=== PATIENT | male | born 1960 | race Caucasian/White ===

== ENCOUNTER → 2017-09-11 10:12 | Outpatient (CLI) | payer OTHER, SELFPAY ==
[2017-09-11 13:06] LABS: Absolute Lymphocyte Count 1.93 X10^3/ul (0.83-4.51); Absolute Neutrophil Count 3.1 X10^3/uL (2.0-7.7); Basophil# 0.01 X10^3/uL; Basophil% 0.2 % (0-1); Eosinophil# 0.12 X10^3/uL; Eosinophils% 2.1 % (0-5); Hematocrit 45.5 % (40-54); Hemoglobin 15.2 g/dl (13.0-16.5); Lymphocyte # 1.93 X10^3/ul (4.0); Lymphocyte % 33.2 % (19-41); Mean Corp Hgb Conc 33.4 g/gl (32-36); Mean Corpuscular Hgb 31.4 pg (27.0-32.0); Mean Platelet Vol. 9.8 fl (6.2-12.0); Monocyte# 0.65 X10^3/uL; Monocyte% 11.2 % (0-10); Neutrophil % 53.1 % (47-70); Platelet Count 218 K/mm3 (150-450); RBC Distribution Width CV 13.9 % (11.6-14.6); RBC Distribution Width SD 46.4 fl (35.1-43.9); Red Blood Count 4.84 M/mm3 (4.6-6.2); White Blood Count 5.8 K/mm3 (4.4-11.0)
[2017-09-11 13:10] LABS: POSITIVE COUNT NO; POSITIVE DIFFERENTIAL NO; POSITIVE MORPHOLOGY NO
[2017-09-11 13:28] LABS: ALB/GLOB Ratio 1.1 RATIO (0.9-2.4); AST(SGOT) 15 U/L (15-37); Alanine Aminotransfer ALT/SGPT 32 U/L (16-61); Albumin, Serum 3.8 g/dL (3.2-5.0); Alkaline Phosphatase 111 U/L (45-117); Anion Gap 7 (5-15); BUN 14 mg/dL (7-18); Calcium,Total 8.7 mg/dL (8.5-10.1); Chloride 107 mmol/L (98-107); Creatinine, Serum 0.88 mg/dL (0.70-1.30); EST Glomerular Filtration Rate 95 mL/min (>60); Est Glom Filt Rate - Afr Amer 115 mL/min (>60); Globulin 3.6 g/dL (2.2-4.2); Glucose 85 mg/dL (74-106); Potassium 4.2 mmol/L (3.5-5.1); Protein, Total 7.4 g/dL (6.4-8.2); Sodium Level 141 mmol/L (136-145); Thyroid Stim Hormone (TSH) 2.11 uIU/mL (0.358-3.74)
== END ==
LOC: POLAB3 10:13
PROVIDERS: Family Provider Family Medicine Geriatric Medicine; PCP Family Medicine Geriatric Medicine; Visit Provider Family Medicine Geriatric Medicine
DX: R53.83 Other fatigue (principal)
CPT/HCPCS: 36415; 80053; 84443; 85025

== ENCOUNTER 2017-12-03 11:10 | Emergency (ER) | payer OTHER, SELFPAY ==
[2017-12-03 11:11] VITALS: BP 141/70; PULSE 116; RESP 16; TEMP 36.7; O2SAT 96; BMI 33.0
--- NOTE | 2017-12-03 11:20 | CT_ITS ---
STUDY: CT ABDOMEN AND PELVIS WITH CONTRAST - REASON FOR EXAM: Male, 57 years old. Diarrhea. RADIATION DOSAGE (If Supplied By Facility): CTDIvol = ( 17.29 ) mGy, DLP = ( 1143.79 ) mGycm TECHNIQUE: Transaxial images were obtained from the dome of the diaphragm to the symphysis pubis without oral contrast. 100ml ml of Isovue 300 contrast was administered. Multiplanar coronal and sagittal images were reformatted. CT venogram protocol utilized, with delayed images performed during venous phase. Individualized Dose Optimization Techniques Were Used For This CT. COMPARISON: Comparison is made with prior study dated January 22, 2017. FINDINGS: Minimal degree of dependent bibasilar atelectasis. The visualized portions of the heart are within normal limits. Normal liver. There are surgical clips in the gallbladder fossa consistent with a prior cholecystectomy. Pneumobilia seen in the left intrahepatic biliary ducts. This is a normal post cholecystectomy finding. There are multiple benign calcified granulomata of the spleen. Normal pancreas. There is a small, circumscribed, smooth, low attenuation left adrenal mass, consistent with an adrenal adenoma. This measures 2.1 cm. This is unchanged. Normal right adrenal gland. Normal right kidney. 1.8 cm cyst in the posterior superior aspect of the left kidney. There is a small hiatal hernia. Normal small intestine. Diffuse circumferential wall thickening of the colon. This is suggestive of colitis. Fluid filled nondistended small bowel loops are seen more prominent in the region of the terminal ileum. Scattered sigmoid diverticula. The appendix is visualized and appears normal. There is scattered atherosclerotic calcification of the abdominal aorta, without a demonstrated aneurysm. No retroperitoneal adenopathy. IVC is patent. Normal urinary bladder. There is a left-sided inguinal hernia containing adipose tissue. There are diffuse degenerative changes of the visualized lumbar spine. CT/Abdomen/Pelvis W IV Cont ONLY IMPRESSION: Findings suggestive of diffuse colitis. Electronically Signed: Dorian Chauhan MD at 12:39 EDT Tel [phone], Service support ,
--- NOTE | 2017-12-03 11:28 | ED.DCSUM_ITS ---
- ER Visit Summary Date of Service: 12/03/17 Chief Complaint: Abdominal cramping, diarrhea History of Present Illness: The patient is a 57 M E of sick sinus syndrome status post permanent pacemaker placement presents with abdominal cramping. Patient states he began to have loose watery diarrhea 4 days ago. He states he had some chills and myalgias. He is unsure if he had a fever, but has felt hot and cold. Over the past 2 days, he has had some worsening pain into his left lower quadrant. He states it feels similar to when he had diverticulitis before. He states that he was just having increasing discomfort and cannot get the diarrhea stopped. He has no history of C. difficile. He denies any recent antibiotic use. Denies any recent travel. Only past surgical history is inguinal hernia with mesh repair. He is not on anticoagulants. He denies any blood in his bowel movements. Physical Examination: Vital signs reviewed General: Well-nourished, well-developed Head: Normocephalic, atraumatic Eyes: Pupils equal and reactive, extraocular muscles intact Neck, supple, no lymphadenopathy Heart: Regular rate and rhythm Respiratory: No distress, clear bilaterally Abdomen: Soft, mildly tender in the left lower quadrant without rebound or guarding, nondistended, no peritoneal signs Back: Nontender Extremities: Nontender, no edema, no cords Skin: Normal color no rash Neuro: Alert and oriented, no focal or lateralizing deficits Test Results: [] Emergency Department Course and Treatment: The patient has had no rectal bleeding. IV was established. He was given fluids and antiemetics. He declined analgesics. He did have improvement with Toradol. Screening labs do show volume contraction and a mild leukocytosis. Lactate was normal. Patient underwent CT which does show colitis. I did discuss options with the patient. He wants to attempt outpatient therapy. He has not had vomiting. He has been nauseated but is tolerating oral here. He will be started on Cipro and Flagyl given his first dose here. I do feel that he is safe for outpatient therapy. I did day camp counselor him that if things change, his pain worsens, he starts to vomit, he has fever, or is not improving in the next 24-48 hours needs to return immediately. He is comfortable with this plan of care. Treatment Plan: [] Disposition: Charge Impression: 1. Infectious colitis This note was generated with Dragon dictation software. It may contain incorrect words, spelling, and punctuation that were not noted in review of the chart prior to signing ED Disposition - Plan for ED Patient: Chief Complaint: Diarrhea Instructions: ED Gastroenteritis Bacterial Prescriptions: Ondansetron [Zofran Odt] 4 mg PO Q8H PRN PRN #10 tab PRN Reason: Nausea Dicyclomine HCl [Bentyl] 20 mg PO TIDAC #20 cap Metronidazole [Flagyl] 500 mg PO Q8H #21 tab Ciprofloxacin [Cipro] 500 mg PO BID #14 tab Referrals: Josef Garcia Chi, MD [Primary Care Provider] -
[2017-12-03] MEDS: 0.9% Normal Saline 1,000 ML 1000 ML IV (11:35)
[2017-12-03] MEDS: Dicyclomine 20 MG/2 ML Vial IM (11:35)
[2017-12-03] MEDS: Ketorolac 30 MG/ML Syringe IV (11:35)
[2017-12-03] MEDS: Ondansetron 4 MG/2 ML Vial IV (11:38)
[2017-12-03 11:43] LABS: Absolute Lymphocyte Count 2.48 X10^3/ul (0.83-4.51); Absolute Neutrophil Count 10.4 X10^3/uL (2.0-7.7); Basophil# 0.01 X10^3/uL; Basophil% 0.1 % (0-1); Eosinophil# 0.07 X10^3/uL; Eosinophils% 0.5 % (0-5); Lymphocyte # 2.48 X10^3/ul (4.0); Lymphocyte % 18.5 % (19-41); Mean Corp Hgb Conc 35.1 g/gl (32-36); Mean Corpuscular Hgb 31.7 pg (27.0-32.0); Mean Corpuscular Volume 90.4 fL (80-94); Mean Platelet Vol. 9.4 fl (6.2-12.0); Monocyte# 0.35 X10^3/uL; Monocyte% 2.6 % (0-10); Neutrophil % 77.9 % (47-70); Platelet Count 184 K/mm3 (150-450); RBC Distribution Width CV 13.7 % (11.6-14.6); RBC Distribution Width SD 45.1 fl (35.1-43.9); Red Blood Count 5.86 M/mm3 (4.6-6.2); White Blood Count 13.4 K/mm3 (4.4-11.0)
[2017-12-03 11:44] LABS: Hemoglobin 18.6 g/dl (13.0-16.5); POSITIVE COUNT NO; POSITIVE DIFFERENTIAL NO; POSITIVE MORPHOLOGY NO
[2017-12-03 11:55] LABS: AST(SGOT) 19 U/L (15-37); Alanine Aminotransfer ALT/SGPT 37 U/L (16-61); Albumin, Serum 4.4 g/dL (3.2-5.0); Alkaline Phosphatase 161 U/L (45-117); Anion Gap 12 (5-15); BUN 18 mg/dL (7-18); BUN/Creat Ratio 14.9 RATIO (10-20); Calcium,Total 9.1 mg/dL (8.5-10.1); Chloride 104 mmol/L (98-107); Creatinine, Serum 1.21 mg/dL (0.70-1.30); EST Glomerular Filtration Rate 66 mL/min (>60); Est Glom Filt Rate - Afr Amer 79 mL/min (>60); Estimated Creatinine Clearance 52.02 ml/min; Globulin 4.3 g/dL (2.2-4.2); Glucose 136 mg/dL (74-106); Potassium 3.3 mmol/L (3.5-5.1); Protein, Total 8.7 g/dL (6.4-8.2); Sodium Level 135 mmol/L (136-145)
--- NOTE | 2017-12-03 12:36 | ED.RN ---
lactic 2.[address] lab[address] dr mandel aware
[2017-12-03] MEDS: Ciprofloxacin 400 MG/200 ML BAG 200 MG IV (13:02)
[2017-12-03] MEDS: LORazepam 2 MG/ML Syringe 0.5 MG IV (13:02)
[2017-12-03 14:10] VITALS: BP 125/82; PULSE 96; RESP 16; O2SAT 93
[2017-12-03 16:06] LABS: Reflex Lactate? Y
== END 2017-12-03 14:42 | disposition home or self-care (01) ==
LOC: ED 12:21
PROVIDERS: Emergency Provider Emergency Medicine; Family Provider Family Medicine Geriatric Medicine; PCP Family Medicine Geriatric Medicine
DX: A09 Infectious gastroenteritis and colitis, unspecified (principal); K21.9 Gastro-esophageal reflux disease without esophagitis; Z95.0 Presence of cardiac pacemaker; Z87.891 Personal history of nicotine dependence; Z79.891 Long term (current) use of opiate analgesic; Z79.899 Other long term (current) drug therapy
CPT/HCPCS: 74177; 80053; 83605; 85025; 96361; 96365; 96372; 96375; 99283; J7030; Q9967; J0744; J2405

== ENCOUNTER → 2017-12-08 15:55 | Outpatient (CLI) | payer OTHER, SELFPAY ==
[2017-12-08 16:45] LABS: Absolute Lymphocyte Count 1.96 X10^3/ul (0.83-4.51); Absolute Neutrophil Count 3.4 X10^3/uL (2.0-7.7); Basophil# 0.01 X10^3/uL; Basophil% 0.2 % (0-1); Eosinophil# 0.09 X10^3/uL; Eosinophils% 1.5 % (0-5); Hematocrit 40.9 % (40-54); Hemoglobin 13.7 g/dl (13.0-16.5); Lymphocyte # 1.96 X10^3/ul (4.0); Lymphocyte % 32.5 % (19-41); Mean Corp Hgb Conc 33.5 g/gl (32-36); Mean Corpuscular Hgb 30.6 pg (27.0-32.0); Mean Corpuscular Volume 91.3 fL (80-94); Mean Platelet Vol. 9.3 fl (6.2-12.0); Monocyte# 0.58 X10^3/uL; Monocyte% 9.6 % (0-10); Neutrophil # 3.39 X10^3/uL (2.7-7.7); Platelet Count 186 K/mm3 (150-450); RBC Distribution Width CV 13.8 % (11.6-14.6); RBC Distribution Width SD 45.7 fl (35.1-43.9); Red Blood Count 4.48 M/mm3 (4.6-6.2)
[2017-12-08 16:51] LABS: POSITIVE COUNT NO; POSITIVE DIFFERENTIAL NO; POSITIVE MORPHOLOGY NO
[2017-12-08 17:08] LABS: ALB/GLOB Ratio 1.2 RATIO (0.9-2.4); AST(SGOT) 22 U/L (15-37); Alanine Aminotransfer ALT/SGPT 44 U/L (16-61); Albumin, Serum 3.6 g/dL (3.2-5.0); Alkaline Phosphatase 121 U/L (45-117); Anion Gap 9 (5-15); BUN 12 mg/dL (7-18); BUN/Creat Ratio 15.4 RATIO (10-20); Calcium,Total 8.5 mg/dL (8.5-10.1); Chloride 107 mmol/L (98-107); Creatinine, Serum 0.78 mg/dL (0.70-1.30); EST Glomerular Filtration Rate 109 mL/min (>60); Est Glom Filt Rate - Afr Amer 132 mL/min (>60); Glucose 90 mg/dL (74-106); PSA,Total - Annual Screen 0.76 ng/mL (0.00-4.00); Potassium 3.7 mmol/L (3.5-5.1); Protein, Total 6.6 g/dL (6.4-8.2); Sodium Level 142 mmol/L (136-145); Thyroid Stim Hormone (TSH) 1.28 uIU/mL (0.358-3.74)
== END ==
LOC: POLAB3 15:56
PROVIDERS: Family Provider Family Medicine Geriatric Medicine; PCP Family Medicine Geriatric Medicine; Visit Provider Family Medicine Geriatric Medicine
DX: R53.83 Other fatigue (principal); Z12.5 Encounter for screening for malignant neoplasm of prostate
CPT/HCPCS: 36415; 80053; 84153; 84443; 85025; G0103

== ENCOUNTER → 2017-12-18 12:58 | Outpatient (CLI) | payer OTHER, SELFPAY ==
--- NOTE | 2017-12-18 13:04 | CT_ITS ---
STUDY: LOW DOSE CT LUNG CANCER SCREENING REASON FOR EXAM: Male, 57 years old. Smoker for 40 years. Positive PPD. RADIATION DOSAGE (If Supplied By Facility): CTDIvol = ( 3.02 ) mGy, DLP = ( 97.04 ) mGycm TECHNIQUE: No contrast was administered. Low dose technique was utilized (average mAS-38 and kVp 120). 1.25 mm axial source images with a slice interval of 1.25-mm were reconstructed in lung windows. 2.5 mm axial source images with a slice interval of 2.5-mm were reconstructed in lung windows. 5.0 mm axial source images with a slice interval of 5.0-mm were reconstructed in soft tissue windows. Nodule measured using lung windows on PACS and/or independent workstation with automated measurement of minimum and maximum diameter. Nodule measurement reported as average diameter rounded to the nearest whole number. Growth is defined as an increase ins size of greater than 1.5 mm. COMPARISON: None. NODULES: Nodule: No worrisome lung nodule or mass identified. A 6.6 mm calcified nodule/granuloma is present peripherally in the right upper lobe. Emphysema: Probably there is mild emphysema. Medially mild basilar atelectasis demonstrated left side more than the right. Endobronchial lesion: None. Aorta: Within normal limits. Coronary arteries: Atherosclerotic calcification of the LAD. Heart: There is no cardiomegaly. Left subclavian intracardiac pacemaker leads are seen in place. Pulmonary artery: Within normal limits. Mediastinal nodes: Calcified right paratracheal and multiple right hilar lymph nodes are present from old granulomatous process. Other chest and abdominal findings: There is mid/lower thoracic disc/endplate degenerative spondylosis. Increased thoracic kyphosis. Small left renal calculus. Calcified granuloma of the spleen. Fatty liver. CT/Low Dose CT Lung Screening IMPRESSION: Lung-RADS category 2 - Continue annual screening with LDCT in 12 months. IMPORTANT NOTES FOR USE: ACR Lung-RADS Version 1.0 Assessment Categories Release Date: November 14, 2013 Category: Coded 0-4 bases on nodule(s) with highest degree of suspicion. Negative screen is defined as categories 1 and 2; a positive screen is defined as categories 3 and 4. Category 3 and 4A nodules that are unchanged on interval CT should be coded as category 2, and individuals returned to screening in 12 months. Category 4X: Category 3 or 4 nodules with additional imaging findings that increase the suspicion of lung cancer, such as spiculation, GGN that doubles in size in 1 year, enlarged lymph notes, etc. Category Modifiers: S (significant finding unrelated to lung cancer) and C (prior history of treated lung cancer) may be added to the 0-4 Lung-RADS Electronically Signed: Luis Grace MD at 9:51 EDT Tel , Service support ,
--- NOTE | 2017-12-18 13:10 | RAD_ITS ---
STUDY: X-RAY - LUMBAR SPINE REASON FOR EXAM: Male, 57 years old. Pain across the lower back and hips TECHNIQUE: 5 view(s) of the lumbar spine were obtained. COMPARISON: 09/11/2015 FINDINGS: Normal lumbar lordosis. There is no substantial scoliosis. There is a normal alignment of the vertebrae. There is multilevel endplate spondylosis of the lumbar vertebrae. There is loss of disc space at essentially all lumbar levels but particularly at L2-L3, L3-L4, L4-L5 and L5-S1. Moderate facet arthropathy at L4-L5 and L5-S1. There is no demonstrated fracture. There is no demonstrated spondylolysis of the pars interarticulares. There is atherosclerotic calcification of the abdominal aorta without a demonstrated aneurysm. RAD/L/S Spine Min 4 Views IMPRESSION: 1. Multilevel degenerative disc disease and facet arthropathy, similar since 2015 Electronically Signed: Denton Lassiter MD at 8:43 EDT , Service support ,
== END ==
PROVIDERS: Family Provider Family Medicine Geriatric Medicine; PCP Family Medicine Geriatric Medicine; Visit Provider Family Medicine Geriatric Medicine
DX: M54.5 Low back pain (principal); Z87.891 Personal history of nicotine dependence; Z12.2 Encounter for screening for malignant neoplasm of respiratory organs
CPT/HCPCS: 72110; G0297

== ENCOUNTER → 2018-01-08 13:50 | Outpatient (CLI) | payer OTHER, SELFPAY ==
[2018-01-11 15:08] LABS: Alternaria alternata <0.10 kU/L (Class 0); Bermuda Grass <0.10 kU/L (Class 0); Bluegrass, Kentucky <0.10 kU/L (Class 0); Cat Hair/Dander, Standard <0.10 kU/L (Class 0); D farinae Mite 0.15 kU/L (Class 0/I); D pteronyssinus 0.13 kU/L (Class 0/I); Dog Epithelia <0.10 kU/L (Class 0); Elm, American White <0.10 kU/L (Class 0); Immunoglobulin A 165 mg/dL (90-386); Immunoglobulin G 800 mg/dL (700-1600); Immunoglobulin M 72 mg/dL (20-172); Oak, White <0.10 kU/L (Class 0); Plantain, English <0.10 kU/L (Class 0); Ragweed, Short/Common <0.10 kU/L (Class 0)
[2018-01-11 17:43] LABS: Immunoglobulin E 185 IU/mL (0-100)
[2018-01-12 11:59] LABS: Mouse Urine <0.10 kU/L (Class 0)
== END ==
PROVIDERS: Family Provider Family Medicine Geriatric Medicine; PCP Family Medicine Geriatric Medicine; Visit Provider Family Medicine Geriatric Medicine
DX: L20.89 Other atopic dermatitis (principal)
CPT/HCPCS: 36415; 82784; 82785; 86003

== ENCOUNTER → 2018-02-04 20:26 | Outpatient (CLI) | payer MEDICARE, SELFPAY | PROVIDERS: Family Provider Family Medicine Geriatric Medicine; PCP Family Medicine Geriatric Medicine; Visit Provider Family Medicine Geriatric Medicine | DX: G47.30 Sleep apnea, unspecified (principal) | CPT/HCPCS: 95810 ==

== ENCOUNTER → 2018-04-06 16:36 | Outpatient (CLI) | payer MEDICARE, SELFPAY ==
--- NOTE | 2018-04-06 16:40 | RAD_ITS ---
STUDY: X-RAY - LEFT ANKLE REASON FOR EXAM: Male, 57 years old. Trauma TECHNIQUE: 3 view(s) of the ankle. COMPARISON: None. FINDINGS: Normal visualized distal tibia There appears to be very tiny hairline or cortical avulsion fracture of the fibular plafond. Normal medial and lateral malleoli. Normal tibiotalar articulation and ankle mortise. Normal visualized talus. Small plantar calcaneal spur. The visualized subtalar, talonavicular, calcaneocuboid and tarsal articulations are normal. There is soft tissue swelling overlying the lateral malleolus. RAD/Ankle min 3 Views IMPRESSION: Lateral malleolus soft tissue swelling and tiny fracture of the distal fibular plafond Electronically Signed: Jak Gomez MD at 17:41 EDT , Service support ,
== END ==
LOC: RAD 16:38
PROVIDERS: Family Provider Family Medicine Geriatric Medicine; PCP Family Medicine Geriatric Medicine; Visit Provider Family Medicine Geriatric Medicine
DX: M25.572 Pain in left ankle and joints of left foot (principal)
CPT/HCPCS: 73610

== ENCOUNTER → 2018-05-25 17:24 | Outpatient (CLI) | payer MEDICARE, SELFPAY | PROVIDERS: Family Provider Family Medicine Geriatric Medicine; PCP Family Medicine Geriatric Medicine; Referring Provider Family Medicine Geriatric Medicine; Visit Provider Family Medicine Geriatric Medicine | DX: R68.83 Chills (without fever) (principal) | CPT/HCPCS: 87633 ==

== ENCOUNTER → 2018-05-31 10:44 | Outpatient (CLI) | payer MEDICARE, SELFPAY ==
[2018-05-31 12:42] LABS: Absolute Lymphocyte Count 1.52 X10^3/ul (0.83-4.51); Eosinophil# 0.08 X10^3/uL; Eosinophils% 1.3 % (0-5); Hematocrit 43.9 % (40-54); Hemoglobin 14.5 g/dl (13.0-16.5); Lymphocyte # 1.52 X10^3/ul (4.0); Lymphocyte % 24.8 % (19-41); Mean Platelet Vol. 9.7 fl (6.2-12.0); Monocyte# 0.55 X10^3/uL; Neutrophil # 3.97 X10^3/uL (2.7-7.7); Neutrophil % 64.7 % (47-70); Platelet Count 271 K/mm3 (150-450); RBC Distribution Width CV 13.3 % (11.6-14.6); RBC Distribution Width SD 44.1 fl (35.1-43.9); Red Blood Count 4.67 M/mm3 (4.6-6.2); White Blood Count 6.1 K/mm3 (4.4-11.0)
[2018-05-31 12:43] LABS: POSITIVE COUNT NO; POSITIVE DIFFERENTIAL NO; POSITIVE MORPHOLOGY NO
[2018-05-31 13:05] LABS: AST(SGOT) 17 U/L (15-37); Alanine Aminotransfer ALT/SGPT 31 U/L (16-61); Albumin, Serum 3.8 g/dL (3.2-5.0); Alkaline Phosphatase 112 U/L (45-117); Anion Gap 6 (5-15); BUN 15 mg/dL (7-18); BUN/Creat Ratio 16.4 RATIO (10-20); Calcium,Total 8.9 mg/dL (8.5-10.1); Chloride 104 mmol/L (98-107); Creatinine, Serum 0.91 mg/dL (0.70-1.30); EST Glomerular Filtration Rate 91 mL/min (>60); Est Glom Filt Rate - Afr Amer 110 mL/min (>60); Globulin 3.7 g/dL (2.2-4.2); Glucose 104 mg/dL (74-106); Potassium 3.9 mmol/L (3.5-5.1); Protein, Total 7.5 g/dL (6.4-8.2); Sodium Level 139 mmol/L (136-145); Thyroid Stim Hormone (TSH) 1.05 uIU/mL (0.358-3.74)
[2018-05-31 14:51] LABS: Vitamin D,25 Hydroxy 20.8 ng/mL (29.95-100.01)
== END ==
PROVIDERS: Family Provider Family Medicine Geriatric Medicine; PCP Family Medicine Geriatric Medicine; Visit Provider Family Medicine Geriatric Medicine
DX: E55.9 Vitamin D deficiency, unspecified (principal); R53.83 Other fatigue
CPT/HCPCS: 36415; 80053; 82306; 84443; 85025

== ENCOUNTER → 2018-09-16 10:12 | Outpatient (CLI) | payer MEDICARE, SELFPAY ==
[2018-09-16 12:45] LABS: Erythrocyte Sedimentation Rate 33 mm/hr (0-20)
[2018-09-16 12:57] LABS: Absolute Lymphocyte Count 1.49 X10^3/ul (0.83-4.51); Absolute Neutrophil Count 4.3 X10^3/uL (2.0-7.7); Basophil# 0.01 X10^3/uL; Basophil% 0.2 % (0-1); Eosinophil# 0.09 X10^3/uL; Eosinophils% 1.4 % (0-5); Hematocrit 46.8 % (40-54); Hemoglobin 15.1 g/dl (13.0-16.5); Lymphocyte # 1.49 X10^3/ul (4.0); Lymphocyte % 22.4 % (19-41); Mean Corp Hgb Conc 32.3 g/gl (32-36); Mean Corpuscular Hgb 30.1 pg (27.0-32.0); Mean Corpuscular Volume 93.2 fL (80-94); Mean Platelet Vol. 10.2 fl (6.2-12.0); Monocyte# 0.76 X10^3/uL; Monocyte% 11.4 % (0-10); Neutrophil # 4.28 X10^3/uL (2.7-7.7); Neutrophil % 64.4 % (47-70); Platelet Count 252 K/mm3 (150-450); RBC Distribution Width CV 14.4 % (11.6-14.6); RBC Distribution Width SD 48.7 fl (35.1-43.9); Red Blood Count 5.02 M/mm3 (4.6-6.2); White Blood Count 6.6 K/mm3 (4.4-11.0)
[2018-09-16 12:58] LABS: POSITIVE COUNT NO; POSITIVE DIFFERENTIAL NO; POSITIVE MORPHOLOGY NO
[2018-09-16 13:09] LABS: Anion Gap 8 (5-15); BUN 15 mg/dL (7-18); BUN/Creat Ratio 17.3 RATIO (10-20); Calcium,Total 9.1 mg/dL (8.5-10.1); Chloride 105 mmol/L (98-107); Creatinine, Serum 0.87 mg/dL (0.70-1.30); EST Glomerular Filtration Rate 96 mL/min (>60); Est Glom Filt Rate - Afr Amer 117 mL/min (>60); Glucose 100 mg/dL (74-106); Potassium 4.4 mmol/L (3.5-5.1); Rheumatoid Factor < 10.0 IU/mL (<15); Sodium Level 139 mmol/L (136-145)
== END ==
PROVIDERS: Family Provider Family Medicine Geriatric Medicine; PCP Family Medicine Geriatric Medicine; Visit Provider Family Medicine Geriatric Medicine
DX: M10.9 Gout, unspecified (principal)
CPT/HCPCS: 36415; 80048; 85025; 85652; 86140; 86431

== ENCOUNTER 2018-11-18 03:52 | Emergency (ER) | payer MEDICARE, SELFPAY ==
[2018-11-18 03:53] VITALS: BP 155/79; PULSE 90; RESP 18; TEMP 37.1; O2SAT 97; BMI 34.2
--- NOTE | 2018-11-18 04:05 | EKG12_ITS ---
Test Reason : EDEMA Blood Pressure : / mmHG Vent. Rate : 080 BPM Atrial Rate : 080 BPM P-R Int : 128 ms QRS Dur : 086 ms QT Int : 358 ms P-R-T Axes : 032 000 017 degrees QTc Int : 412 ms Normal sinus rhythm Normal ECG Confirmed by VLADISLAV COLEMAN ([id number]), editor department HERVE TRINIDAD ([id number]) on 11/22/2018 1:56:07 PM Referred By: KRISTEN Confirmed By:HUBERT COLEMAN
[2018-11-18] MEDS: HYDROcodone Bitartrate/Apap 5/325 Tablet PO ×2 (04:08→05:01)
[2018-11-18] MEDS: 0.9% Normal Saline 1,000 ML 1000 ML IV (04:14)
[2018-11-18] MEDS: Ketorolac 30 MG/ML Syringe IV (04:14)
[2018-11-18] MEDS: Ondansetron 4 MG/2 ML Vial IV (04:14)
[2018-11-18 04:18] VITALS: BP 107/71; PULSE 79; RESP 17; O2SAT 96
[2018-11-18 04:28] LABS: Absolute Lymphocyte Count 1.69 X10^3/ul (0.83-4.51); Basophil# 0.01 X10^3/uL; Basophil% 0.1 % (0-1); Eosinophil# 0.09 X10^3/uL; Eosinophils% 1.2 % (0-5); Hematocrit 42.5 % (40-54); Hemoglobin 14.2 g/dl (13.0-16.5); Lymphocyte # 1.69 X10^3/ul (4.0); Lymphocyte % 21.7 % (19-41); Mean Corp Hgb Conc 33.4 g/gl (32-36); Mean Corpuscular Hgb 31.2 pg (27.0-32.0); Mean Corpuscular Volume 93.4 fL (80-94); Mean Platelet Vol. 9.2 fl (6.2-12.0); Monocyte# 0.99 X10^3/uL; Monocyte% 12.7 % (0-10); Neutrophil # 4.99 X10^3/uL (2.7-7.7); Neutrophil % 64.2 % (47-70); Platelet Count 217 K/mm3 (150-450); RBC Distribution Width CV 14.9 % (11.6-14.6); RBC Distribution Width SD 49.7 fl (35.1-43.9); Red Blood Count 4.55 M/mm3 (4.6-6.2); White Blood Count 7.8 K/mm3 (4.4-11.0)
[2018-11-18 04:30] LABS: POSITIVE COUNT NO; POSITIVE DIFFERENTIAL NO; POSITIVE MORPHOLOGY NO
[2018-11-18 04:36] LABS: D-Dimer Quantitative (DVT/PE) 0.36 FEU/ug/m (0.27-0.49)
[2018-11-18 04:39] LABS: Anion Gap 8 (5-15); BUN 14 mg/dL (7-18); BUN/Creat Ratio 15.9 RATIO (10-20); Calcium,Total 8.7 mg/dL (8.5-10.1); Chloride 108 mmol/L (98-107); Creatinine, Serum 0.88 mg/dL (0.70-1.30); EST Glomerular Filtration Rate 94 mL/min (>60); Est Glom Filt Rate - Afr Amer 114 mL/min (>60); Estimated Creatinine Clearance 70.66 ml/min; Glucose 116 mg/dL (74-106); Potassium 3.8 mmol/L (3.5-5.1); Sodium Level 143 mmol/L (136-145)
--- NOTE | 2018-11-18 04:57 | ED.DCSUM_ITS ---
- ER Visit Summary Date of Service: 11/18/18 Chief Complaint: Left leg and arm pain History of Present Illness: The patient is a 58 M who presents with intermittent sharp pain to his left lower leg since 4 PM yesterday afternoon. When he was lying in bed tonight he had 3 episodes of similar pain in the left upper arm. He states it feels different than his restless legs. He has not had any recent injury or change in activity. Past history significant for sick sinus syndrome, kidney stones, restless legs. Patient does note recent history of hand pain and swelling. He states his primary care physician thinks it may be some form of a bone cancer from chronic exposure to motor oil on his hands. Physical Examination: Blood pressure is 155/79, otherwise vitals normal. Patient sitting upright in bed no acute distress. Head and neck examination unremarkable. Heart is regular rate and rhythm. Lung sounds are clear. Abdomen is soft nontender. Lower extremity examination was no reproducible tenderness. There is no calf edema or erythema. He has strong distal pulses. Normal range of motion is noted. Upper extremity examination was no reproducible tenderness in the left upper arm. Test Results: CBC and chemistry studies unremarkable. D-dimer is normal at 0.36. EKG is sinus 80 with no sign of acute ischemia. Left tib-fib x-rays are unremarkable. Emergency Department Course and Treatment: Patient is given Toradol, IV fluids, [place]. On repeat evaluation he is resting more comfortably. He states he still has pain. He will follow-up with his primary care physician later today. Treatment Plan: [] Disposition: Discharge Impression: Arthralgias This note was generated with [employer] dictation software. It may contain incorrect words, spelling, and punctuation that were not noted in review of the chart prior to signing ED Disposition - Plan for ED Patient: Disposition: Home or Assisted Living Instructions: ED Joint Pain Prescriptions: Naproxen [Naprosyn] 500 mg PO BID PRN #20 tablet Referrals: Josef Garcia Chi, MD [Primary Care Provider] - As soon as possible
--- NOTE | 2018-11-18 05:00 | RAD_ITS ---
STUDY: X-RAY - LEFT TIBIA AND FIBULA REASON FOR EXAM: Male, 58 years old. Left lower leg pain. No trauma. TECHNIQUE: 2 view(s) of the tibia and fibula were obtained. COMPARISON: Left ankle April 06, 2018. FINDINGS: Normal visualized tibia. Normal visualized fibula. The soft tissue structures are unremarkable. RAD/Tibia & Fibula 2 Views IMPRESSION: Normal x-ray examination of the tibia and fibula. Electronically Signed: Dayron Swift MD at 5:15 EDT , Service support ,
[2018-11-18 05:33] VITALS: BP 111/66; PULSE 68; RESP 18; O2SAT 96
== END 2018-11-18 05:39 | disposition home or self-care (01) ==
PROVIDERS: Emergency Provider Emergency Medicine; Family Provider Family Medicine Geriatric Medicine; PCP Family Medicine Geriatric Medicine
DX: M25.50 Pain in unspecified joint (principal); G25.81 Restless legs syndrome; Z87.442 Personal history of urinary calculi; Z72.0 Tobacco use; Z79.52 Long term (current) use of systemic steroids; Z79.899 Other long term (current) drug therapy
CPT/HCPCS: 73590; 80048; 85025; 85379; 93005; 96361; 96374; 96375; 99284; J7030; J2405

== ENCOUNTER → 2018-12-09 | Outpatient (CLI) | payer MEDICARE, SELFPAY ==
[2018-11-18 03:53] VITALS: BMI 34.2
[2018-12-09 12:39] LABS: Absolute Lymphocyte Count 1.64 X10^3/ul (0.83-4.51); Absolute Neutrophil Count 4.1 X10^3/uL (2.0-7.7); Eosinophils% 1.5 % (0-5); Hematocrit 44.7 % (40-54); Hemoglobin 14.7 g/dl (13.0-16.5); Lymphocyte # 1.64 X10^3/ul (4.0); Lymphocyte % 24.7 % (19-41); Mean Corp Hgb Conc 32.9 g/gl (32-36); Mean Corpuscular Hgb 30.2 pg (27.0-32.0); Mean Platelet Vol. 9.5 fl (6.2-12.0); Monocyte# 0.76 X10^3/uL; Monocyte% 11.4 % (0-10); Neutrophil # 4.14 X10^3/uL (2.7-7.7); Neutrophil % 62.2 % (47-70); Platelet Count 255 K/mm3 (150-450); RBC Distribution Width CV 14.5 % (11.6-14.6); RBC Distribution Width SD 47.4 fl (35.1-43.9); Red Blood Count 4.86 M/mm3 (4.6-6.2); White Blood Count 6.7 K/mm3 (4.4-11.0)
[2018-12-09 12:43] LABS: POSITIVE COUNT NO; POSITIVE DIFFERENTIAL NO; POSITIVE MORPHOLOGY NO
[2018-12-09 13:37] LABS: ALB/GLOB Ratio 1.1 RATIO (0.9-2.4); AST(SGOT) 16 U/L (15-37); Alanine Aminotransfer ALT/SGPT 27 U/L (16-61); Albumin, Serum 3.8 g/dL (3.2-5.0); Alkaline Phosphatase 112 U/L (45-117); Anion Gap 4 (5-15); BUN 11 mg/dL (7-18); BUN/Creat Ratio 11.8 RATIO (10-20); Calcium,Total 9.1 mg/dL (8.5-10.1); Chloride 106 mmol/L (98-107); Cholesterol 199 mg/dL (200); Creatinine, Serum 0.93 mg/dL (0.70-1.30); EST Glomerular Filtration Rate 88 mL/min (>60); Est Glom Filt Rate - Afr Amer 107 mL/min (>60); Globulin 3.6 g/dL (2.2-4.2); Glucose 96 mg/dL (74-106); High Density Lipoprotein 45 mg/dL; PSA,Total - Annual Screen 0.94 ng/mL (0.00-4.00); Protein, Total 7.4 g/dL (6.4-8.2); Sodium Level 137 mmol/L (136-145); Thyroid Stim Hormone (TSH) 1.41 uIU/mL (0.358-3.74); Triglycerides 77 mg/dL; Very Low Density Lipoprotein 15 mg/dL (5-40)
== END | disposition home or self-care (01) ==
LOC: POLAB3 10:49
PROVIDERS: Family Provider Family Medicine Geriatric Medicine; PCP Family Medicine Geriatric Medicine; Visit Provider Family Medicine Geriatric Medicine
DX: E78.5 Hyperlipidemia, unspecified (principal); Z12.5 Encounter for screening for malignant neoplasm of prostate; R53.83 Other fatigue
CPT/HCPCS: 36415; 80053; 80061; 84153; 84443; 85025; G0103

== ENCOUNTER → 2019-01-04 | Outpatient (CLI) | payer MEDICARE, SELFPAY ==
--- NOTE | 2019-01-04 14:31 | RAD_ITS ---
STUDY: X-RAY - RIGHT HAND REASON FOR EXAM: Male, 58 years old. Inflammatory polyarthropathy TECHNIQUE: 3 view(s) of the hand. COMPARISON: Left hand January 04, 2019 and x-ray FINDINGS: Normal radiocarpal articulation. Normal distal radioulnar joint. Normal visualized carpal bones. Normal carpal articulations Normal carpometacarpal articulation of the thumb. Normal second through fifth carpometacarpal joints. There is a hook like osteophyte within the third metacarpal with osteophyte formation at the base of the second and third and fifth metacarpals. There is narrowing and cyst at the fifth digit proximal phalanx. Normal metacarpophalangeal joint of the thumb. Normal interphalangeal joint of the thumb. There is mild degenerative change of the distal interphalangeal joint of the right hand. There is a punctate metallic foreign body within the soft tissues of the distal first digit. There is degenerative change in the metacarpal phalangeal joints as detailed above. There is slight peripheral erosions at the proximal interphalangeal joints and a sclerotic appearance of the joint spaces of the interphalangeal joints. There is second third and fifth primarily small osteophyte formation narrowing of the distal interphalangeal joints. Normal phalanges of the second through fifth fingers. There is slight angulation at the distal interphalangeal joint of the third digit much like the left hand. RAD/Hand Min 3 Views IMPRESSION: As detailed on the left hand impression there is a predominant metacarpophalangeal joint degenerative change with involvement of the interphalangeal joints and incomplete involvement of the distal interphalangeal joints. There is almost no arthritic involvement radiographically visualized of the wrist. Consider psoriatic arthritis, potentially erosive arthritis or possible rheumatoid arthritis in the appropriate laboratory setting. Electronically Signed: Cari Yee MD at 15:08 EDT Tel , Service support ,
--- NOTE | 2019-01-04 14:31 | RAD_ITS ---
STUDY: X-RAY - LEFT HAND REASON FOR EXAM: Male, 58 years old. Inflammatory polyarthropathy TECHNIQUE: 3 view(s) of the hand. COMPARISON: Right hand January 04, 2019 FINDINGS: Normal radiocarpal articulation. Normal distal radioulnar joint. Normal visualized carpal bones. Normal carpal articulations Normal carpometacarpal articulation of the thumb. Normal second through fifth carpometacarpal joints. There is degenerative change in the metacarpophalangeal joints with small osteophyte formation within the metacarpal joint of the third digit. There is a hook like osteophyte within the third digit in the metacarpal. There is minimal degenerative change at the base of the fifth proximal phalanx at the metacarpal. Normal metacarpophalangeal joint of the thumb. There is degenerative change osteophyte formation in the distal interphalangeal joint of the first digit. Normal proximal and distal phalanges of the thumb. Normal metacarpophalangeal joints of the second through fifth fingers. There is disc space narrowing and endplate sclerosis and osteophyte formation at the second third and fifth digits and to a lesser degree the fourth digit. Within the proximal interphalangeal joints there is some central narrowing and sclerosis. Normal phalanges of the second through fifth fingers. There is a sliver of metallic density within the soft tissues of the first digit. RAD/Hand Min 3 Views IMPRESSION: There is a right greater than left metacarpophalangeal joint degenerative appearance. The left hand, Includes metacarpal phalangeal joint degenerative change and distal interphalangeal joint degenerative change. As well as sclerosis and mild narrowing of the interphalangeal joints. There is slight subluxation at the distal interphalangeal joint of the third digit. Differential diagnosis includes psoriatic arthritis, seronegative arthritis, potentially erosive osteoarthritis could have this appearance, although the hallmark of osteoarthritis such is first carpometacarpal joint degenerative change is nearly absent. Could also consider rheumatoid arthritis. Electronically Signed: Cari Yee MD at 15:05 EDT Tel , Service support ,
--- NOTE | 2019-01-04 14:31 | RAD_ITS ---
STUDY: X-RAY - PELVIS REASON FOR EXAM: Male, 58 years old. Inflammatory polyarthropathy TECHNIQUE: One view of the pelvis was obtained. COMPARISON: None. FINDINGS: There is a non-specific bowel gas pattern. Normal visualized soft tissue structures. Normal bilateral iliac wings, sacroiliac joints and visualized sacrum. Normal visualized bilateral superior and inferior pubic rami. Normal pubic symphysis. Normal ischial tuberosities. Normal visualized right femoral head. Normal right acetabulum. Normal right hip joint. There is minimal enthesopathy at the level of the greater trochanter. Normal visualized left femoral head. Normal left acetabulum. Normal left hip joint. There is visualized degenerative change L4-L5 L5-S1. RAD/Pelvis 1 or 2 Views IMPRESSION: Degenerative change of the visualized lumbar spine, otherwise, Normal x-ray examination of the pelvis. Electronically Signed: Cari Yee MD at 14:51 EDT Tel , Service support ,
[2019-01-04 17:52] LABS: Erythrocyte Sedimentation Rate 6 mm/hr (0-20)
[2019-01-04 17:56] LABS: Absolute Lymphocyte Count 2.33 X10^3/ul (0.83-4.51); Absolute Neutrophil Count 4.8 X10^3/uL (2.0-7.7); Basophil# 0.01 X10^3/uL; Basophil% 0.1 % (0-1); Eosinophil# 0.27 X10^3/uL; Eosinophils% 3.3 % (0-5); Hematocrit 43.4 % (40-54); Hemoglobin 14.2 g/dl (13.0-16.5); Lymphocyte # 2.33 X10^3/ul (4.0); Lymphocyte % 28.8 % (19-41); Mean Corp Hgb Conc 32.7 g/gl (32-36); Mean Corpuscular Hgb 31.1 pg (27.0-32.0); Mean Corpuscular Volume 95.2 fL (80-94); Mean Platelet Vol. 9.6 fl (6.2-12.0); Monocyte# 0.62 X10^3/uL; Monocyte% 7.7 % (0-10); Neutrophil # 4.82 X10^3/uL (2.7-7.7); Neutrophil % 59.7 % (47-70); Platelet Count 243 K/mm3 (150-450); RBC Distribution Width CV 14.7 % (11.6-14.6); RBC Distribution Width SD 51.3 fl (35.1-43.9); Red Blood Count 4.56 M/mm3 (4.6-6.2); White Blood Count 8.1 K/mm3 (4.4-11.0)
[2019-01-04 18:06] LABS: POSITIVE COUNT NO; POSITIVE DIFFERENTIAL NO; POSITIVE MORPHOLOGY NO
[2019-01-04 18:11] LABS: ALB/GLOB Ratio 1.1 RATIO (0.9-2.4); AST(SGOT) 16 U/L (15-37); Alanine Aminotransfer ALT/SGPT 36 U/L (16-61); Albumin, Serum 3.6 g/dL (3.2-5.0); Alkaline Phosphatase 136 U/L (45-117); Anion Gap 9 (5-15); BUN 20 mg/dL (7-18); BUN/Creat Ratio 19.6 RATIO (10-20); CRP < 2.90 mg/L (0.0-3.0); Chloride 106 mmol/L (98-107); Creatinine, Serum 1.02 mg/dL (0.70-1.30); EST Glomerular Filtration Rate 80 mL/min (>60); Est Glom Filt Rate - Afr Amer 96 mL/min (>60); Globulin 3.4 g/dL (2.2-4.2); Glucose 103 mg/dL (74-106); Potassium 4.1 mmol/L (3.5-5.1); Rheumatoid Factor < 10.0 IU/mL (<15); Sodium Level 143 mmol/L (136-145)
[2019-01-06 15:10] LABS: ANTINUCLEAR ANTIBODIES DIRECT Negative (Negative)
[2019-01-10 14:09] LABS: HEPATITIS B SURFACE AG Negative (Negative); Hepatitis B Core AB IgM Negative (Negative)
[2019-01-10 15:01] LABS: CCP IgG Antibodies 3 units (0-19); HLA B27 Negative (.); Hep B Surface Antibodies Non Reactive (.)
== END | disposition home or self-care (01) ==
PROVIDERS: Family Provider Family Medicine Geriatric Medicine; PCP Family Medicine Geriatric Medicine; Referring Provider Internal Medicine Rheumatology; Visit Provider Internal Medicine Rheumatology
DX: M06.4 Inflammatory polyarthropathy (principal); M15.9 Polyosteoarthritis, unspecified
CPT/HCPCS: 36415; 72170; 73130; 80053; 81374; 85025; 86038; 86140; 86200; 86431; 86705; 86706; 86803; 87340

== ENCOUNTER → 2019-03-02 | Outpatient (CLI) | payer MEDICARE, SELFPAY ==
--- NOTE | 2019-03-02 16:00 | RAD_ITS ---
STUDY: X-RAY - UNILATERAL RIBS ( RIGHT ) WITH CHEST REASON FOR EXAM: Male, 58 years old. Pain TECHNIQUE - RIBS: 5 view(s) of the ribs. TECHNIQUE - CHEST: PA COMPARISON: None. FINDINGS - RIBS: On the oblique views, there appears to be a hairline fracture through the inferior cortex of the ninth rib proximal to the costochondral junction. FINDINGS - CHEST: The lungs are clear and expanded. Tiny calcified granuloma in right upper lobe. There is no demonstrated pleural abnormality. Normal size heart. Normal mediastinum and manda. Normal visualized pulmonary arteries. Normal visualized aortic arch and descending thoracic aorta. Pacer noted on the left with electrodes in satisfactory position Normal visualized thoracic spine. Normal visualized ribs, clavicles, and shoulders. There is no demonstrated abnormality of the visualized soft tissue structures of the upper abdomen. RAD/Ribs Uni Min 3V w/PA Chest IMPRESSION: RIBS: Hairline fracture of the right ninth rib proximal to the costochondral junction. CHEST: No acute cardiopulmonary pathology. Electronically Signed: Jak Gomez MD at 20:18 EDT , Service support ,
== END | disposition home or self-care (01) ==
LOC: RAD 15:52
PROVIDERS: Family Provider Family Medicine Geriatric Medicine; PCP Family Medicine Geriatric Medicine; Referring Provider Family Medicine Geriatric Medicine; Visit Provider Family Medicine Geriatric Medicine
DX: R07.89 Other chest pain (principal)
CPT/HCPCS: 71101

== ENCOUNTER → 2019-06-14 12:02 | Outpatient (CLI) | payer MEDICARE, SELFPAY ==
[2019-06-14 12:25] LABS: Absolute Lymphocyte Count 1.69 X10^3/uL (0.83-4.51); Absolute Neutrophil Count 4.6 X10^3/uL (2.0-7.7); Basophil# 0.01 X10^3/uL; Basophil% 0.1 % (0-1); Eosinophil# 0.06 X10^3/uL; Eosinophils% 0.8 % (0-5); Hematocrit 46.6 % (40-54); Lymphocyte # 1.69 X10^3/ul (4.0); Lymphocyte % 23.4 % (19-41); Mean Corp Hgb Conc 32.2 g/dL (32-36); Mean Corpuscular Hgb 30.7 pg (27.0-32.0); Mean Corpuscular Volume 95.5 fL (80-94); Mean Platelet Vol. 9.1 fl (6.2-12.0); Monocyte# 0.83 X10^3/uL; Monocyte% 11.5 % (0-10); NRBC Flagged by Analyzer 0 % (0-5); Neutrophil % 63.9 % (47-70); Platelet Count 242 K/mm3 (150-450); RBC Distribution Width CV 13.7 % (11.6-14.6); RBC Distribution Width SD 48.3 fl (35.1-43.9); Red Blood Count 4.88 M/mm3 (4.6-6.2); White Blood Count 7.2 K/mm3 (4.4-11.0)
[2019-06-14 12:52] LABS: ALB/GLOB Ratio 1.1 RATIO (0.9-2.4); AST(SGOT) 12 U/L (15-37); Alanine Aminotransfer ALT/SGPT 27 U/L (16-61); Alkaline Phosphatase 105 U/L (45-117); Anion Gap 5 (5-15); BUN 13 mg/dL (7-18); BUN/Creat Ratio 12.9 RATIO (10-20); Calcium,Total 9.2 mg/dL (8.5-10.1); Chloride 105 mmol/L (98-107); Cholesterol 200 mg/dL (200); Creatinine, Serum 1.01 mg/dL (0.70-1.30); EST Glomerular Filtration Rate 80 mL/min (>60); Est Glom Filt Rate - Afr Amer 97 mL/min (>60); Globulin 3.5 g/dL (2.2-4.2); Glucose 83 mg/dL (74-106); High Density Lipoprotein 49 mg/dL; Protein, Total 7.5 g/dL (6.4-8.2); Sodium Level 140 mmol/L (136-145); Thyroid Stim Hormone (TSH) 1.18 uIU/mL (0.358-3.74); Triglycerides 113 mg/dL; Very Low Density Lipoprotein 23 mg/dL (5-40)
== END ==
LOC: POLAB3 12:03
PROVIDERS: Family Provider Family Medicine Geriatric Medicine; PCP Family Medicine Geriatric Medicine; Visit Provider Family Medicine Geriatric Medicine
DX: E78.5 Hyperlipidemia, unspecified (principal); R53.83 Other fatigue
CPT/HCPCS: 36415; 80053; 80061; 84443; 85025

== ENCOUNTER 2019-07-06 10:51 | Day surgery (SDC) | payer MEDICARE, SELFPAY ==
--- NOTE | 2019-07-05 18:39 | HP.PCM_ITS ---
History and Physical Date of Admission: 07/06/19 HISTORY AND PHYSICAL ? Kenny Estrada 1960 ? REFERRING PHYSICIAN: ??Josef Garcia Chi, MD ? CHIEF COMPLAINT: ??EGD/colon consult ? HPI: The patient is a 58 year old male referred for endoscopy. ?Kenny notes a family history of colon cancer, and personal history of Johnson's esophagus.?M ost recent upper and lower endoscopy were performed 06/26/[address] Argueta. ?Patient was found to have long-segment Johnson's with no dysplasia and a small hiatal hernia. ?Repeat EGD was recommended in 2-3 years and repeat colonoscopy recommended in 5 years. ? Patient currently notes multiple abdominal complaints, including worsening acid reflux and belching, as well as some intermittent lower abdominal discomfort. ?He has also noted some loose stools and urgency/incontinence of stools. ?He has noted aggravation of symptoms with certain seasonings. ?Notes some temporary relief of symptoms after a bowel movement. ? Patient's past medical and surgical history is significant for cholecystectomy, pacemaker placement in 2012, fistulectomy. ?He denies any chest pain or shortness of breath currently. ?Denies problems with sedation in the past. ? PAST MEDICAL HISTORY PAST MEDICAL HISTORY Diagnosis Date ? Abdominal pain, left lower quadrant ? ? Arrhythmia ? ? Diarrhea ? ? Diverticulosis of colon (without mention of hemorrhage) ? ? ? PAST SURGICAL HISTORY PAST SURGICAL HISTORY Procedure Laterality Date ? ANTERIOR INTERBODY FUSION, CERVICAL ? 2007 ? C4-C5 ? COLONOSCOP W/ OR W/O BRSH SPEC ? 08/20/05 ? FISTULECT/FISTULOT, SUBMUSCULAR ? 09/01/2008 ? anterior fistula ? PACEMAKER IMPLANT ? 2012 ? [place] ANESTH,REPAIR LO ABD HERNIA NOS ? ? Umbilical hernia ? REMOVAL GALLBLADDER ? 2007 ? ? CURRENT MEDICATIONS Current Outpatient Medications Medication Sig ? Omeprazole Magnesium 20 mg tablet Take 1 tablet by mouth once daily. ? omeprazole (PRILOSEC) 20 mg capsule Take 1 capsule by mouth once daily. ? meloxicam (MOBIC) 7.5 mg tablet Take 7.5 mg by mouth once daily. ? gabapentin (NEURONTIN) 300 mg capsule Take 300 mg by mouth three times daily. ? traMADol (ULTRAM) 50 mg tablet Take 50 mg by mouth twice daily. ? temazepam (RESTORIL) 15 mg ORAL Cap Take one(1) tablet daily at bedtime. ? No current facility-administered medications for this visit.? ? ALLERGIES:?Morphine; Percocet [Oxycodone-Acetaminophen] ? PERSONAL HISTORY:? SOCIAL HISTORY Social History ? Tobacco Use ? Smoking status: Current Every Day Smoker ? ? Packs/day: 1.00 ? ? Years: 40.00 ? ? Pack years: 40.00 ? ? Types: Cigarettes ? ? Start date: 07/20/1974 ? Smokeless tobacco: Never Used Substance Use Topics ? Alcohol use: Yes ? ? Comment: a few times a year ? Drug use: No ? FAMILY HISTORY:? FAMILY HISTORY FAMILY HISTORY Problem Relation Age of Onset ? Colon Cancer Mother 80 ? Hypertension Mother ? ? Breast Cancer Sister ? ? REVIEW OF SYMPTOMS: ??The review of systems data was entered by the nurse and reviewed by me ? Nursing Notes: Kelley Carter LPN ?06/15/2019 ?3:35 PM ?Signed REVIEW OF SYSTEMS: ?General:???The patient denies fatigue, denies weight loss, denies weight gain, denies feeling hot, and denies feelings of cold. ?Eyes: ?The patient denies glaucoma, denies eye injury/surgery, wears glasses or contacts. ?Ear/Nose/Throat: ?The patient denies allergies, denies hayfever, denies ear infections, and denies bloody noses. ?Cardiovascular: ?The patient NOTES chest pain, NOTES heart disease, denies high blood pressure,denies cardiac stent, denies prior heart attack, denies irregular heart beat, denies high cholesterol, ?denies poor circulation, denies heart failure, other cardiac issues, NOTES claudication, denies cold feet, denies peripheral arterial stent. ?Respiratory: ?The patient denies tuberculosis, NOTES pneumonia, denies frequent cough, denies pulmonary embolism, NOTES shortness of breath, and denies coughing up blood. ?Gastrointestinal: ?The patient denies difficulty swallowing, NOTES acid reflux, denies ulcers, denies vomiting, denies jaundice/hepatitis, denies gallbladder problems, NOTES black or tarry stools, denies hemorrhoids, denies bleeding from rectum, denies diverticulitis, denies constipation, denies diarrhea, NOTES loss of stool control, and denies hernias. ?Kidney/Bladder: ?The patient denies kidney stones, denies urine infections, and denies bloody urine. ?Skin: ?The patient denies a history of skin cancer, denies bleeding/changing moles, and denies a history of skin rash. ?Neurologic: ?The patient denies a history of epilepsy/convulsions, denies headaches, NOTES head/spinal injuries, and denies stroke/TIA. ?Psychiatric: ?The patient denies psychiatric medications, denies depression, and denies voices, denies substance abuse. ?Endocrine: ?The patient denies thyroid disorders, denies diabetes, and denies hormonal problems. ?Hematologic: ?The patient denies a history of bruising, denies bleeding, and denies anemia, denies blood clots. ?Infections: ?The patient denies a history of measles and mumps, denies rheumatic fever, and denies sexually transmitted diseases. ?Musculoskeletal: ?The patient NOTES back pain/injury, NOTES back problems, denies sciatica, NOTES knee/foot trouble, NOTES arthritis, or denies gout. ? ? When was patient's last Mammogram screening? N/A ? ?Last Colonoscopy: ?2014 ? Kelley Carter LPN? I have confirmed and edited as necessary, the PFSH and ROS obtained by others. ? ? PHYSICAL EXAMINATION: ? General: ?The patient is 58 year old male, well nourished, well hydrated in no acute distress. ?The patient is oriented to time, place, and person. ? VITALS:?Blood pressure 124/62, pulse 94, temperature 36.6 ?C (97.9 ?F), temperature source Temporal, resp. rate 20, weight 86.6 kg (191 lb), SpO2 96 %.?There is no height or weight on file to calculate BMI.? ? HEENT: ?Normal cephalic, ataumatic, pupils are equally round, sclera are anicteric, mucous membranes are moist, oropharynx is clear. ?Neck has no masses, asymmetry or lymphadenopathy. ? ? Respiratory: ?Clear to auscultation and percussion. ?Normal respiratory excursion and pattern. ? Cardiac: ?Examination is regular rate and rhythm. ?Normal S1/S2 ? Abdominal exam: ?Soft, nontender, ?with no palpable masses. ?No hepatosplenomegaly. ?No palpable hernias. ? Extremities: ?no clubbing, cyanosis or edema. ?No adenopathy. ? LABORATORY VALUES: As Noted ? RADIOLOGIC STUDIES: ?As Noted ? ? Assessment ? IMPRESSION:?abdominal pain, acid reflux, belching, history of tobacco use- recommend EGD and colonoscopy. ?Pacemaker in place, will need MAC in hospital setting ? PLAN: ?I have reviewed my findings with the surgeon. ?Will plan for upper and lower?endoscopy. ??We discussed the risks and benefits of the planned endoscopy. ?I have informed the patient that complications can occur including failure to complete the endoscopy and perforation. ?The patient had the opportunity to ask questions concerning the planned endoscopy. ?My staff has also explained the procedure to the patient in understandable terms and has given the patient printed material concerning the procedure. ?The patient freely consents to surgery. ? I plan to use?Golytely?bowel preparation ? The patient has medical comorbidities for which we will plan for the procedure to be performed under Monitored Anesthetic Care. ? ? Diagnoses:?(R10.84) Generalized abdominal pain ?(primary encounter diagnosis) (R19.4) Change in bowel habits (R19.5) Loose stools (R14.2) Belching (K22.70) 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 (Z95.0) Pacemaker ? ? Joyce Carpenter PA-C
[2019-07-06 11:23] VITALS: BP 118/91; PULSE 76; RESP 15; TEMP 36.3; O2SAT 98; BMI 33.8
[2019-07-06] MEDS: Lactated Ringers 1,000 ML 100 ML IV (11:35)
--- NOTE | 2019-07-06 12:00 | IMM_PTH ---
PATIENT: BILL LICEA LOC: EN U#:[id number] AGE/SX: 58/M ROOM: RE07/06/[address]: Dr. Humza Argueta MD : 1960 BED: DIS: 07/06/2019 SPEC #: [id number] RECD: 07/07/19 09:32 STATUS: YUMIKO RESamy #: [id number] TERRY: 07/06/19 12:[address]: Humza Argueta DEPT: IMMUNOHISTOCHEMISTRY RECD BY: Tammi Schwartz ENTERED: 07/07/19 09:33 SP TYPE: IMMUNO OTHR DR: MD Josef eD La Paz Chi, Chi, MD Tissues: A - Stomach, NOS Procedures: H Pylori (initial) PHYSICIAN & INSTITUTION [address] [address] SPECIMEN INFORMATION: Tissue Source: A - Antrum biopsy Clinical Info: Johnson's esophagitis; history colon polyps Specimen Number: [id number] CPT code: 13129 METHODOLOGY: Deparaffinized sections of prefer/formalin-fixed tissue or PAP/DQ stained slides are incubated with monoclonal/polyclonal antibodies/oligonucleotide probes. Localization is made via biotin free immunoperoxidase method. Appropriate controls are performed and reacted as expected. Results on target cell population are indicated in the following table: RESULTS: ANTIBODY / CLONE RESULT Block A H Pylori (polyclonal) negative These tests were developed and their performance characteristics determined by [facility]. They may not have been cleared or approved by the U.S. Food and Drug Administration. The FDA has determined that such clearance or approval is not necessary. INTERPRETATION: A. Antrum biopsy: Negative for Helicobacter pylori organisms. SJ:catrachita 07/08/19
--- NOTE | 2019-07-06 12:00 | EGD_PTH ---
PATIENT: BILL LICEA LOC: EN U#:[id number] AGE/SX: 58/M ROOM: RE07/06/[address]: Dr. Humza Argueta MD : 1960 BED: DIS: 07/06/2019 SPEC #: [id number] RECD: 07/06/19 15:37 STATUS: YUMIKO KETURAH #: [id number] TERRY: 07/06/19 12:[address]: Humza Argueta DEPT: SURGICAL PATHOLOGY RECD BY: Loc Soares ENTERED: 07/07/19 09:09 SP TYPE: EGD BIOPSY OTHR DR: MD Josef De La Paz Chi, Chi, MD Tissues: A - Gastric mucous membrane B - Esophageal mucous membrane C - Esophageal mucous membrane D - Cecum, NOS E - Transverse colon F - Descending colon Procedures: Special Stain Group II Surgery Specimen Level IV Alcian Blue/PAS (control) HEADER OPERATION: Colonoscopy, [place] [place] PRE-OP DIAGNOSIS: Johnosn's esophagitis, history colon polyps TISSUE SUBMITTED: A - Antrum biopsy for H. pylori and path, B - Distal esophagus biopsy, C - 2 cm over distal esophagus biopsy, D - Cecum polyp, E - Transverse polyp, F - Descending colon polyp MICROSCOPIC DIAGNOSIS A. Antrum biopsy: Mild gastritis. See microscopic description and comment. B. Distal esophagus, biopsy: Fragments of gastroesophageal mucosa with intestinal metaplasia (goblet cell metaplasia), consistent with Johnson's esophagus. Mild chronic inflammation. See comment. C. 2 cm over distal esophagus, biopsy: Fragments of gastroesophageal mucosa with intestinal metaplasia (goblet cell metaplasia), consistent with Johnson's esophagus. Mild chronic inflammation. See comment. D. Cecum polyp, biopsy: Fragments of tubular adenoma. E. Transverse colon polyp, biopsy: Tubular adenoma. F. Descending colon polyp, biopsy Tubular adenoma. SJ:catrachita 07/08/19 COMMENT A. The results of immunohistochemistry for Helicobacter pylori will be reported separately ([id number]). B & C. Alcian blue/PAS stain with matched control is used in the evaluation of the specimen. MICROSCOPIC DESCRIPTION Slides are reviewed. A. The specimen shows fragments of gastric mucosa with chronic inflammatory cell infiltrates in the lamina propria consisting of lymphocytes and plasma cells, consistent with mild chronic gastritis. GROSS DESCRIPTION A - Received in fixative is one container labeled with the patient's name and designated antrum biopsy. The specimen consists of one irregular fragment of light edwards soft tissue that measures 0.3 x 0.3 x 0.1 cm. The specimen is totally submitted in one cassette. B - Received in fixative is one container labeled with the patient's name and designated distal esophagus biopsy. The specimen consists of two irregular fragments of light edwards soft tissue that in aggregate measure 0.6 x 0.3 x 0.1 cm. The specimen is totally submitted in one cassette. C - Received in fixative is one container labeled with the patient's name and designated 2 cm over distal esophagus biopsy. The specimen consists of multiple irregular fragments of light edwards soft tissue that in aggregate measure 1 x 0.3 x 0.1 cm. The specimen is totally submitted in one cassette. D - Received in fixative is one container labeled with the patient's name and designated cecum polyp. The specimen consists of multiple irregular fragments of light edwards soft tissue that in aggregate measure 1.2 x 0.2 x 0.1 cm. The specimen is totally submitted in one cassette. E - Received in fixative is one container labeled with the patient's name and designated transverse polyp. The specimen consists of a piece of edwards-pink polyp measuring 0.5 x 0.2 x 0.2 cm. The specimen is totally submitted in one cassette. F - Received in fixative is one container labeled with the patient's name and designated descending colon polyp. The specimen consists of two irregular fragments of light edwards soft tissue that in aggregate measure 0.4 x 0.2 x 0.1 cm. The specimen is totally submitted in one cassette. / SJ:rg 07/07/19 TC:1 CPT: 68941 x6, 96128 x2
--- NOTE | 2019-07-06 12:41 | OP.EGD_ITS ---
Patient Name: Kenny Estrada Procedure Date: 07/06/2019 11:58 AM Date of : 1960 Age: 58 Procedure: Upper GI endoscopy Indications: Follow-up of Johnson's esophagus Providers: Humza Argueta MD Referring MD: Josef Garcia MD Medicines: Monitored Anesthesia Care Patient Profile: This is a 58 year old male. Refer to note in patient chart for documentation of history and physical. Complications: No immediate complications. Procedure: Pre-Anesthesia Assessment: - Prior to the procedure, a History and Physical was performed, and patient medications and allergies were reviewed. The patient is competent. The risks and benefits of the procedure and the sedation options and risks were discussed with the patient. All questions were answered and informed consent was obtained. Patient identification and proposed procedure were verified by the physician, the nurse and the fisher swordfish in the procedure room. Mental Status Examination: alert and oriented. Airway Examination: normal oropharyngeal airway and neck mobility. Respiratory Examination: clear to auscultation. CV Examination: normal. Prophylactic Antibiotics: The patient does not require prophylactic antibiotics. Prior Anticoagulants: The patient has taken Xarelto (rivaroxaban), last dose was 1 day prior to procedure. ASA Grade Assessment: III - A patient with severe systemic disease. After reviewing the risks and benefits, the patient was deemed in satisfactory condition to undergo the procedure. The anesthesia plan was to use monitored anesthesia care (MAC). Immediately prior to administration of medications, the patient was re-assessed for adequacy to receive sedatives. The heart rate, respiratory rate, oxygen saturations, blood pressure, adequacy of pulmonary ventilation, and response to care were monitored throughout the procedure. The physical status of the patient was re-assessed after the procedure. After obtaining informed consent, the endoscope was passed under direct vision. Throughout the procedure, the patient's blood pressure, pulse, and oxygen saturations were monitored continuously. The gastroscope was introduced through the mouth, and advanced to the jejunum. The upper GI endoscopy was accomplished without difficulty. The patient tolerated the procedure well. Scope In: 12:10:46 PM Scope Out: 12:16:24 PM Total Procedure Duration Time 0 hours 5 minutes 38 seconds Findings: The examined jejunum was normal. The second portion of the duodenum was normal. The duodenal bulb was normal. The gastric antrum was normal. Biopsies were taken with a cold forceps for histology. The gastroesophageal junction was normal. There were esophageal mucosal changes consistent with short-segment Johnson's esophagus present in the lower third of the esophagus. The maximum longitudinal extent of these mucosal changes was 2 cm in length. Mucosa was biopsied with a cold forceps for histology randomly at intervals of 1.5 cm in the lower third of the esophagus. A total of 2 specimen bottles were sent to pathology. Impression: - Normal examined jejunum. - Normal second portion of the duodenum. - Normal duodenal bulb. - Normal antrum. Biopsied. - Normal gastroesophageal junction. - Esophageal mucosal changes consistent with short-segment Johnson's esophagus. Biopsied. Recommendation: - Discharge patient to home. - Resume previous diet. - Continue present medications. - Return to physician acute care nursing assistant in 1 week. Procedure Code(s): --- Professional --- 00674, Esophagogastroduodenoscopy, flexible, transoral; with biopsy, single or multiple CPT copyright 2017 [employer]. All rights reserved. The codes documented in this report are preliminary and upon ore trimmer review may be revised to meet current compliance requirements. Humza Argueta MD 07/06/2019 12:41:25 PM This report has been signed electronically. Number of Addenda: 0 Note Initiated On: 07/06/2019 11:58 AM
[2019-07-06 12:43] VITALS: BP 107/72; BP 118/91; PULSE 84; RESP 16; TEMP 36.9; O2SAT 98
--- NOTE | 2019-07-06 12:43 | OP.COLON_ITS ---
Patient Name: Kenny Estrada Procedure Date: 07/06/2019 12:16 PM Date of : 1960 Age: 58 Procedure: Colonoscopy Indications: High risk colon cancer surveillance: Personal history of colonic polyps Providers: Humza Argueta MD Referring MD: Josef Garcia MD Medicines: Monitored Anesthesia Care Patient Profile: This is a 58 year old male. Refer to note in patient chart for documentation of history and physical. Last Colonoscopy: 5 years ago. Complications: No immediate complications. Procedure: Pre-Anesthesia Assessment: - Prior to the procedure, a History and Physical was performed, and patient medications and allergies were reviewed. The patient is competent. The risks and benefits of the procedure and the sedation options and risks were discussed with the patient. All questions were answered and informed consent was obtained. Patient identification and proposed procedure were verified by the physician, the nurse and the picture copyist in the procedure room. Mental Status Examination: alert and oriented. Airway Examination: normal oropharyngeal airway and neck mobility. Respiratory Examination: clear to auscultation. CV Examination: normal. Prophylactic Antibiotics: The patient does not require prophylactic antibiotics. Prior Anticoagulants: The patient has taken Xarelto (rivaroxaban), last dose was 1 day prior to procedure. ASA Grade Assessment: III - A patient with severe systemic disease. After reviewing the risks and benefits, the patient was deemed in satisfactory condition to undergo the procedure. The anesthesia plan was to use monitored anesthesia care (MAC). Immediately prior to administration of medications, the patient was re-assessed for adequacy to receive sedatives. The heart rate, respiratory rate, oxygen saturations, blood pressure, adequacy of pulmonary ventilation, and response to care were monitored throughout the procedure. The physical status of the patient was re-assessed after the procedure. After I obtained informed consent, the scope was passed under direct vision. Throughout the procedure, the patient's blood pressure, pulse, and oxygen saturations were monitored continuously. The pediatric colonoscope was introduced through the anus and advanced to the cecum, identified by the appendiceal orifice, ileocecal valve and palpation. The colonoscopy was performed without difficulty. The patient tolerated the procedure well. The quality of the bowel preparation was good. Scope In: 12:18:34 PM Scope Withdrawal Time 0 hours 17 minutes 36 seconds Scope Out: 12:37:53 PM Total Procedure Duration Time 0 hours 19 minutes 19 seconds Findings: The perianal and digital rectal examinations were normal. Six sessile polyps were found in the descending colon, transverse colon and cecum. The polyps were medium in size. These polyps were removed with a cold snare. Resection and retrieval were complete. A few small-mouthed diverticula were found in the entire colon. The exam was otherwise without abnormality. The retroflexed view of the distal rectum and anal verge was normal and showed no anal or rectal abnormalities. Impression: - Six medium polyps in the descending colon, in the transverse colon and in the cecum, removed with a cold snare. Resected and retrieved. - Diverticulosis in the entire examined colon. - The examination was otherwise normal. - The distal rectum and anal verge are normal on retroflexion view. Recommendation: - Discharge patient to home. - Resume previous diet. - Continue present medications. - Repeat colonoscopy in 3 years for surveillance. - Return to physician assistant manager retail in 1 week. Procedure Code(s): --- Professional --- 39520, Colonoscopy, flexible; with removal of tumor(s), polyp(s), or other lesion(s) by snare technique CPT copyright 2017 [employer]. All rights reserved. The codes documented in this report are preliminary and upon corporate attorney review may be revised to meet current compliance requirements. Humza Argueta MD 07/06/2019 12:43:20 PM This report has been signed electronically. Number of Addenda: 0 Note Initiated On: 07/06/2019 12:16 PM
[2019-07-06 12:45] VITALS: BP 118/91; BP 119/67; PULSE 77; RESP 16; O2SAT 97
[2019-07-06 12:50] VITALS: BP 115/78; BP 118/91; PULSE 73; RESP 16; O2SAT 97
[2019-07-06 12:55] VITALS: BP 118/75; BP 118/91; PULSE 70; RESP 16; TEMP 36.2; O2SAT 98
[2019-07-06 13:24] VITALS: BP 118/91
== END 2019-07-06 13:27 | disposition home or self-care (01) ==
LOC: EN 10:51 → AC 10:52
PROVIDERS: Family Provider Family Medicine Geriatric Medicine; PCP Family Medicine Geriatric Medicine; Referring Provider Family Medicine Geriatric Medicine; Visit Provider Surgery
PROC: 0DJD8ZZ Inspection of Lower Intestinal Tract, Via Natural or Artificial Opening Endoscopic (ICD-10-PCS; CPT 45378; principal; 2019-07-06 11:55)
DX: K29.70 Gastritis, unspecified, without bleeding (principal); K22.70 Barrett's esophagus without dysplasia; D12.0 Benign neoplasm of cecum; D12.4 Benign neoplasm of descending colon; D12.3 Benign neoplasm of transverse colon; K57.30 Diverticulosis of large intestine without perforation or abscess without bleeding; Z86.010 Personal history of colon polyps; K21.9 Gastro-esophageal reflux disease without esophagitis; G47.30 Sleep apnea, unspecified; J44.9 Chronic obstructive pulmonary disease, unspecified; G25.81 Restless legs syndrome; K58.9 Irritable bowel syndrome, unspecified; M06.9 Rheumatoid arthritis, unspecified; Z87.19 Personal history of other diseases of the digestive system; Z90.49 Acquired absence of other specified parts of digestive tract; Z79.899 Other long term (current) drug therapy; F17.210 Nicotine dependence, cigarettes, uncomplicated
CPT/HCPCS: 43239; 45385; 88305; 88313; 88342; J7120; J2405

== ENCOUNTER → 2019-12-14 11:07 | Outpatient (CLI) | payer MEDICARE, SELFPAY ==
[2019-12-14 12:46] LABS: Absolute Lymphocyte Count 1.37 X10^3/uL (0.83-4.51); Basophil# 0.01 X10^3/uL; Basophil% 0.2 % (0-1); Eosinophil# 0.08 X10^3/uL; Eosinophils% 1.3 % (0-5); Hematocrit 43.7 % (40-54); Hemoglobin 14.1 g/dL (13.0-16.5); Lymphocyte # 1.37 X10^3/ul (4.0); Lymphocyte % 22.5 % (19-41); Mean Corp Hgb Conc 32.3 g/dL (32-36); Mean Corpuscular Hgb 31.2 pg (27.0-32.0); Mean Corpuscular Volume 96.7 fL (80-94); Mean Platelet Vol. 9.8 fl (6.2-12.0); Monocyte% 9.9 % (0-10); NRBC Flagged by Analyzer 0 % (0-5); Neutrophil # 3.99 X10^3/uL (2.7-7.7); Neutrophil % 65.6 % (47-70); Platelet Count 240 K/mm3 (150-450); RBC Distribution Width CV 14.4 % (11.6-14.6); Red Blood Count 4.52 M/mm3 (4.6-6.2); White Blood Count 6.1 K/mm3 (4.4-11.0)
[2019-12-14 13:21] LABS: ALB/GLOB Ratio 0.9 RATIO (0.9-2.4); AST(SGOT) 19 U/L (15-37); Alanine Aminotransfer ALT/SGPT 38 U/L (16-61); Albumin, Serum 3.4 g/dL (3.2-5.0); Alkaline Phosphatase 107 U/L (45-117); Anion Gap 7 (5-15); BUN 14 mg/dL (7-18); BUN/Creat Ratio 13.6 RATIO (10-20); Chloride 107 mmol/L (98-107); Creatinine, Serum 1.03 mg/dL (0.70-1.30); EST Glomerular Filtration Rate 79 mL/min (>60); Est Glom Filt Rate - Afr Amer 95 mL/min (>60); Globulin 3.6 g/dL (2.2-4.2); Glucose 115 mg/dL (74-106); PSA,Total - Annual Screen 1.19 ng/mL (0.00-4.00); Potassium 3.6 mmol/L (3.5-5.1); Sodium Level 142 mmol/L (136-145); Thyroid Stim Hormone (TSH) 1.85 uIU/mL (0.358-3.74)
== END ==
PROVIDERS: PCP Family Medicine Geriatric Medicine; Visit Provider Family Medicine Geriatric Medicine
DX: R53.83 Other fatigue (principal); Z12.5 Encounter for screening for malignant neoplasm of prostate
CPT/HCPCS: 36415; 80053; 84153; 84443; 85025; G0103

== ENCOUNTER → 2019-12-20 07:55 | Outpatient (CLI) | payer MEDICARE, SELFPAY ==
--- NOTE | 2019-12-20 08:05 | CT_ITS ---
STUDY: LOW DOSE CT LUNG CANCER SCREENING REASON FOR EXAM: Male, 59 years old. 1PPD X 45 YEARS, SHORT OF BREATH RADIATION DOSAGE (If Supplied By Facility): CTDIvol = ( 3.02 ) mGy, DLP = ( 105.71 ) mGycm TECHNIQUE: No contrast was administered. Low dose technique was utilized (average mAS-38 and kVp 120). 1.25 mm axial source images with a slice interval of 1.25-mm were reconstructed in lung windows. 2.5 mm axial source images with a slice interval of 2.5-mm were reconstructed in lung windows. 5.0 mm axial source images with a slice interval of 5.0-mm were reconstructed in soft tissue windows. Nodule measured using lung windows on PACS and/or independent workstation with automated measurement of minimum and maximum diameter. Nodule measurement reported as average diameter rounded to the nearest whole number. Growth is defined as an increase ins size of greater than 1.5 mm. COMPARISON: Comparison is made with prior examination dated December 18, 2017. NODULES: Once again, there is a 6.6 mm calcified granuloma in the peripheral posterior aspect of the right upper lobe. No other nodules are seen. Emphysema: Stable mild degree of emphysematous changes. Mild degree of the increased linear markings at the lung bases suggestive of scarring. Aorta: Atherosclerotic calcification of the aortic arch. Coronary arteries: Coronary artery calcification. Heart: A left-sided dual-chamber pacemaker is seen. Pulmonary artery: Unremarkable. Mediastinal nodes: Stable calcified right hilar and precarinal lymph nodes. Other chest and abdominal findings: Degenerative changes of the visualized dorsal spine. Stable calcified splenic granulomas. CT/Low Dose CT Lung Screening IMPRESSION: Lung-RADS category 2 - Continue annual screening with LDCT in 12 months. IMPORTANT NOTES FOR USE: ACR Lung-RADS Version 1.0 Assessment Categories Release Date: November 14, 2013 Category: Coded 0-4 bases on nodule(s) with highest degree of suspicion. Negative screen is defined as categories 1 and 2; a positive screen is defined as categories 3 and 4. Category 3 and 4A nodules that are unchanged on interval CT should be coded as category 2, and individuals returned to screening in 12 months. Category 4X: Category 3 or 4 nodules with additional imaging findings that increase the suspicion of lung cancer, such as spiculation, GGN that doubles in size in 1 year, enlarged lymph notes, etc. Category Modifiers: S (significant finding unrelated to lung cancer) and C (prior history of treated lung cancer) may be added to the 0-4 Lung-RADS Electronically Signed: Dorian Chauhan, at 9:26 EDT , Service support ,
== END ==
PROVIDERS: PCP Family Medicine Geriatric Medicine; Referring Provider Family Medicine Geriatric Medicine; Visit Provider Family Medicine Geriatric Medicine
DX: Z87.891 Personal history of nicotine dependence (principal)
CPT/HCPCS: G0297

== ENCOUNTER 2020-05-07 12:17 | Emergency (ER) | payer MEDICARE, SELFPAY ==
[2020-05-07] VITALS (7 sets, daily range): BP systolic 110–132; BP diastolic 61–82; PULSE 72–79; RESP 15–19; TEMP 36.7; O2SAT 97–98; BMI 34.9
--- NOTE | 2020-05-07 13:00 | EKG12_ITS ---
Test Reason : Blood Pressure : / mmHG Vent. Rate : 074 BPM Atrial Rate : 074 BPM P-R Int : 130 ms QRS Dur : 088 ms QT Int : 380 ms P-R-T Axes : 047 -02 008 degrees QTc Int : 421 ms Somatic/Motion Artifact Normal sinus rhythm Confirmed by ASTRID MORTENSEN, ROSELINE ([id number]), editor in chief newspaper FAUSTINA BINGHAM ([id number]) on 05/18/2020 10:00:19 AM Referred By: HARMAN Confirmed By:ROSELINE RESENDIZ MD
[2020-05-07 13:08] LABS: Absolute Lymphocyte Count 1.38 X10^3/uL (0.83-4.51); Absolute Neutrophil Count 4.2 X10^3/uL (2.0-7.7); Basophil# 0.01 X10^3/uL; Basophil% 0.2 % (0-1); Eosinophil# 0.08 X10^3/uL; Eosinophils% 1.3 % (0-5); Hematocrit 43.6 % (40-54); Hemoglobin 14.2 g/dL (13.0-16.5); Lymphocyte # 1.38 X10^3/ul (4.0); Lymphocyte % 22.2 % (19-41); Mean Corp Hgb Conc 32.6 g/dL (32-36); Mean Corpuscular Hgb 30.7 pg (27.0-32.0); Mean Corpuscular Volume 94.4 fL (80-94); Mean Platelet Vol. 9.5 fl (6.2-12.0); Monocyte# 0.48 X10^3/uL; Monocyte% 7.7 % (0-10); NRBC Flagged by Analyzer 0 % (0-5); Neutrophil # 4.23 X10^3/uL (2.7-7.7); Neutrophil % 68.1 % (47-70); Platelet Count 235 K/mm3 (150-450); RBC Distribution Width CV 13.3 % (11.6-14.6); RBC Distribution Width SD 45.9 fl (35.1-43.9); Red Blood Count 4.62 M/mm3 (4.6-6.2); White Blood Count 6.2 K/mm3 (4.4-11.0)
[2020-05-07] MEDS: Aspirin 81 MG TAB.CHEW 324 MG PO (13:21)
--- NOTE | 2020-05-07 13:22 | RAD_ITS ---
STUDY: X-RAY CHEST REASON FOR EXAM: Male, 59 years old. Chest pain x 3 days TECHNIQUE: Single AP portable view of the chest. COMPARISON: Comparison is made with prior study dated 03/02/2019. FINDINGS: EKG electrodes are seen. The lungs are clear and expanded. Stable calcified granulomas. There is no demonstrated pleural abnormality. A left-sided dual-chamber pacemaker is seen. Normal mediastinum and manda. Normal visualized pulmonary arteries. Normal visualized aortic arch and descending thoracic aorta. Normal visualized thoracic spine. Normal visualized ribs, clavicles, and shoulders. There is no demonstrated abnormality of the visualized soft tissue structures of the upper abdomen. RAD/Chest 1 View (Portable) IMPRESSION: No acute abnormality is seen. Electronically Signed: Dorian Chauhan, at 13:48 EDT , Service support ,
[2020-05-07 13:25] LABS: Anion Gap 7 (5-15); BUN 15 mg/dL (7-18); BUN/Creat Ratio 17.9 RATIO (10-20); Calcium,Total 8.9 mg/dL (8.5-10.1); Chloride 105 mmol/L (98-107); Creatinine, Serum 0.84 mg/dL (0.70-1.30); EST Glomerular Filtration Rate 99 mL/min (>60); Est Glom Filt Rate - Afr Amer 120 mL/min (>60); Estimated Creatinine Clearance 73.13 ml/min; Glucose 121 mg/dL (74-106); Potassium 3.9 mmol/L (3.5-5.1); Sodium Level 138 mmol/L (136-145)
--- NOTE | 2020-05-07 14:42 | ED.DCSUM_ITS ---
History of Present Illness Chief Complaint: Chest Pain Narrative: Patient presenting for evaluation secondary to generalized illness and chest pain. Patient reports that he has household contacts the tested positive for coronavirus. He has had about a week of illness that is been associated with a sore throat headache cough generalized malaise weakness and nausea. Patient states that that he was progressing through the illness, but in the last 2 to 3 days he has developed chest pain. This been a persistent chest pain that does not come and go. Patient also endorses that he has some shortness of breath on exertion. Patient has been tolerating p.o. He denies any underlying history of lung disease. No underlying history of heart disease. Review of systems otherwise negative. Past Medical History - Allergies and Home Meds Allergies/Adverse Reactions: Allergies morphine Adverse Reaction (Verified 05/07/20 12:17) MAKES ME MAD Primary Care Physician: Josef Garcia Chi, MD [Primary Care Provider] - Past Medical History: - - Pacemaker Surgical History: cholecystectomy, herniorrhaphy, - - cervical fusion C4-C5 Smoking Status: Heavy Smoker (>10/day) Review of Systems All systems negative except as indicated General: Reports: Malaise Eyes: Denies: Visual changes - bilaterally, Diplopia ENT: Denies: Rhinorrhea, Sore throat Cardiovascular: Reports: Chest pain Respiratory: Reports: Cough Gastrointestinal: Reports: Nausea Genitourinary: Denies: Dysuria, Hematuria, Frequency Musculoskeletal: Denies: Back pain, Extremity Pain Skin: Denies: Rash, Wounds Neurological: Denies: Headache, Weakness, Numbness Physical Exam Vital Signs/Narrative: Vital Signs Temp Pulse Resp BP Pulse Ox 05/07/20 14:18 72 19 H 112/69 98 05/07/20 13:22 79 17 116/70 98 05/07/20 13:16 97 05/07/20 12:26 98.1 F 75 15 110/61 98 05/07/20 12:21 75 15 110/61 98 05/07/20 12:18 98.1 F 74 15 110/61 98 Inital Vital Signs reviewed: Yes General: Well nourished, Well developed, Obese, No Acute Distress Head: Normocephalic, Atraumatic Eyes: Perrl, EOMI ENT: Moist mucous membranes, No rhinorrhea Neck: Supple, Nontender Cardiovascular: Regular rate, Regular rhythm, No murmurs Respiratory: No distress, CTA bilaterally, Chest nontender Abdomen: Soft, Nontender, Nondistended, Normal bowel sounds Back: Nontender, Normal Inspection Extremities: Nontender, No edema Skin: Normal color, No rash Neurological: Alert, Oriented x3, Cranial nerves II-XII grossly intact, Normal Strength, Normal Sensation Psychological: Normal affect, Normal Mood Diagnostic/Tx/Re-eval Chest X-Ray - ED: Read by ED Physician, Read by Radiologist, Chronic Changes Clinical Impression(s) from Imaging Studies Chest X-Ray 05/07/20 13:22 IMPRESSION: No acute abnormality is seen. Electronically Signed: Dorian Chauhan, at 13:48 EDT , Service support , Laboratory Data 05/07/20 05/07/20 12:31 12:31 WBC 6.2 RBC 4.62 Hgb 14.2 Hct 43.6 MCV 94.4 H MCH 30.7 MCHC 32.6 RDW Std Deviation 45.9 H RDW Coeff of Reinier 13.3 Plt Count 235 MPV 9.5 Immature Gran % (Auto) 0.500 Neut % (Auto) 68.1 Lymph % (Auto) 22.2 Moore % (Auto) 7.7 Eos % (Auto) 1.3 Baso % (Auto) 0.2 Absolute Neuts (auto) 4.2 Absolute Lymphs (auto) 1.38 Nucleated RBC % 0 Sodium 138 Potassium 3.9 Chloride 105 Carbon Dioxide 26.0 Anion Gap 7 BUN 15 Creatinine 0.84 Estim Creat Clear Calc 73.13 Est GFR (MDRD) Af Amer 120 Est GFR (MDRD) Non-Af 99 BUN/Creatinine Ratio 17.9 Glucose 121 H Calcium 8.9 Troponin I < 0.015 - EKG Initial EKG Interpretation: - - Sinus rhythm at 74 with some underlying artifact, but no evidence of acute ST changes or T changes no evidence of acute ischemia or arrhythmia. Normal VT and QTc intervals. - Medical Decision Making Patient presented secondary to chest pain and generalized illness in the setting of sick contacts with coronavirus. Send out coronavirus test was sent. Chest x-ray per radiology shows no acute pathology. CBC chemistry and troponin found to be unremarkable, EKG also shows no signs of ischemia. Patient is well- appearing, has had persistent chest pain for 3 days with a negative cardiac enzyme I do not feel that he requires admission at this point. Patient's heart score is low risk. Patient symptoms likely are stemming from a coronavirus infection. He was recommended conservative management and signs and symptoms which to return. Patient was discharged in stable condition. ED Disposition - Plan for ED Patient: Disposition: Home or Assisted Living Diagnosis: Suspected COVID-19 virus infection Instructions: ED Chest Pain NonCardiac Referrals: Josef Garcia Chi, MD [Primary Care Provider] - 3-5 Days if not improving
== END 2020-05-07 15:05 | disposition home or self-care (01) ==
LOC: ED 12:52
PROVIDERS: Emergency Provider Emergency Medicine; PCP Family Medicine Geriatric Medicine
DX: Z20.828 Contact with and (suspected) exposure to other viral communicable diseases (principal); E66.9 Obesity, unspecified; F17.200 Nicotine dependence, unspecified, uncomplicated
CPT/HCPCS: 71045; 80048; 84484; 85025; 87635; 93005; 99284; A4216; U0003

== ENCOUNTER → 2020-06-06 10:10 | Outpatient (CLI) | payer MEDICARE, SELFPAY ==
[2020-05-07 12:18] VITALS: BMI 34.9
[2020-06-06 12:04] LABS: Absolute Lymphocyte Count 1.49 X10^3/uL (0.83-4.51); Absolute Neutrophil Count 3.2 X10^3/uL (2.0-7.7); Basophil# 0.01 X10^3/uL; Basophil% 0.2 % (0-1); Eosinophil# 0.09 X10^3/uL; Eosinophils% 1.7 % (0-5); Hematocrit 45.7 % (40-54); Hemoglobin 14.3 g/dL (13.0-16.5); Lymphocyte # 1.49 X10^3/ul (4.0); Lymphocyte % 27.5 % (19-41); Mean Corp Hgb Conc 31.3 g/dL (32-36); Mean Corpuscular Hgb 29.6 pg (27.0-32.0); Mean Corpuscular Volume 94.6 fL (80-94); Mean Platelet Vol. 9.6 fl (6.2-12.0); Monocyte# 0.63 X10^3/uL; Monocyte% 11.6 % (0-10); NRBC Flagged by Analyzer 0 % (0-5); Neutrophil # 3.18 X10^3/uL (2.7-7.7); Neutrophil % 58.6 % (47-70); Platelet Count 254 K/mm3 (150-450); RBC Distribution Width CV 13.7 % (11.6-14.6); RBC Distribution Width SD 48.5 fl (35.1-43.9); Red Blood Count 4.83 M/mm3 (4.6-6.2); White Blood Count 5.4 K/mm3 (4.4-11.0)
[2020-06-06 12:34] LABS: ALB/GLOB Ratio 1.2 RATIO (0.9-2.4); AST(SGOT) 17 U/L (15-37); Alanine Aminotransfer ALT/SGPT 28 U/L (16-61); Albumin, Serum 4.1 g/dL (3.2-5.0); Alkaline Phosphatase 138 U/L (45-117); Anion Gap 3 (5-15); BUN 12 mg/dL (7-18); BUN/Creat Ratio 12.1 RATIO (10-20); Calcium,Total 9.5 mg/dL (8.5-10.1); Chloride 107 mmol/L (98-107); Creatinine, Serum 0.99 mg/dL (0.70-1.30); EST Glomerular Filtration Rate 82 mL/min (>60); Est Glom Filt Rate - Afr Amer 99 mL/min (>60); Globulin 3.5 g/dL (2.2-4.2); Glucose 113 mg/dL (74-106); Potassium 4.2 mmol/L (3.5-5.1); Protein, Total 7.6 g/dL (6.4-8.2); Sodium Level 139 mmol/L (136-145); Thyroid Stim Hormone (TSH) 1.52 uIU/mL (0.358-3.74)
== END ==
PROVIDERS: PCP Family Medicine Geriatric Medicine; Visit Provider Family Medicine Geriatric Medicine
DX: R53.83 Other fatigue (principal)
CPT/HCPCS: 36415; 80053; 84443; 85025

== ENCOUNTER → 2020-06-26 09:36 | Outpatient (CLI) | payer MEDICARE, SELFPAY ==
[2020-05-07 12:18] VITALS: BMI 34.9
--- NOTE | 2020-06-26 09:43 | VDLE_ITS ---
Reason For Study: Edema RIGHT GSV is normal. CFV is compressible, spontaneous, phasic, competent and demonstrates normal augmentation. FV is compressible, spontaneous, phasic, competent and demonstrates normal augmentation. POP V is compressible, spontaneous, phasic, competent and demonstrates normal augmentation. T/P Trunk is compressible. PTV is compressible. RT PerV is compressible. Procedure This is a venous duplex using B-mode, color flow and spectral Doppler. Exam performed in department. A preliminary report was called and/or faxed to Jose. Interpretation Summary Deep veins of the right lower extremity are patent and compressible segmentally. There is no evidence of right lower extremity deep vein thrombosis. Valvular competence appears intact within the proximal deep venous system on the right . The right great saphenous vein appears patent and compressible segmentally. Ordering Physician: Josef Garcia Referring Physician: Josef Garcia Chi Performed By: Rina Car RVT
--- NOTE | 2020-06-26 09:51 | RAD_ITS ---
STUDY: X-RAY - RIGHT KNEE REASON FOR EXAM: Male, 59 years old. Pain, edema since 06-21-20 -- NKI TECHNIQUE: 4 view(s) of the knee. COMPARISON: None. FINDINGS: Normal visualized distal femur. Normal visualized proximal tibia and fibula. Normal proximal tibiofibular articulation. Normal medial femorotibial compartment. Normal lateral femorotibial compartment. Normal patellofemoral articulation. Calcification of the medial and lateral menisci in keeping with chondrocalcinosis. Small joint effusion. Soft tissue swelling. RAD/Knee 4 or More Views IMPRESSION: Calcification of the medial and lateral menisci in keeping with chondrocalcinosis. Small joint effusion. Soft tissue swelling. Electronically Signed: Dorian Chauhan, at 10:49 EST , Service support ,
== END ==
PROVIDERS: PCP Family Medicine Geriatric Medicine; Visit Provider Family Medicine Geriatric Medicine
DX: R60.0 Localized edema (principal); M25.561 Pain in right knee; L98.9 Disorder of the skin and subcutaneous tissue, unspecified
CPT/HCPCS: 73564; 88305; 88341; 88342; 93971

== ENCOUNTER → 2020-06-26 11:43 | Outpatient (CLI) | payer MEDICARE, SELFPAY ==
[2020-05-07 12:18] VITALS: BMI 34.9
--- NOTE | 2020-06-26 | IMM_PTH ---
PATIENT: BILL LICEA LOC: [facility] U#:[id number] AGE/SX: 64/M ROOM: RE06/26/[address]: Dr. Josef Garcia MD : 1960 BED: DIS: SPEC #: [id number] RECD: 06/27/20 12:56 STATUS: YUMIKO REQ #: [id number] TERRY: 06/26/20 00:[address]: Josef Garcia Chi DEPT: IMMUNOHISTOCHEMISTRY RECD BY: Tammi Schwartz Tissues: Skin of chest Procedures: SMA (add) CD34 (add) DESMIN (add) SMM (add) MELAN-A (add) Vimentin (initial) S-100 (add) PHYSICIAN & INSTITUTION [place] [id number] SPECIMEN INFORMATION: Tissue Source: Skin lesion of chest, shave biopsy Clinical Info: L98.9 Specimen Number: [id number] CPT code: 83483, 32724 x6 METHODOLOGY: Deparaffinized sections of prefer/formalin-fixed tissue or PAP/DQ stained slides are incubated with monoclonal/polyclonal antibodies/oligonucleotide probes. Localization is made via biotin free immunoperoxidase method. Appropriate controls are performed and reacted as expected. Results on target cell population are indicated in the following table: RESULTS: ANTIBODY / CLONE RESULT Vimentin (V9) positive CD34 (QBEnd-10) negative Actin (1A4) negative Myosin (simms1) negative Desmin (CE-R-11) negative S-100 (4C4.9) negative Melan A (A103) negative These tests were developed and their performance characteristics determined by [facility]. They may not have been cleared or approved by the U.S. Food and Drug Administration. The FDA has determined that such clearance or approval is not necessary. The above immunohistochemical/dualISH markers are ordered and reviewed by the Pathologist. INTERPRETATION: Skin lesion of chest, shave biopsy: Consistent with dermatofibroma. AM:catrachita 06/28/20
--- NOTE | 2020-06-26 08:51 | LES_PTH ---
PATIENT: BILL LICEA LOC: [facility] U#:[id number] AGE/SX: 64/M ROOM: RE06/26/[address]: Dr. Josef Garcia MD : 1960 BED: DIS: SPEC #: [id number] RECD: 06/26/20 12:56 STATUS: YUMIKO KETURAH #: [id number] TERRY: 06/26/20 08:[address]: Josef Garcia Chi DEPT: SURGICAL PATHOLOGY RECD BY: Gypsy Ron Tissues: Skin of chest Procedures: Surgery Specimen Level IV HEADER OPERATION: Chest PRE-OP DIAGNOSIS: L98.9 TISSUE SUBMITTED: Chest MICROSCOPIC DIAGNOSIS Skin lesion of chest, shave biopsy: Consistent with dermatofibroma, transected at base. See comment. AM:catrachita 06/27/20 COMMENT Immunohistochemistry ([id number]) supports the above diagnosis. MICROSCOPIC DESCRIPTION Slides are reviewed. GROSS DESCRIPTION Received in fixative is one container labeled with the patient's name and designated chest. The specimen consists of a light edwards shave biopsy of skin measuring 1 x 0.6 x <0.1 cm. The specimen is submitted in its entirety in one cassette for postfixation serial sectioning. / AM:catrachita 06/26/20 TC:5 [facility]: [id number]
== END ==
PROVIDERS: PCP Family Medicine Geriatric Medicine; Visit Provider Family Medicine Geriatric Medicine
DX: L98.9 Disorder of the skin and subcutaneous tissue, unspecified (principal)
CPT/HCPCS: 88305

== ENCOUNTER → 2020-07-04 12:42 | Outpatient (CLI) | payer MEDICARE, SELFPAY ==
[2020-07-04 10:25] VITALS: BMI 33.8
[2020-07-04 13:37] LABS: CRYSTALS, BODY FLUID See PATH REV; Source- Body Fluid SYNOVIAL
[2020-07-04 13:38] LABS: Body Fluid QC Type(s) BF1Q
[2020-07-05 13:47] LABS: Pathologist Review Reviewed
== END ==
PROVIDERS: PCP Family Medicine Geriatric Medicine; Visit Provider Orthopaedic Surgery
DX: M25.561 Pain in right knee (principal)
CPT/HCPCS: 89060

== ENCOUNTER 2020-09-27 13:50 | Emergency (ER) | payer MEDICARE, SELFPAY ==
[2020-07-04 10:25] VITALS: BMI 33.8
[2020-09-27 13:51] VITALS: BP 128/59; PULSE 80; RESP 20; TEMP 36.8; O2SAT 100; BMI 33.8
--- NOTE | 2020-09-27 14:46 | CT_ITS ---
STUDY: CT ABDOMEN AND PELVIS WITH CONTRAST REASON FOR EXAM: Male, 60 years old. Pelvic and rectal pain -- IV PO Contrast RADIATION DOSAGE (If Supplied By Facility): CTDIvol = ( 14.52 ) mGy, DLP = ( 1088.85 ) mGycm TECHNIQUE: Transaxial images were obtained from the dome of the diaphragm to the symphysis pubis without oral contrast. Oral and amp; IV Gastrografin and amp; 100mL Isovue-300 was administered. Sagittal and coronal images were reconstructed. Individualized dose optimization techniques were used for this CT. COMPARISON: None. FINDINGS: The visualized lung bases demonstrate incompletely visualized density at the right base. The visualized portions of the heart are within normal limits. Normal liver. There is non-visualization of the gallbladder, which may be secondary to either contraction or a prior cholecystectomy. There are multiple benign calcified granulomata of the spleen. Normal pancreas. There is a small, circumscribed, smooth, low attenuation left adrenal mass, consistent with an adrenal adenoma. Normal right adrenal gland. Several small nonobstructing renal stones bilaterally. Small left simple cysts. No obstruction. Normal visualized stomach. Normal small intestine. Diffuse diverticulosis. Very minimal stranding at the sigmoid colon proximally may indicate early diverticulitis in the appropriate clinical setting. The appendix is visualized and appears normal. Normal abdominal aorta. Normal inferior vena cava. Normal retroperitoneum. Normal urinary bladder. Normal visualized prostate gland. Normal abdominal wall. There are diffuse degenerative changes of the visualized lumbar spine. CT/Abdomen/Pelvis WITH Contrast IMPRESSION: Diffuse diverticulosis. Very minimal stranding at the sigmoid colon proximally may indicate early diverticulitis in the appropriate clinical setting. Incompletely characterized density at the right lung base may represent pneumonia should be further assessed with dedicated thoracic imaging. Electronically Signed: Juancarlos Martin MD at 18:00 EST Tel , Service support ,
--- NOTE | 2020-09-27 14:57 | ED.VISSUMM ---
- ER Visit Summary Date of Service: 09/27/20 Chief Complaint: Muscle pain History of Present Illness: The patient is a 60 M who presents with muscle pain. He said the pain is mainly in his rectal area but also in his groin bilaterally. This is the third day, and it was so severe today that he was unable to walk because of the pain. He has been dealing with a rash to his groin recently which he thought might be yeast. Otherwise no new symptoms. No incontinence. No urinary symptoms. No GI symptoms or abdominal pain. No saddle anesthesias. No history of lumbar surgery, trauma, cancer, blood thinner use. No history of prostate issues, diabetes. Physical Examination: Afebrile and vital signs unremarkable. Alert and oriented. Appears uncomfortable. Abdomen is soft and nontender. exam shows normal penis and scrotum. No necrosis, but he does have an intertriginous rash with erythema and weeping. Rectal exam is unremarkable except for some tenderness over his perineum at the 6 o'clock position. There are no lesions, hemorrhoids, or other abnormalities. No necrosis, masses, drainage. Legs show good pulses. Good strength and sensation, symmetric. Test Results: Labs and imaging pending. Emergency Department Course and Treatment: Patient treated with fluids, pain medicine, nausea medicine while awaiting imaging and labs. Treatment Plan: [] Disposition: [] Impression: [] This note was generated with [employer] dictation software. It may contain incorrect words, spelling, and punctuation that were not noted in review of the chart prior to signing ED Disposition - Plan for ED Patient: Referrals: Josef Garcia Chi, MD [Primary Care Provider] -
[2020-09-27 15:03] VITALS: BP 125/52; PULSE 85; RESP 18; O2SAT 98
[2020-09-27] MEDS: fentaNYL 100 MCG/2 ML Ampul 50 MCG IV ×2 (15:19→17:44)
[2020-09-27] MEDS: Ondansetron 4 MG/2 ML Vial IV (15:19)
[2020-09-27 15:31] LABS: Absolute Lymphocyte Count 1.52 X10^3/uL (0.83-4.51); Basophil# 0.01 X10^3/uL; Basophil% 0.1 % (0-1); Eosinophil# 0.11 X10^3/uL; Hemoglobin 13.6 g/dL (13.0-16.5); Lymphocyte # 1.52 X10^3/ul (4.0); Mean Corp Hgb Conc 32.4 g/dL (32-36); Mean Corpuscular Hgb 30.1 pg (27.0-32.0); Mean Corpuscular Volume 92.9 fL (80-94); Mean Platelet Vol. 9.1 fl (6.2-12.0); Monocyte# 1.21 X10^3/uL; Monocyte% 11.1 % (0-10); NRBC Flagged by Analyzer 0 % (0-5); Neutrophil # 7.98 X10^3/uL (2.7-7.7); Neutrophil % 73.4 % (47-70); Platelet Count 177 K/mm3 (150-450); RBC Distribution Width SD 47.6 fl (35.1-43.9); Red Blood Count 4.52 M/mm3 (4.6-6.2); White Blood Count 10.9 K/mm3 (4.4-11.0)
[2020-09-27 15:46] LABS: Anion Gap 5 (5-15); BUN 12 mg/dL (7-18); BUN/Creat Ratio 13.8 RATIO (10-20); Calcium,Total 9.1 mg/dL (8.5-10.1); Chloride 104 mmol/L (98-107); Creatinine, Serum 0.87 mg/dL (0.70-1.30); EST Glomerular Filtration Rate 95 mL/min (>60); Est Glom Filt Rate - Afr Amer 115 mL/min (>60); Estimated Creatinine Clearance 69.73 ml/min; Glucose 91 mg/dL (74-106); Potassium 3.8 mmol/L (3.5-5.1); Sodium Level 138 mmol/L (136-145)
[2020-09-27 16:06] LABS: Bacteria 0 SEEN /hpf (None Seen); Mucous, Urine 0 SEEN /hpf (<or=2+); Red Blood Cells-Urine 0 SEEN /hpf (0-5); Squamous Epithelial Cells - UA 0 SEEN /hpf (0-5); White Blood Cells 0 SEEN /hpf (0-5)
[2020-09-27 16:09] LABS: Color, Urine Yellow (Yellow); Glucose, Dipstick Normal (Normal); Ketone-Dipstick Negative (Negative); Leukocyte Esterase-Dipstick 25 /ul (Negative); Nitrite-Dipstick Negative (Negative); Occult Blood-Urine 10 /ul (Negative); Protein-Dipstick Negative (Negative); Urine Bilirubin Dipstick Negative (Negative); Urine Clarity Clear (Clear); Urine Urobilinogen 1 mg/dl (Normal)
[2020-09-27 17:03] VITALS: BP 120/60; PULSE 71; RESP 18; O2SAT 98
--- NOTE | 2020-09-27 18:20 | RAD_ITS ---
STUDY: X-RAY CHEST REASON FOR EXAM: Male, 60 years old[address] Abnorm[address] on [address] TECHNIQUE: Frontal radiograph COMPARISON: Same day CT scan FINDINGS: Cardiac silhouette borderline enlarged. Pulmonary vascularity unremarkable. Aorta unremarkable. Left cardiac device. Cervical spinal hardware. Stable right upper lobe granuloma. Upper abdomen unremarkable. Osseous structures intact. No pneumothorax. RAD/Chest 1 View (Portable) IMPRESSION: No acute cardiopulmonary process or focal consolidation identified. Electronically Signed: Juancarlos Martin MD at 19:02 EST Tel , Service support ,
[2020-09-27] MEDS: metroNIDAZOLE 500 MG Tablet PO (18:21)
[2020-09-27] MEDS: Ciprofloxacin 500 MG Tablet PO (18:22)
[2020-09-27 19:36] VITALS: BP 133/68; PULSE 86; RESP 16
--- NOTE | 2020-09-27 19:40 | ED.DEP ---
ED Disposition - Plan for ED Patient: Instructions: ED Diverticulitis Prescriptions: Ciprofloxacin [Cipro] 500 mg PO BID #20 tab Prescription Printed metroNIDAZOLE [Flagyl] 500 mg PO Q8H #30 tab Prescription Printed Oxycodone HCl/Acetaminophen [Percocet 5/325] 1 tab PO Q6H PRN PRN 3 Days #12 tab PRN Reason: Pain Prescription Printed Ondansetron [Zofran Odt] 4 mg PO Q8H PRN PRN #10 tab PRN Reason: Nausea Prescription Printed Referrals: Josef Garcia Chi, MD [Primary Care Provider] -
== END 2020-09-27 19:47 | disposition home or self-care (01) ==
LOC: ED 15:05
PROVIDERS: Emergency Provider Emergency Medicine; PCP Family Medicine Geriatric Medicine
DX: K57.32 Diverticulitis of large intestine without perforation or abscess without bleeding (principal); F17.200 Nicotine dependence, unspecified, uncomplicated; J44.9 Chronic obstructive pulmonary disease, unspecified
CPT/HCPCS: 71045; 74177; 80048; 81001; 85025; 96374; 96375; 96376; 99283; J7030; Q9967; A4216

== ENCOUNTER 2020-09-30 14:01 | Emergency (ER) | payer MEDICARE, SELFPAY ==
[2020-09-30 14:02] VITALS: BP 112/70; PULSE 88; RESP 18; TEMP 36.1; O2SAT 95; BMI 33.8
--- NOTE | 2020-09-30 14:25 | CT_ITS ---
EXAM: CT ABDOMEN AND PELVIS WITH INTRAVENOUS CONTRAST CLINICAL INDICATION: Diverticulitis follow up TECHNIQUE: Helically acquired images were obtained of the abdomen and pelvis with intravenous contrast. This CT exam was performed using one or more of the following dose reduction techniques: automated exposure control, adjustment of the mA and/or kV according to patient size, and/or use of iterative reconstruction technique. This report was created using [employer] report generation technology. CONTRAST: IV 100mL Isovue-300 COMPARISON: 09/27/2020 FINDINGS: LOWER THORAX: Visualized lung bases are unchanged (less visualized as compared to the prior study). No cardiomegaly. No significant pericardial effusion. ABDOMEN: LIVER: Unremarkable. Homogeneous. No focal mass. GALLBLADDER AND BILE DUCTS: Cholecystectomy with expected biliary distention, stable. No intra- or extrahepatic biliary ductal dilation. PANCREAS: Unremarkable. No focal cystic or solid mass. SPLEEN: Calcified granulomata of the spleen stable. ADRENALS: Low-density nodule (1.8 cm) of the left adrenal gland is compatible with a lipid rich adenoma. Benign, no imaging follow-up needed. Right adrenal gland is normal. KIDNEYS AND URETERS: Nonobstructing calculus of the left kidney, stable. Left renal cyst is stable. Normal renal size and position. STOMACH AND BOWEL: Diverticulosis with trace stranding adjacent to the proximal sigmoid colon is unchanged. No stomach or bowel distention. No focal inflammatory change. PELVIS: APPENDIX: No evidence of acute appendicitis. BLADDER: Slight wall thickening of the anterior urinary bladder wall with mild degree of pericystic induration (image 75 series 602, image 95 series 2) suggest mild cystitis. Correlation with urinalysis recommended. REPRODUCTIVE: Unremarkable as visualized. No mass. ABDOMEN and PELVIS: INTRAPERITONEAL SPACE: Unremarkable. No ascites or other fluid collection. No free air. BONES/JOINTS: Degenerative changes of the lumbar spine. No suspicious lytic or blastic abnormality. SOFT TISSUES: There is injection granuloma or sequela of previous injury of the left gluteal subcutaneous fat, stable. No discrete abdominal or pelvic wall hernia. VASCULATURE: There is atherosclerosis of the abdominal aorta and iliac arteries. Abdominal aorta is non-dilated. LYMPH NODES: Unremarkable. No enlarged lymph nodes. CT/Abdomen/Pelvis W IV Cont ONLY IMPRESSION: Diverticulosis with trace stranding adjacent to the proximal sigmoid colon is unchanged. Minimal acute proximal sigmoid diverticulitis. No focal abscess or pneumoperitoneum. Electronically Signed: Denton Lassiter MD (Brooks) at 15:54 EDT , Service support ,
[2020-09-30] MEDS: 0.9% Normal Saline 1,000 ML 1000 ML IV (14:53)
[2020-09-30] MEDS: HYDROmorphone 1 MG/ML Syringe IV (14:53)
[2020-09-30] MEDS: Ondansetron 4 MG/2 ML Vial IV (14:53)
[2020-09-30 15:11] LABS: Bacteria 0 SEEN /hpf (None Seen); Mucous, Urine 0 SEEN /hpf (<or=2+)
[2020-09-30 15:17] LABS: Color, Urine Yellow (Yellow); Glucose, Dipstick Normal (Normal); Ketone-Dipstick Negative (Negative); Leukocyte Esterase-Dipstick 25 /ul (Negative); Nitrite-Dipstick Negative (Negative); Occult Blood-Urine 10 /ul (Negative); Protein-Dipstick Negative (Negative); Urine Bilirubin Dipstick Negative (Negative); Urine Clarity Sl. Cloudy (Clear); Urine Urobilinogen 1 mg/dl (Normal)
[2020-09-30 15:19] LABS: Absolute Lymphocyte Count 1.26 X10^3/uL (0.83-4.51); Absolute Neutrophil Count 5.3 X10^3/uL (2.0-7.7); Basophil# 0.01 X10^3/uL; Basophil% 0.1 % (0-1); Eosinophil# 0.07 X10^3/uL; Eosinophils% 0.9 % (0-5); Hematocrit 45.1 % (40-54); Hemoglobin 14.6 g/dL (13.0-16.5); Lymphocyte # 1.26 X10^3/ul (4.0); Lymphocyte % 16.8 % (19-41); Mean Corp Hgb Conc 32.4 g/dL (32-36); Mean Corpuscular Hgb 30.1 pg (27.0-32.0); Mean Platelet Vol. 9.2 fl (6.2-12.0); Monocyte# 0.79 X10^3/uL; Monocyte% 10.5 % (0-10); NRBC Flagged by Analyzer 0 % (0-5); Neutrophil # 5.34 X10^3/uL (2.7-7.7); Neutrophil % 71.2 % (47-70); Platelet Count 261 K/mm3 (150-450); RBC Distribution Width CV 13.8 % (11.6-14.6); RBC Distribution Width SD 47.3 fl (35.1-43.9); Red Blood Count 4.85 M/mm3 (4.6-6.2); White Blood Count 7.5 K/mm3 (4.4-11.0)
[2020-09-30 15:29] LABS: Anion Gap 5 (5-15); BUN 19 mg/dL (7-18); BUN/Creat Ratio 20.6 RATIO (10-20); Calcium,Total 9.8 mg/dL (8.5-10.1); Chloride 103 mmol/L (98-107); Creatinine, Serum 0.92 mg/dL (0.70-1.30); EST Glomerular Filtration Rate 89 mL/min (>60); Est Glom Filt Rate - Afr Amer 108 mL/min (>60); Estimated Creatinine Clearance 65.94 ml/min; Glucose 102 mg/dL (74-106); Potassium 4.2 mmol/L (3.5-5.1); Sodium Level 138 mmol/L (136-145)
[2020-09-30 15:40] LABS: Amorphous Sediment 1+ PHOS; Red Blood Cells-Urine 0-5 SEEN /hpf (0-5); Squamous Epithelial Cells - UA 0-5 SEEN /hpf (0-5); White Blood Cells 0-5 SEEN /hpf (0-5)
[2020-09-30] MEDS: Mag Hydrox/Al Hydrox/Simeth 30 ML UDC PO (15:54)
--- NOTE | 2020-09-30 15:56 | ED.VISSUMM ---
- ER Visit Summary Date of Service: 09/30/20 Chief Complaint: Abdominal pain History of Present Illness: The patient is a [address] Garcia. He reports he has abdominal pain began 5 days ago. Is a sharp pain is 1010 at worst and 6 out of 10 currently. Is worsened by movement and relieved by remaining still. Is taking oxycodone 5 mg every 6 hours as well. He denies any nausea, vomiting, or diarrhea. His last bowel movements today. He denies any melena or hematochezia. He does complain of dysuria. He denies frequency. Patient was seen in the emergency department 3 days ago and diagnosed with diverticulitis. He was discharged on Cipro and Flagyl. He reports he has had subjective fever and chills today. Physical Examination: Vitals: Stable. Afebrile. General: Well-nourished and well-developed. Head: Normocephalic atraumatic. Neck: Supple, no lymphadenopathy. No JVD. Nontender. Cardiovascular: Regular rate and rhythm. No murmurs. Respiratory: No respiratory distress. Clear to auscultation bilaterally. Abdominal: Soft, mild left lower quadrant tenderness to palpation, nondistended, normal bowel sounds. No guarding, rebound, or peritoneal signs. : Normal circumcised male. No testicular tenderness to palpation or swelling. Back: Nontender. Extremities: Nontender, no edema. Skin: Normal color, no rash. Neurologic: Alert and oriented ?3. Cranial nerves II through XII are intact. Normal strength and sensation. Psych: Normal affect. Test Results: CBC shows segmented neutrophils 71 lymphocytes 17 and monocytes of 11. Chem-7 shows a BUN of 19. UA is negative. Clinical Impression(s) from Imaging Studies Abdomen/Pelvis CT 09/30/20 14:25 IMPRESSION: Diverticulosis with trace stranding adjacent to the proximal sigmoid colon is unchanged. Minimal acute proximal sigmoid diverticulitis. No focal abscess or pneumoperitoneum. Electronically Signed: Denton Lassiter MD (Brooks) at 15:54 EDT , Service support , Emergency Department Course and Treatment: Patient was given a dose of Dilaudid and Zofran IV. He is given a GI cocktail. He is resting more comfortably. Treatment Plan: CT does not show any evidence of an abscess or a perforated diverticulum. He is instructed to continue the Cipro and Flagyl. To be given a prescription for 12 more Percocet. Instructed to follow-up Dr. Garcia in 1 to 2 days if not improving. Return to the emergency department for any worsening symptoms. Disposition: To home in improved and stable condition. Impression: 1. Diverticulitis. This note was generated with [employer] dictation software. It may contain incorrect words, spelling, and punctuation that were not noted in review of the chart prior to signing ED Disposition - Plan for ED Patient: Instructions: ED Diverticulitis Prescriptions: Oxycodone HCl/Acetaminophen [Percocet 5/325] 1 tablet PO Q6H PRN PRN 3 Days #12 tablet PRN Reason: Pain Referrals: Josef Garcia Chi, MD [Primary Care Provider] - 1-2 Days if not improving
[2020-09-30 16:15] VITALS: RESP 18
== END 2020-09-30 16:16 | disposition home or self-care (01) ==
PROVIDERS: Emergency Provider Emergency Medicine; PCP Family Medicine Geriatric Medicine
DX: K57.92 Diverticulitis of intestine, part unspecified, without perforation or abscess without bleeding (principal); F17.200 Nicotine dependence, unspecified, uncomplicated; J44.9 Chronic obstructive pulmonary disease, unspecified
CPT/HCPCS: 74177; 80048; 81001; 85025; 96374; 96375; 99284; J7030; Q9967; A4216; J2405

== ENCOUNTER → 2020-10-03 10:59 | Outpatient (CLI) | payer MEDICARE, SELFPAY ==
[2020-09-30 14:02] VITALS: BMI 33.8
--- NOTE | 2020-10-03 11:07 | RAD_ITS ---
STUDY: X-RAY - LUMBAR SPINE REASON FOR EXAM: Male, 60 years old. LOW BACK PAIN TECHNIQUE: 2 view(s) of the lumbar spine were obtained. COMPARISON: 12/18/2017 FINDINGS: Normal lumbar lordosis. There is a levoscoliosis of the lumbar spine has increased since prior study. There is a normal alignment of the vertebrae. There is diffuse demineralization with multi-level endplate spondylosis. There is multi-level degenerative disc disease with multi-level disc space narrowing, worsening at multiple levels since 2018. Multilevel facet arthropathy. There is no demonstrated fracture. There is atherosclerotic calcification of the abdominal aorta without a demonstrated aneurysm. RAD/Lumbar Spine 2 or 3 Views IMPRESSION: No compression fracture. Overall worse multilevel degenerative disc disease since 2018. Increased scoliosis. Electronically Signed: Denton Lassiter MD (Brooks) at 7:39 EDT , Service support ,
== END ==
LOC: RAD 11:01
PROVIDERS: PCP Family Medicine Geriatric Medicine; Referring Provider Family Medicine Geriatric Medicine; Visit Provider Family Medicine Geriatric Medicine
DX: M54.5 Low back pain (principal)
CPT/HCPCS: 72100

== ENCOUNTER → 2020-10-23 14:44 | Outpatient (CLI) | payer MEDICARE, SELFPAY ==
[2020-09-30 14:02] VITALS: BMI 33.8
--- NOTE | 2020-10-23 14:51 | CT_ITS ---
INDICATION: LOW BACK PAIN EXAMINATION: CT Spine Lumbar W/O Contrast Injection TECHNIQUE: Helically acquired images were obtained of the lumbar spine. 2D reformats were reviewed. A radiation dose optimization technique was used for this scan. IV Contrast dosage and agent: None. COMPARISON: None. FINDINGS: VERTEBRAE: No fracture or traumatic subluxation. No discrete lytic or blastic abnormality observed. Mild left convex curvature of the lower lumbar spine. Preservation of lumbar lordosis. Mild multilevel facet arthropathy. DISCS and SPINAL CANAL: Severe multilevel disc space narrowing and osteophytosis, most notable at T12-L1, L2-L3, L3-L4, L4-L5 and L5-S1. No critical stenosis of the spinal canal. Moderate stenosis of the right L3-4 foramina due to bulging disc. VISUALIZED ABDOMEN: Visualized abdominal aorta is not dilated. Atherosclerotic calcifications of the abdominal aorta. 3 mm nonobstructing stone in the left kidney. CT/Spine Lumbar without Contrast IMPRESSION: Severe multilevel lumbar spondylosis. Moderate stenosis of the right L3-4 foramina due to bulging disc. 3 mm nonobstructing stone in the left kidney. Electronically Signed: Joce Harmon MD at 21:08 EDT Tel , Service support ,
== END ==
PROVIDERS: PCP Family Medicine Geriatric Medicine; Referring Provider Family Medicine Geriatric Medicine; Visit Provider Family Medicine Geriatric Medicine
DX: M54.5 Low back pain (principal)
CPT/HCPCS: 72131

== ENCOUNTER → 2020-11-26 17:30 | Outpatient (CLI) | payer MEDICARE, SELFPAY ==
--- NOTE | 2020-11-26 17:45 | RAD_ITS ---
STUDY: X-RAY - PELVIS AND LEFT HIP REASON FOR EXAM: Male, 60 years old. HIP PAIN TECHNIQUE: 3 views of the pelvis and hip. COMPARISON: 01/04/2019. FINDINGS: No acute fracture, dislocation or osseous destruction. Mild bilateral hip osteoarthritis. Mild pubic symphysis arthrosis with minimal widening. Normal sacral joints. Mild to moderate lumbar spine arthrosis. No significant soft tissue swelling. Vascular calcifications. 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
== END ==
LOC: RAD 17:31
PROVIDERS: PCP Family Medicine Geriatric Medicine; Referring Provider Anesthesiology Pain Medicine; Visit Provider Anesthesiology Pain Medicine
DX: M25.559 Pain in unspecified hip (principal)
CPT/HCPCS: 73502

== ENCOUNTER → 2020-12-19 10:32 | Outpatient (CLI) | payer MEDICARE, SELFPAY ==
[2020-12-19 12:13] LABS: Absolute Lymphocyte Count 1.69 X10^3/uL (0.83-4.51); Absolute Neutrophil Count 4.8 X10^3/uL (2.0-7.7); Basophil# 0.01 X10^3/uL; Basophil% 0.1 % (0-1); Eosinophil# 0.08 X10^3/uL; Eosinophils% 1.1 % (0-5); Hematocrit 41.9 % (40-54); Hemoglobin 13.6 g/dL (13.0-16.5); Lymphocyte # 1.69 X10^3/ul (0.83-4.51); Lymphocyte % 22.8 % (19-41); Mean Corp Hgb Conc 32.5 g/dL (32-36); Mean Corpuscular Hgb 30.6 pg (27.0-32.0); Mean Corpuscular Volume 94.2 fL (80-94); Monocyte# 0.82 X10^3/uL; Monocyte% 11.1 % (0-10); NRBC Flagged by Analyzer 0 % (0-5); Neutrophil # 4.77 X10^3/uL (2.7-7.7); Neutrophil % 64.4 % (47-70); Platelet Count 239 K/mm3 (150-450); RBC Distribution Width CV 15.1 % (11.6-14.6); Red Blood Count 4.45 M/mm3 (4.6-6.2); White Blood Count 7.4 K/mm3 (4.4-11.0)
[2020-12-19 12:45] LABS: ALB/GLOB Ratio 1.1 RATIO (0.9-2.4); AST(SGOT) 13 U/L (15-37); Alanine Aminotransfer ALT/SGPT 32 U/L (16-61); Albumin, Serum 3.7 g/dL (3.2-5.0); Alkaline Phosphatase 131 U/L (45-117); Anion Gap 5 (5-15); BUN 17 mg/dL (7-18); BUN/Creat Ratio 19.6 RATIO (10-20); Calcium,Total 9.2 mg/dL (8.5-10.1); Chloride 107 mmol/L (98-107); Creatinine, Serum 0.87 mg/dL (0.70-1.30); EST Glomerular Filtration Rate 95 mL/min (>60); Est Glom Filt Rate - Afr Amer 115 mL/min (>60); Globulin 3.5 g/dL (2.2-4.2); Glucose 102 mg/dL (74-106); Potassium 3.8 mmol/L (3.5-5.1); Protein, Total 7.2 g/dL (6.4-8.2); Sodium Level 142 mmol/L (136-145); Thyroid Stim Hormone (TSH) 0.98 uIU/mL (0.358-3.74)
== END ==
PROVIDERS: PCP Family Medicine Geriatric Medicine; Visit Provider Family Medicine Geriatric Medicine
DX: R53.83 Other fatigue (principal); Z12.5 Encounter for screening for malignant neoplasm of prostate
CPT/HCPCS: 36415; 80053; 84153; 84443; 85025; G0103

== ENCOUNTER → 2020-12-21 16:58 | Outpatient (CLI) | payer MEDICARE, SELFPAY ==
--- NOTE | 2020-12-21 17:05 | RAD_ITS ---
STUDY: X-RAY - LUMBAR SPINE REASON FOR EXAM: Male, 60 years old. back pain TECHNIQUE: 3 view(s) of the lumbar spine were obtained. COMPARISON: 23 October 2020 FINDINGS: Please refer to recent CT lumbar spine with full description of canal and other structures. There is mild scoliosis with preserved lateral alignment there is diffuse spondylosis in the endplates discs and facets. SI joints are normal. Mineralization is normal. Appearance is stable since prior. RAD/Lumbar Spine 2 or 3 Views IMPRESSION: Stable appearance since prior. Spondylosis. Electronically Signed: Payton Wilkerson MD at 20:21 EDT Tel , Service support ,
== END ==
LOC: RAD 17:00
PROVIDERS: PCP Family Medicine Geriatric Medicine; Referring Provider Anesthesiology Pain Medicine; Visit Provider Anesthesiology Pain Medicine
DX: M54.9 Dorsalgia, unspecified (principal)
CPT/HCPCS: 72100

== ENCOUNTER 2021-01-01 13:18 | Emergency (ER) | payer MEDICARE, SELFPAY ==
[2021-01-01 13:20] VITALS: BP 118/65; PULSE 79; RESP 15; TEMP 36.1; O2SAT 97; BMI 34.7
--- NOTE | 2021-01-01 13:59 | EDS_ITS ---
HPI History of Present Illness Chief Complaint: Flank Pain Narrative Narrative: Patient reports sudden onset of right-sided flank pain that began about a half an hour to arrival he states sharp stabbing pain, he states he was not ill in any way before this started, he has had no fever no cough normal bowel bladder habits, he has had prior cholecystectomy eating and drinking well no trauma no fever cough he points to the right flank is a discomfort [facility] Medical History (Updated 01/01/21 @ 14:[address] Lefty Franco MD) Back problem GERD (gastroesophageal reflux disease) Kidney stones Presence of cardiac pacemaker Sick sinus syndrome Sinus arrest Syncope and collapse Home Medications omeprazole 20 mg PO DAILY 11/25/13 [History Last Taken 07/06/19 08:00] gabapentin 400 mg PO BIDCM 09/17/15 [History Last Taken Unknown] pramipexole 1 mg PO QHS 11/18/18 [History Last Taken Unknown] budesonide-formoterol HFA 160 mcg-4.5 mcg/actuation aerosol inhaler 2 puff INHALATION BID PRN 07/04/20 [History Last Taken Unknown] indomethacin 25 mg capsule 25 mg PO TID #60 cap 07/04/20 [Rx Last Taken Unknown] ciprofloxacin HCl 500 mg PO BID #20 tab 09/27/20 [Rx Last Taken Unknown] metronidazole 500 mg PO Q8H #30 tab 09/27/20 [Rx Last Taken Unknown] ondansetron 4 mg PO Q8H PRN PRN #10 tab 09/27/20 [Rx Last Taken Unknown] hydrocodone-acetaminophen 1 tab PO Q4H PRN PRN 2 Days #10 tablet 01/01/21 [Rx Last Taken Unknown] naproxen 500 mg PO BID #14 tab 01/01/21 [Rx Last Taken Unknown] ondansetron 4 mg PO Q8H PRN PRN #10 tab 01/01/21 [Rx Last Taken Unknown] tamsulosin 0.4 mg PO DAILY #7 capsule 01/01/21 [Rx Last Taken Unknown] Allergy/AdvReac Type Severity Reaction Status Date / Time morphine AdvReac MAKES ME Verified 01/01/21 13:19 MAD Family History (Updated 12/28/20 @ 14:45 by Krystyna Ibarra) Mother Colon cancer Social History (Updated 07/04/20 @ 11:[address] Willem Bal DO) Smoking Status: Current every day smoker tobacco type: cigarettes ROS ROS ED ROS Narrative Right flank pain only Constitutional Constitutional ED: Reports subjective, sweats and other; Denies chills, fever(s) or weight loss Eyes Eyes: Denies blurry vision or change in vision ENT ENT ED: Denies ear pain Cardiovascular Cardiovascular: Denies chest pain or palpitations Respiratory/Chest Respiratory/Chest: Denies dyspnea Gastrointestinal Gastrointestinal: Denies abdominal pain, nausea or vomiting Genitourinary Genitourinary ED: Denies dysuria or hematuria Musculoskeletal Musculoskeletal: Denies arthralgias or myalgias Integumentary Reports rash; Denies abscess Neurologic Neurologic: Denies weakness Psychiatric Psychiatric: Denies anxiety or depression Endocrine Endocrinology: Denies polydipsia or polyuria Allergic/Immunologic Allergic/Immunologic ED: Denies urticaria EXAM Physical Exam Narrative Exam Narrative: He is a vague pain to the right flank radiates to the right middle quadrant his chest wall is not tender his right flank is not tender there is no skin lesions he is moving all 4 extremities midline back is nontender the abdomen soft and nontender Const Vital Signs: 01/01/21 13:20 Temperature 96.9 F L Temperature Source Temporal Pulse Rate 79 Respiratory Rate 15 Blood Pressure 118/65 Blood Pressure Mean 82 Pulse Ox 97 Oxygen Delivery Method Room Air Positive well developed General Appearance ED: well developed HEENT Reports normocephalic Negative for trauma Eyes EOMs intact bilaterally Neck supple Chest Wall inspection of chest normal Resp normal respiratory effort Cardio regular rate GI non-tender and non-distended Back/Spine Back/Spine Narrative: unremarkable Extremity normal to inspection Neuro oriented x3 and CN's II-XII intact bilaterally Sensorium / Orientation: alert Psych mental status grossly normal Skin no rashes or lesions noted MDM MDM MDM Narrative Medical decision making narrative: Differentials rather extensive see the test results below ED screening evaluation he is able to take Dilaudid, he indicates his bowel bladder habits unremarkable CT abdomen pelvis Patient's ED screening labs are generally unremarkable the UA shows signs of microscopic hematuria 100 red cells, no white cells, CT abdomen pelvis shows nothing acute there retained kidney stones nothing obstructive, see those reports, on reevaluation the patient is resting more comfortably palpation of the flank reveals pain is resolved he is feeling better he wants to go home I explained the findings to him the likelihood this is related to kidney stone that was passed, he does report he has a history now remembers of kidney stones last 1 was 20 years ago he will be referred to urology Janes Argueta and return for change in symptoms Home stable Right flank pain resolved speculate the past kidney stone Lab Data Labs: Laboratory Results - last 24 hr 01/01/21 01/01/21 01/01/21 14:05 14:05 14:05 WBC 8.7 RBC 4.84 Hgb 14.8 Hct 45.6 MCV 94.2 H MCH 30.6 MCHC 32.5 RDW Std Deviation 50.8 H RDW Coeff of Reinier 14.6 Plt Count 222 MPV 9.1 Immature Gran % (Auto) 0.600 Neut % (Auto) 75.8 H Lymph % (Auto) 14.6 L [place] % (Auto) 7.9 Eos % (Auto) 0.9 Baso % (Auto) 0.2 Absolute Neuts (auto) 6.6 Absolute Lymphs (auto) 1.27 Nucleated RBC % 0 Sodium 142 Potassium 3.6 Chloride 106 Carbon Dioxide 29.0 Anion Gap 7 BUN 15 Creatinine 1.06 Estim Creat Clear Calc 57.23 Est GFR (MDRD) Af Amer 92 Est GFR (MDRD) Non-Af 76 BUN/Creatinine Ratio 14.2 Glucose 94 Calcium 9.5 Total Bilirubin 1.00 AST 16 ALT 32 Alkaline Phosphatase 126 H Total Protein 7.7 Albumin 4.1 Globulin 3.6 Albumin/Globulin Ratio 1.1 Lipase 72 L Urine Color Yellow Urine Clarity Clear Urine pH 5.0 Ur Specific [place] 1.025 Urine Protein 30 H Urine Glucose (UA) Normal Urine Ketones 5 H Urine Occult Blood 250 H Urine Nitrite Negative Urine Bilirubin Negative Urine Urobilinogen Normal Ur Leukocyte Esterase 25 H Urine RBC 50-100 SEEN Urine WBC 0-5 SEEN Ur Squamous Epith Cells 0 SEEN Urine Bacteria 0 SEEN Urine Mucus 0 SEEN Radiography Diagnostic Testing: Radiology Impression Abdomen/Pelvis CT 01/01/21 14:08 IMPRESSION: Nonobstructive bilateral intrarenal calculi. Left adrenal fat-containing nodule. Sigmoid diverticulosis. Electronically Signed: Dorian Chauhan MD at 14:23 EDT , Service support , Discharge Plan Triage Chief Complaint: Flank Pain ED Provider: Lefty Franco Dx/Rx/DC Orders Clinical Impression: Acute right flank pain Prescriptions: New hydrocodone-acetaminophen [hydrocodone-acetaminophen] 1 TABLET tablet 1 tab PO Q4H PRN PRN (Reason: Pain) 2 Days Qty: 10 RF: 0 tamsulosin [tamsulosin] 0.4 MG capsule 0.4 mg PO DAILY Qty: 7 RF: 0 ondansetron [ondansetron] 4 MG tablet 4 mg PO Q8H PRN PRN (Reason: Nausea) Qty: 10 RF: 0 naproxen 500 MG tablet 500 mg PO BID Qty: 14 RF: 0 No Action budesonide-formoterol [Symbicort] 160-4.5 mcg/actuation HFA aerosol inhaler 2 puff INHALATION BID PRN (Reason: Wheezing) RF: 0 indomethacin 25 mg capsule 25 mg PO TID Qty: 60 RF: 1 omeprazole 20 MG capsule 20 mg PO DAILY RF: 0 gabapentin 400 MG capsule 400 mg PO BIDCM RF: 0 pramipexole 0.5 MG tablet 1 mg PO QHS RF: 0 metronidazole 500 MG tablet 500 mg PO Q8H Qty: 30 RF: 0 ciprofloxacin HCl 500 MG tablet 500 mg PO BID Qty: 20 RF: 0 ondansetron 4 MG tablet 4 mg PO Q8H PRN PRN (Reason: Nausea) Qty: 10 RF: 0 Primary Care Provider: Josef Garcia Chi Referrals: Josef Garcia Chi, MD [Primary Care Provider] -
--- NOTE | 2021-01-01 14:08 | CT_ITS ---
STUDY: CT ABDOMEN AND PELVIS WITHOUT CONTRAST REASON FOR EXAM: Male, 60 years old. Flank pain RADIATION DOSAGE (If Supplied By Facility): CTDIvol = ( 14.93 ) mGy, DLP = ( 753.43 ) mGycm TECHNIQUE: Transaxial images were obtained from the dome of the diaphragm to the symphysis pubis without oral contrast, and without intravenous contrast. Sagittal and coronal images were reconstructed. Individualized dose optimization techniques were used for this CT. COMPARISON: Comparison is made with prior study dated 09/30/2020. FINDINGS: The visualized lung bases are unremarkable. A dual-chamber pacemaker is seen. Normal liver. The patient is status post cholecystectomy. There are multiple benign calcified granulomata of the spleen. Normal pancreas. There is a small, circumscribed, smooth, low attenuation left adrenal mass, consistent with an adrenal adenoma. This measures 2.3 cm. Normal right adrenal gland. Punctate calculus in the upper pole of the right kidney. 3 mm nonobstructive calculus in the upper pole of the left kidney. 4 mm nonobstructive calculus in the lower pole of the left kidney. There is a 1.87 m cyst in the posterior upper aspect of the left kidney. Normal visualized stomach. Normal small intestine. There are scattered colonic diverticula consistent with diverticulosis. The appendix is visualized and appears normal. There is diffuse atherosclerotic calcification of the abdominal aorta, without a demonstrated aneurysm. Normal inferior vena cava. Normal retroperitoneum. The bladder is empty at the time of the examination. Normal abdominal wall. There are diffuse degenerative changes of the visualized lumbar spine. CT/Abdomen/Pelvis without Cont IMPRESSION: Nonobstructive bilateral intrarenal calculi. Left adrenal fat-containing nodule. Sigmoid diverticulosis. Electronically Signed: Dorian Chauhan MD at 14:23 EDT , Service support ,
[2021-01-01 14:12] LABS: Bacteria 0 SEEN /hpf (None Seen); Mucous, Urine 0 SEEN /hpf (<or=2+); Squamous Epithelial Cells - UA 0 SEEN /hpf (0-5)
[2021-01-01 14:14] LABS: Absolute Lymphocyte Count 1.27 X10^3/uL (0.83-4.51); Absolute Neutrophil Count 6.6 X10^3/uL (2.0-7.7); Basophil# 0.02 X10^3/uL; Basophil% 0.2 % (0-1); Eosinophil# 0.08 X10^3/uL; Eosinophils% 0.9 % (0-5); Hematocrit 45.6 % (40-54); Hemoglobin 14.8 g/dL (13.0-16.5); Lymphocyte # 1.27 X10^3/ul (0.83-4.51); Lymphocyte % 14.6 % (19-41); Mean Corp Hgb Conc 32.5 g/dL (32-36); Mean Corpuscular Hgb 30.6 pg (27.0-32.0); Mean Corpuscular Volume 94.2 fL (80-94); Mean Platelet Vol. 9.1 fl (6.2-12.0); Monocyte# 0.69 X10^3/uL; Monocyte% 7.9 % (0-10); NRBC Flagged by Analyzer 0 % (0-5); Neutrophil # 6.61 X10^3/uL (2.7-7.7); Neutrophil % 75.8 % (47-70); Platelet Count 222 K/mm3 (150-450); RBC Distribution Width CV 14.6 % (11.6-14.6); RBC Distribution Width SD 50.8 fl (35.1-43.9); Red Blood Count 4.84 M/mm3 (4.6-6.2); White Blood Count 8.7 K/mm3 (4.4-11.0)
[2021-01-01 14:18] LABS: Color, Urine Yellow (Yellow); Glucose, Dipstick Normal (Normal); Ketone-Dipstick 5 mg/dl (Negative); Leukocyte Esterase-Dipstick 25 /ul (Negative); Nitrite-Dipstick Negative (Negative); Occult Blood-Urine 250 /ul (Negative); Protein-Dipstick 30 mg/dl (Negative); Specific Gravity, Urine 1.025 (1.002-1.030); Urine Bilirubin Dipstick Negative (Negative); Urine Clarity Clear (Clear); Urine Urobilinogen Normal (Normal)
[2021-01-01] MEDS: Ondansetron 4 MG/2 ML Vial IV (14:19)
[2021-01-01] MEDS: HYDROmorphone 1 MG/ML Syringe IV (14:19)
[2021-01-01] MEDS: 0.9% Normal Saline 1,000 ML 1000 ML IV (14:20)
[2021-01-01 14:24] LABS: Red Blood Cells-Urine 50-100 SEEN /hpf (0-5); White Blood Cells 0-5 SEEN /hpf (0-5)
[2021-01-01 14:30] LABS: ALB/GLOB Ratio 1.1 RATIO (0.9-2.4); AST(SGOT) 16 U/L (15-37); Alanine Aminotransfer ALT/SGPT 32 U/L (16-61); Albumin, Serum 4.1 g/dL (3.2-5.0); Alkaline Phosphatase 126 U/L (45-117); Anion Gap 7 (5-15); BUN 15 mg/dL (7-18); BUN/Creat Ratio 14.2 RATIO (10-20); Calcium,Total 9.5 mg/dL (8.5-10.1); Chloride 106 mmol/L (98-107); Creatinine, Serum 1.06 mg/dL (0.70-1.30); EST Glomerular Filtration Rate 76 mL/min (>60); Est Glom Filt Rate - Afr Amer 92 mL/min (>60); Estimated Creatinine Clearance 57.23 ml/min; Globulin 3.6 g/dL (2.2-4.2); Glucose 94 mg/dL (74-106); Lipase 72 U/L (73-393); Potassium 3.6 mmol/L (3.5-5.1); Protein, Total 7.7 g/dL (6.4-8.2); Sodium Level 142 mmol/L (136-145)
[2021-01-01] MEDS: 0.9% Normal Saline 1,000 ML 150 ML IV (14:36)
[2021-01-01 15:41] VITALS: BP 124/70; PULSE 78; RESP 19; O2SAT 97
== END 2021-01-01 15:43 | disposition home or self-care (01) ==
PROVIDERS: Emergency Provider Emergency Medicine; PCP Family Medicine Geriatric Medicine
DX: R10.9 Unspecified abdominal pain (principal); F17.210 Nicotine dependence, cigarettes, uncomplicated; Z95.0 Presence of cardiac pacemaker
CPT/HCPCS: 74176; 80053; 81001; 83690; 85025; 96374; 96375; 99283; J7030; J2405

== ENCOUNTER → 2021-01-10 16:42 | Outpatient (CLI) | payer MEDICARE, SELFPAY ==
[2021-01-09 09:26] VITALS: BMI 34.7
[2021-01-10 16:58] LABS: Bacteria 0 SEEN /hpf (None Seen); Red Blood Cells-Urine 0 SEEN /hpf (0-5); Squamous Epithelial Cells - UA 0 SEEN /hpf (0-5); White Blood Cells 0 SEEN /hpf (0-5)
[2021-01-10 17:14] LABS: Color, Urine Yellow (Yellow); Glucose, Dipstick Normal (Normal); Ketone-Dipstick Negative (Negative); Leukocyte Esterase-Dipstick Negative /ul (Negative); Nitrite-Dipstick Negative (Negative); Occult Blood-Urine 25 /ul (Negative); Protein-Dipstick Negative (Negative); Specific Gravity, Urine 1.025 (1.002-1.030); Urine Bilirubin Dipstick Negative (Negative); Urine Clarity Clear (Clear); Urine Urobilinogen Normal (Normal)
[2021-01-10 17:35] LABS: Calcium Oxalate Crystals Ur 1+ /hpf (<or=2+); Mucous, Urine 1+ /hpf (<or=2+)
== END ==
PROVIDERS: PCP Family Medicine Geriatric Medicine; Referring Provider Nurse Practitioner Adult Health; Visit Provider Nurse Practitioner Adult Health
DX: R31.21 Asymptomatic microscopic hematuria (principal)
CPT/HCPCS: 81001

== ENCOUNTER 2021-03-27 08:02 | Day surgery (SDC) | payer MEDICARE, SELFPAY ==
--- NOTE | 2021-03-26 23:56 | HP.PCM_ITS ---
History and Physical Date of Admission: 03/27/21 HISTORY OF PRESENT ILLNESS 60 year old man presents with a lesion right lateral chest wall that was shave biopsied on 06/26/20. Pathology showed a dermatofibroma. Over the last several months, the residual scar has become raised in configuration and nodular. The scar is still erythematous. He denies fever. He denies trauma. He presents at this time for further evaluation and treatment. PAST MEDICAL HISTORY Back problem Bone fracture Dermatofibroma of chest GERD (gastroesophageal reflux disease) Kidney stones Presence of cardiac pacemaker Sick sinus syndrome Sinus arrest Smoker Syncope and collapse PAST SURGICAL HISTORY cervical spine surgery inguinal hernia repair ALLERGIES morphine MEDICATIONS omeprazole gabapentin pramipexole budesonide-formoterol HFA -actuation aerosol inhaler indomethacin ciprofloxacin HCl metronidazole ondansetron hydrocodone-acetaminophen naproxen ondansetron tamsulosin FAMILY HISTORY Mother - Colon cancer Sister - Breast cancer Sister - Breast cancer Other - CVA (cerebral vascular accident) SOCIAL HISTORY Smoking Status: Current some day smoker alcohol intake: current alcohol intake frequency: holidays/special occasions only substance use type: does not use REVIEW OF SYSTEMS General - Denies fever and weight loss. Has fatigue. Eyes - Denies cataracts and glaucoma. ENT - Denies nasal congestion and sore throat. Endocrine - Denies excessive thirst and urination. Skin - Denies skin cancer. Has recurrent dermatofibroma right lateral chest wall. Musculoskeletal - Has joint pain, joint stiffness, weakness of muscles and joints, back pain. Denies arthritis. Neuro - Denies headaches. Has lightheadedness. Cardiovascular - Has chest pain, fatigue, and lightheadedness. Denies shortness of breath with exertion. Psych - Denies anxiety and depression. Respiratory - Denies chronic cough. Has shortness of breath and sleep apnea. Patient is a smoker. Gastrointestinal - Denies nausea, vomiting, diarrhea, and constipation. Hematologic - Denies abnormal bruising and bleeding. Genitourinary - Denies hematuria and urinary frequency. PHYSICAL EXAMINATION General - Alert and Oriented HEENT - PERRL. EOMI. Throat is clear. No suspicious lesions noted. Neck - Supple and nontender. No cervical adenopathy. No suspicious lesions noted. Chest wall - On the right lateral chest wall is a 1 cm erythematous lesion within a healing scar from previous shave biopsy in June,. It is nodu lar. No ulceration. Lesion is nontender. No other suspicious lesions noted. Lungs - Clear to auscultation. Heart - Regular rate and rhythm. Abdomen - Soft and nondistended. No suspicious lesions noted. No suspicious lesions noted. Extremities - FROM. No axillary adenopathy. Radial pulses are palpable. Neuro - CN II-XII grossly intact. Psych - Normal mood and affect. ASSESSMENT 1. 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 2. Smoker. PLAN Reviewed the Pathology report from 06/26/20. It was a shave biopsy and showed a dermatofibroma. A dermatofibroma is benign. However, if there is a recurrence, then there is the possibility of becoming a dermatofibrosarcoma protuberans. Recommend excision of this recurrent dermatofibroma and send it to Pathology for analysis to rule out carcinoma. The initial biopsy was a shave biopsy so the base of the lesion still persisted, which in this case turned into a recurrent dermatofibroma. If carcinoma is present, then further excision will be necessary with possible skin flap reconstruction. Surgery will be done on an outpatient basis under local anesthesia and IV sedation. Patient was informed of the risks and complications of the procedure including alternatives to surgery. These were discussed with the patient personally. Patient voices understanding and wishes to proceed. Some of the risks and complications were included in a form from the [place] [employer]. Encouraged patient to stop smoking as it may have deleterious effects on wound healing. We discussed the current risks associated with COVID-19. While it is understood that there is a community spread of COVID-19, the risk of christy COVID-19 while at [facility] ([facility]) is very low; however, the risk cannot be completely mitigated because of the community spread of the disease. We discussed in detail the risk of exposure to and/or potential harm posed by the COVID-19 virus with having a surgery/procedure at this time versus the risk of delaying the surgery/procedure. It is not possible to know either the risk of delaying the surgery or procedure or chance of getting an infection with perfect accuracy, but a joint decision was made to proceed at this time with the scheduled surgery/procedure as indicated on the consent form. Patient was notified that we will need to comply with any screening or testing [facility] wishes to perform or that surgery may be delayed for any positive results. Procedure Criteria Procedure Type:?Elective COVID Risk Discussion: The surgeon/proceduralist and patient have discussed in detail the risk of exposure to and/or potential harm posed by the COVID-19 virus with having a surgery/procedure at this time versus the risk of delaying the surgery/procedure.? It is not possible to know either the risk of delaying the surgery or procedure or chance of getting an infection with perfect accuracy, but a joint decision was made between the patient and the surgeon/proceduralist to proceed at this time with the scheduled surgery/procedure as indicated on the consent form.
[2021-03-27] VITALS (8 sets, daily range): BP systolic 111–135; BP diastolic 7–76; PULSE 67–77; RESP 16–18; TEMP 35.9–36.6; O2SAT 92–97; BMI 36.6
--- NOTE | 2021-03-27 | IMM_PTH ---
PATIENT: BILL LICEA [place] [facility] [place][id number] AGE/SX: 60/M ROOM: RE03/27/[address]: Dr. Jarvis Fernandez MD : 1960 BED: DIS: 03/27/2021 SPEC #: [id number] RECD: 03/29/21 11:20 STATUS: YUMIKO REQ #: [id number] TERRY: 03/27/21 00:[address]: Jarvis Fernandez DEPT: IMMUNOHISTOCHEMISTRY RECD BY: Brijesh Blackwood ENTERED: 03/29/21 11:21 SP TYPE: IMMUNO OTHR DR: Dr. Josef Garcia MD Tissues: Chest wall, NOS Procedures: SMA (add) CD34 (add) MACRO (add) Vimentin (add) NEUROFIL (add) Pankeratin (initial) MELAN-A (add) S-100 (add) PHYSICIAN & INSTITUTION [place] [id number] SPECIMEN INFORMATION: Tissue Source: Lesion, lateral chest wall Clinical Info: Recurrent dermatofibroma, right lateral chest wall Specimen Number: [id number] CPT code: 23248, 38544 x7 METHODOLOGY: Deparaffinized sections of prefer/formalin-fixed tissue or PAP/DQ stained slides are incubated with monoclonal/polyclonal antibodies/oligonucleotide probes. Localization is made via biotin free immunoperoxidase method. Appropriate controls are performed and reacted as expected. Results on target cell population are indicated in the following table: RESULTS: ANTIBODY / CLONE RESULT AE1-3 (AE1/AE3/PCK26) negative Vimentin (V9) positive CD34 (QBEnd-10) negative Macro (HAM-56) negative Actin (1A4) negative Melan A (A103) negative S-100 (4C4.9) negative Neurofil (2F11) negative These tests were developed and their performance characteristics determined by [facility]. They may not have been cleared or approved by the U.S. Food and Drug Administration. The FDA has determined that such clearance or approval is not necessary. The above immunohistochemical/dualISH markers are ordered and reviewed by the Pathologist. INTERPRETATION: Skin lesion, right lateral chest, biopsy: Consistent with dermatofibroma, completely excised. AM:catrachita 04/01/2021
[2021-03-27] MEDS: Lactated Ringers 1,000 ML 100 ML IV (08:25)
--- NOTE | 2021-03-27 09:35 | LES_PTH ---
PATIENT: BILL LICEA LOC: [facility] [place] U#:[id number] AGE/SX: 60/M ROOM: RE03/27/[address]: Dr. Jarvis Fernandez MD : 1960 BED: DIS: 03/27/2021 SPEC #: [id number] RECD: 03/27/21 11:36 STATUS: YUMIKO RESamy #: [id number] TERRY: 03/27/21 09:[address]: Jarvis Fernandez DEPT: SURGICAL PATHOLOGY RECD BY: Gypsy Ron ENTERED: 03/27/21 12:55 SP TYPE: Lesion OTHR DR: Dr. Josef Garcia MD Tissues: Skin of chest Procedures: Surgery Specimen Level IV HEADER OPERATION: Excision, lesion, lateral chest wall PRE-OP DIAGNOSIS: Recurrent dermatofibroma right lateral chest wall, 1 cm TISSUE SUBMITTED: Recurrent dermatofibroma right lateral chest wall MICROSCOPIC DIAGNOSIS Skin and tissue of right lateral chest, excisional biopsy: Consistent with dermatofibroma, completely excised. See Comment. AM:am 03/29/21 COMMENT Immunohistochemistry ([id number]) supports the diagnosis. Reference is made to the patient?s previous biopsy of same site with diagnosis of dermatofibroma, incompletely excised. MICROSCOPIC DESCRIPTION Slides are reviewed. GROSS DESCRIPTION Received in fixative is one container labeled with the patient's name and designated right lateral chest wall. The specimen consists of an ellipse of edwards skin measuring 6 x 2.2 x 1.0cms. the specimen is oriented and differentially inked as follows: 12 o?clock - black, 3 o?clock - green, 6 o?clock ? blue, and 9 o?clock ? yellow. The specimen is serially sectioned and totally submitted in two cassettes after additional fixation. /AM:am 03/28/21 TC:1 CPT:56455
[2021-03-27] MEDS: Cefazolin 2 GM in 0.9% Normal Saline 100 ML IV (10:09)
[2021-03-27] MEDS: Lidocaine 1% /Epi 1:100 (20ml) 20 ML Vial (10:25)
--- NOTE | 2021-03-27 10:40 | PCM.OPRPT ---
Problems Associated Problem List Diagnoses (1) Dermatofibroma of chest: (2) Smoker: Report of Operation Date of Procedure: 03/27/21 Pre-Operative Diagnosis: 1. 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 2. Smoker. Post-Operative Diagnosis: Same. Surgery/Procedure Performed:: Excision 1 cm recurrent dermatofibroma right lateral chest wall with 9 cm layered closure. Description of Surgical Findings:: 60 year old man presents with a lesion right lateral chest wall that was shave biopsied on 06/26/20. Pathology showed a dermatofibroma. Over the last several months, the residual scar has become raised in configuration and nodular. The scar is still erythematous. He denies fever. He denies trauma. Patient was informed of the risks and complications of the procedure including alternatives to surgery. These were discussed with the patient personally. Patient voices understanding and wishes to proceed. Some of the risks and complications were included in a form from the [employer] [place] [employer]. Encouraged patient to stop smoking as it may have deleterious effects on wound healing. Surgeon: Jarvis Fernandez art psychotherapist or therapist: Barrington Olivas Type of Anesthesia: Local MAC (xylocaine with epinephrine and IV sedation.) Specimen's removed: Recurrent dermatofibroma right lateral chest wall to Patholo Drains: None. Estimated Blood Loss (mL): 10. Description of Procedure: Patient was taken to OR in supine position and was given IV sedation. The right lateral chest wall area was prepped and draped in the usual fashion. SCD's were placed for DVT prophylaxis. Perioperative antibiotics were given intravenously. The lesion right lateral chest wall was infiltrated with xylocaine and epinephrine. After waiting 5 minutes for the anesthetic to take effect, I proceeded with a full thickness excision in an elliptical fashion into the subcutaneous tissue. I excised the recurrent dermatofibroma with a 1 cm margin in all directions thus fashioning a 3 cm excision and a 9 cm layered closure. A suture was marked at 12 oclock position for pathology orientation. It was then sent to Pathology for analysis to rule out carcinoma. For the wound defect, hemostasis was obtained using electrocautery. The wound was closed in a layered fashion with 4-0 Monocryl interrupted sutures for the deep and dermis and subcutaneous tissue. The skin was approximated with 4-0 Prolene simple interrupted sutures. Antibiotic ointment was appliec to the suture line followed by an Op-site dressing. Patient tolerated the procedure well and was sent to PACU in satisfactory condition. Patient will be sent home on antibiotics and pain medication. Patient will followup in a week for a wound check and for discussion of the pathology report. The sutures will be removed in 10-14 days. Grafts/Implants Used: None. Complications None. Admit VTE Documentation VTE Present on Admission: No VTE Mechan Device Prophylaxis: SCD's VTE Pharm Prophylaxis ordered?: No Addendum Addendum: Surgery Charges CPT - 27758 ICD-10 - D23.5, F17.200 93766 D23.5, F17.200
--- NOTE | 2021-03-27 10:45 | PCM.DC ---
Discharge Instructions Diet Discharge Diet: No restrictions Activity Discharge Activity: May Not Drive (if taking narcotics for pain.) and May Shower (in two days.) May shower in (days): 2 May resume sexual activity in: No Restrictions Weight Bearing Status: Weight bearing as tolerated Dressing / Incision Call your doctor if your incision/area has: Continuous Slow Oozing, Sudden Increased Bleeding, Increased Pain/ Swelling, Increased Redness, Foul Smelling Discharge and Swelling at the incision site Call your doctor if you observe: Fever of 101 or Higher, Coldness, Increased Pain, Shortness of breath, Chest pain, Calf discomfort and Uncontrolled pain Suture Line Care: - (after operative dressing removed in two days, apply antibiotic ointment to suture line daily.) Remove Dressing in: 2 days Cleanse incision/area with: - (may get incision wet in the shower in two days.) Follow Up Care Please Follow Up With: Jarvis Fernandez MD When: one week. call [phone] for appt. Test Results: Test results from this visit will be discussed in further detail at your follow-up appointment, if applicable. Discharge Plan Admission Primary Reason for Your Visit: recurrent dermatofibroma Attending Provider: Jarvis Fernandez Primary Care Provider: Josef Garcia Chi Discharge Orders/Prescriptions Prescriptions: New cefadroxil 500 mg capsule 500 mg PO BID Qty: 10 RF: 0 oxycodone-acetaminophen [Percocet] 5-325 mg tablet 1 tab PO Q6H PRN (Reason: pain (scale score 7-10)) 5 Days Qty: 20 RF: 0 L.acidoph,saliva-B.bif-S.therm [Acidophilus Probiotic Blend] 175 mg capsule 1 cap PO DAILY Qty: 10 RF: 0 Continued budesonide-formoterol [Symbicort] 160-4.5 mcg/actuation HFA aerosol inhaler 2 puff INHALATION BID PRN (Reason: Wheezing) RF: 0 omeprazole 20 MG capsule 20 mg PO DAILY RF: 0 gabapentin 400 MG capsule 400 mg PO BIDCM RF: 0 pramipexole 0.5 MG tablet 1 mg PO QHS RF: 0 Referrals / Follow Up: Josef Garcai Chi, MD [Primary Care Provider] - Disposition Disposition (needs filled in before D/C Order can be placed): Home, Self Care
[2021-03-27] MEDS: Mupirocin Ointment 22gm Tube 1 APPLIC (10:56)
[2021-03-27] MEDS: Acetaminophen 325 MG Tablet PO (11:45)
[2021-03-27] MEDS: oxyCODONE 5 MG Tablet PO (11:45)
== END 2021-03-27 12:35 | disposition home or self-care (01) ==
LOC: SDC 08:02 → AC 08:02
PROVIDERS: PCP Family Medicine Geriatric Medicine; Referring Provider Surgery; Visit Provider Surgery
PROC: (CPT 11403; principal; 2021-03-27 09:25)
DX: D23.5 Other benign neoplasm of skin of trunk (principal); F17.200 Nicotine dependence, unspecified, uncomplicated; K21.9 Gastro-esophageal reflux disease without esophagitis; L90.5 Scar conditions and fibrosis of skin; Z95.0 Presence of cardiac pacemaker; Z79.899 Other long term (current) drug therapy; L53.8 Other specified erythematous conditions; J44.9 Chronic obstructive pulmonary disease, unspecified; G25.81 Restless legs syndrome
CPT/HCPCS: 00400; 11403; 12034; 87426; 88305; 88341; 88342; C9803; J7120; J2405

== ENCOUNTER → 2021-06-05 12:11 | Outpatient (CLI) | payer MEDICARE, SELFPAY ==
[2021-06-05 15:18] LABS: Amphetamine Urine VISTA NEGATIVE (<1000 ng/mL); Barbiturate Urine VISTA NEGATIVE (< 200 ng/mL); Benzodiazepine Urine VISTA NEGATIVE (< 200 ng/mL); Cocaine Urine VISTA NEGATIVE (< 300 ng/mL); Ecstacy Urine VISTA NEGATIVE (< 500 ng/mL); Methadone Urine VISTA NEGATIVE (< 300 ng/mL); PCP Urine VISTA NEGATIVE (< 25 ng/mL); THC Urine VISTA NEGATIVE (< 50 ng/mL); Vista UDS pH Range 5
== END ==
PROVIDERS: PCP Family Medicine Geriatric Medicine; Referring Provider Anesthesiology Pain Medicine; Visit Provider Anesthesiology Pain Medicine
DX: F11.20 Opioid dependence, uncomplicated (principal)
CPT/HCPCS: 80307

== ENCOUNTER → 2021-06-19 09:49 | Outpatient (CLI) | payer MEDICARE, SELFPAY ==
[2021-06-19 11:36] LABS: Absolute Lymphocyte Count 1.56 X10^3/uL (0.83-4.51); Absolute Neutrophil Count 3.6 X10^3/uL (2.0-7.7); Basophil# 0.01 X10^3/uL; Basophil% 0.2 % (0-1); Eosinophil# 0.09 X10^3/uL; Eosinophils% 1.5 % (0-5); Hematocrit 42.8 % (40-54); Hemoglobin 14.1 g/dL (13.0-16.5); Lymphocyte # 1.56 X10^3/ul (0.83-4.51); Lymphocyte % 26.1 % (19-41); Mean Corp Hgb Conc 32.9 g/dL (32-36); Mean Corpuscular Hgb 30.2 pg (27.0-32.0); Mean Corpuscular Volume 91.6 fL (80-94); Mean Platelet Vol. 9.9 fl (6.2-12.0); Monocyte% 11.7 % (0-10); NRBC Flagged by Analyzer 0 % (0-5); Neutrophil # 3.59 X10^3/uL (2.7-7.7); Neutrophil % 60.2 % (47-70); Platelet Count 237 K/mm3 (150-450); RBC Distribution Width CV 14.4 % (11.6-14.6); RBC Distribution Width SD 48.3 fl (35.1-43.9); Red Blood Count 4.67 M/mm3 (4.6-6.2)
[2021-06-19 12:01] LABS: ALB/GLOB Ratio 1.1 RATIO (0.9-2.4); AST(SGOT) 16 U/L (15-37); Alanine Aminotransfer ALT/SGPT 31 U/L (16-61); Albumin, Serum 3.8 g/dL (3.2-5.0); Alkaline Phosphatase 126 U/L (45-117); Anion Gap 8 (5-15); BUN 18 mg/dL (7-18); BUN/Creat Ratio 18.3 RATIO (10-20); Calcium,Total 9.1 mg/dL (8.5-10.1); Chloride 107 mmol/L (98-107); Creatinine, Serum 0.98 mg/dL (0.70-1.30); EST Glomerular Filtration Rate 82 mL/min (>60); Est Glom Filt Rate - Afr Amer 99 mL/min (>60); Globulin 3.6 g/dL (2.2-4.2); Glucose 100 mg/dL (74-106); Protein, Total 7.4 g/dL (6.4-8.2); Sodium Level 142 mmol/L (136-145); Thyroid Stim Hormone (TSH) 1.26 uIU/mL (0.358-3.74)
== END ==
PROVIDERS: PCP Family Medicine Geriatric Medicine; Visit Provider Family Medicine Geriatric Medicine
DX: E55.9 Vitamin D deficiency, unspecified (principal); R53.83 Other fatigue
CPT/HCPCS: 36415; 80053; 82306; 84443; 85025

== ENCOUNTER → 2021-12-23 | Outpatient (CLI) | payer MEDICARE, SELFPAY ==
[2021-12-23 12:33] LABS: Eosinophils% 1.9 % (0-5); Hematocrit 42.4 % (40-54); Lymphocyte % 26.6 % (19-41); Mean Corpuscular Hgb 30.1 pg (27.0-32.0); Mean Corpuscular Volume 91.2 fL (80-94); Mean Platelet Vol. 9.8 fl (6.2-12.0); Monocyte% 11.6 % (0-10); Neutrophil % 59.4 % (47-70); Platelet Count 225 K/mm3 (150-450); RBC Distribution Width CV 13.8 % (11.6-14.6); RBC Distribution Width SD 46.9 fl (35.1-43.9); Red Blood Count 4.65 M/mm3 (4.6-6.2); White Blood Count 5.8 K/mm3 (4.4-11.0)
[2021-12-23 12:34] LABS: Absolute Lymphocyte Count 1.54 X10^3/uL (0.83-4.51); Absolute Neutrophil Count 3.5 X10^3/uL (2.0-7.7); Basophil# 0.01 X10^3/uL; Basophil% 0.2 % (0-1); Eosinophil# 0.11 X10^3/uL; Lymphocyte # 1.54 X10^3/ul (0.83-4.51); Monocyte# 0.67 X10^3/uL; NRBC Flagged by Analyzer 0 % (0-5); Neutrophil # 3.45 X10^3/uL (2.7-7.7)
[2021-12-23 13:41] LABS: ALB/GLOB Ratio 1.1 RATIO (0.9-2.4); AST(SGOT) 18 U/L (15-37); Alanine Aminotransfer ALT/SGPT 27 U/L (16-61); Albumin, Serum 3.8 g/dL (3.2-5.0); Alkaline Phosphatase 143 U/L (45-117); Anion Gap 6 (5-15); BUN 14 mg/dL (7-18); BUN/Creat Ratio 15.4 RATIO (10-20); Calcium,Total 9.5 mg/dL (8.5-10.1); Chloride 108 mmol/L (98-107); Creatinine, Serum 0.91 mg/dL (0.70-1.30); EST Glomerular Filtration Rate 90 mL/min (>60); Est Glom Filt Rate - Afr Amer 109 mL/min (>60); Globulin 3.4 g/dL (2.2-4.2); Glucose 93 mg/dL (74-106); PSA,Total - Annual Screen 0.98 ng/mL (0.00-4.00); Potassium 3.8 mmol/L (3.5-5.1); Protein, Total 7.2 g/dL (6.4-8.2); Sodium Level 140 mmol/L (136-145)
== END | disposition home or self-care (01) ==
LOC: LAB 11:37
PROVIDERS: PCP Family Medicine Geriatric Medicine; Referring Provider Family Medicine Geriatric Medicine; Visit Provider Family Medicine Geriatric Medicine
DX: R53.83 Other fatigue (principal); Z12.5 Encounter for screening for malignant neoplasm of prostate
CPT/HCPCS: 36415; 80053; 84153; 84443; 85025; G0103

== ENCOUNTER → 2021-12-26 | Outpatient (CLI) | payer MEDICARE, SELFPAY ==
--- NOTE | 2021-12-26 08:01 | CT_ITS ---
STUDY: LOW DOSE CT LUNG CANCER SCREENING REASON FOR EXAM: Male, 61 years old. CIGARETTE SMOKER. Patient smoked 1 pack per day for 50 years. RADIATION DOSAGE (If Supplied By Facility): CTDIvol = ( 4.02 ) mGy, DLP = ( 115.82 ) mGycm TECHNIQUE: No contrast was administered. Low dose technique was utilized (average mAS-38 and kVp 120). 1.25 mm axial source images with a slice interval of 1.25-mm were reconstructed in lung windows. 2.5 mm axial source images with a slice interval of 2.5-mm were reconstructed in lung windows. 5.0 mm axial source images with a slice interval of 5.0-mm were reconstructed in soft tissue windows. COMPARISON: Comparison is made with prior study dated 12/20/2019. NODULES: Stable 6.6 mm calcified granuloma in the peripheral posterior aspect of the right upper lobe as seen on axial image #69. Emphysema: Mild degree of emphysematous changes. Mildly is scarring at the lung bases. Endobronchial lesion: None Aorta: Minimal degree of atherosclerotic plaque formation of the aortic arch. CORONARY ARTERIES: Coronary artery calcification is seen. Heart: Unremarkable Pulmonary artery: Unremarkable Mediastinal nodes: Calcified right hilar lymph nodes. Other chest and abdominal findings: CT/Low Dose CT Lung Screening IMPRESSION: Lung-RADS category 2 - Continue annual screening with LDCT in 12 months. IMPORTANT NOTES FOR USE: ACR Lung-RADS Version 1.1 Assessment Categories Release Date: 2018 Category: Coded 0-4 bases on nodule(s) with highest degree of suspicion. Negative screen is defined as categories 1 and 2; a positive screen is defined as categories 3 and 4. Category 3 and 4A nodules that are unchanged on interval CT should be coded as category 2, and individuals returned to screening in 12 months. Category 4X: Category 3 or 4 nodules with additional imaging findings that increase the suspicion of lung cancer, such as spiculation, GGN that doubles in size in 1 year, enlarged lymph notes, etc. Category Modifiers: S (significant finding unrelated to lung cancer) Electronically Signed: Dorian Chauhan MD at 10:14 EDT ,
== END | disposition home or self-care (01) ==
LOC: CT 07:58
PROVIDERS: PCP Family Medicine Geriatric Medicine; Referring Provider Family Medicine Geriatric Medicine; Visit Provider Family Medicine Geriatric Medicine
DX: F17.210 Nicotine dependence, cigarettes, uncomplicated (principal)
CPT/HCPCS: 71271

== ENCOUNTER → 2022-03-12 | Outpatient (CLI) | payer MEDICARE, SELFPAY ==
[2022-03-12 15:30] LABS: Absolute Lymphocyte Count 1.99 X10^3/uL (0.83-4.51); Absolute Neutrophil Count 6.8 X10^3/uL (2.0-7.7); Basophil# 0.01 X10^3/uL; Basophil% 0.1 % (0-1); Eosinophil# 0.06 X10^3/uL; Eosinophils% 0.6 % (0-5); Hematocrit 44.3 % (40-54); Hemoglobin 14.4 g/dL (13.0-16.5); Lymphocyte # 1.99 X10^3/ul (0.83-4.51); Lymphocyte % 20.6 % (19-41); Mean Corp Hgb Conc 32.5 g/dL (32-36); Mean Corpuscular Hgb 30.4 pg (27.0-32.0); Mean Corpuscular Volume 93.5 fL (80-94); Mean Platelet Vol. 9.6 fl (6.2-12.0); Monocyte% 8.3 % (0-10); NRBC Flagged by Analyzer 0 % (0-5); Neutrophil # 6.76 X10^3/uL (2.7-7.7); Neutrophil % 70.1 % (47-70); Platelet Count 229 K/mm3 (150-450); RBC Distribution Width CV 14.4 % (11.6-14.6); Red Blood Count 4.74 M/mm3 (4.6-6.2); White Blood Count 9.7 K/mm3 (4.4-11.0)
[2022-03-12 15:53] LABS: ALB/GLOB Ratio 1.1 RATIO (0.9-2.4); AST(SGOT) 18 U/L (15-37); Alanine Aminotransfer ALT/SGPT 36 U/L (16-61); Alkaline Phosphatase 130 U/L (45-117); Anion Gap 5 (5-15); BUN 14 mg/dL (7-18); BUN/Creat Ratio 14.5 RATIO (10-20); Calcium,Total 9.2 mg/dL (8.5-10.1); Chloride 107 mmol/L (98-107); Creatinine, Serum 0.97 mg/dL (0.70-1.30); EST Glomerular Filtration Rate 84 mL/min (>60); Est Glom Filt Rate - Afr Amer 101 mL/min (>60); Globulin 3.5 g/dL (2.2-4.2); Glucose 89 mg/dL (74-106); Protein, Total 7.5 g/dL (6.4-8.2); Sodium Level 140 mmol/L (136-145); Thyroid Stim Hormone (TSH) 1.42 uIU/mL (0.358-3.74)
== END | disposition home or self-care (01) ==
LOC: POLAB3 14:30
PROVIDERS: PCP Family Medicine Geriatric Medicine; Visit Provider Family Medicine Geriatric Medicine
DX: R53.83 Other fatigue (principal)
CPT/HCPCS: 36415; 80053; 84443; 85025

== ENCOUNTER → 2022-03-13 | Outpatient (CLI) | payer MEDICARE, SELFPAY | END | disposition home or self-care (01) | LOC: PSN 09:19 | PROVIDERS: PCP Family Medicine Geriatric Medicine; Referring Provider Family Medicine Geriatric Medicine; Visit Provider Family Medicine Geriatric Medicine | DX: R68.83 Chills (without fever) (principal) | CPT/HCPCS: 87428; C9803 ==

== ENCOUNTER 2022-03-26 15:28 | Emergency (ER) | payer MEDICARE, SELFPAY ==
[2022-03-26] VITALS (7 sets, daily range): BP systolic 115–198; BP diastolic 65–176; PULSE 75–83; RESP 13–25; TEMP 35.8–37.2; O2SAT 85–99; BMI 36.6
--- NOTE | 2022-03-26 16:04 | CT_ITS ---
EXAM: CT ABDOMEN AND PELVIS WITHOUT INTRAVENOUS CONTRAST CLINICAL INDICATION: Pain: Left flank pain with his kidney stone history with prior dwight TECHNIQUE: Helically acquired images were obtained of the abdomen and pelvis without intravenous contrast. This CT exam was performed using one or more of the following dose reduction techniques: automated exposure control, adjustment of the mA and/or kV according to patient size, and/or use of iterative reconstruction technique. This report was created using [employer] report generation technology. COMPARISON: 01/01/2021, 09/27/2020.. FINDINGS: LOWER THORAX: Unremarkable. Lung bases are clear. No cardiomegaly. No significant pericardial effusion. ABDOMEN: LIVER: Unremarkable. Homogeneous. GALLBLADDER AND BILE DUCTS: Gallbladder is surgically absent. No intra- or extrahepatic biliary ductal dilation. PANCREAS: Unremarkable. No focal cystic mass. SPLEEN: Granulomatous calcifications in the spleen. ADRENALS: 2.1 cm left adrenal nodule with CT density of 6 Hounsfield units, consistent with adenoma. No significant change in size compared to prior studies. Normal right adrenal gland. KIDNEYS AND URETERS: Bilateral renal calcifications measure up to 6 mm. Trace left hydronephrosis. 5 x 4 mm stone in the left ureteropelvic junction. 2.1 cm low-attenuation lesion in the left kidney not characterized without contrast. No significant change compared to prior studies. This lesion is cystic based on the prior study. STOMACH AND BOWEL: Diverticulosis, no acute diverticulitis. No stomach or bowel distention. PELVIS: APPENDIX: No evidence of acute appendicitis. Normal visualized appendix. BLADDER: Unremarkable. REPRODUCTIVE: Unremarkable as visualized. No mass. ABDOMEN and PELVIS: INTRAPERITONEAL SPACE: Unremarkable. No ascites or other fluid collection. No free air. BONES/JOINTS: Unremarkable. No suspicious lytic or blastic abnormality. SOFT TISSUES: Unremarkable. No discrete abdominal or pelvic wall hernia. VASCULATURE: Unremarkable. Abdominal aorta is normal in caliber. LYMPH NODES: Unremarkable. No enlarged lymph nodes. CT/Abdomen/Pelvis without Cont IMPRESSION: 1. Stone in the left UPJ with trace proximal hydronephrosis. 2. Additional nonobstructing renal stones bilaterally. 3. Stable left adrenal adenoma. 4. Old granulomatous disease. 5. Left renal cyst. Follow-up is not indicated per ACR guidelines. Electronically Signed: Tran Roque MD at 17:36 EDT Reading Location ID and State: [id number] / Tel , Service support ,
--- NOTE | 2022-03-26 16:05 | EDS_ITS ---
HPI History of Present Illness Chief Complaint: Flank Pain Detail of Chief Complaint: Left flank pain. Kidney stone history. Began 2 and half hours ago. Informant: patient Pain Onset: Today and Hours Context: Sudden Onset Timing: Continuous Current Severity: Moderate Maximum Severity: Moderate Narrative Narrative: 61-year-old male has had multiple kidney stones in the past also history of COPD. States about 2 and half hour ago he developed sudden onset left flank pain. Primarily in his back. Associated nausea vomiting. No fever or chills. No dysuria or hematuria. Prior similar symptoms: Yes Recent Illness/Hospitalization: No PFSH PFSH Medical History Allergies Ambulates with cane Arthritis Back pain Back problem Blackout Bone fracture Cardiology follow-up encounter COPD (chronic obstructive pulmonary disease) CPAP (continuous positive airway pressure) dependence Dermatofibroma of chest Easy bruising Gastric reflux GERD (gastroesophageal reflux disease) History of diverticulitis History of echocardiogram History of edema History of pacemaker History of pain when walking History of stress test Injury of head and neck Kidney stones Leg cramps Presence of cardiac pacemaker Restless legs Shortness of breath on exertion Sick sinus syndrome Sinus arrest Smoker Smoker Syncope Syncope and collapse Wears dentures Wears glasses Home Medications omeprazole 20 mg capsule,delayed release 20 mg PO DAILY 11/25/13 [History Last Taken 07/06/19 08:00] gabapentin 400 mg capsule 400 mg PO BIDCM 09/17/15 [History Last Taken Unknown] pramipexole 0.5 mg tablet 1 mg PO QHS 11/18/18 [History Last Taken Unknown] budesonide-formoterol HFA 160 mcg-4.5 mcg/actuation aerosol inhaler (Symbicort) 2 puff inhalation BID PRN Wheezing 07/04/20 [History Last Taken Unknown] L.acidophil,salivari-Bifido bifidum-Strep thermoph 175 mg capsule (Acidophilus Probiotic Blend) 1 cap PO DAILY #10 caps 03/27/21 [Rx Last Taken Unknown] cefadroxil 500 mg capsule 500 mg PO BID #10 caps 03/27/21 [Rx Last Taken Unknown] oxycodone-acetaminophen 5 mg-325 mg tablet (Percocet) 1 tab PO Q6H PRN pain (scale score 7-10) 5 days #20 tabs 09/08/21 [Rx Last Taken Unknown] ciprofloxacin HCl 500 mg tablet (Cipro) 500 mg PO BID 7 days #14 tabs 03/26/22 [Rx Last Taken Unknown] ondansetron 4 mg disintegrating tablet 4 mg PO Q8H PRN nausea and vomiting #7 tabs 03/26/22 [Rx Last Taken Unknown] oxycodone-acetaminophen 5 mg-325 mg tablet (Percocet) 1 tab PO Q4H PRN pain 4 days #20 tabs 03/26/22 [Rx Last Taken Unknown] Allergy/AdvReac Type Severity Reaction Status Date / Time morphine AdvReac MAKES ME Verified 03/26/22 15:50 MAD Family History Mother Colon cancer Sister Breast cancer Sister Breast cancer Other CVA (cerebral vascular accident) Surgical History H/O cervical spine surgery H/O inguinal hernia repair History of esophagogastroduodenoscopy (EGD) History of heart surgery Hx of cholecystectomy Hx of colonoscopy Social History household members: spouse, children and other details: grandchildren housing: house current occupational status: unemployed pets and animals: No Smoking Status: Current every day smoker tobacco type: cigarettes alcohol intake: current alcohol intake frequency: holidays/special occasions only substance use type: does not use what type of physical activity do you participate in: none seatbelt use: never do you feel safe at home: Yes additional social history: Does Take Ibuprofen As Needed Does Not Take Aspirin ROS ROS ED ROS Narrative Left flank pain Review of Systems ROS Unobtainable: Denies due to encephalopathy Constitutional Constitutional ED: Denies anorexia Eyes Eyes: Denies burning ENT ENT ED: Denies dental pain Cardiovascular Cardiovascular: Reports abdominal pain Respiratory/Chest Respiratory/Chest: Denies chest congestion Genitourinary Genitourinary ED: Denies hematuria Musculoskeletal Musculoskeletal: Denies deformity Integumentary Denies bleeding lesions or jaundice Neurologic Neurologic: Denies abnormal speech Allergic/Immunologic Allergic/Immunologic ED: Denies lip swelling or mouth swelling EXAM Physical Exam Narrative Exam Narrative: 61-year-old male with mild left flank pain. Vital signs stable initial blood pressure elevated repeat 127/65. He does not look septic or toxic. He is in no distress. ENT exam unremarkable. Lungs are clear. Heart regular rhythm no murmur. Abdomen soft nontender. Back no reproducible pain. Plan left flank pain. Moving all 4 extremities. Nontender no edema. Neurologically awake and alert. Const Vital Signs: 03/26/22 15:29 03/26/22 15:37 03/26/22 15:37 Temperature 98.9 F 98.0 F 97.0 F L Temperature Source Temporal Oral Oral Pulse Rate 83 77 77 Respiratory Rate 25 H 13 13 Blood Pressure 198/176 H 127/65 H 127/65 H Blood Pressure Mean 183 85 85 Pulse Ox 93 94 94 Oxygen Delivery Method Room Air Room Air Room Air Oxygen Flow Rate (L/min) 03/26/22 16:26 03/26/22 16:27 03/26/22 16:55 Temperature 96.5 F L Temperature Source Temporal Pulse Rate 82 Respiratory Rate 24 H Blood Pressure 137/82 H Blood Pressure Mean 100 Pulse Ox 85 93 98 Oxygen Delivery Method Room Air Nasal Cannula Nasal Cannula Oxygen Flow Rate (L/min) 2.5 3 03/26/22 18:12 Temperature Temperature Source Pulse Rate 81 Respiratory Rate 16 Blood Pressure Blood Pressure Mean Pulse Ox 97 Oxygen Delivery Method Nasal Cannula Oxygen Flow Rate (L/min) 2 Positive well nourished, well developed, obese, alert, oriented x3, no apparent distress, average body habitus, no limitations and healthy appearing; Negative for cachectic, contractures or unkempt General Appearance ED: active, cooperative and well developed; Negative for unkempt, cachectic or contractures Exam Limitations: no limitations Nutritional Appearance: obese; Negative for cachectic HEENT Reports normocephalic and head/scalp atraumatic normocephalic, normal to inspection and atraumatic; Negative for trauma Face and Sinus: normal facial exam General Ear: No hearing grossly impaired Mouth ED: Yes oral and palatal mucosa normal Mouth: oral and palatal mucosa normal Throat: posterior oropharynx normal Eyes PERRL, EOMs intact bilaterally, conjunctivae normal and no scleral icterus General Eye ED: Yes normal appearance of both eyes Periorbital: periorbital findings normal Conjunctiva: conjunctiva normal Sclera: sclera normal Neck General: normal visual inspection; Negative for tracheal deviation Thyroid: thyroid normal Lymph Lymphatic: no lymphadenopathy noted and no lymphedema noted; Negative for lymphe candida or lymphadenopathy Chest Wall inspection of chest normal and palpation of chest normal Resp normal respiratory effort, normal air movement, no retractions, no use of accessory muscles, clear to auscultation bilaterally and percussion normal Effort and Inspection: able to speak in complete sentences Auscultation: clear to auscultation bilaterally Cardio regular rate, regular rhythm, S1 normal heart sound, S2 normal heart sound, no murmurs, no rub, no gallops, no clicks and no JVD; Negative for diaphoretic Jugular Venous Distention: Negative for JVD Rate: regular rate; Negative for bradycardia or tachycardic Rhythm: regular rhythm; Negative for abnormal rhythm GI normal to inspection, nondistended, normoactive bowel sounds, soft to palpation, non-tender, non-distended, no masses and no bruits; Negative for hepatosplenomegaly no CVA tenderness Back/Spine no CVA tenderness, normal ROM, normal to inspection and no thoracic nor lumbar tenderness General Back: Negative for CVA tenderness Extremity normal to inspection, full ROM, no joint enlargement, no clubbing, cyanosis or edema, no calf tenderness and no pedal edema Neuro oriented x3, moves all extremities and no focal motor deficits Sensorium / Orientation: awake, alert, oriented to person, oriented to place and oriented to time Meningeal Signs: no meningeal signs Speech: speech normal Motor Exam: strength 5/5 throughout Psych mental status grossly normal, thought process normal, cooperative, affect normal, speech normal and activity/motor behavior normal Appearance: grossly normal, appropriate and well kempt; Negative for unkempt Attitude: calm and engaged Speech: normal speech Mood & Affect: euthymic mood Thought Process: normal thought process Skin no rashes or lesions noted, no wounds, skin turgor normal, no jaundice, no petechiae and no mottling General Skin Exam: no breakdown Lesions: no lesions Rashes: no rashes Trauma: no lacerations or abrasions Hair: normal MDM MDM MDM Narrative Medical decision making narrative: 61-year-old left flank pain and history of kidney stones. Concerned this may be a kidney stone. Treated IV fluids, IV Dilaudid and IV Zofran. CAT scan labs pending. Repeat exam patient doing well at 6:55 PM. He was given a second dose of Dilaudid and his pain is very good at this time. We went over his labs and CAT scan. A urine culture be sent. He will be started on Cipro for 7 days the possibility might have an infection also. He will be placed on oxycodone for his kidney stone pain. Strain his urine. Follow-up with urology as needed. Return if intractable pain, fever or intractable vomiting. Lab Data Attestation: I reviewed the patient's lab results. Lab results narrative: Electrolytes show a gap of 5 normal BUN and creatinine are 15 and 1.0. Glucose 115. Urinalysis shows no nitrites. 250 occult blood. CAT scan shows a ureteral calculi in the left UPJ with hydronephrosis. There is also nonobstructing renal stones. Urinalysis shows 250 occult blood. No nitrates. 5800 red cells. 5-10 white cells. 3+ bacteria. Urine culture be sent. He will be started on antibiotics due to the stone white cells and bacteria. Labs: Laboratory Results - last 24 hr 03/26/22 03/26/22 15:45 17:30 Sodium 139 Potassium 4.2 Chloride 105 Carbon Dioxide 29.0 Anion Gap 5 BUN 15 Creatinine 1.07 Estim Creat Clear Calc 55.99 Est GFR (MDRD) Af Amer 90 Est GFR (MDRD) Non-Af 75 BUN/Creatinine Ratio 14.0 Glucose 115 H Calcium 10.1 Urine Color Yellow Urine Clarity Sl. Cloudy Urine pH 5.0 Ur Specific Solen 1.020 Urine Protein 30 H Urine Glucose (UA) Normal Urine Ketones 5 H Urine Occult Blood 250 H Urine Nitrite Negative Urine Bilirubin Negative Urine Urobilinogen Normal Ur Leukocyte Esterase 25 H Urine RBC 50-100 SEEN Urine WBC 5-10 SEEN Ur Squamous Epith Cells 0-5 SEEN Urine Bacteria 3+ Fine Granular Casts 5-10 SEEN WBC Casts 0-5 SEEN Urine Mucus 2+ Radiography Diagnostic Testing: Clinical Impression(s) from Imaging Studies Abdomen/Pelvis CT 03/26/22 16:04 IMPRESSION: 1. Stone in the left UPJ with trace proximal hydronephrosis. 2. Additional nonobstructing renal stones bilaterally. 3. Stable left adrenal adenoma. 4. Old granulomatous disease. 5. Left renal cyst. Follow-up is not indicated per ACR guidelines. Electronically Signed: Tran Roque MD at 17:36 EDT Reading Location ID and State: [id number] / Tel , Service support , Discharge Plan Triage Chief Complaint: Flank Pain ED Provider: Barrington Berry Dx/Rx/DC Orders Clinical Impression: Kidney stone on left side, Acute UTI Instructions: Urinary Tract Infections in Men, ED Kidney Stone w/ Colic Prescriptions: New ciprofloxacin HCl [Cipro] 500 mg tablet 500 mg PO BID 7 Days Qty: 14 0RF oxycodone-acetaminophen [Percocet] 5-325 mg tablet 1 tab PO Q4H MDD 6 PRN (Reason: pain) 4 Days Qty: 20 0RF ondansetron 4 mg tablet,disintegrating 4 mg PO Q8H PRN (Reason: nausea and vomiting) Qty: 7 0RF No Action budesonide-formoterol [Symbicort] 160-4.5 mcg/actuation HFA aerosol inhaler 2 puff INHALATION BID PRN (Reason: Wheezing) omeprazole 20 MG capsule 20 mg PO DAILY gabapentin 400 MG capsule 400 mg PO BIDCM pramipexole 0.5 MG tablet 1 mg PO QHS cefadroxil 500 mg capsule 500 mg PO BID Qty: 10 0RF oxycodone-acetaminophen [Percocet] 5-325 mg tablet 1 tab PO Q6H PRN (Reason: pain (scale score 7-10)) 5 Days Qty: 20 0RF Rx Instructions: 20 tabs (twenty) L.acidoph,saliva-B.bif-S.therm [Acidophilus Probiotic Blend] 175 mg capsule 1 cap PO DAILY Qty: 10 0RF Primary Care Provider: Josef Garcia Chi Referrals: Claudio Pena MD [Med Staff - Active Staff] - 3-5 Days if not improving Josef Garcia Chi, MD [Primary Care Provider] - Activity Restrictions/Additional Instructions: You have a left-sided kidney stone about 5 mm in size. This should pass. Typically an 8 mm or larger is when to get stuck. Oxycodone which is Percocet for pain. You may alternate Motrin in between. Plenty of fluids to help the stone pass. Strain your urine for the past stone. The antibiotic ciprofloxacin also noticed Cipro twice a day because you may also have a urinary tract infection. A urine culture will was sent and should return in about 2 days. Follow-up with the urologist if not improving. Return if intractable pain you cannot control, fever or intractable vomiting. I also wrote you for nausea medication called Teodoro. It will be at the pharmacy with your other 2 prescriptions. Disposition Disposition: Home, Self Care
[2022-03-26] MEDS: HYDROmorphone 1 MG/ML Syringe IV ×2 (16:11→17:26)
[2022-03-26] MEDS: 0.9% Normal Saline 1,000 ML 1000 ML IV (16:11)
[2022-03-26] MEDS: Ondansetron 4 MG/2 ML Vial IV (16:12)
[2022-03-26 16:45] LABS: Anion Gap 5 (5-15); BUN 15 mg/dL (7-18); Calcium,Total 10.1 mg/dL (8.5-10.1); Chloride 105 mmol/L (98-107); Creatinine, Serum 1.07 mg/dL (0.70-1.30); EST Glomerular Filtration Rate 75 mL/min (>60); Est Glom Filt Rate - Afr Amer 90 mL/min (>60); Estimated Creatinine Clearance 55.99 ml/min; Glucose 115 mg/dL (74-106); Potassium 4.2 mmol/L (3.5-5.1); Sodium Level 139 mmol/L (136-145)
[2022-03-26 17:42] LABS: Color, Urine Yellow (Yellow); Glucose, Dipstick Normal (Normal); Ketone-Dipstick 5 mg/dl (Negative); Leukocyte Esterase-Dipstick 25 /ul (Negative); Nitrite-Dipstick Negative (Negative); Occult Blood-Urine 250 /ul (Negative); Protein-Dipstick 30 mg/dl (Negative); Urine Bilirubin Dipstick Negative (Negative); Urine Clarity Sl. Cloudy (Clear); Urine Urobilinogen Normal (Normal)
[2022-03-26 18:06] LABS: Red Blood Cells-Urine 50-100 SEEN /hpf (0-5); Squamous Epithelial Cells - UA 0-5 SEEN /hpf (0-5); White Blood Cells 5-10 SEEN /hpf (0-5)
[2022-03-26 18:07] LABS: Bacteria 3+ /hpf (None Seen); Fine Granular Cast- Urine 5-10 SEEN /lpf (0-5); Mucous, Urine 2+ /hpf (<or=2+); White Cell Cast 0-5 SEEN /lpf (None Seen)
[2022-03-26] MEDS: Ciprofloxacin 500 MG Tablet PO (19:09)
== END 2022-03-26 19:11 | disposition home or self-care (01) ==
PROVIDERS: Emergency Provider Emergency Medicine; PCP Family Medicine Geriatric Medicine; Visit Provider Emergency Medicine
DX: N20.0 Calculus of kidney (principal); N39.0 Urinary tract infection, site not specified; F17.210 Nicotine dependence, cigarettes, uncomplicated
CPT/HCPCS: 74176; 80048; 81001; 87086; 96361; 96374; 96375; 96376; 99284; J7030; A4216; J2405

== ENCOUNTER 2022-03-27 22:49 | Emergency (ER) | payer MEDICARE, SELFPAY ==
[2022-03-27 22:50] VITALS: BP 166/87; PULSE 80; RESP 16; TEMP 36.1; O2SAT 93; BMI 36.6
[2022-03-27] MEDS: HYDROmorphone 0.5 MG/0.5 ML SYRINGE IV (23:22)
[2022-03-27] MEDS: Ondansetron 4 MG/2 ML Vial IV (23:22)
[2022-03-27] MEDS: 0.9% Normal Saline 1,000 ML 250 ML IV (23:25)
[2022-03-27 23:49] LABS: Absolute Lymphocyte Count 1.58 X10^3/uL (0.83-4.51); Absolute Neutrophil Count 10.5 X10^3/uL (2.0-7.7); Basophil# 0.02 X10^3/uL; Basophil% 0.1 % (0-1); Eosinophils% 0.7 % (0-5); Hematocrit 44.3 % (40-54); Hemoglobin 14.7 g/dL (13.0-16.5); Lymphocyte # 1.58 X10^3/ul (0.83-4.51); Lymphocyte % 11.6 % (19-41); Mean Corp Hgb Conc 33.2 g/dL (32-36); Mean Corpuscular Hgb 30.6 pg (27.0-32.0); Mean Corpuscular Volume 92.1 fL (80-94); Mean Platelet Vol. 9.1 fl (6.2-12.0); Monocyte# 1.34 X10^3/uL; Monocyte% 9.9 % (0-10); NRBC Flagged by Analyzer 0 % (0-5); Neutrophil # 10.51 X10^3/uL (2.7-7.7); Neutrophil % 77.3 % (47-70); Platelet Count 199 K/mm3 (150-450); RBC Distribution Width CV 14.3 % (11.6-14.6); RBC Distribution Width SD 48.5 fl (35.1-43.9); Red Blood Count 4.81 M/mm3 (4.6-6.2); White Blood Count 13.6 K/mm3 (4.4-11.0)
[2022-03-27 23:50] LABS: Color, Urine Yellow (Yellow); Glucose, Dipstick Normal (Normal); Ketone-Dipstick Negative (Negative); Leukocyte Esterase-Dipstick 25 /ul (Negative); Nitrite-Dipstick Negative (Negative); Occult Blood-Urine 250 /ul (Negative); Protein-Dipstick 30 mg/dl (Negative); Urine Bilirubin Dipstick Negative (Negative); Urine Clarity Clear (Clear); Urine Urobilinogen Normal (Normal)
--- NOTE | 2022-03-27 23:54 | EX.ED.DYSGE1 ---
HPI History of Present Illness Chief Complaint: Nausea/Vomiting Informant: patient Narrative Narrative: Patient is a 61-year-old male present with worsening left flank pain. Patient was seen in our ER yesterday for left flank pain and diagnosed with a 4 x 5 5 mm stone at the left UPJ with trace left hydronephrosis. He states he was doing fine until the afternoon when he developed nausea and vomiting. He states he cannot keep down his pain medicine. Continues to have left-sided abdominal pain in the same spot as yesterday. Is urinating. States he feels very hot and sweaty. No other complaints at this time. Does not have a urologist. Does have a history of prior kidney stones these passed on his own. [facility] Medical History Allergies Ambulates with cane Arthritis Back pain Back problem Blackout Bone fracture Cardiology follow-up encounter COPD (chronic obstructive pulmonary disease) CPAP (continuous positive airway pressure) dependence Dermatofibroma of chest Easy bruising Gastric reflux GERD (gastroesophageal reflux disease) History of diverticulitis History of echocardiogram History of edema History of pacemaker History of pain when walking History of stress test Injury of head and neck Kidney stones Leg cramps Presence of cardiac pacemaker Restless legs Shortness of breath on exertion Sick sinus syndrome Sinus arrest Smoker Smoker Syncope Syncope and collapse Wears dentures Wears glasses Home Medications omeprazole 20 mg capsule,delayed release 20 mg PO DAILY 11/25/13 [History Last Taken 07/06/19 08:00] gabapentin 400 mg capsule 400 mg PO BIDCM 09/17/15 [History Last Taken Unknown] pramipexole 0.5 mg tablet 1 mg PO QHS 11/18/18 [History Last Taken Unknown] budesonide-formoterol HFA 160 mcg-4.5 mcg/actuation aerosol inhaler (Symbicort) 2 puff inhalation BID PRN Wheezing 07/04/20 [History Last Taken Unknown] L.acidophil,salivari-Bifido bifidum-Strep thermoph 175 mg capsule (Acidophilus Probiotic Blend) 1 cap PO DAILY #10 caps 03/27/21 [Rx Last Taken Unknown] cefadroxil 500 mg capsule 500 mg PO BID #10 caps 03/27/21 [Rx Last Taken Unknown] oxycodone-acetaminophen 5 mg-325 mg tablet (Percocet) 1 tab PO Q6H PRN pain (scale score 7-10) 5 days #20 tabs 03/27/21 [Rx Last Taken Unknown] ciprofloxacin HCl 500 mg tablet (Cipro) 500 mg PO BID 7 days #14 tabs 03/26/22 [Rx Last Taken Unknown] ondansetron 4 mg disintegrating tablet 4 mg PO Q8H PRN nausea and vomiting #7 tabs 03/26/22 [Rx Last Taken Unknown] oxycodone-acetaminophen 5 mg-325 mg tablet (Percocet) 1 tab PO Q4H PRN pain 4 days #20 tabs 03/26/22 [Rx Last Taken Unknown] Allergy/AdvReac Type Severity Reaction Status Date / Time morphine AdvReac MAKES ME Verified 03/27/22 22:53 MAD Family History Mother Colon cancer Sister Breast cancer Sister Breast cancer Other CVA (cerebral vascular accident) Surgical History H/O cervical spine surgery H/O inguinal hernia repair History of esophagogastroduodenoscopy (EGD) History of heart surgery Hx of cholecystectomy Hx of colonoscopy Social History household members: spouse, children and other details: grandchildren housing: house current occupational status: unemployed pets and animals: No Smoking Status: Current every day smoker tobacco type: cigarettes alcohol intake: current alcohol intake frequency: holidays/special occasions only substance use type: does not use what type of physical activity do you participate in: none seatbelt use: never do you feel safe at home: Yes additional social history: Does Take Ibuprofen As Needed Does Not Take Aspirin ROS ROS ED Constitutional Constitutional ED: Denies chills or fever(s) Eyes Eyes: Denies change in vision ENT ENT ED: Denies sore throat Cardiovascular Cardiovascular: Denies chest pain Respiratory/Chest Respiratory/Chest: Denies cough Gastrointestinal Gastrointestinal: Reports abdominal pain, nausea and vomiting; Denies constipation or diarrhea Genitourinary Genitourinary ED: Denies dysuria or hematuria Musculoskeletal Musculoskeletal: Reports back pain; Denies arthralgias Integumentary Denies rash Neurologic Neurologic: Denies headache(s) or paresthesias Psychiatric Psychiatric: Denies anxiety EXAM Physical Exam Const Vital Signs: 03/27/22 22:50 03/28/22 01:55 Temperature 97.0 F L Temperature Source Temporal Pulse Rate 80 80 Respiratory Rate 16 17 Blood Pressure 166/87 H 130/74 H Blood Pressure Mean 113 92 Pulse Ox 93 97 Oxygen Delivery Method Room Air Room Air Positive well nourished and well developed Constitutional Narrative: uncomfortable appearing General Appearance ED: well developed HEENT Reports dry mucous membranes Mouth ED: Yes dry mucous membranes Mouth: dry mucous membranes Eyes PERRL and EOMs intact bilaterally Neck supple and no JVD Chest Wall inspection of chest normal Resp normal respiratory effort and clear to auscultation bilaterally Cardio regular rate, regular rhythm and no murmurs GI GI Narrative: Protuberant abdomen. Diffuse nonreproducible left abdominal pain Back/Spine no CVA tenderness Neuro oriented x3 Motor Exam: Negative for general weakness Psych mental status grossly normal Mood & Affect: anxious Skin no rashes or lesions noted MDM MDM MDM Narrative Medical decision making narrative: Patient is evaluated for recurrent left flank pain. Was diagnosed with an obstructing kidney stone yesterday. Given IV fluids, 0.5 mg IV Dilaudid and IV Zofran. On repeat evaluation he still having pain and has another episode of vomiting. Patient is given 1 mg IV Dilaudid with improvement of symptoms. He has a mild leukocytosis of 13.6 as well as a creatinine of 1.38. This is an elevation compared to yesterday where he was 1.07. Urinalysis does not show any pyuria at this time but does show 1+ bacteria with 0-5 squamous epithelial cells and 0-5 white blood cells. There is 10-25 red blood cells. Given intractable pain and worsening kidney function I think patient require admission. We do not currently have urology on so patient will be transferred to a facility that does have urology. In the meantime he is given IV fluids and further pain control. Patient is accepted at [facility] by Dr. Garcia. Case is also discussed with urology on-call there. COVID swab is pending. Patient hellen hemodynamically stable. He does require intermittently dosing of IV Dilaudid. Lab Data Labs: Laboratory Results - last 24 hr 03/27/22 03/27/22 03/27/22 23:40 23:40 23:40 WBC 13.6 H RBC 4.81 Hgb 14.7 Hct 44.3 MCV 92.1 MCH 30.6 MCHC 33.2 RDW Std Deviation 48.5 H RDW Coeff of Reinier 14.3 Plt Count 199 MPV 9.1 Immature Gran % (Auto) 0.400 Neut % (Auto) 77.3 H Lymph % (Auto) 11.6 L [place] % (Auto) 9.9 Eos % (Auto) 0.7 Baso % (Auto) 0.1 Absolute Neuts (auto) 10.5 H Absolute Lymphs (auto) 1.58 Nucleated RBC % 0 Sodium 141 Potassium 4.0 Chloride 106 Carbon Dioxide 28.0 Anion Gap 7 BUN 17 Creatinine 1.38 H Estim Creat Clear Calc 43.41 Est GFR (MDRD) Af Amer 67 Est GFR (MDRD) Non-Af 56 L BUN/Creatinine Ratio 12.3 Glucose 113 H Calcium 9.6 Urine Color Yellow Urine Clarity Clear Urine pH 5.0 Ur Specific [place] 1.030 Urine Protein 30 H Urine Glucose (UA) Normal Urine Ketones Negative Urine Occult Blood 250 H Urine Nitrite Negative Urine Bilirubin Negative Urine Urobilinogen Normal Ur Leukocyte Esterase 25 H Urine RBC 10-25 SEEN Urine WBC 0-5 SEEN Ur Squamous Epith Cells 0-5 SEEN Amorphous Sediment 1+ Urine Bacteria 1+ Hyaline Casts 0-5 SEEN Urine Mucus 2+ Urine Yeast RARE Discharge Plan Triage Chief Complaint: Nausea/Vomiting ED Provider: Lindsey Nazario Dx/Rx/DC Orders Clinical Impression: BERNARD (acute kidney injury), Kidney stone on left side, Acute left flank pain, Nausea & vomiting, Renal colic on left side Prescriptions: No Action budesonide-formoterol [Symbicort] 160-4.5 mcg/actuation HFA aerosol inhaler 2 puff INHALATION BID PRN (Reason: Wheezing) omeprazole 20 MG capsule 20 mg PO DAILY gabapentin 400 MG capsule 400 mg PO BIDCM pramipexole 0.5 MG tablet 1 mg PO QHS cefadroxil 500 mg capsule 500 mg PO BID Qty: 10 0RF oxycodone-acetaminophen [Percocet] 5-325 mg tablet 1 tab PO Q6H PRN (Reason: pain (scale score 7-10)) 5 Days Qty: 20 0RF Rx Instructions: 20 tabs (twenty) L.acidoph,saliva-B.bif-S.therm [Acidophilus Probiotic Blend] 175 mg capsule 1 cap PO DAILY Qty: 10 0RF ciprofloxacin HCl [Cipro] 500 mg tablet 500 mg PO BID 7 Days Qty: 14 0RF oxycodone-acetaminophen [Percocet] 5-325 mg tablet 1 tab PO Q4H MDD 6 PRN (Reason: pain) 4 Days Qty: 20 0RF ondansetron 4 mg tablet,disintegrating 4 mg PO Q8H PRN (Reason: nausea and vomiting) Qty: 7 0RF Primary Care Provider: Josef Garcia Chi Referrals: Josef Garcia Chi, MD [Primary Care Provider] - Disposition Disposition: Acute Care Hospital Discharge Location: [facility]
[2022-03-27 23:56] LABS: Red Blood Cells-Urine 10-25 SEEN /hpf (0-5); Squamous Epithelial Cells - UA 0-5 SEEN /hpf (0-5); White Blood Cells 0-5 SEEN /hpf (0-5)
[2022-03-27 23:57] LABS: Amorphous Sediment 1+; Bacteria 1+ /hpf (None Seen); Hyaline Cast 0-5 SEEN /lpf (0-5); Mucous, Urine 2+ /hpf (<or=2+); Yeast-Urine RARE /hpf (None Seen)
[2022-03-28 00:05] LABS: Anion Gap 7 (5-15); BUN 17 mg/dL (7-18); BUN/Creat Ratio 12.3 RATIO (10-20); Calcium,Total 9.6 mg/dL (8.5-10.1); Chloride 106 mmol/L (98-107); Creatinine, Serum 1.38 mg/dL (0.70-1.30); EST Glomerular Filtration Rate 56 mL/min (>60); Est Glom Filt Rate - Afr Amer 67 mL/min (>60); Estimated Creatinine Clearance 43.41 ml/min; Glucose 113 mg/dL (74-106); Sodium Level 141 mmol/L (136-145)
[2022-03-28] MEDS: HYDROmorphone 1 MG/ML Syringe IV (00:26)
[2022-03-28] MEDS: HYDROmorphone 0.5 MG/0.5 ML SYRINGE IV ×2 (01:54→06:47)
[2022-03-28] MEDS: 0.9% Normal Saline 1,000 ML 150 ML IV (01:54)
[2022-03-28 01:55] VITALS: BP 130/74; PULSE 80; RESP 17; O2SAT 97
[2022-03-28 04:39] VITALS: BP 122/66; PULSE 83; TEMP 35.8; O2SAT 95
--- NOTE | 2022-03-28 05:22 | NURSING ---
CALLED PHYSICIANS 0515 ETA 90MIN TO 2 HRS.
== END 2022-03-28 07:03 | disposition short-term general hospital (02) ==
PROVIDERS: Emergency Provider Emergency Medicine; PCP Family Medicine Geriatric Medicine; Visit Provider Emergency Medicine
DX: N17.9 Acute kidney failure, unspecified (principal); N20.0 Calculus of kidney; F17.210 Nicotine dependence, cigarettes, uncomplicated; R11.2 Nausea with vomiting, unspecified; Z95.0 Presence of cardiac pacemaker
CPT/HCPCS: 80048; 81001; 85025; 87811; 96374; 96375; 96376; 99284; J7030; A4216; J2405

== ENCOUNTER → 2022-04-09 | Outpatient (CLI) | payer MEDICARE, SELFPAY | END | disposition home or self-care (01) | LOC: POLAB3 16:20 | PROVIDERS: PCP Family Medicine Geriatric Medicine; Visit Provider Family Medicine Geriatric Medicine | DX: N39.0 Urinary tract infection, site not specified (principal) | CPT/HCPCS: 87086; 87088 ==

== ENCOUNTER → 2022-06-18 | Outpatient (CLI) | payer MEDICARE, SELFPAY | END | disposition home or self-care (01) | PROVIDERS: PCP Family Medicine Geriatric Medicine; Visit Provider Family Medicine Geriatric Medicine | DX: R68.83 Chills (without fever) (principal) | CPT/HCPCS: 87635; 87804; 87807; C9803; U0003; U0005 ==

== ENCOUNTER → 2022-09-09 | Outpatient (CLI) | payer MEDICARE, SELFPAY ==
--- NOTE | 2022-09-09 15:25 | RAD_ITS ---
INDICATION: SOB EXAMINATION/TECHNIQUE: X-RAY - XR Chest 2 Views COMPARISON: 09/27/2020. FINDINGS: Stable scattered small calcified granulomas. Tortuous and calcified thoracic aorta. The heart is not enlarged. Left-sided cardiac device. No pleural effusion or pneumothorax. No acute osseous abnormalities. RAD/Chest PA and Lateral IMPRESSION: No acute radiographic abnormalities. Electronically Signed: Joce Harmon MD at 18:24 EST ,
[2022-09-09 17:40] LABS: Absolute Lymphocyte Count 1.92 X10^3/uL (0.83-4.51); Absolute Neutrophil Count 3.9 X10^3/uL (2.0-7.7); Basophil# 0.02 X10^3/uL; Basophil% 0.3 % (0-1); Eosinophil# 0.15 X10^3/uL; Eosinophils% 2.2 % (0-5); Hematocrit 41.5 % (40-54); Hemoglobin 13.8 g/dL (13.0-16.5); Lymphocyte # 1.92 X10^3/ul (0.83-4.51); Mean Corp Hgb Conc 33.3 g/dL (32-36); Mean Corpuscular Hgb 30.2 pg (27.0-32.0); Mean Corpuscular Volume 90.8 fL (80-94); Monocyte# 0.82 X10^3/uL; NRBC Flagged by Analyzer 0 % (0-5); Neutrophil # 3.94 X10^3/uL (2.7-7.7); Neutrophil % 57.4 % (47-70); Platelet Count 242 K/mm3 (150-450); RBC Distribution Width CV 13.5 % (11.6-14.6); RBC Distribution Width SD 45.3 fl (35.1-43.9); Red Blood Count 4.57 M/mm3 (4.6-6.2); White Blood Count 6.9 K/mm3 (4.4-11.0)
[2022-09-09 18:03] LABS: ALB/GLOB Ratio 1.1 RATIO (0.9-2.4); AST(SGOT) 27 U/L (15-37); Alanine Aminotransfer ALT/SGPT 30 U/L (16-61); Albumin, Serum 3.8 g/dL (3.2-5.0); Alkaline Phosphatase 127 U/L (45-117); Anion Gap 7 (5-15); BUN 9 mg/dL (7-18); BUN/Creat Ratio 10.3 RATIO (10-20); Calcium,Total 9.5 mg/dL (8.5-10.1); Chloride 107 mmol/L (98-107); Creatinine, Serum 0.87 mg/dL (0.70-1.30); EST Glomerular Filtration Rate 94 mL/min (>60); Est Glom Filt Rate - Afr Amer 114 mL/min (>60); Globulin 3.4 g/dL (2.2-4.2); Glucose 84 mg/dL (74-106); Potassium 3.9 mmol/L (3.5-5.1); Protein, Total 7.2 g/dL (6.4-8.2); Sodium Level 142 mmol/L (136-145)
[2022-09-09 19:42] LABS: BNP,B-Type NATRIURETIC PEPTIDE 18.2 pg/mL (0-100)
== END | disposition home or self-care (01) ==
PROVIDERS: PCP Family Medicine Geriatric Medicine; Referring Provider Family Medicine Geriatric Medicine; Visit Provider Family Medicine Geriatric Medicine
DX: R06.02 Shortness of breath (principal)
CPT/HCPCS: 36415; 71046; 80053; 83880; 85025

== ENCOUNTER → 2022-09-15 | Outpatient (CLI) | payer MEDICARE, SELFPAY ==
[2022-09-15 13:12] LABS: Erythrocyte Sedimentation Rate 18 mm/hr (0-20)
[2022-09-15 13:15] LABS: CRP 4.84 mg/L (0.0-3.0); Uric Acid 7.1 mg/dL (3.5-7.2)
== END | disposition home or self-care (01) ==
LOC: POLAB3 11:21
PROVIDERS: PCP Family Medicine Geriatric Medicine; Visit Provider Family Medicine Geriatric Medicine
DX: R60.9 Edema, unspecified (principal)
CPT/HCPCS: 36415; 84550; 85652; 86140

== ENCOUNTER → 2022-10-14 | Outpatient (CLI) | payer MEDICARE, SELFPAY ==
--- NOTE | 2022-10-14 16:12 | RAD_ITS ---
INDICATION: ankle pain EXAMINATION/TECHNIQUE: X-RAY - RIGHT XR Ankle Min 3 Views 6 VIEWS COMPARISON: No previous relevant examinations available for comparison. FINDINGS: SOFT TISSUES: No soft tissue swelling or gas. No radiopaque foreign body. BONES/JOINTS: No acute fracture or subluxation.. Normal alignment. Preservation of the joint space.. No sclerotic or destructive changes observed. RAD/Ankle min 3 Views IMPRESSION: 1. No evidence fracture malalignment or focal bony or joint space abnormality. Electronically Signed: Humza Maldonado MD at 1:10 EDT ,
--- NOTE | 2022-10-14 16:30 | RAD_ITS ---
INDICATION: PAIN EXAMINATION/TECHNIQUE: X-RAY - RIGHT XR Hip Unilateral with Pelvis when performed; 2-3 Views 3 VIEWS COMPARISON: 11/26/2020 FINDINGS: SOFT TISSUES: No soft tissue swelling or gas. No radiopaque foreign body. BONES/JOINTS: No acute fracture or subluxation.. Normal alignment. Joint spaces are maintained. No dislocation. Visualized pelvic ring is intact. There is irregular chronic appearing appearance of the pubic symphysis.. Early degenerative changes noted involving the acetabular roof bilaterally greater on LEFT than RIGHT. Findings are stable. RAD/HIP, UNI W/ Pelvis 2-3 Views IMPRESSION: 1. Stable exam. 2. No evidence fracture dislocation or malalignment. Early degenerative changes involving the acetabular roof bilaterally. Joint space is maintained. 3. Irregular appearance of the pubis which may represent sequelae of remote osteitis pubis. Electronically Signed: Humza Maldonado MD at 1:16 EDT ,
== END | disposition home or self-care (01) ==
LOC: RAD 16:10
PROVIDERS: PCP Family Medicine Geriatric Medicine; Visit Provider Family Medicine Geriatric Medicine
DX: M25.551 Pain in right hip (principal); M25.571 Pain in right ankle and joints of right foot
CPT/HCPCS: 73502; 73610

== ENCOUNTER → 2022-10-15 | Outpatient (CLI) | payer MEDICARE, SELFPAY ==
--- NOTE | 2022-10-15 13:05 | VDLE_ITS ---
Reason For Study: Edema RIGHT LEFT GSV is normal. CFV is compressible, spontaneous, phasic, CFV is compressible, spontaneous, phasic, competent, and demonstrates normal competent and demonstrates normal augmentation. augmentation. FV is compressible, spontaneous, phasic, competent and demonstrates normal augmentation. POP V is compressible, spontaneous, phasic, competent and demonstrates normal augmentation. T/P Trunk is compressible. PTV is compressible. RT PerV is compressible. Incidental Finding Rt SFA Prox PSV - 36.5 cm/s Drumbeat doppler waveform noted. Rt Profunda Femoral Artery Prox PSV - 263.9 cm/s. Procedure This is a venous duplex using B-mode, color flow and spectral Doppler. Exam performed in department. The exam was diagnostic. A preliminary report was called and/or faxed to Dr. Garcia's office. VL/Venous Duplex US, Unilateral Interpretation Summary Deep veins of the right lower extremity are patent and compressible segmentally . There is no evidence of right lower extremity deep vein thrombosis. The right great sapheno us vein appears patent and compressible segmentally. Proximal right SFA with high resistance/pre-occlusive waveform morphology Ordering Physician: Josef Garcia Chi Referring Physician: Josef Garcia Chi Performed By: Jarrell Richard, RVT
== END | disposition home or self-care (01) ==
LOC: CVS 13:04
PROVIDERS: PCP Family Medicine Geriatric Medicine; Referring Provider Family Medicine Geriatric Medicine; Visit Provider Family Medicine Geriatric Medicine
DX: R60.0 Localized edema (principal)
CPT/HCPCS: 93971

== ENCOUNTER → 2022-10-28 | Outpatient (CLI) | payer MEDICARE, SELFPAY ==
[2022-10-28 13:55] LABS: Anion Gap 0 (5-15); BUN 11 mg/dL (7-18); BUN/Creat Ratio 11.8 RATIO (10-20); Calcium,Total 9.2 mg/dL (8.5-10.1); Chloride 108 mmol/L (98-107); Creatinine, Serum 0.93 mg/dL (0.70-1.30); EST Glomerular Filtration Rate 87 mL/min (>60); Est Glom Filt Rate - Afr Amer 106 mL/min (>60); Glucose 113 mg/dL (74-106); Potassium 3.8 mmol/L (3.5-5.1); Sodium Level 136 mmol/L (136-145)
== END | disposition home or self-care (01) ==
LOC: LAB 12:53
PROVIDERS: PCP Family Medicine Geriatric Medicine; Referring Provider Internal Medicine Pulmonary Disease; Visit Provider Internal Medicine Pulmonary Disease
DX: J44.9 Chronic obstructive pulmonary disease, unspecified (principal); R06.02 Shortness of breath
CPT/HCPCS: 36415; 80048

== ENCOUNTER 2022-11-28 21:21 | Emergency (ER) | payer MEDICARE, SELFPAY ==
[2022-11-28 21:21] VITALS: BP 100/57; PULSE 89; RESP 16; TEMP 36.7; O2SAT 94; BMI 36.3
[2022-11-28 21:23] VITALS: O2SAT 96
--- NOTE | 2022-11-28 21:41 | EDS_ITS ---
HPI History of Present Illness Chief Complaint: Shortness of Breath PFSH PFSH Medical History Allergies Ambulates with cane Arthritis Back pain Back problem Blackout Bone fracture Cardiology follow-up encounter COPD (chronic obstructive pulmonary disease) CPAP (continuous positive airway pressure) dependence Dermatofibroma of chest Easy bruising Gastric reflux GERD (gastroesophageal reflux disease) History of diverticulitis History of echocardiogram History of edema History of pacemaker History of pain when walking History of stress test Injury of head and neck Kidney stones Leg cramps Presence of cardiac pacemaker Restless legs Shortness of breath on exertion Sick sinus syndrome Sinus arrest Smoker Smoker Syncope Syncope and collapse Wears dentures Wears glasses Home Medications omeprazole 20 mg capsule,delayed release 20 mg PO DAILY 11/25/13 [History Last Taken 07/06/19 08:00] budesonide-formoterol HFA 160 mcg-4.5 mcg/actuation aerosol inhaler (Symbicort) 2 puff inhalation BID PRN Wheezing 07/04/20 [History Last Taken Unknown] bupropion HCl (smoking deter) 150 mg tablet,12 hr sustained-release(smoking deterrent) 150 mg PO BID 04/11/22 [History Last Taken Unknown] pramipexole 0.5 mg tablet 0.5 mg PO QHS 04/11/22 [History Last Taken Unknown] albuterol sulfate 90 mcg/actuation aerosol inhaler 2 puff inhalation Q4H PRN shortness of breath or wheezing 06/26/22 [History Last Taken Unknown] gabapentin 400 mg capsule 400 mg PO BID 06/26/22 [History Last Taken Unknown] Allergy/AdvReac Type Severity Reaction Status Date / Time morphine AdvReac MAKES ME Verified 11/28/22 21:23 MAD Family History Mother Colon cancer Sister Breast cancer Sister Breast cancer Other CVA (cerebral vascular accident) Surgical History H/O cervical spine surgery H/O inguinal hernia repair History of esophagogastroduodenoscopy (EGD) History of heart surgery Hx of cholecystectomy Hx of colonoscopy Social History household members: spouse, children and other details: grandchildren housing: house current occupational status: unemployed pets and animals: No Smoking Status: Current every day smoker tobacco type: cigarettes alcohol intake: current alcohol intake frequency: holidays/special occasions only substance use type: does not use caffeine: Yes Type: carbonated beverages Number of servings: 3 and coffee Number of servings: 1 what type of physical activity do you participate in: none seatbelt use: never do you feel safe at home: Yes additional social history: Does Take Ibuprofen As Needed Does Not Take Aspirin EXAM Physical Exam Const Vital Signs: 11/28/22 21:21 11/28/22 21:23 11/28/22 23:27 Temperature 98.1 F Temperature Source Temporal Pulse Rate 89 85 Respiratory Rate 16 18 Respiratory Effort Normal Non-Labored Respiratory Depth Normal Respiratory Pattern Tachypnea Blood Pressure 100/57 L 142/69 H Blood Pressure Mean 71 93 Pulse Ox 94 96 Oxygen Delivery Method Room Air Room Air Room Air MDM MDM MDM Narrative Medical decision making narrative: HISTORY OF PRESENT ILLNESS: 62-year-old male here with shortness of breath. The patient states this began over the last 24 hours. He notes diffuse weakness. Denies chest pain but notes shortness of breath. Notes coughing yesterday. Notes feeling warm but denies fever. The patient denies recent surgery in the last 4 weeks or immobilization in the last 3 days, denies previous diagnosis of DVT or PE, hemoptysis, unilateral leg swelling or malignancy with treatment the last 6 months. No estrogen use noted. He denies lower extremity edema, orthopnea or paroxysmal nocturnal dyspnea. He endorses history of COPD but states he is never had any issues with it. He denies being vaccinated against COVID or flu REVIEW OF SYSTEMS: Pertinent positives: Shortness of breath, weakness, diarrhea, Pertinent negatives: Chest pain, syncope, focal weakness, abdominal pain PHYSICAL EXAM: Nursing triage notes reviewed, Vital signs reviewed Constitutional: please see mdm HENT: MMM Eyes: Pupils equal round and reactive to light, Extraocular muscles intact Neck: No stridor, no JVD, full neck ROM Lungs: Clear to auscultation, No wheezing or rales. No increased work of breathing, no conversational dyspnea, no accessory muscle use, no nasal flaring. No respiratory distress noted Heart: Regular rate and rhythm, No murmurs, No rubs and No gallops, 2+ distal pulses (radial, femoral, posterior tibial) in all extremities Abdomen: Soft, there is no tenderness, rigidity, rebound or guarding, no obvious peritoneal signs, no palpable pulsatile abdominal masses, no auscultated abdominal bruit : No CVAT Extremities: No edema Neuro: No focal neurological deficits, cranial nerves II through XII intact, 5/5 strength in all extremities. Intact sensation to light touch in all extremities, 2+ reflexes bilateral patella tendons. Normal gait. No ataxia. Skin: No rash or lesions noted MEDICAL DECISION MAKING: Chief Complaint: Shortness of breath External records reviewed: Echocardiogram from 2013 shows ejection fraction of 65% MDM Narrative: The patient initially had soft blood pressures, otherwise he was hemodynamically stable afebrile and saturating well on room air. No increased work of breathing, no focal lung findings, consolidation, wheezing or rales. He had no lower extremity edema or signs of volume overload. I considered the following differential diagnosis: Pneumonia, COPD exacerbation, ACS, arrhythmia, anemia, electrolyte abnormalities, COVID, flu, PE I considered PE as a potential etiology however the patient low risk Wells score and as such have a low suspicion for PE. I considered obtaining a CT of the chest however things unnecessary likely counterproductive at this time. CT scan likely confers more risk than misdiagnosis given low risk Wells score and 1.3% risk of PE in this population. I obtained a broad lab and imaging work-up to further elucidate the etiology of the patient's complaints. EKG without evidence of arrhythmia or myocardial ischemia. Labs without evidence of myocardial ischemia, severe electrolyte abnormality, severe anemia, volume overload, COVID or flu. No clear life-limiting etiology could be ascertained. The patient's initial soft blood pressure improved without intervention. He was ambulated without evidence of hypoxia. No clear life-limiting etiology could be ascertained. The patient may be suffering from a viral illness causing fatigue and shortness of breath. There is no signs of viral pneumonia on chest x-ray. Given the patient's unremarkable labs, images and stable vitals I think is appropriate for discharge home with close outpatient follow-up for further treatment and evaluation. I discussed the plan of care with the patient and and they agreed. Factors affecting care: History of sick sinus syndrome, GERD, syncope, status post cardiac pacemaker, Social determinants of health: Current everyday smoker History obtained from others: The patient's Shared decision making: I will have a discussion with the patient and or visitors regarding risk/benefits of further testing or admission. They will be made aware of of the risk/benefits inherent in this decision they will be given the opportunity to voice understanding. Consults: Trini Lab Data Attestation: I reviewed the patient's lab results. Lab results narrative: EKG with normal sinus rhythm, left axis deviation, normal intervals, no STEMI, no ischemic changes. Appears similar to prior EKG from April 2020 CBC without leukocytosis, severe anemia, no thrombocytopenia. BMP without evidence of significant electrolyte abnormalities, no anion gap, no acute kidney injury. Troponin is negative, no evidence of myocardial ischemia BNP within normal limits, this indicates no increased ventricular stretch, no volume overload, no increased transmural wall pressure COVID flu negative Labs: Laboratory Results - last 24 hr 11/28/22 11/28/22 11/28/22 22:13 22:13 22:13 WBC 9.7 RBC 4.96 Hgb 14.7 Hct 45.3 MCV 91.3 MCH 29.6 MCHC 32.5 RDW Std Deviation 48.7 H RDW Coeff of Reinier 14.5 Plt Count 240 MPV 9.0 Immature Gran % (Auto) 0.300 Neut % (Auto) 70.4 H Lymph % (Auto) 18.3 L [place] % (Auto) 9.8 Eos % (Auto) 1.1 Baso % (Auto) 0.1 Absolute Neuts (auto) 6.8 Absolute Lymphs (auto) 1.77 Nucleated RBC % 0 Sodium 138 Potassium 4.3 Chloride 103 Carbon Dioxide 26.0 Anion Gap 9 BUN 18 Creatinine 1.12 Estim Creat Clear Calc 52.81 Est GFR (MDRD) Af Amer 85 Est GFR (MDRD) Non-Af 71 BUN/Creatinine Ratio 16.1 Glucose 103 Calcium 9.6 Troponin I High Sens 4 B-Natriuretic Peptide 10.4 Radiography Diagnostic Testing: Clinical Impression(s) from Imaging Studies Chest X-Ray 11/28/22 22:15 IMPRESSION: No definite acute or significant abnormality seen. Electronically Signed: Emeka Richardson MD at 22:39 EDT , Discharge Plan Triage Chief Complaint: Shortness of Breath ED Provider: Bernardo Linton Dx/Rx/DC Orders Clinical Impression: SOB (shortness of breath) Instructions: ED Dyspnea Prescriptions: No Action budesonide-formoterol [Symbicort] 160-4.5 mcg/actuation HFA aerosol inhaler 2 puff INHALATION BID PRN (Reason: Wheezing) bupropion HCl (smoking deter) 150 mg tablet extended release 12 hr 150 mg PO BID gabapentin 400 mg capsule 400 mg PO BID albuterol sulfate 90 mcg/actuation HFA aerosol inhaler 2 puff inhalation Q4H PRN (Reason: shortness of breath or wheezing) Label Comments: INHALE 2 PUFFS BY MOUTH EVERY 4 HOURS NEEDED omeprazole 20 MG capsule 20 mg PO DAILY pramipexole 0.5 mg tablet 0.5 mg PO QHS Primary Care Provider: Josef Garcia Chi Referrals: Josef Garcia Chi, MD [Primary Care Provider] - Activity Restrictions/Additional Instructions: Thank you for trusting us with your care today! Please take Tylenol (2 pills, 650 mg), ibuprofen (2 pills, 400 mg) every 6 hours as needed for pain and fever control. Please return to the emergency department if your symptoms change or worsen. Please follow with your primary care physician for further outpatient evaluation and management. Disposition Disposition: Home, Self Care
--- NOTE | 2022-11-28 21:59 | EKG12_ITS ---
Test Reason : DYSRHYTHMIA Blood Pressure : / mmHG Vent. Rate : 082 BPM Atrial Rate : 082 BPM P-R Int : 134 ms QRS Dur : 086 ms QT Int : 378 ms P-R-T Axes : 039 000 007 degrees QTc Int : 441 ms Normal sinus rhythm Nonspecific ST abnormality Abnormal ECG Confirmed by ESTEFANY MORTENSEN, CATERINA ([id number]), editor in chief FAUSTINA BINGHAM ([id number]) on 12/01/2022 11:36:25 AM Referred By: GEORGETTE Confirmed By:CATERINA ALLISON MD
--- NOTE | 2022-11-28 22:15 | RAD_ITS ---
STUDY: X-RAY CHEST REASON FOR EXAM: Male, 62 years old. Shortness of breath, cough TECHNIQUE: Frontal and lateral views of the chest. COMPARISON: 09/09/2022 FINDINGS: The lungs are clear and expanded. Stable small calcified granuloma right upper lobe. There is no demonstrated pleural abnormality. Normal size heart. Pacemaker is seen with leads terminating in the right atrium and right ventricle. Normal mediastinum and manda. Normal visualized pulmonary arteries. Normal visualized aortic arch and descending thoracic aorta. Normal visualized thoracic spine. Normal visualized ribs, clavicles, and shoulders. There is no demonstrated abnormality of the visualized soft tissue structures of the upper abdomen. RAD/Chest PA and Lateral IMPRESSION: No definite acute or significant abnormality seen. Electronically Signed: Emeka Richardson MD at 22:39 EDT ,
[2022-11-28 22:21] LABS: Absolute Lymphocyte Count 1.77 X10^3/uL (0.83-4.51); Absolute Neutrophil Count 6.8 X10^3/uL (2.0-7.7); Basophil# 0.01 X10^3/uL; Basophil% 0.1 % (0-1); Eosinophil# 0.11 X10^3/uL; Eosinophils% 1.1 % (0-5); Hematocrit 45.3 % (40-54); Hemoglobin 14.7 g/dL (13.0-16.5); Lymphocyte # 1.77 X10^3/ul (0.83-4.51); Lymphocyte % 18.3 % (19-41); Mean Corp Hgb Conc 32.5 g/dL (32-36); Mean Corpuscular Hgb 29.6 pg (27.0-32.0); Mean Corpuscular Volume 91.3 fL (80-94); Monocyte# 0.95 X10^3/uL; Monocyte% 9.8 % (0-10); NRBC Flagged by Analyzer 0 % (0-5); Neutrophil # 6.81 X10^3/uL (2.7-7.7); Neutrophil % 70.4 % (47-70); Platelet Count 240 K/mm3 (150-450); RBC Distribution Width CV 14.5 % (11.6-14.6); RBC Distribution Width SD 48.7 fl (35.1-43.9); Red Blood Count 4.96 M/mm3 (4.6-6.2); White Blood Count 9.7 K/mm3 (4.4-11.0)
[2022-11-28 22:40] LABS: Anion Gap 9 (5-15); BUN 18 mg/dL (7-18); BUN/Creat Ratio 16.1 RATIO (10-20); Calcium,Total 9.6 mg/dL (8.5-10.1); Chloride 103 mmol/L (98-107); Creatinine, Serum 1.12 mg/dL (0.70-1.30); EST Glomerular Filtration Rate 71 mL/min (>60); Est Glom Filt Rate - Afr Amer 85 mL/min (>60); Estimated Creatinine Clearance 52.81 ml/min; Glucose 103 mg/dL (74-106); Potassium 4.3 mmol/L (3.5-5.1); Sodium Level 138 mmol/L (136-145); Troponin-I HS 4 pg/mL (3.0-78.0)
[2022-11-28 22:49] LABS: BNP,B-Type NATRIURETIC PEPTIDE 10.4 pg/mL (0-100)
[2022-11-28 23:27] VITALS: BP 142/69; PULSE 85; RESP 18; O2SAT 95; O2SAT 96
[2022-11-29] MEDS: Calcium Carbonate 500 MG Tablet PO
[2022-11-29 00:06] VITALS: BP 125/64
== END 2022-11-29 00:07 | disposition home or self-care (01) ==
PROVIDERS: Emergency Provider Emergency Medicine; PCP Family Medicine Geriatric Medicine; Visit Provider Emergency Medicine
DX: R06.02 Shortness of breath (principal); F17.210 Nicotine dependence, cigarettes, uncomplicated; Z95.0 Presence of cardiac pacemaker
CPT/HCPCS: 71046; 80048; 83880; 84484; 85025; 87428; 93005; 99284

== ENCOUNTER → 2022-12-01 | Outpatient (CLI) | payer MEDICARE, SELFPAY ==
[2022-12-01 16:57] LABS: Squamous Epithelial Cells - UA 0 SEEN /hpf (0-5); White Blood Cells 0 SEEN /hpf (0-5)
[2022-12-01 17:23] LABS: Color, Urine Yellow (Yellow); Glucose, Dipstick Normal (Normal); Ketone-Dipstick 5 mg/dl (Negative); Leukocyte Esterase-Dipstick Negative /ul (Negative); Nitrite-Dipstick Negative (Negative); Occult Blood-Urine 10 /ul (Negative); Protein-Dipstick 15 mg/dl (Negative); Specific Gravity, Urine 1.025 (1.002-1.030); Urine Bilirubin Dipstick Negative (Negative); Urine Clarity Clear (Clear); Urine Urobilinogen Normal (Normal)
[2022-12-01 17:31] LABS: Bacteria RARE /hpf (None Seen); Mucous, Urine 1+ /hpf (<or=2+); Red Blood Cells-Urine 0-5 SEEN /hpf (0-5)
== END | disposition home or self-care (01) ==
LOC: LAB 16:55
PROVIDERS: PCP Family Medicine Geriatric Medicine; Referring Provider Family Medicine Geriatric Medicine; Visit Provider Family Medicine Geriatric Medicine
DX: R30.0 Dysuria (principal)
CPT/HCPCS: 81001

== ENCOUNTER → 2023-01-01 | Outpatient (CLI) | payer MEDICARE, SELFPAY ==
[2023-01-01 11:01] LABS: Absolute Lymphocyte Count 1.89 X10^3/uL (0.83-4.51); Absolute Neutrophil Count 4.3 X10^3/uL (2.0-7.7); Basophil# 0.01 X10^3/uL; Basophil% 0.1 % (0-1); Eosinophil# 0.12 X10^3/uL; Eosinophils% 1.7 % (0-5); Hemoglobin 14.3 g/dL (13.0-16.5); Lymphocyte # 1.89 X10^3/ul (0.83-4.51); Lymphocyte % 26.5 % (19-41); Mean Corp Hgb Conc 31.8 g/dL (32-36); Mean Corpuscular Hgb 29.6 pg (27.0-32.0); Mean Corpuscular Volume 93.2 fL (80-94); Mean Platelet Vol. 9.3 fl (6.2-12.0); Monocyte% 11.2 % (0-10); NRBC Flagged by Analyzer 0 % (0-5); Neutrophil # 4.29 X10^3/uL (2.7-7.7); Neutrophil % 60.1 % (47-70); Platelet Count 240 K/mm3 (150-450); RBC Distribution Width CV 14.6 % (11.6-14.6); RBC Distribution Width SD 49.7 fl (35.1-43.9); Red Blood Count 4.83 M/mm3 (4.6-6.2); White Blood Count 7.1 K/mm3 (4.4-11.0)
[2023-01-01 12:14] LABS: AST(SGOT) 11 U/L (15-37); Alanine Aminotransfer ALT/SGPT 22 U/L (16-61); Albumin, Serum 3.6 g/dL (3.2-5.0); Alkaline Phosphatase 141 U/L (45-117); Anion Gap 6 (5-15); BUN 15 mg/dL (7-18); BUN/Creat Ratio 17.7 RATIO (10-20); Calcium,Total 9.4 mg/dL (8.5-10.1); Chloride 105 mmol/L (98-107); Creatinine, Serum 0.85 mg/dL (0.70-1.30); EST Glomerular Filtration Rate 97 mL/min (>60); Est Glom Filt Rate - Afr Amer 118 mL/min (>60); Globulin 3.6 g/dL (2.2-4.2); Glucose 95 mg/dL (74-106); PSA,Total - Annual Screen 0.76 ng/mL (0.00-4.00); Protein, Total 7.2 g/dL (6.4-8.2); Sodium Level 137 mmol/L (136-145); Thyroid Stim Hormone (TSH) 1.55 uIU/mL (0.358-3.74)
== END | disposition home or self-care (01) ==
LOC: LAB 10:30
PROVIDERS: PCP Family Medicine Geriatric Medicine; Referring Provider Family Medicine Geriatric Medicine; Visit Provider Family Medicine Geriatric Medicine
DX: R53.83 Other fatigue (principal); Z12.5 Encounter for screening for malignant neoplasm of prostate
CPT/HCPCS: 36415; 80053; 84153; 84443; 85025; G0103

== ENCOUNTER → 2023-02-25 | Outpatient (CLI) | payer MEDICARE, SELFPAY ==
--- NOTE | 2023-02-25 11:15 | RAD_ITS ---
INDICATION: R KNEE PAIN EXAMINATION/TECHNIQUE: X-RAY - RIGHT XR Knee 3 Views COMPARISON: None. FINDINGS: SOFT TISSUES: Infrapatellar soft tissue swelling. No evidence of a significant effusion. BONES/JOINTS: No fracture or dislocation. Chondrocalcinosis of the medial and lateral compartments. No erosive changes. RAD/Knee 3 Views IMPRESSION: Chondrocalcinosis. Electronically Signed: Jak Perez DO at 23:43 EDT ,
== END | disposition home or self-care (01) ==
LOC: RAD 11:11
PROVIDERS: PCP Family Medicine Geriatric Medicine; Referring Provider Family Medicine Geriatric Medicine; Visit Provider Family Medicine Geriatric Medicine
DX: M25.561 Pain in right knee (principal)
CPT/HCPCS: 73562

== ENCOUNTER → 2023-04-09 | Outpatient (CLI) | payer MEDICARE, SELFPAY ==
--- NOTE | 2023-04-09 07:57 | CT_ITS ---
STUDY: LOW DOSE CT LUNG CANCER SCREENING REASON FOR EXAM: Male, 62 years old. HX OF SMOKING. The patient smoked 1 pack per day for 50 years. RADIATION DOSAGE (If Supplied By Facility): CTDIvol = ( 3.02 ) mGy, DLP = ( 98.92 ) mGycm TECHNIQUE: No contrast was administered. Low dose technique was utilized (average mAS-38 and kVp 120). 1.25 mm axial source images with a slice interval of 1.25-mm were reconstructed in lung windows. 2.5 mm axial source images with a slice interval of 2.5-mm were reconstructed in lung windows. 5.0 mm axial source images with a slice interval of 5.0-mm were reconstructed in soft tissue windows. COMPARISON: Comparison is made with prior study dated December 26, 2021. NODULES: Stable 6.6 mm calcified granuloma in the posterior aspect of the right upper lobe as seen on axial image #67. Emphysema: Minimal linear scarring at the lung bases. Endobronchial lesion: None Aorta: Mild atherosclerotic plaque formation of the aortic arch. CORONARY ARTERIES: Coronary artery calcification is seen. A left-sided dual-chamber pacemaker is seen. Heart: Unremarkable Pulmonary artery: Unremarkable Mediastinal nodes: Calcified right hilar lymph nodes. Other chest and abdominal findings: CT/Low Dose CT Lung Screening IMPRESSION: Lung-RADS category 2 - Continue annual screening with LDCT in 12 months. IMPORTANT NOTES FOR USE: ACR Lung-RADS Version 1.1 Assessment Categories Release Date: 2018 Category: Coded 0-4 bases on nodule(s) with highest degree of suspicion. Negative screen is defined as categories 1 and 2; a positive screen is defined as categories 3 and 4. Category 3 and 4A nodules that are unchanged on interval CT should be coded as category 2, and individuals returned to screening in 12 months. Category 4X: Category 3 or 4 nodules with additional imaging findings that increase the suspicion of lung cancer, such as spiculation, GGN that doubles in size in 1 year, enlarged lymph notes, etc. Category Modifiers: S (significant finding unrelated to lung cancer) Electronically Signed: Dorian Chauhan MD at 14:51 EDT ,
== END | disposition home or self-care (01) ==
LOC: CT 07:57
PROVIDERS: PCP Family Medicine Geriatric Medicine; Referring Provider Internal Medicine Pulmonary Disease; Visit Provider Internal Medicine Pulmonary Disease
DX: Z12.2 Encounter for screening for malignant neoplasm of respiratory organs (principal); Z87.891 Personal history of nicotine dependence
CPT/HCPCS: 71271

== ENCOUNTER → 2023-05-27 | Outpatient (CLI) | payer MEDICARE, SELFPAY ==
--- NOTE | 2023-05-27 15:00 | RAD_ITS ---
EXAM: XR ABDOMEN, 2 VIEWS CLINICAL INDICATION: FECAL IMPACTION TECHNIQUE: Frontal view of the abdomen/pelvis with upright view of the abdomen. COMPARISON: CT abdomen and pelvis, 03/26/2022 FINDINGS: LOWER THORAX: Cardiac pacer leads partially visualized. INTRAPERITONEAL SPACE: No free air. GASTROINTESTINAL TRACT: Mild diffuse colonic stool and minimal gas. No evidence of ileus or obstruction. ORGANS: Normal as visualized. No organomegaly. No abnormal calcifications. BONES/JOINTS: Degenerative changes in the spine, SI joints, and hips. SOFT TISSUES: No acute pathology. RAD/Abd Inc Decub and/or Erect IMPRESSION: Mild diffuse colonic stool and minimal gas. No evidence of ileus or obstruction. Electronically Signed: Mohsen Mann DO at 21:00 EST ,
[2023-05-27 16:18] LABS: Absolute Lymphocyte Count 1.95 X10^3/uL (0.83-4.51); Absolute Neutrophil Count 3.9 X10^3/uL (2.0-7.7); Basophil# 0.02 X10^3/uL; Basophil% 0.3 % (0-1); Eosinophil# 0.11 X10^3/uL; Eosinophils% 1.6 % (0-5); Hematocrit 45.6 % (40-54); Hemoglobin 14.4 g/dL (13.0-16.5); Lymphocyte # 1.95 X10^3/ul (0.83-4.51); Lymphocyte % 28.9 % (19-41); Mean Corp Hgb Conc 31.6 g/dL (32-36); Mean Corpuscular Hgb 29.6 pg (27.0-32.0); Mean Corpuscular Volume 93.8 fL (80-94); Mean Platelet Vol. 9.7 fl (6.2-12.0); Monocyte# 0.79 X10^3/uL; Monocyte% 11.7 % (0-10); NRBC Flagged by Analyzer 0 % (0-5); Neutrophil # 3.85 X10^3/uL (2.7-7.7); Neutrophil % 57.2 % (47-70); Platelet Count 243 K/mm3 (150-450); RBC Distribution Width CV 14.2 % (11.6-14.6); RBC Distribution Width SD 48.6 fl (35.1-43.9); Red Blood Count 4.86 M/mm3 (4.6-6.2); White Blood Count 6.7 K/mm3 (4.4-11.0)
[2023-05-27 16:19] LABS: Color, Urine Yellow (Yellow); Glucose, Dipstick Normal (Normal); Ketone-Dipstick Negative (Negative); Leukocyte Esterase-Dipstick 25 /ul (Negative); Nitrite-Dipstick Negative (Negative); Occult Blood-Urine 10 /ul (Negative); Protein-Dipstick 15 mg/dl (Negative); Urine Bilirubin Dipstick Negative (Negative); Urine Clarity Clear (Clear); Urine Urobilinogen Normal (Normal)
[2023-05-27 16:35] LABS: ALB/GLOB Ratio 1.1 RATIO (0.9-2.4); AST(SGOT) 13 U/L (15-37); Alanine Aminotransfer ALT/SGPT 26 U/L (16-61); Albumin, Serum 3.8 g/dL (3.2-5.0); Alkaline Phosphatase 122 U/L (45-117); Anion Gap 5 (5-15); BUN 13 mg/dL (7-18); Calcium,Total 9.4 mg/dL (8.5-10.1); Chloride 106 mmol/L (98-107); Creatinine, Serum 0.93 mg/dL (0.70-1.30); EST Glomerular Filtration Rate 87 mL/min (>60); Est Glom Filt Rate - Afr Amer 106 mL/min (>60); Globulin 3.6 g/dL (2.2-4.2); Glucose 93 mg/dL (74-106); Protein, Total 7.4 g/dL (6.4-8.2); Sodium Level 140 mmol/L (136-145)
== END | disposition home or self-care (01) ==
PROVIDERS: PCP Family Medicine Geriatric Medicine; Referring Provider Family Medicine Geriatric Medicine; Visit Provider Family Medicine Geriatric Medicine
DX: R10.9 Unspecified abdominal pain (principal); K56.41 Fecal impaction; R11.2 Nausea with vomiting, unspecified
CPT/HCPCS: 36415; 74019; 80053; 81002; 85025

== ENCOUNTER 2023-06-21 09:37 | Emergency (ER) | payer MEDICARE, SELFPAY ==
[2023-06-21 09:38] VITALS: BP 135/66; PULSE 70; RESP 20; TEMP 35.6; O2SAT 100
[2023-06-21 10:13] LABS: Absolute Lymphocyte Count 3.13 X10^3/uL (0.83-4.51); Absolute Neutrophil Count 4.6 X10^3/uL (2.0-7.7); Basophil# 0.01 X10^3/uL; Basophil% 0.1 % (0-1); Eosinophil# 0.17 X10^3/uL; Eosinophils% 1.9 % (0-5); Hemoglobin 15.1 g/dL (13.0-16.5); Lymphocyte # 3.13 X10^3/ul (0.83-4.51); Lymphocyte % 35.4 % (19-41); Mean Corp Hgb Conc 32.8 g/dL (32-36); Mean Corpuscular Hgb 30.6 pg (27.0-32.0); Mean Corpuscular Volume 93.1 fL (80-94); Mean Platelet Vol. 9.5 fl (6.2-12.0); Monocyte# 0.91 X10^3/uL; Monocyte% 10.3 % (0-10); NRBC Flagged by Analyzer 0 % (0-5); Neutrophil # 4.57 X10^3/uL (2.7-7.7); Neutrophil % 51.8 % (47-70); Platelet Count 271 K/mm3 (150-450); RBC Distribution Width CV 13.5 % (11.6-14.6); RBC Distribution Width SD 46.4 fl (35.1-43.9); Red Blood Count 4.94 M/mm3 (4.6-6.2); White Blood Count 8.8 K/mm3 (4.4-11.0)
[2023-06-21 10:26] LABS: Anion Gap 5 (5-15); BUN 16 mg/dL (7-18); BUN/Creat Ratio 16.3 RATIO (10-20); Calcium,Total 9.2 mg/dL (8.5-10.1); Chloride 110 mmol/L (98-107); Creatinine, Serum 0.98 mg/dL (0.70-1.30); EST Glomerular Filtration Rate 82 mL/min (>60); Est Glom Filt Rate - Afr Amer 99 mL/min (>60); Glucose 143 mg/dL (74-106); Potassium 3.9 mmol/L (3.5-5.1); Sodium Level 140 mmol/L (136-145)
--- NOTE | 2023-06-21 10:26 | EKG12_ITS ---
Test Reason : RIGHT SIDE PAIN Blood Pressure : / mmHG Vent. Rate : 061 BPM Atrial Rate : 061 BPM P-R Int : 134 ms QRS Dur : 086 ms QT Int : 410 ms P-R-T Axes : 000 002 003 degrees QTc Int : 412 ms Atrial-paced rhythm Abnormal ECG Confirmed by ESTEFANY MORTENSEN, CATERINA ([id number]), editor & co founder FREDDY LADD ([id number]) on 06/22/2023 10:55:05 AM Referred By: Confirmed By:CATERINA ALLISON MD
--- NOTE | 2023-06-21 10:28 | EDS_ITS ---
HPI History of Present Illness Chief Complaint: Abd Pain Narrative Narrative: 62-year-old male past medical history of previous cholecystectomy, coronary artery disease, presents with right-sided rib pain that he has had since 630 this morning. States that the pain awoke him from sleep. He has pain in his right ribs, but denies any trauma. No fevers or chills, no nausea or vomiting. He states he has had kidney stones but the pain is usually lower. He has pain worse with movement at times. No other symptoms. [facility] Medical History Acute right flank pain (~03/26/22) Allergies Ambulates with cane Arthritis Back pain Back problem Blackout Bone fracture Cardiology follow-up encounter COPD (chronic obstructive pulmonary disease) CPAP (continuous positive airway pressure) dependence Dermatofibroma of chest Easy bruising Gastric reflux GERD (gastroesophageal reflux disease) History of diverticulitis History of echocardiogram History of edema History of pacemaker History of pain when walking History of stress test Injury of head and neck Kidney stones Leg cramps Lumbar spondylosis Other acute postprocedural pain Presence of cardiac pacemaker Renal stones Restless leg syndrome Restless legs Shortness of breath on exertion Sick sinus syndrome Sinus arrest Sinus bradycardia Smoker Smoker Syncope Syncope and collapse Wears dentures Wears glasses Home Medications omeprazole 20 mg capsule,delayed release 20 mg PO DAILY 11/25/13 [History Last Taken 07/06/19 08:00] albuterol sulfate 90 mcg/actuation aerosol inhaler 2 puff inhalation Q4H PRN shortness of breath or wheezing 06/26/22 [History Last Taken Unknown] gabapentin 400 mg capsule 400 mg PO BID 06/26/22 [History Last Taken Unknown] hydrocodone-acetaminophen 5-325mg 5mg-325mg 1 tab PO Q6H PRN PRN Pain 3 days #12 TABLETS 06/21/23 [Rx Last Taken Unknown] ketorolac 10 mg tablet 10 mg PO Q8H PRN pain 5 days #15 tabs 06/21/23 [Rx Last T aken Unknown] tamsulosin 0.4 mg capsule (Flomax) 0.4 mg PO DAILY #10 caps 06/21/23 [Rx Last Taken Unknown] Allergy/AdvReac Type Severity Reaction Status Date / Time morphine AdvReac MAKES ME Verified 06/21/23 09:38 MAD Family History Mother Colon cancer Sister Breast cancer Sister Breast cancer Other CVA (cerebral vascular accident) Surgical History H/O cervical spine surgery H/O inguinal hernia repair History of esophagogastroduodenoscopy (EGD) History of heart surgery Hx of cholecystectomy Hx of colonoscopy Social History household members: spouse, children and other details: grandchildren housing: house current occupational status: unemployed pets and animals: No Smoking Status: Current every day smoker tobacco type: cigarettes alcohol intake: current alcohol intake frequency: holidays/special occasions only substance use type: does not use caffeine: Yes Type: carbonated beverages Number of servings: 3 and coffee Number of servings: 1 what type of physical activity do you participate in: none seatbelt use: never do you feel safe at home: Yes additional social history: Does Take Ibuprofen As Needed Does Not Take Aspirin ROS ROS ED ROS Narrative Constitutional: No fever, no chills. HEENT: No sore throat. No neck pain. No loss of vision. No rhinorrhea. Cardiovascular: Right-sided rib and chest pain. No palpitations. No pedal edema. Respiratory: No cough, no shortness of breath. Abdominal: No abdominal pain. No nausea. No vomiting. Genitourinary: No dysuria. No hematuria. Positive right flank pain. Musculoskeletal: No myalgias. No arthralgias. Neurologic: No headaches. No dizziness. No lightheadedness. Skin: No rash. No change in color. Psychiatric: No depression. No anxiety. EXAM Physical Exam Narrative Exam Narrative: Afebrile. Vital signs noted. HEENT: Normocephalic. Atraumatic. PERRL, EOMI. Neck soft and supple. No point tenderness or step off. Cardiovascular: Regular rate and rhythm. No murmurs, rubs, or gallops appreciated. Mild tenderness to palpation right-sided ribs, no crepitance. Respiratory: No tachypnea. Lungs clear to auscultation bilaterally. Gastrointestinal: Abdomen soft, nontender, with normoactive bowel sounds. No rebound or guarding. Negative Ruvalcaba sign. No CVA tenderness to percussion. Neurological: Awake. Alert. Nonfocal, nonlateralizing. Skin: No rash. Normal color. No pallor. Musculoskeletal: No pedal edema. Full range of motion extremities. Const Vital Signs: 06/21/23 09:38 Temperature 96.0 F L Temperature Source Temporal Pulse Rate 70 Respiratory Rate 20 H Blood Pressure 135/66 H Blood Pressure Mean 89 Pulse Ox 100 Oxygen Delivery Method Room Air MDM MDM MDM Narrative Medical decision making narrative: In the differential diagnosis is ureterolithiasis, I have low suspicion for cholelithiasis as examined cholecystectomy. He may also have pneumothorax or pneumonia, but these are not necessarily supported by his history and physical. Initially he was given Toradol for analgesia which controlled his pain. I reviewed his laboratory work and he has normal white count at 8.8, hemoglobin normal at 15.1, hematocrit 46.0, platelet count normal at 271. I reviewed his D-dimer as well and it is 0.61, but acceptable given the age cutoff and taking into account that he is 62 years of age, so I do not feel that CTA of the chest is indicated. Review of his electrolyte panel shows chloride elevated at 110 which I think is nonspecific, BUN normal at 16 with creatinine normal at 0.98. High-sensitivity troponin is 3. EKG obtained to help rule out coronary artery disease and ischemia which does show an atrial paced rhythm at [address] changes. No STEMI. Right-sided rib x-rays and 3 views interpreted by myself shows no evidence of pneumothorax, pneumonia, or acute rib fracture. I reviewed the radiology report which confirms my independent interpretation. With the suspicion of ureterolithiasis, I did obtain a CT of the abdomen pelvis without contrast which shows a 4 mm stone in the mid ureter with hydronephrosis. This is on the right side. I do feel that a lot of his pain may be referred pain. He was given a dose of Dilaudid 0.5 mg and ondansetron for additional analgesia. At this point in time, he states that he has an outpatient neurologist with whom to follow-up with at [place] because he had kidney stones in the past. He was also referred to Dr. Pena here in [place]. I reviewed his urinalysis and see no evidence of infection which I feel would require antibiotics. He was written prescriptions for Flomax, Toradol, and for 3 days of [place]. Return instructions to the emergency department were reviewed. I do not feel he requires admission at this time as upon repeat examination he is resting comfortably. Disposition is discharged home in stable condition. History & Record Review Discussion w/independent historian: Patient Additional record(s) reviewed:: Prior ED visit and Prior labs Lab Data Attestation: I reviewed the patient's lab results. Labs: Laboratory Results - last 24 hr 06/21/23 06/21/23 10:00 11:42 WBC 8.8 RBC 4.94 Hgb 15.1 Hct 46.0 MCV 93.1 MCH 30.6 MCHC 32.8 RDW Std Deviation 46.4 H RDW Coeff of Reinier 13.5 Plt Count 271 MPV 9.5 Immature Gran % (Auto) 0.500 Neut % (Auto) 51.8 Lymph % (Auto) 35.4 [place] % (Auto) 10.3 H Eos % (Auto) 1.9 Baso % (Auto) 0.1 Absolute Neuts (auto) 4.6 Absolute Lymphs (auto) 3.13 Nucleated RBC % 0 D-Dimer Quant (PE/DVT) 0.61 H* Sodium 140 Potassium 3.9 Chloride 110 H Carbon Dioxide 25.0 Anion Gap 5 BUN 16 Creatinine 0.98 Est GFR (MDRD) Af Amer 99 Est GFR (MDRD) Non-Af 82 BUN/Creatinine Ratio 16.3 Glucose 143 H Calcium 9.2 Troponin I High Sens 3 Urine Color Yellow Urine Clarity Clear Urine pH 5.0 Ur Specific Rowdy 1.030 Urine Protein 30 H Urine Glucose (UA) Normal Urine Ketones 5 H Urine Occult Blood 50 H Urine Nitrite Negative Urine Bilirubin 1 H Urine Urobilinogen 1 H Ur Leukocyte Esterase 25 H Urine RBC 0-5 SEEN Urine WBC 0-5 SEEN Ur Squamous Epith Cells 0-5 SEEN Urine Bacteria 1+ Urine Mucus 0 SEEN Radiography Diagnostic Testing: Clinical Impression(s) from Imaging Studies Abdomen/Pelvis CT 06/21/23 10:30 IMPRESSION: 1. Mild right hydronephrosis due to 4 mm stone in the mid right ureter. 2. Small bilateral nonobstructing renal stones. 3. Diffuse thickening of the colon likely due to underdistention. Colitis is less likely but possible. 4. Small hiatal hernia. 5. Stable left adrenal adenoma unchanged. Electronically Signed: Nasim Cook MD at 11:34 EST , Ribs w/Chest X-Ray 06/21/23 10:46 IMPRESSION: No evidence of displaced rib fracture. Electronically Signed: Nasim Cook MD at 11:12 EST , Discharge Plan Triage Chief Complaint: Abd Pain ED Provider: Jayesh Crystal Dx/Rx/DC Orders Clinical Impression: Acute flank pain, Hydronephrosis, Ureterolithiasis Instructions: ED Kidney Stone w/ Colic Prescriptions: New ketorolac 10 mg tablet 10 mg PO Q8H PRN (Reason: pain) 5 Days Qty: 15 0RF tamsulosin [Flomax] 0.4 mg capsule 0.4 mg PO DAILY Qty: 10 0RF hydrocodone-acetaminophen 5-325 mg tablet 1 tab PO Q6H PRN PRN (Reason: Pain) 3 Days Qty: 12 0RF No Action gabapentin 400 mg capsule 400 mg PO BID albuterol sulfate 90 mcg/actuation HFA aerosol inhaler 2 puff inhalation Q4H PRN (Reason: shortness of breath or wheezing) Patient Comments: INHALE 2 PUFFS BY MOUTH EVERY 4 HOURS NEEDED omeprazole 20 MG capsule 20 mg PO DAILY Primary Care Provider: Josef Garcia Chi Referrals: Claudio Pena MD [Med Staff - Active Staff] - 3-5 Days if not improving Josef Garcia Chi, MD [Primary Care Provider] - 3-5 Days if not improving Activity Restrictions/Additional Instructions: Follow-up with your urologist or Dr. Pena in the next 3 to 5 days. Return with fever, intractable pain, new or worsening symptoms. Disposition Disposition: Home, Self Care
--- NOTE | 2023-06-21 10:30 | CT_ITS ---
INDICATION: Right flank pain EXAMINATION: CT ABDOMEN AND PELVIS WITHOUT CONTRAST - CT Abdomen And Pelvis W/O Contrast Injection TECHNIQUE: Helically acquired images were obtained of the abdomen and pelvis without oral or IV contrast. A radiation dose optimization technique was used for this scan. IV Contrast dosage and agent: None. Oral contrast: None. RADIATION DOSAGE (If Supplied By Facility): CTDIvol = ( 14.96 ) mGy, DLP = ( 740.12 ) mGycm COMPARISON: Prior study dated: 03/26/2022 FINDINGS: LOWER CHEST: Lung bases are clear. No cardiomegaly or pericardial effusion. Cardiac pacer is wires. LIVER: Homogeneous. No focal mass. GALLBLADDER AND BILIARY TREE: Absent gallbladder likely surgically removed. No intra- or extrahepatic biliary ductal dilation. PANCREAS: No focal cystic or solid mass. SPLEEN: Calcified granulomata. ADRENAL GLANDS: Stable 2 cm left adrenal adenoma. KIDNEYS AND URETERS: Few small bilateral nonobstructing stones. Mild right hydronephrosis. 4 mm stone in the mid right ureter. Previously noted stone in the left UPJ has resolved. 0.9 cm simple cyst in the left kidney unchanged for which no further follow-up exam is needed. No left hydronephrosis. PERITONEUM: No ascites or free air. No other fluid collection. BOWEL: Small hiatal hernia. Normal in caliber small bowel loops. Diffuse thickening of the colon extending from the ascending colon to the rectosigmoid junction likely due to underdistention. Colitis is less likely but possible. No evidence of acute appendicitis. LYMPH NODES: No enlarged mesenteric or retroperitoneal lymph nodes. VESSELS: Atherosclerotic calcifications of the abdominal aorta without evidence of aneurysm. URINARY BLADDER: Unremarkable. REPRODUCTIVE ORGANS: No pelvic masses. ABDOMINAL WALL: No definite hernia. BONES: Multilevel degenerative changes of the spine. CT/Abdomen/Pelvis without Cont IMPRESSION: 1. Mild right hydronephrosis due to 4 mm stone in the mid right ureter. 2. Small bilateral nonobstructing renal stones. 3. Diffuse thickening of the colon likely due to underdistention. Colitis is less likely but possible. 4. Small hiatal hernia. 5. Stable left adrenal adenoma unchanged. Electronically Signed: Nasim Cook MD at 11:34 EST ,
[2023-06-21 10:37] VITALS: BMI 35.7
[2023-06-21] MEDS: Ketorolac 30 MG/ML Syringe IV (10:43)
--- NOTE | 2023-06-21 10:46 | RAD_ITS ---
INDICATION: Pain EXAMINATION/TECHNIQUE: X-RAY - XR Ribs Unilateral W/ PA Chest Min 3 Views COMPARISON: Prior study dated: 12/06/2022. FINDINGS: SOFT TISSUES: No soft tissue swelling or gas. BONES: No displaced fracture. The lower lobes are suboptimally visualized.. No sclerotic or destructive changes observed. VISUALIZED LUNGS: Calcified granuloma in the right upper lobe. No pneumothorax. RAD/Ribs Uni Min 3V w/PA Chest IMPRESSION: No evidence of displaced rib fracture. Electronically Signed: Nasim Cook MD at 11:12 [facility] ,
[2023-06-21 10:52] LABS: Troponin-I HS 3 pg/mL (3.0-78.0)
[2023-06-21 10:59] LABS: D-Dimer Quantitative (DVT/PE) 0.61 FEU/ug/m (0.27-0.49)
[2023-06-21] MEDS: 0.9% Normal Saline (1000mL) 1,000 ML 999 ML IV (11:49)
[2023-06-21] MEDS: HYDROmorphone 0.5 MG/0.5 ML SYRINGE IV (11:49)
[2023-06-21 11:57] LABS: Mucous, Urine 0 SEEN /hpf (<or=2+)
[2023-06-21] MEDS: Ondansetron 4 MG/2 ML Vial IV (11:57)
[2023-06-21 12:00] LABS: Color, Urine Yellow (Yellow); Glucose, Dipstick Normal (Normal); Ketone-Dipstick 5 mg/dl (Negative); Leukocyte Esterase-Dipstick 25 /ul (Negative); Nitrite-Dipstick Negative (Negative); Occult Blood-Urine 50 /ul (Negative); Protein-Dipstick 30 mg/dl (Negative); Urine Bilirubin Dipstick 1 mg/dL (Negative); Urine Clarity Clear (Clear); Urine Urobilinogen 1 mg/dl (Normal)
[2023-06-21 12:11] LABS: Bacteria 1+ /hpf (None Seen); Red Blood Cells-Urine 0-5 SEEN /hpf (0-5); Squamous Epithelial Cells - UA 0-5 SEEN /hpf (0-5); White Blood Cells 0-5 SEEN /hpf (0-5)
== END 2023-06-21 13:06 | disposition home or self-care (01) ==
PROVIDERS: Emergency Provider Emergency Medicine; PCP Family Medicine Geriatric Medicine; Visit Provider Emergency Medicine
DX: R10.9 Unspecified abdominal pain (principal); N13.2 Hydronephrosis with renal and ureteral calculous obstruction; F17.210 Nicotine dependence, cigarettes, uncomplicated; I25.10 Atherosclerotic heart disease of native coronary artery without angina pectoris; Z95.0 Presence of cardiac pacemaker
CPT/HCPCS: 71101; 74176; 80048; 81001; 84484; 85025; 85379; 93005; 96374; 96375; 99283; J7030; A4216; J2405

== ENCOUNTER → 2023-07-02 | Outpatient (CLI) | payer MEDICARE, SELFPAY ==
[2023-07-02 13:14] LABS: Absolute Lymphocyte Count 1.84 X10^3/uL (0.83-4.51); Absolute Neutrophil Count 4.1 X10^3/uL (2.0-7.7); Basophil# 0.02 X10^3/uL; Basophil% 0.3 % (0-1); Eosinophil# 0.13 X10^3/uL; Eosinophils% 1.9 % (0-5); Hematocrit 46.3 % (40-54); Hemoglobin 14.8 g/dL (13.0-16.5); Lymphocyte # 1.84 X10^3/ul (0.83-4.51); Lymphocyte % 27.4 % (19-41); Mean Corpuscular Hgb 29.8 pg (27.0-32.0); Mean Corpuscular Volume 93.3 fL (80-94); Mean Platelet Vol. 9.5 fl (6.2-12.0); Monocyte# 0.62 X10^3/uL; Monocyte% 9.2 % (0-10); NRBC Flagged by Analyzer 0 % (0-5); Neutrophil # 4.07 X10^3/uL (2.7-7.7); Neutrophil % 60.8 % (47-70); Platelet Count 313 K/mm3 (150-450); RBC Distribution Width CV 13.3 % (11.6-14.6); RBC Distribution Width SD 45.2 fl (35.1-43.9); Red Blood Count 4.96 M/mm3 (4.6-6.2); White Blood Count 6.7 K/mm3 (4.4-11.0)
[2023-07-02 13:29] LABS: ALB/GLOB Ratio 0.9 RATIO (0.9-2.4); AST(SGOT) 15 U/L (15-37); Alanine Aminotransfer ALT/SGPT 35 U/L (16-61); Albumin, Serum 3.7 g/dL (3.2-5.0); Alkaline Phosphatase 119 U/L (45-117); Anion Gap 4 (5-15); BUN 15 mg/dL (7-18); BUN/Creat Ratio 14.9 RATIO (10-20); Calcium,Total 9.8 mg/dL (8.5-10.1); Chloride 105 mmol/L (98-107); Creatinine, Serum 1.01 mg/dL (0.70-1.30); EST Glomerular Filtration Rate 79 mL/min (>60); Est Glom Filt Rate - Afr Amer 96 mL/min (>60); Globulin 4.1 g/dL (2.2-4.2); Glucose 96 mg/dL (74-106); Potassium 4.1 mmol/L (3.5-5.1); Protein, Total 7.8 g/dL (6.4-8.2); Sodium Level 138 mmol/L (136-145); Thyroid Stim Hormone (TSH) 0.84 uIU/mL (0.358-3.74)
== END | disposition home or self-care (01) ==
LOC: POLAB3 09:29
PROVIDERS: PCP Family Medicine Geriatric Medicine; Visit Provider Family Medicine Geriatric Medicine
DX: R53.83 Other fatigue (principal)
CPT/HCPCS: 36415; 80053; 84443; 85025

== ENCOUNTER 2023-10-14 11:32 | Outpatient (CLI) | payer MEDICARE, SELFPAY ==
[2023-10-14 12:03] LABS: Absolute Lymphocyte Count 1.72 X10^3/uL (0.83-4.51); Basophil# 0.02 X10^3/uL; Basophil% 0.3 % (0-1); Eosinophil# 0.04 X10^3/uL; Eosinophils% 0.6 % (0-5); Hematocrit 45.8 % (40-54); Hemoglobin 15.1 g/dL (13.0-16.5); Lymphocyte # 1.72 X10^3/ul (0.83-4.51); Lymphocyte % 26.5 % (19-41); Mean Corpuscular Hgb 30.3 pg (27.0-32.0); Mean Corpuscular Volume 91.8 fL (80-94); Monocyte# 0.68 X10^3/uL; Monocyte% 10.5 % (0-10); NRBC Flagged by Analyzer 0 % (0-5); Neutrophil % 61.8 % (47-70); Platelet Count 203 K/mm3 (150-450); RBC Distribution Width CV 13.9 % (11.6-14.6); RBC Distribution Width SD 47.1 fl (35.1-43.9); Red Blood Count 4.99 M/mm3 (4.6-6.2); White Blood Count 6.5 K/mm3 (4.4-11.0)
[2023-10-14 13:41] LABS: Anion Gap 4 (5-15); BUN 13 mg/dL (7-18); BUN/Creat Ratio 11.9 RATIO (10-20); Calcium,Total 9.6 mg/dL (8.5-10.1); Chloride 106 mmol/L (98-107); Creatinine, Serum 1.09 mg/dL (0.70-1.30); EST Glomerular Filtration Rate 73 mL/min (>60); Est Glom Filt Rate - Afr Amer 88 mL/min (>60); Glucose 112 mg/dL (74-106); Potassium 4.4 mmol/L (3.5-5.1); Sodium Level 138 mmol/L (136-145); T4 Free Direct 1.03 ng/dL (0.76-1.46); Thyroid Stim Hormone (TSH) 1.74 uIU/mL (0.358-3.74)
== END 2023-10-14 23:59 | disposition home or self-care (01) ==
LOC: LAB 11:34
PROVIDERS: PCP Family Medicine Geriatric Medicine; Referring Provider Nurse Practitioner Family; Visit Provider Nurse Practitioner Family
DX: I47.29 Other ventricular tachycardia (principal); R53.83 Other fatigue
CPT/HCPCS: 36415; 80048; 83735; 84439; 84443; 85025

== ENCOUNTER → 2023-11-11 | Outpatient (CLI) | payer MEDICARE, SELFPAY ==
--- NOTE | 2023-11-11 06:24 | ECHOD_ITS ---
Reason For Study: Nonsustained Vtach Procedure This was a 2D Doppler, Color Flow transthoracic echocardiogram. The study was technically difficult. Exam performed in department. Left Ventricle Normal LV size. Mild concentric left ventricular hypertrophy. The left ventricular ejection fraction is 65 %. Normal diastololic function. Right Ventricle Normal right ventricle. ICD or pacer leads identified within the right ventricle. Atria The left atrium is mildly enlarged. ICD or pacer leads identified within the right atrium. Mitral Valve Trivial mitral valve insufficiency. Tricuspid Valve Trivial tricuspid valve insufficiency. Normal pulmonary artery pressure. Aortic Valve Aortic sclerosis, no stenosis. Mild diffuse aortic valve thickening. Pulmonic Valve The pulmonic valve is not well visualized. Great Vessels Normal sized aortic root. Pericardium/Pleural No pericardial effusion. MMode/2D Measurements & Calculations LVIDd: 4.8 cm IVSd: 1.3 cm Ao root diam: 3.1 cm LVIDs: 2.8 cm LVPWd: 1.3 cm RVDd: 3.5 cm FS: 41.2 % LAV(MOD-bp): 41.4 ml LVAd ap4: 23.4 cm2 SV(MOD-sp4): 41.8 ml LAV(MOD-bp) Indexed: 21.2 ml/m2 LVLd ap4: 7.2 cm LAV(MOD-sp2): 27.8 ml EDV(MOD-sp4): 62.4 ml LAV(MOD-sp4): 49.7 ml EDV(sp4-el): 63.9 ml LVAs ap4: 11.6 cm2 LVLs ap4: 5.8 cm ESV(MOD-sp4): 20.6 ml ESV(sp4-el): 19.5 ml EF(MOD-sp4): 67.0 % EF(sp4-el): 69.5 % SV(sp4-el): 44.4 ml LA A4 area: 18.7 cm2 LA dimension(2D): 4.2 cm RA A4 area: 12.2 cm2 TAPSE: 2.8 cm Time Measurements MV dec time: 0.22 sec Doppler Measurements & Calculations MV E max jorge: 97.2 cm/sec Lat Peak E' Jorge: 10.9 cm/sec Med Peak E' Jorge: 9.6 cm/sec MV A max jorge: 59.7 cm/sec E/E' lat: 8.9 E/E' med: 10.1 MV E/A: 1.6 Ao V2 max: 146.6 cm/sec LV V1 max: 117.3 cm/sec MV dec slope: 435.0 cm/sec2 Ao max P.6 mmHg LV V1 max P.5 mmHg Ao V2 mean: 92.0 cm/sec LV V1 mean P.3 mmHg Ao mean P.1 mmHg LV V1 mean: 68.8 cm/sec Ao V2 VTI: 22.4 cm LV V1 VTI: 21.5 cm AV (velocity ratio): 0.96 PA V2 max: 116.8 cm/sec TR max jorge: 248.8 cm/sec TR max P.8 mmHg ECHO/Echo Complete Interpretation Summary Mild concentric left ventricular hypertrophy. The left ventricular ejection fraction is 65 %. The left atrium is mildly enlarged. Aortic sclerosis, no stenosis. The study was technically difficult. Ordering Physician: Vinnie Garcia Referring Physician: Josef Garcia Chi Performed By: Yudith Garcia RVT, RDCS and Student
--- NOTE | 2023-11-12 11:37 | STRESSREP ---
Stress Test Report Date: 11/11/2023 Procedure: Pharmacologic stress nuclear imaging study Indications: NSVT Consent: Per the patient Procedure: The patient underwent pharmacologic (Regadenoson 0.4mg ) evaluation with a peak heart rate of 101 beats per minute (64% predicted maximal heart rate) and a peak blood pressure of 126/84 mmHg. The baseline ECG demonstrated sinus rhythm. The peak pharmacologic ECG demonstrated no ischemic changes. There were no cardiac dysrhythmias pretest, during pharmacologic infusion, or recovery. There was no complaint of chest discomfort during pharmacologic infusion or recovery. The patient was injected with 14.1 millicuries of technetium 99m Cardiolite and subsequently rest SPECT Cardiolite nuclear imaging was obtained in the horizontal long, vertical long, and short axis views. The patient underwent pharmacologic (Regadenoson) evaluation. The patient was injected with 44.5 millicuries of technetium 99m Cardiolite and subsequently stress SPECT Cardiolite nuclear imaging was obtained in the horizontal long, vertical long, and short axis views. A gated Cardiolite study at peak stress was obtained. The examination was stopped secondary to completion of protocol. Rest and stress SPECT Cardiolite nuclear imaging status post realignment, normalization, and attenuation correction demonstrate no fixed or reversible perfusion defects. There is end systolic thickening and brightening. The gated Cardiolite study demonstrates myocardial thickening and inward wall motion. The reported LVEF is 69%. Impression: 1. Pharmacologic (Regadenoson) evaluation 2. Peak pharmacologic ECG with no ischemic changes. 3. There were no cardiac dysrhythmias pretest, during pharmacologic infusion, or recovery. 5. Rest and stress SPECT Cardiolite nuclear imaging demonstrate relative uniform tracer uptake and myocardial perfusion appearing within normal limits. 6. The gated Cardiolite study reports an LVEF of 69%. This note was generated with [employer] software. It may contain incorrect words, spelling, and punctuation that were not noted in checking the note before signing.
== END | disposition home or self-care (01) ==
LOC: CVS 06:22
PROVIDERS: PCP Family Medicine Geriatric Medicine; Referring Provider Nurse Practitioner Family; Visit Provider Nurse Practitioner Family
DX: I47.29 Other ventricular tachycardia (principal); R94.31 Abnormal electrocardiogram [ECG] [EKG]
CPT/HCPCS: 78452; 93017; 93306; A9500; A4216; J2785

== ENCOUNTER → 2023-11-19 | Outpatient (CLI) | payer MEDICARE, SELFPAY ==
--- NOTE | 2023-11-19 12:30 | RAD_ITS ---
STUDY: X-RAY CHEST REASON FOR EXAM: Male, 63 years old. Chest pain. TECHNIQUE: Frontal and lateral views of the chest. COMPARISON: None. FINDINGS: Cardiomegaly, dual lead cardiac pacer, aortic tortuosity with calcification, prominent central pulmonary arteries, mild hyperinflation with scattered healed parenchymal granulomatous calcifications, calcified hilar nodes and diffuse thoracic osteopenia with spondylosis and increased kyphosis. No active or acute cardiopulmonary disease. Posterior fusion in the lower cervical spine. No abnormality of the visualized soft tissue structures of the upper abdomen. RAD/Chest PA and Lateral IMPRESSION: Cardiomegaly with no acute or active cardiopulmonary disease. Electronically Signed: Tristin Marr MD at 14:29 EDT ,
--- NOTE | 2023-11-19 12:30 | RAD_ITS ---
STUDY: X-RAY - UNILATERAL RIBS ( LEFT ) REASON FOR EXAM: Male, 63 years old. Pleurodynia. TECHNIQUE: 4 view(s) of the ribs. COMPARISON: Chest x-ray performed today. FINDINGS: Generalized osteopenia of the osseous structures. No displaced rib fracture identified. Cardiomegaly with dual lead cardiac pacer, hyperinflation and aortic tortuosity unchanged from prior comparison study today. RAD/Ribs Unil 2V No CXR IMPRESSION: Osteopenia with no displaced rib fracture identified. Electronically Signed: Tristin Marr MD at 16:03 EDT ,
== END | disposition home or self-care (01) ==
LOC: RAD 12:19
PROVIDERS: PCP Family Medicine Geriatric Medicine; Referring Provider Family Medicine Geriatric Medicine; Visit Provider Family Medicine Geriatric Medicine
DX: R07.9 Chest pain, unspecified (principal); R07.81 Pleurodynia
CPT/HCPCS: 71046; 71100

== ENCOUNTER → 2024-01-06 | Outpatient (CLI) | payer MEDICARE, SELFPAY ==
[2024-01-06 10:55] LABS: Absolute Lymphocyte Count 1.71 X10^3/uL (0.83-4.51); Absolute Neutrophil Count 4.1 X10^3/uL (2.0-7.7); Basophil# 0.03 X10^3/uL; Basophil% 0.5 % (0-1); Eosinophil# 0.08 X10^3/uL; Eosinophils% 1.2 % (0-5); Hematocrit 43.1 % (40-54); Hemoglobin 14.3 g/dL (13.0-16.5); Lymphocyte # 1.71 X10^3/ul (0.83-4.51); Lymphocyte % 26.2 % (19-41); Mean Corp Hgb Conc 33.2 g/dL (32-36); Mean Corpuscular Hgb 30.9 pg (27.0-32.0); Mean Corpuscular Volume 93.1 fL (80-94); Mean Platelet Vol. 9.2 fl (6.2-12.0); Monocyte# 0.64 X10^3/uL; Monocyte% 9.8 % (0-10); NRBC Flagged by Analyzer 0 % (0-5); Neutrophil # 4.05 X10^3/uL (2.7-7.7); Platelet Count 221 K/mm3 (150-450); RBC Distribution Width CV 13.2 % (11.6-14.6); RBC Distribution Width SD 45.1 fl (35.1-43.9); Red Blood Count 4.63 M/mm3 (4.6-6.2); White Blood Count 6.5 K/mm3 (4.4-11.0)
[2024-01-06 11:51] LABS: ALB/GLOB Ratio 1.1 RATIO (0.9-2.4); AST(SGOT) 17 U/L (15-37); Alanine Aminotransfer ALT/SGPT 28 U/L (16-61); Albumin, Serum 3.7 g/dL (3.2-5.0); Alkaline Phosphatase 121 U/L (45-117); Anion Gap 5 (5-15); BUN 15 mg/dL (7-18); BUN/Creat Ratio 15.2 RATIO (10-20); Calcium,Total 9.5 mg/dL (8.5-10.1); Chloride 105 mmol/L (98-107); Creatinine, Serum 0.98 mg/dL (0.70-1.30); EST Glomerular Filtration Rate 82 mL/min (>60); Est Glom Filt Rate - Afr Amer 99 mL/min (>60); Globulin 3.4 g/dL (2.2-4.2); Glucose 105 mg/dL (74-106); PSA,Total - Annual Screen 0.62 ng/mL (0.00-4.00); Protein, Total 7.1 g/dL (6.4-8.2); Sodium Level 137 mmol/L (136-145); Thyroid Stim Hormone (TSH) 1.96 uIU/mL (0.358-3.74)
== END | disposition home or self-care (01) ==
PROVIDERS: PCP Family Medicine Geriatric Medicine; Referring Provider Family Medicine Geriatric Medicine; Visit Provider Family Medicine Geriatric Medicine
DX: Z12.5 Encounter for screening for malignant neoplasm of prostate (principal); R53.83 Other fatigue
CPT/HCPCS: 36415; 80053; 84153; 84443; 85025; G0103

== ENCOUNTER 2024-01-29 11:11 | Emergency (ER) | payer MEDICARE, SELFPAY ==
[2024-01-29 11:11] VITALS: BP 137/73; PULSE 89; RESP 16; TEMP 35.9; O2SAT 94; BMI 38.6
--- NOTE | 2024-01-29 11:23 | EX.ED.DYSGE1 ---
HPI History of Present Illness Chief Complaint: Allergic Reaction Detail of Chief Complaint: Concern for allergic reaction Informant: patient Narrative Narrative: Patient presents to the emergency department with concern for allergic reaction. Patient states that he was working on his lawnmower 4 days ago. Patient subsequently developed what he thought was hives over his entire body and the following day was seen by his primary care physician Dr. Garcia. Patient apparently was given steroid shots as well as antihistamines and sent home with prescription for prednisone which she took 1 day of prednisone. He has not taken the prednisone today. Patient states that after his visit with his primary care physician his hives resolved for about 24 hours and then came back yesterday. Patient complains of some throat tightness and he just feels swollen everywhere. Patient denies any difficulty breathing. He does have history of COPD. He denies any new medications. He denies recent illness. Denies new soaps or detergents or other allergens [facility] Medical History Acute right flank pain (~03/26/22) Allergies Ambulates with cane Arthritis Back pain Back problem Blackout Bone fracture Cardiology follow-up encounter COPD (chronic obstructive pulmonary disease) CPAP (continuous positive airway pressure) dependence Dermatofibroma of chest Easy bruising Gastric reflux GERD (gastroesophageal reflux disease) History of diverticulitis History of echocardiogram History of edema History of pacemaker History of pain when walking History of stress test Injury of head and neck Kidney stones Leg cramps Lumbar spondylosis Other acute postprocedural pain Presence of cardiac pacemaker Renal stones Restless leg syndrome Restless legs Shortness of breath on exertion Sick sinus syndrome Sinus arrest Sinus bradycardia Smoker Smoker Syncope Syncope and collapse Wears dentures Wears glasses Home Medications ?Medication ?Instructions ?Recorded ?Last Taken ?Type omeprazole 20 mg capsule,delayed 20 mg PO DAILY 11/25/13 07/06/19 08:00 History release albuterol sulfate 90 mcg/actuation 2 puff inhalation Q4H PRN 06/26/22 Unknown History aerosol inhaler shortness of breath or wheezing gabapentin 400 mg capsule 400 mg PO BID 06/26/22 Unknown History tamsulosin 0.4 mg capsule (Flomax) 0.4 mg PO DAILY #10 caps 06/21/23 Unknown Rx famotidine 40 mg tablet 40 mg PO BID 01/29/24 Unknown History hydroxyzine HCl 50 mg tablet 50 mg PO Q6H PRN PRN itch 01/29/24 Unknown History levocetirizine 5 mg tablet 5 mg PO DAILY 01/29/24 Unknown History prednisone 10 mg tablet mg PO 01/29/24 Unknown History umeclidinium 62.5 mcg-vilanterol 1 ea inhalation DAILY 01/29/24 Unknown History 25 mcg/actuation powdr for inhalation (Anoro Ellipta) Allergy/AdvReac Type Severity Reaction Status Date / Time morphine AdvReac MAKES ME Verified 01/29/24 11:14 MAD Family History Mother Colon cancer Sister Breast cancer Sister Breast cancer Other CVA (cerebral vascular accident) Surgical History H/O cervical spine surgery H/O inguinal hernia repair History of esophagogastroduodenoscopy (EGD) History of heart surgery Hx of cholecystectomy Hx of colonoscopy Social History household members: spouse, children and other details: grandchildren housing: house current occupational status: unemployed pets and animals: No Smoking Status: Current every day smoker tobacco type: cigarettes alcohol intake: current alcohol intake frequency: holidays/special occasions only substance use type: does not use caffeine: Yes Type: carbonated beverages Number of servings: 3 and coffee Number of servings: 1 what type of physical activity do you participate in: none seatbelt use: never do you feel safe at home: Yes additional social history: Does Take Ibuprofen As Needed Does Not Take Aspirin ROS ROS ED Review of Systems ROS Unobtainable: other Constitutional Constitutional ED: Reports lethargy; Denies chills, fever(s), sweats or weight loss Eyes Eyes: Denies blurry vision, change in vision or diplopia ENT ENT ED: Denies rhinorrhea or sore throat Cardiovascular Cardiovascular: Denies chest pain, orthopnea or racing heartbeat Respiratory/Chest Respiratory/Chest: Denies cough, dyspnea, dyspnea on exertion, orthopnea or sputum Gastrointestinal Gastrointestinal: Denies abdominal pain, diarrhea, nausea or vomiting Genitourinary Genitourinary ED: Denies dysuria, hematuria or urinary frequency Musculoskeletal Musculoskeletal: Denies arthralgias, back pain, myalgias or neck pain Integumentary Reports rash; Denies abscess or Abrasions Neurologic Neurologic: Denies headache(s) or weakness Psychiatric Psychiatric: Denies anxiety, depression or suicidal thoughts Endocrine Endocrinology: Denies polydipsia, polyphagia or polyuria Hematologic/Lymphatic Hematologic/Lymphatic: Denies easy bleeding, easy bruising or lymphadenopathy Allergic/Immunologic Allergic/Immunologic ED: Denies mouth swelling, tongue swelling or urticaria EXAM Physical Exam Const Vital Signs: 01/29/24 11:11 Temperature 96.7 F L Temperature Source Temporal Pulse Rate 89 Respiratory Rate 16 Blood Pressure 137/73 H Blood Pressure Mean 94 Pulse Ox 94 Oxygen Delivery Method Room Air Positive well nourished and well developed General Appearance ED: well developed and NAD HEENT Reports TM's clear and moist mucous membranes HEENT Narrative: No angioedema of the oropharynx or lips or tongue. normocephalic and atraumatic; Negative for trauma or tenderness Tympanic Membrane ED: Yes TM's clear Eyes PERRL and EOMs intact bilaterally General Eye ED: Negative for pale conjunctiva or scleral icterus Neck no lymphadenopathy, supple and no JVD General: Negative for tenderness Chest Wall inspection of chest normal and palpation of chest normal Chest: Negative for tenderness Resp normal respiratory effort and clear to auscultation bilaterally Effort and Inspection: Negative for respiratory distress or pain with movement Auscultation: Negative for rhonchi, wheezes or diminished lung sounds Cardio regular rate, regular rhythm, S1 normal heart sound, S2 normal heart sound and no murmurs Peripheral Pulses: pulses 2+ throughout GI normal to inspection, nondistended, normoactive bowel sounds, soft to palpation, non-tender, non-distended and no masses Back/Spine no CVA tenderness and no thoracic nor lumbar tenderness Extremity normal to inspection General Extremety ED: Negative for edema General Extremity: Negative for edema Neuro oriented x3, CN's II-XII intact bilaterally, no sensory deficits noted and gait normal Sensorium / Orientation: awake, alert, oriented to person, oriented to place and oriented to time Motor Exam: strength 5/5 throughout and strength abnormal Psych mental status grossly normal Skin no wounds Skin Narrative: Patient has urticaria involving the head and trunk as well as the extremities. Typical erythematous lesion slightly raised and blanchable. MDM MDM MDM Narrative Medical decision making narrative: Patient presents with concern for allergic reaction. Symptoms for at least 3 days. Patient became concerned today because he was having a sensation like his throat was swelling so he comes in for evaluation. Clinically looks well with stable vital signs and no evidence of angioedema. There is no stridor and no wheezing on exam. IV line established. CBC with differential obtained showed a white count of 10.4 with hemoglobin 14.7 and platelet count of 199. Chemistries were essentially normal. While in the department I did give him Solu-Medrol 125 mg IV and Benadryl 25 mg IV. Patient had an observation period. After treatment he states his itching is resolved and that sensation of throat swelling is resolved. Again clinically he seems to be doing well and see no evidence of angioedema. Recommended that he continue with his prednisone starting tomorrow and he can take Benadryl for the itching. Etiology of the urticaria unclear. Patient advised to return if increased difficulty breathing, lip or throat swelling or condition should worsen anyway Lab Data Attestation: I reviewed the patient's lab results. Labs: Laboratory Results - last 24 hr 01/29/24 11:40 WBC 10.4 RBC 4.83 Hgb 14.7 Hct 43.6 MCV 90.3 MCH 30.4 MCHC 33.7 RDW Std Deviation 43.8 RDW Coeff of Reinier 13.3 Plt Count 199 MPV 9.2 Immature Gran % (Auto) 0.600 Neut % (Auto) 69.2 Lymph % (Auto) 21.0 Banks % (Auto) 8.5 Eos % (Auto) 0.5 Baso % (Auto) 0.2 Absolute Neuts (auto) 7.2 Absolute Lymphs (auto) 2.19 Nucleated RBC % 0 Sodium 139 Potassium 3.5 Chloride 107 Carbon Dioxide 26.0 Anion Gap 6 BUN 12 Creatinine 0.93 Estim Creat Clear Calc 81.78 Est GFR (MDRD) Af Amer 105 Est GFR (MDRD) Non-Af 87 BUN/Creatinine Ratio 12.9 Glucose 131 H Calcium 9.0 Discharge Plan Triage Chief Complaint: Allergic Reaction ED Provider: Callie De La Cruz Dx/Rx/DC Orders Clinical Impression: Allergic reaction, Urticaria Instructions: ED General Allergic Reactions, ED Hives (Adult) Prescriptions: No Action gabapentin 400 mg capsule 400 mg PO BID albuterol sulfate 90 mcg/actuation HFA aerosol inhaler 2 puff inhalation Q4H PRN (Reason: shortness of breath or wheezing) Patient Comments: INHALE 2 PUFFS BY MOUTH EVERY 4 HOURS NEEDED omeprazole 20 MG capsule 20 mg PO DAILY tamsulosin [Flomax] 0.4 mg capsule 0.4 mg PO DAILY Qty: 10 0RF prednisone 10 mg tablet PO famotidine 40 mg tablet 40 mg PO BID hydroxyzine HCl 50 mg tablet 50 mg PO Q6H PRN PRN (Reason: itch) levocetirizine 5 mg tablet 5 mg PO DAILY Anoro Ellipta 62.5-25 mcg/actuation blister with device 1 ea INHALATION DAILY Primary Care Provider: Josef Garcia Chi Referrals: Josef Garcia Chi, MD [Primary Care Provider] - 3-5 Days Activity Restrictions/Additional Instructions: Continue with your prednisone starting tomorrow. You may use Benadryl for the itching or one of the antihistamines that your primary care physician ordered for you. Print Language: Irish Disposition Disposition: Home, Self Care
[2024-01-29] MEDS: DiphenhydrAMINE 50 MG/ML Syringe 25 MG IV (11:36)
[2024-01-29] MEDS: MethylPREDNISolone 125 MG/2 ML Vial IV (11:36)
[2024-01-29 11:51] LABS: Absolute Lymphocyte Count 2.19 X10^3/uL (0.83-4.51); Absolute Neutrophil Count 7.2 X10^3/uL (2.0-7.7); Basophil# 0.02 X10^3/uL; Basophil% 0.2 % (0-1); Eosinophil# 0.05 X10^3/uL; Eosinophils% 0.5 % (0-5); Hematocrit 43.6 % (40-54); Hemoglobin 14.7 g/dL (13.0-16.5); Lymphocyte # 2.19 X10^3/ul (0.83-4.51); Mean Corp Hgb Conc 33.7 g/dL (32-36); Mean Corpuscular Hgb 30.4 pg (27.0-32.0); Mean Corpuscular Volume 90.3 fL (80-94); Mean Platelet Vol. 9.2 fl (6.2-12.0); Monocyte# 0.89 X10^3/uL; Monocyte% 8.5 % (0-10); NRBC Flagged by Analyzer 0 % (0-5); Neutrophil % 69.2 % (47-70); Platelet Count 199 K/mm3 (150-450); RBC Distribution Width CV 13.3 % (11.6-14.6); RBC Distribution Width SD 43.8 fl (35.1-43.9); Red Blood Count 4.83 M/mm3 (4.6-6.2); White Blood Count 10.4 K/mm3 (4.4-11.0)
[2024-01-29 12:08] LABS: Anion Gap 6 (5-15); BUN 12 mg/dL (7-18); BUN/Creat Ratio 12.9 RATIO (10-20); Chloride 107 mmol/L (98-107); Creatinine, Serum 0.93 mg/dL (0.70-1.30); EST Glomerular Filtration Rate 87 mL/min (>60); Est Glom Filt Rate - Afr Amer 105 mL/min (>60); Estimated Creatinine Clearance 81.78 ml/min; Glucose 131 mg/dL (74-106); Potassium 3.5 mmol/L (3.5-5.1); Sodium Level 139 mmol/L (136-145)
[2024-01-29 12:48] VITALS: BP 116/60; PULSE 72; RESP 15; TEMP 36.4; O2SAT 99
== END 2024-01-29 12:49 | disposition home or self-care (01) ==
PROVIDERS: Emergency Provider Emergency Medicine; PCP Family Medicine Geriatric Medicine; Visit Provider Emergency Medicine
DX: T78.40XA Allergy, unspecified, initial encounter (principal); J44.9 Chronic obstructive pulmonary disease, unspecified; L50.9 Urticaria, unspecified; F17.210 Nicotine dependence, cigarettes, uncomplicated; X58.XXXA Exposure to other specified factors, initial encounter
CPT/HCPCS: 80048; 85025; 96374; 96375; 99284; A4216

== ENCOUNTER → 2024-06-02 | Outpatient (CLI) | payer MEDICARE, SELFPAY ==
--- NOTE | 2024-06-02 07:02 | CT_ITS ---
INDICATION: Radiculopathy, lumbar region EXAMINATION: CT LUMBAR SPINE - CT Spine Lumbar W/O Contrast Injection TECHNIQUE: Helically acquired images were obtained of the lumbar spine. 2D reformats were reviewed. A radiation dose optimization technique was used for this scan. The protocol utilizes one or more of the following dose reduction techniques: automated exposure control, adjustment of mA and/or kV according to patient size,and/or use of iterative reconstruction technique. IV Contrast dosage and agent: None. RADIATION DOSAGE (If Supplied By Facility): CTDIvol = ( 27.28 ) mGy, DLP = ( 710.7 ) mGycm COMPARISON: CT Lumbar SpineOct 23 2020 3:04pm FINDINGS: VERTEBRAE: No fracture or traumatic subluxation. No discrete lytic or blastic abnormality observed. Mild left convex curvature of the lower lumbar spine. Preservation of lumbar lordosis. Mild multilevel facet arthropathy. DISCS and SPINAL CANAL: Severe multilevel disc space narrowing and osteophytosis, most notable at T12-L1, L2-L3, L3-L4, L4-L5 and L5-S1. Multilevel moderate spinal canal and moderate to severe neural foramina narrowing more prominent at L3-4, L4-5. There has been no significant since the previous study from 10/23/2020. VISUALIZED ABDOMEN: Visualized abdominal aorta is not dilated. Atherosclerotic calcifications of the abdominal aorta. 3 mm nonobstructing stone in the left kidney. CT/Spine Lumbar without Contrast IMPRESSION: Multilevel moderate spinal canal and moderate to severe neural foramina narrowing more prominent at L3-4, L4-5. Electronically Signed: Ag Banegas MD at 1:46 EST ,
== END | disposition home or self-care (01) ==
LOC: CT 07:00
PROVIDERS: PCP Family Medicine Geriatric Medicine; Referring Provider Anesthesiology Pain Medicine; Visit Provider Anesthesiology Pain Medicine
DX: M54.16 Radiculopathy, lumbar region (principal)
CPT/HCPCS: 72131

== ENCOUNTER 2024-06-14 08:06 | Outpatient (RCR) | payer MEDICARE, SELFPAY ==
--- NOTE | 2024-06-14 09:31 | HP.PTEVAL ---
Patient's Visit Information Visit Information Visit Information: BILL LICEA is a 63 year old M referred to Physical Therapy by Dr. Josef Garcia MD with a diagnosis of Dizziness. Date of Evaluation: 06/14/24 Physical Therapist: BRISEIDA Herbert Visit Plan Plan: Pt will see the ENT and follow through with his CATSCAN and will call if his positional dizziness returns. Subjective Subjective: Pt had vertigo a year or so ago and it lasted about a week and it was gone. This episode started about 4 weeks ago. He had his pacemaker and leads changed and he was dizzy and getting up or down in bed 3-4 days after getting them changed. He would lay in bed and move his head and he would get dizzy. But he felt off constantly for about a week. He called his family Dr and he gave him 2 shots, pills and referred here and an ear Dr. He ordered a CATSCAN of his brain but that has not been completed either. Currently sx... feels a little dizzy sitting here. He had trouble laying down and getting back up and that is the room spinning dizziness. Pt did not have the dizziness getting into bed and out of bed this morning but his normal dizziness remains. Objective Objective: -L Hallpike except for some slight dizziness. -R Hallpike for dizziness -Roll test B Questionable + Hallpike on the L for feeling like it could start room spinning and went ahead and treated with L Eply. Re-tested L Hallpike and pt felt the same with no nystagmus and no room spinning dizziness. Pt had some normal dizziness when he was walking out but that is normal for him Balance/Special Test Scores Dizziness Score: 70 Anticipated Interventions Patient/Client Instruction: Educate patient on: Plan of Care For the Purpose of:: To improve gait and locomotor functions, To increase flexibility/ROM, To improve endurance, To improve balance and To improve safety with gait Therapeutic Exercise to Include: Strength training, Balance training and Gait and locomotor training For the Purpose of:: To increase tolerance to activity/condition/position, To improve performance and independence with ADL's, To improve gait and locomotor functions, To improve balance and To improve safety with gait Functional Training to Include: Gait training For the Purpose of:: To improve safety with gait and To improve health and function Manual Therapy Techniques to Include: Other Comment: Eply For the Purpose of:: To increase tolerance to activity/condition/position and To improve gait and locomotor functions Text: Thank you for the opportunity to evaluate your patient. For Medicare and Medicare HMO plans, please review the plan of care and approve it. It will need to be FAXED BACK to us at [phone] for Medicare purposes. For Medicare only, by signing this I certify the plan of care. Please let me know if there are questions or concerns regarding this plan of care. Physician Signature: Date:
--- NOTE | 2024-07-19 08:19 | HP.PT.NRP ---
Patient Information Patient Information: BILL LICEA was seen in my office for initial evaluation on 06/14/24. The following Plan of Care was established for this patient: Anticipated Interventions Patient/Client Instruction: Educate patient on: Plan of Care For the Purpose of:: To improve gait and locomotor functions, To increase flexibility/ROM, To improve endurance, To improve balance and To improve safety with gait Therapeutic Exercise to Include: Strength training, Balance training and Gait and locomotor training For the Purpose of:: To increase tolerance to activity/condition/position, To improve performance and independence with ADL's, To improve gait and locomotor functions, To improve balance and To improve safety with gait Functional Training to Include: Gait training For the Purpose of:: To improve safety with gait and To improve health and function Manual Therapy Techniques to Include: Other Comment: Eply For the Purpose of:: To increase tolerance to activity/condition/position and To improve gait and locomotor functions Last Seen Last Seen: This patient was last seen in our office 06/14/24. Pertinent comments regarding their Physical therapy will appear below: BETTY PT as pt did not schedule more since initial evaluation At this point I will be discontinuing this patient from physical therapy. I would be happy to see this patient again in the future if found appropriate by the physician. Thank you! Ada Coburn, BRISEIDA Balance/Gait/Functional tests Balance/Special Test Scores Dizziness Score: 70
== END 2024-06-14 19:00 | disposition home or self-care (01) ==
LOC: PT 08:06
PROVIDERS: PCP Family Medicine Geriatric Medicine; Referring Provider Family Medicine Geriatric Medicine; Visit Provider Family Medicine Geriatric Medicine
DX: R42 Dizziness and giddiness (principal)
CPT/HCPCS: 97161

== ENCOUNTER → 2024-06-24 | Outpatient (CLI) | payer MEDICARE, SELFPAY ==
--- NOTE | 2024-06-24 08:38 | CDU_ITS ---
Reason For Study: Vertigo Rt. Velocities/BP Lt. Velocities/BP Prox CCA 114.3/32.1 cm/sec. Prox CCA 118.0/34.0 cm/sec. Mid CCA 86.4/27.0 cm/sec. Mid CCA 107.0/30.3 cm/sec. Dist CCA 89.7/30.3 cm/sec. Dist CCA 99.7/26.7 cm/sec. Prox ICA 61.0/24.2 cm/sec. Prox ICA 99.7/32.8 cm/sec. Mid ICA 78.7/25.9 cm/sec. Mid ICA 90.1/24.8 cm/sec. Dist ICA 69.9/30.3 cm/sec. Dist ICA 62.9/24.2 cm/sec. Rt. ICA/CCA = 0.9. Lt. ICA/CCA = 0.9. Prox ECA 119.8/19.4 cm/sec. Prox ECA 130.8/23.0 cm/sec. Rt. Vert. 46.8/16.2 cm/sec. Lt. Vert. 36.7 cm/sec. Right Extracranial There is intimal thickening but no significant atherosclerotic plaque noted in the right common carotid artery. There is heterogeneous, irregular atherosclerotic plaque noted in the right internal carotid artery. There is heterogeneous, irregular atherosclerotic plaque noted in the right external carotid artery. Antegrade flow is noted in the right vertebral artery. Left Extracranial There is homogeneous, smooth atherosclerotic plaque noted in the left common carotid artery. There is heterogeneous, irregular atherosclerotic plaque noted in the left internal carotid artery. There is heterogeneous, irregular atherosclerotic plaque noted in the left external carotid artery. Antegrade flow is noted in the left vertebral artery. Procedure Carotid Duplex [id number]. This is a Carotid Duplex examination using B-mode, color flow and specral Doppler. The exam was diagnostic. Exam performed in department. VL/Carotid Duplex Ultrasound Interpretation Summary Mild (<50%) stenosis right extracranial internal carotid. Mild (<50%) stenosis left extracranial internal carotid. Patent and antegrade vertebrals bilaterally. Ordering Physician: Lorraine Rubio Referring Physician: Josef Garcia Chi Performed By: Jarrell Richard RVT
== END | disposition home or self-care (01) ==
LOC: CVS 08:38
PROVIDERS: PCP Family Medicine Geriatric Medicine; Referring Provider Internal Medicine Cardiovascular Disease; Visit Provider Internal Medicine Cardiovascular Disease
DX: R42 Dizziness and giddiness (principal)
CPT/HCPCS: 93880

== ENCOUNTER → 2024-06-30 | Outpatient (CLI) | payer MEDICARE, SELFPAY ==
[2024-06-30 10:02] LABS: Absolute Lymphocyte Count 2.11 X10^3/uL (0.83-4.51); Absolute Neutrophil Count 4.9 X10^3/uL (2.0-7.7); Basophil# 0.01 X10^3/uL; Basophil% 0.1 % (0-1); Eosinophil# 0.09 X10^3/uL; Eosinophils% 1.1 % (0-5); Hematocrit 45.1 % (40-54); Lymphocyte # 2.11 X10^3/ul (0.83-4.51); Lymphocyte % 26.6 % (19-41); Mean Corp Hgb Conc 33.3 g/dL (32-36); Mean Corpuscular Hgb 30.8 pg (27.0-32.0); Mean Corpuscular Volume 92.6 fL (80-94); Mean Platelet Vol. 9.3 fl (6.2-12.0); Monocyte# 0.83 X10^3/uL; Monocyte% 10.5 % (0-10); NRBC Flagged by Analyzer 0 % (0-5); Neutrophil # 4.86 X10^3/uL (2.7-7.7); Neutrophil % 61.3 % (47-70); Platelet Count 217 K/mm3 (150-450); RBC Distribution Width CV 13.2 % (11.6-14.6); RBC Distribution Width SD 44.4 fl (35.1-43.9); Red Blood Count 4.87 M/mm3 (4.6-6.2); White Blood Count 7.9 K/mm3 (4.4-11.0)
[2024-06-30 10:46] LABS: ALB/GLOB Ratio 1.1 RATIO (0.9-2.4); AST(SGOT) 14 U/L (15-37); Alanine Aminotransfer ALT/SGPT 27 U/L (16-61); Albumin, Serum 3.9 g/dL (3.2-5.0); Alkaline Phosphatase 140 U/L (45-117); Anion Gap 4 (5-15); BUN 12 mg/dL (7-18); BUN/Creat Ratio 11.5 RATIO (10-20); Calcium,Total 9.6 mg/dL (8.5-10.1); Chloride 107 mmol/L (98-107); Creatinine, Serum 1.04 mg/dL (0.70-1.30); EST Glomerular Filtration Rate 76 mL/min (>60); Est Glom Filt Rate - Afr Amer 93 mL/min (>60); Globulin 3.5 g/dL (2.2-4.2); Glucose 102 mg/dL (74-106); Potassium 4.1 mmol/L (3.5-5.1); Protein, Total 7.4 g/dL (6.4-8.2); Sodium Level 139 mmol/L (136-145)
== END | disposition home or self-care (01) ==
LOC: POLAB3 09:37
PROVIDERS: PCP Family Medicine Geriatric Medicine; Visit Provider Family Medicine Geriatric Medicine
DX: R53.83 Other fatigue (principal)
CPT/HCPCS: 36415; 80053; 84443; 85025

== ENCOUNTER → 2024-08-03 | Outpatient (CLI) | payer MEDICARE, SELFPAY ==
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
== END | disposition home or self-care (01) ==
LOC: RAD 12:02
PROVIDERS: PCP Family Medicine Geriatric Medicine; Referring Provider Family Medicine Geriatric Medicine; Visit Provider Family Medicine Geriatric Medicine
DX: R13.10 Dysphagia, unspecified (principal)

== ENCOUNTER → 2024-08-09 | Outpatient (CLI) | payer MEDICARE, SELFPAY ==
--- NOTE | 2024-08-09 09:39 | RAD_ITS ---
STUDY: X-RAY - ESOPHAGUS (BARIUM SWALLOW) WITH FLUOROSCOPY REASON FOR EXAM: Male, 64 years old. DYSPHAGIA TECHNIQUE: 49 fluoroscopic view(s) of the esophagus were obtained following swallowing of barium. FLUOROSCOPY TIME (if supplied): (59 seconds) minutes/seconds COMPARISON: None. FINDINGS: There is no demonstrated esophageal foreign body. Focal eccentric narrowing of the distal esophagus at the level gastroesophageal junction. The patient ingested a 12 mm tablet of barium. The tablet this trapped at that site. Endoscopic correlation recommended. Small hiatal hernia. No evidence of gastroesophageal reflux. There is atherosclerotic calcification of the aortic arch with tortuosity of the descending aorta. Normal visualized pulmonary parenchyma. There are degenerative changes of the visualized thoracic spine. RAD/Esophagus Dual Contrast IMPRESSION: Focal eccentric narrowing of the distal esophagus with trapping of the 12 mm tablet of barium. Endoscopic correlation recommended. Small hiatal hernia. No evidence of gastric esophageal reflux. Electronically Signed: Dorian Chauhan MD at 9:58 EST ,
== END | disposition home or self-care (01) ==
LOC: RAD 09:37
PROVIDERS: PCP Family Medicine Geriatric Medicine; Referring Provider Family Medicine Geriatric Medicine; Visit Provider Family Medicine Geriatric Medicine
DX: R13.10 Dysphagia, unspecified (principal)
CPT/HCPCS: 74221

== ENCOUNTER → 2024-10-11 | Outpatient (CLI) | payer MEDICARE, SELFPAY | END | disposition home or self-care (01) | LOC: POLAB3 10:56 | PROVIDERS: PCP Family Medicine Geriatric Medicine; Referring Provider Family Medicine Geriatric Medicine; Visit Provider Family Medicine Geriatric Medicine | DX: L02.91 Cutaneous abscess, unspecified (principal); L03.113 Cellulitis of right upper limb | CPT/HCPCS: 87070; 87075; 87077; 87186; 87205 ==

== ENCOUNTER → 2024-10-24 | Outpatient (CLI) | payer MEDICARE, SELFPAY ==
[2024-10-24 16:56] LABS: Absolute Lymphocyte Count 1.95 X10^3/uL (0.83-4.51); Basophil# 0.04 X10^3/uL; Basophil% 0.4 % (0-1); Eosinophil# 0.15 X10^3/uL; Eosinophils% 1.6 % (0-5); Hematocrit 39.7 % (40-54); Hemoglobin 13.8 g/dL (13.0-16.5); Lymphocyte # 1.95 X10^3/ul (0.83-4.51); Mean Corp Hgb Conc 34.8 g/dL (32-36); Mean Corpuscular Hgb 31.1 pg (27.0-32.0); Mean Corpuscular Volume 89.4 fL (80-94); Mean Platelet Vol. 10.1 fl (6.2-12.0); Monocyte# 0.99 X10^3/uL; Monocyte% 10.7 % (0-10); NRBC Flagged by Analyzer 0 % (0-5); Neutrophil # 6.03 X10^3/uL (2.7-7.7); Neutrophil % 64.9 % (47-70); Platelet Count 352 K/mm3 (150-450); RBC Distribution Width CV 13.2 % (11.6-14.6); RBC Distribution Width SD 42.5 fl (35.1-43.9); Red Blood Count 4.44 M/mm3 (4.6-6.2); White Blood Count 9.3 K/mm3 (4.4-11.0)
[2024-10-24 17:34] LABS: ALB/GLOB Ratio 1.4 RATIO (0.9-2.4); AST(SGOT) 48 U/L (<=37); Alanine Aminotransfer ALT/SGPT 91 U/L (<=46); Albumin, Serum 3.9 g/dL (3.4-4.8); Alkaline Phosphatase 91 U/L (40-129); Anion Gap 11 (5-15); BUN 17 mg/dL (4-19); BUN/Creat Ratio 19.4 RATIO (10-20); Calcium,Total 9.3 mg/dL (7.6-11.0); Carbon Dioxide 24.9 mmol/L (21.0-32.0); Chloride 101 mmol/L (98-108); Creatinine, Serum 0.88 mg/dL (0.70-1.20); EST Glomerular Filtration Rate 96 (>60); Globulin 2.8 g/dL (2.2-4.2); Glucose 108 mg/dL (70-99); Potassium 3.5 mmol/L (3.3-5.1); Protein, Total 6.6 g/dL (5.9-8.4); Sodium Level 137 mmol/L (133-145); Total Bilirubin 0.94 mg/dL (0.00-1.30)
[2024-10-24 19:29] LABS: Pro- Brain NATRIURETIC PEPTIDE 334 pg/mL (<=900)
== END | disposition home or self-care (01) ==
LOC: LAB 16:09
PROVIDERS: PCP Family Medicine Geriatric Medicine; Referring Provider Family Medicine Geriatric Medicine; Visit Provider Family Medicine Geriatric Medicine
DX: E78.5 Hyperlipidemia, unspecified (principal); R79.89 Other specified abnormal findings of blood chemistry
CPT/HCPCS: 36415; 80053; 83880; 85025

== ENCOUNTER 2025-01-05 16:39 | Emergency (ER) | payer MEDICARE, SELFPAY ==
[2025-01-05 16:39] VITALS: BP 121/65; PULSE 112; RESP 18; TEMP 37.1; O2SAT 98
--- NOTE | 2025-01-05 16:59 | EKG12_ITS ---
Test Reason : Blood Pressure : */* mmHG Vent. Rate : 105 BPM Atrial Rate : 105 BPM P-R Int : 112 ms QRS Dur : 80 ms QT Int : 348 ms P-R-T Axes : 13 -11 134 degrees QTcB Int : 459 ms Sinus tachycardia Left ventricular hypertrophy with repolarization abnormality ( R in aVL ) Abnormal ECG Confirmed by Aron Freeman ([id number]), deputy editor in chief FREDDY LADD ([id number]) on 01/10/2025 11:32:53 AM Referred By: Ash Nelson Confirmed By: Aron Freeman
--- NOTE | 2025-01-05 17:10 | EX.ED.DYSGE1 ---
HPI History of Present Illness Chief Complaint: Weakness Narrative Narrative: Chief complaint and HPI: Weakness. 64-year-old male with past medical history of esophageal cancer on chemotherapy presents for evaluation of weakness. Patient states in August he developed dysphagia in which he was diagnosed with esophageal cancer. He follows with [facility] oncology Dr. Fraga. He states he received his fourth round of chemotherapy 2 weeks ago. He states that he is currently done with chemotherapy at this time as he is scheduled to have esophageal surgery in January at [facility]. Patient states for the past 2 weeks he has had increasing weakness, decreased p.o. intake, and mouth sores. He denies any fever, chills, shortness of breath, chest pain, abdominal pain, nausea, vomiting, dysuria. States he has had some nasal congestion. no known sick contacts that he knows of. Taking antinausea medicine with minimal relief. States he called his oncologist today who told him to present to the emergency department. Review of systems: See HPI Medications: As listed on the chart Allergies: As listed on the chart PFSH: Per chart Vital signs: As listed on the chart. Reviewed. Physical exam: Gen: A&O x3, NAD Head: Normocephalic, atraumatic Eyes: No sclera icterus, conjunctiva clear, PERRL, EOMI ENT: TMs clear BL, dry mucous membranes, posterior oropharynx unremarkable, uvula midline, tonsils not enlarged, no thrush, patient does have a few scattered mouth ulcers that are consistent with canker sore, adentulous Neck: Trachea midline, No JVD, Full ROM, No meningismus CV: Tachycardic, regular rhythm, no murmurs, no peripheral edema Resp: Lungs CTA BL, no w/r/c GI: Abd soft, non-distended, non-tender, no r/r/g Musc: Moves all extremities, no deformity Skin: Warm, dry, no rash Neuro: Alert, oriented, grossly intact, sensation intact Psych: Cooperative, appropriate mood and affect [facility] Medical History Acute right flank pain (~03/26/22) Allergies Ambulates with cane Arthritis Back pain Back problem Blackout Bone fracture Cardiology follow-up encounter COPD (chronic obstructive pulmonary disease) CPAP (continuous positive airway pressure) dependence Dermatofibroma of chest Easy bruising Elective replacement indicated for pacemaker Gastric reflux GERD (gastroesophageal reflux disease) History of diverticulitis History of echocardiogram History of edema History of pacemaker History of pain when walking History of stress test Injury of head and neck Kidney stones Leg cramps Lumbar spondylosis Other acute postprocedural pain Pacemaker lead malfunction Presence of cardiac pacemaker Renal stones Restless leg syndrome Restless legs Shortness of breath on exertion Sick sinus syndrome Sinus arrest Sinus bradycardia Smoker Smoker Syncope Syncope and collapse Wears dentures Wears glasses Home Medications ?Medication ?Instructions ?Recorded ?Last Taken ?Type gabapentin 400 mg capsule 400 mg PO BID 06/26/22 Unknown History BMX 180 mL suspension 10 ml PO Q6H PRN pain #180 mL 01/05/25 Unknown Rx ergocalciferol (vitamin D2) 1,250 1,250 mcg PO QWEEK 01/05/25 01/03/25 History mcg (50,000 unit) capsule levofloxacin 750 mg tablet 750 mg PO DAILY 5 days #5 tabs 01/05/25 Unknown Rx morphine 10 mg/5 mL oral solution 5 mg (2.5 mL) PO Q6H PRN pain 5 01/05/25 Unknown Rx days #50 mL ondansetron HCl 8 mg tablet 8 mg PO Q8H PRN PRN nausea/vomiting 01/05/25 01/05/25 History sucralfate 100 mg/mL oral 10 ml PO 4X/DAY 01/05/25 Unknown History suspension Allergy/AdvReac Type Severity Reaction Status Date / Time morphine AdvReac MAKES ME Verified 01/05/25 16:41 MAD Family History Mother Colon cancer Sister Breast cancer Sister Breast cancer Other CVA (cerebral vascular accident) Surgical History H/O cervical spine surgery H/O inguinal hernia repair History of esophagogastroduodenoscopy (EGD) History of heart surgery Hx of cholecystectomy Hx of colonoscopy Social History household members: spouse, children and other details: grandchildren housing: house current occupational status: unemployed pets and animals: No Smoking Status: Current every day smoker tobacco type: cigarettes alcohol intake: current alcohol intake frequency: holidays/special occasions only substance use type: does not use caffeine: Yes Type: carbonated beverages Number of servings: 3 and coffee Number of servings: 1 what type of physical activity do you participate in: none seatbelt use: never do you feel safe at home: Yes additional social history: Does Take Ibuprofen As Needed Does Not Take Aspirin EXAM Physical Exam Const Vital Signs: 01/05/25 16:39 01/05/25 16:39 01/05/25 18:03 Temperature 98.7 F 98.7 F Temperature Source Oral Oral Pulse Rate 112 H 108 H Respiratory Rate 18 26 H Respiratory Effort Normal Non-Labored Respiratory Pattern Normal Blood Pressure 121/65 H 116/69 Blood Pressure Mean 83 84 Pulse Ox 98 96 Oxygen Delivery Method Room Air Room Air 01/05/25 19:03 01/05/25 20:00 01/05/25 21:18 Temperature 98.2 F 98.7 F Temperature Source Oral Pulse Rate 111 H 108 H 90 Respiratory Rate 25 H 18 18 Respiratory Effort Respiratory Pattern Blood Pressure 113/68 125/70 H 106/77 Blood Pressure Mean 83 88 86 Pulse Ox 94 95 97 Oxygen Delivery Method Room Air MDM MDM MDM Narrative Medical decision making narrative: 64-year-old male with past medical history of esophageal cancer on chemotherapy presents for evaluation of weakness. Patient states that he received chemotherapy 2 weeks ago and since then has had increased weakness, decreased p.o. intake, mouth sores. Talk to his oncologist today Dr. Fraga who told the patient to present to the emergency department. See physical exam findings. On presentation, patient is no acute distress although appears clinically dehydrated. He is tachycardic. Differential diagnosis includes but is not limited to chemotherapy side effect, dehydration, electrolyte abnormality, viral illness, pneumonia, UTI. NS bolus and Zofran ordered for symptoms. Laboratory workup ordered including chest x-ray. On chart review, I do not have any notes from his oncologist. Patient does not know the chemotherapy that he currently receives. There is no update in the chart of which chemotherapy is currently receiving. EKG and chest x-ray reviewed see below. CBC with pancytopenia. WBC 1.7, hemoglobin 9.6, platelet count 107. This is new from previous labs in October. Patient has neutropenia with an absolute neutrophil count at 0.5 x 10^3. CMP without significant electrolyte abnormality or BERNARD. Patient has worsening transaminitis with an AST of 106 and ALT of 143. Currently not having any abdominal pain. Magnesium level unremarkable. Lactic acid unremarkable. Troponin unremarkable. Patient not having any chest pain therefore I do not think delta is needed. UA is positive for ketones which is consistent with mild dehydration. Negative for UTI. At this point in time, no clear etiology to explain patient's symptoms although I think it is likely secondary to chemotherapy and his cancer. His mouth sores may be secondary to his neutropenia. Oncology was consulted and I spoke with Dr. Jiménez. Plan is to start the patient on a 5-day course of Levaquin for his neutropenia as prophylaxis. Patient given the first dose here in the emergency department. Recommended liquid morphine and BMX solution for mild sore pain. Patient is to call the office tomorrow morning for follow-up. Patient was educated of the plan and confirmed understanding. His vitals are stable. Patient is stable to discharge home. Return precautions explained. EKG: Interpreted by me/EM physician: Chest x-ray without pneumonia, large effusion, pneumothorax, cardiomegaly. Radiology in agreement. Diagnostic: Interpreted by me/EM physician: EKG shows sinus tachycardia with left ventricular hypertrophy. No acute ischemic changes. Heart rate 105. Impression: 1. Weakness 2. Mouth sores 3. Mild dehydration 4. Neutropenia from chemotherapy 5. Pancytopenia from chemotherapy Lab Data Labs: Laboratory Results - last 24 hr 01/05/25 01/05/25 17:36 18:50 WBC 1.7 L RBC 3.55 L Hgb 9.6 L Hct 29.6 L MCV 83.4 MCH 27.0 MCHC 32.4 RDW Std Deviation 46.3 H RDW Coeff of Reinier 15.6 H Plt Count 107 L MPV 10.9 Immature Gran % (Auto) 0.600 Neut % (Auto) 29.9 L Lymph % (Auto) 49.4 H Bleckley % (Auto) 19.0 H Eos % (Auto) 0.0 Baso % (Auto) 1.1 H Absolute Neuts (auto) 0.5 L Absolute Lymphs (auto) 0.86 Nucleated RBC % 0 Differential Comment SCANNED Diff Path Review November foll PT 14.2 INR 1.1 APTT 33.3 Sodium 134 Potassium 3.6 Chloride 100 Carbon Dioxide 23.4 Anion Gap 11 BUN 9 Creatinine 0.53 L Est GFR (MDRD) Non-Af 112 BUN/Creatinine Ratio 17.4 Glucose 97 Lactic Acid < 1.0 Calcium 9.1 Magnesium 1.7 Total Bilirubin 1.30 AST 106 H ALT 143 H Alkaline Phosphatase 95 Troponin T High Sens 8 Total Protein 6.5 Albumin 3.5 Globulin 3.0 Albumin/Globulin Ratio 1.2 Urine Color Yellow Urine Clarity Clear Urine pH 6.0 Ur Specific [place] 1.025 Urine Protein 30 H Urine Glucose (UA) Normal Urine Ketones 15 H Urine Occult Blood 10 H Urine Nitrite Negative Urine Bilirubin Negative Urine Urobilinogen Normal Ur Leukocyte Esterase Negative Urine RBC 0-5 SEEN Urine WBC 0-5 SEEN Ur Squamous Epith Cells 25-50 SEEN Urine Bacteria 2+ Hyaline Casts 0-5 SEEN Urine Mucus 3+ Radiography Diagnostic Testing: Clinical Impression(s) from Imaging Studies Chest X-Ray 01/05/25 17:45 IMPRESSION: As above. Reading Location: [place] [address] Discharge Plan Triage Chief Complaint: Weakness ED Provider: Ash Nelson Dx/Rx/DC Orders Clinical Impression: Neutropenia, Weakness Instructions: Neutropenia, Cancer: Managing Fatigue, Neutropenia Risk for Infection, ED Weakness Uncertain Cause Prescriptions: New levofloxacin 750 mg tablet 750 mg PO DAILY 5 Days Qty: 5 0RF BMX 180 mL suspension 10 ml PO Q6H PRN (Reason: pain) Qty: 180 0RF Rx Instructions: Benadryl 12.5 mg/5 mL oral elixir 60 mL; Maalox Maximum Strength 400 mg-400 mg-40 mg/5 mL oral suspension 60 mL; Xylocaine Viscous 2 % mucosal solution 60 mL; Per 180 mL morphine 10 mg/5 mL solution 5 mg PO Q6H PRN (Reason: pain) 5 Days Qty: 50 0RF No Action gabapentin 400 mg capsule 400 mg PO BID sucralfate 100 mg/mL suspension 10 ml PO 4X/DAY Patient Comments: pt states hasn't taken yet ondansetron HCl 8 mg tablet 8 mg PO Q8H PRN PRN (Reason: nausea/vomiting) ergocalciferol (vitamin D2) 1,250 mcg (50,000 unit) capsule 1,250 mcg PO QWEEK Primary Care Provider: Josef Garcia Chi Referrals: Kemal Fraga MD [Med Staff - Active Staff] - 3-5 Days Josef Garcia Chi, MD [Primary Care Provider] - 3-5 Days Activity Restrictions/Additional Instructions: Follow-up with oncology. Call tomorrow to make a follow-up appointment. Return back to the ED if symptoms change or worsen. Take all of your antibiotics. You received your first dose here in emergency department. Print Language: Pakistani Disposition Disposition: Home, Self Care Discharge Date/Time: 01/05/25 21:35
--- NOTE | 2025-01-05 17:45 | RAD_ITS ---
PROCEDURE: CHEST PA AND LATERAL 01/05/2025 REASON FOR EXAM: WEAKNESS, CHEMOTHERAPY TECHNIQUE: CHEST PA AND LATERAL COMPARISON: 11/19/2023. FINDINGS: The heart is enlarged. Mild bibasilar atelectasis. Vascular stent overlies the mediastinum. Left chest pacemaker. No acute osseous abnormalities. RAD/Chest PA and Lateral IMPRESSION: As above. Reading Location: [place] [id number]
[2025-01-05 18:00] LABS: Absolute Lymphocyte Count 0.86 X10^3/uL (0.83-4.51); Absolute Neutrophil Count 0.5 X10^3/uL (2.0-7.7); Basophil# 0.02 X10^3/uL; Basophil% 1.1 % (0-1); Hematocrit 29.6 % (40-54); Hemoglobin 9.6 g/dL (13.0-16.5); Lymphocyte # 0.86 X10^3/ul (0.83-4.51); Lymphocyte % 49.4 % (19-41); Mean Corp Hgb Conc 32.4 g/dL (32-36); Mean Corpuscular Volume 83.4 fL (80-94); Mean Platelet Vol. 10.9 fl (6.2-12.0); Monocyte# 0.33 X10^3/uL; NRBC Flagged by Analyzer 0 % (0-5); Neutrophil # 0.52 X10^3/uL (2.7-7.7); Neutrophil % 29.9 % (47-70); POSITIVE DIFFERENTIAL YES; POSITIVE MORPHOLOGY YES; Platelet Count 107 K/mm3 (150-450); RBC Distribution Width CV 15.6 % (11.6-14.6); RBC Distribution Width SD 46.3 fl (35.1-43.9); Red Blood Count 3.55 M/mm3 (4.6-6.2); White Blood Count 1.7 K/mm3 (4.4-11.0)
[2025-01-05 18:02] LABS: Differential Indicated SCAN CRITERIA MET
[2025-01-05 18:03] VITALS: BP 116/69; PULSE 108; RESP 26; TEMP 37.1; O2SAT 96
[2025-01-05] MEDS: 0.9% Normal Saline (1000mL) 1,000 ML 1000 ML IV (18:15)
[2025-01-05] MEDS: Ondansetron 4 MG/2 ML Vial IV (18:15)
[2025-01-05 18:23] LABS: ALB/GLOB Ratio 1.2 RATIO (0.9-2.4); AST(SGOT) 106 U/L (<=37); Alanine Aminotransfer ALT/SGPT 143 U/L (<=46); Albumin, Serum 3.5 g/dL (3.4-4.8); Alkaline Phosphatase 95 U/L (40-129); Anion Gap 11 (5-15); BUN 9 mg/dL (4-19); BUN/Creat Ratio 17.4 RATIO (10-20); Calcium,Total 9.1 mg/dL (7.6-11.0); Carbon Dioxide 23.4 mmol/L (21.0-32.0); Chloride 100 mmol/L (98-108); Creatinine, Serum 0.53 mg/dL (0.70-1.20); EST Glomerular Filtration Rate 112 (>60); Glucose 97 mg/dL (70-99); Lactic Acid < 1.0 mmol/L (0.0-2.0); Magnesium 1.7 mg/dL (1.5-2.2); Potassium 3.6 mmol/L (3.3-5.1); Protein, Total 6.5 g/dL (5.9-8.4); Sodium Level 134 mmol/L (133-145)
[2025-01-05 18:27] LABS: International Normalized Ratio 1.1; Prothrombin Time (Protime)PT. 14.2 SECONDS (11.7-14.9)
[2025-01-05 18:28] LABS: Differential Comment SCANNED; Partial Thromboplast Time 33.3 Seconds (24.1-36.2)
[2025-01-05 18:29] LABS: Pathologist Review May foll
[2025-01-05 18:43] LABS: Troponin T High Sensitivity 8 ng/L (<=22)
[2025-01-05 19:00] LABS: Color, Urine Yellow (Yellow); Glucose, Dipstick Normal (Normal); Ketone-Dipstick 15 mg/dl (Negative); Leukocyte Esterase-Dipstick Negative /ul (Negative); Nitrite-Dipstick Negative (Negative); Occult Blood-Urine 10 /ul (Negative); Protein-Dipstick 30 mg/dl (Negative); Specific Gravity, Urine 1.025 (1.002-1.030); Urine Bilirubin Dipstick Negative (Negative); Urine Clarity Clear (Clear); Urine Urobilinogen Normal (Normal)
[2025-01-05 19:03] VITALS: BP 113/68; PULSE 111; RESP 25; TEMP 36.8; O2SAT 94
[2025-01-05 19:39] LABS: Red Blood Cells-Urine 0-5 SEEN /hpf (0-5); Squamous Epithelial Cells - UA 25-50 SEEN /hpf (0-5); White Blood Cells 0-5 SEEN /hpf (0-5)
[2025-01-05 19:40] LABS: Bacteria 2+ /hpf (None Seen); Hyaline Cast 0-5 SEEN /lpf (0-5); Mucous, Urine 3+ /hpf (<or=2+)
--- NOTE | 2025-01-05 19:54 | PCA ---
PAGED CC ONC. DR. @ [id number]. THEY WILL REACH OUT AND CALL BACK WITHIN THE HOUR.
[2025-01-05 20:00] VITALS: BP 125/70; PULSE 108; RESP 18; O2SAT 95
[2025-01-05] MEDS: levoFLOXacin 750 MG Tablet PO (21:09)
[2025-01-05 21:18] VITALS: BP 106/77; PULSE 90; RESP 18; TEMP 37.1; O2SAT 97
== END 2025-01-05 21:35 | disposition home or self-care (01) ==
PROVIDERS: Emergency Provider Surgery; PCP Family Medicine Geriatric Medicine; Referring Provider Surgery; Visit Provider Surgery
DX: D70.1 Agranulocytosis secondary to cancer chemotherapy (principal); C15.9 Malignant neoplasm of esophagus, unspecified; J44.9 Chronic obstructive pulmonary disease, unspecified; E86.0 Dehydration; K13.79 Other lesions of oral mucosa; D61.810 Antineoplastic chemotherapy induced pancytopenia; T45.1X5A Adverse effect of antineoplastic and immunosuppressive drugs, initial encounter; K21.9 Gastro-esophageal reflux disease without esophagitis; G25.81 Restless legs syndrome; F17.210 Nicotine dependence, cigarettes, uncomplicated; Z87.19 Personal history of other diseases of the digestive system; Z90.49 Acquired absence of other specified parts of digestive tract; Z79.899 Other long term (current) drug therapy
CPT/HCPCS: 36591; 71046; 80053; 81001; 83605; 83735; 84484; 85025; 85610; 85730; 87631; 93005; 96361; 96374; 99283; A4216; J2405

== ENCOUNTER 2025-05-26 05:51 | Emergency (ER) | payer MEDICARE, SELFPAY ==
[2025-05-26] VITALS (8 sets, daily range): BP systolic 83–149; BP diastolic 50–84; PULSE 60–70; RESP 12–16; TEMP 36.4–36.7; O2SAT 95–100; BMI 25.6
--- NOTE | 2025-05-26 06:04 | CT_ITS ---
PROCEDURE: CHEST WITH CONTRAST 05/26/2025 REASON FOR EXAM: ESOPHAGEAL CANCER S/P ESOPHAGECTOMY AND ASPIRATION TECHNIQUE: Procedure Code: CTCHW Modality: CT Procedure: CHEST WITH CONTRAST Coronal and Sagittal reconstruction series were provided. CONTRAST: Isovue 370 VOLUME: 99 mL One or more dose reduction techniques were used (e.g., Automated exposure control, adjustment of the mA and/or kV according to patient size, use of iterative reconstruction technique). RADIATION DOSE SUMMARY: CTDlvol: 0630 mGy DLP: 350.76 mGycm COMPARISON: Low-dose CT lung April 09, 2023. FINDINGS: Hardware: A left-sided AICD device in place. Mediastinum lymph nodes: No lymphadenopathy. Status post esophagectomy and stomach pull-through procedure. Heart and Vasculature: Mild cardiomegaly. Atherosclerotic calcifications of the coronary arteries. Lungs and Airways: Linear densities in the right lower lobe. Pleura: No pleural effusion or pneumothorax. Upper Abdomen: Left adrenal nodule measures 2 cm is stable. Bones: No acute bony abnormalities. CT/Chest WITH Contrast IMPRESSION: Coronary artery calcification (CAC) is present. Postsurgical changes. No acute or suspicious chest findings. Stable left adrenal nodule measures 2 cm. Reading Location: [facility]
--- NOTE | 2025-05-26 06:05 | EKG12_ITS ---
Test Reason : Blood Pressure : */* mmHG Vent. Rate : 60 BPM Atrial Rate : * BPM P-R Int : * ms QRS Dur : 74 ms QT Int : 400 ms P-R-T Axes : * 30 22 degrees QTcB Int : 400 ms Demand atrial paced rhythm with PAC's Abnormal ECG Confirmed by Aron Freeman ([id number]), commercial production editor FAUSTINA BINGHAM ([id number]) on 05/31/2025 5:49:07 AM Referred By: Confirmed By: Aron Freeman
[2025-05-26 06:13] LABS: Hematocrit 37.6 % (40-54); Hemoglobin 12.0 g/dL (13.0-16.5); Immature Granulocytes Count 0.030 X10^3/uL (0.0-0.0); Mean Corp Hgb Conc 31.9 g/dL (32-36); Mean Corpuscular Volume 93.3 fL (80-94); Mean Platelet Vol. 9.1 fl (6.2-12.0); NRBC Flagged by Analyzer 0 % (0-5); Platelet Count 332 K/mm3 (150-450); RBC Distribution Width CV 15.6 % (11.6-14.6); RBC Distribution Width SD 54.0 fl (35.1-43.9); Red Blood Count 4.03 M/mm3 (4.6-6.2); White Blood Count 9.3 K/mm3 (4.4-11.0)
[2025-05-26] MEDS: 0.9% Normal Saline (1000mL) 1,000 ML 1000 ML IV (06:16)
--- OUTSIDE RECORDS SUMMARY | 2025-05-26 06:29 | XMS RPT_ITS | CCD ---
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 Josef Dixon Primary Care Provider Remedios Arevalo Attending Provider Unavailable Dr. Josef Garcia Chi Referring Provider Jimena Farnsworth Attending Provider Unavailable Dr. Lorraine Rubio Attending Provider Dr. ARACELY COLE Referring Unavailabl e TRINO MARADIAGA, Dr. VALENZUELA Attending Unavailabl e Dr. Josef Garcia Chi Primary Care Provider Remedios Arevalo Attending Provider Unavailable Dr. Josef Garcia Chi Referring Provider Jimena Farnsworth Attending Provider Unavailable Dr. Lorraine Rubio Attending Provider Dr. Josef Garcia Chi Primary Care Provider Dr. Josef Garcia Chi Referring Provider Dr. Lorraine Rubio Attending Provider MD ARACELY COLE Admitting Unavailable MD ARACELY COLE Attending Unavailable MD ARACELY COLE Referring Unavailable MD ARACELY COLE Attending Unavailable MD ARACELY COLE Referring Unavailable Dr. Elgin Alvarado Attending Unavaila Dr. Cynthia Moorewari Admitting Unava ilable Judith, Dr. Jones Referring Unava ilable MD ARACELY COLE Attending Unavailable MD ARACELY COLE Attending Unavailable Jose, Dr. Josef Dixon Primary Care Provider [phone] Jose, Dr. Josef Dixon Referring Provider Jimena Farnsworth Attending Provider Unavailable [place], Dr. Ortiz Attending Provider [phone] King, Dr. Hutchison Attending Provider [phone] King, Dr. Hutchison Referring Provider [phone] Jose, Dr. Josef Dixon Referring Provider Jose, Dr. Josef Dixon Primary Care Provider [phone] King, Dr. Hutchison Attending Provider [phone] King, Dr. Hutchison Referring Provider [phone] Jose, Dr. Josef Dixon Primary Care Provider [phone] Jose, Dr. Josef Dixon Referring Provider Ramiro, Dr. Peters Attending Provider [phone] JOSE MORTENSEN, DR GONZALEZ Primary Care Physician SIMON MORTENSEN, DR ARACELI REICH Attending Jae GARCIA MD, DR GONZALEZ Primary Care Unavailable SIMON MORTENSEN, DR ARACELI REICH Attending Jae GARCIA MD, DR GONZALEZ Primary Care Unavailable Jose, Dr. Josef Dixon Primary Care Provider King, Dr. Hutchison Attending Provider [phone] King, Dr. Hutchison Referring Provider [phone] Ramiro, Dr. Peters Attending Provider Roof QUALITY CONTROL REPRESENTATIVE, QUALITY CONTROL REPRESENTATIVE-C Vinnie H Referring Provider Roof QUALITY CONTROL REPRESENTATIVE, QUALITY CONTROL REPRESENTATIVE-C Vinnie H Other Provider Roof QUALITY CONTROL REPRESENTATIVE, QUALITY CONTROL REPRESENTATIVE-C Vinnie H Attending Provider Jose, Josef Dixon Primary Care Provider [phone] [facility] Unavailable Ramiro MORTENSEN, Lorraine Unavailable [facility], [facility] Unavailable Unavailable Rupali MORTENSEN, Zia A Unavailable Flakito MORTENSEN, Kemal Unavailable Jose MORTENSEN, Dr. Josef Dixon Primary Care Provider [phone] Ramiro MORTENSEN, Dr. Peters Attending Provider Ramiro MORTENSEN, Dr. Peters Referring Provider Catrina MORTENSEN, Dr. Ortiz Attending Provider Jose MORTENSEN, Dr. Josef Dixon Attending Provider Jose MORTENSEN, Dr. Josef Dixon Referring Provider Ricardo Rounding Nurse, Ace Unavailable Jae Garcia MD, Dr. Josef Dixon Primary Care Provider Taz RN, Marlene Unavailable JOSE MORTENSEN, DR GONZALEZ Primary Care Unavailable JOSE MORTENSEN, DR GONZALEZ Consulting Unavailable FALGUNI MOSER MD Attending Unavailable LUIS F MORTENSEN, DR TAMIKO Cortes Admitting Unavailable JACKY FARLEY MD Consulting Unavailable Kay Moore Unavailable Unavailabl e JOSE, JOSEF CHI Primary Care Unavailable KEMAL OBREGON Referring Unavailable KEMAL OBREGON Referring Unavailable JOSE, JOSEF CHI Primary Care Unavailable JOSE, JOSEF CHI Primary Care Unavailable PROVIDER, UNKNOWN Referring Unavailable JOSE, JOSEF CHI Primary Care Unavailable PROVIDER, UNKNOWN Referring Unavailable JOSE, JOSEF CHI Primary Care Unavailable BRYSON STEPHENSON Attending Unavailable BRYSON STEPHENSON Admitting Unavailable Jose MORTENSEN, Dr. Josef Dixon Primary Care Provider Jose MORTENSEN, Dr. Josef Dixon Attending Provider Dr. Josef Garcia MD, Chi Referring Provider King MORTENSEN, Dr. Hutchison Attending Provider Omar CHILDRESS, Dr. Aleman Referring Provider Dr. Ash Nelson DO Emergency Provider [place] RD, Faustina Unavailable Jose MORTENSEN, Dr. Josef Dixon Primary Care Provider Omar CHILDRESS, Dr. Aleman Attending Provider King MORTENSEN, Dr. Hutchsion Attending Provider APRIL MORTENSEN, DR ANDUJAR Consulting Unavailabl e STEVEN RAINES-DANIELA CASTRO Admitting Unavailable STEVEN BLAKE, DANIELA Bustillo Attending Unavailable JOSE MORTENSEN, DR RICHARDS-CHI Primary Care Unavailable APRIL MORTENSEN, DR ANDUJAR Attending Unavailabl e JOSE MORTENSEN, DR GNOZALEZ Primary Care Unavailable HILL, ТАТЬЯНА MELQUIADES Referring Unavailable JOSE, JOSEF CHI Primary Care Unavailable HILL ТАТЬЯНА MELQUIADES Referring Unavailable JOSE, JOSEF CHI Primary Care Unavailable Jose, Josef Chi Referring Unavailable Ramiro, Lorraine Attending Unavailable Jose, Josef Chi Primary Care Unavailable Jimena Farnsworth Attending Unavailable Jose, Josef Chi Primary Care Unavailable Jose, Josef Chi Referring Unavailable Jose, Josef Chi Referring Unavailable Jimmy Morales Attending Unavailable Jose, Josef Chi Primary Care Unavailable Jose, Josef Chi Primary Care Unavailable King [place] Referring Unavailable KingAndreHouston Attending Unavailable Jose, Josef Chi Primary Care Unavailable Ramiro, Lorraine Referring Unavailable Angel Fritz Attending Unavailable Jose, Josef Chi Primary Care Unavailable King [place] Attending Unavailable Jose, Josef Chi Primary Care Unavailable Jose, Josef Chi Referring Unavailable Jose, Josef Chi Attending Unavailable Jose, Josef Chi Primary Care Unavailable Jose, Josef Chi Referring Unavailable Jose, Josef Chi Attending Unavailable Jose, Josef Chi Primary Care Unavailable Jose, Josef Chi Attending Unavailable Jose, Josef Chi Referring Unavailable Jose, Josef Chi Attending Unavailable Jose, Josef Chi Primary Care Unavailable Arnoldousty-Ash Luna Referring Unavailabl e Klusty-JeremyAsh Attending Unavailabl e Jose, Josef Chi Primary Care Unavailable Basali, Ayman Referring Unavailable Basali, Ayman Attending Unavailable Jose, Josef Chi Primary Care Unavailable Jose, Josef Chi Primary Care Unavailable Jose, Josef Chi Referring Unavailable Jose, Josef Chi Attending Unavailable Jose, Josef Chi Primary Care Unavailable Jose, Josef Chi Referring Unavailable Jose, Josef Chi Attending Unavailable Ramiro, Lorraine Referring Unavailable RamiroLorraine marks Attending Unavailable Jose, Josef Chi Primary Care Unavailable Foster Malik Referring Unavailable GENET, FAUSTINA Attending Unavailable JOSE, JOSEF CHI Primary Care Unavailable KEMAL OBREGON Referring Unavailable JOSE, JOSEF CHI Primary Care Unavailable ТАТЬЯНА HILL Referring Unavailable JOSE, JOSEF CHI Primary Care Unavailable JOSE, JOSEF CHI Primary Care Unavailable GENET, FAUSTINA Attending Unavailable JOSE, JOSEF CHI Primary Care Unavailable RENAY CLOUD Referring Unavailable JOSE, JOSEF CHI Primary Care Unavailable GENET, FAUSTINA Attending Unavailable JOSE, JOSEF CHI Primary Care Unavailable DAMIAN ARREGUIN Referring Unavailable JOSE, JOSEF CHI Primary Care Unavailable INGRID ORELLANA Attending Unavailable JOSE, JOSEF CHI Primary Care Unavailable GENET, FAUSTINA Attending Unavailable JOSE, JOSEF CHI Primary Care Unavailable GENET, FAUSTINA Attending Unavailable JOSE, JOSEF CHI Primary Care Unavailable JOSE, JOSEF CHI Primary Care Unavailable JOSE, JOSEF CHI Primary Care Unavailable GENET, FAUSTINA Attending Unavailable JOSE, JOSEF CHI Primary Care Unavailable KEMAL OBREGON Referring Unavailable JOSE, JOSEF CHI Primary Care Unavailable ABRKEMAL CORONADO Referring Unavailable JOSE, JOSEF CHI Primary Care Unavailable ABRIVONNE, KEMAL Referring Unavailable JOSE, OJSEF CHI Primary Care Unavailable JOSE, JOSEF CHI Primary Care Unavailable KEMAL OBREGON Attending Unavailable JOSE, JOSEF CHI Primary Care Unavailable FLAKITO, KEMAL Referring Unavailable ABRAMOVICKEMAL Maria Referring Unavailable JOSE, JOSEF CHI Primary Care Unavailable JOSE, JOSEF CHI Primary Care Unavailable JOSE, JOSEF CHI Primary Care Unavailable WILLEM SANCHEZ Admitting Unavailable WILLEM SANCHEZ Attending Unavailable JOSE, JOSEF CHI Primary Care Unavailable KEMAL OBREGON Attending Unavailable JOSE, JOSEF CHI Primary Care Unavailable KEMAL OBREGON Referring Unavailable JOSE, JOSEF CHI Primary Care Unavailable ABRAMKEMAL CORBIN Referring Unavailable JOSE, JOSEF CHI Primary Care Unavailable AURELIOAMKEMAL CORBIN Attending Unavailable AURELIOAMKEMAL CORBIN Referring Unavailable JOSE, JOSEF CHI Primary Care Unavailable JOSE, JOSEF CHI Primary Care Unavailable RENAY CLOUD Attending Unavailable KEMAL OBREGON Referring Unavailable JOSE, JOSEF CHI Primary Care Unavailable KEMAL OBREGON Referring Unavailable JOSE, JOSEF CHI Primary Care Unavailable ТАТЬЯНА HILL Referring Unavailable JOSE, JOSEF CHI Primary Care Unavailable GENET, FAUSTINA Attending Unavailable JOSE, JOSEF CHI Primary Care Unavailable JOSE, JOSEF CHI Primary Care Unavailable KEMAL OBREGON Referring Unavailable JOSE, JOSEF CHI Primary Care Unavailable GENETFAUSTINA Agrawal Attending Unavailable JOSE, JOSEF CHI Primary Care Unavailable GENETERASMO AgrawalFAUSTINA Attending Unavailable JOSE, JOSEF CHI Primary Care Unavailable BOOZER, DAMIAN Referring Unavailable JOSE, JOSEF CHI Primary Care Unavailable BOOZER, DAMIAN Referring Unavailable JOSE, JOSEF CHI Primary Care Unavailable BOOZER, DAMIAN Referring Unavailable JOSE, JOSEF CHI Primary Care Unavailable INGRID ORELLANA Attending Unavailable BOOZER, DAMIAN Referring Unavailable JOSE, JOSEF CHI Primary Care Unavailable BOOZER, DAMIAN Referring Unavailable JOSE, JOSEF CHI Primary Care Unavailable JOSE, JOSEF CHI Primary Care Unavailable KEMAL OBREGON Referring Unavailable JOSE, JOSEF CHI Primary Care Unavailable INGRID ORELLANA Attending Unavailable JOSE, JOSEF CHI Primary Care Unavailable GENETERASMOFAUSTINA Attending Unavailable JOSE, JOSEF CHI Primary Care Unavailable JOSE, JOSEF CHI Primary Care Unavailable JANNETH WHITE Consulting Unavailable JOSE, JOSEF CHI Primary Care Unavailable VISIONIRENAY Referring Unavailable VISIONI, RENAY Mendez Attending Unavailable VISIONIRENAY Admitting Unavailable VÍCTOR KIDD Consulting Unavailable JOSE, JOSEF CHI Primary Care Unavailable DARCY, EDWIN Referring Unavailable DARCY EDWIN Attending Unavailable DARCY, EDWIN Admitting Unavailable JOSE, JOSEF CHI Primary Care Unavailable KELLIEAKKRZYSZTOF ABDUL Referring Unavaila ble ISSAKKRZYSZTOF Attending Unavaila ble JOSE, JOSEF CHI Primary Care Unavailable VISIONRENAY Dominique Attending Unavailable JOSE, JOSEF CHI Primary Care Unavailable VISIONIRENAY J Referring Unavailable JOSE, JOSEF CHI Primary Care Unavailable VISIONI, RENAY Mendez Referring Unavailable JOSE, JOSEF CHI Primary Care Unavailable VISIONI, RENAY Mendez Referring Unavailable JOSE, JOSEF CHI Primary Care Unavailable VISIONI, RENAY Mendez Referring Unavailable VISIONI, RENAY Mendez Attending Unavailable VISIONI, RENAY J Admitting Unavailable JOSE, JOSEF CHI Primary Care Unavailable VISIONI, RENAY J Referring Unavailable VISIONI, RENAY J Attending Unavailable VISIONI, RENAY J Admitting Unavailable JOSE, JOSEF CHI Primary Care Unavailable VISIONI, RENAY J Referring Unavailable JOSE, JOSEF CHI Primary Care Unavailable VISIONI, RENAY Mendez Referring Unavailable VISIONI, RENAY Mendez Attending Unavailable JOSE, JOSEF CHI Primary Care Unavailable VISIONI, RENAY J Referring Unavailable DAMIAN ARREGUIN Attending Unavailable AMALIA RAGLAND Consulting Unavail able RENAY CLOUD Attending Unavailable RENAY CLOUD Admitting Unavailable JOSEF GARCIA CHI Primary Care Unavailable Allergies Allergy Classification Reported Allergen(s) Allergy Type Date of Onset Reaction(s) Facility (20 sources) morphine; Translations: [morphine] drug allergy 0 Other: See Comments, Mental Status Change [facility] Work Phone: (4 sources) Morphine Derivatives; Translations: [Morphine Derivatives] Allergy to drug (finding) Confusion [facility] Work Phone: (20 sources) Acetaminophen / oxyCODONE; Translations: [OXYCODONE-ACETAMI NOPHEN] Drug Allergy 5 GI Upset [facility] Medications Current Medications Medication Drug Class(es) Dates Sig (Normalized) Sig (Original) Albuterol (Eqv-Proventil HFA) 90 mcg/inh inhalation aerosol (2 sources) Start: 06-24-2023 take 2 puff(s) by inhalation four times daily as needed for wheezing Albuterol (Eqv-Proventil HFA) 90 mcg/inh inhalation aerosol 2 puff(s), Inhalation, QID, PRN Shortness of breath or wheezing, 0 Refill(s) Start Date: 06/24/23 Status: Ordered Repeat number: 1 Start: 06-24-2023 take 2 puff(s) by in halation four times daily as needed for wheezing Albuterol (Eqv-Proventil HFA) 90 mcg/inh inhalation aerosol 2 puff(s), Inhalation, QID, PRN Shortness of breath or wheezing, 0 Refill(s) Start Date: 06/24/23 Status: Ordered amoxicillin 80 mg/ml / clavulanate 11.4 mg/ml oral suspension (4 sources) Penicillin-class Antibacterial Start: 03-29-2025 End: 04-06-2025 amoxicillin-clavulanic acid (AUGMENTIN) 400-57 mg/5 mL suspension Add 11 mL to J-Tube every 12 hours for 7 days. *Discard any remainder* 175 mL 03/29/2025 10:49 AM EDT 03/29/2025 04/06/2025 Active atorvastatin 40 mg oral tablet (20 sources) HMG-CoA Reductase Inhibitor Start: 10-20-2024 take 1 tablet by mouth once daily LIPITOR 40 mg tablet Take 40 mg by mouth once daily. 10/20/2024 Active Bmx 180 mL suspension (3 sources) Start: 01-06-2025 Bmx 180 mL suspension Active 10 mL PO EVERY 6 HOURS NEEDED as needed for pain 180 0 January 06, 2025 1:51pm Benadryl 12.5 mg/5 mL oral elixir 60 mL; Maalox Maximum Strength 400 mg-400 mg-40 mg/5 mL oral suspension 60 mL; Xylocaine Viscous 2 % mucosal solution 60 mL; Per 180 mL Start: 01-05-2025 Bmx 180 mL gurinder pension Active 10 mL PO EVERY 6 HOURS as needed for pain 180 0 January 05, 2025 8:44pm Benadryl 12.5 mg/5 mL oral elixir 60 mL; Maalox Maximum Strength 400 mg-400 mg-40 mg/5 mL oral suspension 60 mL; Xylocaine Viscous 2 % mucosal solution 60 mL; Per 180 mL Start: 01-05-2025 Bmx 180 mL gurinder pension Active 10 mL PO EVERY 6 HOURS as needed for pain 180 January 05, 2025 8:44pm Benadryl 12.5 mg/5 mL oral elixir 60 mL; Maalox Maximum Strength 400 mg-400 mg-40 mg/5 mL oral suspension 60 mL; Xylocaine Viscous 2 % mucosal solution 60 mL; Per 180 mL Budesonide-Formoterol (20 sources) Corticosteroid, beta2-Adrenergic Agonist Start: 07-04-2020 take 1 puff(s) by inhalation twice daily Budesonide-Formoterol (Symbicort) 160-4.5 mcg/actuation HFA aerosol inhaler Active 2 PUFF INHALATION TWICE A DAY July 04, 2020 11:26am Start: 07-04-2020 End: 06-18-2023 Budesonide-Formoterol (Symbi julio c) 160-4.5 mcg/actuation HFA aerosol inhaler Discontinued 2 NMA INHALATION TWICE A DAY as needed for Wheezing July 04, 2020 1:00am June 18, 2023 4:13pm Start: 07-04-2020 End: 06-18-2023 take 1 puff(s) by inhalation twice daily Budesonide-Formoterol (Symbicort) 160-4.5 mcg/actuation HFA aerosol inhaler Discontinued 2 PUFF INHALATION TWICE A DAY July 04, 2020 1:00am June 18, 2023 4:13pm Start: 07-04-2020 End: 06-18-2023 take 1 puff(s) by inhalation twice daily Budesonide-Formoterol (Symbicort) 160-4.5 mcg/actuation HFA aerosol inhaler Discontinued 2 PUFF INHALATION TWICE A DAY July 04, 2020 12:00am June 18, 2023 3:13pm Start: 07-04-2020 take 1 puff(s) by in halation twice daily Budesonide-Formoterol (Symbicort) 160-4.5 mcg/actuation HFA aerosol inhaler Active 2 PUFF INHALATION TWICE A DAY July 04, 2020 12:00am Start: 07-04-2020 take 1 puff(s) by in halation twice daily Budesonide-Formoterol (Symbicort) 160-4.5 mcg/actuation HFA aerosol inhaler Active 2 PUFF INHALATION TWICE A DAY July 04, 2020 1:00am cefdinir 300 mg oral capsule (1 source) Cephalosporin Antibacterial Start: 10-20-2024 End: 10-23-2024 cefdinir 300 mg oral capsule Dose : 300 mg = 1 cap(s), Oral, q12h, X 3 day(s), # 6 cap(s), 0 Refill(s), 10/23/24 5:25:00 PM EDT, Pharmacy: [id number], 165.1, cm, 10/18/24 9:54:00 EDT, Height, 86, kg, 10/18/24 9:54:00 EDT, Dosing Weight Start Date: 10/20/24 Stop Date: 10/23/24 Status: Ordered Quantity: 6.0 Unit: cap(s) Repeat number: 1 ciprofloxacin 500 mg oral tablet (20 sources) Quinolone Antimicrobial Start: 06-26-2023 End: 07-01-2023 Cipro 500 mg oral tablet Dose : 500 mg = 1 tab(s), Oral, q12h, X 5 day(s), # 10 tab(s), 0 Refill(s), 07/01/23 1:31:00 PM EST, Pharmacy: [id number], 157.5, cm, 06/26/23 13:25:00 EST, Height, 93.2, kg, 06/26/23 13:25:00 EST, Dosing Weight Start Date: 06/26/23 Stop Date: 07/01/23 Status: Ordered Start: 05-01-2022 take 1 tablet by dylon th once daily Ciprofloxacin HCl - 250 MG Oral Tablet TAKE 1 TABLET EVERY 12 HOURS DAILY. Quantity: 6 Refills: 0 Ordered: 01-May-2022 Trino Maradiaga MD, MPH, [facility] Start : 01-May-2022 Active Start: 03-26-2022 End: 06-26-2022 take 1 tablet by mouth twice daily Ciprofloxacin Hcl (Cipro) 500 mg tablet Discontinued 500 mg PO TWICE A DAY 14 7 0 March 26, 2022 12:00am June 26, 2022 10:12am dicyclomine hydrochloride 10 mg oral capsule (20 sources) Anticholinergic Start: 11-28-2024 take 1 capsule by mouth three times daily as needed dicyclomine (BENTYL) 10 mg capsule Indications: Malignant neoplasm of lower third of esophagus (HCC) Take 1 capsule by mouth three times a day as needed. 30 capsule 11/28/2024 Active enteric contrast (will be provided with radiology test) (3 sources) Start: 03-29-2025 End: 03-30-2025 enteric contrast (will be provided with radiology test) For CT CHESTABD/PEL W IVCON Routine order Administer, As Directed One Time Only, via Oral, Rectal, both Oral and Rectal, Enteric Tube, Stoma or Indwelling Catheter, Enteric Contrast as designated per enteric contrast guidelines 1 each 03/29/2025 03/30/2025 Active fluconazole 40 mg/ml oral suspension (4 sources) Azole Antifungal Start: 03-30-2025 End: 04-06-2025 fluconazole (DIFLUCAN) 40 mg/mL suspension Add 10 mL by J-Tube once daily for 7 days. 70 mL 03/29/2025 10:36 AM EDT 03/30/2025 04/06/2025 Active gabapentin 400 mg oral capsule (20 sources) Anti-epileptic Agent Start: 06-26-2022 take 1 capsule by mouth twice daily Gabapentin 400 mg capsule Active 400 mg PO TWICE A DAY June 26, 2022 1:00am Start: 09-17-2015 End: 04-15-2022 take 1 capsule by mouth twice daily at mealtime Gabapentin 400 MG capsule Discontinued 400 mg PO TWICE DAILY WITH MEALS September 17, 2015 1:00am April 15, 2022 9:10am take 1 capsule by [facility] three times daily gabapentin (NEURONTIN) 300 mg capsule Take 300 mg by mouth three times daily. Active iv contrast (will be provide d with radiology test) (4 sources) Start: 03-29-2025 End: 03-30-2025 iv contrast (will be provide d with radiology test) CT Chest ABD/PEL-Inject, intravenously, once for 1 dose.No IV access, insert saline lock prior to the beginning of sedation, infusion, injection of imaging exam. Discontinue saline lock post exam. If Pt. has a central line or IVAD, may access for administration according to line specific nursing protocol. Once exam is complete flush line and de-access according to line specific nursing protocol in the CT contrast administration guidelines link. 1 each 03/29/2025 03/30/2025 Active Start: 10-12-2024 End: 10-13-2024 inject 1 dose intravenously once iv contrast (will be provided with radiology test) CT Brain W IVCON-No IV access, insert saline lock prior to the sedation, infusion, injection for imaging exam. Discontinue saline lock post exam. If Pt. has a central line or IVAD, may access for administration according to line specific nursing protocol. Once exam is complete flush line and de-access according to line specific nursing protocol in the CT contrast administration guidelines link. 1 Each 10/12/2024 10/13/2024 Active L.Acidoph,Saliva-B.Bif-S.The rm (Acidophilus Probiotic Blend) 175 mg capsule (20 sources) Start: 03-27-2021 take 1 capsule by mouth once daily L.Acidoph,Saliva-B.Bif-S.Therm (Acidophilus Probiotic Blend) 175 mg capsule Active 1 CAP PO DAILY March 27, 2021 10:50am Start: 03-27-2021 End: 04-15-2022 take 1 capsule by mouth once daily L.Acidoph,Saliva-B.Bif-S.Therm (Acidophi angi Probiotic Blend) 175 mg capsule Discontinued 1 NMA PO DAILY 10 0 March 27, 2021 12:00am April 15, 2022 9:11am Start: 03-27-2021 End: 04-15-2022 take 1 capsule by mouth once daily L.Acidoph,Saliva-B.Bif-S.Therm (Acidophi angi Probiotic Blend) 175 mg capsule Discontinued 1 NMA PO DAILY March 27, 2021 12:00am April 15, 2022 9:11am Start: 03-27-2021 End: 04-15-2022 take 1 capsule by mouth once daily L.Acidoph,Saliva-B.Bif-S.Therm (Acidophi angi Probiotic Blend) 175 mg capsule Discontinued 1 CAP PO DAILY March 26, 2021 11:00pm April 15, 2022 8:11am Start: 03-27-2021 End: 04-15-2022 take 1 capsule by mouth once daily L.Acidoph,Saliva-B.Bif-S.Therm (Acidophi angi Probiotic Blend) 175 mg capsule Discontinued 1 CAP PO DAILY March 27, 2021 12:00am April 15, 2022 9:11am Start: 03-27-2021 take 1 capsule by mouth once daily L.Acidoph,Saliva-B.Bif-S.Therm (Acidophi angi Probiotic Blend) 175 mg capsule Active 1 CAP PO DAILY March 27, 2021 12:00am levoFLOXacin 750 mg oral tablet (16 sources) Quinolone Antimicrobial Start: 01-05-2025 take 1 tablet by mouth once daily Levofloxacin 750 mg tablet Active 750 mg PO DAILY 5 5 0 January 05, 2025 12:00am lidocaine 25 mg/ml / prilocaine 25 mg/ml topical cream (20 sources) Antiarrhythmic, Amide Local Anesthetic Start: 11-07-2024 lidocaine-prilocai ne (EMLA) 2.5-2.5 % cream Apply to affected area as needed. 30 g 2 11/07/2024 Active Start: 11-07-2024 End: 11-16-2025 lidocaine-prilocaine (EMLA) 2.5-2.5 % cream Indications: Malignant neoplasm of lower third of esophagus (HCC) Apply 60 minutes before accessing port. 15 g 3 11/07/2024 12/28/2024 Discontinued 24 hr metoprolol succinate 25 mg extended release oral tablet (20 sources) beta-Adrenergic Issa Start: 10-20-2024 End: 10-20-2024 take 1 tablet by mouth once daily metoprolol succinate ER (TOPROL XL) 25 mg 24 hr tablet Take 25 mg by mouth once daily. 10/20/2024 Active Start: 04-15-2022 End: 06-26-2022 take 1 tablet by mouth once daily Metoprolol Succinate 25 mg tablet extended release 24 hr Discontinued 25 mg PO DAILY 90 April 15, 2022 12:00am June 26, 2022 10:12am morphine sulfate 2 mg/ml oral solution (2 sources) Opioid Agonist Start: 01-05-2025 take 5 mg by mouth every six hours as needed for pain Morphine 10 mg/5 mL solution Active 5 mg PO EVERY 6 HOURS as needed for pain 50 5 0 January 05, 2025 Sore in mouth Other lesions of oral mucosa multivitamin tablet (15 sources) Start: 02-06-2025 take 1 tablet by mouth once daily multivitamin tablet Take 1 tablet by mouth once daily for 14 days. 14 tablet 02/06/2025 Active Start: 02-06-2025 End: 02-20-2025 take 1 tablet by mouth once daily multivitamin tablet Take 1 tablet by mouth once daily for 14 days. 14 tablet 02/06/2025 02/20/2025 Active naloxone hydrochloride 40 mg/ml nasal spray (3 sources) Opioid Antagonist Start: 03-29-2025 naloxone 4 mg/actuation nasal spray (NARCAN) Use 1 spray in one nostril as needed for overdose. May repeat every 2 to 3 min in alternating nostrils until medical assistance is available 2 each 03/29/2025 Active oxyCODONE hydrochloride 1 mg/ml oral solution (16 sources) Opioid Agonist Start: 03-29-2025 End: 04-05-2025 take 5-10 mL by mouth every six hours as needed oxyCODONE (ROXICODONE) 5 mg/5 mL oral solution Indications: Malignant neoplasm of lower third of esophagus (HCC) Add 5-10 mL to J-Tube every 6 hours as needed for up to 7 days. 200 mL 03/29/2025 10:36 AM EDT 03/29/2025 04/05/2025 Active Start: 03-09-2025 End: 03-16-2025 take 1 tablet by mouth every six hours as needed for pain oxyCODONE IR (ROXICODONE) 5 mg immediate release tablet Indications: Malignant neoplasm of lower third of esophagus (HCC) Take 1 tablet by mouth every 6 hours as needed for pain for up to 7 days. 28 tablet 03/09/2025 03/16/2025 Active Start: 02-08-2025 End: 02-15-2025 take 10 mL by mouth every six hours as needed for pain oxyCODONE (ROXICODONE) 5 mg/5 mL oral solution Indications: Malignant neoplasm of lower third of esophagus (HCC) Take 10 mL by mouth every 6 hours as needed for pain for up to 7 days. 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, 157.5, cm, 06/26/23 13:25:00 EST, Height, 93.2, kg, 06/26/23 13:25:00 EST, Dosing Weight Start Date: 06/26/23 Stop Date: 07/03/23 Status: Ordered phenazopyridine hydrochloride 100 mg oral tablet (1 source) Start: 06-26-2023 End: 06-29-2023 Pyridium 100 mg oral tablet Dose : 100 mg = 1 tab(s), Oral, TID, X 3 day(s), # 9 tab(s), 0 Refill(s), 06/29/23 1:30:00 PM EST, Pharmacy: [id number], 157.5, cm, 06/26/23 13:25:00 EST, Height, kg, 06/26/23 13:25:00 EST, Dosing Weight Start Date: 06/26/23 Stop Date: 06/29/23 Status: Ordered Pravastatin (20 sources) HMG-CoA Reductase Inhibitor take 1 tablet by mouth once daily at bedtime pravastatin sodium (PRAVASTATIN ORAL) Take 1 tablet by mouth daily at bedtime. Suspended take 1 tablet by dylon th once daily at bedtime pravastatin sodium (PRAVASTATIN ORAL) Ta ke 1 tablet by mouth daily at bedtime. Active take 1 tablet by dylon th once daily at bedtime pravastatin sodium (PRAVASTATIN ORAL) Ta ke 1 tablet by mouth daily at bedtime. 0 Active sacubitril 24 mg / valsartan 26 mg oral tablet (20 sources) Angiotensin 2 Receptor Issa Start: 10-20-2024 ENTRESTO 24-26 mg tablet 10/20/2024 Active Start: 10-20-2024 take 1 tablet by dylon th twice daily ENTRESTO 24-26 mg tablet Dose = 1 tab(s), Oral, BID, # 60 tab(s), 0 Refill(s), Pharmacy: [id number], 165.1, cm, 10/18/24 9:54:00 EDT, Height, kg, 10/18/24 9:54:00 EDT, Dosing Weight 10/20/2024 Active Thiamine (15 sources) Start: 02-06-2025 take 1 capsule by mouth once daily thiamine HCl, vitamin B1, 100 mg cap Take 1 capsule by mouth once daily. 14 capsule 02/06/2025 Active 7 actuat umeclidinium 0.0625 mg/actuat / vilanterol 0.025 mg/actuat dry powder inhaler (20 sources) Anticholinergic , beta2-Adrenergi c Agonist Start: 01-29-2024 Umeclidinium-Hilda nterol [Umeclidinium 62.5 Mcg-Vilanterol 25 Mcg/Actuation Powdr For Inhalation] (Umeclidinium 62.5 Mcg-Vilanterol 25 Mcg/Actuation Powdr ) 62.5-25 mcg/actuation blister with device Active 1 NMA INHALATION DAILY January 29, 2024 12:00am Start: 01-25-2024 take 1 puff(s) by in halation once daily ANORO ELLIPTA 62.5-25 mcg/actuation inhaler Inhale 1 puff as instructed once daily. 01/25/2024 Active Completed/Discontinued Medications Medication Drug Class(es) Dates Sig (Normalized) Sig (Original) acetaminophen 325 mg / HYDROcodone bitartrate 7.5 mg oral tablet (20 sources) Opioid Agonist Start: 10-17-2024 take 1 tablet by mouth every six hours as needed HYDROcodone-Aceta minophen (NORCO) 7.5-325 mg per tablet Take 1 tablet by mouth every 6 hours as needed. 10/17/2024 Suspended Start: 06-21-2023 End: 01-29-2024 Hydrocodone-Acetaminophen 5- 325 mg tablet Discontinued 1 {tbl} PO EVERY 6 HOURS NEEDED as needed for Pain 12 3 0 June 21, 2023 January 29, 2024 11:13am Calculus of ureter Calculus of ureter Start: 06-21-2023 take 1 tablet by dylon th every six hours as needed Hydrocodone-Acetaminophen Active 1 TABLE T PO EVERY 6 HOURS NEEDED 12 3 June 21, 2023 acetaminophen 325 mg / oxyCODONE hydrochloride 5 mg oral tablet (20 sources) Opioid Agonist Start: 03-26-2022 End: 04-15-2022 Oxycodone-Acetaminophen (Percocet) 5-325 mg tablet Discontinued 1 {tbl} PO Q4H as needed for pain 20 4 0 March 26, 2022 April 15, 2022 9:11am Calculus of left kidney Calculus of kidney Start: 03-27-2021 End: 04-15-2022 Oxycodone-Acetaminophen (Per cocet) 5-325 mg tablet Discontinued 1 {tbl} PO EVERY 6 HOURS as needed for pain (scale score 7-10) 20 5 0 March 27, 2021 April 15, 2022 9:11am Other acute postprocedural pain Other acute postprocedural pain 20 tabs (twenty) Start: 09-27-2020 End: 10-03-2020 Oxycodone-Acetaminophen 1 TA BLET tablet Discontinued 1 {tbl} PO EVERY 6 HOURS NEEDED as needed for Pain 12 3 0 September 30, 2020 October 02, 2020 12:00am October 03, 2020 12:03am Diverticulitis Start: 09-27-2020 End: 10-03-2020 take 1 tablet by mouth every six hours as needed Oxycodone-Acetaminophen Discontinued 1 TABLET PO EVERY 6 HOURS NEEDED 12 3 September 30, 2020 October 03, 2020 12:03am [id number] 200 actuat albuterol 0.09 mg/actuat metered dose inhaler (20 sources) beta2-Adrenergic Agonist Start: 06-26-2022 End: 01-05-2025 Albuterol Sulfate 90 mcg/actuation HFA aerosol inhaler Discontinued 2 NMA INHALATION Q4H as needed for shortness of breath or wheezing June 26, 2022 1:00am January 05, 2025 5:36pm Start: 06-26-2022 take 1 puff(s) by in halation every four hours Albuterol Sulfate Active 2 PUFF INHALATION Q4H June 26, 2022 1:00am ALBUTEROL INHALA TION Inhale as instructed as needed. Suspended ALBUTEROL INHALA TION Inhale as instructed as needed. Active ALBUTEROL INHALA TION Inhale as instructed. Active apixaban 2.5 mg oral tablet (2 sources) Factor Xa Inhibitor Start: 03-08-2025 End: 03-28-2025 take 1 tablet by mouth twice daily in the morning apixaban (ELIQUIS) 2.5 mg tab(s) Take 1 tablet by mouth two times a day for 20 days. Patient should start on March 08, 2025. 40 tablet 03/07/2025 9:44 AM EDT 03/08/2025 03/28/2025 Suspended smoking cessation 12 hr buPROPion hydrochloride 150 mg extended release oral tablet (19 sources) Aminoketone Start: 04-11-2022 End: 06-18-2023 take 1 tablet by mouth twice daily, then take 1 tablet by mouth every twelve hours Bupropion Hcl (Smoking Deter) 150 mg tablet extended release 12 hr Discontinued 150 mg PO TWICE A DAY April 11, 2022 12:00am June 18, 2023 4:12pm calcium carbonate 500 mg chewable tablet (20 sources) Start: 02-03-2025 take 750 mg by mouth every eight hours as needed calcium carbonate (TUMS) 500 mg chew Take 1 1/2 tablet by mouth three times a day as needed. 90 tablet 2 02/03/2025 Suspended cefadroxil 500 mg oral capsule (20 sources) Cephalosporin Antibacterial Start: 03-27-2021 End: 04-15-2022 take 1 capsule by mouth twice daily Cefadroxil 500 mg capsule Discontinued 500 mg PO TWICE A DAY 10 March 27, 2021 12:00am April 15, 2022 9:10am clopidogrel 75 mg oral tablet (20 sources) P2Y12 Platelet Inhibitor Start: 10-20-2024 take 1 tablet by mouth once daily PLAVIX 75 mg tablet Take 75 mg by mouth once daily. 10/20/2024 Suspended 1 ml dexamethasone phosphate 10 mg/ml injection (5 sources) Corticosteroid Start: 01-30-2025 End: 01-30-2025 10 mg, INTRAVENOUS, ONCE, 1 dose, On Thu01/30/25 at 1100, Administer IV doses up to 10 mg over 5 minutes. Administer doses > 10 mg over 15 to 30 minutes. Start: 12-29-2024 End: 12-29-2024 10 mg, INTRAVENOUS, ONCE, 1 dose, On Thu12/29/24 at 0930, Administer over 5 minutes. Start: 12-13-2024 End: 12-13-2024 10 mg, INTRAVENOUS, ONCE, 1 dose, On Thu12/13/24 at 0900, Administer over 5 minutes. Start: 11-22-2024 End: 11-22-2024 10 mg, INTRAVENOUS, ONCE, 1 dose, On Thu11/22/24 at 0800, Administer over 5 minutes. Start: 11-07-2024 End: 11-07-2024 10 mg, INTRAVENOUS, ONCE, 1 dose, On Thu11/07/24 at 0830, Administer over 5 minutes. DOCEtaxel 87.5 mg in NaCl 0. 9% 283.75 mL (TAXOTERE) (1 source) Start: 01-30-2025 End: 01-30-2025 87.5 mg (50 mg/m2 1.75 m2 Treatment Plan BSA from Recorded weight), INTRAVENOUS, Administer over 1 Hours, ONCE, 1 dose, On Thu01/30/25 at 1130, NON-PVC container. Infuse via Non-DEHP set. exp 1100 01/31/25 (room temp) Hazardous Chemotherapy Drug: Use appropriate PPE. Antineoplastic Irritant. DOCEtaxel 98.5 mg in NaCl 0. 9% 284.85 mL (TAXOTERE) (4 sources) Start: 12-29-2024 End: 12-29-2024 98.5 mg (50 mg/m2 1.97 m2 Treatment Plan BSA from Recorded weight), INTRAVENOUS, Administer over 1 Hours, ONCE, 1 dose, On [place]anda 12/29/24 at 1000, NON-PVC container. Infuse via Non-DEHP set. exp 1300 01/02/25 (refrigerated) Hazardous Chemotherapy Drug: Use appropriate PPE. Antineoplastic Irritant. Start: 12-13-2024 End: 12-13-2024 98.5 mg (50 mg/m2 1.97 m2 Tr eatment Plan BSA from Recorded weight), INTRAVENOUS, Administer over 1 Hours, ONCE, 1 dose, On Thu12/13/24 at 0930, Approx Total Volume - Expires: 12/14/24 @ 0850 Hazardous Chemotherapy Drug: Use appropriate PPE. Antineoplastic Irritant. Start: 11-22-2024 End: 11-22-2024 98.5 mg (50 mg/m2 1.97 m2 Tr eatment Plan BSA from Recorded weight), INTRAVENOUS, Administer over 1 Hours, ONCE, 1 dose, On Thu11/22/24 at 0830, Approx Total Volume - Expires: 11/26/24 @ 1330 (refrigerated) Hazardous Chemotherapy Drug: Use appropriate PPE. Antineoplastic Irritant. Start: 11-07-2024 End: 11-07-2024 98.5 mg (50 mg/m2 1.97 m2 Tr eatment Plan BSA from Recorded weight), INTRAVENOUS, Administer over 1 Hours, ONCE, 1 dose, On 11/07/24 at 0900, NON-PVC container. Infuse via Non-DEHP set. exp 0900 11/09/24 (room temp) Hazardous Chemotherapy Drug: Use appropriate PPE. Antineoplastic Irritant. empagliflozin 10 mg oral tablet (20 sources) Sodium-Glucose Cotransporter 2 Inhibitor Start: 10-20-2024 End: 12-28-2024 take 1 tablet by mouth once daily JARDIANCE 10 mg tablet Take 10 mg by mouth once daily. 10/20/2024 12/28/2024 Discontinued (Course of therapy completed) ergocalciferol 1.25 mg oral capsule (20 sources) Provitamin D2 Compound Start: 12-28-2024 End: 03-14-2025 take 1 capsule by mouth every week ergocalciferol 50,000 unit capsule (VITAMIN D2, DRISDOL) Take 1 capsule by mouth one time a week. 8 capsule 12/28/2024 03/14/2025 Discontinued (Erroneous entry) famotidine 40 mg oral tablet (4 sources) Histamine-2 Receptor Antagonist Start: 01-29-2024 End: 06-06-2024 take 1 tablet by mouth twice daily Famotidine 40 mg tablet Discontinued 40 mg PO TWICE A DAY January 29, 2024 12:00am June 06, 2024 9:57am fluorouracil (ADRUCIL) 4,500 mg in NaCl 0.9% 102 mL in empty bag (1 source) Start: 01-30-2025 End: 01-30-2025 4,500 mg (rounded from 4,550 mg = 2,600 mg/m2 1.75 m2 Treatment Plan BSA from Recorded weight), INTRAVENOUS, at 4.3 mL/hr, Administer over 24 Hours, ONCE, 1 dose, On 01/30/25 at 1430, exp 1100 02/09/25 (refrigerated) Hazardous Chemotherapy Drug: Use appropriate PPE. Protect from Light. fluorouracil (ADRUCIL) 5,000 mg in NaCl 0.9% 102 mL in empty bag (3 sources) Start: 12-29-2024 End: 12-29-2024 5,000 mg (rounded from 5,122 mg = 2,600 mg/m2 1.97 m2 Treatment Plan BSA from Recorded weight), INTRAVENOUS, at 4.3 mL/hr, Administer over 24 Hours, ONCE, 1 dose, On [place]anda 12/29/24 at 1300, exp 1300 01/07/25 (refrigerated) Hazardous Chemotherapy Drug: Use appropriate PPE. Protect from Light. Start: 12-13-2024 End: 12-13-2024 5,000 mg (rounded from 5,122 mg = 2,600 mg/m2 1.97 m2 Treatment Plan BSA from Recorded weight), INTRAVENOUS, at 4.3 mL/hr, Administer over 24 Hours, ONCE, 1 dose, On Thu12/13/24 at 1230, Expires: 12/17/24 @ 0930 Hazardous Chemotherapy Drug: Use appropriate PPE. Protect from Light. Start: 11-22-2024 End: 11-22-2024 5,000 mg (rounded from 5,122 mg = 2,600 mg/m2 1.97 m2 Treatment Plan BSA from Recorded weight), INTRAVENOUS, at 4.3 mL/hr, Administer over 24 Hours, ONCE, 1 dose, On Thu11/22/24 at 1130, exp 1430 11/28/24 (refrigerated) Hazardous Chemotherapy Drug: Use appropriate PPE. Protect from Light. fluorouracil (ADRUCIL) 5,000 mg in NaCl 0.9% 104 mL in empty bag (1 source) Start: 11-07-2024 End: 11-07-2024 5,000 mg (rounded from 5,122 mg = 2,600 mg/m2 1.97 m2 Treatment Plan BSA from Recorded weight), INTRAVENOUS, at 4.3 mL/hr, Administer over 24 Hours, ONCE, 1 dose, On Thu11/07/24 at 1200, exp 0900 11/17/24 (refrigerated) Hazardous Chemotherapy Drug: Use appropriate PPE. Protect from Light. hydrOXYzine hydrochloride 50 mg oral tablet (4 sources) Antihistamine Start: 01-29-2024 End: 06-06-2024 take 1 tablet by mouth every six hours as needed Hydroxyzine Hcl 50 mg tablet Discontinued 50 mg PO EVERY 6 HOURS NEEDED as needed for itch January 29, 2024 12:00am June 06, 2024 9:57am hyoscyamine sulfate 0.12 mg / methenamine 81.6 mg / methylene blue 10.8 mg / sodium phosphate, monobasic 40.8 mg oral tablet (4 sources) Oxidation-Reduction Agent Start: 04-07-2022 take 1 tablet by mouth twice daily Urogesic-Blue 81.6 MG Oral Tablet Take 1 tablet twice daily Quantity: 60 Refills: 0 Ordered: 07-Apr-2022 Trino Maradiaga MD, MPH, [place] Start : 07-Apr-2022 Active iron sucrose 300 mg in NaCl 0.9% 250 mL (VENOFER) (3 sources) Start: 01-10-2025 End: 01-10-2025 300 mg, INTRAVENOUS, at 166.67 mL/hr, Administer over 90 Minutes, ONCE, 1 dose, On Thu01/10/25 at 0930, Refrigerate Start: 01-06-2025 End: 01-06-2025 300 mg, INTRAVENOUS, at 166. 67 mL/hr, Administer over 90 Minutes, ONCE, 1 dose, On Thu01/06/25 at 0930, EXP 01/09/25 () Refrigerate Start: 01-03-2025 End: 01-03-2025 300 mg, INTRAVENOUS, at 166. 67 mL/hr, Administer over 90 Minutes, ONCE, 1 dose, On Thu01/03/25 at 1400 ketorolac tromethamine 10 mg oral tablet (9 sources) Nonsteroidal Anti-inflammatory Drug, Cyclooxygenase Inhibitor Start: 06-21-2023 End: 01-29-2024 take 1 tablet by mouth every eight hours as needed for pain Ketorolac 10 mg tablet Discontinued 10 mg PO Q8H as needed for pain 15 5 0 June 21, 2023 1:51pm January 29, 2024 11:13am Leucovorin (5 sources) Folate Analog Start: 01-30-2025 End: 01-30-2025 350 mg (200 mg/m2 1.75 m2 Treatment Plan BSA from Recorded weight), INTRAVENOUS, Administer over 2 Hours, ONCE, 1 dose, On Thu01/30/25 at 1230, PROTECT FROM LIGHT [place] concurrently with oxaliplatin. exp 1100 01/31/25 (room temp) REFRIGERATE Start: 12-29-2024 End: 12-29-2024 394 mg (200 mg/m2 1.97 m2 Tr eatment Plan BSA from Recorded weight), INTRAVENOUS, Administer over 2 Hours, ONCE, 1 dose, On Thu12/29/24 at 1100, PROTECT FROM LIGHT exp 1300 01/01/25 (refrigerated) [place] concurrently with oxaliplatin. REFRIGERATE Start: 12-13-2024 End: 12-13-2024 394 mg (200 mg/m2 1.97 m2 Tr eatment Plan BSA from Recorded weight), INTRAVENOUS, Administer over 2 Hours, ONCE, 1 dose, On Thu12/13/24 at 1030, Approx Total Volume - Expires: 12/14/24 @ 1455 PROTECT FROM LIGHT [place] concurrently with oxaliplatin. REFRIGERATE Start: 11-22-2024 End: 11-22-2024 394 mg (200 mg/m2 1.97 m2 Tr eatment Plan BSA from Recorded weight), INTRAVENOUS, Administer over 2 Hours, ONCE, 1 dose, On Thu11/22/24 at 0930, Approx Total Volume - Expires: 11/25/24 @ (refrigerated) PROTECT FROM LIGHT [place] concurrently with oxaliplatin. REFRIGERATE Start: 11-07-2024 End: 11-07-2024 394 mg (200 mg/m2 1.97 m2 Tr eatment Plan BSA from Recorded weight), INTRAVENOUS, Administer over 2 Hours, ONCE, 1 dose, On Thu11/07/24 at 1000, PROTECT FROM LIGHT exp 0900 11/08/24 (room temp) [place] concurrently with oxaliplatin. REFRIGERATE levocetirizine dihydrochloride 5 mg oral tablet (4 sources) Histamine-1 Receptor Antagonist Start: 01-29-2024 End: 06-06-2024 take 1 tablet by mouth once daily Levocetirizine 5 mg tablet Discontinued 5 mg PO DAILY January 29, 2024 12:00am June 06, 2024 9:58am loperamide hydrochloride 2 mg oral capsule (20 sources) Opioid Agonist Start: 02-03-2025 take 1 capsule by mouth every twelve hours loperamide (IMODIUM) 2 mg cap(s) Take 1 capsule by mouth every 12 hours. 60 capsule 1 02/03/2025 10:59 AM EDT 02/03/2025 Suspended 100 ml magnesium sulfate 40 mg/ml injection (3 sources) Start: 02-20-2025 End: 02-20-2025 take 2 g intravenously every hour 4 g, INTRAVENOUS, at 25-50 mL/hr, Administer over 2-4 Hours, ONCE, 1 dose, On Thu02/20/25 at 1000, Total 6 gm today Magnesium sulfate iv bolus will be infused at a rate of 1 gram/hr The following nursing units may administer 2 g dose over 1 hour if necessary: ICUs/PACU/ED, Adult Hematology/Oncolog y, Labor and Delivery, Cardiac Stepdown, Headache Clinic If necessary, a magnesium sulfate bolus may be administered greater than 2 g/hr for the following indications: Adult and Pediatric Asthma Exacerbations, [place] Pointes, Pediatric BMT and Hematology/Oncolog y, Eclampsia or Preeclampsia Start: 02-08-2025 End: 02-08-2025 take 2 g intravenously every hour 2 g, INTRAVENOUS, at 25-50 mL/hr, Administer over 1-2 Hours, ONCE, 1 dose, On Thu02/08/25 at 1030, Magnesium sulfate iv bolus will be infused at a rate of 1 gram/hr The following nursing units may administer 2 g dose over 1 hour if necessary: ICUs/PACU/ED, Adult Hematology/Oncology, Labor and Delivery, Cardiac Stepdown, Headache Clinic If necessary, a magnesium sulfate bolus may be administered greater than 2 g/hr for the following indications: Adult and Pediatric Asthma Exacerbations, [place] Pointes, Pediatric BMT and Hematology/Oncology, Eclampsia or Preeclampsia Start: 02-08-2025 End: 02-08-2025 take 2 g intravenously every hour 4 g, INTRAVENOUS, at 25-50 mL/hr, Administer over 2-4 Hours, ONCE, 1 dose, On Thu02/08/25 at 1030, Total 6 gm today Magnesium sulfate iv bolus will be infused at a rate of 1 gram/hr The following nursing units may administer 2 g dose over 1 hour if necessary: ICUs/PACU/ED, Adult Hematology/Oncology, Labor and Delivery, Cardiac Stepdown, Headache Clinic If necessary, a magnesium sulfate bolus may be administered greater than 2 g/hr for the following indications: Adult and Pediatric Asthma Exacerbations, [place] Point[place], Pediatric BMT and Hematology/Oncology, Eclampsia or Preeclampsia meloxicam 7.5 mg oral tablet (1 source) Nonsteroidal Anti-inflammatory Drug End: 02-19-2024 take 1 tablet by mouth once daily meloxicam (MOBIC) 7.5 mg tablet Take 7.5 mg by mouth once daily. 0 02/19/2024 Discontinued (Other) methylPREDNISolone acetate 40 mg/ml injectable suspension (2 sources) Corticosteroid Start: 07-04-2020 End: 07-04-2020 Depo-Medrol (methylprednisol one acetate) 40 mg/mL suspension for injection Discontinued 40 MG INTRAARTIC ONCE 1 July 04, 2020 11:18am July 04, 2020 5:33pm omeprazole 20 mg delayed release oral tablet (20 sources) Proton Pump Inhibitor Start: 02-28-2016 End: 02-19-2024 take 1 tablet by mouth once daily Omeprazole Magnesium 20 mg tablet Take 1 tablet by mouth once daily. 30 tablet 12 02/28/2016 02/19/2024 Discontinued (Other) Start: 08-17-2013 End: 01-05-2025 take 1 capsule by mouth once daily Omeprazole 20 MG capsule Discontinued 20 mg PO DAILY November 25, 2013 12:00am January 05, 2025 5:24pm Start: 08-17-2013 take 1 tablet by dylon th once daily PRILOSEC 20 MG CPDR One tablet by mouth daily OMEPRAZOLE [id number] Coni Justin PA-C ondansetron 8 mg oral tablet (20 sources) Serotonin-3 Receptor Antagonist Start: 12-27-2024 take 1 tablet by mouth every eight hours as needed ondansetron (ZOFRAN) 8 mg tablet Take 1 tablet by mouth every 8 hours as needed for nausea/vomiting. 30 tablet 1 12/27/2024 Suspended Start: 03-26-2022 End: 04-15-2022 take 1 tablet by mouth every eight hours as needed for nausea and vomiting Ondansetron 4 mg tablet,disintegrating Discontinued 4 mg PO Q8H as needed for nausea and vomiting 7 0 March 26, 2022 12:00am April 15, 2022 9:11am oxaliplatin (5 sources) [place] Start: 01-30-2025 End: 01-30-2025 148.75 mg (85 mg/m2 1.75 m2 Treatment Plan BSA from Recorded weight), INTRAVENOUS, Administer over 2 Hours, ONCE, 1 dose, On 01/30/25 at 1230, Administer concurrently with leucovorin. exp 1100 01/31/25 (room temp) Hazardous Chemotherapy Drug: Use appropriate PPE. Antineoplastic Irritant with Vesicant Potential. Flush line with D5W before and after administration. Start: 12-29-2024 End: 12-29-2024 167.45 mg (85 mg/m2 1.97 m2 Treatment Plan BSA from Recorded weight), INTRAVENOUS, Administer over 2 Hours, ONCE, 1 dose, On [place]anda 12/29/24 at 1100, Administer concurrently with leucovorin. exp 1300 01/07/25 (refrigerated) Hazardous Chemotherapy Drug: Use appropriate PPE. Antineoplastic Irritant with Vesicant Potential. Flush line with D5W before and after administration. Start: 12-13-2024 End: 12-13-2024 167.45 mg (85 mg/m2 1.97 m2 Treatment Plan BSA from Recorded weight), INTRAVENOUS, Administer over 2 Hours, ONCE, 1 dose, On Thu12/13/24 at 1030, Administer concurrently with leucovorin. exp 142912/19/24 (refrigerated) Hazardous Chemotherapy Drug: Use appropriate PPE. Antineoplastic Irritant with Vesicant Potential. Flush line with D5W before and after administration. Start: 11-22-2024 End: 11-22-2024 167.45 mg (85 mg/m2 1.97 m2 Treatment Plan BSA from Recorded weight), INTRAVENOUS, Administer over 2 Hours, ONCE, 1 dose, On Thu11/22/24 at 0930, Administer concurrently with leucovorin. exp 142911/28/24 (refrigerated) Hazardous Chemotherapy Drug: Use appropriate PPE. Antineoplastic Irritant with Vesicant Potential. Flush line with D5W before and after administration. Start: 11-07-2024 End: 11-07-2024 167.45 mg (85 mg/m2 1.97 m2 Treatment Plan BSA from Recorded weight), INTRAVENOUS, Administer over 2 Hours, ONCE, 1 dose, On Thu11/07/24 at 1000, Administer concurrently with leucovorin. exp 89911/11/24 (refrigerated) Hazardous Chemotherapy Drug: Use appropriate PPE. Antineoplastic Irritant with Vesicant Potential. Flush line with D5W before and after administration. 5 ml palonosetron 0.05 mg/ml injection (5 sources) Serotonin-3 Receptor Antagonist Start: 01-30-2025 End: 01-30-2025 0.25 mg, INTRAVENOUS, ONCE, 1 dose, On Thu01/30/25 at 1100, Flush IV line with NS prior to and following administration. Start: 12-29-2024 End: 12-29-2024 0.25 mg, INTRAVENOUS, ONCE, 1 dose, On Thu12/29/24 at 0930, Flush IV line with NS prior to and following administration. Start: 12-13-2024 End: 12-13-2024 0.25 mg, INTRAVENOUS, ONCE, 1 dose, On Thu12/13/24 at 0900, Flush IV line with NS prior to and following administration. Start: 11-22-2024 End: 11-22-2024 0.25 mg, INTRAVENOUS, ONCE, 1 dose, On Thu11/22/24 at 0800, Flush IV line with NS prior to and following administration. Start: 11-07-2024 End: 11-07-2024 0.25 mg, INTRAVENOUS, ONCE, 1 dose, On Thu11/07/24 at 0830, Flush IV line with NS prior to and following administration. pantoprazole 40 mg delayed release oral tablet (20 sources) Proton Pump Inhibitor Start: 02-03-2025 take 1 tablet by mouth once daily in the morning pantoprazole DR (PROTONIX) 40 mg tablet Take 1 tablet by mouth daily at 6 am. 90 tablet 1 02/03/2025 10:59 AM EDT 02/03/2025 Suspended Start: 10-20-2024 End: 12-28-2024 take 1 tablet by mouth once daily PROTONIX 40 mg tablet Take 40 mg by mouth once daily. 10/20/2024 12/28/2024 Discontinued (Course of therapy completed) 0.6 ml pegfilgrastim-jmdb 10 mg/ml prefilled syringe (1 source) Leukocyte Growth Factor Start: 12-14-2024 End: 12-14-2024 6 mg, SUBCUTANEOUS, ONCE, 1 dose, On Thu12/14/24 at 1400, Refrigerate - Protect From Light - Do Not Shake - Allow prefilled syringe to reach room temperature for at least 30 minutes prior to injection. Start: 12-14-2024 End: 12-14-2024 6 mg, SUBCUTANEOUS, ONCE, 1 dose, On Thu12/14/24 at 1400, Refrigerate - Protect From Light - Do Not Shake - Allow prefilled syringe to reach room temperature for at least 30 minutes prior to injection. potassium chloride 20 meq powder for oral solution (15 sources) Start: 11-22-2024 End: 02-20-2025 take 20 mEq by mouth once daily potassium chloride (KLOR-CON) 20 mEq packet Indications: Malignant neoplasm of lower third of esophagus (HCC) , Hypokalemia Take 20 mEq by mouth once daily. 30 packet 2 11/22/2024 12/28/2024 Discontinued (Course of therapy completed) pramipexole dihydrochloride 0.5 mg oral tablet (20 sources) Nonergot Dopamine Agonist Start: 04-11-2022 End: 06-18-2023 take 1 tablet by mouth at bedtime Pramipexole 0.5 mg tablet Discontinued 0.5 mg PO AT BEDTIME April 11, 2022 4:49pm June 18, 2023 4:12pm Start: 11-18-2018 End: 04-11-2022 take 2 tablets by mouth at bedtime Pramipexole 0.5 MG tablet Discontinued 1 mg PO AT BEDTIME November 18, 2018 12:00am April 11, 2022 4:49pm Start: 11-18-2018 End: 04-11-2022 take 1 mg by mouth at bedtime Pramipexole Discontinued 1 MG PO AT BEDTIME November 18, 2018 12:00am April 11, 2022 4:49pm predniSONE 10 mg oral tablet (4 sources) Start: 01-29-2024 End: 06-06-2024 Prednisone 10 mg tablet Discontinued mg PO January 29, 2024 12:00am June 06, 2024 9:58am prochlorperazine 5 mg/ml injectable solution (20 sources) Phenothiazine Start: 02-08-2025 End: 02-08-2025 10 mg, INTRAVENOUS, ONCE, 1 dose, On Thu02/08/25 at 1000, Protect From Light Start: 01-10-2025 take 1 tablet by dylon th every six hours as needed for nausea prochlorperazine (COMPAZINE) 10 mg tablet Indications: Malignant neoplasm of lower third of esophagus (HCC) Take 1 tablet by mouth every 6 hours as needed for nausea/vomiting. 30 tablet 2 01/10/2025 Suspended Start: 01-10-2025 End: 01-10-2025 10 mg, INTRAVENOUS, ONCE, 1 dose, On Thu01/10/25 at 0930, Protect From Light Start: 10-28-2024 End: 01-10-2025 take 2 tablets by mouth every six hours as needed prochlorperazine (COMPAZINE) 5 mg tablet Indications: Malignant neoplasm of lower third of esophagus (HCC) Take 2 tablets by mouth every 6 hours as needed. 30 tablet 2 10/28/2024 01/10/2025 Discontinued 1000 ml sodium chloride 9 mg/ml injection (7 sources) Start: 02-20-2025 End: 02-20-2025 1,000 mL, INTRAVENOUS, at 99 9 mL/hr, Administer over 1 Hours, ONCE, 1 dose, On Thu02/20/25 at 1000 Start: 02-17-2025 End: 02-17-2025 1,000 mL, INTRAVENOUS, at 99 9 mL/hr, Administer over 1 Hours, ONCE, 1 dose, On Thu02/17/25 at 1130 Start: 02-14-2025 End: 02-14-2025 1,000 mL, INTRAVENOUS, at 99 9 mL/hr, Administer over 1 Hours, ONCE, 1 dose, On Thu02/14/25 at 1330 Start: 02-10-2025 End: 02-10-2025 1,000 mL, INTRAVENOUS, at 99 9 mL/hr, Administer over 1 Hours, ONCE, 1 dose, On Thu02/10/25 at 1100 Start: 02-08-2025 End: 02-08-2025 1,000 mL, INTRAVENOUS, at 99 9 mL/hr, Administer over 1 Hours, ONCE, 1 dose, On Thu02/08/25 at 1000 Start: 01-10-2025 End: 01-10-2025 1,000 mL, INTRAVENOUS, at 99 9 mL/hr, Administer over 1 Hours, ONCE, 1 dose, On Thu01/10/25 at 0930 Start: 01-06-2025 End: 01-06-2025 1,000 mL, INTRAVENOUS, at 99 9 mL/hr, Administer over 1 Hours, ONCE, 1 dose, On Thu01/06/25 at 0930 sucralfate 1000 mg oral tablet (20 sources) Aluminum Complex Start: 02-03-2025 take 1 tablet by mouth four times daily sucralfate (CARAFATE) 1 gram tablet Take 1 tablet by mouth four times daily. 360 tablet 1 02/03/2025 10:59 AM EDT 02/03/2025 Suspended Start: 01-05-2025 take 1 mL by mouth f our times daily Sucralfate 100 mg/mL suspension Active 10 mL PO 4 TIMES DAILY January 05, 2025 12:00am Start: 12-27-2024 End: 12-28-2024 take 10 mL by mouth four times daily sucralfate (CARAFATE) 100 mg/mL suspension Take 10 mL by mouth four times daily. 500 mL 3 12/28/2024 Suspended tamsulosin hydrochloride 0.4 mg oral capsule (15 sources) alpha-Adrenergic Issa Start: 06-21-2023 End: 06-06-2024 take 1 capsule by mouth once daily Tamsulosin (Flomax) 0.4 mg capsule Discontinued 0.4 mg PO DAILY 10 June 21, 2023 1:00am June 06, 2024 9:58am Start: 04-07-2022 take 1 capsule by [facility] at bedtime Tamsulosin HCl - 0.4 MG Oral Capsule TAKE 1 CAPSULE Bedtime Quantity: 30 Refills: 0 Ordered: 07-Apr-2022 Trino Maradiaga MD, MPH, [place] Start : 07-Apr-2022 Active temazepam 15 mg oral capsule (6 sources) Benzodiazepine Start: 08-17-2013 End: 02-19-2024 RESTORIL 15 MG CAPS every night TEMAZEPAM [id number] Foster Malik MD traMADol hydrochloride 50 mg oral tablet (1 source) Opioid Agonist End: 02-19-2024 take 1 tablet by mouth twice daily traMADol (ULTRAM) 50 mg tablet Take 50 mg by mouth twice daily. 0 02/19/2024 Discontinued (Other) Umeclidinium-Vilanter ol [Umeclidinium 62.5 Mcg-Vilanterol 25 Mcg/Actuation Powdr For Inhalation] (Umeclidinium 62.5 Mcg-Vilanterol 25 Mcg/Actuation Powdr ) 62.5-25 mcg/actuation blister with device (2 sources) Start: 01-29-2024 End: 01-05-2025 Umeclidinium-Vilant jason [Umeclidinium 62.5 Mcg-Vilanterol 25 Mcg/Actuation Powdr For Inhalation] (Umeclidinium 62.5 Mcg-Vilanterol 25 Mcg/Actuation Powdr ) 62.5-25 mcg/actuation blister with device Discontinued 1 NMA INHALATION DAILY January 29, 2024 12:00am January 05, 2025 5:37pm Problems Active Problems Problem Classification Problem Date Documented Da te Episodic/Chronic Abdominal pain (20 sources) Right flank pain; Translations: [Unspecified abdominal pain] Onset: 6 04-05-2022 Episodic Acute and unspecified renal failure (19 sources) Injury of kidney; Translations: [Acute kidney failure, unspecified] 04-05-2022 Episodic Acute myocardial infarction (20 sources) Non-ST elevation (NSTEMI) myocardial infarction; Translations: [Myocardial infarction] Onset: 5 Chronic Aspiration pneumonitis; food/vomitus (2 sources) Pneumonitis due to inhalation of regurgitated food; Translations: [Pneumonitis due to inhalation of food and vomit] Onset: 5 Episodic Cancer of esophagus (20 sources) Malignant tumor of lower third of esophagus; Translations: [Malignant neoplasm of lower third of esophagus] Onset: 5 10-12-2024 Chronic Cardiac dysrhythmias (20 sources) Sinus bradycardia; Translations: [Sick sinus syndrome] Onset: 4 08-09-2013 Chronic Comment on above: Per device report on 10/08/2023; Chronic obstructive pulmonary disease and bronchiectasis (20 sources) Chronic obstructive pulmonary disease, unspecified; Translations: [Chronic obstructive lung disease] Onset: 2 Chronic Complications of surgical procedures or medical care (13 sources) Esophageal anastomotic leak; Translations: [Other postprocedural complications and disorders of digestive system] Onset: 5 03-11-2025 Episodic Conduction disorders (20 sources) Other specified heart block; Translations: [Cardiac pacemaker in situ] Onset: 4 08-09-2013 Chronic Comment on above: [facility] [place] [facility] Deficiency and other anemia (2 sources) Anemia; Translations: [Anemia, unspecified] 12-26-2024 Episodic Diseases of mouth; excluding dental (2 sources) Oral lesion; Translations: [Other lesions of oral mucosa] 01-05-2025 Episodic Diseases of white blood cells (3 sources) Elevated white blood cell count, unspecified; Translations: [Neutropenia] Onset: 2 01-05-2025 Chronic Disorders of lipid metabolism (6 sources) Hyperlipidemia; Translations: [Hyperlipidemia, unspecified] Onset: 4 08-09-2013 Chronic Diverticulosis and diverticulitis (20 sources) Diverticulitis of intestine; Translations: [Diverticulitis of intestine, part unspecified, without perforation or abscess without bleeding] 02-10-2016 Chronic Esophageal disorders (20 sources) Gastroesophageal reflux disease; Translations: [Gastro-esophageal reflux disease without esophagitis] Onset: 5 12-28-2020 Chronic Immunizations and screening for infectious disease (20 sources) Suspected disease caused by 2019-nCoV; Translations: [Suspected COVID-19 virus infection] 05-08-2020 Episodic Nausea and vomiting (19 sources) Nausea and vomiting; Translations: [Nausea with vomiting, unspecified] 04-05-2022 Episodic Nutritional deficiencies (20 sources) Malnutrition (calorie); Translations: [Moderate protein-calorie malnutrition] Onset: 5 11-22-2024 Chronic Osteoarthritis (1 source) Unspecified osteoarthritis, unspecified site; Translations: [Unspecified osteoarthritis, unspecified site] Onset: 2 Chronic Other and unspecified benign neoplasm (20 sources) Benign neoplasm of skin of chest; Translations: [Other benign neoplasm of skin of trunk] 02-28-2021 Episodic Comment on above: 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 Other diseases of kidney and ureters (1 source) Other specified disorders of kidney and ureter; Translations: [Other specified disorders of kidney and ureter] Onset: 2 Chronic Other diseases of kidney and ureters (9 sources) Hydronephrosis; Translations: [Unspecified hydronephrosis] 06-21-2023 Episodic Other ear and sense organ disorders (1 source) Hearing loss; Translations: [Unspecified hearing loss, unspecified ear] Onset: 3 Chronic Other gastrointestinal disorders (2 sources) Dysphagia; Translations: [Dysphagia, unspecified] Episodic Other gastrointestinal disorders (2 sources) Disorder of digestive tract; Translations: [Acquired absence of other specified parts of digestive tract] 03-30-2025 Episodic Other hereditary and degenerative nervous system conditions (20 sources) Restless legs; Translations: [Restless legs syndrome (RLS)] 04-15-2022 Chronic Other hereditary and degenerative nervous system conditions (8 sources) Restless legs syndrome; Translations: [Restless legs syndrome (RLS)] Onset: 4 Chronic Other hereditary and degenerative nervous system conditions (20 sources) Carotid sinus hypersensitivity; Translations: [Carotid sinus syncope] Onset: 4 02-24-2024 Chronic Other hereditary and degenerative nervous system conditions (1 source) Carotid sinus syncope; Translations: [Carotid sinus hypersensitivity] Onset: 4 Chronic Other lower respiratory disease (19 sources) Dyspnea; Translations: [Shortness of breath] Onset: 4 08-09-2013 Episodic Other lower respiratory disease (1 source) Hypoxemia; Translations: [Hypoxemia] Episodic Other lower respiratory disease (1 source) Hypoxemia; Translations: [Hypoxemia] Onset: 5 Episodic Other lower respiratory disease (1 source) Shortness of breath; Translations: [Shortness of breath] Onset: 5 Episodic Other nervous system disorders (20 sources) Acute postoperative pain; Translations: [Other acute postprocedural pain] 03-27-2021 Episodic Other nutritional; endocrine; and metabolic disorders (5 sources) Body mass index (BMI) 34.0-34.9, adult; Translations: [Body mass index (BMI) 34.0-34.9, adult] Onset: 4 08-17-2013 Chronic Other nutritional; endocrine; and metabolic disorders (4 sources) Obesity, unspecified; Translations: [Obesity, unspecified] Onset: 2 06-18-2023 Chronic Other nutritional; endocrine; and metabolic disorders (1 source) Body mass index (BMI) 37.0-37.9, adult; Translations: [Body mass index [BMI] 37.0-37.9, adult] Onset: 2 Chronic Other nutritional; endocrine; and metabolic disorders (9 sources) Obesity; Translations: [Obesity, unspecified] 06-18-2023 Chronic Other nutritional; endocrine; and metabolic disorders (20 sources) Hypomagnesemia; Translations: [Hypomagnesemia] Onset: 5 02-07-2025 Chronic Other nutritional; endocrine; and metabolic disorders (4 sources) Obese class I; Translations: [Obesity, Class I, BMI 30-34.9] Onset: 5 03-17-2025 Chronic Other nutritional; endocrine; and metabolic disorders (1 source) Hypomagnesemia; Translations: [Hypomagnesemia] Onset: 5 Chronic Other screening for suspected conditions (not mental disorders or infectious disease) (6 sources) Electrocardiogram abnormal; Translations: [Abnormal electrocardiogram [ECG] [EKG]] 11-09-2023 Episodic Estrella-; endo-; and myocarditis; cardiomyopathy (except that caused by tuberculosis or sexually transmitted disease) (2 sources) Cardiomyopathy; Translations: [Cardiomyopathy, unspecified] Onset: 5 Chronic Pleurisy; pneumothorax; pulmonary collapse (2 sources) Other pneumothorax; Translations: [Pleural effusion, not elsewhere classified] Onset: 5 Episodic Pneumonia (except that caused by tuberculosis or sexually transmitted disease) (5 sources) Infectious disease of lung; Translations: [Pneumonia, unspecified organism] Onset: 5 03-10-2025 Episodic Residual codes; unclassified (2 sources) Obstructive sleep apnea (adult) (pediatric); Translations: [Obstructive sleep apnea (adult) (pediatric)] Onset: 2 Chronic Residual codes; unclassified (1 source) Obstructive sleep apnea syndrome; Translations: [Obstructive sleep apnea (adult) (pediatric)] 12-28-2024 Chronic Residual codes; unclassified (1 source) Sleep apnea, unspecified; Translations: [Sleep apnea, unspecified] Onset: 5 Chronic Residual codes; unclassified (20 sources) History of surgical procedure on cervical spine; Translations: [Other specified postprocedural states] 01-09-2021 Episodic Comment on above: plate in neck Residual codes; unclassified (2 sources) Acquired absence of other specified parts of digestive tract; Translations: [Acquired absence of other specified parts of digestive tract] Onset: 2 Episodic Residual codes; unclassified (5 sources) History of esophagectomy; Translations: [Other specified postprocedural states] Onset: 5 03-11-2025 Episodic Septicemia (except in labor) (1 source) Sepsis, unspecified organism; Translations: [Sepsis (HCC)] Onset: 5 Episodic Spondylosis; intervertebral disc disorders; other back problems (20 sources) Lumbar spondylosis; Translations: [Spondylosis without myelopathy or radiculopathy, lumbar region] 01-09-2021 Chronic Substance-related disorders (20 sources) History of substance abuse; Translations: [Smoker] Onset: 4 08-09-2013 Chronic Syncope (20 sources) Syncope and collapse; Translations: [Syncope and collapse] Onset: 4 08-09-2013 Episodic Unclassified (1 source) Radiology NM Onset: 5 Unclassified (4 sources) Autogenerated Problem Onset: 5 03-28-2025 Unclassified (1 source) Nutrition Telephone Onset: 5 Unclassified (1 source) Established Patient Onset: 5 Urinary tract infections (20 sources) Acute urinary tract infection; Translations: [Urinary tract infection, site not specified] 04-03-2022 Episodic Past or Other Problems Problem Classification Problem Date Documented Da te Episodic/Chronic Administrative/social admission (2 sources) Patient encounter status; Translations: [Counseling, unspecified] Onset: 11-04-2024 11-04-2024 Episodic Allergic reactions (20 sources) Allergic condition; Translations: [Allergy, unspecified, initial encounter] Onset: 10-17-2024 02-26-2021 Episodic Anal and rectal conditions (20 sources) Anal fistula; Translations: [Anal fistula] Onset: 08-07-2008 08-07-2008 Episodic Calculus of urinary tract (20 sources) Ureteric stone; Translations: [Calculus of ureter] Onset: 04-03-2022 Episodic Cardiac dysrhythmias (20 sources) Sinus bradycardia; Translations: [Bradycardia, unspecified] Onset: 03-30-2024 Episodic Complication of device; implant or graft (20 sources) Dysfunction of cardiac pacemaker lead; Translations: [Other mechanical complication of other cardiac electronic device, initial encounter] Onset: 02-16-2024 02-16-2024 Episodic Conditions associated with dizziness or vertigo (20 sources) Dizziness; Translations: [Vertigo of central origin] Onset: 05-22-2010 08-09-2013 Episodic Deficiency and other anemia (20 sources) Iron deficiency anemia secondary to inadequate dietary iron intake; Translations: [Other iron deficiency anemias] Onset: 12-30-2024 12-30-2024 Episodic Deficiency and other anemia (2 sources) Other iron deficiency anemias; Translations: [Iron deficiency anemia secondary to inadequate dietary iron intake] Onset: 12-30-2024 Episodic Deficiency and other anemia (2 sources) Anemia, unspecified; Translations: [Anemia, unspecified type] Onset: 12-28-2024 Episodic Fluid and electrolyte disorders (3 sources) Hypokalemia; Translations: [Hypokalemia] Onset: 11-22-2024 11-22-2024 Episodic Lymphadenitis (2 sources) Hilar lymphadenopathy ; Translations: [Localized enlarged lymph nodes] Onset: 01-19-2025 01-19-2025 Episodic Malaise and fatigue (4 sources) Asthenia; Translations: [Weakness] Onset: 08-02-2024 01-05-2025 Episodic Nonspecific chest pain (5 sources) Tight chest; Translations: [Other chest pain] Onset: 08-09-2013 08-09-2013 Episodic Other aftercare (1 source) Other assisted (current) drug therapy; Translations: [Other tool machine setup operator (current) drug therapy] Onset: 10-17-2024 Episodic Other diseases of kidney and ureters (3 sources) Hydronephrosis with renal and ureteral calculous obstruction; Translations: [Hydronephrosis with renal and ureteral calculous obstruction] Onset: 03-28-2022 Episodic Other gastrointestinal disorders (20 sources) Diarrhea; Translations: [Diarrhea, unspecified] Onset: 08-07-2005 01-28-2024 Episodic Other gastrointestinal disorders (3 sources) Dysphagia, unspecified; Translations: [Dysphagia, unspecified] Onset: 08-30-2024 Episodic Skin and subcutaneous tissue infections (1 source) Cutaneous abscess, unspecified; Translations: [Cutaneous abscess, unspecified] Onset: 10-15-2024 Episodic Spondylosis; intervertebral disc disorders; other back problems (1 source) Radiculopathy, lumbar region; Translations: [Radiculopathy, lumbar region] Onset: 06-09-2024 Episodic Unclassified (1 source) Patient encounter status 01-10-2025 Results Test Name Value Interpretation Reference Range Facility [facility] 05-24-2025 CNPN [facility] ANES POSTPROC EVALon 025 ANES POSTPROC EVAL [facility] ANES PRE-OPon 05-18-2025 ANES PRE-OP [facility] HISTORY PHYSICALon HISTORY PHYSICAL [facility] Upper GI endoscopyon 025 Upper GI endoscopy [facility] CNPNon 05-17-2025 CNPN [facility] NURSING PROGon 05-17-2025 NURSING PROG [facility] Pacemaker Checkon 05-10-2025 Pacemaker Check [facility] [address] [place] [address] Pacemaker Check Date of Service: 05/10/25 1535 MR#: [id number] Acct: [id number] Name: BILL ESTRADA Rep #: [id number] : 1960 From: Jimean Farnsworth Age/Sex: 64/M [place] [facility] [place] Signed Billing Codes PM Device Codes: 63537 PM Dev Prog Eval, Dual Assessment and Plan Assessment and Plan (1) Sick sinus syndrome: Status: Chronic (2) Presence of cardiac pacemaker: Status: Chronic Comment: [facility] Chamber 05/10/25 1536 Date Jimena Marreroignfelipe Signature: Date (if applicable) CC: Normal [facility] CNPNon 05-05-2025 CNPN [facility] CT ABDOMEN W IVCONon 025 CT ABDOMEN W IVCON Normal [facility] CT CHEST W IVCONon 5 CT CHEST W IVCON Normal [facility] CNCNPATEDon 04-25-2025 CNCNPATED [facility] CNCNPATEDon 04-18-2025 CNCNPATED Normal [facility] CNPNon 04-17-2025 CNPN [facility] CNPNon 04-14-2025 CNPN Normal [facility] CNPNon 04-12-2025 CNPN Normal [facility] CNPNon 04-10-2025 CNPN [facility] ANES POSTPROC EVALon 025 ANES POSTPROC EVAL [facility] ANES PRE-OPon 04-06-2025 ANES PRE-OP [facility] CT ABD/PEL W IVCONon 025 CT ABD/PEL W IVCON * * *Final Report* * * DATE OF EXAM: Apr 06 2025 3:56PM [facility] 0530 - CT ABD/PEL W IVCON / PROCEDURE REASON: Esophageal anastomotic leak * * * * Physician Interpretation * * * * EXAMINATION: CT CHEST WITH IV CONTRAST and CT ABDOMEN AND PELVIS WITH IV CONTRAST CLINICAL HISTORY: Esophageal anastomotic leak demonstrated via EGD and recently treated with endovac. TECHNIQUE: CT of the chest from the thoracic inlet to the upper abdomen was performed following IV contrast. CT of the abdomen and pelvis was performed using standard technique, scanning from just above the dome of the diaphragm to the symphysis pubis. MQ: [id number] Contrast: IV: 100 ml of Omnipaque 350 Oral: 12.5 ml of Omni 240 10-25ml diluted with water CT Radiation dose: Integrated Dose-length product (DLP) for this visit = 663.12 mGy*cm. CT Dose Reduction Employed: Automated exposure control(AEC) and iterative recon COMPARISON: CT chest on 03/23/2024. CT chest abdomen pelvis on 03/16/2025. RESULT: Lung parenchyma, pleura and airways: Small volume residual RIGHT pleural effusion with associated mild diffuse RIGHT pleural thickening. The largest loculation is in the dependent inferior RIGHT pleural space on series 2 image 168 measuring 6.3 x 2.0 cm. There is also a loculated pleural fluid collection along the minor fissure best seen on series 2 image 118 along the course of a prior pigtail pleural drain seen on 03/23/2025. Mild to moderate passive atelectasis of the RIGHT lung. Mediastinum and imaged lower neck: Postsurgical changes of esophagectomy and gastric pull-through. No measurable fluid collection adjacent the proximal esophagus or gastric pull-through aside from a small volume residual loculated RIGHT pleural effusion described above. No pneumomediastinum. Multiple calcified mediastinal lymph nodes suggestive of prior granulomatous disease. RIGHT chest port catheter terminates in the RIGHT atrium. Pacemaker leads terminate in the RIGHT atrium and RIGHT ventricle. Coronary artery calcifications are present. Liver/Biliary: Normal. Pancreas and Spleen: Multiple calcified splenic granulomas. Kidneys and Adrenals: Small simple LEFT renal cyst. GI tract/Mesentery/Peritoneum: Percutaneous jejunostomy is present without CT evidence of complication. Colonic diverticulosis. Retroperitoneum and Lymph Nodes: No lymphadenopathy in the abdomen and pelvis. Vasculature: Moderate aortic and branch vessel atherosclerosis without aneurysm or dissection.. Pelvis: Normal. Bones/Soft Tissues: Degenerative changes of the spine and hips. Localizer images: No significant findings. IMPRESSION: 1. Small volume residual loculated RIGHT pleural fluid collections most pronounced in the dependent RIGHT pleural space and along the minor fissure. 2. No other measurable fluid collection adjacent the proximal esophagus or gastric pull-through. No pneumomediastinum. Steward Dishwasher: PSCB Transcribe Date/Time: Apr 11 2025 10:50A Dictated by : HUMBERTO CRAWLEY MD This examination was interpreted and the report reviewed and electronically signed by: HUMBERTO CRAWLEY MD on Apr 11 2025 11:02AM EST [id number] [facility] CT CHEST W IVCONon CT CHEST W IVCON * * *Final Report* * * DATE OF EXAM: Apr 06 2025 3:56PM [facility] 0539 - CT CHEST W IVCON / PROCEDURE REASON: Esophageal anastomotic leak * * * * Physician Interpretation * * * * EXAMINATION: CT CHEST WITH IV CONTRAST and CT ABDOMEN AND PELVIS WITH IV CONTRAST CLINICAL HISTORY: Esophageal anastomotic leak demonstrated via EGD and recently treated with endovac. TECHNIQUE: CT of the chest from the thoracic inlet to the upper abdomen was performed following IV contrast. CT of the abdomen and pelvis was performed using standard technique, scanning from just above the dome of the diaphragm to the symphysis pubis. MQ: [id number] Contrast: IV: 100 ml of Omnipaque 350 Oral: 12.5 ml of Omni 240 10-25ml diluted with water CT Radiation dose: Integrated Dose-length product (DLP) for this visit = 663.12 mGy*cm. CT Dose Reduction Employed: Automated exposure control(AEC) and iterative recon COMPARISON: CT chest on 03/23/2024. CT chest abdomen pelvis on 03/16/2025. RESULT: Lung parenchyma, pleura and airways: Small volume residual RIGHT pleural effusion with associated mild diffuse RIGHT pleural thickening. The largest loculation is in the dependent inferior RIGHT pleural space on series 2 image 168 measuring 6.3 x 2.0 cm. There is also a loculated pleural fluid collection along the minor fissure best seen on series 2 image 118 along the course of a prior pigtail pleural drain seen on 03/23/2025. Mild to moderate passive atelectasis of the RIGHT lung. Mediastinum and imaged lower neck: Postsurgical changes of esophagectomy and gastric pull-through. No measurable fluid collection adjacent the proximal esophagus or gastric pull-through aside from a small volume residual loculated RIGHT pleural effusion described above. No pneumomediastinum. Multiple calcified mediastinal lymph nodes suggestive of prior granulomatous disease. RIGHT chest port catheter terminates in the RIGHT atrium. Pacemaker leads terminate in the RIGHT atrium and RIGHT ventricle. Coronary artery calcifications are present. Liver/Biliary: Normal. Pancreas and Spleen: Multiple calcified splenic granulomas. Kidneys and Adrenals: Small simple LEFT renal cyst. GI tract/Mesentery/Peritoneum: Percutaneous jejunostomy is present without CT evidence of complication. Colonic diverticulosis. Retroperitoneum and Lymph Nodes: No lymphadenopathy in the abdomen and pelvis. Vasculature: Moderate aortic and branch vessel atherosclerosis without aneurysm or dissection.. Pelvis: Normal. Bones/Soft Tissues: Degenerative changes of the spine and hips. Localizer images: No significant findings. IMPRESSION: 1. Small volume residual loculated RIGHT pleural fluid collections most pronounced in the dependent RIGHT pleural space and along the minor fissure. 2. No other measurable fluid collection adjacent the proximal esophagus or gastric pull-through. No pneumomediastinum. Steward Dishwasher: [facility] CENTERDamir Transcribe Date/Time: Apr 11 2025 10:50A Dictated by : HUMBERTO CRAWLEY MD This examination was interpreted and the report reviewed and electronically signed by: HUMBERTO CRAWLEY MD on Apr 11 2025 11:02AM EST [id number] [facility] HISTORY PHYSICALon HISTORY PHYSICAL HNO ID: [id number] Author: IVÁN OMER APRN.MATTHEW Service: Anesthesiology Author Type: Nurse Practitioner Type: H&P Filed: 04/06/2025 08:58 Note Text: HANDP done 03/10/25 by Patricia Figueredo [facility] Upper GI endoscopyon 025 Upper GI endoscopy Normal [facility] CNPLittle [facility] 03-31-2025 CNPN Normal [facility] 03-30-2025 CNPN Normal [facility] Basic metabolic 2000 panelon 03-29-2025 Anion gap [Moles/Vol] 12 mmol/L Normal 8-15 [facility] Comment on above: Order Comment: Speci men Type: BLOOD SPECIMENOrdering Facility: [facility] Address: [address] [place] [address] Performed By: #### 2 4321-2 ####[facility] LABORATORYCLIA [id number] [place] [address] [place] Calcium [Mass/Vol] 9.1 mg/dL Normal 8.5-10.2 [facility] Comment on above: Order Comment: Speci men Type: BLOOD SPECIMENOrdering Facility: [facility] Address: [address] [place] [address] Performed By: #### 2 4321-2 ####[facility] LABORATORYCLIA [id number] [place] [address] [place] Chloride [Moles/Vol] 98 mmol/L Normal 98-107 [facility] Comment on above: Order Comment: Speci men Type: BLOOD SPECIMENOrdering Facility: [facility] Address: [address] [place] [address] Performed By: #### 2 4321-2 ####[facility] LABORATORYCLIA [id number] [place] [address] [place] CO2 [Moles/Vol] 24 mmol/L Normal 22-30 [facility] Comment on above: Order Comment: Speci men Type: BLOOD SPECIMENOrdering Facility: [facility] Address: [address] [place] [address] Performed By: #### 2 4321-2 ####[facility] LABORATORYCLIA [id number] [place] [address] [place] Creatinine [Mass/Vol] 0.37 mg/dL Low 0.73-1.22 [facility] Comment on above: Order Comment: Speci men Type: BLOOD SPECIMENOrdering Facility: [facility] Address: [address] [place] [address] Performed By: #### 2 4321-2 ####[facility]ENTERIA [id number] [address] [place] eGFRcr SerPlBld CKD-EPI 2020 125 mL/min/1.73m??? Normal >=60 [facility] Comment on above: Order Comment: Speci men Type: BLOOD SPECIMENOrdering Facility: [facility] Address: [address] [place] [address] Result Comment: Lisa mated Glomerular Filtration Rate (eGFR) is calculated using the 2020 CKD-EPI creatinine equation. This equation utilizes serum creatinine, sex, and age as parameters. The creatinine assay has traceable calibration to isotope dilution-mass spectrometry. Refer to KDIGO guidelines for clinical interpretation. In patients with unstable renal function, e.g. those with acute kidney injury, the eGFR may not accurately reflect actual GFR. Performed By: #### 2 4321-2 ####[facility]ENTERIA [id number] [place] [address] [place] Glucose [Mass/Vol] 156 mg/dL High 74-99 [facility] Comment on above: Order Comment: Speci men Type: BLOOD SPECIMENOrdering Facility: [facility] Address: [address] [place] [address] Result Comment: The [place] [employer] (ADA) provides guidance for cutoff values for fasting glucose and random glucose. The ADA defines fasting as no caloric intake for at least 8 hours. Fasting plasma glucose results between 100 to 125 mg/dL indicate increased risk for diabetes (prediabetes).Fasting plasma glucose results greater than or equal to 126 mg/dL meet the criteria for diagnosis of diabetes. In the absence of unequivocal hyperglycemia, results should be confirmed by repeat testing. In a patient with classic symptoms of hyperglycemia or hyperglycemic crisis, random plasma glucose results greater than or equal to 200 mg/dL meet the criteria for diagnosis of diabetes.Reference: Standards of Medical Care in Diabetes 2016, [place] [employer]. Diabetes Care. 2016.39(Suppl 1). Performed By: #### 2 4321-2 ####[facility] LABORATORYCLIA [id number] [place] [address] [place] Potassium [Moles/Vol] 4.5 mmol/L Normal 3.7-5.1 [facility] Comment on above: Order Comment: Speci men Type: BLOOD SPECIMENOrdering Facility: [facility] Address: [address] [place] [address] Performed By: #### 2 4321-2 ####[facility] LABORATORYCLIA [id number] [place] [address] [place] Sodium [Moles/Vol] 134 mmol/L Low 136-144 [facility] Comment on above: Order Comment: Speci men Type: BLOOD SPECIMENOrdering Facility: [facility] Address: [address] [place] [address] Performed By: #### 2 4321-2 ####[facility] LABORATORYCLIA [id number] [place] [address] [place] Urea nitrogen [Mass/Vol] 7 mg/dL Low 9-24 [facility] Comment on above: Order Comment: Speci men Type: BLOOD SPECIMENOrdering Facility: [facility] Address: [address] [place] [address] Performed By: #### 2 4321-2 ####[facility]ORATORYCLIA [id number] [address] [place] CASE MANAGEMon 03-29-2025 CASE MANAGEM Normal [facility] CBC panel Auto (Bld)on 03-29 Erythrocyte distribution width (RBC) [Ratio] 19.0 % High 11.5-15.0 [facility] Comment on above: Order Comment: Speci men Type: BLOOD SPECIMENOrdering Facility: [facility] Address: [address] [place] [address] Performed By: #### 5 8410-2 ####[facility] LABORATORYCLIA [id number] [address] [place] Hematocrit (Bld) [Volume fraction] 28.0 % Low 39.0-51.0 [facility] Comment on above: Order Comment: Speci men Type: BLOOD SPECIMENOrdering Facility: [facility] Address: [address] [place] [address] Performed By: #### 5 8410-2 ####[facility] LABORATORYCLIA [id number] [address] Hemoglobin (Bld) [Mass/Vol] 8.9 g/dL Low 13.0-17.0 [facility] Comment on above: Order Comment: Speci men Type: BLOOD SPECIMENOrdering Facility: [facility] Address: [address] [place] [address] Performed By: #### 5 8410-2 ####[facility] LABORATORYCLIA [id number] [address] MCH (RBC) [Entitic mass] 28.6 pg Normal 26.0-34.0 [facility] Comment on above: Order Comment: Speci men Type: BLOOD SPECIMENOrdering Facility: [facility] Address: [address] [place] [address] Performed By: #### 5 8410-2 ####[facility]ORATORYCLIA [id number] [address] MCHC (RBC) [Mass/Vol] 31.8 g/dL Normal 30.5-36.0 [facility] Comment on above: Order Comment: Speci men Type: BLOOD SPECIMENOrdering Facility: [facility] Address: [address] [place] [address] Performed By: #### 5 8410-2 ####[facility]ORATORYCLIA [id number] [address] STATES [facility] MCV (RBC) [Entitic vol] 90.0 fL Normal 80.0-100.0 [facility] Comment on above: Order Comment: Speci men Type: BLOOD SPECIMENOrdering Facility: [facility] Address: [address] [place] [address] Performed By: #### 5 8410-2 ####[facility] LABORATORYCLIA [id number] [place] [address] [place] Nucleated RBC (Bld) [#/Vol] 10*3/uL Normal <0.01 [facility] Comment on above: Order Comment: Speci men Type: BLOOD SPECIMENOrdering Facility: [facility] Address: [address] [place] [address] Performed By: #### 5 8410-2 ####[facility] LABORATORYCLIA [id number] [place] [address] [place] Platelet mean volume (Bld) [Entitic vol] 8.8 fL Low 9.0-12.7 [facility] Comment on above: Order Comment: Speci men Type: BLOOD SPECIMENOrdering Facility: [facility] Address: [address] [place] [address] Performed By: #### 5 8410-2 ####[facility]ORATORYCLIA [id number] [address] [place] Platelets (Bld) [#/Vol] 663 10*3/uL High 150-400 [facility] Comment on above: Order Comment: Speci men Type: BLOOD SPECIMENOrdering Facility: [facility] Address: [address] [place] [address] Performed By: #### 5 8410-2 ####[facility]ORATORYCLIA [id number] [place] [address] [place] RBC (Bld) [#/Vol] 3.11 10*6/uL Low 4.20-6.00 [facility] Comment on above: Order Comment: Speci men Type: BLOOD SPECIMENOrdering Facility: [facility] Address: [address] [place] [address] Performed By: #### 5 8410-2 ####[facility]ORATORYCLIA [id number] [place] [address] [place] WBC (Bld) [#/Vol] 9.64 10*3/uL Normal 3.70-11.00 [facility] Comment on above: Order Comment: Speci men Type: BLOOD SPECIMENOrdering Facility: [facility] Address: [address] [place] [address] Performed By: #### 5 8410-2 ####[facility]ORATORYCLIA [id number] [place] [address] [place] CNDSon 03-29-2025 CNDS Normal [facility] ANES POSTPROC EVALon 025 ANES POSTPROC EVAL Normal [facility] ANES PRE-OPon 03-28-2025 ANES PRE-OP Normal [facility] Basic metabolic 2000 panelon 03-28-2025 Anion gap [Moles/Vol] 9 mmol/L Normal 8-15 [facility] Comment on above: Order Comment: Speci men Type: BLOOD SPECIMENOrdering Facility: [facility] Address: [address] [place] [address] Performed By: #### 2 4321-2 ####[facility]ORATORYCLIA [id number] [place] [address] [place] Calcium [Mass/Vol] 8.7 mg/dL Normal 8.5-10.2 [facility] Comment on above: Order Comment: Speci men Type: BLOOD SPECIMENOrdering Facility: [facility] Address: [address] [place] [address] Performed By: #### 2 4321-2 ####[facility]ORATORYCLIA [id number] [place] [address] [place] Chloride [Moles/Vol] 99 mmol/L Normal 98-107 [facility] Comment on above: Order Comment: Speci men Type: BLOOD SPECIMENOrdering Facility: [facility] Address: [address] [place] [address] Performed By: #### 2 4321-2 ####[facility]ORATORYCLIA [id number] [place] [address] [place] CO2 [Moles/Vol] 26 mmol/L Normal 22-30 [facility] Comment on above: Order Comment: Speci men Type: BLOOD SPECIMENOrdering Facility: [facility] Address: [address] [place] [address] Performed By: #### 2 4321-2 ####[facility]ORATORYCLIA [id number] [address] STATES OF [facility] Creatinine [Mass/Vol] 0.36 mg/dL Low 0.73-1.22 [facility] Comment on above: Order Comment: Katie holman Type: BLOOD SPECIMENOrdering Facility: [facility] Address: [address] [place] [address] Performed By: #### 2 4321-2 ####[facility]IA [id number] [address] eGFRcr SerPlBld CKD-EPI 2020 126 mL/min/1.73m??? Normal >=60 [facility] Comment on above: Order Comment: Katie holman Type: BLOOD SPECIMENOrdering Facility: [facility] Address: [address] [place] [address] Result Comment: Lisa mated Glomerular Filtration Rate (eGFR) is calculated using the 2020 CKD-EPI creatinine equation. This equation utilizes serum creatinine, sex, and age as parameters. The creatinine assay has traceable calibration to isotope dilution-mass spectrometry. Refer to KDIGO guidelines for clinical interpretation. In patients with unstable renal function, e.g. those with acute kidney injury, the eGFR may not accurately reflect actual GFR. Performed By: #### 2 4321-2 ####[facility]IA [id number] [address] STATES [facility] Glucose [Mass/Vol] 121 mg/dL High 74-99 [facility] Comment on above: Order Comment: Katie holman Type: BLOOD SPECIMENOrdering Facility: [facility] Address: [address] [place] [address] Result Comment: The [place] [employer] (ADA) provides guidance for cutoff values for fasting glucose and random glucose. The ADA defines fasting as no caloric intake for at least 8 hours. Fasting plasma glucose results between 100 to 125 mg/dL indicate increased risk for diabetes (prediabetes).Fasting plasma glucose results greater than or equal to 126 mg/dL meet the criteria for diagnosis of diabetes. In the absence of unequivocal hyperglycemia, results should be confirmed by repeat testing. In a patient with classic symptoms of hyperglycemia or hyperglycemic crisis, random plasma glucose results greater than or equal to 200 mg/dL meet the criteria for diagnosis of diabetes.Reference: Standards of Medical Care in Diabetes 2016, [place] [employer]. Diabetes Care. 2016.39(Suppl 1). Performed By: #### 2 4321-2 ####[facility] LABORATORYCLIA [id number] [address] STATES OF [facility] Potassium [Moles/Vol] 4.2 mmol/L Normal 3.7-5.1 [facility] Comment on above: Order Comment: Speci men Type: BLOOD SPECIMENOrdering Facility: [facility] Address: [address] [place] [address] Performed By: #### 2 4321-2 ####[facility]ORATORYCLIA [id number] [address] STATES [facility] Sodium [Moles/Vol] 134 mmol/L Low 136-144 [facility] Comment on above: Order Comment: Speci men Type: BLOOD SPECIMENOrdering Facility: [facility] Address: [address] [place] [address] Performed By: #### 2 4321-2 ####[facility]ORATORYCLIA [id number] [address] STATES [facility] Urea nitrogen [Mass/Vol] 8 mg/dL Low 9-24 [facility] Comment on above: Order Comment: Speci men Type: BLOOD SPECIMENOrdering Facility: [facility] Address: [address] [place] [address] Performed By: #### 2 4321-2 ####[facility] LABORATORYCLIA [id number] [place] [id number] [place] CASE MANAGEMon 03-28-2025 CASE MANAGEM Normal [facility] CBC panel Auto (Bld)on 03-28 Erythrocyte distribution width (RBC) [Ratio] 18.9 % High 11.5-15.0 [facility] Comment on above: Order Comment: Speci men Type: BLOOD SPECIMENOrdering Facility: [facility] Address: [address] [place] [address] Performed By: #### 5 8410-2 ####[facility] LABORATORYCLIA [id number] [address] OF [facility] Hematocrit (Bld) [Volume fraction] 26.2 % Low 39.0-51.0 [facility] Comment on above: Order Comment: Speci men Type: BLOOD SPECIMENOrdering Facility: [facility] Address: [address] [place] [address] Performed By: #### 5 8410-2 ####[facility]ORATORYCLIA [id number] [address] Hemoglobin (Bld) [Mass/Vol] 8.5 g/dL Low 13.0-17.0 [facility] Comment on above: Order Comment: Speci men Type: BLOOD SPECIMENOrdering Facility: [facility] Address: [address] [place] [address] Performed By: #### 5 8410-2 ####[facility]ORATORYCLIA [id number] [address] [place] [facility] MCH (RBC) [Entitic mass] 29.6 pg Normal 26.0-34.0 [facility] Comment on above: Order Comment: Speci men Type: BLOOD SPECIMENOrdering Facility: [facility] Address: [address] [place] [address] Performed By: #### 5 8410-2 ####[facility]ORATORYCLIA [id number] [address] [place] MCHC (RBC) [Mass/Vol] 32.4 g/dL Normal 30.5-36.0 [facility] Comment on above: Order Comment: Speci men Type: BLOOD SPECIMENOrdering Facility: [facility] Address: [address] [place] [address] Performed By: #### 5 8410-2 ####[facility]ORATORYCLIA [id number] [address] MCV (RBC) [Entitic vol] 91.3 fL Normal 80.0-100.0 [facility] Comment on above: Order Comment: Speci men Type: BLOOD SPECIMENOrdering Facility: [facility] Address: [address] [place] [address] Performed By: #### 5 8410-2 ####[facility]ORATORYCLIA [id number] [address] [place] Nucleated RBC (Bld) [#/Vol] 10*3/uL Normal <0.01 [facility] Comment on above: Order Comment: Speci men Type: BLOOD SPECIMENOrdering Facility: [facility] Address: [address] [place] [address] Performed By: #### 5 8410-2 ####[facility]ORATORYCLIA [id number] [address] [place] Platelet mean volume (Bld) [Entitic vol] 9.0 fL Normal 9.0-12.7 [facility] Comment on above: Order Comment: Speci men Type: BLOOD SPECIMENOrdering Facility: [facility] Address: [address] [place] [address] Performed By: #### 5 8410-2 ####[facility]ORATORYCLIA [id number] [address] [place] Platelets (Bld) [#/Vol] 674 10*3/uL High 150-400 [facility] Comment on above: Order Comment: Speci men Type: BLOOD SPECIMENOrdering Facility: [facility] Address: [address] [place] [address] Performed By: #### 5 8410-2 ####[facility]ORATORYCLIA [id number] [address] [place] RBC (Bld) [#/Vol] 2.87 10*6/uL Low 4.20-6.00 [facility] Comment on above: Order Comment: Speci men Type: BLOOD SPECIMENOrdering Facility: [facility] Address: [address] [place] [address] Performed By: #### 5 8410-2 ####[facility]ORATORYCLIA [id number] [address] [place] WBC (Bld) [#/Vol] 14.82 10*3/uL High 3.70-11.00 [facility] Comment on above: Order Comment: Speci men Type: BLOOD SPECIMENOrdering Facility: [facility] Address: [address] [place] [address] Performed By: #### 5 8410-2 ####[facility]ORATORYCLIA [id number] [place] [address] [place] Upper GI endoscopyon 025 Upper GI endoscopy Normal [facility] XR CHEST 1V FRONTALon 2024 XR CHEST 1V FRONTAL Normal [facility] Basic metabolic 2000 panelon 03-27-2025 Anion gap [Moles/Vol] 11 mmol/L Normal 8-15 [facility] Comment on above: Order Comment: Speci men Type: BLOOD SPECIMENOrdering Facility: [facility] Address: [address] [place] [address] Performed By: #### 2 4321-2 ####[facility]ORATORYCLIA [id number] [place] [address] [place] Calcium [Mass/Vol] 8.6 mg/dL Normal 8.5-10.2 [facility] Comment on above: Order Comment: Speci men Type: BLOOD SPECIMENOrdering Facility: [facility] Address: [address] [place] [address] Performed By: #### 2 4321-2 ####[facility]ORATORYCLIA [id number] [place] [address] [place] Chloride [Moles/Vol] 101 mmol/L Normal 98-107 [facility] Comment on above: Order Comment: Speci men Type: BLOOD SPECIMENOrdering Facility: [facility] Address: [address] [place] [address] Performed By: #### 2 4321-2 ####[facility] LABORATORYCLIA [id number] [place] [address] [place] CO2 [Moles/Vol] 26 mmol/L Normal 22-30 [facility] Comment on above: Order Comment: Speci men Type: BLOOD SPECIMENOrdering Facility: [facility] Address: [address] [place] [address] Performed By: #### 2 4321-2 ####[facility] HOSPITALCLIA [id number] [address] STATES [facility] Creatinine [Mass/Vol] 0.41 mg/dL Low 0.73-1.22 [facility] Comment on above: Order Comment: Speci river Type: BLOOD SPECIMENOrdering Facility: [facility] Address: [address] [place] [address] Performed By: #### 2 4321-2 ####[facility] HOSPITALCLIA [id number] [address] eGFRcr SerPlBld CKD-EPI 2020 121 mL/min/1.73m??? Normal >=60 [facility] Comment on above: Order Comment: Spectania holman Type: BLOOD SPECIMENOrdering Facility: [facility] Address: [address] [place] [address] Result Comment: Lisa mated Glomerular Filtration Rate (eGFR) is calculated using the 2020 CKD-EPI creatinine equation. This equation utilizes serum creatinine, sex, and age as parameters. The creatinine assay has traceable calibration to isotope dilution-mass spectrometry. Refer to KDIGO guidelines for clinical interpretation. In patients with unstable renal function, e.g. those with acute kidney injury, the eGFR may not accurately reflect actual GFR. Performed By: #### 2 4321-2 ####[facility] LABORATORYIA [id number] [address] [place] [facility] Glucose [Mass/Vol] 105 mg/dL High 74-99 [facility] Comment on above: Order Comment: Katie holman Type: BLOOD SPECIMENOrdering Facility: [facility] Address: [address] [place] [address] Result Comment: The [place] [employer] (ADA) provides guidance for cutoff values for fasting glucose and random glucose. The ADA defines fasting as no caloric intake for at least 8 hours. Fasting plasma glucose results between 100 to 125 mg/dL indicate increased risk for diabetes (prediabetes).Fasting plasma glucose results greater than or equal to 126 mg/dL meet the criteria for diagnosis of diabetes. In the absence of unequivocal hyperglycemia, results should be confirmed by repeat testing. In a patient with classic symptoms of hyperglycemia or hyperglycemic crisis, random plasma glucose results greater than or equal to 200 mg/dL meet the criteria for diagnosis of diabetes.Reference: Standards of Medical Care in Diabetes 2016, [place] [employer]. Diabetes Care. 2016.39(Suppl 1). Performed By: #### 2 4321-2 ####[facility] LABORATORYCLIA [id number] [address] STATES OF [facility] Potassium [Moles/Vol] 3.5 mmol/L Low 3.7-5.1 [facility] Comment on above: Order Comment: Speci men Type: BLOOD SPECIMENOrdering Facility: [facility] Address: [address] [place] [address] Performed By: #### 2 4321-2 ####[facility]ORATORYCLIA [id number] [address] Sodium [Moles/Vol] 138 mmol/L Normal 136-144 [facility] Comment on above: Order Comment: Speci men Type: BLOOD SPECIMENOrdering Facility: [facility] Address: [address] [place] [address] Performed By: #### 2 4321-2 ####[facility]ORATORYCLIA [id number] [address] [place] [facility] Urea nitrogen [Mass/Vol] 7 mg/dL Low 9-24 [facility] Comment on above: Order Comment: Speci men Type: BLOOD SPECIMENOrdering Facility: [facility] Address: [address] [place] [address] Performed By: #### 2 4321-2 ####[facility]ORATORYCLIA [id number] [place] [id number] [place] CASE MANAGEMon 03-27-2025 CASE MANAGEM Normal [facility] CBC panel Auto (Bld)on 03-27 Erythrocyte distribution width (RBC) [Ratio] 18.7 % High 11.5-15.0 [facility] Comment on above: Order Comment: Speci men Type: BLOOD SPECIMENOrdering Facility: [facility] Address: [address] [place] [address] Performed By: #### 5 8410-2 ####[facility] LABORATORYCLIA [id number] [address] Hematocrit (Bld) [Volume fraction] 26.8 % Low 39.0-51.0 [facility] Comment on above: Order Comment: Speci men Type: BLOOD SPECIMENOrdering Facility: [facility] Address: [address] [place] [address] Performed By: #### 5 8410-2 ####[facility] LABORATORYCLIA [id number] [address] Hemoglobin (Bld) [Mass/Vol] 8.4 g/dL Low 13.0-17.0 [facility] Comment on above: Order Comment: Speci men Type: BLOOD SPECIMENOrdering Facility: [facility] Address: [address] [place] [address] Performed By: #### 5 8410-2 ####[facility] LABORATORYCLIA [id number] [address] MCH (RBC) [Entitic mass] 28.7 pg Normal 26.0-34.0 [facility] Comment on above: Order Comment: Speci men Type: BLOOD SPECIMENOrdering Facility: [facility] Address: [address] [place] [address] Performed By: #### 5 8410-2 ####[facility] LABORATORYCLIA [id number] [address] [place] MCHC (RBC) [Mass/Vol] 31.3 g/dL Normal 30.5-36.0 [facility] Comment on above: Order Comment: Speci men Type: BLOOD SPECIMENOrdering Facility: [facility] Address: [address] [place] [address] Performed By: #### 5 8410-2 ####[facility] LABORATORYCLIA [id number] [place] [address] [place] MCV (RBC) [Entitic vol] 91.5 fL Normal 80.0-100.0 [facility] Comment on above: Order Comment: Speci men Type: BLOOD SPECIMENOrdering Facility: [facility] Address: [address] [place] [address] Performed By: #### 5 8410-2 ####[facility] LABORATORYCLIA [id number] [address] [place] Nucleated RBC (Bld) [#/Vol] 10*3/uL Normal <0.01 [facility] Comment on above: Order Comment: Speci men Type: BLOOD SPECIMENOrdering Facility: [facility] Address: [address] [place] [address] Performed By: #### 5 8410-2 ####[facility] LABORATORYCLIA [id number] [address] [place] Platelet mean volume (Bld) [Entitic vol] 8.9 fL Low 9.0-12.7 [facility] Comment on above: Order Comment: Speci men Type: BLOOD SPECIMENOrdering Facility: [facility] Address: [address] [place] [address] Performed By: #### 5 8410-2 ####[facility] LABORATORYCLIA [id number] [address] [place] Platelets (Bld) [#/Vol] 626 10*3/uL High 150-400 [facility] Comment on above: Order Comment: Speci men Type: BLOOD SPECIMENOrdering Facility: [facility] Address: [address] [place] [address] Performed By: #### 5 8410-2 ####[facility] LABORATORYCLIA [id number] [address] [place] RBC (Bld) [#/Vol] 2.93 10*6/uL Low 4.20-6.00 [facility] Comment on above: Order Comment: Speci men Type: BLOOD SPECIMENOrdering Facility: [facility] Address: [facility] [place] [address] Performed By: #### 5 8410-2 ####[facility] LABORATORYCLIA [id number] [place] [address] [place] WBC (Bld) [#/Vol] 10.26 10*3/uL Normal 3.70-11.00 [facility] Comment on above: Order Comment: Speci men Type: BLOOD SPECIMENOrdering Facility: [facility] Address: [address] [place] [address] Performed By: #### 5 8410-2 ####[facility] LABORATORYCLIA [id number] [address] [place] CONSULT PROGon 03-27-2025 CONSULT PROG Normal [facility] XR CHEST 1V FRONTALon 2024 XR CHEST 1V FRONTAL Normal [facility] BRIEF OP NOTon 03-26-2025 BRIEF OP NOT Normal [facility] Basic metabolic 2000 panelon 03-26-2025 Anion gap [Moles/Vol] 9 mmol/L Normal 8-15 [facility] Comment on above: Order Comment: Speci men Type: BLOOD SPECIMENOrdering Facility: [facility] Address: [address] [place] [address] Performed By: #### 2 4321-2 ####[facility] LABORATORYCLIA [id number] [place] [address] [place] Calcium [Mass/Vol] 8.7 mg/dL Normal 8.5-10.2 [facility] Comment on above: Order Comment: Speci men Type: BLOOD SPECIMENOrdering Facility: [facility] Address: [address] [place] [address] Performed By: #### 2 4321-2 ####[facility] LABORATORYCLIA [id number] [place] [address] [place] Chloride [Moles/Vol] 100 mmol/L Normal 98-107 [facility] Comment on above: Order Comment: Speci men Type: BLOOD SPECIMENOrdering Facility: [facility] Address: [address] [place] [address] Performed By: #### 2 4321-2 ####[facility]ORATORYCLIA [id number] [address] [place] CO2 [Moles/Vol] 27 mmol/L Normal 22-30 [facility] Comment on above: Order Comment: Speci men Type: BLOOD SPECIMENOrdering Facility: [facility] Address: [address] [place] [address] Performed By: #### 2 4321-2 ####[facility] LABORATORYCLIA [id number] [address] STATES OF [facility] Creatinine [Mass/Vol] 0.40 mg/dL Low 0.73-1.22 [facility] Comment on above: Order Comment: Speci men Type: BLOOD SPECIMENOrdering Facility: [facility] Address: [address] [place] [address] Performed By: #### 2 4321-2 ####[facility]PITALCLIA [id number] [address] eGFRcr SerPlBld CKD-EPI 2020 122 mL/min/1.73m??? Normal >=60 [facility] Comment on above: Order Comment: Speci men Type: BLOOD SPECIMENOrdering Facility: [facility] Address: [address] [place] [address] Result Comment: Lisa mated Glomerular Filtration Rate (eGFR) is calculated using the 2020 CKD-EPI creatinine equation. This equation utilizes serum creatinine, sex, and age as parameters. The creatinine assay has traceable calibration to isotope dilution-mass spectrometry. Refer to KDIGO guidelines for clinical interpretation. In patients with unstable renal function, e.g. those with acute kidney injury, the eGFR may not accurately reflect actual GFR. Performed By: #### 2 4321-2 ####[facility]ORATORYCLIA [id number] [address] [place] Glucose [Mass/Vol] 105 mg/dL High 74-99 [facility] Comment on above: Order Comment: Speci men Type: BLOOD SPECIMENOrdering Facility: [facility] Address: [address] [place] [address] Result Comment: The [place] [employer] (ADA) provides guidance for cutoff values for fasting glucose and random glucose. The ADA defines fasting as no caloric intake for at least 8 hours. Fasting plasma glucose results between 100 to 125 mg/dL indicate increased risk for diabetes (prediabetes).Fasting plasma glucose results greater than or equal to 126 mg/dL meet the criteria for diagnosis of diabetes. In the absence of unequivocal hyperglycemia, results should be confirmed by repeat testing. In a patient with classic symptoms of hyperglycemia or hyperglycemic crisis, random plasma glucose results greater than or equal to 200 mg/dL meet the criteria for diagnosis of diabetes.Reference: Standards of Medical Care in Diabetes 2016, [place] [employer]. Diabetes Care. 2016.39(Suppl 1). Performed By: #### 2 4321-2 ####[facility]ORATORYCLIA [id number] [address] STATES OF [facility] Potassium [Moles/Vol] 4.1 mmol/L Normal 3.7-5.1 [facility] Comment on above: Order Comment: Katie holman Type: BLOOD SPECIMENOrdering Facility: [facility] Address: [address] [place] [address] Performed By: #### 2 4321-2 ####[facility] LABORATORYCLIA [id number] [address] STATES [facility] Sodium [Moles/Vol] 136 mmol/L Normal 136-144 [facility] Comment on above: Order Comment: Katie holman Type: BLOOD SPECIMENOrdering Facility: [facility] Address: [address] [place] [address] Performed By: #### 2 4321-2 ####[facility]ORATORYCLIA [id number] [address] STATES OF [facility] Urea nitrogen [Mass/Vol] 6 mg/dL Low 9-24 [facility] Comment on above: Order Comment: Katie holman Type: BLOOD SPECIMENOrdering Facility: [facility] Address: [address] [place] [address] Performed By: #### 2 4321-2 ####[facility]ORATORYCLIA [id number] [address] [place] CBC panel Auto (Bld)on 03-26 Erythrocyte distribution width (RBC) [Ratio] 18.6 % High 11.5-15.0 [facility] Comment on above: Order Comment: Speci men Type: BLOOD SPECIMENOrdering Facility: [facility] Address: [address] [place] [address] Performed By: #### 5 8410-2 ####[facility]ORATORYCLIA [id number] [address] OF [facility] Hematocrit (Bld) [Volume fraction] 26.9 % Low 39.0-51.0 [facility] Comment on above: Order Comment: Speci men Type: BLOOD SPECIMENOrdering Facility: [facility] Address: [address] [place] [address] Performed By: #### 5 8410-2 ####[facility]ORATORYCLIA [id number] [address] OF [facility] Hemoglobin (Bld) [Mass/Vol] 8.4 g/dL Low 13.0-17.0 [facility] Comment on above: Order Comment: Speci men Type: BLOOD SPECIMENOrdering Facility: [facility] Address: [address] [place] [address] Performed By: #### 5 8410-2 ####[facility]ORATORYCLIA [id number] [address] [place] MCH (RBC) [Entitic mass] 28.4 pg Normal 26.0-34.0 [facility] Comment on above: Order Comment: Speci men Type: BLOOD SPECIMENOrdering Facility: [facility] Address: [address] [place] [address] Performed By: #### 5 8410-2 ####[facility]ORATORYCLIA [id number] [address] [place] MCHC (RBC) [Mass/Vol] 31.2 g/dL Normal 30.5-36.0 [facility] Comment on above: Order Comment: Speci men Type: BLOOD SPECIMENOrdering Facility: [facility] Address: [address] [place] [address] Performed By: #### 5 8410-2 ####[facility]ORATORYCLIA [id number] [address] MCV (RBC) [Entitic vol] 90.9 fL Normal 80.0-100.0 [facility] Comment on above: Order Comment: Speci men Type: BLOOD SPECIMENOrdering Facility: [facility] Address: [address] [place] [address] Performed By: #### 5 8410-2 ####[facility]ORATORYCLIA [id number] [address] [place] Nucleated RBC (Bld) [#/Vol] 10*3/uL Normal <0.01 [facility] Comment on above: Order Comment: Speci men Type: BLOOD SPECIMENOrdering Facility: [facility] Address: [address] [place] [address] Performed By: #### 5 8410-2 ####[facility]ORATORYCLIA [id number] [address] [place] Platelet mean volume (Bld) [Entitic vol] 8.7 fL Low 9.0-12.7 [facility] Comment on above: Order Comment: Speci men Type: BLOOD SPECIMENOrdering Facility: [facility] Address: [address] [place] [address] Performed By: #### 5 8410-2 ####[facility]ORATORYCLIA [id number] [address] [place] Platelets (Bld) [#/Vol] 608 10*3/uL High 150-400 [facility] Comment on above: Order Comment: Speci men Type: BLOOD SPECIMENOrdering Facility: [facility] Address: [address] [place] [address] Performed By: #### 5 8410-2 ####[facility]ORATORYCLIA [id number] [address] [place] RBC (Bld) [#/Vol] 2.96 10*6/uL Low 4.20-6.00 [facility] Comment on above: Order Comment: Speci men Type: BLOOD SPECIMENOrdering Facility: [facility] Address: [address] [place] [address] Performed By: #### 5 8410-2 ####[facility]ORATORYCLIA [id number] [place] [address] [place] WBC (Bld) [#/Vol] 13.16 10*3/uL High 3.70-11.00 [facility] Comment on above: Order Comment: Speci men Type: BLOOD SPECIMENOrdering Facility: [facility] Address: [address] [place] [address] Performed By: #### 5 8410-2 ####[facility]ORATORYCLIA [id number] [address] [place] IR RPLC DUODENSTMY/J TUBE PE RCon 03-26-2025 IR RPLC DUODENSTMY/J TUBE PERC Normal [facility] XR CHEST 1V FRONTALon 2024 XR CHEST 1V FRONTAL Normal [facility] XR CHEST 1V FRONTAL Normal [facility] Basic metabolic 2000 panelon 03-25-2025 Anion gap [Moles/Vol] 8 mmol/L Normal 8-15 [facility] Comment on above: Order Comment: Speci men Type: BLOOD SPECIMENOrdering Facility: [facility] Address: [address] [place] [address] Performed By: #### 2 4321-2 ####[facility]ATORYCLIA [id number] [place] [address] [place] Calcium [Mass/Vol] 8.6 mg/dL Normal 8.5-10.2 [facility] Comment on above: Order Comment: Speci men Type: BLOOD SPECIMENOrdering Facility: [facility] Address: [address] [place] [address] Performed By: #### 2 4321-2 ####[facility]ORYCLIA [id number] [place] [address] [place] Chloride [Moles/Vol] 99 mmol/L Normal 98-107 [facility] Comment on above: Order Comment: Speci men Type: BLOOD SPECIMENOrdering Facility: [facility] Address: [address] [place] [address] Performed By: #### 2 4321-2 ####[facility]ORATORYCLIA [id number] [place] [address] [place] CO2 [Moles/Vol] 28 mmol/L Normal 22-30 [facility] Comment on above: Order Comment: Speci men Type: BLOOD SPECIMENOrdering Facility: [facility] Address: [address] [place] [address] Performed By: #### 2 4321-2 ####[facility]ORATORYCLIA [id number] [place] [address] [place] Creatinine [Mass/Vol] 0.39 mg/dL Low 0.73-1.22 [facility] Comment on above: Order Comment: Speci men Type: BLOOD SPECIMENOrdering Facility: [facility] Address: [address] [place] [address] Performed By: #### 2 4321-2 ####[facility]ORATORYCLIA [id number] [address] [place] eGFRcr SerPlBld CKD-EPI 2020 123 mL/min/1.73m??? Normal >=60 [facility] Comment on above: Order Comment: Speci men Type: BLOOD SPECIMENOrdering Facility: [facility] Address: [address] [place] [address] Result Comment: Lisa mated Glomerular Filtration Rate (eGFR) is calculated using the 2020 CKD-EPI creatinine equation. This equation utilizes serum creatinine, sex, and age as parameters. The creatinine assay has traceable calibration to isotope dilution-mass spectrometry. Refer to KDIGO guidelines for clinical interpretation. In patients with unstable renal function, e.g. those with acute kidney injury, the eGFR may not accurately reflect actual GFR. Performed By: #### 2 4321-2 ####[facility]ORATORYCLIA [id number] [address] [place] Glucose [Mass/Vol] 92 mg/dL Normal 74-99 [facility] Comment on above: Order Comment: Speci men Type: BLOOD SPECIMENOrdering Facility: [facility] Address: [address] [place] [address] Result Comment: The [place] [employer] (ADA) provides guidance for cutoff values for fasting glucose and random glucose. The ADA defines fasting as no caloric intake for at least 8 hours. Fasting plasma glucose results between 100 to 125 mg/dL indicate increased risk for diabetes (prediabetes).Fasting plasma glucose results greater than or equal to 126 mg/dL meet the criteria for diagnosis of diabetes. In the absence of unequivocal hyperglycemia, results should be confirmed by repeat testing. In a patient with classic symptoms of hyperglycemia or hyperglycemic crisis, random plasma glucose results greater than or equal to 200 mg/dL meet the criteria for diagnosis of diabetes.Reference: Standards of Medical Care in Diabetes 2016, [place] [employer]. Diabetes Care. 2016.39(Suppl 1). Performed By: #### 2 4321-2 ####[facility] LABORATORYCLIA [id number] [place] [address] [place] Potassium [Moles/Vol] 3.8 mmol/L Normal 3.7-5.1 [facility] Comment on above: Order Comment: Aleshai men Type: BLOOD SPECIMENOrdering Facility: [facility] Address: [address] [place] [address] Performed By: #### 2 4321-2 ####[facility]ORATORYCLIA [id number] [place] [address] [place] Sodium [Moles/Vol] 135 mmol/L Low 136-144 [facility] Comment on above: Order Comment: Speci men Type: BLOOD SPECIMENOrdering Facility: [facility] Address: [address] [place] [id number] Performed By: #### 2 4321-2 ####[facility]ORATORYCLIA [id number] [place] [address] [place] Urea nitrogen [Mass/Vol] 12 mg/dL Normal 9-24 [facility] Comment on above: Order Comment: Speci men Type: BLOOD SPECIMENOrdering Facility: [facility] Address: [address] [place] [address] Performed By: #### 2 4321-2 ####[facility]ORATORYCLIA [id number] [address] CBC panel Auto (Bld)on 03-25 Erythrocyte distribution width (RBC) [Ratio] 18.7 % High 11.5-15.0 [facility] Comment on above: Order Comment: Speci men Type: BLOOD SPECIMENOrdering Facility: [facility] Address: [address] [place] [address] Performed By: #### 5 8410-2 ####[facility]ORATORYCLIA [id number] [address] Hematocrit (Bld) [Volume fraction] 27.8 % Low 39.0-51.0 [facility] Comment on above: Order Comment: Speci men Type: BLOOD SPECIMENOrdering Facility: [facility] Address: [address] [place] [address] Performed By: #### 5 8410-2 ####[facility]ORATORYCLIA [id number] [address] Hemoglobin (Bld) [Mass/Vol] 8.8 g/dL Low 13.0-17.0 [facility] Comment on above: Order Comment: Speci men Type: BLOOD SPECIMENOrdering Facility: [facility] Address: [address] [place] [address] Performed By: #### 5 8410-2 ####[facility]ORATORYCLIA [id number] [address] MCH (RBC) [Entitic mass] 28.8 pg Normal 26.0-34.0 [facility] Comment on above: Order Comment: Speci men Type: BLOOD SPECIMENOrdering Facility: [facility] Address: [address] [place] [address] Performed By: #### 5 8410-2 ####[facility]ORATORYCLIA [id number] [address] MCHC (RBC) [Mass/Vol] 31.7 g/dL Normal 30.5-36.0 [facility] Comment on above: Order Comment: Speci men Type: BLOOD SPECIMENOrdering Facility: [facility] Address: [address] [place] [address] Performed By: #### 5 8410-2 ####[facility]ATORYCLIA [id number] [address] [place] MCV (RBC) [Entitic vol] 90.8 fL Normal 80.0-100.0 [facility] Comment on above: Order Comment: Speci men Type: BLOOD SPECIMENOrdering Facility: [facility] Address: [address] [place] [address] Performed By: #### 5 8410-2 ####[facility]ORATORYCLIA [id number] [address] [place] Nucleated RBC (Bld) [#/Vol] 10*3/uL Normal <0.01 [facility] Comment on above: Order Comment: Speci men Type: BLOOD SPECIMENOrdering Facility: [facility] Address: [address] [place] [address] Performed By: #### 5 8410-2 ####[facility]ORATORYCLIA [id number] [address] [place] Platelet mean volume (Bld) [Entitic vol] 8.8 fL Low 9.0-12.7 [facility] Comment on above: Order Comment: Speci men Type: BLOOD SPECIMENOrdering Facility: [facility] Address: [address] [place] [address] Performed By: #### 5 8410-2 ####[facility]ATORYCLIA [id number] [address] [place] Platelets (Bld) [#/Vol] 571 10*3/uL High 150-400 [facility] Comment on above: Order Comment: Speci men Type: BLOOD SPECIMENOrdering Facility: [facility] Address: [address] [place] [address] Performed By: #### 5 8410-2 ####[facility]ATORYCLIA [id number] [address] [place] RBC (Bld) [#/Vol] 3.06 10*6/uL Low 4.20-6.00 [facility] Comment on above: Order Comment: Speci men Type: BLOOD SPECIMENOrdering Facility: [facility] Address: [address] [place] [address] Performed By: #### 5 8410-2 ####[facility]ATORYCLIA [id number] [address] [place] WBC (Bld) [#/Vol] 12.33 10*3/uL High 3.70-11.00 [facility] Comment on above: Order Comment: Speci men Type: BLOOD SPECIMENOrdering Facility: [facility] Address: [address] [place] [address] Performed By: #### 5 8410-2 ####[facility]ATORYCLIA [id number] [address] [place] NURSING PROGon 03-25-2025 NURSING PROG Normal [facility] XR CHEST 1V FRONTALon 2024 XR CHEST 1V FRONTAL Normal [facility] Basic metabolic 2000 panelon 03-24-2025 Anion gap [Moles/Vol] 7 mmol/L Low 8-15 [facility] Comment on above: Order Comment: Speci men Type: BLOOD SPECIMENOrdering Facility: [facility] Address: [address] [place] [address] Performed By: #### 2 4321-2 ####[facility]ORATORYCLIA [id number] [address] STATES OF [facility] Calcium [Mass/Vol] 8.5 mg/dL Normal 8.5-10.2 [facility] Comment on above: Order Comment: Speci men Type: BLOOD SPECIMENOrdering Facility: [facility] Address: [address] [place] [address] Performed By: #### 2 4321-2 ####[facility]ORATORYCLIA [id number] [address] OF [facility] Chloride [Moles/Vol] 100 mmol/L Normal 98-107 [facility] Comment on above: Order Comment: Speci men Type: BLOOD SPECIMENOrdering Facility: [facility] Address: [address] [place] [address] Performed By: #### 2 4321-2 ####[facility]ATORYCLIA [id number] [address] OF [facility] CO2 [Moles/Vol] 27 mmol/L Normal 22-30 [facility] Comment on above: Order Comment: Speci men Type: BLOOD SPECIMENOrdering Facility: [facility] Address: [address] [place] [address] Performed By: #### 2 4321-2 ####[facility]ITALCLIA [id number] [address] OF [facility] Creatinine [Mass/Vol] 0.39 mg/dL Low 0.73-1.22 [facility] Comment on above: Order Comment: Speci men Type: BLOOD SPECIMENOrdering Facility: [facility] Address: [address] [place] [address] Performed By: #### 2 4321-2 ####[facility]ORATORYCLIA [id number] [address] eGFRcr SerPlBld CKD-EPI 2020 123 mL/min/1.73m??? Normal >=60 [facility] Comment on above: Order Comment: Speci men Type: BLOOD SPECIMENOrdering Facility: [facility] Address: [address] [place] [address] Result Comment: Lisa mated Glomerular Filtration Rate (eGFR) is calculated using the 2020 CKD-EPI creatinine equation. This equation utilizes serum creatinine, sex, and age as parameters. The creatinine assay has traceable calibration to isotope dilution-mass spectrometry. Refer to KDIGO guidelines for clinical interpretation. In patients with unstable renal function, e.g. those with acute kidney injury, the eGFR may not accurately reflect actual GFR. Performed By: #### 2 4321-2 ####[facility]ORATORYCLIA [id number] [place] [address] [place] Glucose [Mass/Vol] 106 mg/dL High 74-99 [facility] Comment on above: Order Comment: Speci men Type: BLOOD SPECIMENOrdering Facility: [facility] Address: [address] [place] [address] Result Comment: The [place] [employer] (ADA) provides guidance for cutoff values for fasting glucose and random glucose. The ADA defines fasting as no caloric intake for at least 8 hours. Fasting plasma glucose results between 100 to 125 mg/dL indicate increased risk for diabetes (prediabetes).Fasting plasma glucose results greater than or equal to 126 mg/dL meet the criteria for diagnosis of diabetes. In the absence of unequivocal hyperglycemia, results should be confirmed by repeat testing. In a patient with classic symptoms of hyperglycemia or hyperglycemic crisis, random plasma glucose results greater than or equal to 200 mg/dL meet the criteria for diagnosis of diabetes.Reference: Standards of Medical Care in Diabetes 2016, [place] [employer]. Diabetes Care. 2016.39(Suppl 1). Performed By: #### 2 4321-2 ####[facility] LABORATORYCLIA [id number] [place] [address] [place] Potassium [Moles/Vol] 4.2 mmol/L Normal 3.7-5.1 [facility] [facility] Comment on above: Order Comment: Speci men Type: BLOOD SPECIMENOrdering Facility: [facility] Address: [address] [place] [address] Performed By: #### 2 4321-2 ####[facility] LABORATORYCLIA [id number] [place] [address] [place] Sodium [Moles/Vol] 134 mmol/L Low 136-144 [facility] Comment on above: Order Comment: Speci men Type: BLOOD SPECIMENOrdering Facility: [facility] Address: [address] [place] [address] Performed By: #### 2 4321-2 ####[facility] LABORATORYCLIA [id number] [place] [address] [place] Urea nitrogen [Mass/Vol] 14 mg/dL Normal 9-24 [facility] Comment on above: Order Comment: Speci men Type: BLOOD SPECIMENOrdering Facility: [facility] Address: [address] [place] [address] Performed By: #### 2 4321-2 ####[facility] LABORATORYCLIA [id number] [address] CASE MANAGEMon 03-24-2025 CASE MANAGEM Normal [facility] CBC panel Auto (Bld)on 03-24 Erythrocyte distribution width (RBC) [Ratio] 18.9 % High 11.5-15.0 [facility] Comment on above: Order Comment: Speci men Type: BLOOD SPECIMENOrdering Facility: [facility] Address: [address] [place] [address] Performed By: #### 5 8410-2 ####[facility] LABORATORYCLIA [id number] [address] [place] [facility] Hematocrit (Bld) [Volume fraction] 28.2 % Low 39.0-51.0 [facility] Comment on above: Order Comment: Speci men Type: BLOOD SPECIMENOrdering Facility: [facility] Address: [address] [place] [address] Performed By: #### 5 8410-2 ####[facility] LABORATORYCLIA [id number] [address] [place] Hemoglobin (Bld) [Mass/Vol] 8.8 g/dL Low 13.0-17.0 [facility] Comment on above: Order Comment: Speci men Type: BLOOD SPECIMENOrdering Facility: [facility] Address: [address] [place] [address] Performed By: #### 5 8410-2 ####[facility] LABORATORYCLIA [id number] [address] [place] [facility] MCH (RBC) [Entitic mass] 28.7 pg Normal 26.0-34.0 [facility] Comment on above: Order Comment: Speci men Type: BLOOD SPECIMENOrdering Facility: [facility] Address: [address] [place] [address] Performed By: #### 5 8410-2 ####[facility] LABORATORYCLIA [id number] [address] [place] MCHC (RBC) [Mass/Vol] 31.2 g/dL Normal 30.5-36.0 [facility] Comment on above: Order Comment: Speci men Type: BLOOD SPECIMENOrdering Facility: [facility] Address: [address] [place] [address] Performed By: #### 5 8410-2 ####[facility] LABORATORYCLIA [id number] [address] [place] MCV (RBC) [Entitic vol] 91.9 fL Normal 80.0-100.0 [facility] Comment on above: Order Comment: Speci men Type: BLOOD SPECIMENOrdering Facility: [facility] Address: [address] [place] [address] Performed By: #### 5 8410-2 ####[facility] LABORATORYCLIA [id number] [address] Nucleated RBC (Bld) [#/Vol] 10*3/uL Normal <0.01 [facility] Comment on above: Order Comment: Speci men Type: BLOOD SPECIMENOrdering Facility: [facility] Address: [address] [place] [address] Performed By: #### 5 8410-2 ####[facility] LABORATORYCLIA [id number] [address] [place] Platelet mean volume (Bld) [Entitic vol] 9.2 fL Normal 9.0-12.7 [facility] Comment on above: Order Comment: Speci men Type: BLOOD SPECIMENOrdering Facility: [facility] Address: [address] [place] [address] Performed By: #### 5 8410-2 ####[facility] LABORATORYCLIA [id number] [address] [place] Platelets (Bld) [#/Vol] 621 10*3/uL High 150-400 [facility] Comment on above: Order Comment: Speci men Type: BLOOD SPECIMENOrdering Facility: [facility] Address: [address] [place] [address] Performed By: #### 5 8410-2 ####[facility] LABORATORYCLIA [id number] [address] STATES OF [facility] RBC (Bld) [#/Vol] 3.07 10*6/uL Low 4.20-6.00 [facility] Comment on above: Order Comment: Speci men Type: BLOOD SPECIMENOrdering Facility: [facility] Address: [address] [place] [address] Performed By: #### 5 8410-2 ####[facility]ORATORYCLIA [id number] [address] STATES OF [facility] WBC (Bld) [#/Vol] 8.98 10*3/uL Normal 3.70-11.00 [facility] Comment on above: Order Comment: Speci men Type: BLOOD SPECIMENOrdering Facility: [facility] Address: [address] [place] [address] Performed By: #### 5 8410-2 ####[facility] LABORATORYCLIA [id number] [place] [id number] [place] NUTRITIONon 03-24-2025 NUTRITION Normal [facility] XR CHEST 1V FRONTALon 2024 XR CHEST 1V FRONTAL Normal [facility] XR CHEST 1V FRONTAL Normal [facility] ALLIED HEALTHon 03-23-2025 ALLIED HEALTH Normal [facility] ALLIED HEALTH Normal [facility] ALLIED HEALTH Normal [facility] Basic metabolic 2000 panelon 03-23-2025 Anion gap [Moles/Vol] 12 mmol/L Normal 8-15 [facility] Comment on above: Order Comment: Speci men Type: BLOOD SPECIMENOrdering Facility: [facility] Address: [address] [place] [address] Performed By: #### 2 4321-2 ####[facility]ORATORYCLIA [id number] [place] [address] [place] Calcium [Mass/Vol] 8.6 mg/dL Normal 8.5-10.2 [facility] Comment on above: Order Comment: Speci men Type: BLOOD SPECIMENOrdering Facility: [facility] Address: [address] [place] [address] Performed By: #### 2 4321-2 ####[facility] LABORATORYCLIA [id number] [address] [place] Chloride [Moles/Vol] 99 mmol/L Normal 98-107 [facility] Comment on above: Order Comment: Speci men Type: BLOOD SPECIMENOrdering Facility: [facility] Address: [address] [place] [address] Performed By: #### 2 4321-2 ####[facility]ORATORYCLIA [id number] [address] [place] CO2 [Moles/Vol] 25 mmol/L Normal 22-30 [facility] Comment on above: Order Comment: Speci men Type: BLOOD SPECIMENOrdering Facility: [facility] Address: [address] [place] [address] Performed By: #### 2 4321-2 ####[facility]ORATORYCLIA [id number] [address] [place] Creatinine [Mass/Vol] 0.35 mg/dL Low 0.73-1.22 [facility] Comment on above: Order Comment: Speci men Type: BLOOD SPECIMENOrdering Facility: [facility] Address: [address] [place] [address] Performed By: #### 2 4321-2 ####[facility] LABORATORYCLIA [id number] [address] [place] eGFRcr SerPlBld CKD-EPI 2020 127 mL/min/1.73m??? Normal >=60 [facility] Comment on above: Order Comment: Speci men Type: BLOOD SPECIMENOrdering Facility: [facility] Address: [address] [place] [address] Result Comment: Lisa mated Glomerular Filtration Rate (eGFR) is calculated using the 2020 CKD-EPI creatinine equation. This equation utilizes serum creatinine, sex, and age as parameters. The creatinine assay has traceable calibration to isotope dilution-mass spectrometry. Refer to KDIGO guidelines for clinical interpretation. In patients with unstable renal function, e.g. those with acute kidney injury, the eGFR may not accurately reflect actual GFR. Performed By: #### 2 4321-2 ####[facility]ORATORYCLIA [id number] [place] [address] [place] Glucose [Mass/Vol] 106 mg/dL High 74-99 [facility] Comment on above: Order Comment: Speci men Type: BLOOD SPECIMENOrdering Facility: [facility] Address: [address] [place] [address] Result Comment: The [place] [employer] (ADA) provides guidance for cutoff values for fasting glucose and random glucose. The ADA defines fasting as no caloric intake for at least 8 hours. Fasting plasma glucose results between 100 to 125 mg/dL indicate increased risk for diabetes (prediabetes).Fasting plasma glucose results greater than or equal to 126 mg/dL meet the criteria for diagnosis of diabetes. In the absence of unequivocal hyperglycemia, results should be confirmed by repeat testing. In a patient with classic symptoms of hyperglycemia or hyperglycemic crisis, random plasma glucose results greater than or equal to 200 mg/dL meet the criteria for diagnosis of diabetes.Reference: Standards of Medical Care in Diabetes 2016, [place] [employer]. Diabetes Care. 2016.39(Suppl 1). Performed By: #### 2 4321-2 ####[facility]ORATORYCLIA [id number] [place] [address] [place] Potassium [Moles/Vol] 4.6 mmol/L Normal 3.7-5.1 [facility] Comment on above: Order Comment: Katie men Type: BLOOD SPECIMENOrdering Facility: [facility] Address: [address] [place] [id number] Performed By: #### 2 4321-2 ####[facility] LABORATORYCLIA [id number] [place] [address] [place] Sodium [Moles/Vol] 136 mmol/L Normal 136-144 [facility] Comment on above: Order Comment: Speci men Type: BLOOD SPECIMENOrdering Facility: [facility] Address: [address] [place] [address] Performed By: #### 2 4321-2 ####[facility]ORATORYCLIA [id number] [address] [place] [facility] Urea nitrogen [Mass/Vol] 8 mg/dL Low 9-24 [facility] Comment on above: Order Comment: Speci men Type: BLOOD SPECIMENOrdering Facility: [facility] Address: [address] [place] [address] Performed By: #### 2 4321-2 ####[facility]ORATORYCLIA [id number] [address] CBC panel Auto (Bld)on 03-23 Erythrocyte distribution width (RBC) [Ratio] 19.2 % High 11.5-15.0 [facility] Comment on above: Order Comment: Speci men Type: BLOOD SPECIMENOrdering Facility: [facility] Address: [address] [place] [address] Performed By: #### 5 8410-2 ####[facility]ORATORYCLIA [id number] [address] Hematocrit (Bld) [Volume fraction] 25.3 % Low 39.0-51.0 [facility] Comment on above: Order Comment: Speci men Type: BLOOD SPECIMENOrdering Facility: [facility] Address: [address] [place] [address] Performed By: #### 5 8410-2 ####[facility]ORATORYCLIA [id number] [address] Hemoglobin (Bld) [Mass/Vol] 8.1 g/dL Low 13.0-17.0 [facility] Comment on above: Order Comment: Speci men Type: BLOOD SPECIMENOrdering Facility: [facility] Address: [address] [place] [address] Performed By: #### 5 8410-2 ####[facility]ORATORYCLIA [id number] [address] MCH (RBC) [Entitic mass] 28.6 pg Normal 26.0-34.0 [facility] Comment on above: Order Comment: Speci men Type: BLOOD SPECIMENOrdering Facility: [facility] Address: [address] [place] [address] Performed By: #### 5 8410-2 ####[facility]ORATORYCLIA [id number] [address] STATES OF [facility] MCHC (RBC) [Mass/Vol] 32.0 g/dL Normal 30.5-36.0 [facility] Comment on above: Order Comment: Speci men Type: BLOOD SPECIMENOrdering Facility: [facility] Address: [address] [place] [address] Performed By: #### 5 8410-2 ####[facility]ORATORYCLIA [id number] [address] [place] MCV (RBC) [Entitic vol] 89.4 fL Normal 80.0-100.0 [facility] Comment on above: Order Comment: Speci men Type: BLOOD SPECIMENOrdering Facility: [facility] Address: [address] [place] [address] Performed By: #### 5 8410-2 ####[facility]ORATORYCLIA [id number] [address] Nucleated RBC (Bld) [#/Vol] 10*3/uL Normal <0.01 [facility] Comment on above: Order Comment: Speci men Type: BLOOD SPECIMENOrdering Facility: [facility] Address: [address] [place] [address] Performed By: #### 5 8410-2 ####[facility]ORATORYCLIA [id number] [address] [place] Platelet mean volume (Bld) [Entitic vol] 9.1 fL Normal 9.0-12.7 [facility] Comment on above: Order Comment: Speci men Type: BLOOD SPECIMENOrdering Facility: [facility] Address: [address] [place] [address] Performed By: #### 5 8410-2 ####[facility]ORATORYCLIA [id number] [address] OF [facility] Platelets (Bld) [#/Vol] 525 10*3/uL High 150-400 [facility] Comment on above: Order Comment: Speci men Type: BLOOD SPECIMENOrdering Facility: [facility] Address: [address] [place] [address] Performed By: #### 5 8410-2 ####[facility]ORATORYCLIA [id number] [address] OF [facility] RBC (Bld) [#/Vol] 2.83 10*6/uL Low 4.20-6.00 [facility] Comment on above: Order Comment: Speci men Type: BLOOD SPECIMENOrdering Facility: [facility] Address: [address] [place] [address] Performed By: #### 5 8410-2 ####[facility]ORATORYCLIA [id number] [address] WBC (Bld) [#/Vol] 7.63 10*3/uL Normal 3.70-11.00 [facility] Comment on above: Order Comment: Speci men Type: BLOOD SPECIMENOrdering Facility: [facility] Address: [address] [place] [address] Performed By: #### 5 8410-2 ####[facility]ORATORYCLIA [id number] [address] OF [facility] CT CHEST W IVCONon CT CHEST W IVCON Normal [facility] XR CHEST 1V FRONTALon 2024 XR CHEST 1V FRONTAL Normal [facility] ALLIED HEALTHon 03-22-2025 ALLIED HEALTH Normal [facility] ANES POSTPROC EVALon 025 ANES POSTPROC EVAL Normal [facility] ANES PRE-OPon 03-22-2025 ANES PRE-OP Normal [facility] Basic metabolic 2000 panelon 03-22-2025 Anion gap [Moles/Vol] 20 mmol/L High 8-15 [facility] Comment on above: Order Comment: Speci men Type: BLOOD SPECIMENOrdering Facility: [facility] Address: [address] [place] [address] Performed By: #### 2 4321-2 ####[facility]ORATORYCLIA [id number] [place] [address] [place] Calcium [Mass/Vol] 8.2 mg/dL Low 8.5-10.2 [facility] Comment on above: Order Comment: Speci men Type: BLOOD SPECIMENOrdering Facility: [facility] Address: [address] [place] [address] Performed By: #### 2 4321-2 ####[facility] LABORATORYCLIA [id number] [place] [address] [place] Chloride [Moles/Vol] 96 mmol/L Low 98-107 [facility] Comment on above: Order Comment: Speci men Type: BLOOD SPECIMENOrdering Facility: [facility] Address: [address] [place] [address] Performed By: #### 2 4321-2 ####[facility]ORATORYCLIA [id number] [place] [address] [place] CO2 [Moles/Vol] 27 mmol/L Normal 22-30 [facility] Comment on above: Order Comment: Speci men Type: BLOOD SPECIMENOrdering Facility: [facility] Address: [address] [place] [address] Performed By: #### 2 4321-2 ####[facility]ORATORYCLIA [id number] [place] [address] [place] Creatinine [Mass/Vol] 0.36 mg/dL Low 0.73-1.22 [facility] Comment on above: Order Comment: Speci men Type: BLOOD SPECIMENOrdering Facility: [facility] Address: [address] [place] [address] Performed By: #### 2 4321-2 ####[facility]ORATORYCLIA [id number] [place] [address] [place] eGFRcr SerPlBld CKD-EPI 2020 126 mL/min/1.73m??? Normal >=60 [facility] Comment on above: Order Comment: Katie holman Type: BLOOD SPECIMENOrdering Facility: [facility] Address: [address] [place] [address] Result Comment: Lisa mated Glomerular Filtration Rate (eGFR) is calculated using the 2020 CKD-EPI creatinine equation. This equation utilizes serum creatinine, sex, and age as parameters. The creatinine assay has traceable calibration to isotope dilution-mass spectrometry. Refer to KDIGO guidelines for clinical interpretation. In patients with unstable renal function, e.g. those with acute kidney injury, the eGFR may not accurately reflect actual GFR. Performed By: #### 2 4321-2 ####[facility]ORATORYCLIA [id number] [place] [address] [place] Glucose [Mass/Vol] 108 mg/dL High 74-99 [facility] Comment on above: Order Comment: Katie holman Type: BLOOD SPECIMENOrdering Facility: [facility] Address: [address] [place] [address] Result Comment: The [place] [employer] (ADA) provides guidance for cutoff values for fasting glucose and random glucose. The ADA defines fasting as no caloric intake for at least 8 hours. Fasting plasma glucose results between 100 to 125 mg/dL indicate increased risk for diabetes (prediabetes).Fasting plasma glucose results greater than or equal to 126 mg/dL meet the criteria for diagnosis of diabetes. In the absence of unequivocal hyperglycemia, results should be confirmed by repeat testing. In a patient with classic symptoms of hyperglycemia or hyperglycemic crisis, random plasma glucose results greater than or equal to 200 mg/dL meet the criteria for diagnosis of diabetes.Reference: Standards of Medical Care in Diabetes 2016, [place] [employer]. Diabetes Care. 2016.39(Suppl 1). Performed By: #### 2 4321-2 ####[facility]ORATORYCLIA [id number] [place] [address] [place] Potassium [Moles/Vol] 3.8 mmol/L Normal 3.7-5.1 [facility] Comment on above: Order Comment: Katie holman Type: BLOOD SPECIMENOrdering Facility: [facility] Address: [address] [place] [address] Performed By: #### 2 4321-2 ####[facility]ORATORYCLIA [id number] [address] STATES [facility] Sodium [Moles/Vol] 143 mmol/L Normal 136-144 [facility] Comment on above: Order Comment: Speci men Type: BLOOD SPECIMENOrdering Facility: [facility] Address: [address] [place] [address] Performed By: #### 2 4321-2 ####[facility]ORATORYCLIA [id number] [address] STATES OF [facility] Urea nitrogen [Mass/Vol] 14 mg/dL Normal 9-24 [facility] Comment on above: Order Comment: Speci men Type: BLOOD SPECIMENOrdering Facility: [facility] Address: [address] [place] [address] Performed By: #### 2 4321-2 ####[facility]ORATORYCLIA [id number] [address] OF [facility] CASE MANAGEMon 03-22-2025 CASE MANAGEM Normal [facility] CBC panel Auto (Bld)on 03-22 Erythrocyte distribution width (RBC) [Ratio] 19.6 % High 11.5-15.0 [facility] Comment on above: Order Comment: Speci men Type: BLOOD SPECIMENOrdering Facility: [facility] Address: [address] [place] [address] Performed By: #### 5 8410-2 ####[facility]ORATORYCLIA [id number] [address] STATES [facility] Hematocrit (Bld) [Volume fraction] 25.4 % Low 39.0-51.0 [facility] Comment on above: Order Comment: Speci men Type: BLOOD SPECIMENOrdering Facility: [facility] Address: [address] [place] [address] Performed By: #### 5 8410-2 ####[facility]ORATORYCLIA [id number] [address] Hemoglobin (Bld) [Mass/Vol] 8.0 g/dL Low 13.0-17.0 [facility] Comment on above: Order Comment: Speci men Type: BLOOD SPECIMENOrdering Facility: [facility] Address: [address] [place] [address] Performed By: #### 5 8410-2 ####[facility]ORATORYCLIA [id number] [address] STATES [facility] MCH (RBC) [Entitic mass] 28.6 pg Normal 26.0-34.0 [facility] Comment on above: Order Comment: Speci men Type: BLOOD SPECIMENOrdering Facility: [facility] Address: [address] [place] [address] Performed By: #### 5 8410-2 ####[facility]ORATORYCLIA [id number] [address] OF [facility] MCHC (RBC) [Mass/Vol] 31.5 g/dL Normal 30.5-36.0 [facility] Comment on above: Order Comment: Speci men Type: BLOOD SPECIMENOrdering Facility: [facility] Address: [address] [place] [address] Performed By: #### 5 8410-2 ####[facility] LABORATORYCLIA [id number] [address] MCV (RBC) [Entitic vol] 90.7 fL Normal 80.0-100.0 [facility] Comment on above: Order Comment: Speci men Type: BLOOD SPECIMENOrdering Facility: [facility] Address: [address] [place] [address] Performed By: #### 5 8410-2 ####[facility] LABORATORYCLIA [id number] [address] Nucleated RBC (Bld) [#/Vol] 10*3/uL Normal <0.01 [facility] Comment on above: Order Comment: Speci men Type: BLOOD SPECIMENOrdering Facility: [facility] Address: [address] [place] [address] Performed By: #### 5 8410-2 ####[facility] LABORATORYCLIA [id number] [place] [address] [place] Platelet mean volume (Bld) [Entitic vol] 9.4 fL Normal 9.0-12.7 [facility] Comment on above: Order Comment: Speci men Type: BLOOD SPECIMENOrdering Facility: [facility] Address: [address] [place] [address] Performed By: #### 5 8410-2 ####[facility] LABORATORYCLIA [id number] [place] [address] [place] Platelets (Bld) [#/Vol] 535 10*3/uL High 150-400 [facility] Comment on above: Order Comment: Speci men Type: BLOOD SPECIMENOrdering Facility: [facility] Address: [address] [place] [address] Performed By: #### 5 8410-2 ####[facility]ORATORYCLIA [id number] [place] [address] [place] RBC (Bld) [#/Vol] 2.80 10*6/uL Low 4.20-6.00 [facility] Comment on above: Order Comment: Speci men Type: BLOOD SPECIMENOrdering Facility: [facility] Address: [address] [place] [address] Performed By: #### 5 8410-2 ####[facility]ORATORYCLIA [id number] [place] [address] [place] WBC (Bld) [#/Vol] 14.64 10*3/uL High 3.70-11.00 [facility] Comment on above: Order Comment: Speci men Type: BLOOD SPECIMENOrdering Facility: [facility] Address: [address] [place] [address] Performed By: #### 5 8410-2 ####[facility] LABORATORYCLIA [id number] [address] [place] NURSING PROGon 03-22-2025 NURSING PROG Normal [facility] Upper GI endoscopyon 025 Upper GI endoscopy Normal [facility] XR CHEST 1V FRONTALon 2024 XR CHEST 1V FRONTAL Normal [facility] ALLIED HEALTHon 03-21-2025 ALLIED HEALTH Normal [facility] Basic metabolic 2000 panelon 03-21-2025 Anion gap [Moles/Vol] 7 mmol/L Low 8-15 [facility] Comment on above: Order Comment: Speci men Type: BLOOD SPECIMENOrdering Facility: [facility] Address: [address] [place] [address] Performed By: #### 2 4321-2 ####[facility]ORATORYCLIA [id number] [place] [address] [place] Calcium [Mass/Vol] 8.4 mg/dL Low 8.5-10.2 [facility] Comment on above: Order Comment: Speci men Type: BLOOD SPECIMENOrdering Facility: [facility] Address: [address] [place] [address] Performed By: #### 2 4321-2 ####[facility]ORATORYCLIA [id number] [place] [address] [place] Chloride [Moles/Vol] 100 mmol/L Normal 98-107 [facility] Comment on above: Order Comment: Speci men Type: BLOOD SPECIMENOrdering Facility: [facility] Address: [address] [place] [address] Performed By: #### 2 4321-2 ####[facility]ORATORYCLIA [id number] [place] [address] [place] CO2 [Moles/Vol] 26 mmol/L Normal 22-30 [facility] Comment on above: Order Comment: Speci men Type: BLOOD SPECIMENOrdering Facility: [facility] Address: [address] [place] [address] Performed By: #### 2 4321-2 ####[facility]ORATORYCLIA [id number] [place] [address] [place] Creatinine [Mass/Vol] 0.33 mg/dL Low 0.73-1.22 [facility] Comment on above: Order Comment: Speci men Type: BLOOD SPECIMENOrdering Facility: [facility] Address: [address] [place] [address] Performed By: #### 2 4321-2 ####[facility] [id number] [address] [place] eGFRcr SerPlBld CKD-EPI 2020 129 mL/min/1.73m??? Normal >=60 [facility] Comment on above: Order Comment: Speci men Type: BLOOD SPECIMENOrdering Facility: [facility] Address: [address] [place] [address] Result Comment: Lisa mated Glomerular Filtration Rate (eGFR) is calculated using the 2020 CKD-EPI creatinine equation. This equation utilizes serum creatinine, sex, and age as parameters. The creatinine assay has traceable calibration to isotope dilution-mass spectrometry. Refer to KDIGO guidelines for clinical interpretation. In patients with unstable renal function, e.g. those with acute kidney injury, the eGFR may not accurately reflect actual GFR. Performed By: #### 2 4321-2 ####[facility] [id number] [place] [address] [place] Glucose [Mass/Vol] 108 mg/dL High 74-99 [facility] Comment on above: Order Comment: Speci men Type: BLOOD SPECIMENOrdering Facility: [facility] Address: [address] [place] [address] Result Comment: The [place] [employer] (ADA) provides guidance for cutoff values for fasting glucose and random glucose. The ADA defines fasting as no caloric intake for at least 8 hours. Fasting plasma glucose results between 100 to 125 mg/dL indicate increased risk for diabetes (prediabetes).Fasting plasma glucose results greater than or equal to 126 mg/dL meet the criteria for diagnosis of diabetes. In the absence of unequivocal hyperglycemia, results should be confirmed by repeat testing. In a patient with classic symptoms of hyperglycemia or hyperglycemic crisis, random plasma glucose results greater than or equal to 200 mg/dL meet the criteria for diagnosis of diabetes.Reference: Standards of Medical Care in Diabetes 2016, [place] [employer]. Diabetes Care. 2016.39(Suppl 1). Performed By: #### 2 4321-2 ####[facility] LABORATORYCLIA [id number] [place] [address] [place] Potassium [Moles/Vol] 3.7 mmol/L Normal 3.7-5.1 [facility] Comment on above: Order Comment: Speci men Type: BLOOD SPECIMENOrdering Facility: [facility] Address: [address] [place] [address] Performed By: #### 2 4321-2 ####[facility] LABORATORYCLIA [id number] [place] [address] [place] Sodium [Moles/Vol] 133 mmol/L Low 136-144 [facility] Comment on above: Order Comment: Speci men Type: BLOOD SPECIMENOrdering Facility: [facility] Address: [address] [place] [address] Performed By: #### 2 4321-2 ####[facility] LABORATORYCLIA [id number] [place] [address] [place] Urea nitrogen [Mass/Vol] 16 mg/dL Normal 9-24 [facility] Comment on above: Order Comment: Speci men Type: BLOOD SPECIMENOrdering Facility: [facility] Address: [address] [place] [address] Performed By: #### 2 4321-2 ####[facility]ATORYCLIA [id number] [address] [place] CASE MANAGEMon 03-21-2025 CASE MANAGEM Normal [facility] CBC panel Auto (Bld)on 03-21 Erythrocyte distribution width (RBC) [Ratio] 19.9 % High 11.5-15.0 [facility] Comment on above: Order Comment: Speci men Type: BLOOD SPECIMENOrdering Facility: [facility] Address: [address] [place] [address] Performed By: #### 5 8410-2 ####[facility]ORATORYCLIA [id number] [address] [place] Hematocrit (Bld) [Volume fraction] 25.2 % Low 39.0-51.0 [facility] Comment on above: Order Comment: Speci men Type: BLOOD SPECIMENOrdering Facility: [facility] Address: [address] [place] [address] Performed By: #### 5 8410-2 ####[facility]ORATORYCLIA [id number] [address] Hemoglobin (Bld) [Mass/Vol] 8.0 g/dL Low 13.0-17.0 [facility] Comment on above: Order Comment: Speci men Type: BLOOD SPECIMENOrdering Facility: [facility] Address: [address] [place] [address] Performed By: #### 5 8410-2 ####[facility] LABORATORYCLIA [id number] [address] OF [facility] MCH (RBC) [Entitic mass] 28.5 pg Normal 26.0-34.0 [facility] Comment on above: Order Comment: Speci men Type: BLOOD SPECIMENOrdering Facility: [facility] Address: [address] [place] [address] Performed By: #### 5 8410-2 ####[facility]ORATORYCLIA [id number] [address] MCHC (RBC) [Mass/Vol] 31.7 g/dL Normal 30.5-36.0 [facility] Comment on above: Order Comment: Speci men Type: BLOOD SPECIMENOrdering Facility: [facility] Address: [address] [place] [address] Performed By: #### 5 8410-2 ####[facility] LABORATORYCLIA [id number] [address] STATES [facility] MCV (RBC) [Entitic vol] 89.7 fL Normal 80.0-100.0 [facility] Comment on above: Order Comment: Speci men Type: BLOOD SPECIMENOrdering Facility: [facility] Address: [address] [place] [address] Performed By: #### 5 8410-2 ####[facility] LABORATORYCLIA [id number] [place] [address] [place] Nucleated RBC (Bld) [#/Vol] 10*3/uL Normal <0.01 [facility] Comment on above: Order Comment: Speci men Type: BLOOD SPECIMENOrdering Facility: [facility] Address: [address] [place] [address] Performed By: #### 5 8410-2 ####[facility]ORATORYCLIA [id number] [place] [address] [place] Platelet mean volume (Bld) [Entitic vol] 9.4 fL Normal 9.0-12.7 [facility] Comment on above: Order Comment: Speci men Type: BLOOD SPECIMENOrdering Facility: [facility] Address: [address] [place] [address] Performed By: #### 5 8410-2 ####[facility]ORATORYCLIA [id number] [address] [place] Platelets (Bld) [#/Vol] 473 10*3/uL High 150-400 [facility] Comment on above: Order Comment: Speci men Type: BLOOD SPECIMENOrdering Facility: [facility] Address: [address] [place] [address] Performed By: #### 5 8410-2 ####[facility]ORATORYCLIA [id number] [place] [address] [place] RBC (Bld) [#/Vol] 2.81 10*6/uL Low 4.20-6.00 [facility] Comment on above: Order Comment: Speci men Type: BLOOD SPECIMENOrdering Facility: [facility] Address: [address] [place] [address] Performed By: #### 5 8410-2 ####[facility]ORATORYCLIA [id number] [address] [place] WBC (Bld) [#/Vol] 22.34 10*3/uL High 3.70-11.00 [facility] Comment on above: Order Comment: Speci men Type: BLOOD SPECIMENOrdering Facility: [facility] Address: [address] [place] [address] Performed By: #### 5 8410-2 ####[facility]ORATORYCLIA [id number] [place] [address] [place] XR CHEST 1V FRONTALon 2024 XR CHEST 1V FRONTAL Normal [facility] ALLIED HEALTHon 03-20-2025 ALLIED HEALTH Normal [facility] Basic metabolic 2000 panelon 03-20-2025 Anion gap [Moles/Vol] 7 mmol/L Low 8-15 [facility] Comment on above: Order Comment: Speci men Type: BLOOD SPECIMENOrdering Facility: [facility] Address: [address] [place] [address] Performed By: #### 2 4321-2 ####[facility]ORATORYCLIA [id number] [place] [address] [place] Calcium [Mass/Vol] 8.2 mg/dL Low 8.5-10.2 [facility] Comment on above: Order Comment: Speci men Type: BLOOD SPECIMENOrdering Facility: [facility] Address: [address] [place] [address] Performed By: #### 2 4321-2 ####[facility]ORATORYCLIA [id number] [place] [address] [place] Chloride [Moles/Vol] 105 mmol/L Normal 98-107 [facility] Comment on above: Order Comment: Speci men Type: BLOOD SPECIMENOrdering Facility: [facility] Address: [address] [place] [address] Performed By: #### 2 4321-2 ####[facility]ORATORYCLIA [id number] [place] [address] [place] CO2 [Moles/Vol] 26 mmol/L Normal 22-30 [facility] Comment on above: Order Comment: Speci men Type: BLOOD SPECIMENOrdering Facility: [facility] Address: [address] [place] [address] Performed By: #### 2 4321-2 ####[facility]ORATORYCLIA [id number] [place] [address] [place] Creatinine [Mass/Vol] 0.36 mg/dL Low 0.73-1.22 [facility] Comment on above: Order Comment: Katie holman Type: BLOOD SPECIMENOrdering Facility: [facility] Address: [address] [place] [address] Performed By: #### 2 4321-2 ####[facility]ORATORYCLIA [id number] [address] eGFRcr SerPlBld CKD-EPI 2020 126 mL/min/1.73m??? Normal >=60 [facility] Comment on above: Order Comment: Katie holman Type: BLOOD SPECIMENOrdering Facility: [facility] Address: [address] [place] [address] Result Comment: Lisa mated Glomerular Filtration Rate (eGFR) is calculated using the 2020 CKD-EPI creatinine equation. This equation utilizes serum creatinine, sex, and age as parameters. The creatinine assay has traceable calibration to isotope dilution-mass spectrometry. Refer to KDIGO guidelines for clinical interpretation. In patients with unstable renal function, e.g. those with acute kidney injury, the eGFR may not accurately reflect actual GFR. Performed By: #### 2 4321-2 ####[facility]ORATORYCLIA [id number] [address] STATES OF [facility] Glucose [Mass/Vol] 118 mg/dL High 74-99 [facility] Comment on above: Order Comment: Katie holman Type: BLOOD SPECIMENOrdering Facility: [facility] Address: [address] [place] [address] Result Comment: The [place] [employer] (ADA) provides guidance for cutoff values for fasting glucose and random glucose. The ADA defines fasting as no caloric intake for at least 8 hours. Fasting plasma glucose results between 100 to 125 mg/dL indicate increased risk for diabetes (prediabetes).Fasting plasma glucose results greater than or equal to 126 mg/dL meet the criteria for diagnosis of diabetes. In the absence of unequivocal hyperglycemia, results should be confirmed by repeat testing. In a patient with classic symptoms of hyperglycemia or hyperglycemic crisis, random plasma glucose results greater than or equal to 200 mg/dL meet the criteria for diagnosis of diabetes.Reference: Standards of Medical Care in Diabetes 2016, [place] [employer]. Diabetes Care. 2016.39(Suppl 1). Performed By: #### 2 4321-2 ####[facility]ATORYCLIA [id number] [address] [place] Potassium [Moles/Vol] 3.5 mmol/L Low 3.7-5.1 [facility] Comment on above: Order Comment: Speci men Type: BLOOD SPECIMENOrdering Facility: [facility] Address: [address] [place] [address] Performed By: #### 2 4321-2 ####[facility]ORATORYCLIA [id number] [address] STATES OF [facility] Sodium [Moles/Vol] 138 mmol/L Normal 136-144 [facility] Comment on above: Order Comment: Speci men Type: BLOOD SPECIMENOrdering Facility: [facility] Address: [address] [place] [address] Performed By: #### 2 4321-2 ####[facility]ORATORYCLIA [id number] [address] STATES [facility] Urea nitrogen [Mass/Vol] 15 mg/dL Normal 9-24 [facility] Comment on above: Order Comment: Speci men Type: BLOOD SPECIMENOrdering Facility: [facility] Address: [address] [place] [address] Performed By: #### 2 4321-2 ####[facility]ORATORYCLIA [id number] [address] CBC panel Auto (Bld)on 03-20 Erythrocyte distribution width (RBC) [Ratio] 19.9 % High 11.5-15.0 [facility] Comment on above: Order Comment: Speci men Type: BLOOD SPECIMENOrdering Facility: [facility] Address: [address] [place] [address] Performed By: #### 5 8410-2 ####[facility]ORATORYCLIA [id number] [address] Hematocrit (Bld) [Volume fraction] 25.4 % Low 39.0-51.0 [facility] Comment on above: Order Comment: Speci men Type: BLOOD SPECIMENOrdering Facility: [facility] Address: [address] [place] [address] Performed By: #### 5 8410-2 ####[facility]ORATORYCLIA [id number] [address] STATES OF [facility] Hemoglobin (Bld) [Mass/Vol] 8.3 g/dL Low 13.0-17.0 [facility] Comment on above: Order Comment: Speci men Type: BLOOD SPECIMENOrdering Facility: [facility] Address: [address] [place] [address] Performed By: #### 5 8410-2 ####[facility]ATORYCLIA [id number] [address] [place] MCH (RBC) [Entitic mass] 29.1 pg Normal 26.0-34.0 [facility] Comment on above: Order Comment: Speci men Type: BLOOD SPECIMENOrdering Facility: [facility] Address: [address] [place] [address] Performed By: #### 5 8410-2 ####[facility]ATORYCLIA [id number] [address] [place] MCHC (RBC) [Mass/Vol] 32.7 g/dL Normal 30.5-36.0 [facility] Comment on above: Order Comment: Speci men Type: BLOOD SPECIMENOrdering Facility: [facility] Address: [address] [place] [address] Performed By: #### 5 8410-2 ####[facility]ATORYCLIA [id number] [address] [place] MCV (RBC) [Entitic vol] 89.1 fL Normal 80.0-100.0 [facility] Comment on above: Order Comment: Speci men Type: BLOOD SPECIMENOrdering Facility: [facility] Address: [address] [place] [address] Performed By: #### 5 8410-2 ####[facility]ORATORYCLIA [id number] [place] [address] [place] Nucleated RBC (Bld) [#/Vol] 10*3/uL Normal <0.01 [facility] Comment on above: Order Comment: Speci men Type: BLOOD SPECIMENOrdering Facility: [facility] Address: [address] [place] [address] Performed By: #### 5 8410-2 ####[facility]ORATORYCLIA [id number] [place] [address] [place] Platelet mean volume (Bld) [Entitic vol] 9.2 fL Normal 9.0-12.7 [facility] Comment on above: Order Comment: Speci men Type: BLOOD SPECIMENOrdering Facility: [facility] Address: [address] [place] [address] Performed By: #### 5 8410-2 ####[facility]ATORYCLIA [id number] [address] [place] Platelets (Bld) [#/Vol] 430 10*3/uL High 150-400 [facility] Comment on above: Order Comment: Speci men Type: BLOOD SPECIMENOrdering Facility: [facility] Address: [address] [place] [address] Performed By: #### 5 8410-2 ####[facility]ATORYCLIA [id number] [place] [address] [place] RBC (Bld) [#/Vol] 2.85 10*6/uL Low 4.20-6.00 [facility] Comment on above: Order Comment: Speci men Type: BLOOD SPECIMENOrdering Facility: [facility] Address: [address] [place] [address] Performed By: #### 5 8410-2 ####[facility]ATORYCLIA [id number] [address] [place] WBC (Bld) [#/Vol] 22.47 10*3/uL High 3.70-11.00 [facility] Comment on above: Order Comment: Speci men Type: BLOOD SPECIMENOrdering Facility: [facility] Address: [address] [place] [address] Performed By: #### 5 8410-2 ####[facility]ATORYCLIA [id number] [place] [address] [place] XR CHEST 1V FRONTALon 2024 XR CHEST 1V FRONTAL Normal [facility] Basic metabolic 2000 panelon 03-19-2025 Anion gap [Moles/Vol] 6 mmol/L Low 8-15 [facility] Comment on above: Order Comment: Speci men Type: BLOOD SPECIMENOrdering Facility: [facility] Address: [address] [place] [address] Performed By: #### 2 4321-2 ####[facility]ATORYCLIA [id number] [place] [address] [place] Calcium [Mass/Vol] 8.3 mg/dL Low 8.5-10.2 [facility] Comment on above: Order Comment: Speci men Type: BLOOD SPECIMENOrdering Facility: [facility] Address: [address] [place] [address] Performed By: #### 2 4321-2 ####[facility]ORATORYCLIA [id number] [place] [address] [place] Chloride [Moles/Vol] 104 mmol/L Normal 98-107 [facility] Comment on above: Order Comment: Speci men Type: BLOOD SPECIMENOrdering Facility: [facility] Address: [address] [place] [address] Performed By: #### 2 4321-2 ####[facility]ORATORYCLIA [id number] [place] [address] [place] CO2 [Moles/Vol] 27 mmol/L Normal 22-30 [facility] Comment on above: Order Comment: Speci men Type: BLOOD SPECIMENOrdering Facility: [facility] Address: [address] [place] [address] Performed By: #### 2 4321-2 ####[facility]ORATORYCLIA [id number] [place] [address] [place] Creatinine [Mass/Vol] 0.44 mg/dL Low 0.73-1.22 [facility] Comment on above: Order Comment: Katie river Type: BLOOD SPECIMENOrdering Facility: [facility] Address: [address] [place] [address] Performed By: #### 2 4321-2 ####[facility] LABORATORYCLIA [id number] [address] eGFRcr SerPlBld CKD-EPI 2020 118 mL/min/1.73m??? Normal >=60 [facility] Comment on above: Order Comment: Katie river Type: BLOOD SPECIMENOrdering Facility: [facility] Address: [address] [place] [address] Result Comment: Lisa mated Glomerular Filtration Rate (eGFR) is calculated using the 2020 CKD-EPI creatinine equation. This equation utilizes serum creatinine, sex, and age as parameters. The creatinine assay has traceable calibration to isotope dilution-mass spectrometry. Refer to KDIGO guidelines for clinical interpretation. In patients with unstable renal function, e.g. those with acute kidney injury, the eGFR may not accurately reflect actual GFR. Performed By: #### 2 4321-2 ####[facility]ORATORYCLIA [id number] [address] STATES OF [facility] Glucose [Mass/Vol] 123 mg/dL High 74-99 [facility] Comment on above: Order Comment: Katie river Type: BLOOD SPECIMENOrdering Facility: [facility] Address: [address] [place] [address] Result Comment: The [place] [employer] (ADA) provides guidance for cutoff values for fasting glucose and random glucose. The ADA defines fasting as no caloric intake for at least 8 hours. Fasting plasma glucose results between 100 to 125 mg/dL indicate increased risk for diabetes (prediabetes).Fasting plasma glucose results greater than or equal to 126 mg/dL meet the criteria for diagnosis of diabetes. In the absence of unequivocal hyperglycemia, results should be confirmed by repeat testing. In a patient with classic symptoms of hyperglycemia or hyperglycemic crisis, random plasma glucose results greater than or equal to 200 mg/dL meet the criteria for diagnosis of diabetes.Reference: Standards of Medical Care in Diabetes 2016, [place] [employer]. Diabetes Care. 2016.39(Suppl 1). Performed By: #### 2 4321-2 ####[facility] LABORATORYCLIA [id number] [address] STATES OF [facility] Potassium [Moles/Vol] 3.6 mmol/L Low 3.7-5.1 [facility] Comment on above: Order Comment: Speci men Type: BLOOD SPECIMENOrdering Facility: [facility] Address: [address] [place] [address] Performed By: #### 2 4321-2 ####[facility]ORATORYCLIA [id number] [address] Sodium [Moles/Vol] 137 mmol/L Normal 136-144 [facility] Comment on above: Order Comment: Aleshai men Type: BLOOD SPECIMENOrdering Facility: [facility] Address: [address] [place] [address] Performed By: #### 2 4321-2 ####[facility]ORATORYCLIA [id number] [address] Urea nitrogen [Mass/Vol] 14 mg/dL Normal 9-24 [facility] Comment on above: Order Comment: Speci men Type: BLOOD SPECIMENOrdering Facility: [facility] Address: [address] [place] [address] Performed By: #### 2 4321-2 ####[facility]ORATORYCLIA [id number] [address] CBC panel Auto (Bld)on 03-19 Erythrocyte distribution width (RBC) [Ratio] 19.8 % High 11.5-15.0 [facility] Comment on above: Order Comment: Speci men Type: BLOOD SPECIMENOrdering Facility: [facility] Address: [address] [place] [address] Performed By: #### 5 8410-2 ####[facility]ORATORYCLIA [id number] [address] Hematocrit (Bld) [Volume fraction] 28.3 % Low 39.0-51.0 [facility] Comment on above: Order Comment: Speci men Type: BLOOD SPECIMENOrdering Facility: [facility] Address: [address] [place] [address] Performed By: #### 5 8410-2 ####[facility]ORATORYCLIA [id number] [address] STATES OF [facility] Hemoglobin (Bld) [Mass/Vol] 9.3 g/dL Low 13.0-17.0 [facility] Comment on above: Order Comment: Speci men Type: BLOOD SPECIMENOrdering Facility: [facility] Address: [address] [place] [address] Performed By: #### 5 8410-2 ####[facility]ORATORYCLIA [id number] [address] [place] MCH (RBC) [Entitic mass] 29.2 pg Normal 26.0-34.0 [facility] Comment on above: Order Comment: Speci men Type: BLOOD SPECIMENOrdering Facility: [facility] Address: [address] [place] [address] Performed By: #### 5 8410-2 ####[facility] LABORATORYCLIA [id number] [address] [place] MCHC (RBC) [Mass/Vol] 32.9 g/dL Normal 30.5-36.0 [facility] Comment on above: Order Comment: Speci men Type: BLOOD SPECIMENOrdering Facility: [facility] Address: [address] [place] [address] Performed By: #### 5 8410-2 ####[facility]ORATORYCLIA [id number] [address] [place] MCV (RBC) [Entitic vol] 89.0 fL Normal 80.0-100.0 [facility] Comment on above: Order Comment: Speci men Type: BLOOD SPECIMENOrdering Facility: [facility] Address: [address] [place] [address] Performed By: #### 5 8410-2 ####[facility] LABORATORYCLIA [id number] [place] [address] [place] Nucleated RBC (Bld) [#/Vol] 10*3/uL Normal <0.01 [facility] Comment on above: Order Comment: Speci men Type: BLOOD SPECIMENOrdering Facility: [facility] Address: [address] [place] [address] Performed By: #### 5 8410-2 ####[facility] LABORATORYCLIA [id number] [address] [place] Platelet mean volume (Bld) [Entitic vol] 9.1 fL Normal 9.0-12.7 [facility] Comment on above: Order Comment: Speci men Type: BLOOD SPECIMENOrdering Facility: [facility] Address: [address] [place] [address] Performed By: #### 5 8410-2 ####[facility] LABORATORYCLIA [id number] [address] [place] Platelets (Bld) [#/Vol] 438 10*3/uL High 150-400 [facility] Comment on above: Order Comment: Speci men Type: BLOOD SPECIMENOrdering Facility: [facility] Address: [address] [place] [address] Performed By: #### 5 8410-2 ####[facility]ATORYCLIA [id number] [address] [place] RBC (Bld) [#/Vol] 3.18 10*6/uL Low 4.20-6.00 [facility] Comment on above: Order Comment: Speci men Type: BLOOD SPECIMENOrdering Facility: [facility] Address: [address] [place] [address] Performed By: #### 5 8410-2 ####[facility]ATORYCLIA [id number] [address] [place] WBC (Bld) [#/Vol] 21.31 10*3/uL High 3.70-11.00 [facility] Comment on above: Order Comment: Speci men Type: BLOOD SPECIMENOrdering Facility: [facility] Address: [address] [place] [address] Performed By: #### 5 8410-2 ####[facility] HEALTH LABORATORYCLIA [id number] [address] STATES OF [facility] XR CHEST 1V FRONTALon 2024 XR CHEST 1V FRONTAL Normal [facility] CBC panel Auto (Bld)on 03-18 Erythrocyte distribution width (RBC) [Ratio] 19.9 % High 11.5-15.0 [facility] Comment on above: Order Comment: Speci men Type: BLOOD SPECIMENOrdering Facility: [facility] Address: [address] [place] [address] Performed By: #### 5 8410-2 ####[facility] LABORATORYCLIA [id number] [address] STATES [facility] Hematocrit (Bld) [Volume fraction] 28.6 % Low 39.0-51.0 [facility] Comment on above: Order Comment: Speci men Type: BLOOD SPECIMENOrdering Facility: [facility] Address: [address] [place] [address] Performed By: #### 5 8410-2 ####[facility] LABORATORYCLIA [id number] [address] STATES [facility] Hemoglobin (Bld) [Mass/Vol] 9.3 g/dL Low 13.0-17.0 [facility] Comment on above: Order Comment: Speci men Type: BLOOD SPECIMENOrdering Facility: [facility] Address: [address] [place] [address] Performed By: #### 5 8410-2 ####[facility] LABORATORYCLIA [id number] [address] STATES [facility] MCH (RBC) [Entitic mass] 28.7 pg Normal 26.0-34.0 [facility] Comment on above: Order Comment: Speci men Type: BLOOD SPECIMENOrdering Facility: [facility] Address: [address] [place] [address] Performed By: #### 5 8410-2 ####[facility] LABORATORYCLIA [id number] [address] STATES OF [facility] MCHC (RBC) [Mass/Vol] 32.5 g/dL Normal 30.5-36.0 [facility] Comment on above: Order Comment: Speci men Type: BLOOD SPECIMENOrdering Facility: [facility] Address: [address] [place] [address] Performed By: #### 5 8410-2 ####[facility] LABORATORYCLIA [id number] [address] [place] MCV (RBC) [Entitic vol] 88.3 fL Normal 80.0-100.0 [facility] Comment on above: Order Comment: Speci men Type: BLOOD SPECIMENOrdering Facility: [facility] Address: [address] [place] [address] Performed By: #### 5 8410-2 ####[facility] LABORATORYCLIA [id number] [address] Nucleated RBC (Bld) [#/Vol] 10*3/uL Normal <0.01 [facility] Comment on above: Order Comment: Speci men Type: BLOOD SPECIMENOrdering Facility: [facility] Address: [address] [place] [address] Performed By: #### 5 8410-2 ####[facility] LABORATORYCLIA [id number] [address] [place] Platelet mean volume (Bld) [Entitic vol] 9.3 fL Normal 9.0-12.7 [facility] Comment on above: Order Comment: Speci men Type: BLOOD SPECIMENOrdering Facility: [facility] Address: [address] [place] [address] Performed By: #### 5 8410-2 ####[facility] LABORATORYCLIA [id number] [address] [place] Platelets (Bld) [#/Vol] 431 10*3/uL High 150-400 [facility] Comment on above: Order Comment: Speci men Type: BLOOD SPECIMENOrdering Facility: [facility] Address: [address] [place] [address] Performed By: #### 5 8410-2 ####[facility] LABORATORYCLIA [id number] [address] RBC (Bld) [#/Vol] 3.24 10*6/uL Low 4.20-6.00 [facility] Comment on above: Order Comment: Speci men Type: BLOOD SPECIMENOrdering Facility: [facility] Address: [address] [place] [address] Performed By: #### 5 8410-2 ####[facility] LABORATORYCLIA [id number] [address] WBC (Bld) [#/Vol] 20.34 10*3/uL High 3.70-11.00 [facility] Comment on above: Order Comment: Speci men Type: BLOOD SPECIMENOrdering Facility: [facility] Address: [address] [place] [address] Performed By: #### 5 8410-2 ####[facility] LABORATORYCLIA [id number] [address] Comprehensive metabolic 2000 panelon 03-18-2025 Albumin [Mass/Vol] 2.1 g/dL Low 3.9-4.9 [facility] Comment on above: Order Comment: Speci men Type: BLOOD SPECIMENOrdering Facility: [facility] Address: [address] [place] [address] Performed By: #### 2 4323-8 ####[facility] LABORATORYCLIA [id number] [address] ALP [Catalytic activity/Vol] 192 U/L High 38-113 [facility] Comment on above: Order Comment: Speci men Type: BLOOD SPECIMENOrdering Facility: [facility] Address: [address] [place] [address] Performed By: #### 2 4323-8 ####[facility] LABORATORYCLIA [id number] [address] [place] ALT With P-5'-P [Catalytic activity/Vol] 10 U/L Normal 10-54 [facility] Comment on above: Order Comment: Speci men Type: BLOOD SPECIMENOrdering Facility: [facility] Address: [address] [place] [address] Performed By: #### 2 4323-8 ####[facility] LABORATORYCLIA [id number] [place] [address] [place] Anion gap [Moles/Vol] 8 mmol/L Normal 8-15 [facility] Comment on above: Order Comment: Speci men Type: BLOOD SPECIMENOrdering Facility: [facility] Address: [address] [place] [address] Performed By: #### 2 4323-8 ####[facility] LABORATORYCLIA [id number] [address] [place] AST With P-5'-P [Catalytic activity/Vol] 17 U/L Normal 14-40 [facility] Comment on above: Order Comment: Speci men Type: BLOOD SPECIMENOrdering Facility: [facility] Address: [address] [place] [address] Performed By: #### 2 4323-8 ####[facility] LABORATORYCLIA [id number] [place] [address] [place] Bilirubin [Mass/Vol] 0.3 mg/dL Normal 0.2-1.3 [facility] Comment on above: Order Comment: Speci men Type: BLOOD SPECIMENOrdering Facility: [facility] Address: [address] [place] [address] Performed By: #### 2 4323-8 ####[facility] LABORATORYCLIA [id number] [address] [place] Calcium [Mass/Vol] 8.3 mg/dL Low 8.5-10.2 [facility] Comment on above: Order Comment: Speci men Type: BLOOD SPECIMENOrdering Facility: [facility] Address: [address] [place] [address] Performed By: #### 2 4323-8 ####[facility] LABORATORYCLIA [id number] [place] [address] [place] Chloride [Moles/Vol] 101 mmol/L Normal 98-107 [facility] Comment on above: Order Comment: Speci men Type: BLOOD SPECIMENOrdering Facility: [facility] Address: [address] [place] [address] Performed By: #### 2 4323-8 ####[facility] LABORATORYCLIA [id number] [address] [place] CO2 [Moles/Vol] 26 mmol/L Normal 22-30 [facility] Comment on above: Order Comment: Speci men Type: BLOOD SPECIMENOrdering Facility: [facility] Address: [address] [place] [address] Performed By: #### 2 4323-8 ####[facility] LABORATORYCLIA [id number] [address] STATES OF [facility] Creatinine [Mass/Vol] 0.39 mg/dL Low 0.73-1.22 [facility] Comment on above: Order Comment: Speci men Type: BLOOD SPECIMENOrdering Facility: [facility] Address: [address] [place] [address] Performed By: #### 2 4323-8 ####[facility] LABORATORYCLIA [id number] [address] [place] eGFRcr SerPlBld CKD-EPI 2020 123 mL/min/1.73m??? Normal >=60 [facility] Comment on above: Order Comment: Speci men Type: BLOOD SPECIMENOrdering Facility: [facility] Address: [address] [place] [address] Result Comment: Lisa mated Glomerular Filtration Rate (eGFR) is calculated using the 2020 CKD-EPI creatinine equation. This equation utilizes serum creatinine, sex, and age as parameters. The creatinine assay has traceable calibration to isotope dilution-mass spectrometry. Refer to KDIGO guidelines for clinical interpretation. In patients with unstable renal function, e.g. those with acute kidney injury, the eGFR may not accurately reflect actual GFR. Performed By: #### 2 4323-8 ####[facility] LABORATORYCLIA [id number] [place] [address] [place] Glucose [Mass/Vol] 120 mg/dL High 74-99 [facility] Comment on above: Order Comment: Speci men Type: BLOOD SPECIMENOrdering Facility: [facility] Address: [address] [place] [address] Result Comment: The [place] [employer] (ADA) provides guidance for cutoff values for fasting glucose and random glucose. The ADA defines fasting as no caloric intake for at least 8 hours. Fasting plasma glucose results between 100 to 125 mg/dL indicate increased risk for diabetes (prediabetes).Fasting plasma glucose results greater than or equal to 126 mg/dL meet the criteria for diagnosis of diabetes. In the absence of unequivocal hyperglycemia, results should be confirmed by repeat testing. In a patient with classic symptoms of hyperglycemia or hyperglycemic crisis, random plasma glucose results greater than or equal to 200 mg/dL meet the criteria for diagnosis of diabetes.Reference: Standards of Medical Care in Diabetes 2016, [place] [employer]. Diabetes Care. 2016.39(Suppl 1). Performed By: #### 2 4323-8 ####[facility] LABORATORYCLIA [id number] [place] [address] [place] Potassium [Moles/Vol] 3.7 mmol/L Normal 3.7-5.1 [facility] Comment on above: Order Comment: Speci men Type: BLOOD SPECIMENOrdering Facility: [facility] Address: [address] [place] [address] Performed By: #### 2 4323-8 ####[facility] LABORATORYCLIA [id number] [place] [id number] [place] Protein [Mass/Vol] 6.0 g/dL Low 6.3-8.0 [facility] Comment on above: Order Comment: Speci men Type: BLOOD SPECIMENOrdering Facility: [facility] Address: [address] [place] [address] Performed By: #### 2 4323-8 ####[facility] LABORATORYCLIA [id number] [place] [address] [place] Sodium [Moles/Vol] 135 mmol/L Low 136-144 [facility] Comment on above: Order Comment: Speci men Type: BLOOD SPECIMENOrdering Facility: [facility] Address: [address] [place] [address] Performed By: #### 2 4323-8 ####[facility] LABORATORYCLIA [id number] [address] [place] Urea nitrogen [Mass/Vol] 10 mg/dL Normal 9- [facility] Comment on above: Order Comment: Speci men Type: BLOOD SPECIMENOrdering Facility: [facility] Address: [address] [place] [address] Performed By: #### 2 4323-8 ####[facility] LABORATORYCLIA [id number] [place] [address] [place] XR CHEST 1V FRONTALon 2024 XR CHEST 1V FRONTAL Normal [facility] ALLIED HEALTHon 03-17-2025 ALLIED HEALTH Normal [facility] BRIEF OP NOTon 03-17-2025 BRIEF OP NOT Normal [facility] Bacteria Fld Culton 03-17-20 25 Bacteria identified Cx Nom (Body fld) Abnormal [facility] Comment on above: Performed By: #### 1 1475-1 ####[facility] LABCLIA [id number] [place] [address] [place]#### 611-4, 635-3 ####[facility] LABORATORYCLIA [id number] [address] [place] Bacteria Spec Anaerobe Culto n 03-17-2025 Bacteria identified Anaer cx Nom (Unsp spec) Negative Normal [facility] Comment on above: Performed By: #### 1 1475-1 ####[facility] LABCLIA [id number] [place] [address] [place]#### 611-4, 635-3 ####[facility] LABORATORYCLIA [id number] [place] [address] [place] Basic metabolic 2000 panelon 03-17-2025 Anion gap [Moles/Vol] 8 mmol/L Normal 8-15 [facility] Comment on above: Order Comment: Speci men Type: BLOOD SPECIMENOrdering Facility: [facility] Address: [address] [place] [address] Performed By: #### 2 4321-2 ####[facility] LABORATORYCLIA [id number] [place] [address] [place] Calcium [Mass/Vol] 8.4 mg/dL Low 8.5-10.2 [facility] Comment on above: Order Comment: Speci men Type: BLOOD SPECIMENOrdering Facility: [facility] Address: [address] [place] [address] Performed By: #### 2 4321-2 ####[facility] LABORATORYCLIA [id number] [place] [address] [place] Chloride [Moles/Vol] 100 mmol/L Normal 98-107 [facility] Comment on above: Order Comment: Speci men Type: BLOOD SPECIMENOrdering Facility: [facility] Address: [address] [place] [address] Performed By: #### 2 4321-2 ####[facility] LABORATORYCLIA [id number] [place] [address] [place] CO2 [Moles/Vol] 27 mmol/L Normal 22-30 [facility] Comment on above: Order Comment: Speci men Type: BLOOD SPECIMENOrdering Facility: [facility] Address: [address] [place] [address] Performed By: #### 2 4321-2 ####[facility] LABORATORYCLIA [id number] [place] [address] [place] Creatinine [Mass/Vol] 0.46 mg/dL Low 0.73-1.22 [facility] Comment on above: Order Comment: Speci men Type: BLOOD SPECIMENOrdering Facility: [facility] Address: [address] [place] [address] Performed By: #### 2 4321-2 ####[facility] LABORATORYCLIA [id number] [place] [address] [place] eGFRcr SerPlBld CKD-EPI 2020 117 mL/min/1.73m??? Normal >=60 [facility] Comment on above: Order Comment: Katie holman Type: BLOOD SPECIMENOrdering Facility: [facility] Address: [address] [place] [address] Result Comment: Lisa mated Glomerular Filtration Rate (eGFR) is calculated using the 2020 CKD-EPI creatinine equation. This equation utilizes serum creatinine, sex, and age as parameters. The creatinine assay has traceable calibration to isotope dilution-mass spectrometry. Refer to KDIGO guidelines for clinical interpretation. In patients with unstable renal function, e.g. those with acute kidney injury, the eGFR may not accurately reflect actual GFR. Performed By: #### 2 4321-2 ####[facility]ENTERIA [id number] [place] [address] [place] Glucose [Mass/Vol] 88 mg/dL Normal 74-99 [facility] Comment on above: Order Comment: Katie holman Type: BLOOD SPECIMENOrdering Facility: [facility] Address: [address] [place] [address] Result Comment: The [place] [employer] (ADA) provides guidance for cutoff values for fasting glucose and random glucose. The ADA defines fasting as no caloric intake for at least 8 hours. Fasting plasma glucose results between 100 to 125 mg/dL indicate increased risk for diabetes (prediabetes).Fasting plasma glucose results greater than or equal to 126 mg/dL meet the criteria for diagnosis of diabetes. In the absence of unequivocal hyperglycemia, results should be confirmed by repeat testing. In a patient with classic symptoms of hyperglycemia or hyperglycemic crisis, random plasma glucose results greater than or equal to 200 mg/dL meet the criteria for diagnosis of diabetes.Reference: Standards of Medical Care in Diabetes 2016, [place] [employer]. Diabetes Care. 2016.39(Suppl 1). Performed By: #### 2 4321-2 ####[facility] LABORATORYCLIA [id number] [place] [id number] [place] Potassium [Moles/Vol] 3.6 mmol/L Low 3.7-5.1 [facility] Comment on above: Order Comment: Speci men Type: BLOOD SPECIMENOrdering Facility: [facility] Address: [address] [place] [address] Performed By: #### 2 4321-2 ####[facility] LABORATORYCLIA [id number] [address] [place] Sodium [Moles/Vol] 135 mmol/L Low 136-144 [facility] Comment on above: Order Comment: Speci men Type: BLOOD SPECIMENOrdering Facility: [facility] Address: [address] [place] [address] Performed By: #### 2 4321-2 ####[facility] LABORATORYCLIA [id number] [address] [place] Urea nitrogen [Mass/Vol] 11 mg/dL Normal 9-24 [facility] Comment on above: Order Comment: Speci men Type: BLOOD SPECIMENOrdering Facility: [facility] Address: [address] [place] [address] Performed By: #### 2 4321-2 ####[facility] LABORATORYCLIA [id number] [address] [place] CASE MANAGEMon 03-17-2025 CASE MANAGEM Normal [facility] CBC panel Auto (Bld)on 03-17 Erythrocyte distribution width (RBC) [Ratio] 20.0 % High 11.5-15.0 [facility] Comment on above: Order Comment: Speci men Type: BLOOD SPECIMENOrdering Facility: [facility] Address: [address] [place] [address] Performed By: #### 5 8410-2 ####[facility] LABORATORYCLIA [id number] [address] STATES [facility] Hematocrit (Bld) [Volume fraction] 28.6 % Low 39.0-51.0 [facility] Comment on above: Order Comment: Speci men Type: BLOOD SPECIMENOrdering Facility: [facility] Address: [address] [place] [address] Performed By: #### 5 8410-2 ####[facility] LABORATORYCLIA [id number] [address] Hemoglobin (Bld) [Mass/Vol] 9.0 g/dL Low 13.0-17.0 [facility] Comment on above: Order Comment: Speci men Type: BLOOD SPECIMENOrdering Facility: [facility] Address: [address] [place] [address] Performed By: #### 5 8410-2 ####[facility] LABORATORYCLIA [id number] [address] MCH (RBC) [Entitic mass] 28.4 pg Normal 26.0-34.0 [facility] Comment on above: Order Comment: Speci men Type: BLOOD SPECIMENOrdering Facility: [facility] Address: [address] [place] [address] Performed By: #### 5 8410-2 ####[facility] LABORATORYCLIA [id number] [address] MCHC (RBC) [Mass/Vol] 31.5 g/dL Normal 30.5-36.0 [facility] Comment on above: Order Comment: Speci men Type: BLOOD SPECIMENOrdering Facility: [facility] Address: [address] [place] [address] Performed By: #### 5 8410-2 ####[facility] LABORATORYCLIA [id number] [address] MCV (RBC) [Entitic vol] 90.2 fL Normal 80.0-100.0 [facility] Comment on above: Order Comment: Speci men Type: BLOOD SPECIMENOrdering Facility: [facility] Address: [address] [place] [address] Performed By: #### 5 8410-2 ####[facility] LABORATORYCLIA [id number] [address] Nucleated RBC (Bld) [#/Vol] 10*3/uL Normal <0.01 [facility] Comment on above: Order Comment: Speci men Type: BLOOD SPECIMENOrdering Facility: [facility] Address: [address] [place] [address] Performed By: #### 5 8410-2 ####[facility] LABORATORYCLIA [id number] [address] [place] Platelet mean volume (Bld) [Entitic vol] 9.4 fL Normal 9.0-12.7 [facility] Comment on above: Order Comment: Speci men Type: BLOOD SPECIMENOrdering Facility: [facility] Address: [address] [place] [address] Performed By: #### 5 8410-2 ####[facility] LABORATORYCLIA [id number] [address] [place] Platelets (Bld) [#/Vol] 399 10*3/uL Normal 150-400 [facility] Comment on above: Order Comment: Speci men Type: BLOOD SPECIMENOrdering Facility: [facility] Address: [address] [place] [address] Performed By: #### 5 8410-2 ####[facility] LABORATORYCLIA [id number] [place] [address] [place] RBC (Bld) [#/Vol] 3.17 10*6/uL Low 4.20-6.00 [facility] Comment on above: Order Comment: Speci men Type: BLOOD SPECIMENOrdering Facility: [facility] Address: [address] [place] [address] Performed By: #### 5 8410-2 ####[facility] LABORATORYCLIA [id number] [address] [place] WBC (Bld) [#/Vol] 18.37 10*3/uL High 3.70-11.00 [facility] Comment on above: Order Comment: Speci men Type: BLOOD SPECIMENOrdering Facility: [facility] Address: [address] [place] [address] Performed By: #### 5 8410-2 ####[facility] LABORATORYCLIA [id number] [place] [id number] [place] CT PLACEMENT CHEST TUBEon CT PLACEMENT CHEST TUBE Normal [facility] HISTORY PHYSICALon HISTORY PHYSICAL Normal [facility] Microorganism Spec Culton Microorganism identified Cx Nom (Unsp spec) ORGANISM ID: 1 Papitoomyces glabratus (also known as Adriane glabrata) Normal [facility] Comment on above: Performed By: #### 1 1475-1 ####[facility] LABCLIA [id number] [place] [address] [place]#### 611-4, 635-3 ####[facility] LABORATORYCLIA [id number] [place] [address] [place] NUTRITIONon 03-17-2025 NUTRITION Normal [facility] XR CHEST 1V FRONTALon 2024 XR CHEST 1V FRONTAL Normal [facility] ALLIED HEALTHon 03-16-2025 ALLIED HEALTH Normal [facility] ALLIED HEALTH Normal [facility] ANES POSTPROC EVALon 025 ANES POSTPROC EVAL Normal [facility] ANES PRE-OPon 03-16-2025 ANES PRE-OP Normal [facility] Basic metabolic 2000 panelon 03-16-2025 Anion gap [Moles/Vol] 10 mmol/L Normal 8-15 [facility] Comment on above: Order Comment: Speci men Type: BLOOD SPECIMENOrdering Facility: [facility] Address: [address] [place] [address] Performed By: #### 2 4321-2 ####[facility] LABORATORYCLIA [id number] [place] [address] [place] Calcium [Mass/Vol] 8.3 mg/dL Low 8.5-10.2 [facility] Comment on above: Order Comment: Speci men Type: BLOOD SPECIMENOrdering Facility: [facility] Address: [address] [place] [address] Performed By: #### 2 4321-2 ####[facility] LABORATORYCLIA [id number] [address] [place] Chloride [Moles/Vol] 99 mmol/L Normal 98-107 [facility] Comment on above: Order Comment: Speci men Type: BLOOD SPECIMENOrdering Facility: [facility] Address: [address] [place] [address] Performed By: #### 2 4321-2 ####[facility] LABORATORYCLIA [id number] [address] [place] CO2 [Moles/Vol] 30 mmol/L Normal 22-30 [facility] Comment on above: Order Comment: Speci men Type: BLOOD SPECIMENOrdering Facility: [facility] Address: [address] [place] [address] Performed By: #### 2 4321-2 ####[facility]ITALCLIA [id number] [address] STATES OF [facility] Creatinine [Mass/Vol] 0.45 mg/dL Low 0.73-1.22 [facility] Comment on above: Order Comment: Speci men Type: BLOOD SPECIMENOrdering Facility: [facility] Address: [address] [place] [address] Performed By: #### 2 4321-2 ####[facility] LABORATORYCLIA [id number] [address] eGFRcr SerPlBld CKD-EPI 2020 118 mL/min/1.73m??? Normal >=60 [facility] Comment on above: Order Comment: Speci men Type: BLOOD SPECIMENOrdering Facility: [facility] Address: [address] [place] [address] Result Comment: Lisa mated Glomerular Filtration Rate (eGFR) is calculated using the 2020 CKD-EPI creatinine equation. This equation utilizes serum creatinine, sex, and age as parameters. The creatinine assay has traceable calibration to isotope dilution-mass spectrometry. Refer to KDIGO guidelines for clinical interpretation. In patients with unstable renal function, e.g. those with acute kidney injury, the eGFR may not accurately reflect actual GFR. Performed By: #### 2 4321-2 ####[facility]ORATORYCLIA [id number] [place] [address] [place] Glucose [Mass/Vol] 93 mg/dL Normal 74-99 [facility] Comment on above: Order Comment: Spectania men Type: BLOOD SPECIMENOrdering Facility: [facility] Address: [address] [place] [address] Result Comment: The [place] [employer] (ADA) provides guidance for cutoff values for fasting glucose and random glucose. The ADA defines fasting as no caloric intake for at least 8 hours. Fasting plasma glucose results between 100 to 125 mg/dL indicate increased risk for diabetes (prediabetes).Fasting plasma glucose results greater than or equal to 126 mg/dL meet the criteria for diagnosis of diabetes. In the absence of unequivocal hyperglycemia, results should be confirmed by repeat testing. In a patient with classic symptoms of hyperglycemia or hyperglycemic crisis, random plasma glucose results greater than or equal to 200 mg/dL meet the criteria for diagnosis of diabetes.Reference: Standards of Medical Care in Diabetes 2016, [place] [employer]. Diabetes Care. 2016.39(Suppl 1). Performed By: #### 2 4321-2 ####[facility] LABORATORYCLIA [id number] [place] [address] [place] Potassium [Moles/Vol] 4.1 mmol/L Normal 3.7-5.1 [facility] Comment on above: Order Comment: Katie holman Type: BLOOD SPECIMENOrdering Facility: [facility] Address: [address] [place] [address] Performed By: #### 2 4321-2 ####[facility] LABORATORYCLIA [id number] [place] [address] [place] Sodium [Moles/Vol] 139 mmol/L Normal 136-144 [facility] Comment on above: Order Comment: Speci men Type: BLOOD SPECIMENOrdering Facility: [facility] Address: [address] [place] [address] Performed By: #### 2 4321-2 ####[facility] LABORATORYCLIA [id number] [place] [address] [place] Urea nitrogen [Mass/Vol] 15 mg/dL Normal 9-24 [facility] Comment on above: Order Comment: Speci men Type: BLOOD SPECIMENOrdering Facility: [facility] Address: [address] [place] [address] Performed By: #### 2 4321-2 ####[facility] LABORATORYCLIA [id number] [address] [place] CASE MANAGEMon 03-16-2025 CASE MANAGEM Normal [facility] CBC panel Auto (Bld)on 03-16 Erythrocyte distribution width (RBC) [Ratio] 20.2 % High 11.5-15.0 [facility] Comment on above: Order Comment: Speci men Type: BLOOD SPECIMENOrdering Facility: [facility] Address: [address] [place] [address] Performed By: #### 5 8410-2 ####[facility] LABORATORYCLIA [id number] [address] [place] Hematocrit (Bld) [Volume fraction] 30.6 % Low 39.0-51.0 [facility] Comment on above: Order Comment: Speci men Type: BLOOD SPECIMENOrdering Facility: [facility] Address: [address] [place] [address] Performed By: #### 5 8410-2 ####[facility] LABORATORYCLIA [id number] [address] [place] Hemoglobin (Bld) [Mass/Vol] 9.7 g/dL Low 13.0-17.0 [facility] Comment on above: Order Comment: Speci men Type: BLOOD SPECIMENOrdering Facility: [facility] Address: [address] [place] [address] Performed By: #### 5 8410-2 ####[facility] LABORATORYCLIA [id number] [address] [place] MCH (RBC) [Entitic mass] 29.3 pg Normal 26.0-34.0 [facility] Comment on above: Order Comment: Speci men Type: BLOOD SPECIMENOrdering Facility: [facility] Address: [address] [place] [address] Performed By: #### 5 8410-2 ####[facility] LABORATORYCLIA [id number] [address] STATES [facility] MCHC (RBC) [Mass/Vol] 31.7 g/dL Normal 30.5-36.0 [facility] Comment on above: Order Comment: Speci men Type: BLOOD SPECIMENOrdering Facility: [facility] Address: [address] [place] [address] Performed By: #### 5 8410-2 ####[facility] LABORATORYCLIA [id number] [address] [place] MCV (RBC) [Entitic vol] 92.4 fL Normal 80.0-100.0 [facility] Comment on above: Order Comment: Speci men Type: BLOOD SPECIMENOrdering Facility: [facility] Address: [address] [place] [address] Performed By: #### 5 8410-2 ####[facility] LABORATORYCLIA [id number] [address] Nucleated RBC (Bld) [#/Vol] 10*3/uL Normal <0.01 [facility] Comment on above: Order Comment: Speci men Type: BLOOD SPECIMENOrdering Facility: [facility] Address: [address] [place] [address] Performed By: #### 5 8410-2 ####[facility]ATORYCLIA [id number] [address] Platelet mean volume (Bld) [Entitic vol] 9.3 fL Normal 9.0-12.7 [facility] Comment on above: Order Comment: Speci men Type: BLOOD SPECIMENOrdering Facility: [facility] Address: [address] [place] [address] Performed By: #### 5 8410-2 ####[facility] LABORATORYCLIA [id number] [address] [place] Platelets (Bld) [#/Vol] 389 10*3/uL Normal 150-400 [facility] Comment on above: Order Comment: Speci men Type: BLOOD SPECIMENOrdering Facility: [facility] Address: [address] [place] [address] Performed By: #### 5 8410-2 ####[facility] LABORATORYCLIA [id number] [address] STATES OF [facility] RBC (Bld) [#/Vol] 3.31 10*6/uL Low 4.20-6.00 [facility] Comment on above: Order Comment: Speci men Type: BLOOD SPECIMENOrdering Facility: [facility] Address: [address] [place] [address] Performed By: #### 5 8410-2 ####[facility]ORATORYCLIA [id number] [address] OF [facility] WBC (Bld) [#/Vol] 19.47 10*3/uL High 3.70-11.00 [facility] Comment on above: Order Comment: Speci men Type: BLOOD SPECIMENOrdering Facility: [facility] Address: [address] [place] [address] Performed By: #### 5 8410-2 ####[facility] LABORATORYCLIA [id number] [address] [place] CT ABD/PEL W IVCONon 025 CT ABD/PEL W IVCON Normal [facility] CT CHEST W IVCONon 5 CT CHEST W IVCON Normal [facility] NURSING PROGon 03-16-2025 NURSING PROG Normal [facility] Upper GI endoscopyon 025 Upper GI endoscopy Normal [facility] XR CHEST 1V FRONTALon 2024 XR CHEST 1V FRONTAL Normal [facility] Basic metabolic 2000 panelon 03-15-2025 Anion gap [Moles/Vol] 7 mmol/L Low 8-15 [facility] Comment on above: Order Comment: Speci men Type: BLOOD SPECIMENOrdering Facility: [facility] Address: [address] [place] [address] Performed By: #### 2 4321-2 ####[facility]ORATORYCLIA [id number] [place] [address] [place] Calcium [Mass/Vol] 8.2 mg/dL Low 8.5-10.2 [facility] Comment on above: Order Comment: Speci men Type: BLOOD SPECIMENOrdering Facility: [facility] Address: [address] [place] [address] Performed By: #### 2 4321-2 ####[facility] LABORATORYCLIA [id number] [place] [address] [place] Chloride [Moles/Vol] 102 mmol/L Normal 98-107 [facility] Comment on above: Order Comment: Speci men Type: BLOOD SPECIMENOrdering Facility: [facility] Address: [address] [place] [address] Performed By: #### 2 4321-2 ####[facility]ORATORYCLIA [id number] [place] [address] [place] CO2 [Moles/Vol] 30 mmol/L Normal 22-30 [facility] Comment on above: Order Comment: Speci men Type: BLOOD SPECIMENOrdering Facility: [facility] Address: [address] [place] [address] Performed By: #### 2 4321-2 ####[facility]ORATORYCLIA [id number] [place] [address] [place] Creatinine [Mass/Vol] 0.40 mg/dL Low 0.73-1.22 [facility] Comment on above: Order Comment: Speci men Type: BLOOD SPECIMENOrdering Facility: [facility] Address: [address] [place] [address] Performed By: #### 2 4321-2 ####[facility]ORATORYCLIA [id number] [place] [address] [place] eGFRcr SerPlBld CKD-EPI 2020 122 mL/min/1.73m??? Normal >=60 [facility] Comment on above: Order Comment: Speci men Type: BLOOD SPECIMENOrdering Facility: [facility] Address: [address] [place] [address] Result Comment: Lisa mated Glomerular Filtration Rate (eGFR) is calculated using the 2020 CKD-EPI creatinine equation. This equation utilizes serum creatinine, sex, and age as parameters. The creatinine assay has traceable calibration to isotope dilution-mass spectrometry. Refer to KDIGO guidelines for clinical interpretation. In patients with unstable renal function, e.g. those with acute kidney injury, the eGFR may not accurately reflect actual GFR. Performed By: #### 2 4321-2 ####[facility]ORATORYCLIA [id number] [place] [address] [place] Glucose [Mass/Vol] 116 mg/dL High 74-99 [facility] Comment on above: Order Comment: Katie holman Type: BLOOD SPECIMENOrdering Facility: [facility] Address: [address] [place] [address] Result Comment: The [place] [employer] (ADA) provides guidance for cutoff values for fasting glucose and random glucose. The ADA defines fasting as no caloric intake for at least 8 hours. Fasting plasma glucose results between 100 to 125 mg/dL indicate increased risk for diabetes (prediabetes).Fasting plasma glucose results greater than or equal to 126 mg/dL meet the criteria for diagnosis of diabetes. In the absence of unequivocal hyperglycemia, results should be confirmed by repeat testing. In a patient with classic symptoms of hyperglycemia or hyperglycemic crisis, random plasma glucose results greater than or equal to 200 mg/dL meet the criteria for diagnosis of diabetes.Reference: Standards of Medical Care in Diabetes 2016, [place] [employer]. Diabetes Care. 2016.39(Suppl 1). Performed By: #### 2 4321-2 ####[facility]ORATORYCLIA [id number] [place] [address] [place] Potassium [Moles/Vol] 3.6 mmol/L Low 3.7-5.1 [facility] Comment on above: Order Comment: Katie holman Type: BLOOD SPECIMENOrdering Facility: [facility] Address: [address] [place] [id number] Performed By: #### 2 4321-2 ####[facility]ORATORYCLIA [id number] [place] [id number] [place] Sodium [Moles/Vol] 139 mmol/L Normal 136-144 [facility] Comment on above: Order Comment: Speci men Type: BLOOD SPECIMENOrdering Facility: [facility] Address: [address] [place] [address] Performed By: #### 2 4321-2 ####[facility]ORATORYCLIA [id number] [address] [place] Urea nitrogen [Mass/Vol] 15 mg/dL Normal 9-24 [facility] Comment on above: Order Comment: Speci men Type: BLOOD SPECIMENOrdering Facility: [facility] Address: [address] [place] [address] Performed By: #### 2 4321-2 ####[facility]ORATORYCLIA [id number] [address] CASE MANAGEMon 03-15-2025 CASE MANAGEM Normal [facility] CASE MANAGEM Normal [facility] CBC panel Auto (Bld)on 03-15 Erythrocyte distribution width (RBC) [Ratio] 20.1 % High 11.5-15.0 [facility] Comment on above: Order Comment: Speci men Type: BLOOD SPECIMENOrdering Facility: [facility] Address: [address] [place] [address] Performed By: #### 5 8410-2 ####[facility]ORATORYCLIA [id number] [address] STATES OF [facility] Hematocrit (Bld) [Volume fraction] 38.4 % Low 39.0-51.0 [facility] Comment on above: Order Comment: Speci men Type: BLOOD SPECIMENOrdering Facility: [facility] Address: [address] [place] [address] Performed By: #### 5 8410-2 ####[facility]ORATORYCLIA [id number] [address] [place] Hemoglobin (Bld) [Mass/Vol] 12.2 g/dL Low 13.0-17.0 [facility] Comment on above: Order Comment: Speci men Type: BLOOD SPECIMENOrdering Facility: [facility] Address: [address] [place] [address] Performed By: #### 5 8410-2 ####[facility]ORATORYCLIA [id number] [address] MCH (RBC) [Entitic mass] 28.8 pg Normal 26.0-34.0 [facility] Comment on above: Order Comment: Speci men Type: BLOOD SPECIMENOrdering Facility: [facility] Address: [address] [place] [address] Performed By: #### 5 8410-2 ####[facility]ORATORYCLIA [id number] [address] MCHC (RBC) [Mass/Vol] 31.8 g/dL Normal 30.5-36.0 [facility] Comment on above: Order Comment: Speci men Type: BLOOD SPECIMENOrdering Facility: [facility] Address: [address] [place] [address] Performed By: #### 5 8410-2 ####[facility]ORATORYCLIA [id number] [address] MCV (RBC) [Entitic vol] 90.6 fL Normal 80.0-100.0 [facility] Comment on above: Order Comment: Speci men Type: BLOOD SPECIMENOrdering Facility: [facility] Address: [address] [place] [address] Performed By: #### 5 8410-2 ####[facility]ATORYCLIA [id number] [address] Nucleated RBC (Bld) [#/Vol] 10*3/uL Normal <0.01 [facility] Comment on above: Order Comment: Speci men Type: BLOOD SPECIMENOrdering Facility: [facility] Address: [address] [place] [address] Performed By: #### 5 8410-2 ####[facility]ATORYCLIA [id number] [address] Platelet mean volume (Bld) [Entitic vol] 8.9 fL Low 9.0-12.7 [facility] Comment on above: Order Comment: Speci men Type: BLOOD SPECIMENOrdering Facility: [facility] Address: [address] [place] [address] Performed By: #### 5 8410-2 ####[facility]ORATORYCLIA [id number] [address] OF [facility] Platelets (Bld) [#/Vol] 290 10*3/uL Normal 150-400 [facility] Comment on above: Order Comment: Speci men Type: BLOOD SPECIMENOrdering Facility: [facility] Address: [address] [place] [address] Performed By: #### 5 8410-2 ####[facility]ORATORYCLIA [id number] [address] [place] RBC (Bld) [#/Vol] 4.24 10*6/uL Normal 4.20-6.00 [facility] Comment on above: Order Comment: Speci men Type: BLOOD SPECIMENOrdering Facility: [facility] Address: [address] [place] [address] Performed By: #### 5 8410-2 ####[facility]ORATORYCLIA [id number] [address] OF [facility] WBC (Bld) [#/Vol] 10.04 10*3/uL Normal 3.70-11.00 [facility] Comment on above: Order Comment: Speci men Type: BLOOD SPECIMENOrdering Facility: [facility] Address: [address] [place] [address] Performed By: #### 5 8410-2 ####[facility]ORATORYCLIA [id number] [address] [place] CONSULT PROGon 03-15-2025 CONSULT PROG Normal [facility] XR CHEST 1V FRONTALon 2024 XR CHEST 1V FRONTAL Normal [facility] Basic metabolic 2000 panelon 03-14-2025 Anion gap [Moles/Vol] 6 mmol/L Low 8-15 [facility] Comment on above: Order Comment: Speci men Type: BLOOD SPECIMENOrdering Facility: [facility] Address: [address] [id number] Performed By: #### 2 4321-2, 2776-07, ####[facility]ORATORYCLIA [id number] [place] [address] [place] Calcium [Mass/Vol] 8.6 mg/dL Normal 8.5-10.2 [facility] Comment on above: Order Comment: Speci men Type: BLOOD SPECIMENOrdering Facility: [facility] Address: [address] [place] [address] Performed By: #### 2 4321-2, 2776-07, ####[facility]ORATORYCLIA [id number] [place] [address] [place] Chloride [Moles/Vol] 102 mmol/L Normal 98-107 [facility] Comment on above: Order Comment: Speci men Type: BLOOD SPECIMENOrdering Facility: [facility] Address: [address] [place] [address] Performed By: #### 2 4321-2, 2776-07, ####[facility]ORATORYCLIA [id number] [place] [address] [place] CO2 [Moles/Vol] 28 mmol/L Normal 22-30 [facility] Comment on above: Order Comment: Speci men Type: BLOOD SPECIMENOrdering Facility: [facility] Address: [address] [place] [address] Performed By: #### 2 4321-2, 2776-07, ####[facility] LABORATORYCLIA [id number] [place] [address] [place] Creatinine [Mass/Vol] 0.51 mg/dL Low 0.73-1.22 [facility] Comment on above: Order Comment: Speci men Type: BLOOD SPECIMENOrdering Facility: [facility] Address: [address] [place] [id number] Performed By: #### 2 4321-2, 2776-07, ####[facility]ENTERIA [id number] [place] [address] [place] eGFRcr SerPlBld CKD-EPI 2020 113 mL/min/1.73m??? Normal >=60 [facility] Comment on above: Order Comment: Katie river Type: BLOOD SPECIMENOrdering Facility: [facility] Address: [address] [place] [address] Result Comment: Lisa mated Glomerular Filtration Rate (eGFR) is calculated using the 2020 CKD-EPI creatinine equation. This equation utilizes serum creatinine, sex, and age as parameters. The creatinine assay has traceable calibration to isotope dilution-mass spectrometry. Refer to KDIGO guidelines for clinical interpretation. In patients with unstable renal function, e.g. those with acute kidney injury, the eGFR may not accurately reflect actual GFR. Performed By: #### 2 4321-2, 2776-07, ####[facility] CENTERIA [id number] [place] [address] [place] [facility] Glucose [Mass/Vol] 122 mg/dL High 74-99 [facility] Comment on above: Order Comment: Katie holman Type: BLOOD SPECIMENOrdering Facility: [facility] Address: [address] [place] [address] Result Comment: The [place] [employer] (ADA) provides guidance for cutoff values for fasting glucose and random glucose. The ADA defines fasting as no caloric intake for at least 8 hours. Fasting plasma glucose results between 100 to 125 mg/dL indicate increased risk for diabetes (prediabetes).Fasting plasma glucose results greater than or equal to 126 mg/dL meet the criteria for diagnosis of diabetes. In the absence of unequivocal hyperglycemia, results should be confirmed by repeat testing. In a patient with classic symptoms of hyperglycemia or hyperglycemic crisis, random plasma glucose results greater than or equal to 200 mg/dL meet the criteria for diagnosis of diabetes.Reference: Standards of Medical Care in Diabetes 2016, [place] [employer]. Diabetes Care. 2016.39(Suppl 1). Performed By: #### 2 4321-2, 27701-17, ####[facility] CENTERIA [id number] [place] [address] [place] Potassium [Moles/Vol] 3.8 mmol/L Normal 3.7-5.1 [facility] Comment on above: Order Comment: Speci men Type: BLOOD SPECIMENOrdering Facility: [facility] Address: [address] [place] [address] Performed By: #### 2 4321-2, 2776-07, ####[facility] LABORATORYCLIA [id number] [address] STATES OF [facility] Sodium [Moles/Vol] 136 mmol/L Normal 136-144 [facility] Comment on above: Order Comment: Speci men Type: BLOOD SPECIMENOrdering Facility: [facility] Address: [address] [place] [address] Performed By: #### 2 4321-2, 2776-07, ####[facility]ORATORYCLIA [id number] [address] STATES OF [facility] Urea nitrogen [Mass/Vol] 16 mg/dL Normal 9-24 [facility] Comment on above: Order Comment: Speci men Type: BLOOD SPECIMENOrdering Facility: [facility] Address: [address] [place] [address] Performed By: #### 2 4321-2, 2776-07, ####[facility]ORATORYCLIA [id number] [address] [place] CBC panel Auto (Bld)on 03-14 Erythrocyte distribution width (RBC) [Ratio] 20.4 % High 11.5-15.0 [facility] Comment on above: Order Comment: Speci men Type: BLOOD SPECIMENOrdering Facility: [facility] Address: [address] [place] [address] Performed By: #### 5 8410-2 ####[facility]ORATORYCLIA [id number] [address] STATES OF [facility] Hematocrit (Bld) [Volume fraction] 30.3 % Low 39.0-51.0 [facility] Comment on above: Order Comment: Speci men Type: BLOOD SPECIMENOrdering Facility: [facility] Address: [address] [place] [address] Performed By: #### 5 8410-2 ####[facility]ORATORYCLIA [id number] [address] Hemoglobin (Bld) [Mass/Vol] 9.5 g/dL Low 13.0-17.0 [facility] Comment on above: Order Comment: Speci men Type: BLOOD SPECIMENOrdering Facility: [facility] Address: [address] [place] [address] Performed By: #### 5 8410-2 ####[facility] LABORATORYCLIA [id number] [address] OF [facility] MCH (RBC) [Entitic mass] 29.1 pg Normal 26.0-34.0 [facility] Comment on above: Order Comment: Speci men Type: BLOOD SPECIMENOrdering Facility: [facility] Address: [address] [place] [address] Performed By: #### 5 8410-2 ####[facility] LABORATORYCLIA [id number] [address] MCHC (RBC) [Mass/Vol] 31.4 g/dL Normal 30.5-36.0 [facility] Comment on above: Order Comment: Speci men Type: BLOOD SPECIMENOrdering Facility: [facility] Address: [address] [place] [address] Performed By: #### 5 8410-2 ####[facility] LABORATORYCLIA [id number] [address] STATES [facility] MCV (RBC) [Entitic vol] 92.7 fL Normal 80.0-100.0 [facility] Comment on above: Order Comment: Speci men Type: BLOOD SPECIMENOrdering Facility: [facility] Address: [address] [place] [address] Performed By: #### 5 8410-2 ####[facility] LABORATORYCLIA [id number] [address] Nucleated RBC (Bld) [#/Vol] 10*3/uL Normal <0.01 [facility] Comment on above: Order Comment: Speci men Type: BLOOD SPECIMENOrdering Facility: [facility] Address: [address] [place] [address] Performed By: #### 5 8410-2 ####[facility] LABORATORYCLIA [id number] [place] [address] [place] Platelet mean volume (Bld) [Entitic vol] 9.3 fL Normal 9.0-12.7 [facility] Comment on above: Order Comment: Speci men Type: BLOOD SPECIMENOrdering Facility: [facility] Address: [address] [place] [address] Performed By: #### 5 8410-2 ####[facility] LABORATORYCLIA [id number] [address] [place] Platelets (Bld) [#/Vol] 391 10*3/uL Normal 150-400 [facility] Comment on above: Order Comment: Speci men Type: BLOOD SPECIMENOrdering Facility: [facility] Address: [address] [place] [address] Performed By: #### 5 8410-2 ####[facility] LABORATORYCLIA [id number] [place] [address] [place] RBC (Bld) [#/Vol] 3.27 10*6/uL Low 4.20-6.00 [facility] Comment on above: Order Comment: Speci men Type: BLOOD SPECIMENOrdering Facility: [facility] Address: [address] [place] [address] Performed By: #### 5 8410-2 ####[facility] LABORATORYCLIA [id number] [place] [address] [place] WBC (Bld) [#/Vol] 12.83 10*3/uL High 3.70-11.00 [facility] Comment on above: Order Comment: Speci men Type: BLOOD SPECIMENOrdering Facility: [facility] Address: [address] [place] [address] Performed By: #### 5 8410-2 ####[facility] LABORATORYCLIA [id number] [place] [id number] [place] CONSULTon 03-14-2025 CONSULT Normal [facility] Calcium.ionized [Moles/Vol]o n 03-14-2025 Calcium.ionized (BldV) [Mass/Vol] 1.16 mmol/L Normal 1.08-1.30 [facility] Comment on above: Order Comment: Speci men Type: BLOOD SPECIMENOrdering Facility: [facility] Address: [address] [place] [address] Performed By: #### 1 995-0 ####[facility] LABORATORYCLIA [id number] [address] [place] Calcium.ionized adjusted to pH 7.4 (Bld) [Moles/Vol] 1.14 mmol/L Normal 1.08-1.30 [facility] Comment on above: Order Comment: Speci men Type: BLOOD SPECIMENOrdering Facility: [facility] Address: [address] [place] [address] Performed By: #### 1 995-0 ####[facility] LABORATORYCLIA [id number] [address] [place] Magnesium SerPl-mCncon 03-14 Magnesium [Mass/Vol] 1.7 mg/dL Normal 1.7-2.3 [facility] Comment on above: Order Comment: Speci men Type: BLOOD SPECIMENOrdering Facility: [facility] Address: [address] [place] [address] Performed By: #### 2 4321-2, 2777-1, 62647-3 ####[facility] LABORATORYCLIA [id number] [place] [address] [place] Phosphate SerPl-mCncon 03-14 Phosphate [Mass/Vol] 2.5 mg/dL Low 2.7-4.8 [facility] Comment on above: Order Comment: Speci men Type: BLOOD SPECIMENOrdering Facility: [facility] Address: [address] [place] [address] Performed By: #### 2 4321-2, 2776-, ####[facility] LABORATORYCLIA [id number] [place] [address] [place] XR CHEST 1V FRONTALon 2024 XR CHEST 1V FRONTAL Normal [facility] Basic metabolic 2000 panelon 03-13-2025 Anion gap [Moles/Vol] 10 mmol/L Normal 8-15 [facility] Comment on above: Order Comment: Speci men Type: BLOOD SPECIMENOrdering Facility: [facility] Address: [address] [place] [address] Performed By: #### 2 4321-2, , 2776-07 ####[facility] LABORATORYCLIA [id number] [place] [address] [place] Calcium [Mass/Vol] 8.6 mg/dL Normal 8.5-10.2 [facility] Comment on above: Order Comment: Speci men Type: BLOOD SPECIMENOrdering Facility: [facility] Address: [address] [place] [address] Performed By: #### 2 4321-2, , 2776-07 ####[facility] LABORATORYCLIA [id number] [place] [address] [place] Chloride [Moles/Vol] 104 mmol/L Normal 98-107 [facility] Comment on above: Order Comment: Speci men Type: BLOOD SPECIMENOrdering Facility: [facility] Address: [address] [place] [address] Performed By: #### 2 4321-2, , 2776-07 ####[facility] LABORATORYCLIA [id number] [place] [address] [place] CO2 [Moles/Vol] 24 mmol/L Normal 22-30 [facility] Comment on above: Order Comment: Speci men Type: BLOOD SPECIMENOrdering Facility: [facility] Address: [address] [place] [address] Performed By: #### 2 4321-2, , 2776-07 ####[facility] HOSPITALCLIA [id number] [place] [address] [place] [facility] Creatinine [Mass/Vol] 0.54 mg/dL Low 0.73-1.22 [facility] Comment on above: Order Comment: Katie holman Type: BLOOD SPECIMENOrdering Facility: [facility] Address: [address] [place] [address] Performed By: #### 2 4321-2, , 2776-07 ####[facility] HOSPITALCLIA [id number] [place] [address] [place] eGFRcr SerPlBld CKD-EPI 2020 111 mL/min/1.73m??? Normal >=60 [facility] Comment on above: Order Comment: Katie holman Type: BLOOD SPECIMENOrdering Facility: [facility] Address: [address] [place] [address] Result Comment: Lisa mated Glomerular Filtration Rate (eGFR) is calculated using the 2020 CKD-EPI creatinine equation. This equation utilizes serum creatinine, sex, and age as parameters. The creatinine assay has traceable calibration to isotope dilution-mass spectrometry. Refer to KDIGO guidelines for clinical interpretation. In patients with unstable renal function, e.g. those with acute kidney injury, the eGFR may not accurately reflect actual GFR. Performed By: #### 2 4321-2, , 2776-07 ####[facility]ENTER[facility] [id number] [place] [address] [place] Glucose [Mass/Vol] 116 mg/dL High 74-99 [facility] Comment on above: Order Comment: Katie river Type: BLOOD SPECIMENOrdering Facility: [facility] Address: [address] [place] [address] Result Comment: The [place] [employer] (ADA) provides guidance for cutoff values for fasting glucose and random glucose. The ADA defines fasting as no caloric intake for at least 8 hours. Fasting plasma glucose results between 100 to 125 mg/dL indicate increased risk for diabetes (prediabetes).Fasting plasma glucose results greater than or equal to 126 mg/dL meet the criteria for diagnosis of diabetes. In the absence of unequivocal hyperglycemia, results should be confirmed by repeat testing. In a patient with classic symptoms of hyperglycemia or hyperglycemic crisis, random plasma glucose results greater than or equal to 200 mg/dL meet the criteria for diagnosis of diabetes.Reference: Standards of Medical Care in Diabetes 2016, [place] [employer]. Diabetes Care. 2016.39(Suppl 1). Performed By: #### 2 4321-2, , 2776-07 ####[facility] LABORATORYCLIA [id number] [place] [address] [place] Potassium [Moles/Vol] 3.8 mmol/L Normal 3.7-5.1 [facility] Comment on above: Order Comment: Katie holman Type: BLOOD SPECIMENOrdering Facility: [facility] Address: [address] [place] [address] Performed By: #### 2 4321-2, , 2776-07 ####[facility] LABORATORYCLIA [id number] [place] [address] [place] Sodium [Moles/Vol] 138 mmol/L Normal 136-144 [facility] Comment on above: Order Comment: Katie holman Type: BLOOD SPECIMENOrdering Facility: [facility] Address: [address] [place] [address] Performed By: #### 2 4321-2, , 2776-07 ####[facility] LABORATORYCLIA [id number] [place] [id number] [place] Urea nitrogen [Mass/Vol] 18 mg/dL Normal 9-24 [facility] Comment on above: Order Comment: Katie holman Type: BLOOD SPECIMENOrdering Facility: [facility] Address: [address] [place] [address] Performed By: #### 2 4321-2, , 2776-07 ####[facility] LABORATORYCLIA [id number] [place] [address] [place] CASE MGT INIT ASSESon 2024 CASE MGT INIT ASSES Normal [facility] CBC panel Auto (Bld)on 03-13 Erythrocyte distribution width (RBC) [Ratio] 20.4 % High 11.5-15.0 [facility] Comment on above: Order Comment: Speci men Type: BLOOD SPECIMENOrdering Facility: [facility] Address: [address] [place] [address] Performed By: #### 5 8410-2 ####[facility] LABORATORYCLIA [id number] [address] OF [facility] Hematocrit (Bld) [Volume fraction] 28.8 % Low 39.0-51.0 [facility] Comment on above: Order Comment: Speci men Type: BLOOD SPECIMENOrdering Facility: [facility] Address: [address] [place] [address] Performed By: #### 5 8410-2 ####[facility]ORATORYCLIA [id number] [address] [place] Hemoglobin (Bld) [Mass/Vol] 9.3 g/dL Low 13.0-17.0 [facility] Comment on above: Order Comment: Speci men Type: BLOOD SPECIMENOrdering Facility: [facility] Address: [address] [place] [address] Performed By: #### 5 8410-2 ####[facility] LABORATORYCLIA [id number] [address] [place] MCH (RBC) [Entitic mass] 28.7 pg Normal 26.0-34.0 [facility] Comment on above: Order Comment: Speci men Type: BLOOD SPECIMENOrdering Facility: [facility] Address: [address] [place] [address] Performed By: #### 5 8410-2 ####[facility]ORATORYCLIA [id number] [address] [place] MCHC (RBC) [Mass/Vol] 32.3 g/dL Normal 30.5-36.0 [facility] Comment on above: Order Comment: Speci men Type: BLOOD SPECIMENOrdering Facility: [facility] Address: [address] [place] [address] Performed By: #### 5 8410-2 ####[facility] LABORATORYCLIA [id number] [address] STATES OF [facility] MCV (RBC) [Entitic vol] 88.9 fL Normal 80.0-100.0 [facility] Comment on above: Order Comment: Speci men Type: BLOOD SPECIMENOrdering Facility: [facility] Address: [address] [place] [address] Performed By: #### 5 8410-2 ####[facility]ORATORYCLIA [id number] [address] [place] Nucleated RBC (Bld) [#/Vol] 10*3/uL Normal <0.01 [facility] Comment on above: Order Comment: Speci men Type: BLOOD SPECIMENOrdering Facility: [facility] Address: [address] [place] [address] Performed By: #### 5 8410-2 ####[facility]ORATORYCLIA [id number] [address] [place] Platelet mean volume (Bld) [Entitic vol] 9.0 fL Normal 9.0-12.7 [facility] Comment on above: Order Comment: Speci men Type: BLOOD SPECIMENOrdering Facility: [facility] Address: [address] [place] [address] Performed By: #### 5 8410-2 ####[facility]ORATORYCLIA [id number] [address] [place] Platelets (Bld) [#/Vol] 369 10*3/uL Normal 150-400 [facility] Comment on above: Order Comment: Speci men Type: BLOOD SPECIMENOrdering Facility: [facility] Address: [address] [place] [address] Performed By: #### 5 8410-2 ####[facility]ORATORYCLIA [id number] [address] [place] RBC (Bld) [#/Vol] 3.24 10*6/uL Low 4.20-6.00 [facility] Comment on above: Order Comment: Speci men Type: BLOOD SPECIMENOrdering Facility: [facility] Address: [address] [place] [address] Performed By: #### 5 8410-2 ####[facility]ORATORYCLIA [id number] [place] [address] [place] WBC (Bld) [#/Vol] 13.90 10*3/uL High 3.70-11.00 [facility] Comment on above: Order Comment: Speci men Type: BLOOD SPECIMENOrdering Facility: [facility] Address: [address] [place] [address] Performed By: #### 5 8410-2 ####[facility]PITALCLIA [id number] [place] [address] [place] Calcium.ionized [Moles/Vol]o n 03-13-2025 Calcium.ionized (BldV) [Mass/Vol] 1.24 mmol/L Normal 1.08-1.30 [facility] Comment on above: Order Comment: Speci men Type: BLOOD SPECIMENOrdering Facility: [facility] Address: [address] [place] [address] Performed By: #### 1 995-0 ####[facility]ITALCLIA [id number] [place] [address] [place] Calcium.ionized adjusted to pH 7.4 (Bld) [Moles/Vol] 1.24 mmol/L Normal 1.08-1.30 [facility] Comment on above: Order Comment: Speci men Type: BLOOD SPECIMENOrdering Facility: [facility] Address: [address] [place] [address] Performed By: #### 1 995-0 ####[facility]ORATORYCLIA [id number] [place] [address] [place] Magnesium SerPl-mCncon 03-13 Magnesium [Mass/Vol] 2.1 mg/dL Normal 1.7-2.3 [facility] Comment on above: Order Comment: Speci men Type: BLOOD SPECIMENOrdering Facility: [facility] Address: [address] [place], [place] [address] Performed By: #### 2 4321-2, , 2776-07 ####[facility]ORATORYCLIA [id number] [place] [address] [place] Phosphate SerPl-mCncon 03-13 Phosphate [Mass/Vol] 3.0 mg/dL Normal 2.7-4.8 [facility] Comment on above: Order Comment: Speci men Type: BLOOD SPECIMENOrdering Facility: [facility] Address: [address] [place] [address] Performed By: #### 2 4321-2, , 2776-07 ####[facility]ORATORYCLIA [id number] [place] [address] [place] XR CHEST 1V FRONTALon 2024 XR CHEST 1V FRONTAL Normal [facility] Basic metabolic 2000 panelon 03-12-2025 Anion gap [Moles/Vol] 8 mmol/L Normal 8-15 [facility] Comment on above: Order Comment: Speci men Type: BLOOD SPECIMENOrdering Facility: [facility] Address: [address] [place] [address] Performed By: #### 2 4321-2, , 2776-07 ####[facility]ORATORYCLIA [id number] [place] [address] [place] Calcium [Mass/Vol] 8.4 mg/dL Low 8.5-10.2 [facility] Comment on above: Order Comment: Speci men Type: BLOOD SPECIMENOrdering Facility: [facility] Address: [address] [place] [address] Performed By: #### 2 4321-2, , 2776-07 ####[facility]ORATORYCLIA [id number] [place] [address] [place] Chloride [Moles/Vol] 104 mmol/L Normal 98-107 [facility] Comment on above: Order Comment: Speci men Type: BLOOD SPECIMENOrdering Facility: [facility] Address: [address] [place], [place] [address] Performed By: #### 2 4321-2, , 2776-07 ####[facility]ITALCLIA [id number] [place] [id number] [place] CO2 [Moles/Vol] 24 mmol/L Normal 22-30 [facility] Comment on above: Order Comment: Speci men Type: BLOOD SPECIMENOrdering Facility: [facility] Address: [address] [place] [address] Performed By: #### 2 4321-2, , 2776-07 ####[facility]ITALCLIA [id number] [place] [id number] [place] Creatinine [Mass/Vol] 0.58 mg/dL Low 0.73-1.22 [facility] Comment on above: Order Comment: Speci men Type: BLOOD SPECIMENOrdering Facility: [facility] Address: [address] [place] [address] Performed By: #### 2 4321-2, , 2776-07 ####[facility]ITALCLIA [id number] [address] eGFRcr SerPlBld CKD-EPI 2020 109 mL/min/1.73m??? Normal >=60 [facility] Comment on above: Order Comment: Speci men Type: BLOOD SPECIMENOrdering Facility: [facility] Address: [address] [place] [address] Result Comment: Lisa mated Glomerular Filtration Rate (eGFR) is calculated using the 2020 CKD-EPI creatinine equation. This equation utilizes serum creatinine, sex, and age as parameters. The creatinine assay has traceable calibration to isotope dilution-mass spectrometry. Refer to KDIGO guidelines for clinical interpretation. In patients with unstable renal function, e.g. those with acute kidney injury, the eGFR may not accurately reflect actual GFR. Performed By: #### 2 4321-2, , 2776-07 ####[facility]ORATORYCLIA [id number] [place] [id number] [place] Glucose [Mass/Vol] 123 mg/dL High 74-99 [facility] Comment on above: Order Comment: Speci men Type: BLOOD SPECIMENOrdering Facility: [facility] Address: [address] [place], [place] [address] Result Comment: The [place] [employer] (ADA) provides guidance for cutoff values for fasting glucose and random glucose. The ADA defines fasting as no caloric intake for at least 8 hours. Fasting plasma glucose results between 100 to 125 mg/dL indicate increased risk for diabetes (prediabetes).Fasting plasma glucose results greater than or equal to 126 mg/dL meet the criteria for diagnosis of diabetes. In the absence of unequivocal hyperglycemia, results should be confirmed by repeat testing. In a patient with classic symptoms of hyperglycemia or hyperglycemic crisis, random plasma glucose results greater than or equal to 200 mg/dL meet the criteria for diagnosis of diabetes.Reference: Standards of Medical Care in Diabetes 2016, [place] [employer]. Diabetes Care. 2016.39(Suppl 1). Performed By: #### 2 4321-2, , 2776-07 ####[facility]ORATORYCLIA [id number] [place] [address] [place] Potassium [Moles/Vol] 3.7 mmol/L Normal 3.7-5.1 [facility] Comment on above: Order Comment: Speci men Type: BLOOD SPECIMENOrdering Facility: [facility] Address: [address] [place] [address] Performed By: #### 2 4321-2, , 2776-07 ####[facility]ORATORYCLIA [id number] [place] [address] [place] Sodium [Moles/Vol] 136 mmol/L Normal 136-144 [facility] Comment on above: Order Comment: Speci men Type: BLOOD SPECIMENOrdering Facility: [facility] Address: [address] [place] [address] Performed By: #### 2 4321-2, , 2776-07 ####[facility]ORATORYCLIA [id number] [place] [id number] [place] Urea nitrogen [Mass/Vol] 22 mg/dL Normal 9-24 [facility] Comment on above: Order Comment: Speci men Type: BLOOD SPECIMENOrdering Facility: [facility] Address: [address] [place] [address] Performed By: #### 2 4321-2, 85924-1, 2777-1 ####[facility]ORATORYCLIA [id number] [address] STATES OF [facility] CBC panel Auto (Bld)on 03-12 Erythrocyte distribution width (RBC) [Ratio] 21.1 % High 11.5-15.0 [facility] Comment on above: Order Comment: Speci men Type: BLOOD SPECIMENOrdering Facility: [facility] Address: [address] [place] [address] Performed By: #### 5 8410-2 ####[facility]ORATORYCLIA [id number] [address] [place] Hematocrit (Bld) [Volume fraction] 28.5 % Low 39.0-51.0 [facility] Comment on above: Order Comment: Speci men Type: BLOOD SPECIMENOrdering Facility: [facility] Address: [address] [place] [address] Performed By: #### 5 8410-2 ####[facility]ATORYCLIA [id number] [address] [place] Hemoglobin (Bld) [Mass/Vol] 9.0 g/dL Low 13.0-17.0 [facility] Comment on above: Order Comment: Speci men Type: BLOOD SPECIMENOrdering Facility: [facility] Address: [address] [place] [address] Performed By: #### 5 8410-2 ####[facility]ORATORYCLIA [id number] [address] [place] MCH (RBC) [Entitic mass] 28.5 pg Normal 26.0-34.0 [facility] Comment on above: Order Comment: Speci men Type: BLOOD SPECIMENOrdering Facility: [facility] Address: [address] [place] [address] Performed By: #### 5 8410-2 ####[facility]ATORYCLIA [id number] [address] STATES [facility] MCHC (RBC) [Mass/Vol] 31.6 g/dL Normal 30.5-36.0 [facility] Comment on above: Order Comment: Speci men Type: BLOOD SPECIMENOrdering Facility: [facility] Address: [address] [place] [address] Performed By: #### 5 8410-2 ####[facility]ATORYCLIA [id number] [address] [place] MCV (RBC) [Entitic vol] 90.2 fL Normal 80.0-100.0 [facility] Comment on above: Order Comment: Speci men Type: BLOOD SPECIMENOrdering Facility: [facility] Address: [address] [place] [address] Performed By: #### 5 8410-2 ####[facility]ATORYCLIA [id number] [address] [place] Nucleated RBC (Bld) [#/Vol] 10*3/uL Normal <0.01 [facility] Comment on above: Order Comment: Speci men Type: BLOOD SPECIMENOrdering Facility: [facility] Address: [address] [place] [address] Performed By: #### 5 8410-2 ####[facility]ATORYCLIA [id number] [address] [place] Platelet mean volume (Bld) [Entitic vol] 8.9 fL Low 9.0-12.7 [facility] Comment on above: Order Comment: Speci men Type: BLOOD SPECIMENOrdering Facility: [facility] Address: [address] [place] [address] Performed By: #### 5 8410-2 ####[facility]ATORYCLIA [id number] [address] [place] Platelets (Bld) [#/Vol] 397 10*3/uL Normal 150-400 [facility] Comment on above: Order Comment: Speci men Type: BLOOD SPECIMENOrdering Facility: [facility] Address: [address] [place] [address] Performed By: #### 5 8410-2 ####[facility]ORATORYCLIA [id number] [address] STATES OF [facility] RBC (Bld) [#/Vol] 3.16 10*6/uL Low 4.20-6.00 [facility] Comment on above: Order Comment: Speci men Type: BLOOD SPECIMENOrdering Facility: [facility] Address: [address] [place] [address] Performed By: #### 5 8410-2 ####[facility]ATORYCLIA [id number] [address] STATES OF [facility] WBC (Bld) [#/Vol] 17.38 10*3/uL High 3.70-11.00 [facility] Comment on above: Order Comment: Speci men Type: BLOOD SPECIMENOrdering Facility: [facility] Address: [address] [place] [address] Performed By: #### 5 8410-2 ####[facility]ORATORYCLIA [id number] [address] OF [facility] Calcium.ionized [Moles/Vol]o n 03-12-2025 Calcium.ionized (BldV) [Mass/Vol] 1.24 mmol/L Normal 1.08-1.30 [facility] Comment on above: Order Comment: Speci men Type: BLOOD SPECIMENOrdering Facility: [facility] Address: [address] [place] [address] Performed By: #### 1 995-0 ####[facility]ORATORYCLIA [id number] [address] Calcium.ionized adjusted to pH 7.4 (Bld) [Moles/Vol] 1.21 mmol/L Normal 1.08-1.30 [facility] Comment on above: Order Comment: Speci men Type: BLOOD SPECIMENOrdering Facility: [facility] Address: [address] [place] [address] Performed By: #### 1 995-0 ####[facility]ORATORYCLIA [id number] [address] OF [facility] Magnesium SerPl-ncon 03-12 Magnesium [Mass/Vol] 2.2 mg/dL Normal 1.7-2.3 [facility] Comment on above: Order Comment: Speci men Type: BLOOD SPECIMENOrdering Facility: [facility] Address: [address] [place] [id number] Performed By: #### 2 4321-2, , 2776-07 ####[facility]ORATORYCLIA [id number] [place] [address] [place] NUTRITIONon 03-12-2025 NUTRITION Normal [facility] Phosphate SerPl[facility]12 Phosphate [Mass/Vol] 3.2 mg/dL Normal 2.7-4.8 [facility] Comment on above: Order Comment: Speci men Type: BLOOD SPECIMENOrdering Facility: [facility] Address: [address] [place] [id number] Performed By: #### 2 4321-2, , 2776-07 ####[facility]ORATORYCLIA [id number] [place] [address] [place] XR CHEST 1V FRONTALon 2024 XR CHEST 1V FRONTAL Normal [facility] Basic metabolic 2000 panelon 03-11-2025 Anion gap [Moles/Vol] 11 mmol/L Normal 8-15 [facility] Comment on above: Order Comment: Speci men Type: BLOOD SPECIMENOrdering Facility: [facility] Address: [address] [place] [id number] Performed By: #### 2 4321-2, 2776-07, ####[facility] LABORATORYCLIA [id number] [place] [address] [place] Calcium [Mass/Vol] 8.3 mg/dL Low 8.5-10.2 [facility] Comment on above: Order Comment: Speci men Type: BLOOD SPECIMENOrdering Facility: [facility] Address: [address] [place] [address] Performed By: #### 2 4321-2, 2776-07, ####[facility] LABORATORYCLIA [id number] [place] [address] [place] Chloride [Moles/Vol] 104 mmol/L Normal 98-107 [facility] Comment on above: Order Comment: Speci men Type: BLOOD SPECIMENOrdering Facility: [facility] Address: [address] [place] [address] Performed By: #### 2 4321-2, 2776-07, ####[facility]ORATORYCLIA [id number] [place] [address] [place] CO2 [Moles/Vol] 21 mmol/L Low 22-30 [facility] Comment on above: Order Comment: Speci men Type: BLOOD SPECIMENOrdering Facility: [facility] Address: [address] [place] [address] Performed By: #### 2 4321-2, 2776-07, ####[facility] LABORATORYCLIA [id number] [place] [address] [place] Creatinine [Mass/Vol] 0.81 mg/dL Normal 0.73-1.22 [facility] Comment on above: Order Comment: Speci men Type: BLOOD SPECIMENOrdering Facility: [facility] Address: [address] [place] [address] Performed By: #### 2 4321-2, 2776-07, ####[facility] LABORATORYCLIA [id number] [place] [address] [place] eGFRcr SerPlBld CKD-EPI 2020 98 mL/min/1.73m??? Normal >=60 [facility] Comment on above: Order Comment: Speci men Type: BLOOD SPECIMENOrdering Facility: [facility] Address: [address] [place] [address] Result Comment: Lisa mated Glomerular Filtration Rate (eGFR) is calculated using the 2020 CKD-EPI creatinine equation. This equation utilizes serum creatinine, sex, and age as parameters. The creatinine assay has traceable calibration to isotope dilution-mass spectrometry. Refer to KDIGO guidelines for clinical interpretation. In patients with unstable renal function, e.g. those with acute kidney injury, the eGFR may not accurately reflect actual GFR. Performed By: #### 2 4321-2, 2777-, ####[facility] LABORATORYCLIA [id number] [place] [address] [place] Glucose [Mass/Vol] 90 mg/dL Normal 74-99 [facility] Comment on above: Order Comment: Katie holman Type: BLOOD SPECIMENOrdering Facility: [facility] Address: [address] [place] [address] Result Comment: The [place] [employer] (ADA) provides guidance for cutoff values for fasting glucose and random glucose. The ADA defines fasting as no caloric intake for at least 8 hours. Fasting plasma glucose results between 100 to 125 mg/dL indicate increased risk for diabetes (prediabetes).Fasting plasma glucose results greater than or equal to 126 mg/dL meet the criteria for diagnosis of diabetes. In the absence of unequivocal hyperglycemia, results should be confirmed by repeat testing. In a patient with classic symptoms of hyperglycemia or hyperglycemic crisis, random plasma glucose results greater than or equal to 200 mg/dL meet the criteria for diagnosis of diabetes.Reference: Standards of Medical Care in Diabetes 2016, [place] [employer]. Diabetes Care. 2016.39(Suppl 1). Performed By: #### 2 4321-2, 2777, ####[facility] LABORATORYIA [id number] [place] [address] [place] Potassium [Moles/Vol] 4.7 mmol/L Normal 3.7-5.1 [facility] Comment on above: Order Comment: Katie holman Type: BLOOD SPECIMENOrdering Facility: [facility] Address: [address] [id number] Performed By: #### 2 4321-2, 2777-, ####[facility] LABORATORYCLIA [id number] [place] [address] [place] Sodium [Moles/Vol] 136 mmol/L Normal 136-144 [facility] Comment on above: Order Comment: Speci men Type: BLOOD SPECIMENOrdering Facility: [facility] Address: [address] [place] [address] Performed By: #### 2 4321-2, 2777-1, ####[facility] LABORATORYCLIA [id number] [address] [place] Urea nitrogen [Mass/Vol] 26 mg/dL High 9-24 [facility] Comment on above: Order Comment: Speci men Type: BLOOD SPECIMENOrdering Facility: [facility] Address: [address] [place] [address] Performed By: #### 2 4321-2, 277-, ####[facility] LABORATORYCLIA [id number] [address] STATES OF [facility] CBC panel Auto (Bld)on 03-11 Erythrocyte distribution width (RBC) [Ratio] 21.1 % High 11.5-15.0 [facility] Comment on above: Order Comment: Speci men Type: BLOOD SPECIMENOrdering Facility: [facility] Address: [address] [place] [address] Performed By: #### 5 8410-2 ####[facility] LABORATORYCLIA [id number] [address] STATES OF [facility] Hematocrit (Bld) [Volume fraction] 33.1 % Low 39.0-51.0 [facility] Comment on above: Order Comment: Speci men Type: BLOOD SPECIMENOrdering Facility: [facility] Address: [address] [place] [address] Performed By: #### 5 8410-2 ####[facility] LABORATORYCLIA [id number] [address] Hemoglobin (Bld) [Mass/Vol] 10.6 g/dL Low 13.0-17.0 [facility] Comment on above: Order Comment: Speci men Type: BLOOD SPECIMENOrdering Facility: [facility] Address: [address] [place] [address] Performed By: #### 5 8410-2 ####[facility] LABORATORYCLIA [id number] [address] MCH (RBC) [Entitic mass] 28.5 pg Normal 26.0-34.0 [facility] Comment on above: Order Comment: Speci men Type: BLOOD SPECIMENOrdering Facility: [facility] Address: [address] [place] [address] Performed By: #### 5 8410-2 ####[facility] LABORATORYCLIA [id number] [address] MCHC (RBC) [Mass/Vol] 32.0 g/dL Normal 30.5-36.0 [facility] Comment on above: Order Comment: Speci men Type: BLOOD SPECIMENOrdering Facility: [facility] Address: [address] [place] [address] Performed By: #### 5 8410-2 ####[facility] LABORATORYCLIA [id number] [address] MCV (RBC) [Entitic vol] 89.0 fL Normal 80.0-100.0 [facility] Comment on above: Order Comment: Speci men Type: BLOOD SPECIMENOrdering Facility: [facility] Address: [address] [place] [address] Performed By: #### 5 8410-2 ####[facility] LABORATORYCLIA [id number] [address] Nucleated RBC (Bld) [#/Vol] 10*3/uL Normal <0.01 [facility] Comment on above: Order Comment: Speci men Type: BLOOD SPECIMENOrdering Facility: [facility] Address: [address] [place] [address] Performed By: #### 5 8410-2 ####[facility] LABORATORYCLIA [id number] [address] Platelet mean volume (Bld) [Entitic vol] 8.9 fL Low 9.0-12.7 [facility] Comment on above: Order Comment: Speci men Type: BLOOD SPECIMENOrdering Facility: [facility] Address: [address] [place] [address] Performed By: #### 5 8410-2 ####[facility] LABORATORYCLIA [id number] [address] [place] Platelets (Bld) [#/Vol] 503 10*3/uL High 150-400 [facility] Comment on above: Order Comment: Speci men Type: BLOOD SPECIMENOrdering Facility: [facility] Address: [address] [place] [address] Performed By: #### 5 8410-2 ####[facility] LABORATORYCLIA [id number] [place] [address] [place] RBC (Bld) [#/Vol] 3.72 10*6/uL Low 4.20-6.00 [facility] Comment on above: Order Comment: Speci men Type: BLOOD SPECIMENOrdering Facility: [facility] Address: [address] [place] [address] Performed By: #### 5 8410-2 ####[facility] LABORATORYCLIA [id number] [address] [place] WBC (Bld) [#/Vol] 37.25 10*3/uL High 3.70-11.00 [facility] Comment on above: Order Comment: Speci men Type: BLOOD SPECIMENOrdering Facility: [facility] Address: [address] [place] [address] Performed By: #### 5 8410-2 ####[facility]ORATORYCLIA [id number] [address] Calcium.ionized [Moles/Vol]o n 03-11-2025 Calcium.ionized (BldV) [Mass/Vol] 1.18 mmol/L Normal 1.08-1.30 [facility] Comment on above: Order Comment: Speci men Type: BLOOD SPECIMENOrdering Facility: [facility] Address: [address] [place] [address] Performed By: #### 1 995-0 ####[facility] LABORATORYCLIA [id number] [place] [address] [place] Calcium.ionized adjusted to pH 7.4 (Bld) [Moles/Vol] 1.15 mmol/L Normal 1.08-1.30 [facility] Comment on above: Order Comment: Speci men Type: BLOOD SPECIMENOrdering Facility: [facility] Address: [address] [place] [address] Performed By: #### 1 995-0 ####[facility] LABORATORYCLIA [id number] [place] [id number] [place] Lactate (Bld) [Moles/Vol]on 03-11-2025 Lactate [Moles/Vol] 2.2 mmol/L Normal 0.5-2.2 [facility] Comment on above: Order Comment: Speci men Type: BLOOD SPECIMENOrdering Facility: [facility] Address: [address] [place] [address] Performed By: #### 3 2693-4 ####[facility] LABORATORYCLIA [id number] [place] [address] [place] Magnesium SerPl-mCncon 03-11 Magnesium [Mass/Vol] 1.4 mg/dL Low 1.7-2.3 [facility] Comment on above: Order Comment: Speci men Type: BLOOD SPECIMENOrdering Facility: [facility] Address: [address] [place] [address] Performed By: #### 2 4321-2, 2777-1, 37244-9 ####[facility]ORATORYCLIA [id number] [place] [id number] [place] Phosphate SerPl-mCncon 03-11 Phosphate [Mass/Vol] 4.5 mg/dL Normal 2.7-4.8 [facility] Comment on above: Order Comment: Speci men Type: BLOOD SPECIMENOrdering Facility: [facility] Address: [address] [place] [address] Performed By: #### 2 4321-2, 2777-1, 02046-5 ####[facility]ORATORYCLIA [id number] [place] [address] [place] XR CHEST 1V FRONTALon 2024 XR CHEST 1V FRONTAL Normal [facility] ARTERIAL BLOOD GASESon 03-10 Base deficit (BldA) [Moles/Vol] -4 mmol/L Low -2-0 [facility] Comment on above: Order Comment: Speci men Type: ARTERIAL BLOOD SPECIMENOrdering Facility: [facility] Address: [address] [place] [address] Performed By: #### A LLBG ####[facility]ORATORYCLIA [id number] [address] STATES [facility] Body temperature 99.32 [degF] Normal [facility] Comment on above: Order Comment: Speci men Type: ARTERIAL BLOOD SPECIMENOrdering Facility: [facility] Address: [address] [place] [address] Performed By: #### A LLBG ####[facility]ORATORYCLIA [id number] [address] [place] Calcium.ionized (BldV) [Mass/Vol] 1.22 mmol/L Normal 1.08-1.30 [facility] Comment on above: Order Comment: Speci men Type: ARTERIAL BLOOD SPECIMENOrdering Facility: [facility] Address: [address] [place] [address] Performed By: #### A LLBG ####[facility]ORATORYCLIA [id number] [address] [place] Calcium.ionized adjusted to pH 7.4 (BldA) [Moles/Vol] 1.20 mmol/L Normal 1.08-1.30 [facility] Comment on above: Order Comment: Speci men Type: ARTERIAL BLOOD SPECIMENOrdering Facility: [facility] Address: [address] [place] [address] Performed By: #### A LLBG ####[facility]ORATORYCLIA [id number] [address] [place] Carboxyhemoglobin (BldA) [Mass fraction] 1.2 % Normal 0.0-2.0 [facility] Comment on above: Order Comment: Speci men Type: ARTERIAL BLOOD SPECIMENOrdering Facility: [facility] Address: [address] [place] [address] Result Comment: Carb oxyhemoglobin Reference Range for Smokers: 2.0-8.0% Performed By: #### A LLBG ####[facility]ORATORYCLIA [id number] [address] [place] Chloride [Moles/Vol] 108 mmol/L High 97-105 [facility] Comment on above: Order Comment: Speci men Type: ARTERIAL BLOOD SPECIMENOrdering Facility: [facility] Address: [address] [place] [address] Performed By: #### A LLBG ####[facility]ORATORYCLIA [id number] [address] [place] CO2 (Bld) [Partial pressure] 36 mm Hg Normal 36-46 [facility] Comment on above: Order Comment: Speci men Type: ARTERIAL BLOOD SPECIMENOrdering Facility: [facility] Address: [address] [place] [address] Performed By: #### A LLBG ####[facility]ORATORYCLIA [id number] [address] [place] CO2 adjusted to patient's actual temperature (Bld) [Partial pressure] 37 mmHg Normal 36-46 [facility] Comment on above: Order Comment: Speci men Type: ARTERIAL BLOOD SPECIMENOrdering Facility: [facility] Address: [address] [place] [address] Performed By: #### A LLBG ####[facility]ORATORYCLIA [id number] [place] [address] [place] Glucose [Mass/Vol] 83 mg/dL Normal 60-105 [facility] Comment on above: Order Comment: Speci men Type: ARTERIAL BLOOD SPECIMENOrdering Facility: [facility] Address: [address] [place] [address] Performed By: #### A LLBG ####[facility]ORATORYCLIA [id number] [address] [place] HCO3 (Bld) [Moles/Vol] 21 mmol/L Low 22-26 [facility] Comment on above: Order Comment: Speci men Type: ARTERIAL BLOOD SPECIMENOrdering Facility: [facility] Address: [address] [place] [address] Performed By: #### A LLBG ####[facility]ORATORYCLIA [id number] [address] [place] Hematocrit (Bld) [Volume fraction] 34.7 % Low 39.0-51.0 [facility] Comment on above: Order Comment: Speci men Type: ARTERIAL BLOOD SPECIMENOrdering Facility: [facility] Address: [address] [place] [address] Performed By: #### A LLBG ####[facility]ORATORYCLIA [id number] [address] Hemoglobin (Bld) [Mass/Vol] 11.2 g/dL Low 13.0-17.0 [facility] Comment on above: Order Comment: Speci men Type: ARTERIAL BLOOD SPECIMENOrdering Facility: [facility] Address: [address] [place] [address] Performed By: #### A LLBG ####[facility]ORATORYCLIA [id number] [address] [place] Lactate [Moles/Vol] 2.4 mmol/L High 0.5-2.2 [facility] Comment on above: Order Comment: Speci men Type: ARTERIAL BLOOD SPECIMENOrdering Facility: [facility] Address: [address] [place] [address] Performed By: #### A LLBG ####[facility]ORATORYCLIA [id number] [address] [place] Methemoglobin (Bld) [Mass fraction] 0.8 % Normal 0.0-1.5 [facility] Comment on above: Order Comment: Speci men Type: ARTERIAL BLOOD SPECIMENOrdering Facility: [facility] Address: [address] [place] [address] Performed By: #### A LLBG ####[facility]ATORYCLIA [id number] [address] O2 THERAPY NC = Nasal Cannula Normal [facility] Comment on above: Order Comment: Speci men Type: ARTERIAL BLOOD SPECIMENOrdering Facility: [facility] Address: [address] [place] [address] Result Comment: 4L Performed By: #### A LLBG ####[facility]ORATORYCLIA [id number] [address] Oxygen (Bld) [Partial pressure] 64 mm Hg Low 85-95 [facility] Comment on above: Order Comment: Speci men Type: ARTERIAL BLOOD SPECIMENOrdering Facility: [facility] Address: [address] [place] [address] Performed By: #### A LLBG ####[facility]ORATORYCLIA [id number] [address] Oxygen adjusted to patient's actual temperature (Bld) [Partial pressure] 66 mmHg Low 85-95 [facility] Comment on above: Order Comment: Speci men Type: ARTERIAL BLOOD SPECIMENOrdering Facility: [facility] Address: [address] [place] [address] Performed By: #### A LLBG ####[facility]ORATORYCLIA [id number] [address] [place] Oxyhemoglobin (BldA) [Mass fraction] 89 % Low 95-98 [facility] Comment on above: Order Comment: Speci men Type: ARTERIAL BLOOD SPECIMENOrdering Facility: [facility] Address: [address] [place] [address] Performed By: #### A LLBG ####[facility]ORATORYCLIA [id number] [address] [place] pH (Bld) 7.38 [pH] Normal 7.35-7.45 [facility] Comment on above: Order Comment: Speci men Type: ARTERIAL BLOOD SPECIMENOrdering Facility: [facility] Address: [address] [place] [address] Performed By: #### A LLBG ####[facility]ORATORYCLIA [id number] [address] pH adjusted to patient's actual temperature (Bld) 7.37 Normal 7.35-7.45 [facility] Comment on above: Order Comment: Speci men Type: ARTERIAL BLOOD SPECIMENOrdering Facility: [facility] Address: [address] [place] [address] Performed By: #### A LLBG ####[facility]ORATORYCLIA [id number] [address] Potassium [Moles/Vol] 4.4 mmol/L Normal 3.5-5.0 [facility] Comment on above: Order Comment: Speci men Type: ARTERIAL BLOOD SPECIMENOrdering Facility: [facility] Address: [address] [place] [address] Performed By: #### A LLBG ####[facility]ORATORYCLIA [id number] [address] Sodium [Moles/Vol] 133 mmol/L Low 136-144 [facility] Comment on above: Order Comment: Speci men Type: ARTERIAL BLOOD SPECIMENOrdering Facility: [facility] Address: [address] [place] [address] Performed By: #### A LLBG ####[facility]ORATORYCLIA [id number] [address] [place] BRIEF OP NOTon 03-10-2025 BRIEF OP NOT Normal [facility] Bacteria Bld Culton 03-10-20 25 Bacteria identified Cx Nom (Bld) CULTURE, BLOOD: No growth 5 days Normal [facility] Comment on above: Performed By: #### 6 00-7 ####[facility]ORATORYCLIA [id number] [address] Bacteria identified Cx Nom (Bld) CULTURE, BLOOD: No growth 5 days Normal [facility] Comment on above: Performed By: #### 6 00-7 ####[facility]ORATORYCLIA [id number] [address] OF [facility] Bacteria Wnd Culton 03-10-20 25 Bacteria identified Cx Nom (Wound) Abnormal [facility] Comment on above: Performed By: #### 6 462-6 ####[facility]ORATORYCLIA [id number] [place] [address] [place] CBC W Auto Differential pane l (Bld)on 03-10-2025 Anisocytosis Ql (Bld) Present Normal [facility] Comment on above: Order Comment: Speci men Type: BLOOD SPECIMENOrdering Facility: [facility] Address: [address] [place] [address] Performed By: #### 5 7021-8 ####[facility]ORATORYCLIA [id number] [address] OF [facility] Basophils (Bld) [#/Vol] 0.00 10*3/uL Normal <0.11 [facility] Comment on above: Order Comment: Speci men Type: BLOOD SPECIMENOrdering Facility: [facility] Address: [address] [place] [address] Performed By: #### 5 7021-8 ####[facility]ORATORYCLIA [id number] [address] Basophils/100 WBC (Bld) 0.0 % Normal [facility] Comment on above: Order Comment: Speci men Type: BLOOD SPECIMENOrdering Facility: [facility] Address: [address] [place] [address] Performed By: #### 5 7021-8 ####[facility]ORATORYCLIA [id number] [address] OF [facility] Differential cell count method Nom (Bld) Manual Normal [facility] Comment on above: Order Comment: Speci men Type: BLOOD SPECIMENOrdering Facility: [facility] Address: [address] [place] [address] Performed By: #### 5 7021-8 ####[facility]ATORYCLIA [id number] [address] [place] Eosinophils (Bld) [#/Vol] 0.00 10*3/uL Normal <0.46 [facility] Comment on above: Order Comment: Speci men Type: BLOOD SPECIMENOrdering Facility: [facility] Address: [address] [place] [address] Performed By: #### 5 7021-8 ####[facility]ORATORYCLIA [id number] [address] [place] Eosinophils/100 WBC (Bld) 0.0 % Normal [facility] Comment on above: Order Comment: Speci men Type: BLOOD SPECIMENOrdering Facility: [facility] Address: [address] [place] [address] Performed By: #### 5 7021-8 ####[facility]ORATORYCLIA [id number] [address] Erythrocyte distribution width (RBC) [Ratio] 21.1 % High 11.5-15.0 [facility] Comment on above: Order Comment: Speci men Type: BLOOD SPECIMENOrdering Facility: [facility] Address: [address] [place] [address] Performed By: #### 5 7021-8 ####[facility]ORATORYCLIA [id number] [address] [place] Hematocrit (Bld) [Volume fraction] 35.9 % Low 39.0-51.0 [facility] Comment on above: Order Comment: Speci men Type: BLOOD SPECIMENOrdering Facility: [facility] Address: [address] [place] [address] Performed By: #### 5 7021-8 ####[facility]ORATORYCLIA [id number] [address] Hemoglobin (Bld) [Mass/Vol] 11.8 g/dL Low 13.0-17.0 [facility] Comment on above: Order Comment: Speci men Type: BLOOD SPECIMENOrdering Facility: [facility] Address: [address] [place] [address] Performed By: #### 5 7021-8 ####[facility]ORATORYCLIA [id number] [address] Lymphocytes (Bld) [#/Vol] 2.59 10*3/uL Normal 1.00-4.00 [facility] Comment on above: Order Comment: Speci men Type: BLOOD SPECIMENOrdering Facility: [facility] Address: [address] [place] [address] Performed By: #### 5 7021-8 ####[facility]ORATORYCLIA [id number] [address] Lymphocytes/100 WBC (Bld) 5.0 % Normal [facility] Comment on above: Order Comment: Speci men Type: BLOOD SPECIMENOrdering Facility: [facility] Address: [address] [place] [address] Performed By: #### 5 7021-8 ####[facility]ORATORYCLIA [id number] [address] MCH (RBC) [Entitic mass] 29.1 pg Normal 26.0-34.0 [facility] Comment on above: Order Comment: Speci men Type: BLOOD SPECIMENOrdering Facility: [facility] Address: [address] [place] [address] Performed By: #### 5 7021-8 ####[facility]ORATORYCLIA [id number] [address] MCHC (RBC) [Mass/Vol] 32.9 g/dL Normal 30.5-36.0 [facility] Comment on above: Order Comment: Speci men Type: BLOOD SPECIMENOrdering Facility: [facility] Address: [address] [place] [address] Performed By: #### 5 7021-8 ####[facility]ORATORYCLIA [id number] [address] MCV (RBC) [Entitic vol] 88.6 fL Normal 80.0-100.0 [facility] Comment on above: Order Comment: Speci men Type: BLOOD SPECIMENOrdering Facility: [facility] Address: [facility] [place] [address] Performed By: #### 5 7021-8 ####[facility]ORATORYCLIA [id number] [place] [address] [place] Monocytes (Bld) [#/Vol] 2.59 10*3/uL High <0.87 [facility] Comment on above: Order Comment: Speci men Type: BLOOD SPECIMENOrdering Facility: [facility] Address: [address] [place] [address] Performed By: #### 5 7021-8 ####[facility]ORATORYCLIA [id number] [address] [place] Monocytes/100 WBC (Bld) 5.0 % Normal [facility] Comment on above: Order Comment: Speci men Type: BLOOD SPECIMENOrdering Facility: [facility] Address: [address] [place] [address] Performed By: #### 5 7021-8 ####[facility] LABORATORYCLIA [id number] [place] [address] [place] Neutrophils (Bld) [#/Vol] 46.69 10*3/uL High 1.45-7.50 [facility] Comment on above: Order Comment: Speci men Type: BLOOD SPECIMENOrdering Facility: [facility] Address: [address] [place] [address] Performed By: #### 5 7021-8 ####[facility]ORATORYCLIA [id number] [place] [address] [place] Neutrophils/100 WBC (Bld) 90.0 % Normal [facility] Comment on above: Order Comment: Speci men Type: BLOOD SPECIMENOrdering Facility: [facility] Address: [address] [place] [address] Performed By: #### 5 7021-8 ####[facility]ATORYCLIA [id number] [address] Nucleated RBC (Bld) [#/Vol] 10*3/uL Normal <0.01 [facility] Comment on above: Order Comment: Speci men Type: BLOOD SPECIMENOrdering Facility: [facility] Address: [facility] [place] [address] Performed By: #### 5 7021-8 ####[facility]ORATORYCLIA [id number] [address] Nucleated RBC/100 WBC (Bld) [Ratio] 0.0 /100 WBC Normal [facility] Comment on above: Order Comment: Speci men Type: BLOOD SPECIMENOrdering Facility: [facility] Address: [address] [place] [address] Performed By: #### 5 7021-8 ####[facility]ORATORYCLIA [id number] [address] Ovalocytes LM Ql (Bld) Few Normal [facility] Comment on above: Order Comment: Speci men Type: BLOOD SPECIMENOrdering Facility: [facility] Address: [address] [place] [address] Performed By: #### 5 7021-8 ####[facility] LABORATORYCLIA [id number] [address] [place] Plate[place] mean volume (Bld) [Entitic vol] 8.8 fL Low 9.0-12.7 [facility] Comment on above: Order Comment: Speci men Type: BLOOD SPECIMENOrdering Facility: [facility] Address: [address] [place] [address] Performed By: #### 5 7021-8 ####[facility]ORATORYCLIA [id number] [address] Platelets (Bld) [#/Vol] 502 10*3/uL High 150-400 [facility] Comment on above: Order Comment: Speci men Type: BLOOD SPECIMENOrdering Facility: [facility] Address: [address] [place] [address] Performed By: #### 5 7021-8 ####[facility] LABORATORYCLIA [id number] [address] STATES [facility] Platelets Estimate (Bld) [#/Vol] Increased Normal [facility] Comment on above: Order Comment: Speci men Type: BLOOD SPECIMENOrdering Facility: [facility] Address: [address] [place] [address] Performed By: #### 5 7021-8 ####[facility] LABORATORYCLIA [id number] [address] RBC (Bld) [#/Vol] 4.05 10*6/uL Low 4.20-6.00 [facility] Comment on above: Order Comment: Speci men Type: BLOOD SPECIMENOrdering Facility: [facility] Address: [address] [place] [address] Performed By: #### 5 7021-8 ####[facility] LABORATORYCLIA [id number] [address] [place]ORPH Reviewed: see result s of individual morphologies Normal [facility] Comment on above: Order Comment: Speci men Type: BLOOD SPECIMENOrdering Facility: [facility] Address: [address] [place] [address] Performed By: #### 5 7021-8 ####[facility] LABORATORYCLIA [id number] [address] [place] WBC (Bld) [#/Vol] 51.88 10*3/uL High 3.70-11.00 [facility] Comment on above: Order Comment: Speci men Type: BLOOD SPECIMENOrdering Facility: [facility] Address: [address] [place] [address] Performed By: #### 5 7021-8 ####[facility] LABORATORYCLIA [id number] [address] CBC panel Auto (Bld)on 03-10 Erythrocyte distribution width (RBC) [Ratio] 21.1 % High 11.5-15.0 [facility] Comment on above: Order Comment: Speci men Type: BLOOD SPECIMENOrdering Facility: [facility] Address: [address] [place] [address] Performed By: #### 5 8410-2 ####[facility] LABORATORYCLIA [id number] [address] Hematocrit (Bld) [Volume fraction] 33.1 % Low 39.0-51.0 [facility] Comment on above: Order Comment: Speci men Type: BLOOD SPECIMENOrdering Facility: [facility] Address: [address] [place] [address] Performed By: #### 5 8410-2 ####[facility] LABORATORYCLIA [id number] [address] OF [facility] Hemoglobin (Bld) [Mass/Vol] 10.9 g/dL Low 13.0-17.0 [facility] Comment on above: Order Comment: Speci men Type: BLOOD SPECIMENOrdering Facility: [facility] Address: [address] [place] [address] Performed By: #### 5 8410-2 ####[facility] LABORATORYCLIA [id number] [address] MCH (RBC) [Entitic mass] 29.5 pg Normal 26.0-34.0 [facility] Comment on above: Order Comment: Speci men Type: BLOOD SPECIMENOrdering Facility: [facility] Address: [address] [place] [address] Performed By: #### 5 8410-2 ####[facility] LABORATORYCLIA [id number] [address] [place] MCHC (RBC) [Mass/Vol] 32.9 g/dL Normal 30.5-36.0 [facility] Comment on above: Order Comment: Speci men Type: BLOOD SPECIMENOrdering Facility: [facility] Address: [address] [place] [address] Performed By: #### 5 8410-2 ####[facility] LABORATORYCLIA [id number] [place] [address] [place] MCV (RBC) [Entitic vol] 89.7 fL Normal 80.0-100.0 [facility] Comment on above: Order Comment: Speci men Type: BLOOD SPECIMENOrdering Facility: [facility] Address: [address] [place] [address] Performed By: #### 5 8410-2 ####[facility] LABORATORYCLIA [id number] [place] [address] [place] Nucleated RBC (Bld) [#/Vol] 10*3/uL Normal <0.01 [facility] Comment on above: Order Comment: Speci men Type: BLOOD SPECIMENOrdering Facility: [facility] Address: [address] [place] [address] Performed By: #### 5 8410-2 ####[facility] LABORATORYCLIA [id number] [address] [place] Platelet mean volume (Bld) [Entitic vol] 8.7 fL Low 9.0-12.7 [facility] Comment on above: Order Comment: Speci men Type: BLOOD SPECIMENOrdering Facility: [facility] Address: [address] [place] [address] Performed By: #### 5 8410-2 ####[facility] LABORATORYCLIA [id number] [address] [place] Platelets (Bld) [#/Vol] 425 10*3/uL High 150-400 [facility] Comment on above: Order Comment: Speci men Type: BLOOD SPECIMENOrdering Facility: [facility] Address: [address] [place] [address] Performed By: #### 5 8410-2 ####[facility] LABORATORYCLIA [id number] [place] [address] [place] RBC (Bld) [#/Vol] 3.69 10*6/uL Low 4.20-6.00 [facility] Comment on above: Order Comment: Speci men Type: BLOOD SPECIMENOrdering Facility: [facility] Address: [address] [place] [address] Performed By: #### 5 8410-2 ####[facility]ORATORYCLIA [id number] [address] STATES OF [facility] WBC (Bld) [#/Vol] 32.74 10*3/uL High 3.70-11.00 [facility] Comment on above: Order Comment: Speci men Type: BLOOD SPECIMENOrdering Facility: [facility] Address: [address] [place] [address] Performed By: #### 5 8410-2 ####[facility] LABORATORYCLIA [id number] [address] CONSULTon 03-10-2025 CONSULT Normal [facility] CT ABD/PEL W IVCONon 025 CT ABD/PEL W IVCON Normal [facility] CT CHEST W IVCONon 5 CT CHEST W IVCON Normal [facility] CT PLACEMENT CHEST TUBEon CT PLACEMENT CHEST TUBE Normal [facility] Calcium.ionized [Moles/Vol]o n 03-10-2025 Calcium.ionized (BldV) [Mass/Vol] 1.23 mmol/L Normal 1.08-1.30 [facility] Comment on above: Order Comment: Speci men Type: BLOOD SPECIMENOrdering Facility: [facility] Address: [address] [place] [address] Performed By: #### 1 995-0 ####[facility]ORATORYCLIA [id number] [address] Calcium.ionized adjusted to pH 7.4 (Bld) [Moles/Vol] 1.18 mmol/L Normal 1.08-1.30 [facility] Comment on above: Order Comment: Speci men Type: BLOOD SPECIMENOrdering Facility: [facility] Address: [address] [place] [address] Performed By: #### 1 995-0 ####[facility] LABORATORYCLIA [id number] [address] Comprehensive metabolic 2000 panelon 03-10-2025 Albumin [Mass/Vol] 2.6 g/dL Low 3.9-4.9 [facility] Comment on above: Order Comment: Speci men Type: BLOOD SPECIMENOrdering Facility: [facility] Address: [address] [place] [address] Performed By: #### 2 4323-8, 2776-07, ####[facility] LABORATORYCLIA [id number] [address] STATES OF [facility] ALP [Catalytic activity/Vol] 184 U/L High 38-113 [facility] Comment on above: Order Comment: Speci men Type: BLOOD SPECIMENOrdering Facility: [facility] Address: [address] [place] [address] Performed By: #### 2 4323-8, 2776-07, ####[facility]ORATORYCLIA [id number] [address] STATES OF [facility] ALT With P-5'-P [Catalytic activity/Vol] 15 U/L Normal 10-54 [facility] Comment on above: Order Comment: Speci men Type: BLOOD SPECIMENOrdering Facility: [facility] Address: [address] [place] [address] Performed By: #### 2 4323-8, 2776-07, ####[facility]ORATORYCLIA [id number] [address] Anion gap [Moles/Vol] 15 mmol/L Normal 8-15 [facility] Comment on above: Order Comment: Speci men Type: BLOOD SPECIMENOrdering Facility: [facility] Address: [address] [place] [address] Performed By: #### 2 4323-8, 2776-07, ####[facility]ORATORYCLIA [id number] [address] [place] AST With P-5'-P [Catalytic activity/Vol] 14 U/L Normal 14-40 [facility] Comment on above: Order Comment: Speci men Type: BLOOD SPECIMENOrdering Facility: [facility] Address: [address] [place] [id number] Performed By: #### 2 4323-8, 2776-07, ####[facility] LABORATORYCLIA [id number] [place] [address] [place] Bilirubin [Mass/Vol] 0.4 mg/dL Normal 0.2-1.3 [facility] Comment on above: Order Comment: Speci men Type: BLOOD SPECIMENOrdering Facility: [facility] Address: [address] [place] [address] Performed By: #### 2 4323-8, 2776-07, ####[facility]ORATORYCLIA [id number] [place] [address] [place] Calcium [Mass/Vol] 9.0 mg/dL Normal 8.5-10.2 [facility] Comment on above: Order Comment: Speci men Type: BLOOD SPECIMENOrdering Facility: [facility] Address: [address] [place] [address] Performed By: #### 2 4323-8, 2776-07, ####[facility]ORATORYCLIA [id number] [place] [address] [place] Chloride [Moles/Vol] 99 mmol/L Normal 98-107 [facility] Comment on above: Order Comment: Speci men Type: BLOOD SPECIMENOrdering Facility: [facility] Address: [address] [place] [address] Performed By: #### 2 4323-8, 2776-07, ####[facility]ORATORYCLIA [id number] [place] [address] [place] CO2 [Moles/Vol] 20 mmol/L Low 22-30 [facility] Comment on above: Order Comment: Speci men Type: BLOOD SPECIMENOrdering Facility: [facility] Address: [address] [place] [address] Performed By: #### 2 4323-8, 2776-07, ####[facility] LABORATORYCLIA [id number] [place] [address] [place] [facility] Creatinine [Mass/Vol] 1.22 mg/dL Normal 0.73-1.22 [facility] Comment on above: Order Comment: Katie holman Type: BLOOD SPECIMENOrdering Facility: [facility] Address: [address] [place] [address] Performed By: #### 2 4323-8, 2777-, ####[facility] LABORATORYCLIA [id number] [address] eGFRcr SerPlBld CKD-EPI 2020 66 mL/min/1.73m??? Normal >=60 [facility] Comment on above: Order Comment: Katie holman Type: BLOOD SPECIMENOrdering Facility: [facility] Address: [address] [place] [address] Result Comment: Lisa mated Glomerular Filtration Rate (eGFR) is calculated using the 2020 CKD-EPI creatinine equation. This equation utilizes serum creatinine, sex, and age as parameters. The creatinine assay has traceable calibration to isotope dilution-mass spectrometry. Refer to KDIGO guidelines for clinical interpretation. In patients with unstable renal function, e.g. those with acute kidney injury, the eGFR may not accurately reflect actual GFR. Performed By: #### 2 4323-8, 2776-07, ####[facility] LABORATORYCLIA [id number] [place] [id number] [place] Glucose [Mass/Vol] 130 mg/dL High 74-99 [facility] Comment on above: Order Comment: Katie holman Type: BLOOD SPECIMENOrdering Facility: [facility] Address: [address] [place] [address] Result Comment: The [place] [employer] (ADA) provides guidance for cutoff values for fasting glucose and random glucose. The ADA defines fasting as no caloric intake for at least 8 hours. Fasting plasma glucose results between 100 to 125 mg/dL indicate increased risk for diabetes (prediabetes).Fasting plasma glucose results greater than or equal to 126 mg/dL meet the criteria for diagnosis of diabetes. In the absence of unequivocal hyperglycemia, results should be confirmed by repeat testing. In a patient with classic symptoms of hyperglycemia or hyperglycemic crisis, random plasma glucose results greater than or equal to 200 mg/dL meet the criteria for diagnosis of diabetes.Reference: Standards of Medical Care in Diabetes 2016, [place] [employer]. Diabetes Care. 2016.39(Suppl 1). Performed By: #### 2 4323-8, 2776-07, ####[facility] LABORATORYCLIA [id number] [place] [address] [place] Potassium [Moles/Vol] 4.3 mmol/L Normal 3.7-5.1 [facility] Comment on above: Order Comment: Speci men Type: BLOOD SPECIMENOrdering Facility: [facility] Address: [address] [place] [address] Performed By: #### 2 4323-8, 2776-07, ####[facility]ORATORYCLIA [id number] [place] [address] [place] Protein [Mass/Vol] 6.5 g/dL Normal 6.3-8.0 [facility] Comment on above: Order Comment: Speci men Type: BLOOD SPECIMENOrdering Facility: [facility] Address: [address] [place] [address] Performed By: #### 2 4323-8, 2776-07, ####[facility]ORATORYCLIA [id number] [place] [address] [place] Sodium [Moles/Vol] 134 mmol/L Low 136-144 [facility] Comment on above: Order Comment: Speci men Type: BLOOD SPECIMENOrdering Facility: [facility] Address: [address] [place] [address] Performed By: #### 2 4323-8, 2776-07, ####[facility]ORATORYCLIA [id number] [place] [address] [place] Urea nitrogen [Mass/Vol] 27 mg/dL High 9-24 [facility] Comment on above: Order Comment: Speci men Type: BLOOD SPECIMENOrdering Facility: [facility] Address: [address] [place] [address] Performed By: #### 2 4323-8, 2777-1, 56855-9 ####[facility]ORATORYCLIA [id number] [address] OF [facility] ED NOTEon 03-10-2025 ED NOTE HNO ID: [id number] Author: ANA LILIA WOOTEN, RN Service: Emergency Medicine Author Type: Registered Nurse Type: ED Notes Filed: 03/10/2025 20:52 Note Text: Verbal report given to MICU RN. Normal [facility] ED NOTE Normal [facility] ED NOTE HNO ID: [id number] Author: DIANE DAVIS, RN Service: Emergency Medicine Author Type: Registered Nurse Type: ED Notes Filed: 03/10/2025 19:00 Note Text: Surg residents at bedside, wanting pt left on -10 for suction, also sats okay above 90 on 4L Normal [facility] ED NOTE HNO ID: [id number] Author: GREGG FREED, ELIU Service: ? Author Type: Registered Nurse Type: ED Notes Filed: 03/10/2025 18:24 Note Text: Bed: 07-ED Expected date: Expected time: Means of arrival: Comments: Pt in IR Normal [facility] ED PROV NOTEon 03-10-2025 ED PROV NOTE Normal [facility] ED PROV NOTE Normal [facility] HISTORY PHYSICALon HISTORY PHYSICAL Normal [facility] Lactate (Bld) [Moles/Vol]on 03-10-2025 Lactate [Moles/Vol] 2.2 mmol/L Normal 0.5-2.2 [facility] Comment on above: Order Comment: Speci men Type: BLOOD SPECIMENOrdering Facility: [facility] Address: [address] [place] [address] Performed By: #### 3 2693-4 ####[facility] LABORATORYCLIA [id number] [address] Magnesium SerPl-mCncon 03-10 Magnesium [Mass/Vol] 1.4 mg/dL Low 1.7-2.3 [facility] Comment on above: Order Comment: Speci men Type: BLOOD SPECIMENOrdering Facility: [facility] Address: [address] [place] [address] Performed By: #### 2 4323-8, 2777-1, 51604-9 ####[facility] LABORATORYCLIA [id number] [place] [id number] [place] PT panel Coag (PPP)on 2024 INR Coag (PPP) [Relative time] 1.4 {INR} High 0.9-1.3 [facility] Comment on above: Order Comment: Katie holman Type: BLOOD SPECIMENOrdering Facility: [facility] Address: [address] [place] [address] Result Comment: Olivia min K Antagonist (VKA) Therapeutic Range: INR 2 to 3 (Target INR of 2.5)Note: For patients treated with VKA drugs, such as warfarin, the [place] [employer] 2012 Guideline recommends a therapeutic INR range of 2 to 3 (target INR of 2.5). This recommendation includes high-risk patients with antiphospholipid syndrome with previous arterial or venous thromboembolism, current-generation mechanical or bioprosthetic aortic heart valve replacement.Note: Patients with mechanical aortic valve replacement and additional risk factors for thromboembolic events (atrial fibrillation, previous thromboembolism, LV dysfunction, hypercoagulable conditions) or an older generation mechanical AVR (i.e., ball in-Cage) or any mechanical MVR should have a INR therapeutic range of 2.5 to 3.5 (target INR of 3).Willow GH, et al. Chest 2012, 141:7S-47SNishimpreethi RA, et al. [facility] 2017, 70: 252-289 Performed By: #### 3 4528-0, 90432-6 ####[facility] LABORATORYCLIA [id number] [place] [address] [place] PT Coag (PPP) [Time] 14.6 s High 9.7-13.0 [facility] Comment on above: Order Comment: Katie holman Type: BLOOD SPECIMENOrdering Facility: [facility] Address: [address] [place] [address] Performed By: #### 3 4528-0, 81472-3 ####[facility] LABORATORYCLIA [id number] [place] [address] [place] Phosphate SerPl-mCncon 03-10 Phosphate [Mass/Vol] 3.8 mg/dL Normal 2.7-4.8 [facility] Comment on above: Order Comment: Speci men Type: BLOOD SPECIMENOrdering Facility: [facility] Address: [address] [place] [address] Performed By: #### 2 4323-8, 2777-1, 72863-1 ####[facility]ORATORYCLIA [id number] [address] OF [place] Urinalysis complete panel (U )on 03-10-2025 Bilirubin Ql (U) Negative Normal Negative [facility] Comment on above: Order Comment: Speci men Type: URINE SPECIMENOrdering Facility: [facility] Address: [address] [place] [address] Performed By: #### 2 4356-8 ####[facility]ENTERIA [id number] [address] [place] Clarity (Unsp spec) Clear Normal Clear [facility] Comment on above: Order Comment: Speci men Type: URINE SPECIMENOrdering Facility: [facility] Address: [address] [place] [address] Performed By: #### 2 4356-8 ####[facility]PITALCLIA [id number] [address] OF [facility] Color (U) Yellow Normal yellow [facility] Comment on above: Order Comment: Speci men Type: URINE SPECIMENOrdering Facility: [facility] Address: [address] [place] [address] Performed By: #### 2 4356-8 ####[facility]ORATORYCLIA [id number] [address] Epithelial cells LM.HPF (Urine sed) [#/Area] Few Normal [facility] Comment on above: Order Comment: Speci men Type: URINE SPECIMENOrdering Facility: [facility] Address: [address] [place] [address] Performed By: #### 2 4356-8 ####[facility]ORATORYCLIA [id number] [address] Glucose Test strip (U) [Mass/Vol] Negative Normal Trace, Negative [facility] Comment on above: Order Comment: Speci men Type: URINE SPECIMENOrdering Facility: [facility] Address: [address] [place] [address] Performed By: #### 2 4356-8 ####[facility]ATORYCLIA [id number] [address] [place] Hemoglobin Ql (U) Negative Normal Negative, Trace [facility] Comment on above: Order Comment: Speci men Type: URINE SPECIMENOrdering Facility: [facility] Address: [address] [place] [address] Performed By: #### 2 4356-8 ####[facility]ORATORYCLIA [id number] [address] Hyaline casts (Urine sed) [#/Area] /[LPF] Abnormal 0 /LPF [facility] Comment on above: Order Comment: Speci men Type: URINE SPECIMENOrdering Facility: [facility] Address: [address] [place] [address] Performed By: #### 2 4356-8 ####[facility]ORATORYCLIA [id number] [address] Ketones Ql (U) Negative Normal Negative, Trace [facility] Comment on above: Order Comment: Speci men Type: URINE SPECIMENOrdering Facility: [facility] Address: [address] [place] [address] Performed By: #### 2 4356-8 ####[facility]ORATORYCLIA [id number] [address] Leukocyte esterase Test strip Ql (U) Negative Normal Negative, 25 Bhaskar/uL [facility] Comment on above: Order Comment: Speci men Type: URINE SPECIMENOrdering Facility: [facility] Address: [address] [place] [address] Performed By: #### 2 4356-8 ####[facility]ORATORYCLIA [id number] [place] [id number] [place] Nitrite Ql (U) Negative Normal Negative [facility] Comment on above: Order Comment: Speci men Type: URINE SPECIMENOrdering Facility: [facility] Address: [address] [place] [address] Performed By: #### 2 4356-8 ####[facility]ORATORYCLIA [id number] [address] [place] pH (U) 6.0 [pH] Normal 5.0-8.0 [facility] Comment on above: Order Comment: Speci men Type: URINE SPECIMENOrdering Facility: [facility] Address: [address] [place] [address] Performed By: #### 2 4356-8 ####[facility]ENTERIA [id number] [address] Protein (U) [Mass/Vol] 1+ Abnormal Trace , Negative [facility] Comment on above: Order Comment: Speci men Type: URINE SPECIMENOrdering Facility: [facility] Address: [address] [place] [address] Performed By: #### 2 4356-8 ####[facility]ENTERIA [id number] [place] [id number] [place] RBC LM.HPF (Urine sed) [#/Area] 3-5 /HPF Abnormal 0-3 /HPF [facility] Comment on above: Order Comment: Speci men Type: URINE SPECIMENOrdering Facility: [facility] Address: [address] [place] [address] Performed By: #### 2 4356-8 ####[facility]ENTERIA [id number] [address] Specific gravity (U) [Rel density] >1.040 High 1.005-1.03 0 [facility] Comment on above: Order Comment: Speci men Type: URINE SPECIMENOrdering Facility: [facility] Address: [address] [place] [address] Performed By: #### 2 4356-8 ####[facility] LABORATORYCLIA [id number] [address] Urobilinogen Ql (U) Normal Normal Normal [facility] Comment on above: Order Comment: Speci men Type: URINE SPECIMENOrdering Facility: [facility] Address: [address] [place] [address] Performed By: #### 2 4356-8 ####[facility]ORATORYCLIA [id number] [address] WBC LM.HPF (Urine sed) [#/Area] 0-5 /HPF Normal 0-5 /HPF [facility] Comment on above: Order Comment: Speci men Type: URINE SPECIMENOrdering Facility: [facility] Address: [address] [place] [address] Performed By: #### 2 4356-8 ####[facility]ORATORYCLIA [id number] [address] [place] XR CHEST 1V FRONTALon 2024 XR CHEST 1V FRONTAL Normal [facility] aPTT PPPon 03-10-2025 aPTT Coag (PPP) [Time] 41.4 s High 23.0-32.4 [facility] Comment on above: Order Comment: Speci men Type: BLOOD SPECIMENOrdering Facility: [facility] Address: [address] [place] [address] Performed By: #### 3 4528-0, 80550-7 ####[facility] LABORATORYCLIA [id number] [place] [address] [place] CNPNon 03-09-2025 CNPN Normal [facility] CNCNPATEDon 03-08-2025 CNCNPATED Normal [facility] Basic metabolic 2000 panelon 03-07-2025 Anion gap [Moles/Vol] 11 mmol/L Normal 8-15 [facility] Comment on above: Order Comment: Speci men Type: BLOOD SPECIMENOrdering Facility: [facility] Address: [address] [place] [address] Performed By: #### 2 4321-2 ####[facility] LABORATORYCLIA [id number] [place] [address] [place] Calcium [Mass/Vol] 8.5 mg/dL Normal 8.5-10.2 [facility] Comment on above: Order Comment: Speci men Type: BLOOD SPECIMENOrdering Facility: [facility] Address: [address] [place] [address] Performed By: #### 2 4321-2 ####[facility] LABORATORYCLIA [id number] [place] [address] [place] Chloride [Moles/Vol] 102 mmol/L Normal 98-107 [facility] Comment on above: Order Comment: Speci men Type: BLOOD SPECIMENOrdering Facility: [facility] Address: [address] [place] [address] Performed By: #### 2 4321-2 ####[facility]ORATORYCLIA [id number] [place] [address] [place] CO2 [Moles/Vol] 21 mmol/L Low 22-30 [facility] Comment on above: Order Comment: Speci men Type: BLOOD SPECIMENOrdering Facility: [facility] Address: [address] [place] [address] Performed By: #### 2 4321-2 ####[facility]ORATORYCLIA [id number] [place] [address] [place] Creatinine [Mass/Vol] 0.43 mg/dL Low 0.73-1.22 [facility] Comment on above: Order Comment: Speci men Type: BLOOD SPECIMENOrdering Facility: [facility] Address: [address] [place] [address] Performed By: #### 2 4321-2 ####[facility]ORATORYCLIA [id number] [place] [address] [place] eGFRcr SerPlBld CKD-EPI 2020 119 mL/min/1.73m??? Normal >=60 [facility] Comment on above: Order Comment: Katie holman Type: BLOOD SPECIMENOrdering Facility: [facility] Address: [address] [place] [address] Result Comment: Lisa mated Glomerular Filtration Rate (eGFR) is calculated using the 2020 CKD-EPI creatinine equation. This equation utilizes serum creatinine, sex, and age as parameters. The creatinine assay has traceable calibration to isotope dilution-mass spectrometry. Refer to KDIGO guidelines for clinical interpretation. In patients with unstable renal function, e.g. those with acute kidney injury, the eGFR may not accurately reflect actual GFR. Performed By: #### 2 4321-2 ####[facility] LABORATORYCLIA [id number] [place] [address] [place] Glucose [Mass/Vol] 124 mg/dL High 74-99 [facility] Comment on above: Order Comment: Katie holman Type: BLOOD SPECIMENOrdering Facility: [facility] Address: [address] [place] [address] Result Comment: The [place] [employer] (ADA) provides guidance for cutoff values for fasting glucose and random glucose. The ADA defines fasting as no caloric intake for at least 8 hours. Fasting plasma glucose results between 100 to 125 mg/dL indicate increased risk for diabetes (prediabetes).Fasting plasma glucose results greater than or equal to 126 mg/dL meet the criteria for diagnosis of diabetes. In the absence of unequivocal hyperglycemia, results should be confirmed by repeat testing. In a patient with classic symptoms of hyperglycemia or hyperglycemic crisis, random plasma glucose results greater than or equal to 200 mg/dL meet the criteria for diagnosis of diabetes.Reference: Standards of Medical Care in Diabetes 2016, [place] [employer]. Diabetes Care. 2016.39(Suppl 1). Performed By: #### 2 4321-2 ####[facility] LABORATORYCLIA [id number] [place] [address] [place] Potassium [Moles/Vol] 3.4 mmol/L Low 3.7-5.1 [facility] Comment on above: Order Comment: Katie holman Type: BLOOD SPECIMENOrdering Facility: [facility] Address: [address] [place] [address] Performed By: #### 2 4321-2 ####[facility] LABORATORYCLIA [id number] [place] [id number] [place] Sodium [Moles/Vol] 134 mmol/L Low 136-144 [facility] Comment on above: Order Comment: Speci men Type: BLOOD SPECIMENOrdering Facility: [facility] Address: [address] [place] [address] Performed By: #### 2 4321-2 ####[facility] LABORATORYCLIA [id number] [address] [place] Urea nitrogen [Mass/Vol] 9 mg/dL Normal 9-24 [facility] Comment on above: Order Comment: Speci men Type: BLOOD SPECIMENOrdering Facility: [facility] Address: [address] [place] [address] Performed By: #### 2 4321-2 ####[facility] LABORATORYCLIA [id number] [address] CASE MANAGEMon 03-07-2025 CASE MANAGEM Normal [facility] CBC panel Auto (Bld)on 03-07 Erythrocyte distribution width (RBC) [Ratio] 20.4 % High 11.5-15.0 [facility] Comment on above: Order Comment: Speci men Type: BLOOD SPECIMENOrdering Facility: [facility] Address: [address] [place] [address] Performed By: #### 5 8410-2 ####[facility] LABORATORYCLIA [id number] [place] [address] [place] Hematocrit (Bld) [Volume fraction] 33.0 % Low 39.0-51.0 [facility] Comment on above: Order Comment: Speci men Type: BLOOD SPECIMENOrdering Facility: [facility] Address: [address] [place] [address] Performed By: #### 5 8410-2 ####[facility] LABORATORYCLIA [id number] [address] [place] Hemoglobin (Bld) [Mass/Vol] 10.5 g/dL Low 13.0-17.0 [facility] Comment on above: Order Comment: Speci men Type: BLOOD SPECIMENOrdering Facility: [facility] Address: [address] [place] [address] Performed By: #### 5 8410-2 ####[facility] LABORATORYCLIA [id number] [address] MCH (RBC) [Entitic mass] 29.1 pg Normal 26.0-34.0 [facility] Comment on above: Order Comment: Speci men Type: BLOOD SPECIMENOrdering Facility: [facility] Address: [address] [place] [address] Performed By: #### 5 8410-2 ####[facility] LABORATORYCLIA [id number] [address] MCHC (RBC) [Mass/Vol] 31.8 g/dL Normal 30.5-36.0 [facility] Comment on above: Order Comment: Speci men Type: BLOOD SPECIMENOrdering Facility: [facility] Address: [address] [place] [address] Performed By: #### 5 8410-2 ####[facility] LABORATORYCLIA [id number] [address] MCV (RBC) [Entitic vol] 91.4 fL Normal 80.0-100.0 [facility] Comment on above: Order Comment: Speci men Type: BLOOD SPECIMENOrdering Facility: [facility] Address: [address] [place] [address] Performed By: #### 5 8410-2 ####[facility] LABORATORYCLIA [id number] [address] Nucleated RBC (Bld) [#/Vol] 10*3/uL Normal <0.01 [facility] Comment on above: Order Comment: Speci men Type: BLOOD SPECIMENOrdering Facility: [facility] Address: [address] [place] [address] Performed By: #### 5 8410-2 ####[facility] LABORATORYCLIA [id number] [address] [place] Platelet mean volume (Bld) [Entitic vol] 8.9 fL Low 9.0-12.7 [facility] Comment on above: Order Comment: Speci men Type: BLOOD SPECIMENOrdering Facility: [facility] Address: [address] [place] [address] Performed By: #### 5 8410-2 ####[facility] LABORATORYCLIA [id number] [place] [address] [place] Platelets (Bld) [#/Vol] 344 10*3/uL Normal 150-400 [facility] Comment on above: Order Comment: Speci men Type: BLOOD SPECIMENOrdering Facility: [facility] Address: [address] [place] [address] Performed By: #### 5 8410-2 ####[facility] LABORATORYCLIA [id number] [place] [address] [place] RBC (Bld) [#/Vol] 3.61 10*6/uL Low 4.20-6.00 [facility] Comment on above: Order Comment: Speci men Type: BLOOD SPECIMENOrdering Facility: [facility] Address: [address] [place] [address] Performed By: #### 5 8410-2 ####[facility]ORATORYCLIA [id number] [address] [place] WBC (Bld) [#/Vol] 13.48 10*3/uL High 3.70-11.00 [facility] Comment on above: Order Comment: Speci men Type: BLOOD SPECIMENOrdering Facility: [facility] Address: [address] [place] [address] Performed By: #### 5 8410-2 ####[facility] LABORATORYCLIA [id number] [address] [place] CNDSon 03-07-2025 CNDS Normal [facility] NURSING PROGon 03-07-2025 NURSING PROG Normal [facility] XR CHEST 1V FRONTALon 2024 XR CHEST 1V FRONTAL Normal [facility] Basic metabolic 2000 panelon 03-06-2025 Anion gap [Moles/Vol] 11 mmol/L Normal 8-15 [facility] Comment on above: Order Comment: Speci men Type: BLOOD SPECIMENOrdering Facility: [facility] Address: [address] [place] [address] Performed By: #### 2 4321-2 ####[facility]ORATORYCLIA [id number] [place] [address] [place] Calcium [Mass/Vol] 8.6 mg/dL Normal 8.5-10.2 [facility] Comment on above: Order Comment: Speci men Type: BLOOD SPECIMENOrdering Facility: [facility] Address: [address] [place] [address] Performed By: #### 2 4321-2 ####[facility]ORATORYCLIA [id number] [place] [address] [place] Chloride [Moles/Vol] 101 mmol/L Normal 98-107 [facility] Comment on above: Order Comment: Speci men Type: BLOOD SPECIMENOrdering Facility: [facility] Address: [address] [place] [address] Performed By: #### 2 4321-2 ####[facility]ORATORYCLIA [id number] [place] [address] [place] CO2 [Moles/Vol] 23 mmol/L Normal 22-30 [facility] Comment on above: Order Comment: Speci men Type: BLOOD SPECIMENOrdering Facility: [facility] Address: [address] [place] [address] Performed By: #### 2 4321-2 ####[facility] LABORATORYCLIA [id number] [place] [address] [place] Creatinine [Mass/Vol] 0.44 mg/dL Low 0.73-1.22 [facility] Comment on above: Order Comment: Speci men Type: BLOOD SPECIMENOrdering Facility: [facility] Address: [address] [place] [address] Performed By: #### 2 4321-2 ####[facility] LABORATORYCLIA [id number] [place] [address] [place] eGFRcr SerPlBld CKD-EPI 2020 118 mL/min/1.73m??? Normal >=60 [facility] Comment on above: Order Comment: Katie holman Type: BLOOD SPECIMENOrdering Facility: [facility] Address: [address] [place] [address] Result Comment: Lisa mated Glomerular Filtration Rate (eGFR) is calculated using the 2020 CKD-EPI creatinine equation. This equation utilizes serum creatinine, sex, and age as parameters. The creatinine assay has traceable calibration to isotope dilution-mass spectrometry. Refer to KDIGO guidelines for clinical interpretation. In patients with unstable renal function, e.g. those with acute kidney injury, the eGFR may not accurately reflect actual GFR. Performed By: #### 2 4321-2 ####[facility]ENTERIA [id number] [place] [address] [place] Glucose [Mass/Vol] 92 mg/dL Normal 74-99 [facility] Comment on above: Order Comment: Katie holman Type: BLOOD SPECIMENOrdering Facility: [facility] Address: [address] [place] [address] Result Comment: The [place] [employer] (ADA) provides guidance for cutoff values for fasting glucose and random glucose. The ADA defines fasting as no caloric intake for at least 8 hours. Fasting plasma glucose results between 100 to 125 mg/dL indicate increased risk for diabetes (prediabetes).Fasting plasma glucose results greater than or equal to 126 mg/dL meet the criteria for diagnosis of diabetes. In the absence of unequivocal hyperglycemia, results should be confirmed by repeat testing. In a patient with classic symptoms of hyperglycemia or hyperglycemic crisis, random plasma glucose results greater than or equal to 200 mg/dL meet the criteria for diagnosis of diabetes.Reference: Standards of Medical Care in Diabetes 2016, [place] [employer]. Diabetes Care. 2016.39(Suppl 1). Performed By: #### 2 4321-2 ####[facility]ORATORYCLIA [id number] [place] [id number] [place] Potassium [Moles/Vol] 3.8 mmol/L Normal 3.7-5.1 [facility] Comment on above: Order Comment: Speci men Type: BLOOD SPECIMENOrdering Facility: [facility] Address: [address] [place] [address] Performed By: #### 2 4321-2 ####[facility]ORATORYCLIA [id number] [address] [place] Sodium [Moles/Vol] 135 mmol/L Low 136-144 [facility] Comment on above: Order Comment: Speci men Type: BLOOD SPECIMENOrdering Facility: [facility] Address: [address] [place] [address] Performed By: #### 2 4321-2 ####[facility]ORATORYCLIA [id number] [address] Urea nitrogen [Mass/Vol] 7 mg/dL Low 9-24 [facility] Comment on above: Order Comment: Speci men Type: BLOOD SPECIMENOrdering Facility: [facility] Address: [address] [place] [address] Performed By: #### 2 4321-2 ####[facility]ORATORYCLIA [id number] [address] OF [facility] CASE MANAGEMon 03-06-2025 CASE MANAGEM Normal [facility] CASE MANAGEM Normal [facility] CBC panel Auto (Bld)on 03-06 Erythrocyte distribution width (RBC) [Ratio] 20.7 % High 11.5-15.0 [facility] Comment on above: Order Comment: Speci men Type: BLOOD SPECIMENOrdering Facility: [facility] Address: [address] [place] [address] Performed By: #### 5 8410-2 ####[facility]ORATORYCLIA [id number] [address] STATES [facility] Hematocrit (Bld) [Volume fraction] 34.0 % Low 39.0-51.0 [facility] Comment on above: Order Comment: Speci men Type: BLOOD SPECIMENOrdering Facility: [facility] Address: [address] [place] [address] Performed By: #### 5 8410-2 ####[facility]ORATORYCLIA [id number] [address] Hemoglobin (Bld) [Mass/Vol] 10.7 g/dL Low 13.0-17.0 [facility] Comment on above: Order Comment: Speci men Type: BLOOD SPECIMENOrdering Facility: [facility] Address: [address] [place] [address] Performed By: #### 5 8410-2 ####[facility]ORATORYCLIA [id number] [address] STATES OF [facility] MCH (RBC) [Entitic mass] 28.5 pg Normal 26.0-34.0 [facility] Comment on above: Order Comment: Speci men Type: BLOOD SPECIMENOrdering Facility: [facility] Address: [address] [place] [address] Performed By: #### 5 8410-2 ####[facility]ORATORYCLIA [id number] [address] MCHC (RBC) [Mass/Vol] 31.5 g/dL Normal 30.5-36.0 [facility] Comment on above: Order Comment: Speci men Type: BLOOD SPECIMENOrdering Facility: [facility] Address: [address] [place] [address] Performed By: #### 5 8410-2 ####[facility]ORATORYCLIA [id number] [address] STATES [facility] MCV (RBC) [Entitic vol] 90.4 fL Normal 80.0-100.0 [facility] Comment on above: Order Comment: Speci men Type: BLOOD SPECIMENOrdering Facility: [facility] Address: [address] [place] [address] Performed By: #### 5 8410-2 ####[facility]ORATORYCLIA [id number] [address] OF [facility] Nucleated RBC (Bld) [#/Vol] 10*3/uL Normal <0.01 [facility] Comment on above: Order Comment: Speci men Type: BLOOD SPECIMENOrdering Facility: [facility] Address: [address] [place] [address] Performed By: #### 5 8410-2 ####[facility]ORATORYCLIA [id number] [address] [place] Platelet mean volume (Bld) [Entitic vol] 9.5 fL Normal 9.0-12.7 [facility] Comment on above: Order Comment: Speci men Type: BLOOD SPECIMENOrdering Facility: [facility] Address: [address] [place] [address] Performed By: #### 5 8410-2 ####[facility]ORATORYCLIA [id number] [address] [place] Platelets (Bld) [#/Vol] 368 10*3/uL Normal 150-400 [facility] Comment on above: Order Comment: Speci men Type: BLOOD SPECIMENOrdering Facility: [facility] Address: [address] [place] [address] Performed By: #### 5 8410-2 ####[facility]ORATORYCLIA [id number] [place] [address] [place] RBC (Bld) [#/Vol] 3.76 10*6/uL Low 4.20-6.00 [facility] Comment on above: Order Comment: Speci men Type: BLOOD SPECIMENOrdering Facility: [facility] Address: [address] [place] [address] Performed By: #### 5 8410-2 ####[facility]ORATORYCLIA [id number] [place] [address] [place] WBC (Bld) [#/Vol] 11.78 10*3/uL High 3.70-11.00 [facility] Comment on above: Order Comment: Speci men Type: BLOOD SPECIMENOrdering Facility: [facility] Address: [address] [place] [address] Performed By: #### 5 8410-2 ####[facility] LABORATORYCLIA [id number] [place] [address] [place] NURSING PROGon 03-06-2025 NURSING PROG Normal [facility] THERAPY NTon 03-06-2025 THERAPY NT Normal [facility] XR CHEST 1V FRONTALon 2024 XR CHEST 1V FRONTAL Normal [facility] ALLIED HEALTHon 03-05-2025 ALLIED HEALTH Normal [facility] Basic metabolic 2000 panelon 03-05-2025 Anion gap [Moles/Vol] 9 mmol/L Normal 8-15 [facility] Comment on above: Order Comment: Speci men Type: BLOOD SPECIMENOrdering Facility: [facility] Address: [address] [place] [address] Performed By: #### 2 4321-2 ####[facility]ORATORYCLIA [id number] [place] [address] [place] Calcium [Mass/Vol] 8.5 mg/dL Normal 8.5-10.2 [facility] Comment on above: Order Comment: Speci men Type: BLOOD SPECIMENOrdering Facility: [facility] Address: [address] [place] [address] Performed By: #### 2 4321-2 ####[facility]ORATORYCLIA [id number] [place] [address] [place] Chloride [Moles/Vol] 103 mmol/L Normal 98-107 [facility] Comment on above: Order Comment: Speci men Type: BLOOD SPECIMENOrdering Facility: [facility] Address: [address] [place] [address] Performed By: #### 2 4321-2 ####[facility]ORATORYCLIA [id number] [place] [address] [place] CO2 [Moles/Vol] 24 mmol/L Normal 22-30 [facility] Comment on above: Order Comment: Speci men Type: BLOOD SPECIMENOrdering Facility: [facility] Address: [address] [place] [address] Performed By: #### 2 4321-2 ####[facility]ORATORYCLIA [id number] [address] STATES OF [facility] Creatinine [Mass/Vol] 0.39 mg/dL Low 0.73-1.22 [facility] Comment on above: Order Comment: Katie holman Type: BLOOD SPECIMENOrdering Facility: [facility] Address: [address] [place] [address] Performed By: #### 2 4321-2 ####[facility]ORATORYCLIA [id number] [address] eGFRcr SerPlBld CKD-EPI 2020 123 mL/min/1.73m??? Normal >=60 [facility] Comment on above: Order Comment: Katie holman Type: BLOOD SPECIMENOrdering Facility: [facility] Address: [address] [place] [address] Result Comment: Lisa mated Glomerular Filtration Rate (eGFR) is calculated using the 2020 CKD-EPI creatinine equation. This equation utilizes serum creatinine, sex, and age as parameters. The creatinine assay has traceable calibration to isotope dilution-mass spectrometry. Refer to KDIGO guidelines for clinical interpretation. In patients with unstable renal function, e.g. those with acute kidney injury, the eGFR may not accurately reflect actual GFR. Performed By: #### 2 4321-2 ####[facility] CENTERIA [id number] [address] STATES OF [facility] Glucose [Mass/Vol] 84 mg/dL Normal 74-99 [facility] Comment on above: Order Comment: Katie holman Type: BLOOD SPECIMENOrdering Facility: [facility] Address: [address] [place] [address] Result Comment: The [place] [employer] (ADA) provides guidance for cutoff values for fasting glucose and random glucose. The ADA defines fasting as no caloric intake for at least 8 hours. Fasting plasma glucose results between 100 to 125 mg/dL indicate increased risk for diabetes (prediabetes).Fasting plasma glucose results greater than or equal to 126 mg/dL meet the criteria for diagnosis of diabetes. In the absence of unequivocal hyperglycemia, results should be confirmed by repeat testing. In a patient with classic symptoms of hyperglycemia or hyperglycemic crisis, random plasma glucose results greater than or equal to 200 mg/dL meet the criteria for diagnosis of diabetes.Reference: Standards of Medical Care in Diabetes 2016, [place] [employer]. Diabetes Care. 2016.39(Suppl 1). Performed By: #### 2 4321-2 ####[facility]ORATORYCLIA [id number] [address] Potassium [Moles/Vol] 3.8 mmol/L Normal 3.7-5.1 [facility] Comment on above: Order Comment: Speci men Type: BLOOD SPECIMENOrdering Facility: [facility] Address: [facility] [place] [address] Performed By: #### 2 4321-2 ####[facility] LABORATORYCLIA [id number] [address] Sodium [Moles/Vol] 136 mmol/L Normal 136-144 [facility] Comment on above: Order Comment: Speci men Type: BLOOD SPECIMENOrdering Facility: [facility] Address: [address] [place] [address] Performed By: #### 2 4321-2 ####[facility]ORATORYCLIA [id number] [address] Urea nitrogen [Mass/Vol] 7 mg/dL Low 9-24 [facility] Comment on above: Order Comment: Speci men Type: BLOOD SPECIMENOrdering Facility: [facility] Address: [address] [place] [address] Performed By: #### 2 4321-2 ####[facility]ORATORYCLIA [id number] [address] CBC panel Auto (Bld)on 03-05 Erythrocyte distribution width (RBC) [Ratio] 21.1 % High 11.5-15.0 [facility] Comment on above: Order Comment: Speci men Type: BLOOD SPECIMENOrdering Facility: [facility] Address: [address] [place] [address] Performed By: #### 5 8410-2 ####[facility] LABORATORYCLIA [id number] [place] [address] [place] Hematocrit (Bld) [Volume fraction] 30.7 % Low 39.0-51.0 [facility] Comment on above: Order Comment: Speci men Type: BLOOD SPECIMENOrdering Facility: [facility] Address: [address] [place] [address] Performed By: #### 5 8410-2 ####[facility]ORATORYCLIA [id number] [address] STATES OF [facility] Hemoglobin (Bld) [Mass/Vol] 9.9 g/dL Low 13.0-17.0 [facility] Comment on above: Order Comment: Speci men Type: BLOOD SPECIMENOrdering Facility: [facility] Address: [address] [place] [address] Performed By: #### 5 8410-2 ####[facility]ORATORYCLIA [id number] [address] [place] MCH (RBC) [Entitic mass] 29.5 pg Normal 26.0-34.0 [facility] Comment on above: Order Comment: Speci men Type: BLOOD SPECIMENOrdering Facility: [facility] Address: [address] [place] [address] Performed By: #### 5 8410-2 ####[facility] LABORATORYCLIA [id number] [address] [place] MCHC (RBC) [Mass/Vol] 32.2 g/dL Normal 30.5-36.0 [facility] Comment on above: Order Comment: Speci men Type: BLOOD SPECIMENOrdering Facility: [facility] Address: [address] [place] [address] Performed By: #### 5 8410-2 ####[facility] LABORATORYCLIA [id number] [address] [place] MCV (RBC) [Entitic vol] 91.4 fL Normal 80.0-100.0 [facility] Comment on above: Order Comment: Speci men Type: BLOOD SPECIMENOrdering Facility: [facility] Address: [address] [place] [address] Performed By: #### 5 8410-2 ####[facility] LABORATORYCLIA [id number] [address] [place] Nucleated RBC (Bld) [#/Vol] 10*3/uL Normal <0.01 [facility] Comment on above: Order Comment: Speci men Type: BLOOD SPECIMENOrdering Facility: [facility] Address: [address] [place] [address] Performed By: #### 5 8410-2 ####[facility]ORATORYCLIA [id number] [address] [place] Platelet mean volume (Bld) [Entitic vol] 9.7 fL Normal 9.0-12.7 [facility] Comment on above: Order Comment: Speci men Type: BLOOD SPECIMENOrdering Facility: [facility] Address: [address] [place] [address] Performed By: #### 5 8410-2 ####[facility]ORATORYCLIA [id number] [address] Platelets (Bld) [#/Vol] 300 10*3/uL Normal 150-400 [facility] Comment on above: Order Comment: Speci men Type: BLOOD SPECIMENOrdering Facility: [facility] Address: [address] [place] [address] Performed By: #### 5 8410-2 ####[facility] LABORATORYCLIA [id number] [address] [place] RBC (Bld) [#/Vol] 3.36 10*6/uL Low 4.20-6.00 [facility] Comment on above: Order Comment: Speci men Type: BLOOD SPECIMENOrdering Facility: [facility] Address: [address] [place] [address] Performed By: #### 5 8410-2 ####[facility] LABORATORYCLIA [id number] [place] [address] [place] WBC (Bld) [#/Vol] 12.93 10*3/uL High 3.70-11.00 [facility] Comment on above: Order Comment: Speci men Type: BLOOD SPECIMENOrdering Facility: [facility] Address: [address] [place] [address] Performed By: #### 5 8410-2 ####[facility] LABORATORYCLIA [id number] [place] [address] [place] XR CHEST 1V FRONTALon 2024 XR CHEST 1V FRONTAL Normal [facility] Basic metabolic 2000 panelon 03-04-2025 Anion gap [Moles/Vol] 10 mmol/L Normal 8-15 [facility] Comment on above: Order Comment: Speci men Type: BLOOD SPECIMENOrdering Facility: [facility] Address: [address] [place] [address] Performed By: #### 2 4321-2 ####[facility] LABORATORYCLIA [id number] [place] [address] [place] Calcium [Mass/Vol] 8.3 mg/dL Low 8.5-10.2 [facility] Comment on above: Order Comment: Speci men Type: BLOOD SPECIMENOrdering Facility: [facility] Address: [address] [place] [address] Performed By: #### 2 4321-2 ####[facility] LABORATORYCLIA [id number] [place] [address] [place] Chloride [Moles/Vol] 100 mmol/L Normal 98-107 [facility] Comment on above: Order Comment: Speci men Type: BLOOD SPECIMENOrdering Facility: [facility] Address: [address] [place] [address] Performed By: #### 2 4321-2 ####[facility] LABORATORYCLIA [id number] [place] [address] [place] CO2 [Moles/Vol] 24 mmol/L Normal 22-30 [facility] Comment on above: Order Comment: Speci men Type: BLOOD SPECIMENOrdering Facility: [facility] Address: [address] [place] [address] Performed By: #### 2 4321-2 ####[facility] LABORATORYCLIA [id number] [place] [address] [place] Creatinine [Mass/Vol] 0.41 mg/dL Low 0.73-1.22 [facility] Comment on above: Order Comment: Katie holman Type: BLOOD SPECIMENOrdering Facility: [facility] Address: [address] [place] [address] Performed By: #### 2 4321-2 ####[facility] LABORATORYCLIA [id number] [address] OF [facility] eGFRcr SerPlBld CKD-EPI 2020 121 mL/min/1.73m??? Normal >=60 [facility] Comment on above: Order Comment: Katie holman Type: BLOOD SPECIMENOrdering Facility: [facility] Address: [address] [place] [address] Result Comment: Lisa mated Glomerular Filtration Rate (eGFR) is calculated using the 2020 CKD-EPI creatinine equation. This equation utilizes serum creatinine, sex, and age as parameters. The creatinine assay has traceable calibration to isotope dilution-mass spectrometry. Refer to KDIGO guidelines for clinical interpretation. In patients with unstable renal function, e.g. those with acute kidney injury, the eGFR may not accurately reflect actual GFR. Performed By: #### 2 4321-2 ####[facility] LABORATORYIA [id number] [address] [place] Glucose [Mass/Vol] 101 mg/dL High 74-99 [facility] Comment on above: Order Comment: Katie holman Type: BLOOD SPECIMENOrdering Facility: [facility] Address: [address] [place] [address] Result Comment: The [place] [employer] (ADA) provides guidance for cutoff values for fasting glucose and random glucose. The ADA defines fasting as no caloric intake for at least 8 hours. Fasting plasma glucose results between 100 to 125 mg/dL indicate increased risk for diabetes (prediabetes).Fasting plasma glucose results greater than or equal to 126 mg/dL meet the criteria for diagnosis of diabetes. In the absence of unequivocal hyperglycemia, results should be confirmed by repeat testing. In a patient with classic symptoms of hyperglycemia or hyperglycemic crisis, random plasma glucose results greater than or equal to 200 mg/dL meet the criteria for diagnosis of diabetes.Reference: Standards of Medical Care in Diabetes 2016, [place] [employer]. Diabetes Care. 2016.39(Suppl 1). Performed By: #### 2 4321-2 ####[facility] LABORATORYCLIA [id number] [address] Potassium [Moles/Vol] 3.8 mmol/L Normal 3.7-5.1 [facility] Comment on above: Order Comment: Speci men Type: BLOOD SPECIMENOrdering Facility: [facility] Address: [address] [place] [address] Performed By: #### 2 4321-2 ####[facility] LABORATORYCLIA [id number] [address] Sodium [Moles/Vol] 134 mmol/L Low 136-144 [facility] Comment on above: Order Comment: Speci men Type: BLOOD SPECIMENOrdering Facility: [facility] Address: [address] [place] [address] Performed By: #### 2 4321-2 ####[facility] LABORATORYCLIA [id number] [address] Urea nitrogen [Mass/Vol] 6 mg/dL Low 9-24 [facility] Comment on above: Order Comment: Speci men Type: BLOOD SPECIMENOrdering Facility: [facility] Address: [address] [place] [address] Performed By: #### 2 4321-2 ####[facility] LABORATORYCLIA [id number] [address] CBC panel Auto (Bld)on 03-04 Erythrocyte distribution width (RBC) [Ratio] 21.1 % High 11.5-15.0 [facility] Comment on above: Order Comment: Speci men Type: BLOOD SPECIMENOrdering Facility: [facility] Address: [address] [place] [address] Performed By: #### 5 8410-2 ####[facility] LABORATORYCLIA [id number] [address] Hematocrit (Bld) [Volume fraction] 31.5 % Low 39.0-51.0 [facility] Comment on above: Order Comment: Speci men Type: BLOOD SPECIMENOrdering Facility: [facility] Address: [address] [place] [address] Performed By: #### 5 8410-2 ####[facility] LABORATORYCLIA [id number] [address] STATES OF [facility] Hemoglobin (Bld) [Mass/Vol] 10.0 g/dL Low 13.0-17.0 [facility] Comment on above: Order Comment: Speci men Type: BLOOD SPECIMENOrdering Facility: [facility] Address: [address] [place] [address] Performed By: #### 5 8410-2 ####[facility] LABORATORYCLIA [id number] [address] [place] MCH (RBC) [Entitic mass] 29.2 pg Normal 26.0-34.0 [facility] Comment on above: Order Comment: Speci men Type: BLOOD SPECIMENOrdering Facility: [facility] Address: [address] [place] [address] Performed By: #### 5 8410-2 ####[facility] LABORATORYCLIA [id number] [address] [place] MCHC (RBC) [Mass/Vol] 31.7 g/dL Normal 30.5-36.0 [facility] Comment on above: Order Comment: Speci men Type: BLOOD SPECIMENOrdering Facility: [facility] Address: [address] [place] [address] Performed By: #### 5 8410-2 ####[facility] LABORATORYCLIA [id number] [address] [place] MCV (RBC) [Entitic vol] 92.1 fL Normal 80.0-100.0 [facility] Comment on above: Order Comment: Speci men Type: BLOOD SPECIMENOrdering Facility: [facility] Address: [address] [place] [address] Performed By: #### 5 8410-2 ####[facility] LABORATORYCLIA [id number] [address] [place] Nucleated RBC (Bld) [#/Vol] 10*3/uL Normal <0.01 [facility] Comment on above: Order Comment: Speci men Type: BLOOD SPECIMENOrdering Facility: [facility] Address: [address] [place] [address] Performed By: #### 5 8410-2 ####[facility]ORATORYCLIA [id number] [address] [place] Platelet mean volume (Bld) [Entitic vol] 9.2 fL Normal 9.0-12.7 [facility] Comment on above: Order Comment: Speci men Type: BLOOD SPECIMENOrdering Facility: [facility] Address: [address] [place] [address] Performed By: #### 5 8410-2 ####[facility]ORATORYCLIA [id number] [address] [place] Platelets (Bld) [#/Vol] 258 10*3/uL Normal 150-400 [facility] Comment on above: Order Comment: Speci men Type: BLOOD SPECIMENOrdering Facility: [facility] Address: [address] [place] [address] Performed By: #### 5 8410-2 ####[facility]ORATORYCLIA [id number] [address] [place] RBC (Bld) [#/Vol] 3.42 10*6/uL Low 4.20-6.00 [facility] Comment on above: Order Comment: Speci men Type: BLOOD SPECIMENOrdering Facility: [facility] Address: [address] [place] [address] Performed By: #### 5 8410-2 ####[facility]ORATORYCLIA [id number] [address] [place] WBC (Bld) [#/Vol] 13.25 10*3/uL High 3.70-11.00 [facility] Comment on above: Order Comment: Katie holman Type: BLOOD SPECIMENOrdering Facility: [facility] Address: [address] [place] [address] Performed By: #### 5 8410-2 ####[facility] LABORATORYCLIA [id number] [place] [id number] [place] XR CHEST 1V FRONTALon 2024 XR CHEST 1V FRONTAL Normal [facility] Amylase (Body fld) [Catalyti c activity/Vol]on 03-03-2025 Fluid Nom (Body fld) Drainage (Specify s ite in comment) Normal [facility] Comment on above: Order Comment: Katie holman Type: FLUID SPECIMENOrdering Facility: [facility] Address: [address] [place] [address] Result Comment: Ches t Tube Performed By: #### 1 795-4 ####[facility] LABORATORYCLIA [id number] [address] [place] Amylase Fld-cCncon Amylase (Body fld) [Catalytic activity/Vol] 17 U/L Normal See Comment [facility] Comment on above: Order Comment: Katie holman Type: FLUID SPECIMENOrdering Facility: [facility] Address: [address] [place] [address] Result Comment: PLEU RAL FLUIDS:Amylase measurement in pleural fluid is considered a useful test for detecting amylase-rich pleural effusions, which may be caused by exudative conditions associated with pancreatitis, esophageal rupture, malignancy, pneumonia, and liver cirrhosis. A ratio of pleural fluid amylase to a concurrent serum amylase >1 is defined asan amylase-rich pleural effusion.PERITONEAL FLUIDS AND DRAINAGE FLUIDS:Pancreatic damage causes extravasation of amylase from the exocrine cells into the peritoneal space. In cases of pancreatitis, fluid amylase should be at least several-fold times higher in fluid of pancreatic origin compared to concurrent serum amylase values.PANCREATIC CYST FLUID:Pancreatic cyst fluid amylase may aid in characterizing tumors and should be interpreted along with other clinical and laboratory information.References:1. Nena GUERRERO, Nehemiah Cortes. Body fluid analysis: clinical utility and applicability of published studies to guide interpretation of todays laboratory testing in serous fluids. Crit Rev Clin Lab Sci, 2013;50(4-5):107-124.2. CLSI. Analysis of Body Fluids in Clinical Chemistry; Approved Guideline. CLSI document C49-A. NATASHA Diallo: Clinical Laboratory Standards [place]; 2007.3. Fior VALLADARES, Kaveh RICE, Allegra DJ. Use of cyst fluid CEA, CA19-9, and amylase for evaluation of pancreatic lesions. Clinical Biochemistry. 2009;42:8501-6679.This test was developed, and its performance characteristics determined by the [facility] Department of Pathology and Laboratory Medicine. It has not been cleared or approved by the FDA. The [facility] Department of Pathology and Laboratory Medicine is regulated under CLIA as qualified to perform high-complexity testing. This test is used for clinical purposes. It should not be regarded as investigational or for research. Performed By: #### 1 795-4 ####[facility] LABORATORYCLIA [id number] [place] [address] [place] Basic metabolic 2000 panelon 03-03-2025 Anion gap [Moles/Vol] 8 mmol/L Normal 8-15 [facility] Comment on above: Order Comment: Speci men Type: BLOOD SPECIMENOrdering Facility: [facility] Address: [address] [place] [address] Performed By: #### 2 4321-2 ####[facility]ORATORYCLIA [id number] [place] [address] [place] Calcium [Mass/Vol] 8.0 mg/dL Low 8.5-10.2 [facility] Comment on above: Order Comment: Speci men Type: BLOOD SPECIMENOrdering Facility: [facility] Address: [address] [place] [address] Performed By: #### 2 4321-2 ####[facility] LABORATORYCLIA [id number] [address] [place] Chloride [Moles/Vol] 104 mmol/L Normal 98-107 [facility] Comment on above: Order Comment: Speci men Type: BLOOD SPECIMENOrdering Facility: [facility] Address: [address] [place] [address] Performed By: #### 2 4321-2 ####[facility]ORATORYCLIA [id number] [address] STATES OF [facility] CO2 [Moles/Vol] 26 mmol/L Normal 22-30 [facility] Comment on above: Order Comment: Speci men Type: BLOOD SPECIMENOrdering Facility: [facility] Address: [address] [place] [address] Performed By: #### 2 4321-2 ####[facility]ORATORYCLIA [id number] [address] STATES OF [facility] Creatinine [Mass/Vol] 0.39 mg/dL Low 0.73-1.22 [facility] Comment on above: Order Comment: Speci men Type: BLOOD SPECIMENOrdering Facility: [facility] Address: [address] [place] [address] Performed By: #### 2 4321-2 ####[facility]ENTERIA [id number] [address] eGFRcr SerPlBld CKD-EPI 2020 123 mL/min/1.73m??? Normal >=60 [facility] Comment on above: Order Comment: Speci men Type: BLOOD SPECIMENOrdering Facility: [facility] Address: [address] [place] [address] Result Comment: Lisa mated Glomerular Filtration Rate (eGFR) is calculated using the 2020 CKD-EPI creatinine equation. This equation utilizes serum creatinine, sex, and age as parameters. The creatinine assay has traceable calibration to isotope dilution-mass spectrometry. Refer to KDIGO guidelines for clinical interpretation. In patients with unstable renal function, e.g. those with acute kidney injury, the eGFR may not accurately reflect actual GFR. Performed By: #### 2 4321-2 ####[facility]ORATORYCLIA [id number] [address] STATES OF [facility] Glucose [Mass/Vol] 104 mg/dL High 74-99 [facility] Comment on above: Order Comment: Speci men Type: BLOOD SPECIMENOrdering Facility: [facility] Address: [address] [place] [address] Result Comment: The [place] [employer] (ADA) provides guidance for cutoff values for fasting glucose and random glucose. The ADA defines fasting as no caloric intake for at least 8 hours. Fasting plasma glucose results between 100 to 125 mg/dL indicate increased risk for diabetes (prediabetes).Fasting plasma glucose results greater than or equal to 126 mg/dL meet the criteria for diagnosis of diabetes. In the absence of unequivocal hyperglycemia, results should be confirmed by repeat testing. In a patient with classic symptoms of hyperglycemia or hyperglycemic crisis, random plasma glucose results greater than or equal to 200 mg/dL meet the criteria for diagnosis of diabetes.Reference: Standards of Medical Care in Diabetes 2016, [place] [employer]. Diabetes Care. 2016.39(Suppl 1). Performed By: #### 2 4321-2 ####[facility] LABORATORYCLIA [id number] [address] STATES OF [facility] Potassium [Moles/Vol] 3.9 mmol/L Normal 3.7-5.1 [facility] Comment on above: Order Comment: Speci men Type: BLOOD SPECIMENOrdering Facility: [facility] Address: [address] [place] [address] Performed By: #### 2 4321-2 ####[facility]ORATORYCLIA [id number] [address] Sodium [Moles/Vol] 138 mmol/L Normal 136-144 [facility] Comment on above: Order Comment: Speci men Type: BLOOD SPECIMENOrdering Facility: [facility] Address: [address] [place] [address] Performed By: #### 2 4321-2 ####[facility]ORATORYCLIA [id number] [address] STATES [facility] Urea nitrogen [Mass/Vol] 7 mg/dL Low 9-24 [facility] Comment on above: Order Comment: Speci men Type: BLOOD SPECIMENOrdering Facility: [facility] Address: [address] [place] [address] Performed By: #### 2 4321-2 ####[facility]ORATORYCLIA [id number] [address] OF [facility] CASE MANAGEMon 03-03-2025 CASE MANAGEM Normal [facility] CASE MANAGEM Normal [facility] CBC panel Auto (Bld)on 03-03 Erythrocyte distribution width (RBC) [Ratio] 20.9 % High 11.5-15.0 [facility] Comment on above: Order Comment: Speci men Type: BLOOD SPECIMENOrdering Facility: [facility] Address: [address] [place] [address] Performed By: #### 5 8410-2 ####[facility]ORATORYCLIA [id number] [address] Hematocrit (Bld) [Volume fraction] 30.8 % Low 39.0-51.0 [facility] Comment on above: Order Comment: Speci men Type: BLOOD SPECIMENOrdering Facility: [facility] Address: [address] [place] [address] Performed By: #### 5 8410-2 ####[facility]ORATORYCLIA [id number] [address] OF [facility] Hemoglobin (Bld) [Mass/Vol] 9.6 g/dL Low 13.0-17.0 [facility] Comment on above: Order Comment: Speci men Type: BLOOD SPECIMENOrdering Facility: [facility] Address: [address] [place] [address] Performed By: #### 5 8410-2 ####[facility]ORATORYCLIA [id number] [address] STATES [facility] MCH (RBC) [Entitic mass] 29.1 pg Normal 26.0-34.0 [facility] Comment on above: Order Comment: Speci men Type: BLOOD SPECIMENOrdering Facility: [facility] Address: [address] [place] [address] Performed By: #### 5 8410-2 ####[facility]ATORYCLIA [id number] [address] [place] MCHC (RBC) [Mass/Vol] 31.2 g/dL Normal 30.5-36.0 [facility] Comment on above: Order Comment: Speci men Type: BLOOD SPECIMENOrdering Facility: [facility] Address: [address] [place] [address] Performed By: #### 5 8410-2 ####[facility]ATORYCLIA [id number] [address] [place] MCV (RBC) [Entitic vol] 93.3 fL Normal 80.0-100.0 [facility] Comment on above: Order Comment: Speci men Type: BLOOD SPECIMENOrdering Facility: [facility] Address: [address] [place] [address] Performed By: #### 5 8410-2 ####[facility]ORATORYCLIA [id number] [address] STATES OF [facility] Nucleated RBC (Bld) [#/Vol] 10*3/uL Normal <0.01 [facility] Comment on above: Order Comment: Speci men Type: BLOOD SPECIMENOrdering Facility: [facility] Address: [address] [place] [address] Performed By: #### 5 8410-2 ####[facility]ORATORYCLIA [id number] [address] Platelet mean volume (Bld) [Entitic vol] 9.0 fL Normal 9.0-12.7 [facility] Comment on above: Order Comment: Speci men Type: BLOOD SPECIMENOrdering Facility: [facility] Address: [address] [place] [address] Performed By: #### 5 8410-2 ####[facility]ORATORYCLIA [id number] [address] [place] Platelets (Bld) [#/Vol] 223 10*3/uL Normal 150-400 [facility] Comment on above: Order Comment: Speci men Type: BLOOD SPECIMENOrdering Facility: [facility] Address: [address] [place] [address] Performed By: #### 5 8410-2 ####[facility] LABORATORYCLIA [id number] [place] [address] [place] RBC (Bld) [#/Vol] 3.30 10*6/uL Low 4.20-6.00 [facility] Comment on above: Order Comment: Speci men Type: BLOOD SPECIMENOrdering Facility: [facility] Address: [address] [place] [address] Performed By: #### 5 8410-2 ####[facility]ORATORYCLIA [id number] [place] [address] [place] WBC (Bld) [#/Vol] 12.05 10*3/uL High 3.70-11.00 [facility] Comment on above: Order Comment: Speci men Type: BLOOD SPECIMENOrdering Facility: [facility] Address: [address] [place] [address] Performed By: #### 5 8410-2 ####[facility]ORATORYCLIA [id number] [address] [place] NURSING PROGon 03-03-2025 NURSING PROG Normal [facility] XR CHEST 1V FRONTALon 2024 XR CHEST 1V FRONTAL Normal [facility] XR UPPER GI SINGLE CONTRASTo n 03-03-2025 XR UPPER GI SINGLE CONTRAST Normal [facility] ALLIED HEALTHon 03-02-2025 ALLIED HEALTH Normal [facility] Basic metabolic 2000 panelon 03-02-2025 Anion gap [Moles/Vol] 8 mmol/L Normal 8-15 [facility] Comment on above: Order Comment: Speci men Type: BLOOD SPECIMENOrdering Facility: [facility] Address: [address] [place] [address] Performed By: #### 2 4321-2 ####[facility]ORATORYCLIA [id number] [address] [place] Calcium [Mass/Vol] 8.1 mg/dL Low 8.5-10.2 [facility] Comment on above: Order Comment: Speci men Type: BLOOD SPECIMENOrdering Facility: [facility] Address: [address] [place] [address] Performed By: #### 2 4321-2 ####[facility]ORATORYCLIA [id number] [address] [place] Chloride [Moles/Vol] 104 mmol/L Normal 98-107 [facility] Comment on above: Order Comment: Speci men Type: BLOOD SPECIMENOrdering Facility: [facility] Address: [address] [place] [address] Performed By: #### 2 4321-2 ####[facility]ORATORYCLIA [id number] [address] OF [facility] CO2 [Moles/Vol] 26 mmol/L Normal 22-30 [facility] Comment on above: Order Comment: Speci men Type: BLOOD SPECIMENOrdering Facility: [facility] Address: [address] [place] [address] Performed By: #### 2 4321-2 ####[facility]ORATORYCLIA [id number] [address] STATES OF [facility] Creatinine [Mass/Vol] 0.47 mg/dL Low 0.73-1.22 [facility] Comment on above: Order Comment: Speci men Type: BLOOD SPECIMENOrdering Facility: [facility] Address: [address] [place] [address] Performed By: #### 2 4321-2 ####[facility] LABORATORYCLIA [id number] [address] [place] eGFRcr SerPlBld CKD-EPI 2020 116 mL/min/1.73m??? Normal >=60 [facility] Comment on above: Order Comment: Speci men Type: BLOOD SPECIMENOrdering Facility: [facility] Address: [address] [place] [address] Result Comment: Lisa mated Glomerular Filtration Rate (eGFR) is calculated using the 2020 CKD-EPI creatinine equation. This equation utilizes serum creatinine, sex, and age as parameters. The creatinine assay has traceable calibration to isotope dilution-mass spectrometry. Refer to KDIGO guidelines for clinical interpretation. In patients with unstable renal function, e.g. those with acute kidney injury, the eGFR may not accurately reflect actual GFR. Performed By: #### 2 4321-2 ####[facility] LABORATORYCLIA [id number] [place] [address] [place] Glucose [Mass/Vol] 92 mg/dL Normal 74-99 [facility] Comment on above: Order Comment: Speci men Type: BLOOD SPECIMENOrdering Facility: [facility] Address: [address] [place] [address] Result Comment: The [place] [employer] (ADA) provides guidance for cutoff values for fasting glucose and random glucose. The ADA defines fasting as no caloric intake for at least 8 hours. Fasting plasma glucose results between 100 to 125 mg/dL indicate increased risk for diabetes (prediabetes).Fasting plasma glucose results greater than or equal to 126 mg/dL meet the criteria for diagnosis of diabetes. In the absence of unequivocal hyperglycemia, results should be confirmed by repeat testing. In a patient with classic symptoms of hyperglycemia or hyperglycemic crisis, random plasma glucose results greater than or equal to 200 mg/dL meet the criteria for diagnosis of diabetes.Reference: Standards of Medical Care in Diabetes 2016, [place] [employer]. Diabetes Care. 2016.39(Suppl 1). Performed By: #### 2 4321-2 ####[facility] LABORATORYCLIA [id number] [place] [address] [place] Potassium [Moles/Vol] 3.7 mmol/L Normal 3.7-5.1 [facility] Comment on above: Order Comment: Aleshai men Type: BLOOD SPECIMENOrdering Facility: [facility] Address: [address] [place] [address] Performed By: #### 2 4321-2 ####[facility] LABORATORYCLIA [id number] [place] [address] [place] Sodium [Moles/Vol] 138 mmol/L Normal 136-144 [facility] Comment on above: Order Comment: Speci men Type: BLOOD SPECIMENOrdering Facility: [facility] Address: [address] [place] [address] Performed By: #### 2 4321-2 ####[facility]ORATORYCLIA [id number] [place] [address] [place] Urea nitrogen [Mass/Vol] 8 mg/dL Low 9-24 [facility] Comment on above: Order Comment: Speci men Type: BLOOD SPECIMENOrdering Facility: [facility] Address: [address] [place] [address] Performed By: #### 2 4321-2 ####[facility] LABORATORYCLIA [id number] [place] [id number] [place] CASE MANAGEMon 03-02-2025 CASE MANAGEM Normal [facility] CBC panel Auto (Bld)on 03-02 Erythrocyte distribution width (RBC) [Ratio] 21.4 % High 11.5-15.0 [facility] Comment on above: Order Comment: Speci men Type: BLOOD SPECIMENOrdering Facility: [facility] Address: [address] [place] [address] Performed By: #### 5 8410-2 ####[facility] LABORATORYCLIA [id number] [address] STATES [facility] Hematocrit (Bld) [Volume fraction] 33.9 % Low 39.0-51.0 [facility] Comment on above: Order Comment: Speci men Type: BLOOD SPECIMENOrdering Facility: [facility] Address: [address] [place] [address] Performed By: #### 5 8410-2 ####[facility] LABORATORYCLIA [id number] [address] [place] Hemoglobin (Bld) [Mass/Vol] 10.4 g/dL Low 13.0-17.0 [facility] Comment on above: Order Comment: Speci men Type: BLOOD SPECIMENOrdering Facility: [facility] Address: [address] [place] [address] Performed By: #### 5 8410-2 ####[facility] LABORATORYCLIA [id number] [address] [place] MCH (RBC) [Entitic mass] 28.9 pg Normal 26.0-34.0 [facility] Comment on above: Order Comment: Speci men Type: BLOOD SPECIMENOrdering Facility: [facility] Address: [address] [place] [address] Performed By: #### 5 8410-2 ####[facility] LABORATORYCLIA [id number] [address] STATES OF [facility] MCHC (RBC) [Mass/Vol] 30.7 g/dL Normal 30.5-36.0 [facility] Comment on above: Order Comment: Speci men Type: BLOOD SPECIMENOrdering Facility: [facility] Address: [address] [place] [address] Performed By: #### 5 8410-2 ####[facility] LABORATORYCLIA [id number] [address] [place] MCV (RBC) [Entitic vol] 94.2 fL Normal 80.0-100.0 [facility] Comment on above: Order Comment: Speci men Type: BLOOD SPECIMENOrdering Facility: [facility] Address: [address] [place] [address] Performed By: #### 5 8410-2 ####[facility] LABORATORYCLIA [id number] [address] [place] Nucleated RBC (Bld) [#/Vol] 10*3/uL Normal <0.01 [facility] Comment on above: Order Comment: Speci men Type: BLOOD SPECIMENOrdering Facility: [facility] Address: [address] [place] [address] Performed By: #### 5 8410-2 ####[facility] LABORATORYCLIA [id number] [address] [place] Platelet mean volume (Bld) [Entitic vol] 9.4 fL Normal 9.0-12.7 [facility] Comment on above: Order Comment: Speci men Type: BLOOD SPECIMENOrdering Facility: [facility] Address: [address] [place] [address] Performed By: #### 5 8410-2 ####[facility] LABORATORYCLIA [id number] [place] [address] [place] Platelets (Bld) [#/Vol] 228 10*3/uL Normal 150-400 [facility] Comment on above: Order Comment: Speci men Type: BLOOD SPECIMENOrdering Facility: [facility] Address: [address] [place] [address] Performed By: #### 5 8410-2 ####[facility] LABORATORYCLIA [id number] [place] [address] [place] RBC (Bld) [#/Vol] 3.60 10*6/uL Low 4.20-6.00 [facility] Comment on above: Order Comment: Speci men Type: BLOOD SPECIMENOrdering Facility: [facility] Address: [address] [place] [address] Performed By: #### 5 8410-2 ####[facility] LABORATORYCLIA [id number] [address] [place] WBC (Bld) [#/Vol] 11.14 10*3/uL High 3.70-11.00 [facility] Comment on above: Order Comment: Speci men Type: BLOOD SPECIMENOrdering Facility: [facility] Address: [address] [place] [address] Performed By: #### 5 8410-2 ####[facility] LABORATORYCLIA [id number] [address] OF [facility] THERAPY NTon 03-02-2025 THERAPY NT Normal [facility] XR ABDOMEN 1V SUPINEon 03-02 XR ABDOMEN 1V SUPINE Normal [facility] XR CHEST 1V FRONTALon 2024 XR CHEST 1V FRONTAL Normal [facility] Amylase (Body fld) [Catalyti c activity/Vol]on 03-01-2025 Fluid Nom (Body fld) Pleural Cavity, Right Normal [facility] Comment on above: Order Comment: Speci men Type: FLUID SPECIMENOrdering Facility: [facility] Address: [address] [place] [address] Result Comment: righ t chest tube Performed By: #### 1 795-4 ####[facility] LABORATORYCLIA [id number] [place] [address] [place] Amylase Fld-cCncon 5 Amylase (Body fld) [Catalytic activity/Vol] 37 U/L Normal See Comment [facility] Comment on above: Order Comment: Speci men Type: FLUID SPECIMENOrdering Facility: [facility] Address: [address] [place] [address] Result Comment: PLEU RAL FLUIDS:Amylase measurement in pleural fluid is considered a useful test for detecting amylase-rich pleural effusions, which may be caused by exudative conditions associated with pancreatitis, esophageal rupture, malignancy, pneumonia, and liver cirrhosis. A ratio of pleural fluid amylase to a concurrent serum amylase >1 is defined asan amylase-rich pleural effusion.PERITONEAL FLUIDS AND DRAINAGE FLUIDS:Pancreatic damage causes extravasation of amylase from the exocrine cells into the peritoneal space. In cases of pancreatitis, fluid amylase should be at least several-fold times higher in fluid of pancreatic origin compared to concurrent serum amylase values.PANCREATIC CYST FLUID:Pancreatic cyst fluid amylase may aid in characterizing tumors and should be interpreted along with other clinical and laboratory information.References:1. Nena GUERRERO, Nehemiah Cortes. Body fluid analysis: clinical utility and applicability of published studies to guide interpretation of todays laboratory testing in serous fluids. Crit Rev Clin Lab Sci, 2013;50(4-5):107-124.2. CLSI. Analysis of Body Fluids in Clinical Chemistry; Approved Guideline. CLSI document C49-A. NATASHA Diallo: Clinical Laboratory Standards [place]; 2007.3. Fior VALLADARES, Kaveh RC, Allegra DJ. Use of cyst fluid CEA, CA19-9, and amylase for evaluation of pancreatic lesions. Clinical Biochemistry. 2009;42:5657-1298.This test was developed, and its performance characteristics determined by the [facility] Department of Pathology and Laboratory Medicine. It has not been cleared or approved by the FDA. The [facility] Department of Pathology and Laboratory Medicine is regulated under CLIA as qualified to perform high-complexity testing. This test is used for clinical purposes. It should not be regarded as investigational or for research. Performed By: #### 1 795-4 ####[facility] LABORATORYCLIA [id number] [place] [id number] [place] Basic metabolic 2000 panelon 03-01-2025 Anion gap [Moles/Vol] 6 mmol/L Low 8-15 [facility] Comment on above: Order Comment: Speci men Type: BLOOD SPECIMENOrdering Facility: [facility] Address: [address] [place] [address] Performed By: #### 2 4321-2, , 2776-07 ####[facility] LABORATORYCLIA [id number] [place] [address] [place] Calcium [Mass/Vol] 8.1 mg/dL Low 8.5-10.2 [facility] Comment on above: Order Comment: Speci men Type: BLOOD SPECIMENOrdering Facility: [facility] Address: [address] [place] [address] Performed By: #### 2 4321-2, , 2776-07 ####[facility] LABORATORYCLIA [id number] [place] [address] [place] Chloride [Moles/Vol] 103 mmol/L Normal 98-107 [facility] Comment on above: Order Comment: Speci men Type: BLOOD SPECIMENOrdering Facility: [facility] Address: [address] [place] [address] Performed By: #### 2 4321-2, , 2776-07 ####[facility] LABORATORYCLIA [id number] [place] [address] [place] CO2 [Moles/Vol] 23 mmol/L Normal 22-30 [facility] Comment on above: Order Comment: Speci men Type: BLOOD SPECIMENOrdering Facility: [facility] Address: [address] [place] [address] Performed By: #### 2 4321-2, , 2776-07 ####[facility] LABORATORYCLIA [id number] [place] [address] [place] Creatinine [Mass/Vol] 0.49 mg/dL Low 0.73-1.22 [facility] Comment on above: Order Comment: Speci men Type: BLOOD SPECIMENOrdering Facility: [facility] Address: [address] [place] [address] Performed By: #### 2 4321-2, 47890-8, 2776-07 ####[facility] CENTERIA [id number] [place] [id number] [place] eGFRcr SerPlBld CKD-EPI 2020 115 mL/min/1.73m??? Normal >=60 [facility] Comment on above: Order Comment: Katie holman Type: BLOOD SPECIMENOrdering Facility: [facility] Address: [address] [place] [address] Result Comment: Lisa mated Glomerular Filtration Rate (eGFR) is calculated using the 2020 CKD-EPI creatinine equation. This equation utilizes serum creatinine, sex, and age as parameters. The creatinine assay has traceable calibration to isotope dilution-mass spectrometry. Refer to KDIGO guidelines for clinical interpretation. In patients with unstable renal function, e.g. those with acute kidney injury, the eGFR may not accurately reflect actual GFR. Performed By: #### 2 4321-2, , 2776-07 ####[facility] CENTERIA [id number] [place] [address] [place] Glucose [Mass/Vol] 93 mg/dL Normal 74-99 [facility] Comment on above: Order Comment: Katie holman Type: BLOOD SPECIMENOrdering Facility: [facility] Address: [address] [place] [address] Result Comment: The [place] [employer] (ADA) provides guidance for cutoff values for fasting glucose and random glucose. The ADA defines fasting as no caloric intake for at least 8 hours. Fasting plasma glucose results between 100 to 125 mg/dL indicate increased risk for diabetes (prediabetes).Fasting plasma glucose results greater than or equal to 126 mg/dL meet the criteria for diagnosis of diabetes. In the absence of unequivocal hyperglycemia, results should be confirmed by repeat testing. In a patient with classic symptoms of hyperglycemia or hyperglycemic crisis, random plasma glucose results greater than or equal to 200 mg/dL meet the criteria for diagnosis of diabetes.Reference: Standards of Medical Care in Diabetes 2016, [place] [employer]. Diabetes Care. 2016.39(Suppl 1). Performed By: #### 2 4321-2, , 2776-07 ####[facility] LABORATORYCLIA [id number] [place] [address] [place] Potassium [Moles/Vol] 4.3 mmol/L Normal 3.7-5.1 [facility] Comment on above: Order Comment: Speci men Type: BLOOD SPECIMENOrdering Facility: [facility] Address: [address] [place] [address] Performed By: #### 2 4321-2, , 2776-07 ####[facility] LABORATORYCLIA [id number] [place] [id number] [place] Sodium [Moles/Vol] 132 mmol/L Low 136-144 [facility] Comment on above: Order Comment: Speci men Type: BLOOD SPECIMENOrdering Facility: [facility] Address: [address] [place] [address] Performed By: #### 2 4321-2, , 2776-07 ####[facility] LABORATORYCLIA [id number] [place] [address] [place] Urea nitrogen [Mass/Vol] 7 mg/dL Low 9-24 [facility] Comment on above: Order Comment: Speci men Type: BLOOD SPECIMENOrdering Facility: [facility] Address: [address] [place] [address] Performed By: #### 2 4321-2, , 2776-07 ####[facility] LABORATORYCLIA [id number] [place] [address] [place] CASE MGT INIT ASSESon 2024 CASE MGT INIT ASSES Normal [facility] CBC panel Auto (Bld)on 03-01 Erythrocyte distribution width (RBC) [Ratio] 21.0 % High 11.5-15.0 [facility] Comment on above: Order Comment: Speci men Type: BLOOD SPECIMENOrdering Facility: [facility] Address: [address] [place] [address] Performed By: #### 5 8410-2 ####[facility] LABORATORYCLIA [id number] [address] OF [facility] Hematocrit (Bld) [Volume fraction] 33.3 % Low 39.0-51.0 [facility] Comment on above: Order Comment: Speci men Type: BLOOD SPECIMENOrdering Facility: [facility] Address: [address] [place] [address] Performed By: #### 5 8410-2 ####[facility] LABORATORYCLIA [id number] [address] Hemoglobin (Bld) [Mass/Vol] 10.4 g/dL Low 13.0-17.0 [facility] Comment on above: Order Comment: Speci men Type: BLOOD SPECIMENOrdering Facility: [facility] Address: [address] [place] [address] Performed By: #### 5 8410-2 ####[facility] LABORATORYCLIA [id number] [address] MCH (RBC) [Entitic mass] 28.9 pg Normal 26.0-34.0 [facility] Comment on above: Order Comment: Speci men Type: BLOOD SPECIMENOrdering Facility: [facility] Address: [address] [place] [address] Performed By: #### 5 8410-2 ####[facility] LABORATORYCLIA [id number] [address] [place] MCHC (RBC) [Mass/Vol] 31.2 g/dL Normal 30.5-36.0 [facility] Comment on above: Order Comment: Speci men Type: BLOOD SPECIMENOrdering Facility: [facility] Address: [address] [place] [address] Performed By: #### 5 8410-2 ####[facility]ORATORYCLIA [id number] [address] MCV (RBC) [Entitic vol] 92.5 fL Normal 80.0-100.0 [facility] Comment on above: Order Comment: Speci men Type: BLOOD SPECIMENOrdering Facility: [facility] Address: [address] [place] [address] Performed By: #### 5 8410-2 ####[facility] LABORATORYCLIA [id number] [address] [place] Nucleated RBC (Bld) [#/Vol] 10*3/uL Normal <0.01 [facility] Comment on above: Order Comment: Speci men Type: BLOOD SPECIMENOrdering Facility: [facility] Address: [address] [place] [address] Performed By: #### 5 8410-2 ####[facility] LABORATORYCLIA [id number] [address] [place] Platelet mean volume (Bld) [Entitic vol] 9.1 fL Normal 9.0-12.7 [facility] Comment on above: Order Comment: Speci men Type: BLOOD SPECIMENOrdering Facility: [facility] Address: [address] [place] [address] Performed By: #### 5 8410-2 ####[facility] LABORATORYCLIA [id number] [address] [place] Platelets (Bld) [#/Vol] 246 10*3/uL Normal 150-400 [facility] Comment on above: Order Comment: Speci men Type: BLOOD SPECIMENOrdering Facility: [facility] Address: [address] [place] [address] Performed By: #### 5 8410-2 ####[facility] LABORATORYCLIA [id number] [address] [place] RBC (Bld) [#/Vol] 3.60 10*6/uL Low 4.20-6.00 [facility] Comment on above: Order Comment: Speci men Type: BLOOD SPECIMENOrdering Facility: [facility] Address: [address] [place] [address] Performed By: #### 5 8410-2 ####[facility] LABORATORYCLIA [id number] [place] [address] [place] WBC (Bld) [#/Vol] 12.70 10*3/uL High 3.70-11.00 [facility] Comment on above: Order Comment: Speci men Type: BLOOD SPECIMENOrdering Facility: [facility] Address: [address] [place] [address] Performed By: #### 5 8410-2 ####[facility] LABORATORYCLIA [id number] [place] [address] [place] Calcium.ionized [Moles/Vol]o n 03-01-2025 Calcium.ionized (BldV) [Mass/Vol] 1.11 mmol/L Normal 1.08-1.30 [facility] Comment on above: Order Comment: Speci men Type: BLOOD SPECIMENOrdering Facility: [facility] Address: [address] [place] [address] Performed By: #### 1 995-0 ####[facility] HOSPITALCLIA [id number] [address] Calcium.ionized adjusted to pH 7.4 (Bld) [Moles/Vol] 1.14 mmol/L Normal 1.08-1.30 [facility] Comment on above: Order Comment: Speci men Type: BLOOD SPECIMENOrdering Facility: [facility] Address: [address] [place] [address] Performed By: #### 1 995-0 ####[facility]ORATORYCLIA [id number] [place] [address] [place] Magnesium SerPl-ncon 03-01 Magnesium [Mass/Vol] 2.0 mg/dL Normal 1.7-2.3 [facility] Comment on above: Order Comment: Speci men Type: BLOOD SPECIMENOrdering Facility: [facility] Address: [address] [place] [address] Performed By: #### 2 4321-2, 77644-7, 2777-1 ####[facility]ORATORYCLIA [id number] [place] [address] [place] NUTRITIONon 03-01-2025 NUTRITION Normal [facility] Phosphate SerPl-mCncon 03-01 Phosphate [Mass/Vol] 3.1 mg/dL Normal 2.7-4.8 [facility] Comment on above: Order Comment: Katie holman Type: BLOOD SPECIMENOrdering Facility: [facility] Address: [address] [place], [place] [address] Performed By: #### 2 4321-2, 84140-9, 2777-1 ####[facility] LABORATORYCLIA [id number] [place] [address] [place] THERAPY NTon 03-01-2025 THERAPY NT Normal [facility] XR CHEST 1V FRONTALon 2024 XR CHEST 1V FRONTAL Normal [facility] ANES POSTPROC EVALon 025 ANES POSTPROC EVAL Normal [facility] ANES PRE-OPon 02-28-2025 ANES PRE-OP Normal [facility] BRIEF OP NOTon 02-28-2025 BRIEF OP NOT Normal [facility] CONSULTon 02-28-2025 CONSULT Normal [facility] HISTORY PHYSICALon HISTORY PHYSICAL Normal [facility] OPERATIVE NOon 02-28-2025 OPERATIVE NO Normal [facility] Pathology biopsy report Talha (Tiss)on 02-28-2025 AP DISCLAIMER Normal [facility] Comment on above: Order Comment: Katie holman Type: TISSUE SPECIMENOrdering Facility: [facility] Address: [address] [place] [address] Result Comment: Milind Fair Test (LDT) Disclaimer:Performance characteristics of immunohistochemical, immunofluorescent, and chromogenic in-situ hybridization tests have been determined by the performing laboratory within [facility]'s [facility]ia N[facility] Pathology and Laboratory Medicine Department ([facility], [facility], [facility], [facility], [facility], [facility], or [facility]) in a manner consistent with CLIA requirements. One or more of these tests may not have been cleared or approved by the FDA. [facility] is regulated under CLIA as qualified to perform high-complexity testing. These tests are used for clinical purposes. These should not be regarded as investigational or for research. Positive and negative controls stain appropriately. Performed By: #### 6 6121-5 ####[facility] LABORATORYCLIA [id number] [address] CASE REPORT Normal [facility] Comment on above: Order Comment: Katie holman Type: TISSUE SPECIMENOrdering Facility: [facility] Address: [address] [place] [address] Result Comment: Surg ical Pathology Report Case: [id number] Provider: Renay Cloud MD Collected: 02/28/2025 03:06 PMOrdering Location: [facility] Received: 03/01/2025 08:43 AMPathologist: Shun Manzo MDSpecimen: Esophagus, Resection, esophegectomy Performed By: #### 6 6121-5 ####[facility] LABORATORYCLIA [id number] [address] CLINICAL HISTORY Normal [facility] Comment on above: Order Comment: Katie holman Type: TISSUE SPECIMENOrdering Facility: [facility] Address: [address] [place] [address] Result Comment: Pre- op diagnosis: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]Malnutrition of moderate degree (HCC) [E44.0] Performed By: #### 6 6121-5 ####[facility]ORATORYCLIA [id number] [address] DIAGNOSIS COMMENT Normal [facility] Comment on above: Order Comment: Katie holman Type: TISSUE SPECIMENOrdering Facility: [facility] Address: [address] [place] [address] Performed By: #### 6 6121-5 ####[facility]ORATORYCLIA [id number] [address] FINAL DIAGNOSIS Normal [facility] Comment on above: Order Comment: Katie holman Type: TISSUE SPECIMENOrdering Facility: [facility] Address: [address] [place] [address] Result Comment: Francisca bautista, esophagectomy:- Segment of esophagus and stomach with areas of ulceration and reactive epithelial changes.- Twenty (20) benign lymph nodes (0/20).- There is no evidence of carcinoma. at 1515 EDT Performed By: #### 6 6121-5 ####[facility] LABORATORYCLIA [id number] [address] FINAL PERFORMING LAB Normal [facility] Comment on above: Order Comment: Speci men Type: TISSUE SPECIMENOrdering Facility: [facility] Address: [address] [place] [address] Result Comment: Diag nostic interpretation performed at: [facility], [address] [place] [address] CLIA# [id number] Director: Angel Luciano MD Performed By: #### 6 6121-5 ####[facility] LABORATORYCLIA [id number] [address] GROSS DESCRIPTION Normal [facility] Comment on above: Order Comment: Speci river Type: TISSUE SPECIMENOrdering Facility: [facility] Address: [address] [place] [address] Result Comment: Francisca bautista, ResectionReceived in formalin labeled esophagectomy is an esophagectomy specimen consisting of a segment of esophagus (measuring 6.6 cm in length and 7.0 cm in circumference with a wall thickness of 0.7 cm) and a portion of proximal stomach (measuring 9.5 cm in length and 12.8 cm in circumference with a wall thickness of 0.6 cm). The proximal esophagus margin is inked orange, the adventitial surface is inked black and the distal gastric margin is inked blue. Upon opening the specimen a mass or lesion is not grossly appreciated. A roughened area of esophageal mucosa is present reflecting a stent pattern measuring 7.0 x 1.8 x 0.5 cm and extending within 0.2 cm of the proximal esophageal margin. Other areas of interest are not grossly appreciated. The entire esophagogastric junction is serially sectioned and totally submitted from one side to the opposing side corresponding to the attached photo.Tissue is submitted as follows:A1-A2 shave of proximal esophageal margin totally submittedA3-A9 shave of distal gastric margin totally pnbpiddhxB78-K76 field service representative sections of roughened esophageal mucosa reflecting stent ehluxfzU57-B93 esophagogastric junction totally submitted corresponding tissue attached pvxqzR27-D71 field service representative sections of qeqosccM98 4 possible lymph mluoqQ22 4 possible lymph kyaojY32 3 possible lymph tjyunE97 2 possible lymph jisbaC12-U17 1 possible lymph node sectioned and totally submitted in each cmrixkqsR32-Q60 1 possible lymph node sectioned and totally submitted Gross examination performed at [facility], [address], [place], [place] [id number] March 02, 2025 9:17 AMThe remainder of the esophagus is totally submitted from proximal to distal aspect in cassettes A37-A54. Gross examination performed at [facility], [address], [place], [place] [address]AQR March 06, 2025 3:43 PM Performed By: #### 6 6121-5 ####[facility] LABORATORYCLIA [id number] [place] [address] [place] STAPHYLOCOCCUS AUREUS AND MR SA SCREEN, PCR, NASALon 02-28-2025 S. aureus and MRSA panel JOHNNY+probe (Nose) Not detected Normal Not Detected [facility] Comment on above: Order Comment: Speci men Type: SWABOrdering Facility: [facility] Address: [address] [place] [address] Performed By: #### S APCR ####[facility] LABORATORYCLIA [id number] [place] [address] [place] TYPE + SCREENon 02-28-2025 ABO O Normal [facility] Comment on above: Order Comment: Speci men Type: BLOOD SPECIMENOrdering Facility: [facility] Address: [address] [place] [address] Performed By: #### T SCR ####[facility] BLOOD BANKCLIA [id number] [place] [address] [place] Rh Nom (Bld) Positive Normal [facility] Comment on above: Order Comment: Speci men Type: BLOOD SPECIMENOrdering Facility: [facility] Address: [address] [place] [address] Performed By: #### T SCR ####[facility] BLOOD BANKCLIA [id number] [place] [address] [place] TYPE AND SCREEN EXPIRATION 03/03/2025 23:59 Normal [facility] Comment on above: Order Comment: Speci men Type: BLOOD SPECIMENOrdering Facility: [facility] Address: [address] [place] [address] [place] [address] Performed By: #### T SCR ####[facility] BLOOD BANKCLIA [id number] [place] [address] [facility] XR CHEST 1V FRONTALon 2024 XR CHEST 1V FRONTAL Normal [facility] NURSING PROGon 02-24-2025 NURSING PROG Normal [facility] CNOVon 02-22-2025 CNOV Normal [facility] CNCNPATEDon 02-21-2025 CNCNPATED Normal [facility] CNPNon 02-17-2025 CNPN Normal [facility] Comprehensive metabolic 2000 panelon 02-17-2025 Albumin [Mass/Vol] 2.9 g/dL Low 3.9 - 4.9 g/dL [facility] ALP [Catalytic activity/Vol] 156 U/L High 38 - 113 U/L [facility] ALT [Catalytic activity/Vol] 18 U/L 10 - 54 U/L [facility] Anion gap [Moles/Vol] 11 mmol/L 8 - 15 mmol/L [facility] AST [Catalytic activity/Vol] 26 U/L 14 - 40 U/L [facility] Bilirubin [Mass/Vol] 0.4 mg/dL 0.2 - 1 .3 mg/dL [facility] Calcium [Mass/Vol] 8.8 mg/dL 8.5 - 10. 2 mg/dL [facility] Chloride [Moles/Vol] 99 mmol/L 98 - 10 7 mmol/L [facility] CO2 [Moles/Vol] 23 mmol/L 22 - 30 mmol/L [facility] Creatinine [Mass/Vol] 0.52 mg/dL Low 0.73 - 1.22 mg/dL [facility] GFR/1.73 sq M.predicted among non-blacks MDRD (S/P/Bld) [Vol rate/Area] 113 mL/min/{1.73_m2} - PINF [facility] Comment on above: Estimated Glomerular Filtration Rate (eGFR) is calculated using the 2020 CKD-EPI creatinine equation. This equation utilizes serum creatinine, sex, and age as parameters. The creatinine assay has traceable calibration to isotope dilution-mass spectrometry. Refer to KDIGO guidelines for clinical interpretation. In patients with unstable renal function, e.g. those with acute kidney injury, the eGFR may not accurately reflect actual GFR. Glucose [Mass/Vol] 89 mg/dL 74 - 99 mg/dL [facility] Comment on above: The [place] Di[employer] [place] Association (ADA) provides guidance for cutoff values for fasting glucose and random glucose. The ADA defines fasting as no caloric intake for at least 8 hours. Fasting plasma glucose results between 100 to 125 mg/dL indicate increased risk for diabetes (prediabetes). Fasting plasma glucose results greater than or equal to 126 mg/dL meet the criteria for diagnosis of diabetes. In the absence of unequivocal hyperglycemia, results should be confirmed by repeat testing. In a patient with classic symptoms of hyperglycemia or hyperglycemic crisis, random plasma glucose results greater than or equal to 200 mg/dL meet the criteria for diagnosis of diabetes. Reference: Standards of Medical Care in Diabetes 2016, [place] [employer]. Diabetes Care. 2016.39(Suppl 1). Interpretation and review of laboratory results Abnormal [facility] Potassium [Moles/Vol] 3.9 mmol/L 3.7 - 5.1 mmol/L [facility] Protein [Mass/Vol] 6.7 g/dL 6.3 - 8.0 g/dL [facility] Sodium [Moles/Vol] 133 mmol/L Low 136 - 144 mmol/L [facility] Urea nitrogen [Mass/Vol] 6 mg/dL Low 9 - 24 mg/dL [facility] Albumin [Mass/Vol] 2.9 g/dL Low 3.9-4.9 [facility] Comment on above: Order Comment: Speci men Type: BLOOD SPECIMENOrdering Facility: [facility] Address: [facility] [place] [address] Performed By: #### 2 777-1, 59416-8, 76466-6 ####[facility] [id number] [place] [address] [place] ALP [Catalytic activity/Vol] 156 U/L High 38-113 [facility] Comment on above: Order Comment: Speci men Type: BLOOD SPECIMENOrdering Facility: [facility] Address: [address] [place] [address] Performed By: #### 2 777-1, 08184-8, ####[facility] MILLTOWNCLIA [id number] [place] [address] [place] ALT [Catalytic activity/Vol] 18 U/L Normal 10-54 [facility] Comment on above: Order Comment: Speci men Type: BLOOD SPECIMENOrdering Facility: [facility] Address: [address] [place] [address] Performed By: #### 2 777-1, 37145-9, ####[facility] CLAY COUNTYNCLIA [id number] [place] [address] [place] Anion gap [Moles/Vol] 11 mmol/L Normal 8-15 [facility] Comment on above: Order Comment: Speci men Type: BLOOD SPECIMENOrdering Facility: [facility] Address: [address] [place] [address] Performed By: #### 2 777-1, , ####[facility] CLAY COUNTYNCLIA [id number] [place] [address] [place] AST [Catalytic activity/Vol] 26 U/L Normal 14-40 [facility] Comment on above: Order Comment: Speci men Type: BLOOD SPECIMENOrdering Facility: [facility] Address: [address] [place] [address] Performed By: #### 2 777-1, , ####[facility] GORDAWNCLIA [id number] [place] [address] [place] Bilirubin [Mass/Vol] 0.4 mg/dL Normal 0.2-1.3 [facility] Comment on above: Order Comment: Speci men Type: BLOOD SPECIMENOrdering Facility: [facility] Address: [address] [place] [address] Performed By: #### 2 777-1, , ####[facility] CLAY COUNTYNCLIA [id number] [place] [address] [place] Calcium [Mass/Vol] 8.8 mg/dL Normal 8.5-10.2 [facility] Comment on above: Order Comment: Speci men Type: BLOOD SPECIMENOrdering Facility: [facility] Address: [address] [place] [address] Performed By: #### 2 777-1, , ####[facility] [id number] [place] [address] [place] Chloride [Moles/Vol] 99 mmol/L Normal 98-107 [facility] Comment on above: Order Comment: Speci men Type: BLOOD SPECIMENOrdering Facility: [facility] Address: [address] [place] [address] Performed By: #### 2 777-1, , ####[facility] [id number] [place] [address] [place] CO2 [Moles/Vol] 23 mmol/L Normal 22-30 [facility] Comment on above: Order Comment: Speci men Type: BLOOD SPECIMENOrdering Facility: [facility] Address: [address] [place] [address] Performed By: #### 2 777-1, , ####[facility] CLAY COUNTYNCLIA [id number] [place] [address] [place] Creatinine [Mass/Vol] 0.52 mg/dL Low 0.73-1.22 [facility] Comment on above: Order Comment: Katie holman Type: BLOOD SPECIMENOrdering Facility: [facility] Address: [address] [place] [address] Performed By: #### 2 777-1, 77292-2, ####[facility] CLAY COUNTYNCLIA [id number] [place] [address] [place] eGFRcr SerPlBld CKD-EPI 2020 113 mL/min/1.73m??? Normal >=60 [facility] Comment on above: Order Comment: Katie holman Type: BLOOD SPECIMENOrdering Facility: [facility] Address: [address] [place] [address] Result Comment: Lisa mated Glomerular Filtration Rate (eGFR) is calculated using the 2020 CKD-EPI creatinine equation. This equation utilizes serum creatinine, sex, and age as parameters. The creatinine assay has traceable calibration to isotope dilution-mass spectrometry. Refer to KDIGO guidelines for clinical interpretation. In patients with unstable renal function, e.g. those with acute kidney injury, the eGFR may not accurately reflect actual GFR. Performed By: #### 2 777-1, 31045-8, 21626-7 ####[facility] CLAY COUNTYNCLIA [id number] [place] [address] [place] Glucose [Mass/Vol] 89 mg/dL Normal 74-99 [facility] Comment on above: Order Comment: Katie holman Type: BLOOD SPECIMENOrdering Facility: [facility] Address: [address] [place] [address] Result Comment: The [place] Diabetes [employer] (ADA) provides guidance for cutoff values for fasting glucose and random glucose. The ADA defines fasting as no caloric intake for at least 8 hours. Fasting plasma glucose results between 100 to 125 mg/dL indicate increased risk for diabetes (prediabetes).Fasting plasma glucose results greater than or equal to 126 mg/dL meet the criteria for diagnosis of diabetes. In the absence of unequivocal hyperglycemia, results should be confirmed by repeat testing. In a patient with classic symptoms of hyperglycemia or hyperglycemic crisis, random plasma glucose results greater than or equal to 200 mg/dL meet the criteria for diagnosis of diabetes.Reference: Standards of Medical Care in Diabetes 2016, [place] [employer]. Diabetes Care. 2016.39(Suppl 1). Performed By: #### 2 777-1, 31562-7, 74010-4 ####[facility] DENNISNCLIA [id number] [place] [address] [place] Potassium [Moles/Vol] 3.9 mmol/L Normal 3.7-5.1 [facility] Comment on above: Order Comment: Speci men Type: BLOOD SPECIMENOrdering Facility: [facility] Address: [address] [place] [address] Performed By: #### 2 777-1, 01052-0, ####[facility] CLAY COUNTYNCA [id number] [place] [address] [place] Protein [Mass/Vol] 6.7 g/dL Normal 6.3-8.0 [facility] Comment on above: Order Comment: Speci men Type: BLOOD SPECIMENOrdering Facility: [facility] Address: [address] [place] [address] Performed By: #### 2 777-1, , ####[facility] [id number] [place] [address] [place] Sodium [Moles/Vol] 133 mmol/L Low 136-144 [facility] Comment on above: Order Comment: Speci men Type: BLOOD SPECIMENOrdering Facility: [facility] Address: [address] [place], [place] [address] Performed By: #### 2 777-1, 79383-0, ####[facility] CLAY COUNTYNCLIA [id number] [place] [address] [place] Urea nitrogen [Mass/Vol] 6 mg/dL Low 9-24 [facility] Comment on above: Order Comment: Speci men Type: BLOOD SPECIMENOrdering Facility: [facility] Address: [address] [place] [address] Performed By: #### 2 777-1, , ####[facility] MILLTOWNCLIA [id number] [place] [address] [place] MAGNESIUMOrdered By: Stephanie hester on 02-17-2025 Magnesium [Mass/Vol] 1.6 mg/dL Low 1.7 - 2 .3 mg/dL [facility] Magnesium SerPl-mCncon 02-17 Magnesium [Mass/Vol] 1.6 mg/dL Low 1.7-2.3 [facility] Comment on above: Order Comment: Speci men Type: BLOOD SPECIMENOrdering Facility: [facility] Address: [address] [place] [address] Performed By: #### 2 777-1, , ####[facility] MILLTOWNCLIA [id number] [place] [address] [place] Magnesium [Mass/Vol]Ordered By: Stephanie Smith on 02-17-2025 Interpretation and review of laboratory results Abnormal [facility] PHOSPHORUS INORGANICon 02-17 Phosphate [Mass/Vol] 3.8 mg/dL 2.7 - 4 .8 mg/dL [facility] Phosphate SerPl-mCncon 02-17 Phosphate [Mass/Vol] 3.8 mg/dL Normal 2.7-4.8 [facility] Comment on above: Order Comment: Speci men Type: BLOOD SPECIMENOrdering Facility: [facility] Address: [address] [place] [address] Performed By: #### 2 777-1, , ####[facility] MILLTOWNCLIA [id number] [place] [address] [place] Phosphate [Mass/Vol]on 02-17 Interpretation and review of laboratory results Normal [facility] CNCNPATEDon 02-16-2025 CNCNPATED Normal [facility] CNCNPATEDon 02-14-2025 CNCNPATED Normal [facility] Comprehensive metabolic 2000 panelOrdered By: Stephanie Smith on 02-14-2025 Albumin [Mass/Vol] 2.6 g/dL Low 3.9 - 4.9 g/dL [facility] ALP [Catalytic activity/Vol] 136 U/L High 38 - 113 U/L [facility] ALT [Catalytic activity/Vol] 19 U/L 10 - 54 U/L [facility] Anion gap [Moles/Vol] 11 mmol/L 8 - 15 mmol/L [facility] AST [Catalytic activity/Vol] 20 U/L 14 - 40 U/L [facility] Bilirubin [Mass/Vol] 0.4 mg/dL 0.2 - 1 .3 mg/dL [facility] Calcium [Mass/Vol] 8.2 mg/dL Low 8.5 - 10. 2 mg/dL [facility] Chloride [Moles/Vol] 101 mmol/L 98 - 10 7 mmol/L [facility] CO2 [Moles/Vol] 21 mmol/L Low 22 - 30 mmol/L [facility] Creatinine [Mass/Vol] 0.51 mg/dL Low 0.73 - 1.22 mg/dL [facility] GFR/1.73 sq M.predicted among non-blacks MDRD (S/P/Bld) [Vol rate/Area] 113 mL/min/{1.73_m2} - PINF [facility] Comment on above: Estimated Glomerular Filtration Rate (eGFR) is calculated using the 2020 CKD-EPI creatinine equation. This equation utilizes serum creatinine, sex, and age as parameters. The creatinine assay has traceable calibration to isotope dilution-mass spectrometry. Refer to KDIGO guidelines for clinical interpretation. In patients with unstable renal function, e.g. those with acute kidney injury, the eGFR may not accurately reflect actual GFR. Glucose [Mass/Vol] 91 mg/dL 74 - 99 mg/dL [facility] Comment on above: The [place] Diab[employer] s Association (ADA) provides guidance for cutoff values for fasting glucose and random glucose. The ADA defines fasting as no caloric intake for at least 8 hours. Fasting plasma glucose results between 100 to 125 mg/dL indicate increased risk for diabetes (prediabetes). Fasting plasma glucose results greater than or equal to 126 mg/dL meet the criteria for diagnosis of diabetes. In the absence of unequivocal hyperglycemia, results should be confirmed by repeat testing. In a patient with classic symptoms of hyperglycemia or hyperglycemic crisis, random plasma glucose results greater than or equal to 200 mg/dL meet the criteria for diagnosis of diabetes. Reference: Standards of Medical Care in Diabetes 2016, [place] [employer]. Diabetes Care. 2016.39(Suppl 1). Interpretation and review of laboratory results Abnormal [facility] Potassium [Moles/Vol] 3.7 mmol/L 3.7 - 5.1 mmol/L [facility] Protein [Mass/Vol] 5.9 g/dL Low 6.3 - 8.0 g/dL [facility] Sodium [Moles/Vol] 133 mmol/L Low 136 - 144 mmol/L [facility] Urea nitrogen [Mass/Vol] 9 mg/dL 9 - 24 mg/dL [facility] Comprehensive metabolic 2000 panelon 02-14-2025 Albumin [Mass/Vol] 2.6 g/dL Low 3.9-4.9 [facility] Comment on above: Order Comment: Katie holman Type: BLOOD SPECIMENOrdering Facility: [facility] Address: [address] [place] [address] Performed By: #### 2 4323-8, 2776-07, ####[facility] [id number] [place] [address] [place] ALP [Catalytic activity/Vol] 136 U/L High 38-113 [facility] Comment on above: Order Comment: Katie holman Type: BLOOD SPECIMENOrdering Facility: [facility] Address: [address] [place] [address] Performed By: #### 2 4323-8, 2777-, ####[facility] [id number] [place] [address] [place] ALT [Catalytic activity/Vol] 19 U/L Normal 10-54 [facility] Comment on above: Order Comment: Katie holman Type: BLOOD SPECIMENOrdering Facility: [facility] Address: [address] [place], [place] [address] Performed By: #### 2 4323-8, 2777-1, 69017-2 ####[facility] DENNISNCMICAA [id number] [place] [address] [place] Anion gap [Moles/Vol] 11 mmol/L Normal 8-15 [facility] Comment on above: Order Comment: Speci men Type: BLOOD SPECIMENOrdering Facility: [facility] Address: [address] [place] [address] Performed By: #### 2 4323-8, 2777-1, 96562-1 ####[facility] NORRISBALATONNCLIA [id number] [place] [address] [place] AST [Catalytic activity/Vol] 20 U/L Normal 14-40 [facility] Comment on above: Order Comment: Speci men Type: BLOOD SPECIMENOrdering Facility: [facility] Address: [address] [place] [address] Performed By: #### 2 4323-8, 2777-1, 36215-5 ####[facility] NORRISBALATONNCLIA [id number] [place] [address] [place] Bilirubin [Mass/Vol] 0.4 mg/dL Normal 0.2-1.3 [facility] Comment on above: Order Comment: Speci men Type: BLOOD SPECIMENOrdering Facility: [facility] Address: [address] [place], [place] [address] Performed By: #### 2 4323-8, 2777-1, 53050-6 ####[facility] CLAY COUNTYNCLIA [id number] [place] [address] [place] Calcium [Mass/Vol] 8.2 mg/dL Low 8.5-10.2 [facility] Comment on above: Order Comment: Speci men Type: BLOOD SPECIMENOrdering Facility: [facility] Address: [address] [place] [address] Performed By: #### 2 4323-8, 2777-1, 03199-2 ####[facility] NORRISBALATONNCLIA [id number] [place] [address] [place] Chloride [Moles/Vol] 101 mmol/L Normal 98-107 [facility] Comment on above: Order Comment: Speci men Type: BLOOD SPECIMENOrdering Facility: [facility] Address: [address] [place] [address] Performed By: #### 2 4323-8, 2777-1, 74382-9 ####[facility] [id number] [place] [address] [place] CO2 [Moles/Vol] 21 mmol/L Low 22-30 [facility] Comment on above: Order Comment: Speci men Type: BLOOD SPECIMENOrdering Facility: [facility] Address: [address] [place] [address] Performed By: #### 2 4323-8, 2777-1, 85362-3 ####[facility] [id number] [place] [address] [place] Creatinine [Mass/Vol] 0.51 mg/dL Low 0.73-1.22 [facility] Comment on above: Order Comment: Speci men Type: BLOOD SPECIMENOrdering Facility: [facility] Address: [address] [place] [address] Performed By: #### 2 4323-8, 2777-1, 29969-0 ####[facility] CLAY COUNTYNCLIA [id number] [place] [address] [place] eGFRcr SerPlBld CKD-EPI 2020 113 mL/min/1.73m??? Normal >=60 [facility] Comment on above: Order Comment: Speci men Type: BLOOD SPECIMENOrdering Facility: [facility] Address: [address] [place] [address], [place] [address] Result Comment: Lisa mated Glomerular Filtration Rate (eGFR) is calculated using the 2020 CKD-EPI creatinine equation. This equation utilizes serum creatinine, sex, and age as parameters. The creatinine assay has traceable calibration to isotope dilution-mass spectrometry. Refer to KDIGO guidelines for clinical interpretation. In patients with unstable renal function, e.g. those with acute kidney injury, the eGFR may not accurately reflect actual GFR. Performed By: #### 2 4323-8, 27701-17, ####[facility] [id number] [place] [address] [place] Glucose [Mass/Vol] 91 mg/dL Normal 74-99 [facility] Comment on above: Order Comment: Spectania holman Type: BLOOD SPECIMENOrdering Facility: [facility] Address: [address] [place] [address] Result Comment: The [place] [employer] (ADA) provides guidance for cutoff values for fasting glucose and random glucose. The ADA defines fasting as no caloric intake for at least 8 hours. Fasting plasma glucose results between 100 to 125 mg/dL indicate increased risk for diabetes (prediabetes).Fasting plasma glucose results greater than or equal to 126 mg/dL meet the criteria for diagnosis of diabetes. In the absence of unequivocal hyperglycemia, results should be confirmed by repeat testing. In a patient with classic symptoms of hyperglycemia or hyperglycemic crisis, random plasma glucose results greater than or equal to 200 mg/dL meet the criteria for diagnosis of diabetes.Reference: Standards of Medical Care in Diabetes 2016, [place] [employer]. Diabetes Care. 2016.39(Suppl 1). Performed By: #### 2 4323-8, 2777, ####[facility] [id number] [place] [address] [place] Potassium [Moles/Vol] 3.7 mmol/L Normal 3.7-5.1 [facility] Comment on above: Order Comment: Speci men Type: BLOOD SPECIMENOrdering Facility: [facility] Address: [address] [place] [id number] Performed By: #### 2 4323-8, 2777-1, 73255-5 ####[facility] MILLTOWNCLIA [id number] [place] [address] [place] Protein [Mass/Vol] 5.9 g/dL Low 6.3-8.0 [facility] Comment on above: Order Comment: Speci men Type: BLOOD SPECIMENOrdering Facility: [facility] Address: [address] [place] [address] Performed By: #### 2 4323-8, 2777, ####[facility] CLAY COUNTYNCLIA [id number] [place] [address] [place] Sodium [Moles/Vol] 133 mmol/L Low 136-144 [facility] Comment on above: Order Comment: Speci men Type: BLOOD SPECIMENOrdering Facility: [facility] Address: [address] [place] [address] Performed By: #### 2 4323-8, 27701-17, ####[facility] [id number] [place] [address] [place] Urea nitrogen [Mass/Vol] 9 mg/dL Normal 9-24 [facility] Comment on above: Order Comment: Speci men Type: BLOOD SPECIMENOrdering Facility: [facility] Address: [address] [place], [place] [address] Performed By: #### 2 4323-8, 27701-17, ####[facility] CLAY COUNTYNCLIA [id number] [place] [address] [place] MAGNESIUMon 02-14-2025 Magnesium [Mass/Vol] 1.5 mg/dL Low 1.7 - 2 .3 mg/dL [facility] Magnesium SerPl-mCncon 02-14 Magnesium [Mass/Vol] 1.5 mg/dL Low 1.7-2.3 [facility] Comment on above: Order Comment: Speci men Type: BLOOD SPECIMENOrdering Facility: [facility] Address: [address] [place] [address] Performed By: #### 2 4323-8, 2777-1, ####[facility] MILLTOWNCLIA [id number] [place] [address] [place] Magnesium [Mass/Vol]on 02-14 Interpretation and review of laboratory results Abnormal [facility] PHOSPHORUS INORGANICon 02-14 Phosphate [Mass/Vol] 2.9 mg/dL 2.7 - 4 .8 mg/dL [facility] Phosphate SerPl-mCncon 02-14 Phosphate [Mass/Vol] 2.9 mg/dL Normal 2.7-4.8 [facility] Comment on above: Order Comment: Speci men Type: BLOOD SPECIMENOrdering Facility: [facility] Address: [address] [place] [address] Performed By: #### 2 4323-8, 2776-07, ####[facility] MILLTOWNCLIA [id number] [place] [address] [place] Phosphate [Mass/Vol]on 02-14 Interpretation and review of laboratory results Normal [facility] Comprehensive metabolic 2000 panelon 02-10-2025 Albumin [Mass/Vol] 2.9 g/dL Low 3.9-4.9 [facility] Comment on above: Order Comment: Speci men Type: BLOOD SPECIMENOrdering Facility: [facility] Address: [address] [place] [address] Performed By: #### 2 777-1, , 17463-8 ####[facility] MILLTOWNCLIA [id number] [place] [address] [place] ALP [Catalytic activity/Vol] 110 U/L Normal 38-113 [facility] Comment on above: Order Comment: Speci men Type: BLOOD SPECIMENOrdering Facility: [facility] Address: [address] [place], [place] [address] Performed By: #### 2 777-1, , 43192-9 ####[facility] CHEMAWNCLIA [id number] [place] [address] [place] ALT [Catalytic activity/Vol] 36 U/L Normal 10-54 [facility] Comment on above: Order Comment: Speci men Type: BLOOD SPECIMENOrdering Facility: [facility] Address: [address] [place], [place] [address] Performed By: #### 2 777-1, , 81268-3 ####[facility] NORRISWNCLIA [id number] [place] [address] [place] Anion gap [Moles/Vol] 10 mmol/L Normal 8-15 [facility] Comment on above: Order Comment: Speci men Type: BLOOD SPECIMENOrdering Facility: [facility] Address: [address] [place] [address] Performed By: #### 2 777-1, , ####[facility] COUNTYNCLIA [id number] [place] [address] [place] AST [Catalytic activity/Vol] 28 U/L Normal 14-40 [facility] Comment on above: Order Comment: Speci men Type: BLOOD SPECIMENOrdering Facility: [facility] Address: [address] [place], [place] [address] Performed By: #### 2 777-1, 33194-9, 35879-6 ####[facility] PUNTA GORDAWNCLIA [id number] [place] [address] [place] Bilirubin [Mass/Vol] 0.5 mg/dL Normal 0.2-1.3 [facility] Comment on above: Order Comment: Speci men Type: BLOOD SPECIMENOrdering Facility: [facility] Address: [address] [place] [address] [place] [address] Performed By: #### 2 777-1, 74143-9, 78322-4 ####[facility] NORRISSHIRA [id number] [place] [address] [place] Calcium [Mass/Vol] 8.5 mg/dL Normal 8.5-10.2 [facility] Comment on above: Order Comment: Speci men Type: BLOOD SPECIMENOrdering Facility: [facility] Address: [address] [place], [place] [address] Performed By: #### 2 777-1, 01616-6, 12211-0 ####[facility] NORRISSHIRA [id number] [place] [address] [place] Chloride [Moles/Vol] 98 mmol/L Normal 98-107 [facility] Comment on above: Order Comment: Speci men Type: BLOOD SPECIMENOrdering Facility: [facility] Address: [address] [place], [place] [address] Performed By: #### 2 777-1, 03427-7, 15633-3 ####[facility] NORRISSHIRA [id number] [place] [address] [place] CO2 [Moles/Vol] 21 mmol/L Low 22-30 [facility] Comment on above: Order Comment: Speci men Type: BLOOD SPECIMENOrdering Facility: [facility] Address: [address] [place], [place] [address] Performed By: #### 2 777-1, 46122-2, 68704-9 ####[facility] DENNISNCLIA [id number] [place] [address] [place] Creatinine [Mass/Vol] 0.60 mg/dL Low 0.73-1.22 [facility] Comment on above: Order Comment: Speci men Type: BLOOD SPECIMENOrdering Facility: [facility] Address: [address] [place] [address] Performed By: #### 2 777-1, 99919-4, 37588-7 ####[facility] C[facility] COUNTYNCLI [id number] [place] [address] [place] eGFRcr SerPlBld CKD-EPI 2020 108 mL/min/1.73m??? Normal >=60 [facility] Comment on above: Order Comment: Katie holman Type: BLOOD SPECIMENOrdering Facility: [facility] Address: [address] [place] [address] Result Comment: Lisa mated Glomerular Filtration Rate (eGFR) is calculated using the 2020 CKD-EPI creatinine equation. This equation utilizes serum creatinine, sex, and age as parameters. The creatinine assay has traceable calibration to isotope dilution-mass spectrometry. Refer to KDIGO guidelines for clinical interpretation. In patients with unstable renal function, e.g. those with acute kidney injury, the eGFR may not accurately reflect actual GFR. Performed By: #### 2 777-1, , ####[facility] CLAY COUNTYNCLIA [id number] [place] [address] [place] Glucose [Mass/Vol] 104 mg/dL High 74-99 [facility] Comment on above: Order Comment: Katie holman Type: BLOOD SPECIMENOrdering Facility: [facility] Address: [address] [place] [address] Result Comment: The [place] [employer] (ADA) provides guidance for cutoff values for fasting glucose and random glucose. The ADA defines fasting as no caloric intake for at least 8 hours. Fasting plasma glucose results between 100 to 125 mg/dL indicate increased risk for diabetes (prediabetes).Fasting plasma glucose results greater than or equal to 126 mg/dL meet the criteria for diagnosis of diabetes. In the absence of unequivocal hyperglycemia, results should be confirmed by repeat testing. In a patient with classic symptoms of hyperglycemia or hyperglycemic crisis, random plasma glucose results greater than or equal to 200 mg/dL meet the criteria for diagnosis of diabetes.Reference: Standards of Medical Care in Diabetes 2016, [place] [employer]. Diabetes Care. 2016.39(Suppl 1). Performed By: #### 2 777-1, , ####[facility] MILLTOWNCLIA [id number] [place] [address] [place] Potassium [Moles/Vol] 4.4 mmol/L Normal 3.7-5.1 [facility] Comment on above: Order Comment: Speci men Type: BLOOD SPECIMENOrdering Facility: [facility] Address: [address] [place], [place] [address] Performed By: #### 2 777-1, , ####[facility] MILLTOWNCLIA [id number] [place] [address] [place] Protein [Mass/Vol] 6.0 g/dL Low 6.3-8.0 [facility] Comment on above: Order Comment: Speci men Type: BLOOD SPECIMENOrdering Facility: [facility] Address: [address] [place] [address] Performed By: #### 2 777-1, , ####[facility] PUN[facility] GORDAWNCLIA [id number] [place] [address] [place] Sodium [Moles/Vol] 129 mmol/L Low 136-144 [facility] Comment on above: Order Comment: Speci men Type: BLOOD SPECIMENOrdering Facility: [facility] Address: [address] [place] [address] Performed By: #### 2 777-1, , ####[facility] MILLTOWNCLIA [id number] [place] [address] [place] Urea nitrogen [Mass/Vol] 8 mg/dL Low 9-24 [facility] Comment on above: Order Comment: Speci men Type: BLOOD SPECIMENOrdering Facility: [facility] Address: [address] [place], [place] [address] Performed By: #### 2 777-1, , ####[facility] MILLWNCLIA [id number] [place] [address] [place] Magnesium SerPl-mCncon 02-10 Magnesium [Mass/Vol] 2.0 mg/dL Normal 1.7-2.3 [facility] Comment on above: Order Comment: Speci men Type: BLOOD SPECIMENOrdering Facility: [facility] Address: [address] [place] [address] Performed By: #### 2 777-1, , ####[facility] NORRISAMANDAA [id number] [place] [address] [place] Phosphate SerPl-mCncon 02-10 Phosphate [Mass/Vol] 2.8 mg/dL Normal 2.7-4.8 [facility] Comment on above: Order Comment: Speci men Type: BLOOD SPECIMENOrdering Facility: [facility] Address: [address] [place] [address] Performed By: #### 2 777-1, , ####[facility] ANGUIANOA [id number] [place] [address] [place] CNCNPATEDon 02-09-2025 CNCNPATED Normal [facility] CNPNon 02-09-2025 CNPN Normal [facility] CNCNPATEDon 02-07-2025 CNCNPATED Normal [facility] CNPNon 02-07-2025 CNPN Normal [facility] Comprehensive metabolic 2000 panelon 02-07-2025 Albumin [Mass/Vol] 3.2 g/dL Low 3.9-4.9 [facility] Comment on above: Order Comment: Speci men Type: BLOOD SPECIMENOrdering Facility: [facility] Address: [address] [place] [address] Performed By: #### 2 777-1, , ####[facility] MILLTOWNCLIA [id number] [place] [address] [place] ALP [Catalytic activity/Vol] 99 U/L Normal 38-113 [facility] Comment on above: Order Comment: Speci men Type: BLOOD SPECIMENOrdering Facility: [facility] Address: [address] [place] [address] Performed By: #### 2 777-1, 39169-3, 61426-2 ####[facility] MILLTOWNCLIA [id number] [place] [address] [place] ALT [Catalytic activity/Vol] 56 U/L High 10-54 [facility] Comment on above: Order Comment: Speci men Type: BLOOD SPECIMENOrdering Facility: [facility] Address: [address] [place] [address] Performed By: #### 2 777-1, 48266-6, ####[facility] MILLTOWNCLIA [id number] [place] [address] [place] Anion gap [Moles/Vol] 12 mmol/L Normal 8-15 [facility] Comment on above: Order Comment: Speci men Type: BLOOD SPECIMENOrdering Facility: [facility] Address: [address] [place] [address] Performed By: #### 2 777-1, 50854-3, ####[facility] PUN[facility] GORDAWNCLIA [id number] [place] [address] [place] AST [Catalytic activity/Vol] 46 U/L High 14-40 [facility] Comment on above: Order Comment: Speci men Type: BLOOD SPECIMENOrdering Facility: [facility] Address: [address] [place] [address] Performed By: #### 2 777-1, 33166-7, ####[facility] MILLTOWNCLIA [id number] [place] [address] [place] Bilirubin [Mass/Vol] 0.6 mg/dL Normal 0.2-1.3 [facility] Comment on above: Order Comment: Speci men Type: BLOOD SPECIMENOrdering Facility: [facility] Address: [address] [place] [address] Performed By: #### 2 777-1, 23206-3, 83875-4 ####[facility] NORRISAMANDAA [id number] [place] [address] [place] Calcium [Mass/Vol] 9.2 mg/dL Normal 8.5-10.2 [facility] Comment on above: Order Comment: Speci men Type: BLOOD SPECIMENOrdering Facility: [facility] Address: [address] [place] [address] Performed By: #### 2 777-1, 41415-7, ####[facility] C[facility] COUNTYLMA [id number] [place] [address] [place] Chloride [Moles/Vol] 97 mmol/L Low 98-107 [facility] Comment on above: Order Comment: Speci men Type: BLOOD SPECIMENOrdering Facility: [facility] Address: [address] [place] [address] Performed By: #### 2 777-1, 68898-5, ####[facility] CHEMAWCARLOSLIA [id number] [place] [address] [place] CO2 [Moles/Vol] 22 mmol/L Normal 22-30 [facility] Comment on above: Order Comment: Speci men Type: BLOOD SPECIMENOrdering Facility: [facility] Address: [address] [place] [address] Performed By: #### 2 777-1, 44502-4, 33161-9 ####[facility] MARIUSZLIA [id number] [place] [address] [place] Creatinine [Mass/Vol] 0.52 mg/dL Low 0.73-1.22 [facility] Comment on above: Order Comment: Katie holman Type: BLOOD SPECIMENOrdering Facility: [facility] Address: [address] [place] [address] Performed By: #### 2 777-1, 67008-6, ####[facility] [id number] [place] [address] [place] eGFRcr SerPlBld CKD-EPI 2020 113 mL/min/1.73m??? Normal >=60 [facility] Comment on above: Order Comment: Katie holman Type: BLOOD SPECIMENOrdering Facility: [facility] Address: [address] [place] [address] Result Comment: Lisa mated Glomerular Filtration Rate (eGFR) is calculated using the 2020 CKD-EPI creatinine equation. This equation utilizes serum creatinine, sex, and age as parameters. The creatinine assay has traceable calibration to isotope dilution-mass spectrometry. Refer to KDIGO guidelines for clinical interpretation. In patients with unstable renal function, e.g. those with acute kidney injury, the eGFR may not accurately reflect actual GFR. Performed By: #### 2 777-1, 85161-6, ####[facility] C[facility] COUNTYNCLIA [id number] [place] [address] [place] Glucose [Mass/Vol] 116 mg/dL High 74-99 [facility] Comment on above: Order Comment: Katie holman Type: BLOOD SPECIMENOrdering Facility: [facility] Address: [address] [place] [address] Result Comment: The [place] [employer] (ADA) provides guidance for cutoff values for fasting glucose and random glucose. The ADA defines fasting as no caloric intake for at least 8 hours. Fasting plasma glucose results between 100 to 125 mg/dL indicate increased risk for diabetes (prediabetes).Fasting plasma glucose results greater than or equal to 126 mg/dL meet the criteria for diagnosis of diabetes. In the absence of unequivocal hyperglycemia, results should be confirmed by repeat testing. In a patient with classic symptoms of hyperglycemia or hyperglycemic crisis, random plasma glucose results greater than or equal to 200 mg/dL meet the criteria for diagnosis of diabetes.Reference: Standards of Medical Care in Diabetes 2016, [place] [employer]. Diabetes Care. 2016.39(Suppl 1). Performed By: #### 2 777-1, 29782-3, ####[facility] NORRISSHIRA [id number] [place] [address] [place] Potassium [Moles/Vol] 3.7 mmol/L Normal 3.7-5.1 [facility] Comment on above: Order Comment: Katie men Type: BLOOD SPECIMENOrdering Facility: [facility] Address: [address] [place] [address] Performed By: #### 2 777-1, 47520-1, ####[facility] CLAY COUNTYPALOMA [id number] [place] [address] [place] Protein [Mass/Vol] 6.4 g/dL Normal 6.3-8.0 [facility] Comment on above: Order Comment: Katie holman Type: BLOOD SPECIMENOrdering Facility: [facility] Address: [address] [place] [address] Performed By: #### 2 777-1, 12777-2, ####[facility] CLAY COUNTYLMA [id number] [place] [address] [place] Sodium [Moles/Vol] 131 mmol/L Low 136-144 [facility] Comment on above: Order Comment: Aleshai men Type: BLOOD SPECIMENOrdering Facility: [facility] Address: [address] [place] [address] Performed By: #### 2 777-1, 73500-3, ####[facility] HOSPITALCLARISSANCLIA [id number] [place] [address] [place] Urea nitrogen [Mass/Vol] 7 mg/dL Low 9-24 [facility] Comment on above: Order Comment: Speci men Type: BLOOD SPECIMENOrdering Facility: [facility] Address: [address] [place], [place] [address] Performed By: #### 2 777-1, 29917-6, ####[facility] MILLTOWNCLIA [id number] [place] [address] [place] Magnesium SerPl-mCncon 02-07 Magnesium [Mass/Vol] 1.3 mg/dL Low 1.7-2.3 [facility] Comment on above: Order Comment: Speci men Type: BLOOD SPECIMENOrdering Facility: [facility] Address: [address] [place] [address] Performed By: #### 2 777-1, 12849-5, ####[facility] MILLWNCLIA [id number] [place] [address] [place] Phosphate SerPl-mCncon 02-07 Phosphate [Mass/Vol] 2.9 mg/dL Normal 2.7-4.8 [facility] Comment on above: Order Comment: Speci men Type: BLOOD SPECIMENOrdering Facility: [facility] Address: [address] [place], [place] [address] Performed By: #### 2 777-1, , ####[facility] MILLWNCLIA [id number] [place] [address] [place] CNPNon 02-06-2025 CNPN Normal [facility] Basic metabolic 2000 panelon 02-03-2025 Anion gap [Moles/Vol] 8 mmol/L Normal 8-15 [facility] Comment on above: Order Comment: Speci men Type: BLOOD SPECIMENOrdering Facility: [facility] Address: [address] [place] [address] Performed By: #### 2 4321-2 ####[facility]ORATORYCLIA [id number] [place] [address] [place] Calcium [Mass/Vol] 9.0 mg/dL Normal 8.5-10.2 [facility] Comment on above: Order Comment: Speci men Type: BLOOD SPECIMENOrdering Facility: [facility] Address: [address] [place] [address] Performed By: #### 2 4321-2 ####[facility] LABORATORYCLIA [id number] [place] [address] [place] Chloride [Moles/Vol] 100 mmol/L Normal 98-107 [facility] Comment on above: Order Comment: Speci men Type: BLOOD SPECIMENOrdering Facility: [facility] Address: [address] [place] [address] Performed By: #### 2 4321-2 ####[facility] LABORATORYCLIA [id number] [address] [place] CO2 [Moles/Vol] 26 mmol/L Normal 22-30 [facility] Comment on above: Order Comment: Speci men Type: BLOOD SPECIMENOrdering Facility: [facility] Address: [address] [place] [address] Performed By: #### 2 4321-2 ####[facility] LABORATORYCLIA [id number] [place] [address] [place] Creatinine [Mass/Vol] 0.47 mg/dL Low 0.73-1.22 [facility] Comment on above: Order Comment: Speci men Type: BLOOD SPECIMENOrdering Facility: [facility] Address: [address] [place] [address] Performed By: #### 2 4321-2 ####[facility] LABORATORYCLIA [id number] [address] [place] eGFRcr SerPlBld CKD-EPI 2020 116 mL/min/1.73m??? Normal >=60 [facility] Comment on above: Order Comment: Speci men Type: BLOOD SPECIMENOrdering Facility: [facility] Address: [address] [place] [address] Result Comment: Lisa mated Glomerular Filtration Rate (eGFR) is calculated using the 2020 CKD-EPI creatinine equation. This equation utilizes serum creatinine, sex, and age as parameters. The creatinine assay has traceable calibration to isotope dilution-mass spectrometry. Refer to KDIGO guidelines for clinical interpretation. In patients with unstable renal function, e.g. those with acute kidney injury, the eGFR may not accurately reflect actual GFR. Performed By: #### 2 4321-2 ####[facility] LABORATORYCLIA [id number] [place] [address] [place] Glucose [Mass/Vol] 109 mg/dL High 74-99 [facility] Comment on above: Order Comment: Katie holman Type: BLOOD SPECIMENOrdering Facility: [facility] Address: [address] [place] [address] Result Comment: The [place] [employer] (ADA) provides guidance for cutoff values for fasting glucose and random glucose. The ADA defines fasting as no caloric intake for at least 8 hours. Fasting plasma glucose results between 100 to 125 mg/dL indicate increased risk for diabetes (prediabetes).Fasting plasma glucose results greater than or equal to 126 mg/dL meet the criteria for diagnosis of diabetes. In the absence of unequivocal hyperglycemia, results should be confirmed by repeat testing. In a patient with classic symptoms of hyperglycemia or hyperglycemic crisis, random plasma glucose results greater than or equal to 200 mg/dL meet the criteria for diagnosis of diabetes.Reference: Standards of Medical Care in Diabetes 2016, [place] [employer]. Diabetes Care. 2016.39(Suppl 1). Performed By: #### 2 4321-2 ####[facility] LABORATORYCLIA [id number] [place] [address] [place] Potassium [Moles/Vol] 3.9 mmol/L Normal 3.7-5.1 [facility] Comment on above: Order Comment: Katie holman Type: BLOOD SPECIMENOrdering Facility: [facility] Address: [address] [place] [id number] Performed By: #### 2 4321-2 ####[facility] LABORATORYCLIA [id number] [place] [address] [place] Sodium [Moles/Vol] 134 mmol/L Low 136-144 [facility] Comment on above: Order Comment: Speci men Type: BLOOD SPECIMENOrdering Facility: [facility] Address: [address] [place] [address] Performed By: #### 2 4321-2 ####[facility] LABORATORYCLIA [id number] [place] [id number] [place] Urea nitrogen [Mass/Vol] 4 mg/dL Low 9-24 [facility] Comment on above: Order Comment: Speci men Type: BLOOD SPECIMENOrdering Facility: [facility] Address: [address] [place] [address] Performed By: #### 2 4321-2 ####[facility] LABORATORYCLIA [id number] [address] [place] CASE MANAGEMon 02-03-2025 CASE MANAGEM Normal [facility] CASE MANAGEM Normal [facility] CBC panel Auto (Bld)on 02-03 Erythrocyte distribution width (RBC) [Ratio] 20.0 % High 11.5-15.0 [facility] Comment on above: Order Comment: Speci men Type: BLOOD SPECIMENOrdering Facility: [facility] Address: [address] [place] [address] Performed By: #### 5 8410-2 ####[facility] LABORATORYCLIA [id number] [place] [address] [place] Hematocrit (Bld) [Volume fraction] 31.8 % Low 39.0-51.0 [facility] Comment on above: Order Comment: Speci men Type: BLOOD SPECIMENOrdering Facility: [facility] Address: [address] [place] [address] Performed By: #### 5 8410-2 ####[facility] LABORATORYCLIA [id number] [place] [address] [place] Hemoglobin (Bld) [Mass/Vol] 10.2 g/dL Low 13.0-17.0 [facility] Comment on above: Order Comment: Speci men Type: BLOOD SPECIMENOrdering Facility: [facility] Address: [address] [place] [address] Performed By: #### 5 8410-2 ####[facility] LABORATORYCLIA [id number] [address] MCH (RBC) [Entitic mass] 28.7 pg Normal 26.0-34.0 [facility] Comment on above: Order Comment: Speci men Type: BLOOD SPECIMENOrdering Facility: [facility] Address: [address] [place] [address] Performed By: #### 5 8410-2 ####[facility] LABORATORYCLIA [id number] [address] MCHC (RBC) [Mass/Vol] 32.1 g/dL Normal 30.5-36.0 [facility] Comment on above: Order Comment: Speci men Type: BLOOD SPECIMENOrdering Facility: [facility] Address: [address] [place] [address] Performed By: #### 5 8410-2 ####[facility] LABORATORYCLIA [id number] [address] MCV (RBC) [Entitic vol] 89.6 fL Normal 80.0-100.0 [facility] Comment on above: Order Comment: Speci men Type: BLOOD SPECIMENOrdering Facility: [facility] Address: [address] [place] [address] Performed By: #### 5 8410-2 ####[facility] LABORATORYCLIA [id number] [address] Nucleated RBC (Bld) [#/Vol] 10*3/uL Normal <0.01 [facility] Comment on above: Order Comment: Speci men Type: BLOOD SPECIMENOrdering Facility: [facility] Address: [address] [place] [address] Performed By: #### 5 8410-2 ####[facility] LABORATORYCLIA [id number] [address] Platelet mean volume (Bld) [Entitic vol] 10.5 fL Normal 9.0-12.7 [facility] Comment on above: Order Comment: Speci men Type: BLOOD SPECIMENOrdering Facility: [facility] Address: [address] [place] [address] Performed By: #### 5 8410-2 ####[facility] LABORATORYCLIA [id number] [place] [address] [place] Platelets (Bld) [#/Vol] 128 10*3/uL Low 150-400 [facility] Comment on above: Order Comment: Speci men Type: BLOOD SPECIMENOrdering Facility: [facility] Address: [address] [place] [address] Result Comment: No c lot detected. Performed By: #### 5 8410-2 ####[facility] LABORATORYCLIA [id number] [place] [address] [place] RBC (Bld) [#/Vol] 3.55 10*6/uL Low 4.20-6.00 [facility] Comment on above: Order Comment: Speci men Type: BLOOD SPECIMENOrdering Facility: [facility] Address: [address] [place] [address] Performed By: #### 5 8410-2 ####[facility] LABORATORYCLIA [id number] [address] STATES OF [facility] WBC (Bld) [#/Vol] 3.28 10*3/uL Low 3.70-11.00 [facility] Comment on above: Order Comment: Speci men Type: BLOOD SPECIMENOrdering Facility: [facility] Address: [address] [place] [address] Performed By: #### 5 8410-2 ####[facility] LABORATORYCLIA [id number] [address] [place] CNDSon 02-03-2025 CNDS Normal [facility] CNPNon 02-03-2025 CNPN Normal [facility] Basic metabolic 2000 panelon 02-02-2025 Anion gap [Moles/Vol] 8 mmol/L Normal 8-15 [facility] Comment on above: Order Comment: Speci men Type: BLOOD SPECIMENOrdering Facility: [facility] Address: [address] [place] [address] Performed By: #### 2 4321-2 ####[facility]ORATORYCLIA [id number] [place] [address] [place] Calcium [Mass/Vol] 8.4 mg/dL Low 8.5-10.2 [facility] Comment on above: Order Comment: Speci men Type: BLOOD SPECIMENOrdering Facility: [facility] Address: [address] [place] [address] Performed By: #### 2 4321-2 ####[facility] LABORATORYCLIA [id number] [place] [address] [place] Chloride [Moles/Vol] 100 mmol/L Normal 98-107 [facility] Comment on above: Order Comment: Speci men Type: BLOOD SPECIMENOrdering Facility: [facility] Address: [address] [place] [address] Performed By: #### 2 4321-2 ####[facility] LABORATORYCLIA [id number] [place] [address] [place] CO2 [Moles/Vol] 27 mmol/L Normal 22-30 [facility] Comment on above: Order Comment: Speci men Type: BLOOD SPECIMENOrdering Facility: [facility] Address: [address] [place] [address] Performed By: #### 2 4321-2 ####[facility] LABORATORYCLIA [id number] [place] [address] [place] Creatinine [Mass/Vol] 0.48 mg/dL Low 0.73-1.22 [facility] Comment on above: Order Comment: Speci men Type: BLOOD SPECIMENOrdering Facility: [facility] Address: [address] [place] [address] Performed By: #### 2 4321-2 ####[facility] LABORATORYCLIA [id number] [place] [address] [place] eGFRcr SerPlBld CKD-EPI 2020 115 mL/min/1.73m??? Normal >=60 [facility] Comment on above: Order Comment: Katie holman Type: BLOOD SPECIMENOrdering Facility: [facility] Address: [address] [place] [address] Result Comment: Lisa mated Glomerular Filtration Rate (eGFR) is calculated using the 2020 CKD-EPI creatinine equation. This equation utilizes serum creatinine, sex, and age as parameters. The creatinine assay has traceable calibration to isotope dilution-mass spectrometry. Refer to KDIGO guidelines for clinical interpretation. In patients with unstable renal function, e.g. those with acute kidney injury, the eGFR may not accurately reflect actual GFR. Performed By: #### 2 4321-2 ####[facility] LABORATORYCLIA [id number] [place] [address] [place] Glucose [Mass/Vol] 110 mg/dL High 74-99 [facility] Comment on above: Order Comment: Katie holman Type: BLOOD SPECIMENOrdering Facility: [facility] Address: [address] [place] [address] Result Comment: The [place] [employer] (ADA) provides guidance for cutoff values for fasting glucose and random glucose. The ADA defines fasting as no caloric intake for at least 8 hours. Fasting plasma glucose results between 100 to 125 mg/dL indicate increased risk for diabetes (prediabetes).Fasting plasma glucose results greater than or equal to 126 mg/dL meet the criteria for diagnosis of diabetes. In the absence of unequivocal hyperglycemia, results should be confirmed by repeat testing. In a patient with classic symptoms of hyperglycemia or hyperglycemic crisis, random plasma glucose results greater than or equal to 200 mg/dL meet the criteria for diagnosis of diabetes.Reference: Standards of Medical Care in Diabetes 2016, [place] [employer]. Diabetes Care. 2016.39(Suppl 1). Performed By: #### 2 4321-2 ####[facility] LABORATORYCLIA [id number] [place] [address] [place] Potassium [Moles/Vol] 3.3 mmol/L Low 3.7-5.1 [facility] Comment on above: Order Comment: Katie holman Type: BLOOD SPECIMENOrdering Facility: [facility] Address: [address] [place] [address] Performed By: #### 2 4321-2 ####[facility] LABORATORYCLIA [id number] [address] Sodium [Moles/Vol] 135 mmol/L Low 136-144 [facility] Comment on above: Order Comment: Speci men Type: BLOOD SPECIMENOrdering Facility: [facility] Address: [address] [place] [address] Performed By: #### 2 4321-2 ####[facility] LABORATORYCLIA [id number] [address] STATES [facility] Urea nitrogen [Mass/Vol] 5 mg/dL Low 9-24 [facility] Comment on above: Order Comment: Speci men Type: BLOOD SPECIMENOrdering Facility: [facility] Address: [address] [place] [address] Performed By: #### 2 4321-2 ####[facility] LABORATORYCLIA [id number] [address] CBC panel Auto (Bld)on 02-02 Erythrocyte distribution width (RBC) [Ratio] 19.9 % High 11.5-15.0 [facility] Comment on above: Order Comment: Speci men Type: BLOOD SPECIMENOrdering Facility: [facility] Address: [address] [place] [address] Performed By: #### 5 8410-2 ####[facility] LABORATORYCLIA [id number] [address] STATES [facility] Hematocrit (Bld) [Volume fraction] 32.7 % Low 39.0-51.0 [facility] Comment on above: Order Comment: Speci men Type: BLOOD SPECIMENOrdering Facility: [facility] Address: [address] [place] [address] Performed By: #### 5 8410-2 ####[facility] LABORATORYCLIA [id number] [address] Hemoglobin (Bld) [Mass/Vol] 10.4 g/dL Low 13.0-17.0 [facility] Comment on above: Order Comment: Speci men Type: BLOOD SPECIMENOrdering Facility: [facility] Address: [address] [place] [address] Performed By: #### 5 8410-2 ####[facility] LABORATORYCLIA [id number] [address] MCH (RBC) [Entitic mass] 28.7 pg Normal 26.0-34.0 [facility] Comment on above: Order Comment: Speci men Type: BLOOD SPECIMENOrdering Facility: [facility] Address: [address] [place] [address] Performed By: #### 5 8410-2 ####[facility]ORATORYCLIA [id number] [address] MCHC (RBC) [Mass/Vol] 31.8 g/dL Normal 30.5-36.0 [facility] Comment on above: Order Comment: Speci men Type: BLOOD SPECIMENOrdering Facility: [facility] Address: [address] [place] [address] Performed By: #### 5 8410-2 ####[facility]ORATORYCLIA [id number] [address] MCV (RBC) [Entitic vol] 90.1 fL Normal 80.0-100.0 [facility] Comment on above: Order Comment: Speci men Type: BLOOD SPECIMENOrdering Facility: [facility] Address: [address] [place] [address] Performed By: #### 5 8410-2 ####[facility] LABORATORYCLIA [id number] [address] Nucleated RBC (Bld) [#/Vol] 10*3/uL Normal <0.01 [facility] Comment on above: Order Comment: Speci men Type: BLOOD SPECIMENOrdering Facility: [facility] Address: [address] [place] [address] Performed By: #### 5 8410-2 ####[facility]ORATORYCLIA [id number] [address] [place] Platelet mean volume (Bld) [Entitic vol] 10.5 fL Normal 9.0-12.7 [facility] Comment on above: Order Comment: Speci men Type: BLOOD SPECIMENOrdering Facility: [facility] Address: [address] [place] [address] Performed By: #### 5 8410-2 ####[facility]ORATORYCLIA [id number] [place] [address] [place] Platelets (Bld) [#/Vol] 151 10*3/uL Normal 150-400 [facility] Comment on above: Order Comment: Speci men Type: BLOOD SPECIMENOrdering Facility: [facility] Address: [address] [place] [address] Performed By: #### 5 8410-2 ####[facility]ORATORYCLIA [id number] [place] [address] [place] RBC (Bld) [#/Vol] 3.63 10*6/uL Low 4.20-6.00 [facility] Comment on above: Order Comment: Speci men Type: BLOOD SPECIMENOrdering Facility: [facility] Address: [address] [place] [address] Performed By: #### 5 8410-2 ####[facility]ORATORYCLIA [id number] [address] [place] WBC (Bld) [#/Vol] 3.71 10*3/uL Normal 3.70-11.00 [facility] Comment on above: Order Comment: Speci men Type: BLOOD SPECIMENOrdering Facility: [facility] Address: [address] [place] [address] Performed By: #### 5 8410-2 ####[facility]ORATORYCLIA [id number] [address] [place] CNPNon 02-02-2025 CNPN Normal [facility] NURSING PROGon 02-02-2025 NURSING PROG Normal [facility] Basic metabolic 2000 panelon 07-16-2025 Anion gap [Moles/Vol] 10 mmol/L Normal 8-15 [facility] Comment on above: Order Comment: Speci men Type: BLOOD SPECIMENOrdering Facility: [facility] Address: [address] [place] [address] Performed By: #### 2 4321-2 ####[facility]ORATORYCLIA [id number] [place] [address] [place] Calcium [Mass/Vol] 8.3 mg/dL Low 8.5-10.2 [facility] Comment on above: Order Comment: Speci men Type: BLOOD SPECIMENOrdering Facility: [facility] Address: [address] [place] [address] Performed By: #### 2 4321-2 ####[facility]ORATORYCLIA [id number] [place] [address] [place] Chloride [Moles/Vol] 100 mmol/L Normal 98-107 [facility] Comment on above: Order Comment: Speci men Type: BLOOD SPECIMENOrdering Facility: [facility] Address: [address] [place] [address] Performed By: #### 2 4321-2 ####[facility]ORATORYCLIA [id number] [place] [address] [place] CO2 [Moles/Vol] 26 mmol/L Normal 22-30 [facility] Comment on above: Order Comment: Speci men Type: BLOOD SPECIMENOrdering Facility: [facility] Address: [address] [place] [address] Performed By: #### 2 4321-2 ####[facility]ORATORYCLIA [id number] [place] [address] [place] Creatinine [Mass/Vol] 0.48 mg/dL Low 0.73-1.22 [facility] Comment on above: Order Comment: Speci men Type: BLOOD SPECIMENOrdering Facility: [facility] Address: [address] [place] [address] Performed By: #### 2 4321-2 ####[facility] LABORATORYCLIA [id number] [place] [address] [place] eGFRcr SerPlBld CKD-EPI 2020 115 mL/min/1.73m??? Normal >=60 [facility] Comment on above: Order Comment: Katie holman Type: BLOOD SPECIMENOrdering Facility: [facility] Address: [address] [place] [address] Result Comment: Lisa mated Glomerular Filtration Rate (eGFR) is calculated using the 2020 CKD-EPI creatinine equation. This equation utilizes serum creatinine, sex, and age as parameters. The creatinine assay has traceable calibration to isotope dilution-mass spectrometry. Refer to KDIGO guidelines for clinical interpretation. In patients with unstable renal function, e.g. those with acute kidney injury, the eGFR may not accurately reflect actual GFR. Performed By: #### 2 4321-2 ####[facility]ORATORYCLIA [id number] [place] [address] [place] Glucose [Mass/Vol] 98 mg/dL Normal 74-99 [facility] Comment on above: Order Comment: Katie holman Type: BLOOD SPECIMENOrdering Facility: [facility] Address: [address] [place] [address] Result Comment: The [place] [employer] (ADA) provides guidance for cutoff values for fasting glucose and random glucose. The ADA defines fasting as no caloric intake for at least 8 hours. Fasting plasma glucose results between 100 to 125 mg/dL indicate increased risk for diabetes (prediabetes).Fasting plasma glucose results greater than or equal to 126 mg/dL meet the criteria for diagnosis of diabetes. In the absence of unequivocal hyperglycemia, results should be confirmed by repeat testing. In a patient with classic symptoms of hyperglycemia or hyperglycemic crisis, random plasma glucose results greater than or equal to 200 mg/dL meet the criteria for diagnosis of diabetes.Reference: Standards of Medical Care in Diabetes 2016, [place] [employer]. Diabetes Care. 2016.39(Suppl 1). Performed By: #### 2 4321-2 ####[facility] LABORATORYCLIA [id number] [place] [id number] [place] Potassium [Moles/Vol] 3.1 mmol/L Low 3.7-5.1 [facility] Comment on above: Order Comment: Speci men Type: BLOOD SPECIMENOrdering Facility: [facility] Address: [address] [place] [address] Performed By: #### 2 4321-2 ####[facility]ORATORYCLIA [id number] [address] Sodium [Moles/Vol] 136 mmol/L Normal 136-144 [facility] Comment on above: Order Comment: Speci men Type: BLOOD SPECIMENOrdering Facility: [facility] Address: [address] [place] [address] Performed By: #### 2 4321-2 ####[facility]ORATORYCLIA [id number] [address] [place] Urea nitrogen [Mass/Vol] 6 mg/dL Low 9-24 [facility] Comment on above: Order Comment: Speci men Type: BLOOD SPECIMENOrdering Facility: [facility] Address: [address] [place] [address] Performed By: #### 2 4321-2 ####[facility]ORATORYCLIA [id number] [address] STATES [place] CASE MANAGEMon 02-01-2025 CASE MANAGEM Normal [facility] CBC panel Auto (Bld)on 02-01 Erythrocyte distribution width (RBC) [Ratio] 20.4 % High 11.5-15.0 [facility] Comment on above: Order Comment: Speci men Type: BLOOD SPECIMENOrdering Facility: [facility] Address: [address] [place] [address] Performed By: #### 5 8410-2 ####[facility]ORATORYCLIA [id number] [address] [place] Hematocrit (Bld) [Volume fraction] 33.5 % Low 39.0-51.0 [facility] Comment on above: Order Comment: Speci men Type: BLOOD SPECIMENOrdering Facility: [facility] Address: [address] [place] [address] Performed By: #### 5 8410-2 ####[facility]ORATORYCLIA [id number] [address] Hemoglobin (Bld) [Mass/Vol] 10.5 g/dL Low 13.0-17.0 [facility] Comment on above: Order Comment: Speci men Type: BLOOD SPECIMENOrdering Facility: [facility] Address: [address] [place] [address] Performed By: #### 5 8410-2 ####[facility]ORATORYCLIA [id number] [address] MCH (RBC) [Entitic mass] 28.6 pg Normal 26.0-34.0 [facility] Comment on above: Order Comment: Speci men Type: BLOOD SPECIMENOrdering Facility: [facility] Address: [address] [place] [address] Performed By: #### 5 8410-2 ####[facility]ORATORYCLIA [id number] [address] MCHC (RBC) [Mass/Vol] 31.3 g/dL Normal 30.5-36.0 [facility] Comment on above: Order Comment: Speci men Type: BLOOD SPECIMENOrdering Facility: [facility] Address: [address] [place] [address] Performed By: #### 5 8410-2 ####[facility]ORATORYCLIA [id number] [address] [place] MCV (RBC) [Entitic vol] 91.3 fL Normal 80.0-100.0 [facility] Comment on above: Order Comment: Speci men Type: BLOOD SPECIMENOrdering Facility: [facility] Address: [address] [place] [address] Performed By: #### 5 8410-2 ####[facility]ORATORYCLIA [id number] [address] Nucleated RBC (Bld) [#/Vol] 10*3/uL Normal <0.01 [facility] Comment on above: Order Comment: Speci men Type: BLOOD SPECIMENOrdering Facility: [facility] Address: [address] [place], [place] [address] Performed By: #### 5 8410-2 ####[facility]ORATORYCLIA [id number] [address] Platelet mean volume (Bld) [Entitic vol] 10.4 fL Normal 9.0-12.7 [facility] Comment on above: Order Comment: Speci men Type: BLOOD SPECIMENOrdering Facility: [facility] Address: [address] [place] [address] Performed By: #### 5 8410-2 ####[facility]ORATORYCLIA [id number] [address] [place] Platelets (Bld) [#/Vol] 174 10*3/uL Normal 150-400 [facility] Comment on above: Order Comment: Speci men Type: BLOOD SPECIMENOrdering Facility: [facility] Address: [address] [place] [address] Performed By: #### 5 8410-2 ####[facility]ORATORYCLIA [id number] [place] [address] [place] RBC (Bld) [#/Vol] 3.67 10*6/uL Low 4.20-6.00 [facility] Comment on above: Order Comment: Speci men Type: BLOOD SPECIMENOrdering Facility: [facility] Address: [address] [place] [address] Performed By: #### 5 8410-2 ####[facility]ATORYCLIA [id number] [place] [address] [place] WBC (Bld) [#/Vol] 4.43 10*3/uL Normal 3.70-11.00 [facility] Comment on above: Order Comment: Speci men Type: BLOOD SPECIMENOrdering Facility: [facility] Address: [address] [place] [address] Performed By: #### 5 8410-2 ####[facility]ORATORYCLIA [id number] [address] [place] NURSING PROGon 02-01-2025 NURSING PROG Normal [facility] Basic metabolic 2000 panelon 01-31-2025 Anion gap [Moles/Vol] 17 mmol/L High 8-15 [facility] Comment on above: Order Comment: Speci men Type: BLOOD SPECIMENOrdering Facility: [facility] Address: [address] [place] [address] Performed By: #### 2 4321-2 ####[facility]ORATORYCLIA [id number] [place] [address] [place] Calcium [Mass/Vol] 8.9 mg/dL Normal 8.5-10.2 [facility] Comment on above: Order Comment: Speci men Type: BLOOD SPECIMENOrdering Facility: [facility] Address: [address] [place] [address] Performed By: #### 2 4321-2 ####[facility]ORATORYCLIA [id number] [place] [address] [place] Chloride [Moles/Vol] 97 mmol/L Low 98-107 [facility] Comment on above: Order Comment: Speci men Type: BLOOD SPECIMENOrdering Facility: [facility] Address: [address] [place] [address] Performed By: #### 2 4321-2 ####[facility]ORYCLIA [id number] [place] [address] [place] CO2 [Moles/Vol] 21 mmol/L Low 22-30 [facility] Comment on above: Order Comment: Speci men Type: BLOOD SPECIMENOrdering Facility: [facility] Address: [address] [place] [address] Performed By: #### 2 4321-2 ####[facility]ATORYCLIA [id number] [place] [address] [place] Creatinine [Mass/Vol] 0.47 mg/dL Low 0.73-1.22 [facility] Comment on above: Order Comment: Speci men Type: BLOOD SPECIMENOrdering Facility: [facility] Address: [address] [place] [address] Performed By: #### 2 4321-2 ####[facility]OSPITALCLIA [id number] [place] [address] [place] Creatinine and Glomerular filtration rate.predicted panel (S/P/Bld) 116 mL/min/1.73m??? Normal >=60 [facility] Comment on above: Order Comment: Katie holman Type: BLOOD SPECIMENOrdering Facility: [facility] Address: [address] [place] [address] Result Comment: Lisa mated Glomerular Filtration Rate (eGFR) is calculated using the 2020 CKD-EPI creatinine equation. This equation utilizes serum creatinine, sex, and age as parameters. The creatinine assay has traceable calibration to isotope dilution-mass spectrometry. Refer to KDIGO guidelines for clinical interpretation. In patients with unstable renal function, e.g. those with acute kidney injury, the eGFR may not accurately reflect actual GFR. Performed By: #### 2 4321-2 ####[facility]ENTERIA [id number] [place] [address] [place] Glucose [Mass/Vol] 131 mg/dL High 74-99 [facility] Comment on above: Order Comment: Katie holman Type: BLOOD SPECIMENOrdering Facility: [facility] Address: [address] [place] [address] Result Comment: The [place] [employer] (ADA) provides guidance for cutoff values for fasting glucose and random glucose. The ADA defines fasting as no caloric intake for at least 8 hours. Fasting plasma glucose results between 100 to 125 mg/dL indicate increased risk for diabetes (prediabetes).Fasting plasma glucose results greater than or equal to 126 mg/dL meet the criteria for diagnosis of diabetes. In the absence of unequivocal hyperglycemia, results should be confirmed by repeat testing. In a patient with classic symptoms of hyperglycemia or hyperglycemic crisis, random plasma glucose results greater than or equal to 200 mg/dL meet the criteria for diagnosis of diabetes.Reference: Standards of Medical Care in Diabetes 2016, [place] [employer]. Diabetes Care. 2016.39(Suppl 1). Performed By: #### 2 4321-2 ####[facility] LABORATORYCLIA [id number] [place] [address] [place] Potassium [Moles/Vol] 3.8 mmol/L Normal 3.7-5.1 [facility] Comment on above: Order Comment: Speci men Type: BLOOD SPECIMENOrdering Facility: [facility] Address: [address] [place] [address] Performed By: #### 2 4321-2 ####[facility]ORATORYCLIA [id number] [address] [place] Sodium [Moles/Vol] 135 mmol/L Low 136-144 [facility] Comment on above: Order Comment: Speci men Type: BLOOD SPECIMENOrdering Facility: [facility] Address: [address] [place] [address] Performed By: #### 2 4321-2 ####[facility]ORATORYCLIA [id number] [address] Urea nitrogen [Mass/Vol] 5 mg/dL Low 9-24 [facility] Comment on above: Order Comment: Speci men Type: BLOOD SPECIMENOrdering Facility: [facility] Address: [address] [place] [address] Performed By: #### 2 4321-2 ####[facility]ORATORYCLIA [id number] [address] [place] CASE MGT INIT ASSESon 2024 CASE MGT INIT ASSES Normal [facility] CBC panel Auto (Bld)on 01-31 Erythrocyte distribution width (RBC) [Ratio] 20.0 % High 11.5-15.0 [facility] Comment on above: Order Comment: Speci men Type: BLOOD SPECIMENOrdering Facility: [facility] Address: [address] [place] [address] Performed By: #### 5 8410-2 ####[facility]ORATORYCLIA [id number] [address] Hematocrit (Bld) [Volume fraction] 38.1 % Low 39.0-51.0 [facility] Comment on above: Order Comment: Speci men Type: BLOOD SPECIMENOrdering Facility: [facility] Address: [address] [place] [address] Performed By: #### 5 8410-2 ####[facility]ORATORYCLIA [id number] [address] Hemoglobin (Bld) [Mass/Vol] 12.1 g/dL Low 13.0-17.0 [facility] Comment on above: Order Comment: Speci men Type: BLOOD SPECIMENOrdering Facility: [facility] Address: [address] [place] [address] Performed By: #### 5 8410-2 ####[facility] LABORATORYCLIA [id number] [address] OF [facility] MCH (RBC) [Entitic mass] 28.3 pg Normal 26.0-34.0 [facility] Comment on above: Order Comment: Speci men Type: BLOOD SPECIMENOrdering Facility: [facility] Address: [address] [place] [address] Performed By: #### 5 8410-2 ####[facility]ORATORYCLIA [id number] [address] MCHC (RBC) [Mass/Vol] 31.8 g/dL Normal 30.5-36.0 [facility] Comment on above: Order Comment: Speci men Type: BLOOD SPECIMENOrdering Facility: [facility] Address: [address] [place] [address] Performed By: #### 5 8410-2 ####[facility] LABORATORYCLIA [id number] [address] STATES [facility] MCV (RBC) [Entitic vol] 89.2 fL Normal 80.0-100.0 [facility] Comment on above: Order Comment: Speci men Type: BLOOD SPECIMENOrdering Facility: [facility] Address: [address] [place] [address] Performed By: #### 5 8410-2 ####[facility] LABORATORYCLIA [id number] [address] OF [facility] Nucleated RBC (Bld) [#/Vol] 10*3/uL Normal <0.01 [facility] Comment on above: Order Comment: Speci men Type: BLOOD SPECIMENOrdering Facility: [facility] Address: [address] [place] [address] Performed By: #### 5 8410-2 ####[facility] LABORATORYCLIA [id number] [place] [address] [place] Platelet mean volume (Bld) [Entitic vol] 9.8 fL Normal 9.0-12.7 [facility] Comment on above: Order Comment: Speci men Type: BLOOD SPECIMENOrdering Facility: [facility] Address: [address] [place] [address] Performed By: #### 5 8410-2 ####[facility] LABORATORYCLIA [id number] [place] [address] [place] Platelets (Bld) [#/Vol] 230 10*3/uL Normal 150-400 [facility] Comment on above: Order Comment: Speci men Type: BLOOD SPECIMENOrdering Facility: [facility] Address: [address] [place] [address] Performed By: #### 5 8410-2 ####[facility] LABORATORYCLIA [id number] [place] [address] [place] RBC (Bld) [#/Vol] 4.27 10*6/uL Normal 4.20-6.00 [facility] Comment on above: Order Comment: Speci men Type: BLOOD SPECIMENOrdering Facility: [facility] Address: [address] [place] [address] Performed By: #### 5 8410-2 ####[facility] LABORATORYCLIA [id number] [place] [address] [place] WBC (Bld) [#/Vol] 9.20 10*3/uL Normal 3.70-11.00 [facility] Comment on above: Order Comment: Speci men Type: BLOOD SPECIMENOrdering Facility: [facility] Address: [address] [place] [address] Performed By: #### 5 8410-2 ####[facility] LABORATORYCLIA [id number] [place] [address] [place] CNPNon 01-31-2025 CNPN Normal [facility] CONSULTon 01-31-2025 CONSULT Normal [facility] CONSULT Normal [facility] CONSULT PROGon 01-31-2025 CONSULT PROG Normal [facility] HISTORY PHYSICALon HISTORY PHYSICAL Normal [facility] NURSING PROGon 01-31-2025 NURSING PROG Normal [facility] NUTRITIONon 01-31-2025 NUTRITION Normal [facility] CBC W Auto Differential pane l (Bld)on 01-30-2025 Basophils (Bld) [#/Vol] [facility] Basophils/100 WBC (Bld) 0.1 % [facility] Differential cell count method Nom (Bld) Auto [facility] Eosinophils (Bld) [#/Vol] 0.03 10*3/uL [facility] Eosinophils/100 WBC (Bld) 0.4 % [facility] Erythrocyte distribution width (RBC) [Ratio] 21 % High 11.5 - 15.0 % [facility] Hematocrit (Bld) [Volume fraction] 37 % Low 39.0 - 51.0 % [facility] Hemoglobin (Bld) [Mass/Vol] 11.9 g/dL Low 13.0 - 17.0 g/dL [facility] Immature granulocytes (Bld) [#/Vol] 0.03 10*3/uL [facility] Immature granulocytes/100 WBC (Bld) 0.4 % [facility] Interpretation and review of laboratory results Abnormal [facility] Lymphocytes (Bld) [#/Vol] 1.23 10*3/uL [facility] Lymphocytes/100 WBC (Bld) 17.7 % [facility] MCH (RBC) [Entitic mass] 28.4 pg 26.0 - 34.0 pg [facility] MCHC (RBC) [Mass/Vol] 32.2 g/dL 30.5 - 36.0 g/dL [facility] MCV (RBC) [Entitic vol] 88.3 fL 80.0 - 100.0 [facility]L [facility] Monocytes (Bld) [#/Vol] 1.11 10*3/uL High [facility] Monocytes/100 WBC (Bld) 16 % [facility] Neutrophils (Bld) [#/Vol] 4.53 10*3/uL [facility] Neutrophils/100 WBC (Bld) 65.4 % [facility] Nucleated RBC (Bld) [#/Vol] NINF [facility] Nucleated RBC/100 WBC (Bld) [Ratio] 0 % /100 WBC [facility] Platelet mean volume (Bld) [Entitic vol] 9.1 fL 9.0 - 12.7 fL [facility] Platelets (Bld) [#/Vol] 233 10*3/uL [facility] RBC (Bld) [#/Vol] 4.19 10*6/uL Low 4.20 - 6.00 m/uL [facility] WBC (Bld) [#/Vol] 6.94 10*3/uL [facility] Basophils (Bld) [#/Vol] 10*3/uL Normal <0.11 [facility] Comment on above: Order Comment: Speci men Type: BLOOD SPECIMENOrdering Facility: [facility] Address: [address] [place] [address] Performed By: #### 5 7021-8 ####[facility] [id number] [place] [address] [place] Basophils/100 WBC (Bld) 0.1 % Normal [facility] Comment on above: Order Comment: Speci men Type: BLOOD SPECIMENOrdering Facility: [facility] Address: [address] [place] [address] Performed By: #### 5 7021-8 ####[facility] [id number] [place] [address] [place] Differential cell count method Nom (Bld) Auto Normal [facility] Comment on above: Order Comment: Speci men Type: BLOOD SPECIMENOrdering Facility: [facility] Address: [address] [place] [address] Performed By: #### 5 7021-8 ####[facility] [id number] [place] [address] [place] Eosinophils (Bld) [#/Vol] 0.03 10*3/uL Normal <0.46 [facility] Comment on above: Order Comment: Speci men Type: BLOOD SPECIMENOrdering Facility: [facility] Address: [address] [place] [address] Performed By: #### 5 7021-8 ####[facility] GORDAWINLIA [id number] [place] [address] [place] Eosinophils/100 WBC (Bld) 0.4 % Normal [facility] Comment on above: Order Comment: Speci men Type: BLOOD SPECIMENOrdering Facility: [facility] Address: [address] [place] [address] Performed By: #### 5 7021-8 ####[facility] [id number] [place] [address] [place] Erythrocyte distribution width (RBC) [Ratio] 21.0 % High 11.5-15.0 [facility] Comment on above: Order Comment: Speci men Type: BLOOD SPECIMENOrdering Facility: [facility] Address: [address] [place] [address] Performed By: #### 5 7021-8 ####[facility] [id number] [place] [address] [place] Hematocrit (Bld) [Volume fraction] 37.0 % Low 39.0-51.0 [facility] Comment on above: Order Comment: Speci men Type: BLOOD SPECIMENOrdering Facility: [facility] Address: [address] [place] [address] Performed By: #### 5 7021-8 ####[facility] [id number] [place] [address] [place] Hemoglobin (Bld) [Mass/Vol] 11.9 g/dL Low 13.0-17.0 [facility] Comment on above: Order Comment: Speci men Type: BLOOD SPECIMENOrdering Facility: [facility] Address: [address] [place] [address] Performed By: #### 5 7021-8 ####[facility] NORRISCOREYA [id number] [place] [address] [place] Immature granulocytes (Bld) [#/Vol] 0.03 10*3/uL Normal <0.10 [facility] Comment on above: Order Comment: Speci men Type: BLOOD SPECIMENOrdering Facility: [facility] Address: [address] [place] [address] Performed By: #### 5 7021-8 ####[facility] [id number] [place] [address] [place] Immature granulocytes/100 WBC (Bld) 0.4 % Normal [facility] Comment on above: Order Comment: Speci men Type: BLOOD SPECIMENOrdering Facility: [facility] Address: [address] [place] [address] Performed By: #### 5 7021-8 ####[facility] [id number] [place] [address] [place] Lymphocytes (Bld) [#/Vol] 1.23 10*3/uL Normal 1.00-4.00 [facility] Comment on above: Order Comment: Speci men Type: BLOOD SPECIMENOrdering Facility: [facility] Address: [address] [place] [address] Performed By: #### 5 7021-8 ####[facility] CENTERLIA [id number] [place] [address] [place] Lymphocytes/100 WBC (Bld) 17.7 % Normal [facility] Comment on above: Order Comment: Speci men Type: BLOOD SPECIMENOrdering Facility: [facility] Address: [address] [place] [address] Performed By: #### 5 7021-8 ####[facility] [id number] [place] [address] [place] MCH (RBC) [Entitic mass] 28.4 pg Normal 26.0-34.0 [facility] Comment on above: Order Comment: Speci men Type: BLOOD SPECIMENOrdering Facility: [facility] Address: [address] [place] [address] Performed By: #### 5 7021-8 ####[facility] [id number] [place] [address] [place] MCHC (RBC) [Mass/Vol] 32.2 g/dL Normal 30.5-36.0 [facility] Comment on above: Order Comment: Speci men Type: BLOOD SPECIMENOrdering Facility: [facility] Address: [address] [place] [address] Performed By: #### 5 7021-8 ####[facility] [id number] [place] [address] [place] MCV (RBC) [Entitic vol] 88.3 fL Normal 80.0-100.0 [facility] Comment on above: Order Comment: Speci men Type: BLOOD SPECIMENOrdering Facility: [facility] Address: [address] [place] [address] Performed By: #### 5 7021-8 ####[facility] [id number] [place] [address] [place] Monocytes (Bld) [#/Vol] 1.11 10*3/uL High <0.87 [facility] Comment on above: Order Comment: Speci men Type: BLOOD SPECIMENOrdering Facility: [facility] Address: [address] [place] [address] Performed By: #### 5 7021-8 ####[facility]YNCMO[facility] [id number] [place] [address] [place] Monocytes/100 WBC (Bld) 16.0 % Normal [facility] Comment on above: Order Comment: Speci men Type: BLOOD SPECIMENOrdering Facility: [facility] Address: [address] [place] [address] Performed By: #### 5 7021-8 ####[facility] C[facility] COUNTYNCA [id number] [place] [address] [place] Neutrophils (Bld) [#/Vol] 4.53 10*3/uL Normal 1.45-7.50 [facility] Comment on above: Order Comment: Speci men Type: BLOOD SPECIMENOrdering Facility: [facility] Address: [address] [place] [address] Performed By: #### 5 7021-8 ####[facility] [id number] [place] [address] [place] Neutrophils/100 WBC (Bld) 65.4 % Normal [facility] Comment on above: Order Comment: Speci men Type: BLOOD SPECIMENOrdering Facility: [facility] Address: [address] [place] [address] Performed By: #### 5 7021-8 ####[facility] [id number] [place] [address] [place] Nucleated RBC (Bld) [#/Vol] 10*3/uL Normal <0.01 [facility] Comment on above: Order Comment: Speci men Type: BLOOD SPECIMENOrdering Facility: [facility] Address: [address] [place] [address] Performed By: #### 5 7021-8 ####[facility] [id number] [place] [address] [place] Nucleated RBC/100 WBC (Bld) [Ratio] 0.0 /100 WBC Normal [facility] Comment on above: Order Comment: Speci men Type: BLOOD SPECIMENOrdering Facility: [facility] Address: [address] [place], [place] [address] Performed By: #### 5 7021-8 ####[facility] DENNISNCJOIE [id number] [place] [address] [place] Platelet mean volume (Bld) [Entitic vol] 9.1 fL Normal 9.0-12.7 [facility] Comment on above: Order Comment: Speci men Type: BLOOD SPECIMENOrdering Facility: [facility] Address: [address] [place] [address] Performed By: #### 5 7021-8 ####[facility] NORRISBALATONNCJOIE [id number] [place] [address] [place] Platelets (Bld) [#/Vol] 233 10*3/uL Normal 150-400 [facility] Comment on above: Order Comment: Speci men Type: BLOOD SPECIMENOrdering Facility: [facility] Address: [address] [place] [address] Performed By: #### 5 7021-8 ####[facility] CLAY COUNTYNCMICAA [id number] [place] [address] [place] RBC (Bld) [#/Vol] 4.19 10*6/uL Low 4.20-6.00 [facility] Comment on above: Order Comment: Speci men Type: BLOOD SPECIMENOrdering Facility: [facility] Address: [address] [place], [place] [address] Performed By: #### 5 7021-8 ####[facility] CLAY COUNTYNCLIA [id number] [place] [address] [place] WBC (Bld) [#/Vol] 6.94 10*3/uL Normal 3.70-11.00 [facility] Comment on above: Order Comment: Speci men Type: BLOOD SPECIMENOrdering Facility: [facility] Address: [address] [place] [address] Performed By: #### 5 7021-8 ####[facility] [id number] [place] [address] [place] Comprehensive metabolic 2000 panelOrdered By: Daisy Luis on 01-30-2025 Albumin [Mass/Vol] 3.3 g/dL Low 3.9 - 4.9 g/dL [facility] ALP [Catalytic activity/Vol] 108 U/L 38 - 113 U/L [facility] ALT [Catalytic activity/Vol] 26 U/L 10 - 54 U/L [facility] Anion gap [Moles/Vol] 13 mmol/L 8 - 15 mmol/L [facility] AST [Catalytic activity/Vol] 26 U/L 14 - 40 U/L [facility] Bilirubin [Mass/Vol] 0.4 mg/dL 0.2 - 1 .3 mg/dL [facility] Calcium [Mass/Vol] 9.5 mg/dL 8.5 - 10. 2 mg/dL [facility] Chloride [Moles/Vol] 100 mmol/L 98 - 10 7 mmol/L [facility] CO2 [Moles/Vol] 21 mmol/L Low 22 - 30 mmol/L [facility] Creatinine [Mass/Vol] 0.46 mg/dL Low 0.73 - 1.22 mg/dL [facility] GFR/1.73 sq M.predicted among non-blacks MDRD (S/P/Bld) [Vol rate/Area] 117 mL/min/{1.73_m2} - PINF [facility] Comment on above: Estimated Glomerular Filtration Rate (eGFR) is calculated using the 2020 CKD-EPI creatinine equation. This equation utilizes serum creatinine, sex, and age as parameters. The creatinine assay has traceable calibration to isotope dilution-mass spectrometry. Refer to KDIGO guidelines for clinical interpretation. In patients with unstable renal function, e.g. those with acute kidney injury, the eGFR may not accurately reflect actual GFR. Glucose [Mass/Vol] 105 mg/dL High 74 - 99 mg/dL [facility] Comment on above: The [place] [employer] Association (ADA) provides guidance for cutoff values for fasting glucose and random glucose. The ADA defines fasting as no caloric intake for at least 8 hours. Fasting plasma glucose results between 100 to 125 mg/dL indicate increased risk for diabetes (prediabetes). Fasting plasma glucose results greater than or equal to 126 mg/dL meet the criteria for diagnosis of diabetes. In the absence of unequivocal hyperglycemia, results should be confirmed by repeat testing. In a patient with classic symptoms of hyperglycemia or hyperglycemic crisis, random plasma glucose results greater than or equal to 200 mg/dL meet the criteria for diagnosis of diabetes. Reference: Standards of Medical Care in Diabetes 2016, [place] [employer]. Diabetes Care. 2016.39(Suppl 1). Interpretation and review of laboratory results Abnormal [facility] Potassium [Moles/Vol] 3.4 mmol/L Low 3.7 - 5.1 mmol/L [facility] Protein [Mass/Vol] 6.3 g/dL 6.3 - 8.0 g/dL [facility] Sodium [Moles/Vol] 134 mmol/L Low 136 - 144 mmol/L [facility] Urea nitrogen [Mass/Vol] 5 mg/dL Low 9 - 24 mg/dL [facility] Comprehensive metabolic 2000 panelon 01-30-2025 Albumin [Mass/Vol] 3.3 g/dL Low 3.9-4.9 [facility] Comment on above: Order Comment: Speci men Type: BLOOD SPECIMENOrdering Facility: [facility] Address: [address] [place] [address] Performed By: #### 2 4323-8 ####[facility] [id number] [place] [address] [place] ALP [Catalytic activity/Vol] 108 U/L Normal 38-113 [facility] Comment on above: Order Comment: Speci men Type: BLOOD SPECIMENOrdering Facility: [facility] Address: [address] [place] [address] Performed By: #### 2 4323-8 ####[facility] [id number] [place] [address] [place] ALT [Catalytic activity/Vol] 26 U/L Normal 10-54 [facility] Comment on above: Order Comment: Speci men Type: BLOOD SPECIMENOrdering Facility: [facility] Address: [address] [place] [id number] Performed By: #### 2 4323-8 ####[facility] MILLTOWNCLIA [id number] [place] [address] [place] Anion gap [Moles/Vol] 13 mmol/L Normal 8-15 [facility] Comment on above: Order Comment: Speci men Type: BLOOD SPECIMENOrdering Facility: [facility] Address: [address] [place] [address] Performed By: #### 2 4323-8 ####[facility] MILLWNCLIA [id number] [place] [address] [place] AST [Catalytic activity/Vol] 26 U/L Normal 14-40 [facility] Comment on above: Order Comment: Speci men Type: BLOOD SPECIMENOrdering Facility: [facility] Address: [address] [place] [address] Performed By: #### 2 4323-8 ####[facility] GORDAWNCLIA [id number] [place] [address] [place] Bilirubin [Mass/Vol] 0.4 mg/dL Normal 0.2-1.3 [facility] Comment on above: Order Comment: Speci men Type: BLOOD SPECIMENOrdering Facility: [facility] Address: [facility] [place] [address] Performed By: #### 2 4323-8 ####[facility] MILLTOWNCLIA [id number] [place] [address] [place] Calcium [Mass/Vol] 9.5 mg/dL Normal 8.5-10.2 [facility] Comment on above: Order Comment: Speci men Type: BLOOD SPECIMENOrdering Facility: [facility] Address: [address] [place] [address] Performed By: #### 2 4323-8 ####[facility] MILLWNCLIA [id number] [place] [address] [place] Chloride [Moles/Vol] 100 mmol/L Normal 98-107 [facility] Comment on above: Order Comment: Speci men Type: BLOOD SPECIMENOrdering Facility: [facility] Address: [address] [place] [address] Performed By: #### 2 4323-8 ####[facility]YNCM[facility] [id number] [place] [address] [place] CO2 [Moles/Vol] 21 mmol/L Low 22-30 [facility] Comment on above: Order Comment: Speci men Type: BLOOD SPECIMENOrdering Facility: [facility] Address: [address] [place] [address] Performed By: #### 2 4323-8 ####[facility] [id number] [place] [address] [place] Creatinine [Mass/Vol] 0.46 mg/dL Low 0.73-1.22 [facility] Comment on above: Order Comment: Speci men Type: BLOOD SPECIMENOrdering Facility: [facility] Address: [address] [place] [address] Performed By: #### 2 4323-8 ####[facility] CLAY COUNTYNCLI [id number] [place] [address] [place] Creatinine and Glomerular filtration rate.predicted panel (S/P/Bld) 117 mL/min/1.73m??? Normal >=60 [facility] Comment on above: Order Comment: Speci men Type: BLOOD SPECIMENOrdering Facility: [facility] Address: [address] [place] [address] Result Comment: Lisa mated Glomerular Filtration Rate (eGFR) is calculated using the 2020 CKD-EPI creatinine equation. This equation utilizes serum creatinine, sex, and age as parameters. The creatinine assay has traceable calibration to isotope dilution-mass spectrometry. Refer to KDIGO guidelines for clinical interpretation. In patients with unstable renal function, e.g. those with acute kidney injury, the eGFR may not accurately reflect actual GFR. Performed By: #### 2 4323-8 ####[facility]DAWNCL[facility] [id number] [place] [address] [place] Glucose [Mass/Vol] 105 mg/dL High 74-99 [facility] Comment on above: Order Comment: Speci men Type: BLOOD SPECIMENOrdering Facility: [facility] Address: [address] [place] [address] Result Comment: The [place] Diabetes [employer] (ADA) provides guidance for cutoff values for fasting glucose and random glucose. The ADA defines fasting as no caloric intake for at least 8 hours. Fasting plasma glucose results between 100 to 125 mg/dL indicate increased risk for diabetes (prediabetes).Fasting plasma glucose results greater than or equal to 126 mg/dL meet the criteria for diagnosis of diabetes. In the absence of unequivocal hyperglycemia, results should be confirmed by repeat testing. In a patient with classic symptoms of hyperglycemia or hyperglycemic crisis, random plasma glucose results greater than or equal to 200 mg/dL meet the criteria for diagnosis of diabetes.Reference: Standards of Medical Care in Diabetes 2016, [place] [employer]. Diabetes Care. 2016.39(Suppl 1). Performed By: #### 2 4323-8 ####[facility] CLAY COUNTYNCLIA [id number] [place] [address] [place] Potassium [Moles/Vol] 3.4 mmol/L Low 3.7-5.1 [facility] Comment on above: Order Comment: Speci men Type: BLOOD SPECIMENOrdering Facility: [facility] Address: [address] [place] [address] Performed By: #### 2 4323-8 ####[facility] CLAY COUNTYNCLIA [id number] [place] [address] [place] Protein [Mass/Vol] 6.3 g/dL Normal 6.3-8.0 [facility] Comment on above: Order Comment: Speci men Type: BLOOD SPECIMENOrdering Facility: [facility] Address: [address] [place] [address] Performed By: #### 2 4323-8 ####[facility] CENTERLIA [id number] [place] [address] [place] Sodium [Moles/Vol] 134 mmol/L Low 136-144 [facility] Comment on above: Order Comment: Speci men Type: BLOOD SPECIMENOrdering Facility: [facility] Address: [address] [place] [address] Performed By: #### 2 4323-8 ####[facility] [id number] [place] [address] [place] Urea nitrogen [Mass/Vol] 5 mg/dL Low 9-24 [facility] Comment on above: Order Comment: Speci men Type: BLOOD SPECIMENOrdering Facility: [facility] Address: [address] [place] [address] Performed By: #### 2 4323-8 ####[facility] [id number] [place] [address] [place] Basic metabolic 2000 panelon 01-29-2025 Anion gap [Moles/Vol] 18 mmol/L High 8-15 [facility] Comment on above: Order Comment: Speci men Type: BLOOD SPECIMENOrdering Facility: [facility] Address: [address] [place] [address] Performed By: #### 2 4321-2 ####[facility]ORATORYCLIA [id number] [place] [address] [place] Calcium [Mass/Vol] 9.3 mg/dL Normal 8.5-10.2 [facility] Comment on above: Order Comment: Speci men Type: BLOOD SPECIMENOrdering [facility] Address: [address] [place] [address] Performed By: #### 2 4321-2 ####[facility] LABORATORYCLIA [id number] [place] [address] [place] Chloride [Moles/Vol] 95 mmol/L Low 98-107 [facility] Comment on above: Order Comment: Speci men Type: BLOOD SPECIMENOrdering Facility: [facility] Address: [address] [place] [address] Performed By: #### 2 4321-2 ####[facility] LABORATORYCLIA [id number] [address] [place] CO2 [Moles/Vol] 19 mmol/L Low 22-30 [facility] Comment on above: Order Comment: Speci men Type: BLOOD SPECIMENOrdering Facility: [facility] Address: [address] [place] [address] Performed By: #### 2 4321-2 ####[facility] H[facility]PITALCLIA [id number] [address] STATES OF [facility] Creatinine [Mass/Vol] 0.40 mg/dL Low 0.73-1.22 [facility] Comment on above: Order Comment: Speci men Type: BLOOD SPECIMENOrdering Facility: [facility] Address: [address] [place] [address] Performed By: #### 2 4321-2 ####[facility] LABORATORYCLIA [id number] [address] Creatinine and Glomerular filtration rate.predicted panel (S/P/Bld) 122 mL/min/1.73m??? Normal >=60 [facility] Comment on above: Order Comment: Speci men Type: BLOOD SPECIMENOrdering Facility: [facility] Address: [address] [place] [address] Result Comment: Lisa mated Glomerular Filtration Rate (eGFR) is calculated using the 2020 CKD-EPI creatinine equation. This equation utilizes serum creatinine, sex, and age as parameters. The creatinine assay has traceable calibration to isotope dilution-mass spectrometry. Refer to KDIGO guidelines for clinical interpretation. In patients with unstable renal function, e.g. those with acute kidney injury, the eGFR may not accurately reflect actual GFR. Performed By: #### 2 4321-2 ####[facility] LABORATORYCLIA [id number] [place] [address] [place] Glucose [Mass/Vol] 93 mg/dL Normal 74-99 [facility] Comment on above: Order Comment: Speci men Type: BLOOD SPECIMENOrdering Facility: [facility] Address: [address] [place] [address] Result Comment: The [place] [employer] (ADA) provides guidance for cutoff values for fasting glucose and random glucose. The ADA defines fasting as no caloric intake for at least 8 hours. Fasting plasma glucose results between 100 to 125 mg/dL indicate increased risk for diabetes (prediabetes).Fasting plasma glucose results greater than or equal to 126 mg/dL meet the criteria for diagnosis of diabetes. In the absence of unequivocal hyperglycemia, results should be confirmed by repeat testing. In a patient with classic symptoms of hyperglycemia or hyperglycemic crisis, random plasma glucose results greater than or equal to 200 mg/dL meet the criteria for diagnosis of diabetes.Reference: Standards of Medical Care in Diabetes 2016, [place] [employer]. Diabetes Care. 2016.39(Suppl 1). Performed By: #### 2 4321-2 ####[facility] LABORATORYCLIA [id number] [place] [address] [place] Potassium [Moles/Vol] 3.5 mmol/L Low 3.7-5.1 [facility] Comment on above: Order Comment: Aleshai men Type: BLOOD SPECIMENOrdering Facility: [facility] Address: [address] [place] [address] Performed By: #### 2 4321-2 ####[facility] LABORATORYCLIA [id number] [place] [address] [place] Sodium [Moles/Vol] 132 mmol/L Low 136-144 [facility] Comment on above: Order Comment: Speci men Type: BLOOD SPECIMENOrdering Facility: [facility] Address: [address] [place] [address] Performed By: #### 2 4321-2 ####[facility] LABORATORYCLIA [id number] [place] [address] [place] Urea nitrogen [Mass/Vol] 5 mg/dL Low 9-24 [facility] Comment on above: Order Comment: Speci men Type: BLOOD SPECIMENOrdering Facility: [facility] Address: [address] [place] [address] Performed By: #### 2 4321-2 ####[facility] LABORATORYCLIA [id number] [address] [place] CASE MGT INIT ASSESon 2024 CASE MGT INIT ASSES Normal [facility] CBC panel Auto (Bld)on 01-29 Erythrocyte distribution width (RBC) [Ratio] 20.1 % High 11.5-15.0 [facility] Comment on above: Order Comment: Speci men Type: BLOOD SPECIMENOrdering Facility: [facility] Address: [address] [place] [address] Performed By: #### 5 8410-2 ####[facility] LABORATORYCLIA [id number] [address] STATES [facility] Hematocrit (Bld) [Volume fraction] 41.1 % Normal 39.0-51.0 [facility] Comment on above: Order Comment: Speci men Type: BLOOD SPECIMENOrdering Facility: [facility] Address: [address] [place] [address] Performed By: #### 5 8410-2 ####[facility] LABORATORYCLIA [id number] [address] [place] Hemoglobin (Bld) [Mass/Vol] 12.9 g/dL Low 13.0-17.0 [facility] Comment on above: Order Comment: Speci men Type: BLOOD SPECIMENOrdering Facility: [facility] Address: [address] [place] [address] Performed By: #### 5 8410-2 ####[facility] LABORATORYCLIA [id number] [address] [place] MCH (RBC) [Entitic mass] 28.4 pg Normal 26.0-34.0 [facility] Comment on above: Order Comment: Speci men Type: BLOOD SPECIMENOrdering Facility: [facility] Address: [address] [place] [address] Performed By: #### 5 8410-2 ####[facility] LABORATORYCLIA [id number] [address] STATES [facility] MCHC (RBC) [Mass/Vol] 31.4 g/dL Normal 30.5-36.0 [facility] Comment on above: Order Comment: Speci men Type: BLOOD SPECIMENOrdering Facility: [facility] Address: [address] [place] [address] Performed By: #### 5 8410-2 ####[facility] LABORATORYCLIA [id number] [address] [place] MCV (RBC) [Entitic vol] 90.5 fL Normal 80.0-100.0 [facility] Comment on above: Order Comment: Speci men Type: BLOOD SPECIMENOrdering Facility: [facility] Address: [address] [place] [address] Performed By: #### 5 8410-2 ####[facility] LABORATORYCLIA [id number] [address] Nucleated RBC (Bld) [#/Vol] 10*3/uL Normal <0.01 [facility] Comment on above: Order Comment: Speci men Type: BLOOD SPECIMENOrdering Facility: [facility] Address: [address] [place] [address] Performed By: #### 5 8410-2 ####[facility] LABORATORYCLIA [id number] [address] Platelet mean volume (Bld) [Entitic vol] 9.4 fL Normal 9.0-12.7 [facility] Comment on above: Order Comment: Speci men Type: BLOOD SPECIMENOrdering Facility: [facility] Address: [address] [place] [address] Performed By: #### 5 8410-2 ####[facility] LABORATORYCLIA [id number] [address] [place] Platelets (Bld) [#/Vol] 231 10*3/uL Normal 150-400 [facility] Comment on above: Order Comment: Speci men Type: BLOOD SPECIMENOrdering Facility: [facility] Address: [address] [place] [address] Performed By: #### 5 8410-2 ####[facility] LABORATORYCLIA [id number] [address] [place] RBC (Bld) [#/Vol] 4.54 10*6/uL Normal 4.20-6.00 [facility] Comment on above: Order Comment: Speci men Type: BLOOD SPECIMENOrdering Facility: [facility] Address: [address] [place] [address] Performed By: #### 5 8410-2 ####[facility] LABORATORYCLIA [id number] [address] [place] WBC (Bld) [#/Vol] 10.72 10*3/uL Normal 3.70-11.00 [facility] Comment on above: Order Comment: Speci men Type: BLOOD SPECIMENOrdering Facility: [facility] Address: [address] [place] [address] Performed By: #### 5 8410-2 ####[facility] LABORATORYCLIA [id number] [place] [address] [place] CNDSon 01-29-2025 CNDS Normal [facility] XR ESOPHAGRAMon 01-29-2025 XR ESOPHAGRAM Normal [facility] Basic metabolic 2000 panelon 01-28-2025 Anion gap [Moles/Vol] 14 mmol/L Normal 8-15 [facility] Comment on above: Order Comment: Speci men Type: BLOOD SPECIMENOrdering Facility: [facility] Address: [address] [place] [address] Performed By: #### 2 4321-2 ####[facility] LABORATORYCLIA [id number] [address] STATES OF [facility] Calcium [Mass/Vol] 8.5 mg/dL Normal 8.5-10.2 [facility] Comment on above: Order Comment: Speci men Type: BLOOD SPECIMENOrdering Facility: [facility] Address: [address] [place] [address] Performed By: #### 2 4321-2 ####[facility] LABORATORYCLIA [id number] [address] [place] Chloride [Moles/Vol] 98 mmol/L Normal 98-107 [facility] Comment on above: Order Comment: Speci men Type: BLOOD SPECIMENOrdering Facility: [facility] Address: [address] [place] [address] Performed By: #### 2 4321-2 ####[facility] LABORATORYCLIA [id number] [address] [place] CO2 [Moles/Vol] 22 mmol/L Normal 22-30 [facility] Comment on above: Order Comment: Speci men Type: BLOOD SPECIMENOrdering Facility: [facility] Address: [address] [place] [address] Performed By: #### 2 4321-2 ####[facility] LABORATORYCLIA [id number] [address] Creatinine [Mass/Vol] 0.44 mg/dL Low 0.73-1.22 [facility] Comment on above: Order Comment: Speci men Type: BLOOD SPECIMENOrdering Facility: [facility] Address: [address] [place] [address] Performed By: #### 2 4321-2 ####[facility] LABORATORYCLIA [id number] [address] Creatinine and Glomerular filtration rate.predicted panel (S/P/Bld) 118 mL/min/1.73m??? Normal >=60 [facility] Comment on above: Order Comment: Speci men Type: BLOOD SPECIMENOrdering Facility: [facility] Address: [address] [place] [address] Result Comment: Lisa mated Glomerular Filtration Rate (eGFR) is calculated using the 2020 CKD-EPI creatinine equation. This equation utilizes serum creatinine, sex, and age as parameters. The creatinine assay has traceable calibration to isotope dilution-mass spectrometry. Refer to KDIGO guidelines for clinical interpretation. In patients with unstable renal function, e.g. those with acute kidney injury, the eGFR may not accurately reflect actual GFR. Performed By: #### 2 4321-2 ####[facility] LABORATORYCLIA [id number] [place] [address] [place] Glucose [Mass/Vol] 65 mg/dL Low 74-99 [facility] Comment on above: Order Comment: Katie river Type: BLOOD SPECIMENOrdering Facility: [facility] Address: [address] [place] [address] Result Comment: The [place] [employer] (ADA) provides guidance for cutoff values for fasting glucose and random glucose. The ADA defines fasting as no caloric intake for at least 8 hours. Fasting plasma glucose results between 100 to 125 mg/dL indicate increased risk for diabetes (prediabetes).Fasting plasma glucose results greater than or equal to 126 mg/dL meet the criteria for diagnosis of diabetes. In the absence of unequivocal hyperglycemia, results should be confirmed by repeat testing. In a patient with classic symptoms of hyperglycemia or hyperglycemic crisis, random plasma glucose results greater than or equal to 200 mg/dL meet the criteria for diagnosis of diabetes.Reference: Standards of Medical Care in Diabetes 2016, [place] [employer]. Diabetes Care. 2016.39(Suppl 1). Performed By: #### 2 4321-2 ####[facility] LABORATORYCLIA [id number] [place] [address] [place] Potassium [Moles/Vol] 3.6 mmol/L Low 3.7-5.1 [facility] Comment on above: Order Comment: Katie holman Type: BLOOD SPECIMENOrdering Facility: [facility] Address: [address] [place] [address] Performed By: #### 2 4321-2 ####[facility] LABORATORYCLIA [id number] [place] [address] [place] Sodium [Moles/Vol] 134 mmol/L Low 136-144 [facility] Comment on above: Order Comment: Katie river Type: BLOOD SPECIMENOrdering Facility: [facility] Address: [address] [place] [id number] Performed By: #### 2 4321-2 ####[facility] LABORATORYCLIA [id number] [address] [place] Urea nitrogen [Mass/Vol] 5 mg/dL Low 9-24 [facility] Comment on above: Order Comment: Speci men Type: BLOOD SPECIMENOrdering Facility: [facility] Address: [address] [place] [address] Performed By: #### 2 4321-2 ####[facility] LABORATORYCLIA [id number] [place] [id number] [place] CBC panel Auto (Bld)on 01-28 Erythrocyte distribution width (RBC) [Ratio] 20.4 % High 11.5-15.0 [facility] Comment on above: Order Comment: Speci men Type: BLOOD SPECIMENOrdering Facility: [facility] Address: [address] [place] [address] Performed By: #### 5 8410-2 ####[facility] LABORATORYCLIA [id number] [address] STATES [facility] Hematocrit (Bld) [Volume fraction] 36.7 % Low 39.0-51.0 [facility] Comment on above: Order Comment: Speci men Type: BLOOD SPECIMENOrdering Facility: [facility] Address: [address] [place] [address] Performed By: #### 5 8410-2 ####[facility] LABORATORYCLIA [id number] [place] [id number] [place] Hemoglobin (Bld) [Mass/Vol] 11.5 g/dL Low 13.0-17.0 [facility] Comment on above: Order Comment: Speci men Type: BLOOD SPECIMENOrdering Facility: [facility] Address: [address] [place] [address] Performed By: #### 5 8410-2 ####[facility] LABORATORYCLIA [id number] [address] MCH (RBC) [Entitic mass] 28.8 pg Normal 26.0-34.0 [facility] Comment on above: Order Comment: Speci men Type: BLOOD SPECIMENOrdering Facility: [facility] Address: [address] [place] [address] Performed By: #### 5 8410-2 ####[facility] LABORATORYCLIA [id number] [address] MCHC (RBC) [Mass/Vol] 31.3 g/dL Normal 30.5-36.0 [facility] Comment on above: Order Comment: Speci men Type: BLOOD SPECIMENOrdering Facility: [facility] Address: [address] [place] [address] Performed By: #### 5 8410-2 ####[facility] LABORATORYCLIA [id number] [address] MCV (RBC) [Entitic vol] 92.0 fL Normal 80.0-100.0 [facility] Comment on above: Order Comment: Speci men Type: BLOOD SPECIMENOrdering Facility: [facility] Address: [address] [place] [address] Performed By: #### 5 8410-2 ####[facility] LABORATORYCLIA [id number] [address] Nucleated RBC (Bld) [#/Vol] 10*3/uL Normal <0.01 [facility] Comment on above: Order Comment: Speci men Type: BLOOD SPECIMENOrdering Facility: [facility] Address: [address] [place] [address] Performed By: #### 5 8410-2 ####[facility] LABORATORYCLIA [id number] [address] Platelet mean volume (Bld) [Entitic vol] 9.6 fL Normal 9.0-12.7 [facility] Comment on above: Order Comment: Speci men Type: BLOOD SPECIMENOrdering Facility: [facility] Address: [address] [place] [address] Performed By: #### 5 8410-2 ####[facility] LABORATORYCLIA [id number] [address] Platelets (Bld) [#/Vol] 208 10*3/uL Normal 150-400 [facility] Comment on above: Order Comment: Speci men Type: BLOOD SPECIMENOrdering Facility: [facility] Address: [address] [place] [address] Performed By: #### 5 8410-2 ####[facility] LABORATORYCLIA [id number] [place] [address] [place] RBC (Bld) [#/Vol] 3.99 10*6/uL Low 4.20-6.00 [facility] Comment on above: Order Comment: Speci men Type: BLOOD SPECIMENOrdering Facility: [facility] Address: [address] [place] [address] Performed By: #### 5 8410-2 ####[facility] LABORATORYCLIA [id number] [address] [place] WBC (Bld) [#/Vol] 7.15 10*3/uL Normal 3.70-11.00 [facility] Comment on above: Order Comment: Speci men Type: BLOOD SPECIMENOrdering Facility: [facility] Address: [address] [place] [address] Performed By: #### 5 8410-2 ####[facility] LABORATORYCLIA [id number] [address] [place] NURSING PROGon 01-28-2025 NURSING PROG Normal [facility] NURSING PROG Normal [facility] NUTRITIONon 01-28-2025 NUTRITION Normal [facility] ANES POSTPROC EVALon 025 ANES POSTPROC EVAL Normal [facility] ANES PRE-OPon 01-27-2025 ANES PRE-OP Normal [facility] CONSULTon 01-27-2025 CONSULT Normal [facility] OPERATIVE NOon 01-27-2025 OPERATIVE NO Normal [facility] CBC W/Diff, Automatedon 01-17 PATH REV Reviewed Normal [facility] Comment on above: Result Comment: SEE REPORT IN PATIENT'S EMR AMENDED REPORT 01/26/25 1149 PATH REV previously reported as: May foll Performed By: #### L 500.4050, L503.6005, L100.0100, L300.4310, L501.5200, L300.3900 #### [facility] [address] [place], [address] CNCOon 01-26-2025 CNCO Letter Text Normal [facility] ANES POSTPROC EVALon 025 ANES POSTPROC EVAL Normal [facility] ANES PRE-OPon 01-19-2025 ANES PRE-OP Normal [facility] Bronchoscopyon 01-19-2025 Bronchoscopy Normal [facility] CNOVon 01-19-2025 CNOV Normal [facility] CNPNon 01-19-2025 CNPN Normal [facility] CYTOLOGY NON-GYNon ADEQUACY INTERPRETATION Normal [facility] Comment on above: Order Comment: Speci men Type: SPECIMEN OBTAINED BY ASPIRATIONOrdering Facility: [facility] Address: [address] [place] [address] Result Comment: A: # 1 Lymphoid sample #2 Non-diagnostic #[address] Ney Prakash // eNy Dowell letter in the above intra-procedural assessment refers to a unique site. The specific site is indicated in the final diagnosis portion of the report. Each number in this assessment references a discrete evaluation episode.Intra-procedural assessment performed at [facility], [address] [place] [address] Performed By: #### C RENAN ####[facility] LABCLIA [id number] [address] [place] AP DISCLAIMER Normal [facility] Comment on above: Order Comment: Speci men Type: SPECIMEN OBTAINED BY ASPIRATIONOrdering Facility: [facility] Address: [address] [place] [address] Result Comment: Milind mejias Developed Test (LDT) Disclaimer:Performance characteristics of immunohistochemical, immunofluorescent, and chromogenic in-situ hybridization tests have been determined by the performing laboratory within [facility]'s [facility] Pathology and Laboratory Medicine Department ([facility], [facility], [facility], [facility], [facility], [facility], or [facility]) in a manner consistent with CLIA requirements. One or more of these tests may not have been cleared or approved by the FDA. [facility] is regulated under CLIA as qualified to perform high-complexity testing. These tests are used for clinical purposes. These should not be regarded as investigational or for research. Positive and negative controls stain appropriately. Performed By: #### C YTONON ####[facility] LABCLIA [id number] [place] [address] [place] CASE REPORT Normal [facility] Comment on above: Order Comment: Speci men Type: SPECIMEN OBTAINED BY ASPIRATIONOrdering Facility: [facility] Address: [address] [place] [address] Result Comment: [facility] Cytology Report Case: [id number] Provider: Ashleigh Everett MD Collected: 01/19/2025 07:47 AMOrdering Location: Admitting Received: 01/19/2025 09:25 AMPathologist: Elise Prakash MDSpecimen: Lymph Node, Transbronchial, 11RS Performed By: #### C YTONON ####[facility] LABCLIA [id number] [address] [place] CLINICAL HISTORY Right hilar lymphadenopathy, history of esophageal adenocarcinoma Normal [facility] Comment on above: Order Comment: Speci men Type: SPECIMEN OBTAINED BY ASPIRATIONOrdering Facility: [facility] Address: [address] [place] [address] Performed By: #### C YTONON ####[facility] LABCLIA [id number] [address] OF [facility] FINAL DIAGNOSIS Normal [facility] Comment on above: Order Comment: Speci men Type: SPECIMEN OBTAINED BY ASPIRATIONOrdering Facility: [facility] Address: [address] [place] [address] Result Comment: A - Lymph Node, Transbronchial, FNA - 11RS Negative for malignant cells. Benign reactive lymphoid sample.The following cell blocks were associated with this case:A1 Cell Block, Alcohol Fixed at 1702 EDT Performed By: #### C YTONON ####[facility] LABCLIA [id number] [place] [address] [place] FINAL PERFORMING LAB Normal [facility] Comment on above: Order Comment: Speci men Type: SPECIMEN OBTAINED BY ASPIRATIONOrdering Facility: [facility] Address: [address] [place] [address] Result Comment: Tech nical component, supervisor labor gang screening performed at: [facility], [address] [place] [address] CLIA: [id number] interpretation performed at: [facility], [address] [place] [address] CLIA# [id number] Director: Anthony Kern MD Performed By: #### C YTONON ####[facility] LABCLIA [id number] [address] [place] GROSS DESCRIPTION Normal [facility] Comment on above: Order Comment: Speci men Type: SPECIMEN OBTAINED BY ASPIRATIONOrdering Facility: [facility] Address: [address] [place] [address] Result Comment: A. L ymph Node, [id number] cc hazy pink CytoLyt with material. ThinPrep and Cell Block prepared and 6 smears (3 air dried and 3 fixed). Performed By: #### C YTONON ####[facility] LABCLIA [id number] [place] [address] [place] [id number] 01-19-2025 ECG01 Normal [facility] Gas and Carbon monoxide pane l (BldV)on 01-19-2025 Base excess Calc (BldV) [Moles/Vol] 4 mmol/L High 0-2 [facility] Comment on above: Order Comment: Speci men Type: VENOUS BLOOD SPECIMENOrdering Facility: [facility] Address: [address] [place] [address] Performed By: #### 2 4344-4 ####[facility] [id number] [place] [address] [place] Body temperature 98.6 [degF] Normal [facility] Comment on above: Order Comment: Speci men Type: VENOUS BLOOD SPECIMENOrdering Facility: [facility] Address: [address] [place] [address] Performed By: #### 2 4344-4 ####[facility] [id number] [place] [address] [place] Calcium.ionized (Bld) [Mass/Vol] 1.19 mmol/L Normal 1.08-1.30 [facility] Comment on above: Order Comment: Speci men Type: VENOUS BLOOD SPECIMENOrdering Facility: [facility] Address: [address] [place] [address] Performed By: #### 2 4344-4 ####[facility] [id number] [place] [address] [place] Calcium.ionized adjusted to pH 7.4 (BldA) [Moles/Vol] 1.20 mmol/L Normal 1.08-1.30 [facility] Comment on above: Order Comment: Speci men Type: VENOUS BLOOD SPECIMENOrdering Facility: [facility] Address: [address] [place] [address] Performed By: #### 2 4344-4 ####[facility] [id number] [place] [address] [place] Carboxyhemoglobin (BldV) [Mass fraction] 4.2 % High 0.0-2.0 [facility] Comment on above: Order Comment: Speci men Type: VENOUS BLOOD SPECIMENOrdering Facility: [facility] Address: [address] [place] [address] Result Comment: Carb oxyhemoglobin Reference Range for Smokers: 2.0-8.0% Performed By: #### 2 4344-4 ####[facility] LABCLIA [id number] [address], [place] [address] [place] CO2 (BldV) [Partial pressure] 46 mm[Hg] Normal 42-55 [facility] Comment on above: Order Comment: Speci men Type: VENOUS BLOOD SPECIMENOrdering Facility: [facility] Address: [address] [place] [address] Performed By: #### 2 4344-4 ####[facility] [id number] [place] [address] [place] Glucose [Mass/Vol] 100 mg/dL Normal 60-105 [facility] Comment on above: Order Comment: Speci men Type: VENOUS BLOOD SPECIMENOrdering Facility: [facility] Address: [address] [place] [address] Performed By: #### 2 4344-4 ####[facility] LABCL[facility] [id number] [place] [id number] [place] HCO3 (Bld) [Moles/Vol] 29 mmol/L High 24-28 [facility] Comment on above: Order Comment: Speci men Type: VENOUS BLOOD SPECIMENOrdering Facility: [facility] Address: [address] [place] [address] Performed By: #### 2 4344-4 ####[facility]CL[facility] [id number] [address], [facility] [place] Hematocrit (Bld) [Volume fraction] 36.0 % Low 39.0-51.0 [facility] Comment on above: Order Comment: Speci men Type: VENOUS BLOOD SPECIMENOrdering Facility: [facility] Address: [address] [place] [address] Performed By: #### 2 4344-4 ####[facility] LAB[facility] [id number] [place] [address] [place] Hemoglobin (Bld) [Mass/Vol] 11.7 g/dL Low 13.0-17.0 [facility] Comment on above: Order Comment: Speci men Type: VENOUS BLOOD SPECIMENOrdering Facility: [facility] Address: [address] [place] [address] Performed By: #### 2 4344-4 ####[facility] LABIA [id number] [place] [address] [place] Lactate [Moles/Vol] 0.8 mmol/L Normal 0.5-2.2 [facility] Comment on above: Order Comment: Speci men Type: VENOUS BLOOD SPECIMENOrdering Facility: [facility] Address: [address] [place] [address] Performed By: #### 2 4344-4 ####[facility] LABIA [id number] [place] [address] [place] Methemoglobin (Bld) [Mass fraction] 1.0 % Normal 0.0-1.5 [facility] Comment on above: Order Comment: Speci men Type: VENOUS BLOOD SPECIMENOrdering Facility: [facility] Address: [address] [place] [address] Performed By: #### 2 4344-4 ####[facility] LABIA [id number] [place] [address] [place] O2 THERAPY RA=Room Air Normal [facility] Comment on above: Order Comment: Speci men Type: VENOUS BLOOD SPECIMENOrdering Facility: [facility] Address: [address] [place], [place] [address] Performed By: #### 2 4344-4 ####[facility] LABIA [id number] [place] [id number] [place] Oxygen (BldV) [Partial pressure] 37 mm[Hg] Normal 35-45 [facility] Comment on above: Order Comment: Speci men Type: VENOUS BLOOD SPECIMENOrdering Facility: [facility] Address: [address] [place] [address] Performed By: #### 2 4344-4 ####[facility]CL[facility] [id number] [address] [address] [place] Oxygen saturation in Venous blood 62 % Normal 60-85 [facility] Comment on above: Order Comment: Speci men Type: VENOUS BLOOD SPECIMENOrdering Facility: [facility] Address: [address] [place] [address] Performed By: #### 2 4344-4 ####[facility] LABIA [id number] [address] [address] [place] Oxyhemoglobin (BldV) [Mass fraction] 59 % Low 60-85 [facility] Comment on above: Order Comment: Speci men Type: VENOUS BLOOD SPECIMENOrdering Facility: [facility] Address: [address] [place] [address] Performed By: #### 2 4344-4 ####[facility] LABIA [id number] [address] [address] [place] pH (BldV) 7.42 [pH] Normal 7.32-7.42 [facility] Comment on above: Order Comment: Speci men Type: VENOUS BLOOD SPECIMENOrdering Facility: [facility] Address: [address] [place], [place] [address] Performed By: #### 2 4344-4 ####[facility] LABIA [id number] [address] [address] [place] Potassium [Moles/Vol] 3.1 mmol/L Low 3.5-5.0 [facility] Comment on above: Order Comment: Speci men Type: VENOUS BLOOD SPECIMENOrdering Facility: [facility] Address: [address] [place], [place] [address] Performed By: #### 2 4344-4 ####[facility] LABCL[facility] [id number] [place] [address] [place] Sodium [Moles/Vol] 138 mmol/L Normal 136-144 [facility] Comment on above: Order Comment: Speci men Type: VENOUS BLOOD SPECIMENOrdering Facility: [facility] Address: [address] [place] [address] Performed By: #### 2 4344-4 ####[facility] LABCL[facility] [id number] [place] [address] [place] HISTORY PHYSICALon HISTORY PHYSICAL Normal [facility] CBC panel Auto (Bld)on 01-13 Erythrocyte distribution width (RBC) [Ratio] 21.3 % High 11.5-15.0 [facility] Comment on above: Order Comment: Speci men Type: BLOOD SPECIMENOrdering Facility: [facility] Address: [address] [place] [address] Performed By: #### 5 8410-2 ####[facility] LABORATORYCLIA [id number] [address] [place] Hematocrit (Bld) [Volume fraction] 36.0 % Low 39.0-51.0 [facility] Comment on above: Order Comment: Speci men Type: BLOOD SPECIMENOrdering Facility: [facility] Address: [address] [place] [address] Performed By: #### 5 8410-2 ####[facility] LABORATORYCLIA [id number] [place] [address] [place] Hemoglobin (Bld) [Mass/Vol] 11.3 g/dL Low 13.0-17.0 [facility] Comment on above: Order Comment: Speci men Type: BLOOD SPECIMENOrdering Facility: [facility] Address: [address] [place] [address] Performed By: #### 5 8410-2 ####[facility] LABORATORYCLIA [id number] [place] [address] [place] MCH (RBC) [Entitic mass] 28.0 pg Normal 26.0-34.0 [facility] Comment on above: Order Comment: Speci men Type: BLOOD SPECIMENOrdering Facility: [facility] Address: [address] [place] [address] Performed By: #### 5 8410-2 ####[facility] LABORATORYCLIA [id number] [address] STATES [facility] MCHC (RBC) [Mass/Vol] 31.4 g/dL Normal 30.5-36.0 [facility] Comment on above: Order Comment: Speci men Type: BLOOD SPECIMENOrdering Facility: [facility] Address: [address] [place] [address] Performed By: #### 5 8410-2 ####[facility] LABORATORYCLIA [id number] [address] [place] MCV (RBC) [Entitic vol] 89.3 fL Normal 80.0-100.0 [facility] Comment on above: Order Comment: Speci men Type: BLOOD SPECIMENOrdering Facility: [facility] Address: [address] [place] [address] Performed By: #### 5 8410-2 ####[facility] LABORATORYCLIA [id number] [address] Nucleated RBC (Bld) [#/Vol] 0.03 10*3/uL High <0.01 [facility] Comment on above: Order Comment: Speci men Type: BLOOD SPECIMENOrdering Facility: [facility] Address: [address] [place] [address] Performed By: #### 5 8410-2 ####[facility] LABORATORYCLIA [id number] [address] [place] Platelet mean volume (Bld) [Entitic vol] 10.0 fL Normal 9.0-12.7 [facility] Comment on above: Order Comment: Speci men Type: BLOOD SPECIMENOrdering Facility: [facility] Address: [address] [place] [address] Performed By: #### 5 8410-2 ####[facility] LABORATORYCLIA [id number] [address] STATES OF [facility] Platelets (Bld) [#/Vol] 297 10*3/uL Normal 150-400 [facility] Comment on above: Order Comment: Speci men Type: BLOOD SPECIMENOrdering Facility: [facility] Address: [address] [place] [address] Performed By: #### 5 8410-2 ####[facility] LABORATORYCLIA [id number] [place] [address] [place] RBC (Bld) [#/Vol] 4.03 10*6/uL Low 4.20-6.00 [facility] Comment on above: Order Comment: Speci men Type: BLOOD SPECIMENOrdering Facility: [facility] Address: [address] [place] [address] Performed By: #### 5 8410-2 ####[facility] LABORATORYCLIA [id number] [address] STATES OF [facility] WBC (Bld) [#/Vol] 9.38 10*3/uL Normal 3.70-11.00 [facility] Comment on above: Order Comment: Speci men Type: BLOOD SPECIMENOrdering Facility: [facility] Address: [address] [place] [address] Performed By: #### 5 8410-2 ####[facility] LABORATORYCLIA [id number] [address] OF [facility] Comprehensive metabolic 2000 panelon 01-13-2025 Albumin [Mass/Vol] 3.2 g/dL Low 3.9-4.9 [facility] Comment on above: Order Comment: Speci men Type: BLOOD SPECIMENOrdering Facility: [facility] Address: [address] [place] [address] Performed By: #### 2 4323-8 ####[facility] LABORATORYCLIA [id number] [address] ALP [Catalytic activity/Vol] 108 U/L Normal 38-113 [facility] Comment on above: Order Comment: Speci men Type: BLOOD SPECIMENOrdering Facility: [facility] Address: [address] [place] [address] Performed By: #### 2 4323-8 ####[facility] LABORATORYCLIA [id number] [place] [address] [place] ALT With P-5'-P [Catalytic activity/Vol] 77 U/L High 10-54 [facility] Comment on above: Order Comment: Speci men Type: BLOOD SPECIMENOrdering Facility: [facility] Address: [address] [place] [address] Performed By: #### 2 4323-8 ####[facility] LABORATORYCLIA [id number] [address] [place] Anion gap [Moles/Vol] 12 mmol/L Normal 8-15 [facility] Comment on above: Order Comment: Speci men Type: BLOOD SPECIMENOrdering Facility: [facility] Address: [address] [place] [address] Performed By: #### 2 4323-8 ####[facility] LABORATORYCLIA [id number] [address] [place] AST With P-5'-P [Catalytic activity/Vol] 72 U/L High 14-40 [facility] Comment on above: Order Comment: Speci men Type: BLOOD SPECIMENOrdering Facility: [facility] Address: [address] [place] [address] Performed By: #### 2 4323-8 ####[facility] LABORATORYCLIA [id number] [place] [address] [place] Bilirubin [Mass/Vol] 0.5 mg/dL Normal 0.2-1.3 [facility] Comment on above: Order Comment: Speci men Type: BLOOD SPECIMENOrdering Facility: [facility] Address: [address] [place] [address] Performed By: #### 2 4323-8 ####[facility] LABORATORYCLIA [id number] [place] [address] [place] Calcium [Mass/Vol] 8.8 mg/dL Normal 8.5-10.2 [facility] Comment on above: Order Comment: Speci men Type: BLOOD SPECIMENOrdering Facility: [facility] Address: [address] [place] [address] Performed By: #### 2 4323-8 ####[facility] LABORATORYCLIA [id number] [place] [address] [place] Chloride [Moles/Vol] 97 mmol/L Low 98-107 [facility] Comment on above: Order Comment: Speci men Type: BLOOD SPECIMENOrdering Facility: [facility] Address: [address] [place] [address] Performed By: #### 2 4323-8 ####[facility] LABORATORYCLIA [id number] [place] [address] [place] CO2 [Moles/Vol] 26 mmol/L Normal 22-30 [facility] Comment on above: Order Comment: Speci men Type: BLOOD SPECIMENOrdering Facility: [facility] Address: [address] [place] [address] Performed By: #### 2 4323-8 ####[facility] LABORATORYCLIA [id number] [place] [address] [place] Creatinine [Mass/Vol] 0.61 mg/dL Low 0.73-1.22 [facility] Comment on above: Order Comment: Speci men Type: BLOOD SPECIMENOrdering Facility: [facility] Address: [address] [place] [address] Performed By: #### 2 4323-8 ####[facility] LABORATORYCLIA [id number] [address] Creatinine and Glomerular filtration rate.predicted panel (S/P/Bld) 107 mL/min/1.73m??? Normal >=60 [facility] Comment on above: Order Comment: Speci men Type: BLOOD SPECIMENOrdering Facility: [facility] Address: [address] [place] [address] Result Comment: Lisa mated Glomerular Filtration Rate (eGFR) is calculated using the 2020 CKD-EPI creatinine equation. This equation utilizes serum creatinine, sex, and age as parameters. The creatinine assay has traceable calibration to isotope dilution-mass spectrometry. Refer to KDIGO guidelines for clinical interpretation. In patients with unstable renal function, e.g. those with acute kidney injury, the eGFR may not accurately reflect actual GFR. Performed By: #### 2 4323-8 ####[facility] LABORATORYCLIA [id number] [place] [address] [place] Glucose [Mass/Vol] 88 mg/dL Normal 74-99 [facility] Comment on above: Order Comment: Aleshai men Type: BLOOD SPECIMENOrdering Facility: [facility] Address: [address] [place] [address] Result Comment: The [place] [employer] (ADA) provides guidance for cutoff values for fasting glucose and random glucose. The ADA defines fasting as no caloric intake for at least 8 hours. Fasting plasma glucose results between 100 to 125 mg/dL indicate increased risk for diabetes (prediabetes).Fasting plasma glucose results greater than or equal to 126 mg/dL meet the criteria for diagnosis of diabetes. In the absence of unequivocal hyperglycemia, results should be confirmed by repeat testing. In a patient with classic symptoms of hyperglycemia or hyperglycemic crisis, random plasma glucose results greater than or equal to 200 mg/dL meet the criteria for diagnosis of diabetes.Reference: Standards of Medical Care in Diabetes 2016, [place] [employer]. Diabetes Care. 2016.39(Suppl 1). Performed By: #### 2 4323-8 ####[facility] LABORATORYCLIA [id number] [place] [address] [place] Potassium [Moles/Vol] 3.5 mmol/L Low 3.7-5.1 [facility] Comment on above: Order Comment: Katie holman Type: BLOOD SPECIMENOrdering Facility: [facility] Address: [address] [place] [id number] Performed By: #### 2 4323-8 ####[facility] LABORATORYCLIA [id number] [place] [address] [place] Protein [Mass/Vol] 6.8 g/dL Normal 6.3-8.0 [facility] Comment on above: Order Comment: Aleshai men Type: BLOOD SPECIMENOrdering Facility: [facility] Address: [address] [place] [address] Performed By: #### 2 4323-8 ####[facility] LABORATORYCLIA [id number] [place] [id number] [place] OF [facility] Sodium [Moles/Vol] 135 mmol/L Low 136-144 [facility] Comment on above: Order Comment: Speci men Type: BLOOD SPECIMENOrdering Facility: [facility] Address: [address] [place] [address] Performed By: #### 2 4323-8 ####[facility] LABORATORYCLIA [id number] [place] [id number] [place] Urea nitrogen [Mass/Vol] 10 mg/dL Normal 9-24 [facility] Comment on above: Order Comment: Katie holman Type: BLOOD SPECIMENOrdering Facility: [facility] Address: [address] [place] [address] Performed By: #### 2 4323-8 ####[facility] LABORATORYCLIA [id number] [address] [place] HISTORY PHYSICALon HISTORY PHYSICAL Normal [facility] NURSING PROGon 01-13-2025 NURSING PROG Normal [facility] PT panel Coag (PPP)on 2024 INR Coag (PPP) [Relative time] 1.1 {INR} Normal 0.9-1.3 [facility] Comment on above: Order Comment: Katie holman Type: BLOOD SPECIMENOrdering Facility: [facility] Address: [address] [place] [address] Result Comment: Olivia min K Antagonist (VKA) Therapeutic Range: INR 2 to 3 (Target INR of 2.5)Note: For patients treated with VKA drugs, such as warfarin, the [place] [employer] 2012 Guideline recommends a therapeutic INR range of 2 to 3 (target INR of 2.5). This recommendation includes high-risk patients with antiphospholipid syndrome with previous arterial or venous thromboembolism, current-generation mechanical or bioprosthetic aortic heart valve replacement.Note: Patients with mechanical aortic valve replacement and additional risk factors for thromboembolic events (atrial fibrillation, previous thromboembolism, LV dysfunction, hypercoagulable conditions) or an older generation mechanical AVR (i.e., ball in-Cage) or any mechanical MVR should have a INR therapeutic range of 2.5 to 3.5 (target INR of 3).Willow GH, et al. Chest 2012, 141:7S-47SMaggie LAAMR, et al. [facility] 2017, 70: 252-289 Performed By: #### 3 4528-0 ####[facility] LABORATORYCLIA [id number] [address] [place] PT Coag (PPP) [Time] 11.8 s Normal 9.7-13.0 [facility] Comment on above: Order Comment: Speci men Type: BLOOD SPECIMENOrdering Facility: [facility] Address: [address] [place] [address] Performed By: #### 3 4528-0 ####[facility] LABORATORYCLIA [id number] [address] [place] TYPE AND SCREEN,30 DAYon ABO group Nom (Bld) O [facility] Blood group antibody screen Ql Negative [facility] Rh Nom (Bld) Positive [facility] ABO O Normal [facility] Comment on above: Order Comment: Speci men Type: BLOOD SPECIMENOrdering Facility: [facility] Address: [address] [place] [address] Performed By: #### T SCR30 ####[facility] BLOOD BANKCLIA [id number] [address] OF [facility] Rh Nom (Bld) Positive Normal [facility] Comment on above: Order Comment: Speci men Type: BLOOD SPECIMENOrdering Facility: [facility] Address: [address] [place] [address] Performed By: #### T SCR30 ####[facility] BLOOD BANKCLIA [id number] [address] [place] CNPNon 01-12-2025 CNPN Normal [facility] CNPNon 01-11-2025 CNPN Normal [facility] NURSING PROGon 01-11-2025 NURSING PROG Normal [facility] CBC W Auto Differential pane l (Bld)on 01-10-2025 Anisocytosis Ql (Bld) Present Normal [facility] Comment on above: Order Comment: Speci men Type: BLOOD SPECIMENOrdering Facility: [facility] Address: [address] [place] [address] Performed By: #### 5 7021-8 ####[facility] MILLTOWNCLIA [id number] [address] LABORATORYCLIA [id number] [place] [address] [place] Basophils (Bld) [#/Vol] 0.00 10*3/uL Normal <0.11 [facility] Comment on above: Order Comment: Speci men Type: BLOOD SPECIMENOrdering Facility: [facility] Address: [address] [place] [address] Performed By: #### 5 7021-8 ####[facility] GORDAWINLIA [id number] [address] LABORATORYCLIA [id number] [place] [address] [place] Basophils/100 WBC (Bld) 0.0 % Normal [facility] Comment on above: Order Comment: Speci men Type: BLOOD SPECIMENOrdering Facility: [facility] Address: [address] [place] [address] Performed By: #### 5 7021-8 ####[facility] [id number] [address] LABORATORYCLIA [id number] [place] [address] [place] Differential cell count method Nom (Bld) Manual Normal [facility] Comment on above: Order Comment: Speci men Type: BLOOD SPECIMENOrdering Facility: [facility] Address: [address] [place] [address] Performed By: #### 5 7021-8 ####[facility] MILLTOWNCLIA [id number] [address] LABORATORYCLIA [id number] [place] [address] [place] Eosinophils (Bld) [#/Vol] 0.00 10*3/uL Normal <0.46 [facility] Comment on above: Order Comment: Speci men Type: BLOOD SPECIMENOrdering Facility: [facility] Address: [address] [place] [address] Performed By: #### 5 7021-8 ####[facility] GORDAWCARLOSLIA [id number] [address] LABORATORYCLIA [id number] [place] [address] [place] Eosinophils/100 WBC (Bld) 0.0 % Normal [facility] Comment on above: Order Comment: Speci men Type: BLOOD SPECIMENOrdering Facility: [facility] Address: [address] [place] [address] Performed By: #### 5 7021-8 ####[facility] GORDAWNCLIA [id number] [address] LABORATORYCLIA [id number] [place] [address] [place] Erythrocyte distribution width (RBC) [Ratio] 19.8 % High 11.5-15.0 [facility] Comment on above: Order Comment: Speci men Type: BLOOD SPECIMENOrdering Facility: [facility] Address: [address] [place], [place] [address] Performed By: #### 5 7021-8 ####[facility] MILLTOWNCLIA [id number] [address] LABORATORYCLIA [id number] [place] [address] [place] Hematocrit (Bld) [Volume fraction] 32.9 % Low 39.0-51.0 [facility] Comment on above: Order Comment: Speci men Type: BLOOD SPECIMENOrdering Facility: [facility] Address: [address] [place] [address] Performed By: #### 5 7021-8 ####[facility] G[facility]DAWINLIA [id number] [address] LABORATORYIA [id number] [place] [address] [place] Hemoglobin (Bld) [Mass/Vol] 10.7 g/dL Low 13.0-17.0 [facility] Comment on above: Order Comment: Speci men Type: BLOOD SPECIMENOrdering Facility: [facility] Address: [address] [place] [address] Performed By: #### 5 7021-8 ####[facility] [id number] [address] LABORATORYIA [id number] [place] [address] [place] Lymphocytes (Bld) [#/Vol] 1.08 10*3/uL Normal 1.00-4.00 [facility] Comment on above: Order Comment: Speci men Type: BLOOD SPECIMENOrdering Facility: [facility] Address: [address] [place] [address] Performed By: #### 5 7021-8 ####[facility] GORDAWNCLIA [id number] [address] LABORATORYCLIA [id number] [place] [address] [place] Lymphocytes/100 WBC (Bld) 31.0 % Normal [facility] Comment on above: Order Comment: Speci men Type: BLOOD SPECIMENOrdering Facility: [facility] Address: [address] [place] [address] Performed By: #### 5 7021-8 ####[facility] NORRISGALWNCLIA [id number] [address] LABORATORYCLIA [id number] [place] [address] [place] [facility] MCH (RBC) [Entitic mass] 27.6 pg Normal 26.0-34.0 [facility] Comment on above: Order Comment: Speci men Type: BLOOD SPECIMENOrdering Facility: [facility] Address: [address] [place] [address] Performed By: #### 5 7021-8 ####[facility] [id number] [address] LABORATORYCLIA [id number] [place] [address] [place] MCHC (RBC) [Mass/Vol] 32.5 g/dL Normal 30.5-36.0 [facility] Comment on above: Order Comment: Speci men Type: BLOOD SPECIMENOrdering Facility: [facility] Address: [address] [place] [address] Performed By: #### 5 7021-8 ####[facility] [id number] [address] LABORATORYCLIA [id number] [place] [address] [place] MCV (RBC) [Entitic vol] 85.0 fL Normal 80.0-100.0 [facility] Comment on above: Order Comment: Speci men Type: BLOOD SPECIMENOrdering Facility: [facility] Address: [address] [place] [address] Performed By: #### 5 7021-8 ####[facility] [id number] [address] LABORATORYCLIA [id number] [place] [address] [place] Metamyelocytes/100 WBC (Bld) 1.0 % Normal [facility] Comment on above: Order Comment: Speci men Type: BLOOD SPECIMENOrdering Facility: [facility] Address: [address] [place] [address] Performed By: #### 5 7021-8 ####[facility] GORDAWNCLIA [id number] [address] LABORATORYCLIA [id number] [place] [address] [place] Monocytes (Bld) [#/Vol] 1.67 10*3/uL High <0.87 [facility] Comment on above: Order Comment: Speci men Type: BLOOD SPECIMENOrdering Facility: [facility] Address: [address] [place] [address] Performed By: #### 5 7021-8 ####[facility] GORDAWINLIA [id number] [address] LABORATORYCLIA [id number] [place] [address] [place] Monocytes/100 WBC (Bld) 48.0 % Normal [facility] Comment on above: Order Comment: Speci men Type: BLOOD SPECIMENOrdering Facility: [facility] Address: [address] [place] [address] Performed By: #### 5 7021-8 ####[facility] GORDAWNCLIA [id number] [address] LABORATORYCLIA [id number] [place] [address] [place] MYELO% 3.0 % Normal [facility] Comment on above: Order Comment: Speci men Type: BLOOD SPECIMENOrdering Facility: [facility] Address: [address] [place] [address] Performed By: #### 5 7021-8 ####[facility] NORRISWNCLIA [id number] [address] LABORATORYCLIA [id number] [place] [address] [place] Neutrophils (Bld) [#/Vol] 0.59 10*3/uL Low 1.45-7.50 [facility] Comment on above: Order Comment: Speci men Type: BLOOD SPECIMENOrdering Facility: [facility] Address: [address] [place] [address] Performed By: #### 5 7021-8 ####[facility] [id number] [address] LABORATORYCLIA [id number] [place] [address] [place] Neutrophils/100 WBC (Bld) 17.0 % Normal [facility] Comment on above: Order Comment: Speci men Type: BLOOD SPECIMENOrdering Facility: [facility] Address: [address] [place] [address] Performed By: #### 5 7021-8 ####[facility] CENTERLIA [id number] [address] LABORATORYCLIA [id number] [place] [address] [place] Nucleated RBC (Bld) [#/Vol] 0.07 10*3/uL High <0.01 [facility] Comment on above: Order Comment: Speci men Type: BLOOD SPECIMENOrdering Facility: [facility] Address: [address] [place] [address] Performed By: #### 5 7021-8 ####[facility] CLAY COUNTYNCLIA [id number] [address] LABORATORYCLIA [id number] [place] [address] [place] Nucleated RBC/100 WBC (Bld) [Ratio] 2.0 /100 WBC Normal [facility] Comment on above: Order Comment: Speci men Type: BLOOD SPECIMENOrdering Facility: [facility] Address: [address] [place] [address] Performed By: #### 5 7021-8 ####[facility] [id number] [address] LABORATORYCLIA [id number] [place] [address] [place] Ovalocytes LM Ql (Bld) Few Normal [facility] Comment on above: Order Comment: Speci men Type: BLOOD SPECIMENOrdering Facility: [facility] Address: [address] [place] [address] Performed By: #### 5 7021-8 ####[facility] [id number] [address] LABORATORYCLIA [id number] [place] [address] [place] Platelet mean volume (Bld) [Entitic vol] 9.7 fL Normal 9.0-12.7 [facility] Comment on above: Order Comment: Speci men Type: BLOOD SPECIMENOrdering Facility: [facility] Address: [address] [place] [address] Performed By: #### 5 7021-8 ####[facility] CENTERLIA [id number] [address] LABORATORYCLIA [id number] [place] [address] [place] Platelets (Bld) [#/Vol] 171 10*3/uL Normal 150-400 [facility] Comment on above: Order Comment: Speci men Type: BLOOD SPECIMENOrdering Facility: [facility] Address: [address] [place] [address] Performed By: #### 5 7021-8 ####[facility]OSPITALTOWNCLIA [id number] [address] LABORATORYCLIA [id number] [place] [address] [place] Platelets Estimate (Bld) [#/Vol] Adequate Normal [facility] Comment on above: Order Comment: Speci men Type: BLOOD SPECIMENOrdering Facility: [facility] Address: [address] [place] [address] Performed By: #### 5 7021-8 ####[facility] [id number] [address] LABORATORYCLIA [id number] [place] [address] [place] Polychromasia LM Ql (Bld) Slight Normal [facility] Comment on above: Order Comment: Speci men Type: BLOOD SPECIMENOrdering Facility: [facility] Address: [address] [place] [address] Performed By: #### 5 7021-8 ####[facility]ENTERLIA [id number] [address] LABORATORYCLIA [id number] [place] [address] [place] RBC (Bld) [#/Vol] 3.87 10*6/uL Low 4.20-6.00 [facility] Comment on above: Order Comment: Speci men Type: BLOOD SPECIMENOrdering Facility: [facility] Address: [address] [place] [address] Performed By: #### 5 7021-8 ####[facility] MILLTOWNCLIA [id number] [address] LABORATORYCLIA [id number] [place] [address] [place] [facility] RBC FRAGMENTS Few Abnormal None Seen [facility] Comment on above: Order Comment: Speci men Type: BLOOD SPECIMENOrdering Facility: [facility] Address: [address] [place] [address] Performed By: #### 5 7021-8 ####[facility] MILLWNCLIA [id number] [address] LABORATORYIA [id number] [place] [address] [place] RED CELL MORPH Reviewed: see result s of individual morphologies Normal [facility] Comment on above: Order Comment: Speci men Type: BLOOD SPECIMENOrdering Facility: [facility] Address: [address] [place] [address] Performed By: #### 5 7021-8 ####[facility]DAWNCLIA [id number] [address] LABORATORYCLIA [id number] [place] [address] [place] WBC (Bld) [#/Vol] 3.48 10*3/uL Low 3.70-11.00 [facility] Comment on above: Order Comment: Speci men Type: BLOOD SPECIMENOrdering Facility: [facility] Address: [address] [place], [place] [address] Performed By: #### 5 7021-8 ####[facility] MILLTOWNCLIA [id number] [address] LABORATORYCLIA [id number] [place] [address] [place] WBC Left Shift Ql (Bld) Present Normal [facility] Comment on above: Order Comment: Speci men Type: BLOOD SPECIMENOrdering Facility: [facility] Address: [address] [place] [address] Performed By: #### 5 7021-8 ####[facility] GORDAWNCLIA [id number] [address] LABORATORYCLIA [id number] [address] OF [facility] CNOVSPon 01-10-2025 CNOVSP Normal [facility] CNPNon 01-10-2025 CNPN Normal [facility] Comprehensive metabolic 2000 panelon 01-10-2025 Albumin [Mass/Vol] 3.2 g/dL Low 3.9-4.9 [facility] Comment on above: Order Comment: Speci men Type: BLOOD SPECIMENOrdering Facility: [facility] Address: [address] [place] [address] Performed By: #### 2 4323-8 ####[facility] CLAY COUNTYNCLIA [id number] [place] [address] [place] ALP [Catalytic activity/Vol] 96 U/L Normal 38-113 [facility] Comment on above: Order Comment: Speci men Type: BLOOD SPECIMENOrdering Facility: [facility] Address: [address] [place] [address] Performed By: #### 2 4323-8 ####[facility]DAWNCLIA [id number] [place] [address] [place] ALT [Catalytic activity/Vol] 87 U/L High 10-54 [facility] Comment on above: Order Comment: Speci men Type: BLOOD SPECIMENOrdering Facility: [facility] Address: [address] [place] [address] Performed By: #### 2 4323-8 ####[facility] CLAY COUNTYNCLIA [id number] [place] [id number] [place] Anion gap [Moles/Vol] 15 mmol/L Normal 8-15 [facility] Comment on above: Order Comment: Speci men Type: BLOOD SPECIMENOrdering Facility: [facility] Address: [address] [place] [address] Performed By: #### 2 4323-8 ####[facility] G[facility]DAWNCLIA [id number] [place] [address] [place] AST [Catalytic activity/Vol] 75 U/L High 14-40 [facility] Comment on above: Order Comment: Speci men Type: BLOOD SPECIMENOrdering Facility: [facility] Address: [address] [place] [address] Performed By: #### 2 4323-8 ####[facility] [id number] [place] [address] [place] Bilirubin [Mass/Vol] 0.7 mg/dL Normal 0.2-1.3 [facility] Comment on above: Order Comment: Speci men Type: BLOOD SPECIMENOrdering Facility: [facility] Address: [address] [place] [address] Performed By: #### 2 4323-8 ####[facility] CLAY COUNTYNCLIA [id number] [place] [address] [place] Calcium [Mass/Vol] 9.1 mg/dL Normal 8.5-10.2 [facility] Comment on above: Order Comment: Speci men Type: BLOOD SPECIMENOrdering Facility: [facility] Address: [address] [place] [address] Performed By: #### 2 4323-8 ####[facility] CLAY COUNTYNCLIA [id number] [place] [address] [place] Chloride [Moles/Vol] 97 mmol/L Low 98-107 [facility] Comment on above: Order Comment: Speci men Type: BLOOD SPECIMENOrdering Facility: [facility] Address: [address] [place] [address] Performed By: #### 2 4323-8 ####[facility]YNCMO[facility] [id number] [place] [address] [place] CO2 [Moles/Vol] 22 mmol/L Normal 22-30 [facility] Comment on above: Order Comment: Speci men Type: BLOOD SPECIMENOrdering Facility: [facility] Address: [address] [place] [address] Performed By: #### 2 4323-8 ####[facility] COUNTYNCMOAB [facility] [id number] [place] [address] [place] Creatinine [Mass/Vol] 0.52 mg/dL Low 0.73-1.22 [facility] Comment on above: Order Comment: Speci men Type: BLOOD SPECIMENOrdering Facility: [facility] Address: [address] [place] [address] Performed By: #### 2 4323-8 ####[facility] [id number] [address] OF [place] Creatinine and Glomerular filtration rate.predicted panel (S/P/Bld) 113 mL/min/1.73m??? Normal >=60 [facility] Comment on above: Order Comment: Speci men Type: BLOOD SPECIMENOrdering Facility: [facility] Address: [address] [place] [address] Result Comment: Lisa mated Glomerular Filtration Rate (eGFR) is calculated using the 2020 CKD-EPI creatinine equation. This equation utilizes serum creatinine, sex, and age as parameters. The creatinine assay has traceable calibration to isotope dilution-mass spectrometry. Refer to KDIGO guidelines for clinical interpretation. In patients with unstable renal function, e.g. those with acute kidney injury, the eGFR may not accurately reflect actual GFR. Performed By: #### 2 4323-8 ####[facility] GORDAWNCLI [id number] [place] [address] [place] Glucose [Mass/Vol] 107 mg/dL High 74-99 [facility] Comment on above: Order Comment: Speci men Type: BLOOD SPECIMENOrdering Facility: [facility] Address: [address] [place], [place] [address] Result Comment: The [place] [employer] (ADA) provides guidance for cutoff values for fasting glucose and random glucose. The ADA defines fasting as no caloric intake for at least 8 hours. Fasting plasma glucose results between 100 to 125 mg/dL indicate increased risk for diabetes (prediabetes).Fasting plasma glucose results greater than or equal to 126 mg/dL meet the criteria for diagnosis of diabetes. In the absence of unequivocal hyperglycemia, results should be confirmed by repeat testing. In a patient with classic symptoms of hyperglycemia or hyperglycemic crisis, random plasma glucose results greater than or equal to 200 mg/dL meet the criteria for diagnosis of diabetes.Reference: Standards of Medical Care in Diabetes 2016, [place] [employer]. Diabetes Care. 2016.39(Suppl 1). Performed By: #### 2 4323-8 ####[facility] GORDAWCARLOSLIA [id number] [place] [address] [place] Potassium [Moles/Vol] 3.3 mmol/L Low 3.7-5.1 [facility] Comment on above: Order Comment: Speci men Type: BLOOD SPECIMENOrdering Facility: [facility] Address: [address] [place], [place] [address] Performed By: #### 2 4323-8 ####[facility] GORDAWNCLIA [id number] [place] [address] [place] Protein [Mass/Vol] 6.4 g/dL Normal 6.3-8.0 [facility] Comment on above: Order Comment: Speci men Type: BLOOD SPECIMENOrdering Facility: [facility] Address: [address] [place], [place] [address] Performed By: #### 2 4323-8 ####[facility] CLAY COUNTYCARLOSLIA [id number] [place] [address] [place] Sodium [Moles/Vol] 134 mmol/L Low 136-144 [facility] Comment on above: Order Comment: Speci men Type: BLOOD SPECIMENOrdering Facility: [facility] Address: [address] [place] [address] Performed By: #### 2 4323-8 ####[facility] [id number] [place] [address] [place] Urea nitrogen [Mass/Vol] 10 mg/dL Normal 9- [facility] Comment on above: Order Comment: Speci men Type: BLOOD SPECIMENOrdering Facility: [facility] Address: [address] [place] [address] Performed By: #### 2 4323-8 ####[facility] [id number] [place] [address] [place] CNPNon 01-09-2025 CNPN Normal [facility] 12 Lead EKGon 01-05-2025 12 Lead EKG [facility] [address] [place] [address] 12 Lead EKG 01/05/25 1754 MR#: [id number] Acct: [id number] Name: BILL ESTRADA Rep #: [id number] : 1960 64 From: Daron Freeman MD Attending Dr: Status: DEP ER Ordering Dr: Ash Nelson DO Date: 5 Location: ED Sex: M C Admitted: Test Reason : Blood Pressure : */* mmHG Vent. Rate : 105 BPM Atrial Rate : 105 BPM P-R Int : 112 ms QRS Dur : 80 ms QT Int : 348 ms P-R-T Axes : 13 -11 134 degrees QTcB Int : 459 ms Sinus tachycardia Left ventricular hypertrophy with repolarization abnormality ( R in aVL ) Abnormal ECG Confirmed by Daron Freeman ([id number]), supervising editor news reel FREDDY LADD ([id number]) on 01/10/2025 11:32:53 AM Referred By: Ash Nelson Confirmed By: Daron Freeman 01/10/25 1132 Date Daron Freeman MD CC: Dr. Ash Nelson, DO; Dr. Josef Garcia MD Signed Normal [facility] Absolute lymphocyte countOrd ered By: Ash Nelson on 01-05-2025 Lymphocytes Auto (Unsp spec) [#/Vol] 0.86 10*3/uL 0.83-4.51 [facility] Absolute neutrophil countOrd ered By: Ash Nelson on 01-05-2025 Neutrophils (Bld) [#/Vol] 0.5 10*3/uL Low 2.0-7.7 [facility] Activated partial thrombopla stin time (aPTT) in platelet poor plasma by coagulation aOrdered By: Ash Nelson on 01-05-2025 aPTT Coag (PPP) [Time] 33.3 s 24.1-36.2 [facility] Anion gap in Serum or Plasma Ordered By: Ash Nelson on 01-05-2025 Anion gap [Moles/Vol] 11 mmol/L 5-15 [facility] Automated lymphocyte count a s percentage of total leukocytesOrdered By: Ash Nelson on 01-05-2025 Lymphocytes/100 WBC Auto (Unsp spec) 49.4 % High 19-41 [facility] BUN/creatinine ratioOrdered By: Ash Nelson on 01-05-2025 Urea nitrogen/Creatinine [Mass ratio] 17.4 mg/mg 10-20 [facility] Basophil percentageOrdered B y: Ash Nelson on 01-05-2025 Basophils/100 WBC (Bld) 1.1 % High 0-1 [facility] Bilirubin Test strip Ql (U)O rdered By: Ash Nelson on 01-05-2025 Bilirubin Ql (U) Negative Negative [facility] Bilirubin, totalOrdered By: Ash Nelson on 01-05-2025 Bilirubin [Mass/Vol] 1.30 mg/dL 0.00-1.30 [facility] Blood manual differential co mment interpretation (narrative result)Ordered By: Ash Nelson on 01-05-2025 Manual differential comment Talha (Bld) [Interp] SCANNED [facility] CNPNon 01-05-2025 CNPN Normal [facility] Carbon dioxide, total [Moles /volume] in Central venous bloodOrdered By: Ash Nelson on 01-05-2025 CO2 [Moles/Vol] 23.4 mmol/L 21.0-32.0 [facility] Chest PA and Lateralon 01-05 Chest PA and Lateral [facility] Imaging Services [address] [place], [place] [address] Chest PA and Lateral MR#: [id number] Acct: [id number] Name: BILL ESTRADA Rep #: [id number] : 1960 M 64 From: Lan Ga MD PCP: Dr. Josef Garcia MD Status: REG ER Study: Chest PA and Lateral Date of Exam: 01/05/25 Exam# [id number] Ordering Dr: Ash Nelson DO PROCEDURE: CHEST PA AND LATERAL 01/05/2025 REASON FOR EXAM: WEAKNESS, CHEMOTHERAPY TECHNIQUE: CHEST PA AND LATERAL COMPARISON: 11/19/2023. FINDINGS: The heart is enlarged. Mild bibasilar atelectasis. Vascular stent overlies the mediastinum. Left chest pacemaker. No acute osseous abnormalities. RAD/Chest PA and Lateral IMPRESSION: As above. Reading Location: [id number] CC: Dr. Ash Nelson DO; Dr. Josef Garcia MD Steward Dishwasher: Signed Normal [facility] Chloride assayOrdered By: Roderick Nelson on 01-05-2025 Chloride [Moles/Vol] 100 mmol/L 98-108 [facility] Comprehensive Metabolic Prof ilon 01-05-2025 Albumin [Mass/Vol] 3.5 g/dL Normal 3.4-4.8 [facility] Comment on above: Performed By: #### L 500.4050, L503.7505, L100.0100 #### [facility] [address] [place], [address] Albumin/Globulin [Mass ratio] 1.2 {ratio} Normal 0.9-2.4 [facility] Comment on above: Performed By: #### L 500.4050, L503.7505, L100.0100 #### [facility] [address] [place], [address] ALK PHOS 95 U/L Normal 40-129 [facility] Comment on above: Performed By: #### L 500.4050, L503.7505, L100.0100 #### [facility] [address] [place], [address] ALT [Catalytic activity/Vol] 143 U/L High <=46 [facility] Comment on above: Performed By: #### L 500.4050, L503.7505, L100.0100 #### [facility] [address] [place], [address] AST [Catalytic activity/Vol] 106 U/L High <=37 [facility] Comment on above: Performed By: #### L 500.4050, L503.7505, L100.0100 #### [facility] [address] [place], [address] Bilirubin [Mass/Vol] 1.30 mg/dL Normal 0.00-1.30 [facility] Comment on above: Performed By: #### L 500.4050, L503.7505, L100.0100 #### [facility] [address] [place], [address] BUN/CRE 17.4 RATIO Normal 10-20 [facility] Comment on above: Performed By: #### L 500.4050, L503.7505, L100.0100 #### [facility] [address] [place], [address] Calcium [Mass/Vol] 9.1 mg/dL Normal 7.6-11.0 [facility] Comment on above: Performed By: #### L 500.4050, L503.7505, L100.0100 #### [facility] [address] [place], [address] Chloride [Moles/Vol] 100 mmol/L Normal 98-108 [facility] Comment on above: Performed By: #### L 500.4050, L503.7505, L100.0100 #### [facility] [address] [place], [address] CO2 [Moles/Vol] 23.4 mmol/L Normal 21.0-32.0 [facility] Comment on above: Performed By: #### L 500.4050, L503.7505, L100.0100 #### [facility] [address] [place], [address] Creatinine [Mass/Vol] 0.53 mg/dL Low 0.70-1.20 [facility] Comment on above: Performed By: #### L 500.4050, L503.7505, L100.0100 #### [facility] [address] [place], [address] GAP 11 Normal 5-15 [facility] Comment on above: Performed By: #### L 500.4050, L503.7505, L100.0100 #### [facility] [address] [place], [address] GFR/1.73 sq M.predicted among non-blacks MDRD (S/P/Bld) [Vol rate/Area] 112 mL/min/{1.73_m2} Normal >60 [facility] Comment on above: Result Comment: mL/m in/1.73m2 CKD-EPI Creatinine Equation (2020) Performed By: #### L 500.4050, L503.7505, L100.0100 #### [facility] [address] [place], [address] Globulin (S) [Mass/Vol] 3.0 g/dL Normal 2.2-4.2 [facility] Comment on above: Performed By: #### L 500.4050, L503.7505, L100.0100 #### [facility] [address] [place], [address] Glucose [Mass/Vol] 97 mg/dL Normal 70-99 [facility] Comment on above: Performed By: #### L 500.4050, L503.7505, L100.0100 #### [facility] [address] [place], [address] Potassium [Moles/Vol] 3.6 mmol/L Normal 3.3-5.1 [facility] Comment on above: Performed By: #### L 500.4050, L503.7505, L100.0100 #### [facility] [address] [place], [address] Sodium [Moles/Vol] 134 mmol/L Normal 133-145 [facility] Comment on above: Performed By: #### L 500.4050, L503.7505, L100.0100 #### [facility] [address] [place], [address] T PROT 6.5 g/dL Normal 5.9-8.4 [facility] Comment on above: Performed By: #### L 500.4050, L503.7505, L100.0100 #### [facility] [address] [place], [address] Urea nitrogen [Mass/Vol] 9 mg/dL Normal 11-05 [facility] Comment on above: Performed By: #### L 500.4050, L503.7505, L100.0100 #### [facility] [address] [place], [address] Emergency Department Summary on 01-05-2025 Emergency Department Summary [facility] Medical Records Department [address] [place] [address] Emergency Department Summary 01/05/25 MR#: [id number] Acct: [id number] Name: BILL ESTRADA Rep #: [id number] : 1960 64 From: Ash Nelson DO PCP: Dr. Josef Garcia MD Status:DEP ER Location: ED HPI History of Present Illness Chief Complaint: Weakness Narrative Narrative: Chief complaint and HPI: Weakness. 64-year-old male with past medical history of esophageal cancer on chemotherapy presents for evaluation of weakness. Patient states in August he developed dysphagia in which he was diagnosed with esophageal cancer. He follows with [facility] oncology Dr. Obregon. He states he received his fourth round of chemotherapy 2 weeks ago. He states that he is currently done with chemotherapy at this time as he is scheduled to have esophageal surgery in January at [facility]. Patient states for the past 2 weeks he has had increasing weakness, decreased p.o. intake, and mouth sores. He denies any fever, chills, shortness of breath, chest pain, abdominal pain, nausea, vomiting, dysuria. States he has had some nasal congestion. no known sick contacts that he knows of. Taking antinausea medicine with minimal relief. States he called his oncologist today who told him to present to the emergency department. Review of systems: See HPI Medications: As listed on the chart Allergies: As listed on the chart PFSH: Per chart Vital signs: As listed on the chart. Reviewed. Physical exam: Gen: A O x3, NAD Head: Normocephalic, atraumatic Eyes: No sclera icterus, conjunctiva clear, PERRL, EOMI ENT: TMs clear BL, dry mucous membranes, posterior oropharynx unremarkable, uvula midline, tonsils not enlarged, no thrush, patient does have a few scattered mouth ulcers that are consistent with canker sore, adentulous Neck: Trachea midline, No JVD, Full ROM, No meningismus CV: Tachycardic, regular rhythm, no murmurs, no peripheral edema Resp: Lungs CTA BL, no w/r/c GI: Abd soft, non-distended, non-tender, no r/r/g Musc: Moves all extremities, no deformity Skin: Warm, dry, no rash Neuro: Alert, oriented, grossly intact, sensation intact Psych: Cooperative, appropriate mood and affect [facility] Medical History Acute right flank pain ( 03/26/22) Allergies Ambulates with cane Arthritis Back pain Back problem Blackout Bone fracture Cardiology follow-up encounter COPD (chronic obstructive pulmonary disease) CPAP (continuous positive airway pressure) dependence Dermatofibroma of chest Easy bruising Elective replacement indicated for pacemaker Gastric reflux GERD (gastroesophageal reflux disease) History of diverticulitis History of echocardiogram History of edema History of pacemaker History of pain when walking History of stress test Injury of head and neck Kidney stones Leg cramps Lumbar spondylosis Other acute postprocedural pain Pacemaker lead malfunction Presence of cardiac pacemaker Renal stones Restless leg syndrome Restless legs Shortness of breath on exertion Sick sinus syndrome Sinus arrest Sinus bradycardia Smoker Smoker Syncope Syncope and collapse Wears dentures Wears glasses Home Medications ???Medication ???Instructions ???Recorded ???Last Taken ???Type gabapentin 400 mg capsule 400 mg PO BID 06/26/22 Unknown His tory BMX 180 mL suspension 10 ml PO Q6H PRN pain #180 mL 12/18 04/13 Unknown Rx ergocalciferol (vitamin D2) 1,250 1,250 mcg PO QWEEK 01/05/2501/03 History mcg (50,000 unit) capsule levofloxacin 750 mg tablet 750 mg PO DAILY 5 days #5 tabs Unknown Rx morphine 10 mg/5 mL oral solution 5 mg (2.5 mL) PO Q6H PRN pain 5 0 01/05/25 Unknown Rx days #50 mL ondansetron HCl 8 mg tablet 8 mg PO Q8H PRN PRN nausea/vomitin g 01/05/25 01/05/25 History sucralfate 100 mg/mL oral 10 ml PO 4X/DAY 01/05/25 Unknown H istory suspension Allergy/AdvReac Type Severity Reaction Status Date / Time morphine AdvReac MAKES ME Verified 01/05/25 16:41 MAD Family History Mother Colon cancer Sister Breast cancer Sister Breast cancer Other CVA (cerebral vascular accident) Surgical History H/O cervical spine surgery H/O inguinal hernia repair History of esophagogastroduodenoscopy (EGD) History of heart surgery Hx of cholecystectomy Hx of colonoscopy Social History household members: spouse, children and other details: grandchildren housing: house current occupational status: unemployed pets and animals: No Smoking Status: Current every day smoker (more content not included)... Normal [facility] Eosinophil percentageOrdered By: Ash Nelson on 01-05-2025 Eosinophils/100 WBC (Bld) 0.0 % 0-5 [facility] Erythrocyte distribution wid th ratioOrdered By: Ash Nelson on 01-05-2025 Erythrocyte distribution width (RBC) [Ratio] 15.6 % High 11.6-14.6 [facility] Erythrocyte distribution wid th standard deviationOrdered By: Ash Luna on 01-05-2025 Erythrocyte distribution width (RBC) [Ratio] 46.3 fl High 35.1-43.9 [facility] Glomerular filtration rate ( GFR) estimation/1.73 sq m using serum, plasma, or whole bOrdered By: Ash Nelson on 01-05-2025 GFR/1.73 sq M.predicted among non-blacks MDRD (S/P/Bld) [Vol rate/Area] 112 mL/min/{1.73_m2} >60 [facility] Comment on above: mL/min/1.73m2 CKD-EP I Creatinine Equation (2020) Hematocrit Auto (Bld) [Volum e fraction]Ordered By: Ash Nelson on 06-19-2025 Hematocrit (Bld) [Volume fraction] 29.6 % Low 40-54 [facility] Hemoglobin measurementOrdere d By: Ash Nelson on 01-05-2025 Hemoglobin (Bld) [Mass/Vol] 9.6 g/dL Low 13.0-16.5 [facility] Hyaline casts LM.LPF (Urine sed) [#/Area]Ordered By: Ashnaima Nelson on 01-05-2025 Hyaline casts (Urine sed) [#/Area] 0 /[LPF] 0-5 [facility] Immature granulocytes/100 WB C Auto (Bld)Ordered By: [facility] RehabilitationJg on 01-05-2025 Immature granulocytes/100 WBC (Bld) 0.600 % 0.0-0.9 [facility] Comment on above: IG% - Immature Granu locytes (promyelocytes, myelocytes and metamyelocytes) > 1% indicates that a LEFT SHIFT is Present. Influenza virus A and B and SARS-CoV-2 (COVID-19) and Respiratory syncytial virus RNAOrdered By: Ash Nelson on 01-05-2025 SARS-CoV-2 (COVID-19) RNA JOHNNY+probe Ql (Unsp spec) [facility] International normalized rat io (INR) calculationOrdered By: Ash Jg on 01-05-2025 INR Coag (Bld) [Relative time] 1.1 {INR} [facility] Ketones Test strip Ql (U)Ord ered By: Ashnaima Nelson on 01-05-2025 Ketones Ql (U) 15 mg/dl High Negative [facility] L499.0042on 01-05-2025 Trop T High Sen Normal <=22 [facility] Comment on above: Result Comment: Justo almaraz via OM: Ordered Performed By: #### L 499.0042 #### [facility] Laboratory [address] [place], [address] L501.4021on 01-05-2025 Trop T High Sen 8 ng/L Normal <=22 [facility] Comment on above: Performed By: #### L 500.4050, L503.7505, L100.0100 #### [facility] [address] [place], [address] Laboratory - Chemistry and C hemistry - challengeOrdered By: Ash Nelson on 01-05-2025 AST [Catalytic activity/Vol] 106 U/L High <38 [facility] Lactic Acidon 01-05-2025 Lactate [Moles/Vol] mmol/L Normal 0.0-2.0 [facility] Comment on above: Order Comment: Y Performed By: #### L 500.4050, L503.7505, L100.0100 #### [facility] [address] [place], [address] Lactic acid measurementOrder ed By: Ash Nelson on 01-05-2025 Lactate [Moles/Vol] mmol/L 0.0-2.0 [facility] M100.678on 01-05-2025 M100.678 SARS-CoV-2 (COVID 19 ) Negative INFLUENZA A Negative INFLUENZA B Negative RSV PCR Negative Normal [facility] Comment on above: Performed By: #### L 500.4050, L503.7505, L100.0100 #### [facility] [address] [place], [address] MCV (mean corpuscular volume ) determinationOrdered By: Ash Nelson on 01-05-2025 MCV (RBC) [Entitic vol] 83.4 fL 80-94 [facility] Magnesiumon 01-05-2025 Magnesium [Mass/Vol] 1.7 mg/dL Normal 1.5-2.2 [facility] Comment on above: Performed By: #### L 500.4050, L503.7505, L100.0100 #### [facility] [address] [place], [address] Magnesium measurement (mass/ volume)Ordered By: Ash Nelson on 01-05-2025 Magnesium (Unsp spec) [Mass/Vol] 1.7 mg/dL 1.5-2.2 [facility] Mean corpuscular hemoglobin (MCH) determinationOrdered By: Ash Nelson on 01-05-2025 MCH (RBC) [Entitic mass] 27.0 pg 27.0-32.0 [facility] Mean corpuscular hemoglobin concentration (MCHC) determinationOrdered By: Ash Nelson on 01-05-2025 MCHC (RBC) [Mass/Vol] 32.4 g/dL 32-36 [facility] Mean platelet volume determi nationOrdered By: Ash Nelson on 01-05-2025 Platelet mean volume (Bld) [Entitic vol] 10.9 fL 6.2-12.0 [facility] Microscopic analysis of urin e for red blood cells (RBC)Ordered By: Ash Nelson on 01-05-2025 Microscopic analysis of urine for red blood cells (RBC) 0-5 SEEN /hpf 0-5 [facility] Monocyte percentageOrdered B y: Ash Nelson on 01-05-2025 Monocytes/100 WBC (Bld) 19.0 % High 0-10 [facility] Mucus LM Ql (Urine sed)Order ed By: Ash Nelson on 01-05-2025 Mucus Ql (Urine sed) 3+ /hpf [facility] Neutrophil percentageOrdered By: Ash Nelson on 01-05-2025 Neutrophils/100 WBC (Bld) 29.9 % Low 47-70 [facility] Nucleated red blood cell per centageOrdered By: Ashnaima Nelson on 01-05-2025 Nucleated RBC/100 WBC (Bld) [Ratio] 0 % 0-5 [facility] Partial Thromboplast Timeon 01-05-2025 aPTT Coag (Bld) [Time] 33.3 s Normal 24.1-36.2 [facility] Comment on above: Performed By: #### L 500.7440, L503.7505, L100.0100 #### [facility] [address] [place], [address] Platelet countOrdered By: Roderick Nelson on 01-05-2025 Platelets (Bld) [#/Vol] 107 10*3/uL Low 150-450 [facility] Potassium measurement (mass/ volume)Ordered By: Ash Nelson on 01-05-2025 Potassium (Unsp spec) [Mass/Vol] 3.6 mmol/L 3.3-5.1 [facility] Protein Test strip Ql (U)Ord ered By: Ash Nelson on 01-05-2025 Protein Ql (U) 30 mg/dl High Negative [facility] Prothrombin Time w/INRon INR Coag (PPP) [Relative time] 1.1 {INR} Normal [facility] Comment on above: Performed By: #### L 500.4050, L503.7505, L100.0100 #### [facility] [address] [place], [address] PT Coag (PPP) [Time] 14.2 s Normal 11.7-14.9 [facility] Comment on above: Performed By: #### L 500.4050, L503.7505, L100.0100 #### [facility] [address] [place], [address] Prothrombin timeOrdered By: Ash Nelson on 01-05-2025 PT Coag (PPP) [Time] 14.2 s 11.7-14.9 [facility] RBC Auto (Bld) [#/Vol]Ordere d By: Ash Nelson on 01-05-2025 RBC (Bld) [#/Vol] 3.55 10*6/uL Low 4.6-6.2 [facility] Review by pathologistOrdered By: Ash Nelson on 01-05-2025 Pathologist review Talha (Unsp spec) [Interp] November foll [facility] Pathologist review Talha (Unsp spec) [Interp] Reviewed [facility] Comment on above: Previous reported re sult: Malou gaytan Edited by: JESUS on 01/26/25:1149SEE REPORT IN PATIENT'S EMR AMENDED REPORT 01/26/25 1149 PATH REV previously reported as: Malou gaytan Serum creatinine measurement (mass/volume)Ordered By: Ash Nelson on 01-05-2025 Creatinine [Mass/Vol] 0.53 mg/dL Low 0.70-1.20 [facility] Serum globulin measurementOr dered By: Ash Nelson on 01-05-2025 Globulin (S) [Mass/Vol] 3.0 g/dL 2.2-4.2 [facility] Serum glucose measurement (m ass/volume)Ordered By: Ash Nelson on 01-05-2025 Glucose [Mass/Vol] 97 mg/dL 70-99 [facility] Serum or plasma alanine menchaca otransferase (ALT) measurementOrdered By: Ash Nelson on 01-05-2025 ALT [Catalytic activity/Vol] 143 U/L High <47 [facility] Serum or plasma albumin devin urement (mass/volume)Ordered By: Ash Luna on 01-05-2025 Albumin [Mass/Vol] 3.5 g/dL 3.4-4.8 [facility] Serum or plasma albumin/glob ulin mass ratioOrdered By: Ash Nelson on 01-05-2025 Albumin/Globulin [Mass ratio] 1.2 {ratio} 0.9-2.4 [facility] Serum or plasma alkaline brice sphatase measurementOrdered By: Ash Nelson on 01-05-2025 ALP [Catalytic activity/Vol] 95 U/L 40-129 [facility] Serum or plasma calcium devin urement (mass/volume)Ordered By: Ash Luna on 01-05-2025 Calcium [Mass/Vol] 9.1 mg/dL 7.6-11.0 [facility] Serum or plasma urea nitroge n measurement (mass/volume)Ordered By: Ash Nelson on 01-05-2025 Urea nitrogen [Mass/Vol] 9 mg/dL 4-19 [facility] Sodium levelOrdered By: Wilder Nelson on 01-05-2025 Sodium [Moles/Vol] 134 mmol/L 133-145 [facility] Squamous epithelial cells de tection in urine sediment by light microscopyOrdered By: Ash Nelson on 01-05-2025 Epithelial cells.squamous LM Ql (Urine sed) 25-50 SEEN /hpf 0-5 [facility] Total proteinOrdered By: Thierry Nelson on 01-05-2025 Protein [Mass/Vol] 6.5 g/dL 5.9-8.4 [facility] Troponin T.cardiac [Mass/vol ume] in Serum or Plasma by High sensitivity methodOrdered By: Ash Nelson on 01-05-2025 Troponin T.cardiac High sensitivity method [Mass/Vol] 8 ng/L <22 [facility] Urinalysis, Completeon 01-05 BACTERIA 2+ /hpf Normal None Seen [facility] Comment on above: Order Comment: CLEAN CATCH Performed By: #### L 400.0001 #### [facility] [address] [place], [place], [id number] CAST,HYALINE 0-5 SEEN Normal 0-5 [facility] Comment on above: Order Comment: CLEAN CATCH Performed By: #### L 400.0001 #### [facility] [address] [place], [place], [id number] Mucus Ql (Urine sed) 3+ /hpf Normal [facility] Comment on above: Order Comment: CLEAN CATCH Performed By: #### L 400.0001 #### [facility] [address] [place], [place], [id number] EPI,SQUAMOUS 25-50 SEEN Normal 0-5 [facility] Comment on above: Order Comment: CLEAN CATCH Performed By: #### L 400.0001 #### [facility] [address] [place], [address] RBC 0-5 SEEN Normal 0-5 [facility] Comment on above: Order Comment: CLEAN CATCH Performed By: #### L 400.0001 #### [facility] [address] [place], [address] WBC 0-5 SEEN Normal 0-5 [facility] Comment on above: Order Comment: CLEAN CATCH Performed By: #### L 400.0001 #### [facility] [address] [place], [address] BILIRUBIN URINE Negative Normal Negative [facility] Comment on above: Order Comment: CLEAN CATCH Performed By: #### L 400.0001 #### [facility] [address] [place], [address] GLUCOSE, UR Normal Normal Normal [facility] Comment on above: Order Comment: CLEAN CATCH Performed By: #### L 400.0001 #### [facility] [address] [place], [address] KETONE UR 15 mg/dl Abnormal Negative [facility] Comment on above: Order Comment: CLEAN CATCH Performed By: #### L 400.0001 #### [facility] [address] [place], [address] LEUK ESTERASE Negative Normal Negative [facility] Comment on above: Order Comment: CLEAN CATCH Performed By: #### L 400.0001 #### [facility] [address] [place], [address] OCCULT BLOOD-UR 10 /ul Abnormal Negative [facility] Comment on above: Order Comment: CLEAN CATCH Performed By: #### L 400.0001 #### [facility] [address] [place], [address] pH UR 6.0 Normal 5.0 - 8.0 [facility] Comment on above: Order Comment: CLEAN CATCH Performed By: #### L 400.0001 #### [facility] [address] [place], [address] PROT DIPSTX 30 mg/dl Abnormal Negative [facility] Comment on above: Order Comment: CLEAN CATCH Performed By: #### L 400.0001 #### [facility] [address] [place], [address] SP.GR. DIPSTX 1.025 Normal 1.002-1.03 0 [facility] Comment on above: Order Comment: CLEAN CATCH Performed By: #### L 400.0001 #### [facility] [address] [place], [address] UROBILI Normal Normal Normal [facility] Comment on above: Order Comment: CLEAN CATCH Performed By: #### L 400.0001 #### [facility] [address] [place], [address] Urine clarityOrdered By: Thierry Nelson on 01-05-2025 Clarity (U) Clear Normal Clear [facility] Comment on above: Order Comment: CLEAN CATCH Performed By: #### L 400.0001 #### [facility] [address] [place], [place], [address] Urine color determinationOrd ered By: Ash Nelson on 01-05-2025 Color (U) Yellow Normal Yellow [facility] Comment on above: Order Comment: CLEAN CATCH Performed By: #### L 400.0001 #### [facility] [address] [place], [address] Urine glucose detectionOrder ed By: Ash Nelson on 01-05-2025 Glucose Ql (U) Normal mg/dl Normal [facility] Urine leukocyte esterase det ection by dipstickOrdered By: Ash Nelson on 01-05-2025 Leukocyte esterase Test strip Ql (U) Negative Negative [facility] Urine nitrite test by dipsti ckOrdered By: Ash Nelson on 01-05-2025 Nitrite Ql (U) Negative Normal Negative [facility] Comment on above: Order Comment: CLEAN CATCH Performed By: #### L 400.0001 #### [facility] [place], [address] Urine pHOrdered By: Ash Gregorio on 01-05-2025 pH (U) 6.0 [pH] 5.0 - 8.0 [facility] Urine sediment bacteria coun t by microscopy (number/high power field)Ordered By: Ash Nelson on 01-05-2025 Bacteria LM.HPF (Urine sed) [#/Area] 2 /[HPF] None Seen [facility] Urine specific gravity measu rementOrdered By: Ash Nelson on 01-05-2025 Specific gravity (U) [Rel density] 1.025 1.002-1.03 0 [facility] Urine urobilinogen measureme ntOrdered By: Ash Nelson on 01-05-2025 Urobilinogen Ql (U) Normal mg/dl Normal [facility] White blood cell (WBC) count Ordered By: Ash Nelson on 01-05-2025 WBC (Bld) [#/Vol] 1.7 10*3/uL Low 4.4-11.0 [facility] White blood cell countOrdere d By: Ash Nelson on 01-05-2025 White blood cell count 0-5 SEEN /hpf 0-5 [facility] LUNG DIFFUSION CAPACITY (SANDI O)on 01-04-2025 LUNG DIFFUSION CAPACITY (DLCO) Normal [facility] LUNG VOLUMESon 01-04-2025 LUNG VOLUMES Normal [facility] SPIROMETRY WITH DILATOR IF O BSTRUCTEDon 01-04-2025 SPIROMETRY WITH DILATOR IF OBSTRUCTED Normal [facility] CNPNon 01-02-2025 CNPN Normal [facility] CNCOon 12-30-2024 CNCO Letter Text Normal [facility] CNPNon 12-30-2024 [facility]-REACTIVE PROTEINon 025 CRP [Mass/Vol] 2.5 mg/dL High NINF - 0.9 mg/dL [facility] CBC panel Auto (Bld)on 12-29 Erythrocyte distribution width (RBC) [Ratio] 15.7 % High 11.5 - 15.0 % [facility] Hematocrit (Bld) [Volume fraction] 32.5 % Low 39.0 - 51.0 % [facility] Hemoglobin (Bld) [Mass/Vol] 10.4 g/dL Low 13.0 - 17.0 g/dL [facility] Interpretation and review of laboratory results Abnormal [facility] MCH (RBC) [Entitic mass] 27.4 pg 26.0 - 34.0 pg [facility] MCHC (RBC) [Mass/Vol] 32 g/dL 30.5 - 36.0 g/dL [facility] MCV (RBC) [Entitic vol] 85.5 fL 80.0 - 100.0 fL [facility] Nucleated RBC (Bld) [#/Vol] NINF [facility] Platelet mean volume (Bld) [Entitic vol] 9.8 fL 9.0 - 12.7 fL [facility] Platelets (Bld) [#/Vol] 192 10*3/uL [facility] RBC (Bld) [#/Vol] 3.8 10*6/uL Low 4.20 - 6.00 m/uL [facility] WBC (Bld) [#/Vol] 8.78 10*3/uL [facility] Erythrocyte distribution width (RBC) [Ratio] 15.7 % High 11.5-15.0 [facility] Comment on above: Order Comment: Speci men Type: BLOOD SPECIMENOrdering Facility: [facility] Address: [address] [place] [address] Performed By: #### 5 8410-2 ####[facility] [id number] [address] [place] Hematocrit (Bld) [Volume fraction] 32.5 % Low 39.0-51.0 [facility] Comment on above: Order Comment: Speci men Type: BLOOD SPECIMENOrdering Facility: [facility] Address: [address] [place] [address] Performed By: #### 5 8410-2 ####[facility] NORRIS[facility]CL[facility] [id number] [place] [address] [place] Hemoglobin (Bld) [Mass/Vol] 10.4 g/dL Low 13.0-17.0 [facility] Comment on above: Order Comment: Speci men Type: BLOOD SPECIMENOrdering Facility: [facility] Address: [address] [place] [address] Performed By: #### 5 8410-2 ####[facility] COUNTYNCL[facility] [id number] [place] [address] [place] MCH (RBC) [Entitic mass] 27.4 pg Normal 26.0-34.0 [facility] Comment on above: Order Comment: Speci men Type: BLOOD SPECIMENOrdering Facility: [facility] Address: [address] [place] [address] Performed By: #### 5 8410-2 ####[facility] COUNTYNCA [id number] [place] [address] [place] MCHC (RBC) [Mass/Vol] 32.0 g/dL Normal 30.5-36.0 [facility] Comment on above: Order Comment: Speci men Type: BLOOD SPECIMENOrdering Facility: [facility] Address: [address] [place] [address] Performed By: #### 5 8410-2 ####[facility] [id number] [place] [address] [place] MCV (RBC) [Entitic vol] 85.5 fL Normal 80.0-100.0 [facility] Comment on above: Order Comment: Speci men Type: BLOOD SPECIMENOrdering Facility: [facility] Address: [address] [place] [address] Performed By: #### 5 8410-2 ####[facility]YNCM[facility] [id number] [place] [address] [place] Nucleated RBC (Bld) [#/Vol] 10*3/uL Normal <0.01 [facility] Comment on above: Order Comment: Speci men Type: BLOOD SPECIMENOrdering Facility: [facility] Address: [address] [place] [address] Performed By: #### 5 8410-2 ####[facility] CLAY COUNTYCARLOSSebastian [id number] [place] [address] [place] Platelet mean volume (Bld) [Entitic vol] 9.8 fL Normal 9.0-12.7 [facility] Comment on above: Order Comment: Speci men Type: BLOOD SPECIMENOrdering Facility: [facility] Address: [address] [place] [address] Performed By: #### 5 8410-2 ####[facility] [id number] [place] [address] [place] Platelets (Bld) [#/Vol] 192 10*3/uL Normal 150-400 [facility] Comment on above: Order Comment: Speci men Type: BLOOD SPECIMENOrdering Facility: [facility] Address: [address] [place] [address] Performed By: #### 5 8410-2 ####[facility] [id number] [place] [address] [place] RBC (Bld) [#/Vol] 3.80 10*6/uL Low 4.20-6.00 [facility] Comment on above: Order Comment: Speci men Type: BLOOD SPECIMENOrdering Facility: [facility] Address: [address] [place] [address] Performed By: #### 5 8410-2 ####[facility] COUNTYNCLIA [id number] [place] [address] [place] WBC (Bld) [#/Vol] 8.78 10*3/uL Normal 3.70-11.00 [facility] Comment on above: Order Comment: Speci men Type: BLOOD SPECIMENOrdering Facility: [facility] Address: [address] [place] [address] Performed By: #### 5 8410-2 ####[facility] [facility] [id number] [place] [address] [place] CNPNon 12-29-2024 CNPN Normal [facility] CRP SerPl-mCncon 12-29-2024 CRP [Mass/Vol] 2.5 mg/dL High <0.9 [facility] Comment on above: Order Comment: Speci men Type: BLOOD SPECIMENOrdering Facility: [facility] Address: [address] [place] [address] Performed By: #### 5 0190-8, 2275-10, 1987-11 ####[facility] LABCLIA [id number] [place] [address] [place] FERRITINon 12-29-2024 Ferritin [Mass/Vol] 72.6 ng/mL 30.3 - 565.7 ng/mL [facility] Ferritin SerPl-mCncon 2024 Ferritin [Mass/Vol] 72.6 ng/mL Normal 30.3-565.7 [facility] Comment on above: Order Comment: Speci men Type: BLOOD SPECIMENOrdering Facility: [facility] Address: [address] [place] [address] Performed By: #### 5 0190-8, 2275-10, 1987-11 ####[facility] LABCLIA [id number] [place] [address] [place] Ferritin [Mass/Vol]on 2024 Interpretation and review of laboratory results Normal [facility] Iron and Iron binding capaci ty panelon 12-29-2024 Iron [Mass/Vol] 35 ug/dL Low 41 - 186 ug/dL [facility] Iron binding capacity [Mass/Vol] 352 ug/dL 232 - 386 ug/dL [facility] Iron/TIBC [Molar ratio] 9.9 % Low 15.0 - 57.0 % [facility] Iron [Mass/Vol] 35 ug/dL Low 41-186 [facility] Comment on above: Order Comment: Speci men Type: BLOOD SPECIMENOrdering Facility: [facility] Address: [address] [place] [address] Performed By: #### 5 0190-8, 2275-10, 1987-11 ####[facility] LABIA [id number] [place] [address] [place] Iron binding capacity [Mass/Vol] 352 ug/dL Normal 232-386 [facility] Comment on above: Order Comment: Speci men Type: BLOOD SPECIMENOrdering Facility: [facility] Address: [address] [place] [address] Performed By: #### 5 019-8, 2275-10, 1987-11 ####[facility] LABIA [id number] [place] [address] [place] Iron/TIBC [Molar ratio] 9.9 % Low 15.0-57.0 [facility] Comment on above: Order Comment: Speci men Type: BLOOD SPECIMENOrdering Facility: [facility] Address: [address] [place] [address] Performed By: #### 5 0190-8, 2275-10, 1987-11 ####[facility] LABIA [id number] [place] [id number] [place] No Panel Informationon 12-29 Interpretation and review of laboratory results Abnormal [facility] CNOVon 12-28-2024 CNOV Normal [facility] CNOV Normal [facility] CBC W Auto Differential pane l (Bld)on 12-27-2024 Anisocytosis Ql (Bld) Present Normal [facility] Comment on above: Order Comment: Speci men Type: BLOOD SPECIMENOrdering Facility: [facility] Address: [address] [place] [address] Performed By: #### 5 7021-8 ####[facility] MILLTOWNCLIA [id number] [address] LABORATORYCLIA [id number] [place] [address] [place] Basophils (Bld) [#/Vol] 0.00 10*3/uL Normal <0.11 [facility] Comment on above: Order Comment: Speci men Type: BLOOD SPECIMENOrdering Facility: [facility] Address: [address] [place] [address] Performed By: #### 5 7021-8 ####[facility] [id number] [address] LABORATORYCLIA [id number] [place] [address] [place] Basophils/100 WBC (Bld) 0.0 % Normal [facility] Comment on above: Order Comment: Speci men Type: BLOOD SPECIMENOrdering Facility: [facility] Address: [address] [place] [address] Performed By: #### 5 7021-8 ####[facility]CL[facility] [id number] [address] LABORATORYCLIA [id number] [place] [address] [place] Dacrocytes LM Ql (Bld) Few Normal [facility] Comment on above: Order Comment: Speci men Type: BLOOD SPECIMENOrdering Facility: [facility] Address: [facility] [place] [address] Performed By: #### 5 7021-8 ####[facility] MILLTOWNCLIA [id number] [address] LABORATORYCLIA [id number] [place] [address] [place] Differential cell count method Nom (Bld) Manual Normal [facility] Comment on above: Order Comment: Speci men Type: BLOOD SPECIMENOrdering Facility: [facility] Address: [address] [place] [address] Performed By: #### 5 7021-8 ####[facility] [id number] [address] LABORATORYCLIA [id number] [place] [address] [place] Eosinophils (Bld) [#/Vol] 0.00 10*3/uL Normal <0.46 [facility] Comment on above: Order Comment: Speci men Type: BLOOD SPECIMENOrdering Facility: [facility] Address: [address] [place] [address] Performed By: #### 5 7021-8 ####[facility] [id number] [address] LABORATORYCLIA [id number] [place] [address] [place] Eosinophils/100 WBC (Bld) 0.0 % Normal [facility] Comment on above: Order Comment: Speci men Type: BLOOD SPECIMENOrdering Facility: [facility] Address: [address] [place] [address] Performed By: #### 5 7021-8 ####[facility]ENTER[facility]IA [id number] [address] LABORATORYCLIA [id number] [place] [address] [place] Erythrocyte distribution width (RBC) [Ratio] 15.3 % High 11.5-15.0 [facility] Comment on above: Order Comment: Speci men Type: BLOOD SPECIMENOrdering Facility: [facility] Address: [address] [place] [address] Performed By: #### 5 7021-8 ####[facility] MILLTOWNCLIA [id number] [address] LABORATORYCLIA [id number] [address] OF [facility] Hematocrit (Bld) [Volume fraction] 34.3 % Low 39.0-51.0 [facility] Comment on above: Order Comment: Speci men Type: BLOOD SPECIMENOrdering Facility: [facility] Address: [address] [place] [address] Performed By: #### 5 7021-8 ####[facility] [id number] [address] LABORATORYCLIA [id number] [place] [address] [place] Hemoglobin (Bld) [Mass/Vol] 11.1 g/dL Low 13.0-17.0 [facility] Comment on above: Order Comment: Speci men Type: BLOOD SPECIMENOrdering Facility: [facility] Address: [address] [place] [address] Performed By: #### 5 7021-8 ####[facility] CLAY COUNTYNCLIA [id number] [address] LABORATORYCLIA [id number] [place] [address] [place] Lymphocytes (Bld) [#/Vol] 2.22 10*3/uL Normal 1.00-4.00 [facility] Comment on above: Order Comment: Speci men Type: BLOOD SPECIMENOrdering Facility: [facility] Address: [address] [place] [address] Performed By: #### 5 7021-8 ####[facility] [id number] [address] LABORATORYCLIA [id number] [place] [address] [place] Lymphocytes/100 WBC (Bld) 19.0 % Normal [facility] Comment on above: Order Comment: Speci men Type: BLOOD SPECIMENOrdering Facility: [facility] Address: [address] [place] [address] Performed By: #### 5 7021-8 ####[facility] MILLTOWNCLIA [id number] [address] LABORATORYCLIA [id number] [place] [address] [place] MCH (RBC) [Entitic mass] 27.5 pg Normal 26.0-34.0 [facility] Comment on above: Order Comment: Speci men Type: BLOOD SPECIMENOrdering Facility: [facility] Address: [address] [place] [address] Performed By: #### 5 7021-8 ####[facility] MILLWINLIA [id number] [address] LABORATORYCLIA [id number] [place] [address] [place] MCHC (RBC) [Mass/Vol] 32.4 g/dL Normal 30.5-36.0 [facility] Comment on above: Order Comment: Speci men Type: BLOOD SPECIMENOrdering Facility: [facility] Address: [address] [place] [address] Performed By: #### 5 7021-8 ####[facility] MILLWNCLIA [id number] [address] LABORATORYCLIA [id number] [address] [place] MCV (RBC) [Entitic vol] 84.9 fL Normal 80.0-100.0 [facility] Comment on above: Order Comment: Speci men Type: BLOOD SPECIMENOrdering Facility: [facility] Address: [address] [place] [address] Performed By: #### 5 7021-8 ####[facility] NORRISTOWNCLIA [id number] [address] LABORATORYCLIA [id number] [place] [address] [place] Monocytes (Bld) [#/Vol] 1.63 10*3/uL High <0.87 [facility] Comment on above: Order Comment: Speci men Type: BLOOD SPECIMENOrdering Facility: [facility] Address: [address] [place] [address] Performed By: #### 5 7021-8 ####[facility] CLAY COUNTYNCLIA [id number] [address] LABORATORYCLIA [id number] [place] [address] [place] Monocytes/100 WBC (Bld) 14.0 % Normal [facility] Comment on above: Order Comment: Speci men Type: BLOOD SPECIMENOrdering Facility: [facility] Address: [address] [place] [address] Performed By: #### 5 7021-8 ####[facility] NORRISTOWNCLIA [id number] [address] LABORATORYCLIA [id number] [place] [address] [place] MYELO% 3.0 % Normal [facility] Comment on above: Order Comment: Speci men Type: BLOOD SPECIMENOrdering Facility: [facility] Address: [address] [place] [address] Performed By: #### 5 7021-8 ####[facility] MILLTOWNCLIA [id number] [address] LABORATORYCLIA [id number] [place] [address] [place] Neutrophils (Bld) [#/Vol] 7.46 10*3/uL Normal 1.45-7.50 [facility] Comment on above: Order Comment: Speci men Type: BLOOD SPECIMENOrdering Facility: [facility] Address: [address] [place] [address] Performed By: #### 5 7021-8 ####[facility] MILLTOWNCLIA [id number] [address] LABORATORYCLIA [id number] [place] [address] [place] Neutrophils/100 WBC (Bld) 64.0 % Normal [facility] Comment on above: Order Comment: Speci men Type: BLOOD SPECIMENOrdering Facility: [facility] Address: [address] [place] [address] Performed By: #### 5 7021-8 ####[facility] MILLTOWNCLIA [id number] [address] LABORATORYCLIA [id number] [place] [address] [place] Nucleated RBC (Bld) [#/Vol] 10*3/uL Normal <0.01 [facility] Comment on above: Order Comment: Speci men Type: BLOOD SPECIMENOrdering Facility: [facility] Address: [address] [place] [address] Performed By: #### 5 7021-8 ####[facility]CL[facility] [id number] [address] LABORATORYCLIA [id number] [place] [address] [place] Nucleated RBC/100 WBC (Bld) [Ratio] 0.0 /100 WBC Normal [facility] Comment on above: Order Comment: Speci men Type: BLOOD SPECIMENOrdering Facility: [facility] Address: [address] [place] [address] Performed By: #### 5 7021-8 ####[facility] MILLTOWNCLIA [id number] [address] LABORATORYCLIA [id number] [place] [address] [place] Ovalocytes LM Ql (Bld) Few Normal [facility] Comment on above: Order Comment: Speci men Type: BLOOD SPECIMENOrdering Facility: [facility] Address: [address] [place] [address] Performed By: #### 5 7021-8 ####[facility]CL[facility] [id number] [address] LABORATORYCLIA [id number] [place] [address] [place] Platelet mean volume (Bld) [Entitic vol] 11.0 fL Normal 9.0-12.7 [facility] Comment on above: Order Comment: Speci men Type: BLOOD SPECIMENOrdering Facility: [facility] Address: [address] [place] [address] Performed By: #### 5 7021-8 ####[facility] MILLTOWNCLIA [id number] [address] LABORATORYCLIA [id number] [place] [address] [place] Platelets (Bld) [#/Vol] 150 10*3/uL Normal 150-400 [facility] Comment on above: Order Comment: Speci men Type: BLOOD SPECIMENOrdering Facility: [facility] Address: [address] [place] [address] Performed By: #### 5 7021-8 ####[facility] MILLTOWNCLIA [id number] [address] LABORATORYCLIA [id number] [place] [address] [place] Platelets Estimate (Bld) [#/Vol] Adequate Normal [facility] Comment on above: Order Comment: Speci men Type: BLOOD SPECIMENOrdering Facility: [facility] Address: [address] [place] [address] Performed By: #### 5 7021-8 ####[facility] MILLTOWNCLIA [id number] [address] LABORATORYCLIA [id number] [place] [address] [place] Polychromasia LM Ql (Bld) Slight Normal [facility] Comment on above: Order Comment: Speci men Type: BLOOD SPECIMENOrdering Facility: [facility] Address: [address] [place] [address] Performed By: #### 5 7021-8 ####[facility] MILLWNCLIA [id number] [address] LABORATORYCLIA [id number] [place] [address] [place] RBC (Bld) [#/Vol] 4.04 10*6/uL Low 4.20-6.00 [facility] Comment on above: Order Comment: Speci men Type: BLOOD SPECIMENOrdering Facility: [facility] Address: [address] [place] [address] Performed By: #### 5 7021-8 ####[facility] MILLWNCLIA [id number] [address] LABORATORYCLIA [id number] [place] [address] [place] RED CELL MORPH Reviewed: see result s of individual morphologies Normal [facility] Comment on above: Order Comment: Speci men Type: BLOOD SPECIMENOrdering Facility: [facility] Address: [address] [place] [address] Performed By: #### 5 7021-8 ####[facility] CHEMAWNCLIA [id number] [address] LABORATORYCLIA [id number] [place] [address] [place] WBC (Bld) [#/Vol] 11.66 10*3/uL High 3.70-11.00 [facility] Comment on above: Order Comment: Speci men Type: BLOOD SPECIMENOrdering Facility: [facility] Address: [address] [place] [address] Performed By: #### 5 7021-8 ####[facility] CLAY COUNTYNCLIA [id number] [address] LABORATORYCLIA [id number] [place] [address] [place] WBC Left Shift Ql (Bld) Present Normal [facility] Comment on above: Order Comment: Speci men Type: BLOOD SPECIMENOrdering Facility: [facility] Address: [address] [place] [address] Performed By: #### 5 7021-8 ####[facility] CLAY COUNTYNCLIA [id number] [address] LABORATORYCLIA [id number] [place] [address] [place] CNOVSPon 12-27-2024 CNOVSP Normal [facility] CNPNon 12-27-2024 CNPN Normal [facility] metabolic 2000 panelOrdered By: Daisy Luis on 12-27-2024 Albumin [Mass/Vol] 4.1 g/dL 3.9 - 4.9 g/dL [facility] ALP [Catalytic activity/Vol] 137 U/L High 38 - 113 U/L [facility] ALT [Catalytic activity/Vol] 76 U/L High 10 - 54 U/L [facility] Anion gap [Moles/Vol] 14 mmol/L 8 - 15 mmol/L [facility] AST [Catalytic activity/Vol] 62 U/L High 14 - 40 U/L [facility] Bilirubin [Mass/Vol] 1 mg/dL 0.2 - 1 .3 mg/dL [facility] Calcium [Mass/Vol] 9.9 mg/dL 8.5 - 10. 2 mg/dL [facility] Chloride [Moles/Vol] 102 mmol/L 98 - 10 7 mmol/L [facility] CO2 [Moles/Vol] 21 mmol/L Low 22 - 30 mmol/L [facility] Creatinine [Mass/Vol] 0.65 mg/dL Low 0.73 - 1.22 mg/dL [facility] GFR/1.73 sq M.predicted among non-blacks MDRD (S/P/Bld) [Vol rate/Area] 105 mL/min/{1.73_m2} - PINF [facility] Comment on above: Estimated Glomerular Filtration Rate (eGFR) is calculated using the 2020 CKD-EPI creatinine equation. This equation utilizes serum creatinine, sex, and age as parameters. The creatinine assay has traceable calibration to isotope dilution-mass spectrometry. Refer to KDIGO guidelines for clinical interpretation. In patients with unstable renal function, e.g. those with acute kidney injury, the eGFR may not accurately reflect actual GFR. Glucose [Mass/Vol] 108 mg/dL High 74 - 99 mg/dL [facility] Comment on above: The [place] Di[employer] [place] Association (ADA) provides guidance for cutoff values for fasting glucose and random glucose. The ADA defines fasting as no caloric intake for at least 8 hours. Fasting plasma glucose results between 100 to 125 mg/dL indicate increased risk for diabetes (prediabetes). Fasting plasma glucose results greater than or equal to 126 mg/dL meet the criteria for diagnosis of diabetes. In the absence of unequivocal hyperglycemia, results should be confirmed by repeat testing. In a patient with classic symptoms of hyperglycemia or hyperglycemic crisis, random plasma glucose results greater than or equal to 200 mg/dL meet the criteria for diagnosis of diabetes. Reference: Standards of Medical Care in Diabetes 2016, [place] [employer]. Diabetes Care. 2016.39(Suppl 1). Interpretation and review of laboratory results Abnormal [facility] Potassium [Moles/Vol] 3.6 mmol/L Low 3.7 - 5.1 mmol/L [facility] Protein [Mass/Vol] 7 g/dL 6.3 - 8.0 g/dL [facility] Sodium [Moles/Vol] 137 mmol/L 136 - 144 mmol/L [facility] Urea nitrogen [Mass/Vol] 6 mg/dL Low 9 - 24 mg/dL [facility] Comprehensive metabolic 2000 panelon 12-27-2024 Albumin [Mass/Vol] 4.1 g/dL Normal 3.9-4.9 [facility] Comment on above: Order Comment: Speci men Type: BLOOD SPECIMENOrdering Facility: [facility] Address: [address] [place] [address] Performed By: #### 2 4323-8 ####[facility] [id number] [place] [address] [place] ALP [Catalytic activity/Vol] 137 U/L High 38-113 [facility] Comment on above: Order Comment: Speci men Type: BLOOD SPECIMENOrdering Facility: [facility] Address: [address] [place] [address] Performed By: #### 2 4323-8 ####[facility] [id number] [place] [address] [place] ALT [Catalytic activity/Vol] 76 U/L High 10-54 [facility] Comment on above: Order Comment: Speci men Type: BLOOD SPECIMENOrdering Facility: [facility] Address: [address] [place] [id number] Performed By: #### 2 4323-8 ####[facility] [id number] [place] [address] [place] Anion gap [Moles/Vol] 14 mmol/L Normal 8-15 [facility] Comment on above: Order Comment: Speci men Type: BLOOD SPECIMENOrdering Facility: [facility] Address: [address] [place], [place] [address] Performed By: #### 2 4323-8 ####[facility] MILLTOWNCLIA [id number] [place] [address] [place] AST [Catalytic activity/Vol] 62 U/L High 14-40 [facility] Comment on above: Order Comment: Speci men Type: BLOOD SPECIMENOrdering Facility: [facility] Address: [address] [place] [address] Performed By: #### 2 4323-8 ####[facility]CL[facility] [id number] [place] [address] [place] Bilirubin [Mass/Vol] 1.0 mg/dL Normal 0.2-1.3 [facility] Comment on above: Order Comment: Speci men Type: BLOOD SPECIMENOrdering Facility: [facility] Address: [address] [place] [address] Performed By: #### 2 4323-8 ####[facility]ENTER[facility] [id number] [place] [address] [place] Calcium [Mass/Vol] 9.9 mg/dL Normal 8.5-10.2 [facility] Comment on above: Order Comment: Speci men Type: BLOOD SPECIMENOrdering Facility: [facility] Address: [address] [place] [address] Performed By: #### 2 4323-8 ####[facility] MILLWNCLIA [id number] [place] [address] [place] Chloride [Moles/Vol] 102 mmol/L Normal 98-107 [facility] Comment on above: Order Comment: Speci men Type: BLOOD SPECIMENOrdering Facility: [facility] Address: [address] [place] [address] Performed By: #### 2 4323-8 ####[facility] CLAY COUNTYNCLIA [id number] [place] [address] [place] CO2 [Moles/Vol] 21 mmol/L Low 22-30 [facility] Comment on above: Order Comment: Speci men Type: BLOOD SPECIMENOrdering Facility: [facility] Address: [address] [place] [address] Performed By: #### 2 4323-8 ####[facility] [id number] [place] [address] [place] Creatinine [Mass/Vol] 0.65 mg/dL Low 0.73-1.22 [facility] Comment on above: Order Comment: Speci men Type: BLOOD SPECIMENOrdering Facility: [facility] Address: [address] [place] [address] Performed By: #### 2 4323-8 ####[facility]YNCM[facility] [id number] [place] [address] [place] Creatinine and Glomerular filtration rate.predicted panel (S/P/Bld) 105 mL/min/1.73m??? Normal >=60 [facility] Comment on above: Order Comment: Speci men Type: BLOOD SPECIMENOrdering Facility: [facility] Address: [address] [place] [address] Result Comment: Lisa mated Glomerular Filtration Rate (eGFR) is calculated using the 2020 CKD-EPI creatinine equation. This equation utilizes serum creatinine, sex, and age as parameters. The creatinine assay has traceable calibration to isotope dilution-mass spectrometry. Refer to KDIGO guidelines for clinical interpretation. In patients with unstable renal function, e.g. those with acute kidney injury, the eGFR may not accurately reflect actual GFR. Performed By: #### 2 4323-8 ####[facility] CLAY COUNTYNCLIA [id number] [place] [address] [place] Glucose [Mass/Vol] 108 mg/dL High 74-99 [facility] Comment on above: Order Comment: Speci men Type: BLOOD SPECIMENOrdering Facility: [facility] Address: [address] [place] [address] Result Comment: The [place] [employer] (ADA) provides guidance for cutoff values for fasting glucose and random glucose. The ADA defines fasting as no caloric intake for at least 8 hours. Fasting plasma glucose results between 100 to 125 mg/dL indicate increased risk for diabetes (prediabetes).Fasting plasma glucose results greater than or equal to 126 mg/dL meet the criteria for diagnosis of diabetes. In the absence of unequivocal hyperglycemia, results should be confirmed by repeat testing. In a patient with classic symptoms of hyperglycemia or hyperglycemic crisis, random plasma glucose results greater than or equal to 200 mg/dL meet the criteria for diagnosis of diabetes.Reference: Standards of Medical Care in Diabetes 2016, [place] [employer]. Diabetes Care. 2016.39(Suppl 1). Performed By: #### 2 4323-8 ####[facility] [id number] [place] [address] [place] Potassium [Moles/Vol] 3.6 mmol/L Low 3.7-5.1 [facility] Comment on above: Order Comment: Speci men Type: BLOOD SPECIMENOrdering Facility: [facility] Address: [address] [place] [address] Performed By: #### 2 4323-8 ####[facility] [id number] [place] [place] [address] [place] Protein [Mass/Vol] 7.0 g/dL Normal 6.3-8.0 [facility] Comment on above: Order Comment: Speci men Type: BLOOD SPECIMENOrdering Facility: [facility] Address: [address] [place] [address] Performed By: #### 2 4323-8 ####[facility] [id number] [place] [address] [place] Sodium [Moles/Vol] 137 mmol/L Normal 136-144 [facility] Comment on above: Order Comment: Speci men Type: BLOOD SPECIMENOrdering Facility: [facility] Address: [address] [place] [address] Performed By: #### 2 4323-8 ####[facility] CHRIS NICOLE [id number] [place] [address] [place] Urea nitrogen [Mass/Vol] 6 mg/dL Low 9-24 [facility] Comment on above: Order Comment: Speci men Type: BLOOD SPECIMENOrdering Facility: [facility] Address: [address] [place] [address] Performed By: #### 2 4323-8 ####[facility] CHRIS NICOLE [id number] [place] [address] [place] GLUCOSE, BLOOD (POC)on 12-26 Glucose [Mass/Vol] 108 mg/dL Abnormal 74 - 99 mg/dL [facility] Comment on above: Location:[facility], [address] [place] [address], [address] The Accu-Chek Inform II glucose meter has not been approved for testing on patients receiving intensive medical intervention or therapy and results from this point of care glucose test should not be used for patient management decisions in these cases. Inaccurate results may also occur from other interfering factors, such as N-acetylcysteine (blood concentrations of greater than 5mg/dL), galactose, extremes of hematocrit (<10 or >65), or high doses of ascorbic acid (vitamin C) greater than 3mg/dL. Consider alternate testing mechanisms (e.g. core lab, blood gas instrument) in the above situations. 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 EXAM CATEGORY: Subsequent treatment strategy. TECHNIQUE: Radiopharmaceutical was administered intravenously followed by PET imaging from the eyes to thighs. Free breathing, low dose CT of the same body region was acquired without IV contrast for attenuation correction and anatomic localization. Unenhanced imaging is limited for the evaluation of some pathology and the acquired CT was not designed to produce diagnostic CT scan quality. Physiologic/non-pathologic uptake in some body regions could confound or obscure some pathology. * CT Dose-Length Product (DLP): 363 mGy*cm * CT Dose Reduction Employed: Yes * Blood glucose: 108 mg/dL * Injection site: Right Forearm-Antecubital * Injected activity: 12.0 mCi * Uptake Time: 50 minutes * Radiopharmaceutical: E34-Msxvqcnydcalhwmjec (FDG) COMPARISON: FDG PET/CT 10/25/2024 CORRELATION: No relevant interval imaging available RESULT: REFERENCES: FDG uptake is used as a surrogate marker for glucose metabolism. All reported standardized uptake values represent maximum SUV (SUVmax) per body weight, unless otherwise specified. SUV reference values, as follows: * Blood Pool (Descending Aorta): SUVmax 2.6 * Background Liver: SUVmax 3.0; SUVmean 2.3 Localizer Images: No additional findings. HEAD AND NECK: Head: No radiotracer avid lesion where imaged. Aerodigestive Tract: No radiotracer avid lesion. Lymph Nodes: No radiotracer avid lymphadenopathy. Neck Soft Tissues: No radiotracer avid thyroid nodule. CHEST: Lungs and Pleura: No radiotracer avid mass, nodule, or consolidation. Calcified granuloma(s). No pleural effusion. Lymph Nodes: New metabolically active right hilar adenopathy. For example: * 1.7 cm right hilar node (SUV 5.0, 3:91) * Additional subcentimeter mediastinal lymph nodes with low level FDG uptake, possibly reactive. Mediastinum: * Esophageal stent traverses the lower third esophagus across the GE junction to terminate in the gastric cardia. * Increasing metabolic active circumferential wall thickening abutting the esophageal stent and increasing soft tissue within the esophageal stent (SUV 9.3, previously 4.9, 3:108). * Similar FDG uptake at the GE junction/gastric cardia the end of the stent (SUV 6.4, previously 6.7, 3:151). Cardiovascular: Blood pool activity. No pericardial effusion. Thoracic aortic and coronary artery calcifications. Chest Wall: No radiotracer avid soft tissue lesion. Right chest wall port with central venous catheter tip in the right atrium. Left chest wall pacemaker with lead tips in right atrial appendage and right ventricle. ABDOMEN AND PELVIS: Hepatobiliary: No radiotracer avid lesion. Spleen: Calcified granulomata. Pancreas: No radiotracer avid lesion. Adrenals: No radiotracer avid nodule. Urinary Tract: Physiologic radiotracer excretion in the renal collecting systems and urinary bladder. GI Tract and Peritoneum: * Esophageal findings discussed above. * Segmentally increased bowel uptake is likely physiologic or secondary to medication effects (e.g. metformin), but does degrade peritoneal assessment. No focal radiotracer avid lesion. * No dilated bowel or ascites. * Colonic diverticulosis. Lymph Nodes: * Metabolically active 1.0 cm short axis precaval node (SUV 3.6, 3:129). * No additional hypermetabolic abdominopelvic lymph nodes. Vasculature: Blood pool activity. Vascular calcifications without an abdominal aortic aneurysm. Pelvic Organs: No radiotracer avid lesion. MUSCULOSKELETAL: Bones: Diffusely increased uptake in the axial and proximal appendicular skeleton. No focal radiotracer avid lytic or sclerotic lesion. Degenerative changes. Soft Tissues: Metabolically active LEFT posterior thigh skin lesion likely related to infected sebaceous cyst. 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 Enlarging soft tissue component within the lower esophageal stent. JORGE LUIS DISEASE: * New metabolically active right hilar and precaval lymphadenopathy. METASTATIC DISEASE: * No metabolically active distant metastases. ADDITIONAL FINDINGS: * Diffusely increased splenic and bone marrow uptake, likely reactive to treatment. Steward Dishwasher: SARAH Transcribe Date/Time: Dec 28 2024 3:27P Dictated by : SANDI DIAZ MD This examination was interpreted and the report reviewed and electronically signed by: ROSA WILLARD MD on Dec 28 2024 5:46PM EST [id number] Normal [facility] CBC W Auto Differential pane l (Bld)on 12-13-2024 Basophils [facility]Bld) [#/Vol] [facility] Basophils/100 WBC (Bld) 0.3 % [facility] Differential cell count method Nom (Bld) Auto [facility] Eosinophils (Bld) [#/Vol] NINF [facility] Eosinophils/100 WBC (Bld) 0.2 % [facility] Erythrocyte distribution width (RBC) [Ratio] 14.1 % 11.5 - 15.0 % [facility] Hematocrit (Bld) [Volume fraction] 31.2 % Low 39.0 - 51.0 % [facility] Hemoglobin (Bld) [Mass/Vol] 10 g/dL Low 13.0 - 17.0 g/dL [facility] Immature granulocytes (Bld) [#/Vol] 0.07 10*3/uL [facility] Immature granulocytes/100 WBC (Bld) 1.2 % [facility] Interpretation and review of laboratory results Abnormal [facility] Lymphocytes (Bld) [#/Vol] 1.81 10*3/uL [facility] Lymphocytes/100 WBC (Bld) 31 % [facility] MCH (RBC) [Entitic mass] 28 pg 26.0 - 34.0 pg [facility] MCHC (RBC) [Mass/Vol] 32.1 g/dL 30.5 - 36.0 g/dL [facility] MCV (RBC) [Entitic vol] 87.4 fL 80.0 - 100.0 fL [facility] Monocytes (Bld) [#/Vol] 0.86 10*3/uL [facility] Monocytes/100 WBC (Bld) 14.7 % [facility] Neutrophils (Bld) [#/Vol] 3.07 10*3/uL [facility] Neutrophils/100 WBC (Bld) 52.6 % [facility] Nucleated RBC (Bld) [#/Vol] [facility] Nucleated RBC/100 WBC (Bld) [Ratio] 0 % /100 WBC [facility] Platelet mean volume (Bld) [Entitic vol] 8.9 fL Low 9.0 - 12.7 fL [facility] Platelets (Bld) [#/Vol] 260 10*3/uL [facility] RBC (Bld) [#/Vol] 3.57 10*6/uL Low 4.20 - 6.00 m/uL [facility] WBC (Bld) [#/Vol] 5.84 10*3/uL [facility] Basophils (Bld) [#/Vol] 10*3/uL Normal <0.11 [facility] Comment on above: Order Comment: Speci men Type: BLOOD SPECIMENOrdering Facility: [facility] Address: [address] [place] [address] Performed By: #### 5 7021-8 ####[facility] MILLWNCLIA [id number] [place] [address] [place] Basophils/100 WBC (Bld) 0.3 % Normal [facility] Comment on above: Order Comment: Speci men Type: BLOOD SPECIMENOrdering Facility: [facility] Address: [address] [place] [address] Performed By: #### 5 7021-8 ####[facility] COUNTYNCLIA [id number] [place] [address] [place] Differential cell count method Nom (Bld) Auto Normal [facility] Comment on above: Order Comment: Speci men Type: BLOOD SPECIMENOrdering Facility: [facility] Address: [address] [place] [address] Performed By: #### 5 7021-8 ####[facility] G[facility]DAWNCL[facility] [id number] [place] [address] [place] Eosinophils (Bld) [#/Vol] 10*3/uL Normal <0.46 [facility] Comment on above: Order Comment: Speci men Type: BLOOD SPECIMENOrdering Facility: [facility] Address: [address] [place] [address] Performed By: #### 5 7021-8 ####[facility]ENTER[facility] [id number] [place] [address] [place] Eosinophils/100 WBC (Bld) 0.2 % Normal [facility] Comment on above: Order Comment: Speci men Type: BLOOD SPECIMENOrdering Facility: [facility] Address: [address] [place] [address] Performed By: #### 5 7021-8 ####[facility]ENTERLIA [id number] [place] [address] [place] Erythrocyte distribution width (RBC) [Ratio] 14.1 % Normal 11.5-15.0 [facility] Comment on above: Order Comment: Speci men Type: BLOOD SPECIMENOrdering Facility: [facility] Address: [address] [place] [address] Performed By: #### 5 7021-8 ####[facility] [id number] [place] [address] [place] Hematocrit (Bld) [Volume fraction] 31.2 % Low 39.0-51.0 [facility] Comment on above: Order Comment: Speci men Type: BLOOD SPECIMENOrdering Facility: [facility] Address: [address] [place] [address] Performed By: #### 5 7021-8 ####[facility] [id number] [place] [address] [place] Hemoglobin (Bld) [Mass/Vol] 10.0 g/dL Low 13.0-17.0 [facility] Comment on above: Order Comment: Speci men Type: BLOOD SPECIMENOrdering Facility: [facility] Address: [address] [place] [address] Performed By: #### 5 7021-8 ####[facility] [id number] [place] [address] [place] Immature granulocytes (Bld) [#/Vol] 0.07 10*3/uL Normal <0.10 [facility] Comment on above: Order Comment: Speci men Type: BLOOD SPECIMENOrdering Facility: [facility] Address: [address] [place] [address] Performed By: #### 5 7021-8 ####[facility] [id number] [place] [address] [place] Immature granulocytes/100 WBC (Bld) 1.2 % Normal [facility] Comment on above: Order Comment: Speci men Type: BLOOD SPECIMENOrdering Facility: [facility] Address: [address] [place] [address] Performed By: #### 5 7021-8 ####[facility] NORRISCOREYA [id number] [place] [address] [place] Lymphocytes (Bld) [#/Vol] 1.81 10*3/uL Normal 1.00-4.00 [facility] Comment on above: Order Comment: Speci men Type: BLOOD SPECIMENOrdering Facility: [facility] Address: [address] [place] [address] Performed By: #### 5 7021-8 ####[facility] C[facility] COUNTYCARLOSA [id number] [place] [address] [place] Lymphocytes/100 WBC (Bld) 31.0 % Normal [facility] Comment on above: Order Comment: Speci men Type: BLOOD SPECIMENOrdering Facility: [facility] Address: [address] [place] [address] Performed By: #### 5 7021-8 ####[facility] [id number] [place] [address] [place] MCH (RBC) [Entitic mass] 28.0 pg Normal 26.0-34.0 [facility] Comment on above: Order Comment: Speci men Type: BLOOD SPECIMENOrdering Facility: [facility] Address: [address] [place] [address] Performed By: #### 5 7021-8 ####[facility] CLAY COUNTYNCLIA [id number] [place] [address] [place] MCHC (RBC) [Mass/Vol] 32.1 g/dL Normal 30.5-36.0 [facility] Comment on above: Order Comment: Speci men Type: BLOOD SPECIMENOrdering Facility: [facility] Address: [address] [place] [address] Performed By: #### 5 7021-8 ####[facility] MILLWNCLIA [id number] [place] [address] [place] MCV (RBC) [Entitic vol] 87.4 fL Normal 80.0-100.0 [facility] Comment on above: Order Comment: Speci men Type: BLOOD SPECIMENOrdering Facility: [facility] Address: [address] [place] [address] Performed By: #### 5 7021-8 ####[facility] CLAY COUNTYNCLIA [id number] [place] [address] [place] Monocytes (Bld) [#/Vol] 0.86 10*3/uL Normal <0.87 [facility] Comment on above: Order Comment: Speci men Type: BLOOD SPECIMENOrdering Facility: [facility] Address: [address] [place] [address] Performed By: #### 5 7021-8 ####[facility] [id number] [place] [address] [place] Monocytes/100 WBC (Bld) 14.7 % Normal [facility] Comment on above: Order Comment: Speci men Type: BLOOD SPECIMENOrdering Facility: [facility] Address: [address] [place] [address] Performed By: #### 5 7021-8 ####[facility] CENTERLIA [id number] [place] [address] [place] Neutrophils (Bld) [#/Vol] 3.07 10*3/uL Normal 1.45-7.50 [facility] Comment on above: Order Comment: Speci men Type: BLOOD SPECIMENOrdering Facility: [facility] Address: [address] [place] [address] Performed By: #### 5 7021-8 ####[facility] C[facility] COUNTYNCLIA [id number] [place] [address] [place] Neutrophils/100 WBC (Bld) 52.6 % Normal [facility] Comment on above: Order Comment: Speci men Type: BLOOD SPECIMENOrdering Facility: [facility] Address: [address] [place] [address] Performed By: #### 5 7021-8 ####[facility]YNCMO[facility] [id number] [place] [address] [place] Nucleated RBC (Bld) [#/Vol] 10*3/uL Normal <0.01 [facility] Comment on above: Order Comment: Speci men Type: BLOOD SPECIMENOrdering Facility: [facility] Address: [address] [place] [address] Performed By: #### 5 7021-8 ####[facility] [id number] [place] [address] [place] Nucleated RBC/100 WBC (Bld) [Ratio] 0.0 /100 WBC Normal [facility] Comment on above: Order Comment: Speci men Type: BLOOD SPECIMENOrdering Facility: [facility] Address: [address] [place] [address] Performed By: #### 5 7021-8 ####[facility]YNCM[facility] [id number] [place] [address] [place] Platelet mean volume (Bld) [Entitic vol] 8.9 fL Low 9.0-12.7 [facility] Comment on above: Order Comment: Speci men Type: BLOOD SPECIMENOrdering Facility: [facility] Address: [address] [place] [address] Performed By: #### 5 7021-8 ####[facility] [id number] [place] [address] [place] Platelets (Bld) [#/Vol] 260 10*3/uL Normal 150-400 [facility] Comment on above: Order Comment: Speci men Type: BLOOD SPECIMENOrdering Facility: [facility] Address: [address] [place] [address] Performed By: #### 5 7021-8 ####[facility] CLAY COUNTYPALOMA [id number] [place] [address] [place] RBC (Bld) [#/Vol] 3.57 10*6/uL Low 4.20-6.00 [facility] Comment on above: Order Comment: Speci men Type: BLOOD SPECIMENOrdering Facility: [facility] Address: [address] [place] [address] Performed By: #### 5 7021-8 ####[facility] CLAY COUNTYLMA [id number] [place] [address] [place] WBC (Bld) [#/Vol] 5.84 10*3/uL Normal 3.70-11.00 [facility] Comment on above: Order Comment: Speci men Type: BLOOD SPECIMENOrdering Facility: [facility] Address: [address] [place] [address] Performed By: #### 5 7021-8 ####[facility] C[facility] COUNTYCARLOSMICAA [id number] [place] [address] [place] CBC W Auto Differential pane l (Bld)on 12-07-2024 Basophils (Bld) [#/Vol] 10*3/uL Normal <0.11 [facility] Comment on above: Order Comment: Speci men Type: BLOOD SPECIMENOrdering Facility: [facility] Address: [address] [place] [address] Performed By: #### 5 7021-8 ####[facility] CLAY COUNTYNCLIA [id number] [place] [address] [place] Basophils/100 WBC (Bld) 0.3 % Normal [facility] Comment on above: Order Comment: Speci men Type: BLOOD SPECIMENOrdering Facility: [facility] Address: [address] [place] [address] Performed By: #### 5 7021-8 ####[facility] NORRISBALATONCARLOSLIA [id number] [place] [address] [place] Differential cell count method Nom (Bld) Auto Normal [facility] Comment on above: Order Comment: Speci men Type: BLOOD SPECIMENOrdering Facility: [facility] Address: [address] [place] [address] Performed By: #### 5 7021-8 ####[facility] COUNTYCARLOSLIA [id number] [place] [address] [place] Eosinophils (Bld) [#/Vol] 10*3/uL Normal <0.46 [facility] Comment on above: Order Comment: Speci men Type: BLOOD SPECIMENOrdering Facility: [facility] Address: [address] [place] [address] Performed By: #### 5 7021-8 ####[facility] COUNTYCARLOSLIA [id number] [place] [address] [place] Eosinophils/100 WBC (Bld) 0.0 % Normal [facility] Comment on above: Order Comment: Speci men Type: BLOOD SPECIMENOrdering Facility: [facility] Address: [address] [place] [address] Performed By: #### 5 7021-8 ####[facility] COUNTYCARLOSLIA [id number] [place] [address] [place] Erythrocyte distribution width (RBC) [Ratio] 13.8 % Normal 11.5-15.0 [facility] Comment on above: Order Comment: Speci men Type: BLOOD SPECIMENOrdering Facility: [facility] Address: [address] [place] [address] Performed By: #### 5 7021-8 ####[facility] CLAY COUNTYNCLIA [id number] [place] [address] [place] Hematocrit (Bld) [Volume fraction] 31.5 % Low 39.0-51.0 [facility] Comment on above: Order Comment: Speci men Type: BLOOD SPECIMENOrdering Facility: [facility] Address: [address] [place] [address] Performed By: #### 5 7021-8 ####[facility] [id number] [place] [address] [place] Hemoglobin (Bld) [Mass/Vol] 10.2 g/dL Low 13.0-17.0 [facility] Comment on above: Order Comment: Speci men Type: BLOOD SPECIMENOrdering Facility: [facility] Address: [address] [place] [address] Performed By: #### 5 7021-8 ####[facility] [id number] [place] [address] [place] Immature granulocytes (Bld) [#/Vol] 10*3/uL Normal <0.10 [facility] Comment on above: Order Comment: Speci men Type: BLOOD SPECIMENOrdering Facility: [facility] Address: [address] [place] [address] Performed By: #### 5 7021-8 ####[facility] [id number] [place] [address] [place] Immature granulocytes/100 WBC (Bld) 0.6 % Normal [facility] Comment on above: Order Comment: Speci men Type: BLOOD SPECIMENOrdering Facility: [facility] Address: [address] [place] [address] Performed By: #### 5 7021-8 ####[facility] [id number] [place] [address] [place] Lymphocytes (Bld) [#/Vol] 1.29 10*3/uL Normal 1.00-4.00 [facility] Comment on above: Order Comment: Speci men Type: BLOOD SPECIMENOrdering Facility: [facility] Address: [address] [place] [address] Performed By: #### 5 7021-8 ####[facility] NORRISMIGUEL [id number] [place] [address] [place] Lymphocytes/100 WBC (Bld) 37.3 % Normal [facility] Comment on above: Order Comment: Speci men Type: BLOOD SPECIMENOrdering Facility: [facility] Address: [address] [place] [address] Performed By: #### 5 7021-8 ####[facility] CLAY COUNTYNCJOIE [id number] [place] [address] [place] MCH (RBC) [Entitic mass] 28.3 pg Normal 26.0-34.0 [facility] Comment on above: Order Comment: Speci men Type: BLOOD SPECIMENOrdering Facility: [facility] Address: [address] [place] [address] Performed By: #### 5 7021-8 ####[facility] CLAY COUNTYNCJOIE [id number] [place] [address] [place] MCHC (RBC) [Mass/Vol] 32.4 g/dL Normal 30.5-36.0 [facility] Comment on above: Order Comment: Speci men Type: BLOOD SPECIMENOrdering Facility: [facility] Address: [address] [place] [address] Performed By: #### 5 7021-8 ####[facility] CLAY COUNTYNCLIA [id number] [place] [address] [place] MCV (RBC) [Entitic vol] 87.3 fL Normal 80.0-100.0 [facility] Comment on above: Order Comment: Speci men Type: BLOOD SPECIMENOrdering Facility: [facility] Address: [address] [place] [address] Performed By: #### 5 7021-8 ####[facility] MILLWNCLIA [id number] [place] [address] [place] Monocytes (Bld) [#/Vol] 1.25 10*3/uL High <0.87 [facility] Comment on above: Order Comment: Speci men Type: BLOOD SPECIMENOrdering Facility: [facility] Address: [address] [place] [address] Performed By: #### 5 7021-8 ####[facility]ENTERLIA [id number] [place] [address] [place] Monocytes/100 WBC (Bld) 36.1 % Normal [facility] Comment on above: Order Comment: Speci men Type: BLOOD SPECIMENOrdering Facility: [facility] Address: [address] [place] [address] Performed By: #### 5 7021-8 ####[facility] CENTERLIA [id number] [place] [address] [place] Neutrophils (Bld) [#/Vol] 0.89 10*3/uL Low 1.45-7.50 [facility] Comment on above: Order Comment: Speci men Type: BLOOD SPECIMENOrdering Facility: [facility] Address: [address] [place] [address] Performed By: #### 5 7021-8 ####[facility]ENTERLIA [id number] [place] [address] [place] Neutrophils/100 WBC (Bld) 25.7 % Normal [facility] Comment on above: Order Comment: Speci men Type: BLOOD SPECIMENOrdering Facility: [facility] Address: [address] [place] [address] Performed By: #### 5 7021-8 ####[facility] CLAY COUNTYNCLIA [id number] [place] [address] [place] Nucleated RBC (Bld) [#/Vol] 10*3/uL Normal <0.01 [facility] Comment on above: Order Comment: Speci men Type: BLOOD SPECIMENOrdering Facility: [facility] Address: [address] [place] [address] Performed By: #### 5 7021-8 ####[facility] CLAY COUNTYNCA [id number] [place] [address] [place] Nucleated RBC/100 WBC (Bld) [Ratio] 0.0 /100 WBC Normal [facility] Comment on above: Order Comment: Speci men Type: BLOOD SPECIMENOrdering Facility: [facility] Address: [address] [place] [address] Performed By: #### 5 7021-8 ####[facility] [id number] [place] [address] [place] Platelet mean volume (Bld) [Entitic vol] 9.7 fL Normal 9.0-12.7 [facility] Comment on above: Order Comment: Speci men Type: BLOOD SPECIMENOrdering Facility: [facility] Address: [address] [place] [address] Performed By: #### 5 7021-8 ####[facility] [id number] [place] [address] [place] Platelets (Bld) [#/Vol] 207 10*3/uL Normal 150-400 [facility] Comment on above: Order Comment: Speci men Type: BLOOD SPECIMENOrdering Facility: [facility] Address: [address] [place] [address] Performed By: #### 5 7021-8 ####[facility] [id number] [place] [address] [place] RBC (Bld) [#/Vol] 3.61 10*6/uL Low 4.20-6.00 [facility] Comment on above: Order Comment: Speci men Type: BLOOD SPECIMENOrdering Facility: [facility] Address: [address] [place] [address] Performed By: #### 5 7021-8 ####[facility] CHRIS COLLINSNCJOIE [id number] [address] [place] WBC (Bld) [#/Vol] 3.46 10*3/uL Low 3.70-11.00 [facility] Comment on above: Order Comment: Speci men Type: BLOOD SPECIMENOrdering Facility: [facility] Address: [address] [place] [address] Performed By: #### 5 7021-8 ####[facility] CH[facility]IS [facility] HOSPITALNCLIA [id number] [place] [address] [place] CNPNon 12-07-2024 CNPN Normal [facility] CBC W Auto Differential pane l (Bld)on 12-05-2024 Basophils (Bld) [#/Vol] NINF [facility] Basophils/100 WBC (Bld) 0.3 % [facility] Differential cell count method Nom (Bld) Auto [facility] Eosinophils (Bld) [#/Vol] [facility] Eosinophils/100 WBC (Bld) 0.3 % [facility] Erythrocyte distribution width (RBC) [Ratio] 13.6 % 11.5 - 15.0 % [facility] Hematocrit (Bld) [Volume fraction] 32.1 % Low 39.0 - 51.0 % [facility] Hemoglobin (Bld) [Mass/Vol] 10.5 g/dL Low 13.0 - 17.0 g/dL [facility] Immature granulocytes (Bld) [#/Vol] NINF [facility] Immature granulocytes/100 WBC (Bld) 0.3 % [facility] Interpretation and review of laboratory results Abnormal [facility] Lymphocytes (Bld) [#/Vol] 1.2 10*3/uL [facility] Lymphocytes/100 WBC (Bld) 40.5 % [facility] MCH (RBC) [Entitic mass] 28.4 pg 26.0 - 34.0 pg [facility] MCHC (RBC) [Mass/Vol] 32.7 g/dL 30.5 - 36.0 g/dL [facility] MCV (RBC) [Entitic vol] 86.8 fL 80.0 - 100.0 fL [facility] Monocytes (Bld) [#/Vol] 1.02 10*3/uL High NINF [facility] Monocytes/100 WBC (Bld) 34.5 % [facility] Neutrophils (Bld) [#/Vol] 0.71 10*3/uL Low [facility] Neutrophils/100 WBC (Bld) 24.1 % [facility] Nucleated RBC (Bld) [#/Vol] NINF [facility] Nucleated RBC/100 WBC (Bld) [Ratio] 0 % /100 WBC [facility] Platelet mean volume (Bld) [Entitic vol] 9.6 fL 9.0 - 12.7 fL [facility] Platelets (Bld) [#/Vol] 175 10*3/uL [facility] RBC (Bld) [#/Vol] 3.7 10*6/uL Low 4.20 - 6.00 m/uL [facility] WBC (Bld) [#/Vol] 2.96 10*3/uL Low [facility] Basophils (Bld) [#/Vol] 10*3/uL Normal <0.11 [facility] Comment on above: Order Comment: Speci men Type: BLOOD SPECIMENOrdering Facility: [facility] Address: [address] [place] [address] Performed By: #### 5 7021-8 ####[facility] [id number] [address] [place] Basophils/100 WBC (Bld) 0.3 % Normal [facility] Comment on above: Order Comment: Speci men Type: BLOOD SPECIMENOrdering Facility: [facility] Address: [address] [place] [address] Performed By: #### 5 7021-8 ####[facility] [id number] [place] [address] [place] Differential cell count method Nom (Bld) Auto Normal [facility] Comment on above: Order Comment: Speci men Type: BLOOD SPECIMENOrdering Facility: [facility] Address: [address] [place] [address] Performed By: #### 5 7021-8 ####[facility] DENNISNCLIA [id number] [place] [address] [place] Eosinophils (Bld) [#/Vol] 10*3/uL Normal <0.46 [facility] Comment on above: Order Comment: Speci men Type: BLOOD SPECIMENOrdering Facility: [facility] Address: [address] [place] [address] Performed By: #### 5 7021-8 ####[facility] CLAY COUNTYLMA [id number] [place] [address] [place] Eosinophils/100 WBC (Bld) 0.3 % Normal [facility] Comment on above: Order Comment: Speci men Type: BLOOD SPECIMENOrdering Facility: [facility] Address: [address] [place] [address] Performed By: #### 5 7021-8 ####[facility] CLAY COUNTYLMA [id number] [place] [address] [place] Erythrocyte distribution width (RBC) [Ratio] 13.6 % Normal 11.5-15.0 [facility] Comment on above: Order Comment: Speci men Type: BLOOD SPECIMENOrdering Facility: [facility] Address: [address] [place] [address] Performed By: #### 5 7021-8 ####[facility] CLAY COUNTYCARLOSLIA [id number] [place] [address] [place] Hematocrit (Bld) [Volume fraction] 32.1 % Low 39.0-51.0 [facility] Comment on above: Order Comment: Speci men Type: BLOOD SPECIMENOrdering Facility: [facility] Address: [address] [place] [address] Performed By: #### 5 7021-8 ####[facility] NORRISWNCLIA [id number] [place] [address] [place] Hemoglobin (Bld) [Mass/Vol] 10.5 g/dL Low 13.0-17.0 [facility] Comment on above: Order Comment: Speci men Type: BLOOD SPECIMENOrdering Facility: [facility] Address: [address] [place] [address] Performed By: #### 5 7021-8 ####[facility]ENTERLIA [id number] [place] [address] [place] Immature granulocytes (Bld) [#/Vol] 10*3/uL Normal <0.10 [facility] Comment on above: Order Comment: Speci men Type: BLOOD SPECIMENOrdering Facility: [facility] Address: [address] [place] [address] Performed By: #### 5 7021-8 ####[facility]A [id number] [place] [address] [place] Immature granulocytes/100 WBC (Bld) 0.3 % Normal [facility] Comment on above: Order Comment: Speci men Type: BLOOD SPECIMENOrdering Facility: [facility] Address: [address] [place], [place] [address] Performed By: #### 5 7021-8 ####[facility]ENTERLIA [id number] [place] [address] [place] Lymphocytes (Bld) [#/Vol] 1.20 10*3/uL Normal 1.00-4.00 [facility] Comment on above: Order Comment: Speci men Type: BLOOD SPECIMENOrdering Facility: [facility] Address: [address] [place] [address] Performed By: #### 5 7021-8 ####[facility]ENTERLIA [id number] [place] [address] [place] Lymphocytes/100 WBC (Bld) 40.5 % Normal [facility] Comment on above: Order Comment: Speci men Type: BLOOD SPECIMENOrdering Facility: [facility] Address: [address] [place] [address] Performed By: #### 5 7021-8 ####[facility] CLAY COUNTYNCMICAA [id number] [place] [address] [place] MCH (RBC) [Entitic mass] 28.4 pg Normal 26.0-34.0 [facility] Comment on above: Order Comment: Speci men Type: BLOOD SPECIMENOrdering Facility: [facility] Address: [address] [place] [address] Performed By: #### 5 7021-8 ####[facility]YNCMOAB [facility] [id number] [place] [address] [place] MCHC (RBC) [Mass/Vol] 32.7 g/dL Normal 30.5-36.0 [facility] Comment on above: Order Comment: Speci men Type: BLOOD SPECIMENOrdering Facility: [facility] Address: [address] [place] [address] Performed By: #### 5 7021-8 ####[facility] CLAY COUNTYNCLIA [id number] [place] [address] [place] MCV (RBC) [Entitic vol] 86.8 fL Normal 80.0-100.0 [facility] Comment on above: Order Comment: Speci men Type: BLOOD SPECIMENOrdering Facility: [facility] Address: [address] [place] [address] Performed By: #### 5 7021-8 ####[facility] CLAY COUNTYNCLIA [id number] [place] [address] [place] Monocytes (Bld) [#/Vol] 1.02 10*3/uL High <0.87 [facility] Comment on above: Order Comment: Speci men Type: BLOOD SPECIMENOrdering Facility: [facility] Address: [address] [place] [address] Performed By: #### 5 7021-8 ####[facility] NORRISBALATONLMA [id number] [place] [address] [place] Monocytes/100 WBC (Bld) 34.5 % Normal [facility] Comment on above: Order Comment: Speci men Type: BLOOD SPECIMENOrdering Facility: [facility] Address: [address] [place] [address] Performed By: #### 5 7021-8 ####[facility]YNCMO[facility] [id number] [place] [address] [place] Neutrophils (Bld) [#/Vol] 0.71 10*3/uL Low 1.45-7.50 [facility] Comment on above: Order Comment: Speci men Type: BLOOD SPECIMENOrdering Facility: [facility] Address: [address] [place] [address] Performed By: #### 5 7021-8 ####[facility] [id number] [place] [address] [place] Neutrophils/100 WBC (Bld) 24.1 % Normal [facility] Comment on above: Order Comment: Speci men Type: BLOOD SPECIMENOrdering Facility: [facility] Address: [address] [place] [address] Performed By: #### 5 7021-8 ####[facility] [id number] [place] [address] [place] Nucleated RBC (Bld) [#/Vol] 10*3/uL Normal <0.01 [facility] Comment on above: Order Comment: Speci men Type: BLOOD SPECIMENOrdering Facility: [facility] Address: [address] [place] [address] Performed By: #### 5 7021-8 ####[facility] NORRISBALATONNCLIA [id number] [place] [address] [place] Nucleated RBC/100 WBC (Bld) [Ratio] 0.0 /100 WBC Normal [facility] Comment on above: Order Comment: Speci men Type: BLOOD SPECIMENOrdering Facility: [facility] Address: [address] [place] [address] Performed By: #### 5 7021-8 ####[facility] CLAY COUNTYCARLOSLIA [id number] [place] [address] [place] Platelet mean volume (Bld) [Entitic vol] 9.6 fL Normal 9.0-12.7 [facility] Comment on above: Order Comment: Speci men Type: BLOOD SPECIMENOrdering Facility: [facility] Address: [address] [place] [address] Performed By: #### 5 7021-8 ####[facility]A [id number] [place] [address] [place] Platelets (Bld) [#/Vol] 175 10*3/uL Normal 150-400 [facility] Comment on above: Order Comment: Speci men Type: BLOOD SPECIMENOrdering Facility: [facility] Address: [address] [place] [address] Performed By: #### 5 7021-8 ####[facility] CENTERLIA [id number] [place] [address] [place] RBC (Bld) [#/Vol] 3.70 10*6/uL Low 4.20-6.00 [facility] Comment on above: Order Comment: Speci men Type: BLOOD SPECIMENOrdering Facility: [facility] Address: [address] [place] [address] Performed By: #### 5 7021-8 ####[facility] CLAY COUNTYNCLIA [id number] [place] [id number] [place] WBC (Bld) [#/Vol] 2.96 10*3/uL Low 3.70-11.00 [facility] Comment on above: Order Comment: Speci men Type: BLOOD SPECIMENOrdering Facility: [facility] Address: [facility] [place] [address] Performed By: #### 5 7021-8 ####[facility] CHRIS [facility] HOSPITALNCLIA [id number] [place] [id number] [place] CNOVSPon 12-05-2024 CNOVSP Normal [facility] metabolic 2000 panelOrdered By: Daisy Luis on 12-05-2024 Albumin [Mass/Vol] 3.9 g/dL 3.9 - 4.9 g/dL [facility] ALP [Catalytic activity/Vol] 84 U/L 38 - 113 U/L [facility] ALT [Catalytic activity/Vol] 49 U/L 10 - 54 U/L [facility] Anion gap [Moles/Vol] 14 mmol/L 8 - 15 mmol/L [facility] AST [Catalytic activity/Vol] 37 U/L 14 - 40 U/L [facility] Bilirubin [Mass/Vol] 0.9 mg/dL 0.2 - 1 .3 mg/dL [facility] Calcium [Mass/Vol] 9.2 mg/dL 8.5 - 10. 2 mg/dL [facility] Chloride [Moles/Vol] 104 mmol/L 98 - 10 7 mmol/L [facility] CO2 [Moles/Vol] 20 mmol/L Low 22 - 30 mmol/L [facility] Creatinine [Mass/Vol] 0.55 mg/dL Low 0.73 - 1.22 mg/dL [facility] GFR/1.73 sq M.predicted among non-blacks MDRD (S/P/Bld) [Vol rate/Area] 111 mL/min/{1.73_m2} - PINF [facility] Comment on above: Estimated Glomerular Filtration Rate (eGFR) is calculated using the 2020 CKD-EPI creatinine equation. This equation utilizes serum creatinine, sex, and age as parameters. The creatinine assay has traceable calibration to isotope dilution-mass spectrometry. Refer to KDIGO guidelines for clinical interpretation. In patients with unstable renal function, e.g. those with acute kidney injury, the eGFR may not accurately reflect actual GFR. Glucose [Mass/Vol] 98 mg/dL 74 - 99 mg/dL [facility] Comment on above: The [place] [employer] [employer] (ADA) provides guidance for cutoff values for fasting glucose and random glucose. The ADA defines fasting as no caloric intake for at least 8 hours. Fasting plasma glucose results between 100 to 125 mg/dL indicate increased risk for diabetes (prediabetes). Fasting plasma glucose results greater than or equal to 126 mg/dL meet the criteria for diagnosis of diabetes. In the absence of unequivocal hyperglycemia, results should be confirmed by repeat testing. In a patient with classic symptoms of hyperglycemia or hyperglycemic crisis, random plasma glucose results greater than or equal to 200 mg/dL meet the criteria for diagnosis of diabetes. Reference: Standards of Medical Care in Diabetes 2016, [place] [employer]. Diabetes Care. 2016.39(Suppl 1). Interpretation and review of laboratory results Abnormal [facility] Potassium [Moles/Vol] 3.5 mmol/L Low 3.7 - 5.1 mmol/L [facility] Protein [Mass/Vol] 6.5 g/dL 6.3 - 8.0 g/dL [facility] Sodium [Moles/Vol] 138 mmol/L 136 - 144 mmol/L [facility] Urea nitrogen [Mass/Vol] 7 mg/dL Low 9 - 24 mg/dL [facility] Comprehensive metabolic 2000 panelon 12-05-2024 Albumin [Mass/Vol] 3.9 g/dL Normal 3.9-4.9 [facility] Comment on above: Order Comment: [place] Type: BLOOD SPECIMENOrdering Facility: [facility] Address: [address] [place] [address] Performed By: #### 2 4323-8 ####[facility] [id number] [place] [address] [place] ALP [Catalytic activity/Vol] 84 U/L Normal 38-113 [facility] Comment on above: Order Comment: Katie holman Type: BLOOD SPECIMENOrdering Facility: [facility] Address: [address] [place] [address] Performed By: #### 2 4323-8 ####[facility] CH[facility]IS MILLTOWNCLIA [id number] [place] [address] [place] ALT [Catalytic activity/Vol] 49 U/L Normal 10-54 [facility] Comment on above: Order Comment: Speci men Type: BLOOD SPECIMENOrdering Facility: [facility] Address: [address] [place] [address] Performed By: #### 2 4323-8 ####[facility] MILLTOWNCLIA [id number] [place] [address] [place] Anion gap [Moles/Vol] 14 mmol/L Normal 8-15 [facility] Comment on above: Order Comment: Speci men Type: BLOOD SPECIMENOrdering Facility: [facility] Address: [address] [place] [address] Performed By: #### 2 4323-8 ####[facility]ENTERLIA [id number] [place] [address] [place] AST [Catalytic activity/Vol] 37 U/L Normal 14-40 [facility] Comment on above: Order Comment: Speci men Type: BLOOD SPECIMENOrdering Facility: [facility] Address: [address] [place] [address] Performed By: #### 2 4323-8 ####[facility]UN[facility] GORDAWNCLIA [id number] [place] [address] [place] Bilirubin [Mass/Vol] 0.9 mg/dL Normal 0.2-1.3 [facility] Comment on above: Order Comment: Speci men Type: BLOOD SPECIMENOrdering Facility: [facility] Address: [address] [place] [address] Performed By: #### 2 4323-8 ####[facility] CLAY COUNTYNCLIA [id number] [place] [address] [place] Calcium [Mass/Vol] 9.2 mg/dL Normal 8.5-10.2 [facility] Comment on above: Order Comment: Speci men Type: BLOOD SPECIMENOrdering Facility: [facility] Address: [address] [place] [address] Performed By: #### 2 4323-8 ####[facility] MILLWNCLIA [id number] [place] [address] [place] Chloride [Moles/Vol] 104 mmol/L Normal 98-107 [facility] Comment on above: Order Comment: Speci men Type: BLOOD SPECIMENOrdering Facility: [facility] Address: [address] [place] [address] Performed By: #### 2 4323-8 ####[facility]ENTERLIA [id number] [place] [address] [place] CO2 [Moles/Vol] 20 mmol/L Low 22-30 [facility] Comment on above: Order Comment: Speci men Type: BLOOD SPECIMENOrdering Facility: [facility] Address: [address] [place] [address] Performed By: #### 2 4323-8 ####[facility] CENTERLIA [id number] [place] [address] [place] Creatinine [Mass/Vol] 0.55 mg/dL Low 0.73-1.22 [facility] Comment on above: Order Comment: Speci men Type: BLOOD SPECIMENOrdering Facility: [facility] Address: [address] [place] [address] Performed By: #### 2 4323-8 ####[facility] CENTERLIA [id number] [place] [address] [place] Creatinine and Glomerular filtration rate.predicted panel (S/P/Bld) 111 mL/min/1.73m??? Normal >=60 [facility] Comment on above: Order Comment: Speci men Type: BLOOD SPECIMENOrdering Facility: [facility] Address: [address] [place] [id number] Result Comment: Lisa mated Glomerular Filtration Rate (eGFR) is calculated using the 2020 CKD-EPI creatinine equation. This equation utilizes serum creatinine, sex, and age as parameters. The creatinine assay has traceable calibration to isotope dilution-mass spectrometry. Refer to KDIGO guidelines for clinical interpretation. In patients with unstable renal function, e.g. those with acute kidney injury, the eGFR may not accurately reflect actual GFR. Performed By: #### 2 4323-8 ####[facility] [id number] [place] [address] [place] Glucose [Mass/Vol] 98 mg/dL Normal 74-99 [facility] Comment on above: Order Comment: Katie holman Type: BLOOD SPECIMENOrdering Facility: [facility] Address: [address] [place] [address] Result Comment: The [place] Diabetes [employer] (ADA) provides guidance for cutoff values for fasting glucose and random glucose. The ADA defines fasting as no caloric intake for at least 8 hours. Fasting plasma glucose results between 100 to 125 mg/dL indicate increased risk for diabetes (prediabetes).Fasting plasma glucose results greater than or equal to 126 mg/dL meet the criteria for diagnosis of diabetes. In the absence of unequivocal hyperglycemia, results should be confirmed by repeat testing. In a patient with classic symptoms of hyperglycemia or hyperglycemic crisis, random plasma glucose results greater than or equal to 200 mg/dL meet the criteria for diagnosis of diabetes.Reference: Standards of Medical Care in Diabetes 2016, [place] [employer]. Diabetes Care. 2016.39(Suppl 1). Performed By: #### 2 4323-8 ####[facility] CENTERLI [id number] [place] [address] [place] Potassium [Moles/Vol] 3.5 mmol/L Low 3.7-5.1 [facility] Comment on above: Order Comment: Katie holman Type: BLOOD SPECIMENOrdering Facility: [facility] Address: [address] [place] [id number] Performed By: #### 2 4323-8 ####[facility] MILLWNCLIA [id number] [place] [address] [place] Protein [Mass/Vol] 6.5 g/dL Normal 6.3-8.0 [facility] Comment on above: Order Comment: Speci men Type: BLOOD SPECIMENOrdering Facility: [facility] Address: [address] [place] [address] Performed By: #### 2 4323-8 ####[facility]ENTERLIA [id number] [place] [address] [place] Sodium [Moles/Vol] 138 mmol/L Normal 136-144 [facility] Comment on above: Order Comment: Speci men Type: BLOOD SPECIMENOrdering Facility: [facility] Address: [address] [place] [address] Performed By: #### 2 4323-8 ####[facility] CENTERLIA [id number] [place] [address] [place] Urea nitrogen [Mass/Vol] 7 mg/dL Low 9-24 [facility] Comment on above: Order Comment: Speci men Type: BLOOD SPECIMENOrdering Facility: [facility] Address: [address] [place] [address] Performed By: #### 2 4323-8 ####[facility]ICAL CENTERLIA [id number] [place] [address] [place] CNCOon 11-25-2024 CNCO Letter Text Normal [facility] CNCNPATEDon 11-22-2024 CNCNPATED Normal [facility] CBC W Auto Differential pane l (Bld)on 11-21-2024 Basophils (Bld) [#/Vol] NINF [facility] Basophils/100 WBC (Bld) 0.5 % [facility] Differential cell count method Nom (Bld) Auto [facility] Eosinophils (Bld) [#/Vol] NINF [facility] Eosinophils/100 WBC (Bld) 0.5 % [facility] Erythrocyte distribution width (RBC) [Ratio] 13.5 % 11.5 - 15.0 % [facility] Hematocrit (Bld) [Volume fraction] 31.8 % Low 39.0 - 51.0 % [facility] Hemoglobin (Bld) [Mass/Vol] 10.3 g/dL Low 13.0 - 17.0 g/dL [facility] Immature granulocytes (Bld) [#/Vol] 0.06 10*3/uL [facility] Immature granulocytes/100 WBC (Bld) 1.5 % [facility] Interpretation and review of laboratory results Abnormal [facility] Lymphocytes (Bld) [#/Vol] 1.58 10*3/uL [facility] Lymphocytes/100 WBC (Bld) 40.5 % [facility] MCH (RBC) [Entitic mass] 29.3 pg 26.0 - 34.0 pg [facility] MCHC (RBC) [Mass/Vol] 32.4 g/dL 30.5 - 36.0 g/dL [facility] MCV (RBC) [Entitic vol] 90.3 fL 80.0 - 100.0 fL [facility] Monocytes (Bld) [#/Vol] 1.09 10*3/uL High [facility] Monocytes/100 WBC (Bld) 27.9 % [facility] Neutrophils (Bld) [#/Vol] 1.13 10*3/uL Low [facility] Neutrophils/100 WBC (Bld) 29.1 % [facility] Nucleated RBC (Bld) [#/Vol] [facility] Nucleated RBC/100 WBC (Bld) [Ratio] 0 % /100 WBC [facility] Platelet mean volume (Bld) [Entitic vol] 9.3 fL 9.0 - 12.7 fL [facility] Platelets (Bld) [#/Vol] 310 10*3/uL [facility] RBC (Bld) [#/Vol] 3.52 10*6/uL Low 4.20 - 6.00 m/uL [facility] WBC (Bld) [#/Vol] 3.9 10*3/uL [facility] Basophils (Bld) [#/Vol] 10*3/uL Normal <0.11 [facility] Comment on above: Order Comment: Speci men Type: BLOOD SPECIMENOrdering Facility: [facility] Address: [address] [place] [address] Performed By: #### 5 7021-8 ####[facility] MILLTOWNCLIA [id number] [place] [address] [place] Basophils/100 WBC (Bld) 0.5 % Normal [facility] Comment on above: Order Comment: Speci men Type: BLOOD SPECIMENOrdering Facility: [facility] Address: [address] [place] [address] Performed By: #### 5 7021-8 ####[facility] MILLWNCLIA [id number] [place] [address] [place] Differential cell count method Nom (Bld) Auto Normal [facility] Comment on above: Order Comment: Speci men Type: BLOOD SPECIMENOrdering Facility: [facility] Address: [address] [place] [address] Performed By: #### 5 7021-8 ####[facility] MILLTOWNCLIA [id number] [place] [address] [place] Eosinophils (Bld) [#/Vol] 10*3/uL Normal <0.46 [facility] Comment on above: Order Comment: Speci men Type: BLOOD SPECIMENOrdering Facility: [facility] Address: [address] [place] [address] Performed By: #### 5 7021-8 ####[facility] MILLTOWNCLIA [id number] [place] [address] [place] Eosinophils/100 WBC (Bld) 0.5 % Normal [facility] Comment on above: Order Comment: Speci men Type: BLOOD SPECIMENOrdering Facility: [facility] Address: [address] [place] [address] Performed By: #### 5 7021-8 ####[facility] MILLTOWNCLIA [id number] [place] [address] [place] Erythrocyte distribution width (RBC) [Ratio] 13.5 % Normal 11.5-15.0 [facility] Comment on above: Order Comment: Speci men Type: BLOOD SPECIMENOrdering Facility: [facility] Address: [address] [place] [address] Performed By: #### 5 7021-8 ####[facility] COUNTYCARLOSMOAB REGIONAL [facility]ITAL [id number] [place] [address] [place] Hematocrit (Bld) [Volume fraction] 31.8 % Low 39.0-51.0 [facility] Comment on above: Order Comment: Speci men Type: BLOOD SPECIMENOrdering Facility: [facility] Address: [address] [place] [address] Performed By: #### 5 7021-8 ####[facility] CLAY COUNTYCARLOSSebastian [id number] [place] [address] [place] Hemoglobin (Bld) [Mass/Vol] 10.3 g/dL Low 13.0-17.0 [facility] Comment on above: Order Comment: Speci men Type: BLOOD SPECIMENOrdering Facility: [facility] Address: [address] [place] [address] Performed By: #### 5 7021-8 ####[facility] CLAY COUNTYPALOMA [id number] [place] [address] [place] Immature granulocytes (Bld) [#/Vol] 0.06 10*3/uL Normal <0.10 [facility] Comment on above: Order Comment: Speci men Type: BLOOD SPECIMENOrdering Facility: [facility] Address: [address] [place] [address] Performed By: #### 5 7021-8 ####[facility] C[facility] COUNTYNCLIA [id number] [place] [address] [place] Immature granulocytes/100 WBC (Bld) 1.5 % Normal [facility] Comment on above: Order Comment: Speci men Type: BLOOD SPECIMENOrdering Facility: [facility] Address: [address] [place] [address] Performed By: #### 5 7021-8 ####[facility] CENTERLIA [id number] [place] [address] [place] Lymphocytes (Bld) [#/Vol] 1.58 10*3/uL Normal 1.00-4.00 [facility] Comment on above: Order Comment: Speci men Type: BLOOD SPECIMENOrdering Facility: [facility] Address: [address] [place] [address] Performed By: #### 5 7021-8 ####[facility] [id number] [place] [address] [place] Lymphocytes/100 WBC (Bld) 40.5 % Normal [facility] Comment on above: Order Comment: Speci men Type: BLOOD SPECIMENOrdering Facility: [facility] Address: [address] [place] [address] Performed By: #### 5 7021-8 ####[facility] [id number] [place] [address] [place] MCH (RBC) [Entitic mass] 29.3 pg Normal 26.0-34.0 [facility] Comment on above: Order Comment: Speci men Type: BLOOD SPECIMENOrdering Facility: [facility] Address: [address] [place] [address] Performed By: #### 5 7021-8 ####[facility] [id number] [place] [address] [place] MCHC (RBC) [Mass/Vol] 32.4 g/dL Normal 30.5-36.0 [facility] Comment on above: Order Comment: Speci men Type: BLOOD SPECIMENOrdering Facility: [facility] Address: [address] [place] [address] Performed By: #### 5 7021-8 ####[facility] NORRISThaniaNCLIA [id number] [place] [address] [place] MCV (RBC) [Entitic vol] 90.3 fL Normal 80.0-100.0 [facility] Comment on above: Order Comment: Speci men Type: BLOOD SPECIMENOrdering Facility: [facility] Address: [address] [place] [address] Performed By: #### 5 7021-8 ####[facility] CLAY COUNTYNCA [id number] [place] [address] [place] Monocytes (Bld) [#/Vol] 1.09 10*3/uL High <0.87 [facility] Comment on above: Order Comment: Speci men Type: BLOOD SPECIMENOrdering Facility: [facility] Address: [address] [place] [address] Performed By: #### 5 7021-8 ####[facility] CLAY COUNTYNCA [id number] [place] [address] [place] Monocytes/100 WBC (Bld) 27.9 % Normal [facility] Comment on above: Order Comment: Speci men Type: BLOOD SPECIMENOrdering Facility: [facility] Address: [address] [place] [address] Performed By: #### 5 7021-8 ####[facility] C[facility] COUNTYNCLIA [id number] [place] [address] [place] Neutrophils (Bld) [#/Vol] 1.13 10*3/uL Low 1.45-7.50 [facility] Comment on above: Order Comment: Speci men Type: BLOOD SPECIMENOrdering Facility: [facility] Address: [address] [place] [address] Performed By: #### 5 7021-8 ####[facility] C[facility] COUNTYNCA [id number] [place] [address] [place] Neutrophils/100 WBC (Bld) 29.1 % Normal [facility] Comment on above: Order Comment: Speci men Type: BLOOD SPECIMENOrdering Facility: [facility] Address: [address] [place] [address] Performed By: #### 5 7021-8 ####[facility] [id number] [place] [address] [place] Nucleated RBC (Bld) [#/Vol] 10*3/uL Normal <0.01 [facility] Comment on above: Order Comment: Speci men Type: BLOOD SPECIMENOrdering Facility: [facility] Address: [address] [place] [address] Performed By: #### 5 7021-8 ####[facility] [id number] [place] [address] [place] Nucleated RBC/100 WBC (Bld) [Ratio] 0.0 /100 WBC Normal [facility] Comment on above: Order Comment: Speci men Type: BLOOD SPECIMENOrdering Facility: [facility] Address: [address] [place] [address] Performed By: #### 5 7021-8 ####[facility] CENTERJOIE [id number] [place] [address] [place] Platelet mean volume (Bld) [Entitic vol] 9.3 fL Normal 9.0-12.7 [facility] Comment on above: Order Comment: Speci men Type: BLOOD SPECIMENOrdering Facility: [facility] Address: [address] [place] [address] Performed By: #### 5 7021-8 ####[facility] C[facility] COUNTYNCLI [id number] [place] [address] [place] Platelets (Bld) [#/Vol] 310 10*3/uL Normal 150-400 [facility] Comment on above: Order Comment: Speci men Type: BLOOD SPECIMENOrdering Facility: [facility] Address: [address] [place] [address] Performed By: #### 5 7021-8 ####[facility] GORDAWNCLIA [id number] [place] [address] [place] RBC (Bld) [#/Vol] 3.52 10*6/uL Low 4.20-6.00 [facility] Comment on above: Order Comment: Speci men Type: BLOOD SPECIMENOrdering Facility: [facility] Address: [address] [place] [address] Performed By: #### 5 7021-8 ####[facility] C[facility] COUNTYNCLIA [id number] [place] [address] [place] WBC (Bld) [#/Vol] 3.90 10*3/uL Normal 3.70-11.00 [facility] Comment on above: Order Comment: Speci men Type: BLOOD SPECIMENOrdering Facility: [facility] Address: [address] [place] [address] Performed By: #### 5 7021-8 ####[facility] C[facility] COUNTYNCLIA [id number] [place] [address] [place] CNOVon 11-21-2024 CNOV Normal [facility] CNOVSPon 11-21-2024 CNOVSP Normal [facility] CNPNon 11-21-2024 CNPN Normal [facility] Comprehensive metabolic 2000 panelOrdered By: Stephanie Smith on 11-21-2024 Albumin [Mass/Vol] 3.9 g/dL 3.9 - 4.9 g/dL [facility] ALP [Catalytic activity/Vol] 93 U/L 38 - 113 U/L [facility] ALT [Catalytic activity/Vol] 29 U/L 10 - 54 U/L [facility] Anion gap [Moles/Vol] 9 mmol/L 8 - 15 mmol/L [facility] AST [Catalytic activity/Vol] 17 U/L 14 - 40 U/L [facility] Bilirubin [Mass/Vol] 0.4 mg/dL 0.2 - 1 .3 mg/dL [facility] Calcium [Mass/Vol] 9.3 mg/dL 8.5 - 10. 2 mg/dL [facility] Chloride [Moles/Vol] 104 mmol/L 98 - 10 7 mmol/L [facility] CO2 [Moles/Vol] 27 mmol/L 22 - 30 mmol/L [facility] Creatinine [Mass/Vol] 0.66 mg/dL Low 0.73 - 1.22 mg/dL [facility] GFR/1.73 sq M.predicted among non-blacks MDRD (S/P/Bld) [Vol rate/Area] 105 mL/min/{1.73_m2} - PINF [facility] Comment on above: Estimated Glomerular Filtration Rate (eGFR) is calculated using the 2020 CKD-EPI creatinine equation. This equation utilizes serum creatinine, sex, and age as parameters. The creatinine assay has traceable calibration to isotope dilution-mass spectrometry. Refer to KDIGO guidelines for clinical interpretation. In patients with unstable renal function, e.g. those with acute kidney injury, the eGFR may not accurately reflect actual GFR. Glucose [Mass/Vol] 99 mg/dL 74 - 99 mg/dL [facility] Comment on above: The [place] [employer] [employer] (ADA) provides guidance for cutoff values for fasting glucose and random glucose. The ADA defines fasting as no caloric intake for at least 8 hours. Fasting plasma glucose results between 100 to 125 mg/dL indicate increased risk for diabetes (prediabetes). Fasting plasma glucose results greater than or equal to 126 mg/dL meet the criteria for diagnosis of diabetes. In the absence of unequivocal hyperglycemia, results should be confirmed by repeat testing. In a patient with classic symptoms of hyperglycemia or hyperglycemic crisis, random plasma glucose results greater than or equal to 200 mg/dL meet the criteria for diagnosis of diabetes. Reference: Standards of Medical Care in Diabetes 2016, [place] [employer]. Diabetes Care. 2016.39(Suppl 1). Interpretation and review of laboratory results Abnormal [facility] Potassium [Moles/Vol] 3.4 mmol/L Low 3.7 - 5.1 mmol/L [facility] Protein [Mass/Vol] 6.5 g/dL 6.3 - 8.0 g/dL [facility] Sodium [Moles/Vol] 140 mmol/L 136 - 144 mmol/L [facility] Urea nitrogen [Mass/Vol] 5 mg/dL Low 9 - 24 mg/dL [facility] Comprehensive metabolic 2000 panelon 11-21-2024 Albumin [Mass/Vol] 3.9 g/dL Normal 3.9-4.9 [facility] Comment on above: Order Comment: Speci men Type: BLOOD SPECIMENOrdering Facility: [facility] Address: [address] [place] [address] Performed By: #### 2 4323-8 ####[facility] MILLTOWNCLIA [id number] [place] [address] [place] ALP [Catalytic activity/Vol] 93 U/L Normal 38-113 [facility] Comment on above: Order Comment: Speci men Type: BLOOD SPECIMENOrdering Facility: [facility] Address: [address] [place] [address] Performed By: #### 2 4323-8 ####[facility] MILLWNCLIA [id number] [place] [address] [place] ALT [Catalytic activity/Vol] 29 U/L Normal 10-54 [facility] Comment on above: Order Comment: Speci men Type: BLOOD SPECIMENOrdering Facility: [facility] Address: [address] [place] [address] Performed By: #### 2 4323-8 ####[facility] MILLTOWNCLIA [id number] [place] [address] [place] Anion gap [Moles/Vol] 9 mmol/L Normal 8-15 [facility] Comment on above: Order Comment: Speci men Type: BLOOD SPECIMENOrdering Facility: [facility] Address: [address] [place] [address] Performed By: #### 2 4323-8 ####[facility] MILLTOWNCLIA [id number] [place] [address] [place] AST [Catalytic activity/Vol] 17 U/L Normal 14-40 [facility] Comment on above: Order Comment: Speci men Type: BLOOD SPECIMENOrdering Facility: [facility] Address: [address] [place] [address] Performed By: #### 2 4323-8 ####[facility] GORDAWNCLIA [id number] [place] [address] [place] Bilirubin [Mass/Vol] 0.4 mg/dL Normal 0.2-1.3 [facility] Comment on above: Order Comment: Speci men Type: BLOOD SPECIMENOrdering Facility: [facility] Address: [address] [place] [address] Performed By: #### 2 4323-8 ####[facility] COUNTYNCLIA [id number] [place] [address] [place] Calcium [Mass/Vol] 9.3 mg/dL Normal 8.5-10.2 [facility] Comment on above: Order Comment: Speci men Type: BLOOD SPECIMENOrdering Facility: [facility] Address: [address] [place] [address] Performed By: #### 2 4323-8 ####[facility] COUNTYNCLIA [id number] [place] [address] [place] Chloride [Moles/Vol] 104 mmol/L Normal 98-107 [facility] Comment on above: Order Comment: Speci men Type: BLOOD SPECIMENOrdering Facility: [facility] Address: [address] [place], [place] [address] Performed By: #### 2 4323-8 ####[facility] COUNTYNCLIA [id number] [place] [address] [place] CO2 [Moles/Vol] 27 mmol/L Normal 22-30 [facility] Comment on above: Order Comment: Speci men Type: BLOOD SPECIMENOrdering Facility: [facility] Address: [address] [place] [address] Performed By: #### 2 4323-8 ####[facility] NORRISBALATONNCMOAB [facility] [id number] [place] [address] [place] Creatinine [Mass/Vol] 0.66 mg/dL Low 0.73-1.22 [facility] Comment on above: Order Comment: Speci men Type: BLOOD SPECIMENOrdering Facility: [facility] Address: [address] [place] [address] Performed By: #### 2 4323-8 ####[facility] C[facility] COUNTYNCLI [id number] [place] [address] [place] Creatinine and Glomerular filtration rate.predicted panel (S/P/Bld) 105 mL/min/1.73m??? Normal >=60 [facility] Comment on above: Order Comment: Speci men Type: BLOOD SPECIMENOrdering Facility: [facility] Address: [address] [place] [address] Result Comment: Lisa mated Glomerular Filtration Rate (eGFR) is calculated using the 2020 CKD-EPI creatinine equation. This equation utilizes serum creatinine, sex, and age as parameters. The creatinine assay has traceable calibration to isotope dilution-mass spectrometry. Refer to KDIGO guidelines for clinical interpretation. In patients with unstable renal function, e.g. those with acute kidney injury, the eGFR may not accurately reflect actual GFR. Performed By: #### 2 4323-8 ####[facility] CLAY COUNTYNCLIA [id number] [place] [address] [place] Glucose [Mass/Vol] 99 mg/dL Normal 74-99 [facility] Comment on above: Order Comment: Speci men Type: BLOOD SPECIMENOrdering Facility: [facility] Address: [address] [place] [address] Result Comment: The [place] [employer] (ADA) provides guidance for cutoff values for fasting glucose and random glucose. The ADA defines fasting as no caloric intake for at least 8 hours. Fasting plasma glucose results between 100 to 125 mg/dL indicate increased risk for diabetes (prediabetes).Fasting plasma glucose results greater than or equal to 126 mg/dL meet the criteria for diagnosis of diabetes. In the absence of unequivocal hyperglycemia, results should be confirmed by repeat testing. In a patient with classic symptoms of hyperglycemia or hyperglycemic crisis, random plasma glucose results greater than or equal to 200 mg/dL meet the criteria for diagnosis of diabetes.Reference: Standards of Medical Care in Diabetes 2016, [place] [employer]. Diabetes Care. 2016.39(Suppl 1). Performed By: #### 2 4323-8 ####[facility] CENTERLIA [id number] [place] [address] [place] Potassium [Moles/Vol] 3.4 mmol/L Low 3.7-5.1 [facility] Comment on above: Order Comment: Speci men Type: BLOOD SPECIMENOrdering Facility: [facility] Address: [address] [place] [address] Performed By: #### 2 4323-8 ####[facility] CENTERLIA [id number] [place] [address] [place] Protein [Mass/Vol] 6.5 g/dL Normal 6.3-8.0 [facility] Comment on above: Order Comment: Katie holman Type: BLOOD SPECIMENOrdering Facility: [facility] Address: [address] [place] [address] Performed By: #### 2 4323-8 ####[facility] CENTERLIA [id number] [place] [address] [place] Sodium [Moles/Vol] 140 mmol/L Normal 136-144 [facility] Comment on above: Order Comment: lAeshai men Type: BLOOD SPECIMENOrdering Facility: [facility] Address: [address] [id number] Performed By: #### 2 4323-8 ####[facility] CENTERLIA [id number] [place] [address] [place] Urea nitrogen [Mass/Vol] 5 mg/dL Low 9-24 [facility] Comment on above: Order Comment: Katie holman Type: BLOOD SPECIMENOrdering Facility: [facility] Address: [address] [place] [address] Performed By: #### 2 4323-8 ####[facility] PISANOOAKLAWN PSYCHIATRIC CENTERJOIE [id number] [place] [address] [place] PT panel Coag (PPP)on 2024 INR Coag (PPP) [Relative time] 1 {INR} 0.9 - 1.3 [facility] Comment on above: Vitamin K Antagonist (VKA) Therapeutic Range: INR 2 to 3 (Target INR of 2.5) Note: For patients treated with VKA drugs, such as warfarin, the [place] [employer] 2012 Guideline recommends a therapeutic INR range of 2 to 3 (target INR of 2.5). This recommendation includes high-risk patients with antiphospholipid syndrome with previous arterial or venous thromboembolism, current-generation mechanical or bioprosthetic aortic heart valve replacement. Note: Patients with mechanical aortic valve replacement and additional risk factors for thromboembolic events (atrial fibrillation, previous thromboembolism, LV dysfunction, hypercoagulable conditions) or an older generation mechanical AVR (i.e., ball in-Cage) or any mechanical MVR should have a INR therapeutic range of 2.5 to 3.5 (target INR of 3). Willow GH, et al. Chest 2012, 141:7S-47S Maggie RA, et al. [facility] 2017, 70: 252-289 Interpretation and review of laboratory results Normal [facility] PT Coag (PPP) [Time] 10.8 s NINF [facility] INR Coag (PPP) [Relative time] 1.0 {INR} Normal 0.9-1.3 [facility] Comment on above: Order Comment: Katie holman Type: BLOOD SPECIMENOrdering Facility: [facility] Address: [address] [place], [place] [address] [address] Result Comment: Olivia min K Antagonist (VKA) Therapeutic Range: INR 2 to 3 (Target INR of 2.5)Note: For patients treated with VKA drugs, such as warfarin, the [place] [employer] 2012 Guideline recommends a therapeutic INR range of 2 to 3 (target INR of 2.5). This recommendation includes high-risk patients with antiphospholipid syndrome with previous arterial or venous thromboembolism, current-generation mechanical or bioprosthetic aortic heart valve replacement.Note: Patients with mechanical aortic valve replacement and additional risk factors for thromboembolic events (atrial fibrillation, previous thromboembolism, LV dysfunction, hypercoagulable conditions) or an older generation mechanical AVR (i.e., ball in-Cage) or any mechanical MVR should have a INR therapeutic range of 2.5 to 3.5 (target INR of 3).Willow GH, et al. Chest 2012, 141:7S-47SNishimura RA, et al. [facility] 2017, 70: 252-289 Performed By: #### 3 4528-0 ####[facility] [id number] [place] [address] [place] PT Coag (PPP) [Time] 10.8 s Normal <13.1 [facility] Comment on above: Order Comment: Speci men Type: BLOOD SPECIMENOrdering Facility: [facility] Address: [address] [place] [address] Performed By: #### 3 4528-0 ####[facility] [id number] [place] [address] [place] CNPNon 11-16-2024 CNPN Normal [facility] CNPNon 11-09-2024 CNPN Normal [facility] ACTIVATED PARTIAL THROMBOPLA STIN TIMEon 11-07-2024 aPTT Coag (PPP) [Time] 25.3 s [facility] CBC W Auto Differential pane l (Bld)on 11-07-2024 Basophils (Bld) [#/Vol] NINF [facility] Basophils/100 WBC (Bld) 0.2 % [facility] Differential cell count method Nom (Bld) Auto [facility] Eosinophils (Bld) [#/Vol] 0.12 10*3/uL NINF [facility] Eosinophils/100 WBC (Bld) 2 % [facility] Erythrocyte distribution width (RBC) [Ratio] 13.9 % 11.5 - 15.0 % [facility] Hematocrit (Bld) [Volume fraction] 30.9 % Low 39.0 - 51.0 % [facility] Hemoglobin (Bld) [Mass/Vol] 10.3 g/dL Low 13.0 - 17.0 g/dL [facility] Immature granulocytes (Bld) [#/Vol] NINF [facility] Immature granulocytes/100 WBC (Bld) 0.2 % [facility] Interpretation and review of laboratory results Abnormal [facility] Lymphocytes (Bld) [#/Vol] 1.33 10*3/uL [facility] Lymphocytes/100 WBC (Bld) 22.7 % [facility] MCH (RBC) [Entitic mass] 30.6 pg 26.0 - 34.0 pg [facility] MCHC (RBC) [Mass/Vol] 33.3 g/dL 30.5 - 36.0 g/dL [facility] MCV (RBC) [Entitic vol] 91.7 fL 80.0 - 100.0 fL [facility] Monocytes (Bld) [#/Vol] 0.62 10*3/uL NINF [facility] Monocytes/100 WBC (Bld) 10.6 % [facility] Neutrophils (Bld) [#/Vol] 3.78 10*3/uL [facility] Neutrophils/100 WBC (Bld) 64.3 % [facility] Nucleated RBC (Bld) [#/Vol] NINF [facility] Nucleated RBC/100 WBC (Bld) [Ratio] 0 % /100 WBC [facility] Platelet mean volume (Bld) [Entitic vol] 9.2 fL 9.0 - 12.7 fL [facility] Platelets (Bld) [#/Vol] 297 10*3/uL [facility] RBC (Bld) [#/Vol] 3.37 10*6/uL Low 4.20 - 6.00 m/uL [facility] WBC (Bld) [#/Vol] 5.87 10*3/uL [facility] Basophils (Bld) [#/Vol] 10*3/uL Normal <0.11 [facility] Comment on above: Order Comment: Speci men Type: BLOOD SPECIMENOrdering Facility: [facility] Address: [address] [place] [address] Performed By: #### 5 7021-8 ####[facility] NORRISWNCLIA [id number] [place] [address] [place] Basophils/100 WBC (Bld) 0.2 % Normal [facility] Comment on above: Order Comment: Speci men Type: BLOOD SPECIMENOrdering Facility: [facility] Address: [address] [place] [address] Performed By: #### 5 7021-8 ####[facility]ENTER[facility] [id number] [place] [address] [place] Differential cell count method Nom (Bld) Auto Normal [facility] Comment on above: Order Comment: Speci men Type: BLOOD SPECIMENOrdering Facility: [facility] Address: [address] [place] [address] Performed By: #### 5 7021-8 ####[facility]ENTERLIA [id number] [place] [address] [place] Eosinophils (Bld) [#/Vol] 0.12 10*3/uL Normal <0.46 [facility] Comment on above: Order Comment: Speci men Type: BLOOD SPECIMENOrdering Facility: [facility] Address: [address] [place] [address] Performed By: #### 5 7021-8 ####[facility]ENTERLIA [id number] [place] [address] [place] Eosinophils/100 WBC (Bld) 2.0 % Normal [facility] Comment on above: Order Comment: Speci men Type: BLOOD SPECIMENOrdering Facility: [facility] Address: [address] [place] [address] Performed By: #### 5 7021-8 ####[facility]ENTERL[facility] [id number] [place] [address] [place] Erythrocyte distribution width (RBC) [Ratio] 13.9 % Normal 11.5-15.0 [facility] Comment on above: Order Comment: Speci men Type: BLOOD SPECIMENOrdering Facility: [facility] Address: [address] [place] [address] Performed By: #### 5 7021-8 ####[facility] [id number] [place] [address] [place] Hematocrit (Bld) [Volume fraction] 30.9 % Low 39.0-51.0 [facility] Comment on above: Order Comment: Speci men Type: BLOOD SPECIMENOrdering Facility: [facility] Address: [address] [place] [address] Performed By: #### 5 7021-8 ####[facility] [id number] [place] [address] [place] Hemoglobin (Bld) [Mass/Vol] 10.3 g/dL Low 13.0-17.0 [facility] Comment on above: Order Comment: Speci men Type: BLOOD SPECIMENOrdering Facility: [facility] Address: [address] [place] [address] Performed By: #### 5 7021-8 ####[facility] [id number] [place] [address] [place] Immature granulocytes (Bld) [#/Vol] 10*3/uL Normal <0.10 [facility] Comment on above: Order Comment: Speci men Type: BLOOD SPECIMENOrdering Facility: [facility] Address: [address] [place] [address] Performed By: #### 5 7021-8 ####[facility] CLAY COUNTYNCLI [id number] [place] [address] [place] Immature granulocytes/100 WBC (Bld) 0.2 % Normal [facility] Comment on above: Order Comment: Speci men Type: BLOOD SPECIMENOrdering Facility: [facility] Address: [address] [place] [address] Performed By: #### 5 7021-8 ####[facility] NORRISBALATONLMA [id number] [place] [address] [place] Lymphocytes (Bld) [#/Vol] 1.33 10*3/uL Normal 1.00-4.00 [facility] Comment on above: Order Comment: Speci men Type: BLOOD SPECIMENOrdering Facility: [facility] Address: [address] [place] [address] Performed By: #### 5 7021-8 ####[facility] COUNTYCARLOSMOAB [facility] [id number] [place] [address] [place] Lymphocytes/100 WBC (Bld) 22.7 % Normal [facility] Comment on above: Order Comment: Speci men Type: BLOOD SPECIMENOrdering Facility: [facility] Address: [address] [place] [address] Performed By: #### 5 7021-8 ####[facility] CLAY COUNTYPALOMA [id number] [place] [address] [place] MCH (RBC) [Entitic mass] 30.6 pg Normal 26.0-34.0 [facility] Comment on above: Order Comment: Speci men Type: BLOOD SPECIMENOrdering Facility: [facility] Address: [address] [place] [address] Performed By: #### 5 7021-8 ####[facility] CLAY COUNTYNCLIA [id number] [place] [address] [place] MCHC (RBC) [Mass/Vol] 33.3 g/dL Normal 30.5-36.0 [facility] Comment on above: Order Comment: Speci men Type: BLOOD SPECIMENOrdering Facility: [facility] Address: [address] [place] [address] Performed By: #### 5 7021-8 ####[facility] NORRISWNCLIA [id number] [place] [address] [place] MCV (RBC) [Entitic vol] 91.7 fL Normal 80.0-100.0 [facility] Comment on above: Order Comment: Speci men Type: BLOOD SPECIMENOrdering Facility: [facility] Address: [address] [place] [address] Performed By: #### 5 7021-8 ####[facility]ENTERLIA [id number] [place] [address] [place] Monocytes (Bld) [#/Vol] 0.62 10*3/uL Normal <0.87 [facility] Comment on above: Order Comment: Speci men Type: BLOOD SPECIMENOrdering Facility: [facility] Address: [address] [place] [address] Performed By: #### 5 7021-8 ####[facility] [id number] [place] [address] [place] Monocytes/100 WBC (Bld) 10.6 % Normal [facility] Comment on above: Order Comment: Speci men Type: BLOOD SPECIMENOrdering Facility: [facility] Address: [address] [place] [address] Performed By: #### 5 7021-8 ####[facility]ENTERLIA [id number] [place] [address] [place] Neutrophils (Bld) [#/Vol] 3.78 10*3/uL Normal 1.45-7.50 [facility] Comment on above: Order Comment: Speci men Type: BLOOD SPECIMENOrdering Facility: [facility] Address: [address] [place] [address] Performed By: #### 5 7021-8 ####[facility] CLAY COUNTYNCLIA [id number] [place] [address] [place] Neutrophils/100 WBC (Bld) 64.3 % Normal [facility] Comment on above: Order Comment: Speci men Type: BLOOD SPECIMENOrdering Facility: [facility] Address: [address] [place] [address] Performed By: #### 5 7021-8 ####[facility] [id number] [place] [address] [place] Nucleated RBC (Bld) [#/Vol] 10*3/uL Normal <0.01 [facility] Comment on above: Order Comment: Speci men Type: BLOOD SPECIMENOrdering Facility: [facility] Address: [address] [place] [address] Performed By: #### 5 7021-8 ####[facility] [id number] [place] [address] [place] Nucleated RBC/100 WBC (Bld) [Ratio] 0.0 /100 WBC Normal [facility] Comment on above: Order Comment: Speci men Type: BLOOD SPECIMENOrdering Facility: [facility] Address: [address] [place] [address] Performed By: #### 5 7021-8 ####[facility] [id number] [place] [address] [place] Platelet mean volume (Bld) [Entitic vol] 9.2 fL Normal 9.0-12.7 [facility] Comment on above: Order Comment: Speci men Type: BLOOD SPECIMENOrdering Facility: [facility] Address: [address] [place] [address] Performed By: #### 5 7021-8 ####[facility] [id number] [place] [address] [place] Platelets (Bld) [#/Vol] 297 10*3/uL Normal 150-400 [facility] Comment on above: Order Comment: Speci men Type: BLOOD SPECIMENOrdering Facility: [facility] Address: [address] [place] [address] Performed By: #### 5 7021-8 ####[facility] NORRISBALATONNCLIA [id number] [place] [address] [place] RBC (Bld) [#/Vol] 3.37 10*6/uL Low 4.20-6.00 [facility] Comment on above: Order Comment: Speci men Type: BLOOD SPECIMENOrdering Facility: [facility] Address: [address] [place] [address] Performed By: #### 5 7021-8 ####[facility] CLAY COUNTYNCLIA [id number] [place] [address] [place] WBC (Bld) [#/Vol] 5.87 10*3/uL Normal 3.70-11.00 [facility] Comment on above: Order Comment: Speci men Type: BLOOD SPECIMENOrdering Facility: [facility] Address: [address] [place] [address] Performed By: #### 5 7021-8 ####[facility] CLAY COUNTYNCLIA [id number] [place] [address] [place] CNPNon 11-07-2024 CNPN Normal [facility] metabolic 2000 panelOrdered By: Daisy Luis on 11-07-2024 Albumin [Mass/Vol] 3.8 g/dL Low 3.9 - 4.9 g/dL [facility] ALP [Catalytic activity/Vol] 92 U/L 38 - 113 U/L [facility] ALT [Catalytic activity/Vol] 26 U/L 10 - 54 U/L [facility] Anion gap [Moles/Vol] 8 mmol/L 8 - 15 mmol/L [facility] AST [Catalytic activity/Vol] 16 U/L 14 - 40 U/L [facility] Bilirubin [Mass/Vol] 0.6 mg/dL 0.2 - 1 .3 mg/dL [facility] Calcium [Mass/Vol] 9.3 mg/dL 8.5 - 10. 2 mg/dL [facility] Chloride [Moles/Vol] 106 mmol/L 98 - 10 7 mmol/L [facility] CO2 [Moles/Vol] 26 mmol/L 22 - 30 mmol/L [facility] Creatinine [Mass/Vol] 0.71 mg/dL Low 0.73 - 1.22 mg/dL [facility] GFR/1.73 sq M.predicted among non-blacks MDRD (S/P/Bld) [Vol rate/Area] 102 mL/min/{1.73_m2} - PINF [facility] Comment on above: Estimated Glomerular Filtration Rate (eGFR) is calculated using the 2020 CKD-EPI creatinine equation. This equation utilizes serum creatinine, sex, and age as parameters. The creatinine assay has traceable calibration to isotope dilution-mass spectrometry. Refer to KDIGO guidelines for clinical interpretation. In patients with unstable renal function, e.g. those with acute kidney injury, the eGFR may not accurately reflect actual GFR. Glucose [Mass/Vol] 106 mg/dL High 74 - 99 mg/dL [facility] Comment on above: The [place] [employer] [place] [employer] (ADA) provides guidance for cutoff values for fasting glucose and random glucose. The ADA defines fasting as no caloric intake for at least 8 hours. Fasting plasma glucose results between 100 to 125 mg/dL indicate increased risk for diabetes (prediabetes). Fasting plasma glucose results greater than or equal to 126 mg/dL meet the criteria for diagnosis of diabetes. In the absence of unequivocal hyperglycemia, results should be confirmed by repeat testing. In a patient with classic symptoms of hyperglycemia or hyperglycemic crisis, random plasma glucose results greater than or equal to 200 mg/dL meet the criteria for diagnosis of diabetes. Reference: Standards of Medical Care in Diabetes 2016, [place] [employer]. Diabetes Care. 2016.39(Suppl 1). Interpretation and review of laboratory results Abnormal [facility] Potassium [Moles/Vol] 4 mmol/L 3.7 - 5.1 mmol/L [facility] Protein [Mass/Vol] 6.1 g/dL Low 6.3 - 8.0 g/dL [facility] Sodium [Moles/Vol] 140 mmol/L 136 - 144 mmol/L [facility] Urea nitrogen [Mass/Vol] 9 mg/dL 9 - 24 mg/dL [facility] Comprehensive metabolic 2000 panelon 11-07-2024 Albumin [Mass/Vol] 3.8 g/dL Low 3.9-4.9 [facility] Comment on above: Order Comment: Speci men Type: BLOOD SPECIMENOrdering Facility: [facility] Address: [address] [place] [address] Performed By: #### 2 4323-8 ####[facility] CHRISNORTHEASTERN VERMONT REGIONAL HOSPITALWINLIA [id number] [place] [address] [place] ALP [Catalytic activity/Vol] 92 U/L Normal 38-113 [facility] Comment on above: Order Comment: Speci men Type: BLOOD SPECIMENOrdering Facility: [facility] Address: [address] [place] [address] Performed By: #### 2 4323-8 ####[facility]ENTERLIA [id number] [place] [address] [place] ALT [Catalytic activity/Vol] 26 U/L Normal 10-54 [facility] Comment on above: Order Comment: Speci men Type: BLOOD SPECIMENOrdering Facility: [facility] Address: [address] [place] [address] Performed By: #### 2 4323-8 ####[facility] CLAY COUNTYNCLIA [id number] [place] [address] [place] Anion gap [Moles/Vol] 8 mmol/L Normal 8-15 [facility] Comment on above: Order Comment: Speci men Type: BLOOD SPECIMENOrdering Facility: [facility] Address: [address] [place] [address] Performed By: #### 2 4323-8 ####[facility]ENTERLIA [id number] [place] [address] [place] AST [Catalytic activity/Vol] 16 U/L Normal 14-40 [facility] Comment on above: Order Comment: Speci men Type: BLOOD SPECIMENOrdering Facility: [facility] Address: [address] [place] [address] Performed By: #### 2 4323-8 ####[facility] MILLTOWNCLIA [id number] [place] [address] [place] Bilirubin [Mass/Vol] 0.6 mg/dL Normal 0.2-1.3 [facility] Comment on above: Order Comment: Speci men Type: BLOOD SPECIMENOrdering Facility: [facility] Address: [address] [place] [address] Performed By: #### 2 4323-8 ####[facility] MILLTOWNCLIA [id number] [place] [address] [place] Calcium [Mass/Vol] 9.3 mg/dL Normal 8.5-10.2 [facility] Comment on above: Order Comment: Speci men Type: BLOOD SPECIMENOrdering Facility: [facility] Address: [address] [place] [address] Performed By: #### 2 4323-8 ####[facility] MILLWNCLIA [id number] [place] [address] [place] Chloride [Moles/Vol] 106 mmol/L Normal 98-107 [facility] Comment on above: Order Comment: Speci men Type: BLOOD SPECIMENOrdering Facility: [facility] Address: [address] [place] [address] Performed By: #### 2 4323-8 ####[facility] MILLTOWNCLIA [id number] [place] [address] [place] CO2 [Moles/Vol] 26 mmol/L Normal 22-30 [facility] Comment on above: Order Comment: Speci men Type: BLOOD SPECIMENOrdering Facility: [facility] Address: [address] [place] [address] Performed By: #### 2 4323-8 ####[facility] MILLTOWNCLIA [id number] [place] [address] [place] Creatinine [Mass/Vol] 0.71 mg/dL Low 0.73-1.22 [facility] Comment on above: Order Comment: Katie holman Type: BLOOD SPECIMENOrdering Facility: [facility] Address: [address] [place] [address] Performed By: #### 2 4323-8 ####[facility] [id number] [place] [address] [place] Creatinine and Glomerular filtration rate.predicted panel (S/P/Bld) 102 mL/min/1.73m??? Normal >=60 [facility] Comment on above: Order Comment: Katie holman Type: BLOOD SPECIMENOrdering Facility: [facility] Address: [address] [place] [address] Result Comment: Lisa mated Glomerular Filtration Rate (eGFR) is calculated using the 2020 CKD-EPI creatinine equation. This equation utilizes serum creatinine, sex, and age as parameters. The creatinine assay has traceable calibration to isotope dilution-mass spectrometry. Refer to KDIGO guidelines for clinical interpretation. In patients with unstable renal function, e.g. those with acute kidney injury, the eGFR may not accurately reflect actual GFR. Performed By: #### 2 4323-8 ####[facility] [id number] [place] [address] [place] Glucose [Mass/Vol] 106 mg/dL High 74-99 [facility] Comment on above: Order Comment: Katie holman Type: BLOOD SPECIMENOrdering Facility: [facility] Address: [address] [place] [address] Result Comment: The [place] [employer] (ADA) provides guidance for cutoff values for fasting glucose and random glucose. The ADA defines fasting as no caloric intake for at least 8 hours. Fasting plasma glucose results between 100 to 125 mg/dL indicate increased risk for diabetes (prediabetes).Fasting plasma glucose results greater than or equal to 126 mg/dL meet the criteria for diagnosis of diabetes. In the absence of unequivocal hyperglycemia, results should be confirmed by repeat testing. In a patient with classic symptoms of hyperglycemia or hyperglycemic crisis, random plasma glucose results greater than or equal to 200 mg/dL meet the criteria for diagnosis of diabetes.Reference: Standards of Medical Care in Diabetes 2016, [place] [employer]. Diabetes Care. 2016.39(Suppl 1). Performed By: #### 2 4323-8 ####[facility]YNCMO[facility] [id number] [place] [address] [place] Potassium [Moles/Vol] 4.0 mmol/L Normal 3.7-5.1 [facility] Comment on above: Order Comment: Speci men Type: BLOOD SPECIMENOrdering Facility: [facility] Address: [address] [place] [address] Performed By: #### 2 4323-8 ####[facility] [id number] [place] [address] [place] Protein [Mass/Vol] 6.1 g/dL Low 6.3-8.0 [facility] Comment on above: Order Comment: Speci men Type: BLOOD SPECIMENOrdering Facility: [facility] Address: [address] [place] [address] Performed By: #### 2 4323-8 ####[facility] [id number] [place] [address] [place] Sodium [Moles/Vol] 140 mmol/L Normal 136-144 [facility] Comment on above: Order Comment: Speci men Type: BLOOD SPECIMENOrdering Facility: [facility] Address: [address] [place] [address] Performed By: #### 2 4323-8 ####[facility] [id number] [place] [address] [place] Urea nitrogen [Mass/Vol] 9 mg/dL Normal 9-24 [facility] Comment on above: Order Comment: Speci men Type: BLOOD SPECIMENOrdering Facility: [facility] Address: [address] [place] [address], [place] [address] Performed By: #### 2 4323-8 ####[facility] CHRIS BEARPALOMA [id number] [place] [address] [place] No Panel Informationon 11-07 Interpretation and review of laboratory results Normal [facility] PT panel Coag (PPP)Ordered B y: Stephanie Luis on 11-07-2024 INR Coag (PPP) [Relative time] 1 {INR} 0.9 - 1.3 [facility] Comment on above: Vitamin K Antagonist (VKA) Therapeutic Range: INR 2 to 3 (Target INR of 2.5) Note: For patients treated with VKA drugs, such as warfarin, the [place] [employer] 2012 Guideline recommends a therapeutic INR range of 2 to 3 (target INR of 2.5). This recommendation includes high-risk patients with antiphospholipid syndrome with previous arterial or venous thromboembolism, current-generation mechanical or bioprosthetic aortic heart valve replacement. Note: Patients with mechanical aortic valve replacement and additional risk factors for thromboembolic events (atrial fibrillation, previous thromboembolism, LV dysfunction, hypercoagulable conditions) or an older generation mechanical AVR (i.e., ball in-Cage) or any mechanical MVR should have a INR therapeutic range of 2.5 to 3.5 (target INR of 3). Willow PERALES, et al. Chest 2012, 141:7S-47S Maggie RA, et al. JAC 2017, 70: 252-289 PT Coag (PPP) [Time] 10.4 s [facility] PT panel Coag (PPP)on 2024 INR Coag (PPP) [Relative time] 1.0 {INR} Normal 0.9-1.3 [facility] Comment on above: Order Comment: Speci men Type: BLOOD SPECIMENOrdering Facility: [facility] Address: [address] [place] [address] Result Comment: Olivia min K Antagonist (VKA) Therapeutic Range: INR 2 to 3 (Target INR of 2.5)Note: For patients treated with VKA drugs, such as warfarin, the [employer] 2012 Guideline recommends a therapeutic INR range of 2 to 3 (target INR of 2.5). This recommendation includes high-risk patients with antiphospholipid syndrome with previous arterial or venous thromboembolism, current-generation mechanical or bioprosthetic aortic heart valve replacement.Note: Patients with mechanical aortic valve replacement and additional risk factors for thromboembolic events (atrial fibrillation, previous thromboembolism, LV dysfunction, hypercoagulable conditions) or an older generation mechanical AVR (i.e., ball in-Cage) or any mechanical MVR should have a INR therapeutic range of 2.5 to 3.5 (target INR of 3).Willow GH, et al. Chest 2012, 141:7S-47SNishimpreethi RA, et al. [facility] 2017, 70: 252-289 Performed By: #### 3 4528-0, 33091-2 ####[facility] [id number] [place] [address] [place] PT Coag (PPP) [Time] 10.4 s Normal <13.1 [facility] Comment on above: Order Comment: Speci men Type: BLOOD SPECIMENOrdering Facility: [facility] Address: [address] [place] [address] Performed By: #### 3 4528-0, 72250-8 ####[facility] [id number] [place] [address] [place] aPTT Coag (PPP) [Time]on Unfractionated Hepar in Therapeutic Ranges: Standard Heparin Nomogram: 53 to 78 seconds (anti-Xa level of 0.3 to 0.7 U/ml) Low Dose/ACS Nomogram: 49 to 67 seconds (anti-Xa level of 0.2 to 0.5 U/ml) Stroke Treatment Nomogram: 49 to 67 seconds (anti-Xa level of 0.2 to 0.5 U/ml) Note: The APTT therapeutic range has been determined for the current lot of laboratory APTT reagent in use throughout the [facility]. [facility] aPTT PPPon 11-07-2024 aPTT Coag (PPP) [Time] 25.3 s Normal 23.0-32.4 [facility] Comment on above: Order Comment: Speci men Type: BLOOD SPECIMENOrdering Facility: [facility] Address: [facility] [place] [address] Performed By: #### 3 4528-0, 88559-8 ####[facility] [id number] [place] [address] [place] CNPNon 11-04-2024 CNPN Normal [facility] BRIEF OP NOTon 11-03-2024 BRIEF OP NOT HNO ID: [id number] Author: BRYSON STEPHENSON DO Service: Interventional Radiology Author Type: Physician Type: Brief Op Note Filed: 11/03/2024 14:04 Note Text: BRIEF OPERATIVE / PROCEDURE NOTE LOG ID: [id number] SURGERY/PROCEDURE DATE: 11/03/2024 INCISION/PROCEDURE START TIME: 1:40 PM INCISION CLOSE/PROCEDURE END TIME: 2:01 PM SURGEON(S)/PROCEDURALIST(S) AND PLANNING AND ANALYSIS MANAGER(S): Surgeons and Role: * Bryson Stephenson DO - Primary No Additional Staff SURGERY/PROCEDURE(S): Port placement ANESTHESIA: Procedural Sedation FINDINGS: Right chest port placed without issue. The port is ready for immediate use. Please refer to full dictated radiology report for further details. ESTIMATED BLOOD LOSS: <5 mls SPECIMENS: None COMPLICATIONS: None PRE-OP/PRE-PROCEDURE DIAGNOSIS: Esophageal cancer POST-OP/POST-PROCEDURE DIAGNOSIS: Same as Preop SIGNATURE: Bryson Stephenson DO PATIENT NAME: Bill Estrada DATE: November 03, 2024 TIME: 2:04 PM [facility] HISTORY PHYSICALon HISTORY PHYSICAL HNO ID: [id number] Author: BRYSON STEPHENSON DO Service: Interventional Radiology Author Type: Physician Type: H&P Filed: 11/03/2024 13:32 Note Text: UPDATED HISTORY AND PHYSICAL EXAMINATION SERVICE DATE: 11/03/2024 SERVICE TIME: 1310 PHYSICAL EXAM MUST BE COMPLETED ON ADMISSION PROCEDURE SCHEDULED: Procedure(s): INSERTION PORT VENOUS ACCESS ADULT (Pending) RADIOLOGY ORDER PLACED: The History and Physical (completed in the past 30 days) has been reviewed and the patient has been examined. The contents accurately reflect the patient's condition with the following additions or revisions since the HANDP was completed. Examination indicates no changes. This HANDP can be found in the Electronic Medical Record dated 10/28/2024. SIGNATURE: Bryson Stephenson DO PATIENT NAME: Bill Estrada DATE: November 03, 2024 TIME: 1:32 PM PAGER: [facility] IR PORTOCATH PLACEMENTon IR PORTOCATH PLACEMENT * * *Final Report * * * DATE OF EXAM: Nov 03 2024 2:01PM [facility] 0792 - IR PORTOCATH PLACEMENT / PROCEDURE REASON: New Patient Evaluation * * * * Physician Interpretation * * * * PROCEDURE: VENOUS PORT PLACEMENT Procedural Personnel Attending physician(s): Bryson Stephenson D.O. Fellow physician(s): None Resident physician(s): None Advanced practice provider(s): None Medical Student(s): None Pre-procedure diagnosis: Esophageal cancer Post-procedure diagnosis: Same Indication: Administration of chemotherapy Additional clinical history: None PROCEDURE SUMMARY: - Venous access with ultrasound guidance - Tunneled port insertion under fluoroscopic guidance - Additional procedure(s): None PROCEDURE DETAILS: Pre-procedure History and imaging of central venous access reviewed (QCDR): Yes Consent: Risks, benefits, treatment options, potential complications and personnel to be involved were discussed (including the risks of radiation exposure, contrast and anesthesia administration, and any equipment needed for the procedure to ensure best possible outcome) with the patient and all questions were answered and consent was obtained prior to procedure. Premedicated for contrast allergy: n/a Transfusion of blood products: No Medication reconciliation: The patient's medications and allergies were reviewed in the electronic medical record and reconciled to the proposed procedure/treatment. Estrella-procedure discussion: The appropriate elements of the pre-procedure discussion, safety check list and sign-out were performed. Time out: A time out was performed immediately prior to procedure start with the nursing and interventional team, correctly identifying the name, date of , procedure, anatomy (including marking of site and side if applicable), patient position, procedure consent form, relevant diagnostic and radiology test results, antibiotic administration if applicable, safety precautions, and procedure-specific equipment needs. Start of procedure: 1340 End of procedure: 1401 Patient position: Supine Preparation (MIPS): The site was prepared and draped using all elements of maximal sterile barrier technique including sterile gloves, sterile gown, cap, mask, large sterile sheet, sterile ultrasound probe cover, hand hygiene and cutaneous antisepsis with 2% chlorhexidine. Medical reason for site preparation exception (MIPS): Not applicable Antibiotics: None Antibiotic infusion start time: N/A Prophylactic antibiotic administered: None Additional med: None Additional med: None Contrast Contrast agent: None Contrast volume (mL): 0 Image Guidance Fluoroscopic and sonographic guidance was used. Ultrasound demonstrated patency of the target vein without filling defects. Access was obtained under direct sonographic visualization. A sonographic image of the vessel was obtained and placed into the permanent archive for documentation. FLUOROSCOPIC RADIATION SUMMARY: Plane A, Air Kerma: 0.6 mGy Dose Area Product (DAP): Fluoro Time: 0:06 min:sec Radiation dose exceed 5 Gy: No If radiation dose exceeded 5 Gy, was counseling and instructional brochure provided: N/A Anesthesia/sedation Level of anesthesia/sedation: Moderate sedation (conscious sedation) Anesthesia/sedation administered by: Independent trained observer under attending supervision with continuous monitoring of the patient?s level of consciousness and physiologic status Total intra-service sedation time (minutes): 22 Local anesthesia: 1 % lidocaine Access Local anesthesia was administered. The vessel was sonographically evaluated and determined to be patent. Real time ultrasound was used to visualize needle entry into the vessel and a permanent image was stored. Vein accessed: Internal jugular vein Access technique: Micropuncture set with 21 gauge needle Venography Indication for venography: Not performed Vein catheterized: Not applicable Findings: Not applicable Port placement An incision was made at the upper chest, a pocket was created, and the catheter was tunneled subcutaneously to the venous access site and trimmed to appropriate length. The port was inserted into the pocket and the catheter was advanced via a peel-away sheath into the vein under fluoroscopic guidance. The port was not sutured into the pocket. Catheter tip location was fluoroscopically verified and a permanent image was stored. Port placed: [address] injectable ported catheter Catheter flush: Normal saline Closure The access site and incision were closed and sterile dressing(s) were applied. Sponge counts were ascertained. Access site closure technique: Tissue adhesive Incision closure technique: Absorbable suture and tissue adhesive Patient discharged from procedure suite with device accessed: No Additio (more content not included)... Normal [facility] PT panel Coag (PPP)on 2024 INR Coag (PPP) [Relative time] 1.0 {INR} Normal 0.9-1.3 [facility] Comment on above: Order Comment: Katie holman Type: BLOOD SPECIMEN [facility] Address: [address] [place] [address] Result Comment: Olivia min K Antagonist (VKA) Therapeutic Range: INR 2 to 3 (Target INR of 2.5) Note: For patients treated with VKA drugs, such as warfarin, the [employer] 2012 Guideline recommends a therapeutic INR range of 2 to 3 (target INR of 2.5). This recommendation includes high-risk patients with antiphospholipid syndrome with previous arterial or venous thromboembolism, current-generation mechanical or bioprosthetic aortic heart valve replacement. Note: Patients with mechanical aortic valve replacement and additional risk factors for thromboembolic events (atrial fibrillation, previous thromboembolism, LV dysfunction, hypercoagulable conditions) or an older generation mechanical AVR (i.e., ball in-Cage) or any mechanical MVR should have a INR therapeutic range of 2.5 to 3.5 (target INR of 3). Willow GH, et al. Chest 2012, 141:7S-47S Maggie RA, et al. [facility] 2017, 70: 252-289 Performed By: #### 3 4528-0 #### [facility] CLIA [id number] [address] [place] PT Coag (PPP) [Time] 11.2 s Normal 9.7-13.0 [facility] Comment on above: Order Comment: Katie holman Type: BLOOD SPECIMEN [facility] Address: [address] [place] [address] Performed By: #### 3 4528-0 #### [facility] CLIA [id number] [address] [place] [address] [place] CNOVSPon 10-28-2024 CNOVSP Normal [facility] CNPNon 10-28-2024 CNPN Normal [facility] CNPNon 10-27-2024 CNPN Telephone ([place]) SEANBILL ([id number]) 1960 M Date Time Provider Department 10/27/24 TRINITY BORDEN During your visit today, we recorded the following information about you: Trinity Borden, RN 10/27/2024 3:50 PM Signed Spoke to pt and reviewed pre-procedure instructions. Patient recently discharged from [place] on PLAVIX. Patient stated they put a stent in my throat and that the doctor told him that he CAN hold medication for upcoming procedures. Pt aware of arrival time, hold time on Plavix and to be NPO after midnight and needs INR drawn. No other questions at this time. Sent [facility]. Allergies As of Date: 10/27/2024 Noted Allergy Reaction MORPHINE 04/22/2010 14 - Other: See Comments Comments: personality change PERCOCET (OXYCODONE-ACETAMINOPHEN) 8 - GI Upset Date Reviewed: 10/21/2024 Reviewed by: Arline Paulson, RT(R) - Fully Assessed Reason for Visit: Radiology Pre Procedure Instructions [1506] Cmt: Medport insertion Prescriptions as of 11/11/2024 - lidocaine-prilocaine (EMLA) 2.5-2.5 % cream Apply to affected area as needed. - lidocaine-prilocaine (EMLA) 2.5-2.5 % cream Apply 60 minutes before accessing port. - LIPITOR 40 mg tablet Take 40 mg by mouth once daily. - PLAVIX 75 mg tablet Take 75 mg by mouth once daily. - JARDIANCE 10 mg tablet Take 10 mg by mouth once daily. - metoprolol succinate ER (TOPROL XL) 25 mg 24 hr tablet Take 25 mg by mouth once daily. - ENTRESTO 24-26 mg tablet Dose = 1 tab(s), Oral, BID, # 60 tab(s), 0 Refill(s), Pharmacy: [id number], 165.1, cm, 10/18/24 9:54:00 EDT, Height, kg, 10/18/24 9:54:00 EDT, Dosing Weight - PROTONIX 40 mg tablet Take 40 mg by mouth once daily. - HYDROcodone-Acetaminophen (NORCO) 7.5-325 mg per tablet Take 1 tablet by mouth every 6 hours as needed. - prochlorperazine (COMPAZINE) 5 mg tablet Take 2 tablets by mouth every 6 hours as needed. - gabapentin (NEURONTIN) 400 mg capsule Take 400 mg by mouth two times a day. - pravastatin sodium (PRAVASTATIN ORAL) Take 1 tablet by mouth daily at bedtime. - ANORO ELLIPTA 62.5-25 mcg/actuation inhaler Inhale 1 Puff as instructed once daily. - omeprazole (PRILOSEC) 20 mg capsule Take 1 capsule by mouth once daily. 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 10-26-2024 CNPN Normal [facility] GLUCOSE, BLOOD (POC)on 10-25 Glucose [Mass/Vol] 107 mg/dL Abnormal 74 - 99 mg/dL [facility] Comment on above: Location:[facility], [address] [place], [place], [address] The Accu-Chek Inform II glucose meter has not been approved for testing on patients receiving intensive medical intervention or therapy and results from this point of care glucose test should not be used for patient management decisions in these cases. Inaccurate results may also occur from other interfering factors, such as N-acetylcysteine (blood concentrations of greater than 5mg/dL), galactose, extremes of hematocrit (<10 or >65), or high doses of ascorbic acid (vitamin C) greater than 3mg/dL. Consider alternate testing mechanisms (e.g. core lab, blood gas instrument) in the above situations. Interpretation and review of laboratory results Abnormal [facility] NM PET/CT SKULL-THIGH INITon 10-25-2024 NM PET/CT SKULL-THIGH INIT * * *Final Report* * * DATE OF EXAM: Oct 25 2024 10:04AM MDP 0060 - NM PET/CT SKULL-THIGH INIT / PROCEDURE REASON: C15.5-Malignant neoplasm of lower third of esophagus (HCC) * * * * Physician Interpretation * * * * EXAMINATION: BODY FDG PET-CT CLINICAL HISTORY: Malignant neoplasm of lower third of esophagus (HCC) EXAM CATEGORY: Initial treatment strategy. TECHNIQUE: Radiopharmaceutical was administered intravenously followed by PET imaging from the eyes to thighs. Free breathing, low dose CT of the same body region was acquired without IV contrast for attenuation correction and anatomic localization. Unenhanced imaging is limited for the evaluation of some pathology and the acquired CT was not designed to produce diagnostic CT scan quality. Physiologic/non-pathologic uptake in some body regions could confound or obscure some pathology. * CT Dose-Length Product (DLP): 390 mGy*cm * CT Dose Reduction Employed: Yes * Blood glucose: 107 mg/dL * Injection site: Right Hand * Injected activity: 11.8 mCi * Uptake Time: 51 minutes * Radiopharmaceutical: I18-Tswvwdpsoqbzwrgyyo (FDG) COMPARISON: No previous FDG PET/CT available CORRELATION: No relevant prior imaging available RESULT: REFERENCES: FDG uptake is used as a surrogate marker for glucose metabolism. All reported standardized uptake values represent maximum SUV (SUVmax) per body weight, unless otherwise specified. SUV reference values, as follows: * Blood Pool (Descending Aorta): SUVmax 2.4 * Background Liver: SUVmax 3.3; Localizer Images: No additional findings. HEAD AND NECK: Head: No radiotracer avid lesion or mass effect in the imaged intracranial compartment. Aerodigestive Tract: No radiotracer avid lesion. Lymph Nodes: No radiotracer avid lymphadenopathy. Neck Soft Tissues: No radiotracer avid thyroid nodule. CHEST: Lungs and Pleura: No radiotracer avid mass, nodule, or consolidation. No pleural effusion. Lymph Nodes: No radiotracer avid lymphadenopathy. Mediastinum: No radiotracer avid mass. Cardiovascular: Blood pool activity. No pericardial effusion. Normal heart size. Chest Wall: No radiotracer avid soft tissue lesion. ABDOMEN AND PELVIS: Hepatobiliary: No radiotracer avid lesion. No measurable mass. Spleen: No radiotracer avid lesion. No splenomegaly. Pancreas: No radiotracer avid lesion. Adrenals: No radiotracer avid nodule. Left adrenal nodule measuring 1.[address] density of -4, likely adenoma. Urinary Tract: Physiologic radiotracer excretion in the renal collecting systems and urinary bladder. No hydronephrosis. GI Tract: Radiotracer avid uptake in the lower third of esophagus extending to the GE junction with the presence of stent, SUV 4.9 at the distal third of esophagus and at the GE junction SUV 6.7 Peritoneum: No radiotracer avid lesion. No ascites. Lymph Nodes: No radiotracer avid lymphadenopathy. Vasculature: Blood pool activity. Pelvic Organs: No radiotracer avid lesion. MUSCULOSKELETAL: Bones: No radiotracer avid lesion. No lytic or sclerotic lesion. Soft Tissues: Focal radiotracer uptake at the medial proximal left thigh skin, probably infectious/inflammatory. IMPRESSION PRIMARY DISEASE SITE: * Hypermetabolic lower esophageal tumor JORGE LUIS DISEASE: * No Hypermetabolic regional lymphadenopathy. METASTATIC DISEASE: * No Hypermetabolic distant metastases. Steward Dishwasher: SARAH Transcribe Date/Time: Oct 25 2024 6:48P Dictated by : JOHN GROSS MD This examination was interpreted and the report reviewed and electronically signed by: JOHN GROSS MD on Oct 25 2024 7:00PM EST [id number] Normal [facility] PET+CT Guidance for localiza tion of tumor of Skull base to mid-thigh-- W 18F-FDG Maye 10-25-2024 * * *Final Report* * * DATE OF EXAM: Oct 25 2024 10:04AM MDP 0060 - NM PET/CT SKULL-THIGH INIT / PROCEDURE REASON: C15.5-Malignant neoplasm of lower third of esophagus (HCC) * * * * Physician Interpretation * * * * EXAMINATION: BODY FDG PET-CT CLINICAL HISTORY: Malignant neoplasm of lower third of esophagus (HCC) EXAM CATEGORY: Initial treatment strategy. TECHNIQUE: Radiopharmaceutical was administered intravenously followed by PET imaging from the eyes to thighs. Free breathing, low dose CT of the same body region was acquired without IV contrast for attenuation correction and anatomic localization. Unenhanced imaging is limited for the evaluation of some pathology and the acquired CT was not designed to produce diagnostic CT scan quality. Physiologic/non-pathologic uptake in some body regions could confound or obscure some pathology. * CT Dose-Length Product (DLP): 390 mGy*cm * CT Dose Reduction Employed: Yes * Blood glucose: 107 mg/dL * Injection site: Right Hand * Injected activity: 11.8 mCi * Uptake Time: 51 minutes * Radiopharmaceutical: B71-Isvqsjlcothqfthmeo (FDG) COMPARISON: No previous FDG PET/CT available CORRELATION: No relevant prior imaging available RESULT: REFERENCES: FDG uptake is used as a surrogate marker for glucose metabolism. All reported standardized uptake values represent maximum SUV (SUVmax) per body weight, unless otherwise specified. SUV reference values, as follows: * Blood Pool (Descending Aorta): SUVmax 2.4 * Background Liver: SUVmax 3.3; Localizer Images: No additional findings. HEAD AND NECK: Head: No radiotracer avid lesion or mass effect in the imaged intracranial compartment. Aerodigestive Tract: No radiotracer avid lesion. Lymph Nodes: No radiotracer avid lymphadenopathy. Neck Soft Tissues: No radiotracer avid thyroid nodule. CHEST: Lungs & Pleura: No radiotracer avid mass, nodule, or consolidation. No pleural effusion. Lymph Nodes: No radiotracer avid lymphadenopathy. Mediastinum: No radiotracer avid mass. Cardiovascular: Blood pool activity. No pericardial effusion. Normal heart size. Chest Wall: No radiotracer avid soft tissue lesion. ABDOMEN AND PELVIS: Hepatobiliary: No radiotracer avid lesion. No measurable mass. Spleen: No radiotracer avid lesion. No splenomegaly. Pancreas: No radiotracer avid lesion. Adrenals: No radiotracer avid nodule. Left adrenal nodule measuring 1.[address] density of -4, likely adenoma. Urinary Tract: Physiologic radiotracer excretion in the renal collecting systems and urinary bladder. No hydronephrosis. GI Tract: Radiotracer avid uptake in the lower third of esophagus extending to the GE junction with the presence of stent, SUV 4.9 at the distal third of esophagus and at the GE junction SUV 6.7 Peritoneum: No radiotracer avid lesion. No ascites. Lymph Nodes: No radiotracer avid lymphadenopathy. Vasculature: Blood pool activity. Pelvic Organs: No radiotracer avid lesion. MUSCULOSKELETAL: Bones: No radiotracer avid lesion. No lytic or sclerotic lesion. Soft Tissues: Focal radiotracer uptake at the medial proximal left thigh skin, probably infectious/inflammatory. IMPRESSION PRIMARY DISEASE SITE: * Hypermetabolic lower esophageal tumor JORGE LUIS DISEASE: * No Hypermetabolic regional lymphadenopathy. METASTATIC DISEASE: * No Hypermetabolic distant metastases. Steward Dishwasher: PSCB Transcribe Date/Time: Oct 25 2024 6:48P Dictated by : JOHN GROSS MD This examination was interpreted and the report reviewed and electronically signed by: JOHN GROSS MD on Oct 25 2024 7:00PM [facility] RADIOLOGY Provider, [facility] - 10/25/2024 * * *Final Report* * * DATE OF EXAM: Oct 25 2024 10:04AM MDP 0060 - NM PET/CT SKULL-THIGH INIT / PROCEDURE REASON: C15.5-Malignant neoplasm of lower third of esophagus (HCC) * * * * Physician Interpretation * * * * EXAMINATION: BODY FDG PET-CT CLINICAL HISTORY: Malignant neoplasm of lower third of esophagus (HCC) EXAM CATEGORY: Initial treatment strategy. TECHNIQUE: Radiopharmaceutical was administered intravenously followed by PET imaging from the eyes to thighs. Free breathing, low dose CT of the same body region was acquired without IV contrast for attenuation correction and anatomic localization. Unenhanced imaging is limited for the evaluation of some pathology and the acquired CT was not designed to produce diagnostic CT scan quality. Physiologic/non-pathologic uptake in some body regions could confound or obscure some pathology. * CT Dose-Length Product (DLP): 390 mGy*cm * CT Dose Reduction Employed: Yes * Blood glucose: 107 mg/dL * Injection site: Right Hand * Injected activity: 11.8 mCi * Uptake Time: 51 minutes * Radiopharmaceutical: G31-Hgzauqsdxxllomswby (FDG) COMPARISON: No previous FDG PET/CT available CORRELATION: No relevant prior imaging available RESULT: REFERENCES: FDG uptake is used as a surrogate marker for glucose metabolism. All reported standardized uptake values represent maximum SUV (SUVmax) per body weight, unless otherwise specified. SUV reference values, as follows: * Blood Pool (Descending Aorta): SUVmax 2.4 * Background Liver: SUVmax 3.3; Localizer Images: No additional findings. HEAD AND NECK: Head: No radiotracer avid lesion or mass effect in the imaged intracranial compartment. Aerodigestive Tract: No radiotracer avid lesion. Lymph Nodes: No radiotracer avid lymphadenopathy. Neck Soft Tissues: No radiotracer avid thyroid nodule. CHEST: Lungs & Pleura: No radiotracer avid mass, nodule, or consolidation. No pleural effusion. Lymph Nodes: No radiotracer avid lymphadenopathy. Mediastinum: No radiotracer avid mass. Cardiovascular: Blood pool activity. No pericardial effusion. Normal heart size. Chest Wall: No radiotracer avid soft tissue lesion. ABDOMEN AND PELVIS: Hepatobiliary: No radiotracer avid lesion. No measurable mass. Spleen: No radiotracer avid lesion. No splenomegaly. Pancreas: No radiotracer avid lesion. Adrenals: No radiotracer avid nodule. Left adrenal nodule measuring 1.[address] density of -4, likely adenoma. Urinary Tract: Physiologic radiotracer excretion in the renal collecting systems and urinary bladder. No hydronephrosis. GI Tract: Radiotracer avid uptake in the lower third of esophagus extending to the GE junction with the presence of stent, SUV 4.9 at the distal third of esophagus and at the GE junction SUV 6.7 Peritoneum: No radiotracer avid lesion. No ascites. Lymph Nodes: No radiotracer avid lymphadenopathy. Vasculature: Blood pool activity. Pelvic Organs: No radiotracer avid lesion. MUSCULOSKELETAL: Bones: No radiotracer avid lesion. No lytic or sclerotic lesion. Soft Tissues: Focal radiotracer uptake at the medial proximal left thigh skin, probably infectious/inflammatory. IMPRESSION PRIMARY DISEASE SITE: * Hypermetabolic lower esophageal tumor JORGE LUIS DISEASE: * No Hypermetabolic regional lymphadenopathy. METASTATIC DISEASE: * No Hypermetabolic distant metastases. Steward Dishwasher: SARAH Transcribe Date/Time: Oct 25 2024 6:48P Dictated by : JOHN GROSS MD This examination was interpreted and the report reviewed and electronically signed by: JOHN GROSS MD on Oct 25 2024 7:00PM EST [facility] Radiology Study observation (narrative) [facility] PET+CT Guidance for localiza tion of tumor of Skull base to mid-thigh-- W 18F-FDG IVOrdered By: Ccf Provider on 10-25-2024 [facility] Absolute lymphocyte countOrd ered By: Josef Garcia on 10-24-2024 Lymphocytes Auto (Unsp spec) [#/Vol] 1.95 10*3/uL 0.83-4.51 [facility] Absolute neutrophil countOrd ered By: Josef Garcia on 10-24-2024 Neutrophils (Bld) [#/Vol] 6.0 10*3/uL 2.0-7.7 [facility] Anion gap in Serum or Plasma Ordered By: Josef Garcia on 10-24-2024 Anion gap [Moles/Vol] 11 mmol/L 5-15 [facility] Automated lymphocyte count a s percentage of total leukocytesOrdered By: Josef Garcia on 10-24-2024 Lymphocytes/100 WBC Auto (Unsp spec) 21.0 % 19-41 [facility] BUN/creatinine ratioOrdered By: Josef Garcia on 10-24-2024 Urea nitrogen/Creatinine [Mass ratio] 19.4 mg/mg 10-20 [facility] Basophil percentageOrdered B y: Josef Garcia on 10-24-2024 Basophils/100 WBC (Bld) 0.4 % 0-1 [facility] Bilirubin, totalOrdered By: Josef Garcia on 10-24-2024 Bilirubin [Mass/Vol] 0.94 mg/dL 0.00-1.30 [facility] CBC W/Diff, Automatedon Absolute Lymph 1.95 X10 3/uL Normal 0.83-4.51 [facility] Comment on above: Performed By: #### L 500.4050, L503.7505, L100.0100 #### [facility] Laboratory [address] [place], [address] Absolute Neut 6.0 X10 3/uL Normal 2.0-7.7 [facility] Comment on above: Performed By: #### L 500.4050, L503.7505, L100.0100 #### [facility] [address] [place], [address] Basophils/100 WBC (Bld) 0.4 % Normal 0-1 [facility] Comment on above: Performed By: #### L 500.4050, L503.7505, L100.0100 #### [facility] [address] [place], [address] Eosinophils/100 WBC (Bld) 1.6 % Normal 0-5 [facility] Comment on above: Performed By: #### L 500.4050, L503.7505, L100.0100 #### [facility] [address] [place], [address] Erythrocyte distribution width (RBC) [Ratio] 13.2 % Normal 11.6-14.6 [facility] Comment on above: Performed By: #### L 500.4050, L503.7505, L100.0100 #### [facility] [address] [place], [address] Hematocrit (Bld) [Volume fraction] 39.7 % Low 40-54 [facility] Comment on above: Performed By: #### L 500.4050, L503.7505, L100.0100 #### [facility] [address] [place], [address] Hemoglobin (Bld) [Mass/Vol] 13.8 g/dL Normal 13.0-16.5 [facility] Comment on above: Performed By: #### L 500.4050, L503.7505, L100.0100 #### [facility] [address] [place], [address] IG% 1.400 High 0.0-0.9 [facility] Comment on above: Result Comment: IG% - Immature Granulocytes (promyelocytes, myelocytes and metamyelocytes) > 1% indicates that a LEFT SHIFT is Present. Performed By: #### L 500.4050, L503.7505, L100.0100 #### [facility] [address] [place], [address] Lymphocytes/100 WBC (Bld) 21.0 % Normal 19-41 [facility] Comment on above: Performed By: #### L 500.4050, L503.7505, L100.0100 #### [facility] [address] [place], [address] MCH (RBC) [Entitic mass] 31.1 pg Normal 27.0-32.0 [facility] Comment on above: Performed By: #### L 500.4050, L503.7505, L100.0100 #### [facility] [address] [place], [address] MCHC (RBC) [Mass/Vol] 34.8 g/dL Normal 32-36 [facility] Comment on above: Performed By: #### L 500.4050, L503.7505, L100.0100 #### [facility] [address] [place], [address] MCV (RBC) [Entitic vol] 89.4 fL Normal 80-94 [facility] Comment on above: Performed By: #### L 500.4050, L503.7505, L100.0100 #### [facility] [address] [place], [address] Monocytes/100 WBC (Bld) 10.7 % High 0-10 [facility] Comment on above: Performed By: #### L 500.4050, L503.7505, L100.0100 #### [facility] [address] [place], [address] Neutrophils/100 WBC (Bld) 64.9 % Normal 47-70 [facility] Comment on above: Performed By: #### L 500.4050, L503.7505, L100.0100 #### [facility] [address] [place], [address] Nucleated RBC (Bld) [#/Vol] 0 10*3/uL Normal 0-5 [facility] Comment on above: Performed By: #### L 500.4050, L503.7505, L100.0100 #### [facility] [address] [place], [address] Platelet mean volume (Bld) [Entitic vol] 10.1 fL Normal 6.2-12.0 [facility] Comment on above: Performed By: #### L 500.4050, L503.7505, L100.0100 #### [facility] [address] [place], [address] Platelets (Bld) [#/Vol] 352 10*3/uL Normal 150-450 [facility] Comment on above: Performed By: #### L 500.4050, L503.7505, L100.0100 #### [facility] [address] [place], [address] RBC (Bld) [#/Vol] 4.44 10*6/uL Low 4.6-6.2 [facility] Comment on above: Performed By: #### L 500.4050, L503.7505, L100.0100 #### [facility] [address] [place], [address] RDW SD 42.5 fl Normal 35.1-43.9 [facility] Comment on above: Performed By: #### L 500.4050, L503.7505, L100.0100 #### [facility] [address] [place], [address] WBC (Bld) [#/Vol] 9.3 10*3/uL Normal 4.4-11.0 [facility] Comment on above: Performed By: #### L 500.4050, L503.7505, L100.0100 #### [facility] [address] [place], [address] Carbon dioxide, total [Moles /volume] in Central venous bloodOrdered By: Josef Garcia on 10-24-2024 CO2 [Moles/Vol] 24.9 mmol/L 21.0-32.0 [facility] Chloride assayOrdered By: Brian Garcia on 10-24-2024 Chloride [Moles/Vol] 101 mmol/L 98-108 [facility] Comprehensive Metabolic Prof ilon 10-24-2024 Albumin [Mass/Vol] 3.9 g/dL Normal 3.4-4.8 [facility] Comment on above: Order Comment: AMEENA Performed By: #### L 500.4050, L503.7505, L100.0100 #### [facility] [address] [place], [address] Albumin/Globulin [Mass ratio] 1.4 {ratio} Normal 0.9-2.4 [facility] Comment on above: Order Comment: AMEENA Performed By: #### L 500.4050, L503.7505, L100.0100 #### [facility] [address] [place], [address] ALK PHOS 91 U/L Normal 40-129 [facility] Comment on above: Order Comment: AMEENA Performed By: #### L 500.4050, L503.7505, L100.0100 #### [facility] [address] [place], [address] ALT [Catalytic activity/Vol] 91 U/L High <=46 [facility] Comment on above: Order Comment: AMEENA Performed By: #### L 500.4050, L503.7505, L100.0100 #### [facility] [address] [place], [address] AST [Catalytic activity/Vol] 48 U/L High <=37 [facility] Comment on above: Order Comment: AMEENA Performed By: #### L 500.4050, L503.7505, L100.0100 #### [facility] [address] [place], [address] Bilirubin [Mass/Vol] 0.94 mg/dL Normal 0.00-1.30 [facility] Comment on above: Order Comment: AMEENA Performed By: #### L 500.4050, L503.7505, L100.0100 #### [facility] [address] [place], [address] BUN/CRE 19.4 RATIO Normal 10-20 [facility] Comment on above: Order Comment: AMEENA Performed By: #### L 500.4050, L503.7505, L100.0100 #### [facility] [address] [place], [address] Calcium [Mass/Vol] 9.3 mg/dL Normal 7.6-11.0 [facility] Comment on above: Order Comment: AMEENA Performed By: #### L 500.4050, L503.7505, L100.0100 #### [facility] [address] [place], [address] Chloride [Moles/Vol] 101 mmol/L Normal 98-108 [facility] Comment on above: Order Comment: AMEENA Performed By: #### L 500.4050, L503.7505, L100.0100 #### [facility] [address] [place], [address] CO2 [Moles/Vol] 24.9 mmol/L Normal 21.0-32.0 [facility] Comment on above: Order Comment: AMEENA Performed By: #### L 500.4050, L503.7505, L100.0100 #### [facility] [address] [place], [address] Creatinine [Mass/Vol] 0.88 mg/dL Normal 0.70-1.20 [facility] Comment on above: Order Comment: AMEENA Performed By: #### L 500.4050, L503.7505, L100.0100 #### [facility] [address] [place], [address] GAP 11 Normal 5-15 [facility] Comment on above: Order Comment: AMEENA Performed By: #### L 500.4050, L503.7505, L100.0100 #### [facility] [address] [place], [address] GFR/1.73 sq M.predicted among non-blacks MDRD (S/P/Bld) [Vol rate/Area] 96 mL/min/{1.73_m2} Normal >60 [facility] Comment on above: Order Comment: AMEENA Result Comment: mL/m in/1.73m2 CKD-EPI Creatinine Equation (2020) Performed By: #### L 500.4050, L503.7505, L100.0100 #### [facility] [address] [place], [address] Globulin (S) [Mass/Vol] 2.8 g/dL Normal 2.2-4.2 [facility] Comment on above: Order Comment: AMEENA Performed By: #### L 500.4050, L503.7505, L100.0100 #### [facility] [address] [place], [address] Glucose [Mass/Vol] 108 mg/dL High 70-99 [facility] Comment on above: Order Comment: AMEENA Performed By: #### L 500.4050, L503.7505, L100.0100 #### [facility] [address] [place], [address] Potassium [Moles/Vol] 3.5 mmol/L Normal 3.3-5.1 [facility] Comment on above: Order Comment: AMEENA Performed By: #### L 500.4050, L503.7505, L100.0100 #### [facility] [address] [place], [address] Sodium [Moles/Vol] 137 mmol/L Normal 133-145 [facility] Comment on above: Order Comment: AMEENA Performed By: #### L 500.4050, L503.7505, L100.0100 #### [facility] [address] [place], [address] T PROT 6.6 g/dL Normal 5.9-8.4 [facility] Comment on above: Order Comment: AMEENA Performed By: #### L 500.4050, L503.7505, L100.0100 #### [facility] [address] [place], [address] Urea nitrogen [Mass/Vol] 17 mg/dL Normal 4-19 [facility] Comment on above: Order Comment: AMEENA Performed By: #### L 500.4050, L503.7505, L100.0100 #### [facility] [address] [place], [address] Eosinophil percentageOrdered By: Josef Garcia on 10-24-2024 Eosinophils/100 WBC (Bld) 1.6 % 0-5 [facility] Erythrocyte distribution wid th (RBC) [Ratio]Ordered By: Josef Garcia on 10-24-2024 Erythrocyte distribution width (RBC) [Entitic vol] 42.5 fL 35.1-43.9 [facility] Erythrocyte distribution wid th ratioOrdered By: Josef Garcia on 10-24-2024 Erythrocyte distribution width (RBC) [Ratio] 13.2 % 11.6-14.6 [facility] Erythrocyte distribution wid th standard deviationOrdered By: Josef Garcia on 10-24-2024 Erythrocyte distribution width (RBC) [Ratio] 42.5 fl 35.1-43.9 [facility] GFR/1.73 sq M.predicted christoph g non-blacks MDRD (S/P/Bld) [Vol rate/Area]Ordered By: Josef Garcia on 10-24-2024 Estimated GFR (MDRD) Non-Af Amer 96 >60 [facility] Comment on above: mL/min/1.73m2 CKD-EP I Creatinine Equation (2020) Glomerular filtration rate ( GFR) estimation/1.73 sq m using serum, plasma, or whole bOrdered By: Josef Garcia on 10-24-2024 GFR/1.73 sq M.predicted among non-blacks MDRD (S/P/Bld) [Vol rate/Area] 96 mL/min/{1.73_m2} >60 [facility] Comment on above: mL/min/1.73m2 CKD-EP I Creatinine Equation (2020) Hematocrit Auto (Bld) [Volum e fraction]Ordered By: Josef Garcia 10-24-2024 Hematocrit (Bld) [Volume fraction] 39.7 % Low 40-54 [facility] Hemoglobin measurementOrdere d By: Josef Garcia 10-24-2024 Hemoglobin (Bld) [Mass/Vol] 13.8 g/dL 13.0-16.5 [facility] Immature granulocytes/100 WB C Auto (Bld)Ordered By: Josef Garcia 10-24-2024 Immature granulocytes/100 WBC (Bld) 1.400 % High 0.0-0.9 [facility] Comment on above: IG% - Immature Granu locytes (promyelocytes, myelocytes and metamyelocytes) > 1% indicates that a LEFT SHIFT is Present. L503.7505on 10-24-2024 Natriuretic peptide B (Bld) [Mass/Vol] 334 pg/mL Normal <=900 [facility] Comment on above: Result Comment: Hear t Failure Unlikely: < 300 pg/mL Heart Failure Likely < 50 Years: > 450 pg/mL 50-75 Years: > 900 pg/mL >75 Years: > 1800 pg/mL Performed By: #### L 500.4050, L503.7505, L100.0100 #### [facility] [address] [place], [address] Laboratory - Chemistry and C hemistry - challengeOrdered By: Josef Garcia on 10-24-2024 AST [Catalytic activity/Vol] 48 U/L High <38 [facility] Lymphocytes Auto (Unsp spec) [#/Vol]Ordered By: Josef Garcia on 10-24-2024 Lymphocytes (Bld) [#/Vol] 1.95 10*3/uL 0.83-4.51 [facility] Lymphocytes/100 WBC Auto (Un sp spec)Ordered By: Josef Garcia on 10-24-2024 Lymphocytes/100 WBC (Bld) 21.0 % 19-41 [facility] MCV (mean corpuscular volume ) determinationOrdered By: Josef Garcia 10-24-2024 MCV (RBC) [Entitic vol] 89.4 fL 80-94 [facility] Mean corpuscular hemoglobin (MCH) determinationOrdered By: Joesf Garcia 10-24-2024 MCH (RBC) [Entitic mass] 31.1 pg 27.0-32.0 [facility] Mean corpuscular hemoglobin concentration (MCHC) determinationOrdered By: Josef Garcia 10-24-2024 MCHC (RBC) [Mass/Vol] 34.8 g/dL 32-36 [facility] Mean platelet volume determi nationOrdered By: Josef Garcia 10-24-2024 Platelet mean volume (Bld) [Entitic vol] 10.1 fL 6.2-12.0 [facility] Monocyte percentageOrdered B y: Josef Garcia on 10-24-2024 Monocytes/100 WBC (Bld) 10.7 % High 0-10 [facility] Natriuretic peptide.B prohor kenneth N-Terminal [Mass/Vol]Ordered By: Josef Garcia on 10-24-2024 Natriuretic peptide B (Bld) [Mass/Vol] 334 pg/mL <900 [facility] Comment on above: Heart Failure Unlike ly: < 300 pg/mLHeart Failure Likely< 50 Years: > 450 pg/mL50-75 Years: > 900 pg/mL>75 Years: > 1800 pg/mL Natriuretic peptide.B prohor kenneth N-Terminal [Mass/volume] in Serum or PlasmaOrdered By: Josef Garcia on 10-24-2024 Natriuretic peptide.B prohormone N-Terminal [Mass/Vol] 334 pg/mL <900 [facility] Comment on above: Heart Failure Unlike ly: < 300 pg/mLHeart Failure Likely< 50 Years: > 450 pg/mL50-75 Years: > 900 pg/mL>75 Years: > 1800 pg/mL Neutrophil percentageOrdered By: Josef Garcia on 10-24-2024 Neutrophils/100 WBC (Bld) 64.9 % 47-70 [facility] Nucleated red blood cell per centageOrdered By: Josef Garcia on 10-24-2024 Nucleated RBC/100 WBC (Bld) [Ratio] 0 % 0-5 [facility] Platelet countOrdered By: Brian Garcia on 10-24-2024 Platelets (Bld) [#/Vol] 352 10*3/uL 150-450 [facility] Potassium (Unsp spec) [Mass/ Vol]Ordered By: Josef Garcia on 10-24-2024 Potassium [Moles/Vol] 3.5 mmol/L 3.3-5.1 [facility] Potassium measurement (mass/ volume)Ordered By: Josef Garcia on 10-24-2024 Potassium (Unsp spec) [Mass/Vol] 3.5 mmol/L 3.3-5.1 [facility] RBC Auto (Bld) [#/Vol]Ordere d By: Josef Garcia on 10-24-2024 RBC (Bld) [#/Vol] 4.44 10*6/uL Low 4.6-6.2 [facility] Serum creatinine measurement (mass/volume)Ordered By: Josef Garcia on 10-24-2024 Creatinine [Mass/Vol] 0.88 mg/dL 0.70-1.20 [facility] Serum globulin measurementOr dered By: Josef Garcia on 10-24-2024 Globulin (S) [Mass/Vol] 2.8 g/dL 2.2-4.2 [facility] Serum glucose measurement (m ass/volume)Ordered By: Josef Garcia on 10-24-2024 Glucose [Mass/Vol] 108 mg/dL High 70-99 [facility] Serum or plasma alanine menchaca otransferase (ALT) measurementOrdered By: Josef Garcia on 10-24-2024 ALT [Catalytic activity/Vol] 91 U/L High <47 [facility] Serum or plasma albumin devin urement (mass/volume)Ordered By: Josef Garcia on 10-24-2024 Albumin [Mass/Vol] 3.9 g/dL 3.4-4.8 [facility] Serum or plasma albumin/glob ulin mass ratioOrdered By: Josef Garcia on 10-24-2024 Albumin/Globulin [Mass ratio] 1.4 {ratio} 0.9-2.4 [facility] Serum or plasma alkaline brice sphatase measurementOrdered By: Josef Garcia 10-24-2024 ALP [Catalytic activity/Vol] 91 U/L 40-129 [facility] Serum or plasma calcium devin urement (mass/volume)Ordered By: Josef Garcia 10-24-2024 Calcium [Mass/Vol] 9.3 mg/dL 7.6-11.0 [facility] Serum or plasma urea nitroge n measurement (mass/volume)Ordered By: Josef Garcia 10-24-2024 Urea nitrogen [Mass/Vol] 17 mg/dL 4-19 [facility] Sodium levelOrdered By: Josef Garcia 10-24-2024 Sodium [Moles/Vol] 137 mmol/L 133-145 [facility] Total proteinOrdered By: Josef Garcia 10-24-2024 Protein [Mass/Vol] 6.6 g/dL 5.9-8.4 [facility] White blood cell (WBC) count Ordered By: Josef Garcia 10-24-2024 WBC (Bld) [#/Vol] 9.3 10*3/uL 4.4-11.[address] [facility] [address] BRAIN W IVCONon CT BRAIN W IVCON Normal [facility] CT Head W contrast Maye 04-[address]: 1[address] No CT evidence of an acute intracranial process, mass, or pathologic enhancement to suggest intracranial metastatic disease. 2. Age-appropriate CT of the brain. Steward Dishwasher: PSCB Transcribe Date/Time: Oct 21 2024 12:12P Dictated by : JOSEPH THAO MD This examination was interpreted and the report reviewed and electronically signed by: JOSEPH THAO MD on Oct 21 2024 12:16PM [facility] DIVISION OF RADIOLOGY * * *Final Report* * * DATE OF EXAM: Oct 21 2024 10:14AM [facility] 0005 - CT BRAIN W IVCON / PROCEDURE REASON: Malignant neoplasm of lower third of esophagus (HCC) * * * * Physician Interpretation * * * * EXAMINATION: CT BRAIN W IVCON CLINICAL HISTORY: Malignant neoplasm of lower third of esophagus (HCC) TECHNIQUE: Serial axial images with IV contrast were obtained from the vertex to the foramen magnum. MQ: CTBWOW_1 Contrast: 100 mL Omnip[address] Radiation dose: Integrated Dose-Length Product (DLP) for this visit = 719 mGy*cm CT Dose Reduction Employed: Automated exposure control(AEC) and iterative recon COMPARISON: CT temporal bones 05/22/2010 RESULT: Localizer images: Unremarkable. Post-operative change: None. Acute change: No evidence of an acute intracranial process. Hemorrhage: There is no clear evidence of acute intracranial hemorrhage with the constraints of the contrast enhanced acquisition. ECASS hemorrhagic transformation score: Not Applicable Mass Lesion / Mass Effect: There is no evidence of an intracranial mass or extraaxial fluid collection. No abnormal parenchymal enhancement is appreciated. No significant mass effect. Chronic change: None apparent. Parenchyma: There is no significant volume loss. The brain parenchyma is otherwise within normal limits for age. Ventricles: The ventricles are within normal limits of size and configuration for age. Paranasal sinuses and skull base: The visualized paranasal sinuses are clear. The skull base and imaged soft tissues are unremarkable. 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 MQ: CTBWOW_1 Contrast: 100 mL Omnipaque [address] Radiation dose: Integrated Dose-Length Product (DLP) for this visit = 719 mGy*cm CT Dose Reduction Employed: Automated exposure control(AEC) and iterative recon COMPARISON: CT temporal bones 05/22/2010 RESULT: Localizer images: Unremarkable. Post-operative change: None. Acute change: No evidence of an acute intracranial process. Hemorrhage: There is no clear evidence of acute intracranial hemorrhage with the constraints of the contrast enhanced acquisition. ECASS hemorrhagic transformation score: Not Applicable Mass Lesion / Mass Effect: There is no evidence of an intracranial mass or extraaxial fluid collection. No abnormal parenchymal enhancement is appreciated. No significant mass effect. Chronic change: None apparent. Parenchyma: There is no significant volume loss. The brain parenchyma is otherwise within normal limits for age. Ventricles: The ventricles are within normal limits of size and configuration for age. Paranasal sinuses and skull base: The visualized paranasal sinuses are clear. The skull base and imaged soft tissues are unremarkable. IMPRESSION IMPRESSION: 1. No CT evidence of an acute intracranial process, mass, or pathologic enhancement to suggest intracranial metastatic disease. 2. Age-appropriate CT of the brain. Steward Dishwasher: PSCB Transcribe Date/Time: Oct 21 2024 12:12P Dictated by : JOSEPH THAO MD This examination was interpreted and the report reviewed and electronically signed by: JOSEPH THAO MD on Oct 21 2024 12:16PM EST [facility] Radiology Study observation (narrative) [facility] CT Head W contrast IVOrdered By: Ccf Provider on 10-21-2024 [facility] MYCOon 10-21-2024 Mycoplasma IgG Positive Normal [facility] Comment on above: Result Comment: INTE RPRETATION OF MYCOPLASMA IgG BY EIA: Negative: No detectable M. pneumoniae IgG antibody. Positive: Mycoplasma pneumoniae IgG antibody Detected. Equivocal: Equivocal for IgG antibodies to Mycoplasma pneumoniae. Suggest repeat testing in 10-14 days. Performed By: #### A PTT #### [facility] [address] [place] [id number] Performed By: #### M YCO ####[address] [address] .Auto Diffon 10-20-2024 Basophil, Absolute 0.0 10 3/mcL Normal 0.0-0.[address] [facility] Comment on above: Performed By: #### A DIFF, CBC, ANEU #### [address] [address] Basophils/100 WBC (Bld) 0.5 % Normal 0.0-2.[address] [facility] Comment on above: Performed By: #### A DIFF, CBC, ANEU #### [address] [address] Eosinophil, Absolute 0.1 10 3/mcL Normal 0.0-0.7 [facility] Comment on above: Performed By: #### A DIFF, CBC, ANEU #### [address] [address] Eosinophils/100 WBC (Bld) 0.7 % Normal 0.0-6.[address] [facility] Comment on above: Performed By: #### A DIFF, CBC, ANEU #### [address] [address] Lymphocyte, Absolute 1.4 10 3/mcL Normal 0.9-4.3 [facility] Comment on above: Performed By: #### A DIFF, CBC, ANEU #### [address] [address] Lymphocytes/100 WBC (Bld) 14.1 % Low 20.0-40.[address] [facility] Comment on above: Performed By: #### A DIFF, CBC, ANEU #### [address] [address] Monocyte, Absolute 1.5 10 3/mcL High 0.1-1.[address] [facility] Comment on above: Performed By: #### A DIFF, CBC, ANEU #### [address] [address] Monocytes/100 WBC (Bld) 14.7 % High 2.0-13.[address] [facility] Comment on above: Performed By: #### A DIFF, CBC, ANEU #### [address] [address] Neutrophils/100 WBC (Bld) 70.0 % Normal 50.0-75.[address] [facility] Comment on above: Performed By: #### A DIFF, CBC, ANEU #### [place] [address] .GFRon 10-20-2024 Estimated Glomerular Filtration Rate 107 ml/min/1.73sqm Normal [facility] Comment on above: Result Comment: Stages of Chronic Kidney Disease (CKD) Stage Description eGFR(ml/min/1.73 sq.m.) CKD 1 Normal kidney function or >=90 normal kindney function with possible kidney damage (ex. Proteinuria) CKD 2 Kidney damage with mild loss 60-89 of kidney function CKD 3a Mild to moderate loss of kidney 45-59 function CKD 3b Moderate to severe loss of 30-44 of kindey function CKD 4 Severe loss of kidney function 15-29 CKD 5 Kidney failure <15 Note: (go live 2024) the eGFR calculation was updated to the 2020 CKD-EPI creatinine equation without a race factor to calculate the eGFR results. Performed By: #### M G, GFR, BMP #### [place] [address] .NEUABSon 10-20-2024 Neutrophil, Absolute 7.1 10 3/mcL Normal 2.3-8.1 [facility] Comment on above: Performed By: #### A DIFF, CBC, ANEU #### [place] [address] A1Con 10-20-2024 Glucose [Mass/Vol] 108 mg/dL Normal [facility] Comment on above: Result Comment: Lisa mated Average Glucose calculated by equation ((28.7xA1C)-46.7) Estimated average glucose (eAG) is a calculated value from Hemoglobin A1C and is field service representative of the average blood glucose level in the last 2-3 month period. Normal range: less than 114 mg/dL Performed By: #### A PTT #### [place] [address] HbA1c (Bld) [Mass fraction] 5.4 % Normal 4.0-6.[address] [facility] Comment on above: Performed By: #### A PTT #### [place] [address] APTTon 10-20-2024 aPTT Coag (Bld) [Time] 55.2 s High 25.0-35.0 [facility] Comment on above: Result Comment: For Heparin anticoagulation therapy, the recommended therapeutic range is: 54-77 seconds (APTT Correlation with Anti-Xa therapeutic range of 0.3-0.7 units/ml). PLEASE REFERENCE THE PHARMACY PROTOCOL FOR DOSING. Performed By: #### A PTT #### [place] [address] aPTT Coag (Bld) [Time] 48.2 s High 25.0-35.0 [facility] Comment on above: Result Comment: For Heparin anticoagulation therapy, the recommended therapeutic range is: 54-77 seconds (APTT Correlation with Anti-Xa therapeutic range of 0.3-0.7 units/ml). PLEASE REFERENCE THE PHARMACY PROTOCOL FOR DOSING. Performed By: #### A PTT #### [place] [address] BMPon 10-20-2024 BUN/Creatinine Ratio 14.8 ratio Normal 10.0-22.[address] [facility] Comment on above: Performed By: #### M G, GFR, BMP #### [address] [address] Calcium [Mass/Vol] 9.0 mg/dL Normal 8.7-10.4 [facility] Comment on above: Performed By: #### M G, GFR, BMP #### [address] [address] Chloride [Moles/Vol] 101 mmol/L Normal 98-[address] [facility] Comment on above: Performed By: #### M G, GFR, BMP #### [address] [address] CO2 [Moles/Vol] 27 mmol/L Normal 22-[address] [facility] Comment on above: Performed By: #### M G, GFR, BMP #### [address] [address] Creatinine [Mass/Vol] 0.61 mg/dL Normal 0.60-1.40 [facility] Comment on above: Result Comment: Test ing performed on RegenaStem analyzer using enzymatic creatinine methodology. Performed By: #### M G, GFR, BMP #### [address] [address] Electrolyte Balance 12.0 mEq/L Normal 4.0-15.0 [facility] Comment on above: Performed By: #### M G, GFR, BMP #### [address] [address] Glucose [Mass/Vol] 98 mg/dL Normal 82-115 [facility] Comment on above: Performed By: #### M G, GFR, BMP #### [address] [address] Potassium [Moles/Vol] 3.1 mmol/L Low 3.5-5.0 [facility] Comment on above: Performed By: #### M G, GFR, BMP #### [address] [address] Sodium [Moles/Vol] 140 mmol/L Normal 136-145 [facility] Comment on above: Performed By: #### M G, GFR, BMP #### [address] [address] Urea nitrogen [Mass/Vol] 9.0 mg/dL Normal 8.0-22.[address] [facility] Comment on above: Performed By: #### M G, GFR, BMP #### [address] [address] CBCon 10-20-2024 Erythrocyte distribution width (RBC) [Ratio] 14.4 % Normal 11.5-15.[address] [facility] Comment on above: Performed By: #### A DIFF, CBC, ANEU #### [address] [address] Hematocrit (Bld) [Volume fraction] 42.6 % Normal 40.0-52.[address] [facility] Comment on above: Performed By: #### A DIFF, CBC, ANEU #### [address] [address] Hgb 14.8 G/dL Normal 13.0-17.[address] [facility] Comment on above: Performed By: #### A DIFF, CBC, ANEU #### [place] [address] MCH (RBC) [Entitic mass] 31.8 pg Normal 27.0-33.[address] [facility] Comment on above: Performed By: #### A DIFF, CBC, ANEU #### [place] [address] MCHC 34.7 G/dL Normal 32.0-36.[address] [facility] Comment on above: Performed By: #### A DIFF, CBC, ANEU #### [place] [address] MCV (RBC) [Entitic vol] 91.8 fL Normal 81.0-100.[address] [facility] Comment on above: Performed By: #### A DIFF, CBC, ANEU #### [place] [address] Platelet 231 10 3/mcL Normal 150-[address] [facility] Comment on above: Performed By: #### A DIFF, CBC, ANEU #### [place] [address] Platelet mean volume (Bld) [Entitic vol] 8.0 fL Normal 6.4-10.[address] [facility] Comment on above: Performed By: #### A DIFF, CBC, ANEU #### [place] [address] RBC 4.64 10 6/mcL Normal 4.50-6.[address] [facility] Comment on above: Performed By: #### A DIFF, CBC, ANEU #### [place] [address] WBC 10.1 10 3/mcL Normal 4.5-10.[address] [facility] Comment on above: Performed By: #### A DIFF, CBC, ANEU #### [place] [address] LABORATORYOrdered By: SYSTEM SYSTEM on 10-20-2024 aPTT Coag (Bld) [Time] 55.2 s High 25.0 - 35.0 seconds AH [facility] SS Comment on above: Interpretive Data: F or Heparin anticoagulation therapy, the recommended therapeutic range is: 54-77 seconds (APTT Correlation with Anti-Xa therapeutic range of 0.3-0.7 units/ml). PLEASE REFERENCE THE PHARMACY PROTOCOL FOR DOSING. Calcium [Mass/Vol] 9.0 mg/dL Normal 8.7 - 10. 4 mg/dL ADM SS Chloride [Moles/Vol] 101 mmol/L Normal 98 - 11 0 mEq/L ADM SS CO2 [Moles/Vol] 27 mmol/L Normal 22 - 32 mEq/L ADM SS Creatinine [Mass/Vol] 0.61 mg/dL Normal 0.60 - 1.40 mg/dL ADM SS Comment on above: Interpretive Data: T esting performed on RegenaStem analyzer using enzymatic creatinine methodology. Electrolyte Balance 12.0 mEq/L Normal 4.0 - 15 .0 mEq/L ADM SS Estimated Glomerular Filtration Rate 107 ml/min/1.73sqm Invalid Interpretation Code Chemistry S Comment on above: Interpretive Data: Stages of Chronic Kidney Disease (CKD) Stage Description eGFR(ml/min/1.73 sq.m.) CKD 1 Normal kidney function or >=90 normal kindney function with possible kidney damage (ex. Proteinuria) CKD 2 Kidney damage with mild loss 60-89 of kidney function CKD 3a Mild to moderate loss of kidney 45-59 function CKD 3b Moderate to severe loss of 30-44 of kindey function CKD 4 Severe loss of kidney function 15-29 CKD 5 Kidney failure <15 Note: (go live 2024) the eGFR calculation was updated to the 2020 CKD-EPI creatinine equation without a race factor to calculate the eGFR results. Glucose [Mass/Vol] 98 mg/dL Normal 82 - 115 mg/dL ADM SS Magnesium [Mass/Vol] 2.0 mg/dL Normal 1.6 - 2 .4 mg/dL ADM SS Potassium [Moles/Vol] 3.1 mmol/L Low 3.5 - 5.0 mEq/L ADM SS Sodium [Moles/Vol] 140 mmol/L Normal 136 - 145 mEq/L ADM SS Urea nitrogen [Mass/Vol] 9.0 mg/dL Normal 8.0 - 22.0 mg/dL ADM SS Urea nitrogen/Creatinine [Mass ratio] 14.8 ratio Normal 10.0 - 22.0 ratio ADM SS aPTT Coag (Bld) [Time] 48.2 s High 25.0 - 35.0 seconds [facility] Comment on above: Interpretive Data: F or Heparin anticoagulation therapy, the recommended therapeutic range is: 54-77 seconds (APTT Correlation with Anti-Xa therapeutic range of 0.3-0.7 units/ml). PLEASE REFERENCE THE PHARMACY PROTOCOL FOR DOSING. Basophils (Bld) [#/Vol] 0.0 103/mcL Normal 0.0 - 0.3 10^3/mcL Workflow SS Basophils/100 WBC (Bld) 0.5 % Normal 0.0 - 2.5 % AH Workflow SS Eosinophils (Bld) [#/Vol] 0.1 103/mcL Normal 0.0 - 0.7 10^3/mcL Workflow SS Eosinophils/100 WBC (Bld) 0.7 % Normal 0.0 - 6.0 % Workflow SS Erythrocyte distribution width (RBC) [Ratio] 14.4 % Normal 11.5 - 15.5 % Workflow Glucose [Mass/Vol] 108 mg/dL Invalid Interpretation Code Auto Chem Comment on above: Interpretive Data: E stimated average glucose (eAG) is a calculated value from Hemoglobin A1C and is field service representative of the average blood glucose level in the last 2-3 month period. Normal range: less than 114 mg/dL HbA1c (Bld) [Mass fraction] 5.4 % Normal 4.0 - 6.0 % Auto Chem SS Hematocrit (Bld) [Volume fraction] 42.6 % Normal 40.0 - 52.0 % Workflow SS Hemoglobin (Bld) [Mass/Vol] 14.8 G/dL Normal 13.0 - 17.5 G/dL Workflow SS Lymphocytes (Bld) [#/Vol] 1.4 103/mcL Normal 0.9 - 4.3 10^3/mcL Workflow SS Lymphocytes/100 WBC (Bld) 14.1 % Low 20.0 - 40.0 % Workflow SS MCH (RBC) [Entitic mass] 31.8 pg Normal 27.0 - 33.0 pg Workflow SS MCHC 34.7 G/dL Normal 32.0 - 36.0 G/dL Workflow MCV (RBC) [Entitic vol] 91.8 fL Normal 81.0 - 100.0 fL Workflow Monocytes (Bld) [#/Vol] 1.5 103/mcL High 0.1 - 1.4 10^3/mcL AH Workflow SS Monocytes/100 WBC (Bld) 14.7 % High 2.0 - 13.0 % AH Workflow SS Neutrophils (Bld) [#/Vol] 7.1 103/mcL Normal 2.3 - 8.1 10^3/mcL AH Workflow SS Neutrophils/100 WBC (Bld) 70.0 % Normal 50.0 - 75.0 % AH Workflow SS Platelet mean volume (Bld) [Entitic vol] 8.0 fL Normal 6.4 - 10.5 fL AH Workflow SS Platelets (Bld) [#/Vol] 231 103/mcL Normal 150 - 450 10^3/mcL AH Workflow SS RBC (Bld) [#/Vol] 4.64 106/mcL Normal 4.50 - 6.00 10^6/mcL AH Workflow SS TSH Qn 2.306 mIU/mL Normal 0.550 - 4.780 mIU/mL ADM SS WBC (Bld) [#/Vol] 10.1 103/mcL Normal 4.5 - 10.8 10^3/mcL AH Workflow SS LABORATORYOrdered By: Rodolfo Baird on 10-20-2024 Cholesterol [Mass/Vol] 149 mg/dL Normal 50 - 199 mg/dL ADM SS Comment on above: Interpretive Data: C holesterol Reference Interval: Less than 200 Desirable 200-239 Borderline high risk 240 and above High risk Cholesterol in HDL [Mass/Vol] 42 mg/dL Normal 40 - 59 mg/dL ADM SS Cholesterol in LDL [Mass/Vol] 81 mg/dL Normal 0 - 129 mg/dL ADM SS Triglyceride [Mass/Vol] 129 mg/dL Normal 3 - 149 mg/dL [facility] SS LIPIDon 10-20-2024 Cholesterol [Mass/Vol] 149 mg/dL Normal 50-199 [facility] Comment on above: Result Comment: Chol esterol Reference Interval: Less than 200 Desirable 200-239 Borderline high risk 240 and above High risk Performed By: #### A PTT #### [address] [address] Cholesterol in HDL [Mass/Vol] 42 mg/dL Normal 40-[address] [facility] Comment on above: Performed By: #### A PTT #### [address] [address] Cholesterol in LDL [Mass/Vol] 81 mg/dL Normal 0-[address] [facility] Comment on above: Performed By: #### A PTT #### [place] [address] Triglyceride [Mass/Vol] 129 mg/dL Normal 3-[address] [facility] Comment on above: Performed By: #### A PTT #### [place] [address] MGon 10-20-2024 Magnesium [Mass/Vol] 2.0 mg/dL Normal 1.6-2.[address] [facility] Comment on above: Performed By: #### M G, GFR, BMP #### [place] [address] TSHon 10-20-2024 TSH 2.306 mIU/mL Normal 0.550-4.[address] [facility] Comment on above: Performed By: #### A PTT #### [place] [address] .Auto Diffon 10-19-2024 Basophil, Absolute 0.0 10 3/mcL Normal 0.0-0.[address] [facility] Comment on above: Performed By: #### A PTT #### [place] [id number] Basophils/100 WBC (Bld) 0.2 % Normal 0.0-2.[address] [facility] Comment on above: Performed By: #### A PTT #### [place] [id number] Eosinophil, Absolute 0.0 10 3/mcL Normal 0.0-0.7 [facility] Comment on above: Performed By: #### A PTT #### [address] [address] Eosinophils/100 WBC (Bld) 0.3 % Normal 0.0-6.[address] [facility] Comment on above: Performed By: #### A PTT #### [place] [address] Lymphocyte, Absolute 1.3 10 3/mcL Normal 0.9-4.3 [facility] Comment on above: Performed By: #### A PTT #### [facility] [address] [place] [address] Lymphocytes/100 WBC (Bld) 12.0 % Low 20.0-40.[address] [facility] Comment on above: Performed By: #### A PTT #### [facility] [address] [place] [address] Monocyte, Absolute 1.4 10 3/mcL Normal 0.1-1.[address] [facility] Comment on above: Performed By: #### A PTT #### [facility] [address] [place] [address] Monocytes/100 WBC (Bld) 12.7 % Normal 2.0-13.[address] [facility] Comment on above: Performed By: #### A PTT #### [address] [address] Neutrophils/100 WBC (Bld) 74.8 % Normal 50.0-75.[address] [facility] Comment on above: Performed By: #### A PTT #### [facility] [address] [place] [address] .GFRon 10-19-2024 Estimated Glomerular Filtration Rate 107 ml/min/1.73sqm Normal [facility] Comment on above: Result Comment: Stages of Chronic Kidney Disease (CKD) Stage Description eGFR(ml/min/1.73 sq.m.) CKD 1 Normal kidney function or >=90 normal kindney function with possible kidney damage (ex. Proteinuria) CKD 2 Kidney damage with mild loss 60-89 of kidney function CKD 3a Mild to moderate loss of kidney 45-59 function CKD 3b Moderate to severe loss of 30-44 of kindey function CKD 4 Severe loss of kidney function 15-29 CKD 5 Kidney failure <15 Note: (go live 2024) the eGFR calculation was updated to the 2020 CKD-EPI creatinine equation without a race factor to calculate the eGFR results. Performed By: #### A PTT #### [facility] [address] [place] [address] .NEUABSon 10-19-2024 Neutrophil, Absolute 8.4 10 3/mcL High 2.3-8.1 [facility] Comment on above: Performed By: #### A PTT #### [address] [address] APTTon 10-19-2024 aPTT Coag (Bld) [Time] 56.4 s High 25.0-35.0 [facility] Comment on above: Result Comment: For Heparin anticoagulation therapy, the recommended therapeutic range is: 54-77 seconds (APTT Correlation with Anti-Xa therapeutic range of 0.3-0.7 units/ml). PLEASE REFERENCE THE PHARMACY PROTOCOL FOR DOSING. Performed By: #### A PTT #### [place] [id number] aPTT Coag (Bld) [Time] 58.4 s High 25.0-35.0 [facility] Comment on above: Result Comment: For Heparin anticoagulation therapy, the recommended therapeutic range is: 54-77 seconds (APTT Correlation with Anti-Xa therapeutic range of 0.3-0.7 units/ml). PLEASE REFERENCE THE PHARMACY PROTOCOL FOR DOSING. Performed By: #### A PTT #### [place] [address] BMPon 10-19-2024 BUN/Creatinine Ratio 9.8 ratio Low 10.0-22.[address] [facility] Comment on above: Performed By: #### A PTT #### [address] [address] Calcium [Mass/Vol] 8.7 mg/dL Normal 8.7-10.4 [facility] Comment on above: Performed By: #### A PTT #### [address] [address] Chloride [Moles/Vol] 107 mmol/L Normal 98-[address] [facility] Comment on above: Performed By: #### A PTT #### [address] [address] CO2 [Moles/Vol] 24 mmol/L Normal 22-[address] [facility] Comment on above: Performed By: #### A PTT #### [address] [address] Creatinine [Mass/Vol] 0.61 mg/dL Normal 0.60-1.40 [facility] Comment on above: Result Comment: Test ing performed on RegenaStem analyzer using enzymatic creatinine methodology. Performed By: #### A PTT #### [place] [id number] Electrolyte Balance 10.0 mEq/L Normal 4.0-15.0 [facility] Comment on above: Performed By: #### A PTT #### [place] [id number] Glucose [Mass/Vol] 97 mg/dL Normal 82-115 [facility] Comment on above: Performed By: #### A PTT #### [place] [id number] Potassium [Moles/Vol] 3.6 mmol/L Normal 3.5-5.0 [facility] Comment on above: Performed By: #### A PTT #### [place] [id number] Sodium [Moles/Vol] 141 mmol/L Normal 136-145 [facility] Comment on above: Performed By: #### A PTT #### [place] [id number] Urea nitrogen [Mass/Vol] 6.0 mg/dL Low 8.0-22.[address] [facility] Comment on above: Performed By: #### A PTT #### [address] [address] CBCon 10-19-2024 Erythrocyte distribution width (RBC) [Ratio] 14.2 % Normal 11.5-15.[address] [facility] Comment on above: Performed By: #### A PTT #### [place] [id number] Hematocrit (Bld) [Volume fraction] 42.2 % Normal 40.0-52.[address] [facility] Comment on above: Performed By: #### A PTT #### [place] [id number] Hgb 14.6 G/dL Normal 13.0-17.[address] [facility] Comment on above: Performed By: #### A PTT #### [place] [id number] MCH (RBC) [Entitic mass] 31.8 pg Normal 27.0-33.[address] [facility] Comment on above: Performed By: #### A PTT #### [place] [address] MCHC 34.5 G/dL Normal 32.0-36.[address] [facility] Comment on above: Performed By: #### A PTT #### [place] [address] MCV (RBC) [Entitic vol] 92.2 fL Normal 81.0-100.[address] [facility] Comment on above: Performed By: #### A PTT #### [place] [address] Platelet 227 10 3/mcL Normal 150-[address] [facility] Comment on above: Performed By: #### A PTT #### [place] [address] Platelet mean volume (Bld) [Entitic vol] 8.1 fL Normal 6.4-10.[address] [facility] Comment on above: Performed By: #### A PTT #### [place] [address] RBC 4.58 10 6/mcL Normal 4.50-6.[address] [facility] Comment on above: Performed By: #### A PTT #### [place] [address] WBC 11.2 10 3/mcL High 4.5-10.[address] [facility] Comment on above: Performed By: #### A PTT #### [place] [address] LABORATORYOrdered By: SYSTEM SYSTEM on 10-19-2024 aPTT Coag (Bld) [Time] 56.4 s High 25.0 - 35.0 seconds [facility] SS Comment on above: Interpretive Data: F or Heparin anticoagulation therapy, the recommended therapeutic range is: 54-77 seconds (APTT Correlation with Anti-Xa therapeutic range of 0.3-0.7 units/ml). PLEASE REFERENCE THE PHARMACY PROTOCOL FOR DOSING. Basophils (Bld) [#/Vol] 0.0 103/mcL Normal 0.0 - 0.3 10^3/mcL Workflow SS Basophils/100 WBC (Bld) 0.2 % Normal 0.0 - 2.5 % Workflow SS Calcium [Mass/Vol] 8.7 mg/dL Normal 8.7 - 10. 4 mg/dL ADM SS Chloride [Moles/Vol] 107 mmol/L Normal 98 - 11 0 mEq/L ADM SS CO2 [Moles/Vol] 24 mmol/L Normal 22 - 32 mEq/L ADM SS Creatinine [Mass/Vol] 0.61 mg/dL Normal 0.60 - 1.40 mg/dL ADM SS Comment on above: Interpretive Data: T esting performed on RegenaStem analyzer using enzymatic creatinine methodology. Electrolyte Balance 10.0 mEq/L Normal 4.0 - 15 .0 mEq/L ADM SS Eosinophils (Bld) [#/Vol] 0.0 103/mcL Normal 0.0 - 0.7 10^3/mcL Workflow SS Eosinophils/100 WBC (Bld) 0.3 % Normal 0.0 - 6.0 % Workflow SS Erythrocyte distribution width (RBC) [Ratio] 14.2 % Normal 11.5 - 15.5 % Workflow SS Estimated Glomerular Filtration Rate 107 ml/min/1.73sqm Invalid Interpretation Code Chemistry S Comment on above: Interpretive Data: Stages of Chronic Kidney Disease (CKD) Stage Description eGFR(ml/min/1.73 sq.m.) CKD 1 Normal kidney function or >=90 normal kindney function with possible kidney damage (ex. Proteinuria) CKD 2 Kidney damage with mild loss 60-89 of kidney function CKD 3a Mild to moderate loss of kidney 45-59 function CKD 3b Moderate to severe loss of 30-44 of kindey function CKD 4 Severe loss of kidney function 15-29 CKD 5 Kidney failure <15 Note: (go live 2024) the eGFR calculation was updated to the 2020 CKD-EPI creatinine equation without a race factor to calculate the eGFR results. Glucose [Mass/Vol] 97 mg/dL Normal 82 - 115 mg/dL ADM SS Hematocrit (Bld) [Volume fraction] 42.2 % Normal 40.0 - 52.0 % Workflow SS Hemoglobin (Bld) [Mass/Vol] 14.6 G/dL Normal 13.0 - 17.5 G/dL AH Workflow SS Lymphocytes (Bld) [#/Vol] 1.3 103/mcL Normal 0.9 - 4.3 10^3/mcL AH Workflow SS Lymphocytes/100 WBC (Bld) 12.0 % Low 20.0 - 40.0 % AH Workflow SS Magnesium [Mass/Vol] 1.9 mg/dL Normal 1.6 - 2 .4 mg/dL AH ADM SS MCH (RBC) [Entitic mass] 31.8 pg Normal 27.0 - 33.0 pg AH Workflow SS MCHC 34.5 G/dL Normal 32.0 - 36.0 G/dL AH Workflow SS MCV (RBC) [Entitic vol] 92.2 fL Normal 81.0 - 100.0 fL AH Workflow SS Monocytes (Bld) [#/Vol] 1.4 103/mcL Normal 0.1 - 1.4 10^3/mcL AH Workflow SS Monocytes/100 WBC (Bld) 12.7 % Normal 2.0 - 13.0 % AH Workflow SS Neutrophils (Bld) [#/Vol] 8.4 103/mcL High 2.3 - 8.1 10^3/mcL AH Workflow SS Neutrophils/100 WBC (Bld) 74.8 % Normal 50.0 - 75.0 % AH Workflow SS Platelet mean volume (Bld) [Entitic vol] 8.1 fL Normal 6.4 - 10.5 fL AH Workflow SS Platelets (Bld) [#/Vol] 227 103/mcL Normal 150 - 450 10^3/mcL AH Workflow SS Potassium [Moles/Vol] 3.6 mmol/L Normal 3.5 - 5.0 mEq/L ADM SS RBC (Bld) [#/Vol] 4.58 106/mcL Normal 4.50 - 6.00 10^6/mcL AH Workflow SS Sodium [Moles/Vol] 141 mmol/L Normal 136 - 145 mEq/L ADM SS Urea nitrogen [Mass/Vol] 6.0 mg/dL Low 8.0 - 22.0 mg/dL AH ADM SS Urea nitrogen/Creatinine [Mass ratio] 9.8 ratio Low 10.0 - 22.0 ratio ADM SS WBC (Bld) [#/Vol] 11.2 103/mcL High 4.5 - 10.8 10^3/mcL Workflow SS MGon 10-19-2024 Magnesium [Mass/Vol] 1.9 mg/dL Normal 1.6-2.4 [facility] Comment on above: Performed By: #### A PTT #### [facility] [address] [place] [address] MYCOon 10-19-2024 Mycoplasma IgM Negative Normal [facility] Comment on above: Result Comment: INTE RPRETATION OF MYCOPLASMA IgM: Negative: IgM to M. pneumoniae Absent, or at levels below the assay limit of detection. Positive: IgM to M. pneumoniae Present. Invalid: Test results are invalid due to invalid internal control. Assay was performed in duplicate. Repeat testing is suggested if clinically indicated. Performed By: #### M YCO ####[facility] [place] [address] XR CHEST 1 VIEWon 10-19-2024 XR CHEST 1 VIEW ORIGINAL EXAMINATION: ONE XRAY VIEW OF THE CHEST10/19/2024 9:31 am Portable upright COMPARISON: None HISTORY: ORDERING SYSTEM PROVIDED HISTORY: Reason for Exam: SOB, FINDINGS: Normal heart size and mediastinal contours for age and projection. Left-sided pacemaker with dual intracardiac leads. There is diffuse interstitial and peribronchial thickening. Minor right basilar atelectasis, no significant consolidation or pleural effusion. No acute rib fractures. IMPRESSION: Interstitial edema pattern. Interpreted by: Rene Solano MD Preliminary Report By: Rene Solano MD Electronically signed By Rene Solano MD Dictated Date: 10/19/2024 9:50:20 AM Prelim Date: 10/19/2024 9:50:54 AM Sign Date: 10/19/2024 9:50:54 AM Ordering Provider: FALGUNI MOSER Normal [facility] .Auto Diffon 10-18-2024 Basophil, Absolute 0.1 10 3/mcL Normal 0.0-0.2 [facility] Comment on above: Performed By: #### P RO, APTT, CBC, ADIFF, ANEU, MG, CMP, GFR ####[facility] [place], [place] [address] Basophils/100 WBC (Bld) 0.4 % Normal 0.0-2.5 [facility] Comment on above: Performed By: #### P RO, APTT, CBC, ADIFF, ANEU, MG, CMP, GFR ####[place] [address] [place], [place] [address] Eosinophil, Absolute 0.0 10 3/mcL Normal 0.0-0.7 [facility] Comment on above: Performed By: #### P RO, APTT, CBC, ADIFF, ANEU, MG, CMP, GFR ####[facility] [place], [place] [address] Eosinophils/100 WBC (Bld) 0.1 % Normal 0.0-7.0 [facility] Comment on above: Performed By: #### P RO, APTT, CBC, ADIFF, ANEU, MG, CMP, GFR ####[place] [address] [place], [place] [address] Lymphocyte, Absolute 1.1 10 3/mcL Normal 0.9-4.3 [facility] Comment on above: Performed By: #### P RO, APTT, CBC, ADIFF, ANEU, MG, CMP, GFR ####[address] [address] Lymphocytes/100 WBC (Bld) 8.0 % Low 20.0-40.0 [facility] Comment on above: Performed By: #### P RO, APTT, CBC, ADIFF, ANEU, MG, CMP, GFR ####[place] [address] [place], [place] [address] Monocyte, Absolute 1.4 10 3/mcL Normal 0.1-1.4 [facility] Comment on above: Performed By: #### P RO, APTT, CBC, ADIFF, ANEU, MG, CMP, GFR ####[facility] [place], [place] [address] Monocytes/100 WBC (Bld) 10.6 % Normal 2.0-13.0 [facility] Comment on above: Performed By: #### P RO, APTT, CBC, ADIFF, ANEU, MG, CMP, GFR ####[address] [address] Neutrophils/100 WBC (Bld) 80.9 % High 50.0-75.0 [facility] Comment on above: Performed By: #### P RO, APTT, CBC, ADIFF, ANEU, MG, CMP, GFR ####[place] [place], [place] [address] .GFRon 10-18-2024 Estimated Glomerular Filtration Rate 100 ml/min/1.73sqm Normal [facility] Comment on above: Result Comment: Stages of Chronic Kidney Disease (CKD) Stage Description eGFR(ml/min/1.73 sq.m.) CKD 1 Normal kidney function or >=90 normal kindney function with possible kidney damage (ex. Proteinuria) CKD 2 Kidney damage with mild loss 60-89 of kidney function CKD 3a Mild to moderate loss of kidney 45-59 function CKD 3b Moderate to severe loss of 30-44 of kindey function CKD 4 Severe loss of kidney function 15-29 CKD 5 Kidney failure <15 Note: (go live 2024) the eGFR calculation was updated to the 2020 CKD-EPI creatinine equation without a race factor to calculate the eGFR results. Performed By: #### P RO, APTT, CBC, ADIFF, ANEU, MG, CMP, GFR ####[place] [address] [place], [place] [address] .NEUABSon 10-18-2024 Neutrophil, Absolute 10.7 10 3/mcL High 2.3-8.1 A [facility] Comment on above: Performed By: #### P RO, APTT, CBC, ADIFF, ANEU, MG, CMP, GFR ####[place] [address] [place], [place] [address] .Urinalysis Microscopic (AO) on 10-18-2024 UA RBC 0-[address] [facility] Comment on above: Performed By: #### U AMICAO, UA ####[place] [address] [place], [place] [address] UA Squam Epithelial None Seen Normal None Seen [facility] Comment on above: Performed By: #### U AMICAO, UA ####[place] [address] [place], [place] [address] UA WBC None Seen Normal None Seen [facility] Comment on above: Performed By: #### U AMICAO, UA ####[place] [address] [place], [place] [address] APTTon 10-18-2024 aPTT Coag (Bld) [Time] 63.7 s High 25.0-35.0 [facility] Comment on above: Result Comment: For Heparin anticoagulation therapy, the recommended therapeutic range is: 54-77 seconds (APTT Correlation with Anti-Xa therapeutic range of 0.3-0.7 units/ml). PLEASE REFERENCE THE PHARMACY PROTOCOL FOR DOSING. Performed By: #### A PTT #### [address] [address] aPTT Coag (Bld) [Time] 48.1 s High 25.0-35.0 [facility] Comment on above: Result Comment: For Heparin anticoagulation therapy, the recommended therapeutic range is: 54-77 seconds (APTT Correlation with Anti-Xa therapeutic range of 0.3-0.7 units/ml). PLEASE REFERENCE THE PHARMACY PROTOCOL FOR DOSING. Performed By: #### A PTT #### [address] [address] aPTT Coag (Bld) [Time] 85.2 s High 25.0-35.0 [facility] Comment on above: Result Comment: For Heparin anticoagulation therapy, the recommended therapeutic range is: 54-77 seconds (APTT Correlation with Anti-Xa therapeutic range of 0.3-0.7 units/ml). PLEASE REFERENCE THE PHARMACY PROTOCOL FOR DOSING. Performed By: #### A PTT #### [address] [address] aPTT Coag (Bld) [Time] 184.8 s Criticall y abnormal 25.0-35.0 [facility] Comment on above: Result Comment: For Heparin anticoagulation therapy, the recommended therapeutic range is: 45.4-75.9 seconds. Patients on heparin therapy may have an extreme result. Performed By: #### P RO, APTT, CBC, ADIFF, ANEU, MG, CMP, GFR ####[place] [address] [place], [place] [address] CBCon 10-18-2024 Erythrocyte distribution width (RBC) [Ratio] 14.4 % Normal 11.5-15.5 [facility] Comment on above: Performed By: #### P RO, APTT, CBC, ADIFF, ANEU, MG, CMP, GFR ####[place] [address] [place] [phone] Hematocrit (Bld) [Volume fraction] 41.6 % Normal 40.0-52.0 [facility] Comment on above: Performed By: #### P RO, APTT, CBC, ADIFF, ANEU, MG, CMP, GFR ####[place] [address] [place] [id number] Hgb 14.5 G/dL Normal 13.0-17.5 [facility] Comment on above: Performed By: #### P RO, APTT, CBC, ADIFF, ANEU, MG, CMP, GFR ####[place] [address] [place] [phone] MCH (RBC) [Entitic mass] 31.8 pg Normal 27.0-33.0 [facility] Comment on above: Performed By: #### P RO, APTT, CBC, ADIFF, ANEU, MG, CMP, GFR ####[place] [address] [place] [address] MCHC 34.7 G/dL Normal 32.0-36.0 [facility] Comment on above: Performed By: #### P RO, APTT, CBC, ADIFF, ANEU, MG, CMP, GFR ####[place] [address] [place] [phone] MCV (RBC) [Entitic vol] 91.6 fL Normal 81.0-100.0 [facility] Comment on above: Performed By: #### P RO, APTT, CBC, ADIFF, ANEU, MG, CMP, GFR ####[place] [address] [place] [phone] Platelet 235 10 3/mcL Normal 150-450 [facility] Comment on above: Performed By: #### P RO, APTT, CBC, ADIFF, ANEU, MG, CMP, GFR ####[place] [address] [place] [phone] Platelet mean volume (Bld) [Entitic vol] 7.7 fL Normal 6.4-10.5 [facility] Comment on above: Performed By: #### P RO, APTT, CBC, ADIFF, ANEU, MG, CMP, GFR ####[place] [address] [place], [place] [address] RBC 4.54 10 6/mcL Normal 4.50-6.00 [facility] Comment on above: Performed By: #### P RO, APTT, CBC, ADIFF, ANEU, MG, CMP, GFR ####[place] [address] [place], [place] [address] WBC 13.3 10 3/mcL High 4.5-10.8 [facility] Comment on above: Performed By: #### P RO, APTT, CBC, ADIFF, ANEU, MG, CMP, GFR ####[facility] [place], [place] [address] CMPon 10-18-2024 Albumin Level 3.6 G/dL Normal 3.4-4.8 [facility] Comment on above: Performed By: #### P RO, APTT, CBC, ADIFF, ANEU, MG, CMP, GFR ####[place] [address] [place], [place] [address] Albumin/Globulin [Mass ratio] 1.2 {ratio} Normal 1.1-2.5 [facility] Comment on above: Performed By: #### P RO, APTT, CBC, ADIFF, ANEU, MG, CMP, GFR ####[facility] [place], [place] [address] ALP [Catalytic activity/Vol] 95 U/L Normal 40-135 [facility] Comment on above: Performed By: #### P RO, APTT, CBC, ADIFF, ANEU, MG, CMP, GFR ####[facility] [place], [place] [address] ALT [Catalytic activity/Vol] 50 U/L Normal 16-63 [facility] Comment on above: Performed By: #### P RO, APTT, CBC, ADIFF, ANEU, MG, CMP, GFR ####[facility] [place], [place] [address] AST [Catalytic activity/Vol] 27 U/L Normal 10-40 [facility] Comment on above: Performed By: #### P RO, APTT, CBC, ADIFF, ANEU, MG, CMP, GFR ####[place] [address] [place], [place] [address] Bili Total 1.0 mg/dL Normal 0.2-1.0 [facility] Comment on above: Result Comment: Use of this assay is not recommended for patients undergoing treatment with eltrombopag due to the potential for falsely elevated results. Performed By: #### P RO, APTT, CBC, ADIFF, ANEU, MG, CMP, GFR ####[place] [address] [place], [place] [address] BUN/Creatinine Ratio 9 ratio Normal 7-27 [facility] Comment on above: Performed By: #### P RO, APTT, CBC, ADIFF, ANEU, MG, CMP, GFR ####[place] [address] [place], [place] [address] Calcium [Mass/Vol] 8.9 mg/dL Normal 8.4-10.2 [facility] Comment on above: Performed By: #### P RO, APTT, CBC, ADIFF, ANEU, MG, CMP, GFR ####[place] [address] [place], [place] [address] Chloride [Moles/Vol] 106 mmol/L Normal 98-107 [facility] Comment on above: Performed By: #### P RO, APTT, CBC, ADIFF, ANEU, MG, CMP, GFR ####[place] [address] [place], [place] [address] CO2 [Moles/Vol] 21 mmol/L Low 23-31 [facility] Comment on above: Performed By: #### P RO, APTT, CBC, ADIFF, ANEU, MG, CMP, GFR ####[place] [address] [place], [place] [address] Creatinine [Mass/Vol] 0.78 mg/dL Normal 0.70-1.30 [facility] Comment on above: Result Comment: Test ing performed on Siemens Dimension EXL analyzer using a modified kinetic Usha technique. Performed By: #### P RO, APTT, CBC, ADIFF, ANEU, MG, CMP, GFR ####[place] [address] [address] Electrolyte Balance 16.0 mEq/L High 4.0-15.0 [facility] Comment on above: Performed By: #### P RO, APTT, CBC, ADIFF, ANEU, MG, CMP, GFR ####M[place] [address] [address] Globulin 3.0 G/dL Normal 1.5-3.8 [facility] Comment on above: Performed By: #### P RO, APTT, CBC, ADIFF, ANEU, MG, CMP, GFR ####[address] [address] Glucose [Mass/Vol] 113 mg/dL Normal 80-115 [facility] Comment on above: Performed By: #### P RO, APTT, CBC, ADIFF, ANEU, MG, CMP, GFR ####[address] [address] Potassium [Moles/Vol] 3.9 mmol/L Normal 3.5-5.1 [facility] Comment on above: Performed By: #### P RO, APTT, CBC, ADIFF, ANEU, MG, CMP, GFR ####[address] [address] Sodium [Moles/Vol] 143 mmol/L Normal 136-145 [facility] Comment on above: Performed By: #### P RO, APTT, CBC, ADIFF, ANEU, MG, CMP, GFR ####M[place] [address] [address] Total Protein 6.6 G/dL Normal 6.4-8.2 [facility] Comment on above: Performed By: #### P RO, APTT, CBC, ADIFF, ANEU, MG, CMP, GFR ####[place] [address] [place] [address] Urea nitrogen [Mass/Vol] 7 mg/dL Normal 7-18 [facility] Comment on above: Performed By: #### P RO, APTT, CBC, ADIFF, ANEU, MG, CMP, GFR ####[place] [address] [place] [address] CVFLURVon 10-18-2024 FLU A PCR Negative Normal Negative [facility] Comment on above: Performed By: #### M RSAPCR ####[place] [address]#### CVFLURV ####[place] [address] FLU B PCR Negative Normal Negative [facility] Comment on above: Performed By: #### M RSAPCR ####[place] [address]#### CVFLURV ####[place] [address] RSV PCR Negative Normal Negative [facility] Comment on above: Performed By: #### M RSAPCR ####[place] [address]#### CVFLURV ####[place] [address] SARS-CoV-2 (COVID-19) RNA JOHNNY+probe Ql (Unsp spec) Negative Normal Negative [facility] Comment on above: Result Comment: Resu lts from the Xpert Xpress CoV-2/Flu/RSV plus test should be correlated with the clinical history, epidemiological data, and other data available to the clinical evaluating the patient. Performance of the Xpert Xpress CoV-2/Flu/RSV plus test has only been established in nasopharyngeal swab specimen. Erroneous test results might occur from improper specimen collection, failure to follow the recommended sample collection, handling and storage procedures, technical error, or sample mix-up. False negative results may occur if a virus is present at a level below the analytical limit of detection. Viral nucleic acid may persist in vivo, independent of virus viability. Detection of analyte target(s) does not imply that the corresponding virus(es) are infectious or are the causative agents for clinical symptoms. Recent patient exposure to FluMist or other live attenuated influenza vaccines may cause inaccurate positive results. Performed By: #### M RSAPCR ####[facility] [place] [address]#### CVFLURV ####[place] [address] [place], [place] [address] LABORATORYOrdered By: SYSTEM SYSTEM on 10-18-2024 Lactate [Moles/Vol] 1.2 mmol/L Normal 0.5 - 2. 2 mmol/L ADM SS Natriuretic peptide.B prohormone N-Terminal IA [Mass/Vol] 2715 pg/mL High 0 - 900 pg/mL ADM SS Troponin I.cardiac DL <= 0.01 ng/mL [Mass/Vol] 1306 ng/L High 0 - 54 ng/L AH ADM SS Comment on above: Interpretive Data: High Sensitive Troponin I Reference Ranges: Female: 0-34 ng/L Male: 0-54 ng/L Testing performed on [employer] analyzer using direct chemiluminescent technology. LABORATORYOrdered By: Josette Plaza on 10-18-2024 M. pneumoniae IgM IA Ql (S) Negative 12 (10/18/24 7:10 AM) Normal [facility] Comment on above: Interpretive Data: I NTERPRETATION OF MYCOPLASMA IgM: Negative: IgM to M. pneumoniae Absent, or at levels below the assay limit of detection. Positive: IgM to M. pneumoniae Present. Invalid: Test results are invalid due to invalid internal control. Assay was performed in duplicate. Repeat testing is suggested if clinically indicated. LACon 10-18-2024 Lactic Acid Lvl 1.2 mmol/L Normal 0.5-2.2 [facility] Comment on above: Performed By: #### A PTT #### [facility] [address] [place] [address] MGon 10-18-2024 Magnesium [Mass/Vol] 1.7 mg/dL Low 1.8-2.4 [facility] Comment on above: Performed By: #### P RO, APTT, CBC, ADIFF, ANEU, MG, CMP, GFR ####[address] [address] MRSAPCRon 10-18-2024 MRSA (PCR) Not detected Normal Not Detected [facility] Comment on above: Result Comment: Note s [id number] Performed By: #### M RSAPCR ####[place] [address]#### CVFLURV ####[place] [address] MRSA PCR Int Normal [facility] Comment on above: Result Comment: MRSA DNA not detected by Real-Time Polymerase Chain Reaction (PCR). A negative result may be due to intermittent colonization. Colonization may vary depending on patient treatment, patient status, or exposure to high-risk environments. As with all PCR based in vitro diagnostic tests, extremely low levels of target below the limit of detection of the assay may be detected, but results may not be reproducible. See Below Performed By: #### M RSAPCR ####[place] [address]#### CVFLURV ####[place] [address] MYCOon 10-18-2024 Mycoplasma IgM Negative Normal [facility] Comment on above: Result Comment: INTE RPRETATION OF MYCOPLASMA IgM: Negative: IgM to M. pneumoniae Absent, or at levels below the assay limit of detection. Positive: IgM to M. pneumoniae Present. Invalid: Test results are invalid due to invalid internal control. Assay was performed in duplicate. Repeat testing is suggested if clinically indicated. Performed By: #### A PTT #### [place] [address] PBNPon 10-18-2024 Natriuretic peptide B (Bld) [Mass/Vol] 2715 pg/mL High 0-[address] [facility] Comment on above: Performed By: #### A PTT #### [place] [address] PROon 10-18-2024 PT Coag (PPP) [Time] 13.8 s Normal 9.0-14.4 [facility] Comment on above: Performed By: #### P RO, APTT, CBC, ADIFF, ANEU, MG, CMP, GFR ####Mack [address] [place], [place] [address] PT International Ratio 1.2 Normal [facility] Comment on above: Result Comment: The [employer] (CHEST, 1992, 102:[id number]-[id number]) recommended therapeutic range for oral anticoagulant therapy is: LOW RISK: Prophylaxis of venous thrombosis INR: 2.0-3.0 Treatment of pulmonary embolism 2.0-3.0 Prevention of systemic embolism 2.0-3.0 HIGH RISK: Mechanical prosthetic valves 2.5-3.5 Performed By: #### P RO, APTT, CBC, ADIFF, ANEU, MG, CMP, GFR ####[place] [address] [place], [place] [address] TROPHSon 10-18-2024 High Sensitivity Troponin I 1306 ng/L High 0-[address] [facility] Comment on above: Result Comment: High Sensitive Troponin I Reference Ranges: Female: 0-34 ng/L Male: 0-54 ng/L Testing performed on [employer] analyzer using direct chemiluminescent technology. Performed By: #### A PTT #### [address] [address] High Sensitivity Troponin I 1830 ng/L High 0-76 [facility] Comment on above: Result Comment: High Sensitive Troponin I Reference Ranges: Female: 0-51 ng/L Male: 0-76 ng/L Testing performed on [employer] using a homogeneous sandwich chemiluminescent immunoassay based on [employer] technology. Performed By: #### T JOE ####[place] [place], [place] [address] High Sensitivity Troponin I 1570 ng/L High 0-76 [facility] Comment on above: Result Comment: High Sensitive Troponin I Reference Ranges: Female: 0-51 ng/L Male: 0-76 ng/L Testing performed on Dimension EXL using a homogeneous sandwich chemiluminescent immunoassay based on [employer] technology. Performed By: #### T JOE ####[place] [place], [place] [address] UAon 10-18-2024 Color (U) Yellow Normal [facility] Comment on above: Performed By: #### U AMICAO, UA ####[place] [place] [address] Glucose (U) [Mass/Vol] Negative Normal Negative [facility] Comment on above: Performed By: #### U AMICAO, UA ####[place] [address] [place] [address] Ketones Ql (U) >=[address] [facility] Comment on above: Performed By: #### U AMICAO, UA ####[place] [address] [place] [address] UA Appear Clear Normal Clear [facility] Comment on above: Performed By: #### U AMICAO, UA ####[place] [address] [place] [address] UA Bili Small Abnormal Negative [facility] Comment on above: Result Comment: Sugg est correlation with serum bilirubin and clinical findings if medically necessary. Performed By: #### U AMICAO, UA ####[place] [place] [address] UA Blood Small Abnormal Negative [facility] Comment on above: Performed By: #### U AMICAO, UA ####[place] [place] [address] UA Leuk Est Negative Normal Negative [facility] Comment on above: Performed By: #### U AMICAO, UA ####[place] [address] [place] [address] UA Nitrite Negative Normal Negative [facility] Comment on above: Performed By: #### U AMICAO, UA ####[place] [address] [place] [address] UA pH 5.5 Normal 5.0 - 8.0 [facility] Comment on above: Performed By: #### U AMICAO, UA ####[place] [address] [place] [address] UA Protein 30 mg/dL Normal Negative [facility] Comment on above: Performed By: #### U AMICAO, UA ####[place] [address] [place] [address] UA Spec Grav >=1.030 Abnormal 1.015-1.[address] [facility] Comment on above: Performed By: #### U ANAND UA ####[facility] [place], [place] [address] UA Specimen Type Clean Catch Normal [facility] Comment on above: Performed By: #### U ANAND, UA ####Mack [address] [place], [place] [address] UA Urobilinogen 0.2 E.U./dL Normal 0.2-1.0 [facility] Comment on above: Performed By: #### U ANAND UA ####[place] [address] [place], [place] [address] .Auto Diffon 10-17-2024 Basophil, Absolute 0.0 10 3/mcL Normal 0.0-0.2 [facility] Comment on above: Performed By: #### L MD STEVOW, CBC, ADIFF, CMP, GFR, ANEU #### [address] [address] Basophils/100 WBC (Bld) 0.1 % Normal 0.0-2.5 [facility] Comment on above: Performed By: #### L MD STEVOW, CBC, ADIFF, CMP, GFR, ANEU #### [address] [address] Eosinophil, Absolute 0.0 10 3/mcL Normal 0.0-0.7 [facility] Comment on above: Performed By: #### L IPMDW, CBC, ADIFF, CMP, GFR, ANEU #### [address] [address] Eosinophils/100 WBC (Bld) 0.0 % Normal 0.0-7.0 [facility] Comment on above: Performed By: #### L IP, MDW, CBC, ADIFF, CMP, GFR, ANEU #### [address] [address] Lymphocyte, Absolute 0.6 10 3/mcL Low 0.9-4.3 [facility] Comment on above: Performed By: #### L IP, MDW, CBC, ADIFF, CMP, GFR, ANEU #### [address] [address] Lymphocytes/100 WBC (Bld) 4.1 % Low 20.0-40.0 [facility] Comment on above: Performed By: #### L IP, MDW, CBC, ADIFF, CMP, GFR, ANEU #### [address] [address] Monocyte, Absolute 1.1 10 3/mcL Normal 0.1-1.4 [facility] Comment on above: Performed By: #### L IP, MDW, CBC, ADIFF, CMP, GFR, ANEU #### [address] [address] Monocytes/100 WBC (Bld) 8.1 % Normal 2.0-13.0 [facility] Comment on above: Performed By: #### L IP, MDW, CBC, ADIFF, CMP, GFR, ANEU #### [address] [address] Neutrophils/100 WBC (Bld) 87.7 % High 50.0-75.0 [facility] Comment on above: Performed By: #### L IP, MDW, CBC, ADIFF, CMP, GFR, ANEU #### [address] [address] .GFRon 10-17-2024 Estimated Glomerular Filtration Rate 85 ml/min/1.73sqm Normal [facility] Comment on above: Result Comment: Stages of Chronic Kidney Disease (CKD) Stage Description eGFR(ml/min/1.73 sq.m.) CKD 1 Normal kidney function or >=90 normal kindney function with possible kidney damage (ex. Proteinuria) CKD 2 Kidney damage with mild loss 60-89 of kidney function CKD 3a Mild to moderate loss of kidney 45-59 function CKD 3b Moderate to severe loss of 30-44 of kindey function CKD 4 Severe loss of kidney function 15-29 CKD 5 Kidney failure <15 Note: (go live 2024) the eGFR calculation was updated to the 2020 CKD-EPI creatinine equation without a race factor to calculate the eGFR results. Performed By: #### L IP, MDW, CBC, ADIFF, CMP, GFR, ANEU #### [place] [id number] .MDWon 10-17-2024 Monocyte Distribution Width 13.98 Normal 0.00-20.00 [facility] Comment on above: Result Comment: For ED adult patients suspected of sepsis, MDW<=20.0 does not rule out sepsis or risk of sepsis Performed By: #### L IP, MDW, CBC, ADIFF, CMP, GFR, ANEU #### [place] [address] .NEUABSon 10-17-2024 Neutrophil, Absolute 12.4 10 3/mcL High 2.3-8.1 A [facility] Comment on above: Performed By: #### L IP, MDW, CBC, ADIFF, CMP, GFR, ANEU #### [place] [address] CBCon 10-17-2024 Erythrocyte distribution width (RBC) [Ratio] 14.2 % Normal 11.5-15.5 [facility] Comment on above: Performed By: #### L IP, MDW, CBC, ADIFF, CMP, GFR, ANEU #### [place] [address] Hematocrit (Bld) [Volume fraction] 47.7 % Normal 40.0-52.0 [facility] Comment on above: Performed By: #### L IP, MDW, CBC, ADIFF, CMP, GFR, ANEU #### [place] [address] Hgb 16.0 G/dL Normal 13.0-17.5 [facility] Comment on above: Performed By: #### L IP, MDW, CBC, ADIFF, CMP, GFR, ANEU #### [place] [address] MCH (RBC) [Entitic mass] 30.7 pg Normal 27.0-33.0 [facility] Comment on above: Performed By: #### L JEFF WHITESIDE, CBC, ADIFF, CMP, GFR, ANEU #### [address] [address] MCHC 33.6 G/dL Normal 32.0-36.0 [facility] Comment on above: Performed By: #### L JEFF WHITESIDE, CBC, ADIFF, CMP, GFR, ANEU #### [address] [address] MCV (RBC) [Entitic vol] 91.4 fL Normal 81.0-100.0 [facility] Comment on above: Performed By: #### L JEFF WHITESIDE, CBC, ADIFF, CMP, GFR, ANEU #### [address] [address] Platelet 283 10 3/mcL Normal 150-450 [facility] Comment on above: Performed By: #### L JEFF WHITESIDE, CBC, ADIFF, CMP, GFR, ANEU #### [address] [address] Platelet mean volume (Bld) [Entitic vol] 7.5 fL Normal 6.4-10.5 [facility] Comment on above: Performed By: #### L JEFF WHITESIDE, CBC, ADIFF, CMP, GFR, ANEU #### [address] [address] RBC 5.22 10 6/mcL Normal 4.50-6.00 [facility] Comment on above: Performed By: #### L JEFF WHITESIDE, CBC, ADIFF, CMP, GFR, ANEU #### [address] [address] WBC 14.1 10 3/mcL High 4.5-10.8 [facility] Comment on above: Performed By: #### L JEFF WHITESIDE, CBC, ADIFF, CMP, GFR, ANEU #### [address] [address] CMPon 10-17-2024 Albumin Level 4.5 G/dL Normal 3.4-4.8 [facility] Comment on above: Performed By: #### L MD STEVOW, CBC, ADIFF, CMP, GFR, ANEU #### [place] [address] Albumin/Globulin [Mass ratio] 1.4 {ratio} Normal 1.1-2.5 [facility] Comment on above: Performed By: #### L MD STEVOW, CBC, ADIFF, CMP, GFR, ANEU #### [place] [address] ALP [Catalytic activity/Vol] 113 U/L Normal 40-135 [facility] Comment on above: Performed By: #### L MD STEVOW, CBC, ADIFF, CMP, GFR, ANEU #### [place] [address] ALT [Catalytic activity/Vol] 57 U/L Normal 16-63 [facility] Comment on above: Performed By: #### L JEFF WHITESIDE, CBC, ADIFF, CMP, GFR, ANEU #### [address] [address] AST [Catalytic activity/Vol] 33 U/L Normal 10-40 [facility] Comment on above: Performed By: #### L JEFF WHITESIDE, CBC, ADIFF, CMP, GFR, ANEU #### [address] [address] Bili Total 1.3 mg/dL High 0.2-1.0 [facility] Comment on above: Result Comment: Use of this assay is not recommended for patients undergoing treatment with eltrombopag due to the potential for falsely elevated results. Performed By: #### L MD STEVOW, CBC, ADIFF, CMP, GFR, ANEU #### [place] [address] BUN/Creatinine Ratio 11 ratio Normal 7-27 [facility] Comment on above: Performed By: #### L STEVO, W, CBC, ADIFF, CMP, GFR, ANEU #### [place] [id number] Calcium [Mass/Vol] 9.6 mg/dL Normal 8.4-10.2 [facility] Comment on above: Performed By: #### L JEFF WHITESIDE, CBC, ADIFF, CMP, GFR, ANEU #### [address] [address] Chloride [Moles/Vol] 103 mmol/L Normal 98-107 [facility] Comment on above: Performed By: #### L JEFF WHITESIDE, CBC, ADIFF, CMP, GFR, ANEU #### [place] [address] CO2 [Moles/Vol] 24 mmol/L Normal 23-31 [facility] Comment on above: Performed By: #### L JEFF WHITESIDE, CBC, ADIFF, CMP, GFR, ANEU #### [place] [address] Creatinine [Mass/Vol] 0.99 mg/dL Normal 0.70-1.30 [facility] Comment on above: Result Comment: Test ing performed on Siemens Dimension EXL analyzer using a modified kinetic Usha technique. Performed By: #### L JEFF WHITESIDE, CBC, ADIFF, CMP, GFR, ANEU #### [address] [address] Electrolyte Balance 12.0 mEq/L Normal 4.0-15.0 [facility] Comment on above: Performed By: #### L JEFF WHITESIDE, CBC, ADIFF, CMP, GFR, ANEU #### [address] [address] Globulin 3.3 G/dL Normal 1.5-3.8 [facility] Comment on above: Performed By: #### L JEFF WHITESIDE, CBC, ADIFF, CMP, GFR, ANEU #### [address] [address] Glucose [Mass/Vol] 141 mg/dL High 80-115 [facility] Comment on above: Performed By: #### L JEFF WHITESIDE, CBC, ADIFF, CMP, GFR, ANEU #### [address] [address] Potassium [Moles/Vol] 3.9 mmol/L Normal 3.5-5.1 [facility] Comment on above: Performed By: #### L IP, MDW, CBC, ADIFF, CMP, GFR, ANEU #### [place] [id number] [place], [place] [address] Sodium [Moles/Vol] 139 mmol/L Normal 136-145 [facility] Comment on above: Performed By: #### L IP, MDW, CBC, ADIFF, CMP, GFR, ANEU #### [address] [address] Total Protein 7.8 G/dL Normal 6.4-8.2 [facility] Comment on above: Performed By: #### L IP, MDW, CBC, ADIFF, CMP, GFR, ANEU #### [address] [address] Urea nitrogen [Mass/Vol] 11 mg/dL Normal 7-18 [facility] Comment on above: Performed By: #### L IP, MDW, CBC, ADIFF, CMP, GFR, ANEU #### [address] [address] [address] ABD/PELVIS W/ IV CONTRAST ONLYon 10-17-2024 CT ABD/PELVIS W/ IV CONTRAST ONLY ORIGINAL EXAMINATION: CT OF THE ABDOMEN AND PELVIS WITH CONTRAST10/17/2024 6:[address] ABDOMEN/PELVIS WITH CONTRAST TECHNIQUE: CT of the abdomen and pelvis was performed with the administration of intravenous contrast. Multiplanar reformatted images are provided for review. Automated exposure control, iterative reconstruction, and/or weight based adjustment of the mA/kV was utilized to reduce the radiation dose to as low as reasonably achievable. COMPARISON: Abdomen, June 26, 2023 HISTORY: ORDERING SYSTEM PROVIDED HISTORY: Reason for Exam: pain FINDINGS: The size, density, and morphology of the liver, spleen, adrenals, kidneys, pancreas and unopacified loops of bowel are unremarkable. The opacified aorta demonstrates normal size and morphology without aneurysmal dilation or dissection. There are no enlarged lymph nodes by pathologic size criteria. Appendix is normal. Scattered diverticula are present without surrounding inflammatory changes. There is no free fluid within the pelvis. The bladder and pelvic organs have an unremarkable CT appearance. Degenerative changes are present within the lumbar spine. The osseous structures are without gross lytic or sclerotic lesion. Stenting of the distal esophagus. Partial visualization of esophageal mass. The lung bases are clear. IMPRESSION: 1. Diverticulosis without diverticulitis. 2. Postsurgical changes and other incidental findings described above. Interpreted by: Víctor Umanzor MD Preliminary Report By: Víctor Umanzor MD Electronically signed By Víctor Umanzor MD Dictated Date: 10/17/2024 7:04:42 PM Prelim Date: 10/17/2024 7:16:13 PM Sign Date: 10/17/2024 7:16:13 PM Ordering Provider: SALMA Ghosh [facility] CT THORAX W/ CONTRASTon 03-3 CT THORAX W/ CONTRAST ORIGINAL EXAMINATION: CT CHEST WITH CONTRAST 10/17/2024 6:56 pm TECHNIQUE Multiple-row detector helical CT examination of the thorax with IV contrast. Axial, sagittal, and coronal reconstructed images. This exam was performed according to our departmental dose optimization program, and includes the following measures where applicable: automated exposure control, adjustment of the mAs and/or kVp according to patient size and/or exam, and an iterative reconstruction algorithm. HISTORY: ORDERING SYSTEM PROVIDED HISTORY: Reason for Exam: EGD with stent this AM, chest and neck pain, cannot swallow, vomiting, hx esophageal cancer COMPARISON None FINDINGS: LOWER NECK: No enlarged supraclavicular lymph nodes are present. No actionable thyroid nodule is identified. PULMONARY PARENCHYMA AND AIRWAYS: The trachea and mainstem bronchi are patent. Scattered areas of pulmonary and pleural scarring/atelectasis are present. Scattered nodular opacities in the superior segment of the bilateral lower lobes are noted. No pneumothorax, focal area of consolidation, or suspicious pulmonary nodules identified. Posterior right lower lobe calcified granuloma is present. PLEURAL SPACE: No pleural fluid or thickening is present. HEART PERICARDIUM: The cardiac chambers are normal in size. Coronary artery atherosclerosis. No pericardial fluid or thickening is present. MEDIASTINUM SEBASTIEN: No mediastinal mass is present. No enlarged lymph nodes are present. Calcified mediastinal and right hilar lymph nodes are present. Esophageal stent is present traversing the mid and distal esophagus terminating in the gastric fundus. The esophagus proximal to the stent is fluid-filled and minimally dilated. No evidence of esophageal perforation. THORACIC VESSELS: No vascular abnormality is present. OSSEOUS STRUCTURES AND CHEST WALL: No acute osseous or soft tissue abnormality. 8 mm fluid density lesion in the anterior chest wall likely represents a sebaceous cyst. 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 Multilevel degenerative changes of the visualized spine. UPPER ABDOMEN: CT abdomen pelvis is performed on the same day and reported separately. ADDITIONAL: None. IMPRESSION: Findings consistent with infection or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 not enter airway Thin Liquid via teaspoon Trial 2: Result: 1= does not enter airway Thin Liquid via large single sip: cup: Result: 1= does not enter airway [place] Thick Liquid via large single sip: cup: Result: 1= does not enter airway Pudding via teaspoon: Result: 1= does not enter airway Comment: Esophageal screen - Retention in the lower esophagus w/ retrograde flow to the middle esophagus. Thin Liquid via single sip: straw: Result: 1= does not enter airway Comment: Esophageal screen - Barium from previous trial mostly cleared w/ liquid wash. 1/2 Cookie: Result: 1= does not enter airway Comment: Esophageal screen - Retention in the middle and lower esophagus. Thin Liquid via sequential sips:straw: Result: 1= does not enter airway Comment: Esophageal screen - Retention of barium liquid in the lower esophagus w/ retrograde flow to the middle esophagus. Liquid wash mostly cleared cookie w/ barium pudding coating from previous trial. Oral Phase Labial Seal: No Labial Escape Tongue Control During Bolus Hold: Posterior escape of greater than half of bolus (large sips) Bolus Preparation/Mastication: Timely and efficient chewing and mashing Bolus Transport/Lingual Motion: Delayed initiation of tongue motion Oral Residue: Residue collection on oral structures Pharyngeal Phase Initiation of Pharyngeal Swallow: Bolus head at posterior laryngeal surgace of epiglottis Soft Palate Elevation: Trace column of contrast/air between soft palate and pharyngeal wall Laryngeal Elevation: Comp. Superior move thyroid cart w/comp. apprx arytenoid cart-epig pet Anterior Hyoid Excursion: Partial anterior movement Epiglottic Movement: Complete inversion Laryngeal Vestibule Closure at Height of Swallow: Complete; no air/contrast in laryngeal vestibule Pharyngeal Stripping Wave: Present - diminished Pharyngoesophageal Segment Opening: Parital distension and partial duration; parital obstruction of flow Tongue Base Retraction: Narrow column of contrast between tongue (more content not included)... Normal [facility] Absolute neutrophil countOrd ered By: Josef Garcia on 06-30-2024 Neutrophils (Bld) [#/Vol] 4.9 10*3/uL 2.0-7.7 [facility] Albumin to globulin ratioOrd ered By: Josef Garcia on 06-30-2024 Albumin/Globulin [Mass ratio] 1.1 {ratio} 0.9-2.4 [facility] Basophil percentageOrdered B y: Josef Garcia on 06-30-2024 Basophils/100 WBC (Bld) 0.1 % 0-1 [facility] Bilirubin, totalOrdered By: Josef Garcia on 06-30-2024 Bilirubin [Mass/Vol] 0.80 mg/dL 0.20-1.00 [facility] Comment on above: For patients on eltr ombopag therapy, use of Dimension [place] TBIL is not recommended. Blood urea nitrogen (BUN)/cr eatinine ratioOrdered By: Josef Garcia on 06-30-2024 Urea nitrogen/Creatinine [Mass ratio] 11.5 mg/mg 10-20 [facility] CBC W/Diff, Automatedon 06-19 Absolute Lymph 2.11 X10 3/uL Normal 0.83-4.51 [facility] Comment on above: Performed By: #### L 500.4050, L100.0100, L501.9520 #### [facility] [address] [place], [address] Absolute Neut 4.9 X10 3/uL Normal 2.0-7.7 [facility] Comment on above: Performed By: #### L 500.4050, L100.0100, L501.9520 #### [facility] [address] [place], [address] Basophils/100 WBC (Bld) 0.1 % Normal 0-1 [facility] Comment on above: Performed By: #### L 500.4050, L100.0100, L501.9520 #### [facility] [address] [place], [address] Eosinophils/100 WBC (Bld) 1.1 % Normal 0-5 [facility] Comment on above: Performed By: #### L 500.4050, L100.0100, L501.9520 #### [facility] [address] [place], [address] Erythrocyte distribution width (RBC) [Ratio] 13.2 % Normal 11.6-14.6 [facility] Comment on above: Performed By: #### L 500.4050, L100.0100, L501.9520 #### [facility] [address] [place], [address] Hematocrit (Bld) [Volume fraction] 45.1 % Normal 40-54 [facility] Comment on above: Performed By: #### L 500.4050, L100.0100, L501.9520 #### [facility] [address] [place], [address] Hemoglobin (Bld) [Mass/Vol] 15.0 g/dL Normal 13.0-16.5 [facility] Comment on above: Performed By: #### L 500.4050, L100.0100, L501.9520 #### [facility] [address] [place], [address] IG% 0.400 Normal 0.0-0.9 [facility] Comment on above: Result Comment: IG% - Immature Granulocytes (promyelocytes, myelocytes and metamyelocytes) > 1% indicates that a LEFT SHIFT is Present. Performed By: #### L 500.4050, L100.0100, L501.9520 #### [facility] [address] [place], [address] Lymphocytes/100 WBC (Bld) 26.6 % Normal 19-41 [facility] Comment on above: Performed By: #### L 500.4050, L100.0100, L501.9520 #### [facility] [address] [place], [address] MCH (RBC) [Entitic mass] 30.8 pg Normal 27.0-32.0 [facility] Comment on above: Performed By: #### L 500.4050, L100.0100, L501.9520 #### [facility] [address] [place], [address] MCHC (RBC) [Mass/Vol] 33.3 g/dL Normal 32-36 [facility] Comment on above: Performed By: #### L 500.4050, L100.0100, L501.9520 #### [facility] [address] [place], [address] MCV (RBC) [Entitic vol] 92.6 fL Normal 80-94 [facility] Comment on above: Performed By: #### L 500.4050, L100.0100, L501.9520 #### [facility] [address] [place], [address] Monocytes/100 WBC (Bld) 10.5 % High 0-10 [facility] Comment on above: Performed By: #### L 500.4050, L100.0100, L501.9520 #### [facility] [address] [place], [address] Neutrophils/100 WBC (Bld) 61.3 % Normal 47-70 [facility] Comment on above: Performed By: #### L 500.4050, L100.0100, L501.9520 #### [facility] [address] [place], [address] Nucleated RBC (Bld) [#/Vol] 0 10*3/uL Normal 0-5 [facility] Comment on above: Performed By: #### L 500.4050, L100.0100, L501.9520 #### [facility] [address] [place], [address] Platelet mean volume (Bld) [Entitic vol] 9.3 fL Normal 6.2-12.0 [facility] Comment on above: Performed By: #### L 500.4050, L100.0100, L501.9520 #### [facility] [address] [place], [address] Platelets (Bld) [#/Vol] 217 10*3/uL Normal 150-450 [facility] Comment on above: Performed By: #### L 500.4050, L100.0100, L501.9520 #### [facility] [address] [place], [address] RBC (Bld) [#/Vol] 4.87 10*6/uL Normal 4.6-6.2 [facility] Comment on above: Performed By: #### L 500.4050, L100.0100, L501.9520 #### [facility] [address] [place], [address] RDW SD 44.4 fl High 35.1-43.9 [facility] Comment on above: Performed By: #### L 500.4050, L100.0100, L501.9520 #### [facility] [address] [place], [address] WBC (Bld) [#/Vol] 7.9 10*3/uL Normal 4.4-11.0 [facility] Comment on above: Performed By: #### L 500.4050, L100.0100, L501.9520 #### [facility] [address] [place], [address] Carbon dioxide measurementOr dered By: Josef Garcia on 06-30-2024 CO2 [Moles/Vol] 28.0 mmol/L 21.0-32.0 [facility] Chloride measurementOrdered By: Josef Garcia on 06-30-2024 Chloride [Moles/Vol] 107 mmol/L 98-107 [facility] Comprehensive Metabolic Prof ilon 06-30-2024 Albumin [Mass/Vol] 3.9 g/dL Normal 3.2-5.0 [facility] Comment on above: Performed By: #### L 500.4050, L100.0100, L501.9520 #### [facility] [address] [place], [address] Albumin/Globulin [Mass ratio] 1.1 {ratio} Normal 0.9-2.4 [facility] Comment on above: Performed By: #### L 500.4050, L100.0100, L501.9520 #### [facility] [address] [place], [address] ALK P 140 U/L High 45-117 [facility] Comment on above: Performed By: #### L 500.4050, L100.0100, L501.9520 #### [facility] [address] [place], [address] ALT [Catalytic activity/Vol] 27 U/L Normal 16-61 [facility] Comment on above: Performed By: #### L 500.4050, L100.0100, L501.9520 #### [facility] [address] [place], [address] AST [Catalytic activity/Vol] 14 U/L Low 15-37 [facility] Comment on above: Performed By: #### L 500.4050, L100.0100, L501.9520 #### [facility] [address] [place], [address] Bilirubin [Mass/Vol] 0.80 mg/dL Normal 0.20-1.00 [facility] [facility] Comment on above: Result Comment: For patients on eltrombopag therapy, use of Dimension [place] TBIL is not recommended. Performed By: #### L 500.4050, L100.0100, L501.9520 #### [facility] [address] [place], [address] BUN/CRE 11.5 RATIO Normal 10-20 [facility] Comment on above: Performed By: #### L 500.4050, L100.0100, L501.9520 #### [facility] [address] [place], [address] CA,Total 9.6 mg/dL Normal 8.5-10.1 [facility] Comment on above: Performed By: #### L 500.4050, L100.0100, L501.9520 #### [facility] [address] [place], [address] Chloride [Moles/Vol] 107 mmol/L Normal 98-107 [facility] Comment on above: Performed By: #### L 500.4050, L100.0100, L501.9520 #### [facility] [address] [place], [address] CO2 [Moles/Vol] 28.0 mmol/L Normal 21.0-32.0 [facility] Comment on above: Performed By: #### L 500.4050, L100.0100, L501.9520 #### [facility] [address] [place], [address] Creatinine [Mass/Vol] 1.04 mg/dL Normal 0.70-1.30 [facility] Comment on above: Result Comment: The validity of the calculated GFR GFRAA in patients over 70 years has not been determined. Clinical correlation is essential. Performed By: #### L 500.4050, L100.0100, L501.9520 #### [facility] [address] [place], [address] EST GFR - AA 93 mL/min Normal >60 [facility] Comment on above: Result Comment: Afri can [facility] GFR Calc Performed By: #### L 500.4050, L100.0100, L501.9520 #### [facility] [address] [place], [address] GAP 4 Low 5-15 [facility] Comment on above: Performed By: #### L 500.4050, L100.0100, L501.9520 #### [facility] [address] [place], [address] GFR/1.73 sq M.predicted among non-blacks MDRD (S/P/Bld) [Vol rate/Area] 76 mL/min/{1.73_m2} Normal >60 [facility] Comment on above: Result Comment: Non- GFR Calc Performed By: #### L 500.4050, L100.0100, L501.9520 #### [facility] [address] [place], [address] Globulin (S) [Mass/Vol] 3.5 g/dL Normal 2.2-4.2 [facility] Comment on above: Performed By: #### L 500.4050, L100.0100, L501.9520 #### [facility] [address] [place], [address] Glucose [Mass/Vol] 102 mg/dL Normal 74-106 [facility] Comment on above: Result Comment: Fast ing Glucose result from 100 to 125 mg/dL suggests IMPAIRED HOMEOSTASIS per A.D.A. criteria. Performed By: #### L 500.4050, L100.0100, L501.9520 #### [facility] [address] [place], [address] Potassium [Moles/Vol] 4.1 mmol/L Normal 3.5-5.1 [facility] Comment on above: Performed By: #### L 500.4050, L100.0100, L501.9520 #### [facility] [address] [place], [address] Sodium [Moles/Vol] 139 mmol/L Normal 136-145 [facility] Comment on above: Performed By: #### L 500.4050, L100.0100, L501.9520 #### [facility] [address] [place], [address] T PROT 7.4 g/dL Normal 6.4-8.2 [facility] Comment on above: Performed By: #### L 500.4050, L100.0100, L501.9520 #### [facility] [address] [place], [address] Urea nitrogen [Mass/Vol] 12 mg/dL Normal 7-18 [facility] Comment on above: Performed By: #### L 500.4050, L100.0100, L501.9520 #### [facility] [address] [place], [address] Eosinophil percentageOrdered By: Josef Garcia on 06-30-2024 Eosinophils/100 WBC (Bld) 1.1 % 0-5 [facility] Erythrocyte distribution wid th ratioOrdered By: Josef Garcia on 06-30-2024 Erythrocyte distribution width (RBC) [Ratio] 13.2 % 11.6-14.6 [facility] Erythrocyte distribution wid th standard deviationOrdered By: Josef Garcia on 06-30-2024 Erythrocyte distribution width (RBC) [Entitic vol] 44.4 fL High 35.1-43.9 [facility] Estimated glomerular filtrat ion rate (GFR) AmericanOrdered By: Josef Garcia on 06-30-2024 Estimated GFR (MDRD) Amer 93 mL/min >60 [facility] Comment on above: GFR Calc Glomerular filtration rate ( GFR) estimationOrdered By: Josef Garcia 06-30-2024 Estimated GFR (MDRD) Non-Af Amer 76 mL/min >60 [facility] Comment on above: Non- GFR Calc Glucose measurementOrdered B y: Josef Garcia on 06-30-2024 Glucose [Mass/Vol] 102 mg/dL 74-106 [facility] Comment on above: Fasting Glucose resu lt from 100 to 125 mg/dL suggests IMPAIRED HOMEOSTASIS per A.D.A. criteria. Hematocrit Auto (Bld) [Volum e fraction]Ordered By: Josef Garcia 06-30-2024 Hematocrit (Bld) [Volume fraction] 45.1 % 40-54 [facility] Hemoglobin measurementOrdere d By: Josef Garcia 06-30-2024 Hemoglobin (Bld) [Mass/Vol] 15.0 g/dL 13.0-16.5 [facility] Immature granulocytes/100 WB C Auto (Bld)Ordered By: Josef Garcia 06-30-2024 Immature granulocytes/100 WBC (Bld) 0.400 % 0.0-0.9 [facility] Comment on above: IG% - Immature Granu locytes (promyelocytes, myelocytes and metamyelocytes) > 1% indicates that a LEFT SHIFT is Present. Laboratory - Chemistry and C hemistry - challengeOrdered By: Josef Garcia 06-30-2024 AST [Catalytic activity/Vol] 14 U/L Low 15-37 [facility] Lymphocytes Auto (Unsp spec) [#/Vol]Ordered By: Josef Garcia 06-30-2024 Lymphocytes (Bld) [#/Vol] 2.11 10*3/uL 0.83-4.51 [facility] Lymphocytes/100 WBC Auto (Un sp spec)Ordered By: Josef Garcia 06-30-2024 Lymphocytes/100 WBC (Bld) 26.6 % 19-41 [facility] MCV (mean corpuscular volume ) determinationOrdered By: Josef Garcia on 06-30-2024 MCV (RBC) [Entitic vol] 92.6 fL 80-94 [facility] Mean corpuscular hemoglobin (MCH) determinationOrdered By: Josef Garcia on 06-30-2024 MCH (RBC) [Entitic mass] 30.8 pg 27.0-32.0 [facility] Mean corpuscular hemoglobin concentration (MCHC) determinationOrdered By: Josef Garcia on 06-30-2024 MCHC (RBC) [Mass/Vol] 33.3 g/dL 32-36 [facility] Mean platelet volume determi nationOrdered By: Josef Garcia on 06-30-2024 Platelet mean volume (Bld) [Entitic vol] 9.3 fL 6.2-12.0 [facility] Monocyte percentageOrdered B y: Josef Garcia on 06-30-2024 Monocytes/100 WBC (Bld) 10.5 % High 0-10 [facility] Neutrophil percentageOrdered By: Josef Yeok on 06-30-2024 Neutrophils/100 WBC (Bld) 61.3 % 47-70 [facility] Nucleated red blood cell per centageOrdered By: Josef Yeok on 06-30-2024 Nucleated RBC/100 WBC (Bld) [Ratio] 0 % 0-5 [facility] Platelet countOrdered By: Brian Garcia on 06-30-2024 Platelets (Bld) [#/Vol] 217 10*3/uL 150-450 [facility] Potassium measurementOrdered By: Josef Garcia on 06-30-2024 Potassium [Moles/Vol] 4.1 mmol/L 3.5-5.1 [facility] RBC Auto (Bld) [#/Vol]Ordere d By: Josef Garcia on 06-30-2024 RBC (Bld) [#/Vol] 4.87 10*6/uL 4.6-6.2 [facility] Serum anion gap measurementO rdered By: Josef Garcia on 06-30-2024 Anion gap [Moles/Vol] 4 mmol/L Low 5-15 [facility] Serum globulin measurementOr dered By: Josef Garcia on 06-30-2024 Globulin (S) [Mass/Vol] 3.5 g/dL 2.2-4.2 [facility] Serum or plasma alanine menchaca otransferase (ALT) measurementOrdered By: Josef Garcia on 06-30-2024 ALT [Catalytic activity/Vol] 27 U/L 16-61 [facility] Serum or plasma albumin devin urement (mass/volume)Ordered By: Josef Garcia 06-30-2024 Albumin [Mass/Vol] 3.9 g/dL 3.2-5.0 [facility] Serum or plasma alkaline brice sphatase measurementOrdered By: Josef Garcia 06-30-2024 ALP [Catalytic activity/Vol] 140 U/L High 45-117 [facility] Serum or plasma calcium devin urement (mass/volume)Ordered By: Josef Garcia 06-30-2024 Calcium [Mass/Vol] 9.6 mg/dL 8.5-10.1 [facility] Serum or plasma creatinine m easurement (mass/volume)Ordered By: Josef Garcia 06-30-2024 Creatinine [Mass/Vol] 1.04 mg/dL 0.70-1.30 [facility] Comment on above: The validity of the calculated GFR & GFRAA in patients over 70 years has not been determined. Clinical correlation is essential. Serum or plasma urea nitroge n measurement (mass/volume)Ordered By: Josef Garcia on 06-30-2024 Urea nitrogen [Mass/Vol] 12 mg/dL 7-18 [facility] Sodium levelOrdered By: Josef Garcia 06-30-2024 Sodium [Moles/Vol] 139 mmol/L 136-145 [facility] TSH QnOrdered By: Josef Garcia o n 06-30-2024 Thyroid Stimulating Hormone (TSH) 2.400 uIU/mL 0.358-3.74 0 [facility] Thyroid Stim Hormone (TSH)on 06-30-2024 TSH 2.400 uIU/mL Normal 0.358-3.74 0 [facility] Comment on above: Performed By: #### L 500.4050, L100.0100, L501.9520 #### [facility] [place], [address] Total proteinOrdered By: Josef Garcia on 06-30-2024 Protein [Mass/Vol] 7.4 g/dL 6.4-8.2 [facility] White blood cell (WBC) count Ordered By: Josef Garcia on 06-30-2024 WBC (Bld) [#/Vol] 7.9 10*3/uL 4.4-11.0 [facility] Carotid Duplex Ultrasoundon 06-24-2024 Carotid Duplex Ultrasound [facility] [address] [place] [address] Carotid Duplex Ultrasound 06/24/24 0920 MR#: [id number] Acct: [id number] Name: BILL ESTRADA Rep #: [id number] : 1960 63 From: Angel Fritz MD Attending Dr: Dr. Lorraine Rubio MD Status: REG CLI Ordering Dr: Lorraine Rubio MD Date: 06/24/24 Location: [facility] Sex: M C Admitted: Reason For Study: Vertigo Rt. Velocities/BP Lt. Velocities/BP Prox CCA 114.3/32.1 cm/sec. Prox CCA 118.0/34.0 cm/sec. Mid CCA 86.4/27.0 cm/sec. Mid CCA 107.0/30.3 cm/sec. Dist CCA 89.7/30.3 cm/sec. Dist CCA 99.7/26.7 cm/sec. Prox ICA 61.0/24.2 cm/sec. Prox ICA 99.7/32.8 cm/sec. Mid ICA 78.7/25.9 cm/sec. Mid ICA 90.1/24.8 cm/sec. Dist ICA 69.9/30.3 cm/sec. Dist ICA 62.9/24.2 cm/sec. Rt. ICA/CCA = 0.9. Lt. ICA/CCA = 0.9. Prox ECA 119.8/19.4 cm/sec. Prox ECA 130.8/23.0 cm/sec. Rt. Vert. 46.8/16.2 cm/sec. Lt. Vert. 36.7 cm/sec. Right Extracranial There is intimal thickening but no significant atherosclerotic plaque noted in the right common carotid artery. There is heterogeneous, irregular atherosclerotic plaque noted in the right internal carotid artery. There is heterogeneous, irregular atherosclerotic plaque noted in the right external carotid artery. Antegrade flow is noted in the right vertebral artery. Left Extracranial There is homogeneous, smooth atherosclerotic plaque noted in the left common carotid artery. There is heterogeneous, irregular atherosclerotic plaque noted in the left internal carotid artery. There is heterogeneous, irregular atherosclerotic plaque noted in the left external carotid artery. Antegrade flow is noted in the left vertebral artery. Procedure Carotid Duplex 47825. This is a Carotid Duplex examination using B-mode, color flow and specral Doppler. The exam was diagnostic. Exam performed in department. VL/Carotid Duplex Ultrasound Interpretation Summary Mild (<50%) stenosis right extracranial internal carotid. Mild (<50%) stenosis left extracranial internal carotid. Patent and antegrade vertebrals bilaterally. Ordering Physician: Lorraine Rubio Referring Physician: Josef Garcia Chi Performed By: Jarrell Richard, [facility] 06/27/241216 Date Angel Fritz MD CC: Dr. Lorraine Rubio MD; Dr. 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 Josef Garcia MD Status: REG RCR Insurance: [facility] [id number] SELF PAY INSURANCE Patient's Visit Information Visit Information Visit Information: BILL ESTRADA is a 63 year old M referred to Physical Therapy by Dr. Josef Garcia MD with a diagnosis of Dizziness. Date of Evaluation: 06/14/24 Physical Therapist: BRISEIDA Herbert Visit Plan Plan: Pt will see the ENT and follow through with his CATSCAN and will call if his positional dizziness returns. Subjective Subjective: Pt had vertigo a year or so ago and it lasted about a week and it was gone. This episode started about 4 weeks ago. He had his pacemaker and leads changed and he was dizzy and getting up or down in bed 3-4 days after getting them changed. He would lay in bed and move his head and he would get dizzy. But he felt off constantly for about a week. He called his family Dr and he gave him 2 shots, pills and referred here and an ear Dr. He ordered a CATSCAN of his brain but that has not been completed either. Currently sx... feels a little dizzy sitting here. He had trouble laying down and getting back up and that is the room spinning dizziness. Pt did not have the dizziness getting into bed and out of bed this morning but his normal dizziness remains. Objective Objective: -L Hallpike except for some slight dizziness. -R Hallpike for dizziness -Roll test B Questionable + Hallpike on the L for feeling like it could start room spinning and went ahead and treated with L Eply. Re-tested L Hallpike and pt felt the same with no nystagmus and no room spinning dizziness. Pt had some normal dizziness when he was walking out but that is normal for him Balance/Special Test Scores Dizziness Score: 70 Anticipated Interventions Patient/Client Instruction: Educate patient on: Plan of Care For the Purpose of:: To improve gait and locomotor functions, To increase flexibility/ROM, To improve endurance, To improve balance and To improve safety with gait Therapeutic Exercise to Include: Strength training, Balance training and Gait and locomotor training For the Purpose of:: To increase tolerance to activity/condition/position , To improve performance and independence with ADL's, To improve gait and locomotor functions, To improve balance and To improve safety with gait Functional Training to Include: Gait training For the Purpose of:: To improve safety with gait and To improve health and function Manual Therapy Techniques to Include: Other Comment: Eply For the Purpose of:: To increase tolerance to activity/condition/position and To improve gait and locomotor functions Text: Thank you for the opportunity to evaluate your patient. For Medicare and Medicare HMO plans, please review the plan of care and approve it. It will need to be FAXED BACK to us at [phone] for Medicare purposes. For Medicare only, by signing this I certify the plan of care. Please let me know if there are questions or concerns regarding this plan of care. Physician Signature: Date: 06/14/24 0931 CC: Dr. Josef Garcia MD Signed Normal [facility] Cardiology Visit Reporton Cardiology Visit Report [facility] [address] [place] [address] OFFICE VISIT Date of Service: 06/06/24 MR#: [id number] Acct: [id number] Name: BILL ESTRADA Rep #: [id number] : 1960 Provider: Dr. Lorraine Rubio MD Age/Sex: 63/M [place] [facility] [place] Signed HPI HPI History of Present Illness Details: This gentleman with history of sick sinus syndrome status post permanent pacemaker placement is here for follow-up visit. Recently he was diagnosed with RV lead malfunction. Subsequently he has had lead extraction and replacement done at [facility]. His generator was also changed. Denies any chest pains. Chronic shortness of breath with exertion which remains unchanged. Unfortunately he continues to smoke. Patient has recently been having some vertigo. He has been seeing ENT for that. Intake Vital Signs 01/29/24 11:11 06/06/24 08:12 Height 5 ft 2 in 5 ft 2 in Weight: 210 lb BMI 38.4 BP 113/66 Blood Pressure Location Lt brachial Position Sitting Respiration 16 Pulse 73 Pulse Source NIBP Intake Visit Reasons: 1 Y FU Grease Monkey Required: No Accompanied by: Self Is patient in pain?: No Allergies morphine Adverse Reaction (Verified 06/06/24 08:57) MAKES ME MAD Medications ???Medication ???Instructions ???Recorded ???Confirmed ???Type omeprazole 20 mg capsule,delayed 20 mg PO DAILY 11/25/13 06/06/24 History release albuterol sulfate 90 mcg/actuation 2 puff inhalation Q4H PRN 06/26/22 06/06/24 History aerosol inhaler shortness of breath or wheezing gabapentin 400 mg capsule 400 mg PO BID 06/26/22 06/06/24 History umeclidinium 62.5 mcg-vilanterol 1 ea inhalation DAILY 01/29/24 06/06/24 History 25 mcg/actuation powdr for inhalation (Anoro Ellipta) Ejection fraction %: 65 Have you fallen in the past year?: No PFSH Medical History Acute right flank pain ( 03/26/22) Allergies Ambulates with cane Arthritis Back pain Back problem Blackout Bone fracture Cardiology follow-up encounter COPD (chronic obstructive pulmonary disease) CPAP (continuous positive airway pressure) dependence Dermatofibroma of chest Easy bruising Elective replacement indicated for pacemaker Gastric reflux GERD (gastroesophageal reflux disease) History of diverticulitis History of echocardiogram History of edema History of pacemaker History of pain when walking History of stress test Injury of head and neck Kidney stones Leg cramps Lumbar spondylosis Other acute postprocedural pain Pacemaker lead malfunction Presence of cardiac pacemaker Renal stones Restless leg syndrome Restless legs Shortness of breath on exertion Sick sinus syndrome Sinus arrest Sinus bradycardia Smoker Smoker Syncope Syncope and collapse Wears dentures Wears glasses Surgical History H/O cervical spine surgery H/O inguinal hernia repair History of esophagogastroduodenoscopy (EGD) History of heart surgery Hx of cholecystectomy Hx of colonoscopy Family History Mother Colon cancer Sister Breast cancer Sister Breast cancer Other CVA (cerebral vascular accident) Social History household members: spouse, children and other details: grandchildren housing: house current occupational status: unemployed pets and animals: No Smoking Status: Current every day smoker tobacco type: cigarettes alcohol intake: current alcohol intake frequency: holidays/special occasions only substance use type: does not use caffeine: Yes Type: carbonated beverages Number of servings: 3 and coffee Number of servings: 1 what type of physical activity do you participate in: none seatbelt use: never do you feel safe at home: Yes additional social history: Does Take Ibuprofen As Needed Does Not Take Aspirin ROS Const Const: Negative for fatigue, weakness, headache(s) or weight gain ENT ENT: Positive for balance problems (vertigo); Negative for headache(s), dizziness or Nosebleed/epistaxis Cardio Chest Pain: No Palpitations: No Edema: None Muscle aches with walking: None Resp Respiratory: Positive for SOB with activity and SOB at rest; Negative for SOB orthopnea SOB lying down GI GI: Negative nausea, vomiting or heartburn Musc Musc: Positive for joint pain (bilateral knees) and balance problems (vertigo); Negative for muscle aches/ myalgia or muscle weakness Neuro Neuro: Negative for dizziness, lightheadedness, near syncope, syncope, headache(s) or weakness Endo Endo: Negative for fatigue Cardiology Exam Const Appearance: comfortable and no ac (more content not included)... Normal [facility] Spine Lumbar without Contras ton 06-02-2024 Spine Lumbar without Contrast [facility] Imaging Services [address] [place] [address] Spine Lumbar without Contrast MR#: [id number] Acct: [id number] Name: BILL ESTRADA Rep #: [id number] : 1960 M 63 From: Ag Mcmullen PCP: Dr. Josef Garcia MD Status: REG CLI Study: Spine Lumbar without Contrast Date of Exam: Exam# [id number] Ordering Dr: Rosalie Armendariz MD [id number] INDICATION: Radiculopathy, lumbar region EXAMINATION: CT LUMBAR SPINE - CT Spine Lumbar W/O Contrast Injection TECHNIQUE: Helically acquired images were obtained of the lumbar spine. 2D reformats were reviewed. A radiation dose optimization technique was used for this scan. The protocol utilizes one or more of the following dose reduction techniques: automated exposure control, adjustment of mA and/or kV according to patient size,and/or use of iterative reconstruction technique. IV Contrast dosage and agent: None. RADIATION DOSAGE (If Supplied By Facility): CTDIvol = ( 27.28 ) mGy, DLP = ( 710.7 ) mGycm COMPARISON: CT Lumbar SpineOct 23 2020 3:04pm FINDINGS: VERTEBRAE: No fracture or traumatic subluxation. No discrete lytic or blastic abnormality observed. Mild left convex curvature of the lower lumbar spine. Preservation of lumbar lordosis. Mild multilevel facet arthropathy. DISCS and SPINAL CANAL: Severe multilevel disc space narrowing and osteophytosis, most notable at T12-L1, L2-L3, L3-L4, L4-L5 and L5-S1. Multilevel moderate spinal canal and moderate to severe neural foramina narrowing more prominent at L3-4, L4-5. There has been no significant since the previous study from 10/23/2020. VISUALIZED ABDOMEN: Visualized abdominal aorta is not dilated. Atherosclerotic calcifications of the abdominal aorta. 3 mm nonobstructing stone in the left kidney. CT/Spine Lumbar without Contrast IMPRESSION: Multilevel moderate spinal canal and moderate to severe neural foramina narrowing more prominent at L3-4, L4-5. Electronically Signed: Ag Banegas MD at 1:46 EST , CC: Dr. Rosalie Armendariz MD; Dr. 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 Implant Date 03/29/2024 [facility] PACEMAKER CLIN[facility] CHECKon AMS Fallback Rate (bpm) 80 {beats}/min [facility] AV Delay Adaptive Paced Minimum (ms) 250 ms [facility] AV Delay Adaptive Rate Maximum (bpm) 130 {beats}/min [facility] AV Delay Adaptive Rate Minimum (bpm) 90 {beats}/min [facility] AV Delay Adaptive Sensed Minimum (ms) 225 ms [facility] AV Delay Adaptive Status Medium [facility] AV Delay Paced (ms) 100 ms [facility] AV Delay Sensed (ms) 100 ms [facility] Battery Voltage (volts) 3.02 V [facility] John RA Pacing Amplitude (volts) 3.25 V [facility] John RA Pacing Polarity BI [facility] John RA Pacing Pulse Width (ms) 0.5 ms [facility] John RA Sensing Blanking Period (ms) 150 ms [facility] John RA Sensing Polarity BI [facility] John RA Sensing Refractory Period (ms) 190 ms [facility] John RV Pacing Amplitude (volts) 3.25 V [facility] [facility] Pacing Polarity BI [facility] John RV Pacing Pulse Width (ms) 0.5 ms [facility] John RV Sensing Amplitude (mvolts) 2.0 mV [facility] John RV Sensing Blanking Period (ms) 44 ms [facility] John RV Sensing Polarity BI [facility] John RV Sensing Refractory Period (ms) 250 ms [facility] Hysteresis Rate (bpm) Off [facility] Implant Date 07/15/2013 [facility] Lead1 [facility] Lead2 [facility] Location RV [facility] Location RA [facility] Lower Rate (bpm) 60 {beats}/min [facility] Max Sensor Rate (bmp) 130 {beats}/min [facility] Model 2272 Assurity MRI [facility] Model 2087TC/52 [facility] Model 2087TC Tendril STS Optim IS [facility] Pacemaker Dependent? NO [facility] Pacing Mode DDD [facility] PM-Device Mfg STJ [facility] PM-Percent Pacing (A) 16.0 % [facility] PM-Percent Pacing (V) 0.04 % [facility] PM-PMT Intervention Atrial Pace [facility] PM-PVC Intervention Atrial Pace [facility] PM-Rate Modulation Acceleration Reaction Fast [facility] PM-Rate Modulation Deceleration Medium [facility] PM-Rate Modulation O'Brien Auto (+2) [facility] PM-Rate Modulation Threshold Auto (+0.0) [facility] Rhythm NSR @ 75 bpm [facility] Serial Number [id number] [facility] Serial Number [id number] [facility] Serial Number [id number] [facility] Thresh RA Capture Amplitude (volts) 0.5 V [facility] Thresh RA Capture Duration (ms) 0.5 ms [facility] Thresh RA Sensing Amplitude (mvolts) 1.2 mV [facility] Thresh RV Capture Amplitude (volts) 0.5 V [facility] Thresh RV Capture Duration (ms) 0.5 ms [facility] Thresh RV Sensing Amplitude (mvolts) 4.8 mV [facility] Tracking Rate (bpm) 130 {beats}/min [facility] PPM check, dual lead system with programming. Patient ID x 2. PM check 1st day post op (old rv lead extracted, new rv lead and generator changed 03/29/24). Aquacel dressing intact to left upper chest with scant amount of old drainage noted to center of dressing. No hematoma noted. Presenting rhythm /VS @ 75 bpm. No VT/VF events. No mode switch events. Measurements stable. EGM's without noise. No changes made. Post op teaching completed, patient to follow at [facility]. Francisca Cox RN NOTE TO PROVIDERS: CARD Flowsheets contain detailed device programming and testing data. Paceart/Interrogation PDF can be found under CARDIAC DATA AND REPORT, Scanned Documents section. PACEART 03/30/2024 Formattin g of this note might be different from the original. PPM check, dual lead system with programming. Patient ID x 2. PM check 1st day post op (old rv lead extracted, new rv lead and generator changed 03/29/24). Aquacel dressing intact to left upper chest with scant amount of old drainage noted to center of dressing. No hematoma noted. Presenting rhythm /VS @ 75 bpm. No VT/VF events. No mode switch events. Measurements stable. EGM's without noise. No changes made. Post op teaching completed, patient to follow at [facility]. Francisca Cox RN NOTE TO PROVIDERS: CARD Flowsheets contain detailed device programming and testing data. Paceart/Interrogation PDF can be found under CARDIAC DATA AND REPORT, Scanned Documents section. [facility] ECG B/O W INTERP (MED OFFICE )on 02-19-2024 Interpretation and review of laboratory results Abnormal [facility] Sinus rhythm 78 bpm; normal conduction intervals (NE 120 ms, QRS 100 ms); QTc 401 ms; inappropriate ventricular pacing output noted after cahto QRS, apparently due to ventricular undersensing (timing corresponds to pacemaker programmed sensed AV delay of 250 ms) [facility] Absolute lymphocyte countOrd ered By: Vinnie Garcia on 10-14-2023 Lymphocytes Auto (Unsp spec) [#/Vol] 1.72 10*3/uL 0.83-4.51 [facility] Automated lymphocyte count a s percentage of total leukocytesOrdered By: Vinnie Garcia on 10-14-2023 Lymphocytes/100 WBC Auto (Unsp spec) 26.5 % 19-41 [facility] Basophil percentageOrdered B y: Vinnie Garcia on 10-14-2023 Basophils/100 WBC (Bld) 0.3 % 0-1 [facility] Chloride [Moles/Vol] 106 mmol/L 98-107 [facility] Eosinophils/100 WBC (Bld) 0.6 % 0-5 [facility] Glucose [Mass/Vol] 112 mg/dL 74-106 [facility] Comment on above: Fasting Glucose resu lt from 100 to 125 mg/dL suggests IMPAIRED HOMEOSTASIS per A.D.A. criteria. Hemoglobin (Bld) [Mass/Vol] 15.1 g/dL 13.0-16.5 [facility] Monocytes/100 WBC (Bld) 10.5 % 0-10 [facility] Neutrophils (Bld) [#/Vol] 4.0 10*3/uL 2.0-7.7 [facility] Neutrophils/100 WBC (Bld) 61.8 % 47-70 [facility] Potassium [Moles/Vol] 4.4 mmol/L 3.5-5.1 [facility] Comment on above: Moderate Hemolysis, Result may be falsely increased. Sodium [Moles/Vol] 138 mmol/L 136-145 [facility] WBC (Bld) [#/Vol] 6.5 10*3/uL 4.4-11.0 [facility] Determination of erythrocyte mean corpuscular volume (MCV)Ordered By: Vinnie Garcia on 10-14-2023 MCV (RBC) [Entitic vol] 91.8 fL 80-94 [facility] Erythrocyte distribution wid th ratioOrdered By: Vinnie Garcia on 10-14-2023 Erythrocyte distribution width (RBC) [Ratio] 13.9 % 11.6-14.6 [facility] Erythrocyte distribution wid th standard deviationOrdered By: Vinnie Garcia on 10-14-2023 Erythrocyte distribution width (RBC) [Entitic vol] 47.1 fL 35.1-43.9 [facility] Hematocrit Auto (Bld) [Volum e fraction]Ordered By: Vinnie Garcia on 10-14-2023 Hematocrit (Bld) [Volume fraction] 45.8 % 40-54 [facility] Immature granulocytes/100 WB C Auto (Bld)Ordered By: Vinnie Garcia on 10-14-2023 Immature granulocytes/100 WBC (Bld) 0.300 % 0.0-0.9 [facility] Comment on above: IG% - Immature Granu locytes (promyelocytes, myelocytes and metamyelocytes) > 1% indicates that a LEFT SHIFT is Present. Laboratory - Chemistry and C hemistry - challengeOrdered By: Vinnie Garcia on 10-14-2023 CO2 [Moles/Vol] 28.0 mmol/L 21.0-32.0 [facility] Magnesium [Mass/Vol] 2.0 mg/dL 1.6-2.6 [facility] Comment on above: Moderate Hemolysis, Result may be falsely increased. Urea nitrogen/Creatinine [Mass ratio] 11.9 mg/mg 10-20 [facility] Laboratory - Hematology and Cell countsOrdered By: Vinnie Garcia on 10-14-2023 MCH (RBC) [Entitic mass] 30.3 pg 27.0-32.0 [facility] MCHC (RBC) [Mass/Vol] 33.0 g/dL 32-36 [facility] Nucleated RBC/100 WBC (Bld) [Ratio] 0 % 0-5 [facility] Platelet mean volume (Bld) [Entitic vol] 9.0 fL 6.2-12.0 [facility] Platelets (Bld) [#/Vol] 203 10*3/uL 150-450 [facility] No Panel InformationOrdered By: Vinnie Garcia on 10-14-2023 Estimated GFR (MDRD) Amer 88 mL/min >60 [facility] Comment on above: GFR Calc Estimated GFR (MDRD) Non-Af Amer 73 mL/min >60 [facility] Comment on above: Non- GFR Calc RBC Auto (Bld) [#/Vol]Ordere d By: Vinnie Garcia on 10-14-2023 RBC (Bld) [#/Vol] 4.99 10*6/uL 4.6-6.2 [facility] Serum or plasma calcium devin urement (mass/volume)Ordered By: Vinnie Garcia on 10-14-2023 Calcium [Mass/Vol] 9.6 mg/dL 8.5-10.1 [facility] Serum or plasma creatinine m easurement (mass/volume)Ordered By: Vinnie Garcia on 10-14-2023 Creatinine [Mass/Vol] 1.09 mg/dL 0.70-1.30 [facility] Comment on above: The validity of the calculated GFR & GFRAA in patients over 70 years has not been determined. Clinical correlation is essential. Serum or plasma thyroid stim ulating hormone (TSH) measurement (units/volume)Ordered By: Vinnie Garcia on 10-14-2023 TSH Qn 1.74 uIU/mL 0.358-3.74 [facility] Serum or plasma urea nitroge n measurement (mass/volume)Ordered By: Vinnie Garcia on 10-14-2023 Urea nitrogen [Mass/Vol] 13 mg/dL 7-18 [facility] Thin prep Papanicolaou smear with manual screeningOrdered By: Vinnie Garcia on 10-14-2023 Thin prep Papanicolaou smear with manual screening 4 5-15 [facility] Thin prep Papanicolaou smear with manual screening 1.03 ng/dL 0.76-1.46 [facility] Absolute lymphocyte countOrd ered By: Josef Garcia on 07-02-2023 Lymphocytes Auto (Unsp spec) [#/Vol] 1.84 10*3/uL 0.83-4.51 [facility] Basophil percentageOrdered B y: Josef Garcia on 07-02-2023 Basophils/100 WBC (Bld) 0.3 % 0-1 [facility] Bilirubin [Mass/Vol] 1.10 mg/dL 0.20-1.00 [facility] Comment on above: For patients on eltr ombopag therapy, use of Dimension [place] TBIL is not recommended. Chloride [Moles/Vol] 105 mmol/L 98-107 [facility] Eosinophils/100 WBC (Bld) 1.9 % 0-5 [facility] Glucose [Mass/Vol] 96 mg/dL 74-106 [facility] Neutrophils (Bld) [#/Vol] 4.1 10*3/uL 2.0-7.7 [facility] Neutrophils/100 WBC (Bld) 60.8 % 47-70 [facility] Potassium [Moles/Vol] 4.1 mmol/L 3.5-5.1 [facility] Protein [Mass/Vol] 7.8 g/dL 6.4-8.2 [facility] Sodium [Moles/Vol] 138 mmol/L 136-145 [facility] WBC (Bld) [#/Vol] 6.7 10*3/uL 4.4-11.0 [facility] Blood erythrocytes count (nu mber/volume)Ordered By: Josef Garcia on 07-02-2023 RBC (Bld) [#/Vol] 4.96 10*6/uL 4.6-6.2 [facility] Blood hemoglobin measurement (mass/volume)Ordered By: Josef Garcia on 07-02-2023 Hemoglobin (Bld) [Mass/Vol] 14.8 g/dL 13.0-16.5 [facility] Blood lymphocytes/100 leukoc ytesOrdered By: Josef Garcia on 07-02-2023 Lymphocytes/100 WBC (Bld) 27.4 % 19-41 [facility] Blood monocytes/100 leukocyt esOrdered By: Josef Garcia on 07-02-2023 Monocytes/100 WBC (Bld) 9.2 % 0-10 [facility] Blood platelet mean volumeOr dered By: Josef Garcia on 07-02-2023 Platelet mean volume (Bld) [Entitic vol] 9.5 fL 6.2-12.0 [facility] Determination of erythrocyte mean corpuscular volume (MCV)Ordered By: Josef Garcia on 07-02-2023 MCV (RBC) [Entitic vol] 93.3 fL 80-94 [facility] Hematocrit Auto (Bld) [Volum e fraction]Ordered By: Josef Garcia on 07-02-2023 Hematocrit (Bld) [Volume fraction] 46.3 % 40-54 [facility] Laboratory - Chemistry and C hemistry - challengeOrdered By: Josef Garcia on 07-02-2023 ALP [Catalytic activity/Vol] 119 U/L 45-117 [facility] ALT [Catalytic activity/Vol] 35 U/L 16-61 [facility] CO2 [Moles/Vol] 29.0 mmol/L 21.0-32.0 [facility] Globulin (S) [Mass/Vol] 4.1 g/dL 2.2-4.2 [facility] Urea nitrogen/Creatinine [Mass ratio] 14.9 mg/mg 10-20 [facility] Laboratory - Hematology and Cell countsOrdered By: Josef Jose on 07-02-2023 Erythrocyte distribution width (RBC) [Entitic vol] 45.2 fL 35.1-43.9 [facility] Erythrocyte distribution width (RBC) [Ratio] 13.3 % 11.6-14.6 [facility] Immature granulocytes/100 WBC (Bld) 0.400 % 0.0-0.9 [facility] Comment on above: IG% - Immature Granu locytes (promyelocytes, myelocytes and metamyelocytes) > 1% indicates that a LEFT SHIFT is Present. MCH (RBC) [Entitic mass] 29.8 pg 27.0-32.0 [facility] Nucleated RBC/100 WBC (Bld) [Ratio] 0 % 0-5 [facility] MCHC Auto (RBC) [Mass/Vol]Or dered By: Josef Garcia on 07-02-2023 MCHC (RBC) [Mass/Vol] 32.0 g/dL 32-36 [facility] No Panel InformationOrdered By: Josef Garcia on 07-02-2023 Estimated GFR (MDRD) Amer 96 mL/min >60 [facility] Comment on above: GFR Calc Estimated GFR (MDRD) Non-Af Amer 79 mL/min >60 [facility] Comment on above: Non- GFR Calc Thyroid Stimulating Hormone (TSH) 0.84 uIU/mL 0.358-3.74 [facility] Platelets bldOrdered By: Josef Garcia on 07-02-2023 Platelets (Bld) [#/Vol] 313 10*3/uL 150-450 [facility] Serum or plasma albumin devin urement (mass/volume)Ordered By: Josef Garcia on 07-02-2023 Albumin [Mass/Vol] 3.7 g/dL 3.2-5.0 [facility] Serum or plasma albumin/glob ulin mass ratioOrdered By: Josef Garcia on 07-02-2023 Albumin/Globulin [Mass ratio] 0.9 {ratio} 0.9-2.4 [facility] Serum or plasma calcium devin urement (mass/volume)Ordered By: Josef Jose on 07-02-2023 Calcium [Mass/Vol] 9.8 mg/dL 8.5-10.1 [facility] Serum or plasma creatinine m easurement (mass/volume)Ordered By: Josef Garcia on 07-02-2023 Creatinine [Mass/Vol] 1.01 mg/dL 0.70-1.30 [facility] Comment on above: The validity of the calculated GFR & GFRAA in patients over 70 years has not been determined. Clinical correlation is essential. Serum or plasma urea nitroge n measurement (mass/volume)Ordered By: Josef Jose on 07-02-2023 Urea nitrogen [Mass/Vol] 15 mg/dL 7-18 [facility] Thin prep Papanicolaou smear with manual screeningOrdered By: Josef Jose 07-02-2023 Thin prep Papanicolaou smear with manual screening 15 U/L 15-37 [facility] Thin prep Papanicolaou smear with manual screening 4 5-15 [facility] XR ABDOMEN APon 06-26-2023 XR ABDOMEN AP ORIGINAL EXAMINATION: ONE SUPINE XRAY VIEW(S) OF THE ABDOMEN 06/26/2023 1:31 pm COMPARISON: None. HISTORY: ORDERING SYSTEM PROVIDED HISTORY: Reason for Exam: calculus of ureter, right FINDINGS: The bowel gas pattern is within normal limits. No evidence of free intraperitoneal air or obstruction. No pathologic calcifications are identified. IMPRESSION: No acute intra-abdominal process. Interpreted by: Elroy Musa MD Preliminary Report By: Elroy Musa MD Electronically signed By Elroy Musa MD Dictated Date: 06/26/2023 1:41:43 PM Prelim Date: 06/26/2023 1:41:56 PM Sign Date: 06/26/2023 1:41:56 PM Ordering Provider: ARACELI Ghosh [facility] ([place]) Absolute lymphocyte countOrd ered By: ED PROVIDER on 06-21-2023 Lymphocytes Auto (Unsp spec) [#/Vol] 3.13 10*3/uL 0.83-4.51 [facility] Basophil percentageOrdered B y: Jayesh Crystal on 06-21-2023 Basophil percentage 0-5 SEEN /hpf 0-5 [facility] Chloride [Moles/Vol] 110 mmol/L 98-107 [facility] Glucose [Mass/Vol] 143 mg/dL 74-106 [facility] Comment on above: Fasting Glucose resu lt greater than or equal to 126 mg/dL suggests DIABETES MELLITUS per A.D.A. criteria. Potassium [Moles/Vol] 3.9 mmol/L 3.5-5.1 [facility] Sodium [Moles/Vol] 140 mmol/L 136-145 [facility] Basophil percentageOrdered B y: ED PROVIDER on 06-21-2023 Basophils/100 WBC (Bld) 0.1 % 0-1 [facility] Eosinophils/100 WBC (Bld) 1.9 % 0-5 [facility] Neutrophils (Bld) [#/Vol] 4.6 10*3/uL 2.0-7.7 [facility] Neutrophils/100 WBC (Bld) 51.8 % 47-70 [facility] WBC (Bld) [#/Vol] 8.8 10*3/uL 4.4-11.0 [facility] Bilirubin Test strip Ql (U)O rdered By: Jayesh Crystal on 06-21-2023 Bilirubin Ql (U) 1 mg/dL Negative [facility] Comment on above: COLOR OF URINE MAY A FFECT DIPSTICK RESULTS. Blood erythrocytes count (nu mber/volume)Ordered By: ED PROVIDER on 06-21-2023 RBC (Bld) [#/Vol] 4.94 10*6/uL 4.6-6.2 [facility] Blood hemoglobin measurement (mass/volume)Ordered By: ED PROVIDER on 06-21-2023 Hemoglobin (Bld) [Mass/Vol] 15.1 g/dL 13.0-16.5 [facility] Blood lymphocytes/100 leukoc ytesOrdered By: ED PROVIDER on 06-21-2023 Lymphocytes/100 WBC (Bld) 35.4 % 19-41 [facility] Blood monocytes/100 leukocyt esOrdered By: ED PROVIDER on 06-21-2023 Monocytes/100 WBC (Bld) 10.3 % 0-10 [facility] Blood platelet mean volumeOr dered By: ED PROVIDER on 06-21-2023 Platelet mean volume (Bld) [Entitic vol] 9.5 fL 6.2-12.0 [facility] Determination of erythrocyte mean corpuscular volume (MCV)Ordered By: ED PROVIDER on 06-21-2023 MCV (RBC) [Entitic vol] 93.1 fL 80-94 [facility] Hematocrit Auto (Bld) [Volum e fraction]Ordered By: ED PROVIDER on 06-21-2023 Hematocrit (Bld) [Volume fraction] 46.0 % 40-54 [facility] Ketones Test strip Ql (U)Ord ered By: Jayesh Crystla on 06-21-2023 Ketones Ql (U) 5 mg/dl Negative [facility] Laboratory - Chemistry and C hemistry - challengeOrdered By: Jayesh Crystal on 06-21-2023 CO2 [Moles/Vol] 25.0 mmol/L 21.0-32.0 [facility] Urea nitrogen/Creatinine [Mass ratio] 16.3 mg/mg 10-20 [facility] Laboratory - Hematology and Cell countsOrdered By: ED PROVIDER on 06-21-2023 Erythrocyte distribution width (RBC) [Entitic vol] 46.4 fL 35.1-43.9 [facility] Erythrocyte distribution width (RBC) [Ratio] 13.5 % 11.6-14.6 [facility] Immature granulocytes/100 WBC (Bld) 0.500 % 0.0-0.9 [facility] Comment on above: IG% - Immature Granu locytes (promyelocytes, myelocytes and metamyelocytes) > 1% indicates that a LEFT SHIFT is Present. MCH (RBC) [Entitic mass] 30.6 pg 27.0-32.0 [facility] Nucleated RBC/100 WBC (Bld) [Ratio] 0 % 0-5 [facility] MCHC Auto (RBC) [Mass/Vol]Or dered By: ED PROVIDER on 06-21-2023 MCHC (RBC) [Mass/Vol] 32.8 g/dL 32-36 [facility] Mucus LM Ql (Urine sed)Order ed By: Jayesh Crystal on 06-21-2023 Mucus Ql (Urine sed) 0 SEEN /hpf [facility] Nitrite Test strip Ql (U)Ord ered By: Jayesh Crystal on 06-21-2023 Nitrite Ql (U) Negative Negative [facility] No Panel InformationOrdered By: Jayesh Crystal on 06-21-2023 D-Dimer Quantitative (PE/DVT) 0.61 FEU/ug/m 0.27-0.49 [facility] Comment on above: D-Dimer ELEVATED (>0 .49): Additional studies and clinicalassessments are indicated to conclude diagnosis of:Deep Vein Thrombosis (DVT) or Pulmonary Embolism (PE)CRITICAL VALUE VERIFIED. CALLED TO SALMA ALFARO06/21/23 1056 Marilyn Muhammad.RESULTS READ BACK BY SAME . Estimated GFR (MDRD) Amer 99 mL/min >60 [facility] Comment on above: GFR Calc Estimated GFR (MDRD) Non-Af Amer 82 mL/min >60 [facility] Comment on above: Non- GFR Calc Troponin I High Sensitivity 3 pg/mL 3.0-78.0 [facility] Comment on above: Please Note: New Emilie t Units and Gender Specific Reference Ranges. For more information see Policy Stat Procedure [place] High Sensitivity Troponin (TNIH) and attachments. Platelets bldOrdered By: ED PROVIDER on 06-21-2023 Platelets (Bld) [#/Vol] 271 10*3/uL 150-450 [facility] Protein Test strip Ql (U)Ord ered By: Jayesh Crystal on 06-21-2023 Protein Ql (U) 30 mg/dl Negative [facility] Serum or plasma calcium devin urement (mass/volume)Ordered By: Jayesh Crystal on 06-21-2023 Calcium [Mass/Vol] 9.2 mg/dL 8.5-10.1 [facility] Serum or plasma creatinine m easurement (mass/volume)Ordered By: Jayesh Crystal on 06-21-2023 Creatinine [Mass/Vol] 0.98 mg/dL 0.70-1.30 [facility] Comment on above: The validity of the calculated GFR & GFRAA in patients over 70 years has not been determined. Clinical correlation is essential. Serum or plasma urea nitroge n measurement (mass/volume)Ordered By: Jayesh Crystal on 06-21-2023 Urea nitrogen [Mass/Vol] 16 mg/dL 7-18 [facility] Squamous epithelial cells de tection in urine sediment by light microscopyOrdered By: Jayesh Crystal on 06-21-2023 Epithelial cells.squamous LM Ql (Urine sed) 0-5 SEEN /hpf 0-5 [facility] Thin prep Papanicolaou smear with manual screeningOrdered By: Jayesh Crystal on 06-21-2023 Thin prep Papanicolaou smear with manual screening 5 5-15 [facility] Urine blood detectionOrdered By: Jayesh Crystal on 06-21-2023 RBC Ql (U) 50 /ul Negative [facility] RBC Ql (U) 0-5 SEEN /hpf 0-5 [facility] Urine clarityOrdered By: Miguelina Crystal on 06-21-2023 Clarity (U) Clear Clear [facility] Urine color determinationOrd ered By: Jayesh Crystal on 06-21-2023 Color (U) Yellow Yellow [facility] Urine glucose detectionOrder ed By: Jayesh Crystal on 06-21-2023 Glucose Ql (U) Normal mg/dl Normal [facility] Urine leukocyte esterase det ection by dipstickOrdered By: Jayesh Crystal on 06-21-2023 Leukocyte esterase Test strip Ql (U) 25 /ul Negative [facility] Urine pHOrdered By: Jayesh sierra on 06-21-2023 pH (U) 5.0 [pH] 5.0 - 8.0 [facility] Urine sediment bacteria coun t by microscopy (number/high power field)Ordered By: Jayesh Crystal on 06-21-2023 Bacteria LM.HPF (Urine sed) [#/Area] 1 /[HPF] None Seen [facility] Urine specific gravity measu rementOrdered By: Jayesh Crystal on 06-21-2023 Specific gravity (U) [Rel density] 1.030 1.002-1.03 0 [facility] Urobilinogen Auto test strip Ql (U)Ordered By: Jayesh Crystal on 06-21-2023 Urobilinogen Ql (U) 1 mg/dl Normal [facility] Absolute lymphocyte countOrd ered By: Josef Garcia on 05-27-2023 Lymphocytes Auto (Unsp spec) [#/Vol] 1.95 10*3/uL 0.83-4.51 [facility] Basophil percentageOrdered B y: Josef Garcia on 05-27-2023 Basophils/100 WBC (Bld) 0.3 % 0-1 [facility] Bilirubin [Mass/Vol] 1.00 mg/dL 0.20-1.00 [facility] Comment on above: For patients on eltr ombopag therapy, use of Dimension [place] TBIL is not recommended. Chloride [Moles/Vol] 106 mmol/L 98-107 [facility] Eosinophils/100 WBC (Bld) 1.6 % 0-5 [facility] Glucose [Mass/Vol] 93 mg/dL 74-106 [facility] Neutrophils (Bld) [#/Vol] 3.9 10*3/uL 2.0-7.7 [facility] Neutrophils/100 WBC (Bld) 57.2 % 47-70 [facility] Potassium [Moles/Vol] 4.0 mmol/L 3.5-5.1 [facility] Protein [Mass/Vol] 7.4 g/dL 6.4-8.2 [facility] Sodium [Moles/Vol] 140 mmol/L 136-145 [facility] WBC (Bld) [#/Vol] 6.7 10*3/uL 4.4-11.0 [facility] Bilirubin Test strip Ql (U)O rdered By: Josef Garcia on 05-27-2023 Bilirubin Ql (U) Negative Negative [facility] Blood erythrocytes count (nu mber/volume)Ordered By: Josef Garcia on 05-27-2023 RBC (Bld) [#/Vol] 4.86 10*6/uL 4.6-6.2 [facility] Blood hemoglobin measurement (mass/volume)Ordered By: Josef Garcia on 05-27-2023 Hemoglobin (Bld) [Mass/Vol] 14.4 g/dL 13.0-16.5 [facility] Blood lymphocytes/100 leukoc ytesOrdered By: Josef Garcia on 05-27-2023 Lymphocytes/100 WBC (Bld) 28.9 % 19-41 [facility] Blood monocytes/100 leukocyt esOrdered By: Josef Garcia on 05-27-2023 Monocytes/100 WBC (Bld) 11.7 % 0-10 [facility] Blood platelet mean volumeOr dered By: Josef Garcia on 05-27-2023 Platelet mean volume (Bld) [Entitic vol] 9.7 fL 6.2-12.0 [facility] Determination of erythrocyte mean corpuscular volume (MCV)Ordered By: Josef Garcia on 05-27-2023 MCV (RBC) [Entitic vol] 93.8 fL 80-94 [facility] Hematocrit Auto (Bld) [Volum e fraction]Ordered By: Josef Garcia on 05-27-2023 Hematocrit (Bld) [Volume fraction] 45.6 % 40-54 [facility] Ketones Test strip Ql (U)Ord ered By: Josef Garcia on 05-27-2023 Ketones Ql (U) Negative Negative [facility] Laboratory - Chemistry and C hemistry - challengeOrdered By: Josef Garcia 05-27-2023 ALP [Catalytic activity/Vol] 122 U/L 45-117 [facility] ALT [Catalytic activity/Vol] 26 U/L 16-61 [facility] CO2 [Moles/Vol] 29.0 mmol/L 21.0-32.0 [facility] Globulin (S) [Mass/Vol] 3.6 g/dL 2.2-4.2 [facility] Urea nitrogen/Creatinine [Mass ratio] 14.0 mg/mg 10-20 [facility] Laboratory - Hematology and Cell countsOrdered By: Josef Garcia on 05-27-2023 Erythrocyte distribution width (RBC) [Entitic vol] 48.6 fL 35.1-43.9 [facility] Erythrocyte distribution width (RBC) [Ratio] 14.2 % 11.6-14.6 [facility] Immature granulocytes/100 WBC (Bld) 0.300 % 0.0-0.9 [facility] Comment on above: IG% - Immature Granu locytes (promyelocytes, myelocytes and metamyelocytes) > 1% indicates that a LEFT SHIFT is Present. MCH (RBC) [Entitic mass] 29.6 pg 27.0-32.0 [facility] Nucleated RBC/100 WBC (Bld) [Ratio] 0 % 0-5 [facility] MCHC Auto (RBC) [Mass/Vol]Or dered By: Josef Garcia on 05-27-2023 MCHC (RBC) [Mass/Vol] 31.6 g/dL 32-36 [facility] Nitrite Test strip Ql (U)Ord ered By: Josef Garcia on 05-27-2023 Nitrite Ql (U) Negative Negative [facility] No Panel InformationOrdered By: Josef Garcia on 05-27-2023 Estimated GFR (MDRD) Amer 106 mL/min >60 [facility] Comment on above: GFR Calc Estimated GFR (MDRD) Non-Af Amer 87 mL/min >60 [facility] Comment on above: Non- GFR Calc Platelets bldOrdered By: Josef Garcia on 05-27-2023 Platelets (Bld) [#/Vol] 243 10*3/uL 150-450 [facility] Protein Test strip Ql (U)Ord ered By: Josef Garcia on 05-27-2023 Protein Ql (U) 15 mg/dl Negative [facility] Serum or plasma albumin devin urement (mass/volume)Ordered By: Josef Garcia on 05-27-2023 Albumin [Mass/Vol] 3.8 g/dL 3.2-5.0 [facility] Serum or plasma albumin/glob ulin mass ratioOrdered By: Josef Garcia on 05-27-2023 Albumin/Globulin [Mass ratio] 1.1 {ratio} 0.9-2.4 [facility] Serum or plasma calcium devin urement (mass/volume)Ordered By: Josef Garcia on 05-27-2023 Calcium [Mass/Vol] 9.4 mg/dL 8.5-10.1 [facility] Serum or plasma creatinine m easurement (mass/volume)Ordered By: Josef Garcia on 05-27-2023 Creatinine [Mass/Vol] 0.93 mg/dL 0.70-1.30 [facility] Comment on above: The validity of the calculated GFR & GFRAA in patients over 70 years has not been determined. Clinical correlation is essential. Serum or plasma urea nitroge n measurement (mass/volume)Ordered By: Josef Garcia on 05-27-2023 Urea nitrogen [Mass/Vol] 13 mg/dL 7-18 [facility] Thin prep Papanicolaou smear with manual screeningOrdered By: Josef Garcia on 05-27-2023 Thin prep Papanicolaou smear with manual screening 13 U/L 15-37 [facility] Thin prep Papanicolaou smear with manual screening 5 5-15 [facility] Urine blood detectionOrdered By: Josef Garcia on 05-27-2023 RBC Ql (U) 10 /ul Negative [facility] Urine clarityOrdered By: Josef Garcia on 05-27-2023 Clarity (U) Clear Clear [facility] Urine color determinationOrd ered By: Josef Garcia on 05-27-2023 Color (U) Yellow Yellow [facility] Urine glucose detectionOrder ed By: Josef Garcia on 05-27-2023 Glucose Ql (U) Normal mg/dl Normal [facility] Urine leukocyte esterase det ection by dipstickOrdered By: Josef Garcia on 05-27-2023 Leukocyte esterase Test strip Ql (U) 25 /ul Negative [facility] Urine pHOrdered By: Josef Garcia on 05-27-2023 pH (U) 5.0 [pH] 5.0 - 8.0 [facility] Urine specific gravity measu rementOrdered By: Josef Garcia on 05-27-2023 Specific gravity (U) [Rel density] 1.020 1.002-1.03 0 [facility] Urobilinogen Auto test strip Ql (U)Ordered By: Josef Garcia on 05-27-2023 Urobilinogen Ql (U) Normal mg/dl Normal [facility] Absolute lymphocyte countOrd ered By: Dr. Garcia on 01-01-2023 Lymphocytes Auto (Unsp spec) [#/Vol] 1.89 10*3/uL 0.83-4.51 [facility] Basophil percentageOrdered B y: Dr. Garcia on 01-01-2023 Basophils/100 WBC (Bld) 0.1 % 0-1 [facility] Bilirubin [Mass/Vol] 0.80 mg/dL 0.20-1.00 [facility] Comment on above: For patients on eltr ombopag therapy, use of Dimension [place] TBIL is not recommended. Chloride [Moles/Vol] 105 mmol/L 98-107 [facility] Eosinophils/100 WBC (Bld) 1.7 % 0-5 [facility] Glucose [Mass/Vol] 95 mg/dL 74-106 [facility] Neutrophils (Bld) [#/Vol] 4.3 10*3/uL 2.0-7.7 [facility] Neutrophils/100 WBC (Bld) 60.1 % 47-70 [facility] Potassium [Moles/Vol] 4.0 mmol/L 3.5-5.1 [facility] Protein [Mass/Vol] 7.2 g/dL 6.4-8.2 [facility] Sodium [Moles/Vol] 137 mmol/L 136-145 [facility] WBC (Bld) [#/Vol] 7.1 10*3/uL 4.4-11.0 [facility] Blood erythrocytes count (nu mber/volume)Ordered By: Dr. Garcia on 01-01-2023 RBC (Bld) [#/Vol] 4.83 10*6/uL 4.6-6.2 [facility] Blood hemoglobin measurement (mass/volume)Ordered By: Dr. Garcia on 01-01-2023 Hemoglobin (Bld) [Mass/Vol] 14.3 g/dL 13.0-16.5 [facility] Blood lymphocytes/100 leukoc ytesOrdered By: Dr. Garcia on 01-01-2023 Lymphocytes/100 WBC (Bld) 26.5 % 19-41 [facility] Blood monocytes/100 leukocyt esOrdered By: Dr. Garcia on 01-01-2023 Monocytes/100 WBC (Bld) 11.2 % 0-10 [facility] Blood platelet mean volumeOr dered By: Dr. Garcia on 01-01-2023 Platelet mean volume (Bld) [Entitic vol] 9.3 fL 6.2-12.0 [facility] Determination of erythrocyte mean corpuscular volume (MCV)Ordered By: Dr. Garcia on 01-01-2023 MCV (RBC) [Entitic vol] 93.2 fL 80-94 [facility] Hematocrit Auto (Bld) [Volum e fraction]Ordered By: Dr. Garcia on 01-01-2023 Hematocrit (Bld) [Volume fraction] 45.0 % 40-54 [facility] Laboratory - Chemistry and C hemistry - challengeOrdered By: Dr. Garcia on 01-01-2023 ALP [Catalytic activity/Vol] 141 U/L 45-117 [facility] ALT [Catalytic activity/Vol] 22 U/L 16-61 [facility] CO2 [Moles/Vol] 26.0 mmol/L 21.0-32.0 [facility] Globulin (S) [Mass/Vol] 3.6 g/dL 2.2-4.2 [facility] Urea nitrogen/Creatinine [Mass ratio] 17.7 mg/mg 10-20 [facility] Laboratory - Hematology and Cell countsOrdered By: Dr. Garcia on 01-01-2023 Erythrocyte distribution width (RBC) [Entitic vol] 49.7 fL 35.1-43.9 [facility] Erythrocyte distribution width (RBC) [Ratio] 14.6 % 11.6-14.6 [facility] Immature granulocytes/100 WBC (Bld) 0.400 % 0.0-0.9 [facility] Comment on above: IG% - Immature Granu locytes (promyelocytes, myelocytes and metamyelocytes) > 1% indicates that a LEFT SHIFT is Present. MCH (RBC) [Entitic mass] 29.6 pg 27.0-32.0 [facility] Nucleated RBC/100 WBC (Bld) [Ratio] 0 % 0-5 [facility] MCHC Auto (RBC) [Mass/Vol]Or dered By: Dr. Garcia on 01-01-2023 MCHC (RBC) [Mass/Vol] 31.8 g/dL 32-36 [facility] No Panel InformationOrdered By: Dr. Garcia on 01-01-2023 Estimated GFR (MDRD) Amer 118 mL/min >60 [facility] Comment on above: GFR Calc Estimated GFR (MDRD) Non-Af Amer 97 mL/min >60 [facility] Comment on above: Non- GFR Calc Prostate Specific Antigen Screen 0.76 ng/mL 0.00-4.00 [facility] Comment on above: This test was perfor med using the TPSA assay method for thedb4objects chemistry system. Values obtained with differentassay methods cannot be used interchangably.When changing PSA assays in the course of monitoring apatient, additional sequential testing should be carriedout to confirm baseline values. Thyroid Stimulating Hormone (TSH) 1.55 uIU/mL 0.358-3.74 [facility] Platelets bldOrdered By: Dr. Garcia on 01-01-2023 Platelets (Bld) [#/Vol] 240 10*3/uL 150-450 [facility] Serum or plasma albumin devin urement (mass/volume)Ordered By: Dr. Garcia on 01-01-2023 Albumin [Mass/Vol] 3.6 g/dL 3.2-5.0 [facility] Serum or plasma albumin/glob ulin mass ratioOrdered By: Dr. Garcia on 01-01-2023 Albumin/Globulin [Mass ratio] 1.0 {ratio} 0.9-2.4 [facility] Serum or plasma calcium devin urement (mass/volume)Ordered By: Dr. Garcia on 01-01-2023 Calcium [Mass/Vol] 9.4 mg/dL 8.5-10.1 [facility] Serum or plasma creatinine m easurement (mass/volume)Ordered By: Dr. Garcia on 01-01-2023 Creatinine [Mass/Vol] 0.85 mg/dL 0.70-1.30 [facility] Comment on above: The validity of the calculated GFR & GFRAA in patients over 70 years has not been determined. Clinical correlation is essential. Serum or plasma urea nitroge n measurement (mass/volume)Ordered By: Dr. Garcia on 01-01-2023 Urea nitrogen [Mass/Vol] 15 mg/dL 7-18 [facility] Thin prep Papanicolaou smear with manual screeningOrdered By: Dr. Garcia on 01-01-2023 Thin prep Papanicolaou smear with manual screening 11 U/L 15-37 [facility] Thin prep Papanicolaou smear with manual screening 6 5-15 [facility] Basophil percentageOrdered B y: Dr. Garcia on 12-01-2022 Basophil percentage 0 SEEN /hpf 0-5 [facility] Bilirubin Test strip Ql (U)O rdered By: Dr. Garcia on 12-01-2022 Bilirubin Ql (U) Negative Negative [facility] Ketones Test strip Ql (U)Ord ered By: Dr. Garcia on 12-01-2022 Ketones Ql (U) 5 mg/dl Negative [facility] Mucus LM Ql (Urine sed)Order ed By: Dr. Garcia on 12-01-2022 Mucus Ql (Urine sed) 1+ /hpf [facility] Nitrite Test strip Ql (U)Ord ered By: Dr. Garcia on 12-01-2022 Nitrite Ql (U) Negative Negative [facility] Protein Test strip Ql (U)Ord ered By: Dr. Garcia on 12-01-2022 Protein Ql (U) 15 mg/dl Negative [facility] Squamous epithelial cells de tection in urine sediment by light microscopyOrdered By: Dr. Garcia on 12-01-2022 Epithelial cells.squamous LM Ql (Urine sed) 0 SEEN /hpf 0-5 [facility] Urine blood detectionOrdered By: Dr. Garcia on 12-01-2022 RBC Ql (U) 10 /ul Negative [facility] RBC Ql (U) 0-5 SEEN /hpf 0-5 [facility] Urine clarityOrdered By: Dr. Garcia on 12-01-2022 Clarity (U) Clear Clear [facility] Urine color determinationOrd ered By: Dr. Garcia on 12-01-2022 Color (U) Yellow Yellow [facility] Urine glucose detectionOrder ed By: Dr. Garcia on 12-01-2022 Glucose Ql (U) Normal mg/dl Normal [facility] Urine leukocyte esterase det ection by dipstickOrdered By: Dr. Garcia on 12-01-2022 Leukocyte esterase Test strip Ql (U) Negative Negative [facility] Urine pHOrdered By: Dr. Garcia on 12-01-2022 pH (U) 5.0 [pH] 5.0 - 8.0 [facility] Urine sediment bacteria coun t by microscopy (number/high power field)Ordered By: Dr. Garcia on 12-01-2022 Bacteria LM.HPF (Urine sed) [#/Area] RARE /hpf None Seen [facility] Urine specific gravity measu rementOrdered By: Dr. Garcia on 12-01-2022 Specific gravity (U) [Rel density] 1.025 1.002-1.03 0 [facility] Urobilinogen Auto test strip Ql (U)Ordered By: Dr. Garcia on 12-01-2022 Urobilinogen Ql (U) Normal mg/dl Normal [facility] Absolute lymphocyte countOrd ered By: Dr. Linton on 11-28-2022 Lymphocytes Auto (Unsp spec) [#/Vol] 1.77 10*3/uL 0.83-4.51 [facility] Basophil percentageOrdered B y: Dr. Linton on 11-28-2022 Basophils/100 WBC (Bld) 0.1 % 0-1 [facility] Chloride [Moles/Vol] 103 mmol/L 98-107 [facility] Eosinophils/100 WBC (Bld) 1.1 % 0-5 [facility] Glucose [Mass/Vol] 103 mg/dL 74-106 [facility] Comment on above: Fasting Glucose resu lt from 100 to 125 mg/dL suggests IMPAIRED HOMEOSTASIS per A.D.A. criteria. Neutrophils (Bld) [#/Vol] 6.8 10*3/uL 2.0-7.7 [facility] Neutrophils/100 WBC (Bld) 70.4 % 47-70 [facility] Potassium [Moles/Vol] 4.3 mmol/L 3.5-5.1 [facility] Comment on above: Moderate Hemolysis, Result may be falsely increased. Sodium [Moles/Vol] 138 mmol/L 136-145 [facility] WBC (Bld) [#/Vol] 9.7 10*3/uL 4.4-11.0 [facility] Blood erythrocytes count (nu mber/volume)Ordered By: Dr. Linton on 11-28-2022 RBC (Bld) [#/Vol] 4.96 10*6/uL 4.6-6.2 [facility] Blood hemoglobin measurement (mass/volume)Ordered By: Dr. Linton on 11-28-2022 Hemoglobin (Bld) [Mass/Vol] 14.7 g/dL 13.0-16.5 [facility] Blood lymphocytes/100 leukoc ytesOrdered By: Dr. Linton on 11-28-2022 Lymphocytes/100 WBC (Bld) 18.3 % 19-41 [facility] Blood monocytes/100 leukocyt esOrdered By: Dr. Linton on 11-28-2022 Monocytes/100 WBC (Bld) 9.8 % 0-10 [facility] Blood platelet mean volumeOr dered By: Dr. Linton on 11-28-2022 Platelet mean volume (Bld) [Entitic vol] 9.0 fL 6.2-12.0 [facility] Determination of erythrocyte mean corpuscular volume (MCV)Ordered By: Dr. Linton on 11-28-2022 MCV (RBC) [Entitic vol] 91.3 fL 80-94 [facility] Hematocrit Auto (Bld) [Volum e fraction]Ordered By: Dr. Linton on 11-28-2022 Hematocrit (Bld) [Volume fraction] 45.3 % 40-54 [facility] Influenza virus A and B and SARS-CoV-2 (COVID-19) Ag panel - Upper respiratory specimOrdered By: Dr. Linton on 11-28-2022 SARS-CoV-2 (COVID-19) RNA JOHNNY+probe Ql (Resp) [facility] Laboratory - Chemistry and C hemistry - challengeOrdered By: Dr. Linton on 11-28-2022 CO2 [Moles/Vol] 26.0 mmol/L 21.0-32.0 [facility] Natriuretic peptide B (Bld) [Mass/Vol] 10.4 pg/mL 0-100 [facility] Urea nitrogen/Creatinine [Mass ratio] 16.1 mg/mg 10-20 [facility] Laboratory - Hematology and Cell countsOrdered By: Dr. Linton on 11-28-2022 Erythrocyte distribution width (RBC) [Entitic vol] 48.7 fL 35.1-43.9 [facility] Erythrocyte distribution width (RBC) [Ratio] 14.5 % 11.6-14.6 [facility] Immature granulocytes/100 WBC (Bld) 0.300 % 0.0-0.9 [facility] Comment on above: IG% - Immature Granu locytes (promyelocytes, myelocytes and metamyelocytes) > 1% indicates that a LEFT SHIFT is Present. MCH (RBC) [Entitic mass] 29.6 pg 27.0-32.0 [facility] Nucleated RBC/100 WBC (Bld) [Ratio] 0 % 0-5 [facility] MCHC Auto (RBC) [Mass/Vol]Or dered By: Dr. Linton on 11-28-2022 MCHC (RBC) [Mass/Vol] 32.5 g/dL 32-36 [facility] No Panel InformationOrdered By: Dr. Linton on 11-28-2022 Estimated Creatinine Clearance Calc 52.81 ml/min [facility] Estimated GFR (MDRD) Amer 85 mL/min >60 [facility] Comment on above: GFR Calc Estimated GFR (MDRD) Non-Af Amer 71 mL/min >60 [facility] Comment on above: Non- GFR Calc Troponin I High Sensitivity 4 pg/mL 3.0-78.0 [facility] Comment on above: Please Note: New Emilie t Units and Gender Specific Reference Ranges. For more information see Policy Stat Procedure [place] High Sensitivity Troponin (TNIH) and attachments. Platelets bldOrdered By: Dr. Linton on 11-28-2022 Platelets (Bld) [#/Vol] 240 10*3/uL 150-450 [facility] Serum or plasma calcium devin urement (mass/volume)Ordered By: Dr. Linton on 11-28-2022 Calcium [Mass/Vol] 9.6 mg/dL 8.5-10.1 [facility] Serum or plasma creatinine m easurement (mass/volume)Ordered By: Dr. Linton on 11-28-2022 Creatinine [Mass/Vol] 1.12 mg/dL 0.70-1.30 [facility] Comment on above: The validity of the calculated GFR & GFRAA in patients over 70 years has not been determined. Clinical correlation is essential. Serum or plasma urea nitroge n measurement (mass/volume)Ordered By: Dr. Linton on 11-28-2022 Urea nitrogen [Mass/Vol] 18 mg/dL 7-18 [facility] Thin prep Papanicolaou smear with manual screeningOrdered By: Dr. Linton on 11-28-2022 Thin prep Papanicolaou smear with manual screening 9 5-15 [facility] Basophil percentageOrdered B y: Dr. Salgado on 10-28-2022 Chloride [Moles/Vol] 108 mmol/L 98-107 [facility] Glucose [Mass/Vol] 113 mg/dL 74-106 [facility] Comment on above: Fasting Glucose resu lt from 100 to 125 mg/dL suggests IMPAIRED HOMEOSTASIS per A.D.A. criteria. Potassium [Moles/Vol] 3.8 mmol/L 3.5-5.1 [facility] Sodium [Moles/Vol] 136 mmol/L 136-145 [facility] Laboratory - Chemistry and C hemistry - challengeOrdered By: Dr. Salgado on 10-28-2022 CO2 [Moles/Vol] 28.0 mmol/L 21.0-32.0 [facility] Urea nitrogen/Creatinine [Mass ratio] 11.8 mg/mg 10-20 [facility] No Panel InformationOrdered By: Dr. Salgado on 10-28-2022 Estimated GFR (MDRD) Amer 106 mL/min >60 [facility] Comment on above: GFR Calc Estimated GFR (MDRD) Non-Af Amer 87 mL/min >60 [facility] Comment on above: Non- GFR Calc Serum or plasma calcium devin urement (mass/volume)Ordered By: Dr. Salgado on 10-28-2022 Calcium [Mass/Vol] 9.2 mg/dL 8.5-10.1 [facility] Serum or plasma creatinine m easurement (mass/volume)Ordered By: Dr. Salgado on 10-28-2022 Creatinine [Mass/Vol] 0.93 mg/dL 0.70-1.30 [facility] Comment on above: The validity of the calculated GFR & GFRAA in patients over 70 years has not been determined. Clinical correlation is essential. Serum or plasma urea nitroge n measurement (mass/volume)Ordered By: Dr. Salgado on 10-28-2022 Urea nitrogen [Mass/Vol] 11 mg/dL 7-18 [facility] Thin prep Papanicolaou smear with manual screeningOrdered By: Dr. Salgado on 10-28-2022 Thin prep Papanicolaou smear with manual screening 0 5-15 [facility] Erythrocyte sedimentation ra teOrdered By: Dr. Garcia on 09-15-2022 ESR (Bld) [Velocity] 18 mm/h 0-20 [facility] Serum or plasma C reactive p rotein measurement (mass/volume)Ordered By: Dr. Garcia on 09-15-2022 CRP [Mass/Vol] 4.84 mg/L 0.0-3.0 [facility] Comment on above: C-Reactive Protein ( CRP) provides useful information for thediagnosis, therapy and monitoring of inflammatory processesand associated diseases. For the evaluation of Relative Riskfor Cardiovascular Disease, a High Sensitivity CRP (HSCRP)should be ordered. Serum or plasma uric acid me asurement (mass/volume)Ordered By: Dr. Garcia on 09-15-2022 Urate [Mass/Vol] 7.1 mg/dL 3.5-7.2 [facility] Comment on above: The drugs N-Acetylcy steine and Metamizole may falsely depress this assay. Absolute lymphocyte countOrd ered By: Josef Garcia on 09-09-2022 Lymphocytes Auto (Unsp spec) [#/Vol] 1.92 10*3/uL 0.83-4.51 [facility] Basophil percentageOrdered B y: Josef Garcia on 09-09-2022 Basophils/100 WBC (Bld) 0.3 % 0-1 [facility] Bilirubin [Mass/Vol] 1.00 mg/dL 0.20-1.00 [facility] Comment on above: For patients on eltr ombopag therapy, use of Dimension [place] TBIL is not recommended. Chloride [Moles/Vol] 107 mmol/L 98-107 [facility] Eosinophils/100 WBC (Bld) 2.2 % 0-5 [facility] Glucose [Mass/Vol] 84 mg/dL 74-106 [facility] Neutrophils (Bld) [#/Vol] 3.9 10*3/uL 2.0-7.7 [facility] Neutrophils/100 WBC (Bld) 57.4 % 47-70 [facility] Potassium [Moles/Vol] 3.9 mmol/L 3.5-5.1 [facility] Protein [Mass/Vol] 7.2 g/dL 6.4-8.2 [facility] Sodium [Moles/Vol] 142 mmol/L 136-145 [facility] WBC (Bld) [#/Vol] 6.9 10*3/uL 4.4-11.0 [facility] Blood erythrocytes count (nu mber/volume)Ordered By: Josef Garcia on 09-09-2022 RBC (Bld) [#/Vol] 4.57 10*6/uL 4.6-6.2 [facility] Blood hemoglobin measurement (mass/volume)Ordered By: Josef Garcia on 09-09-2022 Hemoglobin (Bld) [Mass/Vol] 13.8 g/dL 13.0-16.5 [facility] Blood lymphocytes/100 leukoc ytesOrdered By: Josef Garcia on 09-09-2022 Lymphocytes/100 WBC (Bld) 28.0 % 19-41 [facility] Blood monocytes/100 leukocyt esOrdered By: Josef Garcia on 09-09-2022 Monocytes/100 WBC (Bld) 12.0 % 0-10 [facility] Blood platelet mean volumeOr dered By: Josef Garcia on 09-09-2022 Platelet mean volume (Bld) [Entitic vol] 10.0 fL 6.2-12.0 [facility] Determination of erythrocyte mean corpuscular volume (MCV)Ordered By: Josef Garcia on 09-09-2022 MCV (RBC) [Entitic vol] 90.8 fL 80-94 [facility] Hematocrit Auto (Bld) [Volum e fraction]Ordered By: Josef Garcia on 09-09-2022 Hematocrit (Bld) [Volume fraction] 41.5 % 40-54 [facility] Laboratory - Chemistry and C hemistry - challengeOrdered By: Josef Garcia on 09-09-2022 ALP [Catalytic activity/Vol] 127 U/L 45-117 [facility] ALT [Catalytic activity/Vol] 30 U/L 16-61 [facility] CO2 [Moles/Vol] 28.0 mmol/L 21.0-32.0 [facility] Globulin (S) [Mass/Vol] 3.4 g/dL 2.2-4.2 [facility] Urea nitrogen/Creatinine [Mass ratio] 10.3 mg/mg 10-20 [facility] Laboratory - Chemistry and C hemistry - challengeOrdered By: Dr. Garcia on 09-09-2022 Natriuretic peptide B (Bld) [Mass/Vol] 18.2 pg/mL 0-100 [facility] Laboratory - Hematology and Cell countsOrdered By: Josef Garcia on 09-09-2022 Erythrocyte distribution width (RBC) [Entitic vol] 45.3 fL 35.1-43.9 [facility] Erythrocyte distribution width (RBC) [Ratio] 13.5 % 11.6-14.6 [facility] Immature granulocytes/100 WBC (Bld) 0.100 % 0.0-0.9 [facility] Comment on above: IG% - Immature Granu locytes (promyelocytes, myelocytes and metamyelocytes) > 1% indicates that a LEFT SHIFT is Present. MCH (RBC) [Entitic mass] 30.2 pg 27.0-32.0 [facility] Nucleated RBC/100 WBC (Bld) [Ratio] 0 % 0-5 [facility] MCHC Auto (RBC) [Mass/Vol]Or dered By: Josef Garcia on 09-09-2022 MCHC (RBC) [Mass/Vol] 33.3 g/dL 32-36 [facility] No Panel InformationOrdered By: Josef Garcia on 09-09-2022 Estimated GFR (MDRD) Amer 114 mL/min >60 [facility] Comment on above: GFR Calc Estimated GFR (MDRD) Non-Af Amer 94 mL/min >60 [facility] Comment on above: Non- GFR Calc Platelets bldOrdered By: Josef Garcia on 09-09-2022 Platelets (Bld) [#/Vol] 242 10*3/uL 150-450 [facility] Serum or plasma albumin devin urement (mass/volume)Ordered By: Josef Garcia on 09-09-2022 Albumin [Mass/Vol] 3.8 g/dL 3.2-5.0 [facility] Serum or plasma albumin/glob ulin mass ratioOrdered By: Josef Garcia on 09-09-2022 Albumin/Globulin [Mass ratio] 1.1 {ratio} 0.9-2.4 [facility] Serum or plasma calcium devin urement (mass/volume)Ordered By: Josef Garcia on 09-09-2022 Calcium [Mass/Vol] 9.5 mg/dL 8.5-10.1 [facility] Serum or plasma creatinine m easurement (mass/volume)Ordered By: Josef Garcia on 09-09-2022 Creatinine [Mass/Vol] 0.87 mg/dL 0.70-1.30 [facility] Comment on above: The validity of the calculated GFR & GFRAA in patients over 70 years has not been determined. Clinical correlation is essential. Serum or plasma urea nitroge n measurement (mass/volume)Ordered By: Josef Garcia on 09-09-2022 Urea nitrogen [Mass/Vol] 9 mg/dL 7-18 [facility] Thin prep Papanicolaou smear with manual screeningOrdered By: Josef Garcia on 09-09-2022 Thin prep Papanicolaou smear with manual screening 27 U/L 15-37 [facility] Thin prep Papanicolaou smear with manual screening 7 5-15 [facility] Radiologyon 08-04-2022 US Kidney - bilateral Normal [facility] [place] Work Phone: Laboratory - Microbiology an d Antimicrobial susceptibilityOrdered By: Dr. Garcia on 06-18-2022 SARS-CoV-2 (COVID-19) RNA JOHNNY+probe Ql (Unsp spec) Not detected Not Detect [facility] Comment on above: Normal Reference Ran ge: Not DetectedMethod:(RT-PCR) real-time reverse transcriptase PCRLuminex MARILYN Instrument*The Food and Drug Administration (FDA) has issued an Emergency Use Authorization (EAU) for the Korbitec SARS-CoV-2 Assay for the rapid detection of the virus that causes COVID-19. This test has been validated, but the FDAs independent review of this validation is pending.*Negative results do not preclude infection and should not be used as the sole basis for treatment or patient management. Optimum specimen types and timing for peak viral levels during infections caused by SARS-CoV-2 have not been determined. Collection of multiple specimens from the same patient may be necessary to detect the virus. The possibility of a false negative result should be considered if the patient has clinical presentation or has had recent exposure. No Panel InformationOrdered By: Dr. Garcia on 06-18-2022 Influenza Types A,B Direct FA (JEN) [facility] RSV Ag EIAOrdered By: Dr. Cassi samuel on 06-18-2022 RSV Ag Immune stain Ql (Tiss) [facility] ABDOMEN AP VIEWon 05-01-2022 ABDOMEN AP VIEW Patient Name: BILL ESTRADA STUDY: ABDOMEN AP VIEW; ; 05/01/2022 10:09 am INDICATION: left renal stone N20.0: Left renal stone. COMPARISON: Retrograde pyelogram, 03/28/2022. KUB, 04/03/2022. ACCESSION NUMBER(S): [id number] ORDERING CLINICIAN: ARACELY RHOADES TECHNIQUE: AP radiograph the abdomen was obtained. FINDINGS: Nonobstructive bowel gas pattern is present. Left-sided double-J ureteral stent is present. Radiopaque circumscribed oval masses are present in the left upper quadrant and left lower quadrant, measuring 4 mm and 6 mm respectively. The lower 6 mm calcific density appears similar compared to prior imaging. Mild interval increase in size of the left upper quadrant calcific density, previously measuring 3 mm, now measuring 4 mm. These calcific densities likely reflect renal calculi. No acute osseous abnormality. S shaped scoliosis is present. Severe osteoarthrosis of the lumbosacral spine is present. IMPRESSION: 1. Two calcific bodies are seen overlying the expected location of the left kidney, likely reflecting renal calculi. The upper pole calculus appears mildly increased in size compared to prior imaging. 2. A double-J ureteral stent is present. I personally reviewed the images/study and I agree with the findings as stated. This study was interpreted at [facility], [place], [place]. Electronically signed by: GUERA PICKENS MD [facility] Radiologyon 05-01-2022 XR Abdomen AP Please click on the link to view the study images Normal [facility] [place] Work Phone: XR Abdomen AP Normal [facility] [place] Work Phone: Tobacco Screening.on Adult depression screening assessment No [facility] Phone: Fall risk assessment a) No falls within the last year [facility] Phone: Tobacco use status [facility] b) No [facility] Phone: Order Reconciliationon 04-25 Order Reconciliation Page 1 Discharge Reconciliation Document Reconciliation Type: Discharge requested on behalf of Aracely Cole (Physician) done by Aracely Cole) Discharge - Reconciliation: 25-Apr-2022 14:20 by: Aracely Cole) Home Medications EnteredHOME MEDICATIONS AT DISCHARGE DateReconciliation Comment/ Additional Information Albuterol (Eqv-ProAir HFA) 90 mcg/inh inhalation aerosol 2 puff(s) inhaled every 6 hours, As Needed 25-Apr-2022 11:57 Albuterol (Eqv-ProAir HFA) 90 mcg/inh inhalation aerosol 2 puff(s) inhaled every 6 hours, As Needed 25-Apr-2022 11:57 Albuterol (Eqv-ProAir HFA) 90 mcg/inh inhalation aerosol is continued as Albuterol (Eqv-ProAir HFA) 90 mcg/inh inhalation aerosol gabapentin 400 mg oral capsule 1 cap(s) orally 2 times a day 22-Apr-2022 11:16 gabapentin 400 mg oral capsule 1 cap(s) orally 2 times a day 22-Apr-2022 11:16 gabapentin 400 mg oral capsule is continued as gabapentin 400 mg oral capsule omeprazole 20 mg oral delayed release capsule 1 cap(s) orally once a day 22-Apr-2022 11:16 omeprazole 20 mg oral delayed release capsule 1 cap(s) orally once a day 22-Apr-2022 11:16 omeprazole 20 mg oral delayed release capsule is continued as omeprazole 20 mg oral delayed release capsule pramipexole 0.5 mg oral tablet 1 tab(s) orally once a day (at bedtime) 22-Apr-2022 11:16 pramipexole 0.5 mg oral tablet 1 tab(s) orally once a day (at bedtime) 22-Apr-2022 11:16 pramipexole 0.5 mg oral tablet is continued as pramipexole 0.5 mg oral tablet Current OrdersDateHOME MEDICATIONS AT DISCHARGE DateReconciliation Comment/ Additional Information Lactated Ringers Infusion IV Bag Volume = 1,000 mL Run at: 100 mL/hr IntraVenous Clinician Notes: Estrella-operative order ONLY 23-Apr-2022 12:18 Lactated Ringers Infusion is not required Lactated Ringers Infusion IV Bag Volume = 1,000 mL Run at: 100 mL/hr IntraVenous 23-Apr-2022 12:17 Lactated Ringers Infusion is not required Midazolam Injectable (VERSED)DOSE = 1 mg IntraVenous Push Once 23-Apr-2022 12:17 Midazolam Injectable is not required Naloxone Injectable (NARCAN)DOSE = 0.2 mg IntraVenous Push Once, PRN If patient RR below 10, obtunded or unarousableClinician Notes: DO NOT ADMINISTER UNTIL PHYSiCIAN HAS BEEN NOTIFIED AND ASSESSED PATIENT 23-Apr-2022 12:18 Naloxone Injectable is not required Home Medications Added During Discharge Reconciliation Call Physician For: excessive bleeding (slow general oozing that completely soaks dressing or fresh bright red bleeding) or bleeding that will not stop. Apply pressure to the area and elevate. Call Physician For: inability to urinate every 8-12 hours and your bladder becomes too full or painful. Call Physician For: persistant nausea and/or vomiting Over 24 hours Call Physician For: signs and sypmtoms of infection Increased redness or swelling at incision site, increased pain/tenderness at surgical site, increased temperature greater than 100 degress, increasing and/or progressive drainage from surgical site, and/or unusual odor from surgical site. Diet Regular Discharge Discharge Diagnosis< N20.0 Kidney stone on left side Discharge Provider, Aracely Cole Discharge Disposition : .Home Condition at Discharge: Satisfactory Discharge Communication Instructions for Nursing Only: Remove IV prior to discharge from hospital. Do not remove any midline, if present, without an order from the provider. Discharge Instructions - PHR After your discharge from the hospital, two Summary of Care Documents will be available online in your Personal Health Record (PHR). 1.Consolidated-Clinical Document Architecture (C-CDA) Patient Discharge Summary This document is a summary of your hospital stay to be kept for your reference.2.C-CDA Visit Summary This document is a summary of your hospital stay to be shared with your follow-up providers (doctor, knife finisher, physical therapist, etc.). Ditropan XL 5 mg/24 hours oral tablet, extended release 1 tab(s) orally 2 times a day Follow Up with Dr. Maradiaga in 1 Weeks In office for stent removal Pyridium 100 mg oral tablet 1 tab(s) orally 3 times a day Tylenol 8 Hour 650 mg oral tablet, extended release 2 tab(s) orally 2 times a day, As Needed All Active Home Medications at time of Discharge Reconciliation: 25-Apr-2022 14:20 Albuterol (Eqv-ProAir HFA) 90 mcg/inh inhalation aerosol 2 puff(s) inhaled every 6 hours, As Needed Call Physician For: excessive bleeding (slow general oozing that completely soaks dressing or fresh bright red bleeding) or bleeding that will not stop. Apply pressure to the area and elevate. Call Physician For: inability to urinate every 8-12 hours and your bladder becomes too full or painful. Call Physician For: persistant nausea and/or vomiting Over 24 hours Call Physician For: signs and sypmtoms of infection Increased redness or swelling at incision site, increased pain/tenderness a (more content not included)... Normal [facility] CORONAVIRUS 2019, SCREEN ASY MPTOMATICon 04-24-2022 SARS-CoV-2 (COVID-19) RNA JOHNNY+probe Ql (Unsp spec) Not detected Normal Not Detected [facility] Comment on above: Result Comment: . This assay is designed to detect the N, ORF1ab and/or S genes of SARS-CoV-2 via nucleic acid amplification. A Negative (NOT DETECTED) result does not preclude 2019-nCoV infection since the adequacy of sample collection and/or low viral burden may result in presence of viral nucleic acids below the clinical sensitivity of this test method. Negative (NOT DETECTED) result should not be used as the sole basis for treatment or other patient management decisions. Rather negative results should be combined with clinical observations, patient history, and epidemiological information to make patient management decisions. Fact sheet for providers: https://www.fda.gov/media/921994/download Fact sheet for patients: https://www.fda.gov/media/581638/download This test has received FDA Emergency Use Authorization (EUA) and has been verified by [facility] ([facility]). This test is only authorized for the duration of time that circumstances exist to justify the authorization of the emergency use of in vitro diagnostic tests for the detection of SARS-CoV-2 virus and/or diagnosis of COVID-19 infection under section 564(b)(1) of the Act, 21 U.S.C. 360bbb-3(b)(1), unless the authorization is terminated or revoked sooner. [facility] is certified under CLIA-88 as qualified to perform high complexity testing. Testing is performed in the [facility] laboratories located at [address] [place] [address]. Performed By: #### C OVSC #### [address] [place] [address] Covid 19 Resultson 2 SARS-CoV-2 (COVID-19) RNA JOHNNY+probe Ql (Unsp spec) NEGATIVE COVID-19 Test Coronaviruses are common world-wide and are the cause of many common colds. SARS-COV2 is a new coronavirus that began circulating worldwide in 2019 so we are calling it COVID-19. It has been estimated that four out of five patients with COVID-19 will recover at home without the need for medical attention. Symptoms of COVID-19 may include cough, fever, shortness of breath, loss of taste or smell and other flu-like symptoms including chills, sore muscles, sore throat, and headache. Severe illness is more common in older people and people with other health problems such as high blood pressure, obesity, and immune system problems. If the test is positive, you have COVID-19. You will be contacted by the ordering physicians office and instructed to remain on home isolation, in accordance with CDC guidelines. You may also be contacted by the [facility] to see if any of your close contacts may have been exposed to the virus and need to quarantine. If the test is negative, you likely do not have COVID-19 at this time, but you still may have a different illness that can spread to other people (like Influenza, or the Flu) and could still be at risk for getting COVID-19. We recommend that you stay away from other people to limit the spread of illness until your symptoms are improving and you are fever-free for 24 hours without the use of fever lowering medications such as acetaminophen or ibuprofen. No test is 100% accurate so if you are still concerned you may have COVID-19, talk to your doctor about the need to continue to stay away from others. Medicines Unless your provider told you not to use the following: Acetaminophen (Tylenol and others) is generally safe. Anti-inflammatory medications, such as Ibuprofen (Advil or Motrin) or Naproxen (Aleve) can also be used. Sozq-fwd-ahgamxs cough and cold medicines can be used according to the instructions on the package. Some skjm-tam-tvrhzez medicines also contain acetaminophen. Make sure you are not taking more than your recommended dose. For those not hospitalized, there is no specific treatment available for this illness. Antibiotics do not treat Coronaviruses. Follow-Up Follow up with your doctor by scheduling a virtual visit or consider follow-up at one of our urgent care fever clinics. If you are having difficulty breathing, or are very weak and having difficulty standing, this is a medical emergency. Call 911 or have someone take you to the nearest emergency room immediately. If possible, wear a facemask. Additional guidance from the CDC for patients who tested POSITIVE for COVID-19 How to isolate: Isolate yourself in a specific room at home and limit your contact with others. Use a separate bathroom from other members of the household, when possible. Leave home only to get essential medical care. Do not go to work, school or public areas. Avoid using public transportation, ride-sharing, or taxis. Restrict contact with pets and other animals. If you must care for your pet or be around animals while you are sick, wash your hands before and after your interaction and wear a facemask. Make sure that shared spaces in the home have good airflow, such as by an air conditioner or an opened window, weather permitting. Personal Hygiene Procedures: Wear a face mask when in the same room as other people or pets. If a face mask interferes with your breathing, others should wear a mask when sharing space with you. Frequent hand-washing: wash your hands with soap and water for at least 20 seconds. If soap and water are not available, use alcohol-based hand train examiner. Avoid touching your eyes, nose, and mouth with unwashed hands. Household Hygiene Procedures: Avoid sharing personal household items such as dishes, glassware, cups, eating utensils, towels or bedding with other people or pets in your home. After use, these items should be washed with soap and hot water. Disinfect all high-touch surfaces every day with antibacterial cleaning solutions such as Lysol wipes, bleach, cleansers, etc. High-touch surfaces include tabletops, doorknobs, bathroom fixtures, toilets, phones, keyboards, tablets and bedside tables. Immediately clean any surfaces that may have blood, poop or body fluids on them, using antibacterial cleaning solutions such as Lysol wipes, bleach, cleansers, etc. If clothing or bedding come into contact with blood, poop or body fluids, they should be washed immediately. Follow the directions on the laundry detergent and clothing labels but hot water is recommended when possible. Stopping home isolation precautions: If possible, consult your doctor before stopping home isolation precautions. According to the CDC, you can discontinue home isolation precautions when you have met both of these criteria: Your fever and respiratory symptoms have been gone for 24 anirudh (more content not included)... Normal [facility] CORONAVIRUS 2019, SCREEN ASY MPTOMATICon 04-23-2022 Lab Specimen Source Nasal, Nasopharyngeal Normal [facility] Comment on above: Performed By: #### C OVSC #### [facility] [address] [place] [address] Coronavirus 2019 RNA by PCR, Screening Asymptomticon 04-23-2022 Coronavirus 2019 RNA by PCR, Screening Asymptomtic Not detected Normal See Below [facility] [place] Work Phone: Comment on above: SOURCE: Nasal, Nasop haryngealReference Range: Not Detected.This assay is designed to detect the N, ORF1ab and/or S genes of SARS-CoV-2 via nucleic acid amplification. A Negative (NOT DETECTED) result does not preclude 2019-nCoV infection since the adequacy of sample collection and/or low viral burden may result in presence of viral nucleic acids below the clinical sensitivity of this test method. Negative (NOT DETECTED) result should not be used as the sole basis for treatment or other patient management decisions. Rather negative results should be combined with clinical observations, patient history, and epidemiological information to make patient management decisions.Fact sheet for providers: https://www.fda.gov/media/129957/downloadFact sheet for patients: https://www.fda.gov/media/711220/downloadThis test has received FDA Emergency Use Authorization (EUA) and has been verified by [facility] ([facility]). This test is only authorized for the duration of time that circumstances exist to justify the authorization of the emergency use of in vitro diagnostic tests for the detection of SARS-CoV-2 virus and/or diagnosis of COVID-19 infection under section 564(b)(1) of the Act, 21 U.S.C. 360bbb-3(b)(1), unless the authorization is terminated or revoked sooner. [facility] is certified under CLIA-88 as qualified to perform high complexity testing. Testing is performed in the [facility] laboratories located at [address] [place] [address]. Patient Profile - Preop v3on 04-22-2022 Patient Profile - Preop v3 Patient Profile - Preop: Initial Info: Patient DemographicsName: BILL ESTRADA Date: 1960 Address: [address] [place], [id number] Primary Phone [phone] Call Attemptedattempt 1 Instructions Givenappropriate clothing, bring responsible adult as the driver trainee (procedure may be cancelled if no driver trainee), center location, insurance information Prep Instructions Reviewedyes Instructed to Have No Fluids Aftermidnight How to be Addressedscott Spoken Language PreferredEnglish Source of Informationpatient Stated Reason for AdmissionL ESWL Primary Contact Name and [id number] Ronel Medications Brought to Hospitalno General Health: Weight in kg92.4 kilogram(s) Weight in efy913.7 pound(s) Weight Methodactual (measured) Scale Typestanding Height in feet5 feet Height in inches1.97 inch(es) Height in cm157.4 centimeter(s) Height Methodstated BMI (kg/m2)37.296 square meter Patient or Family Member Reaction to Anesthesiano previous reaction; no previous family member reaction Blood Avoidance/Restrictionsnone Previous Transfusion Reactionnot applicable Health Mgmt: Symptoms/Conditions Managed at Homerespiratory; gastrointestinal; peripheral/neurovascular Gastrointestinal Symptoms/Conditionsreflux/h eartburn Peripheral Neurovascular Symptoms/ConditionsRLS Respiratory Symptoms/Conditionssleep disordered breathing Respiratory Management StrategiesCPAP Barriers to Managing Healthnone Relationship/Environ: Lives Withspouse Living Arrangementshouse Resource/Environmental Concernsnone [place]ticipated [place] Anticipated at Transitionnone Tobacco Use: Tobacco Useyes Tobacco Typecigarettes Last Tobacco [id number] Number of Packs per Day1 Number of yrs50 Pack yrs50 Pre-op Checklist: Arrival [id number] Arrival Time11:43 Procedure TypeL ESWL NPOyes Last Food [id number] 00:01 Last Clear Fluid [id number] 00:01 ID Band On Patientpatient ID (name), allergy Consent Signedyes H&P Completeyes Anesthesia Assessment Completedyes EKG Performednot ordered Chest X-Ray Performednot ordered Preop Antibioticsstarted in preop Type and Screen Resultedn/a Chlorhexadine Bath Givennot applicable Nasal Antiseptic Appliednot applicable Hair Washed with Shampooyes Bowel Prepno Surgical Site Infection Preventionyes Pain Scales and Managementyes Additional Information: Information Review: Allergies, Home Meds and Significant Events have been Reviewed and Verified with Patient/Familyyes Allergy, Intolerance, Adverse Event: Allergies: morphine: Drug, Psychosis, Active Problem List: Medical History: COPD (chronic obstructive pulmonary disease): Catalog Name: Chronic obstructive pulmonary disease, unspecified Arthritis: Catalog Name: Unspecified osteoarthritis, unspecified site MAGGI on CPAP: Catalog Name: Obstructive sleep apnea (adult) (pediatric) GERD (gastroesophageal reflux disease): Catalog Name: Gastro-esophageal reflux disease without esophagitis RLS (restless legs syndrome): Catalog Name: Restless legs syndrome Surg History: H/O cervical spine surgery: Catalog Name: Other specified postprocedural states, Description: plate, states full ROM History of hernia repair: Catalog Name: Other specified postprocedural states History of laparoscopic cholecystectomy: Catalog Name: Acquired absence of other specified parts of digestive tract Pacemaker: Catalog Name: Presence of cardiac pacemaker Electronic Signatures: Joanne Cruz) (Signed 25-Apr-2022 11:59) Authored: Initial Info, General Health, Health Mgmt, Relationship/Environ, Tobacco Use, Pre-op Checklist, Additional Information Irasema Mcmahon (RN) (Signed 22-Apr-2022 11:21) Authored: Initial Info, General Health, Tobacco Use, Additional Information Last Updated: 25-Apr-2022 11:59 by Joanne Cruz (ELIU) [facility] CORONAVIRUS 2019, SCREEN ASY MPTOMATICon 04-10-2022 SARS-CoV-2 (COVID-19) RNA JOHNNY+probe Ql (Unsp spec) Not detected Normal Not Detected [facility] Comment on above: Result Comment: . This test has received FDA Emergency Use Authorization (EUA) and has been verified by [facility] ([facility]). This test is only authorized for the duration of time that circumstances exist to justify the authorization of the emergency use of in vitro diagnostic tests for the detection of SARS-CoV-2 virus and/or diagnosis of COVID-19 infection under section 564(b)(1) of the Act, 21 U.S.C. 360bbb-3(b)(1), unless the authorization is terminated or revoked sooner. [facility] is certified under CLIA-88 as qualified to perform high complexity testing. Testing is performed in the [facility] located at [address] [place] [address]. SARS-CoV-2/Flu/RSV Multiplex Test: Fact sheet for providers: https://www.fda.gov/media/652713/download Fact sheet for patients: https://www.fda.gov/media/273302/download Performed By: #### C OVSC #### [address] [place] [address] Covid 19 Resultson SARS-CoV-2 (COVID-19) RNA JOHNNY+probe Ql (Unsp spec) NEGATIVE COVID-19 Test Coronaviruses are common world-wide and are the cause of many common colds. SARS-COV2 is a new coronavirus that began circulating worldwide in 2019 so we are calling it COVID-19. It has been estimated that four out of five patients with COVID-19 will recover at home without the need for medical attention. Symptoms of COVID-19 may include cough, fever, shortness of breath, loss of taste or smell and other flu-like symptoms including chills, sore muscles, sore throat, and headache. Severe illness is more common in older people and people with other health problems such as high blood pressure, obesity, and immune system problems. If the test is positive, you have COVID-19. You will be contacted by the ordering physicians office and instructed to remain on home isolation, in accordance with CDC guidelines. You may also be contacted by the [facility] to see if any of your close contacts may have been exposed to the virus and need to quarantine. If the test is negative, you likely do not have COVID-19 at this time, but you still may have a different illness that can spread to other people (like Influenza, or the Flu) and could still be at risk for getting COVID-19. We recommend that you stay away from other people to limit the spread of illness until your symptoms are improving and you are fever-free for 24 hours without the use of fever lowering medications such as acetaminophen or ibuprofen. No test is 100% accurate so if you are still concerned you may have COVID-19, talk to your doctor about the need to continue to stay away from others. Medicines Unless your provider told you not to use the following: Acetaminophen (Tylenol and others) is generally safe. Anti-inflammatory medications, such as Ibuprofen (Advil or Motrin) or Naproxen (Aleve) can also be used. Kork-ruq-bfvrpzt cough and cold medicines can be used according to the instructions on the package. Some mjow-dkz-dksddsp medicines also contain acetaminophen. Make sure you are not taking more than your recommended dose. For those not hospitalized, there is no specific treatment available for this illness. Antibiotics do not treat Coronaviruses. Follow-Up Follow up with your doctor by scheduling a virtual visit or consider follow-up at one of our urgent care fever clinics. If you are having difficulty breathing, or are very weak and having difficulty standing, this is a medical emergency. Call 911 or have someone take you to the nearest emergency room immediately. If possible, wear a facemask. Additional guidance from the CDC for patients who tested POSITIVE for COVID-19 How to isolate: Isolate yourself in a specific room at home and limit your contact with others. Use a separate bathroom from other members of the household, when possible. Leave home only to get essential medical care. Do not go to work, school or public areas. Avoid using public transportation, ride-sharing, or taxis. Restrict contact with pets and other animals. If you must care for your pet or be around animals while you are sick, wash your hands before and after your interaction and wear a facemask. Make sure that shared spaces in the home have good airflow, such as by an air conditioner or an opened window, weather permitting. Personal Hygiene Procedures: Wear a face mask when in the same room as other people or pets. If a face mask interferes with your breathing, others should wear a mask when sharing space with you. Frequent hand-washing: wash your hands with soap and water for at least 20 seconds. If soap and water are not available, use alcohol-based hand train examiner. Avoid touching your eyes, nose, and mouth with unwashed hands. Household Hygiene Procedures: Avoid sharing personal household items such as dishes, glassware, cups, eating utensils, towels or bedding with other people or pets in your home. After use, these items should be washed with soap and hot water. Disinfect all high-touch surfaces every day with antibacterial cleaning solutions such as Lysol wipes, bleach, cleansers, etc. High-touch surfaces include tabletops, doorknobs, bathroom fixtures, toilets, phones, keyboards, tablets and bedside tables. Immediately clean any surfaces that may have blood, poop or body fluids on them, using antibacterial cleaning solutions such as Lysol wipes, bleach, cleansers, etc. If clothing or bedding come into contact with blood, poop or body fluids, they should be washed immediately. Follow the directions on the laundry detergent and clothing labels but hot water is recommended when possible. Stopping home isolation precautions: If possible, consult your doctor before stopping home isolation precautions. According to the CDC, you can discontinue home isolation precautions when you have met both of these criteria: Your fever and respiratory symptoms have been gone for 24 anirudh (more content not included)... Normal [facility] CORONAVIRUS 2019, SCREEN ASY MPTOMATICon 04-09-2022 Lab Specimen Source Nasal, Nasopharyngeal Normal [facility] Comment on above: Performed By: #### C OVSC #### [facility] [id number] [place] [id number] Coronavirus 2019 RNA by PCR, Screening Asymptomticon 04-09-2022 Coronavirus 2019 RNA by PCR, Screening Asymptomtic Not detected Normal See Below [facility] [place] Work Phone: Comment on above: SOURCE: Nasal, Nasop haryngealReference Range: Not Detected.This test has received FDA Emergency Use Authorization (EUA) and has been verified by [facility] ([facility]). This test is only authorized for the duration of time that circumstances exist to justify the authorization of the emergency use of in vitro diagnostic tests for the detection of SARS-CoV-2 virus and/or diagnosis of COVID-19 infection under section 564(b)(1) of the Act, 21 U.S.C. 360bbb-3(b)(1), unless the authorization is terminated or revoked sooner. [facility] is certified under CLIA-88 as qualified to perform high complexity testing. Testing is performed in the [facility] located at [address] [place] [address].SARS-CoV-2/Flu/RSV Multiplex Test: Fact sheet for providers: https://www.fda.gov/media/325516/downloadFact sheet for patients: https://www.fda.gov/media/055148/download Office Visit (Urology)on Follow-up visit Diagnoses/Problems Assessed Acid reflux (530.81) (K21.9) Restless leg syndrome (333.94) (G25.81) Caffeine use (V49.89) (Z78.9) Current every day smoker (305.1) (F17.200) Living will on file (V49.89) (Z87.898) Denies alcohol consumption (V49.89) (Z78.9) Left ureteral stone (592.1) (N20.1) Orders Left ureteral stone Start: Urogesic-Blue 81.6 MG Oral Tablet; Take 1 tablet twice daily Rx By: Aracely Cole; Dispense: 30 Days ; #:60 Tablet; Refill: 0;For: Left ureteral stone; SANTIAGO = N; Verified Transmission to [facility]; Last Updated By: Natty Olvera; 04/07/2022 1:52:36 PM SocHx: Current every day smoker Tobacco Use Screening; Status:Complete; Done: 07Apr2022 Perform:Not Applicable;Ordered; For:SocHx: Current every day smoker; Ordered By:Sarah Schaeffer; Patient Discussion/Summary Left kidney stone adjacent to stent 61-year-old very pleasant gentleman status post ureteroscopy retrograde pyelogram and double-J stent insertion presenting with KUB showing above. We had a very long and extensive discussion with the patient regarding the pathophysiology, differential diagnosis, risk factor, management, natural history, incidence and diagnostic work-up of the condition. I explained to him that it would not be safe to remove his stent today given the risk of obstructive uropathy by his kidney stone that is adjacent to the stent. We discussed option of management including ESWL. We discussed the risks, benefits, natural complication, adverse event. He verbalized understanding and would like to proceed. Plan schedule patient for left ESWL Chief Complaint Left Ureteral Stones History of Present IllnessI saw this patient in the ED because of severe left flank pain, 9/10, constant, was present for couple of days prior to presentation, no fever no chills, no nausea no vomiting, no constipation. CT scan done outside revealed a proximal left ureteral stone. Patient is follow up for Left Ureteral Stone. Patient is S/P Cysto Left RPG Left Ureteroscopy with Holmium laser and Left Stent placement. Prior to stone Nocturia times 1. No Hematuria or Dysuria prior to procedure. Patient is on no medications for the prostate. Follow-up KUB done on April 03, 2022 revealed left renal stone fragment adjacent to his left ureteral stent. we had a very long and extensive discussion with the patient regarding his condition. I discussed with him the pathophysiology, differential diagnosis, risk factor, management of ureteral stones.. I gave the patient 3 options of management including observation. We also discussed ESWL which would be appropriate for the size of the location of stone. We discussed at length a left ureteroscopy, laser stone fragmentation, left retrograde pyelogram, left double-J stent insertion. We discussed in detail the risk, benefit, potential complication, adverse events including hematuria, pneumaturia, pain, stent discomfort and pain, fever, chills, infection, urosepsis, I explained to him that most likely he needs a second procedure at the first wound will be probably only a stent placement. Review of Systems All systems were reviewed. Anything negative was noted in the HPI Active Problems Problems Left ureteral stone (592.1) (N20.1) Family History Mother Family history of malignant neoplasm of colon (V16.0) (Z80.0) Daughter Family history of malignant neoplasm of breast (V16.3) (Z80.3) Sister Family history of malignant neoplasm of breast (V16.3) (Z80.3) Social History Problems Caffeine use (V49.89) (Z78.9) Current every day smoker (305.1) (F17.200) Denies alcohol consumption (V49.89) (Z78.9) Living will on file (V49.89) (Z87.898) Allergies Medication Morphine Derivatives Confusion; Recorded By: Sarah Schaeffer; 04/07/2022 1:34:37 PM Physical Exam General: Well developed, well nourished, alert and cooperative, appears in no acute distress Eyes: Non-injected conjunctiva, sclera clear, no proptosis Cardiac: Extremities are warm and well perfused. No edema, cyanosis or pallor. Lungs: Breathing is easy, non-labored. Speaking in clear and complete sentences. Normal diaphragmatic movement. MSK: Ambulatory with steady gait, unassisted Neuro: alert and oriented to person, place and time Psych: Demonstrates good judgement and reason, without hallucinations, abnormal affect or abnormal behaviors. Skin: no obvious lesions, no rashes. No CVA tenderness bilaterally No suprapubic pain or discomfort Signatures Electronically signed by : Aracely Maradiaga MD MPH; Apr 07 2022 1:59PM EST (Author) Normal [facility] ABDOMEN AP VIEWon 04-03-2022 ABDOMEN AP VIEW Patient Name: BILL ESTRADA STUDY: ABDOMEN AP VIEW INDICATION: left urteral stone N20.1: Left ureteral stone COMPARISON: None ACCESSION NUMBER(S): [id number] ORDERING CLINICIAN: ARACELY RHOADES FINDINGS: Left-sided double-J ureteral stent in appropriate anatomic position. Calcific densities are visualized in the upper pole of the left kidney measuring up to 2 mm and in the interpolar region of the left kidney measuring up to 5 mm surrounding the course of the proximal stent. These likely represent nephroliths. No radiopaque densities projecting over the expected shadows of the right kidney or expected courses of the bilateral ureters. Advanced lumbar spine degenerative changes noted with levoscoliosis. Bowel gas pattern is nonspecific and nonobstructive. IMPRESSION: Please see findings Electronically signed by: DAWOOD HALL MD Normal [facility] Radiologyon 04-03-2022 XR Abdomen AP Normal [facility] [place] Work Phone: Admission Risk Screen - Adul ton 03-28-2022 Admission Risk Screen - Adult Allergies: Allergies: morphine: Psychosis Patient Verification: New W ID Band Applied in my Departmentyes Patient Identity Verified Bypatient ID Band FULL Name, include Middle, spelling matches patient's ID used for verificationyes ID Band Matches Patient ID used for Verficationyes ID Band MRN Matches EMR MRNyes Visitor Restriction: Coronavirus Visitor Restriction: Reasonable restrictions to in-person visitors will be observed due to current coronavirus pandemic. Travel History: COVID-19 Screening Completedno exposure or symptoms Travel or Exposure Past 30 DaysNO travel to International locations in the past 30 days Ebola AlertFor Ebola-like Symptoms: Isolate Patient and Notify Provider/Motorboat Mechanic Inboard For Contact: Notify Provider/Motorboat Mechanic Inboard Advance Directive: Advance Directive/DNRyes Advance Directive typeLiving Will, Durable Power of Glass Cleaner for Healthcare Living Will AvailabilityLiving Will not available now Living Will [id number] Durable Power of Glass Cleaner AvailabilityDPOA not available now Durable Power of Glass Cleaner [id number] Durable Power of Glass Cleaner contact (name and number)Ronel Estrada [phone] Alysha Fall Screen: History of falling (immediate or previous)no (0) Secondary Diagnosisno (0) Intravenous Therapy/ Heparin/Saline Lockyes (20) Gait/Transferringnormal/bed rest/wheelchair (0) Ambulatory Aidsnone/bedrest/nurse assist (0) Mental Statusoriented to own ability (0) Score: Low risk (<25). Moderate risk (25-44). High risk (>44).20 Encarnacion InterventionsLOW INTERVENTIONS: *patient oriented to surroundings and call system, * patient/family falls education completed and documented, *patients fall status communicated during bedside handoff, *whiteboard updated, *mode of toileting discussed with patient, *bed in low position with brakes locked, *call light in reach, * non-skid footwear Family Violence Screen: Are you or have you been threatened or abused physically, emotionally, or sexually by anyoneno Has anyone ever threatened to hurt your family or your petsno Does anyone try to keep you from having/contacting other friends or doing things outside your homeno Do you feel UNSAFE going back to the place where you are livingno Do you feel anyone has exploited or taken advantage of you financially or of your personal propertyno Clinical assessment: Are there any apparent signs of injuries/behaviors that could be related to abuse/neglectno Social Service Consult for abuse/neglect needed this visitno Functional Screen: Functional Screen: In the recent/past 2-4 weeks, patient or family have noticedno issues that require a speech/language consult at this time AM-PAC- Basic Mobility/Daily Activity: Patient baseline bedboundno Turning from your back to your side while in a flat bed without using bedrailsnone Moving from lying on your back to sitting on the side of a flat bed without using bedrailsnone Moving to and from bed to chair (including a wheelchair)none Standing up from a chair using your arms (e.g. wheelchair or bedside chair) none To walk in hospital roomnone Climbing 3-5 steps with railingnone Basic Mobility - Total Score24 Learning Assessment (Patient): Patient is Able to be Assessed for Learningyes Factors Influencing Readiness to Learnmotivation to learn Factors that Impact Ability to Learnnone Devices/Methods Used to Communicateglasses Learning Preferencesverbal instruction Cultural Considerationsnone Developmental Considerationsnone Adventism Considerationsnone Learning Assessment (Other Learner): Other learner availableno Depression Screen: During the past month, have you often been bothered by feeling down, depressed or hopelessno During the past month, have you often had little interest or pleasure in doing thingsno Have you had any thoughts of harming anyone elseno [place] Suicide: Risk Screen Not Applicable/Able to Answerable to be screened In the Past Month: Have you wished you were or could go to sleep and not wake upno In the Past Month: Have you had any actual thoughts of killing yourselfno Lifetime: Have you ever done, started to do, or prepared to do anything to end your lifeno [place] Suicide Risknegative Adult Nutrition Screen: Have you recently lost weight without tryingno Have you been eating poorly because of a decreased appetiteno Malnutrition Screening Tool Score0 Malnutrition Screening Tool RiskMST = 0 or 1 Not at risk. Eating well with little or no weight loss Nutrition Consult needed this visitno Can Patient Participate in Room Serviceyes Patient requires Paper Dishes/Plastic Utensilsno Pain Screen: Pain Scalenumerical 0-10 Pain Scale Educationteaching provided Current Pain Level4 = Moderate Acceptable Pain Level4 = Moderate Expression of Pain (nonverbal)none Chronic (more content not included)... [facility] Clinical Note - Pharmacy v2- Discharge Med Counselingon 03-28-2022 Clinical Note - Pharmacy v2-Discharge Med Counseling Clinical Note - Pharmacy v2: Discharge Meds: Document TopicDischarge Med Counseling Time [id number] minutes Prescription Hvac Estimator Medications Home Medications Review Status for Reconciliation: Incomplete Med Status: Incomplete Medication History Drug Name: ciprofloxacin 500 mg oral tablet Instructions: 1 tab(s) orally 2 times a day Drug Name: Pyridium 200 mg oral tablet Instructions: 1 tab(s) orally 3 times a day Meds Declined by Patient/Familycipro, phenazopyridine Reasonmeds already filled @ another retail pharmacy Medications Reviewedcipro, phenazopyridine Education TopicADR counseling; dosage, frequency, storage; medication indication; medication interactions; missed dose explanation; refills Learnerpatient; significant other Barriers to Learningnone Methodverbal Outcome Evaluation2=meets goals/outcomes Additional NotesDiscussed discharge medications with patient. Patient was given home medication summary and OpenCurriculum patient education handouts for Cipro and phenazopyridine. Reviewed when next doses of medications are due based on last doses given inpatient. Review of medications included therapy expectations, side effects and drug interactions. Confirmed pharmacy of choice for where new prescriptions are to be sent. Patient verbalized understanding of medications. Allergy: Allergies Summary Allergy Allergen: morphine Type: Drug Reaction: Psychosis Electronic Signatures: Vinnie Cox (PharmD) (Signed 28-Mar-2022 15:39) Authored: Discharge Meds, Allergy Last Updated: 28-Mar-2022 15:39 by Vinnie Cox (PharmD) [facility] Consult-Urologyon 03-28-2022 Consult-Urology Service: Service: Urology Consult: Consult requested by (Attending Name): Christiano Eisenberg Reason: Kidney Stone History of Present Illness: HPI: BILL ESTRADA is a 61 year old Male transferred from [facility] with kidney stone. Patient complains of left flank pain since Thursday, March 26, accompanied by nausea and vomiting. Patient denies dysuria, hematuria, urinary frequency, urinary retention. Patient denies shortness of breath, chest pain, fever, chills, diarrhea, and/or constipation. Patient reports having a history of kidney stones. Patient reports left flank pain goes around the side into his abdomen. Patient reports pain at a 7 on 10 scale. Patient denies all other associating symptoms. Past medical history Arthritis Back pain COPD-With CPAP at home GERD Diverticulitis PacemakerImplant Kidney stones Syncope Past surgical history H/O cervical spine surgery H/O inguinal hernia repair History of esophagogastroduodenoscopy (EGD) History of heart surgery Hx of cholecystectomy Hx of colonoscopy Social history Current every day smoker Alcohol intake occasional Denies substance abuse Patient was seen and examined. Patient reports left flank pain that goes around to the front by his abdomen at a 7 on 10 scale. Patient reports that the pain started on Thursday and has been terrible ever since. Patient denies fever, chills, dysuria, hematuria, urinary frequency or hesitancy, urinary retention, chest pain, shortness of breath, diarrhea, and/or constipation. Patient reports nausea and vomiting. Patient also reports having kidney stones in the past that he was able to pass easily on his own every time but once. Patient is agreeable to go to the OR with urologist Dr. Trino Maradiaga for cystoscopy, and possible left stent placement. Review Family/Social History and ROS: Social History: Smoking Status: moderate user (uses 11-30 cig/day, OR 0.5-1.5 ppd, OR 2-3 cans/pouches loose leaf tobacco per week, OR 0.5-1.5 vape pods per day) (1) Alcohol Use: denies(1) Drug Use: denies (1) Allergies: morphine: Psychosis Objective: Objective Information: T PRBPMAPSpO2 [id number]% Date/Time03/28 7: 7: 7: 7: 7:48 Range(36.8C - 36.8C ) (78 - 78 ) (17 - 17 ) (154 - 154 )/ (68 - 68 ) (94% - 94% ) Pain reported at 03/28 9:28: 7 = Severe Physical Exam by System: Constitutional: Awake/alert/oriented x3, no distress, alert and cooperative Eyes: EOMI, clear sclera ENMT: Mucous membranes moist, no apparent injury. Head/Neck: Normocephalic, atraumatic Respiratory/Thorax: Patent airways, nonlabored breathing, chest rise symmetrical. Room air. Gastrointestinal: Abdomen soft, nondistended, nontender. Genitourinary: Bladder nondistended, nontender. Left-sided flank tenderness on palpation. Musculoskeletal: ROM intact. Extremities: Moves all extremities easily Neurological: Alert and oriented x3 Lymphatic: No significant lymphadenopathy Psychological: Appropriate mood and behavior Skin: Warm and dry, no rashes noted. Medications: Medications: Continuous Medications ----- 1. Lactated Ringers Infusion: 1000 mL IntraVenous 2. Lactated Ringers Infusion: 1000 mL IntraVenous Scheduled Medications ----- 1. dexAMETHasone Injectable: 8 mg IntraVenous Push Once 2. Midazolam Injectable: 1 mg IntraVenous Push Once 3. Ondansetron Injectable: 4 mg IntraVenous Push Once PRN Medications ----- 1. HYDROmorphone Injectable: 0.5 mg IntraVenous Push Every 4 Hours 2. Morphine Injectable: 4 mg IntraVenous Push Every 5 Minutes 3. Naloxone Injectable: 0.2 mg IntraVenous Push Once 4. oxyCODONE 5 mg - Acetaminophen 325 m tablet(s) Oral Every 4 Hours Home Medications omeprazole 20 mg capsule,delayed release 20 mg PO DAILY 11/25/13 [History Last Taken 07/06/19 08:00] gabapentin 400 mg capsule 400 mg PO BIDCM 09/17/15 [History Last Taken Unknown] pramipexole 0.5 mg tablet 1 mg PO QHS 11/18/18 [History Last Taken Unknown] budesonide-formoterol HFA 160 mcg-4.5 mcg/actuation aerosol inhaler (Symbicort) 2 puff inhalation BID PRN Wheezing 07/04/20 [History Last Taken Unknown] L.acidophil,salivari-Bifido bifidum-Strep thermoph 175 mg capsule (Acidophilus Probiotic Blend) 1 cap PO DAILY #10 caps 03/27/21 [Rx Last Taken Unknown] cefadroxil 500 mg capsule 500 mg PO BID #10 caps 03/27/21 [Rx Last Taken Unknown] oxycodone-acetaminophen 5 mg-325 mg tablet (Percocet) 1 tab PO Q6H PRN pain (scale score 7-10) 5 days #20 tabs 03/27/21 [Rx Last Taken Unknown] ciprofloxacin HCl 500 mg tablet (Cipro) 500 mg PO BID 7 days #14 tabs 03/26/22 [Rx Last Taken Unknown] ondansetron 4 mg disintegrating tablet 4 mg PO Q8H PRN nausea and vomiting #7 tabs 03/26/22 [Rx Last Taken Unkno (more content not included)... [facility] Discharge [id number] Discharge Profile2 Discharge Orders: Anticipated Discharge Date: Anticipated Discharge [id number] Anticipated Discharge Time11:56 DNAR: Code Status at Discharge: Full Code Activity: activity as tolerated. May shower. May drive. Additional Orders: Additional Instructions Resume home meds after discharge as you wee on Provider FINAL REVIEW of Orders: Final Review: Final Review of Medication Reconciliation and Orders Completedby Physician Reviewing ProviderElgin Alvarado MD at 28-Mar-2022 12:00:50 Appointments: Follow-Up Appointment 01: [facility] Physician Reason for Referralpost hospital stay Call to Schedule in1 week Follow-Up Appointment 02: Physician/Dept/ServiceDr. Ramirez Urology Reason for Referralpost surgical visit Call to Schedule in2 weeks [id number] [place] [address] Phone [phone] Electronic Signatures: Ester Nazario (RN) (Signed 28-Mar-2022 15:22) Authored: Discharge Orders, Appointments Elgin Alvarado) (Signed 28-Mar-2022 12:00) Authored: Discharge Orders, Provider FINAL REVIEW of Orders, Appointments, Gold Form - Banking Consultant Summary Last Updated: 28-Mar-2022 15:22 by Ester Nazario (RN) [facility] No Panel Informationon 03-28 Please click on the link to view the study images Normal -Urology- [place] Work Phone: Order Reconciliationon 03-28 Order Reconciliation Page 1 Discharge Reconciliation Document Reconciliation Type: Discharge requested on behalf of Elgin Alvarado (Physician) done by Elgin Alvarado) Discharge - Reconciliation: 28-Mar-2022 11:58 by: Elgin Alvarado) Current OrdersDateHOME MEDICATIONS AT DISCHARGE DateReconciliation Comment/ Additional Information Ciprofloxacin 400 mg IVPB/ Premixed Soln 200 mL (CIPRO)Every 12 HoursRecommended Infusion Time: 60 minute(s) 28-Mar-2022 10:31 Ciprofloxacin 400 mg IVPB/ Premixed Soln 200 mL is not required dexAMETHasone Injectable (DECADRON)DOSE = 8 mg IntraVenous Push Once 28-Mar-2022 09:00 dexAMETHasone Injectable is not required HYDROmorphone Injectable (DILAUDID)DOSE = 0.5 mg IntraVenous Push Every 4 Hours, PRN Pain - Severe (7-10) 28-Mar-2022 08:39 HYDROmorphone Injectable is not required Lactated Ringers Infusion IV Bag Volume = 1,000 mL Run at: 100 mL/hr IntraVenous Clinician Notes: Estrella-operative order ONLY 28-Mar-2022 09:02 Lactated Ringers Infusion is not required Lactated Ringers Infusion IV Bag Volume = 1,000 mL Run at: 30 mL/hr IntraVenous 28-Mar-2022 09:00 Lactated Ringers Infusion is not required Midazolam Injectable (VERSED)DOSE = 1 mg IntraVenous Push Once 28-Mar-2022 09:00 Midazolam Injectable is not required Morphine Injectable DOSE = 4 mg IntraVenous Push Every 5 Minutes, PRN Pain - Severe (7-10) (PACU)Clinician Notes: Estrella-operative order ONLYMax total of 20 mg regardless of dose. 28-Mar-2022 09:02 Morphine Injectable is not required Naloxone Injectable (NARCAN)DOSE = 0.2 mg IntraVenous Push Once, PRN If patient RR below 10, obtunded or unarousableClinician Notes: DO NOT ADMINISTER UNTIL PHYSiCIAN HAS BEEN NOTIFIED AND ASSESSED PATIENT 28-Mar-2022 09:02 Naloxone Injectable is not required Ondansetron Injectable (ZOFRAN)DOSE = 4 mg IntraVenous Push Once 28-Mar-2022 09:00 Ondansetron Injectable is not required oxyCODONE 5 mg - Acetaminophen 325 mg Tablet (PERCOCET)DOSE = 1 tablet(s) Oral Every 4 Hours, PRN Pain - Mod (4-6) 28-Mar-2022 08:39 oxyCODONE 5 mg - Acetaminophen 325 mg is not required Home Medications Added During Discharge Reconciliation ciprofloxacin 500 mg oral tablet 1 tab(s) orally 2 times a day All Active Home Medications at time of Discharge Reconciliation: 28-Mar-2022 11:58 ciprofloxacin 500 mg oral tablet 1 tab(s) orally 2 times a day [facility] Order Reconciliation Page 1 Admission Reconciliation Document Reconciliation Type: Admission requested on behalf of Elgin Alvarado (Physician) done by Elgin Alvarado) Admission - Reconciliation: 28-Mar-2022 11:56 by: Elgin Alvarado () Documentation of outpatient medication history is incomplete. Additional Current Orders Ciprofloxacin 400 mg IVPB/ Premixed Soln 200 mL (CIPRO)Every 12 HoursRecommended Infusion Time: 60 minute(s) dexAMETHasone Injectable (DECADRON)DOSE = 8 mg IntraVenous Push Once HYDROmorphone Injectable (DILAUDID)DOSE = 0.5 mg IntraVenous Push Every 4 Hours, PRN Pain - Severe (7-10) Lactated Ringers Infusion IV Bag Volume = 1,000 mL Run at: 100 mL/hr IntraVenous Clinician Notes: Estrella-operative order ONLY Lactated Ringers Infusion IV Bag Volume = 1,000 mL Run at: 30 mL/hr IntraVenous Midazolam Injectable (VERSED)DOSE = 1 mg IntraVenous Push Once Morphine Injectable DOSE = 4 mg IntraVenous Push Every 5 Minutes, PRN Pain - Severe (7-10) (PACU)Clinician Notes: Estrella-operative order ONLYMax total of 20 mg regardless of dose. Naloxone Injectable (NARCAN)DOSE = 0.2 mg IntraVenous Push Once, PRN If patient RR below 10, obtunded or unarousableClinician Notes: DO NOT ADMINISTER UNTIL PHYSiCIAN HAS BEEN NOTIFIED AND ASSESSED PATIENT Ondansetron Injectable (ZOFRAN)DOSE = 4 mg IntraVenous Push Once oxyCODONE 5 mg - Acetaminophen 325 mg Tablet (PERCOCET)DOSE = 1 tablet(s) Oral Every 4 Hours, PRN Pain - Mod (4-6) Normal [facility] Patient Profile - Adult v2on 03-28-2022 Patient Profile - Adult v2 Profile: Initial Info: How to be AddressedScott Spoken Language PreferredEnglish Source of Informationpatient Stated Reason for Admissionadrina todd Primary Contact Name and NumberRonel Estrada [phone] Wants Family/Rep Notified of Admissionn/a; family present Notify PCPnotify PCP Informed of Patient Visiting Rightsyes Arrived Fromhospital Patient Belongingsremains with patient Patient Belongings Remaining with Patientcell phone/electronics; vision aids; clothing Medications Brought to Hospitalno General Health: Blood Avoidance/Restrictionsnone Previous Transfusion Reactionnot applicable Weight in kg92.3 kilogram(s) Weight in eoc766.4 pound(s) Weight Methodactual (measured) Scale Typebed Height in cm157.4 centimeter(s) Height in feet5 feet Height in inches2 inch(es) Height Methodstated BMI (kg/m2)37.255 square meter RSP Based Care: Recent Change in Mood/Behaviordenies How would you like to participate in your donny/a What is the number one concern for you during this hospitalizationn/a What is the most important thing we can do to support you during this hospitalizationn/a Is there anything we need to know to best care for eileen/a Substance: Smoking Statusmoderate user (uses 11-30 cig/day, OR 0.5-1.5 ppd, OR 2-3 cans/pouches loose leaf tobacco per week, OR 0.5-1.5 vape pods per day) Tobacco Cessation Education (provide if tobacco use within the last 12 mos) patient declined Alcohol Usedenies Drug Usedenies Health Mgmt: Symptoms/Conditions Managed at Homechronic pain; gastrointestinal; peripheral/neurovascular Gastrointestinal Symptoms/Conditionsreflux/h eartburn Gastrointestinal Management Strategiesmedication therapy Gastrointestinal Managementmanaged Chronic Pain Locationlower back Chronic Pain Aggravating Factorsactivity Chronic Pain Management Strategiesmedication therapy Chronic Pain Managementmanaged Chronic Pain Symptoms/Conditions Commentgabapentin and shots every 3 mos. Peripheral Neurovascular Management Strategiesmedication therapy Peripheral Neurovascular Managementmanaged Peripheral Neurovascular Symptoms/Conditions Commentrestless leg syndrome, Relationship/Environ: Resource/Environmental Concernsnone Primary Source of Support/Comfortspouse Lives Withspouse; adult child(marcia) Living Arrangementshouse Services Anticipated at Transitionnone Anticipated Transition Tohome Significant IndicatorsComplete Information Review: Allergies, Home Meds and Significant Events have been Reviewed and Verified with Patient/Familyyes ALLERGY, INTOLERANCE, ADVERSE EVENT: Allergies: morphine: Drug, Psychosis, Active Electronic Signatures: Faustina Mathur (ELIU) (Signed 28-Mar-2022 08:07) Authored: Initial Info, General Health, RSP Based Care, Substance, Health Mgmt, Relationship/Environ, Additional Information Last Updated: 28-Mar-2022 08:07 by Faustina Mathur (ELIU) [facility] Patient Profile - Preop v3on 03-28-2022 Patient Profile - Preop v3 This report has been cancelled. [facility] Preop Checkliston 03-28-2022 Preop Checklist Preop Checklist: Preop Checklist: Arrival [id number] Arrival Time12:41 Procedure TypeCysto L RPG L ureterosocpy ramez L stent placment Temperature C36.6 degrees C Temperature F97.8 degrees F Heart Rate75 beats per minute Respiratory Rate17 breath per minute Blood Pressure Efnkbxgh301 mm/Hg Blood Pressure Hbgjppcvv31 mm/Hg NPOyes Last Food [id number] 00:01 Last Clear Fluid [id number] 00:01 ID Band On Patientpatient ID (name), allergy Consent Signedyes H&P Completeyes Anesthesia Assessment Completedyes EKG Performednot ordered Chest X-Ray Performednot ordered Preop Antibioticsstarted in preop Type and Screen Resultedn/a HCG Urine TestN/A Chlorhexadine Bath Givennot applicable Nasal Antiseptic Appliednot applicable Soap and Water Bath the Night Before Surgerynot applicable Hair Washed with Shampoonot applicable Hat placed on infant prior to transportnot applicable SCD's Appliedyes KEN[place]ET[place] Hose Appliednot ordered Denturesnot applicable Prostheticsnot applicable Hearing Aidsnot applicable Valuables Securednot applicable Glasses / Contactssent to pacu Bowel Prepno Cardiovascular Assessment: Apicalregular Extremitieswarm Respiratory Assessment: Respirationsunlabored Air Exchangeequal Neurological Assessment: Level of Consciousnessalert Mobilitymoves all extremities Able to Express Selfyes Age Appropriateyes Emotional Statuscalm Skin Assessment: Skin Site(s) with Current Compromisenone Preop Education: Surgical Site Infection Preventionyes Pain Scales and Managementyes Language / Communication: Language / CommunicationEnglish Electronic Signatures: Joanne Cruz (ELIU) (Signed 28-Mar-2022 12:49) Authored: Preop Checklist Last Updated: 28-Mar-2022 12:49 by Joanne Cruz (ELIU) [facility] Absolute lymphocyte counton 03-27-2022 Lymphocytes Auto (Unsp spec) [#/Vol] 1.58 10*3/uL 0.83-4.51 [facility] Work Phone: Amorphous sediment detection in urine sediment by light microscopyon 03-27-2022 Amorphous sediment LM Ql (Urine sed) 1+ [facility] Work Phone: Basophil percentageon 2021 Basophil percentage 0-5 SEEN /hpf 0-5 [facility] Work Phone: Basophils/100 WBC (Bld) 0.1 % 0-1 [facility] Work Phone: Chloride [Moles/Vol] 106 mmol/L 98-107 [facility]: Eosinophils/100 WBC (Bld) 0.7 % 0-5 [facility] Work Phone: Glucose [Mass/Vol] 113 mg/dL 74-106 [facility] Work Phone: Comment on above: Fasting Glucose resu lt from 100 to 125 mg/dL suggests IMPAIRED HOMEOSTASIS per A.D.A. criteria. Neutrophils (Bld) [#/Vol] 10.5 10*3/uL 2.0-7.7 [facility] Work Phone: [phone] Neutrophils/100 WBC (Bld) 77.3 % 47-70 [facility] Work Phone: Potassium [Moles/Vol] 4.0 mmol/L 3.5-5.1 George [facility] Work Phone: Sodium [Moles/Vol] 141 mmol/L 136-[facility] Work Phone: WBC (Bld) [#/Vol] 13.6 10*3/uL 4.4-11.0 [facility] Work Phone: Bilirubin Test strip Ql (U)o n 03-27-2022 Bilirubin Ql (U) Negative Negative [facility] Work Phone: [phone] Blood erythrocytes count (nu mber/volume)on 03-27-2022 RBC (Bld) [#/Vol] 4.81 10*6/uL 4.6-6.2 [facility] Work Phone: Blood hemoglobin measurement (mass/volume)on 03-27-2022 Hemoglobin (Bld) [Mass/Vol] 14.7 g/dL 13.0-16.5 [facility] Work Phone: Blood lymphocytes/100 leukoc yteson 03-27-2022 Lymphocytes/100 WBC (Bld) 11.6 % 19-41 [facility] Work Phone: Blood monocytes/100 leukocyt eson 03-27-2022 Monocytes/100 WBC (Bld) 9.9 % 0-10 [facility] Work Phone: Blood platelet mean volumeon 03-27-2022 Platelet mean volume (Bld) [Entitic vol] 9.1 fL 6.2-12.0 [facility] Work Phone: Determination of erythrocyte mean corpuscular volume (MCV)on 03-27-2022 MCV (RBC) [Entitic vol] 92.1 fL 80-94 [facility] Work Phone: Hematocrit Auto (Bld) [Volum e fraction]on 03-27-2022 Hematocrit (Bld) [Volume fraction] 44.3 % 40-54 [facility] Work Phone: Hyaline casts LM.LPF (Urine sed) [#/Area]on 03-27-2022 Hyaline casts (Urine sed) [#/Area] 0 /[LPF] 0-5 [facility] Work Phone: Ketones Test strip Ql (U)on 03-27-2022 Ketones Ql (U) Negative Negative [facility] Work Phone: Laboratory - Chemistry and C hemistry - challengeon 03-27-2022 CO2 [Moles/Vol] 28.0 mmol/L 21.0-32.0 [facility] Work Phone: Urea nitrogen/Creatinine [Mass ratio] 12.3 mg/mg 10-20 [facility] Work Phone: Laboratory - Hematology and Cell countson 03-27-2022 Erythrocyte distribution width (RBC) [Entitic vol] 48.5 fL 35.1-43.9 [facility] Work Phone: Erythrocyte distribution width (RBC) [Ratio] 14.3 % 11.6-14.6 [facility] Work Phone: Immature granulocytes/100 WBC (Bld) 0.400 % 0.0-0.9 [facility] Work Phone: Comment on above: IG% - Immature Granu locytes (promyelocytes, myelocytes and metamyelocytes) > 1% indicates that a LEFT SHIFT is Present. MCH (RBC) [Entitic mass] 30.6 pg 27.0-32.0 [facility] Work Phone: Nucleated RBC/100 WBC (Bld) [Ratio] 0 % 0-5 [facility] Work Phone: MCHC Auto (RBC) [Mass/Vol]on 03-27-2022 MCHC (RBC) [Mass/Vol] 33.2 g/dL 32-36 [facility] Work Phone: Mucus LM Ql (Urine sed)on Mucus Ql (Urine sed) 2+ /hpf os [facility] Work Phone: Nitrite Test strip Ql (U)on 03-27-2022 Nitrite Ql (U) Negative Negative [facility] Work Phone: No Panel Informationon 03-27 Estimated Creatinine Clearance Calc 43.41 ml/min [facility] Work Phone: Estimated GFR (MDRD) Amer 67 mL/min >60 [facility] Work Phone: Comment on above: GFR Calc Estimated GFR (MDRD) Non-Af Amer 56 mL/min >60 [facility] Work Phone: Comment on above: Non- GFR Calc Platelets bldon 03-27-2022 Platelets (Bld) [#/Vol] 199 10*3/uL 150-450 [facility] Work Phone: Protein Test strip Ql (U)on 03-27-2022 Protein Ql (U) 30 mg/dl Negative [facility] Work Phone: Serum or plasma calcium devin urement (mass/volume)on 03-27-2022 Calcium [Mass/Vol] 9.6 mg/dL 8.5-10.1 oste r [facility] Work Phone: Serum or plasma creatinine m easurement (mass/volume)on 03-27-2022 Creatinine [Mass/Vol] 1.38 mg/dL 0.70-1.30 [facility] Work Phone: Comment on above: The validity of the calculated GFR & GFRAA in patients over 70 years has not been determined. Clinical correlation is essential. Serum or plasma urea nitroge n measurement (mass/volume)on 03-27-2022 Urea nitrogen [Mass/Vol] 17 mg/dL 7-18 [facility] Work Phone: Squamous epithelial cells de tection in urine sediment by light microscopyon 03-27-2022 Epithelial cells.squamous LM Ql (Urine sed) 0-5 SEEN /hpf 0-5 [facility] Work Phone: Thin prep Papanicolaou smear with manual screeningon 03-27-2022 Thin prep Papanicolaou smear with manual screening 7 5-15 [facility] Work Phone: Urine blood detectionon 0 RBC Ql (U) 250 /ul Negative [facility] Work Phone: RBC Ql (U) 10-25 SEEN /hpf 0-5 [facility] Work Phone: Urine clarityon 03-27-2022 Clarity (U) Clear Clear [facility] Work Phone: Urine color determinationon 03-27-2022 Color (U) Yellow Yellow [facility] Work Phone: Urine glucose detectionon Glucose Ql (U) Normal mg/dl Normal [facility] Work Phone: Urine leukocyte esterase det ection by dipstickon 03-27-2022 Leukocyte esterase Test strip Ql (U) 25 /ul Negative [facility] Work Phone: Urine pHon 03-27-2022 pH (U) 5.0 [pH] 5.0 - 8.0 [facility] Work Phone: Urine sediment bacteria coun t by microscopy (number/high power field)on 03-27-2022 Bacteria LM.HPF (Urine sed) [#/Area] 1 /[HPF] None Seen [facility] Work Phone: Urine sediment yeast count b y microscopy (number/high powered field)on 03-27-2022 Yeast LM.HPF (Urine sed) [#/Area] RARE /hpf None Seen [facility] Work Phone: Urine specific gravity measu rementon 03-27-2022 Specific gravity (U) [Rel density] 1.030 1.002-1.03 0 [facility] Work Phone: Urobilinogen Auto test strip Ql (U)on 03-27-2022 Urobilinogen Ql (U) Normal mg/dl Normal [facility] Work Phone: Basophil percentageon 2021 Basophil percentage 5-10 SEEN /hpf 0-5 [facility] Work Phone: Chloride [Moles/Vol] 105 mmol/L 98-107 [facility] Work Phone: Glucose [Mass/Vol] 115 mg/dL 74-106 [facility] Work Phone: Comment on above: Fasting Glucose resu lt from 100 to 125 mg/dL suggests IMPAIRED HOMEOSTASIS per A.D.A. criteria. Potassium [Moles/Vol] 4.2 mmol/L 3.5-5.1 [facility] Work Phone: Comment on above: Moderate Hemolysis, Result may be falsely increased. Sodium [Moles/Vol] 139 mmol/L 136-145 [facility] Work Phone: Bilirubin Test strip Ql (U)o n 03-26-2022 Bilirubin Ql (U) Negative Negative [facility] Work Phone: Ketones Test strip Ql (U)on 03-26-2022 Ketones Ql (U) 5 mg/dl Negative [facility] Work Phone: Laboratory - Chemistry and C hemistry - challengeon 03-26-2022 CO2 [Moles/Vol] 29.0 mmol/L 21.0-32.0 [facility] Work Phone: Urea nitrogen/Creatinine [Mass ratio] 14.0 mg/mg 10-20 [facility] Work Phone: Mucus LM Ql (Urine sed)on Mucus Ql (Urine sed) 2+ /hpf [facility] Work Phone: Nitrite Test strip Ql (U)on 03-26-2022 Nitrite Ql (U) Negative Negative [facility] Work Phone: No Panel Informationon 03-26 Estimated Creatinine Clearance Calc 55.99 ml/min [facility] Work Phone: Estimated GFR (MDRD) Amer 90 mL/min >60 [facility] Work Phone: Comment on above: GFR Calc Estimated GFR (MDRD) Non-Af Amer 75 mL/min >60 [facility] Work Phone: Comment on above: Non- GFR Calc Protein Test strip Ql (U)on 03-26-2022 Protein Ql (U) 30 mg/dl Negative [facility] Work Phone: Serum or plasma calcium devin urement (mass/volume)on 03-26-2022 Calcium [Mass/Vol] 10.1 mg/dL 8.5-10.1 [facility] Work Phone: Serum or plasma creatinine m easurement (mass/volume)on 03-26-2022 Creatinine [Mass/Vol] 1.07 mg/dL 0.70-1.30 [facility] Work Phone: Comment on above: The validity of the calculated GFR & GFRAA in patients over 70 years has not been determined. Clinical correlation is essential. Serum or plasma urea nitroge n measurement (mass/volume)on 03-26-2022 Urea nitrogen [Mass/Vol] 15 mg/dL 7-18 [facility] Work Phone: Squamous epithelial cells de tection in urine sediment by light microscopyon 03-26-2022 Epithelial cells.squamous LM Ql (Urine sed) 0-5 SEEN /hpf 0-5 [facility] Work Phone: Thin prep Papanicolaou smear with manual screeningon 03-26-2022 Thin prep Papanicolaou smear with manual screening 5 5-15 [facility] Work Phone: Urine blood detectionon RBC Ql (U) 250 /ul Negative [facility] Work Phone: RBC Ql (U) 50-100 SEEN /hpf 0-5 [facility] Work Phone: Urine clarityon 03-26-2022 Clarity (U) Sl. Cloudy Clear [facility] Work Phone: Urine color determinationon 03-26-2022 Color (U) Yellow Yellow [facility] Work Phone: Urine glucose detectionon Glucose Ql (U) Normal mg/dl Normal [facility] Work Phone: Urine leukocyte esterase det ection by dipstickon 03-26-2022 Leukocyte esterase Test strip Ql (U) 25 /ul Negative [facility] Work Phone: Urine pHon 03-26-2022 pH (U) 5.0 [pH] 5.0 - 8.0 [facility] Work Phone: Urine sediment bacteria coun t by microscopy (number/high power field)on 03-26-2022 Bacteria LM.HPF (Urine sed) [#/Area] 3 /[HPF] None Seen [facility] Work Phone: Urine sediment fine granular cast count by microscopy (number/low power field)on 03-26-2022 Fine Granular Casts LM.LPF (Urine sed) [#/Area] 5-10 SEEN /lpf 0-5 [facility] Work Phone: Urine sediment leukocyte aida t count by microscopy (number/low power field)on 03-26-2022 WBC casts LM.LPF (Urine sed) [#/Area] 0-5 SEEN /lpf None Seen [facility] Work Phone: Urine specific gravity measu rementon 03-26-2022 Specific gravity (U) [Rel density] 1.020 1.002-1.03 0 [facility] Work Phone: Urobilinogen Auto test strip Ql (U)on 03-26-2022 Urobilinogen Ql (U) Normal mg/dl Normal [facility] Work Phone: Absolute lymphocyte counton 03-12-2022 Lymphocytes Auto (Unsp spec) [#/Vol] 1.99 10*3/uL 0.83-4.51 [facility] Work Phone: Basophil percentageon 2021 Basophils/100 WBC (Bld) 0.1 % 0-1 [facility] Work Phone: Bilirubin [Mass/Vol] 0.80 mg/dL 0.20-1.00 [facility] Work Phone: Comment on above: For patients on eltr ombopag therapy, use of Dimension [place] TBIL is not recommended. Chloride [Moles/Vol] 107 mmol/L 98-107 [facility] Work Phone: [phone] Eosinophils/100 WBC (Bld) 0.6 % 0-5 [facility] Work Phone: Glucose [Mass/Vol] 89 mg/dL 74-106 [facility] Work Phone: Neutrophils (Bld) [#/Vol] 6.8 10*3/uL 2.0-7.7 [facility] Work Phone: Neutrophils/100 WBC (Bld) 70.1 % 47-70 [facility] Work Phone: [phone] Potassium [Moles/Vol] 4.0 mmol/L 3.5-5.1 [facility] Work Phone: Protein [Mass/Vol] 7.5 g/dL 6.4-8.2 [facility] Work Phone: Sodium [Moles/Vol] 140 mmol/L 136-145 [facility] Work Phone: [phone] WBC (Bld) [#/Vol] 9.7 10*3/uL 4.4-11.0 [facility] Work Phone: [phone] Blood erythrocytes count (nu mber/volume)on 03-12-2022 RBC (Bld) [#/Vol] 4.74 10*6/uL 4.6-6.2 [facility] Work Phone: [phone] Blood hemoglobin measurement (mass/volume)on 03-12-2022 Hemoglobin (Bld) [Mass/Vol] 14.4 g/dL 13.0-16.5 [facility] Work Phone: Blood lymphocytes/100 leukoc yteson 03-12-2022 Lymphocytes/100 WBC (Bld) 20.6 % 19-41 [facility] Work Phone: Blood monocytes/100 leukocyt eson 03-12-2022 Monocytes/100 WBC (Bld) 8.3 % 0-10 [facility] Work Phone: Blood platelet mean volumeon 03-12-2022 Platelet mean volume (Bld) [Entitic vol] 9.6 fL 6.2-12.0 [facility] Work Phone: Determination of erythrocyte mean corpuscular volume (MCV)on 03-12-2022 MCV (RBC) [Entitic vol] 93.5 fL 80-94 [facility] Work Phone: Hematocrit Auto (Bld) [Volum e fraction]on 03-12-2022 Hematocrit (Bld) [Volume fraction] 44.3 % 40-54 [facility] Work Phone: Laboratory - Chemistry and C hemistry - challengeon 03-12-2022 ALP [Catalytic activity/Vol] 130 U/L 45-117 [facility] Work Phone: ALT [Catalytic activity/Vol] 36 U/L 16-61 [facility] Work Phone: CO2 [Moles/Vol] 28.0 mmol/L 21.0-32.0 [facility] Work Phone: Globulin (S) [Mass/Vol] 3.5 g/dL 2.2-4.2 [facility] Work Phone: [phone] Urea nitrogen/Creatinine [Mass ratio] 14.5 mg/mg 10-20 [facility] Work Phone: Laboratory - Hematology and Cell countson 03-12-2022 Erythrocyte distribution width (RBC) [Entitic vol] 50.0 fL 35.1-43.9 [facility] Work Phone: Erythrocyte distribution width (RBC) [Ratio] 14.4 % 11.6-14.6 [facility] Work Phone: Immature granulocytes/100 WBC (Bld) 0.300 % 0.0-0.9 [facility] Work Phone: Comment on above: IG% - Immature Granu locytes (promyelocytes, myelocytes and metamyelocytes) > 1% indicates that a LEFT SHIFT is Present. MCH (RBC) [Entitic mass] 30.4 pg 27.0-32.0 [facility] Work Phone: Nucleated RBC/100 WBC (Bld) [Ratio] 0 % 0-5 [facility] Work Phone: MCHC Auto (RBC) [Mass/Vol]on 03-12-2022 MCHC (RBC) [Mass/Vol] 32.5 g/dL 32-36 [facility] Work Phone: No Panel Informationon 03-12 Estimated GFR (MDRD) Amer 101 mL/min >60 [facility] Work Phone: Comment on above: GFR Calc Estimated GFR (MDRD) Non-Af Amer 84 mL/min >60 [facility] Work Phone: Comment on above: Non- GFR Calc Thyroid Stimulating Hormone (TSH) 1.42 uIU/mL 0.358-3.74 [facility] Work Phone: Platelets bldon 03-12-2022 Platelets (Bld) [#/Vol] 229 10*3/uL 150-450 [facility] Work Phone: Serum or plasma albumin devin urement (mass/volume)on 03-12-2022 Albumin [Mass/Vol] 4.0 g/dL 3.2-5.0 [facility] Work Phone: Serum or plasma albumin/glob ulin mass ratioon 03-12-2022 Albumin/Globulin [Mass ratio] 1.1 {ratio} 0.9-2.4 [facility] Work Phone: Serum or plasma calcium devin urement (mass/volume)on 03-12-2022 Calcium [Mass/Vol] 9.2 mg/dL 8.5-10.1 [facility] Work Phone: Serum or plasma creatinine m easurement (mass/volume)on 03-12-2022 Creatinine [Mass/Vol] 0.97 mg/dL 0.70-1.30 [facility] Work Phone: Comment on above: The validity of the calculated GFR & GFRAA in patients over 70 years has not been determined. Clinical correlation is essential. Serum or plasma urea nitroge n measurement (mass/volume)on 03-12-2022 Urea nitrogen [Mass/Vol] 14 mg/dL 7-18 [facility] Work Phone: Thin prep Papanicolaou smear with manual screeningon 03-12-2022 Thin prep Papanicolaou smear with manual screening 18 U/L 15-37 [facility] Work Phone: Thin prep Papanicolaou smear with manual screening 5 5-15 [facility] Work Phone: Absolute lymphocyte counton 12-23-2021 Lymphocytes Auto (Unsp spec) [#/Vol] 1.54 10*3/uL 0.83-4.51 [facility] Work Phone: Basophil percentageon 2021 Basophils/100 WBC (Bld) 0.2 % 0-1 [facility] Work Phone: Bilirubin [Mass/Vol] 0.80 mg/dL 0.20-1.00 [facility] Work Phone: Comment on above: For patients on eltr ombopag therapy, use of Dimension [place] TBIL is not recommended. Chloride [Moles/Vol] 108 mmol/L 98-107 [facility] Work Phone: Eosinophils/100 WBC (Bld) 1.9 % 0-5 [facility] Work Phone: Glucose [Mass/Vol] 93 mg/dL 74-106 [facility] Work Phone: Neutrophils (Bld) [#/Vol] 3.5 10*3/uL 2.0-7.7 [facility] Work Phone: Neutrophils/100 WBC (Bld) 59.4 % 47-70 [facility] Work Phone: Potassium [Moles/Vol] 3.8 mmol/L 3.5-5.1 [facility] Work Phone: Protein [Mass/Vol] 7.2 g/dL 6.4-8.2 [facility] Work Phone: Sodium [Moles/Vol] 140 mmol/L 136-145 [facility] Work Phone: WBC (Bld) [#/Vol] 5.8 10*3/uL 4.4-11.0 [facility] Work Phone: Blood erythrocytes count (nu mber/volume)on 12-23-2021 RBC (Bld) [#/Vol] 4.65 10*6/uL 4.6-6.2 [facility] Work Phone: Blood hemoglobin measurement (mass/volume)on 12-23-2021 Hemoglobin (Bld) [Mass/Vol] 14.0 g/dL 13.0-16.5 [facility] Work Phone: Blood lymphocytes/100 leukoc yteson 12-23-2021 Lymphocytes/100 WBC (Bld) 26.6 % 19-41 [facility] Work Phone: Blood monocytes/100 leukocyt eson 12-23-2021 Monocytes/100 WBC (Bld) 11.6 % 0-10 [facility] Work Phone: Blood platelet mean volumeon 12-23-2021 Platelet mean volume (Bld) [Entitic vol] 9.8 fL 6.2-12.0 [facility] Work Phone: [phone] Determination of erythrocyte mean corpuscular volume (MCV)on 12-23-2021 MCV (RBC) [Entitic vol] 91.2 fL 80-94 [facility] Work Phone: [phone] Hematocrit Auto (Bld) [Volum e fraction]on 12-23-2021 Hematocrit (Bld) [Volume fraction] 42.4 % 40-54 [facility] Work Phone: Laboratory - Chemistry and C hemistry - challengeon 12-23-2021 ALP [Catalytic activity/Vol] 143 U/L 45-117 [facility] Work Phone: ALT [Catalytic activity/Vol] 27 U/L 16-61 [facility] Work Phone: CO2 [Moles/Vol] 26.0 mmol/L 21.0-32.0 [facility] Work Phone: Globulin (S) [Mass/Vol] 3.4 g/dL 2.2-4.2 [facility] Work Phone: Urea nitrogen/Creatinine [Mass ratio] 15.4 mg/mg 10-20 [facility] Work Phone: Laboratory - Hematology and Cell countson 12-23-2021 Erythrocyte distribution width (RBC) [Entitic vol] 46.9 fL 35.1-43.9 [facility] Work Phone: Erythrocyte distribution width (RBC) [Ratio] 13.8 % 11.6-14.6 [facility] Work Phone: Immature granulocytes/100 WBC (Bld) 0.300 % 0.0-0.9 [facility] Work Phone: Comment on above: IG% - Immature Granu locytes (promyelocytes, myelocytes and metamyelocytes) > 1% indicates that a LEFT SHIFT is Present. MCH (RBC) [Entitic mass] 30.1 pg 27.0-32.0 [facility] Work Phone: Nucleated RBC/100 WBC (Bld) [Ratio] 0 % 0-5 [facility] Work Phone: MCHC Auto (RBC) [Mass/Vol]on 12-23-2021 MCHC (RBC) [Mass/Vol] 33.0 g/dL 32-36 [facility] Work Phone: No Panel Informationon 12-23 Estimated GFR (MDRD) Amer 109 mL/min >60 [facility] Work Phone: Comment on above: GFR Calc Estimated GFR (MDRD) Non-Af Amer 90 mL/min >60 [facility] Work Phone: Comment on above: Non- GFR Calc Prostate Specific Antigen Screen 0.98 ng/mL 0.00-4.00 [facility] Work Phone: Comment on above: This test was perfor med using the TPSA assay method for [employer] chemistry system. Values obtained with differentassay methods cannot be used interchangably.When changing PSA assays in the course of monitoring apatient, additional sequential testing should be carriedout to confirm baseline values. Thyroid Stimulating Hormone (TSH) 1.20 uIU/mL 0.358-3.74 [facility] Work Phone: Platelets bldon 12-23-2021 Platelets (Bld) [#/Vol] 225 10*3/uL 150-450 [facility] Work Phone: Serum or plasma albumin devin urement (mass/volume)on 12-23-2021 Albumin [Mass/Vol] 3.8 g/dL 3.2-5.0 [facility] Work Phone: Serum or plasma albumin/glob ulin mass ratioon 12-23-2021 Albumin/Globulin [Mass ratio] 1.1 {ratio} 0.9-2.4 [facility] Work Phone: Serum or plasma calcium devin urement (mass/volume)on 12-23-2021 Calcium [Mass/Vol] 9.5 mg/dL 8.5-10.1 [facility] Work Phone: Serum or plasma creatinine m easurement (mass/volume)on 12-23-2021 Creatinine [Mass/Vol] 0.91 mg/dL 0.70-1.30 [facility] Work Phone: Comment on above: The validity of the calculated GFR & GFRAA in patients over 70 years has not been determined. Clinical correlation is essential. Serum or plasma urea nitroge n measurement (mass/volume)on 12-23-2021 Urea nitrogen [Mass/Vol] 14 mg/dL 7-18 [facility] Work Phone: Thin prep Papanicolaou smear with manual screeningon 12-23-2021 Thin prep Papanicolaou smear with manual screening 18 U/L 15-37 [facility] Work Phone: Thin prep Papanicolaou smear with manual screening 6 5-15 [facility] Work Phone: Office Visiton 08-17-2013 Documentation of current medications (procedure) Done Invalid Interpretation Code [facility] Work Phone: [phone] Smoking cessation education (procedure) yes Invalid Interpretation Code [facility] Work Phone: [phone] Replaced Document: Grace BILLINGS Observationson 08-17-2013 EKG QRS axis -2 deg Invalid Interpretation Code [facility] Work Phone: [phone] electrocardiogram interpretation Sinus Rhythm - Diffuse nonspecific T-abnormality. ABNORMAL Invalid Interpretation Code [facility] Phone: [phone] Interpretation Sinus Rhythm - Diffu se nonspecific T-abnormality. ABNORMAL Invalid Interpretation Code [facility] Phone: [phone] P Helen 41 deg Invalid Interpretation Code [facility] Work Phone: [phone] P wave axis, electrocardiogram 41 deg Invalid Interpretation Code [facility] Work Phone: [phone] NE Interval 126 ms Invalid Interpretation Code [facility] Work Phone: [phone] NE interval, electrocardiogram 126 ms Invalid Interpretation Code [facility] Work Phone: [phone] Pulse (Heart Rate) 87 /min Invalid Interpretation Code [facility] Phone: [phone] QRS axis, electrocardiogram -2 deg Invalid Interpretation Code [facility] Work Phone: [phone] QRS Duration 92 ms Invalid Interpretation Code [facility] Work Phone: [phone] QRS duration, electrocardiogram 92 ms Invalid Interpretation Code [facility] Work Phone: [phone] QT Interval new path ms Invalid Interpretation Code [facility] Work Phone: [phone] QT interval, electrocardiogram new path ms Invalid Interpretation Code [facility] Work Phone: [phone] T Helen -90 deg Invalid Interpretation Code [facility] Work Phone: [phone] T wave axis, electrocardiogram -90 deg Invalid Interpretation Code [facility] Work Phone: [phone] Clinical Lists Update: Pre retail key holder 08-09-2013 Tobacco smoking status NHIS current every day smoker [facility] Work Phone: [phone] Tobacco use CPHS current every day smoker Invali d Interpretation Code [facility] Work Phone: [phone] Clinical Lists Update: Pre retail key holder 07-15-2013 Albumin/Globulin Ratio {ratio} Invalid Interpretation Code [facility] Work Phone: [phone] Anion gap 10 mmol/L Invalid Interpretation Code [facility] Work Phone: [phone] Anion gap [Moles/Vol] 10 mmol/L [facility] Work Phone: [phone] Calcium 8.8 mg/dL Invalid Interpretation Code [facility] Work Phone: [phone] Chloride 107 mmol/L Invalid Interpretation Code [facility] Work Phone: [phone] CO2 27 mmol/L Invalid Interpretation Code [facility] Work Phone: [phone] CO2 (BldV) [Partial pressure] 27 mmol/L [facility] Work Phone: [phone] Creatinine 0.76 mg/dL Invalid Interpretation Code [facility] Work Phone: [phone] eGFR (non-black) mL/min/{1.73_m2} Invalid Interpretation Code [facility] Work Phone: [phone] Erythrocyte distribution width (RBC) [Ratio] 13.9 % [facility] Work Phone: [phone] Erythrocytes (RBC) 4.68 10*6/uL Invalid Interpretation Code [facility] Work Phone: [phone] Glucose 99 mg/dL Invalid Interpretation Code [facility] Work Phone: [phone] Glucose [Mass/Vol] 99 mg/dL Invalid Interpretation Code [facility] Work Phone: [phone] Hematocrit (Bld) [Volume fraction] 42.0 % [facility] Work Phone: 1() Hematocrit (HCT) 42.0 % Invalid Interpretation Code [facility] Work Phone: 1() Hemoglobin (HGB) 14.3 g/dL Invalid Interpretation Code [facility] Work Phone: 1() MCH 30.6 pg Invalid Interpretation Code [facility] Work Phone: 1() MCH (RBC) [Entitic mass] 30.6 pg [facility] Work Phone: 1() MCHC 34.0 g/dL Invalid Interpretation Code [facility] Work Phone: 1() MCHC (RBC) [Mass/Vol] 34.0 g/dL [facility] Work Phone: 1() MCV 89.7 fL Invalid Interpretation Code [facility] Work Phone: 1() MCV (RBC) [Entitic vol] 89.7 fL [facility] Work Phone: 1() Platelet mean volume (Bld) [Entitic vol] 9.9 fL [facility] Work Phone: 1() Platelets 202 10*3/mm3 Invalid Interpretation Code [facility] Work Phone: 1() Platelets (Bld) [#/Vol] 202 10*3/mm3 [facility] Work Phone: 1) PMV by Cassie 9.9 fL Invalid Interpretation Code [facility] Work Phone: 1() Potassium 4.1 mmol/L Invalid Interpretation Code [facility] Work Phone: 1() RBC (Bld) [#/Vol] 4.68 10*6/uL [facility] Work Phone: 1() RDW-CA 13.9 % Invalid Interpretation Code [facility] Work Phone: 1() Sodium 140 mmol/L Invalid Interpretation Code [facility] Work Phone: 1() Urea nitrogen 12 mg/dL Invalid Interpretation Code [facility] Work Phone: 1() WBC (Bld) [#/Vol] 6.1 10*3/uL [facility] Work Phone: [phone] WBC (Leukocytes) 6.1 10*3/uL Invalid Interpretation Code [facility] Work Phone: [phone] Clinical Lists Update: 07-14-2013 BUN/Creatinine Ratio 15.6 mg/mg Invalid Interpretation Code [facility] Work Phone: [phone] Cholesterol 190 mg/dL Invalid Interpretation Code [facility] Work Phone: [phone] HDL Cholesterol 30 mg/dL Low [facility] Work Phone: [phone] LDL Cholesterol 113 mg/dL Invalid Interpretation Code [facility] Work Phone: [phone] Triglyceride 237 mg/dL High [facility] Work Phone: [phone] very low density lipoproteins 47 mg/dL Invalid Interpretation Code [facility] Work Phone: [phone] Clinical Lists Update: 07-13-2013 basophils as percent of blood leukocytes, manual count 0.2 % Invalid Interpretation Code [facility] Work Phone: [phone] eosinophils as percent of blood leukocytes, manual count 1.5 % Invalid Interpretation Code [facility] Work Phone: [phone] Lymphocytes/100 leukocytes 28.0 % Invalid Interpretation Code [facility] Work Phone: [phone] Lymphocytes/100 WBC (Bld) 28.0 % [facility] Work Phone: [phone] Monocytes/100 leukocytes 8.3 % Invalid Interpretation Code [facility] Work Phone: [phone] Monocytes/100 WBC (Bld) 8.3 % [facility] Work Phone: [phone] neutrophils, band form as percent of blood leukocytes, manual count 61.8 % Invalid Interpretation Code [facility] Work Phone: [phone] Lab Report: T4on 03-22-2010 Thyroxine (T4) 9.1 ug/dL Normal 4.5-12.1 [facility] Work Phone: [phone] Lab Report: TSHon 03-22-2010 Thyroid stimulating hormone (TSH) 1.12 u[iU]/mL Normal 0.358-3.74 [facility] Work Phone: COVID-19 virus antigen assay SARS-CoV-2 (COVID-19) Ag IA.rapid Ql (Resp) [facility] Work Phone: Culture, urine Bacteria identified Cx Nom (U) Culture exhibits no growth. [facility] Work Phone: Bacteria identified Cx Nom (U) Positive [facility] Work Phone: Influenza virus A and B and SARS-CoV-2 (COVID-19) Ag panel - Upper respiratory specim SARS-CoV-2 (COVID-19) RNA JOHNNY+probe Ql (Resp) [facility] Work Phone: No Panel Information Influenza Types A,B Direct FA (JEN) [facility] Work Phone: SARS-CoV-2 & FLU Antigen (Rapid) [facility] Work Phone: RSV Ag EIA RSV Ag Immune stain Ql (Tiss) [facility] Work Phone: Vital Signs Date Time Vital Sign Value Performing Clinician Facility 03-10-2025 23:05-0400 SaO2% (BldA) [Mass fraction] 90 % JANNETH WHITE [facility] Comment on above: Order Comment: Specimen Type: ARTERIAL B LOOD SPECIMENOrdering Facility: [facility] Address: [address] [place] [address] Performed By: #### A LLBG ####[facility]ATORYCLIA [id number] [place] [address] [place] 02-20-2025 09:45-0400 Body temperature 97.5 [degF] [facility] Work Phone: [facility] 02-20-2025 09:45-0400 Diastolic blood pressure 71 mm[Hg] [facility] Work Phone: [facility] 02-20-2025 09:45-0400 Heart rate 87 /min [facility] Work Phone: [facility] 02-20-2025 09:45-0400 SaO2% (BldA) [Mass fraction] 97 % [facility] Work Phone: [facility] 02-20-2025 09:45-0400 Systolic blood pressure 105 mm[Hg] [facility] Work Phone: [facility] 02-17-2025 11:22-0400 Body temperature 98.71 [degF] [facility] Work Phone: [facility] 02-17-2025 11:22-0400 Diastolic blood pressure 70 mm[Hg] [facility] Work Phone: [facility] 02-17-2025 11:22-0400 Heart rate 87 /min [facility] Work Phone: [facility] 02-17-2025 11:22-0400 Respiratory rate 18 /min [facility] Work Phone: [facility] 02-17-2025 11:22-0400 SaO2% (BldA) [Mass fraction] 98 % [facility] Work Phone: [facility] 02-17-2025 11:22-0400 Systolic blood pressure 102 mm[Hg] [facility] Work Phone: [facility] 02-14-2025 14:05-0400 Body mass index (BMI) [Ratio] 28.27 kg/m2 [facility] Work Phone: [facility] 02-14-2025 14:05-0400 Body weight 70.1 kg [facility] Work Phone: [facility] 02-14-2025 13:00-0400 Body temperature 97.7 [degF] [facility] Work Phone: [facility] 02-14-2025 13:00-0400 Diastolic blood pressure 72 mm[Hg] [facility] Work Phone: [facility] 02-14-2025 13:00-0400 Heart rate 51 /min [facility] Work Phone: [facility] 02-14-2025 13:00-0400 Systolic blood pressure 102 mm[Hg] [facility] Work Phone: [facility] 02-10-2025 10:39-0400 Body temperature 98.6 [degF] [facility] Work Phone: [facility] 02-10-2025 10:39-0400 Diastolic blood pressure 72 mm[Hg] [facility] Work Phone: [facility] 02-10-2025 10:39-0400 Heart rate 89 /min [facility] Work Phone: [facility] 02-10-2025 10:39-0400 Respiratory rate 18 /min [facility] Work Phone: [facility] 02-10-2025 10:39-0400 SaO2% (BldA) [Mass fraction] 96 % [facility] Work Phone: [facility] 02-10-2025 10:39-0400 Systolic blood pressure 106 mm[Hg] Treatment [facility]str Work Phone: [facility] 02-08-2025 10:08-0400 Body temperature 98.2 [degF] Treatment [facility]str Work Phone: [facility] 02-08-2025 10:08-0400 Diastolic blood pressure 66 mm[Hg] Treatment [facility]str Work Phone: [facility] 02-08-2025 10:08-0400 Heart rate 102 /min Treatment [facility]str Work Phone: [facility] 02-08-2025 10:08-0400 SaO2% (BldA) [Mass fraction] 97 % [facility] Work Phone: [facility] 02-08-2025 10:08-0400 Systolic blood pressure 94 mm[Hg] Treatment [facility]str Work Phone: [facility] 01-30-2025 15:12-0400 Diastolic blood pressure 78 mm[Hg] Treatment [facility]str Work Phone: [facility] 01-30-2025 15:12-0400 Heart rate 98 /min Treatment [facility] Work Phone: [facility] 01-30-2025 15:12-0400 Respiratory rate 14 /min Treatment [facility] Work Phone: [facility] 01-30-2025 15:12-0400 SaO2% (BldA) [Mass fraction] 96 % [facility] Work Phone: [facility] 01-30-2025 15:12-0400 Systolic blood pressure 118 mm[Hg] Treatment [facility]str Work Phone: [facility] 01-30-2025 09:49-0400 Body mass index (BMI) [Ratio] 28.17 kg/m2 Treatment [facility] Work Phone: [facility] 01-30-2025 09:49-0400 Body temperature 97.81 [degF] Treatment [facility]str Work Phone: [facility] 01-30-2025 09:49-0400 Body weight 69.85 kg Treatment [facility]str Work Phone: [facility] 01-13-2025 14:29-0400 Body height 154.9 cm Pst 1 [facility] 01-13-2025 14:29-0400 Body mass index (BMI) [Ratio] 30.99 kg/m2 Pst 1 [facility] 01-13-2025 14:29-0400 Body temperature 98.2 [degF] Pst 1 [facility] 01-13-2025 14:29-0400 Body weight 74.39 kg Pst 1 [facility] 01-13-2025 14:29-0400 Diastolic blood pressure 68 mm[Hg] Pst 1 [facility] 01-13-2025 14:29-0400 Heart rate 97 /min Pst 1 [facility] 01-13-2025 14:29-0400 Respiratory rate 14 /min Pst 1 [facility] 01-13-2025 14:29-0400 SaO2% (BldA) [Mass fraction] 98 % Pst 1 [facility] 01-13-2025 14:29-0400 Systolic blood pressure 101 mm[Hg] Pst 1 [facility] 01-10-2025 08:20-0400 Body mass index (BMI) [Ratio] 30.54 kg/m2 Ingrid Orellana Work Phone: [facility] 01-10-2025 08:20-0400 Body temperature 98.01 [degF] Ingrid Orellana Work Phone: [facility] 01-10-2025 08:20-0400 Body weight 75.75 kg Ingrid Orellana Work Phone: [facility] 01-10-2025 08:20-0400 Diastolic blood pressure 68 mm[Hg] Ingrid Orellana Work Phone: [facility] 01-10-2025 08:20-0400 Heart rate 102 /min Ingrid Orellana Work Phone: [facility] 01-10-2025 08:20-0400 SaO2% (BldA) [Mass fraction] 96 % Ingrid Orellana Work Phone: [facility] 01-10-2025 08:20-0400 Systolic blood pressure 102 mm[Hg] Ingrid Orellana Work Phone: [facility] 01-06-2025 09:39-0400 Body temperature 97.59 [degF] Treatment Wstr Work Phone: [facility] 01-06-2025 09:39-0400 Diastolic blood pressure 68 mm[Hg] Treatment Wstr Work Phone: [facility] 01-06-2025 09:39-0400 Heart rate 110 /min Treatment Wstr Work Phone: [facility] 01-06-2025 09:39-0400 SaO2% (BldA) [Mass fraction] 98 % Treatment Wstr Work Phone: [facility] 01-06-2025 09:39-0400 Systolic blood pressure 118 mm[Hg] Treatment Wstr Work Phone: [facility] 01-05-2025 21:18-0400 Body temperature 98.7 [degF] Dr. Josef Garcia MD Work Phone: [facility] 01-05-2025 21:18-0400 Diastolic blood pressure 77 mm[Hg] Dr. Josef Garcia MD Work Phone: [facility] 01-05-2025 21:18-0400 Heart rate 90 /min Dr. Josef Garcia MD Work Phone: [facility] 01-05-2025 21:18-0400 Respiratory rate 18 /min Dr. Josef Garcia MD Work Phone: [facility] 01-05-2025 21:18-0400 SaO2% (BldA) [Mass fraction] 97 % Dr. Josef Garcia MD Work Phone: [facility] 01-05-2025 21:18-0400 Systolic blood pressure 106 mm[Hg] Dr. Josef Garcia MD Work Phone: [facility] 01-05-2025 16:39-0400 Body height 157.[address] Josef Garcia MD Work Phone: [facility] 01-03-2025 13:37-0400 Body temperature 99 [degF] Treatment Wstr Work Phone: [facility] 01-03-2025 13:37-0400 Diastolic blood pressure 77 mm[Hg] Treatment Wstr Work Phone: [facility] 01-03-2025 13:37-0400 Heart rate 102 /min Treatment Wstr Work Phone: [facility] 01-03-2025 13:37-0400 Respiratory rate 16 /min Treatment Wstr Work Phone: [facility] 01-03-2025 13:37-0400 SaO2% (BldA) [Mass fraction] 99 % Treatment Wstr Work Phone: [facility] 01-03-2025 13:37-0400 Systolic blood pressure 114 mm[Hg] Treatment Wstr Work Phone: [facility] 12-30-2024 12:41-0400 Body temperature 97 [degF] Lab/Port Wstr Work Phone: [facility] 12-30-2024 12:41-0400 Diastolic blood pressure 69 mm[Hg] Lab/Port Wstr Work Phone: [facility] 12-30-2024 12:41-0400 Heart rate 112 /min Lab/Port Wstr Work Phone: [facility] 12-30-2024 12:41-0400 SaO2% (BldA) [Mass fraction] 98 % Lab/Port Wstr Work Phone: [facility] 12-30-2024 12:41-0400 Systolic blood pressure 107 mm[Hg] Lab/Port Wstr Work Phone: [facility] 12-29-2024 09:05-0400 Body temperature 98.2 [degF] Treatment Wstr Work Phone: [facility] 12-29-2024 09:05-0400 Diastolic blood pressure 63 mm[Hg] Treatment Wstr Work Phone: [facility] 12-29-2024 09:05-0400 Heart rate 92 /min Treatment Wstr Work Phone: [facility] 12-29-2024 09:05-0400 SaO2% (BldA) [Mass fraction] 94 % Treatment Wstr Work Phone: [facility] 12-29-2024 09:05-0400 Systolic blood pressure 99 mm[Hg] Treatment Wstr Work Phone: [facility] 12-28-2024 14:30-0400 Body height 157.5 cm Renay Cloud MD Work Phone: [facility] 12-28-2024 14:30-0400 Diastolic blood pressure 74 mm[Hg] Renay Cloud MD Work Phone: [facility] 12-28-2024 14:30-0400 Heart rate 100 /min Renay Cloud MD Work Phone: [facility] 12-28-2024 14:30-0400 SaO2% (BldA) [Mass fraction] 96 % Renay Cloud MD Work Phone: [facility] 12-28-2024 14:30-0400 Systolic blood pressure 110 mm[Hg] Renay Cloud MD Work Phone: [facility] 12-28-2024 13:33-0400 Body height 157.5 cm Damian Romeroozer PRODUCT SAFETY TECHNICIAN.[employer] Work Phone: [facility] 12-28-2024 13:33-0400 Body mass index (BMI) [Ratio] 31.64 kg/m2 Damian Boozer PRODUCT SAFETY TECHNICIAN.[employer] Work Phone: [facility] 12-28-2024 13:33-0400 Body weight 78.47 kg Damian Romeroozer PRODUCT SAFETY TECHNICIAN.[employer] Work Phone: [facility] 12-28-2024 13:33-0400 Diastolic blood pressure 74 mm[Hg] Damian Boozer PRODUCT SAFETY TECHNICIAN.[facility] Work Phone: [facility] 12-28-2024 13:33-0400 Heart rate 100 /min Damian Romeroozer PRODUCT SAFETY TECHNICIAN.[facility] Work Phone: [facility] 12-28-2024 13:33-0400 Respiratory rate 18 /min Damian Romeroozer PRODUCT SAFETY TECHNICIAN.[facility] Work Phone: [facility] 12-28-2024 13:33-0400 SaO2% (BldA) [Mass fraction] 96 % Damian Arreguin PRODUCT SAFETY TECHNICIAN.[facility] Work Phone: [facility] Comment on above: on 12-28-2024 13:33-0400 Systolic blood pressure 110 mm[Hg] Damian Romeroozer PRODUCT SAFETY TECHNICIAN.[employer] Work Phone: [facility] 12-27-2024 08:06-0400 Body mass index (BMI) [Ratio] 31.55 kg/m2 Lab/Port Wstr Work Phone: [facility] 12-27-2024 08:06-0400 Body temperature 98.2 [degF] Kemal Obregon MD Work Phone: [facility] 12-27-2024 08:06-0400 Body weight 78.25 kg Lab/Port Wstr Work Phone: [facility] 12-27-2024 08:06-0400 Diastolic blood pressure 70 mm[Hg] Kemal Obregon MD Work Phone: [facility] 12-27-2024 08:06-0400 Heart rate 103 /min Kemal Obregon MD Work Phone: [facility] 12-27-2024 08:06-0400 SaO2% (BldA) [Mass fraction] 96 % Kemal Obregon MD Work Phone: [facility] 12-27-2024 08:06-0400 Systolic blood pressure 117 mm[Hg] Kemal Obregon MD Work Phone: [facility] 12-14-2024 13:51-0400 Body temperature 99.39 [degF] Lab/Port Wstr Work Phone: [facility] Comment on above: wearing a stocking cap 12-14-2024 13:51-0400 Diastolic blood pressure 64 mm[Hg] Lab/Port Wstr Work Phone: [facility] 12-14-2024 13:51-0400 Heart rate 93 /min Lab/Port Wstr Work Phone: [facility] 12-14-2024 13:51-0400 SaO2% (BldA) [Mass fraction] 95 % Lab/Port Wstr Work Phone: [facility] 12-14-2024 13:51-0400 Systolic blood pressure 117 mm[Hg] Lab/Port Wstr Work Phone: [facility] 12-13-2024 08:27-0400 Body mass index (BMI) [Ratio] 33.11 kg/m2 Treatment Wstr Work Phone: [facility] 12-13-2024 08:27-0400 Body temperature 98.2 [degF] Treatment Wstr Work Phone: [facility] 12-13-2024 08:27-0400 Body weight 82.1 kg Treatment Wstr Work Phone: [facility] 12-13-2024 08:27-0400 Diastolic blood pressure 77 mm[Hg] Treatment Wstr Work Phone: [facility] 12-13-2024 08:27-0400 Heart rate 79 /min Treatment Wstr Work Phone: [facility] 12-13-2024 08:27-0400 Respiratory rate 18 /min Treatment Wstr Work Phone: [facility] 12-13-2024 08:27-0400 SaO2% (BldA) [Mass fraction] 95 % Treatment Wstr Work Phone: [facility] 12-13-2024 08:27-0400 Systolic blood pressure 116 mm[Hg] Treatment Wstr Work Phone: [facility] 12-05-2024 09:52-0400 Body mass index (BMI) [Ratio] 33.29 kg/m2 Ingrid Orellana Work Phone: [facility] 12-05-2024 09:52-0400 Body temperature 99 [degF] Ingrid Orellana Work Phone: [facility] 12-05-2024 09:52-0400 Body weight 82.56 kg Ingridsaravanan Orellana Work Phone: [facility] 12-05-2024 09:52-0400 Diastolic blood pressure 81 mm[Hg] Ingrid Orellana Work Phone: [facility] 12-05-2024 09:52-0400 Heart rate 95 /min Ingrid Orellana Work Phone: [facility] 12-05-2024 09:52-0400 SaO2% (BldA) [Mass fraction] 99 % Ingridsaravanan Orellana Work Phone: [facility] 12-05-2024 09:52-0400 Systolic blood pressure 136 mm[Hg] Ingrid Orellana Work Phone: [facility] 12-05-2024 09:38-0400 Body mass index (BMI) [Ratio] 33.29 kg/m2 Lab/Port Wstr Work Phone: [facility] 12-05-2024 09:38-0400 Body weight 82.56 kg Lab/Port Wstr Work Phone: [facility] 11-23-2024 11:56-0400 Body temperature 97.5 [degF] Lab/Port Wstr Work Phone: [facility] 11-23-2024 11:56-0400 Diastolic blood pressure 78 mm[Hg] Lab/Port Wstr Work Phone: [facility] 11-23-2024 11:56-0400 Heart rate 91 /min Lab/Port Wstr Work Phone: [facility] 11-23-2024 11:56-0400 SaO2% (BldA) [Mass fraction] 97 % Lab/Port Wstr Work Phone: [facility] 11-23-2024 11:56-0400 Systolic blood pressure 120 mm[Hg] Lab/Port Wstr Work Phone: [facility] 11-22-2024 07:43-0400 Body temperature 97.9 [degF] Treatment Wstr Work Phone: [facility] 11-22-2024 07:43-0400 Diastolic blood pressure 64 mm[Hg] Treatment Wstr Work Phone: [facility] 11-22-2024 07:43-0400 Heart rate 85 /min Treatment Wstr Work Phone: [facility] 11-22-2024 07:43-0400 SaO2% (BldA) [Mass fraction] 97 % Treatment Wstr Work Phone: [facility] 11-22-2024 07:43-0400 Systolic blood pressure 106 mm[Hg] Treatment Wstr Work Phone: [facility] 11-21-2024 12:37-0400 Body height 157.5 cm Renay Cloud MD Work Phone: [facility] 11-21-2024 12:37-0400 Body mass index (BMI) [Ratio] 34.48 kg/m2 Renay Cloud MD Work Phone: [facility] 11-21-2024 12:37-0400 Body weight 85.5 kg Renay Cloud MD Work Phone: [facility] 11-21-2024 12:37-0400 Diastolic blood pressure 78 mm[Hg] Renay Cloud MD Work Phone: [facility] 11-21-2024 12:37-0400 Heart rate 95 /min Renay Cloud MD Work Phone: [facility] 11-21-2024 12:37-0400 SaO2% (BldA) [Mass fraction] 99 % Renay Cloud MD Work Phone: [facility] 11-21-2024 12:37-0400 Systolic blood pressure 120 mm[Hg] Renay Cloud MD Work Phone: [facility] 11-21-2024 09:26-0400 Body mass index (BMI) [Ratio] 35.33 kg/m2 Ingridsaravanan Orellana Work Phone: [facility] 11-21-2024 09:26-0400 Body temperature 98.1 [degF] Ingrid Orellana Work Phone: [facility] 11-21-2024 09:26-0400 Body weight 84.82 kg Ingrid Orellana Work Phone: [facility] 11-21-2024 09:26-0400 Diastolic blood pressure 72 mm[Hg] Ingird Orellana Work Phone: [facility] 11-21-2024 09:26-0400 Heart rate 85 /min Ingrid Orellana Work Phone: [facility] 11-21-2024 09:26-0400 SaO2% (BldA) [Mass fraction] 98 % Ingrid Orellana Work Phone: [facility] 11-21-2024 09:26-0400 Systolic blood pressure 115 mm[Hg] Ingrid Orellana Work Phone: [facility] 11-21-2024 09:10-0400 Body mass index (BMI) [Ratio] 35.33 kg/m2 Lab/Port Wstr Work Phone: [facility] 11-21-2024 09:10-0400 Body weight 84.82 kg Lab/Port Wstr Work Phone: [facility] 11-08-2024 12:22-0400 Body temperature 97.9 [degF] Lab/Port Wstr Work Phone: [facility] 11-08-2024 12:22-0400 Diastolic blood pressure 82 mm[Hg] Lab/Port Wstr Work Phone: [facility] 11-08-2024 12:22-0400 Heart rate 95 /min Lab/Port Wstr Work Phone: [facility] 11-08-2024 12:22-0400 SaO2% (BldA) [Mass fraction] 97 % Lab/Port Wstr Work Phone: [facility] 11-08-2024 12:22-0400 Systolic blood pressure 129 mm[Hg] Lab/Port Wstr Work Phone: [facility] 11-07-2024 07:46-0400 Body mass index (BMI) [Ratio] 36.09 kg/m2 Treatment Wstr Work Phone: [facility] 11-07-2024 07:46-0400 Body temperature 97.11 [degF] Treatment Wstr Work Phone: [facility] 11-07-2024 07:46-0400 Body weight 86.64 kg Treatment Wstr Work Phone: [facility] 11-07-2024 07:46-0400 Diastolic blood pressure 78 mm[Hg] Treatment Wstr Work Phone: [facility] 11-07-2024 07:46-0400 Heart rate 89 /min Treatment Wstr Work Phone: [facility] 11-07-2024 07:46-0400 SaO2% (BldA) [Mass fraction] 99 % Treatment Wstr Work Phone: [facility] 11-07-2024 07:46-0400 Systolic blood pressure 118 mm[Hg] Treatment Wstr Work Phone: [facility] 10-28-2024 11:49-0400 Body mass index (BMI) [Ratio] 34.95 kg/m2 Kemal Obregon MD Work Phone: [facility] 10-28-2024 11:49-0400 Body temperature 97.11 [degF] Kemal Obrgeon MD Work Phone: [facility] 10-28-2024 11:49-0400 Body weight 85.28 kg Kemal Obregon MD Work Phone: [facility] 10-28-2024 11:49-0400 Diastolic blood pressure 65 mm[Hg] Kemal Obregon MD Work Phone: [facility] 10-28-2024 11:49-0400 Heart rate 106 /min Kemal Obregon MD Work Phone: [facility] 10-28-2024 11:49-0400 SaO2% (BldA) [Mass fraction] 99 % Kemal Obregon MD Work Phone: [facility] 10-28-2024 11:49-0400 Systolic blood pressure 98 mm[Hg] Kemal Obregon MD Work Phone: [facility] 10-20-2024 10:40-0400 Body temperature 98.24 [degF] DR TAMIKO KERNS MD [facility] 10-20-2024 10:40-0400 Diastolic Blood Pressure Non-Invasive 72 mm[Hg] DR TAMIKO KERNS MD [facility] 10-20-2024 10:40-0400 Heart rate 95 /min DR TAMIKO KERNS MD [facility] 10-20-2024 10:40-0400 Reason For Taking VItal Signs DR TAMIKO KERNS MD [facility] 10-20-2024 10:40-0400 Respiratory rate 18 /min DR TAMIKO KERNS MD [facility] 10-20-2024 10:40-0400 Systolic Blood Pressure Non-Invasive 139 mm[Hg] DR TAMIKO KERNS MD [address] [place] [address] 10-20-2024 07:47-0400 Heart rate 108 /min DR TAMIKO KERNS MD [address] 10-20-2024 07:18-0400 Body temperature 98.24 [degF] DR TAMIKO KERNS MD [address] 10-20-2024 07:18-0400 Diastolic Blood Pressure Non-Invasive 86 mm[Hg] DR TAMIKO KERNS MD [address] 10-20-2024 07:18-0400 Heart rate 111 /min DR TAMIKO KERNS MD [address] 10-20-2024 07:18-0400 Reason For Taking VItal Signs DR TAMIKO KERNS MD [address] 10-20-2024 07:18-0400 Respiratory rate 18 /min DR TAMIKO KERNS MD [address] 10-20-2024 07:18-0400 Systolic Blood Pressure Non-Invasive 134 mm[Hg] DR TAMIKO KERNS MD [address] 10-20-2024 04:15-0400 Body temperature 98.6 [degF] DR TAMIKO KERNS MD [address] [place] [address] 10-20-2024 04:15-0400 Diastolic Blood Pressure Non-Invasive 83 mm[Hg] DR TAMIKO KERNS MD [address] [place] [address] 10-20-2024 04:15-0400 Heart rate 99 /min DR TAMIKO KERNS MD [address] [place] [address] 10-20-2024 04:15-0400 Mean blood pressure 95 mm[Hg] DR TAMIKO KERNS MD [address] [place] [address] 10-20-2024 04:15-0400 Respiratory rate 18 /min DR TAMIKO KERNS MD [address] [place] [address] 10-20-2024 04:15-0400 Systolic Blood Pressure Non-Invasive 127 mm[Hg] DR TAMIKO KERNS MD [address] [place] [address] 10-20-2024 02:47-0400 Heart rate 93 /min DR TAMIKO KERNS MD [address] [place] [address] 10-20-2024 00:23-0400 Heart rate 89 /min DR TAMIKO KERNS MD [address] [place] [address] 10-19-2024 22:59-0400 Heart rate 112 /min DR TAMIKO KERNS MD [address] [place] [address] 10-19-2024 18:30-0400 Heart rate 107 /min DR TAMIKO KERNS MD [address] 10-19-2024 17:27-0400 Heart rate 96 /min DR TAMIKO KERNS MD [address] [place] [address] 10-19-2024 15:37-0400 Reason For Taking VItal Signs DR TAMIKO KERNS MD [address] 10-18-2024 10:54-0400 Mean blood pressure 96 mm[Hg] DR TAMIKO KERNS MD [address] [place] [address] 10-18-2024 09:54-0400 Body height 165.[address] TAMIKO KERNS MD [address] [place] [address] 10-18-2024 09:54-0400 Body weight [address] TAMIKO KERNS MD [address] [place] [address] 10-18-2024 09:54-0400 Body weight 31.55 kg/m2 DR TAMIKO KERNS MD [address] [place] [address] 10-18-2024 06:50-0400 Mean blood pressure 92 mm[Hg] DR TAMIKO KERNS MD [address] [place] [address] 10-12-2024 09:25-0400 Body height 156.2 cm Kemal Obregon MD Work Phone: [facility] 10-12-2024 09:25-0400 Body mass index (BMI) [Ratio] 36.81 kg/m2 Kemal Obregon MD Work Phone: [facility] 10-12-2024 09:25-0400 Body temperature 98.49 [degF] Kemal Obregon MD Work Phone: [facility] 10-12-2024 09:25-0400 Body weight 89.81 kg Kemal Obregon MD Work Phone: [facility] 10-12-2024 09:25-0400 Diastolic blood pressure 78 mm[Hg] Kemal Obregon MD Work Phone: [facility] 10-12-2024 09:25-0400 Heart rate 90 /min Kemal Obregon MD Work Phone: [facility] 10-12-2024 09:25-0400 SaO2% (BldA) [Mass fraction] 96 % Kemal Obregon MD Work Phone: [facility] 10-12-2024 09:25-0400 Systolic blood pressure 137 mm[Hg] Kemal Obregon MD Work Phone: [facility] 02-19-2024 15:11-0400 Body height 157.5 cm Zia Zapien MD Work Phone: [facility] 02-19-2024 15:11-0400 Body mass index (BMI) [Ratio] 37.49 kg/m2 Zia Zapien MD Work Phone: [facility] 02-19-2024 15:11-0400 Body weight 92.99 kg Zia Zapien MD Work Phone: [facility] 02-19-2024 15:11-0400 Diastolic blood pressure 80 mm[Hg] Zia holley MD Work Phone: [facility] 02-19-2024 15:11-0400 Heart rate 84 /min Zia Zapien MD Work Phone: [facility] 02-19-2024 15:11-0400 Respiratory rate 16 /min Zia Zapien MD Work Phone: [facility] 02-19-2024 15:11-0400 SaO2% (BldA) [Mass fraction] 96 % Zia Zapien MD Work Phone: [facility] 02-19-2024 15:11-0400 Systolic blood pressure 119 mm[Hg] Zia whitehead MD Work Phone: [facility] 06-26-2023 15:18-0500 Diastolic Blood Pressure Non-Invasive 97 mm[Hg] DR ARACELI MONTES MD [facility] 06-26-2023 15:18-0500 Systolic Blood Pressure Non-Invasive 146 mm[Hg] DR ARACELI MONTES MD [facility] 06-26-2023 15:16-0500 Heart rate 72 /min DR ARACELI MONTES MD [facility] 06-26-2023 15:16-0500 Respiratory rate 18 /min DR ARACELI MONTES MD [facility] 06-26-2023 14:48-0500 Diastolic Blood Pressure Non-Invasive 81 mm[Hg] DR ARACELI MONTES MD [facility] 06-26-2023 14:48-0500 Heart rate 78 /min DR ARACELI MONTES MD [facility] 06-26-2023 14:48-0500 Respiratory rate 22 /min DR ARACELI MONTES MD [facility] 06-26-2023 14:48-0500 Systolic Blood Pressure Non-Invasive 124 mm[Hg] DR ARACELI MONTES MD [facility] 06-26-2023 14:40-0500 Diastolic Blood Pressure Non-Invasive 69 mm[Hg] DR ARACELI MONTES MD [facility] 06-26-2023 14:40-0500 Heart rate 91 /min DR ARACELI MONTES MD [facility] 06-26-2023 14:40-0500 Respiratory rate 12 /min DR ARACELI MONTES MD [facility] 06-26-2023 14:40-0500 Systolic Blood Pressure Non-Invasive 130 mm[Hg] DR ARACELI MONTES MD [facility] 06-26-2023 14:12-0500 Body temperature 97.7 [degF] DR ARACELI MONTES MD [facility] 06-26-2023 14:05-0500 Respiratory Rate - Anes 19 br/min DR ARACELI Mcmullen [facility] 06-26-2023 14:00-0500 Respiratory Rate - Anes 23 br/min DR ARACELI Mcmullen [facility] 06-26-2023 13:55-0500 Respiratory Rate - Anes 18 br/min DR ARACELI Mcmullen [facility] 06-26-2023 13:11-0500 Body height 157.[address] ARACELI MONTES MD [facility] 06-26-2023 13:11-0500 Body temperature 97.88 [degF] DR ARACELI MONTES MD [facility] 06-26-2023 13:11-0500 Body weight 93.[address] ARACELI MONTES MD [facility] 06-26-2023 13:11-0500 Heart rate 74 /min DR ARACELI MONTES MD [facility] 06-21-2023 10:37-0500 Body mass index (BMI) [Ratio] 35.7 kg/m2 Dr. Josef Garcia Work Phone: [facility] 06-21-2023 10:37-0500 Body weight 88.[address] Josef Garcia Work Phone: [facility] 06-21-2023 09:38-0500 Body height 157.[address] Josef Garcia Work Phone: 8(958)927-132228 [place] [address] 06-21-2023 09:38-0500 Body temperature 96 [degF] Dr. Josef Garcia Work Phone: 8(111)435-984328 [place] [address] 06-21-2023 09:38-0500 Diastolic blood pressure 66 mm[Hg] Dr. Josef Garcia Work Phone: 0(311)[phone] [place] [address] 06-21-2023 09:38-0500 Heart rate 70 /min Dr. Josef Garcia Work Phone: 4(346)262-133228 [place] [address] 06-21-2023 09:38-0500 Respiratory rate 20 /min Dr. Josef Garcia Work Phone: 6(104)[phone] [address] 06-21-2023 09:38-0500 SaO2% (BldA) [Mass fraction] 100 % Dr. Josef Garcia Work Phone: [facility] 06-21-2023 09:38-0500 Systolic blood pressure 135 mm[Hg] Dr. Josef Garcia Work Phone: [facility] 06-18-2023 15:11-0500 Body mass index (BMI) [Ratio] 37.6 kg/m2 Dr. Josef Garcia Work Phone: [facility] 06-18-2023 15:11-0500 Body weight 93.[address] Josef Garcia Work Phone: [facility] 06-18-2023 15:11-0500 Diastolic blood pressure 71 mm[Hg] Dr. Josef Garcia Work Phone: [facility] 06-18-2023 15:11-0500 Heart rate 81 /min Dr. Josef Garcia Work Phone: [facility] 06-18-2023 15:11-0500 Respiratory rate 16 /min Dr. Josef Garcia Work Phone: [facility] 06-18-2023 15:11-0500 Systolic blood pressure 110 mm[Hg] Dr. Josef Garcia Work Phone: 2(959)173-831728 [place] [address] 11-29-2022 00:06-0400 Diastolic blood pressure 64 mm[Hg] Dr. Josef Garcia Work Phone: 5(264)206-381428 [place] [address] 11-29-2022 00:06-0400 Systolic blood pressure 125 mm[Hg] Dr. Josef Garcia Work Phone: 6(842)417-227528 [place] [address] 11-28-2022 23:27-0400 Heart rate 85 /min Dr. Josef Garcia Work Phone: 7(923)070-161656 [place] [address] 11-28-2022 23:27-0400 Respiratory rate 18 /min Dr. Josef Garcia Work Phone: 7(328)442-528828 [place] [address] 11-28-2022 23:27-0400 SaO2% (BldA) [Mass fraction] 96 % Dr. Josef Garcia Work Phone: 8(405)516-410314 [address] 11-28-2022 21:21-0400 Body height 157.[address] Josef Garcia Work Phone: 9(418)731-858156 [place] [address] 11-28-2022 21:21-0400 Body mass index (BMI) [Ratio] 36.3 kg/m2 Dr. Josef Garcia Work Phone: 3(209)370-052928 [place] [address] 11-28-2022 21:21-0400 Body temperature 98.1 [degF] Dr. Josef Garcia Work Phone: 0(528)194-091828 [place] [address] 11-28-2022 21:21-0400 Body weight 90.[address] Josef Garcia Work Phone: 3(490)412-267856 [place] [address] 06-26-2022 09:05-0500 Body height 157.[address] Josef Garcia Work Phone: 9(401)373-655156 [place] [address] 06-26-2022 09:05-0500 Body mass index (BMI) [Ratio] 38.7 kg/m2 Dr. Josef Garcia Work Phone: [facility] 06-26-2022 09:05-0500 Body weight 96.[address] Josef Garcia Work Phone: [facility] 06-26-2022 09:05-0500 Diastolic blood pressure 72 mm[Hg] Dr. Josef Garcia Work Phone: [facility] 06-26-2022 09:05-0500 Heart rate 82 /min Dr. Josef Garcia Work Phone: [facility] 06-26-2022 09:05-0500 Respiratory rate 16 /min Dr. Josef Garcia Work Phone: [facility] 06-26-2022 09:05-0500 Systolic blood pressure 115 mm[Hg] Dr. Josef Garcia Work Phone: [facility] 05-01-2022 11:02-0400 Body weight 92.31 kg No PCP None [facility] Work Phone: 04-15-2022 09:05-0400 Body height 157.[address] Josef Garcia Work Phone: [facility] Work Phone: 04-15-2022 09:05-0400 Body mass index (BMI) [Ratio] 37.6 kg/m2 Dr. Josef Garcia Work Phone: [facility] Work Phone: 04-15-2022 09:05-0400 Body weight 93.[address] Josef Garcia Work Phone: [facility] Work Phone: 04-15-2022 09:05-0400 Diastolic blood pressure 83 mm[Hg] Dr. Josef Garcia Work Phone: [facility] Work Phone: 04-15-2022 09:05-0400 Heart rate 81 /min Dr. Josef Garcia Work Phone: [facility] Work Phone: 04-15-2022 09:05-0400 Respiratory rate 18 /min Dr. Josef Garcia Work Phone: [facility] Work Phone: 04-15-2022 09:05-0400 Systolic blood pressure 122 mm[Hg] Dr. Josef Garcia Work Phone: [facility] Work Phone: 03-28-2022 04:39-0400 Body temperature 96.5 [degF] Dr. Josef Garcia Work Phone: [facility] Work Phone: 03-28-2022 04:39-0400 Diastolic blood pressure 66 mm[Hg] Dr. Josef Garcia Work Phone: [facility] Work Phone: 03-28-2022 04:39-0400 Heart rate 83 /min Dr. Josef Garcia Work Phone: [facility] Work Phone: 03-28-2022 04:39-0400 SaO2% (BldA) [Mass fraction] 95 % Dr. Josef aGrcia Work Phone: [facility] Work Phone: 03-28-2022 04:39-0400 Systolic blood pressure 122 mm[Hg] Dr. Josef Garcia Work Phone: [facility] Work Phone: 03-28-2022 01:55-0400 Respiratory rate 17 /min Dr. Josef Garcia Work Phone: [facility] Work Phone: 03-27-2022 22:50-0400 Body mass index (BMI) [Ratio] 36.6 kg/m2 Dr. Josef Garcia Work Phone: [facility] Work Phone: 03-27-2022 22:50-0400 Body weight 90.[address] Josef Garcia Work Phone: [facility] Work Phone: 03-26-2022 19:10-0400 Diastolic blood pressure 76 mm[Hg] [facility] Work Phone: 03-26-2022 19:10-0400 Heart rate 75 /min [facility] Work Phone: 03-26-2022 19:10-0400 Respiratory rate 16 /min [facility] Work Phone: 03-26-2022 19:10-0400 SaO2% (BldA) [Mass fraction] 99 % [facility] Work Phone: 03-26-2022 19:10-0400 Systolic blood pressure 115 mm[Hg] [facility] Work Phone: 03-26-2022 18:12-0400 Inhaled oxygen flow rate 2 L/min [facility] Work Phone: 03-26-2022 16:55-0400 Body temperature 96.5 [degF] [facility] Work Phone: 03-26-2022 15:29-0400 Body height 157.48 cm [facility] Work Phone: 03-26-2022 15:29-0400 Body mass index (BMI) [Ratio] 36.6 kg/m2 [facility] Work Phone: 03-26-2022 15:29-0400 Body weight 90.71 kg [facility] Work Phone: 08-17-2013 11:25-0500 Heart rate 87 /min [facility] Work Phone: 08-17-2013 11:02-0500 BMI (Body Mass Index) 34.14 kg/m2 [facility] Work Phone: 08-17-2013 11:02-0500 Body weight 84.37 kg [facility] Work Phone: 08-17-2013 11:02-0500 BP Diastolic 86 mm[Hg] [facility] [employer] Work Phone: 08-17-2013 11:02-0500 BP Systolic 118 mm[Hg] ELIU [facility] [employer] Work Phone: 08-17-2013 11:02-0500 Height 157.48 cm ELIU Angulo [employer] Work Phone: 08-17-2013 11:02-0500 Pulse (Heart Rate) 72 /min ELIU Angulo [employer] Work Phone: 08-17-2013 11:02-0500 Respiratory Rate 18 /min ELIU [facility] [employer] Work Phone: 08-17-2013 11:02-0500 Weight 84.37 kg ELIU [facility] [employer] Work Phone: Encounters Encounter Date Encounter Type Care Provider Facility Start: 05-23-2025 End: 05-23-2025 ambulatory FAUSTINA GENET Facility:[facility] Start: 05-18-2025 End: 05-18-2025 ambulatory JOSEF CHI JOSE Facility:[facility] Start: 05-10-2025 End: 05-10-2025 ambulatory Jimena Farnsworth Facility:[facility] Start: 05-01-2025 ambulatory RENAY Escoto ity:[facility] Start: 04-25-2025 End: 04-25-2025 ambulatory FAUSTINA GENET Facility:[facility] Start: 04-18-2025 End: 04-18-2025 ambulatory FAUSTINACHER SÁNCHEZ Facility:[facility] Start: 04-06-2025 ambulatory ТАТЬЯНА HILL [facility] ility:[id number] Start: 04-06-2025 ambulatory JOSEF CHI JOSE Facility:[facility] Start: 03-31-2025 End: 03-31-2025 Telephone encounter Faustina Mcgee RN [facility] Comment on above: Sort Line - O ther; Post Op Follow Up (Week 4) Start: 03-30-2025 End: 03-30-2025 Telephone encounter Krzysztof Morel MD Work Phone: [facility] [place] Comment on above: Appointment 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) Start: 03-29-2025 End: 03-29-2025 Orders Only Татьяна Hill PA-C Work Phone: [facility] Comment on above: Esophageal anastomot ic leak (Primary Dx) Start: 03-10-2025 End: 03-29-2025 Evaluation and management of inpatient AMALIA RAGLAND Facility:[facility] Start: 03-09-2025 End: 03-09-2025 Telephone encounter Faustina Mcgee RN [facility] Start: 03-08-2025 End: 03-08-2025 Nutrition therapy Faustina Sánchez RD Work Phone: Nutrition Therapy Comment on above: Nutrition Telephone (No show) Start: 03-08-2025 End: 03-08-[address] Faustina Sánchez RD Work Phone: Nutrition Therapy Start: 03-07-2025 End: 03-07-2025 Orders Only Татьяна Hill PA-C Work Phone: [facility] Comment on above: Malignant neoplasm o f lower third of esophagus (HCC) (Primary Dx) Start: 02-28-2025 End: 03-07-2025 Evaluation and management of inpatient JOSEF CHI JOSE Facility:[facility] Start: 02-22-2025 End: 02-22-2025 ambulatory JOSEF CHI JOSE Facility:[facility] Start: 02-21-2025 End: 02-21-2025 ambulatory FAUSTINA GENET Facility:[facility] Start: 02-20-2025 End: 02-20-2025 ambulatory Treatment Rm 18 Sae [facility] Work Phone: Hematology/Oncology Comment on above: Hypomagnesemia (Prim sanjana Dx); Malignant neoplasm of esophagus, unspecified location (HCC); Malignant neoplasm of lower third of esophagus (HCC) Start: 02-17-2025 End: 02-17-2025 Telephone encounter Ingrid Orellana Work Phone: Hematology/Oncology Comment on above: Appointment Start: 02-17-2025 End: 02-17-2025 Nutrition therapy Treatment Wstr Work Phone: Hematology/Oncology Comment on above: Malignant neoplasm o f lower third of esophagus (HCC) (Primary Dx); Severe protein-calorie malnutrition (HCC) Start: 02-17-2025 End: 02-17-2025 ambulatory Treatment Rm 16 Sae [facility] Work Phone: Hematology/Oncology Start: 02-17-2025 End: 02-17-[address] Foster Malik MD [facility] Work Phone: Start: 02-16-2025 End: 02-16-2025 Nutrition therapy Faustina Sánchez RD Work Phone: Nutrition Therapy Comment on above: Nutrition Assessment Start: 02-16-2025 End: 02-16-[address] Faustina Sánchez RD Work Phone: Nutrition Therapy Start: 02-14-2025 End: 02-14-2025 ambulatory Treatment Rm 14 Ase [facility] Work Phone: Hematology/Oncology Start: 02-14-2025 End: 02-14-2025 Nutrition therapy Faustina Sánchez RD Work Phone: Hematology/Oncology Comment on above: Malignant neoplasm o f lower third of esophagus (HCC) (Primary Dx); Severe protein-calorie malnutrition (HCC) Nutrition Telephone Start: 02-10-2025 End: 02-10-2025 ambulatory Treatment Rm 18 Sae [facility] Work Phone: Hematology/Oncology Comment on above: Malignant neoplasm o f lower third of esophagus (HCC) (Primary Dx) Start: 02-09-2025 End: 02-09-2025 Nutrition therapy Faustina Sánchez RD Work Phone: Nutrition Therapy Comment on above: Nutrition Assessment Start: 02-09-2025 End: 02-09-2025 [address] Faustina Sánchez RD Work Phone: Nutrition Therapy Start: 02-09-2025 End: 02-09-2025 Telephone encounter Faustina Sánchez RD Work Phone: Nutrition Therapy Start: 02-08-2025 End: 02-08-2025 ambulatory Treatment Rm 18 Sae [facility] Work Phone: Hematology/Oncology Comment on above: Malignant neoplasm o f lower third of esophagus (HCC) (Primary Dx); Hypokalemia; Hypomagnesemia; Malignant neoplasm of esophagus, unspecified location (HCC) Start: 02-07-2025 Encounter for other preprocedural examination FAUSTINA SÁNCHEZ [facility] Start: 02-07-2025 End: 02-08-2025 Orders Only Ingrid Esetban Work Phone: Hematology/Oncology Comment on above: Hypomagnesemia (Prim sanjana Dx) Refill Request Nutrition Assessment Start: 02-06-2025 End: 02-06-2025 Telephone encounter Faustina Mcgee RN [facility] Comment on above: Sort Line - O ther Severe protein-calor ie malnutrition (HCC) (Primary Dx) Start: 02-03-2025 End: 02-03-2025 Telephone encounter Marlene Mcghee RN Work Phone: Hematology/Oncology Comment on above: Sort Line - H ospital Follow Up Start: 02-02-2025 End: 02-02-2025 Telephone encounter Kay ROMEO Hematology/Oncology Comment on above: Social Work Services Start: 01-31-2025 End: 01-31-2025 Telephone encounter Víctor Kidd MD Work Phone: [facility] [place] Comment on above: Cardiac Clearance Start: 01-30-2025 End: 02-03-2025 Evaluation and management of inpatient VÍCTOR KIDD Facility:[facility] Start: 01-30-2025 End: 01-30-2025 ambulatory Treatment Rm 8 [facility] Work Phone: Hematology/Oncology Comment on above: Malignant neoplasm o f lower third of esophagus (HCC) (Primary Dx) Start: 01-27-2025 End: 01-29-2025 Evaluation and management of inpatient JANNETH WHITE Facility:[facility] Start: 01-26-2025 End: 01-26-2025 Orders Only Renay Cloud MD Work Phone: [facility] Comment on above: Malnutrition of mode rate degree (HCC) (Primary Dx); Malignant neoplasm of lower third of esophagus (HCC) Start: 01-19-2025 End: 01-19-2025 Telephone encounter Kemal Obregon MD Work Phone: Hematology/Oncology Start: 01-19-2025 End: 01-19-2025 Patient encounter procedure Willem Sanchez MD Work Phone: Pulmonary Medicine Comment on above: Hilar adenopathy (Pr imary Dx); Malignant neoplasm of lower third of esophagus (HCC); Dysphagia, unspecified type; Tobacco use disorder; Centrilobular emphysema (HCC) Start: 01-19-2025 End: 01-19-2025 ambulatory WILLEM SANCHEZ Facility:[facility] Start: 01-13-2025 Encounter for other preprocedural examination [facility] Start: 01-13-2025 End: 01-13-2025 Admission to [facility] Acc 1 Pre Surgical Testing Start: 01-13-2025 End: 01-13-2025 Patient encounter procedure [facility] Provider [facility] Department Start: 01-13-2025 End: 01-13-2025 Preprocedural examination done [facility] Provider 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 Start: 01-10-2025 End: 01-10-2025 Telephone encounter Ingrid Orellana Work Phone: Hematology/Oncology Comment on above: avs 01/10 Start: 01-10-2025 End: 01-10-2025 Patient encounter procedure Ingrid Orellana Work Phone: Hematology/Oncology Start: 01-10-2025 End: 01-10-2025 ambulatory Treatment Rm 16 Sae [facility] Work Phone: Hematology/Oncology Comment on above: Iron deficiency anem ia secondary to inadequate dietary iron intake (Primary Dx); Malignant neoplasm of lower third of esophagus (HCC) Bronchoscopy Schedul ing- CLEARED (before 01/23) (Initial Bronch Request ) Malignant neoplasm o f lower third of esophagus (HCC) Start: 01-09-2025 End: 01-09-2025 Telephone encounter Marlene Mcghee RN Work Phone: Hematology/Oncology Comment on above: Care Coordination (F ollow up Note ) Start: 01-06-2025 End: 01-06-2025 ambulatory Treatment Rm 15 Sae [facility] Work Phone: Hematology/Oncology Comment on above: Iron deficiency anem ia secondary to inadequate dietary iron intake (Primary Dx); Malignant neoplasm of lower third of esophagus (HCC) Start: 01-05-2025 End: 01-05-2025 Emergency department patient visit Dr. Josef Garcia MD Work Phone: -Emergency Department Work Phone: Start: 01-05-2025 End: 01-06-2025 Telephone encounter Damian Arreguin APRN.CNP Work Phone: [facility] SUR[facility] Comment on above: Patient Update Care Coordination (D ysphagia); Future Appointment Start: 01-04-2025 End: 01-04-2025 Patient encounter procedure Pulm [facility] Start: 01-04-2025 End: 01-04-2025 ambulatory JOSEF CHI JOSE [facility] Comment on above: Spirometry Start: 01-03-2025 End: 01-03-2025 ambulatory Treatment Rm 14 Sae [facility] Work Phone: Hematology/Oncology Comment on above: Iron deficiency anem ia secondary to inadequate dietary iron intake (Primary Dx) Start: 01-02-2025 End: 01-02-2025 Telephone encounter Damian Arreguin APRN.COLOR BUFFER Work Phone: [facility] Comment on above: Patient Update Start: 12-30-2024 End: 01-02-2025 Telephone encounter Damian Arreguin APRN.COLOR BUFFER Work Phone: [facility] Comment on above: Patient Update Appointment Start: 12-30-2024 End: 12-30-2024 ambulatory Lab/[place] [facility] Work Phone: Hematology/Oncology Comment on above: Malignant neoplasm o f lower third of esophagus (HCC) (Primary Dx) Start: 12-29-2024 End: 12-29-2024 Telephone encounter aKy ROMEO Hematology/Oncology Start: 12-29-2024 End: 12-29-2024 ambulatory Treatment Rm 5 Sae [facility] Work Phone: Hematology/Oncology Comment on above: Malignant neoplasm o f lower third of esophagus (HCC) (Primary Dx); Anemia, unspecified type Start: 12-28-2024 End: 12-28-2024 Office outpatient visit 40 minutes Renay Cloud MD Work Phone: [facility] Comment on above: Malignant neoplasm o f lower third of esophagus (HCC) (Primary Dx) Start: 12-28-2024 End: 12-28-2024 Orders Only Renay Cloud MD Work Phone: [facility] Comment on above: Malignant neoplasm o f lower third of esophagus (HCC) (Primary Dx); Preoperative examination; Malnutrition of moderate degree (HCC) Preoperative examina tion (Primary Dx); NSTEMI (non-ST elevated myocardial infarction) (HCC); Moderate smoker (20 or less per day); Anemia, unspecified type; Malignant neoplasm of lower third of esophagus (HCC); Sick sinus syndrome (HCC); Malnutrition of moderate degree (HCC); MAGGI on CPAP Start: 12-28-2024 End: 12-28-2024 Preprocedural examination done Renay Cloud MD Work Phone: [facility] Start: 12-27-2024 End: 12-27-2024 Telephone encounter Kemal Obregon MD Work Phone: Hematology/Oncology Comment on above: AVS 12/27 Start: 12-27-2024 End: 12-27-2024 Patient encounter procedure Kemal Obregon MD Work Phone: Hematology/Oncology Start: 12-27-2024 End: 12-27-2024 ambulatory Lab/[facility] Work Phone: Hematology/Oncology Comment on above: Malignant neoplasm o f lower third of esophagus (HCC) Malignant neoplasm o f lower third of esophagus (HCC) (Primary Dx) Start: 12-26-2024 ambulatory [facility] Facility:[facility] Start: 12-26-2024 End: 12-26-2024 Subsequent hospital visit by physician [facility] Comment on above: Malignant neoplasm o f lower third of esophagus (HCC) [C15.5] Start: 12-19-2024 End: 12-19-2024 Patient encounter procedure [facility] Provider [facility] Start: 12-14-2024 End: 12-14-2024 ambulatory Lab/[place] [facility] Work Phone: Hematology/Oncology Comment on above: Malignant neoplasm o f lower third of esophagus (HCC) (Primary Dx) Start: 12-13-2024 End: 12-13-2024 ambulatory Treatment Rm 2 Sae [facility] Work Phone: Hematology/Oncology Comment on above: Malignant neoplasm o f lower third of esophagus (HCC) (Primary Dx) Start: 12-07-2024 End: 12-07-2024 ambulatory KEMAL OBREGON Facility:[facility] Start: 12-05-2024 End: 12-05-2024 Patient encounter procedure Ingrid Warrenight Work Phone: Hematology/Oncology Start: 12-05-2024 End: 12-05-2024 ambulatory Ingrid Esteban Work Phone: Hematology/Oncology Comment on above: Malignant neoplasm o f lower third of esophagus (HCC) (Primary Dx) Malignant neoplasm o f lower third of esophagus (HCC) Start: 11-28-2024 End: 11-29-2024 Refill Kemal Obregon MD Work Phone: Hematology/Oncology Start: 11-23-2024 End: 11-23-2024 ambulatory Lab/[facility] Work Phone: Hematology/Oncology Comment on above: Malignant neoplasm o f lower third of esophagus (HCC) (Primary Dx) Start: 11-22-2024 End: 11-22-2024 Nutrition therapy Faustina Sánchez RD Work Phone: Nutrition Therapy Comment on above: Nutrition Assessment Start: 11-22-2024 End: 11-22-[address]24 [address] Faustina Sánchez RD Work Phone: Nutrition Therapy Comment on above: Malignant neoplasm o f lower third of esophagus (HCC) (Primary Dx); Hypokalemia Start: 11-21-2024 End: 11-21-2024 Telephone encounter Kay ROMEO Hematology/Oncology Comment on above: Social Work Services Start: 11-21-2024 End: 11-21-2024 Office outpatient new 45 minutes Renay Cloud MD Work Phone: General Surgery Comment on above: Malignant neoplasm o f lower third of esophagus (HCC) (Primary Dx) Start: 11-21-2024 End: 11-21-2024 ambulatory RENAY CLOUD Facility:[facility] Start: 11-21-2024 End: 11-21-2024 Patient encounter procedure Ingrid Esteban Work Phone: Hematology/Oncology Start: 11-21-2024 End: 11-21-2024 ambulatory Lab/[place] [facility] Work Phone: Hematology/Oncology Comment on above: Malignant neoplasm o f lower third of esophagus (HCC) Malignant neoplasm o f lower third of esophagus (HCC) (Primary Dx) Start: 11-16-2024 End: 11-16-2024 Telephone encounter Marlene Mcghee RN Work Phone: Hematology/Oncology Comment on above: Care Coordination (T oxicity Check) Start: 11-09-2024 End: 11-09-2024 Telephone encounter Marlene Mcghee RN Work Phone: Hematology/Oncology Comment on above: Care Coordination (C YCLE 1/DAY 1 POST TREATMENT CALL ) Start: 11-08-2024 End: 11-08-2024 ambulatory Lab/[place] [facility] Work Phone: Hematology/Oncology Comment on above: Malignant neoplasm o f lower third of esophagus (HCC) (Primary Dx) Start: 11-07-2024 End: 11-07-2024 Telephone encounter Kemal Obregon MD Work Phone: Hematology/Oncology Comment on above: Medication Request Start: 11-07-2024 End: 11-07-2024 ambulatory Treatment Rm 2 Sae [facility] Work Phone: Hematology/Oncology Comment on above: Malignant neoplasm o f lower third of esophagus (HCC) (Primary Dx) Start: 11-04-2024 End: 11-04-2024 ambulatory JOSEF CHI JOSE Facility:[facility] Start: 11-04-2024 End: 11-07-2024 Telephone encounter Marlene Mcghee RN Work Phone: Hematology/Oncology Comment on above: Medication Request Start: 11-04-2024 End: 11-04-2024 curriculum writer [facility] Work Phone: Hematology/Oncology Comment on above: Encounter for educat ion (Primary Dx); Malignant neoplasm of lower third of esophagus (HCC) Start: 11-03-2024 End: 11-03-2024 ambulatory JOSEF CHI JOSE Facility:[facility] Start: 10-28-2024 End: 10-28-2024 Telephone encounter Sarah Arceo RN Hematology/Oncology Comment on above: Sort Line - O ther (Introduction ) AVS 10/28 Start: 10-28-2024 End: 10-28-2024 ambulatory Kemal Obregon MD Work Phone: Hematology/Oncology Comment on above: Malignant neoplasm o f lower third of esophagus (HCC) (Primary Dx) Start: 10-28-2024 End: 10-28-2024 Patient encounter procedure Kemal Obregon MD Work Phone: Hematology/Oncology Start: 10-27-2024 End: 10-27-2024 Orders Only Trinity Borden RN [facility] Radiology Comment on above: Malignant neoplasm o f lower third of esophagus (HCC) (Primary Dx) Start: 10-26-2024 End: 10-27-2024 Telephone encounter Marlene Mcghee RN Work Phone: Hematology/Oncology Comment on above: Future Appointment Start: 10-25-2024 ambulatory JOSEF GARCIA Facility:[facility] Start: 10-25-2024 End: 10-25-2024 Subsequent hospital visit by physician Injection Pet [facility] PET CT Comment on above: Malignant neoplasm o f lower third of esophagus (HCC) [C15.5] Start: 10-24-2024 End: 10-24-[address] Josef Garcia MD Work Phone: [facility] Work Phone: Start: 10-24-2024 End: 10-24-[address] Josef Garcia MD -Laboratory Work Phone: Start: 10-24-2024 End: 10-24-2024 ambulatory Josef Garcia Facility[place] [place] Start: 10-24-2024 End: 10-24-[address] Foster Malik MD -[facility] Work Phone: Start: 10-24-2024 End: 10-24-2024 ambulatory Josef Garcia Facility:[facility] Start: 10-21-2024 End: 10-21-2024 ambulatory KEMAL OBREGON Facility:[facility] Start: 10-21-2024 End: 10-21-2024 Subsequent hospital visit by physician Ct [facility] (I-Stat) Work Phone: Cat Scan Comment on above: Malignant neoplasm o f lower third of esophagus (HCC) [C15.5] Start: 10-18-2024 End: 10-20-2024 Evaluation and management of inpatient DR TAMIKO KERNS MD [facility] Start: 10-17-2024 End: 10-18-2024 Evaluation and management of inpatient DR CON CHEN MD Facility:[facility] Start: 10-17-2024 End: 10-17-[address] CON CHEN MD Facility:[facility] Start: 10-12-2024 End: 10-12-2024 ambulatory Kemal Obregon MD Work Phone: Hematology/Oncology Comment on above: Malignant neoplasm o f lower third of esophagus (HCC) (Primary Dx) Start: 10-12-2024 End: 10-12-2024 Patient encounter procedure Kemal Obregon MD Work Phone: Hematology/Oncology Start: 10-11-2024 End: 10-11-[address] Josef Garcia MD Work Phone: [facility] Work Phone: Start: 10-11-2024 End: 10-11-[address] Josef Garcia MD -Laboratory, Phy Office 3rd Kyr Start: 10-11-2024 End: 10-11-2024 ambulatory Josef Garcia Facility:[facility] Start: 09-09-2024 End: 09-09-2024 Telephone encounter Kemal Obregon MD Work Phone: Hematology/Oncology Comment on above: New Patient Start: 08-09-2024 End: 08-09-[address] Josef Garcia MD -Radiology, [facility] Work Phone: Start: 08-09-2024 End: 08-09-2024 ambulatory Josef Garcia Facility:[facility] Start: 08-03-2024 End: 08-03-[address] Josef Garcia MD -Radiology, [facility] Work Phone: Start: 08-03-2024 End: 08-03-2024 ambulatory Josef Chi Jose Facility:[facility] Start: 06-30-2024 End: 06-30-[address] Josef Garcia MD -Laboratory, Phy Office 3rd Flr Start: 06-30-2024 End: 06-30-2024 ambulatory Josef Chi Jose Facility:[facility] Start: 06-24-2024 ambulatory Josef Chi Jose Facility:[facility] Start: 06-24-2024 Non-patient / Non-visit Dr. Angel holland MD -[facility] Start: 06-24-2024 End: 06-24-[address] Lorraine Rubio MD -Cardiovascular Services Work Phone: Start: 06-24-2024 End: 06-24-2024 ambulatory Lorraine Rubio Facility:[facility] Start: 06-14-2024 End: 06-14-2024 ambulatory Josef Chi Jose Facility:[facility] Start: 06-06-2024 End: 06-06-2024 ambulatory Josef Chi Jose Facility:[facility] Start: 06-02-2024 End: 06-02-2024 ambulatory Aychuy Basali Facility:[facility] Start: 03-30-2024 End: 03-30-2024 Follow-up encounter Zia Zapien MD Work Phone: [facility] Start: 03-30-2024 End: 03-30-2024 Patient encounter procedure Zia Zapien MD Work Phone: [facility] Start: 03-29-2024 End: 03-29-2024 Telephone encounter Zia Zapien MD Work Phone: [facility] Comment on above: Wound Check Start: 03-18-2024 End: 03-18-2024 Telephone encounter Zia Zapien MD Work Phone: [facility] Comment on above: Preparations For Pro cedures Start: 02-19-2024 End: 02-19-2024 Office outpatient new 45 minutes Zia Zapien MD Work Phone: [facility] Comment on above: Sick sinus syndrome (HCC) (Primary Dx); Sinus arrest; Carotid sinus hypersensitivity; Presence of cardiac pacemaker; Malfunction of electrode lead of cardiac pacemaker Start: 11-19-2023 End: 11-19-[address] Josef Garcia Work Phone: [facility] Work Phone: Start: 11-19-2023 End: 11-19-[address] [facility] Work Phone: Start: 11-12-2023 Non-patient / Non-visit Dr. rBian Garcia Work Phone: [facility] Work Phone: Start: 11-12-2023 Non-patient / Non-visit Dr. Brian Garcia Work Phone: [facility] Start: 11-11-2023 Non-patient / Non-visit Dr. Brian Garcia Work Phone: [facility] Start: 11-11-2023 End: 11-11-[address] Josef Garcia Work Phone: [facility] Work Phone: Start: 11-11-2023 End: 11-11-[address] Jose[facility] Start: 10-14-2023 End: 10-14-[address] Josef Garcia Work Phone: [facility] Work Phone: Start: 10-14-2023 End: 10-14-[address] Josef Garcia Work Phone: [facility]-Laboratory Work Phone: Start: 10-08-2023 End: 10-08-[address] Josef Garcia Work Phone: [facility] Work Phone: Start: 07-02-2023 End: 07-02-[address] Josef Garcia Work Phone: [facility] Work Phone: Start: 07-02-2023 End: 07-02-[address] Josef Garcia Work Phone: [facility]-Laboratory, Phy Office 3rd Flr Start: 06-26-2023 End: 06-26-[address] ARACELI MONTES MD Facility:[facility] Start: 06-26-2023 End: 06-26-[address] ARACELI MONTES MD [facility] Start: 06-24-2023 End: 06-25-[address] ARACELI MONTES MD Facility:[facility] Start: 06-21-2023 End: 06-21-2023 Emergency department patient visit Dr. Josef Garcia Work Phone: [facility]-Emergency Department Work Phone: Start: 06-18-2023 End: 06-18-[address] Josef Garcia Work Phone: [facility] Work Phone: Start: 05-27-2023 End: 05-27-2023 ambulatory [facility] Work Phone: Start: 05-27-2023 End: 05-27-2023 [facility] Start: 04-09-2023 End: 04-09-[address] Josef Garcia Work Phone: [facility] Work Phone: Start: 04-09-2023 End: 04-09-[address] Josef Garcia Work Phone: [facility] Work Phone: Start: 02-25-2023 End: 02-25-[address] Josef Garcia Work Phone: [facility] Work Phone: Start: 02-25-2023 End: 02-25-[address] Josef Garcia Work Phone: [facility]-Radiology, [facility] Work Phone: Start: 01-16-2023 End: 01-16-[address] Josef Garcia Work Phone: [facility] Work Phone: Start: 01-01-2023 End: 01-01-[address] Josef Garcia Work Phone: [facility] Work Phone: Start: 01-01-2023 End: 01-01-[address] Josef Garcia Work Phone: [facility]-Laboratory Start: 12-01-2022 End: 12-01-[address] Josef Garcia Work Phone: [facility]-Laboratory Start: 11-28-2022 End: 11-29-2022 Emergency department patient visit Dr. Josef Garcia Work Phone: [facility]-Emergency Department Start: 10-28-2022 End: 10-28-[address] Josef Garcia Work Phone: [facility] Work Phone: Start: 10-28-2022 End: 10-28-[address] Josef Garcia Work Phone: [facility]-Laboratory Start: 10-15-2022 Non-patient / Non-visit Dr. Brian Garcia Work Phone: [facility] Start: 10-15-2022 End: 10-15-[address] Josef Garcia Work Phone: [facility]-Cardiovascular Services Start: 10-14-2022 End: 10-14-[address] Josef Garcia Work Phone: [facility]-Radiology, [facility] Start: 10-03-2022 End: 10-03-[address] Josef Garcia Work Phone: [facility] Start: 09-15-2022 End: 09-15-[address] Josef Garcia Work Phone: [facility] Work Phone: Start: 09-15-2022 End: 09-15-[address] Josef [facility] Start: 09-09-2022 End: 09-09-[address] Josef Garcia Work Phone: [facility] Work Phone: Start: 09-09-2022 End: 09-09-[address] Josef [facility] Start: 08-04-2022 Chart Update No PCP None [facility] Work Phone: Start: 08-04-2022 ambulatory MD ARACELY MARADIAGA Fac ility:[id number] Start: 06-26-2022 End: 06-26-[address] Josef Garcia Work Phone: [facility] Start: 06-18-2022 End: 06-18-[address] Josef Garcia Work Phone: [facility] Work Phone: Start: 06-18-2022 End: 06-18-[address] Josef Garcia Work Phone: [facility]-Pulmonary Services/Neurology Start: 05-05-2022 Chart Update No PCP None [facility] Work Phone: Start: 05-01-2022 ambulatory MD ARACELY MARADIAGA Fac ility:[id number] Start: 05-01-2022 Patient encounter procedure No PCP None [facility] Work Phone: Start: 04-25-2022 End: 04-25-2022 ambulatory MD ARACELY MARADIAGA Facility:[id number] Start: 04-15-2022 End: 04-15-2022 Admission to same day surgery center Dr. Josef Garcia Work Phone: [facility] Start: 04-15-2022 End: 04-15-[address] Josef Garcia Work Phone: [facility] Start: 04-11-2022 Non-patient / Non-visit Dr. Brian Garcia Work Phone: [facility] Start: 04-09-2022 End: 04-09-[address] Josef Garcia Work Phone: [facility] Work Phone: Start: 04-09-2022 End: 04-09-[address] Josef Garcia Work Phone: [facility]-Laboratory, Phy Office 3rd Flr Start: 04-07-[address] ARACELY Reid cility:[id number] Start: 04-07-2022 Chart Update No PCP None [facility] Work Phone: Start: 04-03-2022 ambulatory MD ARACELY MARADIAGA Fac ility:[id number] Start: 03-28-2022 End: 03-28-2022 Evaluation and management of inpatient Dr. Elgin Joseph Facility:[id number] Start: 03-27-2022 End: 03-28-2022 Emergency department patient visit Dr. Josef Garcia Work Phone: [facility]-Emergency Department Start: 03-26-2022 End: 03-26-2022 Emergency department patient visit [facility]-Emergency Department Start: 03-13-2022 End: 03-13-2022 ambulatory [facility] Work Phone: Start: 03-13-2022 End: 03-13-2022 Patient encounter procedure [facility]-Pulmonary Services/Neurology Start: 03-12-2022 End: 03-12-2022 ambulatory [facility] Work Phone: Start: 03-12-2022 End: 03-12-2022 Patient encounter procedure [facility]-Laboratory, Phy Office 3rd Flr Start: 12-26-2021 End: 12-26-2021 Patient encounter procedure [facility]-Cat Scan, [facility] Start: 12-23-2021 End: 12-23-2021 Patient encounter procedure [facility]-Laboratory Procedures Date Procedure Procedure Detail Performing Clinician Start: 03-10-2025 Electrocardiogram JANNETH CINDY Start: 02-28-2025 Antibody screen JANNETH MAN Comment on above: Order Comment: Speci men Type: BLOOD SPECIMENOrdering Facility: [facility] Address: [address] [place] [address] Performed By: #### T SCR ####[facility] BLOOD BANKCLIA [id number] [address] Start: 02-17-2025 Comprehensive metabo lic panel Татьяна Hill PA-C Work Phone: Start: 02-14-2025 Comprehensive metabo lic panel Kemal Obregon MD Work Phone: Start: 01-30-2025 Blood count complete auto&auto difrntl wbc Daphney Amanda PRODUCT SAFETY TECHNICIAN.COLOR BUFFER Work Phone: Start: 01-13-2025 Antibody screen JANNETH MAN Comment on above: Order Comment: Speci men Type: BLOOD SPECIMENOrdering Facility: [facility] Address: [address] [place] [address] Performed By: #### T SCR30 ####[facility] BLOOD BANKCLIA [id number] [address] Start: 01-05-2025 Urnls dip stick/tabl et reagent auto microscopy Dr. Josef Garcia MD Work Phone: Start: 01-05-2025 X-ray of chest, PA a nd lateral views Dr. Josef Garcia MD Work Phone: Start: 01-05-2025 SARS-CoV-2, Influenz a & RSV (PCR) Dr. Josef Garcia MD Work Phone: Start: 01-04-2025 Plethysmography lung volumes w/wo airway resist Renay Cloud MD Work Phone: Start: 12-29-2024 Blood count complete automated Damian Arreguin PRODUCT SAFETY TECHNICIAN.COLOR BUFFER Work Phone: Start: 12-29-2024 C-reactive protein Aurai emili Arreguin PRODUCT SAFETY TECHNICIAN.COLOR BUFFER Work Phone: Start: 12-27-2024 CBC + DIFF Kemal corbin MD Work Phone: Start: 12-27-2024 Comprehensive metabo lic panel Kemal Obregon MD Work Phone: Start: 12-26-2024 Gluc bld gluc mntr d ev cleared fda spec home use [facility] Start: 12-13-2024 Blood count complete auto&auto difrntl wbc Kemal Obregon MD Work Phone: Start: 12-05-2024 Blood count complete auto&auto difrntl wbc Kemal Obregon MD Work Phone: Start: 11-21-2024 End: 11-21-2024 Blood count complete auto&auto difrntl wbc Kemal Obregon MD Work Phone: Start: 11-07-2024 Thromboplastin time partial plasma/whole blood Kemal Obregon MD Work Phone: Start: 10-25-[address] atten uation skull base mid-thigh Kemal Obregon MD Work Phone: Start: 10-25-2024 Gluc bld gluc mntr d ev cleared fda spec home use [facility] Provider Start: 10-21-2024 Ct head/brain w/cont rast material Kemal Obregon MD Work Phone: Start: 10-11-[address] Josef Garcia MD Work Phone: Start: 10-11-[address] Josef Garcia MD Work Phone: Start: 10-11-2024 Gram stain microscopy D soha Garcia MD Work Phone: Start: 10-11-2024 End: 10-11-2024 Microbial culture, routine Dr. Josef Garcia MD Work Phone: Start: 08-09-2024 X-ray of esophagus w ith double contrast Dr. Josef Garcia MD Work Phone: Start: 08-03-[address] Josef samuel MD Work Phone: Start: 03-30-2024 PACEMAKER CLINIC CHECK Zia Zapien MD Work Phone: Start: 02-19-2024 Ecg routine ecg w/le ast 12 lds w/i&r Zia Zapien MD Work Phone: Start: 11-19-2023 Plain chest X-ray Dr. Gregorio Garcia Work Phone: Start: 11-19-2023 X-ray of unilateral ribs, two views without x-ray of chest Dr. Josef Garcia Work Phone: Start: 11-11-2023 Cardiovascular stres s test using pharmacologic stress agent Dr. Josef Garcia Work Phone: Start: 06-26-[address] ARACELI MONTES MD Comment on above: diagnostic Start: 06-21-2023 X-ray of chest posteroanterior view Dr. Josef Garcia Work Phone: Start: 06-21-2023 CT of abdomen and pe lvis without contrast Dr. Josef Garcia Work Phone: Start: 05-27-2023 Diagnostic radiograp hy of abdomen, decubitus and erect Start: 04-09-[address] Josef samuel Work Phone: Start: 02-25-2023 Radiologic examinati on of knee Dr. Josef Garcia Work Phone: Start: 11-28-2022 Plain chest X-ray Dr. Gregorio Garcia Work Phone: Start: 11-28-2022 SARS-CoV-2 & FLU Ant igen (Rapid) Dr. Josef Garcia Work Phone: Start: 10-14-2022 Plain x-ray of pelvi s and lower extremity Dr. Josef Garcia Work Phone: Start: 10-14-[address] Ede Garcia Work Phone: Start: 09-09-2022 Plain chest X-ray Dr. Gregorio Garcia Work Phone: Start: 03-26-2022 CT of abdomen and pe lvis without contrast Start: 12-26-2021 CT of chest Start: 07-06-2019 Colonoscopy Zia reyes MD Work Phone: Start: 05-27-2017 End: 05-27-2017 Program eval implantable in persn dual ld pacer Foster Malik MD Start: 12-18-2016 End: 12-18-2016 Program eval implantable in persn dual ld pacer Houstonjeimy Malik MD Start: 12-18-2016 End: 12-18-2016 Pm device progr eval, dual Houstonjeimy Malik MD Start: 09-15-2014 End: 09-18-2014 Interrogation eval remote 90 d 1/2/hospice executive director lead pm Coni Justin PA-C Work Phone: Start: 09-15-2014 End: 09-18-2014 Pm device interrogate remote Coni Justin PA-C Work Phone: Start: 12-13-2013 End: 12-13-2013 Interrogation eval remote 90 d 1/2/hospice executive director lead pm Foster Malik MD Start: 12-13-2013 End: 12-13-2013 Pm device interrogate remote Foster arango MD Start: 08-31-2013 End: 08-31-2013 Program eval implantable in persn dual ld pacer Foster Malik MD Start: 08-31-2013 End: 08-31-2013 Pm device progr eval, dual Foster Malik MD Start: 08-17-2013 End: 08-17-2013 Follow Up Appt 6 months Iwona Arana Start: 08-17-2013 End: 08-17-2013 MMIwona Malik MD Start: 08-17-2013 End: 08-17-2013 Documentation of current medications Kassidy Farnsworth RN Start: 08-17-2013 End: 08-17-2013 Smoking cessation education Young Angulo Start: 08-17-2013 End: 08-17-2013 Follow Up Appt 6 months Iwona Arana Start: 08-17-2013 End: 08-17-2013 ANSON Malik MD Start: 2013 End: 08-17-2013 Follow Up Appt 3 months Iwona Arana Start: 2013 End: 2013 Nurse, Teaching, Wound Check (no charge) Christel Burger RN Start: 2013 End: 08-17-2013 Pacer Clinic Foster Malik MD Start: 2013 End: 2013 Program eval implantable in persn dual ld pacer Foster Malik MD Start: 2013 End: 08-17-2013 Follow Up Appt 3 months Iwona Arana Start: 2013 End: 2013 Nurse, Teaching, Wound Check (no charge) Christel Burger RN Start: 2013 End: 08-17-2013 Pacer Clinic Foster Malik MD Start: 2013 End: 2013 Pm device progr eval, dual Foster Malik MD Cholecystectomy DR ARACELI MARTINEZ MD Excision of cervical intervertebral disc DR ARACELI MONTES MD History of repair of inguinal hernia H/O inguinal hernia repair Comment on above: x2 Influenza Types A,B Direct FA (JEN) Dr. Josef Garcia Work Phone: Influenza Types A,B Direct FA (JEN) Dr. Josef Garcia Work Phone: Pacemaker catheter, device (physical object) DR ARACELI MONTES MD Respiratory syncytia l virus antigen assay Dr. Josef Garcia Work Phone: Respiratory syncytia l virus antigen assay Dr. Josef Garcia Work Phone: SARS-CoV-2 & FLU Ant igen (Rapid) Umbilical hernia (disorder) DR ARACELI MONTES MD Comment on above: x2 Urine culture Dr. Josef Garcia Work Phone: Viral antigen assay Plan of Treatment Date Care Activity Detail Author Start: 03-29-2028 Diabetes Screening Diabetes Screening [facility] Start: 03-16-2028 Diabetes Screening Diabetes Screening [facility] Start: 03-07-2028 Diabetes Screening Diabetes Screening [facility] Start: 02-18-2028 Diabetes Screening Diabetes Screening [facility] Start: 02-15-2028 Diabetes Screening Diabetes Screening [facility] Start: 02-11-2028 Diabetes Screening Diabetes Screening [facility] Start: 02-08-2028 Diabetes Screening Diabetes Screening [facility] Start: 02-04-2028 Diabetes Screening Diabetes Screening [facility] Start: 02-03-2028 Diabetes Screening Diabetes Screening [facility] Start: 02-01-2028 Diabetes Screening Diabetes Screening [facility] Start: 01-31-2028 Diabetes Screening Diabetes Screening [facility] Start: 01-14-2028 Diabetes Screening Diabetes Screening [facility] Start: 01-11-2028 Diabetes Screening Diabetes Screening [facility] Start: 12-28-2027 Diabetes Screening Diabetes Screening [facility] Start: 12-06-2027 Diabetes Screening Diabetes Screening [facility] Start: 11-22-2027 Diabetes Screening Diabetes Screening [facility] Start: 11-08-2027 Diabetes Screening Diabetes Screening [facility] Start: 10-13-2027 Diabetes Screening Diabetes Screening [facility] Start: 03-30-2027 Diabetes Screening Diabetes Screening [facility] Start: 03-29-2027 Diabetes Screening Diabetes Screening [facility] Start: 03-23-2026 Screening for malignant neoplasm of lung Lung Cancer Screening [facility] Start: 03-16-2026 Screening for malignant neoplasm of lung Lung Cancer Screening [facility] Start: 04-11-2025 End: 04-11-2025 Patient encounter procedure 04/11/2025 1:30 PM EDT Office Visit [facility] [address] [place] [address] Татьяна Hill PA-C [address] [place] [address] f/u ct [facility] Comment on above: f/u ct Start: 04-06-2025 End: 04-06-2025 Patient encounter procedure [facility] Comment on above: Pt not on any blood thinners or diabetic meds to stop Please scan immedi ately after giving oral contrast to assess esophagus Start: 03-20-2025 Influenza vaccination [facility] Start: 03-15-2025 End: 03-15-2025 Patient encounter procedure 03/15/2025 1:30 PM EDT Office Visit [facility] SURGERY [facility]PARTMENT 1 [facility] [address] [place] [address] Renay Cloud MD [address] [place] [address] Post Op Esophagectomy [facility] Comment on above: Post Op Esophagectomy Start: 03-14-2025 End: 06-13-2025 CBC W Auto Differential panel - Blood COMPLETE BLOOD COUNT AND DIFFERENTIAL Lab Routine Malignant neoplasm of lower third of esophagus (HCC) Expected: 03/14/2025, Expires: 06/13/2025 [facility] Comment on above: Expected: 03/14/2025, Expires: Start: 03-14-2025 End: 06-13-2025 Comprehensive metabolic 2000 panel - Serum or Plasma COMPREHENSIVE METABOLIC PANEL Lab Routine Malignant neoplasm of lower third of esophagus (HCC) Expected: 03/14/2025, Expires: 06/13/2025 [facility] Comment on above: Expected: 03/14/2025, Expires: Start: 03-14-2025 End: 06-13-2025 Magnesium [Mass/volume] in Serum or Plasma MAGNESIUM Lab Routine Malignant neoplasm of lower third of esophagus (HCC) Expected: 03/14/2025, Expires: 06/13/2025 [facility] Comment on above: Expected: 03/14/2025, Expires: Start: 03-14-2025 End: 06-13-2025 Phosphate [Mass/volume] in Serum or Plasma PHOSPHORUS INORGANIC Lab Routine Malignant neoplasm of lower third of esophagus (HCC) Expected: 03/14/2025, Expires: 06/13/2025 [facility] Comment on above: Expected: 03/14/2025, Expires: Start: 03-14-2025 End: 03-14-2025 Nutrition therapy 03/14/2025 1:30 PM EDT Education Nutrition [place] [address] [place] [address] Faustina Sánchez, MATEO [address] [place] [address] F/u esophagectomy [facility] Comment on above: F/u esophagectomy Start: 03-08-2025 End: 03-08-2025 Telephone follow-up 03/08/2025 10:00 AM EDT Education Nutrition Therapy [address] [place] [address] Faustina Sánchez, MATEO [address] [place] [address] follow up phone call Nutrition Therapy Comment on above: follow up phone call Start: 02-28-2025 End: 02-28-2025 Admission to same day surgery center [facility] Comment on above: XI ROBOTIC THORACOSCOPIC ESOPHAGECTOMY,I VOR YUNG ESOPHAGECTOMY LAPAROSCOPIC THORACO SCOPIC ESOPHAGECTOMY,FALGUNI YUNG ESOPHAGECTOMY Start: 02-28-2025 End: 02-28-2025 Anesthesia consultation 02/28/2025 7:30 AM EDT Anesthesia Event [address] [address] Ludy Yan, PRODUCT SAFETY TECHNICIAN.COLOR BUFFER [address] [place], [place] [id number] [facility] Start: 02-28-2025 End: 02-28-2025 Esophagectomy distal 2/3 w/laparoscopic moblj [place] OR Start: 02-28-2025 Subsequent hospital visit by physician 02/28/2025 7:30 AM EDT Hospital Encounter [address] [address] Renay Cloud MD 1 [place], [place] [phone] (Fax) 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], Malnutrition of moderate degree (HCC) [E44.0] [facility] Comment on above: Malignant neoplasm of lower third of eso phagus (HCC) [C15.5], Malnutrition of moderate degree (HCC) [E44.0] Start: 02-22-2025 End: 02-22-2025 Patient encounter procedure 02/22/2025 3:15 PM EDT Office Visit [facility] SURGERY DEPARTMENT 1 [facility] 3rd Floor [place], [place] [phone] Renay Cloud MD 1 [place], [place] [phone] (Fax) hosp f/u [facility] Comment on above: hosp f/u Start: 02-21-2025 End: 02-21-2025 Follow-up encounter 02/21/2025 2:30 PM EDT Education Nutrition Therapy [address] [place] [address] Faustina Sánchez, MATEO [address] [place] [address] Follow up esophageal ca Nutrition Therapy Comment on above: Follow up esophageal ca Start: 02-20-2025 End: 02-20-2025 ambulatory 02/20/2025 9:30 AM EDT Infusion Center Hematology/Oncology [address] [place] [address] 2nd Hematology/Oncology Comment on above: 2nd Start: 02-17-2025 End: 02-17-2025 ambulatory 02/17/2025 11:00 AM EDT Infusion Center Hematology/Oncology [address] [place] [address] 2nd Hematology/Oncology Comment on above: 2nd Start: 02-16-2025 End: 02-16-2025 Follow-up encounter 02/16/2025 9:00 AM EDT Education Nutrition Therapy [address] [place] [address] Sánchez RD [address] [place] [address] follow up tube feeding Nutrition Therapy Comment on above: follow up tube feeding Start: 02-14-2025 End: 02-14-2025 Follow-up encounter 02/14/2025 1:30 PM EDT Education Nutrition Therapy [address] [place] [address] Faustina Sánchez, RD [address] [place] [address] follow up jtube w/feeding complications Nutrition Therapy Comment on above: follow up jtube w/feeding complications Start: 02-14-2025 End: 02-14-2025 ambulatory Hematology/Oncology Comment on above: 2nd LAB Start: 02-10-2025 End: 02-10-2025 ambulatory 02/10/2025 10:00 AM EDT Infusion Center Hematology/Oncology [address] [place] [address] 1 L NS/POSS MAG/ K* per Ingrid te 02/09 Hematology/Oncology Comment on above: 1 L NS/POSS MAG/ K* per Ingrid te 02/09 Start: 02-09-2025 End: 02-09-2025 Follow-up encounter 02/09/2025 2:30 PM EDT Education Nutrition Therapy [address] [place] [address] Faustina Sánchez, MATEO [address] [place] [address] follow up call/ Refeeding Syndrome Nutrition Therapy Comment on above: follow up call/ Refeeding Syndrome Start: 02-08-2025 End: 02-08-2025 ambulatory 02/08/2025 10:00 AM EDT Infusion Center Hematology/Oncology [address] [place] [address] FLUIDS/MAG* Hematology/Oncology Comment on above: FLUIDS/MAG* Start: 02-07-2025 End: 02-07-2025 Follow-up encounter 02/07/2025 3:30 PM EDT Education Nutrition Therapy [address] [place] [address] Faustina Sánchez, MATEO [address] [place] [address] follow up jtube w/feeding complications Nutrition Therapy Comment on above: follow up jtube w/feeding complications Start: 02-07-2025 End: 02-07-2025 ambulatory 02/07/2025 3:00 PM EDT Results Only [address] [facility] Laboratory [address] [place] [address] CMP/MAG/PHOS Chris [facility] Laboratory Comment on above: CMP/MAG/PHOS Start: 02-02-2025 End: 02-02-2025 Nutrition therapy 02/02/2025 10:00 AM EDT Education Nutrition Therapy [address] [place] [address] Faustina Sánchez, MATEO [address] [place] [address] new Jtube; post esophagectomy Nutrition Therapy Comment on above: new Jtube; post esophagectomy Start: 02-01-2025 End: 02-01-2025 ambulatory 02/01/2025 4:00 PM EDT Infusion Center Hematology/Oncology [address] [place] [address] Wstr, Lab/Port Sae [facility] [address] [place] [address] DC CADD* Hematology/Oncology Comment on above: DC CADD* Start: 01-31-2025 End: 01-31-2025 ambulatory Hematology/Oncology Comment on above: 2ND FLOOR DC CADD/fulphila Start: 01-30-2025 End: 01-30-2025 ambulatory 01/30/2025 9:30 AM EDT Infusion Center Hematology/Oncology [address] [place] [address] Q2WK FLOT(PORT)*add on per sec. chat Hematology/Oncology Comment on above: Q2WK FLOT(PORT)*add on per sec. chat Start: 01-27-2025 End: 01-27-2025 Admission to same day surgery center [facility] Comment on above: XI ROBOTIC THORACOSCOPIC ESOPHAGECTOMY,I VOR YUNG ESOPHAGECTOMY LAPAROSCOPIC JEJUNOS JATIN TUBE Start: 01-27-2025 End: 01-27-2025 Anesthesia consultation 01/27/2025 8:00 AM EDT Anesthesia Event [address] [address] Ludy Yan, PRODUCT SAFETY TECHNICIAN.[facility] 1 [place] [address] [facility] Start: 01-27-2025 End: 01-27-2025 Esophagectomy distal 2/3 w/laparoscopic moblj XI ROBOTIC THORACOSCOPIC ESOPHAGECTOMY,FALGUNI YUNG ESOPHAGECTOMY Malignant neoplasm of lower third of esophagus (HCC) Malnutrition of moderate degree (HCC) 01/27/2025 8:00 AM EDT [place] OR Start: 01-27-2025 End: 01-27-2025 Laparoscopy surgical jejunostomy LAPAROSCOPIC JEJUNOSTOMY Malnutrition of moderate degree (HCC) Malignant neoplasm of lower third of esophagus (HCC) 01/27/2025 8:00 AM EDT [place] OR Start: 01-27-2025 Subsequent hospital visit by physician [facility] Comment on above: Malignant neoplasm of lower third of eso phagus (HCC) [C15.5], Malnutrition of moderate degree (HCC) [E44.0] Malnutrition of mode rate degree (HCC) [E44.0], 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] Start: 01-19-2025 End: 01-19-2025 Admission to same day surgery center 01/19/2025 8:00 AM EDT - 01/19/2025 10:00 AM EDT Surgery Admitting [address] [place] [address] [place] [address] [place] [id number] BRONCHOSCOPY FLEXIBLE ADULT Admitting Comment on above: BRONCHOSCOPY FLEXIBLE ADULT Start: 01-19-2025 End: 01-19-2025 [facility] incl fluor gdnce dx w/cell washg spx PULM LAB H23 Start: 01-19-2025 Subsequent hospital visit by physician 01/19/2025 8:00 AM EDT Hospital Encounter Admitting [address] [place] [address] Willem Sanchez MD [address] [place] [address] 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 Hematology/Oncology [address] [place], [place] [phone] 2ND FLOOR Hematology/Oncology Comment on above: 2ND FLOOR Start: 01-13-2025 End: 01-13-2025 ambulatory 01/13/2025 2:20 PM EDT PAT Pre Surgical Testing [address] [place] [address] XI ROBOTIC THORACOSCOPIC ESOPHAGECTOMY,FALGUNI YUNG ESOPHAGECTOMY Pre Surgical Testing Comment on above: XI ROBOTIC THORACOSCOPIC ESOPHAGECTOMY,I VOR YUNG ESOPHAGECTOMY Start: 01-13-2025 End: 01-13-2025 Anesthesia consultation 01/13/2025 2:20 PM EDT PAT Pre Surgical Testing [address] [place] [address] SOC- Chart reviewed by anesthesia Dr. Lockwood and Nora. See PAT COMMENTS Pre Surgical Testing Comment on above: SOC- Chart reviewed by anesthesia Dr. Yudith Hines. See PAT COMMENTS Start: 01-13-2025 End: 01-13-2025 Telephone encounter 01/13/2025 2:20 PM EDT PAT Pre Surgical Testing [address] [place] [address] SOC- Chart reviewed by anesthesia Dr. Lockwood. See telephone encounter 01-02-25. Needs Pulm and cardiac Clearance Pre Surgical Testing Comment on above: SOC- Chart reviewed by anesthesia Dr. Yudith rashid. See telephone encounter 01-02-25. Needs Pulm and cardiac Clearance Start: 01-13-2025 End: 01-13-2025 Patient encounter procedure 01/13/2025 1:00 PM EDT Office Visit Pulmonary Medicine [address] [place] [address] Ashlie Rivera MD 1 [place] [address] New Consultation Pulmonary Medicine Comment on above: New Consultation Start: 01-10-2025 End: 04-11-2025 CBC W Auto Differential panel - Blood COMPLETE BLOOD COUNT AND DIFFERENTIAL Lab STAT Malignant neoplasm of lower third of esophagus (HCC) Expected: 01/10/2025 (Approximate), Expires: 04/11/2025 [facility] Work Phone: Comment on above: Expected: 01/10/2025 (Approximate), Expi res: 04/11/2025 Start: 01-10-2025 End: 04-11-2025 Comprehensive metabolic 2000 panel - Serum or Plasma COMPREHENSIVE METABOLIC PANEL Lab STAT Malignant neoplasm of lower third of esophagus (HCC) Expected: 01/10/2025 (Approximate), Expires: 04/11/2025 [facility] Comment on above: Expected: 01/10/2025 (Approximate), Expi res: 04/11/2025 Start: 01-10-2025 End: 01-10-2025 ambulatory Hematology/Oncology Comment on above: 2ND FLOOR CBC/CMP* OV/ PER TE 01/06* CBC/CMP(S)* Start: 01-06-2025 End: 01-06-2025 ambulatory 01/06/2025 9:30 AM EDT Infusion Center Hematology/Oncology [address] [place] [address] 2ND FLOOR Hematology/Oncology Comment on above: 2ND FLOOR Start: 01-05-2025 [facility] Start: 01-05-2025 [facility] Start: 01-04-2025 End: 01-04-2025 ambulatory [facility] Comment on above: Malignant neoplasm of lower third of eso phagus (HCC) [C15.5] Start: 01-03-2025 End: 01-03-2025 ambulatory 01/03/2025 1:30 PM EDT Infusion Center Hematology/Oncology [address] [place] [address] 2ND FLOOR Hematology/Oncology Comment on above: 2ND FLOOR Start: 01-02-2025 End: 04-03-2025 C reactive protein [Mass/volume] in Serum or Plasma C-REACTIVE PROTEIN Lab Routine Anemia, unspecified type Expected: 01/02/2025, Expires: 04/03/2025 [facility] Comment on above: Expected: 01/02/2025, Expires: Start: 01-02-2025 End: 04-03-2025 CBC panel - Blood by Automated count COMPLETE BLOOD COUNT Lab Routine Anemia, unspecified type Expected: 01/02/2025, Expires: 04/03/2025 [facility] Work Phone: Comment on above: Expected: 01/02/2025, Expires: Start: 01-02-2025 End: 04-03-2025 Ferritin [Mass/volume] in Serum or Plasma FERRITIN Lab Routine Anemia, unspecified type Expected: 01/02/2025, Expires: 04/03/2025 [facility] Comment on above: Expected: 01/02/2025, Expires: Start: 01-02-2025 End: 04-03-2025 Iron and Iron binding capacity panel - Serum or Plasma IRON AND TIBC Lab Routine Anemia, unspecified type Expected: 01/02/2025, Expires: 04/03/2025 [facility] Comment on above: Expected: 01/02/2025, Expires: Start: 12-30-2024 End: 12-30-2024 ambulatory 12/30/2024 4:00 PM EDT Infusion Center Hematology/Oncology [address] [place] [address] Wstr, Lab/[place] [facility] [address] [place] [address] D2 DC CADD/NEULASTA* Hematology/Oncology Comment on above: D2 DC CADD/NEULASTA* Start: 12-29-2024 End: 12-29-2024 ambulatory 12/29/2024 9:00 AM T Infusion Center Hematology/Oncology [address] [place] [address] Q2WK FLOT(PORT)4-4/LAB&OV 10* Hematology/Oncology Comment on above: Q2WK FLOT(PORT)4-4/LAB&OV 12/27* Start: 12-28-2024 End: 03-29-2025 Basic metabolic 2000 panel - Serum or Plasma BASIC METABOLIC PANEL Lab Routine Preoperative examination Malignant neoplasm of lower third of esophagus (HCC) Malnutrition of moderate degree (HCC) Expected: 12/28/2024, Expires: 03/29/2025 [facility] Comment on above: Expected: 12/28/2024, Expires: Start: 12-28-2024 End: 03-29-2025 CBC panel - Blood by Automated count COMPLETE BLOOD COUNT Lab Routine Preoperative examination Malignant neoplasm of lower third of esophagus (HCC) Malnutrition of moderate degree (HCC) Expected: 12/28/2024, Expires: 03/29/2025 [facility] Comment on above: Expected: 12/28/2024, Expires: Start: 12-28-2024 End: 03-29-2025 Comprehensive metabolic 2000 panel - Serum or Plasma COMPREHENSIVE METABOLIC PANEL Lab Routine Preoperative examination Malignant neoplasm of lower third of esophagus (HCC) Malnutrition of moderate degree (HCC) Expected: 12/28/2024, Expires: 03/29/2025 [facility] Comment on above: Expected: 12/28/2024, Expires: Start: 12-28-2024 End: 03-29-2025 CONFIRM BLOOD TYPE CONFIRM BLOOD TYPE Blood Bank Routine Preoperative examination Malignant neoplasm of lower third of esophagus (HCC) Malnutrition of moderate degree (HCC) Expected: 12/28/2024, Expires: 03/29/2025 [facility] Comment on above: Expected: 12/28/2024, Expires: Start: 12-28-2024 End: 03-29-2025 PT panel - Platelet poor plasma by Coagulation assay PROTHROMBIN TIME Lab Routine Preoperative examination Malignant neoplasm of lower third of esophagus (HCC) Malnutrition of moderate degree (HCC) Expected: 12/28/2024, Expires: 03/29/2025 [facility] Comment on above: Expected: 12/28/2024, Expires: Start: 12-28-2024 End: 12-28-2024 Patient encounter procedure [facility] Comment on above: Soc- HIPEC follow up CT 12/26 SO C 12/28 Start: 12-27-2024 End: 12-27-2024 ambulatory Hematology/Oncology Comment on above: (SO)CBC/CMP(S)(PORT)/OV TODAY* OV(PORT)LAB EARLY/CH EMO 12/29* Start: 12-26-2024 End: 12-26-2024 Patient encounter procedure Mobile PET CT Comment on above: NM PET/CT SKULL-THIGH SUBSEQUENT Start: 12-21-2024 End: 12-21-2024 ambulatory Hematology/Oncology Comment on above: D2 DC CADD* D2 DC CADD/NEULASTA* Start: 12-20-2024 End: 12-20-2024 Follow-up encounter 12/20/2024 11:00 AM EDT Education Nutrition Therapy [address] [place] [address] Faustina Sánchez, RD [address] [place] [address] Follow up; see chairside Nutrition Therapy Comment on above: Follow up; see chairside Start: 12-20-2024 End: 12-20-2024 ambulatory 12/20/2024 8:00 AM EDT Infusion Center Hematology/Oncology [address] [place] [address] Q2WK FLOT(PORT)4-4/LAB&OV 6/3* Hematology/Oncology Comment on above: Q2WK FLOT(PORT)4-4/LAB&OV 6/3* Start: 12-19-2024 End: 12-19-2024 ambulatory Hematology/Oncology Comment on above: CBC/CMP(PORT)OV TODAY* OV(PORT)LAB EARLY/CH EMO 12/20* FLAKITO-ALT W/ESTEBAN (SO)CBC/CMP(S)(PORT) /OV TODAY* Start: 12-14-2024 End: 12-14-2024 ambulatory 12/14/2024 4:00 PM EDT Infusion Center Hematology/Oncology [address] [place] [address] Wstr, Lab/[place] S[place] [facility] [address] [place] [address] D2 DC CADD/NEULASTA* Hematology/Oncology Comment on above: D2 DC CADD/NEULASTA* Start: 12-08-2024 End: 12-08-2024 ambulatory 12/08/2024 4:00 PM EDT Infusion Center Hematology/Oncology [address] [place] [address] Wstr, Lab/[place] [facility] [address] [place] [address] D2 DC CADD/NEULASTA* Hematology/Oncology Comment on above: D2 DC CADD/NEULASTA* Start: 12-07-2024 End: 12-07-2024 ambulatory Hematology/Oncology Comment on above: D2 DC CADD* (SO)CBC/CMP(S)(PORT) /Q2WK FLOT(PORT)3-4/LAB&OV 12/05* Start: 12-06-2024 End: 12-06-2024 Follow-up encounter Nutrition Therapy Comment on above: Follow up; see chairside Start: 12-06-2024 End: 12-06-2024 ambulatory 12/06/2024 10:00 AM EDT Infusion Center Hematology/Oncology [address] [place] [address] Q2WK FLOT(PORT)3-4/LAB&OV 12/05* Hematology/Oncology Comment on above: Q2WK FLOT(PORT)3-4/LAB&OV 12/05* Start: 12-05-2024 End: 12-05-2024 ambulatory Hematology/Oncology Comment on above: CBC/CMP(PORT)OV TODAY* (provider out) (SO)CBC/CMP(S)(PORT) /OV TODAY* Start: 11-23-2024 End: 11-23-2024 ambulatory 11/23/2024 4:00 PM EDT Infusion Center Hematology/Oncology [address] [place] [address] Wstr, Lab/[place] [facility] [address] [place] [address] D2 DC CADD* Hematology/Oncology Comment on above: D2 DC CADD* Start: 11-22-2024 End: 11-22-2024 Patient encounter procedure 11/22/2024 9:00 AM EDT Education Nutrition Therapy [address] [place] [address] Faustina Sánchez, RD [address] [place] [address] CONSULT Nutrition/CHAIRSIDE Nutrition Therapy Comment on above: CONSULT Nutrition/CHAIRSIDE Start: 11-22-2024 End: 11-22-2024 ambulatory 11/22/2024 8:00 AM EDT Infusion Center Hematology/Oncology [address] [place] [address] Q2WK FLOT(PORT)2-4/LAB&OV 11/21* Hematology/Oncology Comment on above: Q2WK FLOT(PORT)2-4/LAB&OV 5/5* Start: 11-21-2024 End: 11-21-2024 Patient encounter procedure 11/21/2024 1:00 PM EDT Office Visit General Surgery [address] [facility] [place] [address] Renay Cloud MD 1 [place], [place] [phone] (Fax) Esophagus adenocarcinoma General Surgery Comment on above: Esophagus adenocarcinoma Start: 11-21-2024 End: 11-21-2024 ambulatory Hematology/Oncology Comment on above: CBC/CMP(PORT)OV TODAY* OV(PORT)LAB EARLY/CH EMO 11/22* CARLITOS Monteiro/ESTEBAN Start: 11-08-2024 End: 11-08-2024 ambulatory Hematology/Oncology Comment on above: D2 DC CADD* D2 D/C CADD* Start: 11-07-2024 End: 11-07-2024 ambulatory Hematology/Oncology Comment on above: STRAIGHTBACK START CBC/CMP/Q2WK FLOT(POR T)1-4* START CBC/CMP/Q2WK F LOT(PORT)1-4* Start: 11-04-2024 End: 11-04-2024 ambulatory 11/04/2024 1:30 PM EDT Infusion Center Hematology/Oncology [address] [place], [place] [phone] Wstr, Sort Line [facility] [address] [place], [place] [phone] CHEMO EDUCATION - FLOT Hematology/Oncology Comment on above: CHEMO EDUCATION - FLOT Start: 11-03-2024 End: 11-03-2024 Admission to same day surgery center 11/03/2024 1:30 PM EDT - 11/03/2024 3:00 PM EDT Surgery [facility] Radiology [address] [place] [address] Bryson Stephenson, DO [address] [place] [address] INSERTION PORT VENOUS ACCESS ADULT [facility] Radiology Comment on above: INSERTION PORT VENOUS ACCESS ADULT Start: 11-03-2024 End: 11-03-2024 Insj tunneled ctr vad w/subq port age 5 yr/> INSERTION PORT VENOUS ACCESS ADULT Malignant neoplasm of lower third of esophagus (HCC) 11/03/2024 1:30 PM EDT [facility] IR Start: 11-03-2024 Subsequent hospital visit by physician 11/03/2024 1:30 PM EDT Hospital Encounter [facility] Radiology [address] [place] [address] Bryson Stephenson, DO [address] [place] [address] 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] [facility] Radiology Comment on above: Malignant neoplasm of lower third of eso phagus (HCC) [C15.5] Start: 10-28-2024 End: 01-27-2025 aPTT in Platelet poor plasma by Coagulation assay ACTIVATED PARTIAL THROMBOPLASTIN TIME Lab Routine Malignant neoplasm of lower third of esophagus (HCC) Expected: 10/28/2024, Expires: 01/27/2025 [facility] Comment on above: Expected: 10/28/2024, Expires: Start: 10-28-2024 End: 01-27-2025 PT panel - Platelet poor plasma by Coagulation assay PROTHROMBIN TIME Lab Routine Malignant neoplasm of lower third of esophagus (HCC) Expected: 10/28/2024, Expires: 01/27/2025 [facility] Comment on above: Expected: 10/28/2024, Expires: Start: 10-28-2024 End: 10-28-2024 ambulatory Hematology/Oncology Comment on above: OV-CT scan 10/21 & PET scan 10/25* OV-Discuss treatment * Start: 10-27-2024 End: 01-26-2025 PT panel - Platelet poor plasma by Coagulation assay PROTHROMBIN TIME Lab Routine Malignant neoplasm of lower third of esophagus (HCC) Expected: 10/27/2024, Expires: 01/26/2025 [facility] Work Phone: Comment on above: Expected: 10/27/2024, Expires: Start: 10-25-2024 End: 10-25-2024 Patient encounter procedure Mobile PET CT Comment on above: Malignant neoplasm of lower third of eso phagus (HCC) [C15.5] Start: 10-21-2024 End: 10-21-2024 Patient encounter procedure 10/21/2024 10:20 AM EDT Appointment Cat Scan [address] [facility] [place] [place] [address] 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] Cat Scan Comment on above: Malignant neoplasm of lower third of eso phagus (HCC) [C15.5] Start: 09-12-2024 End: 09-12-2024 ambulatory 09/12/2024 10:40 AM EST Visit (SP) Office Hematology/Oncology [address] [place], [place] [address] [place] [address] [place] [address] QUALITY CONTROL REPRESENTATIVE/DX esopageal carcinoma/REF PROV?* Hematology/Oncology Comment on above: QUALITY CONTROL REPRESENTATIVE/DX esopageal carcinoma/REF PROV?* Start: 07-20-2024 Medicare Advantage Annual Wellness Visit Medicare Advantage Annual Wellness Visit [facility] Start: 03-29-2024 End: 03-29-2024 Ins new/rplcmt prm pm w/transv eltrd atrial&vent (NEW IMPLANT DUAL CHAMBER PPM) INSERTION OF A NEW PERMANENT PACEMAKER W/ INSERTION OF NEW TRANSVENOUS ELECTRODE(S) ATRIAL & VENTRICULAR Sick sinus syndrome (HCC) Sinus arrest Carotid sinus hypersensitivity Presence of cardiac pacemaker Malfunction of electrode lead of cardiac pacemaker 03/29/2024 2:30 PM EDT [facility] Start: 03-29-2024 End: 03-29-2024 Rmvl transvns pm eltrd dual lead sys REMOVAL PACEMAKER ELECTRODE DUAL LEAD SYSTEM Sick sinus syndrome (HCC) Sinus arrest Carotid sinus hypersensitivity Presence of cardiac pacemaker Malfunction of electrode lead of cardiac pacemaker 03/29/2024 2:30 PM EDT [facility] Start: 03-29-2024 End: 03-29-2024 Admission to same day surgery center 03/29/2024 7:45 AM EDT - 03/29/2024 3:38 PM EDT Surgery [facility] [address] [place] [address] Zia Zapien MD [address] [place] [address] (Fax) REMOVAL PACEMAKER ELECTRODE DUAL LEAD SYSTEM [facility] Comment on above: REMOVAL PACEMAKER ELECTRODE DUAL LEAD SY STEM Start: 03-29-2024 End: 03-29-2024 Ins new/rplcmt prm pm w/transv eltrd atrial&vent (NEW IMPLANT DUAL CHAMBER PPM) INSERTION OF A NEW PERMANENT PACEMAKER W/ INSERTION OF NEW TRANSVENOUS ELECTRODE(S) ATRIAL & VENTRICULAR Sick sinus syndrome (HCC) Sinus arrest Carotid sinus hypersensitivity Presence of cardiac pacemaker Malfunction of electrode lead of cardiac pacemaker 03/29/2024 7:45 AM EDT [facility] Start: 03-29-2024 End: 03-29-2024 Rmvl transvns pm eltrd dual lead sys REMOVAL PACEMAKER ELECTRODE DUAL LEAD SYSTEM Sick sinus syndrome (HCC) Sinus arrest Carotid sinus hypersensitivity Presence of cardiac pacemaker Malfunction of electrode lead of cardiac pacemaker 03/29/2024 7:45 AM EDT [facility] Start: 03-29-2024 Subsequent hospital visit by physician 03/29/2024 7:45 AM EDT Hospital Encounter [facility] [address] [place] [address] Zia Zapien MD [address] [place] [address] (Fax) Sick sinus syndrome (HCC) [I49.5] [facility] Comment on above: Sick sinus syndrome (HCC) [I49.5] Start: 03-20-2024 Covid-19 Vaccine ( season) Covid-19 Vaccine ( season) [facility] Start: 03-20-2024 Covid-19 Vaccine ( season) Covid-19 Vaccine ( season) [facility] Start: 03-20-2024 Influenza vaccination Influenza Vaccine (#1) [facility] Start: 06-21-2023 [facility] Start: 03-20-2023 Covid-19 Vaccine ( season) Covid-19 Vaccine ( season) [facility] Start: 08-11-2022 FUV, Provider: Aracely Cole, Status: Pen, Time: 8:00 AM FUV, Provider: Aracely Cole, Status: Pen, Time: 8:00 AM FT-Avzqrtp-[id number] Work Phone: Start: 07-06-2022 Screening for malignant neoplasm of colon [facility] Start: 04-11[facility]20[facility]: Aracely Cole, Status: Pen, Time: 11:00 AM [facility]: Aracely Cole, Status: Pen, Time: 11:00 AM KG-Aicqhvq-[id number] Work Phone: Start: 03-26-2022 [facility] Work Phone: Start: 2020 RSV Vaccine (1 - 1-dose 60+ series) RSV Vaccine (1 - 1-dose 60+ series) [facility] Start: 2020 RSV Vaccine (1 - Risk 60-74 years 1-dose series) RSV Vaccine (1 - Risk 60-74 years 1-dose series) [facility] Start: 11-25-2017 End: 11-25-2017 Appointment Appointment [facility] Work Phone: Start: 06-23-2017 End: 06-23-2017 Appointment Appointment [facility] Work Phone: Start: 06-23-2017 End: 06-23-2017 Appointment Appointment [facility] Work Phone: Start: 05-27-2017 End: 05-27-2017 Follow Up Appt 6 months Follow Up Appt 6 months [facility] Work Phone: Start: 05-27-2017 End: 05-27-2017 [facility] Work Phone: Start: 05-27-2017 End: 05-27-2017 Appointment Appointment [facility] Work Phone: Start: 12-18-2016 End: 12-18-2016 Follow Up Appt 6 months Follow Up Appt 6 months [facility] Work Phone: Start: 12-18-2016 End: 12-18-2016 [facility] Work Phone: Start: 12-18-2016 End: 12-18-2016 Appointment [facility] Work Phone: Start: 12-18-2016 End: 12-18-2016 Follow Up Appt 6 months Follow Up Appt 6 months [facility] Work Phone: Start: 12-18-2016 End: 12-18-2016 Pacer Clinic Pacer Clinic [facility] Work Phone: Start: 07-15-2016 Diabetes Screening Diabetes Screening [facility] Start: 2015 Prostate specific antigen measurement Prostate Cancer Screening Discussion [facility] Start: 09-15-2014 End: 09-18-2014 Follow Up Appt 3 months Follow Up Appt 3 months [facility] Work Phone: Start: 09-15-2014 End: 09-18-2014 Pacer Clinic [facility] Work Phone: Start: 09-15-2014 End: 09-18-2014 Follow Up Appt 3 months Follow Up Appt 3 months [facility] Work Phone: Start: 09-15-2014 End: 09-18-2014 Pacer Clinic [facility] Work Phone: Start: 12-13-2013 End: 12-13-2013 Follow Up Appt 3 months Follow Up Appt 3 months [facility] Work Phone: Start: 12-13-2013 End: 12-13-2013 Pacer Clinic Pac[facility] Clinic [facility] Work Phone: Start: 12-13-2013 End: 12-13-2013 Follow Up Appt 3 months Follow Up Appt 3 months [facility] Work Phone: Start: 12-13-2013 End: 12-13-2013 Pacer Clinic Pac[facility] Clinic [facility] Work Phone: Start: 08-31-2013 End: 08-31-2013 Follow Up Appt 3 months Follow Up Appt 3 months [facility] Work Phone: Start: 08-31-2013 End: 08-31-2013 Pacer Clinic Pacer Clinic [facility] Work Phone: Start: 08-31-2013 End: 08-31-2013 Follow Up Appt 3 months Follow Up Appt 3 months [facility] Work Phone: Start: 08-31-2013 End: 08-31-2013 Pacer Clinic Pacer Clinic [facility] Work Phone: Start: 08-17-2013 End: 08-17-2013 Echocardiography Echocardiogram (complete) [facility] Work Phone: Start: 08-17-2013 End: 08-17-2013 Follow Up Appt 6 months Follow Up Appt 6 months [facility] Work Phone: Start: 08-17-2013 End: 08-17-2013 MMM MMM [facility] Work Phone: Start: 08-17-2013 End: 08-17-2013 Echocardiography Echocardiogram (complete) [facility] Work Phone: Start: 08-17-2013 End: 08-17-2013 Follow Up Appt 6 months Follow Up Appt 6 months [facility] Work Phone: Start: 08-17-2013 End: 08-17-2013 MMM MMM [facility] Work Phone: Start: 2013 End: 08-17-2013 Follow Up Appt 3 months Follow Up Appt 3 months [facility] Work Phone: Start: 2013 End: 08-17-2013 Pacer Clinic Pacer Clinic [facility] Work Phone: Start: 2013 End: 08-17-2013 Follow Up Appt 3 months Follow Up Appt 3 months [facility] Work Phone: Start: 2013 End: 08-17-2013 [facility] Work Phone: Start: 2010 Screening for malignant neoplasm of lung Lung Cancer Screening [facility] Start: 2010 Shingrix Vaccine (1 of 2) Shingrix Vaccine (1 of 2) [facility] Start: 2005 Prostate specific antigen measurement Prostate Cancer Screening Discussion [facility] Start: 2005 Screening for malignant neoplasm of colon [facility] Start: 1995 Lipid panel Lipid Screening [facility] Start: 1979 Pneumococcal Vaccine: 50+ (1 of 2 - PCV) Pneumococcal Vaccine: 50+ (1 of 2 - PCV) [facility] Start: 1979 Shingrix Vaccine (1 of 2) Shingrix Vaccine (1 of 2) [facility] Start: 1979 Urine microalbumin profile DTaP,Tdap,Td Vaccine (1 - Tdap) [facility] Start: 1978 Annual PCP Team Chronic Disease Visit Annual PCP Team Chronic Disease Visit [facility] Start: 1978 Anxiety Screening Anxiety Screening [facility] Start: 1978 Depression Screening Depression Screening [facility] Start: 1978 Hepatitis C screening Hepatitis C Screening [facility] Start: 1978 HIV screening HIV Screening [facility] Start: 1966 Pneumococcal vaccination Pneumococcal Vaccine (1 of 2 - PCV) [facility] Start: 1965 Covid-19 Vaccine (#1) Covid-19 Vaccine (#1) [facility] End: 10-28-2025 CBC W Auto Differential panel - Blood COMPLETE BLOOD COUNT AND DIFFERENTIAL Lab STAT Malignant neoplasm of lower third of esophagus (HCC) Every other week for 6 Occurrences starting 10/28/2024 until 10/28/2025 [facility] Work Phone: Comment on above: Every other week for 6 Occurrences start ing 10/28/2024 until 10/28/2025 CBC W Auto Different ial panel - Blood COMPLETE BLOOD COUNT AND DIFFERENTIAL Lab STAT Malignant neoplasm of lower third of esophagus (HCC) 12/27/2024 8:00 AM EDT [facility] Work Phone: End: 10-28-2025 Comprehensive metabolic 2000 panel - Serum or Plasma COMPREHENSIVE METABOLIC PANEL Lab STAT Malignant neoplasm of lower third of esophagus (HCC) Every other week for 6 Occurrences starting 10/28/2024 until 10/28/2025 [facility] Comment on above: Every other week for 6 Occurrences start ing 10/28/2024 until 10/28/2025 End: 02-06-2026 Comprehensive metabolic 2000 panel - Serum or Plasma COMPREHENSIVE METABOLIC PANEL Lab Routine Severe protein-calorie malnutrition (HCC) 4 Occurrences starting 02/06/2025 until 02/06/2026 [facility] Comment on above: 4 Occurrences starting 02/06/2025 until 02/06/2026 End: 04-28-2026 CT Abdomen and Pelvis W contrast IV CT ABD/PEL W IVCON Radiology Routine Esophageal anastomotic leak 1 Occurrences starting 03/29/2025 until 04/28/2026 [facility] Work Phone: Comment on above: 1 Occurrences starting 03/29/2025 until 04/28/2026 End: 04-28-2026 CT Chest W contrast IV CT CHEST W IVCON Radiology Routine Esophageal anastomotic leak 1 Occurrences starting 03/29/2025 until 04/28/2026 [facility] Comment on above: 1 Occurrences starting 03/29/2025 until 04/28/2026 End: 11-11-2025 CT Head W contrast IV CT BRAIN W IVCON Radiology Routine Malignant neoplasm of lower third of esophagus (HCC) 1 Occurrences starting 10/12/2024 until 11/11/2025 [facility] Comment on above: 1 Occurrences starting 10/12/2024 until 11/11/2025 End: 01-10-2026 ECG COMPLETE ECG COMPLETE ECG STAT Pre-op testing 1 Occurrences starting 01/10/2025 until 01/10/2026 [facility] Work Phone: Comment on above: 1 Occurrences starting 01/10/2025 until 01/10/2026 End: 03-30-2026 EGD DIAGNOSTIC EGD DIAGNOSTIC Endoscopy Routine Acquired absence of other specified parts of digestive tract 1 Occurrences starting 03/30/2025 until 03/30/2026 [facility] Work Phone: Comment on above: 1 Occurrences starting 03/30/2025 until 03/30/2026 H&P for surgery H&P FOR SURGERY Procedures Routine Preoperative examination Malignant neoplasm of lower third of esophagus (HCC) Malnutrition of moderate degree (HCC) Ordered: 12/28/2024 [facility] Work Phone: Comment on above: Ordered: 12/28/2024 Ins new/rplcmt prm p m w/transv eltrd atrial&vent (NEW IMPLANT DUAL CHAMBER PPM) INSERTION OF A NEW PERMANENT PACEMAKER W/ INSERTION OF NEW TRANSVENOUS ELECTRODE(S) ATRIAL & VENTRICULAR Sick sinus syndrome (HCC) Sinus arrest Carotid sinus hypersensitivity Presence of cardiac pacemaker Malfunction of electrode lead of cardiac pacemaker [facility] End: 12-21-2025 LUNG DIFFUSION CAPACITY (DLCO) LUNG DIFFUSION CAPACITY (DLCO) PFT Routine Malignant neoplasm of lower third of esophagus (HCC) 1 Occurrences starting 11/21/2024 until 12/21/2025 [facility] Comment on above: 1 Occurrences starting 11/21/2024 until 12/21/2025 LUNG DIFFUSION CAPAC ITY (DLCO) LUNG DIFFUSION CAPACITY (DLCO) PFT Routine Malignant neoplasm of lower third of esophagus (HCC) 01/04/2025 9:45 AM EDT [facility] Work Phone: End: 12-21-2025 LUNG VOLUMES LUNG VOLUMES PFT Routine Malignant neoplasm of lower third of esophagus (HCC) 1 Occurrences starting 11/21/2024 until 12/21/2025 [facility] Comment on above: 1 Occurrences starting 11/21/2024 until 12/21/2025 LUNG VOLUMES LUNG VOLUMES PFT Routine Malignant neoplasm of lower third of esophagus (HCC) 01/04/2025 9:45 AM EDT [facility] Work Phone: End: 02-06-2026 Magnesium [Mass/volume] in Serum or Plasma MAGNESIUM Lab Routine Severe protein-calorie malnutrition (HCC) 4 Occurrences starting 02/06/2025 until 02/06/2026 [facility] Work Phone: Comment on above: 4 Occurrences starting 02/06/2025 until 02/06/2026 Patient Education [facility] Work Phone: Patient referral [facility] Work Phone: End: 11-11-2025 PET+CT Guidance for localization of tumor of Skull base to mid-thigh-- W 18F-FDG IV NM PET/CT SKULL-THIGH INITIAL Radiology Routine Malignant neoplasm of lower third of esophagus (HCC) 1 Occurrences starting 10/12/2024 until 11/11/2025 [facility] Work Phone: Comment on above: 1 Occurrences starting 10/12/2024 until 11/11/2025 End: 12-22-2025 PET+CT Guidance for localization of tumor of Skull base to mid-thigh-- W 18F-FDG IV NM PET/CT SKULL-THIGH SUBSEQUENT Radiology Routine Malignant neoplasm of lower third of esophagus (HCC) 1 Occurrences starting 11/21/2024 until 12/22/2025 [facility] Comment on above: 1 Occurrences starting 11/21/2024 until 12/22/2025 PET+CT Guidance for localization of tumor of Skull base to mid-thigh-- W 18F-FDG IV NM PET/CT SKULL-THIGH SUBSEQUENT Radiology Routine Malignant neoplasm of lower third of esophagus (HCC) 12/26/2024 11:57 AM EDT [facility] Work Phone: End: 02-06-2026 Phosphate [Mass/volume] in Serum or Plasma PHOSPHORUS INORGANIC Lab Routine Severe protein-calorie malnutrition (HCC) 4 Occurrences starting 02/06/2025 until 02/06/2026 [facility] Comment on above: 4 Occurrences starting 02/06/2025 until 02/06/2026 Rmvl transvns pm elt rd dual lead sys REMOVAL PACEMAKER ELECTRODE DUAL LEAD SYSTEM Sick sinus syndrome (HCC) Sinus arrest Carotid sinus hypersensitivity Presence of cardiac pacemaker Malfunction of electrode lead of cardiac pacemaker [facility] End: 12-21-2025 SPIROMETRY WITH DILATOR IF OBSTRUCTED SPIROMETRY WITH DILATOR IF OBSTRUCTED PFT Routine Malignant neoplasm of lower third of esophagus (HCC) 1 Occurrences starting 11/21/2024 until 12/21/2025 [facility] Work Phone: Comment on above: 1 Occurrences starting 11/21/2024 until 12/21/2025 SPIROMETRY WITH DILA TOR IF OBSTRUCTED SPIROMETRY WITH DILATOR IF OBSTRUCTED PFT Routine Malignant neoplasm of lower third of esophagus (HCC) 01/04/2025 9:45 AM EDT [facility] Work Phone: End: 04-06-2026 XR Chest Single view XR CHEST 1V FRONTAL Radiology Routine Malignant neoplasm of lower third of esophagus (HCC) 1 Occurrences starting 03/07/2025 until 04/06/2026 [facility] Work Phone: Comment on above: 1 Occurrences starting 03/07/2025 until 04/06/2026 Payers Date Payer Category Payer Medicare [id number] 2024 Self-pay [id number] 2023 Medicare [id number] 2023 Medicare (Managed Care) 1.2. [id number] 2023 Unknown [id number] 2016 Unknown [id number] 1960 Unknown [id number] 2.16.840.1.181025.3.579.2. 356 1960 Unknown [id number] 2.16.840.1.442210.3.579.2. 1069 1960 Unknown [id number] 2.16.840.1.746126.3.579.2. 1069 1960 Unknown [id number] 2.16.840.1.509541.3.579.2. 1069 1960 Unknown [id number] 2.16.840.1.535030.3.579.2. 1069 1960 Unknown [id number] 2.16.840.1.041143.3.579.2. 106 1960 Unknown [id number] 2.16.840.1.421487.3.579.2. 627 1960 Unknown [id number] 2.16.840.1.587832.3.579.2. 627 1960 Unknown [id number] 2.16.840.1.335269.3.579.2. 627 1960 Unknown [id number] 2.16.840.1.788751.3.579.2. 627 1960 Unknown [id number] 2.16.840.1.275532.3.579.2. 627 Medicare [id number] Unknown [facility] Unknown [id number] 2.16.840.1.636128.3.579.2. 462 Unknown [id number] 2.16.840.1.598224.3.579.2. 462 Unknown [id number] 2.16.840.1.068554.3.579.2. 462 Unknown [id number] 2.16.840.1.097661.3.579.2. 462 Unknown [id number] 2.16.840.1.460503.3.579.2. 462 Unknown [id number] 2.16.840.1.568240.3.579.2. 462 Unknown [id number] 2.16.840.1.751155.3.579.2. 462 Unknown [id number] 2.16.840.1.125164.3.579.2. 462 Unknown [id number] 2.16.840.1.568365.3.579.2. 462 Unknown [id number] 2.16.840.1.768982.3.579.2. 462 Unknown [id number] 2.16.840.1.451745.3.579.2. 462 Unknown [id number] 2.16.840.1.671820.3.579.2. 462 Unknown [id number] 2.16.840.1.190587.3.579.2. 462 Unknown [id number] 2.16.840.1.246747.3.579.2. 462 Unknown [id number] 2.16.840.1.266780.3.579.2. 462 Unknown [id number] 2.16.840.1.095766.3.579.2. 462 Social History Date Type Detail Facility Start: 04-10-2021 End: 06-21-2023 Tobacco smoking status SDIS Unknown if ever smoked [facility] Start: 05-07-2020 Cigarettes [facility] Start: 1960 Sex Assigned At Male W [facility] Start: 06-15-2019 End: 12-29-2024 Caffeine use Caffeine use [facility] Work Phone: Start: 07-14-2013 Rare [facility] Start: 07-14-2013 None [facility] Start: 07-14-2013 Spouse/ Signif icant Other [facility] Start: 06-26-2023 Tobacco smoking status Never s moked tobacco (finding) [facility] Start: 10-17-2024 Tobacco smoking status Heavy t obacco smoker (finding) [facility] Start: 10-12-1974 End: 01-11-2025 Tobacco smoking status NHIS Smokes tobacco daily [facility] Start: 07-20-1974 History of tobacco use Cigarette Smo ker [facility] Start: 06-15-2019 End: 01-11-2025 Tobacco use and exposure Smokeless tobacco non-user [facility] Start: 02-24-2024 End: 12-26-2024 Alcohol intake Current drinker of alcohol (finding) [facility] Start: 02-19-2024 End: 12-29-2024 Tobacco use panel [facility] Work Phone: Start: 06-20-2012 National Score (1-10 0), lower number is lower risk Not on file [facility] Start: 04-22-2010 Alcohol Comment a few times a year C [facility] Start: 1960 Sex Assigned At Not on file C [facility] Has the [employer], or water company threatened to shut off services in your home in past 12Mo No [facility] Work Phone: (I/We) worried whefred er (my/our) food would run out before (I/we) got money to buy more. Never true [facility] Start: 10-15-2024 End: 10-27-2024 Sex Male (finding) [facility] Sexual O[facility] Start: 10-28-2024 Tobacco Comment Pt has cut tsering k to 2-5 cigarettes daily. [facility] Start: 11-21-2024 Tobacco Comment Pt has cut tsering k to 1/2 pack daily. [facility] Start: 12-27-2024 End: 03-22-2025 Alcoholic beverage intake Ex-drinker (finding) [facility] Start: 01-10-2025 Tobacco Comment Pt has cut tsering k to 1/4 pack daily. [facility] How often to you hav e a drink containing alcohol? Never [facility] Medical Equipment Procedure Code Equipment Code Equipment Origin al Text Equipment Identifier Dates Power Injectable Vaccess Ct Plastic 8f Chronoflex Catheter With Kit - [id number] Start: 11-03-2024 Goals Date Patient Goal Desired Activity /State Personal health goal Personal health goal Functional Status Date Assessment Result Facility 03-29-2025 Are you deaf, or do you have serious difficulty hearing No 03/29/2025 10:08 AM Anne Gomez RN No [facility] 03-29-2025 Are you blind, or do you have serious difficulty seeing, even when wearing glasses No 03/29/2025 10:08 AM Anne Gomez RN No [facility] 03-29-2025 Do you have serious difficulty walking or climbing stairs No 03/29/2025 10:08 AM Anne Gomez RN No [facility] 03-29-2025 Do you have difficul ty dressing or bathing No 03/29/2025 10:08 AM Anne Gomez RN No [facility] 03-29-2025 Because of a physica l, mental, or emotional condition, do you have difficulty doing errands alone such as visiting a physician's office or shopping No 03/29/2025 10:08 AM Anne Gomez RN No [facility] 03-07-2025 Are you deaf, or do you have serious difficulty hearing No 03/07/2025 9:56 AM Sonia Shin RN No [facility] 03-07-2025 Are you blind, or do you have serious difficulty seeing, even when wearing glasses No 03/07/2025 9:56 AM Sonia Shin RN No [facility] 03-07-2025 Do you have serious difficulty walking or climbing stairs No 03/07/2025 9:56 AM Sonia Shin RN No [facility] 03-07-2025 Do you have difficul ty dressing or bathing No 03/07/2025 9:56 AM Sonia Shin RN No [facility] 03-07-2025 Because of a physica l, mental, or emotional condition, do you have difficulty doing errands alone such as visiting a physician's office or shopping No 03/07/2025 9:56 AM Sonia Shin RN No [facility] 02-03-2025 Are you deaf, or do you have serious difficulty hearing No 02/03/2025 10:28 AM Coni Belle RN No [facility] 02-03-2025 Are you blind, or do you have serious difficulty seeing, even when wearing glasses No 02/03/2025 10:28 AM Coni Belle, ELIU No [facility] 02-03-2025 Do you have serious difficulty walking or climbing stairs No 02/03/2025 10:28 AM Coni Belle, ELIU No [facility] 02-03-2025 Do you have difficul ty dressing or bathing No 02/03/2025 10:28 AM Coni Belle, ELIU No [facility] 02-03-2025 Because of a physica l, mental, or emotional condition, do you have difficulty doing errands alone such as visiting a physician's office or shopping No 02/03/2025 10:28 AM EDT Coni Rosales, RN No [facility] 01-29-2025 Are you deaf, or do you have serious difficulty hearing No 01/29/2025 3:21 PM EDT Anne Jain, RN No [facility] 01-29-2025 Are you blind, or do you have serious difficulty seeing, even when wearing glasses No 01/29/2025 3:21 PM EDT Anne Jain, RN No [facility] 01-29-2025 Do you have serious difficulty walking or climbing stairs No 01/29/2025 3:21 PM EDT Anne Jain, RN No [facility] 01-29-2025 Do you have difficul ty dressing or bathing No 01/29/2025 3:21 PM EDT Anne Jain, RN No [facility] 01-29-2025 Because of a physica l, mental, or emotional condition, do you have difficulty doing errands alone such as visiting a physician's office or shopping No 01/29/2025 3:21 PM EDT Anne Jain, ELIU No [facility] 10-20-2024 Functional Status Lunch Percent 0 [facility] 10-20-2024 Functional Status Breakfast Percent 100 A [facility] 10-20-2024 Functional Status Room check performed [facility] 10-20-2024 Functional Status [facility] 10-20-2024 Functional Status [facility] 10-19-2024 Functional Status [facility] 10-19-2024 Functional Status Hospital bed [facility] 10-19-2024 Functional Status [facility] 10-19-2024 Functional Status Initiated [facility] 10-19-2024 Functional Status Done [facility] 10-19-2024 Functional Status [facility] 10-18-2024 Functional Status [facility] 10-18-2024 Functional Status [facility] 10-18-2024 Functional Status [facility] 10-18-2024 Functional Status Multilevel home [facility] 10-18-2024 Functional Status Sensory Deficits None A [facility] 10-18-2024 Functional Status [facility] 03-30-2024 Are you deaf, or do you have serious difficulty hearing No 03/30/2024 10:37 AM Mae Ibrahim RN No [facility] 03-30-2024 Are you blind, or do you have serious difficulty seeing, even when wearing glasses No 03/30/2024 10:37 AM Mae Ibrahim RN No [facility] 03-30-2024 Do you have serious difficulty walking or climbing stairs No 03/30/2024 10:37 AM Mae Ibrahim RN No [facility] 03-30-2024 Do you have difficul ty dressing or bathing No 03/30/2024 10:37 AM Mae Ibrahim RN No [facility] 03-30-2024 Because of a physica l, mental, or emotional condition, do you have difficulty doing errands alone such as visiting a physician's office or shopping No 03/30/2024 10:37 AM Mae Ibrahim RN No [facility] 06-26-2023 Functional Status bilateral knee high applied/on [facility] 06-26-2023 Functional Status Maintained, More than 8 hours [facility] Mental Status Date Assessment Result Facility 03-29-2025 Because of a physica l, mental, or emotional condition, do you have serious difficulty concentrating, remembering, or making decisions No 03/29/2025 10:08 AM EDT Anne Jain RN No [facility] 03-07-2025 Because of a physica l, mental, or emotional condition, do you have serious difficulty concentrating, remembering, or making decisions No 03/07/2025 9:56 AM EDT Sonia Caballero RN No [facility] 02-03-2025 Because of a physica l, mental, or emotional condition, do you have serious difficulty concentrating, remembering, or making decisions No 02/03/2025 10:28 AM EDT Coni Rosales, ELIU No [facility] 01-29-2025 Because of a physica l, mental, or emotional condition, do you have serious difficulty concentrating, remembering, or making decisions No 01/29/2025 3:21 PM EDT Anne Jain RN No [facility] 01-05-2025 Cognitive function Level Of Cons ciousness Awake;Alert;Appropriate;Fol lows Commands [facility] Work Phone: 10-20-2024 Mental Status Orientation Oriented x 4 [facility]24 [facility] 10-18-2024 Mental Status Orientation Asse ssment Oriented x 4 [facility] 03-30-2024 Because of a physica l, mental, or emotional condition, do you have serious difficulty concentrating, remembering, or making decisions No 03/30/2024 10:37 AM EDT Mae Joaquin, ELIU No [facility] 06-26-2023 Mental Status Orientation Oriented x 4 [facility] Clinical Notes 03-28-2022 to 05-01-2025 Telephone Encounter - Faustina Mcgee RN - 03/31/2025 10:04 AM EDTTelephone Encounter - Faustina Mcgee RN - 03/31/2025 10:[address] - 03/08/2025 10:09 AM EDT Note Date & Type Note Facility 05-01-2025 Note [facility] 04-25-2025 Note [facility] 04-18-2025 Note [facility] 04-06-2025 Note HNO ID: [id number] Author: HOA HAGAN RT(R) Service: ? Author Type: Technologist Type: Progress Notes Filed: 04/06/2025 16:21 Note Text: Radiology Service Progress Note DATE OF SERVICE: April 06, 2025 TIME: 4:20 PM PATIENT IDENTITY VERIFICATION COMPLETED USING TWO (2) STANDARD IDENTIFIERS: Name and Date of confirmed by patient verbally. FALL SCREENING: Has the patient had 2 falls in the last year or 1 fall with injury or currently using an Ambulatory Assistive Device (Walker, Cane, Wheelchair, Crutches, etc.)? No PATIENT GENDER DATA: Assigned male at PATIENT RELEVANT IMPLANT DATA REVIEWED: Not Applicable PATIENT PRESENTS WITH AN IMPLANTABLE OR ATTACHED SHINGLE CUTTER: No ALLERGIES: Reviewed and unchanged CONTRAST ALLERGY: NO. EXAM: CT -CONTRAST INDUCED NEPHROPATHY RISK FACTORS: Patient age > 60 years CREATININE: Creatinine Date Value Ref Range Status 03/29/2025 0.37 (L) 0.73 - 1.22 mg/dL Final 03/28/2025 0.36 (L) 0.73 - 1.22 mg/dL Final 03/27/2025 0.41 (L) 0.73 - 1.22 mg/dL Final Estimated Glomerular Filtration Rate Date Value Ref Range Status 03/29/2025 125 >=60 mL/min/1.73m? Final Comment: Estimated Glomerular Filtration Rate (eGFR) is calculated using the 2020 CKD-EPI creatinine equation. This equation utilizes serum creatinine, sex, and age as parameters. The creatinine assay has traceable calibration to isotope dilution-mass spectrometry. Refer to KDIGO guidelines for clinical interpretation. In patients with unstable renal function, e.g. those with acute kidney injury, the eGFR may not accurately reflect actual GFR. P.O.C.T. RESULTS: POC done: Yes, See Lab Tab April 06, 2025 TREATMENT: N/A PERIPHERAL IV DATA: Ambulatory: A peripheral IV was started in the Right antecubital site with a Angio cath: 20 gauge. RADIOLOGY DEPARTMENT: CT; Exam(s) Completed: Abdomen/Pelvis and Chest. Anesthesia: No SIGNATURE: RT Annette(R) PATIENT NAME: Bill Estrada DATE: April 06, 2025 TIME: 4:20 PM 04-06-2025 Note HNO ID: [id number] Author: HUMA MARIEE RN Service: ? Author Type: Registered Nurse Type: Nursing Progress Note Filed: 04/06/2025 10:44 Note Text: Dr joni lópez at bedside [facility] 03-31-2025 Telephone encounter Note Department of General Surgery Hepatobiliary and Surgical Oncology Post-Surgical Follow-Up Phone Call Bill Estrada [phone] Surgery/Reason for Hospitalization: Esophagectomy March 31, 2025 10:04 AM Contact made with Patient-Yes Patient identified by name and -Yes My name is Faustina Mcgee RN . I am Dr. Cloud's patient healthcare network pricing consultant. I am calling to check on how you are doing and feeling after surgery, and to see if you have any needs. I am a resource for you as well. If you find you have any questions, concerns, or needs throughout your surgical recovery, please let me know. You can call me directly at [phone]. May I ask you a few questions related to how you've been doing since you left the hospital? Yes General Constitution: How do you feel?: feels well Are you sleeping?: normal Energy level: improving Mentation: awake, alert, and oriented Family/Friends to help patient at home?:yes family ?Activity and ADL S:? Up to bed, chair, ambulating?: Yes Assistive devices?: walker ADL's: Independent CHEST:? SOB-at rest OR with activity?:?Yes Wheezing?:?Denies Coughing/coughing up sputum?:?Denies Use of Incentive Spirometer?: No HEART:? Chest pain: Denies ABDOMEN:? Bloating: Denies Pain: Denies EXTREMITIES:? Swelling: Yes leg bilateral Pain: Denies DIET/ELIMINATION:? Weight loss? no Describe your appetite: only able to have TF nothing PO Nausea: Denies Vomiting: Denies Diarrhea: Denies Constipation: Denies Regular bowel function: Denies Consistency: mushy Blood in stool: Denies Difficulty urinating: Denies Burning with urination: Denies Surgical pain:? Pain: Yes Rate: 6 Location: right side Pain description: aching Medication regimen: oxycodone Pain controlled with medications: Yes Refills Needed: No WOUND/INCISION:? Location: abdomen/back Appearance: denies redness, swelling, or drainage and healing well Dressing: open to air, Other Fever/Chills: Denies G/J-tube: Site Appearance: non-reddened TF s: Nutren 1.5 Supplies: Yes Flushes without difficulty: Yes Abdominal pain with feedings: Denies Corpak: TF issues: No Flushes: Yes Supply/other care concerns:none Anticoagulant: Received: Yes Administration Questions: No Home assistance: No Visiting nurse: No Physical Therapy: No Patient Concerns: none at this time [facility] 09-12-2025 Miscellaneous Notes Department of General Surgery Hepatobiliary and Surgical Oncology Post-Surgical Follow-Up Phone Call Bill Estrada 1960 [id number] Surgery/Reason for Hospitalization: Esophagectomy March 31, 2025 10:04 AM Contact made with Patient-Yes Patient identified by name and -Yes My name is Faustina Mcgee RN . I am Dr. Cloud's patient healthcare network pricing consultant. I am calling to check on how you are doing and feeling after surgery, and to see if you have any needs. I am a resource for you as well. If you find you have any questions, concerns, or needs throughout your surgical recovery, please let me know. You can call me directly at [phone]. May I ask you a few questions related to how you've been doing since you left the hospital? Yes General Constitution: How do you feel?: feels well Are you sleeping?: normal Energy level: improving Mentation: awake, alert, and oriented Family/Friends to help patient at home?:yes family ?Activity and ADL S:? Up to bed, chair, ambulating?: Yes Assistive devices?: walker ADL's: Independent CHEST:? SOB-at rest OR with activity?:?Yes Wheezing?:?Denies Coughing/coughing up sputum?:?Denies Use of Incentive Spirometer?: No HEART:? Chest pain: Denies ABDOMEN:? Bloating: Denies Pain: Denies EXTREMITIES:? Swelling: Yes leg bilateral Pain: Denies DIET/ELIMINATION:? Weight loss? no Describe your appetite: only able to have TF nothing PO Nausea: Denies Vomiting: Denies Diarrhea: Denies Constipation: Denies Regular bowel function: Denies Consistency: mushy Blood in stool: Denies Difficulty urinating: Denies Burning with urination: Denies Surgical pain:? Pain: Yes Rate: 6 Location: right side Pain description: aching Medication regimen: oxycodone Pain controlled with medications: Yes Refills Needed: No WOUND/INCISION:? Location: abdomen/back Appearance: denies redness, swelling, or drainage and healing well Dressing: open to air, Other Fever/Chills: Denies G/J-tube: Site Appearance: non-reddened TF s: Nutren 1.5 Supplies: Yes Flushes without difficulty: Yes Abdominal pain with feedings: Denies Corpak: TF issues: No Flushes: Yes Supply/other care concerns:none Anticoagulant: Received: Yes Administration Questions: No Home assistance: No Visiting nurse: No Physical Therapy: No Patient Concerns: none at this time documented in this encounter [facility] 03-30-2025 Telephone encounter Note Patient previously scoped by Dr Morel, message had NATASHA Gomez in it inquiring about him. Hello, please schedule an EGD in 1 week with me at the hospital. He will need general anesthesia, thank you -- Dr Morel Called pt to schedule. Scheduled for 04/06. Are you on any blood thinners? no Are you on any diabetic medications? no Do you have any allergies? In chart and current [facility] 03-30-2025 Miscellaneous Notes Patient previously scoped by Dr Morel, message had NATASHA Gomez in it inquiring about him. Gisell, please schedule an EGD in 1 week with me at the hospital. He will need general anesthesia, thank you -- Dr Morel Called pt to schedule. Scheduled for 04/06. Are you on any blood thinners? no Are you on any diabetic medications? no Do you have any allergies? In chart and current documented in this encounter [facility] 03-29-2025 Note [facility] 03-29-2025 Note [facility] 03-28-2025 Note [facility] 03-28-2025 Note [facility] 03-28-2025 Note [facility] 03-27-2025 Note [facility] 03-26-2025 Note [facility] 03-26-2025 Note [facility] 03-25-2025 Note [facility] 03-25-2025 Note [facility] 03-25-2025 Note [facility] 03-25-2025 Note [facility] 03-24-2025 Note [facility] 03-24-2025 Note [facility] 03-24-2025 Note [facility] 03-23-2025 Note [facility] 03-22-2025 Note [facility] 03-22-2025 Note [facility] 03-21-2025 Note [facility] 03-20-2025 Note [facility] 03-19-2025 Note [facility] 03-18-2025 Note [facility] 03-17-2025 Note [facility] 03-17-2025 Note [facility] 03-16-2025 Note [facility] 03-15-2025 Note [facility] 03-14-2025 Note [facility] 03[facility]14-2025 Note [facility] 03[facility]14-2025 Note [facility] 03-14-2025 Note [facility] 03-14-2025 Note [facility] 03-13-2025 Note [facility] 03-13-2025 Note [facility] 03-12-2025 Note [facility] 03-12-2025 Note [facility] 03-11-2025 Note [facility] 03-11-2025 Note [facility] 03-11-2025 Note [facility] 03-09-2025 Note Addended by: RENAY CLOUD on: 03/09/2025 02:52 PM Modules accepted: Orders [facility] 03-09-2025 Miscellaneous Notes Addended by: RENAY CLOUD on: 03/09/2025 02:52 PM Modules accepted: Orders Department of General Surgery Hepatobiliary and Surgical Oncology Post-Surgical Follow-Up Phone Call Bill Estrada [id number] Surgery/Reason for Hospitalization:Esophagectomy March 09, 2025 10:51 AM Contact made with Patient-Yes Patient identified by name and -No My name is Faustina Mcgee RN . I am Dr. Cloud's patient healthcare network pricing consultant. I am calling to check on how you are doing and feeling after surgery, and to see if you have any needs. I am a resource for you as well. If you find you have any questions, concerns, or needs throughout your surgical recovery, please let me know. You can call me directly at [phone]. May I ask you a few questions related to how you've been doing since you left the hospital? Yes General Constitution: How do you feel?: feels well Are you sleeping?: not well from rib pain Energy level: improving Mentation: awake, alert, and oriented Family/Friends to help patient at home?:yes spouse ?Activity and ADL S:? Up to bed, chair, ambulating?: Yes Assistive devices?: no assistance ADL's: Independent CHEST:? SOB-at rest OR with activity?:?Denies Wheezing?:?Denies Coughing/coughing up sputum?:?Denies Use of Incentive Spirometer?: Yes HEART:? Chest pain: Denies ABDOMEN:? Bloating: Denies Pain: Denies EXTREMITIES:? Swelling: bilateral feet Pain: Denies DIET/ELIMINATION:? Weight loss? no Describe your appetite: good Nausea: Denies Vomiting: Denies Diarrhea: Denies Constipation: Denies Regular bowel function: Yes Consistency: formed Blood in stool: Denies Difficulty urinating: Denies Burning with urination: Denies Surgical pain:? Pain: Yes Rate: 8 Location: right rib Pain description: aching and sharp Medication regimen: aleve Pain controlled with medications: No Refills Needed: WOUND/INCISION:? Location: abdomen Appearance: denies redness, swelling, or drainage and healing well Dressing: open to air, Other Fever/Chills: Denies G/J-tube: Site Appearance: pulled out slightly and leaks sometimes TF s: Nutren 1.5 Supplies: Yes Flushes without difficulty: Yes Abdominal pain with feedings: Denies Anticoagulant: Received: Yes Administration Questions: Yes Home assistance: No Visiting nurse: No Physical Therapy: No Patient Concerns: none at this time documented in this encounter [facility] 03-09-2025 Telephone encounter Note Department of General Surgery Hepatobiliary and Surgical Oncology Post-Surgical Follow-Up Phone Call Bill Estrada [id number] Surgery/Reason for Hospitalization:Esophagectomy March 09, 2025 10:51 AM Contact made with Patient-Yes Patient identified by name and -No My name is Faustina Mcgee RN . I am Dr. Cloud's patient healthcare network pricing consultant. I am calling to check on how you are doing and feeling after surgery, and to see if you have any needs. I am a resource for you as well. If you find you have any questions, concerns, or needs throughout your surgical recovery, please let me know. You can call me directly at [phone]. May I ask you a few questions related to how you've been doing since you left the hospital? Yes General Constitution: How do you feel?: feels well Are you sleeping?: not well from rib pain Energy level: improving Mentation: awake, alert, and oriented Family/Friends to help patient at home?:yes spouse ?Activity and ADL S:? Up to bed, chair, ambulating?: Yes Assistive devices?: no assistance ADL's: Independent CHEST:? SOB-at rest OR with activity?:?Denies Wheezing?:?Denies Coughing/coughing up sputum?:?Denies Use of Incentive Spirometer?: Yes HEART:? Chest pain: Denies ABDOMEN:? Bloating: Denies Pain: Denies EXTREMITIES:? Swelling: bilateral feet Pain: Denies DIET/ELIMINATION:? Weight loss? no Describe your appetite: good Nausea: Denies Vomiting: Denies Diarrhea: Denies Constipation: Denies Regular bowel function: Yes Consistency: formed Blood in stool: Denies Difficulty urinating: Denies Burning with urination: Denies Surgical pain:? Pain: Yes Rate: 8 Location: right rib Pain description: aching and sharp Medication regimen: aleve Pain controlled with medications: No Refills Needed: WOUND/INCISION:? Location: abdomen Appearance: denies redness, swelling, or drainage and healing well Dressing: open to air, Other Fever/Chills: Denies G/J-tube: Site Appearance: pulled out slightly and leaks sometimes TF s: Nutren 1.5 Supplies: Yes Flushes without difficulty: Yes Abdominal pain with feedings: Denies Anticoagulant: Received: Yes Administration Questions: Yes Home assistance: No Visiting nurse: No Physical Therapy: No Patient Concerns: none at this time [facility] 03-08-2025 Note HNO ID: [id number] Author: FAUSTINA SÁNCHEZ RD Service: ? Author Type: Registered Dietitian Type: Progress Notes Filed: 03/16/2025 16:01 Note Text: Pt did not answer phone visit. Left message to call back. [facility] 03-08-2025 History of Present illness Narrative Pt did not answer phone visit. Left message to call back. documented in this encounter [facility] 03-07-2025 Note [facility] 03-07-2025 Note [facility] 03-06-2025 Note [facility] 03-06-2025 Note [facility] 03-05-2025 Note [facility] 03-04-2025 Note [facility] 03-03-2025 Note [facility] 03-02-2025 Note [facility] 03-01-2025 Note [facility] 03-01-2025 Note [facility] 03-01-2025 Note [facility] 02-28-2025 Note [facility] 02-28-2025 Note [facility] 02-28-2025 Note [facility] 02-22-2025 Note [facility] 02-21-2025 Note [facility] 02-17-2025 Telephone encounter Note tHIS HAS BEEN SCHEDULED DIRECTED. Sheri Tamez [facility] 02-17-2025 Miscellaneous Notes tHIS HAS BEEN SCHEDULED DIRECTED. Sheri Tamez Pt. Declined to stay for electrolyte replacement today. Per Johanny Orellana CNP okay to schedule hydration and electrolyte replacement on Thursday or Thursday. PSR please schedule hydration and Mg for ThursdayFebruary 20 at 0930. Pt. Is aware. Thank you documented in this encounter [facility] 02-17-2025 Telephone encounter Note Pt. Declined to stay for electrolyte replacement today. Per Johanny Orellana CNP okay to schedule hydration and electrolyte replacement on Thursday or Thursday. PSR please schedule hydration and Mg for ThursdayFebruary 20 at 0930. Pt. Is aware. Thank you [facility] 02-17-2025 Note [facility] 02-17-2025 History of Present illness Narrative Pt. Declined to stay for electrolyte replacement. Johanny Orellana CNP notified and okay for hydration and mg on Thursday or Thursday. Pt. Agrees to plan. PSR's notified to schedule pt. documented in this encounter [facility] 02-16-2025 Note [facility] 02-16-2025 History of Present illness Narrative NUTRITION THERAPY ONCOLOGY NOTE Reassessment I have communicated my name and active licensure. The patient's identity and physical location were verified at the time of this visit. Either the patient or their legal field service representative has been informed of the risks and benefits of -- and alternatives to -- treatment through a remote evaluation and consents to proceed with the evaluation remotely. RECOMMENDED MALNUTRITION DIAGNOSIS: SEVERE PROTEIN-CALORIE MALNUTRITION ETIOLOGY: In the context of Chronic Illness or Injury based on: Unintentional Weight Loss: >5% in 1 month Insufficient Energy Intake: Less than 75% energy intake compared to estimated needs for greater than or equal to 1 month Subcutaneous Fat Loss: Severe Loss Muscle Loss Severe Loss Nutrition Diagnosis: Inadequate energy intake related to esophageal cancer and jejunostomy tube placement as evidenced by 19.4% weight loss over 3 months, current intake of 1260 kcal/day, and signs of refeeding syndrome including electrolyte abnormalities and nausea. Nutrition Intervention: Continue Nutren 1.5 via jejunostomy tube Advance EN cautiously to meet estimated needs Monitor and correct electrolytes daily (especially magnesium) Recommend IV fluids if hydration remains suboptimal Collaborate with medical team for anti-nausea management Monitor for signs of refeeding syndrome Multivitamin and Thiamine daily Nutrition Monitoring & Evaluation: Daily weight and intake tracking Monitor serum electrolytes (Mg, K, Phos) Assess tolerance to EN (nausea, swelling) Evaluate hydration status Monitor for edema and signs of fluid overload Reassess nutrition goals weekly HPI: This 64-year-old male with esophageal cancer and a jejunostomy tube has experienced a 19.4% weight loss over 3 months, indicating severe malnutrition. He is currently receiving Nutren 1.5 at 45 mL/hr, providing 1260 kcal and 47 g protein/day, which is below estimated needs. Electrolyte abnormalities and nausea suggest active refeeding syndrome. Intake is compromised by missed overnight feeds and suboptimal hydration. Continued cautious advancement of EN, electrolyte monitoring, and symptom management are essential. IV fluids are recommended pending lab results. Enteral Nutrition Intake Analysis Current Intake: Nutren 1.5 @ 45 mL/hr x 24 hr Volume: 1080 mL/day Calories: 1620 kcal/day Protein: 60.75 g/day Free Water: ~980 mL/day % of Estimated Needs Met (based on current weight): Calories: 1620 / 5823-0962 = 77-92% Protein: 60.75 / 84.2-105.3 = 58-72% kcal/k kcal/kg g/kg protein: 0.87 g/kg Food Insecurity Screening: Food Insecurity: No Food Insecurity (01/31/2025) Hunger Vital Sign Worried About Running Out of Food in the Last Year: Never true Ran Out of Food in the Last Year: Never true Readiness to Learn: Cognitive ability: Alert and oriented Motivation to learn: Eager Family support: Unable to assess - Family not present Instruction provided to: Patient Patient learns best by: Multiple Methods Factors affecting learning: None Physical limitations affecting learning: None Educational materials provided: None this visit Anthropometrics: Height: Last 1 Encounter Ht Readings: Date: Ht: 01/30/2025 157.5 cm (5' 2) Current weight: Last 1 Encounter Wt Readings: Date: Wt: 02/14/2025 70.1 kg (154 lb 8.7 oz) Estimated body mass index is 28.27 kg/m as calculated from the following: Height as of 01/30/25: 157.5 cm (5' 2). Weight as of 02/14/25: 70.1 kg (154 lb 8.7 oz). Resting Metabolic Rate: 1374 Weight Change: Time Frame Weight Change % Change 1 month -18.2 lb -9.6% 3 months -37 lb -19.4% 6 months -45 lb -20.7% 12 months -55 lb -24.2% Estimated Nutritional needs: Weight Type Weight (kg) kcal Needs (25-30 kcal/kg) Protein Needs (1.2-1.5 g/kg) Fluid Needs (35 ml/kg) Current 70.2 kg 0775-3057 kcal/day 84.2-105.3 g/day 2457 ml/day Need for Follow up: weekly Referred/Supervised by: Dr. Cloud/Ingrid BARRT Billing Type: Re-assess 2 units SIGNATURE: Faustina Sánchez RD PATIENT NAME: Bill Estrada DATE: 02/16/2025 documented in this encounter [facility] 02-14-2025 Note [facility] 02-14-2025 History of Present illness Narrative NUTRITION THERAPY ONCOLOGY NOTE Reassessment RRecommended Malnutrition Diagnosis Severe malnutrition, chronic illness-related 64-year-old male with esophageal cancer and jejunostomy tube 19.4% weight loss over 3 months (37 lb) Intake below estimated needs Electrolyte abnormalities consistent with refeeding syndrome Nutrition Diagnosis (PES Statement) Inadequate energy intake related to esophageal cancer and jejunostomy tube placement as evidenced by 19.4% weight loss over 3 months, current intake of 1440 kcal/day, and signs of refeeding syndrome including low magnesium, low albumin, and low total protein. Nutrition Intervention Advance Nutren 1.5 to goal rate of 60 mL/hr via jejunostomy tube Monitor and correct electrolytes, especially magnesium 1L NS administered prior to labs; patient to return Thursday for repeat labs and fluids Encourage consistent water flushes every 1-2 hours Reinforce pump use overnight Collaborate with medical team for anti-nausea management Monitor for signs of refeeding syndrome Nutrition Monitoring and Evaluation Daily weight and intake tracking Monitor serum electrolytes (Mg, K, Phos, Ca, Albumin) Assess tolerance to EN (nausea, swelling) Evaluate hydration status Monitor for edema and signs of fluid overload Reassess nutrition goals weekly Nutrition Assessment This 64-year-old male with esophageal cancer and a jejunostomy tube has experienced a 19.4% weight loss over 3 months, indicating severe malnutrition. He is currently receiving Nutren 1.5 at 40 mL/hr, providing 1440 kcal and 54 g protein/day. Electrolyte abnormalities including low magnesium (1.5), low albumin (2.6), low total protein (5.9), and low calcium (8.2) suggest active refeeding syndrome. 1L NS was administered prior to labs, and the patient will return Thursday for repeat labs and fluids. Intake remains below estimated needs, though water flushes have increased significantly. EN will be advanced to goal rate of 60 mL/hr to meet estimated needs. Continued cautious advancement of EN, electrolyte monitoring, and symptom management are essential. Estimated Nutrition Needs Weight Type Weight (kg) kcal Needs (25-30 kcal/kg) Protein Needs (1.2-1.5 g/kg) Fluid Needs (35 ml/kg) Current 70.0 kg 0324-8037 kcal/day 84-105 g/day 2450 ml/day Admission 97.7 kg 4528-5434 kcal/day 117-146 g/day 3419 ml/day Weight Change Analysis Time Frame Weight Change % Change 1 month -8.2 lb -5.0% 3 months -37 lb -19.4% 6 months -45 lb -20.7% 12 months -55 lb -24.2% Enteral Nutrition Intake Analysis Current Intake: Nutren 1.5 @ 40 mL/hr x 24 hr Volume: 960 mL/day Calories: 1440 kcal/day Protein: 54 g/day Free Water: ~870 mL/day Food Insecurity Screening: Food Insecurity: No Food Insecurity (01/31/2025) Hunger Vital Sign Worried About Running Out of Food in the Last Year: Never true Ran Out of Food in the Last Year: Never true Readiness to Learn: Cognitive ability: Alert and oriented Motivation to learn: Interested Family support: Unable to assess - Family not present Instruction provided to: Patient Patient learns best by: Multiple Methods Factors affecting learning: None Physical limitations affecting learning: None Educational materials provided: None this visit Anthropometrics: Height: Last 1 Encounter Ht Readings: Date: Ht: 01/30/2025 157.5 cm (5' 2) Current weight: Last 1 Encounter Wt Readings: Date: Wt: 02/14/2025 70.1 kg (154 lb 8.7 oz) Estimated body mass index is 28.27 kg/m as calculated from the following: Height as of 01/30/25: 157.5 cm (5' 2). Weight as of an earlier encounter on 02/14/25: 70.1 kg (154 lb 8.7 oz). Resting Metabolic Rate: 1384 Weight Change: Time Frame Weight Change % Change 1 month -8.2 lb -5.0% 3 months -37 lb -19.4% 6 months -45 lb -20.7% 12 months -55 lb -24.2% Current Intake: Nutren 1.5 @ 40 mL/hr x 24 hr Volume: 960 mL/day Calories: 1440 kcal/day Protein: 54 g/day Free Water: ~870 mL/day Recommended Intake: Nutren 1.5 @ 60 mL/hr x 24 hr Volume: 1440 mL/day Calories: 2160 kcal/day Protein: 81 g/day Free Water: ~1310 mL/day % of Estimated Needs Met (based on current weight): Current Intake Calories: 1440 / 5463-4881 = 69-82% Protein: 54 / 84-105 = 51-64% kcal/k.6 kcal/kg g/kg protein: 0.77 g/kg Recommended Intake Calories: 2160 / 4264-5771 = 103-123% Protein: 81 / 84-105 = 77-96% kcal/k.8 kcal/kg g/kg protein: 1.15 g/kg Need for Follow up: 1-2 x per week Referred/Supervised by: Dr. Cloud/Ingrid Orellana MNT Billing Type: Re-assess 2 units SIGNATURE: Faustina Sánchez RD PATIENT NAME: Bill Estrada DATE: 02/14/2025 documented in this encounter [facility] 02-14-2025 Note [facility] 02-14-2025 History of Present illness Narrative Per Dr. Obregon, no labs today; hydration only. 1358: Per top steep tender, labs to be done today. Drawn post hydration. documented in this encounter [facility] 02-10-2025 Note HNO ID: [id number] Author: JERRY SCHWAB RN Service: ? Author Type: Registered Nurse Type: Progress Notes Filed: 02/10/2025 11:58 Note Text: Mag and K are WNL. [facility] 02-10-2025 History of Present illness Narrative Mag and K are WNL. documented in this encounter [facility] 02-09-2025 Telephone encounter Note Spoke w pt and he is scheduled for tomorrow at 10am 02/09. Sheri Tamez [facility] 02-09-2025 Miscellaneous Notes Spoke w pt and he is scheduled for tomorrow at 10am 02/09. Sheri Tamez PSR: Can you please add on for 1L NS possible mag/k for tomorrow? Ingrid Orellana APRN.COLOR BUFFER Ingrid, Patient is currently receiving Nutren 1.5 at 35 mL/hr x 24 hours (840 mL/day) via jejunostomy tube. Intake remains below estimated fluid needs (2447 mL/day), with total daily fluid intake of approximately 975.6 mL/day including formula, water flushes, and Pedialyte. Patient reported nausea (managed with Compazine and Zofran), burping, and missed overnight pump use. No vomiting or signs of fluid overload were noted. Given ongoing risk for refeeding syndrome, suboptimal hydration, and potential for electrolyte shifts, I recommend administering 1 liter of normal saline IV following tomorrow s lab draw to support fluid balance and prevent complications. Please consider repeating electrolytes (Mg, K, Phos) and monitoring renal function prior to infusion. Thank you, Faustina Sánchez documented in this encounter [facility] 02-09-2025 Telephone encounter Note PSR: Can you please add on for 1L NS possible mag/k for tomorrow? Ingrid Orellana APRN.COLOR BUFFER [facility] 02-09-2025 Telephone encounter Note Ingrid, Patient is currently receiving Nutren 1.5 at 35 mL/hr x 24 hours (840 mL/day) via jejunostomy tube. Intake remains below estimated fluid needs (2447 mL/day), with total daily fluid intake of approximately 975.6 mL/day including formula, water flushes, and Pedialyte. Patient reported nausea (managed with Compazine and Zofran), burping, and missed overnight pump use. No vomiting or signs of fluid overload were noted. Given ongoing risk for refeeding syndrome, suboptimal hydration, and potential for electrolyte shifts, I recommend administering 1 liter of normal saline IV following tomorrow s lab draw to support fluid balance and prevent complications. Please consider repeating electrolytes (Mg, K, Phos) and monitoring renal function prior to infusion. Thank you, Faustina Sánchez [facility] 02-09-2025 Note [facility] 02-09-2025 History of Present illness Narrative NUTRITION THERAPY ONCOLOGY NOTE Progress Note I have communicated my name and active licensure. The patient's identity and physical location were verified at the time of this visit. Either the patient or their legal field service representative has been informed of the risks and benefits of -- and alternatives to -- treatment through a remote evaluation and consents to proceed with the evaluation remotely. Recommended Malnutrition Diagnosis Severe Protein-Calorie Malnutrition Etiology: Chronic illness (esophageal cancer), prolonged inadequate intake, and significant weight loss with electrolyte abnormalities and intolerance to enteral nutrition. Nutrition Diagnosis (PES Statement) Inadequate enteral nutrition intake and electrolyte abnormality related to intolerance to enteral nutrition and refeeding syndrome as evidenced by intake <60% of estimated needs, nausea, and low serum magnesium (1.3 mg/dL). Nutrition Intervention: Continue Nutren 1.5 at 35 mL/hr via jejunostomy tube continuously. Monitor tolerance and advance rate by 5 mL every 1-2 days as tolerated until goal of 75 mL/hr x 16 hr/day (cycled feeding) Increase water flushes: 8 x 120 mL syringe = 960 mL/day. Continue Thiamine 100 mg and Multivitamin daily. Use Compazine and Zofran for nausea management. Monitor for signs/symptoms of refeeding syndrome. Nutrition Monitoring & Evaluation: Biochemical Monitoring Phosphorus, Potassium, Magnesium: twice a week for two weeks. Clinical Monitoring Vital signs: every visit Cardiac monitoring: if electrolyte abnormalities persist. Neurological: monitor for confusion, weakness, dizziness. Respiratory: monitor for shortness of breath. Fluid Balance Daily weights Intake/output Signs of fluid overload: swelling, edema, pulmonary symptoms. Nutrition Assessment: Bill Estrada is a 64-year-old male with esophageal cancer and a jejunostomy tube. He has lost 37 lb (19.4%) over 3 months, consistent with severe malnutrition. He is currently receiving Nutren 1.5 at 35 mL/hr, providing 1260 kcal and 47 g protein/day. Electrolyte abnormalities and nausea indicate active refeeding syndrome. Intake remains below estimated needs, and hydration is suboptimal. The patient did not use the pump overnight, which may compromise intake. Anti-nausea medications are in use. Continued cautious advancement of enteral nutrition, electrolyte monitoring, and symptom management are essential. I will recommend IV fluids after labs tomorrow. Patient's Symptoms are: Vomiting: None Nausea: Present, managed with antiemetics Burping: Present Dizziness, swelling, irregular heartbeat, shortness of breath, reduced urination: All denied Enteral Intake: Nutren 1.5 at 35ml/hrx 24hr - had issues with pump turning off last night Water- 3 x syringe 60ml Pedialyte - 2 x syringe 60ml Total Daily Fluid Intake Source Volume (mL) Nutren 1.5 (free water) 675.6 Water flushes 180 Pedialyte flushes 120 Total 975.6 mL/day Feeding pump stopped working overnight - assisted with resetting [employer]. Had pt turn off the intermittent mode that was on. Refeeding risk questions: Do you feel dizzy or lightheaded, especially when standing up? No Have you noticed any swelling in your feet, legs, hands, or face? NO Have you had any episodes of fast or irregular heartbeat? NO Are you short of breath or more breathless than usual during activity or rest? NO Have you been peeing less than usual or noticed darker urine? No Need for Follow up: tomorrow Referred/Supervised by: Dr. Ai BOWER Billing Type: Re-assess 2 units Total Time (mins): 15 SIGNATURE: Faustina Sánchez RD PATIENT NAME: Bill Estrada DATE: February 09, 2025 TIME: 2:39 PM documented in this encounter [facility] 02-08-[address] Faustina Sánchez RD - 02/08/2025 6:03 PM EDT Nutrition Intervention: IV hydration with magnesium replacement on 02/08 Continue to check Mag, Phos, and K twice per week for two weeks Initiate Nutren 1.5 at 35 mL/hr via jejunostomy tube. Advance by 5 mL every 1-2 days until goal rate of 75 mL/hr x 16 hours/day is achieved. Increase water flushes to total 1 liter/day (e.g., 3 x 16 oz water bottles or 1 x 16 oz Pedialyte + 2 x 16 oz water). Supplement with Thiamine 100 mg and Multivitamin daily. Monitor closely for signs/symptoms of refeeding syndrome. Instruct patient to go to the emergency room for excessive emesis. Encourage patient to contact RD if difficulty increasing feeding. documented in this encounter [facility] 02-08-2025 Telephone encounter Note Thank you. Completed for 02/14 [facility] Work Phone: 02-08-2025 Miscellaneous Notes Thank you. Completed for 02/14 He did stop and schedule for tomorrow. Can we add hydration on for 02/14 as well? Please advise on when patient should be scheduled for treatment. Pt had visit with Faustina Sánchez today. Can you please schedule for IV hydration and mag replacement. Orders in Ingrid Orellana APRN.COLOR BUFFER documented in this encounter [facility] 02-07-2025 Telephone encounter Note He did stop and schedule for tomorrow. Can we add hydration on for 02/14 as well? [facility] 02-07-2025 Telephone encounter Note Please advise on when patient should be scheduled for treatment. [facility] 02-07-2025 Telephone encounter Note Pt had visit with Faustina Sánchez today. Can you please schedule for IV hydration and mag replacement. Orders in Ingrid Orellana APRN.COLOR BUFFER [facility] 02-07-2025 Telephone encounter Note Requested Prescriptions Pending Prescriptions Disp Refills oxyCODONE (ROXICODONE) 5 mg/5 mL oral solution 60 mL 0 Sig: Take 10 mL by mouth every 6 hours as needed for pain for up to 7 days. [facility] 02-07-2025 Miscellaneous Notes Requested Prescriptions Pending Prescriptions Disp Refills oxyCODONE (ROXICODONE) 5 mg/5 mL oral solution 60 mL 0 Sig: Take 10 mL by mouth every 6 hours as needed for pain for up to 7 days. documented in this encounter [facility] 02-07-2025 Note [facility] 02-07-2025 History of Present illness Narrative Summary: Refeeding Syndrome Management NUTRITION THERAPY ONCOLOGY NOTE Initial Assessment RECOMMENDED MALNUTRITION DIAGNOSIS: SEVERE PROTEIN-CALORIE MALNUTRITION ETIOLOGIES: In the context of chronic illness (esophageal cancer) with evidence of significant nutrient intake below estimated needs, electrolyte abnormalities, and clinical signs of malnutrition. Nutrition Diagnosis: Inadequate enteral nutrition intake and electrolyte abnormality related to intolerance to enteral nutrition and refeeding syndrome as evidenced by intake <60% of estimated needs, nausea, vomiting, and low serum magnesium (1.3 mg/dL). Nutrition Intervention: IV hydration with magnesium replacement on 02/08 Continue to check Mag, Phos, and K twice per week for two weeks Initiate Nutren 1.5 at 35 mL/hr via jejunostomy tube. Advance by 5 mL every 1-2 days until goal rate of 75 mL/hr x 16 hours/day is achieved. Increase water flushes to total 1 liter/day (e.g., 3 x 16 oz water bottles or 1 x 16 oz Pedialyte + 2 x 16 oz water). Supplement with Thiamine 100 mg and Multivitamin daily. Monitor closely for signs/symptoms of refeeding syndrome. Instruct patient to go to the emergency room for excessive emesis. Encourage patient to contact RD if difficulty increasing feeding. Nutrition Monitoring & Evaluation: Weight status Bowel regulation Hydration status Tolerance to nutrition support (ONS/EN) Biochemical markers (Mg, K, Phos, CO?) Management of nutrition impact symptoms (nausea, vomiting, heartburn) Bill Estrada is a 64-year-old male with esophageal cancer and a newly placed jejunostomy tube. He is currently experiencing refeeding syndrome with low magnesium (1.3 mg/dL) and a history of hypokalemia. He has had difficulty tolerating enteral nutrition, with emesis at low rates and poor hydration. Despite two recent hospitalizations, he has not had access to home health care. Current intake is 948 mL/day, well below estimated needs. The patient is at high risk for refeeding syndrome and requires a cautious advancement of tube feeding. Nutren 1.5 is recommended to improve tolerance and meet nutritional goals. Close monitoring is essential due to ongoing symptoms and metabolic instability. Hydration is suboptimal, and patient remains at risk for dehydration and electrolyte imbalance. Continued advancement of feeding rate and flush volume is recommended to meet nutritional goals and support metabolic stability. Current treatment: [place] Esophagectomy planned on 02/28/25. PMH: Recent Hospitalizations 01/27-01/29/25: Laparoscopic jejunostomy tube placed. Planned esophagectomy postponed due to severe malnutrition. Patient experienced emesis at 10 mL/hr tube feeding rate. Discharged without home care due to unavailability. Tube feeding was held at discharge due to nausea. Labs showed hyponatremia, hypokalemia, and low CO?. Refeeding syndrome was severe, with potassium twila of 3.1 on 02/01 (day 5 of nutrition support). 01/31-02/03/25: Readmitted to initiate tube feedings and arrange home health care. Patient had difficulty advancing feeds and only achieved 30 mL/hr prior to discharge (<60% ENN). Home health care remained unavailable at discharge. Patient's Symptoms are: Nausea Vomiting Heartburn Diet Recall Patient has successfully increased tube feeding rate from 30 mL/hr to 35 mL/hr via continuous pump infusion. At this rate, the patient receives approximately 588 mL/day of formula. Water flushes are currently administered at 60 mL six times per day, totaling 360 mL/day. Combined intake from formula and flushes equals 948 mL/day, which is significantly below estimated fluid needs. Current Enteral Access (and tip placement): Surgical/Endoscopic: Tube Tip Location: Jejunum, Standard Profile, non-balloon Tube connection type: ENFit Attached clamp: No Extension: Levi SINDY Connector Tube placement details if available (ie surgeon, date place/replaced, etc): 01/27/25 Current Tube Feeding Formula:?Isosource 1.5 Current Rate:?Continuous/cycled pump infusion of 35mL/hr x 24 hours (360mL total/day) via pump Current Water Flush (mL x freq):?60mL X 6 per day Current Enteral Modular/Additive: None Current Tolerance:Fair with frequent nausea and unable to obtain goal feeding in the hospital Other formulas tried and not tolerated:?None Recommended Tube Feeding Formula:?Nutren 1.5 Recommended Goal Rate: ?Continuous/cycled pump infusion of 75mL/hr x 16 hours (1200 mL total/day) via pumps Recommended Water Flush (mL x freq): 240 mL X 4 per day Recommendation: Start with 35ml ; advance by 5ml every 1 to 2 days until reach goal rate. Recommended Goal Rate Provides: Calories: 1800 kcal Protein: 81 g Total Water: 912?mL (formula)+960?mL (flushes)=1872?mL/oxr093qX (formula)+960mL (flushes)=1872mL/day Is patient at-risk for refeeding syndrome? Yes: When initiating enteral nutrition for at risk adults, follow ASPEN Consensus Recommendations for Refeeding Syndrome: Start with 10-20 kcal/kg for the first 24 hours; advance by 33% of goal every 1-2 days. (Monitor baseline and repeat labs; ordering provider to replace electrolytes as needed. Start Thiamine 100mg/day and Multivitamin-mineral). Is this a new start or are changes being made to enteral recommendations? No Home Health Care: Unable to obtain [facility] Home [facility]fusion Pharmacy: [facility] Managing Physician/Staff: Dr. Cloud Latest Reference Range & Units 02/07/25 15:09 Magnesium 1.7 - 2.3 mg/dL 1.3 (L) Phosphorus 2.7 - 4.8 mg/dL 2.9 (L): Data is abnormally low Food Insecurity Screening: Food Insecurity: No Food Insecurity (01/31/2025) Hunger Vital Sign Worried About Running Out of Food in the Last Year: Never true Ran Out of Food in the Last Year: Never true Readiness to Learn: Cognitive ability: Alert and oriented Motivation to learn: Eager Family support: High - Very involved in pt care Instruction provided to: Patient and Spouse Patient learns best by: Multiple Methods Factors affecting learning: None Physical limitations affecting learning: None Educational materials provided: Tube Feeding Instructions for Home Anthropometrics: Start weight (11/07/24): 191 lb (86.6 kg) Current weight (01/30/25): 154 lb (69.9 kg) Total weight loss: 37 lb (16.8 kg) Percent weight loss: 19.4% over ~12 weeks Interpretation: Clinically significant weight loss consistent with severe malnutrition Estimated Nutritional needs: Weight Type Actual weight (71.1 kg) Estimated kcal needs 3221-1766 kcal/day (25-30 kcal/kg) Estimated protein needs 85-107 g/day (1.2-1.5 g/kg) Estimated fluid needs 2489 mL/day (35 mL/kg) Nutrition Focused Physical Exam: Subcutaneous Fat Loss Orbital Severe Triceps Severe Mid-axillary at the iliac crest Severe Muscle Loss Locations: Temporalis Severe Pectoralis Severe Deltoids Severe Interosseous Severe Latissimus dorsi, trapezius Severe Quadriceps Severe Gastrocnemius Severe Potential micronutrient deficiency revealed in: Tongue - loss of papillae Teeth - poor dentition Edema: No Ascites: No Assessment of Functional Status: No functional impairment, normal with no limitations Potential Signs of Inflammation: chronic condition Need for Follow up: Weekly Referred/Supervised by: Ingrid BOWER Billing Type: Initial Assess 3 units SIGNATURE: Faustina Sánchez RD PATIENT NAME: Bill Estrada DATE: February 08, 2025 TIME: 4:35 PM documented in this encounter [facility] 02-06-2025 Note Addended by: ТАТЬЯНА HILL on: 02/06/2025 11:39 AM Modules accepted: Orders [facility] 02-06-2025 Miscellaneous Notes Addended by: ТАТЬЯНА HILL on: 02/06/2025 11:39 AM Modules accepted: Orders documented in this encounter [facility] 02-06-2025 Telephone encounter Note Department of General Surgery Hepatobiliary and Surgical Oncology Follow-Up Phone Call G/J-Tube Contact made with Patient-Yes Patient identified by name and -Yes My name is Faustina. I am a Nurse Navigator for Drs. Cloud, Darcy, and Nolan. I am calling to you to let you know that I am a resource for you. If you find you have questions, concerns, or needs throughout your surgical recovery, please let me know. I will call to check on how you are doing/feeling, and to see if you have any needs. Feel free to contact me in [employer] [facility] if you find you have something to ask or a need. You may also call me at [phone]. You have access to social workers, physical/occupational therapists, customer success associate and financial navigators to help you during your cancer/post-surgical treatment (surgical, radiation, chemotherapy, palliative, etc.) to make sure your needs are met. May I ask you a few questions about how you are feeling since you left the hospital? How are you feeling? good Insertion Site Appearance: Redness-No Swelling-No Drainage-No Leaking Around the Tube-No Trouble Flushing the Tube-No Symptoms: N/V with Tube Feeds-Yes, taking Zofran Constipation/Diarrhea-No Abdominal Cramping with Tube Feeds-No FEVER/CHILLS-No Incisional Pain-No Patient Concerns-Rate is 30cc/hr, increasing to 35cc/hr today. Patinet not really sure the TF pump is set up correctly , trying to reach out to company to see if they can contact the patient. [facility] 02-06-2025 Miscellaneous Notes Department of General Surgery Hepatobiliary and Surgical Oncology Follow-Up Phone Call G/J-Tube Contact made with Patient-Yes Patient identified by name and -Yes My name is Faustina. I am a Nurse Navigator for Drs. Cloud, Darcy, and Nolan. I am calling to you to let you know that I am a resource for you. If you find you have questions, concerns, or needs throughout your surgical recovery, please let me know. I will call to check on how you are doing/feeling, and to see if you have any needs. Feel free to contact me in [employer] [facility] if you find you have something to ask or a need. You may also call me at [phone]. You have access to social workers, physical/occupational therapists, customer success associate and financial navigators to help you during your cancer/post-surgical treatment (surgical, radiation, chemotherapy, palliative, etc.) to make sure your needs are met. May I ask you a few questions about how you are feeling since you left the hospital? How are you feeling? good Insertion Site Appearance: Redness-No Swelling-No Drainage-No Leaking Around the Tube-No Trouble Flushing the Tube-No Symptoms: N/V with Tube Feeds-Yes, taking Zofran Constipation/Diarrhea-No Abdominal Cramping with Tube Feeds-No FEVER/CHILLS-No Incisional Pain-No Patient Concerns-Rate is 30cc/hr, increasing to 35cc/hr today. Lexie not really sure the TF pump is set up correctly , trying to reach out to company to see if they can contact the patient. documented in this encounter [facility] 02-03-2025 Telephone encounter Note Call to patient, spoke with , who is with patient. [facility] home [facility] is bringing out supplies today. [facility] patient just spoke with them. She states she has discharge instructions and denies questions at this time. She is expecting Rx written at discharge to be delivered also. She states that her sister is a nurse and is coming by to help. She denies any needs/concerns at this time. Advised to seek medical attention if needed over the weekend. Josephine Mcghee RN [facility] Work Phone: 02-03-2025 Miscellaneous Notes Call to patient, spoke with , who is with patient. [facility] home [facility] is bringing out supplies today. [facility] patient just spoke with them. She states she has discharge instructions and denies questions at this time. She is expecting Rx written at discharge to be delivered also. She states that her sister is a nurse and is coming by to help. She denies any needs/concerns at this time. Advised to seek medical attention if needed over the weekend. Josephine Mcghee RN DISCHARGE CALL BACK Today's date: February 03, 2025 Notified of Pt discharge by: Nanette Patient discharged on 02/03/25 from [facility] to Home with Homecare Nurse Primary Cancer Diagnosis: Esophageal Admitting Diagnosis: Laparoscopic J-tube for nutrition enhancement Discharge Summary/SBAR reviewed: Yes Handoff Discussed with Transitional Sort Line: N/A Psychosocial Risk Factors: None If patient discharged to SNF/Rehab Facility, phone call completed to reinforce discharge instructions and follow up: N/A copied from discharge note: SUMMARY OF WHAT HAPPENED WHILE I WAS IN THE HOSPITAL: Patient presented to the hospital on 01/31 as a direct admit for planned tube feed advancement and home planning. Tube feeds were slowly advanced with intermittent set backs secondary to patient vomiting. He was seen by cardiology who did not recommend any further interventions for optimzation. He was also seen by hematology-oncology for ongoing neoadjuvant chemotherapy which he received on 01/30 prior to admission. On 02/02, a proton-pump inhibitor, sucralfate, and tums were started which helped his nausea with the tube feeds. On 02/03, he was tolerating 30 mL/hour of tube feeds. He was deemed medically ready for discharge with ongoing tube feed advancement and diet optimization through home care. He will be discharged with his proton-pump inhibitor, sucralfate, and tums as those seemed to improve his nausea. Call Disposition: Provider determined patient does not need discharge follow up within [address] Obregon states he will follow up with patient after planned Esophagectomy on 02/28/25 for planning of adjuvant chemotherapy. Patient has follow up with Faustina Sánchez RD on 02/07/25. Marlene Mcghee RN documented in this encounter [facility] 02-03-2025 Telephone encounter Note DISCHARGE CALL BACK Today's date: February 03, 2025 Notified of Pt discharge by: Nanette Patient discharged on 02/03/25 from [facility] to Home with Homecare Nurse Primary Cancer Diagnosis: Esophageal Admitting Diagnosis: Laparoscopic J-tube for nutrition enhancement Discharge Summary/SBAR reviewed: Yes Handoff Discussed with Transitional Sort Line: N/A Psychosocial Risk Factors: None If patient discharged to SNF/Rehab Facility, phone call completed to reinforce discharge instructions and follow up: N/A copied from discharge note: SUMMARY OF WHAT HAPPENED WHILE I WAS IN THE HOSPITAL: Patient presented to the hospital on 01/31 as a direct admit for planned tube feed advancement and home planning. Tube feeds were slowly advanced with intermittent set backs secondary to patient vomiting. He was seen by cardiology who did not recommend any further interventions for optimzation. He was also seen by hematology-oncology for ongoing neoadjuvant chemotherapy which he received on 01/30 prior to admission. On 02/02, a proton-pump inhibitor, sucralfate, and tums were started which helped his nausea with the tube feeds. On 02/03, he was tolerating 30 mL/hour of tube feeds. He was deemed medically ready for discharge with ongoing tube feed advancement and diet optimization through home care. He will be discharged with his proton-pump inhibitor, sucralfate, and tums as those seemed to improve his nausea. Call Disposition: Provider determined patient does not need discharge follow up within [address] Obregon states he will follow up with patient after planned Esophagectomy on 02/28/25 for planning of adjuvant chemotherapy. Patient has follow up with Faustina Sánchez RD on 02/07/25. Marlene Mcghee RN [facility] 02-03-2025 Note [facility] 02-03-2025 Note [facility] 02-02-2025 Telephone encounter Note SW received FMLA forms for pt's son to assist with transportation to treatment, appointments, etc. Forms completed and reviewed with physician. Forms signed by physician and faxed to pt's son's employer. Forms sent to internal scanning. MADISON Costa [facility] 02-02-2025 Miscellaneous Notes SW received FMLA forms for pt's son to assist with transportation to treatment, appointments, etc. Forms completed and reviewed with physician. Forms signed by physician and faxed to pt's son's employer. Forms sent to internal scanning. MADISON Costa documented in this encounter [facility] 02-02-2025 Note [facility] 02-01-2025 Note [facility] 02-01-2025 Note [facility] dical [facility] 01-31-2025 Telephone encounter Note DC/CADD rescheduled to 02/01. Sheri Tamez [facility] 01-31-2025 Miscellaneous Notes DC/CADD rescheduled to 02/01. Sheri Tamez Spoke to patient who is currently as [facility]. He received chemo treatment yesterday and was to come in today to have pump D/C'd and receive pegfilgrastim injection. I discussed with the patient that we will just move his appointment out until tomorrow while he is in [facility]. Patient OK with bringing pump in tomorrow and will call if anything changes. However patient stated he did not want the pegfilgrastim injection d/t side effects. I discussed taking claritin to help reduce side effects and he said that claritin makes him to hyper so he is not able to take that. Discussed this with Dr. Obregon who states if the patient does not want the injection he does not have to take it. PSS's- please cancel lab/port appt today and reschedule for tomorrow for D/C CADD. documented in this encounter [facility] 01-31-2025 Telephone encounter Note Spoke to patient who is currently as [facility]. He received chemo treatment yesterday and was to come in today to have pump D/C'd and receive pegfilgrastim injection. I discussed with the patient that we will just move his appointment out until tomorrow while he is in [facility]. Patient OK with bringing pump in tomorrow and will call if anything changes. However patient stated he did not want the pegfilgrastim injection d/t side effects. I discussed taking claritin to help reduce side effects and he said that claritin makes him to hyper so he is not able to take that. Discussed this with Dr. Obregon who states if the patient does not want the injection he does not have to take it. PSS's- please cancel lab/port appt today and reschedule for tomorrow for D/C CADD. [facility] 01-31-2025 Telephone encounter Note Cardiac Clearance received from [facility] Surgery for Esophagectomy on 03/16/25 Unable to schedule at this time due to no new patient appointments available. Isma Franklin [facility] 01-31-2025 Miscellaneous Notes Cardiac Clearance received from [facility] Surgery for Esophagectomy on 03/16/25 Unable to schedule at this time due to no new patient appointments available. Isma Franklin documented in this encounter [facility] 01-31-2025 Note [facility] 01-30-2025 Note [facility] 01-30-2025 History of Present illness Narrative Patient released from hospital yesterday after J-tube placement. States they were to do the esophagectomy but due to his malnutrition they placed a J-tube and wanted one more chemo treatment in prior to surgery. Rescheduled for February 28, 2025. Pt states that he has not be able to eat but is hopeful the feeding tube will help. Home health is working with the family to provide nutrition and pump for patient. He does not have any supplies at this time. Wt loss noted and dosages will need to be changed for treatment. Pt is 10 fatigue states that he has been in bed for 3 days at the hospital. Pt does want treatment today. States surgeon told him they were discharging him just so he can make his chemotherapy treatment today. [address] [facility] Matilde Feliciano RN documented in this encounter [facility] 01-29-2025 Note [facility] 01-28-2025 Note [facility] 01-28-2025 Note [facility] 01-27-2025 Note [facility] 01-25-2025 Note HNO ID: [id number] Author: MARIA ELENA TIERNEY RN Service: ? Author Type: Registered Nurse Type: Nursing Progress Note Filed: 01/25/2025 09:00 Note Text: Device check last done on 10/24/2024 at [facility]. Results are scanned into chart. [facility] 01-19-2025 Telephone encounter Note Message sent to Dr. Obregon asking if he would be ok to refill this Rx. Order pended. Josephine Mcghee RN [facility] Work Phone: 01-19-2025 Miscellaneous Notes Message sent to Dr. Obregon asking if he would be ok to refill this Rx. Order pended. Josephine Mcghee RN Call placed to [facility]. States Rx was for oxycodone 10/mg/5ml on January 05, dispense 60 ML, 5ml Q 6 hr as needed for pain, given by ER. Was in the Pt asking if this office can refill. Please advise if you would be willing to refill. Had bronch at [facility] today Dr Drew. Has surgery planned with Dr Cloud on 01/27. Teresita Hoffman LPN Pt stopped in and wants refill on liquid pain reliever for his throat refilled, not sure what it was called. Uses [facility] in [place]. Sheri Tamez documented in this encounter [facility] 01-19-2025 Telephone encounter Note Call placed to Misti conroy. States Rx was for oxycodone 10/mg/5ml on January 05, dispense 60 ML, 5ml Q 6 hr as needed for pain, given by ER. Was in the Pt asking if this office can refill. Please advise if you would be willing to refill. Had bronch at [facility] today Dr Drew. Has surgery planned with Dr Cloud on 01/27. Teresita Hoffman LPN [facility] 01-19-2025 Telephone encounter Note Pt stopped in and wants refill on liquid pain reliever for his throat refilled, not sure what it was called. Uses [facility] in [place]. Sheri Tamez [facility] 01-19-2025 Note [facility] 01-19-2025 History and physical note Images from the original note were not included. [facility] CC: Metabolically active right hilar adenopathy Bill Estrada is a 64 year old male sent by Dr. Kemal Obregon for evaluation of possible RIGHT hilar adenopathy. My final recommendations will be communicated to the requesting health care provider by way of the shared medical record for internal providers or letter via the [employer] for external providers. Assessment and Plan 1. Right hilar adenopathy 2. Esophageal cancer 3. Tobacco use disorder 4. COPD 5. H/o dysphagia Plan: 1. Proceed with diagnosotic bronchoscopy EBUS evaluation of RIGHT hilum. Discussed procedure; indications, risks and alternatives. Formal consent obtained. Results to Dr. Obregon 2. Discussed smoking cessation. He is aware of various strategies but prefers to continue on his own 3. Aspiration precautions. HPI: 64 y/o male with a history of esophageal carcinoma and recently identified foci of metabolic activity in the RIGHT hilum. He continues to smoke at least 1/2 pack a day. He has tried to stop in the past but been unsuccessful with Chantix and nicotine replacement. At present there are no new or progressive respiratory complaints. The patient notes no new dyspnea on exertion, cough, purulent sputum production or hemoptysis. There are no fevers, chills, night sweats or weight loss. He does note exertional limitation secondary to LE weakness and generalized fatigue. He reports he is eating well since the stent was placed. He denies coughing with solids or liquids. He did not present for his scheduled pre-procedure H&P at [facility]. There is no personal or family history of difficulty with or complications related to anesthesia. PAST MEDICAL HISTORY Diagnosis Date Abdominal pain, left lower quadrant Arrhythmia Breakdown (mechanical) of cardiac electrode, initial encounter Carotid sinus hypersensitivity COPD (chronic obstructive pulmonary disease) (HCC) Diarrhea Diverticulosis of colon (without mention of hemorrhage) GERD (gastroesophageal reflux disease) Kidney stones Malignant neoplasm of lower third of esophagus (HCC) Malnutrition of moderate degree (HCC) Mobilizes using wheelchair NSTEMI (non-ST elevated myocardial infarction) (HCC) Other specified heart block Presence of cardiac pacemaker 02/16/2024 Restless leg syndrome Sick sinus syndrome (HCC) 02/16/2024 Sinus arrest 02/16/2024 Syncope and collapse PAST SURGICAL HISTORY Procedure Laterality Date ANESTHESIA HERNIA REPAIR LOWER ABDOMEN NOS Umbilical hernia ANTERIOR INTERBODY FUSION, CERVICAL 2007 C4-C5 BASIC PACEMAKER DUAL CHAMBER Left 07/15/2013 [employer] dual-chamber pacemaker system implant; [facility], Dr. Gant CHOLECYSTECTOMY 2007 COLONOSCOPY FLX DX W/COLLJ SPEC WHEN PFRMD 08/20/2005 COLONOSCOPY FLX DX W/COLLJ SPEC WHEN PFRMD 07/06/2019 adenomatous polyps, repeat in 3 years ESOPHAGOGASTRODUODENOSCOPY TRANSORAL DIAGNOSTIC 07/06/2019 [facility], repeat in 3 years IR MEDIPORT INSERT 11/2024 right chest PACEMAKER LEAD INSERTION/REVISION/REMOVAL Left 03/29/2024 SJM/Pradhan system; RV lead extracted and replaced with new RV lead, pacemaker generator changed; old RA lead still in use with excellent function; MRI conditional system; [facility] Dr. Zapien PAST SURGICAL HISTORY OF 09/01/2024 Esophagus Biopsy SURG TX ANAL FISTULA INTERSPHINCTERIC 09/01/2008 anterior fistula FAMILY HISTORY Problem Relation Age of Onset Colon Cancer Mother 80 Hypertension Mother Breast Cancer Sister Breast Cancer Sister Breast Cancer Daughter Social History Tobacco Use Smoking status: Every Day Current packs/day: 0.50 Average packs/day: 0.5 packs/day for 50.3 years (25.1 ttl pk-yrs) Types: Cigarettes Start date: 10/12/1974 Smokeless tobacco: Never Tobacco comments: Pt has cut back to 1/4 pack daily. Vaping Use Vaping status: Never Used Substance Use Topics Alcohol use: Not Currently Comment: a few times a year Drug use: No Current Outpatient Medications Medication Sig Dispense Refill levoFLOXacin (LEVAQUIN) 750 mg tablet Take 750 mg by mouth once daily. prochlorperazine (COMPAZINE) 10 mg tablet Take 1 tablet by mouth every 6 hours as needed for nausea/vomiting. 30 tablet 2 ergocalciferol 50,000 unit capsule (VITAMIN D2, DRISDOL) Take 1 capsule by mouth one time a week. 8 capsule 0 ALBUTEROL INHALATION Inhale as instructed as needed. sucralfate (CARAFATE) 100 mg/mL suspension Take 10 mL by mouth four times daily. (Patient not taking: Reported on 01/10/2025) 500 mL 3 ondansetron (ZOFRAN) 8 mg tablet Take 1 tablet by mouth every 8 hours as needed for nausea/vomiting. 30 tablet 1 dicyclomine (BENTYL) 10 mg capsule Take 1 capsule by mouth three times a day as needed. 30 capsule 0 lidocaine-prilocaine (EMLA) 2.5-2.5 % cream Apply to affected area as needed. 30 g 2 PLAVIX 75 mg tablet Take 75 mg by mouth once daily. HYDROcodone-Acetaminophen (NORCO) 7.5-325 mg per tablet Take 1 tablet by mouth every 6 hours as needed. ANORO ELLIPTA 62.5-25 mcg/actuation inhaler Inhale 1 puff as instructed once daily. omeprazole (PRILOSEC) 20 mg capsule Take 1 capsule by mouth once daily. (Patient not taking: Reported on 01/10/2025) 30 capsule 6 No current facility-administered medications for this visit. ALLERGIES Allergen Reactions Morphine Other: See Comments personality change Percocet [Oxycodone* GI Upset REVIEW OF SYSTEMS See HPI. Gen: There are no fevers, chills, night sweats or weight loss. HEENT: No changes in hearing or vision, no nose bleeds or other nasal problems. Resp: Negative for cough, hemoptysis, wheezing, COPD, dyspnea or shortness of breath. He is not known to snore and has no daytime somnolence. CV: There is no exertional chest pain or palpations. Musc: There are no arthralgias or myalgias. GI/: No trouble moving bowels or bladder noted. No history of dysuria, frequency or incontinence. Heme: No inappropriate bleeding noted. Endo: Negative for cold or heat intolerance, polyuria or polydipsia. Skin: No new or bothersome lesions, rashes or itching. Neuro: The patient has no history of headaches, syncope, paralysis, seizures or tremors. Review of systems is otherwise negative. PHYSICAL EXAMINATION: AFVSS, See procedure encounter for details. General appearance: Well appearing, alert, in no acute distress Ears/Nose/Mouth/Throat: Lips, oral mucosa, and tongue normal. He is edentulous. Posterior oropharynx/palates normal without cobblestoning or erythema. Mallampati score of 2. Neck: Supple, midline trachea, thyroid nontender and non-enlarged. JVD not present at 30 degrees of recline. Lymphatic: No submental, cervical, or axillary adenopathy. Respiratory: There is no asymmetric DTP. Vesicular breath sounds bilaterally, no wheezing, rhonchi or rales appreciated. Diaphragmatic excursion and chest wall symmetry appear equal and normal. No accessory muscle use. Cardiovascular: RRR without gallop, or rubs or murmur. No peripheral edema noted in the upper or lower extremities. Normal temperature of all 4 extremities. Abdomen/GI: Abdomen soft, non-tender, non-distended. No masses or organomegaly noted. No hepatojugular reflux. Musculoskeletal: No clubbing or cyanosis of fingers. Skin:No petechiae, ecchymoses, rash noted. Neuro: Oriented X 3 with normal mood/affect. DATA: I personally reviewed the labs, PFTs and radiographs I reviewed his most recent PET/CT scan images and report, dated 12/26/2024 and compared to 10/25/2024. I agree with the following assessment. The radiologist notes; HEAD AND NECK: Head: No radiotracer avid lesion where imaged. Aerodigestive Tract: No radiotracer avid lesion. Lymph Nodes: No radiotracer avid lymphadenopathy. Neck Soft Tissues: No radiotracer avid thyroid nodule. CHEST: Lungs & Pleura: No radiotracer avid mass, nodule, or consolidation. Calcified granuloma(s). No pleural effusion. Lymph Nodes: New metabolically active right hilar adenopathy. For example: * 1.7 cm right hilar node (SUV 5.0, 3:91) * Additional subcentimeter mediastinal lymph nodes with low level FDG uptake, possibly reactive. Mediastinum: * Esophageal stent traverses the lower third esophagus across the GE junction to terminate in the gastric cardia. * Increasing metabolic active circumferential wall thickening abutting the esophageal stent and increasing soft tissue within the esophageal stent (SUV 9.3, previously 4.9, 3:108). * Similar FDG uptake at the GE junction/gastric cardia the end of the stent (SUV 6.4, previously 6.7, 3:151). Cardiovascular: Blood pool activity. No pericardial effusion. Thoracic aortic and coronary artery calcifications. Chest Wall: No radiotracer avid soft tissue lesion. Right chest wall port with central venous catheter tip in the right atrium. Left chest wall pacemaker with lead tips in right atrial appendage and right ventricle. ABDOMEN AND PELVIS: Hepatobiliary: No radiotracer avid lesion. Spleen: Calcified granulomata. Pancreas: No radiotracer avid lesion. Adrenals: No radiotracer avid nodule. Urinary Tract: Physiologic radiotracer excretion in the renal collecting systems and urinary bladder. GI Tract & Peritoneum: * Esophageal findings discussed above. * Segmentally increased bowel uptake is likely physiologic or secondary to medication effects (e.g. metformin), but does degrade peritoneal assessment. No focal radiotracer avid lesion. * No dilated bowel or ascites. * Colonic diverticulosis. Lymph Nodes: * Metabolically active 1.0 cm short axis precaval node (SUV 3.6, 3:129). * No additional hypermetabolic abdominopelvic lymph nodes. Vasculature: Blood pool activity. Vascular calcifications without an abdominal aortic aneurysm. Pelvic Organs: No radiotracer avid lesion. MUSCULOSKELETAL: Bones: Diffusely increased uptake in the axial and proximal appendicular skeleton. No focal radiotracer avid lytic or sclerotic lesion. Degenerative changes. Soft Tissues: Metabolically active LEFT posterior thigh skin lesion likely related to infected sebaceous cyst. 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 Enlarging soft tissue component within the lower esophageal stent. JORGE LUIS DISEASE: * New metabolically active right hilar and precaval lymphadenopathy. METASTATIC DISEASE: * No metabolically active distant metastases. ADDITIONAL FINDINGS: * Diffusely increased splenic and bone marrow uptake, likely reactive to treatment. LABS: Glucose (mg/dL) Date Value 01/13/2025 88 07/15/2013 99 Potassium Date Value 01/13/2025 3.5 mmol/L 07/15/2013 4.1 mEq/L Sodium Date Value 01/13/2025 135 mmol/L 07/15/2013 140 mEq/L Chloride Date Value 01/13/2025 97 mmol/L 07/15/2013 107 mEq/L CO2 Date Value 01/13/2025 26 mmol/L 07/15/2013 27 mEq/L Creatinine (mg/dL) Date Value 01/13/2025 0.61 07/15/2013 0.76 BUN (mg/dL) Date Value 01/13/2025 10 07/15/2013 12 Anion Gap Date Value 01/13/2025 12 mmol/L 07/15/2013 10 Calcium (mg/dL) Date Value 07/15/2013 8.8 Calcium, Total (mg/dL) Date Value 01/13/2025 8.8 Protein, Total (g/dL) Date Value 01/13/2025 6.8 Albumin (g/dL) Date Value 01/13/2025 3.2 Bilirubin, Total (mg/dL) Date Value 01/13/2025 0.5 Alkaline Phosphatase (U/L) Date Value 01/13/2025 108 AST (U/L) Date Value 01/13/2025 72 ALT (U/L) Date Value 01/13/2025 77 CBC with diff: WBC 9.38 01/13/2025 RBC 4.03 01/13/2025 Hemoglobin 11.3 01/13/2025 Hematocrit 36.0 01/13/2025 MCV 89.3 01/13/2025 MCH 28.0 01/13/2025 MCHC 31.4 01/13/2025 RDW-CV 21.3 01/13/2025 Platelet Count 297 01/13/2025 MPV 10.0 01/13/2025 Neutrophils % 17.0 01/10/2025 Lymphocytes % 31.0 01/10/2025 Monocytes % 48.0 01/10/2025 Eosinophils % 0.2 12/13/2024 Basophils % 0.0 01/10/2025 Abs Neut 0.59 01/10/2025 Abs Newton 1.67 01/10/2025 Abs Eosin 0.00 01/10/2025 Abs Baso 0.00 01/10/2025 Discussed with the patient who agrees to the plan F/u: As needed Wyatt Drew M.D. Staff, Interventional Pulmonology. Pulmonary, Allergy & Critical Care Medicine [facility] 01-19-2025 History and physical note Images from the original note were not included. Respiratory [facility] CC: Metabolically active right hilar adenopathy Bill Estrada is a 64 year old male sent by Dr. Kemal Obregon for evaluation of possible RIGHT hilar adenopathy. My final recommendations will be communicated to the requesting health care provider by way of the shared medical record for internal providers or letter via the [employer] for external providers. Assessment and Plan 1. Right hilar adenopathy 2. Esophageal cancer 3. Tobacco use disorder 4. COPD 5. H/o dysphagia Plan: 1. Proceed with diagnosotic bronchoscopy EBUS evaluation of RIGHT hilum. Discussed procedure; indications, risks and alternatives. Formal consent obtained. Results to Dr. Obregon 2. Discussed smoking cessation. He is aware of various strategies but prefers to continue on his own 3. Aspiration precautions. HPI: 64 y/o male with a history of esophageal carcinoma and recently identified foci of metabolic activity in the RIGHT hilum. He continues to smoke at least 1/2 pack a day. He has tried to stop in the past but been unsuccessful with Chantix and nicotine replacement. At present there are no new or progressive respiratory complaints. The patient notes no new dyspnea on exertion, cough, purulent sputum production or hemoptysis. There are no fevers, chills, night sweats or weight loss. He does note exertional limitation secondary to LE weakness and generalized fatigue. He reports he is eating well since the stent was placed. He denies coughing with solids or liquids. He did not present for his scheduled pre-procedure H&P at [facility]. There is no personal or family history of difficulty with or complications related to anesthesia. PAST MEDICAL HISTORY Diagnosis Date Abdominal pain, left lower quadrant Arrhythmia Breakdown (mechanical) of cardiac electrode, initial encounter Carotid sinus hypersensitivity COPD (chronic obstructive pulmonary disease) (HCC) Diarrhea Diverticulosis of colon (without mention of hemorrhage) GERD (gastroesophageal reflux disease) Kidney stones Malignant neoplasm of lower third of esophagus (HCC) Malnutrition of moderate degree ([facility]) Mobilizes using wheelchair NSTEMI (non-ST elevated myocardial infarction) ([facility]) Other specified heart block Presence of cardiac pacemaker 02/16/2024 Restless leg syndrome Sick sinus syndrome (HCC) 02/16/2024 Sinus arrest 02/16/2024 Syncope and collapse PAST SURGICAL HISTORY Procedure Laterality Date ANESTHESIA HERNIA REPAIR LOWER ABDOMEN NOS Umbilical hernia ANTERIOR INTERBODY FUSION, CERVICAL 2007 C4-C5 BASIC PACEMAKER DUAL CHAMBER Left 07/15/2013 [employer] dual-chamber pacemaker system implant; [facility], Dr. Gant CHOLECYSTECTOMY 2007 COLONOSCOPY FLX DX W/COLLJ SPEC WHEN PFRMD 08/20/2005 COLONOSCOPY FLX DX W/COLLJ SPEC WHEN PFRMD 07/06/2019 adenomatous polyps, repeat in 3 years ESOPHAGOGASTRODUODENOSCOPY TRANSORAL DIAGNOSTIC 07/06/2019 Johnson's, repeat in 3 years IR MEDIPORT INSERT 11/2024 right chest PACEMAKER LEAD INSERTION/REVISION/REMOVAL Left 03/29/2024 [employer] system; RV lead extracted and replaced with new RV lead, pacemaker generator changed; old RA lead still in use with excellent function; MRI conditional system; [facility] Dr. Zapien PAST SURGICAL HISTORY OF 09/01/2024 Esophagus Biopsy SURG TX ANAL FISTULA INTERSPHINCTERIC 09/01/2008 anterior fistula FAMILY HISTORY Problem Relation Age of Onset Colon Cancer Mother 80 Hypertension Mother Breast Cancer Sister Breast Cancer Sister Breast Cancer Daughter Social History Tobacco Use Smoking status: Every Day Current packs/day: 0.50 Average packs/day: 0.5 packs/day for 50.3 years (25.1 ttl pk-yrs) Types: Cigarettes Start date: 10/12/1974 Smokeless tobacco: Never Tobacco comments: Pt has cut back to 1/4 pack daily. Vaping Use Vaping status: Never Used Substance Use Topics Alcohol use: Not Currently Comment: a few times a year Drug use: No Current Outpatient Medications Medication Sig Dispense Refill levoFLOXacin (LEVAQUIN) 750 mg tablet Take 750 mg by mouth once daily. prochlorperazine (COMPAZINE) 10 mg tablet Take 1 tablet by mouth every 6 hours as needed for nausea/vomiting. 30 tablet 2 ergocalciferol 50,000 unit capsule (VITAMIN D2, DRISDOL) Take 1 capsule by mouth one time a week. 8 capsule 0 ALBUTEROL INHALATION Inhale as instructed as needed. sucralfate (CARAFATE) 100 mg/mL suspension Take 10 mL by mouth four times daily. (Patient not taking: Reported on 01/10/2025) 500 mL 3 ondansetron (ZOFRAN) 8 mg tablet Take 1 tablet by mouth every 8 hours as needed for nausea/vomiting. 30 tablet 1 dicyclomine (BENTYL) 10 mg capsule Take 1 capsule by mouth three times a day as needed. 30 capsule 0 lidocaine-prilocaine (EMLA) 2.5-2.5 % cream Apply to affected area as needed. 30 g 2 PLAVIX 75 mg tablet Take 75 mg by mouth once daily. HYDROcodone-Acetaminophen (NORCO) 7.5-325 mg per tablet Take 1 tablet by mouth every 6 hours as needed. ANORO ELLIPTA 62.5-25 mcg/actuation inhaler Inhale 1 puff as instructed once daily. omeprazole (PRILOSEC) 20 mg capsule Take 1 capsule by mouth once daily. (Patient not taking: Reported on 01/10/2025) 30 capsule 6 No current facility-administered medications for this visit. ALLERGIES Allergen Reactions Morphine Other: See Comments personality change Percocet [Oxycodone* GI Upset REVIEW OF SYSTEMS See HPI. Gen: There are no fevers, chills, night sweats or weight loss. HEENT: No changes in hearing or vision, no nose bleeds or other nasal problems. Resp: Negative for cough, hemoptysis, wheezing, COPD, dyspnea or shortness of breath. He is not known to snore and has no daytime somnolence. CV: There is no exertional chest pain or palpations. Musc: There are no arthralgias or myalgias. GI/: No trouble moving bowels or bladder noted. No history of dysuria, frequency or incontinence. Heme: No inappropriate bleeding noted. Endo: Negative for cold or heat intolerance, polyuria or polydipsia. Skin: No new or bothersome lesions, rashes or itching. Neuro: The patient has no history of headaches, syncope, paralysis, seizures or tremors. Review of systems is otherwise negative. PHYSICAL EXAMINATION: AFVSS, See procedure encounter for details. General appearance: Well appearing, alert, in no acute distress Ears/Nose/Mouth/Throat: Lips, oral mucosa, and tongue normal. He is edentulous. Posterior oropharynx/palates normal without cobblestoning or erythema. Mallampati score of 2. Neck: Supple, midline trachea, thyroid nontender and non-enlarged. JVD not present at 30 degrees of recline. Lymphatic: No submental, cervical, or axillary adenopathy. Respiratory: There is no asymmetric DTP. Vesicular breath sounds bilaterally, no wheezing, rhonchi or rales appreciated. Diaphragmatic excursion and chest wall symmetry appear equal and normal. No accessory muscle use. Cardiovascular: RRR without gallop, or rubs or murmur. No peripheral edema noted in the upper or lower extremities. Normal temperature of all 4 extremities. Abdomen/GI: Abdomen soft, non-tender, non-distended. No masses or organomegaly noted. No hepatojugular reflux. Musculoskeletal: No clubbing or cyanosis of fingers. Skin:No petechiae, ecchymoses, rash noted. Neuro: Oriented X 3 with normal mood/affect. DATA: I personally reviewed the labs, PFTs and radiographs I reviewed his most recent PET/CT scan images and report, dated 12/26/2024 and compared to 10/25/2024. I agree with the following assessment. The radiologist notes; HEAD AND NECK: Head: No radiotracer avid lesion where imaged. Aerodigestive Tract: No radiotracer avid lesion. Lymph Nodes: No radiotracer avid lymphadenopathy. Neck Soft Tissues: No radiotracer avid thyroid nodule. CHEST: Lungs & Pleura: No radiotracer avid mass, nodule, or consolidation. Calcified granuloma(s). No pleural effusion. Lymph Nodes: New metabolically active right hilar adenopathy. For example: * 1.7 cm right hilar node (SUV 5.0, 3:91) * Additional subcentimeter mediastinal lymph nodes with low level FDG uptake, possibly reactive. Mediastinum: * Esophageal stent traverses the lower third esophagus across the GE junction to terminate in the gastric cardia. * Increasing metabolic active circumferential wall thickening abutting the esophageal stent and increasing soft tissue within the esophageal stent (SUV 9.3, previously 4.9, 3:108). * Similar FDG uptake at the GE junction/gastric cardia the end of the stent (SUV 6.4, previously 6.7, 3:151). Cardiovascular: Blood pool activity. No pericardial effusion. Thoracic aortic and coronary artery calcifications. Chest Wall: No radiotracer avid soft tissue lesion. Right chest wall port with central venous catheter tip in the right atrium. Left chest wall pacemaker with lead tips in right atrial appendage and right ventricle. ABDOMEN AND PELVIS: Hepatobiliary: No radiotracer avid lesion. Spleen: Calcified granulomata. Pancreas: No radiotracer avid lesion. Adrenals: No radiotracer avid nodule. Urinary Tract: Physiologic radiotracer excretion in the renal collecting systems and urinary bladder. GI Tract & Peritoneum: * Esophageal findings discussed above. * Segmentally increased bowel uptake is likely physiologic or secondary to medication effects (e.g. metformin), but does degrade peritoneal assessment. No focal radiotracer avid lesion. * No dilated bowel or ascites. * Colonic diverticulosis. Lymph Nodes: * Metabolically active 1.0 cm short axis precaval node (SUV 3.6, 3:129). * No additional hypermetabolic abdominopelvic lymph nodes. Vasculature: Blood pool activity. Vascular calcifications without an abdominal aortic aneurysm. Pelvic Organs: No radiotracer avid lesion. MUSCULOSKELETAL: Bones: Diffusely increased uptake in the axial and proximal appendicular skeleton. No focal radiotracer avid lytic or sclerotic lesion. Degenerative changes. Soft Tissues: Metabolically active LEFT posterior thigh skin lesion likely related to infected sebaceous cyst. 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 Enlarging soft tissue component within the lower esophageal stent. JORGE LUIS DISEASE: * New metabolically active right hilar and precaval lymphadenopathy. METASTATIC DISEASE: * No metabolically active distant metastases. ADDITIONAL FINDINGS: * Diffusely increased splenic and bone marrow uptake, likely reactive to treatment. LABS: Glucose (mg/dL) Date Value 01/13/2025 88 07/15/2013 99 Potassium Date Value 01/13/2025 3.5 mmol/L 07/15/2013 4.1 mEq/L Sodium Date Value 01/13/2025 135 mmol/L 07/15/2013 140 mEq/L Chloride Date Value 01/13/2025 97 mmol/L 07/15/2013 107 mEq/L CO2 Date Value 01/13/2025 26 mmol/L 07/15/2013 27 mEq/L Creatinine (mg/dL) Date Value 01/13/2025 0.61 07/15/2013 0.76 BUN (mg/dL) Date Value 01/13/2025 10 07/15/2013 12 Anion Gap Date Value 01/13/2025 12 mmol/L 07/15/2013 10 Calcium (mg/dL) Date Value 07/15/2013 8.8 Calcium, Total (mg/dL) Date Value 01/13/2025 8.8 Protein, Total (g/dL) Date Value 01/13/2025 6.8 Albumin (g/dL) Date Value 01/13/2025 3.2 Bilirubin, Total (mg/dL) Date Value 01/13/2025 0.5 Alkaline Phosphatase (U/L) Date Value 01/13/2025 108 AST (U/L) Date Value 01/13/2025 72 ALT (U/L) Date Value 01/13/2025 77 CBC with diff: WBC 9.38 01/13/2025 RBC 4.03 01/13/2025 Hemoglobin 11.3 01/13/2025 Hematocrit 36.0 01/13/2025 MCV 89.3 01/13/2025 MCH 28.0 01/13/2025 MCHC 31.4 01/13/2025 RDW-CV 21.3 01/13/2025 Platelet Count 297 01/13/2025 MPV 10.0 01/13/2025 Neutrophils % 17.0 01/10/2025 Lymphocytes % 31.0 01/10/2025 Monocytes % 48.0 01/10/2025 Eosinophils % 0.2 12/13/2024 Basophils % 0.0 01/10/2025 Abs Neut 0.59 01/10/2025 Abs Newton 1.67 01/10/2025 Abs Eosin 0.00 01/10/2025 Abs Baso 0.00 01/10/2025 Discussed with the patient who agrees to the plan F/u: As needed Wyatt Drew M.D. Staff, Interventional Pulmonology. Pulmonary, Allergy & Critical Care Medicine [facility] documented in this encounter [facility] 01-13-2025 Instructions Leigh Ann Talavera APRN.COLOR BUFFER - 01/13/2025 2:37 PM EDT PATIENT PREOPERATIVE INSTRUCTIONS Renay Cloud MD has scheduled you for your procedure at this surgery center: [facility]: [phone], [address] [address] Please read below carefully for your personalized instructions. Date of Surgery: 01/27/25 Arrival Time for Surgery: Your surgeon's office will provide you with your arrival time for surgery if they have not done so already. If you do not have your arrival time for surgery by the afternoon the day before your surgery you can call the surgeon's office. If you are scheduled for a Thursday surgery you can call the Thursday before. - Please be aware that emergency situations arise, which may delay or change your surgical time. If this happens, your surgeon's office will notify you as soon as possible and regret any inconvenience. Requirements for vaccination; 72-hour. Between getting vaccine and date of surgery Dietary Restrictions: - No solid food after midnight. - You may have 12 ounces of clear liquids (water, clear juices such as apple juice or gatorade, carbonated beverages, clear tea, black coffee, jello) until 2 hours before scheduled arrival at facility. This is important because if you do, your procedure may be canceled Medications: Pre Surgery Med Instructions Medication instructions ALBUTEROL INHALATION If you normally take this medication in the morning, it is ok to take the morning of surgery with a sip of water. ANORO ELLIPTA 62.5-25 mcg/actuation inhaler If you normally take this medication in the morning, it is ok to take the morning of surgery with a sip of water. ergocalciferol 50,000 unit capsule (VITAMIN D2, DRISDOL) Stop 7 days before surgery. HYDROcodone-Acetaminophen (NORCO) 7.5-325 mg per tablet If you normally take this medication in the morning, it is ok to take the morning of surgery with a sip of water. lidocaine-prilocaine (EMLA) 2.5-2.5 % cream If you normally take this medication in the morning, it is ok to take the morning of surgery with a sip of water. ondansetron (ZOFRAN) 8 mg tablet If you normally take this medication in the morning, it is ok to take the morning of surgery with a sip of water. prochlorperazine (COMPAZINE) 10 mg tablet If you normally take this medication in the morning, it is ok to take the morning of surgery with a sip of water. Blood pressure medications See med list for instructions Take beta issa day of surgery Do not take SINDY or ARB medications day of surgery Weight loss medications Sympathomimetics such as Adipex-P (Phentermine): Stop 4 days before surgery. Contrave (Naltrexone/Bupropion) Hold 2-3 days. Qsymia (Phentermine/Topiramate - Please contact your prescribing provider for Pre op directions. ( depending on the patients dose this medication may need tapered off. They should get pre op directions from their prescribing provider.) GLP-1 Agonists (oral and injectables) Hold 7 days. Blood Thinning Medications: - Stop NSAIDS (Ibuprofen, Advil, Aleve, Motrin, Celebrex, Mobic, etc.) 7 days before surgery, as directed by your surgeon. - You may take Tylenol (Acetaminophen) or any of your current prescribed pain medications that do not contain aspirin or NSAIDS as needed. - If you take any of the following blood thinners, please contact your surgeon and the physician who prescribes it for you in order to get perioperative instructions as soon as possible Blood thinners: Aspirin,Coumadin, Plavix, Eliquis, Pradaxa, Xarelto, Lovenox, Brilinta, Effient, Savaysa, etc. Supplements - Stop Vitamin E, fish oil, Ginko, Lucinda's Wort, flax seed oil, multivitamins, CBD oil, marijuana and other over the counter herbals and dietary supplements 7 days before surgery. This would not apply to cancer patients who are prescribed Marinol or any other prescription form of marijuana or CBD. If you are taking Phentermine please hold 4 days prior to surgery. Diabetes Medications Do not take the morning of surgery; Trajenta, Metformin, Actos/Pioglitazone and Amaryl/Glimepiride. For the following Medications, please HOLD 2 DAYS PRIOR TO SURGERY: Glucotrol/Glipizide, Januvia/Sitagliptin, Glyburide, Prandin/Repaglinide, Starlix/Nateglinide, Symlin/Pramlintide, For the following Medications, please HOLD 3 DAYS PRIOR TO SURGERY: Canagliflozin/Invokana, Dapagliflozin/Farxiga ,Empagliflozin/Jardiance, Invokamet/canagliflozin and metformin, Xigduo XR/ dapagliglozin and metformin, Glyxambi/ empagliflozin and metformin, Syndardy/ empagliflozin and metformin For the following Medications, please HOLD 4 DAYS PRIOR TO SURGERY: Ertugliflozin/Steglatro For the following Medications, please HOLD 7 DAYS PRIOR TO SURGERY: GLP-1 AGONIST: Adlyxin (lixisenatide), Bydureon BCise (exenatide suspension), Byetta (exenatide), Mounjaro (tirzepatide), Ozempic (semaglutide injection), Rybelsus (semaglutide tablets), Tanzeum (albiglutide), Trulicity (dulaglutide), Victoza (liraglutide), Wegovy (semaglutide), Saxenda (liraglutide) Insulin Medication Instructions: Please follow up with the provider that manages your Insulin and how to prepare you for surgery. Pain medications Approved pain medications can be taken the morning of surgery with a sip of water. For methadone instructions call surgeon and physician that prescribes it for pre op instructions. And send message to pharmacist Erectile dysfunction medications If you take any medications for erectile dysfunction-Cialis (Tadalafil), Levitra, Staxyn (Vardenafil) Viagra (Sildenenafil please do not take these for 48 hours before surgery. If you start any new medications after today's visit, please contact the surgeon's office. Important Reminders: - If you use CPAP/BIPAP, bring the machine with you to the hospital if you are scheduled to stay over night. - If you are prescribed inhalers for breathing, continue using them AND bring them to the surgery center. - Candy, mints, gum and tobacco products are NOT permitted the morning of surgery. - Hearing aids, dentures and glasses may be worn the morning of surgery. - NO jewelry, body piercings, makeup, hairpins or contacts are to be worn the day of surgery. - NO lotion, creams, powders or deodorants on the skin the day of surgery - You will need to have someone else (Family or friend) drive you home once discharged from the hospital. You cannot take a cab or Uber. You are not allowed to drive yourself home after surgery. -You will need an adult(over the age of 18) to stay with you for the first 24 hours post surgery or your surgery may be cancelled. Please speak with your surgeon if this is an issue. If you develop symptoms such as a fever, cold, or flu, or have other changes to your health within TWO DAYS of scheduled surgery or the morning of surgery, please contact the surgery center above. Personal Belongings: - Leave ALL valuables and money at home or with family members. - You will need a form of ID and insurance card to check in the morning of surgery. - You will have to wear a hospital gown during your stay but if you wish to bring undergarments for after surgery you may. -If you do not have a copy of advance directives on file with us, please bring a copy with you on the day of surgery. If you already have an Advance Directive, please fax a copy to [phone] or email to for it to be added to your chart. If you do not have an Advance Directive, you can find the appropriate form and more information at [email or web address]. We recommend that you complete the Advance Directive form found on the website and bring it with you the day of your surgery. It can be witnessed and scanned into your chart that day. Please note-you should have a 72-hour period between getting your vaccine and date of surgery - If you have a stimulator, implant or pump that requires a remote please bring the remote with you day of surgery Hibiclens provided to patients requiring soap for surgery The anti-bacterial soap (Hibiclens) should be used TWICE prior to surgery: The night before surgery and the morning of surgery: - If you plan to wash your hair, do so with your regular shampoo. Then rinse hair and body thoroughly to remove any shampoo residue. - Wash your face with water or your regular soap. - Thoroughly rinse your body with water from the neck down - Apply Hibiclens directly on your skin or on a wet washcloth and wash gently. Move away from the shower stream when applying Hibiclens to ensure the CHG binds to the skin. - Pay special attention to the area where your surgery will be performed - Rinse thoroughly - Apply clean bedding and clean clothing after shower Do not use your regular soap after applying and rinsing Hibiclens. Do not apply any lotions, deodorants, powders, or perfumes to the body areas that have been cleaned with Hibiclens. If you already have an Advance Directive, please fax a copy to [phone] or [facility] at [phone] or email to for it to be added to your chart. If you do not have an Advance Directive, you can find the appropriate form and more information at [email or web address]. We recommend that you complete the Advance Directive form found on the website and bring it with you the day of your surgery. It can be witnessed and scanned into your chart that day. Leigh Ann Talavera APRN.MATTHEW documented in this encounter [facility] 01-13-2025 History and physical note Images from the original note were not included. [facility] HISTORY AND PHYSICAL EXAMINATION SERVICE DATE: 01/13/2025 SERVICE TIME: 2:57 PM PRIMARY CARE PHYSICIAN: Josef Garcia MD Assessment Patient has the following medical conditions which may affect estrella-operative course: Preop examination Patient has the following medical conditions which may affect estrella-operative course addressed in assessment and plan today. 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 Value PM-Device Mfg STJ Model 2272 Assurity MRI Serial Number [id number] Implant Date 03/29/2024 Lead1 Mfg SJM Model [id number] Serial Number [id number] Location RV Implant Date 03/29/2024 Lead2 Mfg SJM Model 8TC Tendril STS Optim IS Serial Number [id number] Location RA Implant Date 07/15/2013 Presence of cardiac pacemaker Component Value PM-Device Mfg STJ Model 2272 Assurity MRI Serial Number [id number] Implant Date 03/29/2024 Lead1 Mfg SJM Model Serial Number [id number] Location RV Implant Date 03/29/2024 Lead2 Mfg SJM Model 2087TC Tendril STS Optim IS Serial Number [id number] Location RA Implant Date 07/15/2013 COPD (chronic obstructive pulmonary disease) ([facility]) Albuterol has not used albuterol in many many months Ellipta has not used this inhaler in several months Lungs CTA at [facility] 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 Surgeon scheduled for January 27, 2025 Iron deficiency anemia secondary to inadequate dietary iron intake H&H 10.7/32.9 01/10/25 ANESTHESIA FINDINGS: Intubation History: No history of difficult intubation Significant Anesthesia Considerations: none Airway History: No history of difficult airway Cordero Activity Status Index: METS: Climb a flight of stairs or walk up a hill (5.50 METs) DASI Score: 5.5 Patient denies any chest pain or undue shortness of breath with the above physical activity. ARISCAT Score: Age: 51-80 Preoperative SpO2: >=96% Respiratory infection in the last month: No Preoperative anemia: No Surgical incision: peripheral Duration of surgery: 2-3 hrs Emergency procedure: No ARISCAT Score: 19 I - PHYSICAL EVALUATION AIRWAY Patient intubated: No. DENTAL Dental findings: edentulous. Dentures, upper: complete. Dentures, lower: complete. II - ANESTHESIA PLAN Anesthetic Plan: general Beta Issa Monitoring Plan Post Procedure Analgesic Plan Prepared for Surgery: . Anesthesia requests optimizations from pulmonology and cardiology CONSULTS: The following consults have been initiated at this time: cardiology and pulmonary. Planned Anesthetic: general The Following Tests/Procedures Have Been Initiated: Orders Placed This Encounter Type and Screen, 30 day Standing Status: Future Expected Date: 01/13/2025 Expiration Date: 04/14/2025 Hospital of Planned Surgery or Procedure:: Juan C General Status of surgery/procedure:: Scheduled Date of surgery/procedure:: 01/27/2025 The reason for this visit is to perform a comprehensive review of the patient's past medical history, assess their current health status and obtain any additional testing required based on anesthesia guidelines. We will also identify any potential anesthesia problems or contraindications to the planned procedure. REASON FOR VISIT: Bill Estrada is a 64 year old male who is scheduled for * No surgery found * at the request of Dr. Renay Cloud for routine H&P. My final recommendation will be communicated back to the requesting physician by way of shared medical record or letter. Subjective The patient has the following: COVID-19 Immunization Status Current Care Gaps Covid-19 Vaccine (1) Never done No completion, postpone, frequency change, or communication history exists for this topic. CHIEF COMPLAINT: The reason for this visit is to perform a comprehensive review of the patient's past medical history, assess their current health status and obtain any additional testing required based on anesthesia guidelines. We will also identify any potential anesthesia problems or contraindications to the planned procedure. HPI: Patient is a 64 year old male who presents for pre surgical testing. Patient has a history of Johnson's esophagus and had an EGD showing esophageal tumor. Patient admits to pain intermittently described as dull sharp stabbing throbbing. He has nausea vomiting daily. He had a scope in September and now after discussion with the surgeon agrees to surgical intervention. REVIEW OF SYSTEMS: General: Negative for: unintentional weight change, malaise and fever. Neurological: Negative for: headaches, seizures and strokes. Respiratory: Positive for: COPD, obstructive sleep apnea and CPAP/BiPAP compliant. Patient's COPD severity: mild. Negative for: asthma, pneumonia within 6 weeks and URI < 2 weeks. Cardiovascular: Sick sinus syndrome Positive for: AICD/PPM, hyperlipidemia and hypertension Negative for: atrial fibrillation, CAD, chest pain, CHF and DVT/PE. GI: Positive for: GERD Negative for: abdominal pain, nausea and vomiting. : Negative for: dysuria, hematuria and renal failure. Endocrine: Negative for: diabetes mellitus, hyperthyroidism and hypothyroidism. Hematology: Positive for: anemia and iron deficiency anemia. Negative for: factor V Leiden and von Willebrand disease. Oncology: No history of CA metastasis, chemo within 30 days, or radiotherapy within 90 days. No history of oncological symptoms or problems. Psych: Negative for: anxiety and depression. Musculoskeletal: Positive for: back pain and joint pain. Skin: Negative for lesions, rash and itching. PAST MEDICAL HISTORY Diagnosis Date Abdominal pain, left lower quadrant Arrhythmia Breakdown (mechanical) of cardiac electrode, initial encounter Carotid sinus hypersensitivity COPD (chronic obstructive pulmonary disease) (HCC) Diarrhea Diverticulosis of colon (without mention of hemorrhage) GERD (gastroesophageal reflux disease) Kidney stones Malignant neoplasm of lower third of esophagus (HCC) Malnutrition of moderate degree (HCC) Mobilizes using wheelchair NSTEMI (non-ST elevated myocardial infarction) (HCC) Other specified heart block Presence of cardiac pacemaker 02/16/2024 Restless leg syndrome Sick sinus syndrome (HCC) 02/16/2024 Sinus arrest 02/16/2024 Syncope and collapse PAST SURGICAL HISTORY Procedure Laterality Date ANESTHESIA HERNIA REPAIR LOWER ABDOMEN NOS Umbilical hernia ANTERIOR INTERBODY FUSION, CERVICAL 2007 C4-C5 BASIC PACEMAKER DUAL CHAMBER Left 07/15/2013 [employer] dual-chamber pacemaker system implant; Juan C Lorenzo, Dr. Gant CHOLECYSTECTOMY 2007 COLONOSCOPY FLX DX W/COLLJ SPEC WHEN PFRMD 08/20/2005 COLONOSCOPY FLX DX W/COLLJ SPEC WHEN PFRMD 07/06/2019 adenomatous polyps, repeat in 3 years ESOPHAGOGASTRODUODENOSCOPY TRANSORAL DIAGNOSTIC 07/06/2019 Johnson's, repeat in 3 years IR MEDIPORT INSERT 11/2024 right chest PACEMAKER LEAD INSERTION/REVISION/REMOVAL Left 03/29/2024 [employer]Pradhan system; RV lead extracted and replaced with new RV lead, pacemaker generator changed; old RA lead still in use with excellent function; MRI conditional system; [facility] Dr. Zapien PAST SURGICAL HISTORY OF 09/01/2024 Esophagus Biopsy SURG TX ANAL FISTULA INTERSPHINCTERIC 09/01/2008 anterior fistula FAMILY HISTORY Problem Relation Age of Onset Colon Cancer Mother 80 Hypertension Mother Breast Cancer Sister Breast Cancer Sister Breast Cancer Daughter Social History Tobacco Use Smoking status: Every Day Current packs/day: 0.50 Average packs/day: 0.5 packs/day for 50.3 years (25.1 ttl pk-yrs) Types: Cigarettes Start date: 10/12/1974 Smokeless tobacco: Never Tobacco comments: Pt has cut back to 1/4 pack daily. Vaping Use Vaping status: Never Used Substance Use Topics Alcohol use: Not Currently Comment: a few times a year Drug use: No Prior to Admission medications as of 01/13/25 1423 Medication Sig Last Dose Taking prochlorperazine (COMPAZINE) 10 mg tablet Take 1 tablet by mouth every 6 hours as needed for nausea/vomiting. Yes ergocalciferol 50,000 unit capsule (VITAMIN D2, DRISDOL) Take 1 capsule by mouth one time a week. Yes ALBUTEROL INHALATION Inhale as instructed as needed. Yes ondansetron (ZOFRAN) 8 mg tablet Take 1 tablet by mouth every 8 hours as needed for nausea/vomiting. Yes lidocaine-prilocaine (EMLA) 2.5-2.5 % cream Apply to affected area as needed. Yes HYDROcodone-Acetaminophen (NORCO) 7.5-325 mg per tablet Take 1 tablet by mouth every 6 hours as needed. Yes ANORO ELLIPTA 62.5-25 mcg/actuation inhaler Inhale 1 puff as instructed once daily. Yes levoFLOXacin (LEVAQUIN) 750 mg tablet Take 750 mg by mouth once daily. sucralfate (CARAFATE) 100 mg/mL suspension Take 10 mL by mouth four times daily. Patient not taking: Reported on 01/10/2025 dicyclomine (BENTYL) 10 mg capsule Take 1 capsule by mouth three times a day as needed. PLAVIX 75 mg tablet Take 75 mg by mouth once daily. omeprazole (PRILOSEC) 20 mg capsule Take 1 capsule by mouth once daily. Patient not taking: Reported on 01/10/2025 No medication comments found. ALLERGIES Allergen Reactions Morphine Other: See Comments personality change Percocet [Oxycodone* GI Upset Objective PHYSICAL EXAM: General: alert and oriented and healthy appearance. Pertinent negatives noted - not distressed. Skin: normal color, no rash or lesions. HEENT: pupils equal round. Cardiovascular: regular rate and rhythm, normal S1 and S2, no rub, murmurs, or gallop. Respiratory: normal breath sounds, no wheezes or crackles. No chest wall deformity or tenderness. Abdomen: bowel sounds present. Extremities: no deformity, no edema or tenderness, no joint swelling or clubbing. Neurological: normal cognition and motor skills. Gait normal. No weakness or sensory deficit. PAIN ASSESSMENT: Pain Pain Level: 8 Pain Location: Throat VITALS: BP 101/68 Pulse 97 Temp 98.2 Resp 14 Ht 5' 1 (1.55m) Wt 164 lb (74.4kg) SpO2 98% BMI 31.00 kg/(m^2). Diagnostic tests reviewed for today's visit: Lab Value Units Date High Low HB 10.7 g/dL 01/10/2025 17.0 13.0 HCT 32.9 % 01/10/2025 51.0 39.0 WBC 3.48 k/uL 01/10/2025 11.00 3.70 PLT 171 k/uL 01/10/2025 400 150 NA 134 mmol/L 01/10/2025 144 136 K 3.3 mmol/L 01/10/2025 5.1 3.7 GLUC 107 mg/dL 01/10/2025 99 74 BUN 10 mg/dL 01/10/2025 24 9 CREAT 0.52 mg/dL 01/10/2025 1.22 0.73 PTSEC 10.8 sec 11/21/2024 <13.1 INR 1.0 no uni* 11/21/2024 1.3 0.9 APTT 25.3 sec 11/07/2024 32.4 23.0 ALT 87 U/L 01/10/2025 54 10 AST 75 U/L 01/10/2025 40 14 TBILI 0.7 mg/dL 01/10/2025 1.3 0.2 TSH No results within date range. Lab Value Units Date High Low HCGQT No results within date range. UHCG No results within date range. HCG, BODY* No results within date range. Lab Value Units Date High Low ABORHD No results within date range. ABSCREEN No results within date range. No results found for: HBA1C Recent Results (from the past 8760 hours) ECG COMPLETE Collection Time: 03/30/24 6:31 AM Result Value Ventricular Rate 61 Atrial Rate 61 QRS Duration 78 QT Interval 382 QTC Calculation (Bazett) 384 Calculated R Helen -4 Calculated T Helen 1 Impression Atrial-paced rhythm ABNORMAL ECG NO PREVIOUS ECGS AVAILABLE Confirmed by MD AGUILAR YASSAR ([id number]) on 03/30/2024 1:48:59 PM No results found for this or any previous visit (from the past 49226 hours). Surgical scrub given day of PST. ARISCAT risk index interpretation 0 to 25 points: Low risk: 1.6% pulmonary complication rate 26 to 44 points: Intermediate risk: 13.3% pulmonary complication rate 45 to 123 points: High risk: 42.1% pulmonary complication rate Implantable Devices: Pacemaker right chest port spinal hardware stent in throat The Following Tests/Procedures Have Been Initiated: CBC CMP confirm type and screen PT ordered in [facility] by surgeon BELLY PACKER ordered type and screen Assessment/Plan Diagnosis: 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] Malnutrition of moderate degree (HCC) [E44.0] PLAN Planned Procedure: XI ROBOTIC THORACOSCOPIC ESOPHAGECTOMY,FALGUNI YUNG ESOPHAGECTOMY I spent a total of 40 minutes on the date of the service which included preparing to see the patient, [id number] patient care, completing clinical documentation, obtaining and/or reviewing separately obtained history, performing a medically appropriate examination, and counseling and educating the patient/family/caregiver. Instructions Given to Patient: Instructions located in the after visit summary. Patient given verbal and written preop instructions and voices comprehension and compliance. SIGNATURE: Leigh Ann Talavera APRN.CNP PATIENT NAME: Bill Estrada DATE: January 13, 2025 TIME: 4:46 PM PAGER/CONTACT #: [facility] 01-13-2025 History and physical note Images from the original note were not included. [facility] HISTORY AND PHYSICAL EXAMINATION SERVICE DATE: 01/13/2025 SERVICE TIME: 2:57 PM PRIMARY CARE PHYSICIAN: Josef Garcia MD Assessment Patient has the following medical conditions which may affect estrella-operative course: Preop examination Patient has the following medical conditions which may affect estrella-operative course addressed in assessment and plan today. 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 Value PM-Device Mfg STJ Model 2272 Assurity MRI Serial Number [id number] Implant Date 03/29/2024 [employer] SJM Model 2087TC52 Serial Number [id number] Location RV Implant Date 03/29/2024 [employer]fg SJM Model 8TC Tendril STS Optim IS Serial Number [id number] Location RA Implant Date 07/15/2013 Presence of cardiac pacemaker Component Value PM-Device Mfg STJ Model 2272 Assurity MRI Serial Number [id number] Implant Date 03/29/2024 [employer] SJM Model 2087TC Serial Number [id number] Location RV Implant Date 03/29/2024 [employer]fg SJM Model 2087TC Tendril STS Optim IS Serial Number [id number] Location RA Implant Date 07/15/2013 COPD (chronic obstructive pulmonary disease) ([facility]) Albuterol has not used albuterol in many many months Ellipta has not used this inhaler in several months Lungs CTA at [facility] 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 Surgeon scheduled for January 27, 2025 Iron deficiency anemia secondary to inadequate dietary iron intake H&H 10.7/32.9 01/10/25 ANESTHESIA FINDINGS: Intubation History: No history of difficult intubation Significant Anesthesia Considerations: none Airway History: No history of difficult airway Cordero Activity Status Index: METS: Climb a flight of stairs or walk up a hill (5.50 METs) DASI Score: 5.5 Patient denies any chest pain or undue shortness of breath with the above physical activity. ARISCAT Score: Age: 51-80 Preoperative SpO2: >=96% Respiratory infection in the last month: No Preoperative anemia: No Surgical incision: peripheral Duration of surgery: 2-3 hrs Emergency procedure: No ARISCAT Score: 19 I - PHYSICAL EVALUATION AIRWAY Patient intubated: No. DENTAL Dental findings: edentulous. Dentures, upper: complete. Dentures, lower: complete. II - ANESTHESIA PLAN Anesthetic Plan: general Beta Issa Monitoring Plan Post Procedure Analgesic Plan Prepared for Surgery: . Anesthesia requests optimizations from pulmonology and cardiology CONSULTS: The following consults have been initiated at this time: cardiology and pulmonary. Planned Anesthetic: general The Following Tests/Procedures Have Been Initiated: Orders Placed This Encounter Type and Screen, 30 day Standing Status: Future Expected Date: 01/13/2025 Expiration Date: 04/14/2025 [facility] of Planned Surgery or Procedure:: Juan C General Status of surgery/procedure:: Scheduled Date of surgery/procedure:: 01/27/2025 The reason for this visit is to perform a comprehensive review of the patient's past medical history, assess their current health status and obtain any additional testing required based on anesthesia guidelines. We will also identify any potential anesthesia problems or contraindications to the planned procedure. REASON FOR VISIT: Bill Estrada is a 64 year old male who is scheduled for * No surgery found * at the request of Dr. Renay Cloud for routine H&P. My final recommendation will be communicated back to the requesting physician by way of shared medical record or letter. Subjective The patient has the following: COVID-19 Immunization Status Current Care Gaps Covid-19 Vaccine (1) Never done No completion, postpone, frequency change, or communication history exists for this topic. CHIEF COMPLAINT: The reason for this visit is to perform a comprehensive review of the patient's past medical history, assess their current health status and obtain any additional testing required based on anesthesia guidelines. We will also identify any potential anesthesia problems or contraindications to the planned procedure. HPI: Patient is a 64 year old male who presents for pre surgical testing. Patient has a history of Johnson's esophagus and had an EGD showing esophageal tumor. Patient admits to pain intermittently described as dull sharp stabbing throbbing. He has nausea vomiting daily. He had a scope in September and now after discussion with the surgeon agrees to surgical intervention. REVIEW OF SYSTEMS: General: Negative for: unintentional weight change, malaise and fever. Neurological: Negative for: headaches, seizures and strokes. Respiratory: Positive for: COPD, obstructive sleep apnea and CPAP/BiPAP compliant. Patient's COPD severity: mild. Negative for: asthma, pneumonia within 6 weeks and URI < 2 weeks. Cardiovascular: Sick sinus syndrome Positive for: AICD/PPM, hyperlipidemia and hypertension Negative for: atrial fibrillation, CAD, chest pain, CHF and DVT/PE. GI: Positive for: GERD Negative for: abdominal pain, nausea and vomiting. : Negative for: dysuria, hematuria and renal failure. Endocrine: Negative for: diabetes mellitus, hyperthyroidism and hypothyroidism. Hematology: Positive for: anemia and iron deficiency anemia. Negative for: factor V Leiden and von Willebrand disease. Oncology: No history of CA metastasis, chemo within 30 days, or radiotherapy within 90 days. No history of oncological symptoms or problems. Psych: Negative for: anxiety and depression. Musculoskeletal: Positive for: back pain and joint pain. Skin: Negative for lesions, rash and itching. PAST MEDICAL HISTORY Diagnosis Date Abdominal pain, left lower quadrant Arrhythmia Breakdown (mechanical) of cardiac electrode, initial encounter Carotid sinus hypersensitivity COPD (chronic obstructive pulmonary disease) (HCC) Diarrhea Diverticulosis of colon (without mention of hemorrhage) GERD (gastroesophageal reflux disease) Kidney stones Malignant neoplasm of lower third of esophagus (HCC) Malnutrition of moderate degree (HCC) Mobilizes using wheelchair NSTEMI (non-ST elevated myocardial infarction) (HCC) Other specified heart block Presence of cardiac pacemaker 02/16/2024 Restless leg syndrome Sick sinus syndrome (HCC) 02/16/2024 Sinus arrest 02/16/2024 Syncope and collapse PAST SURGICAL HISTORY Procedure Laterality Date ANESTHESIA HERNIA REPAIR LOWER ABDOMEN NOS Umbilical hernia ANTERIOR INTERBODY FUSION, CERVICAL 2007 C4-C5 BASIC PACEMAKER DUAL CHAMBER Left 07/15/2013 [employer] dual-chamber pacemaker system implant; Juan C Lorenzo, Dr. Gant CHOLECYSTECTOMY 2007 COLONOSCOPY FLX DX W/COLLJ SPEC WHEN PFRMD 08/20/2005 COLONOSCOPY FLX DX W/COLLJ SPEC WHEN PFRMD 07/06/2019 adenomatous polyps, repeat in 3 years ESOPHAGOGASTRODUODENOSCOPY TRANSORAL DIAGNOSTIC 07/06/2019 Johnson's, repeat in 3 years IR MEDIPORT INSERT 11/2024 right chest PACEMAKER LEAD INSERTION/REVISION/REMOVAL Left 03/29/2024 [employer] system; RV lead extracted and replaced with new RV lead, pacemaker generator changed; old RA lead still in use with excellent function; MRI conditional system; [facility] Dr. Zapien PAST SURGICAL HISTORY OF 09/01/2024 Esophagus Biopsy SURG TX ANAL FISTULA INTERSPHINCTERIC 09/01/2008 anterior fistula FAMILY HISTORY Problem Relation Age of Onset Colon Cancer Mother 80 Hypertension Mother Breast Cancer Sister Breast Cancer Sister Breast Cancer Daughter Social History Tobacco Use Smoking status: Every Day Current packs/day: 0.50 Average packs/day: 0.5 packs/day for 50.3 years (25.1 ttl pk-yrs) Types: Cigarettes Start date: 10/12/1974 Smokeless tobacco: Never Tobacco comments: Pt has cut back to 1/4 pack daily. Vaping Use Vaping status: Never Used Substance Use Topics Alcohol use: Not Currently Comment: a few times a year Drug use: No Prior to Admission medications as of 01/13/25 1423 Medication Sig Last Dose Taking prochlorperazine (COMPAZINE) 10 mg tablet Take 1 tablet by mouth every 6 hours as needed for nausea/vomiting. Yes ergocalciferol 50,000 unit capsule (VITAMIN D2, DRISDOL) Take 1 capsule by mouth one time a week. Yes ALBUTEROL INHALATION Inhale as instructed as needed. Yes ondansetron (ZOFRAN) 8 mg tablet Take 1 tablet by mouth every 8 hours as needed for nausea/vomiting. Yes lidocaine-prilocaine (EMLA) 2.5-2.5 % cream Apply to affected area as needed. Yes HYDROcodone-Acetaminophen (NORCO) 7.5-325 mg per tablet Take 1 tablet by mouth every 6 hours as needed. Yes ANORO ELLIPTA 62.5-25 mcg/actuation inhaler Inhale 1 puff as instructed once daily. Yes levoFLOXacin (LEVAQUIN) 750 mg tablet Take 750 mg by mouth once daily. sucralfate (CARAFATE) 100 mg/mL suspension Take 10 mL by mouth four times daily. Patient not taking: Reported on 01/10/2025 dicyclomine (BENTYL) 10 mg capsule Take 1 capsule by mouth three times a day as needed. PLAVIX 75 mg tablet Take 75 mg by mouth once daily. omeprazole (PRILOSEC) 20 mg capsule Take 1 capsule by mouth once daily. Patient not taking: Reported on 01/10/2025 No medication comments found. ALLERGIES Allergen Reactions Morphine Other: See Comments personality change Percocet [Oxycodone* GI Upset Objective PHYSICAL EXAM: General: alert and oriented and healthy appearance. Pertinent negatives noted - not distressed. Skin: normal color, no rash or lesions. HEENT: pupils equal round. Cardiovascular: regular rate and rhythm, normal S1 and S2, no rub, murmurs, or gallop. Respiratory: normal breath sounds, no wheezes or crackles. No chest wall deformity or tenderness. Abdomen: bowel sounds present. Extremities: no deformity, no edema or tenderness, no joint swelling or clubbing. Neurological: normal cognition and motor skills. Gait normal. No weakness or sensory deficit. PAIN ASSESSMENT: Pain Pain Level: 8 Pain Location: Throat VITALS: BP 101/68 Pulse 97 Temp 98.2 Resp 14 Ht 5' 1 (1.55m) Wt 164 lb (74.4kg) SpO2 98% BMI 31.00 kg/(m^2). Diagnostic tests reviewed for today's visit: Lab Value Units Date High Low HB 10.7 g/dL 01/10/2025 17.0 13.0 HCT 32.9 % 01/10/2025 51.0 39.0 WBC 3.48 k/uL 01/10/2025 11.00 3.70 PLT 171 k/uL 01/10/2025 400 150 NA 134 mmol/L 01/10/2025 144 136 K 3.3 mmol/L 01/10/2025 5.1 3.7 GLUC 107 mg/dL 01/10/2025 99 74 BUN 10 mg/dL 01/10/2025 24 9 CREAT 0.52 mg/dL 01/10/2025 1.22 0.73 PTSEC 10.8 sec 11/21/2024 <13.1 INR 1.0 no uni* 11/21/2024 1.3 0.9 APTT 25.3 sec 11/07/2024 32.4 23.0 ALT 87 U/L 01/10/2025 54 10 AST 75 U/L 01/10/2025 40 14 TBILI 0.7 mg/dL 01/10/2025 1.3 0.2 TSH No results within date range. Lab Value Units Date High Low HCGQT No results within date range. UHCG No results within date range. HCG, BODY* No results within date range. Lab Value Units Date High Low ABORHD No results within date range. ABSCREEN No results within date range. No results found for: HBA1C Recent Results (from the past 8760 hours) ECG COMPLETE Collection Time: 03/30/24 6:31 AM Result Value Ventricular Rate 61 Atrial Rate 61 QRS Duration 78 QT Interval 382 QTC Calculation (Bazett) 384 Calculated R Helen -4 Calculated T Helen 1 Impression Atrial-paced rhythm ABNORMAL ECG NO PREVIOUS ECGS AVAILABLE Confirmed by MD AGUILAR YASSAR ([id number]) on 03/30/2024 1:48:59 PM No results found for this or any previous visit (from the past 29084 hours). Surgical scrub given day of PST. ARISCAT risk index interpretation 0 to 25 points: Low risk: 1.6% pulmonary complication rate 26 to 44 points: Intermediate risk: 13.3% pulmonary complication rate 45 to 123 points: High risk: 42.1% pulmonary complication rate Implantable Devices: Pacemaker right chest port spinal hardware stent in throat The Following Tests/Procedures Have Been Initiated: CBC CMP confirm type and screen PT ordered in epic by surgeon BELLY PACKER ordered type and screen Assessment/Plan Diagnosis: 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] Malnutrition of moderate degree (HCC) [E44.0] PLAN Planned Procedure: XI ROBOTIC THORACOSCOPIC ESOPHAGECTOMY,FALGUNI YUNG ESOPHAGECTOMY I spent a total of 40 minutes on the date of the service which included preparing to see the patient, [id number] patient care, completing clinical documentation, obtaining and/or reviewing separately obtained history, performing a medically appropriate examination, and counseling and educating the patient/family/caregiver. Instructions Given to Patient: Instructions located in the after visit summary. Patient given verbal and written preop instructions and voices comprehension and compliance. SIGNATURE: Leigh Ann Talavera APRN.CNP PATIENT NAME: Bill Estrada DATE: January 13, 2025 TIME: 4:46 PM PAGER/CONTACT #: documented in this encounter [facility] 01-12-2025 Telephone encounter Note Summary: SOC Updates SURGERY OPTIMIZATION CLINIC SERVICE AND REPAIR SUPERVISOR NOTE Discussed the purpose of the Surgery Optimization Clinic. Reviewed modifiable risk factors identified in the Surgery Optimization Clinic: EXERCISE: He is not tracking steps, but he has gotten a seated stepper and has been using it in the evenings. Encouraged to increase activity as much as possible prior to surgery. BREATHING: He is using his IS daily. Encouraged to use 30-40 breaths/day. He is still smoking, down to less than 0.5 pack a day. Encouraged complete cessation. NUTRITION: Reports a decreased appetite, he is doing supplemental drinks BID. Reviewed high protein food sources. Encouraged to include a protein source with each meal. Impact Advanced Recovery to start 5 days prior to procedure, BID. He has started taking his Vitamin D script. STRESS RELIEF: Education given to patient for stress reduction/management. OR DATE: 01/27/2025 -He has completed his IV iron infusions and tolerated well. -Cardiac clearance was obtained, but patient not seen since 05/2024, and has NSTEMI at [place] since than and clearance has not mentioned the new medication he was prescribed, but has stopped staking. Records have been sent to Dr. Rubio's office and Cardiac clearance letter refaxed with requests to address change in health status. Surgeon, player development manager, Anesthesia aware. Damian Arreguin APRN.COLOR BUFFER January 12, 2025 [facility] 01-12-2025 Miscellaneous Notes Summary: SOC Updates SURGERY OPTIMIZATION CLINIC SERVICE AND REPAIR SUPERVISOR NOTE Discussed the purpose of the Surgery Optimization Clinic. Reviewed modifiable risk factors identified in the Surgery Optimization Clinic: EXERCISE: He is not tracking steps, but he has gotten a seated stepper and has been using it in the evenings. Encouraged to increase activity as much as possible prior to surgery. BREATHING: He is using his IS daily. Encouraged to use 30-40 breaths/day. He is still smoking, down to less than 0.5 pack a day. Encouraged complete cessation. NUTRITION: Reports a decreased appetite, he is doing supplemental drinks BID. Reviewed high protein food sources. Encouraged to include a protein source with each meal. Impact Advanced Recovery to start 5 days prior to procedure, BID. He has started taking his Vitamin D script. STRESS RELIEF: Education given to patient for stress reduction/management. OR DATE: 01/27/2025 -He has completed his IV iron infusions and tolerated well. -Cardiac clearance was obtained, but patient not seen since 05/2024, and has NSTEMI at [place] since than and clearance has not mentioned the new medication he was prescribed, but has stopped staking. Records have been sent to Dr. Rubio's office and Cardiac clearance letter refaxed with requests to address change in health status. Surgeon, player development manager, Anesthesia aware. Damian Arreguin APRN.MATTHEW January 12, 2025 documented in this encounter [facility] 01-10-2025 Telephone encounter Note Images from the original note were not included. [facility] Work Phone: 01-10-2025 Miscellaneous Notes Images from the original note were not included. Patient checked out without AVS Please advise Ada Negron documented in this encounter [facility] 01-10-2025 Telephone encounter Note Patient checked out without AVS Please advise Ada Negron [facility] 01-10-2025 Note [facility] 01-10-2025 History of Present illness Narrative Bronchoscopy Request: Cleared for scheduling January 10, 2025 Please schedule patient for the following: Outpatient Visit: New Consult with Staff: Patient Choice (Virtual or In-Person) (Close to home at [facility] w/ Debra Quezada Hussein or Maya if possible but earliest available ok) Bronchoscopy Procedures: Diagnostic EBUS Diagnosis/Reason for Bronchoscopy: Adenopathy Timing: Next available Goal Procedure Date on 01/23 or EARLIER for results prior to esophagectomy. 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 portable: Esophageal CA, new R hilar PET positive LN, r/o metastatic disease Consultation request/referral by: Ai Obregon Reviewed by: MD Anai Tang MD January 10, 2025 1:10 PM Addendum: CBC with diff: WBC 3.48 01/10/2025 RBC 3.87 01/10/2025 Hemoglobin 10.7 01/10/2025 Hematocrit 32.9 01/10/2025 MCV 85.0 01/10/2025 MCH 27.6 01/10/2025 MCHC 32.5 01/10/2025 RDW-CV 19.8 01/10/2025 Platelet Count 171 01/10/2025 MPV 9.7 01/10/2025 Neutrophils % 64.0 12/27/2024 Lymphocytes % 19.0 12/27/2024 Monocytes % 14.0 12/27/2024 Eosinophils % 0.2 12/13/2024 Basophils % 0.0 12/27/2024 Abs Neut 7.46 12/27/2024 Abs Newton 1.63 12/27/2024 Abs Eosin 0.00 12/27/2024 Abs Baso 0.00 12/27/2024 Potassium Date Value Ref Range Status 01/10/2025 3.3 (L) 3.7 - 5.1 mmol/L Final 12/27/2024 3.6 (L) 3.7 - 5.1 mmol/L Final 12/05/2024 3.5 (L) 3.7 - 5.1 mmol/L Final Sodium Date Value Ref Range Status 01/10/2025 134 (L) 136 - 144 mmol/L Final 12/27/2024 137 136 - 144 mmol/L Final 12/05/2024 138 136 - 144 mmol/L Final BUN Date Value Ref Range Status 01/10/2025 10 9 - 24 mg/dL Final Creatinine Date Value Ref Range Status 01/10/2025 0.52 (L) 0.73 - 1.22 mg/dL Final documented in this encounter [facility] 01-10-2025 Note [facility] 01-10-2025 History of Present illness Narrative Bill Estrada 1960 01/10/2025 HISTORY OF PRESENT ILLNESS: Bill Estrada is a 64 year old male started with dysphagia in July 2024, y end of August very hard. Currently taking only shakes. Planned for stent. EGD done September 02, 2024 Mass seen, biopsy shows adenocarcinoma. Feeling dizzy, present for long time, maybe worse now Here for follow up post interim PET scan, doing ok, tolerating chemo well, cold neuropathy only, nausea for 6 days after neulasta. Eating well. PET not yet read, still see uptake to my eye. Interval Hx: Pt reports today with spouse and grandson prior or scheduled IV iron. He reports feeling terrible today. C/O nausea and vomiting. Has not taken any antiemetics. 2 more days of abx. Was able to get a shake down last night but then had diarrhea. Persistent N/V. Occasional compazine use. Reviewed antiemetics in detail. Advised to take as scheduled to prevent nausea. States his PCP wrote for scopolamine but rx was too expensive to filler picker. Otherwise no new issues. No Shortness of Breath, cp, palpitations. Denies bleeding. No fevers, chills or NS. CLINICAL IMPRESSION: Dysphagia Esophageal adenocarcinoma, locally advanced on PET RECOMMENDATION/PLAN: Hydration and IV compazine today - reviewed antiemetic instructions today Keep appts as scheduled. Will discuss follow up plan with Dr Obregon Advised to call with any questions or concerns. Written and verbal health teaching given to patient, patient verbalizes understanding and agrees with treatment plan. PAST MEDICAL HISTORY Diagnosis Date Abdominal pain, left lower quadrant Arrhythmia Breakdown (mechanical) of cardiac electrode, initial encounter Carotid sinus hypersensitivity COPD (chronic obstructive pulmonary disease) (HCC) Diarrhea Diverticulosis of colon (without mention of hemorrhage) GERD (gastroesophageal reflux disease) Kidney stones NSTEMI (non-ST elevated myocardial infarction) (HCC) Other specified heart block Presence of cardiac pacemaker 02/16/2024 Restless leg syndrome Sick sinus syndrome (HCC) 02/16/2024 Sinus arrest 02/16/2024 Syncope and collapse PAST SURGICAL HISTORY Procedure Laterality Date ANESTHESIA HERNIA REPAIR LOWER ABDOMEN NOS Umbilical hernia ANTERIOR INTERBODY FUSION, CERVICAL 2007 C4-C5 BASIC PACEMAKER DUAL CHAMBER Left 07/15/2013 [employer] dual-chamber pacemaker system implant; Juan C Lorenzo, Dr. Gant CHOLECYSTECTOMY 2007 COLONOSCOPY FLX DX W/COLLJ SPEC WHEN PFRMD 08/20/2005 COLONOSCOPY FLX DX W/COLLJ SPEC WHEN PFRMD 07/06/2019 adenomatous polyps, repeat in 3 years ESOPHAGOGASTRODUODENOSCOPY TRANSORAL DIAGNOSTIC 07/06/2019 [facility], repeat in 3 years PACEMAKER LEAD INSERTION/REVISION/REMOVAL Left 03/29/2024 [employer] system; RV lead extracted and replaced with new RV lead, pacemaker generator changed; old RA lead still in use with excellent function; MRI conditional system; [facility] Dr. Zapien PAST SURGICAL HISTORY OF 09/01/2024 Esophagus Biopsy SURG TX ANAL FISTULA INTERSPHINCTERIC 09/01/2008 anterior fistula FAMILY HISTORY Problem Relation Age of Onset Colon Cancer Mother 80 Hypertension Mother Breast Cancer Sister Breast Cancer Sister Social History Tobacco Use Smoking status: Every Day Current packs/day: 1.00 Average packs/day: 1 pack/day for 50.2 years (50.2 ttl pk-yrs) Types: Cigarettes Start date: 10/12/1974 Smokeless tobacco: Never Tobacco comments: Pt has cut back to 1/4 pack daily. Vaping Use Vaping status: Never Used Substance Use Topics Alcohol use: Not Currently Comment: a few times a year Drug use: No ALLERGIES: ALLERGIES Allergen Reactions Morphine Other: See Comments personality change Percocet [Oxycodone* GI Upset CURRENT OUTPATIENT MEDICATIONS: levoFLOXacin (LEVAQUIN) 750 mg tablet Take 750 mg by mouth once daily. ergocalciferol 50,000 unit capsule (VITAMIN D2, DRISDOL) Take 1 capsule by mouth one time a week. ALBUTEROL INHALATION Inhale as instructed. ondansetron (ZOFRAN) 8 mg tablet Take 1 tablet by mouth every 8 hours as needed for nausea/vomiting. dicyclomine (BENTYL) 10 mg capsule Take 1 capsule by mouth three times a day as needed. lidocaine-prilocaine (EMLA) 2.5-2.5 % cream Apply to affected area as needed. HYDROcodone-Acetaminophen (NORCO) 7.5-325 mg per tablet Take 1 tablet by mouth every 6 hours as needed. prochlorperazine (COMPAZINE) 5 mg tablet Take 2 tablets by mouth every 6 hours as needed. ANORO ELLIPTA 62.5-25 mcg/actuation inhaler Inhale 1 puff as instructed once daily. sucralfate (CARAFATE) 100 mg/mL suspension Take 10 mL by mouth four times daily. (Patient not taking: Reported on 01/10/2025) LIPITOR 40 mg tablet Take 40 mg by mouth once daily. (Patient not taking: Reported on 01/10/2025) PLAVIX 75 mg tablet Take 75 mg by mouth once daily. metoprolol succinate ER (TOPROL XL) 25 mg 24 hr tablet Take 25 mg by mouth once daily. (Patient not taking: Reported on 12/05/2024) ENTRESTO 24-26 mg tablet (Patient not taking: Reported on 01/10/2025) gabapentin (NEURONTIN) 400 mg capsule Take 400 mg by mouth two times a day. (Patient not taking: Reported on 01/10/2025) pravastatin sodium (PRAVASTATIN ORAL) Take 1 tablet by mouth daily at bedtime. (Patient not taking: Reported on 12/05/2024) omeprazole (PRILOSEC) 20 mg capsule Take 1 capsule by mouth once daily. (Patient not taking: Reported on 01/10/2025) REVIEW OF SYSTEMS: GENERAL: No fever, night sweats, weight loss or malaise. All other reviewed and negative other than HPI. Physical Exam: BP 102/68 Pulse 102 Temp (Src) 98 (Temporal) Wt 167 lb (75.8kg) SpO2 96% General: Age-appropriate well developed. Ill appearing. HEENT: Normocephalic, no sclera icterus, external ears normal Chest: Clear bilaterally, not labored. Heart: no abnormal sounds. Tachycardic Abdomen: Soft, nondistended Extremities: No edema Neurological: Grossly intact Skin: Warm and dry with no rashes or ulcerations. Hematologic: no bruising or petechiae. I have performed the physical exam today (01/10/2025) and have edited the note to correlate with current findings. Ingrid Orellana APRN.COLOR BUFFER I spent a total of 30 minutes on the date of the service which included preparing to see the patient, [id number] patient care, completing clinical documentation, obtaining and/or reviewing separately obtained history, and counseling and educating the patient/family/caregiver. Portions of this note including HPI, ROS, impression/plan may have been copied forward as to provide important historical information essential in contributing to medical decision making. Documentation has been reviewed and edited as necessary to support clinical decision making for today's visit and to reflect my own independent evaluation of this patient. documented in this encounter [facility] 01-09-2025 Telephone encounter Note [place] Care Coordination FOLLOW-UP NOTE Patient identified by name and date of . YES Spoke to patient Summary: (Reason for follow-up) Call to patient, states he has been taking the Levaquin and using the BMX soln. States mouth is somewhat better, throat is still sore. He is still having nausea and not tolerating much. Sipping on water, maybe 1.5 cup in daily, also gets in 1 to 1.5 Ensure daily. Sometimes the water comes right back up. He has been using Compazine. He does have a RX for Zofan that he has not tried. Advised to start using the Zofran. Denies fever/chills. Doesn't feel like he needs fluids today. States I'm ok today and plans to come in tomorrow. Reviewed appointment times. Patient verbalized when to seek Medical Attention and an understanding of after- hours phone number and process: Yes Care Coordination Plan: Patient has lab/OV tomorrow 8AM. Marlene Mcghee RN January 09, 2025 [facility] Work Phone: 01-09-2025 Miscellaneous Notes [place] Care Coordination FOLLOW-UP NOTE Patient identified by name and date of . YES Spoke to patient Summary: (Reason for follow-up) Call to patient, states he has been taking the Levaquin and using the BMX soln. States mouth is somewhat better, throat is still sore. He is still having nausea and not tolerating much. Sipping on water, maybe 1.5 cup in daily, also gets in 1 to 1.5 Ensure daily. Sometimes the water comes right back up. He has been using Compazine. He does have a RX for Zofan that he has not tried. Advised to start using the Zofran. Denies fever/chills. Doesn't feel like he needs fluids today. States I'm ok today and plans to come in tomorrow. Reviewed appointment times. Patient verbalized when to seek Medical Attention and an understanding of after- hours phone number and process: Yes Care Coordination Plan: Patient has lab/OV tomorrow 8AM. Marlene Mcghee RN January 09, 2025 documented in this encounter [facility] 01-06-2025 Telephone encounter Note Spoke w pt and this is scheduled as requested, pt agreeable. Sheri Tamez [facility] 01-06-2025 Miscellaneous Notes Spoke w pt and this is scheduled as requested, pt agreeable. Sheri Tamez PSS: Please add patient to Daphney Amanda 01/10/25 at 8am with labs, CBC/CMP. Patient coming in today for hydration/iron, please let him know about this added lab/OV. Josephine Mcghee RN EMERGENCY ROOM CALL BACK Today's date: January 06, 2025 Patient identified by name and date of . YES Primary Cancer Diagnosis: Esophageal Reason for Emergency Room Visit: Weakness, dehydration, mucositis, neutropenia Time of day presented to Emergency Room 1640 If Thu-Thursday during business hours: Did you contact your Sort Line/Provider? Yes, told to present to emergency department Patient with any new symptom issues: No Psychosocial Risk Factors: None FOLLOW UP Patient reminded of her follow-up appointment with [place] provider, will add on to schedule with Daphney Amanda CNP on 01/10/25 at 8am prior to his next dose of Iron already scheduled. Dr. Jimnéez advises CBC/CMP that day also. Next Sort Line outreach with patient scheduled? this nurse will call on Thursday01/09/25. Discussed Spoke with , states he is doing much better, she plans to filler picker Levaquin and BMX soln today after appointment today with us. She states patient was also given Rx for morphine but he does not tolerate and they will not be getting that one filled. Dr. Jiménez aware. She is aware that that we will be adding hydration on to appointment today. Reminded of appointment time and they are planning to be here. PATIENT EDUCATION/REINFORCEMENT Patient verbalizes understanding of when to seek Medical Attention? YES Patient verbalizes understanding of after hours and weekend phone number? YES Patient verbalizes understanding of next outreach appointment? YES Marlene Mcghee RN Pt scheduled for iron this AM. Will add hydration with infusion. Josephine is contacting patient to update. I received a call from the ED last evening. Lab work all looked okay with the exception of very low ANC below 500. Patient was given a liter of fluids. I advised the ER physician to provide him with a prescription for Roxanol for pain control of mucositis and to give him a dose of Levaquin and then a prescription for 5-day course of Levaquin for prophylaxis since ANC less than 500. We can check on him this morning, but he will probably need further hydration today. Orders filed. Xavier Jiménez DO Thank you. I agree. Xavier Jiménez DO Care Coordination Triage Note [facility] Situation: Patient reports Esophagitis/Odynophagia (Painful Swallowing) Background: Esophageal, completed 4 cycles of FLOT 12/29/24, awaiting Esophagectomy with Dr. Cloud on 01/27/25 Assessment: , Ronel calls and states patient throat hurts and painful to swallow. Started about a week ago but has gotten much worse the past few days. States difficulty swallowing mainly due to pain. Fluid intake yesterday, 1/2 glass of water, today nothing. Food intake yesterday, spoon of mashed potatoes w/ gravy, today nothing. Nausea all the time, emesis x 1 last pm. none today. About 4 episodes in the past week. Feels very weak. Denies fever/chills, diarrhea, last BM 4 days ago. Denies shortness of breath or pain anywhere else. Recommendations: Per RNCC, patient directed to: Emergency Room due to the issue being urgent. Will go to [facility] ED, advised to call 911 if too unstable to ambulate/transport via car. Spouse states understanding and agreed. Discussed with Ingrid Orellana CNP, who is in office at the time of call. Will also update Dr. Jiménez. Marlene Mcghee RN January 05, 2025 4:03 PM documented in this encounter [facility] 01-06-2025 Telephone encounter Note PSS: Please add patient to Daphney Treasure 01/10/25 at 8am with labs, CBC/CMP. Patient coming in today for hydration/iron, please let him know about this added lab/OV. Josephine Mcghee RN [facility] 01-06-2025 Telephone encounter Note EMERGENCY ROOM CALL BACK Today's date: January 06, 2025 Patient identified by name and date of . YES Primary Cancer Diagnosis: Esophageal Reason for Emergency Room Visit: Weakness, dehydration, mucositis, neutropenia Time of day presented to Emergency Room 1640 If Thu-Thursday during business hours: Did you contact your Sort Line/Provider? Yes, told to present to emergency department Patient with any new symptom issues: No Psychosocial Risk Factors: None FOLLOW UP Patient reminded of her follow-up appointment with [facility] provider, will add on to schedule with Daphney Amanda CNP on 01/10/25 at 8am prior to his next dose of Iron already scheduled. Dr. Jiménez advises CBC/CMP that day also. Next Sort Line outreach with patient scheduled? this nurse will call on Thursday01/09/25. Discussed Spoke with , states he is doing much better, she plans to filler picker Levaquin and BMX soln today after appointment today with us. She states patient was also given Rx for morphine but he does not tolerate and they will not be getting that one filled. Dr. Jiménez aware. She is aware that that we will be adding hydration on to appointment today. Reminded of appointment time and they are planning to be here. PATIENT EDUCATION/REINFORCEMENT Patient verbalizes understanding of when to seek Medical Attention? YES Patient verbalizes understanding of after hours and weekend phone number? YES Patient verbalizes understanding of next outreach appointment? YES Marlene Mcghee RN T [facility] 01-06-2025 Telephone encounter Note Pt scheduled for iron this AM. Will add hydration with infusion. Josephine is contacting patient to update. T [facility] 01-06-2025 Telephone encounter Note I received a call from the ED last evening. Lab work all looked okay with the exception of very low ANC below 500. Patient was given a liter of fluids. I advised the ER physician to provide him with a prescription for Roxanol for pain control of mucositis and to give him a dose of Levaquin and then a prescription for 5-day course of Levaquin for prophylaxis since ANC less than 500. We can check on him this morning, but he will probably need further hydration today. Orders filed. Xavier Jiménez DO [facility] Work Phone: 01-05-2025 Radiology Diagnostic study note [facility] Imaging Services [address], [place] [id number] Chest PA and Lateral MR#: [id number] Acct: [id number] Name: BILL ESTRADA Rep #: [id number] : [id number] M [id number] From: Sergey Ga MD PCP: Dr. Josef Garcia MD Status: REG E R Study:Chest PA and Lateral Date of Exam: 01/05/25 Exam# [id number] Ordering Dr: Ash Lackey DO PROCEDURE: CHEST PA AND LATERAL 01/05/2025 REASON FOR EXAM: WEAKNESS, CHEMOTHERAPY TECHNIQUE: CHEST PA AND LATERAL COMPARISON: 11/19/2023. FINDINGS: The heart is enlarged. Mild bibasilar atelectasis. Vascular stent overlies themediastinum. Left chest pacemaker. No acute osseous abnormalities. RAD/Chest PA and Lateral IMPRESSION: As above. Reading Location: [id number] CC: Dr. Ahs Nelson DO; Dr. Josef Garcia MD ~ Steward Dishwasher: Signed [facility] 01-05-2025 Telephone encounter Note Thank you. I agree. Xavier Jiménez DO [facility] 01-05-2025 Telephone encounter Note Care Coordination Triage Note [facility] Situation: Patient reports Esophagitis/Odynophagia (Painful Swallowing) Background: Esophageal, completed 4 cycles of FLOT 12/29/24, awaiting Esophagectomy with Dr. Cloud on 01/27/25 Assessment: , Ronel calls and states patient throat hurts and painful to swallow. Started about a week ago but has gotten much worse the past few days. States difficulty swallowing mainly due to pain. Fluid intake yesterday, 1/2 glass of water, today nothing. Food intake yesterday, spoon of mashed potatoes w/ gravy, today nothing. Nausea all the time, emesis x 1 last pm. none today. About 4 episodes in the past week. Feels very weak. Denies fever/chills, diarrhea, last BM 4 days ago. Denies shortness of breath or pain anywhere else. Recommendations: Per RNCC, patient directed to: Emergency Room due to the issue being urgent. Will go to [facility] ED, advised to call 911 if too unstable to ambulate/transport via car. Spouse states understanding and agreed. Discussed with Ingrid Orellana CNP, who is in office at the time of call. Will also update Dr. Jiménez. Marlene Mcghee RN January 05, 2025 4:03 PM [facility] 01-05-2025 Telephone encounter Note Summary: SOC Updates PFTs reviewed by Anesthesia, Dr. Melendez: PFTs look fine. I do not see a need for pulm clearance. -Damian Arreguin APRN.CNP [facility] 01-05-2025 Miscellaneous Notes Summary: SOC Updates PFTs reviewed by Anesthesia, Dr. Melendez: PFTs look fine. I do not see a need for pulm clearance. -Damian Arreguin APRN.CNP documented in this encounter [facility] 01-02-2025 Telephone encounter Note Looks like this has been scheduled. Sheri Tamez [facility] 01-02-2025 Miscellaneous Notes Looks like this has been scheduled. Sheri Tamez Secure chat started to see when patient can be treated. Schedule is full. Ada Negron Can you tell from orders if provider is wanting to add more treatments? And who would inform if infusion on 01/17 needs canceled? Thank you Jannie from Dr Arreguin's office called to schedule Iron Infusions, she stated Insurance did not need a prior auth and also that 01/17/2025 infusion may need cancelled due to surgery on 01/27/2025 documented in this encounter [facility] 01-02-2025 Telephone encounter Note Summary: SOC Updates Chart reviewed by Anesthesia, Dr. Lockwood: Patient's noncompliance is concerning. He is not taking the cardiac medications recommended after his heart catheterization 11/11. I do not see consistently documented HTN, so perhaps the medications need to be adjusted so that he tolerates them. He needs to follow up with is cardiac catheterization technologist. Has he had a stress test? He is not compliant with inhalers for COPD He is still smoking but has decreased from 1 PPD. On a positive note, he uses his CPAP. I don't know that any of this should prevent him from having this surgery for cancer, but his risk could be reduced with compliance to the medications recommended. I would like to see: 1. Results from PFTs as well as pulm note noting optimization- unclear to me how serious his pulmonary issues are but he is a lifelong smoker and is still smoking. 2. Wash Plant Operator's updated recommendations given intolerance of medications and acknowledgement of this procedure. 3. Stress test? Has he had this? Would cardiac catheterization technologist recommend this? This a high risk surgery, and I think he is at least moderate, likely high risk, for this procedure. Risk reduction would be in his best interest. -Surgeon and player development manager aware -Cardiac clearance and anesthesia requests sent to Dr. Rubio -PFTs scheduled 01/04/25 -Damian Arreguin APRN.CNP [facility] 01-02-2025 Miscellaneous Notes Summary: SOC Updates Chart reviewed by Anesthesia, Dr. Lockwood: Patient's noncompliance is concerning. He is not taking the cardiac medications recommended after his heart catheterization 11/11. I do not see consistently documented HTN, so perhaps the medications need to be adjusted so that he tolerates them. He needs to follow up with is cardiac catheterization technologist. Has he had a stress test? He is not compliant with inhalers for COPD He is still smoking but has decreased from 1 PPD. On a positive note, he uses his CPAP. I don't know that any of this should prevent him from having this surgery for cancer, but his risk could be reduced with compliance to the medications recommended. I would like to see: 1. Results from PFTs as well as pulm note noting optimization- unclear to me how serious his pulmonary issues are but he is a lifelong smoker and is still smoking. 2. Wash Plant Operator's updated recommendations given intolerance of medications and acknowledgement of this procedure. 3. Stress test? Has he had this? Would cardiac catheterization technologist recommend this? This a high risk surgery, and I think he is at least moderate, likely high risk, for this procedure. Risk reduction would be in his best interest. -Surgeon and player development manager aware -Cardiac clearance and anesthesia requests sent to Dr. Rubio -PFTs scheduled 01/04/25 -Damian Arreguin APRN.COLOR BUFFER documented in this encounter [facility] 12-31-2024 Telephone encounter Note Secure chat started to see when patient can be treated. Schedule is full. Ada Negron [facility] 12-30-2024 Telephone encounter Note Can you tell from orders if provider is wanting to add more treatments? And who would inform if infusion on 01/17 needs canceled? Thank you [facility] Work Phone: 12-30-2024 Telephone encounter Note Jannie from Dr Arreguin's office called to schedule Iron Infusions, she stated Insurance did not need a prior auth and also that 01/17/2025 infusion may need cancelled due to surgery on 01/27/2025 [facility] 12-30-2024 Telephone encounter Note Summary: SOC Updates Called patient with Cardiac testing results. Encouraged patient to scheduled appt with Wash Plant Operator, Dr. Rubio to address new medications. Also reviewed recent lab work. Will order Iron sucrose 200 mg x 3. He would like to be scheduled at [facility], they were informed and will call the patient. Insurance called, there is no prior auth required for this infusion. Ref # [id number]. -Damian Arreguin APRN.MATTHEW [facility] 12-30-2024 Miscellaneous Notes Summary: SOC Updates Called patient with Cardiac testing results. Encouraged patient to scheduled appt with Wash Plant Operator, Dr. Rubio to address new medications. Also reviewed recent lab work. Will order Iron sucrose 200 mg x 3. He would like to be scheduled at [facility], they were informed and will call the patient. Insurance called, there is no prior auth required for this infusion. Ref # [id number]. -Damian Arreguin APRN.MATTHEW documented in this encounter [facility] 12-29-2024 Telephone encounter Note PSYCHOSOCIAL SCREENING ASSESSMENT Date of Service: December 29, 2024 Bill Estrada is a 64 year old male being seen for initial social work assessment. Diagnosis: Malignant neoplasm of lower third of esophagus New Primary Oncologist: Kemal Obregon MD Radiation Oncologist: ANNA Goals of Care: Curative intent Today's visit includes: self/patient and spouse Family History of Cancer: Mother: Colon; 2 Sisters: Breast SUPPORT NETWORK: Social Connections: Not on file Marital status: Child/Children: Yes. team primary care physician arrangements needed: No Siblings: 2 sisters and 1 brother Home Health Provider: No Community Services: No Marcella Identified: No Oriental Orthodox/Spirituality: Unknown Are these practices or beliefs that may affect or influence treatment? No EMPLOYMENT/FINANCIAL/HEALTH INSURANCE: Insurance: Medicare with co-insurance Prescription coverage: Yes Is the patient appropriate for referral to [facility] COBRA Assistance program? No Financial Distress: No : No FOOD INSECURITY Within the past year, have you worried about how you would buy or obtain food? No LIVING ARRANGEMENTS: Type: House- independent ranch Resides with: , Ronel Transportation Needs: No Transportation Needs (03/30/2024) PRAPARE - Transportation Lack of Transportation (Medical): No Lack of Transportation (Non-Medical): No FUNCTIONAL STATUS: Cognitive limitations: none Physical limitations: reports some dizziness Language barrier: No Hearing Impaired: No Speech Impaired: No Visual Impairments: No Special considerations/accommodations needed: Na HEALTH LITERACY: Do you have difficulty understanding medical instructions or other written materials you receive from you doctor or pharmacy? No Do have difficulty filling out medical forms by yourself? No The following interventions were put into place: NA MEDICATION ADHERENCE: Within the past 2 weeks, have you had difficulty remembering to take your medicine? No Within the past 2 weeks, did you ever miss taking your medications for reasons other than forgetting? No The following interventions were put into place: NA MENTAL HEALTH HISTORY: No History of combat/trauma: No Intimate Partner Violence: Not At Risk (11/03/2024) Safe at Home? Fear of Current or Ex-Partner: Not on file Emotionally Abused: Not on file Physically Abused: Not on file Sexually Abused: Not on file Safe at Home?: Yes Substance Use and Treatment History: denied History of Abuse: No Issues with: Sleep:No Eating:No Exercising: No Stress Management: No ADVANCE DIRECTIVES/LEGAL DOCUMENTS: Living Will: Yes Scanned into EPIC: Yes, provided to this date, will send to scanning Health Care Durable Power of Glass Cleaner: Yes Scanned into EPIC: provided to this date, will send to scanning Guardianship: No Scanned into EPIC:NA Reasons Advanced Directives were not Addressed: NA Advance Care Planning Goals of Care Date of Discussion: 12/29/2024 DIscussion Participants: Patient, Bill Estrada. Patient's , Ronel Estrada Clinical: MADISON Costa Patient/Family/Decision Makers: 1st: Ronel Estrada, ph: [phone] 2nd: Nicky Carter, daughter 3rd: Lukas Estrada, son In this encounter: Patient provided completed and notarized documents to this date. Pt declines needing to make any changes to the documentation. sent forms to internal scanning. SIGNATURE: OUMSANE Costa PATIENT NAME: Bill Estrada DATE: December 29, 2024 TIME: 11:03 AM PAGER/CONTACT #: COPING STATUS: Stress: Not on file Coping Strengths: supportive relationships with immediate family successful managing past crises hopefulness self advocate strong problem-solving skills ability to plan able to follow direction consistently over time able to communicate effectively future oriented and able to identify goals Current affect/mood: appropriate and hopeful Adjustment to diagnosis: responding appropriately and accepting help BARRIERS/CARE CHALLENGES: None Are barriers/care challenges identified likely to have an impact on the patient's quality of life during treatment? NA INTERVENTIONS/REFERRALS TO BE PROVIDED: Monitor patient response to treatment Communicate pertinent medical/psychosocial information to Cancer Center team Provide emotional support to patient/family Provided supportive counseling to the patient's Campus Monitor Continue follow up as needed Resources and Referrals: Internal: [facility] External: [facility] and Other [facility] CLINICAL IMPRESSION: Bill is a 64 year old male who has begun treatment for esophageal cancer. 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 He is accompanied today chair-side by his , Ronel. Despite felt frustration, pt and report they are both adjusting ok to his diagnosis and need for treatment. Pt reports treatment has gone well so far and denies any major side effects or concerns. When inquiring about supports while going through treatment, pt and report they are doing it on their own. When asked to elaborate, pt did not share much. SW oriented pt to SW role and explained all available resources/referrals. Pt declined any further needs at this time and agreed to reach out to SW if needs arise. Psychosocial Risk Criteria If positive for one or more of the following risk criteria, follow up every 30 days Age: NA Mental Health: NA Practical Needs: N/A PLAN: SW to follow pt at upcoming appointments and remain in contact with pt throughout treatment to address any psychosocial concerns if needed. Follow up appointment with SW in: PRN Assigned SW listed in Care Team tab: Yes MADISON Costa [facility] 12-29-2024 Miscellaneous Notes PSYCHOSOCIAL SCREENING ASSESSMENT Date of Service: December 29, 2024 Bill Estrada is a 64 year old male being seen for initial social work assessment. Diagnosis: Malignant neoplasm of lower third of esophagus New Primary Oncologist: Kemal Obregon MD Radiation Oncologist: NA Goals of Care: Curative intent Today's visit includes: self/patient and spouse Family History of Cancer: Mother: Colon; 2 Sisters: Breast SUPPORT NETWORK: Social Connections: Not on file Marital status: Child/Children: Yes. team primary care physician arrangements needed: No Siblings: 2 sisters and 1 brother Home Health Provider: No Community Services: No Marcella Identified: No Oriental Orthodox/Spirituality: Unknown Are these practices or beliefs that may affect or influence treatment? No EMPLOYMENT/FINANCIAL/HEALTH INSURANCE: Insurance: Medicare with co-insurance Prescription coverage: Yes Is the patient appropriate for referral to [facility] COBRA Assistance program? No Financial Distress: No : No FOOD INSECURITY Within the past year, have you worried about how you would buy or obtain food? No LIVING ARRANGEMENTS: Type: House- independent ranch Resides with: Ronel Transportation Needs: No Transportation Needs (03/30/2024) PRAPARE - Transportation Lack of Transportation (Medical): No Lack of Transportation (Non-Medical): No FUNCTIONAL STATUS: Cognitive limitations: none Physical limitations: reports some dizziness Language barrier: No Hearing Impaired: No Speech Impaired: No Visual Impairments: No Special considerations/accommodations needed: Na HEALTH LITERACY: Do you have difficulty understanding medical instructions or other written materials you receive from you doctor or pharmacy? No Do have difficulty filling out medical forms by yourself? No The following interventions were put into place: NA MEDICATION ADHERENCE: Within the past 2 weeks, have you had difficulty remembering to take your medicine? No Within the past 2 weeks, did you ever miss taking your medications for reasons other than forgetting? No The following interventions were put into place: NA MENTAL HEALTH HISTORY: No History of combat/trauma: No Intimate Partner Violence: Not At Risk (11/03/2024) Safe at Home? Fear of Current or Ex-Partner: Not on file Emotionally Abused: Not on file Physically Abused: Not on file Sexually Abused: Not on file Safe at Home?: Yes Substance Use and Treatment History: denied History of Abuse: No Issues with: Sleep:No Eating:No Exercising: No Stress Management: No ADVANCE DIRECTIVES/LEGAL DOCUMENTS: Living Will: Yes Scanned into EPIC: Yes, provided to this date, will send to scanning Health Care Durable Power of Glass Cleaner: Yes Scanned into EPIC: provided to this date, will send to scanning Guardianship: No Scanned into EPIC:NA Reasons Advanced Directives were not Addressed: NA Advance Care Planning Goals of Care Date of Discussion: 12/29/2024 DIscussion Participants: Patient, Bill Estrada. Patient's , Ronel Estrada Clinical: MADISON Costa Patient/Family/Decision Makers: 1st: Ronel Estrada, ph: .[phone] 2nd: Nicky Carter, daughter 3rd: Lukas Estrada, son In this encounter: Patient provided completed and notarized documents to this date. Pt declines needing to make any changes to the documentation. SW sent forms to internal scanning. SIGNATURE: OUSMANE Costa PATIENT NAME: Bill Estrada DATE: December 29, 2024 TIME: 11:03 AM PAGER/CONTACT #: COPING STATUS: Stress: Not on file Coping Strengths: supportive relationships with immediate family successful managing past crises hopefulness self advocate strong problem-solving skills ability to plan able to follow direction consistently over time able to communicate effectively future oriented and able to identify goals Current affect/mood: appropriate and hopeful Adjustment to diagnosis: responding appropriately and accepting help BARRIERS/CARE CHALLENGES: None Are barriers/care challenges identified likely to have an impact on the patient's quality of life during treatment? NA INTERVENTIONS/REFERRALS TO BE PROVIDED: Monitor patient response to treatment Communicate pertinent medical/psychosocial information to Cancer Center team Provide emotional support to patient/family Provided supportive counseling to the patient's Campus Monitor Continue follow up as needed Resources and Referrals: Internal: [facility] External: [facility] and Other [facility] CLINICAL IMPRESSION: Bill is a 64 year old male who has begun treatment for esophageal cancer. 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 He is accompanied today chair-side by his , Ronel. Despite felt frustration, pt and report they are both adjusting ok to his diagnosis and need for treatment. Pt reports treatment has gone well so far and denies any major side effects or concerns. When inquiring about supports while going through treatment, pt and report they are doing it on their own. When asked to elaborate, pt did not share much. SW oriented pt to SW role and explained all available resources/referrals. Pt declined any further needs at this time and agreed to reach out to SW if needs arise. Psychosocial Risk Criteria If positive for one or more of the following risk criteria, follow up every 30 days Age: NA Mental Health: NA Practical Needs: N/A PLAN: SW to follow pt at upcoming appointments and remain in contact with pt throughout treatment to address any psychosocial concerns if needed. Follow up appointment with SW in: PRN Assigned SW listed in Care Team tab: Yes OUSMANE Costa-S documented in this encounter [facility] 12-29-2024 Note [facility] 12-29-2024 History of Present illness Narrative Images from the original note were not included. Renay Cloud M.D. Surgical Oncology [address] [facility], [address] [place] [address] Bill Estrada is a 64-year-old male with a history of lower esophageal adenocarcinoma, presenting for follow-up. Bill recently completed his fourth dose of neoadjuvant FLOT chemotherapy this past week, which he tolerated reasonably well. He reports experiencing leukopenia and significant nausea approximately two weeks ago, for which he received an injection to boost his white blood cell count. This injection reportedly caused bone pain, which has since resolved. He denies any issues with dysphagia, weight loss, or changes in bowel habits. He is able to eat more comfortably now and has been able to keep food down for the past few days. He denies any recent surgeries or major changes to his medical history. Bill has a history of Johnson's esophagus and expresses frustration about not receiving regular surveillance endoscopies, which he believes could have potentially prevented his current condition. He also has a pacemaker, which was replaced recently, and notes that his cardiac catheterization technologist was unaware of his pacemaker, leading to further frustration with the healthcare system. The ROS, medical, surgical, family, and social history were reviewed by Renay Cloud MD. BP 110/74 Pulse 100 Ht 157.5 cm (5' 2) SpO2 96% BMI 31.64 kg/m No weight on file for this encounter. Physical Exam Constitutional: General: He is not in acute distress. HENT: Head: Normocephalic and atraumatic. Eyes: Pupils: Pupils are equal, round, and reactive to light. Neck: Thyroid: No thyromegaly. Trachea: No tracheal deviation. Cardiovascular: Rate and Rhythm: Normal rate and regular rhythm. Heart sounds: Normal heart sounds. Pulmonary: Effort: Pulmonary effort is normal. No respiratory distress. Breath sounds: Normal breath sounds. No stridor. Abdominal: General: There is no distension. Palpations: Abdomen is soft. Tenderness: There is no abdominal tenderness. Musculoskeletal: General: No deformity. Normal range of motion. Skin: General: Skin is warm and dry. Findings: No erythema or rash. Neurological: Mental Status: He is alert and oriented to person, place, and time. Psychiatric: Mood and Affect: Affect normal. Judgment: Judgment normal. 1. 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 Recent PET CT scan shows no new worrisome disease; awaiting final read. Scheduled for pulmonary function tests to assess surgical risk. Discussed surgical plan involving esophagectomy with gastric pull-up, including risks such as pulmonary complications and aspiration. Educated on postoperative care, including dietary modifications and the use of a feeding tube. Discussed potential need for additional chemotherapy post-surgery. Patient understands and agrees with the treatment plan. Addendum: Final read of PET/CT now available and shows potentially new hilar lymphadenopathy concerning for metastatic disease. Will discuss with medical oncology regarding need for biopsy. Recording using INTTRA software for draft documentation of the visit was discussed with the patient/authorized field service representative; all questions welcomed and answered. Patient/authorized field service representative agreed to proceed I spent a total of 40 minutes on the date of the service which included preparing to see the patient, completing clinical documentation, performing a medically appropriate examination, counseling and educating the patient/family/caregiver, and independently interpreting results (not separately reported). Renay Cloud MD 12/29/2024 8:28 AM documented in this encounter [facility] 12-28-2024 History of Present illness Narrative Summary: SOC Images from the original note were not included. Damian Arreguin APRN.[facility] ([facility]) [address] [facility], [address] [place] [id number] The patient consented to the use of INTTRA software for draft documentation of the visit consistent with [facility] s Notice of Privacy Practices. Patient: Bill Estrada Date of : 1960 Subjective Scheduled OR Date: TBD Surgeon: Dr. Cloud PCP: Josef Garcia MD DIAGNOSES: Malignant neoplasm of lower third of esophagus PLANNED PROCEDURE: Esophagectomy HPI Bill Estrada is a 64 year old male, who was recently evaluated for surgery and has elected to proceed with the above mentioned surgical intervention. Patient has a h/o NSTEMI, SSS with pacemaker replaced 01/2024, COPD, smoker, malnutrition. Patient also has a h/o malignant neoplasm of lower third of esophagus. He follows with [facility] at [facility], and has been undergoing chemotherapy. He has a port right upper chest. Patient has met with Dr. Cloud and above mentioned surgery is TBD. Bill reports a recent episode of dizziness with near-syncope yesterday, lasting a few seconds. He did not measure his blood pressure at the time and admits to inadequate hydration. He has been experiencing significant fatigue and weakness, which he attributes to his chemotherapy treatments. His last chemotherapy session was 2 weeks ago, with the next session scheduled for tomorrow. He notes that the treatments typically cause fatigue the day after administration, but he feels decent by the third day. He has also been experiencing nausea, emesis, diarrhea, and constipation, which he believes are related to the chemotherapy. He denies hematochezia, melena, hemoptysis, or recent fevers or chills. Bill has a history of esophageal stent placement and reports poor appetite, consuming less than 50% of his meals. He has lost approximately 39 lbs over the past 6 months, with a current weight of 173 lbs, down from 212 lbs. He supplements his diet with 1-2 Ensure shakes daily. He reports difficulty consuming cold liquids and denies any other dietary restrictions. He denies taking any multivitamins or vitamin D supplements and is unsure if he has ever had his vitamin D levels checked. He denies any recent iron or blood transfusions. He reports drinking minimal fluids, approximately half a glass of water and a Pepsi daily, and acknowledges that his urine is dark and concentrated. He denies any issues with urination. Bill has a history of dyspnea and is prescribed Anoro Ellipta and albuterol inhalers, though he admits to non-compliance with the Anoro Ellipta. He also uses a CPAP machine regularly. He has a history of smoking, currently smoking 6-8 cigarettes per day, down from a pack per day. He has attempted to quit smoking three times in the past, with the longest period of abstinence being almost 4 months. He denies any current use of nicotine patches or medications for smoking cessation. He has been on medication in the past, but is not sure what it was called. Bill has a history of a pacemaker, which was replaced in January of last year. He denies any history of myocardial infarction, TIA, or heart failure. He reports a recent episode of chest pain and gagging following esophageal stent placement, which led to an emergency department visit and subsequent transfer to [facility]. He was informed that he was having a myocardial infarction, but a heart catheterization revealed no significant findings. He was prescribed Plavix, Enestro, Jardiance, Lopressor, but discontinued these after 3 days due to feeling like a zombie. He denies any follow-up with a cardiac catheterization technologist since the incident. He is also prescribed Lipitor, but admits to non-compliance. He denies any history of other vascular diseases. Bill reports two falls in the past 3-4 weeks, which he attributes to leg pain and weakness. He denies any significant injuries from the falls. He denies any history of delirium or issues with memory. He reports feeling down at times, particular, ly after receiving a shot to boost his white blood cell count, which made him feel sicker than a dog for 6 days. He denies any thoughts of self-harm or harm to others. He reports a good support system at home, including his and 9-year-old grandson. He does have advanced directives and will bring them in to be scanned. PAST MEDICAL HISTORY PAST MEDICAL HISTORY Diagnosis Date Abdominal pain, left lower quadrant Arrhythmia Breakdown (mechanical) of cardiac electrode, initial encounter Carotid sinus hypersensitivity COPD (chronic obstructive pulmonary disease) ([facility]) Diarrhea Diverticulosis of colon (without mention of hemorrhage) GERD (gastroesophageal reflux disease) Kidney stones NSTEMI (non-ST elevated myocardial infarction) ([facility]) Other specified heart block Presence of cardiac pacemaker 02/16/2024 Restless leg syndrome Sick sinus syndrome ([facility]) 02/16/2024 Sinus arrest 02/16/2024 Syncope and collapse FAMILY HISTORY FAMILY HISTORY Problem Relation Age of Onset Colon Cancer Mother 80 Hypertension Mother Breast Cancer Sister Breast Cancer Sister PAST SURGICAL HISTORY PAST MEDICAL HISTORY Diagnosis Date Abdominal pain, left lower quadrant Arrhythmia Breakdown (mechanical) of cardiac electrode, initial encounter Carotid sinus hypersensitivity COPD (chronic obstructive pulmonary disease) ([facility]) Diarrhea Diverticulosis of colon (without mention of hemorrhage) GERD (gastroesophageal reflux disease) Kidney stones NSTEMI (non-ST elevated myocardial infarction) ([facility]) Other specified heart block Presence of cardiac pacemaker 02/16/2024 Restless leg syndrome Sick sinus syndrome (HCC) 02/16/2024 Sinus arrest 02/16/2024 Syncope and collapse ALLERGIES ALLERGIES Allergen Reactions Morphine Other: See Comments personality change Percocet [Oxycodone* GI Upset MEDICATIONS Current Outpatient Medications Medication Sig Dispense Refill ergocalciferol 50,000 unit capsule (VITAMIN D2, DRISDOL) Take 1 capsule by mouth one time a week. 8 capsule 0 ALBUTEROL INHALATION Inhale as instructed. sucralfate (CARAFATE) 100 mg/mL suspension Take 10 mL by mouth four times daily. 500 mL 3 ondansetron (ZOFRAN) 8 mg tablet Take 1 tablet by mouth every 8 hours as needed for nausea/vomiting. 30 tablet 1 dicyclomine (BENTYL) 10 mg capsule Take 1 capsule by mouth three times a day as needed. 30 capsule 0 lidocaine-prilocaine (EMLA) 2.5-2.5 % cream Apply to affected area as needed. 30 g 2 LIPITOR 40 mg tablet Take 40 mg by mouth once daily. PLAVIX 75 mg tablet Take 75 mg by mouth once daily. metoprolol succinate ER (TOPROL XL) 25 mg 24 hr tablet Take 25 mg by mouth once daily. (Patient not taking: Reported on 12/05/2024) ENTRESTO 24-26 mg tablet HYDROcodone-Acetaminophen (NORCO) 7.5-325 mg per tablet Take 1 tablet by mouth every 6 hours as needed. prochlorperazine (COMPAZINE) 5 mg tablet Take 2 tablets by mouth every 6 hours as needed. 30 tablet 2 gabapentin (NEURONTIN) 400 mg capsule Take 400 mg by mouth two times a day. pravastatin sodium (PRAVASTATIN ORAL) Take 1 tablet by mouth daily at bedtime. (Patient not taking: Reported on 12/05/2024) ANORO ELLIPTA 62.5-25 mcg/actuation inhaler Inhale 1 puff as instructed once daily. omeprazole (PRILOSEC) 20 mg capsule Take 1 capsule by mouth once daily. 30 capsule 6 No current facility-administered medications for this visit. Review of Systems Constitutional: (+) dizziness, (+) near-syncope, (+) weakness, (+) fatigue, (+) weight loss, (+) decreased appetite, (-) fever, (-) chills Eyes: (+) transient vision loss Ears/Nose/Mouth/Throat: (+) sore throat, (+) throat dryness Cardiovascular: (-) chest pain Respiratory: (+) shortness of breath, (+) wheezing, (-) pneumonia, (-) bronchitis Gastrointestinal: (+) nausea, (+) vomiting, (+) diarrhea, (+) constipation, (+) heartburn, (-) hematochezia, (-) melena, (-) hematemesis Genitourinary: (-) hematuria, (-) dysuria Musculoskeletal: (+) leg pain, (+) leg weakness, (+) falls Skin: (-) rash, (-) hives Neurological: (-) memory loss, (-) hallucinations Psychiatric: (+) depressed mood, (-) suicidal ideation OBJECTIVE PHYSICAL EXAMINATION: BP 110/74 (BP Position: Sitting) Pulse 100 Resp 18 Ht 157.5 cm (5' 2) Wt 78.5 kg (173 lb) SpO2 96% BMI 31.64 kg/m Body mass index is 31.64 kg/m . General: No acute distress. CV: Regular rate and rhythm; no carotid bruits. Resp: Lungs clear to auscultation bilaterally. Abd: Bowel sounds present. MSK/Ext: No ankle edema. ADVANCED DIRECTIVES ADVANCED CARE PLANNING: Has HCPOA and Has Living Will SURROGATE DECISION MAKERS: Spouse, Ronel, number on file and verifies -If yes, does the patient have a copy for [facility] to have on file: No, will bring in to be scanned MENTAL STATUS: 4AT Delirium Test: -Alertness: Normal=0 Mild sleepiness for <10 seconds after waking, then normal=0 Clearly abnormal=4 -Abbreviated Mental Test: Age, , Location, current year(No mistake=0, One mistake=1, Two or more=2) -Attention: Months of the year backwards-(7 or more=0, less than 7=1, intestable=2) -Acute Change: Fluctuation in alertness, cognition, hallucinations over the past 2 weeks (No=0, yes=4) Total: 0 4 or more:possible delirium and/or cognitive impairment 1-3: possible cognitive impairment 0:Delirium or severe cognitive impairment unlikely Discussed possibility of delirium during hospital course CT BRAIN : IMPRESSION: 1. No CT evidence of an acute intracranial process, mass, or pathologic enhancement to suggest intracranial metastatic disease. 2. Age-appropriate CT of the brain. Social History: Limited finances/resources: no Home assistance/caregiver required after surgery: no Currently involved with Case Management/Hostess Host: no Home environment/homeless/hygiene concerns: no PHQ-9 Questionnaire: Denies any major symptoms No data to display (0-4) minimal depression, (5-9) mild depression, (10-14) moderate depression, (15-19) moderately severe depression, (20-27) severe depression CELE-7 (Anxiety): denies any major symptoms No Data Recorded (0-4) minimal anxiety, (5-9) mild anxiety, (10-14) moderate anxiety, (15-21) severe anxiety Functional Status: Clinical Frailty Scale: -Very Fit- Exercise regularly (1) -Well- Occasionally active (2) -Managing Well- Not regularly active (3) -Vulnerable- Limited activity/tired throughout day/slowed up (4) -Mildly Frail- Help needed with ADLs (finances, medications, transportation) (5) -Moderately Frail- Help with all outside activities and with keeping the house, stairs/bathing/dressing (6) -Severely Frail- Completely dependent for personal care (7) -Very Severely frail- Approaching End of Life (8) -Terminally Ill- Life expectancy < 6 months (9) SCORE: 3 Score 1-3- Walking Program Score 4-6- Referral to Outpatient PT/OT Score 7-9- Referral to Home PT/OT Functional assessment: WNL=Within normal limits Substance Abuse: Denies The Alcohol Use Disorders Identification Test (AUDIT): No data to display The scoring instructions are as follows: Risk Level Intervention AUDIT score Zone I Alcohol Education 0-7 Zone II Simple Advice 8-15 Zone III Simple Advice plus Brief Counseling and Continued Monitoring 16-19 Zone IV Referral to Specialist for Diagnostic Evaluation and Treatment 20-40 SMOKER/TOBACCO USE: Yes -Patient smokes: 50 pack years, has cut down to 1/2 a PPD -If yes, was the patient provided with cessation education: Yes -If yes, would the patient like pharmacotherapy to assist in cessation: not at this time -Patient was advised to completely stop smoking prior to initiation of nicotine replacement therapy. Drug Abuse Screen Test (DAST-10): Denies No data to display Sleep Apnea STOP BANG Questionnaire H/o MAGGI, compliant with CPAP Nutrition: Perioperative Nutrition Score (MARY) BMI <18.5: No BMI <20 if age >65: No Eating less than 50% of normal diet in the preceding week: Yes Unplanned weight loss >10% in past 6 months: Yes Albumin Level less than 3: no Albumin Date Value Ref Range Status 12/27/2024 4.1 3.9 - 4.9 g/dL Final Venous Thromboembolism Risk Assessment: Hx clotting disorder: No Hx PE/DVT: no OAC Use: No, was prescribed Plavix, not taking ASA use: No Pulmonology: Asthma: no COPD: yes, On Anoro Ellipta inhaler, Albuterol, does not use these Hypoventilation syndrome: no Recent exacerbation: No recent exacerbation, PNA, or bronchitis 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 Patient ID x 2. PM check 1st day post op (old rv lead extracted, new rv lead and generator changed 03/29/24). Aquacel dressing intact to left upper chest with scant amount of old drainage noted to center of dressing. No hematoma noted. Presenting rhythm /VS @ 75 bpm. No VT/VF events. No mode switch events. Measurements stable. EGM's without noise. No changes made. EKG 02/22/2024: ASSESSMENT/PLAN: Bill Estrada is a 64 year old male, who was recently evaluated for surgery. Patient has a h/o NSTEMI, SSS with pacemaker replaced 01/2024, COPD, smoker, malnutrition. Patient also has a h/o malignant neoplasm of lower third of esophagus. He follows with HEMO/ONC at [facility], and has been undergoing chemotherapy. He has a port right upper chest. Patient has met with Dr. Cloud and above mentioned surgery is TBD. Vulnerabilities Assessed at Visit: 1.) MAGGI 2.) Unintentional weight loss 3.) Anemia 4.) Smoker 5.) NSTEMI? Will get records from [place], recommend Cardiac Clearance 6.) SOBE: noncompliant with inhalers, sees pulm, has PFTs 01/04, recommend pulm clearance ACS Surgical Risk Calculator: 77745 - Partial esophagectomy, distal two-thirds, with thoracotomy and separate abdominal incision, with or without proximal gastrectomy; with thoracic esophagogastrostomy, with or without pyloroplasty ([place]): 32.3% risk of serious complication, 2.8% risk of mortality 1. Preoperative examination (Z01.818) - Patient is scheduled for esophagectomy in approximately 3-4 weeks. - Discussed importance of optimizing health prior to surgery to ensure best possible outcomes. - Ordered pulmonary function testing scheduled for 01/04. - Patient to follow up with primary care physician Dr. Garcia for surgical clearance. - Will send note to anesthesia review group for further evaluation. NUTRITION: MARY score: positive Albumin Date Value Ref Range Status 12/27/2024 4.1 3.9 - 4.9 g/dL Final -Education provided with reference material given to patient -Impact nutritional supplements given to start 5 days prior to surgery, BID -Consult to RD , has met with Marketing Project Lead 11/22/2024 -Vitamin D Level ordered 50,000 units weekly x 8 -Make sure to eat source of lean protein at each meal, aim for 80 grams of protein a day -Aim for 2 servings of leafy green vegetables a day ANEMIA: Yes -Hgb 10.0 12/13/2024 -Ordered: Iron, TIBC, Ferritin, CBC, CRP -Recommended referral to Hematology for iron infusions if warranted -Follows with HEMO/ONC for chemotherapy at [facility] CKD: No Creatinine Date Value Ref Range Status 12/27/2024 0.65 (L) 0.73 - 1.22 mg/dL Final -[id number] 12/05/2024 -Reviewed with the patient the importance of hydration pre/postoperatively. -Aim for 64 ounces of fluid a day DIABETES: No -BG 98 12/05/2024 MOBILITY: -Frailty score: 3=walking program -Pedometer: increase your steps by 100 every couple of days, goal is 10-20% increase over baseline -Chair exercise packet given for strengthening COGNITION: -4AT score: 0= Delirium or severe cognitive impairment unlikely -Patient should bring all sensory aids with them DOS -Delirium assessments to be performed per protocol during hospital course -Discussed risk of delirium during hospital course -Discussed importance of a delegated health proxy, Spouse Ronel -Advanced Directives packet to be brought in to be scanned -[place] Hierarchy of Decision Makin-Legal Guardian 2-HCPOA 3-Spouse 4-Consensus of Adult Children 5-Consensus of Parents 6- Consensus of Adult Siblings 7-Closest Relative PSYCHOSOCIAL: -Educational material given to patient for stress reduction/management -Denies any major symptoms of depression or anxiety CARDIAC: Recommended cardiac clearance: Yes, [facility], Dr. Rubio -NSTEMI: 10/18/2024?, Recent episode with suspected NSTEMI; patient was transferred to [facility] -Reports had a heart cath which was clear - Patient was prescribed Plavix, Lopressor, Jardiance, Enestro but discontinued after 3 days due to feeling unwell. - Will request records from [facility] for review by anesthesia. - Follow-up with cardiac catheterization technologist at [facility] scheduled in one year. -SSS: s/p PPM replacement 01/2024: dual lead -CHF: ? Was started on Jardiance and Enestro, not taking -Denies any CP, or palpitations, does have chronic SOBE -METs <5, feels due to leg weakness -Continue BB and statin during preoperative period as prescribed -Hold SINDY/ARBs DOS VENOUS THROMBOEMBOLISM RISK ASSESSMENT: -Surgeon to determine prophylaxis regime -Managing provider contacted for instructions for OAC -Was placed on Plavix for NSTEMI 10/18/2024?, is not taking PULMONOLOGY: -Stop BANG: h/o MAGGI, compliant with CPAP, instructed to bring in DOS if ok to use postop per Dr. Cloud -24 hour SpO2 monitoring during hospital course -Start IS, instructions reviewed -Recommend using IS 10 times an hour while awake during hospital course -Tobacco cessation encouraged, counseling was given about the harmful effects of tobacco use -50 pack years, has cut down to 6-8 a day -COPD: on ANORO ELIPTA, Albuterol inhaler, has not used either in several months -Encouraged compliant use, and use DOS -PFTs ordered per surgeon, scheduled 01/04/2025 -Follows with Pulmonology, [facility], recommend clearance -The function of the surgery optimization clinic is to optimize modifiable risk factors prior to surgery. This clinic does not provide medical clearance for surgery. As always, the decision whether or not to proceed with surgery should be based on an evaluation of the risks versus benefits of the procedure, and should be made between the patient and the surgeon. -A letter and copy of this encounter was sent to referring surgeon and the patient's primary care provider. -Surgery optimization clinic RN will follow up with patient on areas addressed for optimization. I spent a total of 120 minutes on the date of the service which included preparing to see the patient, [id number] patient care, completing clinical documentation, obtaining and/or reviewing separately obtained history, performing a medically appropriate examination, counseling and educating the patient/family/caregiver, ordering medications, tests, or procedures, communicating with other HCPs (not separately reported), independently interpreting results (not separately reported), and communicating results to the patient/family/caregiver. ELECTRONICALLY SIGNED AND DATED BY: Damian Arreguin APRN, [facility] documented in this encounter [facility] 12-28-2024 Note [facility] 12-27-2024 Telephone encounter Note Keep patient as scheduled. Patient will complete zara-adjuvant treatment with C4 of FLOT on 12/29/24. Patient to keep appointment with Dr. Cloud and we will follow up with patient after surgery. Josephine Mcghee RN [facility] Work Phone: 12-27-2024 Miscellaneous Notes Keep patient as scheduled. Patient will complete zara-adjuvant treatment with C4 of FLOT on 12/29/24. Patient to keep appointment with Dr. Cloud and we will follow up with patient after surgery. Josephine Mcghee RN Please advise of AVS for today 12/27. documented in this encounter [facility] 12-27-2024 Telephone encounter Note Please advise of AVS for today 12/27. [facility] Work Phone: 12-27-2024 Note [facility] 12-27-2024 History of Present illness Narrative (Elements copied from my note dated October 28, 2024, have been reviewed and updated where appropriate, and all reflect current assessment and medical decision making from today's encounter, December 27, 2024) HISTORY OF PRESENT ILLNESS: Bill Estrada is a 64 year old male started with dysphagia in July 2024, y end of August very hard. Currently taking only shakes. Planned for stent. EGD done September 02, 2024 Mass seen, biopsy shows adenocarcinoma. Feeling dizzy, present for long time, maybe worse now Here for follow up post interim PET scan, doing ok, tolerating chemo well, cold neuropathy only, nausea for 6 days after neulasta. Eating well. PET not yet read, still see uptake to my eye. 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 Estrella operative FLOT, cycle 4 this week. Will keep an eye out for formal PET report 2. He will see Dr Cloud as scheduled. . Written and verbal health teaching given to patient, patient verbalizes understanding and agrees with treatment plan. PAST MEDICAL HISTORY Diagnosis Date Abdominal pain, left lower quadrant Arrhythmia Breakdown (mechanical) of cardiac electrode, initial encounter Carotid sinus hypersensitivity COPD (chronic obstructive pulmonary disease) (HCC) Diarrhea Diverticulosis of colon (without mention of hemorrhage) GERD (gastroesophageal reflux disease) Kidney stones NSTEMI (non-ST elevated myocardial infarction) ([facility]) Other specified heart block Presence of cardiac pacemaker 02/16/2024 Restless leg syndrome Sick sinus syndrome (HCC) 02/16/2024 Sinus arrest 02/16/2024 Syncope and collapse PAST SURGICAL HISTORY Procedure Laterality Date ANESTHESIA HERNIA REPAIR LOWER ABDOMEN NOS Umbilical hernia ANTERIOR INTERBODY FUSION, CERVICAL 2007 C4-C5 BASIC PACEMAKER DUAL CHAMBER Left 07/15/2013 [employer] dual-chamber pacemaker system implant; Juan C Lorenzo, Dr. Gant CHOLECYSTECTOMY 2007 COLONOSCOPY FLX DX W/COLLJ SPEC WHEN PFRMD 08/20/2005 COLONOSCOPY FLX DX W/COLLJ SPEC WHEN PFRMD 07/06/2019 adenomatous polyps, repeat in 3 years ESOPHAGOGASTRODUODENOSCOPY TRANSORAL DIAGNOSTIC 07/06/2019 [facility], repeat in 3 years PACEMAKER LEAD INSERTION/REVISION/REMOVAL Left 03/29/2024 SJM/Pradhan system; RV lead extracted and replaced with new RV lead, pacemaker generator changed; old RA lead still in use with excellent function; MRI conditional system; [facility] Dr. Zapien PAST SURGICAL HISTORY OF 09/01/2024 Esophagus Biopsy SURG TX ANAL FISTULA INTERSPHINCTERIC 09/01/2008 anterior fistula FAMILY HISTORY Problem Relation Age of Onset Colon Cancer Mother 80 Hypertension Mother Breast Cancer Sister Breast Cancer Sister Social History Tobacco Use Smoking status: Every Day Current packs/day: 1.00 Average packs/day: 1 pack/day for 50.2 years (50.2 ttl pk-yrs) Types: Cigarettes Start date: 10/12/1974 Smokeless tobacco: Never Tobacco comments: Pt has cut back to 1/2 pack daily. Vaping Use Vaping status: Never Used Substance Use Topics Alcohol use: Not Currently Comment: a few times a year Drug use: No ALLERGIES: ALLERGIES Allergen Reactions Morphine Other: See Comments personality change Percocet [Oxycodone* GI Upset CURRENT OUTPATIENT MEDICATIONS: dicyclomine (BENTYL) 10 mg capsule Take 1 capsule by mouth three times a day as needed. lidocaine-prilocaine (EMLA) 2.5-2.5 % cream Apply to affected area as needed. LIPITOR 40 mg tablet Take 40 mg by mouth once daily. ENTRESTO 24-26 mg tablet HYDROcodone-Acetaminophen (NORCO) 7.5-325 mg per tablet Take 1 tablet by mouth every 6 hours as needed. prochlorperazine (COMPAZINE) 5 mg tablet Take 2 tablets by mouth every 6 hours as needed. gabapentin (NEURONTIN) 400 mg capsule Take 400 mg by mouth two times a day. ANORO ELLIPTA 62.5-25 mcg/actuation inhaler Inhale 1 puff as instructed once daily. omeprazole (PRILOSEC) 20 mg capsule Take 1 capsule by mouth once daily. potassium chloride (KLOR-CON) 20 mEq packet Take 20 mEq by mouth once daily. (Patient not taking: Reported on 12/05/2024) lidocaine-prilocaine (EMLA) 2.5-2.5 % cream Apply 60 minutes before accessing port. (Patient not taking: Reported on 12/27/2024) PLAVIX 75 mg tablet Take 75 mg by mouth once daily. JARDIANCE 10 mg tablet Take 10 mg by mouth once daily. (Patient not taking: Reported on 12/05/2024) metoprolol succinate ER (TOPROL XL) 25 mg 24 hr tablet Take 25 mg by mouth once daily. (Patient not taking: Reported on 12/05/2024) PROTONIX 40 mg tablet Take 40 mg by mouth once daily. (Patient not taking: Reported on 11/21/2024) pravastatin sodium (PRAVASTATIN ORAL) Take 1 tablet by mouth daily at bedtime. (Patient not taking: Reported on 12/05/2024) REVIEW OF SYSTEMS: GENERAL: No fever, night sweats, weight loss or malaise. All other reviewed and negative other than HPI. PHYSICAL EXAMINATION: VITAL SIGNS: BP 117/70 Pulse 103 Temp (Src) 98.2 (Oral) Wt 172 lb 8 oz (78.2kg) SpO2 96% GENERAL APPEARANCE: Well appearing, in no acute distress, alert and oriented x3, well-hydrated, well nourished. I spent a total of 30 minutes on the date of the service which included preparing to see the patient, [id number] patient care, completing clinical documentation, obtaining and/or reviewing separately obtained history, counseling and educating the patient/family/caregiver, ordering medications, tests, or procedures, independently interpreting results (not separately reported), communicating results to the patient/family/caregiver, and care coordination (not separately reported). Electronically Signed: Kemal Obregon MD December 27, 2024 documented in this encounter [facility] 12-26-2024 History of Present illness Narrative RADIOLOGY SERVICE PROGRESS NOTE SERVICE DATE: 12/26/2024 SERVICE TIME: 10:55 AM PATIENT IDENTITY VERIFICATION COMPLETED USING TWO (2) STANDARD IDENTIFIERS: Name and Date of confirmed by patient verbally FALL SCREENING: Has the patient had 2 falls in the last year or 1 fall with injury or currently using an Ambulatory Assistive Device (Walker, Cane, Wheelchair, Crutches, etc.)? Yes, Patient High Risk for Falls What interventions were put in place to prevent falls during this visit? Increased Observations by Caregivers PATIENT GENDER DATA: .male : No ALLERGIES: Reviewed and unchanged MEDICATIONS REVIEWED: Not applicable PATIENT RELEVANT IMPLANT DATA REVIEWED: Not Applicable PATIENT PRESENTS WITH AN IMPLANTABLE OR ATTACHED SHINGLE CUTTER: No CREATININE: Creatinine Date Value Ref Range Status 12/05/2024 0.55 (L) 0.73 - 1.22 mg/dL Final 11/21/2024 0.66 (L) 0.73 - 1.22 mg/dL Final 11/07/2024 0.71 (L) 0.73 - 1.22 mg/dL Final Estimated Glomerular Filtration Rate Date Value Ref Range Status 12/05/2024 111 >=60 mL/min/1.73m Final Comment: Estimated Glomerular Filtration Rate (eGFR) is calculated using the 2020 CKD-EPI creatinine equation. This equation utilizes serum creatinine, sex, and age as parameters. The creatinine assay has traceable calibration to isotope dilution-mass spectrometry. Refer to KDIGO guidelines for clinical interpretation. In patients with unstable renal function, e.g. those with acute kidney injury, the eGFR may not accurately reflect actual GFR. P.O.C.T. RESULTS: N/A December 26, [address] PERFORMED: No IV SITE: Ambulatory: NM only - direct IV injection in the Right antecubital site POST EXAM PIV STATUS: Discontinued PROCEDURE TYPE: NM INJECT: PET/CT BODY SCAN. 12.0 mCi F18 FDG. Administered By: cuong . No other medications given.. ADMINISTRATION TIME: 1050 PATIENT DISCHARGED TO: Ambulatory patient, left [place] department area. Is this a therapy: No A Diagnostic radioactive procedure has taken place, with no further precautions necessary other than routine body substance precautions. More information regarding radiation safety can be found using this link: [email or web address] SIGNATURE: RT Pancho(Young) PATIENT NAME: Bill Estrada DATE: December 26, 2024 TIME: 10:55 AM PAGER/CONTACT #: documented in this encounter [facility] 12-26-2024 Note HNO ID: [id number] Author: DARON CLEMENS RT(R) Service: Nuclear Medicine Author Type: Technologist Type: Progress Notes Filed: 12/26/2024 10:56 Note Text: RADIOLOGY SERVICE PROGRESS NOTE SERVICE DATE: 12/26/2024 SERVICE TIME: 10:55 AM PATIENT IDENTITY VERIFICATION COMPLETED USING TWO (2) STANDARD IDENTIFIERS: Name and Date of confirmed by patient verbally FALL SCREENING: Has the patient had 2 falls in the last year or 1 fall with injury or currently using an Ambulatory Assistive Device (Walker, Cane, Wheelchair, Crutches, etc.)? Yes, Patient High Risk for Falls What interventions were put in place to prevent falls during this visit? Increased Observations by Caregivers PATIENT GENDER DATA: .male : No ALLERGIES: Reviewed and unchanged MEDICATIONS REVIEWED: Not applicable PATIENT RELEVANT IMPLANT DATA REVIEWED: Not Applicable PATIENT PRESENTS WITH AN IMPLANTABLE OR ATTACHED SHINGLE CUTTER: No CREATININE: Creatinine Date Value Ref Range Status 12/05/2024 0.55 (L) 0.73 - 1.22 mg/dL Final 11/21/2024 0.66 (L) 0.73 - 1.22 mg/dL Final 11/07/2024 0.71 (L) 0.73 - 1.22 mg/dL Final Estimated Glomerular Filtration Rate Date Value Ref Range Status 12/05/2024 111 >=60 mL/min/1.73m? Final Comment: Estimated Glomerular Filtration Rate (eGFR) is calculated using the 2020 CKD-EPI creatinine equation. This equation utilizes serum creatinine, sex, and age as parameters. The creatinine assay has traceable calibration to isotope dilution-mass spectrometry. Refer to KDIGO guidelines for clinical interpretation. In patients with unstable renal function, e.g. those with acute kidney injury, the eGFR may not accurately reflect actual GFR. P.O.C.T. RESULTS: N/A December 26, [address] PERFORMED: No IV SITE: Ambulatory: NM only - direct IV injection in the Right antecubital site POST EXAM PIV STATUS: Discontinued PROCEDURE TYPE: NM INJECT: PET/CT BODY SCAN. 12.0 mCi F18 FDG. Administered By: cuong . No other medications given.. ADMINISTRATION TIME: 1050 PATIENT DISCHARGED TO: Ambulatory patient, left [place] department area. Is this a therapy: No A Diagnostic radioactive procedure has taken place, with no further precautions necessary other than routine body substance precautions. More information regarding radiation safety can be found using this link: [email or web address] [email or web address] SIGNATURE: RT Pancho(R) PATIENT NAME: Bill Estrada DATE: December 26, 2024 TIME: 10:55 AM PAGER/CONTACT #: [facility] 12-26-2024 Instructions Damian Arreguin APRN.COLOR BUFFER - 12/26/2024 10:03 AM EDT Incentive Spirometer: -Start with breathing exercise today, goal 30-40 breaths a day *Incentive spirometer is used to help with lung expansion post operatively. It can be of benefit preoperatively to for those who smoke or have lung disease. Use the spirometer as instructed during your hospital visit. Take 10 deep breaths, hold for one second and then slowly exhale. You can take cleansing breaths in between as needed to avoid feeling dizzy or lightheaded. Use the spirometer hourly if possible. You will continue with this postoperatively as instructed. Pedometer(if given): -Pedometer to monitor your steps starting today -For the first 3 days monitor your average daily steps to get your baseline number -Then increase your steps by 200-300 every couple of days as able -Goal is to increase mobility as much as possible prior to surgery * Research has shown that increased strength, mobility and function preoperatively will help you to recover with less complication. Your effort preoperatively will yield better results postoperatively Stress Relief: -Deep breathing exercises -Sleep: 6-8 hours of sleep each night -Meditate -Laughing -Walking -Positive self-talk -Finding a support system -Exercise, walking, being active Nutrition: -Make sure you are getting enough protein a day, with a goal of at least 1 high-protein food with each of your three meals a day -High protein sources include: chicken breast, lean beef, salmon, tofu, peanut butter, eggs, samoan yogurt, cottage cheese, black beans, lentils -Make sure you are including high calcium foods, at least 3 servings a day: low-fat dairy, dark-leafy greens, sardines, or calcium-fortified cereals -Make sure you are getting vitamins and minerals by including at least four servings of fruits/vegetables a day - Drink 2 shakes daily for 5 days leading up to the day of surgery. *It has been shown through research that boosting the nutritional intake preoperatively with calories, vitamins and minerals, and hydration, promotes early recovery and improved healing postoperatively. You have been provided a case of supplement to take. Advanced Directives: Advanced directives are your preferences and personal requests in the event you are unable to make decisions for yourself following surgery. It is important for you to discuss your wishes with your family. It is requested that a single family member be designated as your power of insurance attorney in the event you cannot speak for yourself. This person should know what you would prefer as your medical choices if you were not compromised. This person, family or friend, should know what you prefer for your medical care and decisions if you are unable to make those decisions for yourself. Notify your surgeon s office to update your records with the designated Durable Power of Glass Cleaner. -A great web site for information: [email or web address] If you already have an Advance Directive, please fax a copy to [phone] or email to for it to be added to your chart. If you do not have an Advance Directive, you can find the appropriate form and more information at [email or web address]. We recommend that you complete the Advance Directive form found on the website and bring it with you the day of your surgery. It can be witnessed and scanned into your chart that day. --[place] Hierarchy of Decision Makin-Legal Guardian 2-HCPOA 3-Spouse 4-Consensus of Adult Children 5-Consensus of Parents 6- Consensus of Adult Siblings 7-Closest Relative Sensory Aids: -If you have any sensory aids, such as hearing aids, or glasses, please bring these with you day of surgery -Encouraged to bring sleep hygiene items such as ear plugs and eye mask for more restful sleep during hospital stay Sleep Apnea: If you have a CPAP/BiPAP machine, please bring that with you day of surgery. Smoking Cessation: -Quit smoking or vaping -Goal is to be abstinent from smoking prior to surgery, the sooner you quit, the less risk of post-op complications -Handout given on importance of smoking cessation -Resourceful web site: www.[employer].com - F[employer]ptu smoke cessation resources: 4(662)-QUIT-NOW We discussed your upcoming surgery and overall health: - You are scheduled for surgery in approximately 3-4 weeks. This visit focused on optimizing your health to ensure the best possible outcomes. - Please continue using your CPAP machine regularly. Bring it with you to the hospital on the day of surgery, but do not bring the sterile water; this will be provided. - Use your daily inhaler (Anoro Ellipta) consistently before surgery to help prime your lungs. Bring your rescue inhaler (albuterol) with you on the day of surgery. - Practice using the incentive spirometer I provided. Take 10 deep breaths every hour while awake after surgery to help expand your lungs and prevent complications. Before surgery, aim for 30 breaths daily (e.g., 3 sets of 10 breaths). - You are encouraged to quit smoking entirely before surgery. You have already reduced your smoking to 6-8 cigarettes per day, which is a positive step. Avoid smoking for at least one month after surgery to promote healing and reduce complications. We discussed your weight loss and nutrition: - You have lost significant weight (from 212 lbs to 173 lbs) and are eating less than 50% of your meals. This is likely contributing to your weakness. - Aim to consume 80 grams of protein daily to build strength before surgery. Continue drinking 1-2 Ensure shakes daily. If possible, increase to 2 shakes per day. You can add peanut butter or protein powder to shakes or other foods to increase protein intake. - Focus on high-protein foods such as chicken, peanut butter, and protein-rich snacks. Avoid foods that worsen your acid reflux or diarrhea. - Five days before surgery, start drinking the surgery-specific protein drinks I provided (2 per day). These contain additional vitamins and minerals to support healing. Sip them slowly to avoid diarrhea. We discussed your hydration: - You are dehydrated, which may be contributing to dizziness and low blood pressure. Aim to drink 64 ounces of fluids daily (e.g., water, soup broth, Jell-O, or electrolyte drinks). Avoid caffeinated beverages like Pepsi, as they can worsen dehydration. - Consider trying powdered electrolyte replacements (e.g., Liquid IV) if Gatorade worsens your reflux. We discussed your physical activity: - Begin a walking program to build strength before surgery. Start by tracking your steps with the step tracker I provided and gradually increase your activity by 10% weekly. - Perform leg-strengthening exercises daily to prepare for post-surgery recovery. I provided a handout with chair exercises to help you safely build strength. We discussed your medications: - Continue taking omeprazole (Prilosec) for acid reflux as prescribed. - Start taking Carafate (sucralfate) 4 times daily to help manage acid reflux. This has been sent to your pharmacy. - Discontinue Jardiance, as you are no longer taking it. - You are not currently taking your statin (Lipitor) or potassium supplements. If you experience any symptoms or concerns, , please let us know. - I have added a high-dose vitamin D supplement to your regimen (once weekly for 8 weeks). This will help with healing and reduce post-operative pain. This has been sent to your pharmacy. We discussed your recent medical history: - You reported dizziness and near-fainting episodes, likely related to dehydration. Please increase your fluid intake as discussed. - You experienced two falls in the past month due to leg weakness. No injuries were reported. - You have a history of a clean heart catheterization, but I will request records from [facility] to clarify your cardiac history. If anesthesia requires additional cardiac clearance, I will notify you. We discussed your mental health: - You reported feeling down at times, especially after chemotherapy treatments. You have a good support system at home, including your and grandson. Continue engaging in activities that bring you rico and help distract you, such as spending time outdoors or with family. We discussed your upcoming appointments and tests: - You have a pulmonary function test scheduled for January 04. Please attend this appointment as planned. - I have added iron studies to your lab work for tomorrow. Please bring the lab order I provided to your chemotherapy appointment so they can draw the additional labs. - Your primary care physician, Dr. Garcia, has been asked to provide surgical clearance. If you do not have an appointment scheduled, please contact their office to ensure this is completed before surgery. If you have any questions or concerns, please call our office at [phone]. I will also check in with you by phone in the coming weeks to monitor your progress. documented in this encounter [facility] 12-07-2024 Note [facility] 12-05-2024 History of Present illness Narrative Bill Estrada 1960 12/05/2024 HISTORY OF PRESENT ILLNESS: Bill Estrada is a 64 year old male started with dysphagia in July 2024, y end of August very hard. Currently taking only shakes. Planned for stent. EGD done September 02, 2024 Mass seen, biopsy shows adenocarcinoma. Feeling dizzy, present for long time, maybe worse now Here for follow up post PET scan, esophageal stent. Eating well. Had chest pains after stent was in [facility] for 3 days, heart was ok, but is on plavix. He will hold prior to port. Reviewed PET. Will see Dr Cloud re eventual surgery after chemotherapy underway Interval hx: Fatigued. Denies fevers, or NS. I am always cold Reflux is worse the last few days. Taking PPI. Eating helps. Abd pain and cramping was much better with bentyl. Notes abd cramping for 5 days following treatment. No diarrhea. Denies bleeding. Continues eating and drinking well. Denies new aches or pains. No nausea, vomiting. Stopped K as it made reflux worse. He is trying to eat for K rich food instead. Taking PPI, gabapentin - I stopped taking all the crap for my heart, made me feel worse Denies CP, SOB, palpitation. Not taking any plavix or anticoagulation. Stays active caring for 9 yr old grandson. 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 Estrella operative FLOT, started 11/07/2024 - ANC 0.71 today - recheck on Thursday add neulasta - discussed with Dr. Jiménez today in coverage for Dr. Obregon 2. Dr Cloud as scheduled 3. Follow up as scheduled prior to each cycle 4. PET scheduled Advised to call with any questions or concerns. PAST MEDICAL HISTORY Diagnosis Date Abdominal pain, left lower quadrant Arrhythmia Breakdown (mechanical) of cardiac electrode, initial encounter Carotid sinus hypersensitivity COPD (chronic obstructive pulmonary disease) (HCC) Diarrhea Diverticulosis of colon (without mention of hemorrhage) GERD (gastroesophageal reflux disease) Kidney stones Other specified heart block Presence of cardiac pacemaker 02/16/2024 [employer] dual-chamber pacemaker system implant 07/15/2013 for carotid sinus hypersensitivity; RV lead extracted and replaced (with generator change) 03/29/2024 due to RV lead malfunction Restless leg syndrome Sick sinus syndrome (HCC) 02/16/2024 Sinus arrest 02/16/2024 Syncope and collapse PAST SURGICAL HISTORY Procedure Laterality Date ANESTHESIA HERNIA REPAIR LOWER ABDOMEN NOS Umbilical hernia ANTERIOR INTERBODY FUSION, CERVICAL 2007 C4-C5 BASIC PACEMAKER DUAL CHAMBER Left 07/15/2013 [employer] dual-chamber pacemaker system implant; [facility], Dr. Gant CHOLECYSTECTOMY 2007 COLONOSCOPY FLX DX W/COLLJ SPEC WHEN PFRMD 08/20/2005 COLONOSCOPY FLX DX W/COLLJ SPEC WHEN PFRMD 07/06/2019 adenomatous polyps, repeat in 3 years ESOPHAGOGASTRODUODENOSCOPY TRANSORAL DIAGNOSTIC 07/06/2019 [facility], repeat in 3 years PACEMAKER LEAD INSERTION/REVISION/REMOVAL Left 03/29/2024 [employer] system; RV lead extracted and replaced with new RV lead, pacemaker generator changed; old RA lead still in use with excellent function; MRI conditional system; [facility] Dr. Zapien PAST SURGICAL HISTORY OF 09/01/2024 Esophagus Biopsy SURG TX ANAL FISTULA INTERSPHINCTERIC 09/01/2008 anterior fistula FAMILY HISTORY Problem Relation Age of Onset Colon Cancer Mother 80 Hypertension Mother Breast Cancer Sister Breast Cancer Sister Social History Tobacco Use Smoking status: Every Day Current packs/day: 1.00 Average packs/day: 1 pack/day for 50.1 years (50.1 ttl pk-yrs) Types: Cigarettes Start date: 10/12/1974 Smokeless tobacco: Never Tobacco comments: Pt has cut back to 1/2 pack daily. Vaping Use Vaping status: Never Used Substance Use Topics Alcohol use: Yes Comment: a few times a year Drug use: No ALLERGIES: ALLERGIES Allergen Reactions Morphine Other: See Comments personality change Percocet [Oxycodone* GI Upset CURRENT OUTPATIENT MEDICATIONS: dicyclomine (BENTYL) 10 mg capsule Take 1 capsule by mouth three times a day as needed. lidocaine-prilocaine (EMLA) 2.5-2.5 % cream Apply to affected area as needed. LIPITOR 40 mg tablet Take 40 mg by mouth once daily. ENTRESTO 24-26 mg tablet HYDROcodone-Acetaminophen (NORCO) 7.5-325 mg per tablet Take 1 tablet by mouth every 6 hours as needed. prochlorperazine (COMPAZINE) 5 mg tablet Take 2 tablets by mouth every 6 hours as needed. gabapentin (NEURONTIN) 400 mg capsule Take 400 mg by mouth two times a day. ANORO ELLIPTA 62.5-25 mcg/actuation inhaler Inhale 1 puff as instructed once daily. omeprazole (PRILOSEC) 20 mg capsule Take 1 capsule by mouth once daily. potassium chloride (KLOR-CON) 20 mEq packet Take 20 mEq by mouth once daily. (Patient not taking: Reported on 12/05/2024) lidocaine-prilocaine (EMLA) 2.5-2.5 % cream Apply 60 minutes before accessing port. PLAVIX 75 mg tablet Take 75 mg by mouth once daily. JARDIANCE 10 mg tablet Take 10 mg by mouth once daily. (Patient not taking: Reported on 12/05/2024) metoprolol succinate ER (TOPROL XL) 25 mg 24 hr tablet Take 25 mg by mouth once daily. (Patient not taking: Reported on 12/05/2024) PROTONIX 40 mg tablet Take 40 mg by mouth once daily. (Patient not taking: Reported on 11/21/2024) pravastatin sodium (PRAVASTATIN ORAL) Take 1 tablet by mouth daily at bedtime. (Patient not taking: Reported on 12/05/2024) REVIEW OF SYSTEMS: GENERAL: No fever, night sweats, weight loss or malaise. All other reviewed and negative other than HPI. All systems reviewed on 12/05/2024 with pertinent positives and negatives as outlined in the interval history. PHYSICAL EXAMINATION: VITAL SIGNS: BP 136/81 Pulse 95 Temp (Src) 99 (Temporal) Wt 182 lb (82.6kg) SpO2 99% GENERAL APPEARANCE: Well appearing, in no acute distress, alert and oriented x3, well-hydrated, well nourished. HEENT: Normocephalic, no sclera icterus, external ears normal Chest: Clear bilaterally, no wheezes, not labored. Heart: Normal S1 and S2, no abnormal sounds Abdomen: Soft, nontender, nondistended Extremities: No edema Neurological: Grossly intact Skin: Warm and dry with no rashes or ulcerations. Hematologic: no bruising or petechiae. I have performed the physical exam today (12/05/2024) and have edited the note to correlate with current findings. Ingrid Orellana APRN.COLOR BUFFER I spent a total of 30 minutes on the date of the service which included preparing to see the patient, [id number] patient care, completing clinical documentation, obtaining and/or reviewing separately obtained history, performing a medically appropriate examination, and ordering medications, tests, or procedures. Portions of this note including HPI, ROS, impression/plan may have been copied forward as to provide important historical information essential in contributing to medical decision making. Documentation has been reviewed and edited as necessary to support clinical decision making for today's visit and to reflect my own independent evaluation of this patient. documented in this encounter [facility] 12-05-2024 Note [facility] 11-29-2024 Telephone encounter Note Called and spoke to patient. Patient informed that he can resume prilosec. Patient has not started dicyclomine. Sarah Arceo RN [facility] 11-29-2024 Miscellaneous Notes Called and spoke to patient. Patient informed that he can resume prilosec. Patient has not started dicyclomine. Sarah Arceo RN Aime- are there any drug interactions with FLOT and omeprazole? Thank you. Sarah Arceo RN Called and spoke to patient. Patient informed of Ingrid's response, stated understanding. Patient stated protonix didn't help him. Patient stated he used to take omeprazole which worked well for him but he was instructed to stop d/t interactions with chemotherapy. This nurse can look into this tomorrow. Patient will filler picker dicyclomine tonight and start. Sarah Arceo RN Can try bentyl. I sent in RX. Should restart PPI. Ingrid Orellana APRN.COLOR BUFFER Called patient to ask about bowel symptoms. Patient denies having diarrhea or constipation. Last BM was 2:00 pm today; normal. Patient unable to state if the cramps are upper or lower abdomen. Sarah Arceo RN TC to pt to discuss symptoms C/O stomach cramps, he states this happened after his last tx as well. He states after his previous treatment this stomach cramping lasted 5 days. His most recent tx was 11/22/24 and stomach cramps started last night on 11/27/24. He rates his stomach cramping at a 10. Cramps come and go about every 30 minutes. Denies any nausea or vomiting. Has not found anything that helps the pain. Eating does not make the pain worse. Tried to take his potassium powder yesterday and today and was unable to take, he states he got severe burning reflux type pain and belching. He states the cramping did start prior to attempting the potassium. No fevers. States he is eating and drinking without issue. Teresita Hoffman LPN Patient's Ronel called in stating that Bill is having bad stomach problem and is wondering if there is something he can try to help. Please call Bill back at [phone] Gris Downing Pss documented in this encounter [facility] 11-29-2024 Telephone encounter Note Aime- are there any drug interactions with FLOT and omeprazole? Thank you. Sarah Arceo RN [facility] 11-28-2024 Telephone encounter Note Called and spoke to patient. Patient informed of Ingrid's response, stated understanding. Patient stated protonix didn't help him. Patient stated he used to take omeprazole which worked well for him but he was instructed to stop d/t interactions with chemotherapy. This nurse can look into this tomorrow. Patient will filler picker dicyclomine tonight and start. Sarah Arceo RN [facility] 11-28-2024 Telephone encounter Note Can try bentyl. I sent in RX. Should restart PPI. Ingrid Orellana APRN.COLOR BUFFER [facility] 11-28-2024 Telephone encounter Note Called patient to ask about bowel symptoms. Patient denies having diarrhea or constipation. Last BM was 2:00 pm today; normal. Patient unable to state if the cramps are upper or lower abdomen. Sarah Arceo RN [facility] 11-28-2024 Telephone encounter Note TC to pt to discuss symptoms C/O stomach cramps, he states this happened after his last tx as well. He states after his previous treatment this stomach cramping lasted 5 days. His most recent tx was 11/22/24 and stomach cramps started last night on 11/27/24. He rates his stomach cramping at a 10. Cramps come and go about every 30 minutes. Denies any nausea or vomiting. Has not found anything that helps the pain. Eating does not make the pain worse. Tried to take his potassium powder yesterday and today and was unable to take, he states he got severe burning reflux type pain and belching. He states the cramping did start prior to attempting the potassium. No fevers. States he is eating and drinking without issue. Teresita Hoffman LPN [facility] 11-28-2024 Telephone encounter Note Patient's Ronel called in stating that Bill is having bad stomach problem and is wondering if there is something he can try to help. Please call Bill back at [phone] Gris Mauricio [facility] 11-22-2024 Note [facility] 11-22-2024 History of Present illness Narrative Nutrition Therapy Initial Assessment Nutrition Diagnosis: Inadequate oral intake, related to, dietary habits of eating 1-2 times daily, as evidenced by patient interview . RECOMMENDED MALNUTRITION DIAGNOSIS: MODERATE PROTEIN-CALORIE MALNUTRITION NUTRITION CARE PLAN Nutrition Intervention 11/22/2024: Increase intake to at least three meals daily - suggested adding a protein drink in morning Sip on liquids throughout the day Increase physical activity through walking; standing from seated Prepare for enteral nutrition needs during esophagectomy Nutrition Monitoring & Evaluation: Weight PO intake Malnutrition status Labs Need for Follow up: before and after esophagectomy Patient presents with malignant neoplasm of lower third esophagus 05/06/25 DOCEtaxel INTRAVENOUS 50 mg/m2 = 98.5 mg leucovorin INTRAVENOUS 200 mg/m2 = 394 mg oxaliplatin INTRAVENOUS 85 mg/m2 = 167.45 mg palonosetron INTRAVENOUS 0.25 mg Patient's symptoms are: Poor appetite Heart burn BM- occasional constipation Diet History: Eats 1-2 meals per day Now on regular texture diet after stent placed 24 hr recall: 12pm - fish and onion rings 4pm chicken hernandez colombian sandwich Beverages: Pepsi and water Has Ensure HP at home and has not recently been using. 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 Resting Metabolic Rate: 1521 13% weight loss in past 9 months Dosing Weight: 85.5 kg Estimated kilocalorie needs: 3172-3393 kilocalories determined by 25-30 kcal/kg Estimated protein needs: 102-153 grams determined by 1.2-1.5 g/kg Dosing weight Estimated fluid needs: 2200 milliliters based on 1 mL per kcal Malnutrition Screening Significant unintentional weight loss? Yes NUTRITION FOCUSED PHYSICAL EXAM: Subcutaneous Fat Loss Orbital None Triceps None Mid-axillary at the iliac crest None Muscle Loss Locations: Temporalis None Pectoralis None Deltoids None Interosseous None Latissimus dorsi, trapezius None Quadriceps None Gastrocnemius Severe Potential micronutrient deficiency revealed in: No deficiency identified Edema: No Ascites: No Assessment of Functional Status: Functional, yet not normal, able to be up and about with fairly normal activities for a duration of 3 months Eating less than 75% of usual intake for more than 2 weeks? Yes Potential Signs of Inflammation: chronic condition Education Materials Provided: soft and moist high-protein menu ideas READINESS TO LEARN Cognitive ability: Alert and oriented Motivation to learn: Eager Family support: High - Very involved in pt care Instruction provided to: Patient and Spouse Patient learns best by: Multiple Methods Factors affecting learning: None Physical limitations affecting learning: None Referred/Supervised by: Dr. Augusto BOWER Billing Type: Initial Assess 2 units Total Time (mins): 30 SIGNATURE: Faustina [address] RD PATIENT NAME: Bill Estrada DATE: November 22, 2024 TIME: 10:01 AM PAGER: documented in this encounter [facility] 11-22-2024 Note HNO ID: [id number] Author: TANA DALLAS RN Service: ? Author Type: Registered Nurse Type: Progress Notes Filed: 11/22/2024 11:38 Note Text: Assessment unchanged from 11/21/24 office visit with Damir Orellana CNP. [facility] 11-22-2024 History of Present illness Narrative Assessment unchanged from 11/21/24 office visit with Damir Orellana CNP. documented in this encounter [facility] 11-21-2024 Note [facility] 11-21-2024 History of Present illness Narrative Images from the original note were not included. Renay Cloud M.D. Surgical Oncology [address] [place] [address], [place] [address] Bill is a 64-year-old male, with a history of esophageal adenocarcinoma, presenting for surgical oncology evaluation. Bill reports onset of dysphagia in July 2024, leading to an EGD in August 2024, which revealed a mass in the distal esophagus. Biopsy results indicated moderately differentiated adenocarcinoma. Subsequent CT scan of the brain showed no signs of metastatic disease, and a PET CT scan on October 25, 2024, demonstrated uptake in the distal esophagus without regional lymphadenopathy or metastatic disease. An endoscopic stent was placed between the diagnosis and the PET CT scan. Bill was recommended to undergo FLOT chemotherapy after Mediport insertion and was referred to surgical oncology for further evaluation. He received his first dose of chemotherapy 2 weeks ago and is scheduled for his second dose today. Bill reports stable nutrition but notes a 5 lb weight loss since his last visit to [place]. He experiences early satiety, stating, I'm not really hungry, it don't take much to fill me up. He also reports discomfort after consuming larger meals. He endorses persistent pain since the stent placement, describing it as a sore throat and occasional chest pain. He is taking acid suppression medication, which he states smooths it out but does not completely alleviate the symptoms. Bill has a significant smoking history, having smoked since age 8, currently smoking approximately half a pack per day, with increased consumption up to a pack per day depending on his sleep patterns. He has attempted to quit multiple times but has relapsed. He denies history of NH, CVA, or lung disease. He has a history of cholecystectomy. The ROS, medical, surgical, family, and social history were reviewed by Renay Cloud MD. BP 120/78 Pulse 95 Ht 157.5 cm (5' 2) Wt 85.5 kg (188 lb 7.9 oz) SpO2 99% BMI 34.48 kg/m BMI 34.48 kg/(m^2) Physical Exam Constitutional: General: He is not in acute distress. HENT: Head: Normocephalic and atraumatic. Eyes: Pupils: Pupils are equal, round, and reactive to light. Neck: Thyroid: No thyromegaly. Trachea: No tracheal deviation. Cardiovascular: Rate and Rhythm: Normal rate and regular rhythm. Heart sounds: Normal heart sounds. Pulmonary: Effort: Pulmonary effort is normal. No respiratory distress. Breath sounds: Normal breath sounds. No stridor. Abdominal: General: There is no distension. Palpations: Abdomen is soft. Tenderness: There is no abdominal tenderness. Musculoskeletal: General: No deformity. Normal range of motion. Skin: General: Skin is warm and dry. Findings: No erythema or rash. Neurological: Mental Status: He is alert and oriented to person, place, and time. Psychiatric: Mood and Affect: Affect normal. Judgment: Judgment normal. 1. Malignant neoplasm of lower third of esophagus (HCC) (C15.5) - Diagnosed with moderately differentiated adenocarcinoma of the distal esophagus . Discussed treatment plan including completion of four doses of chemotherapy, followed by surgical resection and additional chemotherapy. Ordered lung function tests to assess pulmonary status prior to surgery. Referred to smoking cessation counselor to assist with quitting smoking. Ordered repeat PET scan to be performed one to two weeks after completion of chemotherapy to assess response and ensure no metastatic spread. Discussed surgical procedure, including minimally invasive robotic esophagectomy with gastric pull-up, and potential complications. Educated on post-operative recovery, including dietary modifications and use of a feeding tube. Follow-up appointment scheduled in one month at [facility] to review lung function test results and prepare for surgery. Recording using INTTRA software for draft documentation of the visit was discussed with the patient/authorized field service representative; all questions welcomed and answered. Patient/authorized field service representative agreed to proceed I spent a total of 45 minutes on the date of the service which included preparing to see the patient, completing clinical documentation, performing a medically appropriate examination, counseling and educating the patient/family/caregiver, and independently interpreting results (not separately reported). Renay Cloud MD 11/21/2024 1:24 PM documented in this encounter [facility] 11-21-2024 Telephone encounter Note SOCIAL WORK FOLLOW UP NOTE: [facility] Date of service: November 21, 2024 Bill Estrada is being seen for a follow up social work visit. Today's visit includes: patient TOPICS ADDRESSED: SW met with pt and his this date to discuss cancer insurance forms from [employer]. SW and pt discussed completion of the forms - pt asked that dorms be faxed to [employer] when completed and scanned into his chart. Pt declined needing a copy back. No other needs identified at this time. PLAN: Continue follow up as needed F/U APPOINTMENT: PRN Assigned SW listed in Care Team tab: Yes MADISON Costa [facility] 11-21-2024 Miscellaneous Notes SOCIAL WORK FOLLOW UP NOTE: [facility] Date of service: November 21, 2024 Bill Estrada is being seen for a follow up social work visit. Today's visit includes: patient TOPICS ADDRESSED: SW met with pt and his this date to discuss cancer insurance forms from [employer]. SW and pt discussed completion of the forms - pt asked that dorms be faxed to [employer] when completed and scanned into his chart. Pt declined needing a copy back. No other needs identified at this time. PLAN: Continue follow up as needed F/U APPOINTMENT: PRN Assigned SW listed in Care Team tab: Yes OUSMANE Costa-S documented in this encounter [facility] 11-21-2024 Note [facility] 11-21-2024 History of Present illness Narrative Bill Estrada 1960 11/21/2024 HISTORY OF PRESENT ILLNESS: Bill Estrada is a 64 year old male started with dysphagia in July 2024, y end of August very hard. Currently taking only shakes. Planned for stent. EGD done September 02, 2024 Mass seen, biopsy shows adenocarcinoma. Feeling dizzy, present for long time, maybe worse now Here for follow up post PET scan, esophageal stent. Eating well. Had chest pains after stent was in [facility] for 3 days, heart was ok, but is on plavix. He will hold prior to port. Reviewed PET. Will see Dr Cloud re eventual surgery after chemotherapy underway Interval hx: Just tired Notes abd cramping for 5 days following treatment. No diarrhea. Denies bleeding. Cold sensitivity has resolved able to drink pepsi for the last week. Feels that stent has hurt worse in the last week than previously. Continues eating and drinking well. Denies new aches or pains. No nausea, vomiting. Taking PPI, gabapentin - I stopped taking all the crap for my heart, made me feel worse CLINICAL IMPRESSION: Dysphagia Esophageal adenocarcinoma, locally advanced on PET RECOMMENDATION/PLAN: 1. Estrella operative FLOT, started 11/07/2024 - OK for C2 pending labs 2. He will see Dr Cloud as scheduled, has OV later this afternoon 3. Follow up as scheduled prior to each cycle Advised to call with any questions or concerns. PAST MEDICAL HISTORY Diagnosis Date Abdominal pain, left lower quadrant Arrhythmia Breakdown (mechanical) of cardiac electrode, initial encounter Carotid sinus hypersensitivity COPD (chronic obstructive pulmonary disease) (HCC) Diarrhea Diverticulosis of colon (without mention of hemorrhage) GERD (gastroesophageal reflux disease) Kidney stones Other specified heart block Presence of cardiac pacemaker 02/16/2024 [employer] dual-chamber pacemaker system implant 07/15/2013 for carotid sinus hypersensitivity; RV lead extracted and replaced (with generator change) 03/29/2024 due to RV lead malfunction Restless leg syndrome Sick sinus syndrome (HCC) 02/16/2024 Sinus arrest 02/16/2024 Syncope and collapse PAST SURGICAL HISTORY Procedure Laterality Date ANESTHESIA HERNIA REPAIR LOWER ABDOMEN NOS Umbilical hernia ANTERIOR INTERBODY FUSION, CERVICAL 2007 C4-C5 BASIC PACEMAKER DUAL CHAMBER Left 07/15/2013 [employer] dual-chamber pacemaker system implant; Juan C Lorenzo, Dr. Gant CHOLECYSTECTOMY 2007 COLONOSCOPY FLX DX W/COLLJ SPEC WHEN PFRMD 08/20/2005 COLONOSCOPY FLX DX W/COLLJ SPEC WHEN PFRMD 07/06/2019 adenomatous polyps, repeat in 3 years ESOPHAGOGASTRODUODENOSCOPY TRANSORAL DIAGNOSTIC 07/06/2019 [facility], repeat in 3 years PACEMAKER LEAD INSERTION/REVISION/REMOVAL Left 03/29/2024 [facility] system; RV lead extracted and replaced with new RV lead, pacemaker generator changed; old RA lead still in use with excellent function; MRI conditional system; [facility] Dr. Zapien PAST SURGICAL HISTORY OF 09/01/2024 Esophagus Biopsy SURG TX ANAL FISTULA INTERSPHINCTERIC 09/01/2008 anterior fistula FAMILY HISTORY Problem Relation Age of Onset Colon Cancer Mother 80 Hypertension Mother Breast Cancer Sister Breast Cancer Sister Social History Tobacco Use Smoking status: Every Day Current packs/day: 1.00 Average packs/day: 1 pack/day for 50.1 years (50.1 ttl pk-yrs) Types: Cigarettes Start date: 10/12/1974 Smokeless tobacco: Never Tobacco comments: Pt has cut back to 1/2 pack daily. Vaping Use Vaping status: Never Used Substance Use Topics Alcohol use: Yes Comment: a few times a year Drug use: No ALLERGIES: ALLERGIES Allergen Reactions Morphine Other: See Comments personality change Percocet [Oxycodone* GI Upset CURRENT OUTPATIENT MEDICATIONS: lidocaine-prilocaine (EMLA) 2.5-2.5 % cream Apply 60 minutes before accessing port. HYDROcodone-Acetaminophen (NORCO) 7.5-325 mg per tablet Take 1 tablet by mouth every 6 hours as needed. prochlorperazine (COMPAZINE) 5 mg tablet Take 2 tablets by mouth every 6 hours as needed. gabapentin (NEURONTIN) 400 mg capsule Take 400 mg by mouth two times a day. lidocaine-prilocaine (EMLA) 2.5-2.5 % cream Apply to affected area as needed. (Patient not taking: Reported on 11/21/2024) LIPITOR 40 mg tablet Take 40 mg by mouth once daily. (Patient not taking: Reported on 11/04/2024) PLAVIX 75 mg tablet Take 75 mg by mouth once daily. (Patient not taking: Reported on 11/21/2024) JARDIANCE 10 mg tablet Take 10 mg by mouth once daily. (Patient not taking: Reported on 11/04/2024) metoprolol succinate ER (TOPROL XL) 25 mg 24 hr tablet Take 25 mg by mouth once daily. (Patient not taking: Reported on 11/04/2024) ENTRESTO 24-26 mg tablet Dose = 1 tab(s), Oral, BID, # 60 tab(s), 0 Refill(s), Pharmacy: [place] [id number], 165.1, cm, 10/18/24 9:54:00 EDT, Height, kg, 10/18/24 9:54:00 EDT, Dosing Weight (Patient not taking: Reported on 11/04/2024) PROTONIX 40 mg tablet Take 40 mg by mouth once daily. (Patient not taking: Reported on 11/04/2024) pravastatin sodium (PRAVASTATIN ORAL) Take 1 tablet by mouth daily at bedtime. (Patient not taking: Reported on 10/12/2024) ANORO ELLIPTA 62.5-25 mcg/actuation inhaler Inhale 1 Puff as instructed once daily. (Patient not taking: Reported on 11/04/2024) omeprazole (PRILOSEC) 20 mg capsule Take 1 capsule by mouth once daily. (Patient not taking: Reported on 11/21/2024) REVIEW OF SYSTEMS: GENERAL: No fever, night sweats, weight loss or malaise. All other reviewed and negative other than HPI. All systems reviewed on 11/21/2024 with pertinent positives and negatives as outlined in the interval history. PHYSICAL EXAMINATION: VITAL SIGNS: BP 115/72 Pulse 85 Temp (Src) 98.1 (Temporal) Wt 187 lb (84.8kg) SpO2 98% GENERAL APPEARANCE: Well appearing, in no acute distress, alert and oriented x3, well-hydrated, well nourished. HEENT: Normocephalic, no sclera icterus, external ears normal Chest: Clear bilaterally, no wheezes, not labored. Heart: Normal S1 and S2, no abnormal sounds Abdomen: Soft, nontender, nondistended Extremities: No edema Neurological: Grossly intact Skin: Warm and dry with no rashes or ulcerations. Hematologic: no bruising or petechiae. I have performed the physical exam today (11/21/2024) and have edited the note to correlate with current findings. Ingrid Orellana APRN.COLOR BUFFER I spent a total of 30 minutes on the date of the service which included preparing to see the patient, [id number] patient care, completing clinical documentation, obtaining and/or reviewing separately obtained history, performing a medically appropriate examination, and ordering medications, tests, or procedures. Portions of this note including HPI, ROS, impression/plan may have been copied forward as to provide important historical information essential in contributing to medical decision making. Documentation has been reviewed and edited as necessary to support clinical decision making for today's visit and to reflect my own independent evaluation of this patient. documented in this encounter [facility] 11-16-2024 Telephone encounter Note Spoke with patient and scheduled Ada Negron [facility] 11-16-2024 Miscellaneous Notes Spoke with patient and scheduled Ada Negron Nutrition consult order. Please call patient and schedule. Josephine Mcghee, ELIU TOXICITY CHECK SYMPTOM ASSESSMENT The patient is on FLOT, started 11/07/24 Spoke with patient, states he not bad. Llast week had stomach cramps for about 5 days, no N/V or diarrhea. Small formed BM's. Last BM, Thursday. Cramps stopped on Thursday and he doesn't feel uncomfortable or bloated. Discussed stool softener and patient agreeable. No appetite, is supplementing with protein shakes, usually 1 daily, sometimes 2. Fluids, 1 cup of coffee and 16 oz water daily. Discussed increasing fluid intake with examples. Decaf coffee, watermelon, chicken or beef broth. He has tried flavoring his water and doesn't like that. He like to drink soda but not warm. He denies feeling dehydrated, denies lightheadedness or dizziness. Advised to work on increasing fluid intake. Aware of nutrition consult and agreeable. Headache: No Visual Changes: No Dizziness: No Do you have any periods of confusion? No Mood changes: No Mouth or throat pain: No Appetite: decreased appetite Taste changes: No Nausea: No Vomiting: No Heartburn: No. Weight gain/loss: Unable to assess Episodes of palpitations/chest discomfort/pressure/pain No Shortness of breath: No Cough: No Diarrhea: no Constipation: no Bladder/Urinary Changes: None Pain: cramps Fever: No Chills: No Cold sensitivity: Yes to cold, mostly noticed with cold drinks Numbness/weakness: No Edema: No Skin changes: No Itching: No Yellowing of skin or eyes: No Musculoskeletal/joint changes/issues No Bleeding issues: No Activity Level (0-100%): decreased Does the patient need interventions or same day appointment:Yes, Nutrition Reinforced CURRENT treatment education based on current and anticipated symptoms. Discussed port/line care and patient verbalizes understanding: No Patient instructed to contact office or after hours Hematology/Oncology fellow for: temperature >= 100.4; questions or concerns. Patient verbalized understanding of when to seek medical attention and after hours number protocol. Marlene Mcghee RN documented in this encounter [facility] 11-16-2024 Telephone encounter Note Nutrition consult order. Please call patient and schedule. Josephine Mcghee RN [facility] 11-16-2024 Telephone encounter Note TOXICITY CHECK SYMPTOM ASSESSMENT The patient is on FLOT, started 11/07/24 Spoke with patient, states he not bad. Llast week had stomach cramps for about 5 days, no N/V or diarrhea. Small formed BM's. Last BM, Thursday. Cramps stopped on Thursday and he doesn't feel uncomfortable or bloated. Discussed stool softener and patient agreeable. No appetite, is supplementing with protein shakes, usually 1 daily, sometimes 2. Fluids, 1 cup of coffee and 16 oz water daily. Discussed increasing fluid intake with examples. Decaf coffee, watermelon, chicken or beef broth. He has tried flavoring his water and doesn't like that. He like to drink soda but not warm. He denies feeling dehydrated, denies lightheadedness or dizziness. Advised to work on increasing fluid intake. Aware of nutrition consult and agreeable. Headache: No Visual Changes: No Dizziness: No Do you have any periods of confusion? No Mood changes: No Mouth or throat pain: No Appetite: decreased appetite Taste changes: No Nausea: No Vomiting: No Heartburn: No. Weight gain/loss: Unable to assess Episodes of palpitations/chest discomfort/pressure/pain No Shortness of breath: No Cough: No Diarrhea: no Constipation: no Bladder/Urinary Changes: None Pain: cramps Fever: No Chills: No Cold sensitivity: Yes to cold, mostly noticed with cold drinks Numbness/weakness: No Edema: No Skin changes: No Itching: No Yellowing of skin or eyes: No Musculoskeletal/joint changes/issues No Bleeding issues: No Activity Level (0-100%): decreased Does the patient need interventions or same day appointment:Yes, Nutrition Reinforced CURRENT treatment education based on current and anticipated symptoms. Discussed port/line care and patient verbalizes understanding: No Patient instructed to contact office or after hours Hematology/Oncology fellow for: temperature >= 100.4; questions or concerns. Patient verbalized understanding of when to seek medical attention and after hours number protocol. Marlene Mcghee RN T [facility] 11-09-2024 Telephone encounter Note CYCLE 1/DAY 1 POST TREATMENT CALL Today's date: November 09, 2024 Treatment Regimen: FLOT C1D1 Date: 11/07/24 Called patient to follow-up on symptom management. Spoke with patient, states I'm not to bad; denies any issues. SYMPTOM ASSESSMENT Neuro: None CV/Resp: None GI/: None Integument: None Activity: Activity Level (0-100%): same as baseline Pain: No=0 (pain 0 on a scale of 0-10). Fever: No Chills: No Any new referrals needed? No Reinforced CURRENT treatment education based on current and anticipated symptoms. Discussed port/line care and patient verbalizes understanding: Not Applicable Patient instructed to contact office or after hours Hematology/Oncology fellow for: temperature >= 100.4; questions or concerns. Patient verbalized understanding of when to seek medical attention and after hours number protocol. Marlene Mcghee RN [facility] Work Phone: 11-09-2024 Miscellaneous Notes CYCLE 1/DAY 1 POST TREATMENT CALL Today's date: November 09, 2024 Treatment Regimen: FLOT C1D1 Date: 11/07/24 Called patient to follow-up on symptom management. Spoke with patient, states I'm not to bad; denies any issues. SYMPTOM ASSESSMENT Neuro: None CV/Resp: None GI/: None Integument: None Activity: Activity Level (0-100%): same as baseline Pain: No=0 (pain 0 on a scale of 0-10). Fever: No Chills: No Any new referrals needed? No Reinforced CURRENT treatment education based on current and anticipated symptoms. Discussed port/line care and patient verbalizes understanding: Not Applicable Patient instructed to contact office or after hours Hematology/Oncology fellow for: temperature >= 100.4; questions or concerns. Patient verbalized understanding of when to seek medical attention and after hours number protocol. Marlene Mcghee RN documented in this encounter [facility] 11-08-2024 Note HNO ID: [id number] Author: TANA DALLAS RN Service: ? Author Type: Registered Nurse Type: Progress Notes Filed: 11/08/2024 12:31 Note Text: Patient denies pain or any symptoms at this time [facility] 11-08-2024 History of Present illness Narrative Patient denies pain or any symptoms at this time documented in this encounter [facility] 11-07-2024 Telephone encounter Note I also had sent an Rx order on Thursday to Dr. Obregon. Waiting for him to sign order. Josephine Mcghee RN [facility] Work Phone: 11-07-2024 Miscellaneous Notes I also had sent an Rx order on Thursday to Dr. Obregon. Waiting for him to sign order. Josephine Mcghee RN Order sent pend/send. Sarah Arceo RN Pt requesting Emla cream. [facility] in [place]. Thank you. documented in this encounter [facility] 11-07-2024 Telephone encounter Note Order sent pend/send. Sarah Arceo RN [facility] 11-07-2024 Telephone encounter Note Pt requesting Emla cream. [facility] in [place]. Thank you. [facility] 11-04-2024 Telephone encounter Note Patient had port placed on 11/03/24 and RX for Emla cream pended. Josephine Mcghee RN [facility] Work Phone: 11-04-2024 Miscellaneous Notes Patient had port placed on 11/03/24 and RX for Emla cream pended. Josephine Mcghee RN documented in this encounter [facility] 11-04-2024 Note [facility] 11-04-2024 History of Present illness Narrative Patient teaching was completed over the phone. Marlene Mcghee RN Sort Line Pre Chemo Patient identified by name and date of . YES Confirmed date and time for chemotherapy ? YES Other appointments (labs, imaging) discussed? YES Discussed where to park (project hire), charge for parking YES Discussed where to report (building/floor) YES Any pre-medications ordered? YES Described the infusion room and what to expect. (What to wear, what to bring [iPad, books] amount of time treatment can take, meals and CC options for food) YES Note: na Discussed whether the patient can eat prior to labs and treatment. YES Who is driving you to and from treatment? Spouse Discussed why it is important to bring someone with you. Yes, first treatment Resources discussed (music therapy, Art therapy, pet therapy, etc.) YES Education on chemotherapy (drug, side effects) discussed and that the patient will be receiving a C1D1 call within 7 days of treatment. YES Other topics discussed, interventions needed: Reviewed medication, updates made ONCOLOGY PATIENT EDUCATION NOTE TOPIC: Chemotherapy, Medications: FLOT patient called today for education for treatment of Esophageal Cancer Anticipated/Scheduled start date: 11/07/24 READINESS TO LEARN: COGNITIVE ABILITY: Alert and oriented MOTIVATION TO LEARN: Interested FAMILY SUPPORT: Unable to assess - Family not present INSTRUCTION PROVIDED TO: Patient INSTRUCTION PROVIDED BY: Nurse Coordinator PATIENT LEARNS BEST BY: Multiple Methods FACTORS AFFECTING LEARNING: None PHYSICAL LIMITATIONS AFFECTING LEARNING: None LEARNING RESPONSE METHOD OF INSTRUCTION: Individual instruction Written instruction/Handouts Verbal instruction PATIENT/FAMILY RESPONSE: Verbalizes understanding of: CHEMOTHERAPY-Regimen, toxicity and side effects FOLLOW UP PLAN: Recommend - Recommend continued instruction and follow up as directed Contact information given. SUPPLEMENTAL MATERIAL: Written material was provided at this visit with the following information: - Chemotherapy education was provided by a pharmacist NO - Side effect management information was provided/discussed including but not limited to: anemia, appetite changes, bowel habit changes, cold sensitivity, diet, fatigue, hair loss, hand-foot syndrome, infection, mouth hygiene, mucositis, nausea/vomitting, neutropenia, peripheral neuropathy, taste changes, thrombocytopenia YES - Provided important phone numbers and contacts during and after hours. YES - Provided information on symptoms that require immediate assistance. YES - Provided Chemotherapy when to call handouts YES - Preventing infection. YES - Treatment schedule and confirmation of appointment times. YES - Available support groups. YES - The importance of contraception during the course of chemotherapy NA - Neutropenic fever protocol discussed with patient, which included the importance of reporting any fever of 100.4F (38.0C) or greater to the healthcare team as noted on the provided wallet card and/or magnet. YES Time Spent: 60 minutes REFERRAL (RECOMMENDATION): Social Work, to call patient at a later time. Marlene Mcghee, RN documented in this encounter [facility] 10-28-2024 Miscellaneous Notes 4 cycles scheduled as requested Start email sent Chemo Education Start Q2wk FLOT x 4, straight back to start with labs, CBC/CMP (start after PORT placement 11/03) CBC/CMP and OV with each cycle, alt with Ingrid documented in this encounter [facility] 10-28-2024 Telephone encounter Note 4 cycles scheduled as requested Start email sent [facility] Work Phone: 10-28-2024 Telephone encounter Note Met with patient and introduced myself. Patient was given a My Journey binder with chemocare information, office contact information, thermometer, and additional chemotherapy resource booklets. Patient aware this nurse will review on scheduled appointment date. Patient was given information on FLOT. Sarah Arceo RN [facility] 10-28-2024 Miscellaneous Notes Met with patient and introduced myself. Patient was given a My Journey binder with chemocare information, office contact information, thermometer, and additional chemotherapy resource booklets. Patient aware this nurse will review on scheduled appointment date. Patient was given information on FLOT. Sarah Arceo RN documented in this encounter [facility] 10-28-2024 Telephone encounter Note Chemo Education Start Q2wk FLOT x 4, straight back to start with labs, CBC/CMP (start after PORT placement 11/03) CBC/CMP and OV with each cycle, alt with Ingrid [facility] 10-28-2024 Note [facility] 10-28-2024 History of Present illness Narrative (Elements copied from my note dated October 12, 2024, have been reviewed and updated where appropriate, and all reflect current assessment and medical decision making from today's encounter, October 28, 2024) HISTORY OF PRESENT ILLNESS: Bill Estrada is a 64 year old male started with dysphagia in July 2024, y end of August very hard. Currently taking only shakes. Planned for stent. EGD done September 02, 2024 Mass seen, biopsy shows adenocarcinoma. Feeling dizzy, present for long time, maybe worse now Here for follow up post PET scan, esophageal stent. Eating well. Had chest pains after stent was in [facility] for 3 days, heart was ok, but is on plavix. He will hold prior to port. Reviewed PET. Will see Dr Cloud re eventual surgery after chemotherapy underway CLINICAL IMPRESSION: Dysphagia Esophageal adenocarcinoma, locally advanced on PET RECOMMENDATION/PLAN: 1. Estrella operative FLOT, to start after port placed. 2. He will see Dr Cloud as scheduled. 3. Follow up with wi cycle 2 chemo. Written and verbal health teaching given to patient, patient verbalizes understanding and agrees with treatment plan. PAST MEDICAL HISTORY Diagnosis Date Abdominal pain, left lower quadrant Arrhythmia Breakdown (mechanical) of cardiac electrode, initial encounter Carotid sinus hypersensitivity COPD (chronic obstructive pulmonary disease) (HCC) Diarrhea Diverticulosis of colon (without mention of hemorrhage) GERD (gastroesophageal reflux disease) Kidney stones Other specified heart block Presence of cardiac pacemaker 02/16/2024 [employer] dual-chamber pacemaker system implant 07/15/2013 for carotid sinus hypersensitivity; RV lead extracted and replaced (with generator change) 03/29/2024 due to RV lead malfunction Restless leg syndrome Sick sinus syndrome (HCC) 02/16/2024 Sinus arrest 02/16/2024 Syncope and collapse PAST SURGICAL HISTORY Procedure Laterality Date ANESTHESIA HERNIA REPAIR LOWER ABDOMEN NOS Umbilical hernia ANTERIOR INTERBODY FUSION, CERVICAL 2007 C4-C5 BASIC PACEMAKER DUAL CHAMBER Left 07/15/2013 [employer] dual-chamber pacemaker system implant; [facility], Dr. Gant CHOLECYSTECTOMY 2007 COLONOSCOPY FLX DX W/COLLJ SPEC WHEN PFRMD 08/20/2005 COLONOSCOPY FLX DX W/COLLJ SPEC WHEN PFRMD 07/06/2019 adenomatous polyps, repeat in 3 years ESOPHAGOGASTRODUODENOSCOPY TRANSORAL DIAGNOSTIC 07/06/2019 [facility], repeat in 3 years PACEMAKER LEAD INSERTION/REVISION/REMOVAL Left 03/29/2024 [employer] system; RV lead extracted and replaced with new RV lead, pacemaker generator changed; old RA lead still in use with excellent function; MRI conditional system; [facility] Dr. Zapien PAST SURGICAL HISTORY OF 09/01/2024 Esophagus Biopsy SURG TX ANAL FISTULA INTERSPHINCTERIC 09/01/2008 anterior fistula FAMILY HISTORY Problem Relation Age of Onset Colon Cancer Mother 80 Hypertension Mother Breast Cancer Sister Breast Cancer Sister Social History Tobacco Use Smoking status: Every Day Current packs/day: 1.00 Average packs/day: 1 pack/day for 50.0 years (50.0 ttl pk-yrs) Types: Cigarettes Start date: 10/12/1974 Smokeless tobacco: Never Tobacco comments: Pt has cut back to 2-5 cigarettes daily. Vaping Use Vaping status: Never Used Substance Use Topics Alcohol use: Yes Comment: a few times a year Drug use: No ALLERGIES: ALLERGIES Allergen Reactions Morphine Other: See Comments personality change Percocet [Oxycodone* GI Upset CURRENT OUTPATIENT MEDICATIONS: LIPITOR 40 mg tablet Take 40 mg by mouth once daily. PLAVIX 75 mg tablet Take 75 mg by mouth once daily. JARDIANCE 10 mg tablet Take 10 mg by mouth once daily. metoprolol succinate ER (TOPROL XL) 25 mg 24 hr tablet Take 25 mg by mouth once daily. ENTRESTO 24-26 mg tablet Dose = 1 tab(s), Oral, BID, # 60 tab(s), 0 Refill(s), Pharmacy: [facility], 165.1, cm, 10/18/24 9:54:00 EDT, Height, kg, 10/18/24 9:54:00 EDT, Dosing Weight PROTONIX 40 mg tablet Take 40 mg by mouth once daily. HYDROcodone-Acetaminophen (NORCO) 7.5-325 mg per tablet Take 1 tablet by mouth every 6 hours as needed. gabapentin (NEURONTIN) 400 mg capsule Take 400 mg by mouth two times a day. ANORO ELLIPTA 62.5-25 mcg/actuation inhaler Inhale 1 Puff as instructed once daily. prochlorperazine (COMPAZINE) 5 mg tablet Take 2 tablets by mouth every 6 hours as needed. pravastatin sodium (PRAVASTATIN ORAL) Take 1 tablet by mouth daily at bedtime. (Patient not taking: Reported on 10/12/2024) omeprazole (PRILOSEC) 20 mg capsule Take 1 capsule by mouth once daily. (Patient not taking: Reported on 10/28/2024) REVIEW OF SYSTEMS: GENERAL: No fever, night sweats, weight loss or malaise. All other reviewed and negative other than HPI. PHYSICAL EXAMINATION: VITAL SIGNS: BP 98/65 Pulse 106 Temp (Src) 97.1 (Temporal) Wt 188 lb (85.3kg) SpO2 99% GENERAL APPEARANCE: Well appearing, in no acute distress, alert and oriented x3, well-hydrated, well nourished. I spent a total of 45 minutes on the date of the service which included preparing to see the patient, [id number] patient care, completing clinical documentation, obtaining and/or reviewing separately obtained history, counseling and educating the patient/family/caregiver, ordering medications, tests, or procedures, independently interpreting results (not separately reported), communicating results to the patient/family/caregiver, and care coordination (not separately reported). Electronically Signed: Kemal Obregon MD October 28, 2024 documented in this encounter [facility] 10-27-2024 Telephone encounter Note This pt port placement is scheduled for 11/03 in [place]. Sheri Tamez [facility] 10-27-2024 Miscellaneous Notes This pt port placement is scheduled for 11/03 in [place]. Sheri Tamez PSS: Patient needs scheduled for IR port, order is in. Dr. Obregon would like to get that scheduled now. He will speak to him further, consent and put in [place] order this Thursday at . Dr. Obregon spoke with patient today and is aware. Josephine Mcghee RN Images from the original note were not included. documented in this encounter [facility] 10-26-2024 Telephone encounter Note PSS: Patient needs scheduled for IR port, order is in. Dr. Obregon would like to get that scheduled now. He will speak to him further, consent and put in [place] order this Thursday at [facility]. Dr. Obregon spoke with patient today and is aware. Josephine Mcghee RN [facility] Work Phone: 10-26-2024 Telephone encounter Note Images from the original note were not included. [facility] 10-25-2024 History of Present illness Narrative RADIOLOGY SERVICE PROGRESS NOTE SERVICE DATE: 10/25/2024 SERVICE TIME: 9:07 AM PATIENT IDENTITY VERIFICATION COMPLETED USING TWO (2) STANDARD IDENTIFIERS: Name and Date of confirmed by patient verbally FALL SCREENING: Has the patient had 2 falls in the last year or 1 fall with injury or currently using an Ambulatory Assistive Device (Walker, Cane, Wheelchair, Crutches, etc.)? No PATIENT GENDER DATA: .male ALLERGIES: NA MEDICATIONS REVIEWED: Not applicable PATIENT RELEVANT IMPLANT DATA REVIEWED: Not Applicable PATIENT PRESENTS WITH AN IMPLANTABLE OR ATTACHED SHINGLE CUTTER: No CREATININE: Creatinine Date Value Ref Range Status 10/12/2024 0.75 0.73 - 1.22 mg/dL Final 03/30/2024 0.89 0.73 - 1.22 mg/dL Final 03/29/2024 0.93 0.73 - 1.22 mg/dL Final Estimated Glomerular Filtration Rate Date Value Ref Range Status 10/12/2024 101 >=60 mL/min/1.73m Final Comment: Estimated Glomerular Filtration Rate (eGFR) is calculated using the 2020 CKD-EPI creatinine equation. This equation utilizes serum creatinine, sex, and age as parameters. The creatinine assay has traceable calibration to isotope dilution-mass spectrometry. Refer to KDIGO guidelines for clinical interpretation. In patients with unstable renal function, e.g. those with acute kidney injury, the eGFR may not accurately reflect actual GFR. P.O.C.T. RESULTS: N/A October 25, [address] PERFORMED: No IV SITE: Ambulatory: [place] only - direct IV injection in the Right hand POST EXAM PIV STATUS: Discontinued PROCEDURE TYPE: NM INJECT: PET/CT BODY SCAN. 11.8 mCi F18 FDG. No other medications given.. ADMINISTRATION TIME: 0900 PATIENT DISCHARGED TO: Ambulatory patient, left [place] department area. Is this a therapy: No A Diagnostic radioactive procedure has taken place, with no further precautions necessary other than routine body substance precautions. More information regarding radiation safety can be found using this link: [email or web address] %[email or web address] SIGNATURE: RUSS Gutierrez) PATIENT NAME: Bill Estrada DATE: October 25, 2024 TIME: 9:07 AM PAGER/CONTACT #: documented in this encounter [facility] 10-25-2024 Note HNO ID: [id number] Author: LAN HEADLEY RT (R) Service: Nuclear Medicine Author Type: Technologist Type: Progress Notes Filed: 10/25/2024 09:07 Note Text: RADIOLOGY SERVICE PROGRESS NOTE SERVICE DATE: 10/25/2024 SERVICE TIME: 9:07 AM PATIENT IDENTITY VERIFICATION COMPLETED USING TWO (2) STANDARD IDENTIFIERS: Name and Date of confirmed by patient verbally FALL SCREENING: Has the patient had 2 falls in the last year or 1 fall with injury or currently using an Ambulatory Assistive Device (Walker, Cane, Wheelchair, Crutches, etc.)? No PATIENT GENDER DATA: .male ALLERGIES: NA MEDICATIONS REVIEWED: Not applicable PATIENT RELEVANT IMPLANT DATA REVIEWED: Not Applicable PATIENT PRESENTS WITH AN IMPLANTABLE OR ATTACHED SHINGLE CUTTER: No CREATININE: Creatinine Date Value Ref Range Status 10/12/2024 0.75 0.73 - 1.22 mg/dL Final 03/30/2024 0.89 0.73 - 1.22 mg/dL Final 03/29/2024 0.93 0.73 - 1.22 mg/dL Final Estimated Glomerular Filtration Rate Date Value Ref Range Status 10/12/2024 101 >=60 mL/min/1.73m? Final Comment: Estimated Glomerular Filtration Rate (eGFR) is calculated using the 2020 CKD-EPI creatinine equation. This equation utilizes serum creatinine, sex, and age as parameters. The creatinine assay has traceable calibration to isotope dilution-mass spectrometry. Refer to KDIGO guidelines for clinical interpretation. In patients with unstable renal function, e.g. those with acute kidney injury, the eGFR may not accurately reflect actual GFR. P.O.C.T. RESULTS: N/A October 25, [address] PERFORMED: No IV SITE: Ambulatory: [place] only - direct IV injection in the Right hand POST EXAM PIV STATUS: Discontinued PROCEDURE TYPE: NM INJECT: PET/CT BODY SCAN. 11.8 mCi F18 FDG. No other medications given.. ADMINISTRATION TIME: 0900 PATIENT DISCHARGED TO: Ambulatory patient, left [place] department area. Is this a therapy: No A Diagnostic radioactive procedure has taken place, with no further precautions necessary other than routine body substance precautions. More information regarding radiation safety can be found using this link: [email or web address] [email or web address] 20Diagnostic%20Nuclear%20Medicine% 20Procedures.pdf SIGNATURE: RT Brenda(R) PATIENT NAME: Bill Estrada DATE: October 25, 2024 TIME: 9:07 AM PAGER/CONTACT #: [facility] 10-23-2024 Note . MICRO - Microbiology PROCEDURE: Blood Culture (bacterial) [*1] SOURCE: Blood BODY SITE: COLLECTED DATE/TIME: 10/17/2024 22:46 EDT RECEIVED DATE/TIME: 10/18/2024 13:49 EDT START DATE/TIME: 10/18/2024 13:50 EDT FREE TEXT SOURCE: FINAL REPORTS Final Report [] Verified Date/Time/Personnel: 10/23/2024 13:59 EDT Blood Culture: No Growth at 5 days. PRELIMINARY REPORTS Preliminary Report [] Verified Date/Time/Personnel: 10/18/2024 14:59 EDT Culture has been received in lab and is no growth to date. Routine cultures are held for 5 days. Performing Locations *1: This test was performed at: [facility], [address] [place] [address], [facility] , [facility] 10-23-2024 Note . MICRO - Microbiology PROCEDURE: Blood Culture (bacterial) [*1] SOURCE: Blood BODY SITE: COLLECTED DATE/TIME: 10/17/2024 23:33 EDT RECEIVED DATE/TIME: 10/18/2024 13:49 EDT START DATE/TIME: 10/18/2024 13:50 EDT FREE TEXT SOURCE: FINAL REPORTS Final Report [] Verified Date/Time/Personnel: 10/23/2024 13:59 EDT Blood Culture: No Growth at 5 days. PRELIMINARY REPORTS Preliminary Report [] Verified Date/Time/Personnel: 10/18/2024 14:59 EDT Culture has been received in lab and is no growth to date. Routine cultures are held for 5 days. Performing Locations *1: This test was performed at: [facility], [address] [place] [address], [id number] , [facility] 10-21-2024 History of Present illness Narrative Radiology Service Progress Note DATE OF SERVICE: October 21, 2024 TIME: 12:48 PM PATIENT IDENTITY VERIFICATION COMPLETED USING TWO (2) STANDARD IDENTIFIERS: Name and Date of confirmed by patient verbally. FALL SCREENING: Has the patient had 2 falls in the last year or 1 fall with injury or currently using an Ambulatory Assistive Device (Walker, Cane, Wheelchair, Crutches, etc.)? No PATIENT GENDER DATA: Assigned male at PATIENT RELEVANT IMPLANT DATA REVIEWED: Yes PATIENT PRESENTS WITH AN IMPLANTABLE OR ATTACHED SHINGLE CUTTER: No ALLERGIES: Reviewed and unchanged CONTRAST ALLERGY: NO. EXAM: CT -CONTRAST INDUCED NEPHROPATHY RISK FACTORS: Patient age > 60 years CREATININE: Creatinine Date Value Ref Range Status 10/12/2024 0.75 0.73 - 1.22 mg/dL Final 03/30/2024 0.89 0.73 - 1.22 mg/dL Final 03/29/2024 0.93 0.73 - 1.22 mg/dL Final Estimated Glomerular Filtration Rate Date Value Ref Range Status 10/12/2024 101 >=60 mL/min/1.73m Final Comment: Estimated Glomerular Filtration Rate (eGFR) is calculated using the 2020 CKD-EPI creatinine equation. This equation utilizes serum creatinine, sex, and age as parameters. The creatinine assay has traceable calibration to isotope dilution-mass spectrometry. Refer to KDIGO guidelines for clinical interpretation. In patients with unstable renal function, e.g. those with acute kidney injury, the eGFR may not accurately reflect actual GFR. P.O.C.T. RESULTS: POC done: Yes, See Lab Tab October 21, 2024 TREATMENT: N/A PERIPHERAL IV DATA: Ambulatory: A peripheral IV was started in the Left antecubital site with a Angio cath: 22 gauge. RADIOLOGY DEPARTMENT: CT; Exam(s) Completed: Brain SIGNATURE: RT Emily(R) PATIENT NAME: Bill Estrada DATE: October 21, 2024 TIME: 12:48 PM documented in this encounter [facility] 10-21-2024 Note [facility] 10-20-2024 Cardiology Progress note Date of Service 10/20/2024 Subjective Currently asymptomatic. No more chest pain since yesterday. Also denied palpitations, orthopnea and PND. Objective Vitals and Measurements T: 36.8 C (Oral) TMIN: 36.8 C (Oral) TMAX: 37.3 C (Oral) HR: 95 RR: 18 BP: 139/72 SpO2: 92% Intake and Output 7AM Yesterday to 7AM Today Intake and Output (Last 24 hours) Intake Administration Information 118.06 Oral Intake 470.00 Output Urine Voided 300.00 Stool Count 0.00 Urine Count 2.00 Total Summary Total Intake 588.06 Total Output 300.00 Fluid Balance 288.06 Physical Exam General Appearance: Patient comfortably lying on bed, not in acute distress Head: Normocephalic, atraumatic EENT: PERRLA, Neck: Supple, no JVD, no mass Cardiac: s1s2,RRR, no murmurs or rubs or gallops Lungs: Clear to auscultation bilaterally, no wheeze or rhonchi or crackles Abdomen: Soft , Nontender, no organomegaly, bowel sounds heard Musculoskeletal: Full ROM , no gross deformities Extremities: No rash or ulcers or pedal edema Neurological: Alert, oriented x 3, grossly no focal neurological deficits Skin: No rash or ulcers Weight Dosing Weight: 86 kg (10/18/24) Medications Medications (25) Active Scheduled: (10) atorvastatin 40 mg tablet 40 mg 1 tab(s), Oral, qDay cefTRIAXone IVP syringe 2 gram(s) 20 mL, IV Push (INT), qDay clopidogrel 75 mg Tablet 75 mg 1 tab(s), Oral, qDay empagliflozin 10 mg tablet 10 mg 1 tab(s), Oral, qAM gabapentin 400 mg capsule 400 mg 1 cap(s), Oral, BID metoprolol succinate 25 mg ER tablet 25 mg 1 tab(s), Oral, qDayM No metformin for 48 hrs post contrast 1 EA, Miscellaneous, Unscheduled pantoprazole 40 mg VIAL 40 mg, IV Push, BID potassium chloride 20 mEq ER tablet 40 mEq 2 tab(s), Oral, Once sacubitril-valsartan 24-26 mg oral tablet 1 tab(s), Oral, BID Continuous: (1) heparin 25,000 unit(s) [11.63 unit(s)/kg/hr] + Dextrose 5% Premix Diluent 250 mL 250 mL, Intravenous, 10 mL/hr PRN: (14) acetaminophen 325 mg Tablet 650 mg 2 tab(s), Oral, q4h acetaminophen 325 mg Tablet 650 mg 2 tab(s), Oral, q4h acetaminophen 500 mg Tablet 1,000 mg 2 tab(s), Oral, q6h Al hydrox/Mg hydrox/simethicone 200-200-20 mg/5 mL Susp UD 15 mL, Oral, q4h albuterol - ipratropium 2.5 mg-0.5 mg/3 mL Inhal Kellie UD 3 mL, Inhalation, q4hRT dextrose 50% Solution Disp syringe 50 mL 25 gram(s) 50 mL, IV Push, AsDirected guaifenesin 100 mg/5 mL Liquid 120 mL 200 mg 10 mL, Oral, q4h heparin 5,000 units/mL (1 mL) vial 4,000 unit(s) 0.8 mL, IV Push, q6h hydromorphone 1 mg/mL (1mL) INJ 1 mg 1 mL, IV Push, q4h magnesium hydroxide 8% Suspension 30 mL UD 30 mL, Oral, qHS melatonin 3 mg tablet 3 mg 1 tab(s), Oral, qHS ondansetron 2 mg/ 1 mL 2 mL INJ 4 mg 2 mL, IV Push, q4h polyethylene glycol 3350 - UD packet 17 gram(s) 15 mL, Oral, qDay prochlorperazine 10 mg/2 mL vial 5 mg 1 mL, IV Push, q6h Lab Results 10/20 09:01 Glucose Level: 98 Sodium Level: 140 Potassium Level: 3.1 L BUN: 9.0 Creatinine Lvl (s): 0.61 10/20 04:16 WBC: 10.1 Hgb: 14.8 Hct: 42.6 Platelet: 231 Neutrophil %: 70.0 10/19 07:05 WBC: 11.2 H Hgb: 14.6 Hct: 42.2 Platelet: 227 Neutrophil %: 74.8 Glucose Level: 97 Sodium Level: 141 Potassium Level: 3.6 BUN: 6.0 L Creatinine Lvl (s): 0.61 EKG No qualifying data available. Assessment/Plan Orders: clopidogrel(Plavix), 75 mg= 1 tab(s), Oral, qDay empagliflozin(Jardiance), 10 mg= 1 tab(s), Oral, qAM potassium chloride(KCL), 40 mEq= 2 tab(s), Oral, Once sacubitril-valsartan(Entresto 24 mg-26 mg oral tablet), 1 tab(s), Oral, BID Basic Metabolic Panel(BMP), 10/21/24 5:00:00 EDT, Next AM Draw (one day only), Blood, q24h, for 5 day(s), Stop date 10/25/24 5:00:00 EDT Magnesium Level, 10/21/24 5:00:00 EDT, Next AM Draw (one day only), Blood, q24h, for 5 day(s), Stop date 10/25/24 5:00:00 EDT NSTEMI Moderate coronary artery disease (50% proximal D1 and 50% proximal LCx) New onset cardiomyopathy, nonischemic (EF 35 to 40% in October 2024) Hypertension Obesity Esophageal cancer status post recent esophageal stent Patient underwent urgent left heart catheterization which showed moderate coronary artery disease. Given his risk for bleeding, will complete 48 hours of heparin by weight followed by single antiplatelet therapy with Plavix. Continue statin and beta-issa for GDMT. New onset cardiomyopathy is likely nonischemic. Started GDMT with low-dose Entresto and Jardiance today. Will uptitrate GDMT as an outpatient. Patient is stable to be discharged from cardiology standpoint. Please check BMP in a week. Follow-up with cardiology within 2 weeks. Thank you for letting participate in patient care. We will sign off today. Digitally Signed by SOFIA VELASCO MD on 10/20/2024 01:43 PM [facility] 10-20-2024 Hospital Discharge instructions Patient Education 10/20/2024 14:07:08 Gastroesophageal Reflux Disease, Adult, [id number] Gastroesophageal Reflux Disease, Adult Gastroesophageal reflux (DANETTE) happens when acid from the stomach flows up into the tube that connects the mouth and the stomach (esophagus). Normally, food travels down the esophagus and stays in the stomach to be digested. With DANETTE, food and stomach acid sometimes move back up into the esophagus. You may have a disease called gastroesophageal reflux disease (GERD) if the reflux: Happens often. Causes frequent or very bad symptoms. Causes problems such as damage to the esophagus. When this happens, the esophagus becomes sore and swollen (inflamed). Over time, GERD can make small holes (ulcers) in the lining of the esophagus. What are the causes? This condition is caused by a problem with the muscle between the esophagus and the stomach. When this muscle is weak or not normal, it does not close properly to keep food and acid from coming back up from the stomach. The muscle can be weak because of: Tobacco use. . Having a certain type of hernia (hiatal hernia). Alcohol use. Certain foods and drinks, such as coffee, chocolate, onions, and peppermint. What increases the risk? You are more likely to develop this condition if you: Are overweight. Have a disease that affects your connective tissue. Use NSAID medicines. What are the signs or symptoms? Symptoms of this condition include: Heartburn. Difficult or painful swallowing. The feeling of having a lump in the throat. A bitter taste in the mouth. Bad breath. Having a lot of saliva. Having an upset or bloated stomach. Belching. Chest pain. Different conditions can cause chest pain. Make sure you see your doctor if you have chest pain. Shortness of breath or noisy breathing (wheezing). Ongoing (chronic) cough or a cough at night. Wearing away of the surface of teeth (tooth enamel). Weight loss. How is this treated? Treatment will depend on how bad your symptoms are. Your doctor may suggest: Changes to your diet. Medicine. Surgery. Follow these instructions at home: Eating and drinking Follow a diet as told by your doctor. You may need to avoid foods and drinks such as: ?Coffee and tea (with or without caffeine). ?Drinks that contain alcohol. ?Energy drinks and sports drinks. ?Bubbly (carbonated) drinks or sodas. ?Chocolate and cocoa. ?Peppermint and mint flavorings. ?Garlic and onions. ?Horseradish. ?Spicy and acidic foods. These include peppers, chili powder, ramirez powder, vinegar, hot sauces, and BBQ sauce. ?Barnes fruit juices and citrus fruits, such as oranges, hortensia, and limes. ?Tomato-based foods. These include red sauce, chili, salsa, and pizza with red sauce. ?Fried and fatty foods. These include donuts, ghanaian fries, potato chips, and high-fat dressings. ?High-fat meats. These include hot dogs, rib eye steak, sausage, ham, and hernandez. ?High-fat dairy items, such as whole milk, butter, and cream cheese. Eat small meals often. Avoid eating large meals. Avoid drinking large amounts of liquid with your meals. Avoid eating meals during the 2 3 hours before bedtime. Avoid lying down right after you eat. Do not exercise right after you eat. Lifestyle Do not use any products that contain nicotine or tobacco. These include cigarettes, e-cigarettes, and chewing tobacco. If you need help quitting, ask your doctor. Try to lower your stress. If you need help doing this, ask your doctor. If you are overweight, lose an amount of weight that is healthy for you. Ask your doctor about a safe weight loss goal. General instructions Pay attention to any changes in your symptoms. Take vxpp-mcj-elqrasu and prescription medicines only as told by your doctor. Do not take aspirin, ibuprofen, or other NSAIDs unless your doctor says it is okay. Wear loose clothes. Do not wear anything tight around your waist. Raise (elevate) the head of your bed about 6 inches (15 cm). Avoid bending over if this makes your symptoms worse. Keep all follow-up visits as told by your doctor. This is important. Contact a doctor if: You have new symptoms. You lose weight and you do not know why. You have trouble swallowing or it hurts to swallow. You have wheezing or a cough that keeps happening. Your symptoms do not get better with treatment. You have a hoarse voice. Get help right away if: You have pain in your arms, neck, jaw, teeth, or back. You feel sweaty, dizzy, or light-headed. You have chest pain or shortness of breath. You throw up (vomit) and your throw-up looks like blood or coffee grounds. You pass out (faint). Your poop (stool) is bloody or black. You cannot swallow, drink, or eat. Summary If a person has gastroesophageal reflux disease (GERD), food and stomach acid move back up into the esophagus and cause symptoms or problems such as damage to the esophagus. Treatment will depend on how bad your symptoms are. Follow a diet as told by your doctor. Take all medicines only as told by your doctor. This information is not intended to replace advice given to you by your health care provider. Make sure you discuss any questions you have with your health care provider. Document Released: 12/22/2008 Document Revised: 01/12/2019 Document Reviewed: 01/12/2019 [employer] Patient Education 2020 [employer]. Follow Up Care 10/18/2024 03:51:22 With:CARLOS GARCIA MD Address: [facility] [place] [address]- When:1-2 days Comments:Please call the office to schedule a hospital follow up appointment. With:VINNIE ESTEVEZ MD Address: [address] [facility] [address] [facility] [place] [address]- [phone] When: Unknown Comments:Call to make appointment in 2 to 3 weeks With:[facility] will contact you for an appointment in 4-6weeks If you have any questions please call:[phone]. Address: When: Unknown [facility] 10-20-2024 Note Discharge Instructions Thank you for allowing [facility] to assist you with your healthcare needs. The following is important discharge information regarding your hospital visit. Your Care Team CARLOS GARCIA MD What to do next Instructions From Your Doctor Due to an abnormal echocardiogram cardiology 1 CCTA the following medications: Metoprolol Jardiance Plavix Entresto Lipitor. Please make appointment follow-up with cardiology Keep your dietary recommendations as per gastroenterology enterology Take Protonix twice per day until your cartographic aide tells you otherwise. Follow-up with primary care physician Follow Up Appointments Follow Up with CARLOS GARCIA MD When:Within 1-2 days Where:[facility] [address] [place] [address]- Additional Information: Please call the office to schedule a hospital follow up appointment. Follow Up with VINNIE ESTEVEZ MD Where:[address] [facility] [place] [address] [phone] Additional Information: Call to make appointment in 2 to 3 weeks Follow Up with [facility] will contact you for an appointment in 4-6weeks If you have any questions please call:[phone]. The Following Activity and Diet Have Been Ordered for You Discharge Activity - Ordered -- Activity As Tolerated, 10/20/24 12:55:00 EDT Discharge Diet - Ordered -- 10/20/24 12:55:00 EDT The Following Equipment Has Been Ordered for You No qualifying data available. The Following Treatments Have Been Ordered for You Discharge Labs Discharge Outpatient Labwork - Ordered -- BMP, Electrolyte abnormalities, follow-up within: 2-4 days, Results Notify to: CARLOS GARCIA MD, 10/20/24 12:55:00 EDT Discharge Radiology No qualifying data available. Other Therapies No qualifying data available. Post Acute Orders No qualifying data available. Someone Will Contact You Regarding These Home Health Referrals No home referrals have been ordered for you. No one will call you. Allergies morphine angry Medications Please ask your primary doctor or pharmacist before taking any other medication not listed, including over the counter drugs, herbal medications, vitamins and or supplements as they may interact with your home medications. What How Much When Instructions Last Dose New atorvastatin (Lipitor 40 mg oral tablet) 1 tab(s) by mouth Once a day Refills: 2 Pickup at [facility] [address] New clopidogrel (Plavix 75 mg oral tablet) 1 tab(s) by mouth Once a day Refills: 2 Pickup at [facility] [address] New empagliflozin (Jardiance 10 mg oral tablet) 1 tab(s) by mouth Once a day (in the morning) Pickup at [facility] [address] New metoprolol (metoprolol succinate 25 mg oral TABLET extended release) 1 tab(s) by mouth Once a day with a meal Pickup at [facility] [address] New pantoprazole (Protonix 40 mg oral enteric coated tablet) 1 tab(s) by mouth Two (2) times a day Pickup at [facility] [address] New sacubitril-valsartan (Entresto 24 mg-26 mg oral tablet) 1 tab(s) by mouth Two (2) times a day Pickup at [facility] [address] Unchanged albuterol (Albuterol (Eqv-Proventil HFA) 90 mcg/ inh inhalation aerosol) 2 puff(s) by inhalation Four (4) times a day as needed for Shortness of breath or wheezing Unchanged gabapentin (gabapentin 400 mg oral capsule) 1 cap by mouth Two (2) times a day Pharmacy Information [facility] [address]: [address] [place], [place] [id number] [phone] What How Much When Comments Stop Taking amoxicillin-clavulanate (amoxicillin-clavulanate 600 mg-42.9 mg/ 5 mL oral liquid) 5 Milliliter by mouth Two (2) times a day Duration: 10 Days Stop Taking omeprazole (omeprazole 20 mg oral delayed release capsule) 1 cap by mouth Once a day Please take this list to your next doctor s visit. Bring all medications you take, including over the counter medications, herbals and other supplements with you to your doctor s visit. Patients and families are reminded to discard old lists and to update any records with all medication providers or retail pharmacies. Education Materials Gastroesophageal Reflux Disease, Adult Gastroesophageal reflux (DANETTE) happens when acid from the stomach flows up into the tube that connects the mouth and the stomach (esophagus). Normally, food travels down the esophagus and stays in the stomach to be digested. With DANETTE, food and stomach acid sometimes move back up into the esophagus. You may have a disease called gastroesophageal reflux disease (GERD) if the reflux: Happens often. Causes frequent or very bad symptoms. Causes problems such as damage to the esophagus. When this happens, the esophagus becomes sore and swollen (inflamed). Over time, GERD can make small holes (ulcers) in the lining of the esophagus. What are the causes? This condition is caused by a problem with the muscle between the esophagus and the stomach. When this muscle is weak or not normal, it does not close properly to keep food and acid from coming back up from the stomach. The muscle can be weak because of: Tobacco use. . Having a certain type of hernia (hiatal hernia). Alcohol use. Certain foods and drinks, such as coffee, chocolate, onions, and peppermint. What increases the risk? You are more likely to develop this condition if you: Are overweight. Have a disease that affects your connective tissue. Use NSAID medicines. What are the signs or symptoms? Symptoms of this condition include: Heartburn. Difficult or painful swallowing. The feeling of having a lump in the throat. A bitter taste in the mouth. Bad breath. Having a lot of saliva. Having an upset or bloated stomach. Belching. Chest pain. Different conditions can cause chest pain. Make sure you see your doctor if you have chest pain. Shortness of breath or noisy breathing (wheezing). Ongoing (chronic) cough or a cough at night. Wearing away of the surface of teeth (tooth enamel). Weight loss. How is this treated? Treatment will depend on how bad your symptoms are. Your doctor may suggest: Changes to your diet. Medicine. Surgery. Follow these instructions at home: Eating and drinking Follow a diet as told by your doctor. You may need to avoid foods and drinks such as: ? Coffee and tea (with or without caffeine). ? Drinks that contain alcohol. ? Energy drinks and sports drinks. ? Bubbly (carbonated) drinks or sodas. ? Chocolate and cocoa. ? Peppermint and mint flavorings. ? Garlic and onions. ? Horseradish. ? Spicy and acidic foods. These include peppers, chili powder, ramirez powder, vinegar, hot sauces, and BBQ sauce. ? Barnes fruit juices and citrus fruits, such as oranges, hortensia, and limes. ? Tomato-based foods. These include red sauce, chili, salsa, and pizza with red sauce. ? Fried and fatty foods. These include donuts, ghanaian fries, potato chips, and high-fat dressings. ? High-fat meats. These include hot dogs, rib eye steak, sausage, ham, and hernandez. ? High-fat dairy items, such as whole milk, butter, and cream cheese. Eat small meals often. Avoid eating large meals. Avoid drinking large amounts of liquid with your meals. Avoid eating meals during the 2 3 hours before bedtime. Avoid lying down right after you eat. Do not exercise right after you eat. Lifestyle Do not use any products that contain nicotine or tobacco. These include cigarettes, e-cigarettes, and chewing tobacco. If you need help quitting, ask your doctor. Try to lower your stress. If you need help doing this, ask your doctor. If you are overweight, lose an amount of weight that is healthy for you. Ask your doctor about a safe weight loss goal. General instructions Pay attention to any changes in your symptoms. Take hary-aad-dlervwe and prescription medicines only as told by your doctor. Do not take aspirin, ibuprofen, or other NSAIDs unless your doctor says it is okay. Wear loose clothes. Do not wear anything tight around your waist. Raise (elevate) the head of your bed about 6 inches (15 cm). Avoid bending over if this makes your symptoms worse. Keep all follow-up visits as told by your doctor. This is important. Contact a doctor if: You have new symptoms. You lose weight and you do not know why. You have trouble swallowing or it hurts to swallow. You have wheezing or a cough that keeps happening. Your symptoms do not get better with treatment. You have a hoarse voice. Get help right away if: You have pain in your arms, neck, jaw, teeth, or back. You feel sweaty, dizzy, or light-headed. You have chest pain or shortness of breath. You throw up (vomit) and your throw-up looks like blood or coffee grounds. You pass out (faint). Your poop (stool) is bloody or black. You cannot swallow, drink, or eat. Summary If a person has gastroesophageal reflux disease (GERD), food and stomach acid move back up into the esophagus and cause symptoms or problems such as damage to the esophagus. Treatment will depend on how bad your symptoms are. Follow a diet as told by your doctor. Take all medicines only as told by your doctor. This information is not intended to replace advice given to you by your health care provider. Make sure you discuss any questions you have with your health care provider. Document Released: 12/22/2008 Document Revised: 01/12/2019 Document Reviewed: 01/12/2019 [employer] Patient Education 2020 [employer]limp[employer]. Additional Information VACCINATE! IT SAVES LIVES! Members of the community who have not yet received the COVID-19 vaccine and would like to receive it can visit one of [facility] vaccine clinics. There are many vaccine clinic locations within the [facility]. For locations and available times, please visit https://gettheshot.coronavirus.mei o.gov/. It is important to note that some COVID mobile vaccine clinics are held outdoors and may be canceled in rainy or stormy conditions. To learn more about pediatric vaccinations (ages 5-11), we invite you to visit the [facility] webpage. https://www.[facility].org/pag es/0558-Mukjz-Aithgumrztr-Frequent hg-Inhsc-Mzowlkqsa.html To learn more about the COVID-19 vaccine, we invite you to visit the CDC website for a list of frequently asked questions.https://www.cdc.gov/mauri navirus/2019-ncov/vaccines/faq.htm jeimy [facility] Patient Portal Access Instructions: Stay connected with your healthcare team and access your personal medical information anytime with the [facility] Patient Portal. Please follow the directions below to create your [facility] account: 1.Access the email account you provided upon registration to the hospital/physician office.2.Look for an invitation email from [facility].3.Open the email and access the invitation link: Accept Invitation to [facility].4.Fill in the required aguilar to create your account. To access your account, visit [facility]. Click the blue button labeled Access Patient Portal and then log in with the username and password that you created in the steps above. You will be able to view your test results, lab results, a summary of your visits, upcoming appointments and more. There is also a convenient messaging option where you can send secure messages to your provider. In addition, you will have the ability to download any documents or summaries to your computer and/or send the information securely to a physician. Remember that your healthcare information is confidential, so carefully consider who you will allow to register on the [facility] Patient Portal for access to your information. You can also access [facility] on the [facility]. Simply click on Patient Portal and then log into your account. If you would like to receive a full copy of your medical records, please contact the [facility] Medical Records Department by calling [phone], Thursday through Thursday between 8 a.m. and 4:30 p.m. HOW TO SAFELY DISPOSE OF PRESCRIPTION MEDICATIONS Please use one of the following methods to safely dispose of your unused medications. 1.Use a drug disposal kit: the drug disposal pouch allows you to safely discard your old and unused drugs. Ask your nurse to give you one when you are discharged.2.Visit a local take-back location: Many local pharmacies and police departments have programs that collect old and unwanted prescription drugs. Call your local pharmacy or go to http://[employer].zuuka!/8B8Lj4w to find one close to you.3.Make use of household items: Use cat litter or old coffee grounds to dispose medications if other options are not available. Mix your drugs with these household products, seal them in an airtight container and throw it into the garbage. Call [facility]: [phone] to be sure your drugs can be disposed of in this way. Some medicines may require a different approach.4.Never flush your medications down the toilet. IF YOU HAVE BEEN PRESCRIBED AN OPIOID FOR PAIN If you have been prescribed an opioid (such as hydrocodone, oxycodone or morphine), it is critical to understand the possible side effects and risks of opioid pain medications. Even when taken as directed, opioids can have several side effects including: Tolerance, meaning you might need to take more of a medication for the same pain relief. Nausea, vomiting and/or constipation. Sleepiness, dizziness, dry mouth, confusion, depression or itching. Physical dependence, meaning you have withdrawal symptoms when a medication is stopped, can develop within a few days. KNOW YOUR RESPONSIBILITIES It is important to know exactly how much and how often to take the opioid pain medications you are prescribed. Never take opioids in higher amounts or more often than prescribed. Do not combine opioids with alcohol or other drugs that cause drowsiness, such as benzodiazepines, also known as benzos, including diazepam and alprazolam, muscle relaxants or sleep aids. Never sell or share prescription opioids. This is illegal. Store opioids in a secure place and out of reach of others (including children, family, friends and visitors). The last page of this document has been signed and retained as a CHART COPY. Signatures Patient Education Materials Gastroesophageal Reflux Disease, Adult, Xwgr-qo-Xltk Medication Leaflets My discharge plan and instructions have been reviewed and explained to me and I,BILL ESTRADA understand my current condition and have read and understand these discharge instructions. I have received a written copy of the plan/instructions. If I have questions, I am aware that I should contact my doctor. Patient/Display Decorator Signature: Date/Time: Relationship to Patient: ___ Witness Name/Signature: Date/Time: [facility] 10-20-2024 Cardiology Progress note Date of Service 10/20/2024 Subjective Currently asymptomatic. No more chest pain since yesterday. Also denied palpitations, orthopnea and PND. Objective Vitals and Measurements T: 36.8 C (Oral) TMIN: 36.8 C (Oral) TMAX: 37.3 C (Oral) HR: 95 RR: 18 BP: 139/72 SpO2: 92% Intake and Output 7AM Yesterday to 7AM Today Intake and Output (Last 24 hours) Intake Administration Information 118.06 Oral Intake 470.00 Output Urine Voided 300.00 Stool Count 0.00 Urine Count 2.00 Total Summary Total Intake 588.06 Total Output 300.00 Fluid Balance 288.06 Physical Exam General Appearance: Patient comfortably lying on bed, not in acute distress Head: Normocephalic, atraumatic EENT: PERRLA, Neck: Supple, no JVD, no mass Cardiac: s1s2,RRR, no murmurs or rubs or gallops Lungs: Clear to auscultation bilaterally, no wheeze or rhonchi or crackles Abdomen: Soft , Nontender, no organomegaly, bowel sounds heard Musculoskeletal: Full ROM , no gross deformities Extremities: No rash or ulcers or pedal edema Neurological: Alert, oriented x 3, grossly no focal neurological deficits Skin: No rash or ulcers Weight Dosing Weight: 86 kg (10/18/24) Medications Medications (25) Active Scheduled: (10) atorvastatin 40 mg tablet 40 mg 1 tab(s), Oral, qDay cefTRIAXone IVP syringe 2 gram(s) 20 mL, IV Push (INT), qDay clopidogrel 75 mg Tablet 75 mg 1 tab(s), Oral, qDay empagliflozin 10 mg tablet 10 mg 1 tab(s), Oral, qAM gabapentin 400 mg capsule 400 mg 1 cap(s), Oral, BID metoprolol succinate 25 mg ER tablet 25 mg 1 tab(s), Oral, qDayM No metformin for 48 hrs post contrast 1 EA, Miscellaneous, Unscheduled pantoprazole 40 mg VIAL 40 mg, IV Push, BID potassium chloride 20 mEq ER tablet 40 mEq 2 tab(s), Oral, Once sacubitril-valsartan 24-26 mg oral tablet 1 tab(s), Oral, BID Continuous: (1) heparin 25,000 unit(s) [11.63 unit(s)/kg/hr] + Dextrose 5% Premix Diluent 250 mL 250 mL, Intravenous, 10 mL/hr PRN: (14) acetaminophen 325 mg Tablet 650 mg 2 tab(s), Oral, q4h acetaminophen 325 mg Tablet 650 mg 2 tab(s), Oral, q4h acetaminophen 500 mg Tablet 1,000 mg 2 tab(s), Oral, q6h Al hydrox/Mg hydrox/simethicone 200-200-20 mg/5 mL Susp UD 15 mL, Oral, q4h albuterol - ipratropium 2.5 mg-0.5 mg/3 mL Inhal Kellie UD 3 mL, Inhalation, q4hRT dextrose 50% Solution Disp syringe 50 mL 25 gram(s) 50 mL, IV Push, AsDirected guaifenesin 100 mg/5 mL Liquid 120 mL 200 mg 10 mL, Oral, q4h heparin 5,000 units/mL (1 mL) vial 4,000 unit(s) 0.8 mL, IV Push, q6h hydromorphone 1 mg/mL (1mL) INJ 1 mg 1 mL, IV Push, q4h magnesium hydroxide 8% Suspension 30 mL UD 30 mL, Oral, qHS melatonin 3 mg tablet 3 mg 1 tab(s), Oral, qHS ondansetron 2 mg/ 1 mL 2 mL INJ 4 mg 2 mL, IV Push, q4h polyethylene glycol 3350 - UD packet 17 gram(s) 15 mL, Oral, qDay prochlorperazine 10 mg/2 mL vial 5 mg 1 mL, IV Push, q6h Lab Results 10/20 09:01 Glucose Level: 98 Sodium Level: 140 Potassium Level: 3.1 L BUN: 9.0 Creatinine Lvl (s): 0.61 10/20 04:16 WBC: 10.1 Hgb: 14.8 Hct: 42.6 Platelet: 231 Neutrophil %: 70.0 10/19 07:05 WBC: 11.2 H Hgb: 14.6 Hct: 42.2 Platelet: 227 Neutrophil %: 74.8 Glucose Level: 97 Sodium Level: 141 Potassium Level: 3.6 BUN: 6.0 L Creatinine Lvl (s): 0.61 EKG No qualifying data available. Assessment/Plan Orders: clopidogrel(Plavix), 75 mg= 1 tab(s), Oral, qDay empagliflozin(Jardiance), 10 mg= 1 tab(s), Oral, qAM potassium chloride(KCL), 40 mEq= 2 tab(s), Oral, Once sacubitril-valsartan(Entresto 24 mg-26 mg oral tablet), 1 tab(s), Oral, BID Basic Metabolic Panel(BMP), 10/21/24 5:00:00 EDT, Next AM Draw (one day only), Blood, q24h, for 5 day(s), Stop date 10/25/24 5:00:00 EDT Magnesium Level, 10/21/24 5:00:00 EDT, Next AM Draw (one day only), Blood, q24h, for 5 day(s), Stop date 10/25/24 5:00:00 EDT NSTEMI Moderate coronary artery disease (50% proximal D1 and 50% proximal LCx) New onset cardiomyopathy, nonischemic (EF 35 to 40% in October 2024) Hypertension Obesity Esophageal cancer status post recent esophageal stent Patient underwent urgent left heart catheterization which showed moderate coronary artery disease. Given his risk for bleeding, will complete 48 hours of heparin by weight followed by single antiplatelet therapy with Plavix. Continue statin and beta-issa for GDMT. New onset cardiomyopathy is likely nonischemic. Started GDMT with low-dose Entresto and Jardiance today. Will uptitrate GDMT as an outpatient. Patient is stable to be discharged from cardiology standpoint. Please check BMP in a week. Follow-up with cardiology within 2 weeks. Thank you for letting participate in patient care. We will sign off today. Digitally Signed by SOFIA VELASCO MD on 10/20/2024 01:43 PM [facility] 10-20-2024 Discharge summary Date of Service 10/20/2024 Discharge Diagnosis 1. Dysphagia 2. History of esophageal cancer with strictures status post stent 3. NSTEMI 4. Cardiomyopathy with reduced ejection fraction 5. Pneumonia versus pneumonitis 6. Acute hypoxia respiratory failure 6. History of COPD Hospital Course 64-year-old male who has past medical history of GERD, tobacco dependence, COPD, esophageal cancer with stricture status post stents on 10/17/2024. Done by Dr. Bell at [facility]. The patient states that he went home after the stent was done and started to have worsening GERD and for that reason he went back to the emergency room. Transferred to [facility] because of elevated troponins, also CT chest was done and showed that there was findings concerning for infection/inflammation in lower lobes of both lungs. During his hospitalization he had [place] he was seen by our local cartographic aide who gave dietary recommendations, the patient had improvement in his dysphagia with the dietary recommendation. However, he did have significantly elevated troponins and echocardiogram showed an new EF of 30 to 35% with wall motion abnormalities. For that reason we will proceed with a left heart cath however coronary arteries were all patent. Discharged with guideline based medications for heart failure reduced ejection fraction Received antibiotics while in hospital and discharged with further doses of antibiotics for suspected aspiration pneumonia. Patient will need to follow-up with his primary care physician, gastroenterology and cardiology on an outpatient basis. Allergies morphine angry Procedures Left heart cath Consults Consult to Physician - Ordered -- 10/18/24 6:53:00 EDT, JACKY FARLEY MD, Routine, Severe esophageal pain as well as dysphagia after stent placement Imaging Results and Diagnostics XR Chest 1 View Result Date: October 19, 2024 Verified By: RENE SOLANO MD CLINICAL STATEMENT: IMPRESSION: Interstitial edema pattern. Physical Exam Vitals and Measurements T: 36.8 C (Oral) TMIN: 36.8 C (Oral) TMAX: 37.3 C (Oral) HR: 95 RR: 18 BP: 139/72 SpO2: 92% Weight Dosing Weight: 86 kg (10/18/24) GENERAL: Pt is comfortable in bed. Appears in no acute distress. HEENT: Mucous membranes pink and moist NEURO: Alert and oriented X 3 NECK: Supple, No JVD CVS: S1 & S2 audible, Regular Rate and Rhythm CHEST : No accesory muscle use, equal air entry bilaterally, no adventitious breath sounds GI: Normoactive BS, abdomen soft and non tender EXTREMITIES: No pedal edema Code Status Code Status - Ordered -- 10/18/24 6:36:00 EDT, Full Code, Constant Order Admission Date 10/18/2024 Discharge Date 10/20/2024 Patient Instructions Due to an abnormal echocardiogram cardiology 1 CCTA the following medications: Metoprolol Jardiance Plavix Entresto Lipitor. Please make appointment follow-up with cardiology Keep your dietary recommendations as per gastroenterology enterology Take Protonix twice per day until your cartographic aide tells you otherwise. Follow-up with primary care physician Medications New Prescription atorvastatin (Lipitor 40 mg oral tablet)1 tab(s) by mouth once a day. Refills: 2. clopidogrel (Plavix 75 mg oral tablet)1 tab(s) by mouth once a day. Refills: 2. empagliflozin (Jardiance 10 mg oral tablet)1 tab(s) by mouth once a day (in the morning). Refills: 0. metoprolol (metoprolol succinate 25 mg oral TABLET extended release)1 tab(s) by mouth once a day with a meal. Refills: 0. pantoprazole (Protonix 40 mg oral enteric coated tablet)1 tab(s) by mouth two (2) times a day. Refills: 0. sacubitril-valsartan (Entresto 24 mg-26 mg oral tablet)1 tab(s) by mouth two (2) times a day. Refills: 0. Unchanged albuterol (Albuterol (Eqv-Proventil HFA) 90 mcg/inh inhalation aerosol)2 puff(s) by inhalation four (4) times a day as needed Shortness of breath or wheezing. gabapentin (gabapentin 400 mg oral capsule)1 cap by mouth two (2) times a day. Discontinued amoxicillin-clavulanate (amoxicillin-clavulanate 600 mg-42.9 mg/5 mL oral liquid)5 Milliliter by mouth two (2) times a day for 10 Days. omeprazole (omeprazole 20 mg oral delayed release capsule)1 cap by mouth once a day. Follow Up Follow Up with VINNIE ESTEVEZ MD Where:[address] [facility] [place] [address]- [phone] Additional Information: Call to make appointment in 2 to 3 weeks Follow Up with [facility] will contact you for an appointment in 4-6weeks If you have any questions please call:[phone]. Follow Up Appointments No qualifying data available. Follow Up Labs/Studies Discharge Labs Discharge Outpatient Labwork - Ordered -- BMP, Electrolyte abnormalities, follow-up within: 2-4 days, Results Notify to: CARLOS GARCIA MD, 10/20/24 12:55:00 EDT Discharge Studies No Follow-up Studies Discharge Diet Discharge Diet - Ordered -- 10/20/24 12:55:00 EDT Discharge Activity Discharge Activity - Ordered -- Activity As Tolerated, 10/20/24 12:55:00 EDT Condition on Discharge stable Discharge Disposition Home Information Provided To the patient Time Spent Greater than 40 minutes spent in discharge planning Digitally Signed by FALGUNI MOSER MD on 10/20/2024 05:28 PM [facility] 10-19-2024 Cardiology Consult note Date of Service 10/19/2024 Reason for Consultation NSTEMI Referring Physician Hospital medicine History of Present Illness Patient is a 64-year-old male with past medical and cardiac history as in the assessment. Patient came to the hospital with burning sensation in the epigastrium for the last 2 days. Patient had recently diagnosed esophageal cancer, currently under evaluation for staging and management. He received esophageal stent on 10/17/2024. Patient was having epigastric pain since yesterday. 10 severity, located in the mid epigastrium, no radiation and associated symptoms. Patient denied chest pain or discomfort at rest on exertion. He has mild shortness of breath that has been going on for the last few days. Denied weight changes, orthopnea and PND. Patient denied past medical history of CAD, CHF, TIA, CVA, CKD, thyroid disorder and MAGGI. He smokes 1 pack/day for about 50 years. He is a current smoker. Denies drinking and drug use. Review of Systems Constitutional: denies Fevers and chills , no loss of appetite, denies fatigue or weight change Eyes: Denies double vision/blurring of vision/flashes or floaters Ears, Nose, Mouth & Throat: Denies any tinnitus/hearing loss/sinus congestion/nasal discharge/sore throat Gastrointestinal: Denies any abdominal pain/nausea/vomiting/diarrhea/sae tochezia/hematemesis/melena Genitourinary: Denies any dysuria/hematuria Musculoskeletal: denies joint pain or joint swelling or deformities Skin: No ulcers or rash Neurological: denies Weakness or numbness of extremities/facial droop/loss of balance Endocrine: Denies any heat or cold intolerance/polyuria/polydipsia/po lyphagia Hematologic/Lymphatic: denies lymphadenopathy Allergic/Immunologic: Denies any seasonal allergy/sneezing/tearing from the eyes Physical Exam Vitals and Measurements T: 37.6 C (Oral) TMIN: 36.8 C (Oral) TMAX: 37.6 C (Oral) HR: 121 (Apical) RR: 20 BP: 116/83 SpO2: 93% Weight Dosing Weight: 86 kg (10/18/24) General Appearance: Patient comfortably lying on bed, not in acute distress Head: Normocephalic, atraumatic EENT: PERRLA, Neck: Supple, no JVD, no mass Cardiac: s1s2,RRR, no murmurs or rubs or gallops Lungs: Few bibasilar crackles Abdomen: Soft , Nontender, no organomegaly, bowel sounds heard Musculoskeletal: Full ROM , no gross deformities Extremities: No rash or ulcers or pedal edema Neurological: Alert, oriented x 3, grossly no focal neurological deficits Skin: No rash or ulcers Lab Results 10/19 07:05 WBC: 11.2 H Hgb: 14.6 Hct: 42.2 Platelet: 227 Neutrophil %: 74.8 Glucose Level: 97 Sodium Level: 141 Potassium Level: 3.6 BUN: 6.0 L Creatinine Lvl (s): 0.61 Assessment/Plan NSTEMI Hypertension Obesity Esophageal cancer status post recent stent Patient has elevated troponin, peaked at 1800 and trended down. EKG showed ST depression in V3-V6. Echocardiogram showed newly diagnosed reduced EF 30 to 35%, with regional wall motion abnormalities of anteroseptal and anterior myocardium. Started on IV heparin by weight, aspirin and statin. Patient is also on low-dose metoprolol. Discussed the risk including current planning for the esophageal surgery. Regional wall motion abnormalities concerning for LAD territory, we will go ahead and get a left heart cath. Will uptitrate GDMT for cardiomyopathy. He is euvolemic on physical exam. Thank you for letting us participate in patient care and we will follow. Procedure/Surgical History Umbilical hernia Cervical discectomy Cholecystectomy Pacemaker catheter Medications Inpatient aspirin, 81 mg= 1 tab(s), Oral, qDayM Dextrose 50% IV Push, 25 gram(s)= 50 mL, IV Push, AsDirected, PRN Dilaudid, 1 mg= 1 mL, IV Push, q4h, PRN DuoNeb, 3 mL, Inhalation, q4hRT, PRN gabapentin, 400 mg= 1 cap(s), Oral, BID guaiFENesin, 200 mg= 10 mL, Oral, q4h, PRN Heparin for IV 25,000 unit(s) [11.63 unit(s)/kg/hr] + Dextrose 5% Premix Diluent 250 mL Heparin HBW CARDIAC Bolus 5000 units/mL, 4000 unit(s)= 0.8 mL, 60 unit(s)/kg, IV Push, q6h, PRN Lipitor, 40 mg= 1 tab(s), Oral, qDay Maalox, 15 mL, Oral, q4h, PRN melatonin, 3 mg= 1 tab(s), Oral, qHS, PRN metoprolol succinate 25 mg oral TABLET extended release, 25 mg= 1 tab(s), Oral, qDayM Miralax Powder Packet, 17 gram(s)= 15 mL, Oral, qDay, PRN prochlorperazine, 5 mg= 1 mL, IV Push, q6h, PRN Protonix, 40 mg, IV Push, qDayAC Rocephin, 2 gram(s)= 20 mL, IV Push (INT), qDay Tylenol, 650 mg= 2 tab(s), Oral, q4h, PRN Tylenol, 650 mg= 2 tab(s), Oral, q4h, PRN Zofran, 4 mg= 2 mL, IV Push, q4h, PRN Home Albuterol (Eqv-Proventil HFA) 90 mcg/inh inhalation aerosol, 2 puff(s), Inhalation, QID, PRN amoxicillin-clavulanate 600 mg-42.9 mg/5 mL oral liquid, 5 mL, Oral, BID gabapentin 400 mg oral capsule, 400 mg= 1 cap(s), Oral, BID omeprazole 20 mg oral delayed release capsule, 20 mg= 1 cap(s), Oral, qDay Allergies morphine angry Social History Alcohol Use: Current. Frequency: 1-2 times per year., 06/26/2023 Home/Environment Living situation: Home/Independent. Domestic Concerns: None. Primary Scanner Supervisor: Self. Current Home Treatments CPAP. Professional Skilled Services or Special Community Resources None. Guardian(s) Information: Ronel. Marital Status: ., 06/26/2023 Nutrition/Health Type of diet: Regular. Appetite Good. Eating Difficulties None., 06/26/2023 Substance Abuse Use: Never., 06/24/2023 Tobacco Nicotine Use: 10 or more cigarettes (1/2 pack or more)/day in last 30 days. Type: Cigarettes. Tobacco use per day: 20. Number of years: 50., 10/17/2024 Immunizations No qualifying data available. Digitally Signed by SOFIA VELASCO MD on 10/19/2024 11:19 AM [facility] 10-19-2024 Note Date of Service 10/19/2024 Chief Complaint Dysphagia Subjective Patient continues to complain of reflux symptoms which she specifically describes as burning in his chest. Denies any shortness of breath. Seen by GI yesterday and dietary recommendations given, currently tolerating liquids. Objective Vitals and Measurements T: 37.6 C (Oral) TMIN: 36.8 C (Oral) TMAX: 37.6 C (Oral) HR: 111 RR: 18 BP: 117/73 SpO2: 92% HT: 165.1 cm WT: 86 kg BMI: 31.55 Intake and Output 7AM Yesterday to 7AM Today Intake and Output (Last 24 hours) Intake Administration Information 2616.22 Oral Intake 300.00 Output Urine Voided 1600.00 Stool Count 0.00 Total Summary Total Intake 2916.22 Total Output 1600.00 Fluid Balance 1316.22 Physical Exam GENERAL: Pt is comfortable in bed. Appears in no acute distress. HEENT: Mucous membranes pink and moist NEURO: Alert and oriented X 3 NECK: Supple, No JVD CVS: S1 & S2 audible, Regular Rate and Rhythm CHEST : No accesory muscle use, equal air entry bilaterally, no adventitious breath sounds GI: Normoactive BS, abdomen soft and non tender EXTREMITIES: Trace bilateral pedal edema Weight Dosing Weight: 86 kg (10/18/24) Medications Medications (16) Active Scheduled: (3) cefTRIAXone IVP syringe 2 gram(s) 20 mL, IV Push (INT), qDay gabapentin 400 mg capsule 400 mg 1 cap(s), Oral, BID pantoprazole 40 mg VIAL 40 mg, IV Push, qDayAC Continuous: (1) heparin 25,000 unit(s) [11.63 unit(s)/kg/hr] + Dextrose 5% Premix Diluent 250 mL 250 mL, Intravenous, 10 mL/hr PRN: (12) acetaminophen 325 mg Tablet 650 mg 2 tab(s), Oral, q4h acetaminophen 325 mg Tablet 650 mg 2 tab(s), Oral, q4h Al hydrox/Mg hydrox/simethicone 200-200-20 mg/5 mL Susp UD 15 mL, Oral, q4h albuterol - ipratropium 2.5 mg-0.5 mg/3 mL Inhal Kellie UD 3 mL, Inhalation, q4hRT dextrose 50% Solution Disp syringe 50 mL 25 gram(s) 50 mL, IV Push, AsDirected guaifenesin 100 mg/5 mL Liquid 120 mL 200 mg 10 mL, Oral, q4h heparin 5,000 units/mL (1 mL) vial 4,000 unit(s) 0.8 mL, IV Push, q6h hydromorphone 1 mg/mL (1mL) INJ 1 mg 1 mL, IV Push, q4h melatonin 3 mg tablet 3 mg 1 tab(s), Oral, qHS ondansetron 2 mg/ 1 mL 2 mL INJ 4 mg 2 mL, IV Push, q4h polyethylene glycol 3350 - UD packet 17 gram(s) 15 mL, Oral, qDay prochlorperazine 10 mg/2 mL vial 5 mg 1 mL, IV Push, q6h Lab Results 10/19 07:05 WBC: 11.2 H Hgb: 14.6 Hct: 42.2 Platelet: 227 Neutrophil %: 74.8 Glucose Level: 97 Sodium Level: 141 Potassium Level: 3.6 BUN: 6.0 L Creatinine Lvl (s): 0.61 EKG No qualifying data available. Assessment/Plan 1. Dysphagia 2. History of esophageal cancer with strictures status post stent 3. NSTEMI 4. Cardiomyopathy with reduced ejection fraction 5. Pneumonia versus pneumonitis 6. Acute hypoxia 6. History of COPD, not in exacerbation. Plan: Patient had significantly elevated troponins when he came into the hospital. He complains of burning in his chest which she thinks is from GERD. However echocardiogram done did show that he has ejection fraction of 30 to 35% and also hypokinesis of the anterior septal myocardium. He denies any prior history of cardiomyopathy. Cardiology was consulted yesterday, awaiting their input. Continue heparin drip for now. Add baby aspirin Get lipid panel and start high intensity statin, Get A1c Had episode of acute hypoxia last night, despite this the patient Is not complaining of any respiratory symptoms. He was 85% on room air, bumped up to 92% on 2 L of oxygen. On physical examination he does have trace bilateral pedal edema but does not seem overtly volume overloaded. Follow-up on diuretics for now. Discontinue IV fluids Continue twice daily PPI Dietary recommendations as per gastroenterology Continue ceftriaxone, plan is to give 5 days of antibiotics for suspected aspiration pneumonitis. Level of Care Indication SD monitor (other: specify in note)NSTEMI DVT Prophylaxis Full anticoagulation Maintenance IVF Indication NA / No maintenance IVF Indwelling Urinary Catheter Indication NA No indwelling catheter Anticipated Timeline of Discharge _Dependent on cardiology's recommendations Anticipated DC Disposition Home without services Digitally Signed by FALGUNI MOSER MD on 10/19/2024 08:56 AM [facility] 10-19-2024 Note Exam Date Time Procedure Performing Provider Status 10/19/24 2:41 PM Cardiac Catheterization -CV Modified [id number] Cardiology Consult note Date of Service 10/19/2024 Reason for Consultation NSTEMI Referring Physician Hospital medicine History of Present Illness Patient is a 64-year-old male with past medical and cardiac history as in the assessment. Patient came to the hospital with burning sensation in the epigastrium for the last 2 days. Patienthad recently diagnosed esophageal cancer, currently under evaluation for staging and management. Hereceived esophageal stent on 10/17/2024. Patient was having epigastric pain since yesterday. 01/26 severity, located in the mid epigastrium, no radiation and associated symptoms. Patient denied chest pain or discomfort at rest on exertion. He has mild shortness of breath that has been going on for the last few days. Denied weight changes, orthopnea and PND. Patient denied past medical history of CAD, CHF, TIA, CVA, CKD, thyroid disorder and MAGGI. He smokes1 pack/day for about 50 years. He is a current smoker. Denies drinking and drug use. Review of Systems Constitutional: denies Fevers and chills , no loss of appetite, denies fatigue or weight change Eyes: Denies double vision/blurring of vision/flashes or floaters Ears, Nose, Mouth & Throat: Denies any tinnitus/hearing loss/sinus congestion/nasal discharge/sore throat Gastrointestinal: Denies any abdominal pain/nausea/vomiting/diarrhea/hematochezia/hematemesis/melena Genitourinary: Denies any dysuria/hematuria Musculoskeletal: denies joint pain or joint swelling or deformities Skin: No ulcers or rash Neurological: denies Weakness or numbness of extremities/facial droop/loss of balance Endocrine: Denies any heat or cold intolerance/polyuria/polydipsia/polyphagia Hematologic/Lymphatic: denies lymphadenopathy Allergic/Immunologic: Denies any seasonal allergy/sneezing/tearing from the eyes Physical Exam Vitals and Measurements T: 37.6 C (Oral) TMIN: 36.8 C (Oral) TMAX: 37.6 C (Oral) HR: 121 (Apical) RR: 20 BP: 116/83 SpO2: 93% Weight Dosing Weight: 86 kg (10/18/24) General Appearance: Patient comfortably lying on bed, not in acute distress Head: Normocephalic, atraumatic EENT: PERRLA, Neck: Supple, no JVD, no mass Cardiac: s1s2,RRR, no murmurs or rubs or gallops Lungs: Few bibasilar crackles Abdomen: Soft , Nontender, no organomegaly, bowel sounds heard Musculoskeletal: Full ROM , no gross deformities Extremities: No rash or ulcers or pedal edema Neurological: Alert, oriented x 3, grossly no focal neurological deficits Skin: No rash or ulcers Lab Results 10/19 07:05 WBC: 11.2 H Hgb: 14.6 Hct: 42.2 Platelet: 227 Neutrophil %: 74.8 Glucose Level: 97 Sodium Level: 141 Potassium Level: 3.6 BUN: 6.0 L Creatinine Lvl (s): 0.61 Assessment/Plan NSTEMI Hypertension Obesity Esophageal cancer status post recent stent Patient has elevated troponin, peaked at 1800 and trended down. EKG showed ST depression in V3-V6. Echocardiogram showed newly diagnosed reduced EF 30 to 35%, with regional wall motion abnormalities of anteroseptal and anterior myocardium. Started on IV heparin by weight, aspirin and statin. Patient is also on low-dose metoprolol. Discussed the risk including current planning for the esophageal surgery. Regional wall motion abnormalities concerning for LAD territory, we will go ahead and get a left heart cath. Will uptitrate GDMT for cardiomyopathy. He is euvolemic on physical exam. Thank you for letting us participate in patient care and we will follow. Procedure/Surgical History Umbilical hernia Cervical discectomy Cholecystectomy Pacemaker catheter Medications Inpatient aspirin, 81 mg= 1 tab(s), Oral, qDayM Dextrose 50% IV Push, 25 gram(s)= 50 mL, IV Push, AsDirected, PRN Dilaudid, 1 mg= 1 mL, IV Push, q4h, PRN DuoNeb, 3 mL, Inhalation, q4hRT, PRN gabapentin, 400 mg= 1 cap(s), Oral, BID guaiFENesin, 200 mg= 10 mL, Oral, q4h, PRN Heparin for IV 25,000 unit(s) [11.63 unit(s)/kg/hr] + Dextrose 5% Premix Diluent 250 mL Heparin HBW CARDIAC Bolus 5000 units/mL, 4000 unit(s)= 0.8 mL, 60 unit(s)/kg, IV Push, q6h, PRN Lipitor, 40 mg= 1 tab(s), Oral, qDay Maalox, 15 mL, Oral, q4h, PRN melatonin, 3 mg= 1 tab(s), Oral, qHS, PRN metoprolol succinate 25 mg oral TABLET extended release, 25 mg= 1 tab(s), Oral, qDayM Miralax Powder Packet, 17 gram(s)= 15 mL, Oral, qDay, PRN prochlorperazine, 5 mg= 1 mL, IV Push, q6h, PRN Protonix, 40 mg, IV Push, qDayAC Rocephin, 2 gram(s)= 20 mL, IV Push (INT), qDay Tylenol, 650 mg= 2 tab(s), Oral, q4h, PRN Tylenol, 650 mg= 2 tab(s), Oral, q4h, PRN Zofran, 4 mg= 2 mL, IV Push, q4h, PRN Home Albuterol (Eqv-Proventil HFA) 90 mcg/inh inhalation aerosol, 2 puff(s), Inhalation, QID, PRN amoxicillin-clavulanate 600 mg-42.9 mg/5 mL oral liquid, 5 mL, Oral, BID gabapentin 400 mg oral capsule, 400 mg= 1 cap(s), Oral, BID omeprazole 20 mg oral delayed release capsule, 20 mg= 1 cap(s), Oral, qDay Allergies morphine angry Social History Alcohol Use: Current. Frequency: 1-2 times per year., 06/26/2023 Home/Environment Living situation: Home/Independent. Domestic Concerns: None. Primary Scanner Supervisor: Self. Current HomeTreatments CPAP. Professional Skilled Services or Special Community Resources None. Guardian(s) Information: Ronel. Marital Status: ., 06/26/2023 Nutrition/Health Type of diet: Regular. Appetite Good. Eating Difficulties None., 06/26/2023 Substance Abuse Use: Never., 06/24/2023 Tobacco Nicotine Use: 10 or more cigarettes (1/2 pack or more)/day in last 30 days. Type: Cigarettes. Tobacco use per day: 20. Number of years: 50., 10/17/2024 Immunizations No qualifying data available. Digitally Signed by SOFIA VELASCO MD on 10/19/2024 11:19 AM [id number] Note* Exam Date Time Procedure Performing Provider Status 10/19/24 9:31 AM XR Chest 1 View RENE SOLANO MD; Auth (Verified) [id number] ORIGINAL EXAMINATION: ONE XRAY VIEW OF THE CHEST10/19/2024 9:31 am Portable upright COMPARISON: None HISTORY: ORDERING SYSTEM PROVIDED HISTORY: Reason for Exam: SOB, FINDINGS: Normal heart size and mediastinal contours for age and projection. Left-sided pacemaker with dual intracardiac leads. There is diffuse interstitial and peribronchial thickening. Minor right basilar atelectasis, no significant consolidation or pleural effusion. No acute rib fractures. IMPRESSION: Interstitial edema pattern. Interpreted by: Rene Solano MD Preliminary Report By: Rene Solano MD Electronically signed By Rene Solano MD Dictated Date: 10/19/2024 9:50:20 AM Prelim Date: 10/19/2024 9:50:54 AM Sign Date: 10/19/2024 9:50:54 AM Ordering Provider: FALGUNI MOSER [id number] Note Date of Service 10/19/2024 Chief Complaint Dysphagia Subjective Patient continues to complain of reflux symptoms which she specifically describes as burning in hischest. Denies any shortness of breath. Seen by GI yesterday and dietary recommendations given, currently tolerating liquids. Objective Vitals and Measurements T: 37.6 C (Oral) TMIN: 36.8 C (Oral) TMAX: 37.6 C (Oral) HR: 111 RR: 18 BP: 117/73 SpO2: 92% HT: 165.1 cm WT: 86 kg BMI: 31.55 Intake and Output 7AM Yesterday to 7AM Today Intake and Output (Last 24 hours) Intake Administration Information 2616.22 Oral Intake 300.00 Output Urine Voided 1600.00 Stool Count 0.00 Total Summary Total Intake 2916.22 Total Output 1600.00 Fluid Balance 1316.22 Physical Exam GENERAL: Pt is comfortable in bed. Appears in no acute distress. HEENT: Mucous membranes pink and moist NEURO: Alert and oriented X 3 NECK: Supple, No JVD CVS: S1 & S2 audible, Regular Rate and Rhythm CHEST : No accesory muscle use, equal air entry bilaterally, no adventitious breath sounds GI: Normoactive BS, abdomen soft and non tender EXTREMITIES: Trace bilateral pedal edema Weight Dosing Weight: 86 kg (10/18/24) Medications Medications (16) Active Scheduled: (3) cefTRIAXone IVP syringe 2 gram(s) 20 mL, IV Push (INT), qDay gabapentin 400 mg capsule 400 mg 1 cap(s), Oral, BID pantoprazole 40 mg VIAL 40 mg, IV Push, qDayAC Continuous: (1) heparin 25,000 unit(s) [11.63 unit(s)/kg/hr] + Dextrose 5% Premix Diluent 250 mL 250 mL, Intravenous, 10 mL/hr PRN: (12) acetaminophen 325 mg Tablet 650 mg 2 tab(s), Oral, q4h acetaminophen 325 mg Tablet 650 mg 2 tab(s), Oral, q4h Al hydrox/Mg hydrox/simethicone 200-200-20 mg/5 mL Susp UD 15 mL, Oral, q4h albuterol - ipratropium 2.5 mg-0.5 mg/3 mL Inhal Kellie UD 3 mL, Inhalation, q4hRT dextrose 50% Solution Disp syringe 50 mL 25 gram(s) 50 mL, IV Push, AsDirected guaifenesin 100 mg/5 mL Liquid 120 mL 200 mg 10 mL, Oral, q4h heparin 5,000 units/mL (1 mL) vial 4,000 unit(s) 0.8 mL, IV Push, q6h hydromorphone 1 mg/mL (1mL) INJ 1 mg 1 mL, IV Push, q4h melatonin 3 mg tablet 3 mg 1 tab(s), Oral, qHS ondansetron 2 mg/ 1 mL 2 mL INJ 4 mg 2 mL, IV Push, q4h polyethylene glycol 3350 - UD packet 17 gram(s) 15 mL, Oral, qDay prochlorperazine 10 mg/2 mL vial 5 mg 1 mL, IV Push, q6h Lab Results 04/02 07:05 WBC: 11.2 H Hgb: 14.6 Hct: 42.2 Platelet: 227 Neutrophil %: 74.8 Glucose Level: 97 Sodium Level: 141 Potassium Level: 3.6 BUN: 6.0 L Creatinine Lvl (s): 0.61 EKG No qualifying data available. Assessment/Plan 1. Dysphagia 2. History of esophageal cancer with strictures status post stent 3. NSTEMI 4. Cardiomyopathy with reduced ejection fraction 5. Pneumonia versus pneumonitis 6. Acute hypoxia 6. History of COPD, not in exacerbation. Plan: Patient had significantly elevated troponins when he came into the hospital. He complains of burning in his chest which she thinks is from GERD. However echocardiogram done did show that he has ejection fraction of 30 to 35% and also hypokinesis of the anterior septal myocardium. He denies any prior history of cardiomyopathy. Cardiology was consulted yesterday, awaiting their input. Continue heparin drip for now. Add baby aspirin Get lipid panel and start high intensity statin, Get A1c Had episode of acute hypoxia last night, despite this the patient Is not complaining of any respiratory symptoms. He was 85% on room air, bumped up to 92% on 2 L of oxygen. On physical examination hedoes have trace bilateral pedal edema but does not seem overtly volume overloaded. Follow-up on diuretics for now. Discontinue IV fluids Continue twice daily PPI Dietary recommendations as per gastroenterology Continue ceftriaxone, plan is to give 5 days of antibiotics for suspected aspiration pneumonitis. Level of Care Indication SD monitor (other: specify in note)NSTEMI DVT Prophylaxis Full anticoagulation Maintenance IVF Indication NA / No maintenance IVF Indwelling Urinary Catheter Indication NA No indwelling catheter Anticipated Timeline of Discharge _Dependent on cardiology's recommendations Anticipated DC Disposition Home without services Digitally Signed by FALGUNI MOSER MD on 10/19/2024 08:56 AM [id number] Gastroenterology Consult note Date of Service October 19, 2024 Reason for Consultation Recent esophageal stent, chest pain Referring Physician Parth History of Present Illness 64-year-old male with past medical history of below presented to the ER complaining of chest pain and nausea/vomiting. Patient has a history of esophageal cancer and underwent EGD with wall flex partially covered stent placement on 10/17/2024. Patient reports that after the procedure when he got home he began having chest pain that progressively worsened and eventually was unable to tolerate any oral intake and therefore return to the ER. Labs showed: WBC 14.1, hemoglobin 16, platelet 283, normal BMP, normal hepatic function panel except for elevated total bilirubin at 1.3, normal lipase. Respiratory panel negative. Troponin elevated x 3. CT chest showed findings consistent with infection orinflammation in the lungs, more pronounced in the lower lobes. Esophageal stent is in place with noevidence of esophageal perforation. Layering fluid is present in the esophagus and stent. Patient was admitted for further evaluation and management. Review of Systems 14 systems were discussed and reviewed and were negative except as mentioned in HPI. Physical Exam Vitals and Measurements T: 37.6 C (Oral) TMIN: 36.8 C (Oral) TMAX: 37.6 C (Oral) HR: 111 RR: 18 BP: 117/73 SpO2: 92% HT: 165.1 cm WT: 86 kg BMI: 31.55 Weight Dosing Weight: 86 kg (10/18/24) General Appearance: Patient was not in distress on my evaluation. Alert and appropriate. Head: Atraumatic and normocephalic EENT: EOMI, no oropharyngeal erythema, no tonsillar exudates, no conjunctival injection, sclera anicteric. Neck: Supple. No thyromegaly. Trachea midline Cardiac: S1 and S2 normal. Regular rhythm. Regular rate. No extra audible hearts tones. No JVD. Lungs: Good air entry bilaterally. No increased work for breathing. No wheezes, rhonchi, or rales. Abdomen: Soft, nontender and no distention. No rebound tenderness. Bowel sounds are present. Musculoskeletal/Extremities: No edema. Full range of motion upper and lower extremities. Adequate peripheral circulation. Neurological: Grossly intact without focal deficit. Cerebellar function preserved. Skin: Intact. Warm. There was no rash. Psychiatric: Alert and oriented, well groomed, cooperative Lab Results No 36 Hour Lab Data Imaging Results and Diagnostics CT CHEST WITH CONTRAST 10/17/2024 6:56 pm TECHNIQUE Multiple-row detector helical CT examination of the thorax with IV contrast. Axial, sagittal, and coronal reconstructed images. This exam was performed according to our departmental dose optimization program, and includes the following measures where applicable: automated exposure control, adjustment of the mAs and/or kVp according to patient size and/or exam, and an iterative reconstruction algorithm. HISTORY: ORDERING SYSTEM PROVIDED HISTORY: Reason for Exam: EGD with stent this AM, chest and neck pain, cannot swallow, vomiting, hx esophageal cancer COMPARISON None FINDINGS: LOWER NECK: No enlarged supraclavicular lymph nodes are present. No actionable thyroid nodule is identified. PULMONARY PARENCHYMA AND AIRWAYS: The trachea and mainstem bronchi are patent. Scattered areas of pulmonary and pleural scarring/atelectasis are present. Scattered nodular opacities in the superior segment of the bilateral lower lobes are noted. No pneumothorax, focal area of consolidation, or suspicious pulmonary nodules identified. Posterior right lower lobe calcified granuloma is present. PLEURAL SPACE: No pleural fluid or thickening is present. HEART PERICARDIUM: The cardiac chambers are normal in size. Coronary artery atherosclerosis. No pericardial fluid or thickening is present. MEDIASTINUM SEBASTIEN: No mediastinal mass is present. No enlarged lymph nodes are present. Calcified mediastinal and right hilar lymph nodes are present. Esophageal stent is present traversing the mid and distal esophagus terminating in the gastric fundus. The esophagus proximal to the stent is fluid-filled and minimally dilated. No evidence of esophageal perforation. THORACIC VESSELS: No vascular abnormality is present. OSSEOUS STRUCTURES AND CHEST WALL: No acute osseous or soft tissue abnormality. 8 mm fluid density lesion in the anterior chest wall likely represents a sebaceous cyst. 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 Multilevel degenerative changes of the visualized spine. UPPER ABDOMEN: CT abdomen pelvis is performed on the same day and reported separately. ADDITIONAL: None. IMPRESSION: Findings consistent with infection or inflammation in the lungs, more pronounced in the lower lobes. Esophageal stent is in place with no evidence of esophageal perforation.Layering fluid is present in the esophagus and stent. Assessment/Plan Orders: Diet Order, 10/18/24 18:09:00 EDT, Clear Liquid Diet, Constant Order, : N/A, : N/A 1. NSTEMI 2. History of esophageal cancer status post esophageal stent: A partially covered stent was placed on 10/17/[address] Chen at [place]. It is very common for patients after they receive an esophageal stent to develop chest pain. After the stent is in position it slowly expands over the next 48 to 72 hours often resulting in discomfort. CT evaluation confirms esophageal stent is in place with no evidence of esophageal perforation. -Supportive therapies -Analgesics as needed -Okay for clear liquids. It is very important to follow a stent diet. The stent is slowly opening over 48 to 72 hours and therefore he will only tolerate certain diameter of solids. I would definitely do clear liquids for the first 1 to 2 days until he is tolerating that. Then could consider full liquids for another 24 hours while trying to get him more comfortable. An example of a stent diet would include: (Only advanced to the next level if tolerating) Postop day 1-2: Fluids only including water, tea, coffee, fruit juices, milk, soft drinks, sports drinks. Start with small sips and increase the volume as you feel confident. Postop day 3-4: Smooth or pur ed foods including soup without lumps, applesauce, yogurt, ice cream,pudding or gelatin. Increase the texture of your food to a soft consistency as you feel you are swallowing becomes easier and your confidence builds. You may try scrambled eggs, cottage cheese, steamed fish, mashed potatoes, mashed banana and putting Postop day 5 and beyond: Try to include a wide variety of foods and fluids in your diet so you achieve as close to normal diet as possible and ensure you meet your nutritional needs. This would be a soft consistency diet. Thank you for allowing me to be part of this patient's care. If you have any questions or concerns please feel free to reach me through the [facility]. Procedure/Surgical History Umbilical hernia Cervical discectomy Pacemaker catheter Cholecystectomy Medications Inpatient Dextrose 50% IV Push, 25 gram(s)= 50 mL, IV Push, AsDirected, PRN Dilaudid, 1 mg= 1 mL, IV Push, q4h, PRN DuoNeb, 3 mL, Inhalation, q4hRT, PRN gabapentin, 400 mg= 1 cap(s), Oral, BID guaiFENesin, 200 mg= 10 mL, Oral, q4h, PRN Heparin for IV 25,000 unit(s) [11.63 unit(s)/kg/hr] + Dextrose 5% Premix Diluent 250 mL Heparin HBW CARDIAC Bolus 5000 units/mL, 4000 unit(s)= 0.8 mL, 60 unit(s)/kg, IV Push, q6h, PRN Maalox, 15 mL, Oral, q4h, PRN melatonin, 3 mg= 1 tab(s), Oral, qHS, PRN Miralax Powder Packet, 17 gram(s)= 15 mL, Oral, qDay, PRN NS 1,000 mL, 1000 mL, Intravenous prochlorperazine, 5 mg= 1 mL, IV Push, q6h, PRN Protonix, 40 mg, IV Push, qDayAC Rocephin, 2 gram(s)= 20 mL, IV Push (INT), qDay Tylenol, 650 mg= 2 tab(s), Oral, q4h, PRN Tylenol, 650 mg= 2 tab(s), Oral, q4h, PRN Zofran, 4 mg= 2 mL, IV Push, q4h, PRN Home Albuterol (Eqv-Proventil HFA) 90 mcg/inh inhalation aerosol, 2 puff(s), Inhalation, QID, PRN amoxicillin-clavulanate 600 mg-42.9 mg/5 mL oral liquid, 5 mL, Oral, BID gabapentin 400 mg oral capsule, 400 mg= 1 cap(s), Oral, BID omeprazole 20 mg oral delayed release capsule, 20 mg= 1 cap(s), Oral, qDay Allergies morphine angry Social History Alcohol Use: Current. Frequency: 1-2 times per year., 06/26/2023 Home/Environment Living situation: Home/Independent. Domestic Concerns: None. Primary Scanner Supervisor: Self. Current HomeTreatments CPAP. Professional Skilled Services or Special Community Resources None. Guardian(s) Information: Ronel. Marital Status: ., 06/26/2023 Nutrition/Health Type of diet: Regular. Appetite Good. Eating Difficulties None., 06/26/2023 Substance Abuse Use: Never., 06/24/2023 Tobacco Nicotine Use: 10 or more cigarettes (1/2 pack or more)/day in last 30 days. Type: Cigarettes. Tobacco use per day: 20. Number of years: 50., 10/17/2024 Immunizations No qualifying data available. Digitally Signed by JACKY FARLEY MD on 10/19/2024 06:58 AM Digitally Signed by JACKY FARLEY MD on 10/19/2024 03:49 PM [facility] [id number] Note. MICRO - Microbiology PROCEDURE: Streptococcus Pneumoniae Urine Antig [^1 *1] SOURCE: Urine BODY SITE: COLLECTED DATE/TIME: 10/18/2024 00:23 EDT RECEIVED DATE/TIME: 10/18/2024 13:54 EDT START DATE/TIME: 10/18/2024 13:55 EDT FREE TEXT SOURCE: FINAL REPORTS Final Report [] Verified Date/Time/Personnel: 10/18/2024 14:55 EDT Presumptive negative for pneumococcal pneumonia, suggesting no current or recent pneumococcal infection. Infection due to Strep pneumoniae cannot be ruled out since the antigen present in the sample may be below the detection limit of the test. Interpretive Data ^1: Streptococcus Pneumoniae Urine Antig This test has not been evaluated on patients taking antibiotics for greater than 24 hours or on patients who have recently completed an antibiotic regimen. The accuracy of this test has not been proven in young children. Performing Locations *1: This test was performed at: [address], [address] [place], [place] [id number] Note. MICRO - Microbiology PROCEDURE: Legionella Urine Ag [*1] SOURCE: Urine BODY SITE: COLLECTED DATE/TIME: 10/18/2024 00:23 EDT RECEIVED DATE/TIME: 10/18/2024 13:54 EDT START DATE/TIME: 10/18/2024 13:54 EDT FREE TEXT SOURCE: FINAL REPORTS Final Report [] Verified Date/Time/Personnel: 10/18/2024 14:55 EDT Presumptive negative for L. pneumophila serogroup 1 antigen in urine, suggesting no recent or current infection. Legionnaire's disease cannot be ruled out since other serogroups and species may also cause disease. Performing Locations *1: This test was performed at: [address], [address] [place], [place] [id number] Note* Exam Date Time Procedure Performing Provider Status 10/18/24 11:53 AM Echocardiogram, Adult - CV RENE BURT MD; Auth (Verified) [facility] [id number] Note Date of Service 10/18/2024 Chief Complaint Dysphagia Subjective 64-year-old male who has past medical history of GERD, tobacco dependence, COPD, esophageal cancer with stricture status post stents on 10/17/2024. Done by Dr. Bell at [facility]. The patient states that he went home after the stent was done and started to have worsening GERD and for that reason he went back to the emergency room. [facility]red to [facility] because of elevated troponins, also CT chest was done and showed that there was findings concerning for infection/inflammation in lower lobes of both lungs. The patient denies any chest pain, also denies any coughing, no fevers reported. This morning when I saw the patient he stated that he continues to have worsening GERD but apart from that did not report any other symptoms. Objective Vitals and Measurements T: 36.8 C (Oral) HR: 98 RR: 18 BP: 138/75 SpO2: 92% Intake and Output 7AM Yesterday to 7AM Today Intake and Output (Last 24 hours) Intake Output Total Summary Total Intake 0.00 Total Output 0.00 Fluid Balance 0.00 Physical Exam GENERAL: Pt is comfortable in bed. Appears in no acute distress. HEENT: Mucous membranes pink and moist NEURO: Alert and oriented X 3 Respiratory system: Chest clear Extremities: No edema CVS: S1, S2, regular rate and rhythm No qualifying data available. Medications Medications (17) Active Scheduled: (4) azithromycin IV 500 mg 5 mL, IV Piggyback, qDay cefTRIAXone IVP syringe 2 gram(s) 20 mL, IV Push (INT), qDay gabapentin 400 mg capsule 400 mg 1 cap(s), Oral, BID pantoprazole 40 mg VIAL 40 mg, IV Push, qDayAC Continuous: (2) heparin 25,000 unit(s) [11.63 unit(s)/kg/hr] + Dextrose 5% Premix Diluent 250 mL 250 mL, Intravenous, 10 mL/hr NS (0.9% nacl) 1,000 mL 1,000 mL, Intravenous, 100 mL/hr PRN: (11) acetaminophen 325 mg Tablet 650 mg 2 tab(s), Oral, q4h acetaminophen 325 mg Tablet 650 mg 2 tab(s), Oral, q4h albuterol - ipratropium 2.5 mg-0.5 mg/3 mL Inhal Kellie UD 3 mL, Inhalation, q4hRT dextrose 50% Solution Disp syringe 50 mL 25 gram(s) 50 mL, IV Push, AsDirected guaifenesin 100 mg/5 mL Liquid 120 mL 200 mg 10 mL, Oral, q4h heparin 5,000 units/mL (1 mL) vial 4,000 unit(s) 0.8 mL, IV Push, q6h hydromorphone 1 mg/mL (1mL) INJ 1 mg 1 mL, IV Push, q4h melatonin 3 mg tablet 3 mg 1 tab(s), Oral, qHS ondansetron 2 mg/ 1 mL 2 mL INJ 4 mg 2 mL, IV Push, q4h polyethylene glycol 3350 - UD packet 17 gram(s) 15 mL, Oral, qDay prochlorperazine 10 mg/2 mL vial 5 mg 1 mL, IV Push, q6h Lab Results No 36 Hour Lab Data EKG No qualifying data available. Assessment/Plan 1. Dysphagia 2. GERD 3. NSTEMI 4. Pneumonia versus pneumonitis 5. History of esophageal cancer and stricture status post stent 6. History of COPD, not in exacerbation 7. DVT prophylaxis Plan: Patient has no cardiovascular symptoms at this point, however did have significantly elevated troponins and was started on a heparin drip overnight by admitting physician. Cardiology consulted, will await their opinion. Echocardiogram ordered Continues to have what he describes as dyspepsia, not sure if he actually has dysphagia because thepatient has not tried to swallow anything since his stents were placed. GI consulted, await their opinion but for now keep him NPO. Twice daily PPI Continue IV fluids My suspicion for a pneumonia is extremely low due to the fact that the patient is not having any constitutional symptoms, also has not had any cough at home. Taking into consideration that he was well enough to do it spent yesterday under general anesthesia, I doubt that he has a pneumonia. Quite possibly this is pneumonitis from aspiration, will discontinue azithromycin. Keep ceftriaxone for aspiration pneumonitis. Analgesics as needed Level of Care Indication Regular Floor DVT Prophylaxis Full anticoagulation Maintenance IVF Indication NPO Indwelling Urinary Catheter Indication NA No indwelling catheter Anticipated Timeline of Discharge 24 hours Anticipated DC Disposition Home without services Digitally Signed by FALGUNI MOSER MD on 10/18/2024 09:25 AM [facility] [id number] NoteMer[facility] Health [facility]03-26-2025 History of Present illness Narrative* Kemal Obregon MD - 10/12/2024 9:34 AM EDT HISTORY OF PRESENT ILLNESS: Bill Estrada is a 64 year old male started with dysphagia in July 2024, y end of August very hard. Currently taking only shakes. Planned for stent. EGD done September 02, 2024 Mass seen, biopsy shows adenocarcinoma. Feeling dizzy, present for long time, maybe worse now CLINICAL IMPRESSION: Dysphagia Esophageal adenocarcinoma RECOMMENDATION/PLAN: 1. PET for staging 2. CT brain 3. See back shortly after PET to discuss treatment plan. Written and verbal health teaching given to patient, patient verbalizes understanding and agrees with treatment plan. PAST MEDICAL HISTORY Diagnosis Date Abdominal pain, left lower quadrant Arrhythmia Breakdown (mechanical) of cardiac electrode, initial encounter Carotid sinus hypersensitivity COPD (chronic obstructive pulmonary disease) (HCC) Diarrhea Diverticulosis of colon (without mention of hemorrhage) GERD (gastroesophageal reflux disease) Kidney stones Other specified heart block Presence of cardiac pacemaker 02/16/2024 [employer] dual-chamber pacemaker system implant 07/15/2013 for carotid sinus hypersensitivity; RV lead extracted and replaced (with generator change) 03/29/2024 due to RV lead malfunction Restless leg syndrome Sick sinus syndrome (HCC) 02/16/2024 Sinus arrest 02/16/2024 Syncope and collapse PAST SURGICAL HISTORY Procedure Laterality Date ANESTHESIA HERNIA REPAIR LOWER ABDOMEN NOS Umbilical hernia ANTERIOR INTERBODY FUSION, CERVICAL 2007 C4-C5 BASIC PACEMAKER DUAL CHAMBER Left 07/15/2013 [employer] dual-chamber pacemaker system implant; [facility], Dr. Gant CHOLECYSTECTOMY 2007 COLONOSCOPY FLX DX W/COLLJ SPEC WHEN PFRMD 08/20/2005 COLONOSCOPY FLX DX W/COLLJ SPEC WHEN PFRMD 07/06/2019 adenomatous polyps, repeat in 3 years ESOPHAGOGASTRODUODENOSCOPY TRANSORAL DIAGNOSTIC 07/06/2019 [facility], repeat in 3 years PACEMAKER LEAD INSERTION/REVISION/REMOVAL Left 03/29/2024 [employer] system; RV lead extracted and replaced with new RV lead, pacemaker generator changed; old RA lead still in use with excellent function; MRI conditional system; [facility] Dr. Zapien SURG TX ANAL FISTULA INTERSPHINCTERIC 09/01/2008 anterior fistula FAMILY HISTORY Problem Relation Age of Onset Colon Cancer Mother 80 Hypertension Mother Breast Cancer Sister Breast Cancer Sister Social History Tobacco Use Smoking status: Every Day Current packs/day: 1.00 Average packs/day: 1 pack/day for 50.2 years (50.2 ttl pk-yrs) Types: Cigarettes Start date: 07/20/1974 Smokeless tobacco: Never Vaping Use Vaping status: Never Used Substance Use Topics Alcohol use: Yes Comment: a few times a year Drug use: No ALLERGIES: ALLERGIES Allergen Reactions Morphine Other: See Comments personality change Percocet [Oxycodone* GI Upset CURRENT OUTPATIENT MEDICATIONS: gabapentin (NEURONTIN) 400 mg capsule Take 400 mg by mouth two times a day. ANORO ELLIPTA 62.5-25 mcg/actuation inhaler Inhale 1 Puff as instructed once daily. omeprazole (PRILOSEC) 20 mg capsule Take 1 capsule by mouth once daily. pravastatin sodium (PRAVASTATIN ORAL) Take 1 tablet by mouth daily at bedtime. (Patient not taking:Reported on 10/12/2024) REVIEW OF SYSTEMS: GENERAL: No fever, night sweats, weight loss or malaise. All other reviewed and negative other than HPI. PHYSICAL EXAMINATION: VITAL SIGNS: BP 137/78 Pulse 90 Temp (Src) 98.5 (Temporal) Ht 5' 1.5 (1.56m) Wt 198 lb (89.8kg) SpO2 96% BMI 36.81 kg/(m^2). GENERAL APPEARANCE: Well appearing, in no acute distress, alert and oriented x3, well-hydrated, well nourished. I spent a total of 60 minutes on the date of the service which included preparing to see the patient, [id number] patient care, completing clinical documentation, obtaining and/or reviewing separately obtained history, counseling and educating the patient/family/caregiver, ordering medications, emilie ts, or procedures, independently interpreting results (not separately reported), communicating results to the patient/family/caregiver, and care coordination (not separately reported). Electronically Signed: Kemal Obregon MD October 12, 2024 9:34 AM documented in this encounterOhio[facility]02-21-2025 Telephone encounter Note * Telephone Encounter - Laura Myers - 09/09/2024 2:12 PM EST Scheduled with patient 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 Thursday if possible per nurse. Sheri Tamez documented in this encounterOhiohealth 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 Thursday if possible per nurse. Sheri Tamez [facility]09-10-2024 Telephone encounter Note* Telephone Encounter - Zia Zapien MD - 03/29/2024 1:27 PM EDT [facility] ([facility] Mr. Estrada needs an appointment with a Kassidy Farnsworth of [facility] in 7 - 10 days for wound check and Aquacel dressing after pacemaker surgical procedure today. He will be resuming his follow up with [facility]. Kemal, please make sure to contact Kassidy Farnsworth to let her know to schedule the wound check there in [place]. Zia Zapien MD March 29, 2024 1:27 PM [facility]09-10-2024 Miscellaneous Notes* Telephone Encounter - Zia Zapien MD - 03/29/2024 1:27 PM EDT [facility] ([facility] Mr. Estrada needs an appointment with a Kassidy Farnsworth of [facility] in 7 - 10 days for wound check and Aquacel dressing after pacemaker surgical procedure today. He will be resuming his follow up with [facility]. Kemal, please make sure to contact Kassidy Farnsworth to let her know to schedule the wound check there in [place]. Zia Zapien MD March 29, 2024 1:27 PM documented in this encounterOhiohealth [facility]08-30-2024 Telephone encounter Note * Telephone Encounter - Melly Morley RN - 03/18/2024 2:56 PM EDT Pt's name has been added to [facility] procedure board. Melly Morley RN [facility]08-30-2024 Miscellaneous Notes* Telephone Encounter - Melly Morley RN - 03/18/2024 2:56 PM EDT Pt's name has been added to [facility] procedure board. Melly Morley RN * Telephone Encounter - Meagan Diego - 03/18/2024 2:24 PM EDT Patient is scheduled for an Extraction on 03/[address] Zapien. The hospital will call the day before between 2-5pm with your arrival time. You should not eat or drink after midnight the day before the procedure. You will need a driver trainee when released from the hospital and you will stay overnight for observation. You should continue to take medications as prescribed the morning of the procedure with just a sip of water unless otherwise instructed. H&P morning of Spoke with Bill Agrawal Sean on March 18, 2024. Informed of instructions as stated above. Patient verbalized understanding. Meagan Diego documented in this encounterOhio[facility] Telephone encounter Note * Telephone Encounter - Meagan Diego - 03/18/2024 2:24 PM EDT Patient is scheduled for an Extraction on 03/[address] Zapien. The hospital will call the day before between 2-5pm with your arrival time. You should not eat or drink after midnight the day before the procedure. You will need a driver trainee when released from the hospital and you will stay overnight for observation. You should continue to take medications as prescribed the morning of the procedure with just a sip of water unless otherwise instructed. H&P morning of Spoke with Bill Agrawal Sean on March 18, 2024. Informed of instructions as stated above. Patient verbalized understanding. Meagan Diego [facility]08-02-[facility]24 History of Present illness Narrative* Zia Zapien MD - 02/19/2024 3:20 PM EDT PRIMARY CARE PHYSICIAN: Josef Garcia MD [address] [facility] [address] [place] [address] REFERRING PHYSICIAN: Lorraine Rubio [address] [facility] [address] [place] [id number] Patient Care Team: Josef Garcia Chi as PCP - General (Gerontology) Group, [facility] as Specialty [facility] (Cardiology) Lorraine Rubio MD as Specialty Silverer (Cardiology) CHIEF COMPLAINT: Evaluation of pacemaker HISTORY OF PRESENT ILLNESS: Mr. Estrada is a 63 year old male who presents today for evaluation of pacemaker system malfunction. He has a long history, at least 15 years, of sudden loss of consciousness. He states he was evaluated extensively by multiple physicians including at [facility]. He does not recall the diagnosis but mentioned something sensitive in the neck --- available records from [facility] mention carotid sinus hypersensitivity. Other medical records indicate sinus node dysfunction. A pacemaker wasimplanted here at [facility] by Dr. Gant in 2012. Those records are in an old electronic medical record, will need to access those records to review. He states the pacemaker implant procedureand recovery were not good experiences, he recalls having a lot of pain postoperatively and being awake too much during the procedure. He thinks the passing out episodes became less frequent after the pacemaker, but did not resolve. He recalls in the past year or two he has had more frequent episodes of going out or falling asleep even while seated driving a car. The pacemaker system is showing abnormal function although I have limited medical records from [facility] and [facility]. It seems the right ventricular (RV) lead is showing electrical noise, reproducible witharm maneuvers, and abnormal impedance values. He is referred for consideration of pacemaker system revision. He is otherwise not having issues from cardiac standpoint such as chest pain, shortness ofbreath, orthopnea, palpitations, PND. He reports no problems [facility]. I have confirmed and edited as necessary, the PFSH and ROS obtained by others. PAST MEDICAL HISTORY No date: Abdominal pain, left lower quadrant No date: Arrhythmia No date: Breakdown (mechanical) of cardiac electrode, initial encounter No date: Carotid sinus hypersensitivity No date: COPD (chronic obstructive pulmonary disease) (HCC) No date: Diarrhea No date: Diverticulosis of colon (without mention of hemorrhage) No date: GERD (gastroesophageal reflux disease) No date: Kidney stones No date: Other specified heart block 02/16/2024: Presence of cardiac pacemaker Comment: [employer] dual-chamber pacemaker system implant; 07/15/2013 No date: Restless leg syndrome 02/16/2024: Sick sinus syndrome (HCC) 02/16/2024: Sinus arrest No date: Syncope and collapse PAST SURGICAL HISTORY : ANESTHESIA HERNIA REPAIR LOWER ABDOMEN NOS Comment: Umbilical hernia 2007: ANTERIOR INTERBODY FUSION, CERVICAL Comment: C4-C5 07/15/2013: BASIC PACEMAKER DUAL CHAMBER; Left Comment: [employer] dual-chamber pacemaker system implant; [facility], Dr. Gant 2008: CHOLECYSTECTOMY 08/20/2005: COLONOSCOPY FLX DX W/COLLJ SPEC WHEN PFRMD 07/06/2019: COLONOSCOPY FLX DX W/COLLJ SPEC WHEN PFRMD Comment: adenomatous polyps, repeat in 3 years 07/06/2019: ESOPHAGOGASTRODUODENOSCOPY TRANSORAL DIAGNOSTIC Comment: [facility], repeat in 3 years 09/01/2008: SURG TX ANAL FISTULA INTERSPHINCTERIC Comment: anterior fistula SOCIAL HISTORY Social History Tobacco Use Smoking status: Every Day Packs/day: 1.00 Years: 40.00 Additional pack years: 0.00 Total pack years: 40.00 Types: Cigarettes Start date: 07/20/1974 Smokeless tobacco: Never Vaping Use Vaping Use: Never used Substance Use Topics Alcohol use: Yes Comment: a few times a year Drug use: No FAMILY HISTORY Problem Relation Age of Onset Colon Cancer Mother 80 Hypertension Mother Breast Cancer Sister ALLERGIES: ALLERGIES Allergen Reactions Morphine Other: See Comments personality change Percocet [Oxycodone* GI Upset MEDICATIONS: pravastatin sodium (PRAVASTATIN ORAL) Take 1 tablet by mouth daily at bedtime. ANORO ELLIPTA 62.5-25 mcg/actuation inhaler Inhale 1 Puff as instructed once daily. omeprazole (PRILOSEC) 20 mg capsule Take 1 capsule by mouth once daily. gabapentin (NEURONTIN) 300 mg capsule Take 300 mg by mouth three times daily. REVIEW OF SYSTEMS: Review of Systems Constitutional: Positive for malaise/fatigue. Negative for chills, fever and weight loss. Respiratory: Negative for cough, hemoptysis, sputum production and shortness of breath. Cardiovascular: Negative for chest pain, palpitations, orthopnea, claudication, leg swelling and PND. Gastrointestinal: Negative for abdominal pain, nausea and vomiting. Musculoskeletal: Positive for back pain. Skin: Negative for rash. Neurological: Positive for dizziness and loss of consciousness. Negative for focal weakness and seizures. PHYSICAL EXAMINATION: BP 119/80 Pulse 84 Resp 16 Ht 5' 2 (1.58m) Wt 205 lb (93.0kg) SpO2 96% BMI 37.49 kg/(m^2). Physical Exam Vitals reviewed. Constitutional: General: He is not in acute distress. Appearance: Normal appearance. He is obese. HENT: Head: Normocephalic and atraumatic. Cardiovascular: Rate and Rhythm: Normal rate and regular rhythm. Heart sounds: Normal heart sounds, S1 normal and S2 normal. No murmur heard. No friction rub. Comments: pacemaker site left upper chest without erythema, warmth, tenderness, swelling, drainage or skin erosion Pulmonary: Effort: Pulmonary effort is normal. No respiratory distress. Breath sounds: Normal breath sounds. No wheezing, rhonchi or rales. Musculoskeletal: Cervical back: Neck supple. Skin: General: Skin is warm and dry. Neurological: General: No focal deficit present. Mental Status: He is alert and oriented to person, place, and time. Psychiatric: Mood and Affect: Mood normal. Behavior: Behavior normal. Thought Content: Thought content normal. CARDIOVASCULAR MEDICINE TESTING: Electrocardiogram: Sinus rhythm 78 bpm; normal conduction intervals (NE 120 ms, QRS 100 ms); QTc 401 ms; inappropriate ventricular pacing output noted after cahto QRS, apparently due to ventricular undersensing (timing corresponds to pacemaker programmed sensed AV delay of 250 ms) Device Check: see [employer] scanned documents for the [facility] report I have personally reviewed the Electrocardiogram and Device Check. 1. Sick sinus syndrome (HCC) - ICD9: 427.81, ICD10: I49.5 (primary diagnosis) 2. Sinus arrest - ICD9: 426.6, ICD10: I45.5 3. Carotid sinus hypersensitivity - ICD9: 337.01, ICD10: G90.01 4. Presence of cardiac pacemaker - ICD9: V45.01, ICD10: Z95.0 5. Malfunction of electrode lead of cardiac pacemaker - ICD9: 996.01, ICD10: T82.198A IMPRESSION: Mr. Estrada has a pacemaker system that was implanted in 2012, it seems for carotid sinus hypersensitivity or perhaps sinus node dysfunction. The RV lead is showing malfunction. Clearly not sensing appropriately today by EKG in the office. The pacemaker system needs to be revised, with replacement ofat least the RV lead if not also the RA lead. The pacemaker generator is getting close to elective replacement indicator as well. Pacemaker system extraction with reimplant of a new dual-chamber pacemaker system is advised. This is preferable to placing new leads and abandoning the old leads. I hada detailed discussion with Mr. Estrada regarding my evaluation and recommendations. After our discussi on, Mr. Estrada expressed his understanding and I answered all his questions to his apparent satisfaction. He agrees to proceed as outlined. INFORMED CONSENT The risks, benefits and anticipated outcomes of the procedure, the risks and benefits of the alternatives to the procedure and the roles and tasks of the personnel to be involved were discussed with the patient. Consent for the procedure and agreement to proceed has been obtained. I verify that I personally obtained the consent. PLAN AND RECOMMENDATIONS: Schedule pacemaker system extraction and reimplant of new pacemaker system My office will contact Mr. Estrada to schedule the procedure. Zia Zapien MD 02/19/2024 Medical Decision Making: Problems: Moderate: 1+ chronic illnesses with change and New problem with uncertain prognosis Data: Unique source(s) for external note(s) reviewed: 3+ Unique test result(s) reviewed: 3+ Unique test(s) ordered: 1 Risk: Moderate: Moderate risk from testing/treatment and Decision on minor surgery w/ risk factors Medical Decision Making Level: 4 - Moderate documented in this encounterOhiohealth [facility]08-02-2024 Nurse Note* Leigh Ann Crow MA - 02/19/2024 3:18 PM EDT Patient has no cardiac complaints today. Leigh Ann Crow CMA [facility]08-02-[facility]24 Nurse Note* Leigh Ann Crow MA - 02/19/2024 3:18 PM EDT Patient has no cardiac complaints today. Leigh Ann Crow CMA documented in this encounterOhiohealth [facility]12-08-2023 Hospital Discharge instructions Patient Education 06/26/2023 14:30:23 Cystoscopy Cystoscopy Cystoscopy is a procedure that is used to help diagnose and sometimes treat conditions that affect the lower urinary tract. The lower urinary tract includes the bladder and the urethra. The urethra is the tube that drains urine from the bladder. Cystoscopy is done using a thin, tube-shaped instrument with a light and camera at the end (cystoscope). The cystoscope may be hard or flexible, depending on the goal of the procedure. The cystoscope is inserted through the urethra, into the bladder. Cystoscopy may be recommended if you have: Urinary tract infections that keep coming back. Blood in the urine (hematuria). An inability to control when you urinate (urinary incontinence) or an overactive bladder. Unusual cells found in a urine sample. A blockage in the urethra, such as a urinary stone. Painful urination. An abnormality in the bladder found during an intravenous pyelogram (IVP) or CT scan. Cystoscopy may also be done to remove a sample of tissue to be examined under a microscope (biopsy). Tell a health care provider about: Any allergies you have. All medicines you are taking, including vitamins, herbs, eye drops, creams, and dxfp-txl-pulbxho medicines. Any problems you or family members have had with anesthetic medicines. Any blood disorders you have. Any surgeries you have had. Any medical conditions you have. Whether you are or may be . What are the risks? Generally, this is a safe procedure. However, problems may occur, including: Infection. Bleeding. Allergic reactions to medicines. Damage to other structures or organs. What happens before the procedure? Ask your health care provider about: ?Changing or stopping your regular medicines. This is especially important if you are taking diabetes medicines or blood thinners. ?Taking medicines such as aspirin and ibuprofen. These medicines can thin your blood. Do not take these medicines unless your health care provider tells you to take them. ?Taking yzny-cxl-ebcdvre medicines, vitamins, herbs, and supplements. Follow instructions from your health care provider about eating or drinking restrictions. Ask your health care provider what steps will be taken to help prevent infection. These may include: ?Washing skin with a germ-killing soap. ?Taking antibiotic medicine. You may have an exam or testing, such as: ? X-rays of the bladder, urethra, or kidneys. ?Urine tests to check for signs of infection. Plan to have someone take you home from the hospital or clinic. What happens during the procedure? You will be given one or more of the following: ?A medicine to help you relax (sedative). ?A medicine to numb the area (local anesthetic). The area around the opening of your urethra will be cleaned. The cystoscope will be passed through your urethra into your bladder. Germ-free (sterile) fluid will flow through the cystoscope to fill your bladder. The fluid will stretch your bladder so that your health care provider can clearly examine your bladder connolly. Your doctor will look at the urethra and bladder. Your doctor may take a biopsy or remove stones. The cystoscope will be removed, and your bladder will be emptied. The procedure may vary among health care providers and hospitals. What can I expect after the procedure? After the procedure, it is common to have: Some soreness or pain in your abdomen and urethra. Urinary symptoms. These include: ?Mild pain or burning when you urinate. Pain should stop within a few minutes after you urinate. This may last for up to 1 week. ?A small amount of blood in your urine for several days. ?Feeling like you need to urinate but producing only a small amount of urine. Follow these instructions at home: Medicines Take nfvc-ilt-kjyuntz and prescription medicines only as told by your health care provider. If you were prescribed an antibiotic medicine, take it as told by your health care provider. Do notstop taking the antibiotic even if you start to feel better. General instructions Return to your normal activities as told by your health care provider. Ask your health care provider what activities are safe for you. Do not drive for 24 hours if you were given a sedative during your procedure. Watch for any blood in your urine. If the amount of blood in your urine increases, call your healthcare provider. Follow instructions from your health care provider about eating or drinking restrictions. If a tissue sample was removed for testing (biopsy) during your procedure, it is up to you to get your test results. Ask your health care provider, or the department that is doing the test, when yourresults will be ready. Drink enough fluid to keep your urine pale yellow. Keep all follow-up visits as told by your health care provider. This is important. Contact a health care provider if you: Have pain that gets worse or does not get better with medicine, especially pain when you urinate. Have trouble urinating. Have more blood in your urine. Get help right away if you: Have blood clots in your urine. Have abdominal pain. Have a fever or chills. Are unable to urinate. Summary Cystoscopy is a procedure that is used to help diagnose and sometimes treat conditions that affect the lower urinary tract. Cystoscopy is done using a thin, tube-shaped instrument with a light and camera at the end. After the procedure, it is common to have some soreness or pain in your abdomen and urethra. Watch for any blood in your urine. If the amount of blood in your urine increases, call your healthcare provider. If you were prescribed an antibiotic medicine, take it as told by your health care provider. Do notstop taking the antibiotic even if you start to feel better. This information is not intended to replace advice given to you by your health care provider. Make sure you discuss any questions you have with your health care provider. Document Released: 07/03/2001 Document Revised: 06/28/2019 Document Reviewed: 06/28/2019 [employer] Patient Education 2020 [employer]. 06/26/2023 14:30:07 General Anesthesia, Adult, Care After General Anesthesia, Adult, Care After This sheet gives you information about how to care for yourself after your procedure. Your health care provider may also give you more specific instructions. If you have problems or questions, contact your health care provider. What can I expect after the procedure? After the procedure, the following side effects are common: Pain or discomfort at the IV site. Nausea. Vomiting. Sore throat. Trouble concentrating. Feeling cold or chills. Weak or tired. Sleepiness and fatigue. Soreness and body aches. These side effects can affect parts of the body that were not involved in surgery. Follow these instructions at home: For at least 24 hours after the procedure: Have a responsible adult stay with you. It is important to have someone help care for you until youare awake and alert. Rest as needed. Do not: ?Participate in activities in which you could fall or become injured. ?Drive. ?Use heavy machinery. ?Drink alcohol. ?Take sleeping pills or medicines that cause drowsiness. ?Make important decisions or sign legal documents. ?Take care of children on your own. Eating and drinking Follow any instructions from your health care provider about eating or drinking restrictions. When you feel hungry, start by eating small amounts of foods that are soft and easy to digest (bland), such as toast. Gradually return to your regular diet. Drink enough fluid to keep your urine pale yellow. If you vomit, rehydrate by drinking water, juice, or clear broth. General instructions If you have sleep apnea, surgery and certain medicines can increase your risk for breathing problems. Follow instructions from your health care provider about wearing your sleep device: ?Anytime you are sleeping, including during daytime naps. ?While taking prescription pain medicines, sleeping medicines, or medicines that make you drowsy. Return to your normal activities as told by your health care provider. Ask your health care provider what activities are safe for you. Take wwnn-tqr-dqbznky and prescription medicines only as told by your health care provider. If you smoke, do not smoke without supervision. Keep all follow-up visits as told by your health care provider. This is important. Contact a health care provider if: You have nausea or vomiting that does not get better with medicine. You cannot eat or drink without vomiting. You have pain that does not get better with medicine. You are unable to pass urine. You develop a skin rash. You have a fever. You have redness around your IV site that gets worse. Get help right away if: You have difficulty breathing. You have chest pain. You have blood in your urine or stool, or you vomit blood. Summary After the procedure, it is common to have a sore throat or nausea. It is also common to feel tired. Have a responsible adult stay with you for the first 24 hours after general anesthesia. It is important to have someone help care for you until you are awake and alert. When you feel hungry, start by eating small amounts of foods that are soft and easy to digest (bland), such as toast. Gradually return to your regular diet. Drink enough fluid to keep your urine pale yellow. Return to your normal activities as told by your health care provider. Ask your health care provider what activities are safe for you. This information is not intended to replace advice given to you by your health care provider. Make sure you discuss any questions you have with your health care provider. Document Released: 10/12/2001 Document Revised: 07/09/2018 Document Reviewed: 02/19/2018 [employer] Patient Education 2020 [employer]. Follow Up Care 06/24/2023 07:49:28 With:ARACELI MONTES MD, Topic Address: [address] [place] [phone] When: Unknown With:ARACELI MONTES MD, Topic Address: [address] [place] [phone] When: Unknown [facility] 12-08-2023 Summary of episode note Discharge Instructions Thank you for allowing [facility] to assist you with your healthcare needs. The following is importantdischarge information regarding your hospital visit. Your Care Team CARLOS GARCIA MD Your Diagnosis Stone deaf Stone in kidney What to do next Follow Up Appointments Follow Up with ARACELI MONTES MD, [facility] When Where: [address] [phone] The Following Activity and Diet Have Been Ordered for You Discharge Activity - Ordered -- Follow the post-operative/post-procedure activity instructions provided by your physician's office., 06/26/23 14:15:00 EST Discharge Driving Restrictions - Ordered -- No driving until pain-free, 06/26/23 14:15:00 EST Discharge Return to Work, School, or Sports (Discharge Return to status) - Ordered -- May return to: work, 06/26/23 14:15:00 EST Discharge Diet - Ordered -- Follow the post-operative/post-procedure diet instructions provided by your physician's office.,06/26/23 14:15:00 EST Allergies morphine (angry) Medications Please ask your primary doctor or pharmacist before taking any other medication not listed, including over the counter drugs, herbal medications, vitamins and or supplements as they may interact withyour home medications. What How Much When Why Instructions Last Dose New ciprofloxacin (Cipro 500 mg oral tablet) 1 tab(s) by mouth Every 12 hours Duration: 5 Days Pickup at [facility] New oxyCODONE (oxyCODONE 5 mg oral tablet ( IMMEDIATE release )) 1 tab(s) by mouth Every 6 hours as needed for for pain Stone deaf Stone in kidney Duration: 7 Days Pickup at [facility] New phenazopyridine (Pyridium 100 mg oral tablet) 1 tab(s) by mouth Three (3) times a day Duration: 3 Days Pickup at [facility] New tamsulosin (Flomax 0.4 mg oral capsule) 1 cap by mouth Once a day Pickup at [facility] New tamsulosin (Flomax 0.4 mg oral capsule) 1 cap by mouth Once a day Pickup at [facility] Unchanged albuterol (Albuterol (Eqv-Proventil HFA) 90 mcg/ inh inhalation aerosol) 2 puff(s) by inhalation Four (4) times a day as needed for Shortness of breath or wheezing Unchanged gabapentin (gabapentin 400 mg oral capsule) 1 cap by mouth Two (2) times a day Unchanged omeprazole (omeprazole 20 mg oral delayed release capsule) 1 cap by mouth Once a day Pharmacy Information [facility]: [address] [place], [place] [phone] Please take this list to your next doctor s visit. Bring all medications you take, including over the counter medications, herbals and other supplements with you to your doctor s visit. Patients and families are reminded to discard old lists and to update any records with all medication providers or retail pharmacies. Education Materials Cystoscopy Cystoscopy is a procedure that is used to help diagnose and sometimes treat conditions that affect the lower urinary tract. The lower urinary tract includes the bladder and the urethra. The urethra is the tube that drains urine from the bladder. Cystoscopy is done using a thin, tube-shaped instrument with a light and camera at the end (cystoscope). The cystoscope may be hard or flexible, depending on the goal of the procedure. The cystoscope is inserted through the urethra, into the bladder. Cystoscopy may be recommended if you have: Urinary tract infections that keep coming back. Blood in the urine (hematuria). An inability to control when you urinate (urinary incontinence) or an overactive bladder. Unusual cells found in a urine sample. A blockage in the urethra, such as a urinary stone. Painful urination. An abnormality in the bladder found during an intravenous pyelogram (IVP) or CT scan. Cystoscopy may also be done to remove a sample of tissue to be examined under a microscope (biopsy). Tell a health care provider about: Any allergies you have. All medicines you are taking, including vitamins, herbs, eye drops, creams, and eujr-obt-fklbwxc medicines. Any problems you or family members have had with anesthetic medicines. Any blood disorders you have. Any surgeries you have had. Any medical conditions you have. Whether you are or may be . What are the risks? Generally, this is a safe procedure. However, problems may occur, including: Infection. Bleeding. Allergic reactions to medicines. Damage to other structures or organs. What happens before the procedure? Ask your health care provider about: ? Changing or stopping your regular medicines. This is especially important if you are taking diabetes medicines or blood thinners. ? Taking medicines such as aspirin and ibuprofen. These medicines can thin your blood. Do not take these medicines unless your health care provider tells you to take them. ? Taking zagi-yjo-bbnhasz medicines, vitamins, herbs, and supplements. Follow instructions from your health care provider about eating or drinking restrictions. Ask your health care provider what steps will be taken to help prevent infection. These may include: ? Washing skin with a germ-killing soap. ? Taking antibiotic medicine. You may have an exam or testing, such as: ? X-rays of the bladder, urethra, or kidneys. ? Urine tests to check for signs of infection. Plan to have someone take you home from the hospital or clinic. What happens during the procedure? You will be given one or more of the following: ? A medicine to help you relax (sedative). ? A medicine to numb the area (local anesthetic). The area around the opening of your urethra will be cleaned. The cystoscope will be passed through your urethra into your bladder. Germ-free (sterile) fluid will flow through the cystoscope to fill your bladder. The fluid will stretch your bladder so that your health care provider can clearly examine your bladder connolly. Your doctor will look at the urethra and bladder. Your doctor may take a biopsy or remove stones. The cystoscope will be removed, and your bladder will be emptied. The procedure may vary among health care providers and hospitals. What can I expect after the procedure? After the procedure, it is common to have: Some soreness or pain in your abdomen and urethra. Urinary symptoms. These include: ? Mild pain or burning when you urinate. Pain should stop within a few minutes after you urinate. This may last for up to 1 week. ? A small amount of blood in your urine for several days. ? Feeling like you need to urinate but producing only a small amount of urine. Follow these instructions at home: Medicines Take xnne-ais-okvjvjb and prescription medicines only as told by your health care provider. If you were prescribed an antibiotic medicine, take it as told by your health care provider. Do notstop taking the antibiotic even if you start to feel better. General instructions Return to your normal activities as told by your health care provider. Ask your health care provider what activities are safe for you. Do not drive for 24 hours if you were given a sedative during your procedure. Watch for any blood in your urine. If the amount of blood in your urine increases, call your healthcare provider. Follow instructions from your health care provider about eating or drinking restrictions. If a tissue sample was removed for testing (biopsy) during your procedure, it is up to you to get your test results. Ask your health care provider, or the department that is doing the test, when yourresults will be ready. Drink enough fluid to keep your urine pale yellow. Keep all follow-up visits as told by your health care provider. This is important. Contact a health care provider if you: Have pain that gets worse or does not get better with medicine, especially pain when you urinate. Have trouble urinating. Have more blood in your urine. Get help right away if you: Have blood clots in your urine. Have abdominal pain. Have a fever or chills. Are unable to urinate. Summary Cystoscopy is a procedure that is used to help diagnose and sometimes treat conditions that affect the lower urinary tract. Cystoscopy is done using a thin, tube-shaped instrument with a light and camera at the end. After the procedure, it is common to have some soreness or pain in your abdomen and urethra. Watch for any blood in your urine. If the amount of blood in your urine increases, call your healthcare provider. If you were prescribed an antibiotic medicine, take it as told by your health care provider. Do notstop taking the antibiotic even if you start to feel better. This information is not intended to replace advice given to you by your health care provider. Make sure you discuss any questions you have with your health care provider. Document Released: 07/03/2001 Document Revised: 06/28/2019 Document Reviewed: 06/28/2019 [employer] Patient Education 2020 [employer] General Anesthesia, Adult, Care After This sheet gives you information about how to care for yourself after your procedure. Your health care provider may also give you more specific instructions. If you have problems or questions, contact your health care provider. What can I expect after the procedure? After the procedure, the following side effects are common: Pain or discomfort at the IV site. Nausea. Vomiting. Sore throat. Trouble concentrating. Feeling cold or chills. Weak or tired. Sleepiness and fatigue. Soreness and body aches. These side effects can affect parts of the body that were not involved in surgery. Follow these instructions at home: For at least 24 hours after the procedure: Have a responsible adult stay with you. It is important to have someone help care for you until youare awake and alert. Rest as needed. Do not: ? Participate in activities in which you could fall or become injured. ? Drive. ? Use heavy machinery. ? Drink alcohol. ? Take sleeping pills or medicines that cause drowsiness. ? Make important decisions or sign legal documents. ? Take care of children on your own. Eating and drinking Follow any instructions from your health care provider about eating or drinking restrictions. When you feel hungry, start by eating small amounts of foods that are soft and easy to digest (bland), such as toast. Gradually return to your regular diet. Drink enough fluid to keep your urine pale yellow. If you vomit, rehydrate by drinking water, juice, or clear broth. General instructions If you have sleep apnea, surgery and certain medicines can increase your risk for breathing problems. Follow instructions from your health care provider about wearing your sleep device: ? Anytime you are sleeping, including during daytime naps. ? While taking prescription pain medicines, sleeping medicines, or medicines that make you drowsy. Return to your normal activities as told by your health care provider. Ask your health care provider what activities are safe for you. Take jymv-lzu-vufletx and prescription medicines only as told by your health care provider. If you smoke, do not smoke without supervision. Keep all follow-up visits as told by your health care provider. This is important. Contact a health care provider if: You have nausea or vomiting that does not get better with medicine. You cannot eat or drink without vomiting. You have pain that does not get better with medicine. You are unable to pass urine. You develop a skin rash. You have a fever. You have redness around your IV site that gets worse. Get help right away if: You have difficulty breathing. You have chest pain. You have blood in your urine or stool, or you vomit blood. Summary After the procedure, it is common to have a sore throat or nausea. It is also common to feel tired. Have a responsible adult stay with you for the first 24 hours after general anesthesia. It is important to have someone help care for you until you are awake and alert. When you feel hungry, start by eating small amounts of foods that are soft and easy to digest (bland), such as toast. Gradually return to your regular diet. Drink enough fluid to keep your urine pale yellow. Return to your normal activities as told by your health care provider. Ask your health care provider what activities are safe for you. This information is not intended to replace advice given to you by your health care provider. Make sure you discuss any questions you have with your health care provider. Document Released: 10/12/2001 Document Revised: 07/09/2018 Document Reviewed: 02/19/2018 [employer] Patient Education 2020 [employer]. Additional Information VACCINATE! IT SAVES LIVES! Members of the community who have not yet received the COVID-19 vaccine and would like to receive it can visit one of [facility] vaccine clinics. There are many vaccine clinic locations within the [facility]. For locations and available times, please visit https://gettheshot.coronavirus.[place].gov/. It is important to note that some COVID mobile vaccine clinics are held outdoors and may be canceled in rainy or stormy conditions. To learn more about pediatric vaccinations (ages 5-11), we invite you to visit the [facility] webpage. https://www.[employer]s.org/pages/8649-Doqpg-Cokqnjupvrb-Piwxeibypc-Syodl-Ycg stions.htmlTo learn more about the COVID-19 vaccine, we invite you to visit the CDC website for a list of frequently asked questions.https://www.cdc.gov/coronavirus/2019-ncov/vaccines/faq.html [facility] Patient Portal Access Instructions: Stay connected with your healthcare team and access your personal medical information anytime with the [facility] Patient Portal. Please follow the directions below to create your [facility] account: 1.Access the email account you provided upon registration to the hospital/physician office.2.Look for an invitation email from [facility].3.Open the email and access the invitation link: AcceptInvitation to [facility].4.Fill in the required aguilar to create your account. To access your account, visit [facility]. Click the blue button labeled Access Patient Portal and then log in with the username and password that you created in the steps above. You will be able to view your test results, lab results, a summary of your visits, upcoming appointments and more. There is also a convenient messaging option where you can send secure messages to your p rovider. In addition, you will have the ability to download any documents or summaries to your computer and/or send the information securely to a physician. Remember that your healthcare information is confidential, so carefully consider who you will allowto register on the [facility] Patient Portal for access to your information. You can also access the [facility] Patient Portal on the [facility] andi. Simply click on Patient Portal and then log into your account. If you would like to receive a full copy of your medical records, please contact the [facility] Medical Records Department by calling [phone], Thursday through Thursday between 8 a.m. and 4:30 p.m. HOW TO SAFELY DISPOSE OF PRESCRIPTION MEDICATIONS Please use one of the following methods to safely dispose of your unused medications. 1.Use a drug disposal kit: the drug disposal pouch allows you to safely discard your old and unuseddrugs. Ask your nurse to give you one when you are discharged.2.Visit a local take-back location: Many local pharmacies and police departments have programs that collect old and unwanted prescriptiondrugs. Call your local pharmacy or go to http://[employer].zuuka!/3U6Fg0t to find one close to you.3.Make use of household items: Use cat litter or old coffee grounds to dispose medications if other options arenot available. Mix your drugs with these household products, seal them in an airtight container andthrow it into the garbage. Call [facility]: [phone] to be sure your drugs can be disposed of in this way. Some medicines may require a different approach.4.Never flush your medications down the toilet. IF YOU HAVE BEEN PRESCRIBED AN OPIOID FOR PAIN If you have been prescribed an opioid (such as hydrocodone, oxycodone or morphine), it is critical to understand the possible side effects and risks of opioid pain medications. Even when taken as directed, opioids can have several side effects including: Tolerance, meaning you might need to take more of a medication for the same pain relief. Nausea, vomiting and/or constipation. Sleepiness, dizziness, dry mouth, confusion, depression or itching. Physical dependence, meaning you have withdrawal symptoms when a medication is stopped, can develop within a few days. KNOW YOUR RESPONSIBILITIES It is important to know exactly how much and how often to take the opioid pain medications you are prescribed. Never take opioids in higher amounts or more often than prescribed. Do not combine opioids with alcohol or other drugs that cause drowsiness, such as benzodiazepines, also known as benzos, including diazepam and alprazolam, muscle relaxants or sleep aids. Never sell or share prescription opioids. This is illegal. Store opioids in a secure place and out of reach of others (including children, family, friends and visitors). The last page of this document has been signed and retained as a CHART COPY. Signatures Patient Education Materials Cystoscopy General Anesthesia, Adult, Care After Medication Leaflets My discharge plan and instructions have been reviewed and explained to me and I,BILL ESTRADA understand my current condition and have read and understand these discharge instructions. I have receiveda written copy of the plan/instructions. If I have questions, I am aware that I should contact my do ctor. Patient/Display Decorator Signature: Date/Time: Relationship to Patient: Witness Name/Signature: Date/Time: [facility]12-08-2023 Anesthesiology Consult note Patient: BILL ESTRADA Age: 62 years Sex: Male : 1960 Associated Diagnoses: None Author: KAIN DALTON Preoperative Information Anesthesia history Patient's history: negative. Family's history: negative. Health Status Allergies: Allergic Reactions (Selected) Severity Not Documented Morphine- Angry., Allergies (1) ActiveReaction morphineangry Current medications: (Selected) Inpatient Medications Ordered NS 1000 mL: 75 mL/hr, Intravenous, Stop: 06/27/23 17:59:00 EST ceFAZolin: 2 gram(s), 200 mL/hr, IV Piggyback, PREOP pharm Prescriptions Prescribed Cipro 500 mg oral tablet: 500 mg, 1 tab(s), Oral, q12h, for 5 day(s), 10 tab(s), 0 Refill(s) Flomax 0.4 mg oral capsule: 0.4 mg, 1 cap(s), Oral, qDay, 30 cap(s), 0 Refill(s) Flomax 0.4 mg oral capsule: 0.4 mg, 1 cap(s), Oral, qDay, 30 cap(s), 0 Refill(s) Pyridium 100 mg oral tablet: 100 mg, 1 tab(s), Oral, TID, for 3 day(s), 9 tab(s), 0 Refill(s) oxyCODONE 5 mg oral tablet ( IMMEDIATE release ): 5 mg, 1 tab(s), Oral, q6h, for 7 day(s), PRN: forpain, 12 tab(s), 0 Refill(s) Documented Medications Documented Albuterol (Eqv-Proventil HFA) 90 mcg/inh inhalation aerosol: 2 puff(s), Inhalation, QID, PRN: Shortness of breath or wheezing, 0 Refill(s) gabapentin 400 mg oral capsule: 400 mg, 1 cap(s), Oral, BID, 120 cap(s), 0 Refill(s) omeprazole 20 mg oral delayed release capsule: 20 mg, 1 cap(s), Oral, qDay, 30 cap(s), 0 Refill(s), Medications (2) Active Scheduled: (1) ceFAZolin 2 gram(s), IV Piggyback, PREOP pharm Continuous: (1) NS (0.9% nacl) 1000 mL 1,000 mL, Intravenous, 75 mL/hr PRN: (0) Problem list: Active Problems (8) COPD (chronic obstructive pulmonary disease) GERD (gastroesophageal reflux disease) Kidney stone Osteoarthritis Pacemaker Sleep apnea Tobacco use Wheezing Histories Past Medical History: No active or resolved past medical history items have been selected or recorded. Family History: No family history items have been selected or recorded. Procedure history: Umbilical hernia ([id number]). Comments: 06/24/2023 11:00 EST - Treisch, Calli RN x2 Cervical discectomy ([id number]). Pacemaker catheter ([id number]). Cholecystectomy ([id number]). Social History Social & Psychosocial Habits Alcohol 06/26/2023 Use: Current Frequency: 1-2 times per year Substance Abuse 06/26/2023 Use: Never Tobacco 06/26/2023 Tobacco Use: 10 or more cigarettes (1/, Never (less than 100 in l Type: Cigarettes Tobacco use per day: 20 Number of years: 50 Home/Environment 06/26/2023 Living situation: Home/Independent Domestic Concerns None Primary Scanner Supervisor: Self Current Home Treatments CPAP Special Services and Community Resources None Guardian(s) Information: Ronel Marital Status of Patient if Patient Independent Adult: Nutrition/Health 06/26/2023 Type of diet: Regular Appetite Good Eating Difficulties None . Physical Examination Vital Signs 06/26/2023 13:11 EST Temperature Temporal Artery 36.6 DegC Apical Heart Rate 74 bpm Respiratory Rate 16 br/min Systolic Blood Pressure Non-Invasive 131 mmHg Diastolic Blood Pressure Non-Invasive 68 mmHg Vital Signs(last 24 hrs) Last Charted Resp Rate 16 br/min (JUN 26 13:11) CJK202 mmHg (JUN 26 13:11) DBP68 mmHg (JUN 26 13:11) Measurements from flowsheet : Measurements 06/26/2023 13:11 EST Height 157.5 cm Height in inches 62 inch(es) Admission Weight 93.2 kg Weight Lbs 205 lb Weight Method Stated [place] Body Weight 54.62 kg Admission Body Mass Index 37.57 m2 Pain assessment: Pain Assessment 06/26/2023 13:11 EST Primary Pain Location Lower back Primary Pain Laterality Bilateral Primary Pain Intensity 4 Primary Pain Quality Aching Primary Pain Nonverbal Response Appears restful Pain Scale Type 0-10 Pain scale . General: Alert and oriented. Airway: Normal temporomandibular joint mobility. Mallampati classification: II (soft palate, fauces, uvula visible). Dentition Evaluation: Dentures, lower, Dentures, upper. Respiratory: Lungs are clear to auscultation, Respirations are non-labored. Cardiovascular: Normal rate, Regular rhythm. Neurologic: Alert, Oriented. Review / Management Results review: No qualifying data available , Lab results 06/26/2023 13:30 EST SN - Preop - CTm Pt Ready for OR/Proced 06/26/2023 13:30 06/26/2023 13:26 EST Forearm Right 06/26/2023 20 gauge Peripheral IV Activity: Insert new site Peripheral IV Dressing Condition: Clean, Dry, Intact Peripheral IV Dressing Activity: Applied, Transparent dressing Peripheral IV Line Status/Patency: Continuous infusion, Good blood return Peripheral IV Site Condition: No complications Peripheral IV Equipment: Extension set, PRN Adaptor Peripheral IV Number of Attempts: 2 06/26/2023 13:25 EST Patient Information Note Pt to radiology for KUB. 06/26/2023 13:13 EST Sodium Chloride 0.9% Begin Bag 1,000 mL mL 06/26/2023 13:11 EST Height 157.5 cm Height in inches 62 inch(es) Admission Weight 93.2 kg Weight Lbs 205 lb Weight Method Stated [place] Body Weight 54.62 kg Admission Body Mass Index 37.57 m2 Temperature Temporal Artery 36.6 DegC Apical Heart Rate 74 bpm Respiratory Rate 16 br/min Systolic Blood Pressure Non-Invasive 131 mmHg Diastolic Blood Pressure Non-Invasive 68 mmHg Primary Pain Location Lower back Primary Pain Laterality Bilateral Primary Pain Intensity 4 Primary Pain Quality Aching Primary Pain Nonverbal Response Appears restful Pain Scale Type 0-10 Pain scale Monitor Alarms On and Limits Checked Nail Bed Color [place] Capillary Refill < 2 seconds Heart Sounds ICU S1S2 Heart Rhythm Regular Dorsalis Pedis Pulse, Left 2+ Normal Dorsalis Pedis Pulse, Right 2+ Normal Cardiac Rhythm Sinus rhythm Monitoring Lead II Respirations Unlabored Respiratory Pattern Regular Breath Sounds Auscultated Anterior and posterior All Lobes Breath Sounds Clear Cough Hacking, Loose Oxygen Therapy Room air Oxygen Saturation 95 % Abdomen Description Soft, Rounded Bowel Sounds All Quadrants Present Urinary Elimination Voiding with difficulties All Extremity Description [place] Skin Temperature Warm Temperature All Extremities Warm Skin Description [place], Dry Skin Integrity Intact Skin Moisture General Dry IV Present Present Neurological Symptoms Patient denies Extremity Movement Equal Characteristics of Speech Clear Level of Consciousness Alert Strength All Extremities Strong Tone All Extremities Normal Sensation All Extremities Intact Affect/Behavior Appropriate, Calm, Cooperative Orientation Oriented x 4 Allergies Yes Anesthesia Extension Set Applied Yes [employer] Founder On Yes Consent Form Signed Yes Patient Dressed In Hospital gown, No undergarments Pre-op Preparation Dentures, upper removed, Glasses removed, Jewelry removed CHG Preoperative Wash/Wipe Not done Preop Nasal Swab Not done CHG Skin Prep No History & Physical On Chart Yes [place] Motor (2) Moves 4 extremities voluntarily or on command [place] Respirations (2) Spontaneous respiration without support, RR > 10 [place] Blood Pressure (2) BP 20% above or below preanesthetic level [place] Pulse (2) Pulse 20% above or below preanesthetic level [place] Oxygen Saturation (2) 94% or more [place] Level of Consciousness (2) Fully awake [place] III Score 12 Belongings At Bedside CPAP, Dentures, upper, Glasses, Jacket, Necklace, Pants, Shirt, Shoes, Socks,Undergarments Positioning Repositions self Activity Status ADL Awake, Resting Sequential Compression Device bilateral knee high applied/on NPO Status Maintained, More than 8 hours Standard Safety ID band on, Allergy Band on, Call device within reach, Bed in low position, Wheels locked, Upper/Half-Length side-rails up, Non-Slip footwear Demonstrates Correct Call Light Use Yes Allergy Band on and Verified Yes Patient ID Band on and Verified Yes Implants Verified Yes Pacemaker/AICD Verified Yes Site Verified by Patient/Family Yes Anesthesia Consent Signed Yes Blood Consent Signed Yes Last Fluid Intake 06/25/2023 22:00 Last Food Intake 06/25/2023 22:00 Last Void 06/26/2023 12:40 06/26/2023 12:48 EST Designated Person #1 We May Share PHI RONEL ESTRADA [phone] Designated Person #1 Relationship Spouse Privacy Restrictions Requested None Status N/A Sensory Deficits None Diagnosed With Sleep Apnea Yes Advanced Directives No - refuses information Infectious Disease Symptoms Patient states no symptoms Infectious Disease Recent Exposure No Alcohol and Drug Use No Employee of Institutional Living No Health Care Employee No History of Exposure to TB No History of Positive Chest X-Ray for TB No History of Positive TB Skin Test No Homeless No Known Immunosuppression No Recent Immigrant No Resident of Institutional Living No Bloody Sputum No Fatigue No Fever No Loss of Appetite No Night Sweats No Persistent Cough > 3 Weeks No Weight Loss No Patient Aware Date/Time Of Surgery Yes Pre-Op Patient Education NPO after midnight, No smoking after midnight, No jewelry, Responsible Democrat, Aware of surgery location, Pre-op education done, Instructed to take ordered medications, SSI prevention handout given SN - Preprocedure Comments Spoke with patient, Verbalizes/Nonverbally indicates understanding, Other: gabapentin, omeprazole, bring inhaler and cpap Barriers to Learning None evident Teaching Method Explanation, Printed materials Preferred Spoken Language Malaysian Preferred Written Language Malaysian Teaching Evaluation Verbalizes/Nonverbally indicates understanding Safety Brochure Information Reviewed Yes [facility] Video Viewed No Information Given by Patient Patient's Current Physicians Patient's Current Physicians Discharge To, Anticipated Home independently Prev Test Positive/Diagnosis w/COVID-19 Yes Previous COVID-19 Positive 2019 Current Quarantine/Isolated any Illness No Any Contact with Sick Animals/Birds No Traveled Anywhere in Last 30 Days No Lost Weight Unintentionally Recently No Eat Poorly Due to Decreased Appetite No Total MST Score 0 N/A Personal Devices, Patient Valuables Dentures, lower, Dentures, upper, Glasses Anesthesia/Transfusions Prior anesthesia Admission Note-Nursing Same Day Patient History 06/26/2023 12:42 EST SN - Preop - CTm Pt in SDS Room 06/26/2023 12:40 . Assessment and Plan [place] [employer] Anesthesiologists (ASA) physical status classification: Class III. Anesthetic Preoperative Plan Anesthetic technique: General. Maintenance airway: Laryngeal mask airway. Postoperative pain management: Per surgeon. Risks discussed: nausea, vomiting, sore throat, hypotension, allergic reaction, serious complications. Informed consent: signed by patient. Digitally Signed by KAIN DALTON on 06/26/2023 01:41 PM [facility]12-08-2023 Note ORIGINAL EXAMINATION: ONE SUPINE XRAY VIEW(S) OF THE ABDOMEN 06/26/2023 1:31 pm COMPARISON: None. HISTORY: ORDERING SYSTEM PROVIDED HISTORY: Reason for Exam: calculus of ureter, right FINDINGS: The bowel gas pattern is within normal limits. No evidence of free intraperitoneal air or obstruction. No pathologic calcifications are identified. IMPRESSION: No acute intra-abdominal process. Interpreted by: Elroy Musa MD Preliminary Report By: Elroy Musa MD Electronically signed By Elroy Musa MD Dictated Date: 06/26/2023 1:41:43 PM Prelim Date: 06/26/2023 1:41:56 PM Sign Date: 06/26/2023 1:41:56 PM Ordering Provider[facility] Discharge summary Author Jayesh Reodica [facility] June 21, 2023 1:00pm Note Date/Time June 21, 2023 1 0:30am [facility] Medical Records Department [address] [place] [address] Emergency Department Summary 06/21/23 MR#: [id number] Acct: [id number] Name: BILL ESTRADA Rep #:[id number] : 1960 62 From: Jayesh Crystal MD PCP: Dr. Josef Garcia MD Status:REG E R Location: ED HPI History of Present Illness Chief Complaint: Abd Pain Narrative Narrative: 62-year-old male past medical history of previous cholecystectomy, coronary artery disease, presents with right-sided rib pain that he has had since 630 this morning. States that the pain awoke him from sleep. He has pain in his right ribs, but denies any trauma. No fevers or chills, no nausea or vomiting. He states he has had kidney stones but the pain is usually lower. He has pain worse with movement at times. No other symptoms. [facility] Medical History Acute right flank pain (~03/26/22) Allergies Ambulates with cane Arthritis Back pain Back problem Blackout Bone fracture Cardiology follow-up encounter COPD (chronic obstructive pulmonary disease) CPAP (continuous positive airway pressure) dependence Dermatofibroma of chest Easy bruising Gastric reflux GERD (gastroesophageal reflux disease) History of diverticulitis History of echocardiogram History of edema History of pacemaker History of pain when walking History of stress test Injury of head and neck Kidney stones Leg cramps Lumbar spondylosis Other acute postprocedural pain Presence of cardiac pacemaker Renal stones Restless leg syndrome Restless legs Shortness of breath on exertion Sick sinus syndrome Sinus arrest Sinus bradycardia Smoker Smoker Syncope Syncope and collapse Wears dentures Wears glasses Home Medications omeprazole 20 mg capsule,delayed release 20 mg PO DAILY 11/25/13 [History Last Taken 07/06/19 08:00] albuterol sulfate 90 mcg/actuation aerosol inhaler 2 puff inhalation Q4H PRN shortness of breath or wheezing 06/26/22 [History Last Taken Unknown] gabapentin 400 mg capsule 400 mg PO BID 06/26/22 [History Last Taken Unknown] hydrocodone-acetaminophen 5-325mg 5mg-325mg 1 tab PO Q6H PRN PRN Pain 3 days #12TABLETS 06/21/23 [Rx Last Taken Unknown] ketorolac 10 mg tablet 10 mg PO Q8H PRN pain 5 days #15 tabs 06/21/23 [Rx Last Taken Unknown] tamsulosin 0.4 mg capsule (Flomax) 0.4 mg PO DAILY #10 caps 06/21/23 [Rx Last Taken Unknown] Allergy/AdvReac Type Severity Reaction Status Date / Time morphine AdvReac MAKES ME Verified 06/21/23 09:38 MAD Family History Mother Colon cancer Sister Breast cancer Sister Breast cancer Other CVA (cerebral vascular accident) Surgical History H/O cervical spine surgery H/O inguinal hernia repair History of esophagogastroduodenoscopy (EGD) History of heart surgery Hx of cholecystectomy Hx of colonoscopy Social History household members: spouse, children and other details: grandchildren housing: house current occupational status: unemployed pets and animals: No Smoking Status: Current every day smoker tobacco type: cigarettes alcohol intake: current alcohol intake frequency: holidays/special occasions only substance use type: does not use caffeine: Yes Type: carbonated beverages Number of servings: 3 and coffee Number of servings: 1 what type of physical activity do you participate in: none seatbelt use: never do you feel safe at home: Yes additional social history: Does Take Ibuprofen As Needed Does Not Take Aspirin ROS ROS ED ROS Narrative Constitutional: No fever, no chills. HEENT: No sore throat. No neck pain. No loss of vision. No rhinorrhea. Cardiovascular: Right-sided rib and chest pain. No palpitations. No pedal edema. Respiratory: No cough, no shortness of breath. Abdominal: No abdominal pain. No nausea. No vomiting. Genitourinary: No dysuria. No hematuria. Positive right flank pain. Musculoskeletal: No myalgias. No arthralgias. Neurologic: No headaches. No dizziness. No lightheadedness. Skin: No rash. No change in color. Psychiatric: No depression. No anxiety. EXAM Physical Exam Narrative Exam Narrative: Afebrile. Vital signs noted. HEENT: Normocephalic. Atraumatic. PERRL, EOMI. Neck soft and supple. No pointtenderness or step off. Cardiovascular: Regular rate and rhythm. No murmurs, rubs, or gallops appreciated. Mild tenderness to palpation right-sided ribs, no crepitance. Respiratory: No tachypnea. Lungs clear to auscultation bilaterally. Gastrointestinal: Abdomen soft, nontender, with normoactive bowel sounds. No rebound or guarding. Negative Ruvalcaba sign. No CVA tenderness to percussion. Neurological: Awake. Alert. Nonfocal, nonlateralizing. Skin: No rash. Normal color. No pallor. Musculoskeletal: No pedal edema. Full range of motion extremities. Const Vital Signs: 06/21/23 09:38 Temperature 96.0 F L Temperature Source Temporal Pulse Rate 70 Respiratory Rate 20 H Blood Pressure 135/66 H Blood Pressure Mean 89 Pulse Ox 100 Oxygen Delivery Method Room Air MDM MDM MDM Narrative Medical decision making narrative: In the differential diagnosis is ureterolithiasis, I have low suspicion for cholelithiasis as examined cholecystectomy. He may also have pneumothorax or pneumonia, but these are not necessarily supported by his history and physical. Initially he was given Toradol for analgesia which controlled his pain. I reviewed his laboratory work and he has normal white count at 8.8, hemoglobin normal at 15.1, hematocrit 46.0, platelet count normal at 271. I reviewed his D-dimer as well and it is 0.61, but acceptable given the age cutoff and taking into account that he is 62 years of age, so I do not feel that CTA of the chest is indicated. Review of his electrolyte panel shows chloride elevated at 110 which I think is nonspecific, BUN normal at 16 with creatinine normal at 0.98. High-sensitivity troponin is 3. EKG obtained to help rule out coronary artery disease and ischemia which does show an atrial paced rhythm at [address] changes. No STEMI. Right-sided rib x-rays and 3 views interpreted by myself shows no evidence of pneumothorax, pneumonia, or acute rib fracture. I reviewed the radiology report which confirms my independent interpretation. With the suspicion of ureterolithiasis, I did obtain a CT of the abdomen pelvis without contrast which shows a 4 mm stone in the mid ureter with hydronephrosis. This is on the right side. I do feel that a lot of his pain may be referred pain. He was given a dose of Dilaudid 0.5 mg and ondansetron for additional analgesia. At this point in time, he states that he has an outpatient neurologist with whom to follow-up with at [place] because he had kidney stones in the past. He was also referred to Dr. Montes here in [place]. I reviewed his urinalysis and see no evidence of infection which I feel would require antibiotics. He was written prescriptions for Flomax, Toradol, and for 3 days of [place]. Return instructions to the emergency department were reviewed. I do not feel he requires admission at this time as upon repeat examination he is resting comfortably. Disposition is discharged home in stable condition. History & Record Review Discussion w/independent historian: Patient Additional record(s) reviewed:: Prior ED visit and Prior labs Lab Data Attestation: I reviewed the patient's lab results. Labs: Laboratory Results - last 24 hr 06/21/23 06/21/23 10:00 11:42 WBC 8.8 RBC 4.94 Hgb 15.1 Hct 46.0 MCV 93.1 MCH 30.6 MCHC 32.8 RDW Std Deviation 46.4 H RDW Coeff of Reinier 13.5 Plt Count 271 MPV 9.5 Immature Gran % (Auto) 0.500 Neut % (Auto) 51.8 Lymph % (Auto) 35.4 Newton % (Auto) 10.3 H Eos % (Auto) 1.9 Baso % (Auto) 0.1 Absolute Neuts (auto) 4.6 Absolute Lymphs (auto) 3.13 Nucleated RBC % 0 D-Dimer Quant (PE/DVT) 0.61 H* Sodium 140 Potassium 3.9 Chloride 110 H Carbon Dioxide 25.0 Anion Gap 5 BUN 16 Creatinine 0.98 Est GFR (MDRD) Af Amer 99 Est GFR (MDRD) Non-Af 82 BUN/Creatinine Ratio 16.3 Glucose 143 H Calcium 9.2 Troponin I High Sens 3 Urine Color Yellow Urine Clarity Clear Urine pH 5.0 Ur Specific [place] 1.030 Urine Protein 30 H Urine Glucose (UA) Normal Urine Ketones 5 H Urine Occult Blood 50 H Urine Nitrite Negative Urine Bilirubin 1 H Urine Urobilinogen 1 H Ur Leukocyte Esterase 25 H Urine RBC 0-5 SEEN Urine WBC 0-5 SEEN Ur Squamous Epith Cells 0-5 SEEN Urine Bacteria 1+ Urine Mucus 0 SEEN Radiography Diagnostic Testing: Clinical Impression(s) from Imaging Studies Abdomen/Pelvis CT 06/21/23 10:30 IMPRESSION: 1. Mild right hydronephrosis due to 4 mm stone in the mid right ureter. 2. Small bilateral nonobstructing renal stones. 3. Diffuse thickening of the colon likely due to underdistention. Colitis is less likely but possible. 4. Small hiatal hernia. 5. Stable left adrenal adenoma unchanged. Electronically Signed: Nasim Cook MD at 11:34 EST , Ribs w/Chest X-Ray 06/21/23 10:46 IMPRESSION: No evidence of displaced rib fracture. Electronically Signed: Nasim Cook MD at 11:12 EST , Discharge Plan Triage Chief Complaint: Abd Pain ED Provider: Jayesh Crystal Dx/Rx/DC Orders Clinical Impression: Acute flank pain, Hydronephrosis, Ureterolithiasis Instructions: ED Kidney Stone w/ Colic Prescriptions: New ketorolac 10 mg tablet 10 mg PO Q8H PRN (Reason: pain) 5 Days Qty: 15 0RF tamsulosin [Flomax] 0.4 mg capsule 0.4 mg PO DAILY Qty: 10 0RF hydrocodone-acetaminophen 5-325 mg tablet 1 tab PO Q6H PRN PRN (Reason: Pain) 3 Days Qty: 12 0RF No Action gabapentin 400 mg capsule 400 mg PO BID albuterol sulfate 90 mcg/actuation HFA aerosol inhaler 2 puff inhalation Q4H PRN (Reason: shortness of breath or wheezing) Patient Comments: INHALE 2 PUFFS BY MOUTH EVERY 4 HOURS NEEDED omeprazole 20 MG capsule 20 mg PO DAILY Primary Care Provider: Josef Garcia Chi Referrals: Araceli Montes MD [Med Staff - Active Staff] - 3-5 Days if not improving Josef Garcia Chi, MD [Primary Care Provider] - 3-5 Days if not improving Activity Restrictions/Additional Instructions: Follow-up with your urologist or Dr. Montes in the next 3 to 5 days. Return with fever, intractable pain, new or worsening symptoms. Disposition Disposition: Home, Self Care What to do if you have Problems For any increased pain, shortness of breath, bleeding, nausea or vomiting, chestpain, or any unexpected problems, contact your Primary Care Provider. Call [facility] ([phone]) or report to the closest Emergency Room. Call 911 if necessary. 06/21/23 1300 <Electronically signed by Jayesh Crystal MD> Cosigner Signature (if applicable): CC: Dr. Josef Garcia MD ~ Signed [facility] Work Phone: 1(511) 270-963012-03-2023 Hospital Discharge instructions Additional Instructions Follow-up with your urologist or Dr. Montes in the next 3 to 5 days. Return with fever, intractable pain, new or worsening symptoms.[facility] Work Phone: 1(813) 208-760105-12-[address] Linton [facility] November 28, 2022 11:49pm Note Date/Time November 28, 2022 9:42p m [facility] Medical Records Department [address] [place] [address] Emergency Department Summary 11/28/22 MR#: [id number] Acct: [id number] Name: BILL ESTRADA Rep #:[id number] : 1960 62 From: Bernardo Anthony PCP: Dr. Josef Garcia MD Status:REG E R Location: ED HPI History of Present Illness Chief Complaint: Shortness of Breath PFSH PFSH Medical History Allergies Ambulates with cane Arthritis Back pain Back problem Blackout Bone fracture Cardiology follow-up encounter COPD (chronic obstructive pulmonary disease) CPAP (continuous positive airway pressure) dependence Dermatofibroma of chest Easy bruising Gastric reflux GERD (gastroesophageal reflux disease) History of diverticulitis History of echocardiogram History of edema History of pacemaker History of pain when walking History of stress test Injury of head and neck Kidney stones Leg cramps Presence of cardiac pacemaker Restless legs Shortness of breath on exertion Sick sinus syndrome Sinus arrest Smoker Smoker Syncope Syncope and collapse Wears dentures Wears glasses Home Medications omeprazole 20 mg capsule,delayed release 20 mg PO DAILY 11/25/13 [History Last Taken 07/06/19 08:00] budesonide-formoterol HFA 160 mcg-4.5 mcg/actuation aerosol inhaler (Symbicort) 2 puff inhalation BID PRN Wheezing 07/04/20 [History Last Taken Unknown] bupropion HCl (smoking deter) 150 mg tablet,12 hr sustained-release(smoking deterrent) 150 mg PO BID 04/11/22 [History Last Taken Unknown] pramipexole 0.5 mg tablet 0.5 mg PO QHS 04/11/22 [History Last Taken Unknown] albuterol sulfate 90 mcg/actuation aerosol inhaler 2 puff inhalation Q4H PRN shortness of breath or wheezing 06/26/22 [History Last Taken Unknown] gabapentin 400 mg capsule 400 mg PO BID 06/26/22 [History Last Taken Unknown] Allergy/AdvReac Type Severity Reaction Status Date / Time morphine AdvReac MAKES ME Verified 11/28/22 21:23 MAD Family History Mother Colon cancer Sister Breast cancer Sister Breast cancer Other CVA (cerebral vascular accident) Surgical History H/O cervical spine surgery H/O inguinal hernia repair History of esophagogastroduodenoscopy (EGD) History of heart surgery Hx of cholecystectomy Hx of colonoscopy Social History household members: spouse, children and other details: grandchildren housing: house current occupational status: unemployed pets and animals: No Smoking Status: Current every day smoker tobacco type: cigarettes alcohol intake: current alcohol intake frequency: holidays/special occasions only substance use type: does not use caffeine: Yes Type: carbonated beverages Number of servings: 3 and coffee Number of servings: 1 what type of physical activity do you participate in: none seatbelt use: never do you feel safe at home: Yes additional social history: Does Take Ibuprofen As Needed Does Not Take Aspirin EXAM Physical Exam Const Vital Signs: 11/28/22 21:21 11/28/22 21:23 11/28/22 23:27 Temperature 98.1 F Temperature Source Temporal Pulse Rate 89 85 Respiratory Rate 16 18 Respiratory Effort Normal Non-Labored Respiratory Depth Normal Respiratory Pattern Tachypnea Blood Pressure 100/57 L 142/69 H Blood Pressure Mean 71 93 Pulse Ox 94 96 Oxygen Delivery Method Room Air Room Air Room Air [facility] [place]arr[place] Medical decision making narrative: HISTORY OF PRESENT ILLNESS: 62-year-old male here with shortness of breath. The patient states this began over the last 24 hours. He notes diffuse weakness. Denies chest pain but notesshortness of breath. Notes coughing yesterday. Notes feeling warm but denies fever. The patient denies recent surgery in the last 4 weeks or immobilization in the last 3 days, denies previous diagnosis of DVT or PE, hemoptysis, unilateral leg swelling or malignancy with treatment the last 6 months. No estrogen use noted. He denies lower extremity edema, orthopnea or paroxysmal nocturnal dyspnea. He endorses history of COPD but states he is never had any issues with it. He denies being vaccinated against COVID or flu REVIEW OF SYSTEMS: Pertinent positives: Shortness of breath, weakness, diarrhea, Pertinent negatives: Chest pain, syncope, focal weakness, abdominal pain PHYSICAL EXAM: Nursing triage notes reviewed, Vital signs reviewed Constitutional: please see [facility] HENT: MMM Eyes: Pupils equal round and reactive to light, Extraocular muscles intact Neck: No stridor, no JVD, full neck ROM Lungs: Clear to auscultation, No wheezing or rales. No increased work of breathing, no conversational dyspnea, no accessory muscle use, no nasal flaring. No respiratory distress noted Heart: Regular rate and rhythm, No murmurs, No rubs and No gallops, 2+ distal pulses (radial, femoral, posterior tibial) in all extremities Abdomen: Soft, there is no tenderness, rigidity, rebound or guarding, no obviousperitoneal signs, no palpable pulsatile abdominal masses, no auscultated abdominal bruit : No CVAT Extremities: No edema Neuro: No focal neurological deficits, cranial nerves II through XII intact, 5/5strength in all extremities. Intact sensation to light touch in all extremities,2+ reflexes bilateral patella tendons. Normal gait. No ataxia. Skin: No rash or lesions noted MEDICAL DECISION MAKING: Chief Complaint: Shortness of breath External records reviewed: Echocardiogram from 2013 shows ejection fraction of 65% MDM Narrative: The patient initially had soft blood pressures, otherwise he was hemodynamicallystable afebrile and saturating well on room air. No increased work of breathing, no focal lung findings, consolidation, wheezing or rales. He had no lower extremity edema or signs of volume overload. I considered the following differential diagnosis: Pneumonia, COPD exacerbation,ACS, arrhythmia, anemia, electrolyte abnormalities, COVID, flu, PE I considered PE as a potential etiology however the patient low risk Wells scoreand as such have a low suspicion for PE. I considered obtaining a CT of the chest however things unnecessary likely counterproductive at this time. CT scanlikely confers more risk than misdiagnosis given low risk Wells score and 1.3% risk of PE in this population. I obtained a broad lab and imaging work-up to further elucidate the etiology of the patient's complaints. EKG without evidence of arrhythmia or myocardial ischemia. Labs without evidence of myocardial ischemia, severe electrolyte abnormality, severe anemia, volume overload, COVID or flu. No clear life- limiting etiology could be ascertained. The patient's initial soft blood pressure improved without intervention. He wasambulated without evidence of hypoxia. No clear life-limiting etiology could beascertained. The patient may be suffering from a viral illness causing fatigue and shortness of breath. There is no signs of viral pneumonia on chest x-ray. Given the patient's unremarkable labs, images and stable vitals I think is appropriate for discharge home with close outpatient follow-up for further treatment and evaluation. I discussed the plan of care with the patient and and they agreed. Factors affecting care: History of sick sinus syndrome, GERD, syncope, status post cardiac pacemaker, Social determinants of health: Current everyday smoker History obtained from others: The patient's Shared decision making: I will have a discussion with the patient and or visitors regarding risk/benefits of further testing or admission. They will be made aware of of the risk/benefits inherent in this decision they will be given the opportunity to voice understanding. Consults: Trini Lab Data Attestation: I reviewed the patient's lab results. Lab results narrative: EKG with normal sinus rhythm, left axis deviation, normal intervals, no STEMI, no ischemic changes. Appears similar to prior EKG from April 2020 CBC without leukocytosis, severe anemia, no thrombocytopenia. BMP without evidence of significant electrolyte abnormalities, no anion gap, no acute kidney injury. Troponin is negative, no evidence of myocardial ischemia BNP within normal limits, this indicates no increased ventricular stretch, no volume overload, no increased transmural wall pressure COVID flu negative Labs: Laboratory Results - last 24 hr 11/28/22 11/28/22 11/28/22 22:13 22:13 22:13 WBC 9.7 RBC 4.96 Hgb 14.7 Hct 45.3 MCV 91.3 MCH 29.6 MCHC 32.5 RDW Std Deviation 48.7 H RDW Coeff of Reinier 14.5 Plt Count 240 MPV 9.0 Immature Gran % (Auto) 0.300 Neut % (Auto) 70.4 H Lymph % (Auto) 18.3 L [place] % (Auto) 9.8 Eos % (Auto) 1.1 Baso % (Auto) 0.1 Absolute Neuts (auto) 6.8 Absolute Lymphs (auto) 1.77 Nucleated RBC % 0 Sodium 138 Potassium 4.3 Chloride 103 Carbon Dioxide 26.0 Anion Gap 9 BUN 18 Creatinine 1.12 Estim Creat Clear Calc 52.81 Est GFR (MDRD) Af Amer 85 Est GFR (MDRD) Non-Af 71 BUN/Creatinine Ratio 16.1 Glucose 103 Calcium 9.6 Troponin I High Sens 4 B-Natriuretic Peptide 10.4 Radiography Diagnostic Testing: Clinical Impression(s) from Imaging Studies Chest X-Ray 11/28/22 22:15 IMPRESSION: No definite acute or significant abnormality seen. Electronically Signed: Emeka Richardson MD at 22:39 EDT , Discharge Plan Triage Chief Complaint: Shortness of Breath ED Provider: Bernardo Linton Dx/Rx/DC Orders Clinical Impression: SOB (shortness of breath) Instructions: ED Dyspnea Prescriptions: No Action budesonide-formoterol [Symbicort] 160-4.5 mcg/actuation HFA aerosol inhaler 2 puff INHALATION BID PRN (Reason: Wheezing) bupropion HCl (smoking deter) 150 mg tablet extended release 12 hr 150 mg PO BID gabapentin 400 mg capsule 400 mg PO BID albuterol sulfate 90 mcg/actuation HFA aerosol inhaler 2 puff inhalation Q4H PRN (Reason: shortness of breath or wheezing) Label Comments: INHALE 2 PUFFS BY MOUTH EVERY 4 HOURS NEEDED omeprazole 20 MG capsule 20 mg PO DAILY pramipexole 0.5 mg tablet 0.5 mg PO QHS Primary Care Provider: Josef Garcia Chi Referrals: Josef Garcia Chi, MD [Primary Care Provider] - Activity Restrictions/Additional Instructions: Thank you for trusting us with your care today! Please take Tylenol (2 pills, 650 mg), ibuprofen (2 pills, 400 mg) every 6 hoursas needed for pain and fever control. Please return to the emergency department if your symptoms change or worsen. Please follow with your primary care physician for further outpatient evaluationand management. Disposition Disposition: Home, Self Care What to do if you have Problems For any increased pain, shortness of breath, bleeding, nausea or vomiting, chestpain, or any unexpected problems, contact your Primary Care Provider. Call [facility] ([phone]) or report to the closest Emergency Room. Call 911 if necessary. 11/28/22 9788 <Electronically signed by Bernardo Linton DO> Cosigner Signature (if applicable): CC: Dr. Josef Garcia MD ~ Signed [facility] Work Phone: 1(503) 886-420110-07-2022 NoteHistory & Physical Reviewed: I have reviewed the History and Physical dated: 07-Apr-2022 History and Physical reviewed and relevant findings noted. Patient examined to review pertinent physical findings.: No significant changes Home Medications Reviewed: no changes noted Allergies Reviewed: no changes noted ERAS (Enhanced Recovery After Surgery): ERAS Patient: no Consent: COVID-19 Consent: COVID-19 Risk ConsentSurgeon has reviewed vleez risks related to the risk of christy COVID-19 and if they contract COVID-19 what the risks are. Electronic Signatures: Aracely Cole) (Signed 25-Apr-2022 14:18) Authored: History & Physical Reviewed, ERAS, Consent, Note Completion Last Updated: 25-Apr-2022 14:18 by Aracely Cole)[facility]10-07-2022 NotePROCEDURE DETAILS Preoperative Diagnosis: Left Kidney stone Postoperative Diagnosis: Left Kidney stone Surgeon: Trino Maradiaga Resident/Fellow/Other [employer] Foreman: none Procedure: Left ESWL Estimated Blood Loss: 0 Findings: See Op note Specimens(s) Collected: no, Operative Report: Surgeon: Aracely Cole MD Anesthetic: General. Pre-Op Diagnosis: Left Renal stone. Post-Op Diagnosis: Same. Operation: Left extracorporeal shock wave lithotripsy. ESTIMATED BLOOD LOSS: Minimal. COMPLICATIONS: None. INDICATIONS AND CONSENT: Patient presents for Tx of known stone... After the risks, benefits, alternatives, and indications for the procedure were explained to the patient, consented. PROCEDURE: The patient was brought to the operating room and placed on the table in supine position. After adequate anesthesia was obtained, fluoroscopy was used to visualize the stone. A total of 2500 shocks were delivered. The patient tolerated the procedure well. There were no complications. He will follow up with me in 1 week for stent removal. Electronic Signatures: Aracely Cole) (Signed 25-Apr-2022 16:31) Authored: Post-Operative Note, Chart Review, Note Completion Last Updated: 25-Apr-2022 16:31 by Aracely Cole)[facility]09-09-2022 NoteHistory of Present Illness: HPI: BILL ESTRADA is a 61 year old Male With a past medical history of back pain, COPD with CPAP, GERD, status post pacemaker, kidney stones, arthritis and syncope who presented to the hospital as a transfer from [place] for kidney stone. He has been having some left-sided flank pain since Thursday, pain is pretty constant, at its worst he describes it as 20/10 associated with some nausea and vomiting, no fever or chills no urinary complaints including difficulty or burning. He went to [place] ER on Thursday and was sent home with some pain meds. Initially he felt well but since the pain came back so he returned. And was found to have a left-sided ureteric stone and was sent to our hospital for further management. Past medical history as per HPI Review of systems as per HPI, comprehensive view system performed Family history positive for colon cancer in mother and breast cancer in 2 sisters. He does get colonoscopies, last one was a year and a half ago Social history smokes about a pack a day, no regular alcohol use Social History: Social History Smoking Statusmoderate user (uses 11-30 cig/day, OR 0.5-1.5 ppd, OR 2-3 cans/pouches loose leaf tobacco per week, OR 0.5-1.5 vape pods per day) (1) Alcohol Usedenies(1) Drug Usedenies (1) Allergies: morphine: Psychosis Medications Prior to Admission: No Home Meds have been entered for reconciliation yet. Objective: Objective Information: T PRBPMAPSpO2 [id number]% Date/Time03/28 11: 11: 11: 11: 11: 11:07 Range(36.6C - 36.8C ) (75 - 78 ) (17 - 17 ) (113 - 154 )/ (58 - 68 ) (71 - 71 ) (93% - 94% ) Pain reported at 03/28 10:56: 0 = None Physical Exam by System Constitutional: Awake/alert/oriented x3, no distress, alert and cooperative Eyes: EOMI, clear sclera ENMT: Mucous membranes moist, no apparent injury. Head/Neck: Normocephalic, atraumatic Respiratory/Thorax: Patent airways, nonlabored breathing, chest rise symmetrical. Room air. Gastrointestinal: Abdomen soft, nondistended, nontender. Genitourinary: Bladder nondistended, nontender. Left-sided flank tenderness on palpation. Musculoskeletal: ROM intact. Extremities: Moves all extremities easily Neurological: Alert and oriented x3 Lymphatic: No significant lymphadenopathy Psychological: Appropriate mood and behavior Skin: Warm and dry, no rashes noted. Medications Medications: Continuous Medications 1. Lactated Ringers Infusion: 1000 mL IntraVenous 2. Lactated Ringers Infusion: 1000 mL IntraVenous Scheduled Medications 1. Ciprofloxacin 400 mg IVPB/ Premixed Soln 200 mL: 200 mL IntraVenous Piggyback Every 12 Hours 2. Midazolam Injectable: 1 mg IntraVenous Push Once PRN Medications 1. HYDROmorphone Injectable: 0.5 mg IntraVenous Push Every 4 Hours 2. Morphine Injectable: 4 mg IntraVenous Push Every 5 Minutes 3. Naloxone Injectable: 0.2 mg IntraVenous Push Once 4. oxyCODONE 5 mg - Acetaminophen 325 m tablet(s) Oral Every 4 Hours Assessment and Plan: Assessment: 61-year-old male with history of pacemaker implant, syncope, kidney stones, diverticulitis, GERD, COPD, back pain admitted with left-sided UPJ stone with trace proximal hydronephrosis and BERNARD He will be started on IV ciprofloxacin as per urologist recommendation IV fluids Pain control and supportive care He was counseled regarding smoking Advised him to continue colon cancer surveillance He will resume his home meds post discharge Urology consulted plan for OR with cystoscopy later today Mild BERNARD should improve with fluid resuscitation and relief of obstruction DVT prophylaxis Electronic Signatures for Addendum Section: Elgin Alvarado) (Signed Addendum 28-Mar-2022 14:46) Patient underwent surgery. He is back to the floor. Awake. Once he tolerates p.o. intake will be discharged home. Electronic Signatures: Elgin Alvarado) (Signed 28-Mar-2022 13:08) Authored: History of Present Illness, Comorbidities, Social History, Allergies, Medications Prior to Admission, Objective, Assessment and Plan, Note Completion Last Updated: 28-Mar-2022 14:46 by Elgin Alvarado) References: 1. Data Referenced From Consult-Urology 28-Mar-2022 09:37[facility]09-09-2022 History of Present illness Narrative* 61 yo male presenting for stent removal s/p left URS with holmium laser on 03/28/22, and left ESWL on 04/25/22. KUB on 04/03/22 revealed Left-sided double-J ureteral stent in appropriate anatomic position. * Calcific densities are visualized in the upper pole of the left * kidney measuring up to 2 mm and in the interpolar region of the left * kidney measuring up to 5 mm surrounding the course of the proximal * stent. These likely represent nephroliths. * KUB today showed small fragments that will likely pass. [facility] Work Phone: [phone] NotePROCEDURE DETAILS Preoperative Diagnosis: Left Ureteral stone Postoperative Diagnosis: Left Ureteral stone Surgeon: Dr. Maradiaga Resident/Fellow/Other Commercial [employer] Metal Foreman: none Procedure: Left URS holmium laser, left stent, left retrograde pyelogram Estimated Blood Loss: 0 Findings: See Op note Specimens(s) Collected: yes, stone fragments Operative Report: Preoperative diagnosis: Left ureteral stone Postoperative diagnosis: The same Physician: Aracely Cole Procedure: Cystoscopy with Left RPG, Left ureteroscopy with holmium and stent placement ESTIMATED BLOOD LOSS: Minimal. COMPLICATIONS: None. INDICATIONS AND CONSENT: After the risks, benefits, alternatives and indications of this procedure were explained to the patient consented. PROCEDURE: The patient was brought to the operating room, placed on the table in supine position. After adequate anesthesia was obtained, the patient was prepped and draped in the standard surgical fashion. First, a 21 [place]an cystoscope was inserted into the bladder, and formal cystoscopy was performed. A guidewire was placed up the ureter into the renal pelvis using fluoroscopic guidance . A left retrograde pyelogram suggested no filling defect in the ureter. The ureteroscope was taken up to the level of the left kidney. No stone was visualized , we then shot a retrograde pyelogram which did not show any obvious filling defects or additional stones in the left ureter nor left kidney . The ureteroscope was removed and a 5 x 24 double-J stent was placed under direct fluoroscopic vision because of severe ureteritis and inflammation. . The patient tolerated the procedure well and there were no complications. He will follow up with me in 1 week with KUB and stent removal Electronic Signatures: Aracely Cole) (Signed 28-Mar-2022 13:46) Authored: Post-Operative Note, Chart Review, Note Completion Last Updated: 28-Mar-2022 13:46 by Aracely Cole)[facility]09-09-2022 NoteHistory & Physical Reviewed: I have reviewed the History and Physical dated: 28-Mar-2022 History and Physical reviewed and relevant findings noted. Patient examined to review pertinent physical findings.: No significant changes Home Medications Reviewed: no changes noted Allergies Reviewed: no changes noted ERAS (Enhanced Recovery After Surgery): ERAS Patient: no Consent: COVID-19 Consent: COVID-19 Risk ConsentSurgeon has reviewed velez risks related to the risk of christy COVID-19 and if they contract COVID-19 what the risks are. Electronic Signatures: Aracely Cole) (Signed 28-Mar-2022 10:23) Authored: History & Physical Reviewed, ERAS, Consent, Note Completion Last Updated: 28-Mar-2022 10:23 by Aracely Cole)[facility] + Plan note No data available for this section [facility] Evaluation noteNo assessment information available [facility] Work Phone: Evaluation note* Diagnosis Onset Date Resolution Status Sinus bradycardia acute Presence of cardiac pacemaker chronic Sick sinus syndrome chronic Sinus arrest chronic Syncope and collapse chronic Renal stones acute Restless leg syndrome acute Sick sinus syndrome chronic Preoperative cardiovascular examination noneactive [facility] Work Phone: Evaluation note* Diagnosis Onset Date Resolution Status Sinus bradycardia acute Presence of cardiac pacemaker chronic Sick sinus syndrome chronic Sinus arrest chronic Syncope and collapse chronic Renal stones acute Restless leg syndrome acute Sick sinus syndrome chronic Preoperative cardiovascular examination noneactive Restless leg syndrome acute Sick sinus syndrome [facility] Work Phone: Evaluation note* Diagnosis Onset Date Resolution Status Restless leg syndrome acute Sick sinus syndrome chronic [facility] Work Phone: Evaluation note* Diagnosis Onset Date Resolution Status Presence of cardiac pacemaker chronic Sick sinus syndrome chronic Sinus arrest chronic Syncope and collapse [facility] Work Phone: Evaluation note* Diagnosis Onset Date Resolution Status Sinus bradycardia acute Presence of cardiac pacemaker chronic Sick sinus syndrome chronic Sinus arrest chronic Syncope and collapse [facility] Work Phone: Evaluation note* Diagnosis Onset Date Resolution Status Restless leg syndrome acute Nicotine dependence chronic Obesity chronic Sick sinus syndrome chronic [facility] Work Phone: Evaluation note* Diagnosis Sick sinus syndrome (HCC)- Primary Sinoatrial node dysfunction Sinus arrest Other heart block Carotid sinus hypersensitivity Carotid sinus syndrome Presence of cardiac pacemaker Cardiac pacemaker in situ Malfunction of electrode lead of cardiac pacemaker documented in this encounter [facility] note* Diagnosis Malignant neoplasm of lower third of esophagus (HCC)- Primary Malignant neoplasm of lower third of esophagus documented in this encounter [facility] note* Diagnosis Malignant neoplasm of lower third of esophagus (HCC) Malignant neoplasm of lower third of esophagus documented in this encounter [facility] note* Diagnosis Malignant neoplasm of lower third of esophagus (HCC) Malignant neoplasm of lower third of esophagus documented in this encounter [facility] note* Diagnosis Malignant neoplasm of lower third of esophagus (HCC)- Primary Malignant neoplasm of lower third of esophagus Malignant neoplasm of lower third of esophagus (HCC) Malignant neoplasm of lower third of esophagus [facility] Diagnosis Malignant neoplasm of lower third of esophagus (HCC)- Primary Malignant neoplasm of lower third of esophagus Malignant neoplasm of lower third of esophagus (HCC) Malignant neoplasm of lower third of esophagus documented in this encounter [facility] note* Diagnosis Encounter for education- Primary Counseling NOS Malignant neoplasm of lower third of esophagus (HCC) Malignant neoplasm of lower third of esophagus documented in this encounter [facility] note* Diagnosis Malignant neoplasm of lower third of esophagus (HCC)- Primary Malignant neoplasm of lower third of esophagus [facility] Diagnosis Malignant neoplasm of lower third of esophagus (HCC)- Primary Malignant neoplasm of lower third of esophagus [facility] Diagnosis Malignant neoplasm of lower third of esophagus (HCC)- Primary Malignant neoplasm of lower third of esophagus documented in this encounter [facility] note* Diagnosis Malignant neoplasm of lower third of esophagus (HCC)- Primary Malignant neoplasm of lower third of esophagus [facility] Diagnosis Malignant neoplasm of lower third of esophagus (HCC) Malignant neoplasm of lower third of esophagus [facility] Diagnosis Malignant neoplasm of lower third of esophagus (HCC)- Primary Malignant neoplasm of lower third of esophagus [facility] Diagnosis Malignant neoplasm of lower third of esophagus (HCC)- Primary Malignant neoplasm of lower third of esophagus [facility] Malnutrition of moderate degree (HCC)- Primary Malnutrition of moderate degree [facility] Diagnosis Malignant neoplasm of lower third of esophagus (HCC)- Primary Malignant neoplasm of lower third of esophagus Hypokalemia Hypopotassemia [facility] Diagnosis Malignant neoplasm of lower third of esophagus (HCC)- Primary Malignant neoplasm of lower third of esophagus [facility] Diagnosis Malignant neoplasm of lower third of esophagus (HCC)- Primary Malignant neoplasm of lower third of esophagus [facility] Diagnosis Malignant neoplasm of lower third of esophagus (HCC)- Primary Malignant neoplasm of lower third of esophagus [facility] Diagnosis Malignant neoplasm of lower third of esophagus (HCC)- Primary Malignant neoplasm of lower third of esophagus [facility] Diagnosis Malignant neoplasm of lower third of esophagus (HCC) Malignant neoplasm of lower third of esophagus [facility] Diagnosis Malignant neoplasm of lower third of esophagus (HCC) Malignant neoplasm of lower third of esophagus NSTEMI (non-ST elevated myocardial infarction) (HCC)- Primary Acute myocardial infarction, subendocardial infarction, episode of care unspecified Moderate smoker (20 or less per day) Tobacco use disorder Anemia, unspecified type [facility] Diagnosis Malignant neoplasm of lower third of esophagus (HCC) Malignant neoplasm of lower third of esophagus NSTEMI (non-ST elevated myocardial infarction) (HCC)- Primary Acute myocardial infarction, subendocardial infarction, episode of care unspecified Moderate smoker (20 or less per day) Tobacco use disorder Anemia, unspecified type [facility] Diagnosis Malignant neoplasm of lower third of esophagus (HCC)- Primary Malignant neoplasm of lower third of esophagus NSTEMI (non-ST elevated myocardial infarction) (HCC)- Primary Acute myocardial infarction, subendocardial infarction, episode of care unspecified Moderate smoker (20 or less per day) Tobacco use disorder Anemia, unspecified type [facility] Diagnosis Malignant neoplasm of lower third of esophagus (HCC)- Primary Malignant neoplasm of lower third of esophagus Preoperative examination Preoperative examination, unspecified Malnutrition of moderate degree (HCC) Malnutrition of moderate degree Malignant neoplasm of lower third of esophagus (HCC) Malignant neoplasm of lower third of esophagus Malnutrition of moderate degree (HCC) Malnutrition of moderate degree [facility] Preoperative examination- Primary Preoperative examination, unspecified NSTEMI (non-ST elevated myocardial infarction) (HCC) Acute myocardial infarction, subendocardial infarction, episode of care unspecified Moderate smoker (20 or less per day) Tobacco use disorder Anemia, unspecified type Malignant neoplasm of lower third of esophagus (HCC) Malignant neoplasm of lower third of esophagus Sick sinus syndrome (HCC) Sinoatrial node dysfunction Malnutrition of moderate degree (HCC) Malnutrition of moderate degree MAGGI on CPAP Obstructive sleep apnea (adult) (pediatric) Malignant neoplasm of lower third of esophagus (HCC) Malignant neoplasm of lower third of esophagus Malnutrition of moderate degree (HCC) Malnutrition of moderate degree [facility] Malignant neoplasm of lower third of esophagus (HCC)- Primary Malignant neoplasm of lower third of esophagus Malignant neoplasm of lower third of esophagus (HCC) Malignant neoplasm of lower third of esophagus Malnutrition of moderate degree (HCC) Malnutrition of moderate degree [facility] Diagnosis Malignant neoplasm of lower third of esophagus (HCC)- Primary Malignant neoplasm of lower third of esophagus Anemia, unspecified type Malignant neoplasm of lower third of esophagus (HCC) Malignant neoplasm of lower third of esophagus Malnutrition of moderate degree (HCC) Malnutrition of moderate degree [facility] Diagnosis Malignant neoplasm of lower third of esophagus (HCC)- Primary Malignant neoplasm of lower third of esophagus Malignant neoplasm of lower third of esophagus (HCC) Malignant neoplasm of lower third of esophagus Malnutrition of moderate degree (HCC) Malnutrition of moderate degree [facility] Diagnosis Iron deficiency anemia secondary to inadequate dietary iron intake- Primary Malignant neoplasm of lower third of esophagus (HCC) Malignant neoplasm of lower third of esophagus Malnutrition of moderate degree (HCC) Malnutrition of moderate degree [facility] Diagnosis Iron deficiency anemia secondary to inadequate dietary iron intake- Primary Malignant neoplasm of lower third of esophagus (HCC) Malignant neoplasm of lower third of esophagus Malnutrition of moderate degree (HCC) Malnutrition of moderate degree [facility] Diagnosis Malignant neoplasm of lower third of esophagus (HCC) Malignant neoplasm of lower third of esophagus Malignant neoplasm of lower third of esophagus (HCC) Malignant neoplasm of lower third of esophagus Malnutrition of moderate degree (HCC) Malnutrition of moderate degree documented in [facility] Diagnosis Iron deficiency anemia secondary to inadequate dietary iron intake- Primary Malignant neoplasm of lower third of esophagus (HCC) Malignant neoplasm of lower third of esophagus Malignant neoplasm of lower third of esophagus (HCC) Malignant neoplasm of lower third of esophagus Malnutrition of moderate degree (HCC) Malnutrition of moderate degree documented in this encounter [facility] Diagnosis Malignant neoplasm of lower third of esophagus (HCC)- Primary Malignant neoplasm of lower third of esophagus Malignant neoplasm of lower third of esophagus (HCC) Malignant neoplasm of lower third of esophagus Malnutrition of moderate degree (HCC) Malnutrition of moderate degree documented in [facility] Diagnosis Iron deficiency anemia secondary to inadequate dietary iron intake- Primary Malignant neoplasm of lower third of esophagus (HCC) Malignant neoplasm of lower third of esophagus Malignant neoplasm of lower third of esophagus (HCC) Malignant neoplasm of lower third of esophagus Malnutrition of moderate degree (HCC) Malnutrition of moderate degree documented in this [facility]* Diagnosis Pre-op testing- Primary Preoperative examination, unspecified Malignant neoplasm of lower third of esophagus (HCC) Malignant neoplasm of lower third of esophagus Malnutrition of moderate degree (HCC) Malnutrition of moderate degree documented in this encounter [facility] Diagnosis Malignant neoplasm of lower third of esophagus (HCC) Malignant neoplasm of lower third of esophagus Malignant neoplasm of lower third of esophagus (HCC) Malignant neoplasm of lower third of esophagus Malnutrition of moderate degree (HCC) Malnutrition of moderate degree documented in this encounter 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 Iron deficiency anemia secondary to inadequate dietary iron intake Smoker Tobacco use disorder Bronchiolar disease Other diseases of trachea and bronchus Malignant neoplasm of lower third of esophagus (HCC) Malignant neoplasm of lower third of esophagus Malnutrition of moderate degree (HCC) Malnutrition of moderate degree * Assessment & Plan Note - Leigh Ann Talavera APRN.COLOR BUFFER - 01/13/2025 3:01 PM EDT Associated Problem(s): Smoker 25 pack-year history 1/2 ppd Encouraged to cut back prior to surgery and avoid morning of surgery * Assessment & Plan Note - Leigh Ann Talavera APRN.CNP - 01/13/2025 2:57 PM EDT Associated Problem(s): Iron deficiency anemia secondary to inadequate dietary iron intake H&H 10.7/32.9 01/10/25 * Assessment & Plan Note - Leigh Ann Talavera APRN.CNP - 01/13/2025 2:56 PM EDT Associated Problem(s): 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 Surgeon scheduled for January 27, 2025 * Assessment & Plan Note - Leigh Ann Talavera APRN.CNP - 01/13/2025 2:55 PM EDT Associated Problem(s): COPD (chronic obstructive pulmonary disease) (HCC) Albuterol has not used albuterol in many many months Ellipta has not used this inhaler in several months Lungs CT[facility] at [facility] * Assessment & Plan Note - Leigh Ann Talavera APRN.CNP - 01/13/2025 2:54 PM EDT Associated Problem(s): Presence of cardiac pacemaker Component Value PM-Device Mfg STJ Model 2272 Assurity MRI Serial Number [id number] Implant Date 03/29/2024 Lead1 Mfg SJM Model 2087TC/52 Serial Number [id number] Location [place] Implant Date 03/29/2024 Lead2 Mfg SJM Model 2087TC Tendril STS Optim IS Serial Number [id number] Location RA Implant Date 07/15/2013 * Assessment & Plan Note - Leigh Ann Talavera APRN.CNP - 01/13/2025 2:53 PM EDT Associated Problem(s): Sick sinus syndrome (HCC) 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 Value PM-Device Mfg STJ Model 2272 Assurity MRI Serial Number [id number] Implant Date 03/29/2024 Lead1 Mfg SJM Model 2087TC/52 Serial Number [id number] Location RV Implant Date 03/29/2024 Lead2 Mfg SJM Model 2087TC Tendril STS Optim IS Serial Number [id number] Location RA Implant Date 07/15/2013 * Assessment & Plan Note - Leigh Ann Talavera APRN.CNP - 01/13/2025 2:51 PM EDT Associated Problem(s): Malignant neoplasm of lower third of esophagus (HCC) Surgery scheduled for January 27, 2025 * Assessment & Plan Note - Leigh Ann Talavera APRN.CNP - 01/13/2025 2:51 PM EDT Associated Problem(s): Preop examination Patient has the following medical conditions which may affect estrella-operative course addressed in assessment and plan today. 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 Iron deficiency anemia secondary to inadequate dietary iron intake Smoker Tobacco use disorder Hilar adenopathy- Primary Enlargement of lymph nodes Malignant neoplasm of lower third of esophagus (HCC) Malignant neoplasm of lower third of esophagus Dysphagia, unspecified type Tobacco use disorder Centrilobular emphysema (HCC) Other emphysema Malignant neoplasm of lower third of esophagus (HCC) Malignant neoplasm of lower third of esophagus Malnutrition of moderate degree (HCC) Malnutrition of moderate degree [facility] Diagnosis Preop examination- Primary Preoperative examination, unspecified Malignant neoplasm of lower third of esophagus (HCC) Malignant neoplasm of lower third of esophagus Sick sinus syndrome (HCC) Sinoatrial node dysfunction Presence of cardiac pacemaker Cardiac pacemaker in situ Chronic obstructive pulmonary disease, unspecified COPD type (HCC) 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 Iron deficiency anemia secondary to inadequate dietary iron intake Smoker Tobacco use disorder Malignant neoplasm of lower third of esophagus (HCC)- Primary Malignant neoplasm of lower third of esophagus Malignant neoplasm of lower third of esophagus (HCC) Malignant neoplasm of lower third of esophagus Malnutrition of moderate degree (HCC) Malnutrition of moderate degree documented in this encounter [facility] note* Diagnosis Preop examination- Primary Preoperative examination, unspecified Malignant neoplasm of lower third of esophagus (HCC) Malignant neoplasm of lower third of esophagus Sick sinus syndrome (HCC) Sinoatrial node dysfunction Presence of cardiac pacemaker Cardiac pacemaker in situ Chronic obstructive pulmonary disease, unspecified COPD type (HCC) 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 Iron deficiency anemia secondary to inadequate dietary iron intake Smoker Tobacco use disorder Malnutrition of moderate degree (HCC)- Primary Malnutrition of moderate degree Malignant neoplasm of lower third of esophagus (HCC) Malignant neoplasm of lower third of esophagus Malnutrition of moderate degree (HCC) Malnutrition of moderate degree Malignant neoplasm of lower third of esophagus (HCC) Malignant neoplasm of lower third of esophagus Malignant neoplasm of lower third of esophagus (HCC) Malignant neoplasm of lower third of esophagus Malnutrition of moderate degree (HCC) Malnutrition of moderate degree 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 Iron deficiency anemia secondary to inadequate dietary iron intake Smoker Tobacco use disorder Chronic obstructive pulmonary disease, unspecified COPD type (HCC)- Primary 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 Iron deficiency anemia secondary to inadequate dietary iron intake Smoker Tobacco use disorder Malignant neoplasm of lower third of esophagus (HCC)- Primary Malignant neoplasm of lower third of esophagus Severe protein-calorie malnutrition (HCC) Other severe protein-calorie malnutrition Malignant neoplasm of lower third of esophagus (HCC) Malignant neoplasm of lower third of esophagus Malnutrition of moderate degree (HCC) Malnutrition of moderate degree [facility] Preop examination- Primary Preoperative examination, unspecified Malignant neoplasm of lower third of esophagus (HCC) Malignant neoplasm of lower third of esophagus Sick sinus syndrome (HCC) Sinoatrial node dysfunction Presence of cardiac pacemaker Cardiac pacemaker in situ Chronic obstructive pulmonary disease, unspecified COPD type (HCC) 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 Iron deficiency anemia secondary to inadequate dietary iron intake Smoker Tobacco use disorder Severe protein-calorie malnutrition (HCC)- Primary Other severe protein-calorie malnutrition 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 This should pass. Typically an 8 mm or larger is when to get stuck. Oxycodone which is Percocet for pain. You may alternate Motrin in between. Plenty of fluids to help the stone pass. Strain your urine for the past stone. The antibiotic ciprofloxacin also noticed Cipro twice a day because you may also have a urinary tract infection. A urine culture will was sent and should return in about 2 days. Follow-up with the urologist if not improving. Return if intractable pain you cannot control, fever or intractable vomiting. I also wrote you for nausea medication called Zofran. It will be at the pharmacy with your other 2 prescriptions.[facility] Work Phone: Hospital Discharge instructions Additional Instructions Thank you for trusting us with your care today! Please take Tylenol (2 pills, 650 mg), ibuprofen (2 pills, 400 mg) every 6 hours as needed for pain and fever control. Please return to the emergency department if your symptoms change or worsen. Please follow with your primary care physician for further outpatient evaluation and management.[facility] Work Phone: Hospital Discharge instructions Additional Instructions Follow-up with oncology. Call tomorrow to make a follow-up appointment. Return back to the ED if symptoms change or worsen. Take all of your antibiotics. You received your first dose here in emergency department.[facility] Work Phone: Reason for referral (narrative)No reason for referral information availableWooMercy Health St. [facility] Work Phone: Reason for visit Narrative* Diagnostic Procedure Only (Routine) - Closed Specialty Diagnoses / Procedures Referred By Contac t Referred To Contact MOLECULAR & FUNCTIONAL IMAGING Diagnoses Malignant neoplasm of lower third of esophagus (HCC) Procedures NM PET/CT SKULL-THIGH INITIAL PET IMAGING CT ATTENUATION SKULL BASE MID-THIGH Kemal Obregon MD [address] [place] [address] Phone: tel: Molecular Imaging [address] [place] [address] Phone: tel: Referral ID Status Reason Start Date Expiration Date V isits Requested Visits Authorized [id number] Closed Auto-Generate d Referral 10/12/2024 11/11/2025 1 1 [facility] for visit Narrative* Diagnostic Procedure Only (Routine) - Closed Specialty Diagnoses / Procedures Referred By Contac t Referred To Contact MOLECULAR & FUNCTIONAL IMAGING Diagnoses Malignant neoplasm of lower third of esophagus (HCC) Procedures NM PET/CT SKULL-THIGH SUBSEQUENT PET IMAGING CT ATTENUATION SKULL BASE MID-THIGH Renay Cloud MD [address] [place] [address] Phone: tel: fax: Molecular Imaging [address] [place] [address] Phone: tel: Referral ID Status Reason Start Date Expiration Date V isits Requested Visits Authorized [id number] Closed Auto-Generate d Referral 11/21/2024 12/21/2025 1 1 [facility] Chief Complaint and Reason for Visit Chief Complaint nicotine dep Chief Complaint nicotine dep CHILLS WITHOUT FEVER Chief Complaint nicotine dep CHILLS WITHOUT FEVER FLANK Chief Complaint nicotine dep CHILLS WITHOUT FEVER FLANK NAUSEA/VOMITING R/T KIDNEY STONE Amb Documentation LAST CK'D 05/2019 (RAMIRO 9:30) CLEAR-KIDNEY STONES (KASSIDY 9:00) Reason for Visit Sinus bradycardia Presence of cardiac pacemaker Sick sinus syndrome Sinus arrest Syncope and collapse Renal stones Restless leg syndrome Sick sinus syndrome Preoperative cardiovascular examination Chief Complaint CHILLS WITHOUT FEVER FLANK NAUSEA/VOMITING R/T KIDNEY STONE Amb Documentation LAST CK'D 05/2019 (RAMIRO 9:30) CLEAR-KIDNEY STONES (KASSIDY 9:00) CHILLS WITHOUT FEVER 3 M FU Reason for Visit Sinus bradycardia Presence of cardiac pacemaker Sick sinus syndrome Sinus arrest Syncope and collapse Renal stones Restless leg syndrome Sick sinus syndrome Preoperative cardiovascular examination Restless leg syndrome Sick sinus syndrome Chief Complaint CHILLS WITHOUT FEVER 3 M FU Reason for Visit Restless leg syndrom e Sick sinus syndrome Chief Complaint 3 mos remote PPM f/u EDEMA RIGHT LOWER EXT COPD SOB Reason for Visit Presence of cardiac pacemaker Sick sinus syndrome Sinus arrest Syncope and collapse Chief Complaint 3 mos remote PPM f/u EDEMA RIGHT LOWER EXT COPD SOB SOB Reason for Visit Presence of cardiac pacemaker Sick sinus syndrome Sinus arrest Syncope and collapse Chief Complaint SOB 3 mos remote PPM f/u Reason for Visit Sinus bradycardia Presence of cardiac pacemaker Sick sinus syndrome Sinus arrest Syncope and collapse Chief Complaint 3 mos remote PPM f/u HX OF NICOTINE DEPENDENCE Reason for Visit Sinus bradycardia Presence of cardiac pacemaker Sick sinus syndrome Sinus arrest Syncope and collapse Chief Complaint HX OF NICOTINE DEPEN DENCE Fecal impaction Chief Complaint HX OF NICOTINE DEPEN DENCE Fecal impaction 1 Y FU abd pain Reason for Visit Restless leg syndrom e Nicotine dependence Obesity Sick sinus syndrome Chief Complaint abd pain Pacer Check Remote Chief Complaint Pacer Check Remote Abnormal electrocardiogram [ECG] [EKG] Abnormal electrocardiogram [ECG] [EKG] Amb Documentation Chief Complaint Admit Date VERTIGO June 24, 2024 8 :37am DYSPHAGIA August 03, 2024 1 2:00pm DYSPHAGIA August 09, 2024 9 :36am Chief Complaint Admit Date DYSPHAGIA August 03, 2024 1 2:00pm DYSPHAGIA August 09, 2024 9 :36am Chief Complaint Admit Date Pacer Check Remote October 24, 2024 8:46 am weakness January 05, 2025 4:39 pm Chief Complaint Admit Date weakness January 05, 2025 4:39 pm Pacer Check Remote February 17, 2025 9:4 6am Family History No Family History Records Found Relationship Condition Age at Onset Recorded Date/T carter Not Specified Cerebrovascular accident (CVA) Unknown mother Malignant neoplasm of colon Unknown sister Malignant neoplasm of breast Unknown Unknown Family Member Name Dates Details Family history of malignant neoplasm of colon: Mother(V16.0, Z80.0) Status:Active Family history of malignant neoplasm of breast: Daughter, Sister(V16.3, Z80.3) Status:Active Unknown Family Member Name Dates Details Family history of malignant neoplasm of colon: Mother(V16.0, Z80.0) Status:Active Family history of malignant neoplasm of breast: Daughter, Sister(V16.3, Z80.3) Status:Active Unknown Family Member Name Dates Details Family history of malignant neoplasm of colon: Mother(V16.0, Z80.0) Status:Active Family history of malignant neoplasm of breast: Daughter, Sister(V16.3, Z80.3) Status:Active Unknown Family Member Name Dates Details Family history of malignant neoplasm of colon: Mother(V16.0, Z80.0) Status:Active Family history of malignant neoplasm of breast: Daughter, Sister(V16.3, Z80.3) Status:Active Advance Directives No Advanced Directives Records Found Advance Directive Response Recorded Date/ Time Advance Directives No August 12:46pm Living Will No March 21 021 1:37pm Power of Glass Cleaner No March 21, 2021 1:37pm Advance Directive Response Recorded Date/ Time Name of Medical Power of Glass Cleaner RONEL ESTRADA- March 26, 2022 3:47pm Advance Directives No August 12:46pm Living Will Yes March 26 022 3:47pm Power of Glass Cleaner Yes March 26, 2022 3:47pm Advance Directive Response Recorded Date/ Time Name of Medical Power of Glass Cleaner RONEL ESTRADA- March 26, 2022 3:47pm Advance Directives No August 12:46pm Living Will No March 27 022 11:14pm Power of Glass Cleaner No March 27, 2022 11:14pm Advance Directive Response Recorded Date/ Time Name of Medical Power of Glass Cleaner RONEL ESTRADA- March 26, 2022 2:47pm Advance Directives No August 11:46am Living Will No March 27, 022 10:14pm Power of Glass Cleaner No March 27, 2022 10:14pm Advance Directive Response Recorded Date/ Time Advance Directives No August 11:46am Living Will No March 27, 10:14pm Power of Glass Cleaner No March 27, 2022 10:14pm Advance Directive Response Recorded Date/ Time Advance Directives No August 12:46pm Living Will No March 27 11:14pm Power of Glass Cleaner No March 27, 2022 11:14pm Advance Directive Response Recorded Date/ Time Name of Medical Power of Glass Cleaner November 28, 2022 9:25pm Advance Directives No August 12:46pm Living Will Yes November 28, 2022 9 :25pm Power of Glass Cleaner Yes November 28, 2022 9:25pm Advance Directive Response Recorded Date/ Time Advance Directives No August 12:46pm Living Will Yes November 28, 2022 9 :25pm Power of Glass Cleaner Yes November 28, 2022 9:25pm Advance Directive Response Recorded Date/ Time Advance Directives No August 11:46am Living Will Yes November 28, 2022 8 :25pm Power of Glass Cleaner Yes November 28, 2022 8:25pm Advance Directive Response Recorded Date/ Time Advance Directives No August 11:46am Living Will No June 21 10:16am Power of Glass Cleaner No June 21, 2023 10:16am Advance Directive Response Recorded Date/ Time Advance Directives No August 12:46pm Living Will No June 21 11:16am Power of Glass Cleaner No June 21, 2023 11:16am Advance Directive Response Recorded Date/ Time Advance Directives No August 12:46pm Advance Directive Response Recorded Date/ Time Do you have a Healthcare Power of Glass Cleaner? 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 Decorator Expl anation Advance Directive(s) 01/03/2025 11:32 AM Documents on File Type Date Recorded Patient Display Decorator Expl anation Advance Directive(s) 01/03/2025 11:32 AM Date Activated Date Inactivated Comments 03/01/2025 8:07 AM Question Answer Comments Full Code Order Discussed With: Patient Date Activated Date Inactivated Comments 03/01/2025 8:07 AM 03/07/2025 2:28 PM Question Answer Comments Full Code Order Discussed With: Patient Date Activated Date Inactivated Comments 03/10/2025 9:43 AM Date Activated Date Inactivated Comments 03/01/2025 8:07 AM 03/07/2025 2:28 PM Question Answer Comments Full Code Order Discussed With: Patient Date Activated Date Inactivated Comments 03/10/2025 9:43 AM Date Activated Date Inactivated Comments 03/01/2025 8:07 AM 03/07/2025 2:28 PM Question Answer Comments Full Code Order Discussed With: Patient Date Activated Date Inactivated Comments 03/10/2025 9:43 AM 03/29/2025 3:10 PM Date Activated Date Inactivated Comments 03/10/2025 9:43 AM 03/29/2025 3:10 PM Summary Purpose Chief Complaint Left Renal Stone Additional Source Comments Goals (unrecognized section and content) Goals may be documented in a n alternate sectionGoals may be documented in an alternate sectionGoals may be documented in an alternate sectionGoals may be documented in an alternate sectionGoals may be documented in an alternate sectionGoals may be documented in an alternate sectionGoals may be documented in an alternate sectionGoals may be documented in an alternate sectionGoals may be documented in an alternate sectionGoals may be documented in an alternate sectionGoals may be documented in an alternate sectionGoals may be documented in an alternate sectionGoals may be documented in an alternate sectionGoals may be documented in an alternate sectionGoals may be documented in an alternate section No data available for this sectionGoals may be documented in an alternate sectionGoals may be documented in an alternate sectionGoals may be documented in an alternate sectionGoals may be documented in an alternate sectionGoals may be documented in an alternate section No data available for this sectionGoals may be documented in an alternate sectionGoals may be documented in an alternate sectionGoals may be documented in an alternate section (unrecognized sect ion and content) No Status Records FoundNo Status Records FoundNo Status Records FoundNo Status Records FoundNo Status Records FoundNo Status Records FoundNo Status Records FoundNo Status Records FoundNo Status Records FoundNo Status Records FoundNo Status Records Found INFORMATION SOURCE (unrecogn ized section and content) DATE CREATED AUTHOR 04/20/2022 [employer] DATE CREATED AUTHOR AUTHOR'S ORGANIZ ATION 04/24/2022 [facility] DATE CREATED AUTHOR AUTHOR'S ORGANIZ ATION 10/21/2022 [facility] DATE CREATED AUTHOR AUTHOR'S ORGANIZ ATION 07/19/2023 [facility] ([place]) DATE CREATED AUTHOR AUTHOR'S ORGANIZ ATION 11/23/2024 [facility] DATE CREATED AUTHOR AUTHOR'S ORGANIZ ATION 12/31/2024 [facility] DATE CREATED AUTHOR AUTHOR'S ORGANIZ ATION 04/05/2025 [facility] DATE CREATED AUTHOR AUTHOR'S ORGANIZ ATION 04/12/2025 [facility] DATE CREATED AUTHOR AUTHOR'S ORGANIZ ATION 05/12/2025 [facility] DATE CREATED AUTHOR AUTHOR'S ORGANIZ ATION 05/25/2025 [facility] DATE CREATED AUTHOR AUTHOR'S ORGANIZ ATION 05/26/2025 [facility] Care Teams (unrecognized sec tion and content) Team Status: Active Member Role Status Dates Josef Garcia MD Family Provider Active Dr. Josef Garcia MD Primary Care Provider Active Team Status: Inactive Member Role Status Dates Dr. Josef Garcia MD Primary Care Provider, Referring Provider Active Dr. Lorraine Rubio MD Attending Provider Active Team Status: Inactive Member Role Status Dates Dr. Josef Garcia MD Primary Care Provider, Attending Provider Active Team Status: Inactive Member Role Status Dates Dr. Josef Garcia MD Primary Care Provi iris, Attending Provider, Referring Provider Active Team Status: Active Member Role Status Dates Dr. Josef Garcia MD Primary Care Provider, Attending Provider Active Team Status: Active Member Role Status Dates Josef ROBERTS MD Family Provider Active Dr. Josef Garcia MD Primary Care Provider Active Team Status: Active Member Role Status Dates Dr. Josef Garcia MD Primary Care Provider Active Dr. Angel Fritz MD Attending Provider Active Team Status: Inactive Member Role Status Dates Dr. Josef Garcia MD Primary Care Provider, Referring Provider Active Jimena Farnsworth Attending Provider Active Team Status: Inactive Member Role Status Dates Dr. Josef Garcia MD Primary Care Provider Active Dr. Zia Salgado MD Attending Provider, Referrin g Provider Active Team Status: Active Member Role Status Dates Dr. Josef Garcia MD Primary Care Provider, Referring Provider Active Dr. Angel Fritz MD Attending Provider Active Team Status: Inactive Member Role Status Dates Dr. Josef Garcia MD Primary Care Provider Active Jimena Farnsworth Active Dr. Foster Malik MD Attending Provider, Referring Pro vider Active Team Status: Inactive Member Role Status Dates Dr. Josef Garcia MD Primary Care Provider Active Dr. Bernardo Linton DO Emergency Provider Active Team Status: Inactive Member Role Status Dates Dr. Josef Garcia MD Primary Care Provider Active Dr. Bernardo Linton DO Attending Provider, Emergency P rovider Active Team Status: Inactive Member Role Status Dates Dr. Josef Garcia MD Primary Care Provider Active Jayesh Crystal MD Emergency Provider Active Team Status: Inactive Member Role Status Dates Dr. Josef Garcia MD Primary Care Provider Active Jayesh Crystal MD Attending Provider, Emergency Provid er Active Team Status: Inactive Member Role Status Dates Dr. Josef Garcia MD Primary Care Provider Active Dr. Foster Malik MD Attending Provider Active Team Status: Inactive Member Role Status Dates Dr. Josef Garcia MD Primary Care Provider Active Vinnie Garcia QUALITY CONTROL REPRESENTATIVE, QUALITY CONTROL REPRESENTATIVE-C Attending Provider, Referring Pro vider Active Team Status: Inactive Member Role Status Dates Dr. Josef Garcia MD Primary Care Provider Active Dr. Foster Malik MD Attending Provider, Referring Pro vider Active Team Status: Active Member Role Status Dates Dr. Josef Garcia MD Primary Care Provider Active Vinnie Garcia QUALITY CONTROL REPRESENTATIVE, QUALITY CONTROL REPRESENTATIVE-C Referring Provider, Other Provide r Active Dr. Lorraine Rubio MD Attending Provider Active Team Status: Active Member Role Status Dates Dr. Josef Garcia MD Primary Care Provider Active Dr. Lorraine Rubio MD Attending Provider Active Team Status: Active Member Role Status Dates Dr. Josef Garcia MD Primary Care Provider Active Vinnie Garcia QUALITY CONTROL REPRESENTATIVE, QUALITY CONTROL REPRESENTATIVE-C Attending Provider Active 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 Specialty Start Date End Date Josef Garcia Chi [address] [place], [place] [address] PCP - General Gerontology 02/16/24 [facility] [address] [place] [address] Specialty Silverer Cardiology 02/16/24 Lorraine Rubio MD [address] [place] [address] Specialty Silverer Cardiology 02/16/24 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 Specialty Start Date End Date Josef Garcia Chi [address] [place] [address] PCP - General Gerontology 02/16/24 [facility] [address] [place] [address] Specialty Silverer Cardiology 02/16/24 Lorraine uRbio MD [address] [place] [address] Specialty Silverer Cardiology 02/16/24 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 Specialty Start Date End Date Josef Garcia Chi [address] [place] [address] PCP - General Gerontology 02/16/24 Lorraine Rubio MD [address] [place], [place] [address] Specialty Silverer Cardiology 02/16/24 Zia Zapien MD [address] [place] [phone] Specialty Silverer Cardiology 03/29/24 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 Specialty Start Date End Date Josef Garcia Chi [address] [place], [place] [id number] PCP - General Gerontology 02/16/24 Lorraine Rubio MD [address] [place] [address] Specialty Silverer Cardiology 02/16/24 Zia Zapien MD [address] [place] [phone] (Fax) Specialty Silverer Cardiology 03/29/24 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 Specialty Start Date End Date Josef Garcia Chi [address] [place], [place] [id number] PCP - General Gerontology 02/16/24 Lorraine Rubio MD [address] [place], [place] [id number] Specialty Silverer Cardiology 02/16/24 Zia Zapien MD [address] [place] [address] (Fax) Specialty Silverer Cardiology 03/29/24 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 Specialty Start Date End Date Josef Garcia Chi [address] [place], [place] [id number] PCP - General Gerontology 02/16/24 Lorraine Rubio MD [address] [place] [address] Specialty Silverer Cardiology 02/16/24 Zia Zapien MD [address] [place] [phone] Specialty Silverer Cardiology 03/29/24 Kemal Obregon MD [address] [place] [address] Hematology/Oncology 10/12/24 Team Status: Inactive Member Role Status Dates Dr. Josef Garcia MD Primary Care Provider Active Start: June 24, 2024 End: June 24, 2024 Dr. Lorraine Rubio MD Attending Provider Active Start: June 24, 2024 End: June 24, 2024 Dr. Lorraine Rubio MD Referring Provider Active Start: June 24, 2024 End: June 24, 2024 Team Status: Active Member Role Status Dates Dr. Josef Garcia MD Primary Care Provider Active Start: June 24, 2024 Dr. Angel Fritz MD Attending Provider Active S tart: June 24, 2024 Dr. Lorraine Rubio MD Referring Provider Active Start: June 24, 2024 Team Status: Inactive Member Role Status Dates Dr. Josef Garcia MD Primary Care Provider Active Start: June 30, 2024 End: June 30, 2024 Dr. Josef Garcia MD Attending Provider Active Start: June 30, 2024 End: June 30, 2024 Team Status: Inactive Member Role Status Dates Dr. Josef Garcia MD Primary Care Provider Active Start: August 03, 2024 End: August 03, 2024 Dr. Josef Garcia MD Attending Provider Active Start: August 03, 2024 End: August 03, 2024 Dr. Josef Garcia MD Referring Provider Active Start: August 03, 2024 End: August 03, 2024 Team Status: Inactive Member Role Status Dates Dr. Josef Garcia MD Primary Care Provider Active Start: August 09, 2024 End: August 09, 2024 Dr. Josef Garcia MD Attending Provider Active Start: August 09, 2024 End: August 09, 2024 Dr. Josef Garcia MD Referring Provider Active Start: August 09, 2024 End: August 09, 2024 Team Status: Inactive Member Role Status Dates Dr. Josef Garcia MD Primary Care Provider Active Start: October 11, 2024 End: October 11, 2024 Dr. Josef Garcia MD Attending Provider Active Start: October 11, 2024 End: October 11, 2024 Dr. Josef Garcia MD Referring Provider Active Start: October 11, 2024 End: October 11, 2024 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 Specialty Start Date End Date Jose Josef Dixon [address] [place], [place] [address] PCP - General Gerontology 02/16/24 Lorraine Rubio MD [address] [place], [place] [phone] Specialty Silverer Cardiology 02/16/24 Zia Zapien MD [address] [place] [phone] (Fax) Specialty Silverer Cardiology 03/29/24 Kemal Obregon MD [address] [place], [place] [address] Hematology/Oncology 10/12/24 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 Specialty Start Date End Date Josef Garcia Chi [address] [place] [address] PCP - General Gerontology 02/16/24 Lorraine Rubio MD [address] [place], [place] [id number] Specialty Silverer Cardiology 02/16/24 Zia Zapien MD [address] [place] [phone] Specialty Silverer Cardiology 03/29/24 Kemal Obregon MD [address] [place], [place] [address] Hematology/Oncology 10/12/24 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 Specialty Start Date End Date Josef Garcia Chi [address] [place] [address] PCP - General Gerontology 02/16/24 Lorraine Rubio MD [address] [place] [address] Specialty Silverer Cardiology 02/16/24 Zia Zapien MD [address] [place] [phone] Specialty Silverer Cardiology 03/29/24 Kemal Obregon MD [address] [place] [address] Hematology/Oncology 10/12/24 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 Specialty Start Date End Date Josef Garcia Chi [address] [place] [address] PCP - General Gerontology 02/16/24 Lorraine Rubio MD [address] [place] [address] Specialty Silverer Cardiology 02/16/24 Zia Zapien MD [address] [place] [address] Specialty Silverer Cardiology 03/29/24 Kemal Obregon MD [address] [place], [place] [address] Hematology/Oncology 10/12/24 Team Status: Inactive Member Role Status Dates Dr. Josef Garcia MD Primary Care Provider Active Start: October 24, 2024 End: October 24, 2024 Dr. Josef Garcia MD Attending Provider Active Start: October 24, 2024 End: October 24, 2024 Dr. Josef Garcia MD Referring Provider Active Start: October 24, 2024 End: October 24, 2024 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 Specialty Start Date End Date Jose Josef Dixon [address] [place], [place] [address] PCP - General Gerontology 02/16/24 Lorraine Rubio MD [address] [place], [place] [phone] Specialty Silverer Cardiology 02/16/24 Zia Zapien MD [address] [place] [phone] Specialty Silverer Cardiology 03/29/24 Kemal Obregon MD [address] [facility], [place] [address]31 Hematology/Oncology 10/12/24 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 Specialty Start Date End Date Jose Josef Dixon [address] [place], [place] [address] PCP - General Gerontology 02/16/24 Lorraine Rubio MD [address] [place], [place] [address] Specialty Silverer Cardiology 02/16/24 Zia Zapien MD [address] [place] [address] Specialty Silverer Cardiology 03/29/24 Kemal Obregon MD [address] [place] [address] Hematology/Oncology 10/12/24 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 Specialty Start Date End Date Josef Garcia Chi [address] [place] [address] PCP - General Gerontology 02/16/24 Lorraine Rubio MD [address] [place] [address] Specialty Silverer Cardiology 02/16/24 Zia Zapien MD [address] [phone] Specialty Silverer Cardiology 03/29/24 Kemal Obregon MD [address] [place] [address] Hematology/Oncology 10/12/24 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 Specialty Start Date End Date Josef Garcia Chi [address] [place] [address] PCP - General Gerontology 02/16/24 Lorraine Rubio MD [address] [place] [address] Specialty Silverer Cardiology 02/16/24 Zia Zapien MD [address] [phone] Specialty Silverer Cardiology 03/29/24 Kemal Obregon MD [address] [place], [place] [address] Hematology/Oncology 10/12/24 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 Specialty Start Date End Date Josef Garcia Chi [address] [place] [address] PCP - General Gerontology 02/16/24 Lorraine Rubio MD [address] [place] [address] Specialty Silverer Cardiology 02/16/24 Zia Zapien MD [address] [facility] [address] [place] [address] Specialty Silverer Cardiology 03/29/24 Kemal Obregon MD [address] [place] [address] Hematology/Oncology 10/12/24 Marlene Mcghee, RN [address] [place] [address] Specialty Sort Line Hematology/Oncology 10/31/24 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 Specialty Start Date End Date Josef Garcia Chi [address] [place] [address] PCP - General Gerontology 02/16/24 Lorraine Rubio MD [address] [place] [address] Specialty Silverer Cardiology 02/16/24 Zia Zapien MD [address] [place] [address] Specialty Silverer Cardiology 03/29/24 Kemal Obregon MD [address] [place] [address] Hematology/Oncology 10/12/24 Marlene Mcghee, ELIU [address] [place] [address] Specialty Sort Line Hematology/Oncology 10/31/24 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 Specialty Start Date End Date Josef Garcia Chi [address] [place] [address] PCP - General Gerontology 02/16/24 Lorraine Rubio MD [address] [place] [address] Specialty Silverer Cardiology 02/16/24 Zia Zapien MD [address] [place] [address] Specialty Silverer Cardiology 03/29/24 Kemal Obregon MD [address] [place] [address] Hematology/Oncology 10/12/24 Marlene Mcghee, ELIU [address] [place] [address] Specialty Sort Line Hematology/Oncology 10/31/24 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 Specialty Start Date End Date Josef Garcia Chi [address] [place] [address] PCP - General Gerontology 02/16/24 Lorraine Rubio MD [address] [place] [address] Specialty Silverer Cardiology 02/16/24 Zia Zapien MD [address] [place] [phone] (Fax) Specialty Silverer Cardiology 03/29/24 Kemal Obregon MD [address] [place] [address] Hematology/Oncology 10/12/24 Marlene Mcghee, ELIU [address] [place] [address] Specialty Sort Line Hematology/Oncology 10/31/24 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 Specialty Start Date End Date Jose, Josef Dixon [address] [place] [address] PCP - General Gerontology 02/16/24 Lorraine Rubio MD [address] [place] [address] Specialty Silverer Cardiology 02/16/24 Zia Zapien MD [address] [place] [phone] Specialty Silverer Cardiology 03/29/24 Kemal Obregon MD [address] [place] [address] Hematology/Oncology 10/12/24 Marlene Mcghee, ELIU [address] [place] [address] Specialty Sort Line Hematology/Oncology 10/31/24 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 Specialty Start Date End Date Josef Garcia Chi [address] [place] [address] PCP - General Gerontology 02/16/24 Lorraine Rubio MD [address] [place] [address] Specialty Silverer Cardiology 02/16/24 Zia Zapien MD [address] [place] [phone] (Fax) Specialty Silverer Cardiology 03/29/24 Kemal Obregon MD [address] [place] [address] Hematology/Oncology 10/12/24 Marlene Mcghee RN [address] [place] [address] Specialty Sort Line Hematology/Oncology 10/31/24 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 Specialty Start Date End Date Josef Garcia Chi [address] [place] [address] PCP - General Gerontology 02/16/24 Lorraine Rubio MD [address] [place], [place] [phone] Specialty Silverer Cardiology 02/16/24 Zia Zapien MD [address] [place] [phone] (Fax) Specialty Silverer Cardiology 03/29/24 Kemal Obregon MD [address] [place] [address] Hematology/Oncology 10/12/24 Marlene Mcghee, ELIU [address] [place] [address] Specialty Sort Line Hematology/Oncology 10/31/24 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 Specialty Start Date End Date Josef Garcia Chi [address] [place] [address] PCP - General Gerontology 02/16/24 Lorraine Rubio MD [address] [place] [address] Specialty Silverer Cardiology 02/16/24 Zia Zapien MD [address] [facility] [address] [place] [phone] Specialty Silverer Cardiology 03/29/24 Kemal Obregon MD [address] [place] [address] Hematology/Oncology 10/12/24 Marlene Mcghee, ELIU [address] [place] [address] Specialty Sort Line Hematology/Oncology 10/31/24 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 Specialty Start Date End Date Josef Garcia Chi [address] [place] [address] PCP - General Gerontology 02/16/24 Lorraine Rubio MD [address] [place] [address] Specialty Silverer Cardiology 02/16/24 Zia Zapien MD [address] [place] [address] Specialty Silverer Cardiology 03/29/24 Kemal Obregon MD [address] [place] [address] Hematology/Oncology 10/12/24 Marlene Mcghee, ELIU [address] [place] [address] Specialty Sort Line Hematology/Oncology 10/31/24 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 Specialty Start Date End Date Josef Garcia Chi [address] [place] [address] PCP - General Gerontology 02/16/24 Lorraine Rubio MD [address] [place] [address] Specialty Silverer Cardiology 02/16/24 Zia Zapien MD [address] [place] [place] [phone] (Fax) Specialty [facility] 03/29/24 Kemal Obregon MD [address] [place] [address] Hematology/Oncology 10/12/24 Marlene Mcghee, ELIU [address] [place] [address] Specialty Sort Line Hematology/Oncology 10/31/24 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 Specialty Start Date End Date Josef Garcia Chi [address] [place], [place] [address] PCP - General Gerontology 02/16/24 Lorraine Rubio MD [address] [place] [address] Specialty [facility] Cardiology 02/16/24 Zia Zapien MD [address] [place] [phone] Specialty [facility] Cardiology 03/29/24 Kemal Obregon MD [address] [place] [address] Hematology/Oncology 10/12/24 Marlene Mcghee, RN [address] [place] [address] Specialty Sort Line Hematology/Oncology 10/31/24 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 Specialty Start Date End Date Josef Garcia Chi [address] [place] [address] PCP - General Gerontology 02/16/24 Lorraine Rubio MD [address] [place] [address] Specialty [facility] Cardiology 02/16/24 Zia Zapien MD [address] [place] [phone] Specialty [facility] Cardiology 03/29/24 Kemal Obregon MD [address] [place] [address] Hematology/Oncology 10/12/24 Marlene Mcghee RN [address] [place] [address] Specialty Sort Line Hematology/Oncology 10/31/24 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 Specialty Start Date End Date Josef Garcia Chi [address] [place] [address] PCP - General Gerontology 02/16/24 Lorraine Rubio MD [address] [place] [address] Specialty [facility] Cardiology 02/16/24 Zia Zapien MD 224 [facility] 225 [place] [address] Specialty [facility] Cardiology 03/29/24 Kemal Obregon MD [address] [place] [address] Hematology/Oncology 10/12/24 Marlene Mcgehe RN [address] [place] [address] Specialty Sort Line Hematology/Oncology 10/31/24 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 Specialty Start Date End Date Josef Garcia Chi [address] [place] [address] PCP - General Gerontology 02/16/24 Lorraine Rubio MD [address] [place] [address] Specialty Sil[facility]r Cardiology 02/16/24 Zia Zapien MD [address] [place] [address] Specialty [facility] Cardiology 03/29/24 Kemal Obregon MD [address] [place] [address] Hematology/Oncology 10/12/24 Marlene Mcghee, ELIU [address] [place] [address] Specialty Sort Line Hematology/Oncology 10/31/24 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 Specialty Start Date End Date Josef Garcia Chi [address] [place] [address] PCP - General Gerontology 02/16/24 Lorraine Rubio MD [address] [place] [address] Specialty [facility]r Cardiology 02/16/24 Zia Zapien MD [address] [place] [address] Specialty Sil[facility] Cardiology 03/29/24 Kemal Obregon MD [address] [place] [address] Hematology/Oncology 10/12/24 Marlene Mcghee RN [address] [place] [address] Specialty Sort Line Hematology/Oncology 10/31/24 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 Specialty Start Date End Date Josef Garcia Chi [address] [place] [address] PCP - General Gerontology 02/16/24 Lorraine Rubio MD [address] [place] [address] Specialty Sil[facility]r Cardiology 02/16/24 Zia Zapien MD [address] [place] [address] (Fax) Specialty [facility] Cardiology 03/29/24 Kemal Obregon MD [address] [place] [address] Hematology/Oncology 10/12/24 Marlene Mcghee RN [address] [place] [address] Specialty Sort Line Hematology/Oncology 10/31/24 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 Specialty Start Date End Date Jose Josef Dixon [address] [place] [address] PCP - General Gerontology 02/16/24 Lorraine Rubio MD [address] [place] [address] Specialty [facility] Cardiology 02/16/24 Zia Zapien MD [address] [place] [phone] (Fax) Specialty [facility] Cardiology 03/29/24 Kemal Obregon MD [address] [place] [address] Hematology/Oncology 10/12/24 Marlene Mcghee RN [address] [place] [place] [address] Specialty Sort Line Hematology/Oncology 10/31/24 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 Specialty Start Date End Date Josef Garcia Chi [address] [facility] [address] [place] [address] PCP - General Gerontology 02/16/24 Lorraine Rubio MD [address] [place] [address] Specialty Sil[facility]r Cardiology 02/16/24 Zia Zapien MD [address] [place] [phone] Specialty Sil[facility] Cardiology 03/29/24 Kemal Obregon MD [address] [place] [place] [address] Hematology/Oncology 10/12/24 Marlene Mcghee, RN [address] [place] [place] [address] Specialty Sort Line Hematology/Oncology 10/31/24 Kay Munoz LISW [address] [place] [address] Hostess Host Hematology/Oncology 12/29/24 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 Specialty Start Date End Date Josef Garcia Chi [address] [facility] [address] [place] [address] PCP - General Gerontology 02/16/24 Lorraine Rubio MD [address] [facility] [address]A [place] [address] Specialty Sil[facility]r Cardiology 02/16/24 Zia Zapien MD [address] [place] [address] (Fax) Specialty [facility] Cardiology 03/29/24 Kemal Obregon MD [address] [place] [address] Hematology/Oncology 10/12/24 Marlene Mcghee RN [address] [place] [address] Specialty Sort Line Hematology/Oncology 10/31/24 Kay Munoz LISW [address] [place] [address] Hostess Host Hematology/Oncology 12/29/24 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 Specialty Start Date End Date Josef Garcia Zack [address] [place] [address] PCP - General Gerontology 02/16/24 Lorraine Rubio MD [address] [place] [address] Specialty [facility] Cardiology 02/16/24 Zia Zapien MD [address] [place] [address] (Fax) Specialty [facility] Cardiology 03/29/24 Kemal Obregon MD [address] [place] [address] Hematology/Oncology 10/12/24 Marlene Mcghee RN [address] [place] [address] Specialty Sort Line Hematology/Oncology 10/31/24 Kay Munoz LISW [address] [place] [address] Hostess Host Hematology/Oncology 12/29/24 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 Specialty Start Date End Date Josef Garcia Chi [address] [place] [address] PCP - General Gerontology 02/16/24 Lorraine Rubio MD [address] [place] [address] Specialty [facility] Cardiology 02/16/24 Zia Zapien MD [address] [place] [phone] Specialty [facility] Cardiology 03/29/24 Kemal Obregon MD [address] [facility] [place] [address] Hematology/Oncology 10/12/24 Marlene Mcghee, ELIU [address] [facility] [place] [address] Specialty Sort Line Hematology/Oncology 10/31/24 Kay Munoz LISW [address] [place] [address] Hostess Host Hematology/Oncology 12/29/24 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 Specialty Start Date End Date Josef Garcia Chi [address] [place] [address] PCP - General Gerontology 02/16/24 Lorraine Rubio MD [address] [place] [address] Specialty Sil[facility]r Cardiology 02/16/24 Zia Zapien MD [address] [place] [address] Specialty [facility] Cardiology 03/29/24 Kemal Obergon MD [address] [place] [address] Hematology/Oncology 10/12/24 Marlene Mcghee RN [address] [place] [address] Specialty Sort Line Hematology/Oncology 10/31/24 Kay Munoz LISW [address] [place] [address] Hostess Host Hematology/Oncology 12/29/24 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 Specialty Start Date End Date Josef Garcia Chi [address] [facility] 103 [place] [address] PCP - General Gerontology 02/16/24 Lorraine Rubio MD [address]61 [facility] 3A [place] [address] Specialty Sil[facility]r Cardiology 02/16/24 Zia Zapien MD [address] [place] [address] Specialty [facility] Cardiology 03/29/24 Kemal Obregon MD [address] [place] [address] Hematology/Oncology 10/12/24 Marlene Mcghee, ELIU [address] [place] [address] Specialty Sort Line Hematology/Oncology 10/31/24 Kay Munoz LISW [address] [place] [address] Hostess Host Hematology/Oncology 12/29/24 Team Status: Active Member Role Status Dates Dr. Josef Garcia MD Primary Care Provider Active Team Status: Inactive Member Role Status Dates Dr. Josef Garcia MD Primary Care Provider Active Start: October 24, 2024 End: October 24, 2024 Dr. Foster Malik MD Attending Provider Active S tart: October 24, 2024 End: October 24, 2024 Dr. Foster Malik MD Referring Provider Active S tart: October 24, 2024 End: October 24, 2024 Team Status: Inactive Member Role Status Dates Dr. Josef Garcia MD Primary Care Provider Active Start: January 05, 2025 End: January 05, 2025 Dr. Ash Nelson DO Referring Provider Activ e Start: January 05, 2025 End: January 05, 2025 Dr. Ash Nelson , DO Emergency Provider Activ e Start: January 05, 2025 End: January 05, 2025 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 Specialty Start Date End Date Josef Garcia Chi [address] [facility] 103 [place], [place] [address] PCP - General Gerontology 02/16/24 Lorraine Rubio MD 1761 [facility] 3A [place] [address] Specialty Sil[facility]r Cardiology 02/16/24 Zia Zapien MD [address] [facility] 225 [place] [phone] Specialty Silverer Cardiology 03/29/24 Kemal Obregon MD [address] [facility] [place] [address] Hematology/Oncology 10/12/24 Marlene Mcghee, ELIU [address] [facility] [place] [address] Specialty Sort Line Hematology/Oncology 10/31/24 Kay Munoz LISW [address] [place] [address] Hostess Host Hematology/Oncology 12/29/24 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 Specialty Start Date End Date Josef Garcia Chi [address] [place] [address] PCP - General Gerontology 02/16/24 Lorraine Rubio MD [address] [place] [address] Specialty Sil[facility]r Cardiology 02/16/24 Zia Zapien MD [address] [place] [address] Specialty Sil[facility]r Cardiology 03/29/24 Kemal Obregon MD [address] [place] [address] Hematology/Oncology 10/12/24 Marlene Mcghee, ELIU [address] [place] [address] Specialty Sort Line Hematology/Oncology 10/31/24 Kay Munoz LISW [address] [place] [address] Hostess Host Hematology/Oncology 12/29/24 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 Specialty Start Date End Date Josef Garcia Chi [address] [place] [address] PCP - General Gerontology 02/16/24 Lorraine Rubio MD [address] [place] [address] Specialty Sil[facility]r Cardiology 02/16/24 Zia Zapien MD [address] [place] [phone] Specialty [facility] Cardiology 03/29/24 Kemal Obregon MD [address] [place] [address] Hematology/Oncology 10/12/24 Marlene Mcghee RN [address] [place] [address] Specialty Sort Line Hematology/Oncology 10/31/24 Kay Munoz LISW [address] [place] [address] Hostess Host Hematology/Oncology 12/29/24 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 Specialty Start Date End Date Josef Garcia Chi [address] [place] [address] PCP - General Gerontology 02/16/24 Lorraine Rubio MD [address] [place] [address] Specialty Silverer Cardiology 02/16/24 Zia Zapien MD [address] [place] [phone] (Fax) Specialty [facility] Cardiology 03/29/24 Kemal Obregon MD [address] [place] [address] Hematology/Oncology 10/12/24 Marlene Mcghee RN [address] [place] [address] Specialty Sort Line Hematology/Oncology 10/31/24 Kay Munoz LISW [address] [place] [address] Hostess Host Hematology/Oncology 12/29/24 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 Specialty Start Date End Date Josef Garcia Chi [address] [place], [place] [address] PCP - General Gerontology 02/16/24 Lorraine Rubio MD [address] [place], [place] [address] Specialty Silverer Cardiology 02/16/24 Zia Zapien MD [address] [place] [address] (Fax) Specialty [facility]r Cardiology 03/29/24 Kemal Obregon MD [address] [place] [address] Hematology/Oncology 10/12/24 Marlene Mcghee, ELIU [address] [place] [address] Specialty Sort Line Hematology/Oncology 10/31/24 Kay Munoz LISW [address] [place] [address] Hostess Host Hematology/Oncology 12/29/24 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 Specialty Start Date End Date Josef Garcia Chi [address] [place] [address] PCP - General Gerontology 02/16/24 Lorraine Rubio MD [address] [place], [place] [address] Specialty Silverer Cardiology 02/16/24 Zia Zapien MD [address] [place] [phone] (Fax) Specialty Sil[facility]r Cardiology 03/29/24 Kemal Obregon MD [address] [place] [address] Hematology/Oncology 10/12/24 Marlene Mcghee, ELIU [address] [place] [address] Specialty Sort Line Hematology/Oncology 10/31/24 Kay Munoz LISW [address] [place] [address] Hostess Host Hematology/Oncology 12/29/24 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 Specialty Start Date End Date Josef Garcia Chi [address] [place] [address] PCP - General Gerontology 02/16/24 Lorraine Rubio MD [address] [facility] [address] [place] [address] Specialty Silverer Cardiology 02/16/24 Zia Zapien MD [address] [facility] 225 [place] [phone] Specialty Silverer Cardiology 03/29/24 Kemal Obregon MD [address] [place] [address] Hematology/Oncology 10/12/24 Marlene Mcghee, ELIU [address] [place] [address] Specialty Sort Line Hematology/Oncology 10/31/24 Kay Munoz LISW [address] [place] [address] Hostess Host Hematology/Oncology 12/29/24 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 Specialty Start Date End Date Josef Garcia Chi [address] [place] [address] PCP - General Gerontology 02/16/24 Lorraine Rubio MD [address] [place] [address] Specialty Silverer Cardiology 02/16/24 Zia Zapien MD [address] [place] [phone] Specialty Silverer Cardiology 03/29/24 Kemal Obregon MD [address] [place] [address] Hematology/Oncology 10/12/24 Marlene Mcghee RN [address] [place] [address] Specialty Sort Line Hematology/Oncology 10/31/24 Kay Munoz LISW [address] [place] [address] Hostess Host Hematology/Oncology 12/29/24 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 Specialty Start Date End Date Josef Garcia Zack [address] [place] [address] PCP - General Gerontology 02/16/24 Lorraine Rubio MD [address] [place] [address] Specialty Silverer Cardiology 02/16/24 Zia Zapien MD [address] [place] [phone] Specialty Silverer Cardiology 03/29/24 Kemal Obregon MD [address] [place] [address] Hematology/Oncology 10/12/24 Marlene Mcghee RN [address] [place] [address] Specialty Sort Line Hematology/Oncology 10/31/24 Kay Munoz LISW [address] [place] [address] Hostess Host Hematology/Oncology 12/29/24 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 Specialty Start Date End Date JoseJosef Chi [address] [place] [address] PCP - General Gerontology 02/16/24 Lorraine Rubio MD [address] [place] [address] Specialty Silverer Cardiology 02/16/24 Zia Zapien MD [address] [facility] [address] [place] [address] Specialty Silverer Cardiology 03/29/24 Kemal Obregon MD [address] [place] [address] Hematology/Oncology 10/12/24 Marlene Mcghee RN [address] [place] [address] Specialty Sort Line Hematology/Oncology 10/31/24 Kay Munoz LISW [address] [place] [address] Hostess Host Hematology/Oncology 12/29/24 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 Specialty Start Date End Date Josef Garcia Chi [address] [place] [address] PCP - General Gerontology 02/16/24 Lorraine Rubio MD [address] [place] [address] Specialty Silverer Cardiology 02/16/24 Zia Zapien MD [address] [place] [phone] (Fax) Specialty Silverer Cardiology 03/29/24 Kemal Obregon MD [address] [place] [address] Hematology/Oncology 10/12/24 Marlene Mcghee RN [address] [place] [address] Specialty Sort Line Hematology/Oncology 10/31/24 Kay Munoz LISW [address] [place] [address] Hostess Host Hematology/Oncology 12/29/24 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 Specialty Start Date End Date Josef Garcia Chi [address] [place] [address] PCP - General Gerontology 02/16/24 Lorraine Rubio MD [address] [place] [address] Specialty Silverer Cardiology 02/16/24 Zia Zapien MD [address] [place] [phone] (Fax) Specialty Silverer Cardiology 03/29/24 Kemal Obregon MD [address] [place] [address] Hematology/Oncology 10/12/24 Marlene Mcghee RN [address] [place] [address] Specialty Sort Line Hematology/Oncology 10/31/24 Kay Munoz LISW [address] [place] [address] Hostess Host Hematology/Oncology 12/29/24 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 Specialty Start Date End Date Josef Garcia Chi [address] [place] [address] PCP - General Gerontology 02/16/24 Lorraine Rubio MD [address] [place] [address] Specialty Silverer Cardiology 02/16/24 Zia Zapien MD [address] [facility] 225 [place] [address] Specialty Silverer Cardiology 03/29/24 Kemal Obregon MD [address] [place] [address] Hematology/Oncology 10/12/24 Marlene Mcghee RN [address] [place] [address] Specialty Sort Line Hematology/Oncology 10/31/24 Kay Munoz LISW [address] [place] [address] Hostess Host Hematology/Oncology 12/29/24 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 Specialty Start Date End Date Jose Josef Dixon [address] [place] [address] PCP - General Gerontology 02/16/24 Lorraine [place] MD [address] [place] [address] Specialty Silverer Cardiology 02/16/24 Zia Zapien MD [address] [place] [address] (Fax) Specialty Silverer Cardiology 03/29/24 Kemal Obregon MD [address] [place] [address] Hematology/Oncology 10/12/24 Marlene Mcghee RN [address] [place] [address] Specialty Sort Line Hematology/Oncology 10/31/24 Kay Munoz LISW [address] [place] [address] Hostess Host Hematology/Oncology 12/29/24 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 Specialty Start Date End Date Josef Garcia Chi [address] [place] [address] PCP - General Gerontology 02/16/24 Lorraine Rubio MD [address] [place] [address] Specialty Silverer Cardiology 02/16/24 Zia Zapien MD [address] [place] [address] (Fax) Specialty Silverer Cardiology 03/29/24 Kemal Obregon MD [address] [place] [address] Hematology/Oncology 10/12/24 Marlene Mcghee RN [address] [place] [address] Specialty Sort Line Hematology/Oncology 10/31/24 Kay Munoz LISW [address] [place] [address] Hostess Host Hematology/Oncology 12/29/24 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 Specialty Start Date End Date Josef Garcia Chi [address] [place] [address] PCP - General Gerontology 02/16/24 Lorraine [place] MD [address] [place] [address] Specialty Silverer Cardiology 02/16/24 Zia Zapien MD [address] [facility] 225 [place] [address] Specialty Silverer Cardiology 03/29/24 Kemal Obregon MD [address] [place] [address] Hematology/Oncology 10/12/24 Marlene Mcghee RN [address] [place] [address] Specialty Sort Line Hematology/Oncology 10/31/24 Kay Munoz LISW [address] [place] [address] Hostess Host Hematology/Oncology 12/29/24 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 Specialty Start Date End Date Josef Garcia Chi [address] [place] [address] PCP - General Gerontology 02/16/24 Lorraine Rubio MD [address] [place] [address] Specialty Silverer Cardiology 02/16/24 Zia Zapien MD [address] [place] [address] Specialty Silverer Cardiology 03/29/24 Kemal Obregon MD [address] [place] [address] Hematology/Oncology 10/12/24 Marlene Mcghee RN [address] [place] [address] Specialty Sort Line Hematology/Oncology 10/31/24 Kay Munoz LISW [address] [place] [address] Hostess Host Hematology/Oncology 12/29/24 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 Specialty Start Date End Date JoseJosef Chi [address] [place] [address] PCP - General Gerontology 02/16/24 Lorraine Rubio MD [address] [place] [address] Specialty Silverer Cardiology 02/16/24 Zia Zapien MD [address] [place] [phone] Specialty Silverer Cardiology 03/29/24 Kemal Obregon MD [address] [place] [address] Hematology/Oncology 10/12/24 Marlene Mcghee RN [address] [place] [address] Specialty Sort Line Hematology/Oncology 10/31/24 Kay Munoz LISW [address] [place] [address] Hostess Host Hematology/Oncology 12/29/24 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 Specialty Start Date End Date Josef Garcia Chi [address] [place] [address] PCP - General Gerontology 02/16/24 Lorraine Rubio MD [address] [place], [place] [address] Specialty Silverer Cardiology 02/16/24 Zia Zapien MD [address] [facility] [address] [place] [address] Specialty Silverer Cardiology 03/29/24 Kemal Obregon MD [address] [place] [place] [address] Hematology/Oncology 10/12/24 Marlene Mcghee, ELIU [address] [place] [address] Specialty Sort Line Hematology/Oncology 10/31/24 Kay Munoz LISW [address] [place] [address] Hostess Host Hematology/Oncology 12/29/[address] [place] [address] Nutrition 02/14/25 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 Specialty Start Date End Date Josef Garica Chi [address] [place] [address] PCP - General Gerontology 02/16/24 Lorraine Rubio MD [address] [place] [address] Specialty Silverer Cardiology 02/16/24 Zia Zapien MD [address] [place] [address] (Fax) Specialty Silverer Cardiology 03/29/24 Kemal Obregon MD [address] [facility] [place] [address] Hematology/Oncology 10/12/24 Marlene Mcghee, ELIU [address] [facility] [place] [address] Specialty Sort Line Hematology/Oncology 10/31/24 Kay Munoz LISW [address] [place] [address] Hostess Host Hematology/Oncology 12/29/24 Faustina Sánchez, MATEO [address] [place] [address] Nutrition 02/14/25 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 Specialty Start Date End Date Josef Garcia Chi [address]61 [facility] 103 [place] [address] PCP - General Gerontology 02/16/24 Lorraine [place] MD [address] [facility] [address] [place] [address] Specialty Silverer Cardiology 02/16/24 Zia Zapien MD [address] [place] [address] (Fax) Specialty Silverer Cardiology 03/29/24 Kemal Obregon MD [address] [place], [place] [address] Hematology/Oncology 10/12/24 Marlene Mcghee RN [address] [place] [address] Specialty Sort Line Hematology/Oncology 10/31/24 Kay Munoz LISW [address] [place] [address] Hostess Host Hematology/Oncology 12/29/[address] [place] [address] Nutrition 02/14/25 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 Specialty Start Date End Date Josef Garcia Chi [address] [facility] [address] [place] [address] PCP - General Gerontology 02/16/24 Lorraine [place] MD 1761 [facility] [address] [place] [address] Specialty Silverer Cardiology 02/16/24 Zia Zapien MD [address] [place] [address] Specialty Silverer Cardiology 03/29/24 Kemal Obregon MD [address] [place] [address] Hematology/Oncology 10/12/24 Marlene Mcghee RN [address] [place] [address] Specialty Sort Line Hematology/Oncology 10/31/24 Kay Munoz LISW [address] [place] [address] Hostess Host Hematology/Oncology 12/29/[address] [place] [address] Nutrition 02/14/25 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 Specialty Start Date End Date Josef Garcia Chi [address] [place], [place] [id number] PCP - General Gerontology 02/16/24 Lorraine Rubio MD [address] [facility] [address] [place], [place] [id number] Specialty Silverer Cardiology 02/16/24 Zia Zapien MD [address] [place] [address] Specialty Silverer Cardiology 03/29/24 Kemal Obregon MD [address] [place], [place] [id number] Hematology/Oncology 10/12/24 Marlene Mcghee, ELIU [address] [facility] [place], [place] [id number] Specialty Sort Line Hematology/Oncology 10/31/24 Kay Munoz LISW [address] [place] [address] Hostess Host Hematology/Oncology 12/29/[address] [place] [address] Nutrition 02/14/25 Team Status: Active Member Role/Relationship Status Dates Dr. Josef Garcia MD Primary Care Provider Active Team Status: Inactive Member Role/Relationship Status Dates Dr. Josef Garcia MD Primary Care Provider Active Start: January 05, 2025 End: January 05, 2025 Dr. Ash Nelson DO Attending Provider Activ e Start: January 05, 2025 End: January 05, 2025 Dr. Ash Nelson DO Referring Provider Activ e Start: January 05, 2025 End: January 05, 2025 Dr. Ash Nelson DO Emergency Provider Activ e Start: January 05, 2025 End: January 05, 2025 Team Status: Inactive Member Role/Relationship Status Dates Dr. Josef Garcia MD Primary Care Provider Active Start: February 17, 2025 End: February 17, 2025 Dr. Foster Malik MD Attending Provider Active S tart: February 17, 2025 End: February 17, 2025 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 Specialty Start Date End Date Josef Garcia Chi [address] [facility] [address] [place] [address] PCP - General Gerontology 02/16/24 Lorraine Rubio MD [address] [facility] [address] [place] [address] Specialty Silverer Cardiology 02/16/24 Zia Zapien MD [address] [facility] [address] [place] [phone] Specialty Silverer Cardiology 03/29/24 Kemal Obregon MD [address] [facility] [place] [address] Hematology/Oncology 10/12/24 Marlene Mcghee, ELIU [address] [place] [address] Specialty Sort Line Hematology/Oncology 10/31/24 Kay Munoz LISW [address] [place] [address] Hostess Host Hematology/Oncology 12/29/[address] [place] [address] Nutrition 02/14/25 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 Specialty Start Date End Date Josef Garcia Chi [address] [facility] [address] [place] [address] PCP - General Gerontology 02/16/24 Lorraine Rubio MD [address] [facility] [address] [place], [place] [address] Specialty Silverer Cardiology 02/16/24 Zia Zapien MD [address] [place] [phone] (Fax) Specialty Silverer Cardiology 03/29/24 Kemal Obregon MD [address] [place] [address] Hematology/Oncology 10/12/24 Marlene Mcghee RN [address] [place] [address] Specialty Sort Line Hematology/Oncology 10/31/24 Kay Munoz LISW [address] [place] [address] Hostess Host Hematology/Oncology 12/29/24 Faustina Sánchez, MATEO [address] [place] [address] Nutrition 02/14/25 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 Specialty Start Date End Date Josef Garcia Chi [address] [facility] [address] [place] [address] PCP - General Gerontology 02/16/24 Lorraine Rubio MD [address] [facility] [address] [place], [place] [id number] Specialty Silverer Cardiology 02/16/24 Zia Zapien MD [address] [place] [address] (Fax) Specialty Silverer Cardiology 03/29/24 Kemal Obregon MD [address] [place] [address] Hematology/Oncology 10/12/24 Marlene Mcghee, ELIU [address] [place] [address] Specialty Sort Line Hematology/Oncology 10/31/24 Kay Munoz LISW [address] [place] [address] Hostess Host Hematology/Oncology 12/29/[address] [place] [address] Nutrition 02/14/25 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 Specialty Start Date End Date Jose, Josef Dixon [address] [facility] 103 [place] [address] PCP - General Gerontology 02/16/24 Lorraine Rubio MD [address] [facility] [address] [place] [address] Specialty Silverer Cardiology 02/16/24 Zia Zapien MD [address] [facility] [address] [place] [address] Specialty Silverer Cardiology 03/29/24 Kemal Obregon MD [address] [place] [address] Hematology/Oncology 10/12/24 Marlene Mcghee, ELIU [address] [place] [address] Specialty Sort Line Hematology/Oncology 10/31/24 Kay Munoz LISW [address] [place] [address] Hostess Host Hematology/Oncology 12/29/24 Faustina Sánchez, MATEO [address] [place] [address] Nutrition 02/14/25 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 Specialty Start Date End Date Josef Garcia Chi [address] [place] [address] PCP - General Gerontology 02/16/24 Lorraine Rubio MD [address] [place], [place] [address] Specialty Silverer Cardiology 02/16/24 Zia Zapien MD [address] [facility] [address] [place] [address] Specialty Silverer Cardiology 03/29/24 Kemal Obregon MD [address] [place] [address] Hematology/Oncology 10/12/24 Marlene Mcghee, ELIU [address] [place] [address] Specialty Sort Line Hematology/Oncology 10/31/24 Kay Munoz LISW [address] [place] [address] Hostess Host Hematology/Oncology 12/29/24 Faustina Sánchez, MATEO [address] [place] [address] Nutrition 02/14/25 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 Specialty Start Date End Date Josef Garcia Chi [address] [place] [address] PCP - General Gerontology 02/16/24 Lorraine Rubio MD [address] [place], [place] [address] Specialty Silverer Cardiology 02/16/24 Zia Zapien MD [address] [place] [phone] Specialty Silverer Cardiology 03/29/24 Kemal Obregon MD [address] [place], [place] [address] Hematology/Oncology 10/12/24 Marlene Mcghee, ELIU [address] [facility] [address] [address] [place], [place] [address] Specialty Sort Line Hematology/Oncology 10/31/24 Kay Munoz LISW [address] [place] [address] Hostess Host Hematology/Oncology 12/29/[address] [place] [address] Nutrition 02/14/25 Source Comments (unrecognize d section and content) In the event this informatio n is protected by the Federal Confidentiality of Alcohol and Drug Abuse Patient Records regulations: The Federal rules restrict any use of the information to criminally investigate or prosecute any alcohol or drug abuse patient.[facility] CenterIn the event this information is protected by the Federal Confidentiality of Alcohol and Drug Abuse Patient Records regulations: The Federal rules restrict any use of the information to criminally investigate or prosecute any alcohol or drug abuse patient.[facility] CenterIn the event this information is protected by the Federal Confidentiality of Alcohol and Drug Abuse Patient Records regulations: The Federal rules restrict any use of the information to criminally investigate or prosecute any alcohol or drug abuse patient.[facility] CenterIn the event this information is protected by the Federal Confidentiality of Alcohol and Drug Abuse Patient Records regulations: The Federal rules restrict any use of the information to criminally investigate or prosecute any alcohol or drug abuse patient.[facility] CenterIn the event this information is protected by the Federal Confidentiality of Alcohol and Drug Abuse Patient Records regulations: The Federal rules restrict any use of the information to criminally investigate or prosecute any alcohol or drug abuse patient.[facility] CenterIn the event this information is protected by the Federal Confidentiality of Alcohol and Drug Abuse Patient Records regulations: The Federal rules restrict any use of the information to criminally investigate or prosecute any alcohol or drug abuse patient.[facility] CenterIn the event this information is protected by the Federal Confidentiality of Alcohol and Drug Abuse Patient Records regulations: The Federal rules restrict any use of the information to criminally investigate or prosecute any alcohol or drug abuse patient.[facility] CenterIn the event this information is protected by the Federal Confidentiality of Alcohol and Drug Abuse Patient Records regulations: The Federal rules restrict any use of the information to criminally investigate or prosecute any alcohol or drug abuse patient.[facility] CenterIn the event this information is protected by the Federal Confidentiality of Alcohol and Drug Abuse Patient Records regulations: The Federal rules restrict any use of the information to criminally investigate or prosecute any alcohol or drug abuse patient.[facility] CenterIn the event this information is protected by the Federal Confidentiality of Alcohol and Drug Abuse Patient Records regulations: The Federal rules restrict any use of the information to criminally investigate or prosecute any alcohol or drug abuse patient.[facility] CenterIn the event this information is protected by the Federal Confidentiality of Alcohol and Drug Abuse Patient Records regulations: The Federal rules restrict any use of the information to criminally investigate or prosecute any alcohol or drug abuse patient.[facility] CenterIn the event this information is protected by the Federal Confidentiality of Alcohol and Drug Abuse Patient Records regulations: The Federal rules restrict any use of the information to criminally investigate or prosecute any alcohol or drug abuse patient.[facility] CenterIn the event this information is protected by the Federal Confidentiality of Alcohol and Drug Abuse Patient Records regulations: The Federal rules restrict any use of the information to criminally investigate or prosecute any alcohol or drug abuse patient.[facility] CenterIn the event this information is protected by the Federal Confidentiality of Alcohol and Drug Abuse Patient Records regulations: The Federal rules restrict any use of the information to criminally investigate or prosecute any alcohol or drug abuse patient.[facility] CenterIn the event this information is protected by the Federal Confidentiality of Alcohol and Drug Abuse Patient Records regulations: The Federal rules restrict any use of the information to criminally investigate or prosecute any alcohol or drug abuse patient.[facility] CenterIn the event this information is protected by the Federal Confidentiality of Alcohol and Drug Abuse Patient Records regulations: The Federal rules restrict any use of the information to criminally investigate or prosecute any alcohol or drug abuse patient.[facility] CenterIn the event this information is protected by the Federal Confidentiality of Alcohol and Drug Abuse Patient Records regulations: The Federal rules restrict any use of the information to criminally investigate or prosecute any alcohol or drug abuse patient.[facility] CenterIn the event this information is protected by the Federal Confidentiality of Alcohol and Drug Abuse Patient Records regulations: The Federal rules restrict any use of the information to criminally investigate or prosecute any alcohol or drug abuse patient.[facility] CenterIn the event this information is protected by the Federal Confidentiality of Alcohol and Drug Abuse Patient Records regulations: The Federal rules restrict any use of the information to criminally investigate or prosecute any alcohol or drug abuse patient.[facility] CenterIn the event this information is protected by the Federal Confidentiality of Alcohol and Drug Abuse Patient Records regulations: The Federal rules restrict any use of the information to criminally investigate or prosecute any alcohol or drug abuse patient.[facility] CenterIn the event this information is protected by the Federal Confidentiality of Alcohol and Drug Abuse Patient Records regulations: The Federal rules restrict any use of the information to criminally investigate or prosecute any alcohol or drug abuse patient.[facility] CenterIn the event this information is protected by the Federal Confidentiality of Alcohol and Drug Abuse Patient Records regulations: The Federal rules restrict any use of the information to criminally investigate or prosecute any alcohol or drug abuse patient.[facility] CenterIn the event this information is protected by the Federal Confidentiality of Alcohol and Drug Abuse Patient Records regulations: The Federal rules restrict any use of the information to criminally investigate or prosecute any alcohol or drug abuse patient.[facility] CenterIn the event this information is protected by the Federal Confidentiality of Alcohol and Drug Abuse Patient Records regulations: The Federal rules restrict any use of the information to criminally investigate or prosecute any alcohol or drug abuse patient.[facility] CenterIn the event this information is protected by the Federal Confidentiality of Alcohol and Drug Abuse Patient Records regulations: The Federal rules restrict any use of the information to criminally investigate or prosecute any alcohol or drug abuse patient.[facility] CenterIn the event this information is protected by the Federal Confidentiality of Alcohol and Drug Abuse Patient Records regulations: The Federal rules restrict any use of the information to criminally investigate or prosecute any alcohol or drug abuse patient.[facility] CenterIn the event this information is protected by the Federal Confidentiality of Alcohol and Drug Abuse Patient Records regulations: The Federal rules restrict any use of the information to criminally investigate or prosecute any alcohol or drug abuse patient.[facility] CenterIn the event this information is protected by the Federal Confidentiality of Alcohol and Drug Abuse Patient Records regulations: The Federal rules restrict any use of the information to criminally investigate or prosecute any alcohol or drug abuse patient.[facility] CenterIn the event this information is protected by the Federal Confidentiality of Alcohol and Drug Abuse Patient Records regulations: The Federal rules restrict any use of the information to criminally investigate or prosecute any alcohol or drug abuse patient.[facility] CenterIn the event this information is protected by the Federal Confidentiality of Alcohol and Drug Abuse Patient Records regulations: The Federal rules restrict any use of the information to criminally investigate or prosecute any alcohol or drug abuse patient.[facility] CenterIn the event this information is protected by the Federal Confidentiality of Alcohol and Drug Abuse Patient Records regulations: The Federal rules restrict any use of the information to criminally investigate or prosecute any alcohol or drug abuse patient.[facility] CenterIn the event this information is protected by the Federal Confidentiality of Alcohol and Drug Abuse Patient Records regulations: The Federal rules restrict any use of the information to criminally investigate or prosecute any alcohol or drug abuse patient.[facility] CenterIn the event this information is protected by the Federal Confidentiality of Alcohol and Drug Abuse Patient Records regulations: The Federal rules restrict any use of the information to criminally investigate or prosecute any alcohol or drug abuse patient.[facility] CenterIn the event this information is protected by the Federal Confidentiality of Alcohol and Drug Abuse Patient Records regulations: The Federal rules restrict any use of the information to criminally investigate or prosecute any alcohol or drug abuse patient.[facility] CenterIn the event this information is protected by the Federal Confidentiality of Alcohol and Drug Abuse Patient Records regulations: The Federal rules restrict any use of the information to criminally investigate or prosecute any alcohol or drug abuse patient.[facility] CenterIn the event this information is protected by the Federal Confidentiality of Alcohol and Drug Abuse Patient Records regulations: The Federal rules restrict any use of the information to criminally investigate or prosecute any alcohol or drug abuse patient.[facility] CenterIn the event this information is protected by the Federal Confidentiality of Alcohol and Drug Abuse Patient Records regulations: The Federal rules restrict any use of the information to criminally investigate or prosecute any alcohol or drug abuse patient.[facility] CenterIn the event this information is protected by the Federal Confidentiality of Alcohol and Drug Abuse Patient Records regulations: The Federal rules restrict any use of the information to criminally investigate or prosecute any alcohol or drug abuse patient.[facility] CenterIn the event this information is protected by the Federal Confidentiality of Alcohol and Drug Abuse Patient Records regulations: The Federal rules restrict any use of the information to criminally investigate or prosecute any alcohol or drug abuse patient.[facility] CenterIn the event this information is protected by the Federal Confidentiality of Alcohol and Drug Abuse Patient Records regulations: The Federal rules restrict any use of the information to criminally investigate or prosecute any alcohol or drug abuse patient.[facility] CenterIn the event this information is protected by the Federal Confidentiality of Alcohol and Drug Abuse Patient Records regulations: The Federal rules restrict any use of the information to criminally investigate or prosecute any alcohol or drug abuse patient.[facility] CenterIn the event this information is protected by the Federal Confidentiality of Alcohol and Drug Abuse Patient Records regulations: The Federal rules restrict any use of the information to criminally investigate or prosecute any alcohol or drug abuse patient.[facility] CenterIn the event this information is protected by the Federal Confidentiality of Alcohol and Drug Abuse Patient Records regulations: The Federal rules restrict any use of the information to criminally investigate or prosecute any alcohol or drug abuse patient.[facility] CenterIn the event this information is protected by the Federal Confidentiality of Alcohol and Drug Abuse Patient Records regulations: The Federal rules restrict any use of the information to criminally investigate or prosecute any alcohol or drug abuse patient.[facility] CenterIn the event this information is protected by the Federal Confidentiality of Alcohol and Drug Abuse Patient Records regulations: The Federal rules restrict any use of the information to criminally investigate or prosecute any alcohol or drug abuse patient.[facility] CenterIn the event this information is protected by the Federal Confidentiality of Alcohol and Drug Abuse Patient Records regulations: The Federal rules restrict any use of the information to criminally investigate or prosecute any alcohol or drug abuse patient.[facility] CenterIn the event this information is protected by the Federal Confidentiality of Alcohol and Drug Abuse Patient Records regulations: The Federal rules restrict any use of the information to criminally investigate or prosecute any alcohol or drug abuse patient.[facility] CenterIn the event this information is protected by the Federal Confidentiality of Alcohol and Drug Abuse Patient Records regulations: The Federal rules restrict any use of the information to criminally investigate or prosecute any alcohol or drug abuse patient.[facility] CenterIn the event this information is protected by the Federal Confidentiality of Alcohol and Drug Abuse Patient Records regulations: The Federal rules restrict any use of the information to criminally investigate or prosecute any alcohol or drug abuse patient.[facility] CenterIn the event this information is protected by the Federal Confidentiality of Alcohol and Drug Abuse Patient Records regulations: The Federal rules restrict any use of the information to criminally investigate or prosecute any alcohol or drug abuse patient.[facility] CenterIn the event this information is protected by the Federal Confidentiality of Alcohol and Drug Abuse Patient Records regulations: The Federal rules restrict any use of the information to criminally investigate or prosecute any alcohol or drug abuse patient.[facility] CenterIn the event this information is protected by the Federal Confidentiality of Alcohol and Drug Abuse Patient Records regulations: The Federal rules restrict any use of the information to criminally investigate or prosecute any alcohol or drug abuse patient.[facility] CenterIn the event this information is protected by the Federal Confidentiality of Alcohol and Drug Abuse Patient Records regulations: The Federal rules restrict any use of the information to criminally investigate or prosecute any alcohol or drug abuse patient.[facility] CenterIn the event this information is protected by the Federal Confidentiality of Alcohol and Drug Abuse Patient Records regulations: The Federal rules restrict any use of the information to criminally investigate or prosecute any alcohol or drug abuse patient.[facility] CenterIn the event this information is protected by the Federal Confidentiality of Alcohol and Drug Abuse Patient Records regulations: The Federal rules restrict any use of the information to criminally investigate or prosecute any alcohol or drug abuse patient.[facility] CenterIn the event this information is protected by the Federal Confidentiality of Alcohol and Drug Abuse Patient Records regulations: The Federal rules restrict any use of the information to criminally investigate or prosecute any alcohol or drug abuse patient.[facility] CenterIn the event this information is protected by the Federal Confidentiality of Alcohol and Drug Abuse Patient Records regulations: The Federal rules restrict any use of the information to criminally investigate or prosecute any alcohol or drug abuse patient.[facility] CenterIn the event this information is protected by the Federal Confidentiality of Alcohol and Drug Abuse Patient Records regulations: The Federal rules restrict any use of the information to criminally investigate or prosecute any alcohol or drug abuse patient.[facility] CenterIn the event this information is protected by the Federal Confidentiality of Alcohol and Drug Abuse Patient Records regulations: The Federal rules restrict any use of the information to criminally investigate or prosecute any alcohol or drug abuse patient.[facility] CenterIn the event this information is protected by the Federal Confidentiality of Alcohol and Drug Abuse Patient Records regulations: The Federal rules restrict any use of the information to criminally investigate or prosecute any alcohol or drug abuse patient.[facility] CenterIn the event this information is protected by the Federal Confidentiality of Alcohol and Drug Abuse Patient Records regulations: The Federal rules restrict any use of the information to criminally investigate or prosecute any alcohol or drug abuse patient.[facility] CenterIn the event this information is protected by the Federal Confidentiality of Alcohol and Drug Abuse Patient Records regulations: The Federal rules restrict any use of the information to criminally investigate or prosecute any alcohol or drug abuse patient.[facility] CenterIn the event this information is protected by the Federal Confidentiality of Alcohol and Drug Abuse Patient Records regulations: The Federal rules restrict any use of the information to criminally investigate or prosecute any alcohol or drug abuse patient.[facility] CenterIn the event this information is protected by the Federal Confidentiality of Alcohol and Drug Abuse Patient Records regulations: The Federal rules restrict any use of the information to criminally investigate or prosecute any alcohol or drug abuse patient.[facility] CenterIn the event this information is protected by the Federal Confidentiality of Alcohol and Drug Abuse Patient Records regulations: The Federal rules restrict any use of the information to criminally investigate or prosecute any alcohol or drug abuse patient.[facility] CenterIn the event this information is protected by the Federal Confidentiality of Alcohol and Drug Abuse Patient Records regulations: The Federal rules restrict any use of the information to criminally investigate or prosecute any alcohol or drug abuse patient.[facility] CenterIn the event this information is protected by the Federal Confidentiality of Alcohol and Drug Abuse Patient Records regulations: The Federal rules restrict any use of the information to criminally investigate or prosecute any alcohol or drug abuse patient.[facility] CenterIn the event this information is protected by the Federal Confidentiality of Alcohol and Drug Abuse Patient Records regulations: The Federal rules restrict any use of the information to criminally investigate or prosecute any alcohol or drug abuse patient.[facility] CenterIn the event this information is protected by the Federal Confidentiality of Alcohol and Drug Abuse Patient Records regulations: The Federal rules restrict any use of the information to criminally investigate or prosecute any alcohol or drug abuse patient.[facility] CenterIn the event this information is protected by the Federal Confidentiality of Alcohol and Drug Abuse Patient Records regulations: The Federal rules restrict any use of the information to criminally investigate or prosecute any alcohol or drug abuse patient.[facility] CenterIn the event this information is protected by the Federal Confidentiality of Alcohol and Drug Abuse Patient Records regulations: The Federal rules restrict any use of the information to criminally investigate or prosecute any alcohol or drug abuse patient.[facility] CenterIn the event this information is protected by the Federal Confidentiality of Alcohol and Drug Abuse Patient Records regulations: The Federal rules restrict any use of the information to criminally investigate or prosecute any alcohol or drug abuse patient.[facility] CenterIn the event this information is protected by the Federal Confidentiality of Alcohol and Drug Abuse Patient Records regulations: The Federal rules restrict any use of the information to criminally investigate or prosecute any alcohol or drug abuse patient.[facility] CenterIn the event this information is protected by the Federal Confidentiality of Alcohol and Drug Abuse Patient Records regulations: The Federal rules restrict any use of the information to criminally investigate or prosecute any alcohol or drug abuse patient.[facility] CenterIn the event this information is protected by the Federal Confidentiality of Alcohol and Drug Abuse Patient Records regulations: The Federal rules restrict any use of the information to criminally investigate or prosecute any alcohol or drug abuse patient.[facility] CenterIn the event this information is protected by the Federal Confidentiality of Alcohol and Drug Abuse Patient Records regulations: The Federal rules restrict any use of the information to criminally investigate or prosecute any alcohol or drug abuse patient.[facility] CenterIn the event this information is protected by the Federal Confidentiality of Alcohol and Drug Abuse Patient Records regulations: The Federal rules restrict any use of the information to criminally investigate or prosecute any alcohol or drug abuse patient.[facility] CenterIn the event this information is protected by the Federal Confidentiality of Alcohol and Drug Abuse Patient Records regulations: The Federal rules restrict any use of the information to criminally investigate or prosecute any alcohol or drug abuse patient.[facility] CenterIn the event this information is protected by the Federal Confidentiality of Alcohol and Drug Abuse Patient Records regulations: The Federal rules restrict any use of the information to criminally investigate or prosecute any alcohol or drug abuse patient.[facility] CenterIn the event this information is protected by the Federal Confidentiality of Alcohol and Drug Abuse Patient Records regulations: The Federal rules restrict any use of the information to criminally investigate or prosecute any alcohol or drug abuse patient.[facility] CenterIn the event this information is protected by the Federal Confidentiality of Alcohol and Drug Abuse Patient Records regulations: The Federal rules restrict any use of the information to criminally investigate or prosecute any alcohol or drug abuse patient.[facility] CenterIn the event this information is protected by the Federal Confidentiality of Alcohol and Drug Abuse Patient Records regulations: The Federal rules restrict any use of the information to criminally investigate or prosecute any alcohol or drug abuse patient.[facility] CenterIn the event this information is protected by the Federal Confidentiality of Alcohol and Drug Abuse Patient Records regulations: The Federal rules restrict any use of the information to criminally investigate or prosecute any alcohol or drug abuse patient.[facility] CenterIn the event this information is protected by the Federal Confidentiality of Alcohol and Drug Abuse Patient Records regulations: The Federal rules restrict any use of the information to criminally investigate or prosecute any alcohol or drug abuse patient.[facility] CenterIn the event this information is protected by the Federal Confidentiality of Alcohol and Drug Abuse Patient Records regulations: The Federal rules restrict any use of the information to criminally investigate or prosecute any alcohol or drug abuse patient.[facility] CenterIn the event this information is protected by the Federal Confidentiality of Alcohol and Drug Abuse Patient Records regulations: The Federal rules restrict any use of the information to criminally investigate or prosecute any alcohol or drug abuse patient.[facility] CenterIn the event this information is protected by the Federal Confidentiality of Alcohol and Drug Abuse Patient Records regulations: The Federal rules restrict any use of the information to criminally investigate or prosecute any alcohol or drug abuse patient.[facility] CenterIn the event this information is protected by the Federal Confidentiality of Alcohol and Drug Abuse Patient Records regulations: The Federal rules restrict any use of the information to criminally investigate or prosecute any alcohol or drug abuse patient.[facility] CenterIn the event this information is protected by the Federal Confidentiality of Alcohol and Drug Abuse Patient Records regulations: The Federal rules restrict any use of the information to criminally investigate or prosecute any alcohol or drug abuse patient.[facility] CenterIn the event this information is protected by the Federal Confidentiality of Alcohol and Drug Abuse Patient Records regulations: The Federal rules restrict any use of the information to criminally investigate or prosecute any alcohol or drug abuse patient.[facility] CenterIn the event this information is protected by the Federal Confidentiality of Alcohol and Drug Abuse Patient Records regulations: The Federal rules restrict any use of the information to criminally investigate or prosecute any alcohol or drug abuse patient.[facility] CenterIn the event this information is protected by the Federal Confidentiality of Alcohol and Drug Abuse Patient Records regulations: The Federal rules restrict any use of the information to criminally investigate or prosecute any alcohol or drug abuse patient.[facility] CenterIn the event this information is protected by the Federal Confidentiality of Alcohol and Drug Abuse Patient Records regulations: The Federal rules restrict any use of the information to criminally investigate or prosecute any alcohol or drug abuse patient.[facility] CenterIn the event this information is protected by the Federal Confidentiality of Alcohol and Drug Abuse Patient Records regulations: The Federal rules restrict any use of the information to criminally investigate or prosecute any alcohol or drug abuse patient.[facility] CenterIn the event this information is protected by the Federal Confidentiality of Alcohol and Drug Abuse Patient Records regulations: The Federal rules restrict any use of the information to criminally investigate or prosecute any alcohol or drug abuse patient.[facility] Reason for Visit (unrecogniz ed section and content) Reason Comments Established Patient Specialty Diagnoses / Procedures Referred By Contac t Referred To Contact Diagnoses Malignant neoplasm of lower third of esophagus (HCC) Procedures LEUCOVORIN CALCIUM INJECTION PALONOSETRON HCL OXALIPLATIN FLUOROURACIL INJECTION DOCETAXEL INJECTION INJECTION, FULPHIKemal Oneal MD [address] [place] [address] Phone: tel: Kemal Obregon MD [address] [place] [address] Phone: tel: Referral ID Status Reason Start Date Expiration Date V isits Requested Visits Authorized [id number] Authorized 11/01/2024 07/19/2025 99 99 Reason Comments CADD Pump D/C Specialty Diagnoses / Procedures Referred By Contac Referred To Contact Hematology/Oncology / HEMATOLOGY/ONCOLOGY Diagnoses 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] Procedures NEULASTA(pegfilgrastim )INJECTION Kemal Obregon MD [address] [place] [address] Phone: tel: Wstr, Lab/[place] [facility] [address] [place] [address] Phone: tel: Referral ID Status Reason Start Date Expiration Date V isits Requested Visits Authorized [id number] New Request 12/08/2024 03/08/2025 99 99 Reason Comments New Patient Evaluation SSS Reason Comments Preparations For Procedures Reason Onset Date Comments Wound Check 03/29/2024 Reason Comments New Patient Reason Comments New Patient Evaluation Reason Comments Radiology CT Specialty Diagnoses / Procedures Referred By Contac t Referred To Contact CT IMAGING Diagnoses Malignant neoplasm of lower third of esophagus (HCC) Procedures CT BRAIN W IVCON CT HEAD/BRAIN W/CONTRAST MATERIAL Kemal Obregon MD [address] [place] [address] Phone: tel: [place] [phone] Referral ID Status Reason Start Date Expiration Date V isits Requested Visits Authorized [id number] Closed Auto-Generate d Referral 10/12/2024 11/11/2025 1 1 Reason Comments Radiology NM Reason Comments Future Appointment Reason Comments Sort Line - Other Introduction Reason Comments AVS 10/28 Reason Comments Medication Request Reason Comments Chemotherapy Treatment Specialty Diagnoses / Procedures Referred By Contac t Referred To Contact Diagnoses Malignant neoplasm of lower third of esophagus (HCC) Procedures LEUCOVORIN CALCIUM INJECTION PALONOSETRON HCL OXALIPLATIN FLUOROURACIL INJECTION DOCETAXEL INJECTION Kemal Obregon MD [address] [place] [address] Phone: tel: Kemal Obregon MD [address] [place] [address] Phone: tel: Referral ID Status Reason Start Date Expiration Date V isits Requested Visits Authorized [id number] Authorized 11/01/2024 10/28/2025 0 99 Reason Comments Care Coordination CYCLE 1/DAY 1 POST T REATMENT CALL Reason Comments Care Coordination Toxicity Check Reason Comments Blood Draw (CVAD) Reason Comments Social Work Services Reason Comments Consult Esophagus Adenocarci noma Reason Comments Nutrition Assessment Reason Comments Radiology NM Reason Comments AVS 12/27 Reason Comments Preparations For Surgery Reason Comments Follow Up Tests Results follow up CT Reason Comments Patient Update Reason Comments Appointment Reason Comments Non-Chemotherapy Treatment Specialty Diagnoses / Procedures Referred By Contac t Referred To Contact Diagnoses Iron deficiency anemia secondary to inadequate dietary iron intake Procedures IRON SUCROSE INJECTION PER 1 MG Damian Arreguin APRN.[employer] BUFFER [address] [facility] [address] [address] Phone: tel: fax: Hematology/Oncology [address] [place] [address] Phone: tel: fax: Referral ID Status Reason Start Date Expiration Date V isits Requested Visits Authorized [id number] Authorized 12/30/2024 12/30/2025 1 5 Reason Comments Spirometry Specialty Diagnoses / Procedures [facility] [place] Diagnoses Malignant neoplasm of lower third of esophagus (HCC) Procedures LUNG VOLUMES Renay Cloud MD [address] [place] [address] Phone: tel: fax: Respiratory [address] [address] Referral ID Status Reason Start Date Expiration Date V isits Requested Visits Authorized [id number] Closed Auto-Generate d Referral 12/15/2024 07/19/2025 1 1 Specialty Diagnoses / Procedures [facility] To [facility] [place] Diagnoses Malignant neoplasm of lower third of esophagus (HCC) Procedures LUNG DIFFUSION CAPACITY (DLCO) DIFFUSING CAPACITY Renay Cloud MD [address] [place] [address] Phone: tel: fax: [address] [address] Referral ID Status Reason Start Date Expiration Date V isits Requested Visits Authorized [id number] Closed Auto-Generate d Referral 12/15/2024 07/19/2025 1 1 Specialty Diagnoses / Procedures Referred By [facility] Referred To [facility] [place] Diagnoses Malignant neoplasm of lower third of esophagus (HCC) Procedures SPIROMETRY WITH DILATOR IF OBSTRUCTED BRNCDILAT RSPSE SPMTRY PRE&POST-BRNCDILAT ADMN Renay Cloud MD [address] [place] [id number] Phone: tel: fax: [address] [address] Referral ID Status Reason Start Date Expiration Date V isits Requested Visits Authorized [id number] Closed Auto-Generate d Referral 12/15/2024 07/19/2025 1 1 Reason Comments Care Coordination Dysphagia Future Appointment Reason Comments Care Coordination Follow up Note Reason Onset Date Comments Bronchoscopy Scheduling- CLEARED (before 01/23) Initial Bronch Request Reason Comments avs 01/10 Reason Comments Appointment PreOp Bronch Reason Comments Lung Eval Specialty Diagnoses / Procedures Referred By Cha t Referred To Contact ADMITTING Diagnoses 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] Procedures [facility] INCL FLUOR GDNCE DX W/CELL WASHG SPX BRONCHOSCOPY FLEXIBLE ADULT Admitting [address] [address] Referral ID Status Reason Start Date Expiration Date Visits Re quested Visits Authorized [id number] 1 1 Reason Comments Cardiac Clearance Reason Comments Sort Line - Hospital Follow Up Reason Comments Sort Line - Other Reason Onset Date Comments Refill Request 02/07/2025 Reason Comments Nutrition Telephone Reason Comments Nutrition Telephone No show Reason Comments Sort Line - Other Post Op Follow Up Week 4 FOR RECORDS PERTAINING TO PATIENTS WHO ARE OR HAVE BEEN ENROLLED IN A CHEMICAL DEPENDENCY/SUBSTANCEABUSE PROGRAM, SOME INFORMATION MAY BE OMITTED. This clinical summary was aggregated from multiple sources. Caution should be exercised in using it in the provision of clinical care. This summary normalizes information from multiple sources, and as a consequence, information in this document may materially change the coding, format and clinical context of patient data. In addition, data may be omitted in some cases. CLINICAL DECISIONS SHOULD BE BASED ON THE PRIMARY CLINICAL RECORDS. [employer] [facility]. provides no warranty or guarantee of the accuracy or completeness of information in this document.
[2025-05-26 06:31] LABS: Anion Gap 10 (5-15); BUN 16 mg/dL (4-19); BUN/Creat Ratio 28.1 RATIO (10-20); Calcium,Total 9.8 mg/dL (7.6-11.0); Carbon Dioxide 26.8 mmol/L (21.0-32.0); Chloride 103 mmol/L (98-108); Estimated Creatinine Clearance 101.11 ml/min (50-250); Glucose 136 mg/dL (70-99); Potassium 4.2 mmol/L (3.3-5.1)
[2025-05-26 07:36] LABS: Troponin T High Sensitivity 9 ng/L (<=22)
--- NOTE | 2025-05-26 08:16 | EDS_ITS ---
HPI History of Present Illness Chief Complaint: Chest Pain Narrative Narrative: Patient was seen and examined after presenting to ED for discomfort after eating ice cream patient has a history of esophageal cancer status post esophagectomy done at [facility] By Dr Cloud patient was having ice cream last night felt like he may have going somewhere I should not had a period they state that they contacted their cardiothoracic surgeon who recommended he go to the emergency department get a CT of his chest and to be called and notified of the results. [facility] Medical History Esophageal cancer Elective replacement indicated for pacemaker Pacemaker lead malfunction Renal stones Restless leg syndrome Other acute postprocedural pain Wears glasses Wears dentures Ambulates with cane Arthritis Easy bruising Restless legs Back pain Injury of head and neck Blackout Syncope History of diverticulitis Gastric reflux Smoker CPAP (continuous positive airway pressure) dependence COPD (chronic obstructive pulmonary disease) Shortness of breath on exertion Leg cramps History of pain when walking History of edema History of echocardiogram History of stress test History of pacemaker Cardiology follow-up encounter Smoker Dermatofibroma of chest Bone fracture Allergies Lumbar spondylosis Acute right flank pain (~03/26/22) GERD (gastroesophageal reflux disease) Kidney stones Back problem Sinus bradycardia Sinus arrest Syncope and collapse Sick sinus syndrome Presence of cardiac pacemaker Home Medications ?Medication ?Instructions ?Recorded ?Last Taken ?Type gabapentin 400 mg capsule 400 mg PO BID 06/26/22 Unkno wn History omeprazole 20 mg capsule,delayed 20 mg PO DAILY Unknown History release Allergy/AdvReac Type Severity Reaction Status Date / Time morphine AdvReac MAKES ME Verified 05/26/25 05:55 MAD Family History Mother Colon cancer Sister Breast cancer Sister Breast cancer Other CVA (cerebral vascular accident) Surgical History Hx of esophagomyotomy History of heart surgery Hx of colonoscopy History of esophagogastroduodenoscopy (EGD) Hx of cholecystectomy H/O inguinal hernia repair H/O cervical spine surgery Social History household members: spouse, children and other details: grandchildren housing: house current occupational status: unemployed pets and animals: No Smoking Status: Current every day smoker tobacco type: cigarettes alcohol intake: current alcohol intake frequency: holidays/special occasions only substance use type: does not use caffeine: Yes Type: carbonated beverages Number of servings: 3 and coffee N umber of servings: 1 what type of physical activity do you participate in: none seatbelt use: never do you feel safe at home: Yes additional social history: Does Take Ibuprofen As Needed Does Not Take Aspirin ROS ROS ED ROS Narrative Pertinent Positives: Discomfort in the chest after having ice cream status post esophagectomy for esophageal cancer Pertinent Negatives: Fevers chills shortness of breath nausea vomiting diarrhea The remainder of review of systems negative unless otherwise stated in the HPI above. Systems reviewed including constitutional, psychiatric, cardiovascular, respiratory, integument, HENT, gastrointestinal. EXAM Physical Exam Narrative Exam Narrative: Patient is afebrile hemodynamically stable does not appear toxic or in distress he is normocephalic and atraumatic. Normal heart sounds does have slight coarse sounds on the left. Intact and equal MSPs in his extremities no lower extremity calf tenderness or significant edema. Abdomen is soft nontender nondistended no palpable pulsatile masses mouth is clear Const Vital Signs: 05/26/25 05:52 05/26/25 06:51 05/26/25 07:00 Temperature 97.6 F L Temperature Source Axillary Pulse Rate 60 70 70 Respiratory Rate 12 16 16 Blood Pressure 143/64 H 83/50 L 83/50 L Blood Pressure Mean 90 61 61 Pulse Ox 100 95 95 Oxygen Delivery Method Room Air 05/26/25 07:54 Temperature Temperature Source Pulse Rate 64 Respiratory Rate 12 Blood Pressure 88/54 L Blood Pressure Mean 65 Pulse Ox 100 Oxygen Delivery Method MDM MDM MDM Narrative Medical decision making narrative: Nursing notes, triage notes, available previous documentation, and vital signs were reviewed. Any discrepancies noted were addressed. Differential Diagnoses: Low suspicion for ACS or infectious process or PE or aortic etiology need to consider the possibility of an aspiration type event or a pneumomediastinum Interventions: Dilaudid Zofran Fluids Given: 1 L normal saline Labs Reviewed: No leukocytosis leukopenia significant anemia electrolyte abnormality or renal insufficiency troponin was 9 Imaging Reviewed: Personally reviewed and interpreted by me: CT of his chest I do not see any obvious acute abnormality the official read is showing coronary artery calcifications some postsurgical changes but nothing acute he has a stable left adrenal nodule that is 2 cm in size EKG: Rate of [address] segment elevation it is sinus. EKG interpretation is noted and agreed to in the EMR. The interpretation of this patient's EKG contributed directly to the care and management of this patient. Previous Documentation Reviewed: None available or applicable at this time. ED Course: Patient presenting with irritation symptoms as stated above after having a screen patient was hemodynamically stable however while he was laying and resting his blood pressure did drop he was already receiving fluids he otherwise feels completely asymptomatic. He does not appear toxic he does not seem to be infectious we will discuss with his surgeon regarding the CT results. 0835: I spoke with patient was a cardiothoracic surgeon informed him of the results. He will follow-up outpatient with this patient. Patient's blood pressures come up into the 93/57 currently getting IV fluids seems to be responsive to it has absolutely no symptoms whatsoever and I went and discussed and reevaluated him he would like to go home he wants to go home when his IV fluids finish so barring any changes or complications in his visit patient will be discharged has been endorsed to oncoming physician. Of note patient did inf orm me that his blood pressure normally runs in the low 100s. This note was made utilizing voice recognition software. All attempts were made to correct spelling or other errors prior to note completion. However, due to the fast-paced nature of emergency medicine, some errors may still be present. Lab Data Labs: Laboratory Results - last 24 hr 05/26/25 06:00 WBC 9.3 RBC 4.03 L Hgb 12.0 L Hct 37.6 L MCV 93.3 MCH 29.8 MCHC 31.9 L RDW Std Deviation 54.0 H RDW Coeff of Reinier 15.6 H Plt Count 332 MPV 9.1 Immature Gran % (Auto) 0.300 Neut % (Auto) 70.9 H Lymph % (Auto) 22.4 [place] % (Auto) 6.2 Eos % (Auto) 0.1 Baso % (Auto) 0.1 Absolute Neuts (auto) 6.6 Absolute Lymphs (auto) 2.08 Nucleated RBC % 0 Sodium 140 Potassium 4.2 Chloride 103 Carbon Dioxide 26.8 Anion Gap 10 BUN 16 Creatinine 0.57 L Estim Creat Clear Calc 101.11 Est GFR (MDRD) Non-Af 109 BUN/Creatinine Ratio 28.1 H Glucose 136 H Calcium 9.8 Troponin T High Sens 9 D Radiography Diagnostic Testing: Clinical Impression(s) from Imaging Studies Chest CT 05/26/25 06:04 IMPRESSION: Coronary artery calcification (CAC) is present. Postsurgical changes. No acute or suspicious chest findings. Stable left adrenal nodule measures 2 cm. Reading Location: [facility] Discharge Plan Triage Chief Complaint: Chest Pain ED Provider: Martha Gaitan Dx/Rx/DC Orders Clinical Impression: Encounter for medical screening examination, Chest pain, non-cardiac, History of esophagectomy, History of esophageal cancer Instructions: Dysphagia Diet- Managing Foods Prescriptions: No Action gabapentin 400 mg capsule 400 mg PO BID omeprazole 20 mg capsule,delayed release(DR/EC) 20 mg PO DAILY Primary Care Provider: Josef Garcia Chi Referrals: Ish Cloud MD [Non-Staff, Surgery] - As soon as possible Josef Garcia Chi, MD [Primary Care Provider, Geriatrics] Activity Restrictions/Additional Instructions: I did discuss with your surgeon he would like you to follow-up in the outpatient setting. Please return if you are having any worsening symptoms whatsoever Print Language: Mohawk
[2025-05-26] MEDS: 0.9% Normal Saline (1000mL) 1,000 ML 999 ML IV ×2 (08:24→11:31)
[2025-05-26 08:38] LABS: Troponin T High Sens 2 HR 10 ng/L (<=22)
== END 2025-05-26 12:38 | disposition home or self-care (01) ==
PROVIDERS: Emergency Provider Specialist/Technologist Athletic Trainer; PCP Family Medicine Geriatric Medicine; Visit Provider Specialist/Technologist Athletic Trainer
DX: R07.89 Other chest pain (principal); J44.9 Chronic obstructive pulmonary disease, unspecified; I49.5 Sick sinus syndrome; K21.9 Gastro-esophageal reflux disease without esophagitis; G25.81 Restless legs syndrome; F17.210 Nicotine dependence, cigarettes, uncomplicated; Z95.0 Presence of cardiac pacemaker; Z87.19 Personal history of other diseases of the digestive system; Z85.01 Personal history of malignant neoplasm of esophagus; Z90.49 Acquired absence of other specified parts of digestive tract; Z79.899 Other long term (current) drug therapy
CPT/HCPCS: 71260; 80048; 84484; 85025; 93005; 96361; 96374; 96375; 96376; 99283; Q9967; A4216; J2405

== ENCOUNTER → 2025-07-11 | Outpatient (CLI) | payer MEDICARE, SELFPAY ==
[2025-07-11 14:00] LABS: Hematocrit 40.9 % (40-54); Hemoglobin 13.2 g/dL (13.0-16.5); Immature Granulocytes Count 0.020 X10^3/uL (0.0-0.0); Mean Corp Hgb Conc 32.3 g/dL (32-36); Mean Corpuscular Volume 92.3 fL (80-94); Mean Platelet Vol. 8.9 fl (6.2-12.0); NRBC Flagged by Analyzer 0 % (0-5); Platelet Count 263 K/mm3 (150-450); RBC Distribution Width CV 14.8 % (11.6-14.6); RBC Distribution Width SD 50.3 fl (35.1-43.9); Red Blood Count 4.43 M/mm3 (4.6-6.2); White Blood Count 8.1 K/mm3 (4.4-11.0)
[2025-07-11 15:45] LABS: AST(SGOT) 16 U/L (<=37); Alanine Aminotransfer ALT/SGPT 10 U/L (<=46); Albumin, Serum 4.0 g/dL (3.4-4.8); Alkaline Phosphatase 114 U/L (40-129); Anion Gap 8 (7-18); BUN 9 mg/dL (4-19); BUN/Creat Ratio 14.1 RATIO (10-20); Calcium,Total 9.6 mg/dL (7.6-11.0); Carbon Dioxide 27.9 mmol/L (20.0-29.0); Chloride 102 mmol/L (96-106); Globulin 3.1 g/dL (2.2-4.2); Glucose 103 mg/dL (70-99); Potassium 4.4 mmol/L (3.5-5.1)
[2025-07-11 21:37] LABS: Xtra Tube Kwok EXTRA TUBE
== END | disposition home or self-care (01) ==
LOC: POLAB3 13:36
PROVIDERS: PCP Family Medicine Geriatric Medicine; Visit Provider Family Medicine Geriatric Medicine
DX: I10 Essential (primary) hypertension (principal)
CPT/HCPCS: 36415; 80053; 84443; 85025